=== PATIENT | female | born 1960 | race Caucasian/White ===

== ENCOUNTER → 2016-11-23 | Outpatient (CLI) | payer MEDICARE ==
[~2016-11-23] MED LIST: ABILIFY PO; ACHD5005 PO; ALBUTEROL SULFATE IH; ALPR1T PO; ARIP2TAB10 PO; CHOL200018 PO; DRISDOL PO; DULO60CA6 PO; ESTR1TAB24 PO; ESTROGEN CREAM VG; LEVO175T6 PO; LISI1TAB78 PO; LSNP20T PO; MELO-195 PO; MELO7.5T PO; METH5TAB4 PO; NF-ESOM40C PO; NITR-65 PO; OMEG-12 PO; ONDAN4ODT PO; PNT40TEC PO; POTA10CA43 PO; PRAV80TA2 PO; QUET100T PO; SULF-222 PO; SULF1TAB38 PO; TRAM50TA2 PO; TRAZ150T42 PO; VENL150C PO; VENL75CA PO
--- NOTE | 2016-11-26 20:02 | Diagnostic Imaging Report ---
Bilateral screening mammogram. The current study was also evaluated with a Computer Aided Detection (CAD) system. INDICATION: Screening. No current complaints stated on the questionnaire. COMPARISON: 11/15/15. FINDINGS: The breasts are composed of scattered fibroglandular densities. Occasional benign-appearing calcifications are seen. Allowing for technique and positional differences, no suspicious change is seen. IMPRESSION: No significant change. ACR BI-RADS Category 2: Benign findings. Result letter will be mailed to the patient. Note: At least 10% of breast cancer is not imaged by mammography. Dictated by: Dictated on workstation # [id number]
== END ==
LOC: RAD 10:58
PROVIDERS: ATTEND Nurse Practitioner Community Health
DX: Z12.31 Encounter for screening mammogram for malignant neoplasm of breast (principal)
CPT/HCPCS: 77067

== ENCOUNTER → 2017-05-17 | Outpatient (CLI) | payer MEDICARE, MEDICAID ==
--- NOTE | 2017-05-17 13:17 | Diagnostic Imaging Report ---
PROCEDURE: CT head without contrast. TECHNIQUE: Multiple contiguous axial images were obtained through the brain without the use of intravenous contrast. INDICATION: Fell backwards in bathtub last Saturday. Dizzy. FINDINGS: Ventricles and cortical gyral pattern appear normal. There is no intracranial hemorrhage. There is no mass effect. No extra-axial fluid collections. Bone windows show no calvarial fractures. Mastoid air cells and paranasal sinuses are clear. IMPRESSION: Negative CT head without contrast. Dictated by: Dictated on workstation # [id number]
--- NOTE | 2017-05-20 09:49 | Diagnostic Imaging Report ---
PROCEDURE: US Carotid Duplex Bilateral. TECHNIQUE: Multiple Real-time grayscale images were obtained over the carotid arteries in various projections bilaterally. Additional duplex Doppler and color Doppler images were also obtained. INDICATION: Vertigo. Weakness. FINDINGS: Grayscale images demonstrate focal atherosclerotic plaque along the proximal internal carotid artery on the left side and no significant plaque on the right side. Color Doppler demonstrates patency of the common carotid, internal carotid, and external carotid arteries. Antegrade flow in the vertebral arteries is seen. The peak systolic velocities in the right ICA are 62, 52, and 33 cm/s and, on the left, are 70, 56, and 72 cm/s. The ICA/CCA ratios are up to 0.9 on the right side and up to 1.1 on the left. IMPRESSION: The estimated underlying stenosis is in the range of 0-40% bilaterally. Dictated by: Dictated on workstation # [id number]
== END ==
LOC: RAD 12:34
PROVIDERS: ATTEND Nurse Practitioner Community Health
DX: I65.23 Occlusion and stenosis of bilateral carotid arteries (principal); R42 Dizziness and giddiness; R41.0 Disorientation, unspecified; R53.1 Weakness
CPT/HCPCS: 70450; 93880

== ENCOUNTER 2017-09-27 11:51 | Emergency (ER) | payer MEDICAID, MEDICARE ==
[~2017-09-27] VITALS: Ht 162.6 cm; Wt 90.7 kg
[2017-09-27] MEDS ORDERED: NS IV 1000 ML 1,000 ML IV ONE ×2 (12:26→14:55)
--- NOTE | 2017-09-27 12:55 | ED Head Injury ---
General Chief Complaint: Trauma-Non Activation Stated Complaint: HIGH BP Nursing Triage Note: PT AMBULATES TO ROOM 10 PT STATES B/P ELEVATED, HAS HAD 2 FALLS IN PAST 24HOURS. PT STATES FEELS WEAK AND LETHARGIC. PT DENIES LOC W FALLS, PT HIT FOREHEAD ON COFFEE TABLE. SMALL ABRASION NOTED ON FOREHEAD Source: patient, other (friend) Exam Limitations: no limitations History of Present Illness Date Seen by Provider: Sep 27, 2017 Time Seen by Provider: 12:03 Initial Comments 57-year-old female patient presents to the emergency Department with reports of an elevated blood pressure of 180/90 at home earlier today. Patient has had 2 falls in the last 24 hours. Patient reports rolling over in bed and falling out. Reports hitting her head on the side table/coffee table. The last 4 days has noticed feeling progressively more weak and lethargic with rt arm weakness. Denies numbness, tingling, fever, chest pain, shortness of air. Denies right lower extremity weakness. Friend reports she was across the [place] from the patient. Reports patient has had multiple falls in the last several months. Location Injury Occurred: Home Occurred: other (Four-day onset.) Location: frontal Method of Injury: fell (Fell 2 in the last 24 hours.) Pain/Injuries: Forehead and right eye Loss of Consciousness: no loss of consciousness Allergies and Home Medications Allergies Uncoded Allergies: DYE (Allergy, Unknown, 10/26/14) Home Medications Alprazolam 1 Mg Tablet, 1 PO PRN, (Reported) Aripiprazole 2 Mg Tablet, 2 MG PO DAILY, (Reported) Cholecalciferol (Vitamin D3) 2,000 Unit Capsule, 2,000 UNIT PO DAILY, (Reported) Levothyroxine Sodium 175 Mcg Tablet, 100 MCG PO DAILY, (Reported) Lisinopril/Hydrochlorothiazide 1 Tab Tablet, 1 TAB PO DAILY, (Reported) Meloxicam 7.5 Mg Tablet, 15 MG PO DAILY, (Reported) Methylphenidate Hcl 5 Mg Tablet, 5 MG PO BID, (Reported) [place]-3/Dha/Epa/Fish Oil 1 Each Capsule.dr, 1 EACH PO TID, (Reported) Pantoprazole Sod 40 Mg Tab, 40 MG PO DAILY, (Reported) Potassium Chloride 10 Meq Capsule.sa, 10 MEQ PO DAILY, (Reported) Pravastatin Sodium 80 Mg Tablet, 40 MG PO DAILY, (Reported) Quetiapine Fumarate 100 Mg Tablet, 100 MG PO HS, (Reported) Trazodone Hcl 150 Mg Tablet, 150 MG PO DAILY, (Reported) Trimethoprim/Sulfamethoxazole 1 Ea Tablet, 1 EA PO BID, #14 Prescribed by: MALIA PIÑA on 01/08/151920 Venlafaxine HCl 75 Mg Cap.er.24h, 75 MG PO DAILY, (Reported) Venlafaxine Hcl 150 Mg Cap.sr.24h, 1 EACH PO DAILY, (Reported) [Abilify] , 5 MG PO DAILY, (Reported) [Albuterol Sulfate ] , 90 MCG IH Q6H, (Reported) [Estrogen Cream] , 0.625 MG VG DAILY, (Reported) Constitutional: No chills, No diaphoresis, No dizziness, No fever, malaise, other (fatigue) Eyes: See HPI, Denies Blindness, Denies Blurred Vision, Denies Drainage, Denies Decreased Acuity, Denies Foreign Body Sensation, Denies Inflammation, Pain (inferior to the rt eye.), Denies Photophobia, Denies Vision Changes, Glasses Ears, Nose, Mouth, Throat: denies ear pain, denies ear discharge, denies nose pain, denies mouth pain, denies loose teeth, denies throat pain Respiratory: No cough, No dyspnea on exertion, No hemoptysis, No orthopnea, No phlegm, No short of breath Cardiovascular: No chest pain, No edema, No palpitations, No syncope Gastrointestinal: No abdominal pain, No constipation, No diarrhea, No melena, No nausea, No vomiting Genitourinary: No decreased output, No dysuria, No frequency, No hematuria, No pain Musculoskeletal: No back pain, No joint pain, No neck pain, other (generalized muscle aching) Skin: No change in color, dryness, other (abrasion to the forehead and rt infraorbital ridge.) Psychiatric/Neurological: Cognitive Dysfunction (patient reports feeling "foggy " the last 4 days, but worse today.), Headache, Denies Numbness, Denies [place] Seizures, Denies Tingling, Denies Tonic Clonic Seizures, Denies Unable to Move Lower Ext, Denies Unable to Move Upper Ext, Weakness (weakness of the RUE.) Other (+) dry mouth. All Other Systems Reviewed Negative Unless Noted: Yes (Negative excepted noted.) Past Emxuajt-Erzjks-Yshclv Hx Patient Social History Alcohol Use: Denies Use Recreational Drug Use: No Smoking Status: Former Smoker Recent Foreign Travel: No Contact w/Someone Who Travel: No Recent Infectious Disease Expo: No Recent Hopitalizations: No Physical Abuse: No Sexual Abuse: No Immunizations Up To Date Date of Influenza Vaccine: Jul 26, 2014 Surgeries History of Surgeries: Yes (LT ELBOW REPAIR) Respiratory History of Respiratory Disorde: Yes (HX OF BRONCHITIS) Cardiovascular History of Cardiac Disorders: No Neurological History of Neurological Disord: No 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 Gastrointestinal History of Gastrointestinal Di: No Musculoskeletal History of Musculoskeletal Dis: No Endocrine History of Endocrine Disorders: Yes (PARTIAL THYROID) Psychosocial Suicide Risk Score: 0 Physical Exam Vital Signs Vital Sign - Last 12Hours 09/27/17 12:00 Temp 96.4 Pulse 51 Resp 22 B/P (MAP) 147/90 (109) Pulse Ox 99 Capillary Refill : Less Than 3 Seconds Progress/Results/Core Measures Results/Orders Lab Results Laboratory Tests Test 09/27/17 12:38 09/27/17 13:21 09/27/17 14:08 Range/Units Glucometer 176 H 70-110 MG/DL White Blood Count 11.5 H 4.3-11.0 10^3/uL Red Blood Count 4.45 4.35-5.85 10^6/uL Hemoglobin 14.1 11.5-16.0 G/DL Hematocrit 42 35-52 % Mean Corpuscular Volume 94 80-99 FL Mean Corpuscular Hemoglobin 32 25-34 PG Mean Corpuscular Hemoglobin Concent 34 32-36 G/DL Red Cell Distribution Width 15.1 H 10.0-14.5 % Platelet Count 194 130-400 10^3/uL Mean Platelet Volume 11.1 H 7.4-10.4 FL Neutrophils (%) (Auto) 59 42-75 % Lymphocytes (%) (Auto) 27 12-44 % Monocytes (%) (Auto) 12 0-12 % Eosinophils (%) (Auto) 2 0-10 % Basophils (%) (Auto) 1 0-10 % Neutrophils # (Auto) 6.7 1.8-7.8 X 10^3 Lymphocytes # (Auto) 3.1 1.0-4.0 X 10^3 Monocytes # (Auto) 1.4 H 0.0-1.0 X 10^3 Eosinophils # (Auto) 0.2 0.0-0.3 10^3/uL Basophils # (Auto) 0.1 0.0-0.1 10^3/uL Prothrombin Time 14.2 12.2-14.7 SEC INR Comment 1.1 0.8-1.4 Activated Partial Thromboplast Time 32 24-35 SEC Sodium Level 142 135-145 MMOL/L Potassium Level 3.2 L 3.6-5.0 MMOL/L Chloride Level 110 H 98-107 MMOL/L Carbon Dioxide Level 23 21-32 MMOL/L Anion Gap 9 5-14 MMOL/L Blood Urea Nitrogen 11 7-18 MG/DL Creatinine 1.13 0.60-1.30 MG/DL Estimat Glomerular Filtration Rate 49 BUN/Creatinine Ratio 10 Glucose Level 115 H 70-105 MG/DL Calcium Level 9.0 8.5-10.1 MG/DL Magnesium Level 2.2 1.8-2.4 MG/DL Total Bilirubin 0.4 0.1-1.0 MG/DL Aspartate Amino Transf (AST/SGOT) 11 5-34 U/L Alanine Aminotransferase (ALT/SGPT) < 6 0-55 U/L Alkaline Phosphatase 106 40-136 U/L Total Creatine Kinase 72 29-168 U/L Creatine Kinase MB 1.6 <6.6 NG/ML Myoglobin 70.7 10.0-92.0 NG/ML Troponin I < 0.30 <0.30 NG/ML B-Type Natriuretic Peptide 99.7 <100.0 PG/ML Total Protein 6.8 6.4-8.2 GM/DL Albumin 3.4 3.2-4.5 GM/DL TSH Harris Testing 0.87 0.35-4.94 UIU/ML Acetaminophen Level < 10 L 10-30 UG/ML Serum Alcohol < 10 <10 MG/DL Urine Color YELLOW Urine Clarity CLEAR Urine pH 6.5 5-9 Urine Specific [place] 1.010 L 1.016-1.022 Urine Protein NEGATIVE NEGATIVE Urine Glucose (UA) NEGATIVE NEGATIVE Urine Ketones NEGATIVE NEGATIVE Urine Nitrite NEGATIVE NEGATIVE Urine Bilirubin NEGATIVE NEGATIVE Urine Urobilinogen NORMAL NORMAL MG/DL Urine Leukocyte Esterase NEGATIVE NEGATIVE Urine RBC (Auto) 1+ H NEGATIVE Urine RBC NONE /HPF Urine WBC NONE /HPF Urine Squamous Epithelial Cells 5-10 /HPF Urine Crystals NONE /LPF Urine Bacteria NEGATIVE /HPF Urine Casts NONE /LPF Urine Mucus NEGATIVE /LPF Urine Culture Indicated NO Urine Opiates Screen NEGATIVE NEGATIVE Urine Oxycodone Screen NEGATIVE NEGATIVE Urine Methadone Screen NEGATIVE NEGATIVE Urine Propoxyphene Screen NEGATIVE NEGATIVE Urine Barbiturates Screen NEGATIVE NEGATIVE Ur Tricyclic Antidepressants Screen NEGATIVE NEGATIVE Urine Phencyclidine Screen NEGATIVE NEGATIVE Urine Amphetamines Screen NEGATIVE NEGATIVE Urine Methamphetamines Screen NEGATIVE NEGATIVE Urine Benzodiazepines Screen NEGATIVE NEGATIVE Urine Cocaine Screen NEGATIVE NEGATIVE Urine Cannabinoids Screen POSITIVE H NEGATIVE My Orders Orders - JIMBO TEJEDA PA Ct Head/Face/Cervical Wo (09/27/17 12:26) Accucheck Stat ONCE (09/27/17 12:26) Saline Lock/Iv-Start (09/27/17 12:26) Ekg Tracing (09/27/17 12:26) Monitor-Rhythm Ecg Trace Only (09/27/17 12:26) Chest 1 View, Ap/Pa Only (09/27/17 12:26) Ns Iv 1000 Ml (Sodium Chloride 0.9%) (09/27/17 12:26) Acetaminophen (09/27/17 12:26) Alcohol (09/27/17 12:26) BNP (09/27/17 12:26) Cbc With Automated Diff (09/27/17 12:26) Comprehensive Metabolic Panel (09/27/17 12:26) Creatine Kinase (09/27/17 12:26) Creatine Kinase Mb (09/27/17 12:26) Drug Screen Stat (Urine) (09/27/17 12:26) Magnesium (09/27/17 12:26) Protime With Inr (09/27/17 12:26) Partial Thromboplastin Time (09/27/17 12:26) Thyroid Analyzer (09/27/17 12:26) Troponin I (09/27/17 12:26) Ua Culture If Indicated (09/27/17 12:26) Myoglobin Serum (09/27/17 12:26) Ns Iv 1000 Ml (Sodium Chloride 0.9%) (09/27/17 14:55) Ns W/Kcl 20 Meq/L (Ns Iv W/Kcl 20 Meq/L) (09/27/17 15:14) Medications Given in ED Current Medications Medications Dose Ordered Sig/Dino Route Start Time Stop Time Status Last Admin Dose Admin Potassium Chloride/Sodium Chloride 1,000 ml @ ud STK-MED ONCE IV 09/27/17 15:14 09/27/17 15:16 DC 09/27/17 15:17 1,000 MLS/HR Sodium Chloride 1,000 ml @ 0 mls/hr Q0M ONCE IV 09/27/17 12:26 09/27/17 12:29 DC 09/27/17 12:44 1,000 MLS/HR Vital Signs/I&O Vital Sign - Last 12Hours 09/27/17 12:00 Temp 96.4 Pulse 51 Resp 22 B/P (MAP) 147/90 (109) Pulse Ox 99 Blood Pressure Mean: 109 Point of Care Testing Finger Stick Blood Glucose: 176 Departure Communication (Admissions) Progress Notes patient case discussed with Dr. Taylor. Impression Impression: Primary Impression: Minor head injury without loss of consciousness Additional Impressions: Multiple falls Volume depletion Marijuana use Essential hypertension History of difficulty sleeping Disposition: HOME, SELF-CARE Condition: Improved Departure-Patient Inst. Decision time for Depature: 18:07 Referrals: TONE IGNACIO DO (PCP) Primary Care Physician 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 (Family) Primary Care Physician Patient Instructions: Dehydration, Adult (DC), Minor Head Injury (DC), Preventing Falls, Preventing Falls in the Older Adult Add. Discharge Instructions: All discharge instructions reviewed with patient and/or family. Voiced understanding. Tylenol over the counter as directed for pain. Continue usual home medications. Avoid standing or walking quickly. Drink plenty of fluids. [facility] tomorrow or Saturday for recheck. Your doctors may want to decrease the amount of sedating mediations that you take to decrease your risk of falling. Ice packs as needed for pain for 2-3 days. then use a heating pad or pack as needed. Return to the emergency department for worsened pain, headache, dizziness, fever, vomiting, changes in behavior, slurred speech, numbness, weakness, neck pain, back pain, seizure, or any other concerns. JIMBO TEJEDA Sep 27, 2017 12:55
--- NOTE | 2017-09-27 13:17 | Diagnostic Imaging Report ---
PROCEDURE: CT head, face, and cervical spine without contrast. TECHNIQUE: Multiple contiguous axial images were obtained through the head, neck, and facial bones without the use of intravenous contrast. Sagittal and coronal reformations through the cervical spine and facial bones were also performed. INDICATION: Fall with head, face and neck injury. CT BRAIN: The ventricles and sulci are within normal limits. No sulcal effacement, midline shift or hemorrhage is detected. Cisterns are patent. IMPRESSION: No acute intracranial process is detected. CT MAXILLOFACIAL: The mandible is intact. Zygomatic arches are intact. The maxillary sinus gore are intact. No nasal bone fracture is detected. The orbital gore are unremarkable. Both globes are unremarkable. IMPRESSION: No evidence of facial bone fracture. CT CERVICAL SPINE: There is some straightening of the normal cervical lordotic curvature. There is multilevel degenerative disc disease, greatest C5-6 and C6-7 levels, with disc space narrowing and marginal spurring. No fractures are identified. The odontoid is intact. Prevertebral tissues are normal. IMPRESSION: Cervical spondylosis. No acute bony abnormality is detected. Dictated by: Dictated on workstation # [id number]
--- NOTE | 2017-09-27 13:27 | Diagnostic Imaging Report ---
INDICATION: Fall. TIME OF EXAM: 1:03 p.m. COMPARISON: Comparison is made with prior study from 09/11/2010. FINDINGS: Heart size is stable. Calcified lymph nodes in the claire are noted consistent with prior granulomatous exposure. No infiltrates are seen. No effusion or pneumothorax is identified. IMPRESSION: No acute cardiopulmonary process is detected. Dictated by: Dictated on workstation # [id number]
[2017-09-27 13:33] LABS: BASOPHILS # (AUTO) 0.1 10^3/uL (0.0-0.1); BASOPHILS % (AUTO) 1 % (0-10); EOSINOPHILS # (AUTO) 0.2 10^3/uL (0.0-0.3); EOSINOPHILS % (AUTO) 2 % (0-10); HEMATOCRIT 42 % (35-52); HEMOGLOBIN 14.1 G/DL (11.5-16.0); LYMPHOCYTES # (AUTO) 3.1 X 10^3 (1.0-4.0); LYMPHOCYTES % (AUTO) 27 % (12-44); MEAN CORPUSCULAR HEMOGLOBIN 32 PG (25-34); MEAN CORPUSCULAR HGB CONC 34 G/DL (32-36); MEAN CORPUSCULAR VOLUME 94 FL (80-99); MEAN PLATELET VOLUME 11.1 FL (7.4-10.4); MONOCYTES # (AUTO) 1.4 X 10^3 (0.0-1.0); MONOCYTES % (AUTO) 12 % (0-12); NEUTROPHILS # (AUTO) 6.7 X 10^3 (1.8-7.8); NEUTROPHILS % (AUTO) 59 % (42-75); PLATELET COUNT 194 10^3/uL (130-400); RED BLOOD COUNT 4.45 10^6/uL (4.35-5.85); RED CELL DISTRIBUTION WIDTH 15.1 % (10.0-14.5); WHITE BLOOD COUNT 11.5 10^3/uL (4.3-11.0)
[2017-09-27 13:44] LABS: INR 1.1 (0.8-1.4); PROTHROMBIN TIME PATIENT 14.2 SEC (12.2-14.7)
[2017-09-27 13:52] LABS: ALANINE AMINOTRANSFERASE < 6 U/L (0-55); ALBUMIN 3.4 GM/DL (3.2-4.5); ALKALINE PHOSPHATASE 106 U/L (40-136); BILIRUBIN,TOTAL 0.4 MG/DL (0.1-1.0); BUN/CREATININE RATIO 10; CARBON DIOXIDE 23 MMOL/L (21-32); CHLORIDE 110 MMOL/L (98-107); CREATINE KINASE 72 U/L (29-168); CREATININE SERUM 1.13 MG/DL (0.60-1.30); GFR ESTIMATED 49; GLUCOSE 115 MG/DL (70-105); MAGNESIUM 2.2 MG/DL (1.8-2.4); POTASSIUM 3.2 MMOL/L (3.6-5.0); SODIUM 142 MMOL/L (135-145); TOTAL PROTEIN 6.8 GM/DL (6.4-8.2)
[2017-09-27 14:07] LABS: ACETAMINOPHEN < 10 UG/ML (10-30)
[2017-09-27 14:12] LABS: CREATINE KINASE MB 1.6 NG/ML (<6.6); MYOGLOBIN SERUM 70.7 NG/ML (10.0-92.0); TSH (THYROID ANALYZER) 0.87 UIU/ML (0.35-4.94)
[2017-09-27 14:18] LABS: BILIRUBIN,URINE NEGATIVE (NEGATIVE); CLARITY,URINE CLEAR; COLOR,URINE YELLOW; GLUCOSE, URINE (UA) NEGATIVE (NEGATIVE); KETONES,URINE NEGATIVE (NEGATIVE); LEUKOCYTE ESTERASE ,URINE NEGATIVE (NEGATIVE); NITRITE,URINE NEGATIVE (NEGATIVE); PH,URINE 6.5 (5-9); PROTEIN,URINE NEGATIVE (NEGATIVE); UROBILINOGEN,URINE NORMAL (NORMAL)
[2017-09-27 14:34] LABS: AMPHETAMINE SCREEN, URINE NEGATIVE (NEGATIVE); BARBITURATE SCREEN URINE NEGATIVE (NEGATIVE); BENZODIAZEPINES SCREEN URINE NEGATIVE (NEGATIVE); CANNABINOID SCREEN, URINE POSITIVE (NEGATIVE); COCAINE SCREEN URINE NEGATIVE (NEGATIVE); METHAMPHETAMINE SCREEN URINE S NEGATIVE (NEGATIVE); OPIATE SCREEN URINE NEGATIVE (NEGATIVE); TRICYCLIC ANTIDEPRESSANTS SCRE NEGATIVE (NEGATIVE)
[2017-09-27 14:35] LABS: METHADONE STAT NEGATIVE (NEGATIVE); OXYCODONE STAT NEGATIVE (NEGATIVE); PROPOXYPHENE STAT NEGATIVE (NEGATIVE)
[2017-09-27 14:52] LABS: BACTERIA,URINE NEGATIVE /HPF
[2017-09-27] MEDS ORDERED: NS W/KCL 20 MEQ/L 1,000 ML IV ONE (15:14)
[2017-09-27 18:27] VITALS: BP 147/90
--- OUTSIDE RECORDS SUMMARY | 2017-09-29 06:23 | XMS REPORT ---
Author Author BILLY LAWRENCE Organization [employer] Address Unknown Phone Unavailable Care Team Providers Care Account Development Specialist Name Role Phone BILLY LAWRENCE Unavailable Allergies No Known Allergies Problems Problem Type Condition ICD-9 Code Onset Dates Condition Status Problem Chronic hepatitis C without mention of hepatic coma 070.54 Active Problem Major depressive disorder, recurrent episode, mild 296.31 Active Problem 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, chronic, without mention of hepatitis delta 070.32 Active Problem Attention deficit disorder of childhood without mention of hyperactivity 314.00 Active Problem Hypertension 401.9 Active Problem Lumbago 724.2 Active Problem Unspecified vitamin D deficiency 268.9 Active Problem Unspecified sleep apnea 780.57 Active Problem Major depressive disorder, recurrent episode, moderate 296.32 Active Medications Medication Code System Code Instructions Start Date End Date Status Dosage Ritalin [facility] [address]-97 20 MG Orally Twice a day November 17, 2014 1 tablet Results No Known Results Summary Purpose [employer] Submission
--- OUTSIDE RECORDS SUMMARY | 2017-09-29 06:23 | XMS REPORT ---
Author Author BILLY LAWRENCE Organization [employer] Address Unknown Phone Unavailable Care Team Providers Care Motor Coach Operator Name Role Phone BILLY LAWRENCE Unavailable Allergies No Known Allergies Problems Problem Type Condition Code Onset Dates Condition Status Problem Chronic [...] Start Date End Date Status Dosage Ritalin [facility] [address]-43 20 MG Orally Twice a day Purvi to sign for Osmar November 17, 2014 1 tablet Results No Known Results Summary Purpose [employer] Submission
--- OUTSIDE RECORDS SUMMARY | 2017-09-29 06:23 | XMS REPORT ---
Author Author 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 [facility] [employer] Address Unknown Phone Unavailable Care Team Providers Care Mine Development Engineer Name Role Phone 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 CP Unavailable Allergies No Known Allergies Problems Problem Type Condition Code Onset Dates Condition Status Problem Neuralgia M79.2 Active Problem Chronic hepatitis K73.9 Active Problem Primary osteoarthritis of both knees M17.0 Active Problem Depression, major, recurrent, mild F33.0 Active Problem Insomnia G47.00 Active Problem Low back pain M54.5 Active Problem Hyperlipidemia E78.5 Active Problem Hypertension I10 Active Problem Hypothyroidism, unspecified type E03.9 Active Problem ADD (attention deficit disorder) F90.0 Active Assessment Hypothyroid E03.9 Active Assessment Chronic hepatitis K73.9 Active Problem Lumbago 724.2 Active Problem Unspecified sleep apnea 780.57 Active Problem Chronic hepatitis C without mention of hepatic coma 070.54 Active Problem 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, chronic, without mention of hepatitis delta 070.32 Active Problem Unspecified vitamin D deficiency 268.9 Active Problem Hypertension 401.9 Active Medications No Known Medications Procedures Procedure Coding System Code Date LAB NOT BILLED BY [facility] CPT-4 NOBLL Jul 17, 2016 VENIPUNCT, ROUTINE* CPT-4 11406 Jul 17, 2016 HEPATITIS B, DNA, QUANT CPT-4 26590 Jul 17, 2016 Results Name Result Date Reference Range Unit Abnormality Flag HEP B DNA QUANT ----HBV IU/mL HBV DNA not detected [id number] IU/mL ----log10 HBV IU/mL TNP [id number]/mL ROUTINE VENIPUNCTURE TSH ----TSH 0.122 [id number] 0.450-4.500 uIU/mL L Summary Purpose [employer] Submission
--- OUTSIDE RECORDS SUMMARY | 2017-09-29 06:23 | XMS REPORT ---
Author Author NORMAN CARDOSO Organization [employer] Address Unknown Phone Unavailable Care Team Providers Care Electric Range Preparer Name Role Phone NORMAN CARDOSO CP Unavailable Allergies No Known Allergies Problems Problem Type Condition Code Onset Dates Condition Status Problem Unspecified vitamin D deficiency 268.9 Active Problem Major depressive disorder, recurrent episode, moderate 296.32 Active Problem Lumbago 724.2 Active Problem Major depressive disorder, recurrent episode, mild 296.31 Active Problem Chronic hepatitis C without mention of hepatic coma 070.54 Active Problem Primary osteoarthritis of both knees M17.0 Active Problem Neuralgia M79.2 Active Problem Chronic hepatitis K73.9 Active Problem Attention deficit disorder of childhood without mention of hyperactivity 314.00 Active Problem Unspecified sleep apnea 780.57 Active Problem Hypertension 401.9 Active Problem 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, chronic, without mention of hepatitis delta 070.32 Active Medications Medication Code System Code Instructions Start Date End Date Status Dosage Alprazolam [facility] [address]-25 0.5 MG Orally Three times a day prn ANXIETY must last 30 days NO EARLY REFILL TAKE ONE TABLET Results No Known Results Summary Purpose [employer] Submission
--- OUTSIDE RECORDS SUMMARY | 2017-09-29 06:23 | XMS REPORT ---
Author Author 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 Organization [facility] Address [address] [place] [address] Care Team Providers Care Electrical Design Technologist Name Role Phone 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 Unavailable PROBLEMS Type Condition ICD9-CM Code [id number] Code Onset Dates Condition Status SNOMED Code Problem Hypothyroid E03.9 Active 98191809 Problem 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 Active 73042848 Problem Obesity due to excess calories, unspecified obesity severity E66.09 Active 274993746 Problem Generalized anxiety disorder F41.1 Active 65162595 Problem Major depressive disorder, recurrent episode, moderate F33.1 Active 998455078 Problem Major depressive disorder, recurrent, mild F33.0 Active 34063494 Problem Obstructive sleep apnea G47.33 Active 94364021 Problem Restless legs G25.81 Active 44608124 Problem Attention-deficit hyperactivity disorder, predominantly inattentive type F90.0 Active 09454307 Problem Chronic hepatitis K73.9 Active 48638949 Problem Neuralgia M79.2 Active 27831018 Problem Folic acid deficiency E53.8 Active 424069428 Problem Primary osteoarthritis of both knees M17.0 Active 618517390 Problem Insomnia G47.00 Active 957350095 Problem Depression, major, recurrent, mild F33.0 Active 939400873 Problem Hypertension I10 Active 22219900 Problem Low back pain M54.5 Active 243257125 Problem Hyperlipidemia E78.5 Active 15441809 Problem Chronic viral hepatitis B without delta-agent B18.1 Active 955982061 ALLERGIES No Information SOCIAL HISTORY Never Assessed PLAN OF CARE VITAL SIGNS MEDICATIONS Unknown Medications RESULTS Name Result Date Reference Range TSH 2016-11-23 TSH 3.820 0.450-4.500 PROCEDURES Procedure Date Ordered Result Body Site LAB NOT BILLED BY [facility] November 23, 2016 VENIPUNCT, ROUTINE* November 23, 2016 IMMUNIZATIONS No Known Immunizations MEDICAL (GENERAL) HISTORY Type Description Date Medical History hypertension Medical History hyperlipidemia Medical History Hypothyroidism Medical History Arthritis Medical History chronic pain-OA left knee, lower back pain Medical History anxiety Medical History hepatitis B-dx 08/2014 Medical History asymptomatic postmenopausal status Medical History Eye exam 05/2015 sarah cataracts Surgical History orthopedic surgery-pin placed in right great toe Surgical History hysterectomy-[facility]/BSO for endometriosis Surgical History thyroid surgery-tumor removed (benign) Surgical History b/l knee scope Surgical History 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
--- OUTSIDE RECORDS SUMMARY | 2017-09-29 06:23 | XMS REPORT ---
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, chronic, without mention of hepatitis delta 070.32 Active Problem Neuralgia M79.2 Active Problem Hypertension 401.9 Active Problem Hypothyroidism, unspecified type E03.9 Active Problem ADD (attention deficit disorder) F90.0 Active Problem Insomnia G47.00 Active Problem Chronic hepatitis K73.9 Active Problem Primary osteoarthritis of both knees M17.0 Active Problem Hyperlipidemia E78.5 Active Problem Hypertension I10 Active Assessment Low back pain M54.5 Active Problem Major depressive disorder, recurrent episode, mild 296.31 Active Problem Lumbago 724.2 Active Problem Major depressive disorder, recurrent episode, moderate 296.32 Active Problem Chronic hepatitis C without mention of hepatic coma 070.54 Active Problem Unspecified sleep apnea 780.57 Active Problem Unspecified vitamin D deficiency 268.9 Active Problem Attention deficit disorder of childhood without mention of hyperactivity 314.00 Active Medications No Known Medications Procedures Procedure Coding System Code Date THERAPEUTIC EXERCISES CPT-4 71770 March 27, 2016 PT EVALUATION CPT-4 92668 March 27, 2016 Results No Known Results Summary Purpose eClinicalWorks Submission
--- OUTSIDE RECORDS SUMMARY | 2017-09-29 06:23 | XMS REPORT ---
Author THEODORA García Organization [employer] Address Unknown Phone Unavailable Care Team Providers Care Director Of Property Management Name Role Phone THEODORA SHINE CP Unavailable Allergies No Known Allergies Problems [...] E78.5 Active Problem Hypertension I10 Active Problem Chronic hepatitis C without mention of hepatic coma 070.54 Active Problem Unspecified vitamin D deficiency 268.9 Active Problem Lumbago 724.2 Active Problem Unspecified sleep apnea 780.57 Active Medications Medication Code System Code Instructions Start Date End Date Status Dosage Hydrocodone-Acetaminophen [facility] [address]-16 10-325 MG Orally 2 times a day March 15, 2016 1 tablet Results No Known Results Summary Purpose eClinicalWorks Submission
--- OUTSIDE RECORDS SUMMARY | 2017-09-29 06:23 | XMS REPORT ---
Author Author GUSTAVO COLEMAN Organization [facility] Address [address] [place] [address] Care Team Providers Care Attendance Secretary Name Role Phone GUSTAVO COLEMAN Unavailable PROBLEMS Type Condition ICD9-CM Code [id number] Code Onset Dates Condition Status SNOMED Code Problem Hypertension 401.9 Active 56573567 Problem Primary osteoarthritis of both knees M17.0 Active 548894240 Problem Neuralgia M79.2 Active 47711946 Problem Insomnia G47.00 Active 197321999 Problem Hypothyroidism, unspecified type E03.9 Active 24030678 Problem Hypertension I10 Active 01504278 Problem Chronic hepatitis K73.9 Active 12389862 Problem ADD (attention deficit disorder) F90.0 Active 251367564 Problem Hyperlipidemia E78.5 Active 16889061 Assessment Generalized anxiety disorder F41.1 May, Active 24825269 Problem Unspecified vitamin D deficiency 268.9 Active 59955640 Problem Lumbago 724.2 Active 053922976 Assessment Major depressive disorder, recurrent, moderate F33.1 May, Active 56125197 Problem Unspecified sleep apnea 780.57 Active 58519790 Problem Chronic hepatitis C without mention of hepatic coma 070.54 Active 559590280 Problem 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, chronic, without mention of hepatitis delta 070.32 Active 783559013 ALLERGIES Substance Reaction Event Type Date Status Trazodone HCl "weird dreams" Drug Allergy May, Active SOCIAL HISTORY No smoking Hx information available PLAN OF CARE VITAL SIGNS Height 64 in 2016-05-03 Weight 202.0 lbs 2016-05-03 Heart Rate 64 bpm 2016-05-03 Respiratory Rate 18 2016-05-03 BMI 34.67 kg/m2 2016-05-03 Blood pressure systolic 108 mmHg 2016-05-03 Blood pressure diastolic 72 mmHg 2016-05-03 MEDICATIONS Medication Instructions Dosage Frequency Start Date End Date Duration Status Fish Oil 1000 MG Orally 3 times a day 1 capsule 8h Active Requip 1 MG Orally Once a day 1 tablet 1 to 3 hours before bedtime 24h 90 Active Toprol XL 100 MG Orally Once a day 1 tablet at bedtime 24h 23 Jan, 2016 90 day(s) Active Albuterol Sulfate 90 mcg/actuation 2 puffs by Inhalation route every 4-6 hours as needed PRN cough or wheezing Aug, Active Effexor XR 150 MG Orally Once a day 2 capsule with food 24h Active Truvada 200-300 MG TAKE ONE TABLET BY MOUTH DAILY 90 Active Loratadine 10 mg Orally Once a day as needed for allergies 1 tablet Apr, Active Ritalin 10 mg Orally daily 1 tablet in am and 1 tab before 3pm 24h 18 Oct, 2014 Active Levothyroxine Sodium 125 MCG Orally Once a day 1 tablet 24h 30 days Active Pravastatin Sodium 80 MG TAKE ONE TABLET BY MOUTH AT BEDTIME (AVOID GRAPEFRUIT JUICE AND PRODUCTS WITH GRAPEFRUIT) 90 Active Hydrocodone-Acetaminophen 10-325 MG Orally 2 times a day 1 tablet 12h 14 Mar, 2016 Active Alprazolam 0.5 MG Orally Three times a day prn ANXIETY TAKE ONE TABLET Active Lisinopril 20 MG Orally Once a day 1 tablet 24h 30 Active Pantoprazole Sodium 40 MG Orally Once a day 1 tablet 24h 90 Active RESULTS No Results PROCEDURES Procedure Date Ordered Related Diagnosis Body Site [facility] VISIT ESTABLISHED PATIENT May 03, 2016 Office Visit, Justyna Pt., Level 3 May 03, 2016 IMMUNIZATIONS No Known Immunizations
--- OUTSIDE RECORDS SUMMARY | 2017-09-29 06:24 | XMS REPORT ---
Author Author 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 Organization [employer] Address Unknown Phone Unavailable Care Team Providers Care Filling Layer Up Name Role Phone 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 CP Unavailable [...] Instructions Start Date End Date Status Dosage Pantoprazole Sodium [facility] [address]-41 40 MG Orally Once a day 1 tablet Results No Known Results Summary Purpose eClinicalWorks Submission
--- OUTSIDE RECORDS SUMMARY | 2017-09-29 06:24 | XMS REPORT ---
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
--- OUTSIDE RECORDS SUMMARY | 2017-09-29 06:24 | XMS REPORT ---
Author Author TAYOLR CARVAJAL Organization [employer] Address Unknown Phone Unavailable Care Team Providers Care Retail Management Trainee Name Role Phone TAYLOR CARVAJAL CP Unavailable Allergies No Known Allergies Problems [...] Start Date End Date Status Dosage Alprazolam [facility] [address]-58 0.5 MG Orally Three times a day prn ANXIETY must last 30 days NO EARLY REFILL TAKE ONE TABLET Ambien CR [facility] [address]-36 12.5 MG Orally Once a day Aug 16, 2015 1 tablet at bedtime as needed Venlafaxine HCl ER [facility] [address]-84 150 MG TAKE ONE CAPSULE BY MOUTH ONCE DAILY WITH FOOD Results No Known Results Summary Purpose eClinicalWorks Submission
--- OUTSIDE RECORDS SUMMARY | 2017-09-29 06:24 | XMS REPORT ---
Author Author 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 [facility] Address [address] [place] [address] Care Team Providers Care Electoral Officer Name Role Phone 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 Unavailable PROBLEMS Type Condition ICD9-CM Code [id number] Code Onset Dates Condition Status SNOMED Code Problem Hypothyroid E03.9 Active 06683390 Problem 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 Active 63029850 Problem Obesity due to excess calories, unspecified obesity severity E66.09 Active 828656376 Problem Generalized anxiety disorder F41.1 Active 62152853 Problem Major depressive disorder, recurrent episode, moderate F33.1 Active 855419403 Problem Major depressive disorder, recurrent, mild F33.0 Active 36393368 Problem Obstructive sleep apnea G47.33 Active 48456897 Problem Restless legs G25.81 Active 19794803 Problem Attention-deficit hyperactivity disorder, predominantly inattentive type F90.0 Active 47948546 Problem Chronic hepatitis K73.9 Active 79454328 Problem Neuralgia M79.2 Active 04150656 Problem Folic acid deficiency E53.8 Active 001012495 Problem Primary osteoarthritis of both knees M17.0 Active 307546847 Problem Insomnia G47.00 Active 910828889 Problem Depression, major, recurrent, mild F33.0 Active 370995174 Problem Hypertension I10 Active 95238068 Problem Low back pain M54.5 Active 156623461 Problem Hyperlipidemia E78.5 Active 15796882 Problem Chronic viral hepatitis B without delta-agent B18.1 Active 930029703 ALLERGIES No Information SOCIAL HISTORY Never Assessed PLAN OF CARE VITAL SIGNS MEDICATIONS Medication Instructions Dosage Frequency Start Date End Date Duration Status Folic Acid 1 MG Orally Once a day 1 tablet 24h December, December, 90 days Active RESULTS No Results PROCEDURES No Known procedures IMMUNIZATIONS No Known Immunizations MEDICAL (GENERAL) HISTORY [...]
--- OUTSIDE RECORDS SUMMARY | 2017-09-29 06:24 | XMS REPORT ---
Author Author GUSTAVO COLEMAN Organization [employer] Address Unknown Phone Unavailable Care Team Providers Care Enterprise Applications Manager Name Role Phone GUSTAVO COLEMAN CP Unavailable Allergies No Known Allergies Problems [...] E78.5 Active Problem Hypertension I10 Active Problem Major depressive disorder, recurrent episode, mild 296.31 Active Problem Lumbago 724.2 Active Problem Major depressive disorder, recurrent episode, moderate 296.32 Active Problem Chronic hepatitis C without mention of hepatic coma 070.54 Active Problem Unspecified sleep apnea 780.57 Active Problem Unspecified vitamin D deficiency 268.9 Active Problem Attention deficit disorder of childhood without mention of hyperactivity 314.00 Active Medications Medication Code System Code Instructions Start Date End Date Status Dosage Ritalin [facility] [address]-64 10 mg Orally daily November 17, 2014 1 tablet in am and 1 tab before 3pm Results No Known Results Summary Purpose eClinicalWorks Submission
--- OUTSIDE RECORDS SUMMARY | 2017-09-29 06:24 | XMS REPORT ---
Author Author 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 Organization [facility] Address [address] [place] [address] Care Team Providers Care Storage Battery Inspector Name Role Phone 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 Unavailable PROBLEMS Type Condition ICD9-CM Code [id number] Code Onset Dates Condition Status SNOMED Code Problem Hypothyroid E03.9 Active 40469822 Problem 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 Active 09035552 Problem Obesity due to excess calories, unspecified obesity severity E66.09 Active 411498663 Problem Generalized anxiety disorder F41.1 Active 75106091 Problem Major depressive disorder, recurrent episode, moderate F33.1 Active 032037344 Problem Major depressive disorder, recurrent, mild F33.0 Active 24842900 Problem Obstructive sleep apnea G47.33 Active 15323605 Problem Restless legs G25.81 Active 97603266 Problem Attention-deficit hyperactivity disorder, predominantly inattentive type F90.0 Active 48008476 Problem Chronic hepatitis K73.9 Active 70575847 Problem Neuralgia M79.2 Active 08708747 Problem Folic acid deficiency E53.8 Active 571889461 Problem Primary osteoarthritis of both knees M17.0 Active 782265905 Problem Insomnia G47.00 Active 479678160 Problem Depression, major, recurrent, mild F33.0 Active 013341821 Problem Hypertension I10 Active 47580220 Problem Low back pain M54.5 Active 888099386 Problem Hyperlipidemia E78.5 Active 69758899 Problem Chronic viral hepatitis B without delta-agent B18.1 Active 469162649 ALLERGIES No Information SOCIAL HISTORY Never Assessed PLAN OF CARE VITAL SIGNS MEDICATIONS Unknown Medications RESULTS No Results PROCEDURES No Known procedures [...]
--- OUTSIDE RECORDS SUMMARY | 2017-09-29 06:24 | XMS REPORT ---
Author Author GUSTAVO COLEMAN Organization [employer] Address Unknown Phone Unavailable Care Team Providers Care Food Preservation Scientist Name Role Phone GUSTAVO COLEMAN CP Unavailable [...] Instructions Start Date End Date Status Dosage Methylphenidate HCl [facility] [address]-48 10 mg Orally Twice a day 1 tablet Results No Known Results Summary Purpose eClinicalWorks Submission
--- OUTSIDE RECORDS SUMMARY | 2017-09-29 06:24 | XMS REPORT ---
Author CHAPITO Melo Organization [employer] Address Unknown Phone Unavailable Care Team Providers Care Pewter Finisher Name Role Phone CHAPITO VINSON CP Unavailable [...] Coding System Code Date THERAPEUTIC EXERCISES CPT-4 43121 Jun 19, 2016 Results No Known Results Summary Purpose eClinicalWorks Submission
--- OUTSIDE RECORDS SUMMARY | 2017-09-29 06:24 | XMS REPORT ---
Author TAYLOR Hurd [facility] [employer]ClinicalWorks Address Unknown Phone Unavailable Care Team Providers Care Letterer Name Role Phone TAYLOR CARVAJAL CP Unavailable Allergies, Adverse Reactions, Alerts Substance Reaction Event Type N.K.D.A. Info Not Available Non Drug Allergy Problems Problem Type Condition Code Onset Dates [...] E78.5 Active Problem Hypertension I10 Active Assessment Major depressive disorder, recurrent episode, mild 296.31 Active Problem Major depressive disorder, recurrent episode, mild 296.31 Active Assessment Hyperlipidemia E78.5 Active Assessment ADD (attention deficit disorder) F90.0 Active Problem Lumbago 724.2 Active Problem Major depressive disorder, recurrent episode, moderate 296.32 Active Problem Chronic hepatitis C without mention of hepatic coma 070.54 Active Problem Unspecified sleep apnea 780.57 Active Problem Unspecified vitamin D deficiency 268.9 Active Problem Attention deficit disorder of childhood without mention of hyperactivity 314.00 Active Medications Medication Code System Code Instructions Start Date End Date Status Dosage Truvada [facility] [id number] 200-300 MG TAKE ONE TABLET BY MOUTH DAILY Venlafaxine HCl ER [facility] [address]-93 150 MG TAKE ONE CAPSULE BY MOUTH ONCE DAILY WITH FOOD Rexulti [facility] [address]-57 0.5 MG Orally Once a day Sep 16, 2015 1 tablet Alprazolam [facility] [address]-11 0.5 MG Orally Three times a day prn ANXIETY TAKE ONE TABLET Fish Oil [facility] [address]-20 1000 MG Orally 3 times a day 1 capsule Ritalin [facility] [address]-08 20 mg Orally Twice a day November 17, 2014 1 tablet Pravastatin Sodium [facility] [address]-34 80 MG Orally Once a day TAKE ONE TABLET BY MOUTH DAILY AT BEDTIME (AVOID GRAPEFRUIT JUICE AND PRODUCTS WITH GRAPEFRUIT) Zaleplon [facility] [address]-32 5 MG Orally Once a day December 07, 2015 1 capsule at bedtime as needed Lisinopril [facility] 66295089712 20 MG Orally Once a day 1 tablet Cholecalciferol [facility] [address]-45 2000 UNIT Orally Once a day 1 capsule Albuterol Sulfate [facility] [address]-42 90 mcg/actuation Aug 24, 2014 2 puffs by Inhalation route every 4-6 hours as needed PRN cough or wheezing Levothyroxine Sodium [facility] [address]-07 100 MCG Orally Once a day 1 tablet Requip [facility] [address]-37 1 MG Orally Once a day November 08, 2015 1 tablet 1 to 3 hours before bedtime Xyzal [facility] [address]-44 5 mg November 09, 2014 1 tablet by Oral route 1 time per day PRN prn cough Effexor XR [facility] [address]-40 75 MG TAKE ONE CAPSULE BY MOUTH ONCE DAILY WITH FOOD Toprol XL [facility] [address]-32 100 MG Orally Once a day at hs LAST REFILL PT MUST HAVE AN APPT November 17, 2014 take 1 tablet by Oral route 2 times a day Pantoprazole Sodium [facility] [address]-86 40 MG Orally Once a day 1 tablet Procedures Procedure Coding System Code Date Office Visit, Est Pt., Level 2 CPT-4 35021 December 16, 2015 [facility] VISIT ESTABLISHED PATIENT CPT-4 G0467 December 16, 2015 Vital Signs Date/Time: December 16, 2015 Temperature 98.0 F Weight 197 lbs Height 64 in BMI 33.81 Index Blood Pressure Diastolic 72 mmHg Blood Pressure Systolic 120 mmHg Cardiac Monitoring Heart Rate 70 bpm Results No Known Results Summary Purpose eClinicalWorks Submission
--- OUTSIDE RECORDS SUMMARY | 2017-09-29 06:24 | XMS REPORT ---
Author Author NORMAN CARDOSO Organization [employer]Works Address Unknown Phone Unavailable Care Team Providers Care College Archivist Name Role Phone NORMAN CARDOSO CP Unavailable [...] Start Date End Date Status Dosage Ritalin [facility] [address]-36 20 MG Orally Twice a day November 17, 2014 1 tablet Results No Known Results Summary Purpose eClinicalWorks Submission
--- OUTSIDE RECORDS SUMMARY | 2017-09-29 06:24 | XMS REPORT ---
Author Author NORMAN CARDOSO Organization [employer] Address Unknown Phone Unavailable Care Team Providers Care Internet Project Manager Name Role Phone NORMAN CARDOSO CP Unavailable [...] Start Date End Date Status Dosage Ritalin [facility] [address]-08 20 MG Orally Twice a day November 17, 2014 1 tablet Results No Known Results Summary Purpose eClinicalWorks Submission
--- OUTSIDE RECORDS SUMMARY | 2017-09-29 06:24 | XMS REPORT ---
Author Author 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 Organization [facility] Address [address] [place] [address] Care Team Providers Care Front Desk Assistant Name Role Phone 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 Unavailable PROBLEMS Type Condition ICD9-CM Code [id number] Code Onset Dates Condition Status SNOMED Code Problem Hypothyroid E03.9 Active 53332803 Problem 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 Active 95718503 Problem Obesity due to excess calories, unspecified obesity severity E66.09 Active 889419230 Problem Generalized anxiety disorder F41.1 Active 39671926 Problem Major depressive disorder, recurrent episode, moderate F33.1 Active 716219530 Problem Major depressive disorder, recurrent, mild F33.0 Active 98160607 Problem Obstructive sleep apnea G47.33 Active 22464558 Problem Restless legs G25.81 Active 98420288 Problem Attention-deficit hyperactivity disorder, predominantly inattentive type F90.0 Active 71092469 Problem Chronic hepatitis K73.9 Active 89191362 Problem Neuralgia M79.2 Active 86681746 Problem Folic acid deficiency E53.8 Active 982244021 Problem Primary osteoarthritis of both knees M17.0 Active 692254843 Problem Insomnia G47.00 Active 222282201 Problem Depression, major, recurrent, mild F33.0 Active 346621091 Problem Hypertension I10 Active 44752396 Problem Low back pain M54.5 Active 804039380 Problem Hyperlipidemia E78.5 Active 14266156 Problem Chronic viral hepatitis B without delta-agent B18.1 Active 504980945 ALLERGIES No Information SOCIAL HISTORY Never Assessed [...]
--- OUTSIDE RECORDS SUMMARY | 2017-09-29 06:24 | XMS REPORT ---
Author Author Shayan GUSTAVO Organization [facility] Address [address] [place] [address] Care Team Providers Care Station Tender Name Role Phone lucinaNOLA MohanY Unavailable PROBLEMS Type Condition ICD9-CM Code [id number] Code Onset Dates Condition Status SNOMED Code Problem Hypothyroid E03.9 Active 23824241 Problem 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 Active 90496137 Problem Obesity due to excess calories, unspecified obesity severity E66.09 Active 210135822 Problem Generalized anxiety disorder F41.1 Active 20260695 Problem Major depressive disorder, recurrent episode, moderate F33.1 Active 695549909 Problem Major depressive disorder, recurrent, mild F33.0 Active 30516104 Problem Obstructive sleep apnea G47.33 Active 21762274 Problem Restless legs G25.81 Active 09051157 Problem Attention-deficit hyperactivity disorder, predominantly inattentive type F90.0 Active 11599028 Problem Chronic hepatitis K73.9 Active 48406287 Problem Neuralgia M79.2 Active 78136368 Problem Folic acid deficiency E53.8 Active 510808067 Problem Primary osteoarthritis of both knees M17.0 Active 451096046 Problem Insomnia G47.00 Active 812765623 Problem Depression, major, recurrent, mild F33.0 Active 780558810 Problem Hypertension I10 Active 22813042 Problem Low back pain M54.5 Active 248942540 Problem Hyperlipidemia E78.5 Active 07755826 Problem Chronic viral hepatitis B without delta-agent B18.1 Active 729047943 ALLERGIES Unknown Allergies SOCIAL HISTORY No smoking Hx information available PLAN OF CARE VITAL SIGNS MEDICATIONS Medication Instructions Dosage Frequency Start Date End Date Duration Status Doxepin HCl 25 MG Orally Once a day 1-2 capsules at bedtime 24h 30 Active RESULTS No Results PROCEDURES No Known procedures IMMUNIZATIONS No Known Immunizations
--- OUTSIDE RECORDS SUMMARY | 2017-09-29 06:24 | XMS REPORT ---
Author Author JARED GUSTAVO Organization [facility] Address [address] [place] [address] Care Team Providers Care Bar Catcher Name Role Phone GUSTAVO COLEMAN Unavailable PROBLEMS Type Condition ICD9-CM Code [id number] Code Onset Dates Condition Status SNOMED Code Problem Hypertension 401.9 Active 16292828 Problem Primary osteoarthritis of both knees M17.0 Active 593744008 Problem Neuralgia M79.2 Active 73825785 Problem Insomnia G47.00 Active 102852793 Problem Hypothyroidism, unspecified type E03.9 Active 04510124 Problem Hypertension I10 Active 14888845 Problem Chronic hepatitis K73.9 Active 40291606 Problem ADD (attention deficit disorder) F90.0 Active 423682575 Problem Hyperlipidemia E78.5 Active 43473957 Problem Unspecified vitamin D deficiency 268.9 Active 60342020 Problem Lumbago 724.2 Active 559346969 Problem Unspecified sleep apnea 780.57 Active 90432095 Problem Chronic hepatitis C without mention of hepatic coma 070.54 Active 339974942 Problem 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, chronic, without mention of hepatitis delta 070.32 Active 195053877 ALLERGIES Unknown Allergies SOCIAL HISTORY No smoking Hx information available PLAN OF CARE VITAL SIGNS MEDICATIONS Medication Instructions Dosage Frequency Start Date End Date Duration Status Alprazolam 0.5 MG Orally Three times a day prn ANXIETY TAKE ONE TABLET Active RESULTS No Results PROCEDURES No Known procedures IMMUNIZATIONS No Known Immunizations
--- OUTSIDE RECORDS SUMMARY | 2017-09-29 06:24 | XMS REPORT ---
Author Author 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 [facility] eClinicalWorks Address Unknown Phone Unavailable Care Team Providers Care Plumber Name Role Phone 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 CP Unavailable [...] Date End Date Status Dosage Pantoprazole Sodium [facility] [address]-07 40 MG Orally Once a day 1 tablet Results No Known Results Summary Purpose eClinicalWorks Submission
--- OUTSIDE RECORDS SUMMARY | 2017-09-29 06:25 | XMS REPORT ---
Author Author Shayan GUSTAVO Organization [facility] Address [address] [place] [address] Care Team Providers Care Chancery Clerk Name Role Phone lucinaNOLA MohanY Unavailable PROBLEMS Type Condition ICD9-CM Code ACN18-DB Code Onset Dates Condition Status SNOMED Code Problem Hypothyroid E03.9 Active 49448032 Problem 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 Active 27110632 Problem Obesity due to excess calories, unspecified obesity severity E66.09 Active 725053824 Problem Generalized anxiety disorder F41.1 Active 13529650 Problem Major depressive disorder, recurrent episode, moderate F33.1 Active 138828613 Problem Major depressive disorder, recurrent, mild F33.0 Active 71966229 Problem Obstructive sleep apnea G47.33 Active 55665052 Problem Restless legs G25.81 Active 30658847 Problem Attention-deficit hyperactivity disorder, predominantly inattentive type F90.0 Active 89475929 Problem Chronic hepatitis K73.9 Active 84145952 Problem Neuralgia M79.2 Active 88924320 Problem Folic acid deficiency E53.8 Active 549496812 Problem Primary osteoarthritis of both knees M17.0 Active 973395805 Problem Insomnia G47.00 Active 115459050 Problem Depression, major, recurrent, mild F33.0 Active 186974160 Problem Hypertension I10 Active 78284474 Problem Low back pain M54.5 Active 614319896 Problem Hyperlipidemia E78.5 Active 69216058 Problem Chronic viral hepatitis B without delta-agent B18.1 Active 814836473 ALLERGIES Substance Reaction Event Type Date Status Trazodone HCl "weird dreams" Drug Allergy December, Active SOCIAL HISTORY Never Assessed PLAN OF CARE Activity Details Follow Up 3 Months with new provider Reason: VITAL SIGNS Height 64 in 2017-01-29 Weight 226.9 lbs 2017-01-29 Heart Rate 88 bpm 2017-01-29 Respiratory Rate 18 2017-01-29 BMI 38.94 kg/m2 2017-01-29 Blood pressure systolic 120 mmHg 2017-01-29 Blood pressure diastolic 82 mmHg 2017-01-29 MEDICATIONS Medication Instructions Dosage Frequency Start Date End Date Duration Status Pravastatin Sodium 80 MG TAKE ONE TABLET BY MOUTH AT BEDTIME (AVOID GRAPEFRUIT JUICE AND PRODUCTS WITH GRAPEFRUIT) 90 Active Lisinopril 20 MG Orally Once a day 1 tablet 24h 30 Active Truvada 200-300 mg Orally Once a day 1 tablet 24h 30 Active Doxepin HCl 25 MG Orally Once a day 1-2 capsules at bedtime 24h Active Albuterol Sulfate 90 mcg/actuation 2 puffs by Inhalation route every 4-6 hours as needed PRN cough or wheezing Aug, Active Toprol XL 100 MG Orally Once a day 1 tablet at bedtime 24h 90 Active Effexor XR 150 MG Orally Once a day 2 capsule with food 24h Active HydrOXYzine HCl 10 MG Orally daily 1 tablet BID as needed for anxiety 24h Oct, Active Fish Oil 1000 MG Orally 3 times a day 1 capsule 8h Active Loratadine 10 mg Orally Once a day as needed for allergies 1 tablet Apr, Active Pantoprazole Sodium 40 MG Orally Once a day 1 tablet 24h 90 Active Folic Acid 1 MG Orally Once a day 1 tablet 24h December, December, 90 days Active Requip 1 MG Orally twice a day 1 tablet 12h 90 days Active Neurontin 300 MG Orally 2 times a day 1 capsule 12h Aug, 30 days Active Cyclobenzaprine HCl 10 mg Orally 2 times a day prn back pain 1 tablet as needed Oct, Active Levothyroxine Sodium 100 MCG Orally Once a day 1 tablet 24h 30 Active RESULTS No Results PROCEDURES Procedure Date Ordered Result Body Site [facility] VISIT ESTABLISHED PATIENT January 29, 2017 IMMUNIZATIONS No Known Immunizations MEDICAL (GENERAL) HISTORY [...]
--- OUTSIDE RECORDS SUMMARY | 2017-09-29 06:25 | XMS REPORT ---
Author Author 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 Organization [facility] Address [address] [place] [address] Care Team Providers Care Cooker Casing Name Role Phone 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 Unavailable PROBLEMS Type Condition ICD9-CM Code BTR96-GG Code Onset Dates Condition Status SNOMED Code Problem Hypothyroid E03.9 Active 49980147 Problem 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 Active 36234345 Problem Obesity due to excess calories, unspecified obesity severity E66.09 Active 672505271 Problem Generalized anxiety disorder F41.1 Active 82598647 Problem Major depressive disorder, recurrent episode, moderate F33.1 Active 363969824 Problem Major depressive disorder, recurrent, mild F33.0 Active 29414988 Problem Obstructive sleep apnea G47.33 Active 80255005 Problem Restless legs G25.81 Active 75427230 Problem Attention-deficit hyperactivity disorder, predominantly inattentive type F90.0 Active 21378877 Problem Chronic hepatitis K73.9 Active 82087211 Problem Neuralgia M79.2 Active 24183048 Problem Folic acid deficiency E53.8 Active 883581632 Problem Primary osteoarthritis of both knees M17.0 Active 414207536 Problem Insomnia G47.00 Active 562703637 Problem Depression, major, recurrent, mild F33.0 Active 517990715 Problem Hypertension I10 Active 89100717 Problem Low back pain M54.5 Active 950408854 Problem Hyperlipidemia E78.5 Active 14514378 Problem Chronic viral hepatitis B without delta-agent B18.1 Active 917361787 ALLERGIES Unknown Allergies SOCIAL HISTORY No smoking Hx information available PLAN OF CARE VITAL SIGNS MEDICATIONS Medication Instructions Dosage Frequency Start Date End Date Duration Status Levothyroxine Sodium 100 MCG Orally Once a day 1 tablet 24h Active Truvada 200-300 mg Orally Once a day 1 tablet 24h Oct, Active RESULTS No Results PROCEDURES No Known procedures IMMUNIZATIONS No Known Immunizations
--- OUTSIDE RECORDS SUMMARY | 2017-09-29 06:25 | XMS REPORT ---
Author Author 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 [facility] eClinicalWorks Address Unknown Phone Unavailable Care Team Providers Care Global Implementation Manager Name Role Phone 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 CP Unavailable Allergies, Adverse Reactions, Alerts Substance Reaction Event Type N.K.D.A. Info Not Available Non Drug Allergy Problems Problem Type Condition ICD-9 Code Onset Dates Condition Status Assessment Hypertension 401.9 Active Problem Chronic hepatitis C without mention of hepatic coma 070.54 Active Problem Major depressive disorder, recurrent episode, mild 296.31 Active Assessment Hypokalemia 276.8 Active Problem Viral hepatitis B without mention [...] Instructions Start Date End Date Status Dosage Effexor XR [facility] [address]-51 75 MG Orally Once a day 1 capsule with food Pantoprazole Sodium [facility] [address]-01 40 MG Orally Once a day 1 tablet Xyzal [facility] [address]-65 5 mg November 09, 2014 1 tablet by Oral route 1 time per day PRN prn cough Alprazolam [facility] [address]-92 0.5 MG Orally Three times a day prn ANXIETY must last 30 days NO EARLY REFILL TAKE ONE TABLET Diclofenac Sodium [facility] [address]-71 75 MG Orally 3 times a day March 09, 2015 May 08, 2015 1 tablet Levothyroxine Sodium [facility] 23866913430 75 MCG TAKE ONE TABLET BY MOUTH ONCE DAILY (REPEAT LAB IN LATE MARCH 2015) Potassium Chloride Mandy ER [facility] [address]-97 10 MEQ Orally Once a day 1 tablet Toprol XL [facility] [address]-32 100 MG Orally Once a day at hs November 17, 2014 take 1 tablet by Oral route 2 times a day Albuterol Sulfate [facility] [address]-76 90 mcg/actuation Aug 24, 2014 2 puffs by Inhalation route every 4-6 hours as needed PRN cough or wheezing Ambien [facility] [address]-42 5 MG Orally Once a day January 11, 2015 1 tablet at bedtime as needed Abilify [facility] [address]-53 10 MG Orally Once a day November 12, 2014 1 tablet Pravastatin Sodium [facility] 68586533954 80 MG TAKE ONE TABLET BY MOUTH DAILY AT BEDTIME (AVOID GRAPEFRUIT JUICE AND PRODUCTS WITH GRAPEFRUIT) Truvada [facility] 77532109310 200-300 MG TAKE ONE TABLET BY MOUTH DAILY Cholecalciferol [facility] [address]-46 2000 UNIT Orally Once a day 1 capsule Fish Oil [facility] [address]-76 1000 MG Orally 3 times a day 1 capsule Ritalin [facility] [address]-85 20 MG Orally Twice a day November 17, 2014 1 tablet Effexor XR [facility] [address]-07 150 MG Orally Once a day November 12, 2014 1 capsule with food Neurontin [facility] [address]-18 100 mg Sep 27, 2014 1 capsule by Oral route 3 times per day PRN for pain Lisinopril [facility] 57469116345 20 MG Orally Once a day 1 tablet Procedures Procedure Coding System Code Date [facility] ESTABLISHED PATIENT CPT-4 G0467 May 05, 2015 Office Visit, Est Pt., Level 3 CPT-4 33464 May 05, 2015 [facility] NO[facility] May 05, 2015 VENIPUNCT, ROUTINE* CPT-4 14228 May 05, 2015 Vital Signs Date/Time: May 05, 2015 Temperature 97.9 F Weight 187.3 lbs Height 64 in BMI 32.15 Index Blood Pressure Diastolic 96 mmHg Blood Pressure Systolic 150 mmHg Cardiac Monitoring Heart Rate 68 bpm Results Name Result Date Reference Range Unit Abnormality Flag ROUTINE VENIPUNCTURE POTASSIUM Summary Purpose eClinicalWorks Submission
--- OUTSIDE RECORDS SUMMARY | 2017-09-29 06:25 | XMS REPORT ---
Author CHAPITO Melo Organization eClinicalWorks Address Unknown Phone Unavailable Care Team Providers Care Music Ministries Director Name Role Phone CHAPITO VINSON CP Unavailable [...] Coding System Code Date THERAPEUTIC EXERCISES CPT-4 72337 Apr 30, 2016 Results No Known Results Summary Purpose eClinicalWorks Submission
--- OUTSIDE RECORDS SUMMARY | 2017-09-29 06:25 | XMS REPORT ---
Author Author BILLY LAWRENCE [facility] eClinicalWorks Address Unknown Phone Unavailable Care Team Providers Care Manufacturing Engineer Supervisor Name Role Phone BILLY LAWRENCE Unavailable Allergies, Adverse Reactions, Alerts Substance Reaction Event Type N.K.D.A. Info Not Available Non Drug Allergy Problems Problem Type Condition ICD-9 Code Onset Dates Condition Status Assessment Major depressive disorder, recurrent episode, mild 296.31 Active Problem Chronic hepatitis C without mention of hepatic coma 070.54 Active Problem Major depressive disorder, recurrent episode, mild 296.31 Active Assessment Generalized anxiety disorder 300.02 Active Assessment Attention deficit disorder of childhood without mention of hyperactivity 314.00 Active Problem Viral hepatitis B without mention [...] Start Date End Date Status Dosage Alprazolam [facility] [address]-73 0.5 MG Orally Three times a day prn ANXIETY must last 30 days NO EARLY REFILL TAKE ONE TABLET Ritalin [facility] [address]-98 20 MG Orally Twice a day November 17, 2014 1 tablet Truvada [facility] 91517540309 200-300 MG TAKE ONE TABLET BY MOUTH DAILY Ambien [facility] [address]-73 5 MG Orally Once a day January 11, 2015 1 tablet at bedtime as needed Albuterol Sulfate [facility] [address]-84 90 mcg/actuation Aug 24, 2014 2 puffs by Inhalation route every 4-6 hours as needed PRN cough or wheezing Toprol XL [facility] [address]-01 100 MG Orally Once a day at hs November 17, 2014 take 1 tablet by Oral route 2 times a day Abilify [facility] [address]-48 10 MG Orally Once a day November 12, 2014 1 tablet Pravastatin Sodium [facility] 32252410796 80 MG TAKE ONE TABLET BY MOUTH DAILY AT BEDTIME (AVOID GRAPEFRUIT JUICE AND PRODUCTS WITH GRAPEFRUIT) Effexor XR [facility] [address]-19 75 MG Orally Once a day 1 capsule with food Effexor XR [facility] [address]-45 150 MG Orally Once a day November 12, 2014 1 capsule with food Fish Oil [facility] [address]-17 1000 MG Orally 3 times a day 1 capsule Cholecalciferol [facility] [address]-16 2000 UNIT Orally Once a day 1 capsule Levothyroxine Sodium [facility] 21850653511 75 MCG TAKE ONE TABLET BY MOUTH ONCE DAILY (REPEAT LAB IN LATE MARCH 2015) Lisinopril [facility] 15074265169 20 MG Orally Once a day 1 tablet Pantoprazole Sodium [facility] [address]-71 40 MG Orally Once a day 1 tablet Potassium Chloride Mandy ER [facility] [address]-34 10 MEQ Orally Once a day 1 tablet Xyzal [facility] [address]-33 5 mg November 09, 2014 1 tablet by Oral route 1 time per day PRN prn cough Procedures Procedure Coding System Code Date Office Visit, Est Pt., Level 3 CPT-4 27304 May 10, 2015 [facility] VISIT ESTABLISHED PATIENT CPT-4 G0467 May 10, 2015 Vital Signs Date/Time: May 10, 2015 Temperature 98.0 F Weight 186.7 lbs Height 64 in BMI 32.04 Index Blood Pressure Diastolic 90 mmHg Blood Pressure Systolic 140 mmHg Cardiac Monitoring Heart Rate 68 bpm Results No Known Results Summary Purpose eClinicalWorks Submission
--- OUTSIDE RECORDS SUMMARY | 2017-09-29 06:25 | XMS REPORT ---
Author THEODORA García [facility] eClinicalWorks Address Unknown Phone Unavailable Care Team Providers Care Screening Unit Registered Nurse Name Role Phone THEODORA SHINE CP Unavailable Allergies, Adverse Reactions, Alerts Substance Reaction Event Type N.K.D.A. Info Not Available Non Drug Allergy Problems Problem Type Condition Code Onset Dates Condition Status Assessment Bronchitis J40 Active Problem Chronic hepatitis C without mention of hepatic coma 070.54 Active Problem Major depressive disorder, recurrent episode, mild 296.31 Active Assessment Encounter for immunization Z23 Active Problem Viral hepatitis B without mention [...] Instructions Start Date End Date Status Dosage Lisinopril [facility] 41819353088 20 MG Orally Once a day 1 tablet Alprazolam [facility] [address]-02 0.5 MG Orally Three times a day prn ANXIETY must last 30 days NO EARLY REFILL TAKE ONE TABLET Doxycycline Hyclate [facility] [address]-86 100 MG Orally every 12 hrs Jun 27, 2015 Jul 07, 2015 1 capsule Cholecalciferol [facility] [address]-03 2000 UNIT Orally Once a day 1 capsule Ambien [facility] [address]-53 5 MG Orally Once a day January 11, 2015 1 tablet at bedtime as needed Guaifenesin [facility] [address]-70 400 MG Orally 2 times a day Jun 27, 2015 Jul 07, 2015 1 tablet as needed Pantoprazole Sodium [facility] [address]-50 40 MG Orally Once a day 1 tablet Fish Oil [facility] [address]-47 1000 MG Orally 3 times a day 1 capsule Xyzal [facility] [address]-93 5 mg November 09, 2014 1 tablet by Oral route 1 time per day PRN prn cough Pravastatin Sodium [facility] 92096329258 80 MG TAKE ONE TABLET BY MOUTH DAILY AT BEDTIME (AVOID GRAPEFRUIT JUICE AND PRODUCTS WITH GRAPEFRUIT) Nichole [facility] 46369394718 200-300 MG TAKE ONE TABLET BY MOUTH DAILY Effexor XR [facility] [address]-02 75 MG Orally Once a day 1 capsule with food Effexor XR [facility] [address]-34 150 MG Orally Once a day November 12, 2014 1 capsule with food Toprol XL [facility] [address]-68 100 MG Orally Once a day at hs November 17, 2014 take 1 tablet by Oral route 2 times a day Albuterol Sulfate [facility] [address]-65 90 mcg/actuation Aug 24, 2014 2 puffs by Inhalation route every 4-6 hours as needed PRN cough or wheezing Ritalin [facility] [address]-88 20 MG Orally Twice a day Purvi to sign for Osmar November 17, 2014 1 tablet Abilify [facility] [address]-34 10 MG Orally Once a day November 12, 2014 1 tablet Levothyroxine Sodium [facility] 25164545845 75 MCG TAKE ONE TABLET BY MOUTH ONCE DAILY (REPEAT LAB IN LATE MARCH 2015) Procedures Procedure Coding System Code Date Office Visit, Est Pt., Level 3 CPT-4 84558 Jun 27, 2015 FLUARIX QUAD (3 & UP)-GSK-2014 CPT-4 52540 Jun 27, 2015 [facility] VISIT ESTABLISHED PATIENT CPT-4 G0467 Jun 27, 2015 SINGLE IMMUNIZATION ADMIN CPT-4 62825 Jun 27, 2015 Vital Signs Date/Time: Jun 27, 2015 Temperature 98.1 F Weight 188.5 lbs Height 64 in BMI 32.35 Index Blood Pressure Diastolic 80 mmHg Blood Pressure Systolic 108 mmHg Cardiac Monitoring Heart Rate 68 bpm Results No Known Results Immunizations Vaccine Administration Date FLUARIX QUAD (3 & UP)-GSK-2014Jun 27, 2015 Summary Purpose eClinicalWorks Submission
--- OUTSIDE RECORDS SUMMARY | 2017-09-29 06:25 | XMS REPORT ---
Author Author 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 Organization eClinicalWorks Address Unknown Phone Unavailable Care Team Providers Care Regional Account Director Name Role Phone 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 CP Unavailable [...] deficiency 268.9 Active Problem Lumbago 724.2 Active Assessment Low back pain M54.5 Active Problem Unspecified sleep apnea 780.57 Active Medications Medication Code System Code Instructions Start Date End Date Status Dosage Hydrocodone-Acetaminophen [facility] [address]-72 10-325 MG Orally 2 times a day March 15, 2016 1 tablet Results No Known Results Summary Purpose eClinicalWorks Submission
--- OUTSIDE RECORDS SUMMARY | 2017-09-29 06:25 | XMS REPORT ---
Author Author 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 Organization eClinicalWorks Address Unknown Phone Unavailable Care Team Providers Care Sinter Machine Operator Name Role Phone 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 CP Unavailable [...] Instructions Start Date End Date Status Dosage Potassium Chloride [facility] [address]-54 10 MEQ Orally 2 times a day Jun 11, 2015 1 tablet Results No Known Results Summary Purpose eClinicalWorks Submission
--- OUTSIDE RECORDS SUMMARY | 2017-09-29 06:25 | XMS REPORT ---
Author Author 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 [facility] Address [address] [place] [address] Care Team Providers Care Band Instrument Repairer Name Role Phone 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 Unavailable PROBLEMS Type Condition ICD9-CM Code DTT21-GA Code Onset Dates Condition Status SNOMED Code Problem Hypothyroid E03.9 Active 68500563 Problem 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 Active 35285510 Problem Obesity due to excess calories, unspecified obesity severity E66.09 Active 891664859 Problem Major depressive disorder, recurrent episode, moderate F33.1 Active 349851540 Problem Generalized anxiety disorder F41.1 Active 08374507 Problem Attention-deficit hyperactivity disorder, predominantly inattentive type F90.0 Active 77039184 Problem Obstructive sleep apnea G47.33 Active 51164597 Problem Restless legs G25.81 Active 99218119 Problem Major depressive disorder, recurrent, mild F33.0 Active 49187946 Problem Primary osteoarthritis of both knees M17.0 Active 364260238 Problem Chronic hepatitis K73.9 Active 82670205 Problem Folic acid deficiency E53.8 Active 677290656 Problem Neuralgia M79.2 Active 67918066 Problem Insomnia G47.00 Active 907964941 Problem Depression, major, recurrent, mild F33.0 Active 554284422 Problem Hypertension I10 Active 12118403 Problem Low back pain M54.5 Active 841765657 Problem Hyperlipidemia E78.5 Active 35585801 Problem Chronic viral hepatitis B without delta-agent B18.1 Active 547073223 ALLERGIES Substance Reaction Event Type Date Status Trazodone HCl "weird dreams" Drug Allergy Aug, Active SOCIAL HISTORY No smoking Hx information available PLAN OF CARE Activity Details Follow Up 6 Months Reason:htn VITAL SIGNS Height 64 in 2016-08-16 Weight 212.6 lbs 2016-08-16 Temperature 99.0 degrees Fahrenheit 2016-08-16 Heart Rate 72 bpm 2016-08-16 Respiratory Rate 18 2016-08-16 BMI 36.49 kg/m2 2016-08-16 Blood pressure systolic 132 mmHg 2016-08-16 Blood pressure diastolic 80 mmHg 2016-08-16 MEDICATIONS Medication Instructions Dosage Frequency Start Date End Date Duration Status Albuterol Sulfate 90 mcg/actuation 2 puffs by Inhalation route every 4-6 hours as needed PRN cough or wheezing Aug, Active Effexor XR 150 MG Orally Once a day 2 capsule with food 24h Active Doxepin HCl 25 MG Orally Once a day 1-2 capsules at bedtime 24h Jun, 30 day(s) Active Toprol XL 100 MG Orally Once a day 1 tablet at bedtime 24h 90 Active Lisinopril 20 MG Orally Once a day 1 tablet 24h 30 Active Pantoprazole Sodium 40 MG Orally Once a day 1 tablet 24h 90 Active Potassium Chloride Mandy ER 10 MEQ Orally Twice a day 1 tablet with food 12h 90 Active Pravastatin Sodium 80 MG TAKE ONE TABLET BY MOUTH AT BEDTIME (AVOID GRAPEFRUIT JUICE AND PRODUCTS WITH GRAPEFRUIT) 90 Active Fish Oil 1000 MG Orally 3 times a day 1 capsule 8h Active Neurontin 300 MG Orally 2 times a day Start with one at bedtime and then in a week use 1 twice a day 1 capsule Aug, Active Levothyroxine Sodium 75 MCG Orally Once a day 1 tablet 24h 60 days Active RESULTS Name Result Date Reference Range ESR/SED RATE (IN HOUSE) 2016-08-16 SED/ESR RATE 34 mm/hr Lot # [id number] Exp Date 30 Oct 2016 0 - 30 mm PTH (INTACT) 2016-08-16 PTH, Intact 79 15-65 CBC 2016-08-16 WBC 10.1 3.4-10.8 RBC 4.55 3.77-5.28 Hemoglobin 15.7 11.1-15.9 Hematocrit 45.3 34.0-46.6 MCV 100 79-97 MCH 34.5 26.6-33.0 MCHC 34.7 31.5-35.7 RDW 14.9 12.3-15.4 Platelets 252 150-379 Neutrophils 58 Lymphs 31 Monocytes 8 Eos 3 Basos 0 Neutrophils (Absolute) 5.8 1.4-7.0 Lymphs (Absolute) 3.1 0.7-3.1 Monocytes(Absolute) 0.8 0.1-0.9 Eos (Absolute) 0.3 0.0-0.4 Baso (Absolute) 0.0 0.0-0.2 Immature Granulocytes 0 Immature Grans (Abs) 0.0 0.0-0.1 LIVER PANEL (LFT) 2016-08-16 Protein, Total, Serum 7.6 6.0-8.5 Bilirubin, Total 0.3 0.0-1.2 Bilirubin, Direct 0.12 0.00-0.40 Alkaline Phosphatase, S 177 39-117 AST (SGOT) 21 0-40 ALT (SGPT) 7 0-32 RENAL PROFILE 2016-08-16 Glucose, Serum 97 65-99 BUN 14 6-24 Creatinine, Serum 1.28 0.57-1.00 eGFR If NonAfricn Am 47 >59 eGFR If Africn Am 54 >59 BUN/Creatinine Ratio 11 9-23 Sodium, Serum 141 134-144 Potassium, Serum 4.0 3.5-5.2 Chloride, Serum 100 96-106 Carbon Dioxide, Total 23 18-29 Calcium, Serum 9.1 8.7-10.2 Phosphorus, Serum 2.7 2.5-4.5 Albumin, Serum 4.3 3.5-5.5 PROCEDURES Procedure Date Ordered Related Diagnosis Body Site RBC SED RATE, NONAUTOMATED Aug 16, 2016 LAB NOT BILLED BY [facility] Aug 16, 2016 [facility] VISIT ESTABLISHED PATIENT Aug 16, 2016 VENIPUNCT, ROUTINE* Aug 16, 2016 Office Visit, Est Pt., Level 3 Aug 16, 2016 IMMUNIZATIONS No Known Immunizations
--- OUTSIDE RECORDS SUMMARY | 2017-09-29 06:25 | XMS REPORT ---
Author Author 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 Organization [facility] Address [address] [place] [address] Care Team Providers Care Choreography Director Name Role Phone 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 Unavailable PROBLEMS Type Condition ICD9-CM Code [id number] Code Onset Dates Condition Status SNOMED Code Problem Hypothyroid E03.9 Active 23304321 Problem 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 Active 37455131 Problem Obesity due to excess calories, unspecified obesity severity E66.09 Active 668435517 Problem Generalized anxiety disorder F41.1 Active 60549836 Problem Major depressive disorder, recurrent episode, moderate F33.1 Active 870907159 Problem Major depressive disorder, recurrent, mild F33.0 Active 88763441 Problem Obstructive sleep apnea G47.33 Active 56803876 Problem Restless legs G25.81 Active 82659367 Problem Attention-deficit hyperactivity disorder, predominantly inattentive type F90.0 Active 41628912 Problem Chronic hepatitis K73.9 Active 60304094 Problem Neuralgia M79.2 Active 63234104 Problem Folic acid deficiency E53.8 Active 092360018 Problem Primary osteoarthritis of both knees M17.0 Active 650591510 Problem Insomnia G47.00 Active 073435466 Problem Depression, major, recurrent, mild F33.0 Active 067564885 Problem Hypertension I10 Active 99323725 Problem Low back pain M54.5 Active 718532197 Problem Hyperlipidemia E78.5 Active 58724327 Problem Chronic viral hepatitis B without delta-agent B18.1 Active 366944838 ALLERGIES Unknown Allergies SOCIAL HISTORY No smoking Hx information available PLAN OF CARE VITAL SIGNS MEDICATIONS Unknown Medications RESULTS No Results PROCEDURES No Known procedures IMMUNIZATIONS No Known Immunizations
--- OUTSIDE RECORDS SUMMARY | 2017-09-29 06:25 | XMS REPORT ---
Author Author 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 [facility] eClinicalWorks Address Unknown Phone Unavailable Care Team Providers Care Conservation Of Resources Commissioner Name Role Phone 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 CP Unavailable Allergies No Known Allergies Problems Problem Type Condition Code Onset Dates Condition Status Problem Primary osteoarthritis of both knees M17.0 Active Problem Hypertension I10 Active Problem Chronic hepatitis K73.9 Active Problem Low back pain M54.5 Active Problem Depression, major, recurrent, mild F33.0 Active Problem Chronic viral hepatitis B without delta-agent B18.1 Active Problem ADD (attention deficit disorder) F90.0 Active Problem Hyperlipidemia E78.5 Active Problem Insomnia G47.00 Active Problem Hypothyroidism, unspecified type E03.9 Active Assessment Chronic viral hepatitis B without delta-agent B18.1 Active Problem Chronic hepatitis C without mention of hepatic coma 070.54 Active Problem Unspecified sleep apnea 780.57 Active Problem 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, chronic, without mention of hepatitis delta 070.32 Active Problem Unspecified vitamin D deficiency 268.9 Active Problem Hypertension 401.9 Active Problem Lumbago 724.2 Active Problem Neuralgia M79.2 Active Medications No Known Medications Results No Known Results Summary Purpose eClinicalWorks Submission
--- OUTSIDE RECORDS SUMMARY | 2017-09-29 06:26 | XMS REPORT ---
Author Author FREDDY LAZARO [facility] eClinicalWorks Address Unknown Phone Unavailable Care Team Providers Care Photocopying Equipment Mechanic Name Role Phone FREDDY LAZARO CP Unavailable Allergies No Known Allergies Problems [...] Active Assessment Major depressive disorder, recurrent episode, moderate 296.32 Active Problem Major depressive disorder, recurrent episode, mild 296.31 Active Assessment Attention deficit disorder of childhood without mention of hyperactivity 314.00 Active Problem Lumbago 724.2 Active Problem Major depressive disorder, recurrent episode, moderate 296.32 Active Problem Chronic hepatitis C without mention of hepatic coma 070.54 Active Problem Unspecified sleep apnea 780.57 Active Problem Unspecified vitamin D deficiency 268.9 Active Problem Attention deficit disorder of childhood without mention of hyperactivity 314.00 Active Medications No Known Medications Procedures Procedure Coding System Code Date Psych diagnostic evaluation, new patient CPT-4 39334 December 16, 2015 [facility] VISIT MENTAL HEALTH NEW PT CPT-4 G0469 December 16, 2015 Results No Known Results Summary Purpose eClinicalWorks Submission
--- OUTSIDE RECORDS SUMMARY | 2017-09-29 06:26 | XMS REPORT ---
Author GUSTAVO Brown Organization [employer] Address Unknown Phone Unavailable Care Team Providers Care Long Term Care Phlebotomist Name Role Phone GUSTAVO COLEMAN CP Unavailable Allergies, Adverse Reactions, Alerts Substance Reaction Event Type Trazodone HCl "weird dreams" Drug Allergy Problems Problem Type Condition Code [...] Hypertension I10 Active Assessment Major depressive disorder, recurrent, moderate F33.1 Active Problem Major depressive disorder, recurrent episode, mild 296.31 Active Assessment Attention-deficit hyperactivity disorder, predominantly inattentive type F90.0 Active Problem Lumbago 724.2 Active Problem Major depressive disorder, recurrent episode, moderate 296.32 Active Problem Chronic hepatitis C without mention of hepatic coma 070.54 Active Problem Unspecified sleep apnea 780.57 Active Problem Unspecified vitamin D deficiency 268.9 Active Problem Attention deficit disorder of childhood without mention of hyperactivity 314.00 Active Medications Medication Code System Code Instructions Start Date End Date Status Dosage Levothyroxine Sodium [facility] 24351854563 100 MCG Orally Once a day 1 tablet Toprol XL [facility] [address]-58 100 MG Orally Once a day January 23, 2016 1 tablet at bedtime Lisinopril [facility] 91953923885 20 MG Orally Once a day 1 tablet Pantoprazole Sodium [facility] [address]-04 40 MG Orally Once a day 1 tablet Effexor XR [facility] [address]-31 150 MG Orally Once a day 2 capsule with food Fish Oil [facility] [address]-61 1000 MG Orally 3 times a day 1 capsule Doxepin HCl [facility] [address]-27 10 MG Orally Once a day March 13, 2016 1 capsule at bedtime as needed for sleep Truvada [facility] 83424015578 200-300 MG TAKE ONE TABLET BY MOUTH DAILY Pravastatin Sodium [facility] [address]-30 80 MG Orally Once a day TAKE ONE TABLET BY MOUTH DAILY AT BEDTIME (AVOID GRAPEFRUIT JUICE AND PRODUCTS WITH GRAPEFRUIT) Cholecalciferol [facility] [address]-43 2000 UNIT Orally Once a day 1 capsule Ritalin [facility] [address]-53 10 MG Orally daily November 17, 2014 Apr 10, 2016 1 tablet in am and 1 tab before 3pm Albuterol Sulfate [facility] [address]-94 90 mcg/actuation Aug 24, 2014 2 puffs by Inhalation route every 4-6 hours as needed PRN cough or wheezing Requip [facility] [address]-07 1 MG Orally Once a day November 08, 2015 1 tablet 1 to 3 hours before bedtime Potassium Chloride Mandy ER [facility] 91628409459 10 MEQ Orally 2 times a day 1 tablet Doxycycline Hyclate [facility] [address]-27 100 MG Orally every 12 hrs March 07, 2016 March 17, 2016 1 capsule Alprazolam [facility] [address]-21 0.5 MG Orally Three times a day prn ANXIETY TAKE ONE TABLET Procedures Procedure Coding System Code Date Office Visit, Justyna Pt., Level 3 CPT-4 12270 March 13, 2016 [facility] EST[facility] PAT[facility] CPT-4 G0467 March 13, 2016 Vital Signs Date/Time: March 13, 2016 Cardiac Monitoring Heart Rate 60 bpm Weight 203.5 lbs Height 64 in Blood Pressure Diastolic 92 mmHg Blood Pressure Systolic 135 mmHg Results No Known Results Summary Purpose eClinicalWorks Submission
--- OUTSIDE RECORDS SUMMARY | 2017-09-29 06:26 | XMS REPORT ---
Author Author 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 Organization [facility] Address [address] [place] [address] Care Team Providers Care Web Production Manager Name Role Phone 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 Unavailable PROBLEMS Type Condition ICD9-CM Code [id number] Code Onset Dates Condition Status SNOMED Code Problem Hypothyroid E03.9 Active 32747618 Problem 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 Active 56238121 Problem Obesity due to excess calories, unspecified obesity severity E66.09 Active 825754651 Problem Generalized anxiety disorder F41.1 Active 12455585 Problem Major depressive disorder, recurrent episode, moderate F33.1 Active 374019731 Problem Major depressive disorder, recurrent, mild F33.0 Active 99507766 Problem Obstructive sleep apnea G47.33 Active 57558138 Problem Restless legs G25.81 Active 53095228 Problem Attention-deficit hyperactivity disorder, predominantly inattentive type F90.0 Active 43102506 Problem Chronic hepatitis K73.9 Active 20249215 Problem Neuralgia M79.2 Active 63887598 Problem Folic acid deficiency E53.8 Active 094512027 Problem Primary osteoarthritis of both knees M17.0 Active 706976437 Problem Insomnia G47.00 Active 019842257 Problem Depression, major, recurrent, mild F33.0 Active 852127785 Problem Hypertension I10 Active 06539427 Problem Low back pain M54.5 Active 155223787 Problem Hyperlipidemia E78.5 Active 34729431 Problem Chronic viral hepatitis B without delta-agent B18.1 Active 002410312 ALLERGIES No Information SOCIAL HISTORY Never Assessed [...]
--- OUTSIDE RECORDS SUMMARY | 2017-09-29 06:26 | XMS REPORT ---
Author Author 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 Organization [employer] Address Unknown Phone Unavailable Care Team Providers Care Wrapper Sorter Name Role Phone 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 CP Unavailable [...] Instructions Start Date End Date Status Dosage Diclofenac Sodium [facility] [address]-21 50 MG Orally (note change in dose) 3 times a day 1 tablet Results No Known Results Summary Purpose eClinicalWorks Submission
--- OUTSIDE RECORDS SUMMARY | 2017-09-29 06:26 | XMS REPORT ---
Author Author 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 [facility] eClinicalWorks Address Unknown Phone Unavailable Care Team Providers Care Journeyman Welder Name Role Phone 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 CP Unavailable [...] 268.9 Active Problem Lumbago 724.2 Active Assessment Essential (primary) hypertension I10 Active Problem Unspecified sleep apnea 780.57 Active Medications Medication Code System Code Instructions Start Date End Date Status Dosage Alprazolam [facility] [address]-10 0.5 MG Orally Three times a day prn ANXIETY TAKE ONE TABLET Effexor XR [facility] [address]-42 150 MG Orally Once a day 2 capsule with food Albuterol Sulfate [facility] [address]-67 90 mcg/actuation Aug 24, 2014 2 puffs by Inhalation route every 4-6 hours as needed PRN cough or wheezing Potassium Chloride Mandy ER [facility] [address]-89 10 MEQ Orally Twice a day 1 tablet with food Fish Oil [facility] [address]-98 1000 MG Orally 3 times a day 1 capsule Ritalin [facility] [address]-76 10 mg Orally daily November 17, 2014 1 tablet in am and 1 tab before 3pm Truvada [facility] 89505585732 200-300 MG TAKE ONE TABLET BY MOUTH DAILY Pantoprazole Sodium [facility] [address]-53 40 MG Orally Once a day 1 tablet Levothyroxine Sodium [facility] [address]-36 100 MCG Orally Once a day 1 tablet Hydrocodone-Acetaminophen [facility] [address]-55 10-325 MG Orally 2 times a day March 15, 2016 1 tablet Toprol XL [facility] [address]-01 100 MG Orally Once a day January 23, 2016 1 tablet at bedtime Pravastatin Sodium [facility] [address]-20 80 MG TAKE ONE TABLET BY MOUTH AT BEDTIME (AVOID GRAPEFRUIT JUICE AND PRODUCTS WITH GRAPEFRUIT) Methylphenidate HCl [facility] [address]-50 10 MG Orally Twice a day 1 tablet Lisinopril [facility] 63054083216 20 MG Orally Once a day 1 tablet Requip [facility] 24110746793 1 MG Orally Once a day 1 tablet 1 to 3 hours before bedtime Procedures Procedure Coding System Code Date [facility] VISIT ESTABLISHED PATIENT CPT-4 G0467 May 31, 2016 Office Visit, Est Pt., Level 3 CPT-4 65458 May 31, 2016 No Charge CPT-4 96773 May 31, 2016 Vital Signs Date/Time: May 31, 2016 Cardiac Monitoring Heart Rate 64 bpm Weight 195.6 lbs Height 64 in BMI 33.57 Index Blood Pressure Diastolic 80 mmHg Blood Pressure Systolic 124 mmHg Results No Known Results Summary Purpose eClinicalWorks Submission
--- OUTSIDE RECORDS SUMMARY | 2017-09-29 06:26 | XMS REPORT ---
Author Author JAREDGUSTAVO Organization [facility] Address [address] [place] [address] Care Team Providers Care Life Sciences Teacher Name Role Phone GUSTAVO COLEMAN Unavailable PROBLEMS Type Condition ICD9-CM Code [id number] Code Onset Dates Condition Status SNOMED Code Problem Hypertension 401.9 Active 45512961 Problem Primary osteoarthritis of both knees M17.0 Active 552021911 Problem Neuralgia M79.2 Active 46857604 Problem Insomnia G47.00 Active 890416550 Problem Hypothyroidism, unspecified type E03.9 Active 38040528 Problem Hypertension I10 Active 10504513 Problem Chronic hepatitis K73.9 Active 80504512 Problem ADD (attention deficit disorder) F90.0 Active 248654791 Problem Hyperlipidemia E78.5 Active 38738829 Problem Unspecified vitamin D deficiency 268.9 Active 36933628 Problem Lumbago 724.2 Active 012401823 Problem Unspecified sleep apnea 780.57 Active 80916520 Problem Chronic hepatitis C without mention of hepatic coma 070.54 Active 015531898 Problem 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, chronic, without mention of hepatitis delta 070.32 Active 700720228 ALLERGIES Unknown Allergies SOCIAL HISTORY No smoking Hx information available PLAN OF CARE VITAL SIGNS MEDICATIONS Medication Instructions Dosage Frequency Start Date End Date Duration Status Ritalin 10 mg Orally daily 1 tablet in am and 1 tab before 3pm 24h Oct, Active RESULTS No Results PROCEDURES No Known procedures IMMUNIZATIONS No Known Immunizations
--- OUTSIDE RECORDS SUMMARY | 2017-09-29 06:26 | XMS REPORT ---
Author OLI Esteban Organization [employer] Address Unknown Phone Unavailable Care Team Providers Care Contact Representative Name Role Phone OLI BAKER CP Unavailable Allergies, Adverse Reactions, Alerts Substance [...] E78.5 Active Problem Hypertension I10 Active Assessment Encounter for Papanicolaou smear for cervical cancer screening Z12.4 Active Problem Major depressive disorder, recurrent episode, mild 296.31 Active Assessment Breast cancer screening Z12.39 Active Assessment Encounter for routine gynecological examination Z01.419 Active Problem Lumbago 724.2 Active Problem Major depressive disorder, recurrent episode, moderate 296.32 Active Problem Chronic hepatitis C without mention of hepatic coma 070.54 Active Problem Unspecified sleep apnea 780.57 Active Problem Unspecified vitamin D deficiency 268.9 Active Problem Attention deficit disorder of childhood without mention of hyperactivity 314.00 Active Medications Medication Code System Code Instructions Start Date End Date Status Dosage Requip [facility] [address]-37 1 MG Orally Once a day November 08, 2015 1 tablet 1 to 3 hours before bedtime Albuterol Sulfate [facility] [address]-11 90 mcg/actuation Aug 24, 2014 2 puffs by Inhalation route every 4-6 hours as needed PRN cough or wheezing Ritalin [facility] [address]-36 10 MG Orally daily November 17, 2014 Apr 10, 2016 1 tablet in am and 1 tab before 3pm Potassium Chloride Mandy ER [facility] 83738212822 10 MEQ Orally 2 times a day 1 tablet Fish Oil [facility] [address]-92 1000 MG Orally 3 times a day 1 capsule Hydrocodone-Acetaminophen [facility] [address]-24 10-325 MG Orally 2 times a day March 15, 2016 1 tablet Doxepin HCl [facility] [address]-29 10 MG Orally Once a day March 13, 2016 1 capsule at bedtime as needed for sleep Effexor XR [facility] [address]-36 150 MG Orally Once a day 2 capsule with food Alprazolam [facility] [address]-20 0.5 MG Orally Three times a day prn ANXIETY TAKE ONE TABLET Truvada [facility] 66771835300 200-300 MG TAKE ONE TABLET BY MOUTH DAILY Pantoprazole Sodium [facility] [address]-25 40 MG Orally Once a day 1 tablet Cholecalciferol [facility] [address]-08 2000 UNIT Orally Once a day 1 capsule Levothyroxine Sodium [facility] [address]-58 125 MCG Orally Once a day 1 tablet Pravastatin Sodium [facility] [address]-37 80 MG Orally Once a day TAKE ONE TABLET BY MOUTH DAILY AT BEDTIME (AVOID GRAPEFRUIT JUICE AND PRODUCTS WITH GRAPEFRUIT) Toprol XL [facility] [address]-06 100 MG Orally Once a day January 23, 2016 1 tablet at bedtime Lisinopril [facility] 82671048543 20 MG Orally Once a day 1 tablet Procedures Procedure Coding System Code Date Preventive Care Est Pt. Age 40-64 CPT-4 80132 March 21, 2016 SPECIMEN HANDLING CPT-4 61011 March 21, 2016 Vital Signs Date/Time: March 21, 2016 Cardiac Monitoring Heart Rate 77 bpm Weight 204.0 lbs Height 64 in Blood Pressure Diastolic 72 mmHg Blood Pressure Systolic 128 mmHg Results No Known Results Summary Purpose eClinicalWorks Submission
--- OUTSIDE RECORDS SUMMARY | 2017-09-29 06:26 | XMS REPORT ---
Author Author 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 [facility] Address [address] [place] [address] Care Team Providers Care Remote Sensing Research Scientist Name Role Phone 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 Unavailable PROBLEMS Type Condition ICD9-CM Code [id number] Code Onset Dates Condition Status SNOMED Code Problem Hypothyroid E03.9 Active 07729894 Problem 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 Active 38355124 Problem Obesity due to excess calories, unspecified obesity severity E66.09 Active 834907150 Problem Generalized anxiety disorder F41.1 Active 50360645 Problem Major depressive disorder, recurrent episode, moderate F33.1 Active 468656677 Problem Major depressive disorder, recurrent, mild F33.0 Active 79969907 Problem Obstructive sleep apnea G47.33 Active 63338383 Problem Restless legs G25.81 Active 95419400 Problem Attention-deficit hyperactivity disorder, predominantly inattentive type F90.0 Active 65996759 Problem Chronic hepatitis K73.9 Active 64020145 Problem Neuralgia M79.2 Active 44484570 Problem Folic acid deficiency E53.8 Active 421213287 Problem Primary osteoarthritis of both knees M17.0 Active 673293697 Problem Insomnia G47.00 Active 447864103 Problem Depression, major, recurrent, mild F33.0 Active 397628234 Problem Hypertension I10 Active 77085971 Problem Low back pain M54.5 Active 527302659 Problem Hyperlipidemia E78.5 Active 76147878 Problem Chronic viral hepatitis B without delta-agent B18.1 Active 913843606 ALLERGIES Substance Reaction Event Type Date Status Trazodone HCl "weird dreams" Drug Allergy December, Active SOCIAL HISTORY Never Assessed PLAN OF CARE Activity Details Follow Up 4 Weeks Reason:wt mgmt VITAL SIGNS Height 64 in 2017-01-09 Weight 229 lbs 2017-01-09 Temperature 97.4 degrees Fahrenheit 2017-01-09 Heart Rate 60 bpm 2017-01-09 Respiratory Rate 18 2017-01-09 BMI 39.30 kg/m2 2017-01-09 Blood pressure systolic 140 mmHg 2017-01-09 Blood pressure diastolic 90 mmHg 2017-01-09 MEDICATIONS Medication Instructions Dosage Frequency Start Date End Date Duration Status HydrOXYzine HCl 10 MG Orally daily 1 tablet BID as needed for anxiety 24h 28 Oct, 2016 30 days Active Truvada 200-300 mg Orally Once a day 1 tablet 24h 30 Active Neurontin 300 MG Orally 2 times a day 1 capsule 12h 15 Aug, 2016 30 days Active Effexor XR 150 MG Orally Once a day 2 capsule with food 24h 30 Active Levothyroxine Sodium 100 MCG Orally Once a day 1 tablet 24h 30 Active Fish Oil 1000 MG Orally 3 times a day 1 capsule 8h Active Pantoprazole Sodium 40 MG Orally Once a day 1 tablet 24h 90 Active Toprol XL 100 MG Orally Once a day 1 tablet at bedtime 24h 90 Active Loratadine 10 mg Orally Once a day as needed for allergies 1 tablet Apr, Active Requip 1 MG Orally twice a day 1 tablet 12h 90 days Active Doxepin HCl 25 MG Orally Once a day 1-2 capsules at bedtime 24h Active Cyclobenzaprine HCl 10 mg Orally 2 times a day prn back pain 1 tablet as needed Oct, Active Lisinopril 20 MG Orally Once a day 1 tablet 24h 30 Active Albuterol Sulfate 90 mcg/actuation 2 puffs by Inhalation route every 4-6 hours as needed PRN cough or wheezing Aug, Active RESULTS No Results PROCEDURES Procedure Date Ordered Result Body Site [facility] VISIT ESTABLISHED PATIENT January 09, 2017 IMMUNIZATIONS No Known Immunizations MEDICAL (GENERAL) [...]
--- OUTSIDE RECORDS SUMMARY | 2017-09-29 06:26 | XMS REPORT ---
Author Author Shayan GUSTAVO Organization [facility] Address [address] [place] [address] Care Team Providers Care Engineer Remote Control Diesel Name Role Phone lucinaGUSTAVO Mohan Unavailable PROBLEMS Type Condition ICD9-CM Code [id number] Code Onset Dates Condition Status SNOMED Code Problem Hypothyroid E03.9 Active 63272225 Problem 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 Active 13065021 Problem Obesity due to excess calories, unspecified obesity severity E66.09 Active 161497462 Problem Generalized anxiety disorder F41.1 Active 79357920 Problem Major depressive disorder, recurrent episode, moderate F33.1 Active 665420368 Problem Major depressive disorder, recurrent, mild F33.0 Active 32906370 Problem Obstructive sleep apnea G47.33 Active 09303777 Problem Restless legs G25.81 Active 39058172 Problem Attention-deficit hyperactivity disorder, predominantly inattentive type F90.0 Active 23313602 Problem Chronic hepatitis K73.9 Active 25365647 Problem Neuralgia M79.2 Active 40742666 Problem Folic acid deficiency E53.8 Active 981647808 Problem Primary osteoarthritis of both knees M17.0 Active 404565966 Problem Insomnia G47.00 Active 690065558 Problem Depression, major, recurrent, mild F33.0 Active 517898774 Problem Hypertension I10 Active 66292000 Problem Low back pain M54.5 Active 084423740 Problem Hyperlipidemia E78.5 Active 69327703 Problem Chronic viral hepatitis B without delta-agent B18.1 Active 115460689 ALLERGIES Substance Reaction Event Type Date Status Trazodone HCl "weird dreams" Drug Allergy Oct, Active SOCIAL HISTORY Never Assessed PLAN OF CARE Activity Details Follow Up 3 Months Reason: VITAL SIGNS Height 64 in 2016-10-30 Weight 220.0 lbs 2016-10-30 Heart Rate 64 bpm 2016-10-30 Respiratory Rate 22 2016-10-30 BMI 37.76 kg/m2 2016-10-30 Blood pressure systolic 155 mmHg 2016-10-30 Blood pressure diastolic 110 mmHg 2016-10-30 MEDICATIONS Medication Instructions Dosage Frequency Start Date End Date Duration Status Toprol XL 100 MG Orally Once a day 1 tablet at bedtime 24h 90 Active Lisinopril 20 MG Orally Once a day 1 tablet 24h 30 Active Pravastatin Sodium 80 MG TAKE ONE TABLET BY MOUTH AT BEDTIME (AVOID GRAPEFRUIT JUICE AND PRODUCTS WITH GRAPEFRUIT) 90 Active Levothyroxine Sodium 100 MCG Orally Once a day 1 tablet 24h Active Albuterol Sulfate 90 mcg/actuation 2 puffs by Inhalation route every 4-6 hours as needed PRN cough or wheezing Aug, Active Loratadine 10 mg Orally Once a day as needed for allergies 1 tablet Apr, Active Requip 1 MG Orally Once a day 1 tablet 1 to 3 hours before bedtime 24h 90 Active HydrOXYzine HCl 10 MG Orally daily 1 tablet BID as needed for anxiety 24h Oct, 30 days Active Doxepin HCl 25 MG Orally Once a day 1-2 capsules at bedtime 24h Active Truvada 200-300 mg Orally Once a day 1 tablet 24h Oct, Active Cyclobenzaprine HCl 10 mg Orally 2 times a day prn back pain 1 tablet as needed Oct, Active Neurontin 300 MG Orally 2 times a day Start with one at bedtime and then in a week use 1 twice a day 1 capsule Aug, Active Fish Oil 1000 MG Orally 3 times a day 1 capsule 8h Active Effexor XR 150 MG Orally Once a day 2 capsule with food 24h Active Pantoprazole Sodium 40 MG Orally Once a day 1 tablet 24h 90 Active RESULTS No Results PROCEDURES Procedure Date Ordered Result Body Site [facility] VISIT ESTABLISHED PATIENT Oct 30, 2016 IMMUNIZATIONS No Known Immunizations MEDICAL (GENERAL) [...]
--- OUTSIDE RECORDS SUMMARY | 2017-09-29 06:26 | XMS REPORT ---
Author CHAPITO Melo [facility] [employer] Address Unknown Phone Unavailable Care Team Providers Care Telephone Surveyor Name Role Phone CHAPITO VINSON CP Unavailable [...] Coding System Code Date THERAPEUTIC EXERCISES CPT-4 03644 Apr 03, 2016 Results No Known Results Summary Purpose eClinicalWorks Submission
--- OUTSIDE RECORDS SUMMARY | 2017-09-29 06:26 | XMS REPORT ---
Author Author JARED GUSTAVO Organization [facility] Address [address] [place] [address] Care Team Providers Care Repairer Veneer Sheet Name Role Phone GUSTAVO COLEMAN Unavailable PROBLEMS Type Condition ICD9-CM Code [id number] Code Onset Dates Condition Status SNOMED Code Problem Hypertension 401.9 Active 97402265 Problem Primary osteoarthritis of both knees M17.0 Active 126169212 Problem Neuralgia M79.2 Active 59698499 Problem Insomnia G47.00 Active 294195881 Problem Hypothyroidism, unspecified type E03.9 Active 45159325 Problem Hypertension I10 Active 52689552 Problem Chronic hepatitis K73.9 Active 90021968 Problem ADD (attention deficit disorder) F90.0 Active 846795583 Problem Hyperlipidemia E78.5 Active 72016541 Problem Unspecified vitamin D deficiency 268.9 Active 64214122 Problem Lumbago 724.2 Active 225336945 Problem Unspecified sleep apnea 780.57 Active 20958006 Problem Chronic hepatitis C without mention of hepatic coma 070.54 Active 508001868 Problem 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, chronic, without mention of hepatitis delta 070.32 Active 983132576 ALLERGIES Unknown Allergies SOCIAL HISTORY No smoking Hx information available PLAN OF CARE VITAL SIGNS MEDICATIONS Medication Instructions Dosage Frequency Start Date End Date Duration Status Effexor XR 150 MG Orally Once a day 2 capsule with food 24h Active RESULTS No Results PROCEDURES No Known procedures IMMUNIZATIONS No Known Immunizations
--- OUTSIDE RECORDS SUMMARY | 2017-09-29 06:26 | XMS REPORT ---
Author Author 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 Organization [employer] Address Unknown Phone Unavailable Care Team Providers Care Rabbit Fancier Name Role Phone 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 CP Unavailable [...] Start Date End Date Status Dosage Hydrocodone-Acetaminophen [facility] [address]-39 10-325 MG Orally 2 times a day March 15, 2016 1 tablet Results No Known Results Summary Purpose eClinicalWorks Submission
--- OUTSIDE RECORDS SUMMARY | 2017-09-29 06:27 | XMS REPORT ---
Author Author 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 Organization [employer] Address Unknown Phone Unavailable Care Team Providers Care Alternative Financing Specialist Name Role Phone 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 CP Unavailable [...] ADD (attention deficit disorder) F90.0 Active Assessment Low back pain M54.5 Active Problem Lumbago 724.2 Active Problem Unspecified sleep apnea 780.57 Active Problem Chronic hepatitis C without mention of hepatic coma 070.54 Active Problem 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, chronic, without mention of hepatitis delta 070.32 Active Problem Unspecified vitamin D deficiency 268.9 Active Problem Hypertension 401.9 Active Medications Medication Code System Code Instructions Start Date End Date Status Dosage Hydrocodone-Acetaminophen [facility] [address]-16 10-325 MG Orally 2 times a day March 15, 2016 1 tablet Results No Known Results Summary Purpose eClinicalWorks Submission
--- OUTSIDE RECORDS SUMMARY | 2017-09-29 06:27 | XMS REPORT ---
Author Author 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 [facility] eClinicalWorks Address Unknown Phone Unavailable Care Team Providers Care Kelp Or Seagrass Gatherer Name Role Phone 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 CP Unavailable [...] disorder, recurrent episode, mild 296.31 Active Assessment Hypothyroid E03.9 Active Assessment Chronic hepatitis K73.9 Active Problem Lumbago 724.2 Active Problem Major depressive disorder, recurrent episode, moderate 296.32 Active Problem Chronic hepatitis C without mention of hepatic coma 070.54 Active Problem Unspecified sleep apnea 780.57 Active Problem Unspecified vitamin D deficiency 268.9 Active Problem Attention deficit disorder of childhood without mention of hyperactivity 314.00 Active Medications Medication Code System Code Instructions Start Date End Date Status Dosage Loratadine [facility] [address]-77 10 mg Orally Once a day as needed for allergies Apr 12, 2016 1 tablet Requip [facility] 36891490400 1 MG Orally Once a day 1 tablet 1 to 3 hours before bedtime Toprol XL [facility] [address]-39 100 MG Orally Once a day January 23, 2016 1 tablet at bedtime Hydrocodone-Acetaminophen [facility] [address]-20 10-325 MG Orally 2 times a day March 15, 2016 1 tablet Albuterol Sulfate [facility] [address]-32 90 mcg/actuation Aug 24, 2014 2 puffs by Inhalation route every 4-6 hours as needed PRN cough or wheezing Effexor XR [facility] [address]-92 150 MG Orally Once a day 2 capsule with food Truvada [facility] 82520750578 200-300 MG TAKE ONE TABLET BY MOUTH DAILY Pantoprazole Sodium [facility] [address]-29 40 MG Orally Once a day 1 tablet Levothyroxine Sodium [facility] [address]-25 100 MCG Orally Once a day 1 tablet Alprazolam [facility] [address]-62 0.5 MG Orally Three times a day prn ANXIETY TAKE ONE TABLET Fish Oil [facility] [address]-55 1000 MG Orally 3 times a day 1 capsule Lisinopril [facility] 00931975746 20 MG Orally Once a day 1 tablet Pravastatin Sodium [facility] [address]-70 80 MG TAKE ONE TABLET BY MOUTH AT BEDTIME (AVOID GRAPEFRUIT JUICE AND PRODUCTS WITH GRAPEFRUIT) Ritalin [facility] [address]-32 10 mg Orally daily November 17, 2014 1 tablet in am and 1 tab before 3pm Procedures Procedure Coding System Code Date Office Visit, Est Pt., Level 3 CPT-4 17837 May 14, 2016 [facility] VISIT ESTABLISHED PATIENT CPT-4 G0467 May 14, 2016 Vital Signs Date/Time: May 14, 2016 Cardiac Monitoring Heart Rate 56 bpm Weight 203.8 lbs Height 64 in BMI 34.98 Index Blood Pressure Diastolic 90 mmHg Blood Pressure Systolic 113 mmHg Results No Known Results Summary Purpose eClinicalWorks Submission
--- OUTSIDE RECORDS SUMMARY | 2017-09-29 06:27 | XMS REPORT ---
Author Author 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 Organization [facility] Address [address] [place] [address] Care Team Providers Care Airport Driver Name Role Phone 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 Unavailable PROBLEMS Type Condition ICD9-CM Code [id number] Code Onset Dates Condition Status SNOMED Code Problem Hypertension 401.9 Active 15008366 Problem Primary osteoarthritis of both knees M17.0 Active 673452961 Problem Neuralgia M79.2 Active 81402604 Problem Insomnia G47.00 Active 116105599 Problem Hypothyroidism, unspecified type E03.9 Active 87688762 Problem Hypertension I10 Active 69175443 Problem Chronic hepatitis K73.9 Active 74959680 Problem ADD (attention deficit disorder) F90.0 Active 024912397 Problem Hyperlipidemia E78.5 Active 01522733 Problem Unspecified vitamin D deficiency 268.9 Active 18052666 Problem Lumbago 724.2 Active 421156221 Assessment Low back pain M54.5 08 May, 2016 Active 603459672 Problem Unspecified sleep apnea 780.57 Active 64330116 Problem Chronic hepatitis C without mention of hepatic coma 070.54 Active 727030928 Problem 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, chronic, without mention of hepatitis delta 070.32 Active 121562472 ALLERGIES Unknown Allergies SOCIAL HISTORY No smoking Hx information available PLAN OF CARE VITAL SIGNS MEDICATIONS Medication Instructions Dosage Frequency Start Date End Date Duration Status Hydrocodone-Acetaminophen 10-325 MG Orally 2 times a day 1 tablet 12h 14 Mar, 2016 Active RESULTS No Results PROCEDURES No Known procedures IMMUNIZATIONS No Known Immunizations
--- OUTSIDE RECORDS SUMMARY | 2017-09-29 06:27 | XMS REPORT ---
Author Author 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 Organization [employer] Address Unknown Phone Unavailable Care Team Providers Care Truck Leasing Manager Name Role Phone 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 CP [...] F90.0 Active Problem Lumbago 724.2 Active Problem Unspecified sleep apnea 780.57 Active Problem Chronic hepatitis C without mention of hepatic coma 070.54 Active Problem 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, chronic, without mention of hepatitis delta 070.32 Active Problem Unspecified vitamin D deficiency 268.9 Active Problem Hypertension 401.9 Active Medications No Known Medications Results No Known Results Summary Purpose eClinicalWorks Submission
--- OUTSIDE RECORDS SUMMARY | 2017-09-29 06:27 | XMS REPORT ---
Author Author TAYLOR CARVAJAL [facility] [employer] Address Unknown Phone Unavailable Care Team Providers Care Telephone Services Sales Representative Name Role Phone TAYLOR CARVAJAL CP Unavailable [...] Date End Date Status Dosage Alprazolam [facility] [address]-36 0.5 MG Orally Three times a day prn ANXIETY TAKE ONE TABLET Results No Known Results Summary Purpose eClinicalWorks Submission
--- OUTSIDE RECORDS SUMMARY | 2017-09-29 06:27 | XMS REPORT ---
Author GUSTAVO Brown [employer] Address Unknown Phone Unavailable Care Team Providers Care Microfilm Technician Name Role Phone GUSTAVO COLEMAN CP Unavailable [...] Problem Hypertension I10 Active Assessment Encounter for immunization Z23 Active Problem Major depressive disorder, recurrent episode, mild 296.31 Active Assessment Attention-deficit hyperactivity disorder, predominantly inattentive type F90.0 Active Assessment Major depressive disorder, recurrent, mild F33.0 Active Problem Lumbago 724.2 Active Problem Major [...] Date End Date Status Dosage Methylphenidate HCl [facility] [address]-62 10 MG Orally Twice a day 1 tablet Pravastatin Sodium [facility] [address]-73 80 MG TAKE ONE TABLET BY MOUTH AT BEDTIME (AVOID GRAPEFRUIT JUICE AND PRODUCTS WITH GRAPEFRUIT) Pantoprazole Sodium [facility] [address]-17 40 MG Orally Once a day 1 tablet Alprazolam [facility] [address]-07 0.5 MG Orally Three times a day prn ANXIETY TAKE ONE TABLET Toprol XL [facility] [address]-48 100 MG Orally Once a day January 23, 2016 1 tablet at bedtime Truvada [facility] 03853533687 200-300 MG TAKE ONE TABLET BY MOUTH DAILY Potassium Chloride Mandy ER [facility] [address]-17 10 MEQ Orally Twice a day 1 tablet with food Requip [facility] 28866893577 1 MG Orally Once a day 1 tablet 1 to 3 hours before bedtime Effexor XR [facility] 32253035985 150 MG Orally Once a day 2 capsule with food Albuterol Sulfate [facility] [address]-63 90 mcg/actuation Aug 24, 2014 2 puffs by Inhalation route every 4-6 hours as needed PRN cough or wheezing Doxepin HCl [facility] [address]-81 25 MG Orally Once a day Jun 12, 2016 1 -2 capsules at bedtime Fish Oil [facility] [address]-94 1000 MG Orally 3 times a day 1 capsule Levothyroxine Sodium [facility] [address]-14 100 MCG Orally Once a day 1 tablet Lisinopril [facility] 54887986443 20 MG Orally Once a day 1 tablet Hydrocodone-Acetaminophen [facility] [address]-20 10-325 MG Orally 2 times a day March 15, 2016 1 tablet Procedures Procedure Coding System Code Date Office Visit, Est Pt., Level 3 CPT-4 80767 Jun 12, 2016 FLUARIX QUAD P-FREE 3 AND UP .50 2015 CPT-4 52935 Jun 12, 2016 [facility] VISIT ESTABLISHED PATIENT CPT-4 G0467 Jun 12, 2016 SINGLE IMMUNIZATION ADMIN CPT-4 36720 Jun 12, 2016 Vital Signs Date/Time: Jun 12, 2016 Cardiac Monitoring Heart Rate 52 bpm Weight 198.9 lbs Height 64 in BMI 34.14 Index Blood Pressure Diastolic 84 mmHg Blood Pressure Systolic 118 mmHg Results No Known Results Immunizations Vaccine Administration Date FLUARIX QUAD P-FREE 3 AND UP .50 2015Jun 12, 2016 Summary Purpose eClinicalWorks Submission
--- OUTSIDE RECORDS SUMMARY | 2017-09-29 06:27 | XMS REPORT ---
Author CHAPITO Melo Organization [employer] Address Unknown Phone Unavailable Care Team Providers Care Gunnery/Ordnance Officer Name Role Phone CHAPITO VINSON CP Unavailable [...] Coding System Code Date THERAPEUTIC EXERCISES CPT-4 22506 Apr 16, 2016 Results No Known Results Summary Purpose eClinicalWorks Submission
--- OUTSIDE RECORDS SUMMARY | 2017-09-29 06:27 | XMS REPORT ---
Author Author 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 [facility] Address [address] [place] [address] Care Team Providers Care Home Care Associate Name Role Phone 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 Unavailable PROBLEMS Type Condition ICD9-CM Code [id number] Code Onset Dates Condition Status SNOMED Code Problem Hypothyroid E03.9 Active 93856422 Problem 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 Active 66098912 Problem Obesity due to excess calories, unspecified obesity severity E66.09 Active 055438555 Problem Generalized anxiety disorder F41.1 Active 61124076 Problem Major depressive disorder, recurrent episode, moderate F33.1 Active 214655131 Problem Major depressive disorder, recurrent, mild F33.0 Active 38110523 Problem Obstructive sleep apnea G47.33 Active 91812257 Problem Restless legs G25.81 Active 79677248 Problem Attention-deficit hyperactivity disorder, predominantly inattentive type F90.0 Active 49726795 Problem Chronic hepatitis K73.9 Active 38668444 Problem Neuralgia M79.2 Active 21300506 Problem Folic acid deficiency E53.8 Active 760851483 Problem Primary osteoarthritis of both knees M17.0 Active 383140543 Problem Insomnia G47.00 Active 603172613 Problem Depression, major, recurrent, mild F33.0 Active 630027814 Problem Hypertension I10 Active 99637655 Problem Low back pain M54.5 Active 912733205 Problem Hyperlipidemia E78.5 Active 23108137 Problem Chronic viral hepatitis B without delta-agent B18.1 Active 120936775 ALLERGIES Substance Reaction Event Type Date Status Trazodone HCl "weird dreams" Drug Allergy Sep, Active SOCIAL HISTORY No smoking Hx information available PLAN OF CARE Activity Details Follow Up prn Reason: VITAL SIGNS Height 64 in 2016-09-17 Weight 224.3 lbs 2016-09-17 Temperature 98.3 degrees Fahrenheit 2016-09-17 Heart Rate 84 bpm 2016-09-17 Respiratory Rate 24 2016-09-17 Oximetry on room air:98 % 2016-09-17 BMI 38.50 kg/m2 2016-09-17 Blood pressure systolic 150 mmHg 2016-09-17 Blood pressure diastolic 98 mmHg 2016-09-17 MEDICATIONS Medication Instructions Dosage Frequency Start Date End Date Duration Status Fish Oil 1000 MG Orally 3 times a day 1 capsule 8h Active Loratadine 10 mg Orally Once a day as needed for allergies 1 tablet Apr, Active Levothyroxine Sodium 75 MCG Orally Once a day 1 tablet 24h 60 days Active Doxepin HCl 25 MG Orally Once a day 1-2 capsules at bedtime 24h Jun, Active Toprol XL 100 MG Orally Once a day 1 tablet at bedtime 24h 90 Active Albuterol Sulfate 90 mcg/actuation 2 puffs by Inhalation route every 4-6 hours as needed PRN cough or wheezing Aug, Active Pravastatin Sodium 80 MG TAKE ONE TABLET BY MOUTH AT BEDTIME (AVOID GRAPEFRUIT JUICE AND PRODUCTS WITH GRAPEFRUIT) 90 Active Lisinopril 20 MG Orally Once a day 1 tablet 24h 30 Active Neurontin 300 MG Orally 2 times a day Start with one at bedtime and then in a week use 1 twice a day 1 capsule Aug, Active Effexor XR 150 MG Orally Once a day 2 capsule with food 24h Active RESULTS Name Result Date Reference Range PTH (INTACT) 2016-09-17 PTH, Intact 87 15-65 HEP B DNA QUANT 2016-09-17 HBV IU/mL 10 log10 HBV IU/mL 1.000 Test Information: VITAMIN B12 2016-09-17 Vitamin B12 285 211-946 FOLATE (FOLIC ACID) 2016-09-17 Folate (Folic Acid), Serum 2.1 >3.0 PROCEDURES Procedure Date Ordered Related Diagnosis Body Site MEASURE BLOOD OXYGEN LEVEL Sep 17, 2016 HEPATITIS B, DNA, QUANT Sep 17, 2016 VENIPUNCT, ROUTINE* Sep 17, 2016 [facility] Sep 17, 2016 Office Visit, Est Pt., Level 3 Sep 17, 2016 [facility] VISIT ESTABLISHED PATIENT Sep 17, 2016 IMMUNIZATIONS No Known Immunizations
--- OUTSIDE RECORDS SUMMARY | 2017-09-29 06:27 | XMS REPORT ---
Author Author 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 [facility] Address [address] [place] [address] Care Team Providers Care Patient'S Librarian Name Role Phone 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 Unavailable PROBLEMS Type Condition ICD9-CM Code [id number] Code Onset Dates Condition Status SNOMED Code Problem Hypothyroid E03.9 Active 79438719 Problem 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 Active 35404939 Problem Obesity due to excess calories, unspecified obesity severity E66.09 Active 077983893 Problem Generalized anxiety disorder F41.1 Active 53992954 Problem Major depressive disorder, recurrent episode, moderate F33.1 Active 349976708 Problem Major depressive disorder, recurrent, mild F33.0 Active 15489266 Problem Obstructive sleep apnea G47.33 Active 19653926 Problem Restless legs G25.81 Active 50035784 Problem Attention-deficit hyperactivity disorder, predominantly inattentive type F90.0 Active 70308133 Problem Chronic hepatitis K73.9 Active 07062385 Problem Neuralgia M79.2 Active 90641277 Problem Folic acid deficiency E53.8 Active 286572493 Problem Primary osteoarthritis of both knees M17.0 Active 498298195 Problem Insomnia G47.00 Active 428540902 Problem Depression, major, recurrent, mild F33.0 Active 411912143 Problem Hypertension I10 Active 10955379 Problem Low back pain M54.5 Active 494364680 Problem Hyperlipidemia E78.5 Active 38506672 Problem Chronic viral hepatitis B without delta-agent B18.1 Active 558709409 ALLERGIES Substance Reaction Event Type Date Status Trazodone HCl "weird dreams" Drug Allergy Oct, Active SOCIAL HISTORY Never Assessed PLAN OF CARE Activity Details Follow Up prn Reason: VITAL SIGNS Height 64 in 2016-10-04 Weight 220 lbs 2016-10-04 Temperature 98.3 degrees Fahrenheit 2016-10-04 Heart Rate 58 bpm 2016-10-04 Respiratory Rate 22 2016-10-04 Oximetry 98 % 2016-10-04 BMI 37.76 kg/m2 2016-10-04 Blood pressure systolic 160 mmHg 2016-10-04 Blood pressure diastolic 98 mmHg 2016-10-04 MEDICATIONS Medication Instructions Dosage Frequency Start Date End Date Duration Status Doxepin HCl 25 MG Orally Once a day 1-2 capsules at bedtime 24h 30 Active Albuterol Sulfate 90 mcg/actuation 2 puffs by Inhalation route every 4-6 hours as needed PRN cough or wheezing Aug, Active Neurontin 300 MG Orally 2 times a day Start with one at bedtime and then in a week use 1 twice a day 1 capsule Aug, Active Levothyroxine Sodium 100 MCG Orally Once a day 1 tablet 24h Active Loratadine 10 mg Orally Once a day as needed for allergies 1 tablet Apr, Active Toprol XL 100 MG Orally Once a day 1 tablet at bedtime 24h 90 Active Lisinopril 20 MG Orally Once a day 1 tablet 24h 30 Active Effexor XR 150 MG Orally Once a day 2 capsule with food 24h 30 Active Fish Oil 1000 MG Orally 3 times a day 1 capsule 8h Active Pravastatin Sodium 80 MG TAKE ONE TABLET BY MOUTH AT BEDTIME (AVOID GRAPEFRUIT JUICE AND PRODUCTS WITH GRAPEFRUIT) 90 Active Truvada 200-300 mg Orally Once a day 1 tablet 24h Oct, Active RESULTS No Results PROCEDURES Procedure Date Ordered Result Body Site MEASURE BLOOD OXYGEN LEVEL Oct 04, 2016 [facility] VISIT ESTABLISHED PATIENT Oct 04, 2016 IMMUNIZATIONS No Known Immunizations MEDICAL (GENERAL) [...]
--- OUTSIDE RECORDS SUMMARY | 2017-09-29 06:27 | XMS REPORT ---
Author Author 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 [facility] eClinicalWorks Address Unknown Phone Unavailable Care Team Providers Care Residential Sales Executive Name Role Phone 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 CP Unavailable Allergies, Adverse Reactions, Alerts Substance Reaction Event Type N.K.D.A. Info Not Available Non Drug Allergy Problems Problem Type Condition Code Onset Dates Condition Status Problem Unspecified vitamin D deficiency 268.9 Active Problem Major depressive disorder, recurrent episode, moderate 296.32 Active Problem Lumbago 724.2 Active Problem Primary osteoarthritis of both knees M17.0 Active Problem Neuralgia M79.2 Active Problem Chronic hepatitis K73.9 Active Problem Attention deficit disorder of childhood without mention of hyperactivity 314.00 Active Problem Unspecified sleep apnea 780.57 Active Problem Hypertension 401.9 Active Problem 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, chronic, without mention of hepatitis delta 070.32 Active Assessment Primary osteoarthritis of both knees M17.0 Active Assessment Chronic hepatitis K73.9 Active Problem Major depressive disorder, recurrent episode, mild 296.31 Active Assessment Neuralgia M79.2 Active Problem Chronic hepatitis C without mention of hepatic coma 070.54 Active Medications Medication Code System Code Instructions Start Date End Date Status Dosage Toprol XL [facility] [address]-73 100 MG Orally Once a day at hs November 17, 2014 take 1 tablet by Oral route 2 times a day Albuterol Sulfate [facility] [address]-21 90 mcg/actuation Aug 24, 2014 2 puffs by Inhalation route every 4-6 hours as needed [place] [address]-04 20 MG Orally Twice a day Dr [place] to sign for Osmar November 17, 2014 1 tablet Xyzal [facility] [address]-54 5 mg November 09, 2014 1 tablet by Oral route 1 time per day PRN prn cough Lisinopril [facility] 48979024148 20 MG Orally Once a day 1 tablet Levothyroxine Sodium [facility] 96916616656 75 MCG TAKE ONE TABLET BY MOUTH ONCE DAILY (REPEAT LAB IN LATE MARCH 2015) Fish Oil [facility] [address]-83 1000 MG Orally 3 times a day 1 capsule Abilify [facility] [address]-88 10 MG Orally Once a day November 12, 2014 1 tablet Potassium Chloride Mandy ER [facility] 39664838893 10 MEQ Orally 2 times a day 1 tablet Effexor XR [facility] [address]-38 75 MG TAKE ONE CAPSULE BY MOUTH ONCE DAILY WITH FOOD Voltaren-XR [facility] [address]-76 100 MG Orally 2 times a day Aug 09, 2015 1 tablet Truvada [facility] 37528169031 200-300 MG TAKE ONE TABLET BY MOUTH DAILY Alprazolam [facility] [address]-84 0.5 MG Orally Three times a day prn ANXIETY must last 30 days NO EARLY REFILL TAKE ONE TABLET Ambien [facility] [address]-69 5 MG Orally Once a day January 11, 2015 1 tablet at bedtime as needed Cholecalciferol [facility] [address]-86 2000 UNIT Orally Once a day 1 capsule Pravastatin Sodium [facility] 82298756828 80 MG TAKE ONE TABLET BY MOUTH DAILY AT BEDTIME (AVOID GRAPEFRUIT JUICE AND PRODUCTS WITH GRAPEFRUIT) Pantoprazole Sodium [facility] [address]-64 40 MG Orally Once a day 1 tablet Procedures Procedure Coding System Code Date LAB NOT BILLED BY [facility] CPT-4 NOBLL Aug 09, 2015 VENIPUNCT, ROUTINE* CPT-4 63814 Aug 09, 2015 HEPATITIS B, DNA, QUANT CPT-4 03928 Aug 09, 2015 Office Visit, Est Pt., Level 3 CPT-4 24467 Aug 09, 2015 [facility] VISIT ESTABLISHED PATIENT CPT-4 G0467 Aug 09, 2015 Vital Signs Date/Time: Aug 09, 2015 Temperature 97.2 F Weight 194.2 lbs Height 64 in BMI 33.33 Index Blood Pressure Diastolic 60 mmHg Blood Pressure Systolic 118 mmHg Cardiac Monitoring Heart Rate 60 bpm Results Name Result Date Reference Range Unit Abnormality Flag CMP ----Calcium, Serum 8.8 20150809 8.7-10.2 mg/dL ----Carbon Dioxide, Total 25 20150809 18-29 mmol/L ----ALT (SGPT) 18 20150809 0-32 IU/L ----Creatinine, Serum 1.31 74807140 0.57-1.00 mg/dL H ----AST (SGOT) 41 11677762 0-40 IU/L H ----eGFR If NonAfricn Am 46 26860354 >59 mL/min/1.73 L ----Alkaline Phosphatase, S 177 74549619 39-117 IU/L H ----eGFR If Africn Am 53 [id number] >59 mL/min/1.73 L ----Bilirubin, Total 0.3 84079343 0.0-1.2 mg/dL ----BUN/Creatinine Ratio 8 63075167 9-23 L ----A/G Ratio 1.2 90992371 1.1-2.5 ----Sodium, Serum 140 59979895 134-144 mmol/L ----Globulin, Total 3.2 82212705 1.5-4.5 g/dL ----Potassium, Serum 4.0 67102458 3.5-5.2 mmol/L ----Glucose, Serum 85 35046146 65-99 mg/dL ----Chloride, Serum 101 58278819 97-108 mmol/L ----Albumin, Serum 3.7 22208548 3.5-5.5 g/dL ----BUN 11 03697303 6-24 mg/dL ----Protein, Total, Serum 6.9 99366909 6.0-8.5 g/dL ROUTINE VENIPUNCTURE HEP B DNA QUANT ----log10 HBV IU/mL TNP 75106511 evo48YN/mL Summary Purpose eClinicalWorks Submission
--- OUTSIDE RECORDS SUMMARY | 2017-09-29 06:28 | XMS REPORT ---
Author Author 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 Organization [facility] Address [address] [place] [address] Care Team Providers Care Paperhanger Contractor Name Role Phone 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 Unavailable PROBLEMS Type Condition ICD9-CM Code XNN17-HB Code Onset Dates Condition Status SNOMED Code Problem Chronic hepatitis K73.9 Active 45336930 Problem Hyperlipidemia E78.5 Active 45654241 Problem Hypertension I10 Active 59750992 Problem Chronic viral hepatitis B without delta-agent B18.1 Active 448855986 Problem Low back pain M54.5 Active 640057566 Problem Hypothyroidism, unspecified type E03.9 Active 95492232 Problem ADD (attention deficit disorder) F90.0 Active 375450497 Problem Depression, major, recurrent, mild F33.0 Active 486563299 Problem Insomnia G47.00 Active 869977083 Problem Chronic hepatitis C without mention of hepatic coma 070.54 Active 515091440 Problem Unspecified vitamin D deficiency 268.9 Active 78754215 Problem 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, chronic, without mention of hepatitis delta 070.32 Active 941268543 Problem Hypertension 401.9 Active 15792240 Problem Lumbago 724.2 Active 554419227 Problem Neuralgia M79.2 Active 54003559 Problem Unspecified sleep apnea 780.57 Active 73697474 Problem Primary osteoarthritis of both knees M17.0 Active 510464301 ALLERGIES Unknown Allergies SOCIAL HISTORY No smoking Hx information available PLAN OF CARE VITAL SIGNS MEDICATIONS Medication Instructions Dosage Frequency Start Date End Date Duration Status Requip 1 MG Orally Once a day 1 tablet 1 to 3 hours before bedtime 24h 90 Active RESULTS No Results PROCEDURES No Known procedures IMMUNIZATIONS No Known Immunizations
--- OUTSIDE RECORDS SUMMARY | 2017-09-29 06:28 | XMS REPORT ---
Author Author 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 [facility] Address [address] [place] [address] Care Team Providers Care Dampener Name Role Phone 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 Unavailable PROBLEMS Type Condition ICD9-CM Code DTA18-MJ Code Onset Dates Condition Status SNOMED Code Problem Hypothyroid E03.9 Active 68887837 Problem 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 Active 08016450 Problem Obesity due to excess calories, unspecified obesity severity E66.09 Active 654583213 Problem Generalized anxiety disorder F41.1 Active 54491451 Problem Major depressive disorder, recurrent episode, moderate F33.1 Active 206513174 Problem Major depressive disorder, recurrent, mild F33.0 Active 10369626 Problem Obstructive sleep apnea G47.33 Active 21823502 Problem Restless legs G25.81 Active 69916631 Problem Attention-deficit hyperactivity disorder, predominantly inattentive type F90.0 Active 32409842 Problem Chronic hepatitis K73.9 Active 97952614 Problem Neuralgia M79.2 Active 72161791 Problem Folic acid deficiency E53.8 Active 239204605 Problem Primary osteoarthritis of both knees M17.0 Active 198239242 Problem Insomnia G47.00 Active 090017881 Problem Depression, major, recurrent, mild F33.0 Active 872880742 Problem Hypertension I10 Active 00355278 Problem Low back pain M54.5 Active 111979687 Problem Hyperlipidemia E78.5 Active 55752517 Problem Chronic viral hepatitis B without delta-agent B18.1 Active 926289511 ALLERGIES Unknown Allergies SOCIAL HISTORY No smoking Hx information available PLAN OF CARE VITAL SIGNS MEDICATIONS Unknown Medications RESULTS Name Result Date Reference Range PTH (INTACT) 2016-09-28 PTH, Intact 24 15-65 TSH 2016-09-28 TSH 46.670 0.450-4.500 CMP 2016-09-28 ALT (SGPT) <5 0-32 PTH (INTACT) 2016-09-28 PTH, Intact 24 15-65 Request Problem TNP TSH 2016-09-28 TSH 46.670 0.450-4.500 CMP 2016-09-28 Glucose, Serum 110 65-99 BUN 14 6-24 Creatinine, Serum 1.34 0.57-1.00 eGFR If NonAfricn Am 44 >59 eGFR If Africn Am 51 >59 BUN/Creatinine Ratio 10 9-23 Sodium, Serum 140 134-144 Potassium, Serum 3.8 3.5-5.2 Chloride, Serum 100 96-106 Carbon Dioxide, Total 22 18-29 Calcium, Serum 9.6 8.7-10.2 Protein, Total, Serum 6.9 6.0-8.5 Albumin, Serum 3.9 3.5-5.5 Globulin, Total 3.0 1.5-4.5 A/G Ratio 1.3 1.1-2.5 Bilirubin, Total 0.2 0.0-1.2 Alkaline Phosphatase, S 141 39-117 AST (SGOT) 9 0-40 ALT (SGPT) <5 0-32 PROCEDURES Procedure Date Ordered Related Diagnosis Body Site HEPATITIS B, DNA, QUANT Sep 28, 2016 VENIPUNCT, ROUTINE* Sep 28, 2016 IMMUNIZATIONS No Known Immunizations
--- OUTSIDE RECORDS SUMMARY | 2017-09-29 06:28 | XMS REPORT ---
Author Author 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 [facility] Address [address] [place] [address] Care Team Providers Care Oil Burner Mechanic Name Role Phone 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 Unavailable PROBLEMS Type Condition ICD9-CM Code WKJ16-CM Code Onset Dates Condition Status SNOMED Code Problem Hypothyroid E03.9 Active 27698988 Problem 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 Active 82848509 Problem Obesity due to excess calories, unspecified obesity severity E66.09 Active 052068260 Problem Generalized anxiety disorder F41.1 Active 47802661 Problem Major depressive disorder, recurrent episode, moderate F33.1 Active 579203817 Problem Major depressive disorder, recurrent, mild F33.0 Active 69857889 Problem Obstructive sleep apnea G47.33 Active 29422522 Problem Restless legs G25.81 Active 99216048 Problem Attention-deficit hyperactivity disorder, predominantly inattentive type F90.0 Active 02613786 Problem Chronic hepatitis K73.9 Active 53396944 Problem Neuralgia M79.2 Active 18904878 Problem Folic acid deficiency E53.8 Active 790434965 Problem Primary osteoarthritis of both knees M17.0 Active 462618831 Problem Insomnia G47.00 Active 209912240 Problem Depression, major, recurrent, mild F33.0 Active 753158169 Problem Hypertension I10 Active 59710525 Problem Low back pain M54.5 Active 288574869 Problem Hyperlipidemia E78.5 Active 18879127 Problem Chronic viral hepatitis B without delta-agent B18.1 Active 067436319 ALLERGIES No Information SOCIAL HISTORY Never Assessed PLAN OF CARE VITAL SIGNS MEDICATIONS Medication Instructions Dosage Frequency Start Date End Date Duration Status Cyclobenzaprine HCl 10 mg Orally 2 times a day prn back pain 1 tablet as needed Oct, Active RESULTS No Results PROCEDURES No [...]
--- OUTSIDE RECORDS SUMMARY | 2017-09-29 06:28 | XMS REPORT ---
Author Author 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 [facility] eClinicalWorks Address Unknown Phone Unavailable Care Team Providers Care Generalist Name Role Phone 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 CP Unavailable [...] E78.5 Active Problem Hypertension I10 Active Assessment Hypothyroidism, unspecified type E03.9 Active Problem Major depressive disorder, recurrent episode, [...] Start Date End Date Status Dosage Requip [facility] [address]-97 1 MG Orally Once a day November 08, 2015 1 tablet 1 to 3 hours before bedtime Potassium Chloride Mandy ER [facility] 70015274795 10 MEQ Orally 2 times a day 1 tablet Hydrocodone-Acetaminophen [facility] [address]-29 10-325 MG Orally 2 times a day March 15, 2016 1 tablet Lisinopril [facility] 46975716927 20 MG Orally Once a day 1 tablet Levothyroxine Sodium [facility] [address]-27 125 MCG Orally Once a day 1 tablet Pravastatin Sodium [facility] [address]-67 80 MG Orally Once a day TAKE ONE TABLET BY MOUTH DAILY AT BEDTIME (AVOID GRAPEFRUIT JUICE AND PRODUCTS WITH GRAPEFRUIT) Alprazolam [facility] [address]-46 0.5 MG Orally Three times a day prn ANXIETY TAKE ONE TABLET Effexor XR [facility] [address]-10 150 MG Orally Once a day 2 capsule with food Ritalin [facility] [address]-39 10 MG Orally daily November 17, 2014 Apr 10, 2016 1 tablet in am and 1 tab before 3pm Pantoprazole Sodium [facility] [address]-53 40 MG Orally Once a day 1 tablet Truvada [facility] 27459437951 200-300 MG TAKE ONE TABLET BY MOUTH DAILY Cholecalciferol [facility] [address]-45 2000 UNIT Orally Once a day 1 capsule Doxepin HCl [facility] [address]-73 10 MG Orally Once a day March 13, 2016 1 capsule at bedtime as needed for sleep Fish Oil [facility] [address]-28 1000 MG Orally 3 times a day 1 capsule Albuterol Sulfate [facility] [address]-05 90 mcg/actuation Aug 24, 2014 2 puffs by Inhalation route every 4-6 hours as needed PRN cough or wheezing Toprol XL [facility] [address]-28 100 MG Orally Once a day January 23, 2016 1 tablet at bedtime Results No Known Results Summary Purpose eClinicalWorks Submission
--- OUTSIDE RECORDS SUMMARY | 2017-09-29 06:28 | XMS REPORT ---
Author SRINI Brown eClinicalWorks Address Unknown Phone Unavailable Care Team Providers Care Medical Administrative Specialist Name Role Phone SRINI COLEMAN Unavailable Allergies No Known Allergies Problems Problem Type Condition Code Onset Dates Condition Status Problem Hypertension 401.9 Active Problem Primary osteoarthritis of both knees M17.0 Active Problem Neuralgia M79.2 Active Problem Insomnia G47.00 Active Problem Hypothyroidism, unspecified type E03.9 Active Problem Depression, major, recurrent, mild F33.0 Active Problem Hypertension I10 Active Problem Chronic hepatitis K73.9 Active Problem ADD (attention deficit disorder) F90.0 Active Problem Hyperlipidemia E78.5 Active Assessment ADD (attention deficit disorder) F90.0 Active Problem Unspecified vitamin D deficiency 268.9 Active Problem Lumbago 724.2 Active Assessment Depression, major, recurrent, mild F33.0 Active Problem Unspecified sleep apnea 780.57 Active Problem Chronic hepatitis C without mention of hepatic coma 070.54 Active Problem 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, chronic, without mention of hepatitis delta 070.32 Active Medications No Known Medications Procedures Procedure Coding System Code Date Psychotherapy, patient &/family, 30 minutes, established patient CPT-4 00695 Jul 02, 2016 [facility] VISIT MENTAL HEALTH ESTAB PT CPT-4 G0470 Jul 02, 2016 Results No Known Results Summary Purpose eClinicalWorks Submission
--- OUTSIDE RECORDS SUMMARY | 2017-09-29 06:28 | XMS REPORT ---
Author Author 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 Organization [facility] Address [address] [place] [address] Care Team Providers Care Ship Carpenter Name Role Phone 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 Unavailable PROBLEMS Type Condition ICD9-CM Code GCC06-CX Code Onset Dates Condition Status SNOMED Code Problem Hypothyroid E03.9 Active 86886485 Problem 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 Active 25912955 Problem Obesity due to excess calories, unspecified obesity severity E66.09 Active 519354280 Problem Generalized anxiety disorder F41.1 Active 35587944 Problem Major depressive disorder, recurrent episode, moderate F33.1 Active 256909326 Problem Major depressive disorder, recurrent, mild F33.0 Active 92624538 Problem Obstructive sleep apnea G47.33 Active 75211588 Problem Restless legs G25.81 Active 40284298 Problem Attention-deficit hyperactivity disorder, predominantly inattentive type F90.0 Active 89117746 Problem Chronic hepatitis K73.9 Active 62888582 Problem Neuralgia M79.2 Active 19783101 Problem Folic acid deficiency E53.8 Active 459666024 Problem Primary osteoarthritis of both knees M17.0 Active 897753679 Problem Insomnia G47.00 Active 370238526 Problem Depression, major, recurrent, mild F33.0 Active 142352412 Problem Hypertension I10 Active 73152173 Problem Low back pain M54.5 Active 125585437 Problem Hyperlipidemia E78.5 Active 46095719 Problem Chronic viral hepatitis B without delta-agent B18.1 Active 870534744 ALLERGIES Unknown Allergies SOCIAL HISTORY No smoking Hx information available PLAN OF CARE VITAL SIGNS MEDICATIONS Unknown Medications RESULTS No Results PROCEDURES No Known procedures IMMUNIZATIONS No Known Immunizations
--- OUTSIDE RECORDS SUMMARY | 2017-09-29 06:28 | XMS REPORT ---
Author Author 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 [facility] eClinicalWorks Address Unknown Phone Unavailable Care Team Providers Care Authorization Nurse Name Role Phone 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 CP Unavailable Allergies, Adverse Reactions, Alerts Substance Reaction Event Type Trazodone HCl "weird dreams" Drug Allergy Problems Problem Type Condition Code Onset Dates Condition Status Problem 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, chronic, without mention of hepatitis delta 070.32 Active Problem Neuralgia M79.2 Active Problem Hypertension 401.9 Active Problem Hypothyroidism, unspecified type E03.9 Active Assessment Hypothyroidism, unspecified type E03.9 Active Problem ADD (attention deficit disorder) F90.0 Active Problem Insomnia G47.00 Active Problem Chronic hepatitis K73.9 Active Problem Primary osteoarthritis of both knees M17.0 Active Problem Hyperlipidemia E78.5 Active Problem Hypertension I10 Active Assessment Low back pain M54.5 Active Problem Major depressive disorder, recurrent episode, mild 296.31 Active Assessment Hypothyroid E03.9 Active Assessment Other chronic pain G89.29 Active Problem Lumbago 724.2 Active Problem Major depressive disorder, recurrent episode, moderate 296.32 Active Problem Chronic hepatitis C without mention of hepatic coma 070.54 Active Problem Unspecified sleep apnea 780.57 Active Problem Unspecified vitamin D deficiency 268.9 Active Problem Attention deficit disorder of childhood without mention of hyperactivity 314.00 Active Medications Medication Code System Code Instructions Start Date End Date Status Dosage Pravastatin Sodium [facility] [address]-27 80 MG Orally Once a day TAKE ONE TABLET BY MOUTH DAILY AT BEDTIME (AVOID GRAPEFRUIT JUICE AND PRODUCTS WITH GRAPEFRUIT) Fish Oil [facility] [address]-43 1000 MG Orally 3 times a day 1 capsule Levothyroxine Sodium [facility] 45849023809 100 MCG Orally Once a day 1 tablet Doxepin HCl [facility] [address]-10 10 MG Orally Once a day March 13, 2016 1 capsule at bedtime as needed for sleep Ritalin [facility] [address]-21 10 MG Orally daily November 17, 2014 Apr 10, 2016 1 tablet in am and 1 tab before 3pm Potassium Chloride Mandy ER [facility] 53575315841 10 MEQ Orally 2 times a day 1 tablet Requip [facility] [address]-91 1 MG Orally Once a day November 08, 2015 1 tablet 1 to 3 hours before bedtime Hydrocodone-Acetaminophen [facility] [address]-55 10-325 MG Orally 2 times a day March 15, 2016 1 tablet Doxycycline Hyclate [facility] [address]-17 100 MG Orally every 12 hrs March 07, 2016 March 17, 2016 1 capsule Lisinopril [facility] 84504169130 20 MG Orally Once a day 1 tablet Truvada [facility] 33050279837 200-300 MG TAKE ONE TABLET BY MOUTH DAILY Pantoprazole Sodium [facility] [address]-95 40 MG Orally Once a day 1 tablet Cholecalciferol [facility] [address]-26 2000 UNIT Orally Once a day 1 capsule Alprazolam [facility] [address]-88 0.5 MG Orally Three times a day prn ANXIETY TAKE ONE TABLET Albuterol Sulfate [facility] [address]-29 90 mcg/actuation Aug 24, 2014 2 puffs by Inhalation route every 4-6 hours as needed PRN cough or wheezing Toprol XL [facility] [address]-05 100 MG Orally Once a day January 23, 2016 1 tablet at bedtime Effexor XR [facility] [address]-95 150 MG Orally Once a day 2 capsule with food Procedures Procedure Coding System Code Date X-RAY EXAM OF LOWER SPINE CPT-4 69574 March 15, 2016 [facility] VISIT ESTABLISHED PATIENT CPT-4 G0467 March 15, 2016 X-RAY EXAM OF THORACIC SPINE CPT-4 49468 March 15, 2016 LAB NOT BILLED BY [facility] CPT-4 NOBLL March 15, 2016 Office Visit, Est Pt., Level 3 CPT-4 31495 March 15, 2016 VENFERNY, ROUTINE* CPT-4 43567 March 15, 2016 Vital Signs Date/Time: March 15, 2016 Cardiac Monitoring Heart Rate 68 bpm Weight 199.4 lbs Height 64 in BMI 34.22 Index Blood Pressure Diastolic 92 mmHg Blood Pressure Systolic 130 mmHg Results No Known Results Summary Purpose eClinicalWorks Submission
--- OUTSIDE RECORDS SUMMARY | 2017-09-29 06:28 | XMS REPORT ---
Author Author NORMAN CARDOSO [facility] eClinicalWorks Address Unknown Phone Unavailable Care Team Providers Care Assistant Finance Manager Name Role Phone NORMAN CARDOSO CP Unavailable Allergies, Adverse Reactions, Alerts Substance [...] mention of hepatitis delta 070.32 Active Assessment Major depressive disorder in partial remission F32.4 Active Assessment Attention-deficit hyperactivity disorder, predominantly inattentive type F90.0 Active Problem Major depressive disorder, recurrent episode, mild 296.31 Active Problem Chronic hepatitis C without mention of hepatic coma 070.54 Active Medications Medication Code System Code Instructions Start Date End Date Status Dosage Ambien CR [facility] [address]-71 12.5 MG Orally Once a day Aug 16, 2015 1 tablet at bedtime as needed Abilify [facility] [address]-07 10 MG Orally Once a day November 12, 2014 1 tablet Albuterol Sulfate [facility] [address]-36 90 mcg/actuation Aug 24, 2014 2 puffs by Inhalation route every 4-6 hours as needed PRN cough or wheezing Levothyroxine Sodium [facility] 72556163543 75 MCG TAKE ONE TABLET BY MOUTH ONCE DAILY (REPEAT LAB IN LATE MARCH 2015) Rexulti [facility] [address]-27 0.5 MG Orally Once a day Sep 16, 2015 1 tablet Xyzal [facility] [address]-55 5 mg November 09, 2014 1 tablet by Oral route 1 time per day PRN prn cough Ritalin [facility] [address]-75 20 MG Orally Twice a day November 17, 2014 1 tablet Cholecalciferol [facility] [address]-10 2000 UNIT Orally Once a day 1 capsule Fish Oil [facility] [address]-21 1000 MG Orally 3 times a day 1 capsule Pantoprazole Sodium [facility] [address]-63 40 MG Orally Once a day 1 tablet Voltaren-XR [facility] [address]-17 100 MG Orally 2 times a day Aug 09, 2015 1 tablet Pravastatin Sodium [facility] 33999242268 80 MG TAKE ONE TABLET BY MOUTH DAILY AT BEDTIME (AVOID GRAPEFRUIT JUICE AND PRODUCTS WITH GRAPEFRUIT) Potassium Chloride Mandy ER [facility] 48064520186 10 MEQ Orally 2 times a day 1 tablet Lisinopril [facility] 68601709590 20 MG Orally Once a day 1 tablet Toprol XL [facility] [address]-77 100 MG Orally Once a day at hs November 17, 2014 take 1 tablet by Oral route 2 times a day Alprazolam [facility] [address]-54 0.5 MG Orally Three times a day prn ANXIETY must last 30 days NO EARLY REFILL TAKE ONE TABLET Effexor XR [facility] [address]-82 75 MG TAKE ONE CAPSULE BY MOUTH ONCE DAILY WITH FOOD Truvada [facility] 07799525380 200-300 MG TAKE ONE TABLET BY MOUTH DAILY Procedures Procedure Coding System Code Date Office Visit, Justyna Pt., Level 4 CPT-4 29425 Sep 16, 2015 [facility] VISIT ESTABLISHED PATIENT CPT-4 G0467 Sep 16, 2015 Vital Signs Date/Time: Sep 16, 2015 Blood Pressure Systolic 140 mmHg Weight 189 lbs Height 64 in BMI 32.44 Index Blood Pressure Diastolic 98 mmHg Results No Known Results Summary Purpose eClinicalWorks Submission
--- OUTSIDE RECORDS SUMMARY | 2017-09-29 06:28 | XMS REPORT ---
Author Author TAYLOR CARVAJAL [facility] eClinicalWorks Address Unknown Phone Unavailable Care Team Providers Care Commercial Lawn Specialist Name Role Phone TAYLOR CARVAJAL CP Unavailable [...] Start Date End Date Status Dosage Ritalin [facility] [address]-04 20 MG Orally Twice a day November 17, 2014 1 tablet Results No Known Results Summary Purpose eClinicalWorks Submission
--- OUTSIDE RECORDS SUMMARY | 2017-09-29 06:28 | XMS REPORT ---
Author TONE Fontenot eClinicalWorks Address Unknown Phone Unavailable Care Team Providers Care Warehouse Trainer Name Role Phone TONE IGNACIO CP Unavailable Allergies, Adverse Reactions, Alerts Substance [...] E78.5 Active Problem Hypertension I10 Active Assessment LGSIL Pap smear of vagina R87.622 Active Problem Major depressive disorder, recurrent episode, [...] Instructions Start Date End Date Status Dosage Cholecalciferol [facility] [address]-14 2000 UNIT Orally Once a day 1 capsule Albuterol Sulfate [facility] [address]-38 90 mcg/actuation Aug 24, 2014 2 puffs by Inhalation route every 4-6 hours as needed PRN cough or wheezing Ritalin [facility] [address]-00 10 mg Orally daily November 17, 2014 1 tablet in am and 1 tab before 3pm Alprazolam [facility] [address]-35 0.5 MG Orally Three times a day prn ANXIETY TAKE ONE TABLET Truvada [facility] 29504618219 200-300 MG TAKE ONE TABLET BY MOUTH DAILY Requip [facility] 93344231298 1 MG Orally Once a day 1 tablet 1 to 3 hours before bedtime Fish Oil [facility] [address]-12 1000 MG Orally 3 times a day 1 capsule Doxepin HCl [facility] [address]-47 10 MG Orally Once a day March 13, 2016 1 capsule at bedtime as needed for sleep Hydrocodone-Acetaminophen [facility] [address]-29 10-325 MG Orally 2 times a day March 15, 2016 1 tablet Pantoprazole Sodium [facility] [address]-85 40 MG Orally Once a day 1 tablet Potassium Chloride Mandy ER [facility] 09935283725 10 MEQ Orally 2 times a day 1 tablet Pravastatin Sodium [facility] [address]-13 80 MG TAKE ONE TABLET BY MOUTH AT BEDTIME (AVOID GRAPEFRUIT JUICE AND PRODUCTS WITH GRAPEFRUIT) Effexor XR [facility] [address]-95 150 MG Orally Once a day 2 capsule with food Lisinopril [facility] 33865274238 20 MG Orally Once a day 1 tablet Toprol XL [facility] [address]-60 100 MG Orally Once a day January 23, 2016 1 tablet at bedtime Levothyroxine Sodium [facility] [address]-24 125 MCG Orally Once a day 1 tablet Procedures Procedure Coding System Code Date Office Visit, Est Pt., Level 3 CPT-4 05441 Apr 11, 2016 [facility] VISIT ESTABLISHED PATIENT CPT-4 G0467 Apr 11, 2016 Vital Signs Date/Time: Apr 11, 2016 Cardiac Monitoring Heart Rate 77 bpm Weight 202.3 lbs Height 64 in BMI 34.72 Index Blood Pressure Diastolic 84 mmHg Blood Pressure Systolic 144 mmHg Results No Known Results Summary Purpose eClinicalWorks Submission
--- OUTSIDE RECORDS SUMMARY | 2017-09-29 06:29 | XMS REPORT ---
Author Author BILLY LAWRENCE Organization eClinicalWorks Address Unknown Phone Unavailable Care Team Providers Care Boiler Out Name Role Phone BILLY LAWRENCE Unavailable Allergies [...] Start Date End Date Status Dosage Ritalin [facility] [address]-22 20 MG Orally Twice a day Dr [place] to sign for Osmar November 17, 2014 1 tablet Results No Known Results Summary Purpose eClinicalWorks Submission
--- OUTSIDE RECORDS SUMMARY | 2017-09-29 06:29 | XMS REPORT ---
Author CHAPITO Melo Organization eClinicalWorks Address Unknown Phone Unavailable Care Team Providers Care Regional Engineer Name Role Phone CHAPITO VINSON CP Unavailable [...] Coding System Code Date THERAPEUTIC EXERCISES CPT-4 60448 May 21, 2016 Results No Known Results Summary Purpose eClinicalWorks Submission
--- OUTSIDE RECORDS SUMMARY | 2017-09-29 06:29 | XMS REPORT ---
Author Author Shayan GUSTAVO Organization [facility] Address [address] [place] [address] Care Team Providers Care Spool Maker Name Role Phone lucinaNOLA MohanY Unavailable PROBLEMS Type Condition ICD9-CM Code [id number] Code Onset Dates Condition Status SNOMED Code Problem Hypothyroid E03.9 Active 92103073 Problem 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 Active 20824185 Problem Obesity due to excess calories, unspecified obesity severity E66.09 Active 179752107 Problem Major depressive disorder, recurrent episode, moderate F33.1 Active 525009605 Problem Generalized anxiety disorder F41.1 Active 19712097 Problem Attention-deficit hyperactivity disorder, predominantly inattentive type F90.0 Active 51093414 Problem Obstructive sleep apnea G47.33 Active 93881769 Problem Restless legs G25.81 Active 39854959 Problem Major depressive disorder, recurrent, mild F33.0 Active 77342498 Problem Primary osteoarthritis of both knees M17.0 Active 915407299 Problem Chronic hepatitis K73.9 Active 30922192 Problem Folic acid deficiency E53.8 Active 694896383 Problem Neuralgia M79.2 Active 92795030 Problem Insomnia G47.00 Active 848879518 Problem Depression, major, recurrent, mild F33.0 Active 131001766 Problem Hypertension I10 Active 53938456 Problem Low back pain M54.5 Active 051968085 Problem Hyperlipidemia E78.5 Active 96412365 Problem Chronic viral hepatitis B without delta-agent B18.1 Active 820581772 ALLERGIES Unknown Allergies SOCIAL HISTORY No smoking Hx information available PLAN OF CARE Activity Details Follow Up 2 Months Reason: VITAL SIGNS Height 64 in 2016-08-28 Weight 217.0 lbs 2016-08-28 Heart Rate 58 bpm 2016-08-28 Respiratory Rate 20 2016-08-28 BMI 37.24 kg/m2 2016-08-28 Blood pressure systolic 124 mmHg 2016-08-28 Blood pressure diastolic 80 mmHg 2016-08-28 MEDICATIONS Medication Instructions Dosage Frequency Start Date End Date Duration Status Lisinopril 20 MG Orally Once a day 1 tablet 24h 30 Active Pantoprazole Sodium 40 MG Orally Once a day 1 tablet 24h 90 Active Albuterol Sulfate 90 mcg/actuation 2 puffs by Inhalation route every 4-6 hours as needed PRN cough or wheezing Aug, Active Potassium Chloride Mandy ER 10 MEQ Orally Twice a day 1 tablet with food 12h 90 Active Effexor XR 150 MG Orally Once a day 2 capsule with food 24h Active Levothyroxine Sodium 75 MCG Orally Once a day 1 tablet 24h 60 days Active Fish Oil 1000 MG Orally 3 times a day 1 capsule 8h Active Toprol XL 100 MG Orally Once a day 1 tablet at bedtime 24h 90 Active Doxepin HCl 25 MG Orally Once a day 1-2 capsules at bedtime 24h Jun, Active Neurontin 300 MG Orally 2 times a day Start with one at bedtime and then in a week use 1 twice a day 1 capsule Aug, Active Pravastatin Sodium 80 MG TAKE ONE TABLET BY MOUTH AT BEDTIME (AVOID GRAPEFRUIT JUICE AND PRODUCTS WITH GRAPEFRUIT) 90 Active RESULTS No Results PROCEDURES Procedure Date Ordered Related Diagnosis Body Site [facility] VISIT ESTABLISHED PATIENT Aug 28, 2016 Office Visit, Est Pt., Level 3 Aug 28, 2016 IMMUNIZATIONS No Known Immunizations
--- OUTSIDE RECORDS SUMMARY | 2017-09-29 06:29 | XMS REPORT ---
Author Author 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 Organization eClinicalWorks Address Unknown Phone Unavailable Care Team Providers Care Cruller Maker Machine Name Role Phone 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 CP Unavailable [...] Date End Date Status Dosage Diclofenac Sodium [facility] [address]-90 50 MG Orally (note change in dose) 3 times a day 1 tablet Results No Known Results Summary Purpose eClinicalWorks Submission
--- OUTSIDE RECORDS SUMMARY | 2017-09-29 06:29 | XMS REPORT ---
Author Author NORMAN CARDOSO [facility] eClinicalWorks Address Unknown Phone Unavailable Care Team Providers Care Waiver Analyst Name Role Phone NORMAN CARDOSO CP Unavailable [...] mention of hepatitis delta 070.32 Active Assessment Attention-deficit hyperactivity disorder, unspecified type F90.9 Active Assessment Major depressive disorder, recurrent, mild F33.0 Active Problem Major depressive disorder, recurrent episode, mild 296.31 Active Assessment Generalized anxiety disorder F41.1 Active Problem Chronic hepatitis C without mention of hepatic coma 070.54 Active Medications Medication Code System Code Instructions Start Date End Date Status Dosage Truvada [facility] 09479190645 200-300 MG TAKE ONE TABLET BY MOUTH DAILY Potassium Chloride Mandy ER [facility] 96353646300 10 MEQ Orally 2 times a day 1 tablet Ritalin [facility] [address]-96 20 MG Orally Twice a day Dr [place] to sign for Osmar November 17, 2014 1 tablet Albuterol Sulfate [facility] [address]-00 90 mcg/actuation Aug 24, 2014 2 puffs by Inhalation route every 4-6 hours as needed PRN cough or wheezing Voltaren-XR [facility] [address]-30 100 MG Orally 2 times a day Aug 09, 2015 1 tablet Xyzal [facility] [address]-16 5 mg November 09, 2014 1 tablet by Oral route 1 time per day PRN prn cough Pantoprazole Sodium [facility] [address]-16 40 MG Orally Once a day 1 tablet Effexor XR [facility] [address]-35 75 MG TAKE ONE CAPSULE BY MOUTH ONCE DAILY WITH FOOD Abilify [facility] [address]-87 10 MG Orally Once a day November 12, 2014 1 tablet Cholecalciferol [facility] [address]-45 2000 UNIT Orally Once a day 1 capsule Fish Oil [facility] [address]-80 1000 MG Orally 3 times a day 1 capsule Alprazolam [facility] [address]-24 0.5 MG Orally Three times a day prn ANXIETY must last 30 days NO EARLY REFILL TAKE ONE TABLET Ambien CR [facility] [address]-55 12.5 MG Orally Once a day Aug 16, 2015 1 tablet at bedtime as needed Pravastatin Sodium [facility] 74044375345 80 MG TAKE ONE TABLET BY MOUTH DAILY AT BEDTIME (AVOID GRAPEFRUIT JUICE AND PRODUCTS WITH GRAPEFRUIT) Lisinopril [facility] 16229886356 20 MG Orally Once a day 1 tablet Levothyroxine Sodium [facility] 00683633544 75 MCG TAKE ONE TABLET BY MOUTH ONCE DAILY (REPEAT LAB IN LATE MARCH 2015) Toprol XL [facility] [address]-11 100 MG Orally Once a day at hs November 17, 2014 take 1 tablet by Oral route 2 times a day Procedures Procedure Coding System Code Date Office Visit, Justyna Pt., Level 3 CPT-4 46890 Aug 16, 2015 [facility] VISIT ESTABLISHED PATIENT CPT-4 G0467 Aug 16, 2015 Vital Signs Date/Time: Aug 16, 2015 Cardiac Monitoring Heart Rate 96 bpm Weight 192.4 lbs Height 64 in BMI 33.02 Index Blood Pressure Diastolic 112 mmHg Blood Pressure Systolic 150 mmHg Results No Known Results Summary Purpose eClinicalWorks Submission
--- OUTSIDE RECORDS SUMMARY | 2017-09-29 06:29 | XMS REPORT ---
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 [address]-47 1000 MG Orally 3 times a day 1 capsule Potassium Chloride Mandy ER [facility] 01703035676 10 MEQ Orally 2 times a day 1 tablet Albuterol Sulfate [facility] [address]-40 90 mcg/actuation Aug 24, 2014 2 puffs by Inhalation route every 4-6 hours as needed PRN cough or wheezing Toprol XL [facility] [address]-15 100 MG Orally Once a day January 23, 2016 1 tablet at bedtime PredniSONE [facility] [address]-00 20 mg Orally Once a day March 07, 2016March 2 tablets Ritalin [facility] [address]-57 20 mg Orally daily November 17, 2014 1 tablet in am and 1/2 tab before 3pm Effexor XR [facility] [address]-16 150 MG Orally Once a day 2 capsule with food Pravastatin Sodium [facility] [address]-41 80 MG Orally Once a day TAKE ONE TABLET BY MOUTH DAILY AT BEDTIME (AVOID GRAPEFRUIT JUICE AND PRODUCTS WITH GRAPEFRUIT) Pantoprazole Sodium [facility] [address]-22 40 MG Orally Once a day 1 tablet Doxycycline Hyclate [facility] [address]-23 100 MG Orally every 12 hrs March 07, 2016 March 17, 2016 1 capsule Levothyroxine Sodium [facility] 75105511579 100 MCG Orally Once a day 1 tablet Lisinopril [facility] 62982750759 20 MG Orally Once a day 1 tablet Requip [facility] [address]-43 1 MG Orally Once a day November 08, 2015 1 tablet 1 to 3 hours before bedtime Truvada [facility] 73217913375 200-300 MG TAKE ONE TABLET BY MOUTH DAILY Alprazolam [facility] [address]-97 0.5 MG Orally Three times a day prn ANXIETY TAKE ONE TABLET Procedures Procedure Coding System Code Date [facility] VISIT ESTABLISHED PATIENT CPT-4 G0467 March 07, 2016 Office Visit, Est Pt., Level 3 CPT-4 08222 March 07, 2016 MEASURE BLOOD OXYGEN LEVEL CPT-4 48356 March 07, 2016 Vital Signs Date/Time: March 07, 2016 Cardiac Monitoring Heart Rate 62 bpm Weight 202.4 lbs Height 64 in Blood Pressure Diastolic 100 mmHg Blood Pressure Systolic 142 mmHg Results No Known Results Summary Purpose eClinicalWorks Submission
--- OUTSIDE RECORDS SUMMARY | 2017-09-29 06:29 | XMS REPORT ---
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 Active 57613505 Problem Obesity due to excess calories, unspecified obesity severity E66.09 Active 485967276 Problem Generalized anxiety disorder F41.1 Active 49190968 Problem Major depressive disorder, recurrent episode, moderate F33.1 Active 571217665 Problem Major depressive disorder, recurrent, mild F33.0 Active 33439408 Problem Obstructive sleep apnea G47.33 Active 93851663 Problem Restless legs G25.81 Active 08788769 Problem Attention-deficit hyperactivity disorder, predominantly inattentive type F90.0 Active 18866610 Problem Chronic hepatitis K73.9 Active 61916685 Problem Neuralgia M79.2 Active 01690177 Problem Folic acid deficiency E53.8 Active 420877876 Problem Primary osteoarthritis of both knees M17.0 Active 728482625 Problem Insomnia G47.00 Active 098674696 Problem Depression, major, recurrent, mild F33.0 Active 995554279 Problem Hypertension I10 Active 08921470 Problem Low back pain M54.5 Active 660712598 Problem Hyperlipidemia E78.5 Active 49550254 Problem Chronic viral hepatitis B without delta-agent B18.1 Active 130881524 ALLERGIES Substance Reaction Event Type Date Status Trazodone HCl "weird dreams" Drug Allergy Oct, Active SOCIAL HISTORY Never Assessed PLAN OF CARE Activity Details Follow Up prn Reason: VITAL SIGNS Height 64 in 2016-11-12 Weight 218.2 lbs 2016-11-12 Temperature 98.4 degrees Fahrenheit 2016-11-12 Heart Rate 72 bpm 2016-11-12 Respiratory Rate 20 2016-11-12 BMI 37.45 kg/m2 2016-11-12 Blood pressure systolic 140 mmHg 2016-11-12 Blood pressure diastolic 98 mmHg 2016-11-12 MEDICATIONS Medication Instructions Dosage Frequency Start Date End Date Duration Status Truvada 200-300 mg Orally Once a day 1 tablet 24h Oct, Active Lisinopril 20 MG Orally Once a day 1 tablet 24h 30 Active Albuterol Sulfate 90 mcg/actuation 2 puffs by Inhalation route every 4-6 hours as needed PRN cough or wheezing Aug, Active Levothyroxine Sodium 100 MCG Orally Once a day 1 tablet 24h Active Pantoprazole Sodium 40 MG Orally Once a day 1 tablet 24h 90 Active Neurontin 300 MG Orally 2 times a day Start with one at bedtime and then in a week use 1 twice a day 1 capsule Aug, Active Toprol XL 100 MG Orally Once a day 1 tablet at bedtime 24h 90 Active Loratadine 10 mg Orally Once a day as needed for allergies 1 tablet Apr, Active Requip 1 MG Orally Once a day 1 tablet 1 to 3 hours before bedtime 24h 90 Active Cyclobenzaprine HCl 10 mg Orally 2 times a day prn back pain 1 tablet as needed Oct, Active HydrOXYzine HCl 10 MG Orally daily 1 tablet BID as needed for anxiety 24h Oct, 30 days Active Fish Oil 1000 MG Orally 3 times a day 1 capsule 8h Active Doxepin HCl 25 MG Orally Once a day 1-2 capsules at bedtime 24h Active Effexor XR 150 MG Orally Once a day 2 capsule with food 24h 30 Active RESULTS Name Result Date Reference Range Mammogram, Bilateral Screening 2016-11-23 PROCEDURES Procedure Date Ordered Result Body Site [facility] VISIT ESTABLISHED PATIENT November 12, 2016 IMMUNIZATIONS No Known Immunizations MEDICAL (GENERAL) [...]
--- OUTSIDE RECORDS SUMMARY | 2017-09-29 06:29 | XMS REPORT ---
Author Author 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 Organization eClinicalWorks Address Unknown Phone Unavailable Care Team Providers Care Car Top Bolter Name Role Phone 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 CP Unavailable Allergies No Known Allergies Problems Problem Type Condition ICD-9 Code Onset Dates Condition Status Assessment Hypokalemia 276.8 Active Problem Chronic hepatitis C without mention [...] disorder, recurrent episode, moderate 296.32 Active Medications No Known Medications Results No Known Results Summary Purpose eClinicalWorks Submission
--- OUTSIDE RECORDS SUMMARY | 2017-09-29 06:29 | XMS REPORT ---
Author Author BILLY LAWRENCE Organization eClinicalWorks Address Unknown Phone Unavailable Care Team Providers Care Sharepoint Application Developer Name Role Phone BILLY LAWRENCE Unavailable Allergies [...] Start Date End Date Status Dosage Ritalin [facility] [address]-23 20 MG Orally Twice a day Jin to sign for Osmar November 17, 2014 1 tablet Results No Known Results Summary Purpose eClinicalWorks Submission
--- OUTSIDE RECORDS SUMMARY | 2017-09-29 06:32 | XMS REPORT | Continuity of Care Document ---
Author Author [facility] Address Unknown Phone Unavailable Allergies Active Description Code Type Severity Reaction Onset Reported/Identified Relationship to Patient Clinical Status Yes DYE DYE Unknown N/ A 10/26/2014 Medications There is no data. Problems Date Dx Coded Attending Type Code Diagnosis Diagnosed By 03/24/2008 TONE IGNACIO DO 244.9 HYPOTHYROIDISM 03/24/2008 TONE IGNACIO DO 338.4 PAIN CHRONIC SYNDROME 03/24/2008 TONE IGNACIO DO V58.69 taking high-risk medication 03/24/2008 TONE IGNACIO DO 244.9 HYPOTHYROIDISM 03/24/2008 TONE IGNACIO DO 338.4 PAIN CHRONIC SYNDROME 03/24/2008 TONE IGNACIO DO V58.69 taking high-risk medication 03/24/2008 KARMEN ESPINOSA APRN 244.9 HYPOTHYROIDISM 03/24/2008 KARMEN ESPINOSA APRN 338.4 PAIN CHRONIC SYNDROME 03/24/2008 KARMEN ESPINOSA APRN V58.69 taking high-risk medication 03/24/2008 TONE IGNACIO DO 244.9 HYPOTHYROIDISM 03/24/2008 TONE IGNACIO DO 338.4 PAIN CHRONIC SYNDROME 03/24/2008 TONE IGNACIO DO V58.69 taking high-risk medication 03/24/2008 KARMEN ESPINOSA APRN 244.9 HYPOTHYROIDISM 03/24/2008 KARMEN ESPINOSA APRN 338.4 PAIN CHRONIC SYNDROME 03/24/2008 KARMEN ESPINOSA APRN V58.69 taking high-risk medication 03/24/2008 244.9 HYPOTHYROIDISM 03/24/2008 338.4 PAIN CHRONIC SYNDROME 03/24/2008 V58.69 taking high- risk medication 03/24/2008 244.9 HYPOTHYROIDISM 03/24/2008 338.4 PAIN CHRONIC SYNDROME 03/24/2008 V58.69 taking high- risk medication 03/24/2008 244.9 HYPOTHYROIDISM 03/24/2008 338.4 PAIN CHRONIC SYNDROME 03/24/2008 V58.69 taking high- risk medication 03/24/2008 244.9 HYPOTHYROIDISM 03/24/2008 338.4 PAIN CHRONIC SYNDROME 03/24/2008 V58.69 taking high- risk medication 03/24/2008 244.9 HYPOTHYROIDISM 03/24/2008 338.4 PAIN CHRONIC SYNDROME 03/24/2008 V58.69 taking high- risk medication 03/24/2008 244.9 HYPOTHYROIDISM 03/24/2008 338.4 PAIN CHRONIC SYNDROME 03/24/2008 V58.69 taking high- risk medication 03/24/2008 244.9 HYPOTHYROIDISM 03/24/2008 338.4 PAIN CHRONIC SYNDROME 03/24/2008 V58.69 taking high- risk medication 03/24/2008 KARMEN ESPINOSA APRN 244.9 HYPOTHYROIDISM 03/24/2008 KARMEN ESPINOSA APRN 338.4 PAIN CHRONIC SYNDROME 03/24/2008 KARMEN ESPINOSA APRN V58.69 taking high-risk medication 03/24/2008 KARMEN ESPINOSA APRN 244.9 HYPOTHYROIDISM 03/24/2008 KARMEN ESPINOSA APRN 338.4 PAIN CHRONIC SYNDROME 03/24/2008 KARMEN ESPINOSA APRN V58.69 taking high-risk medication 03/24/2008 IGNACIO ANUEL POZOA K 244.9 HYPOTHYROIDISM 03/24/2008 IGNACIO DO TONE K 338.4 PAIN CHRONIC SYNDROME 03/24/2008 IGNACIO DO TONE K V58.69 taking high-risk medication 03/24/2008 IGNACIO ANUEL POZOA K 244.9 HYPOTHYROIDISM 03/24/2008 IGNACIO DO TONE K 338.4 PAIN CHRONIC SYNDROME 03/24/2008 IGNACIO DO TONE K V58.69 taking high-risk medication 03/24/2008 KARMEN ESPINOSA APRN 244.9 HYPOTHYROIDISM 03/24/2008 KARMEN ESPINOSA APRN 338.4 PAIN CHRONIC SYNDROME 03/24/2008 KARMEN ESPINOSA APRN V58.69 taking high-risk medication 03/24/2008 KARMEN ESPINOSA APRN 244.9 HYPOTHYROIDISM 03/24/2008 KARMEN ESPINOSA APRN 338.4 PAIN CHRONIC SYNDROME 03/24/2008 KARMEN ESPINOSA APRN V58.69 taking high-risk medication 03/24/2008 IGNACIO ANUEL POZOA K 244.9 HYPOTHYROIDISM 03/24/2008 IGNACIO DOANUELA K 338.4 PAIN CHRONIC SYNDROME 03/24/2008 TONE IGNACIO DO K V58.69 taking high-risk medication 03/24/2008 TAYLOR CARVAJAL MD 244.9 HYPOTHYROIDISM 03/24/2008 TAYLOR CARVAJAL MD 338.4 PAIN CHRONIC SYNDROME 03/24/2008 TAYLOR CARVAJAL MD V58.69 taking high-risk medication 03/24/2008 TAYLOR CARVAJAL MD 244.9 HYPOTHYROIDISM 03/24/2008 TAYLOR CARVAJAL MD 338.4 PAIN CHRONIC SYNDROME 03/24/2008 TAYLOR CARVAJAL MD V58.69 taking high-risk medication 03/24/2008 KARMEN ESPINOSA APRN 244.9 HYPOTHYROIDISM 03/24/2008 KARMEN ESPINOSA APRN 338.4 PAIN CHRONIC SYNDROME 03/24/2008 KARMEN ESPINOSA APRN V58.69 taking high-risk medication 03/24/2008 KARMEN ESPINOSA APRN 244.9 HYPOTHYROIDISM 03/24/2008 KARMEN ESPINOSA APRN 338.4 PAIN CHRONIC SYNDROME 03/24/2008 KARMEN ESPINOSA APRN V58.69 taking high-risk medication 03/24/2008 TAYLOR CARVAJAL MD 244.9 HYPOTHYROIDISM 03/24/2008 TAYLOR CARVAJAL MD 338.4 PAIN CHRONIC SYNDROME 03/24/2008 TAYLOR CARVAJAL MD V58.69 taking high-risk medication 03/24/2008 BILLY LAWRENCE APRN 244.9 HYPOTHYROIDISM 03/24/2008 BILLY LAWRENCE APRN 338.4 PAIN CHRONIC SYNDROME 03/24/2008 BILLY LAWRENCE APRN V58.69 taking high-risk medication 03/24/2008 BILLY LAWRENCE APRN 244.9 HYPOTHYROIDISM 03/24/2008 BILLY LAWRENCE APRN 338.4 PAIN CHRONIC SYNDROME 03/24/2008 BILLY LAWRENCE APRN V58.69 taking high-risk medication 03/24/2008 TAYLOR CARVAJAL MD 244.9 HYPOTHYROIDISM 03/24/2008 TAYLOR CARVAJAL MD 338.4 PAIN CHRONIC SYNDROME 03/24/2008 TAYLOR CARVAJAL MD V58.69 TAKING HIGH-RISK MEDICATION 03/24/2008 HOWARD CHICKEN DRESSER, BILLY 244.9 HYPOTHYROIDISM 03/24/2008 HOWARD CHICKEN DRESSER, BILLY 338.4 PAIN CHRONIC SYNDROME 03/24/2008 HOWARD CHICKEN DRESSER, BILLY V58.69 TAKING HIGH-RISK MEDICATION 03/24/2008 HOWARD CHICKEN DRESSER, BILLY 244.9 HYPOTHYROIDISM 03/24/2008 HOWARD CHICKEN DRESSER, BILLY 338.4 PAIN CHRONIC SYNDROME 03/24/2008 HOWARD CUNNINGHAM BILLY V58.69 TAKING HIGH-RISK MEDICATION 03/24/2008 TAYLOR CARVAJAL MD 244.9 HYPOTHYROIDISM 03/24/2008 TAYLOR CARVAJAL MD 338.4 PAIN CHRONIC SYNDROME 03/24/2008 TAYLOR CARVAJAL MD V58.69 TAKING HIGH-RISK MEDICATION 03/24/2008 JEMMA CUNNINGHAM, CRISTIANE A 244.9 HYPOTHYROIDISM 03/24/2008 JEMMA CUNNINGHAM CRISTIANE A 338.4 PAIN CHRONIC SYNDROME 03/24/2008 JEMMA CUNNINGHAM CRISTIANE A V58.69 TAKING HIGH-RISK MEDICATION 03/24/2008 JEMMA APRN, CRISTIANE A 244.9 HYPOTHYROIDISM 03/24/2008 JEMMA APRN, CRISTIANE A 338.4 PAIN CHRONIC SYNDROME 03/24/2008 JEMMA CUNNINGHAM CRISTIANE A V58.69 TAKING HIGH-RISK MEDICATION 03/24/2008 HOWARD CHICKEN DRESSER, BILLY 244.9 HYPOTHYROIDISM 03/24/2008 HOWARD CHICKEN DRESSER, BILLY 338.4 PAIN CHRONIC SYNDROME 03/24/2008 SLIME LAWRENCE APRNETTE V58.69 TAKING HIGH-RISK MEDICATION 03/24/2008 FABY CUNNINGHAM SERAFIN S 244.9 HYPOTHYROIDISM 03/24/2008 FABY CUNNINGHAM SERAFIN S 338.4 PAIN CHRONIC SYNDROME 03/24/2008 RADHA HOBBS APRNNDA S V58.69 TAKING HIGH-RISK MEDICATION 03/24/2008 HOWARD CHICKEN DRESSER, BILLY 244.9 HYPOTHYROIDISM 03/24/2008 HOWARD CHICKEN DRESSER, BILLY 338.4 PAIN CHRONIC SYNDROME 03/24/2008 HOWARD CHICKEN DRESSER, BILLY V58.69 TAKING HIGH-RISK MEDICATION 03/24/2008 FABY CUNNINGHAM SERAFIN S 244.9 HYPOTHYROIDISM 03/24/2008 GELY HOBBS APRNA S 338.4 PAIN CHRONIC SYNDROME 03/24/2008 RADHA HOBBS APRNNDA S V58.69 TAKING HIGH-RISK MEDICATION 03/24/2008 SACHA PITT APRN 244.9 HYPOTHYROIDISM 03/24/2008 SACHA PITT APRN D 338.4 PAIN CHRONIC SYNDROME 03/24/2008 SACHA PITT APRN V58.69 TAKING HIGH-RISK MEDICATION 03/24/2008 GELY HOBBS APRNA S 244.9 HYPOTHYROIDISM 03/24/2008 GELY HOBBS APRNA S 338.4 PAIN CHRONIC SYNDROME 03/24/2008 RADHA HOBBS APRNNDA S V58.69 TAKING HIGH-RISK MEDICATION 03/24/2008 BILLY LAWRENCE APRN 244.9 HYPOTHYROIDISM 03/24/2008 BILLY LAWRENCE APRN 338.4 PAIN CHRONIC SYNDROME 03/24/2008 BILLY LAWRENCE APRN V58.69 TAKING HIGH-RISK MEDICATION 03/24/2008 GELY HOBBS APRNA S 244.9 HYPOTHYROIDISM 03/24/2008 GELY HOBBS APRNA S 338.4 PAIN CHRONIC SYNDROME 03/24/2008 RADHA HOBBS APRNNDA S V58.69 TAKING HIGH-RISK MEDICATION 06/04/2008 TONE IGNACIO DO 729.5 PAIN IN LIMB 06/04/2008 TONE IGNACIO DO 729.5 PAIN IN LIMB 06/04/2008 KARMEN ESPINOSA APRN 729.5 PAIN IN LIMB 06/04/2008 TONE IGNACIO DO 729.5 PAIN IN LIMB 06/04/2008 KARMEN ESPINOSA APRN 729.5 PAIN IN LIMB 06/04/2008 729.5 PAIN IN LIMB 06/04/2008 729.5 PAIN IN LIMB 06/04/2008 729.5 PAIN IN LIMB 06/04/2008 729.5 PAIN IN LIMB 06/04/2008 729.5 PAIN IN LIMB 06/04/2008 729.5 PAIN IN LIMB 06/04/2008 729.5 PAIN IN LIMB 06/04/2008 KARMEN ESPINOSA APRN 729.5 PAIN IN LIMB 06/04/2008 KARMEN ESPINOSA APRN 729.5 PAIN IN LIMB 06/04/2008 IGNACIO DOTONE K 729.5 PAIN IN LIMB 06/04/2008 IGNACIO DOTONE K 729.5 PAIN IN LIMB 06/04/2008 KARMEN ESPINOSA APRN 729.5 PAIN IN LIMB 06/04/2008 KARMEN ESPINOSA APRN 729.5 PAIN IN LIMB 06/04/2008 TONE IGNACIO DO 729.5 PAIN IN LIMB 06/04/2008 TAYLOR CARVAJAL MD 729.5 PAIN IN LIMB 06/04/2008 TAYLOR CARVAJAL MD 729.5 PAIN IN LIMB 06/04/2008 KARMEN ESPINOSA APRN 729.5 PAIN IN LIMB 06/04/2008 KARMEN ESPINOSA APRN 729.5 PAIN IN LIMB 06/04/2008 TAYLOR CARVAJAL MD 729.5 PAIN IN LIMB 06/04/2008 HOWARD CUNNINGHAM BILLY 729.5 PAIN IN LIMB 06/04/2008 HOWARD CUNNINGHAM BILLY 729.5 PAIN IN LIMB 06/04/2008 TAYLOR CARVAJAL MD 729.5 PAIN IN LIMB 06/04/2008 HOWARD CUNNINGHAM BILLY 729.5 PAIN IN LIMB 06/04/2008 HOWARD CUNNINGHAM BILLY 729.5 PAIN IN LIMB 06/04/2008 TAYLOR CARVAJAL MD 729.5 PAIN IN LIMB 06/04/2008 JEMMA CUNNINGHAM, CRISTIANE A 729.5 PAIN IN LIMB 06/04/2008 JEMMA CUNNINGHAM, CRISTIANE A 729.5 PAIN IN LIMB 06/04/2008 HOWARD OCTAVIO BILLY 729.5 PAIN IN LIMB 06/04/2008 GELY HOBBS APRNA S 729.5 PAIN IN LIMB 06/04/2008 HOWARD CHICKEN DRESSER BILLY 729.5 PAIN IN LIMB 06/04/2008 GELY HOBBS APRNA S 729.5 PAIN IN LIMB 06/04/2008 SACHA PITT APRN 729.5 PAIN IN LIMB 06/04/2008 RADHA HOBBS APRNNDA S 729.5 PAIN IN LIMB 06/04/2008 HOWARD CUNNINGHAM BILLY 729.5 PAIN IN LIMB 06/04/2008 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 APRN 729.5 PAIN IN LIMB 10/07/2008 IGNACIO DO, TONE K 401.1 ESSENTIAL HYPERTENSION BENIGN 10/07/2008 IGNACIO DO, TONE K 719.40 joint pain, localized 10/07/2008 IGNACIO DO, TONE K 401.1 ESSENTIAL HYPERTENSION BENIGN 10/07/2008 IGNACIO DO, TONE K 719.40 joint pain, localized 10/07/2008 KARMEN ESPINOSA APRN 401.1 ESSENTIAL HYPERTENSION BENIGN 10/07/2008 KARMEN ESPINOSA APRN 719.40 joint pain, localized 10/07/2008 IGNACIO DOANUELA K 401.1 ESSENTIAL HYPERTENSION BENIGN 10/07/2008 IGNACIO DO TONE K 719.40 joint pain, localized 10/07/2008 KARMEN ESPINOSA APRN 401.1 ESSENTIAL HYPERTENSION BENIGN 10/07/2008 KARMEN ESPINOSA APRN 719.40 joint pain, localized 10/07/2008 401.1 ESSENTIAL HYPERTENSION BENIGN 10/07/2008 719.40 joint pain, localized 10/07/2008 401.1 ESSENTIAL HYPERTENSION BENIGN 10/07/2008 719.40 joint pain, localized 10/07/2008 401.1 ESSENTIAL HYPERTENSION BENIGN 10/07/2008 719.40 joint pain, localized 10/07/2008 401.1 ESSENTIAL HYPERTENSION BENIGN 10/07/2008 719.40 joint pain, localized 10/07/2008 401.1 ESSENTIAL HYPERTENSION BENIGN 10/07/2008 719.40 joint pain, localized 10/07/2008 401.1 ESSENTIAL HYPERTENSION BENIGN 10/07/2008 719.40 joint pain, localized 10/07/2008 401.1 ESSENTIAL HYPERTENSION BENIGN 10/07/2008 719.40 joint pain, localized 10/07/2008 KARMEN ESPINOSA APRN 401.1 ESSENTIAL HYPERTENSION BENIGN 10/07/2008 KARMEN ESPINOSA APRN 719.40 joint pain, localized 10/07/2008 KARMEN ESPINOSA APRN 401.1 ESSENTIAL HYPERTENSION BENIGN 10/07/2008 KARMEN ESPINOSA APRN 719.40 joint pain, localized 10/07/2008 IGNACIO DOANUELA K 401.1 ESSENTIAL HYPERTENSION BENIGN 10/07/2008 IGNACIO DOANUELA K 719.40 joint pain, localized 10/07/2008 IGNACIO DO, TONE K 401.1 ESSENTIAL HYPERTENSION BENIGN 10/07/2008 IGNACIO DO, TONE K 719.40 joint pain, localized 10/07/2008 KARMEN ESPINOSA APRN 401.1 ESSENTIAL HYPERTENSION BENIGN 10/07/2008 KARMEN ESPINOSA APRN 719.40 joint pain, localized 10/07/2008 KARMEN ESPINOSA APRN 401.1 ESSENTIAL HYPERTENSION BENIGN 10/07/2008 KARMEN ESPINOSA APRN 719.40 joint pain, localized 10/07/2008 IGNACIO DO, TONE K 401.1 ESSENTIAL HYPERTENSION BENIGN 10/07/2008 IGNACIO DO, TONE K 719.40 joint pain, localized 10/07/2008 TAYLOR CARVAJAL MD 401.1 ESSENTIAL HYPERTENSION BENIGN 10/07/2008 TAYLOR CARVAJAL MD 719.40 joint pain, localized 10/07/2008 TAYLOR CARVAJAL MD 401.1 ESSENTIAL HYPERTENSION BENIGN 10/07/2008 TAYLOR CARVAJAL MD.40 joint pain, localized 10/07/2008 KARMEN ESPINOSA APRN 401.1 ESSENTIAL HYPERTENSION BENIGN 10/07/2008 KARMEN ESPINOSA APRN 719.40 joint pain, localized 10/07/2008 KARMEN ESPINOSA APRN 401.1 ESSENTIAL HYPERTENSION BENIGN 10/07/2008 KARMEN ESPINOSA APRN 719.40 joint pain, localized 10/07/2008 TAYLOR CARVAJAL MD 401.1 ESSENTIAL HYPERTENSION BENIGN 10/07/2008 TAYLOR CARVAJAL MD.40 joint pain, localized 10/07/2008 HOWARD CUNNINGHAM BILLY 401.1 ESSENTIAL HYPERTENSION BENIGN 10/07/2008 HOWARD CHICKEN DRESSER, BILLY 719.40 joint pain, localized 10/07/2008 HOWARD CHICKEN DRESSER, BILLY 401.1 ESSENTIAL HYPERTENSION BENIGN 10/07/2008 HOWRAD CUNNINGHAM, BILLY 719.40 joint pain, localized 10/07/2008 TAYLOR CARVAJAL MD 401.1 ESSENTIAL HYPERTENSION BENIGN 10/07/2008 TAYLOR CARVAJAL MD9.40 JOINT PAIN, LOCALIZED 10/07/2008 HOWARD CUNNINGHAM BILLY 401.1 ESSENTIAL HYPERTENSION BENIGN 10/07/2008 HOWARD CHICKEN DRESSER, BILLY 719.40 JOINT PAIN, LOCALIZED 10/07/2008 HOWARD CHICKEN DRESSER, BILLY 401.1 ESSENTIAL HYPERTENSION BENIGN 10/07/2008 HOWARD CHICKEN DRESSER, BILLY 719.40 JOINT PAIN, LOCALIZED 10/07/2008 TAYLOR CARVAJAL MD 401.1 ESSENTIAL HYPERTENSION BENIGN 10/07/2008 TAYLOR CARVAJAL MD 719.40 JOINT PAIN, LOCALIZED 10/07/2008 JEMMA CHICKEN DRESSER, CRISTIANE A 401.1 ESSENTIAL HYPERTENSION BENIGN 10/07/2008 JEMMA CHICKEN DRESSER, CRISTIANE A 719.40 JOINT PAIN, LOCALIZED 10/07/2008 JEMMA CHICKEN DRESSER, CRISTIANE A 401.1 ESSENTIAL HYPERTENSION BENIGN 10/07/2008 JEMMA CHICKEN DRESSER, CRISTIANE A 719.40 JOINT PAIN, LOCALIZED 10/07/2008 HOWARD CHICKEN DRESSER, BILLY 401.1 ESSENTIAL HYPERTENSION BENIGN 10/07/2008 HOWARD CHICKEN DRESSER, BILLY 719.40 JOINT PAIN, LOCALIZED 10/07/2008 FABY CHICKEN DRESSER, SERAFIN S 401.1 ESSENTIAL HYPERTENSION BENIGN 10/07/2008 FABY CHICKEN DRESSER, SERAFIN S 719.40 JOINT PAIN, LOCALIZED 10/07/2008 HOWARD CHICKEN DRESSER, BILLY 401.1 ESSENTIAL HYPERTENSION BENIGN 10/07/2008 HOWARD CHICKEN DRESSER, BILLY 719.40 JOINT PAIN, LOCALIZED 10/07/2008 FABY CHICKEN DRESSER, SERAFIN S 401.1 ESSENTIAL HYPERTENSION BENIGN 10/07/2008 FABY CHICKEN DRESSER, SERAFIN S 719.40 JOINT PAIN, LOCALIZED 10/07/2008 SACHA PITT APRN D 401.1 ESSENTIAL HYPERTENSION BENIGN 10/07/2008 SACHA PITT APRN D 719.40 JOINT PAIN, LOCALIZED 10/07/2008 FABY CHICKEN DRESSER, SERAFIN S 401.1 ESSENTIAL HYPERTENSION BENIGN 10/07/2008 FABY CHICKEN DRESSER, SERAFIN S 719.40 JOINT PAIN, LOCALIZED 10/07/2008 HOWARD CHICKEN DRESSER, BILLY 401.1 ESSENTIAL HYPERTENSION BENIGN 10/07/2008 HOWARD CHICKEN DRESSER, BILLY 719.40 JOINT PAIN, LOCALIZED 10/07/2008 FABY CHICKEN DRESSER, SERAFIN S 401.1 ESSENTIAL HYPERTENSION BENIGN 10/07/2008 FABY CHICKEN DRESSER, SERAFIN S 719.40 JOINT PAIN, LOCALIZED 11/04/2008 IGNACIO DO, TONE K 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 11/04/2008 IGNACIO DO, TONE K 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 11/04/2008 GARKARMEN MUÑOZ APRN 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 11/04/2008 IGNACIO DO, TONE K 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 11/04/2008 GARTON KARMEN CUNNINGHAM 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 11/04/2008 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 11/04/2008 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 11/04/2008 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 11/04/2008 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 11/04/2008 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 11/04/2008 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 11/04/2008 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 11/04/2008 KARMEN ESPINOSA APRN 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 11/04/2008 KARMEN ESPINOSA APRN 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 11/04/2008 IGNACIO DO, TONE K 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 11/04/2008 IGNACIO DO, TONE K 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 11/04/2008 KARMEN ESPINOSA APRN 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 11/04/2008 KARMEN ESPINOSA APRN 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 11/04/2008 IGNACIO DO, TONE K 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 11/04/2008 TAYLOR CARVAJAL MD 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 11/04/2008 TAYLOR CARVAJAL MD 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 11/04/2008 KARMEN ESPINOSA APRN 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 11/04/2008 KARMEN ESPINOSA APRN 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 11/04/2008 TAYLOR CARVAJAL MD 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 11/04/2008 BILLY LAWRENCE APRN 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 11/04/2008 BILLY LAWRENCE APRN 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 11/04/2008 TAYLOR CARVAJAL MD 401.9 COMBINED SYSTOLIC AND DIASTOLIC ELEVATION 11/04/2008 HOWARD CHICKEN DRESSER, BILLY 401.9 COMBINED SYSTOLIC AND DIASTOLIC ELEVATION 11/04/2008 HOWARD CHICKEN DRESSER, BILLY 401.9 COMBINED SYSTOLIC AND DIASTOLIC ELEVATION 11/04/2008 WEI LINDO, TAYLOR 401.9 COMBINED SYSTOLIC AND DIASTOLIC ELEVATION 11/04/2008 JEMMA CHICKEN DRESSER, CRISTIANE A 401.9 COMBINED SYSTOLIC AND DIASTOLIC ELEVATION 11/04/2008 JEMMA CHICKEN DRESSER, CRISTIANE A 401.9 COMBINED SYSTOLIC AND DIASTOLIC ELEVATION 11/04/2008 HOWARD CHICKEN DRESSER, BILLY 401.9 COMBINED SYSTOLIC AND DIASTOLIC ELEVATION 11/04/2008 FABY CHICKEN DRESSER, SERAFIN S 401.9 COMBINED SYSTOLIC AND DIASTOLIC ELEVATION 11/04/2008 HOWARD CHICKEN DRESSER, BILLY 401.9 COMBINED SYSTOLIC AND DIASTOLIC ELEVATION 11/04/2008 FABY CHICKEN DRESSER, SERAFIN S 401.9 COMBINED SYSTOLIC AND DIASTOLIC ELEVATION 11/04/2008 SACHA PITT APRN 401.9 COMBINED SYSTOLIC AND DIASTOLIC ELEVATION 11/04/2008 FABY CHICKEN DRESSER, SERAFIN S 401.9 COMBINED SYSTOLIC AND DIASTOLIC ELEVATION 11/04/2008 HOWARD CHICKEN DRESSER, BILLY 401.9 COMBINED SYSTOLIC AND DIASTOLIC ELEVATION 11/04/2008 FABY CHICKEN DRESSER, SERAFIN S 401.9 COMBINED SYSTOLIC AND DIASTOLIC ELEVATION 02/07/2009 TONE IGNACIO DO 842.10 SPRAIN/STRAIN HAND 02/07/2009 TONE IGNACIO DO 842.10 SPRAIN/STRAIN HAND 02/07/2009 KARMEN ESPINOSA APRN 842.10 SPRAIN/STRAIN HAND 02/07/2009 TONE IGNACIO DO 842.10 SPRAIN/STRAIN HAND 02/07/2009 KARMEN ESPINOSA APRN 842.10 SPRAIN/STRAIN HAND 02/07/2009 842.10 SPRAIN/ STRAIN HAND 02/07/2009 842.10 SPRAIN/ STRAIN HAND 02/07/2009 842.10 SPRAIN/ STRAIN HAND 02/07/2009 842.10 SPRAIN/ STRAIN HAND 02/07/2009 842.10 SPRAIN/ STRAIN HAND 02/07/2009 842.10 SPRAIN/ STRAIN HAND 02/07/2009 842.10 SPRAIN/ STRAIN HAND 02/07/2009 KARMEN ESPINOSA APRN 842.10 SPRAIN/STRAIN HAND 02/07/2009 GARTON CHICKEN DRESSER, KARMEN Spann 842.10 SPRAIN/STRAIN HAND 02/07/2009 IGNACIO DO, TONE K 842.10 SPRAIN/STRAIN HAND 02/07/2009 IGNACIO DO, TONE K 842.10 SPRAIN/STRAIN HAND 02/07/2009 GARTON CHICKEN DRESSER, KARMEN Spann 842.10 SPRAIN/STRAIN HAND 02/07/2009 GARTON CHICKEN DRESSER, KARMEN Spann 842.10 SPRAIN/STRAIN HAND 02/07/2009 IGNACIO DO, TONE K 842.10 SPRAIN/STRAIN HAND 02/07/2009 WEI LINDO, TAYLOR 842.10 SPRAIN/STRAIN HAND 02/07/2009 WEI LINDO, TAYLOR 842.10 SPRAIN/STRAIN HAND 02/07/2009 GLENNTON CHICKEN DRESSER, KARMEN Spann 842.10 SPRAIN/STRAIN HAND 02/07/2009 FRANCISCA CUNNINGHAM, KARMEN Spann 842.10 SPRAIN/STRAIN HAND 02/07/2009 WEI LINDO, TAYLOR 842.10 SPRAIN/STRAIN HAND 02/07/2009 HOWARD CHICKEN DRESSER, BILLY 842.10 SPRAIN/STRAIN HAND 02/07/2009 HOWARD OCTAVIO, BILLY 842.10 SPRAIN/STRAIN HAND 02/07/2009 TAYLOR CARVAJAL MD 842.10 SPRAIN/STRAIN HAND 02/07/2009 HOWARD CHICKEN DRESSER, BILLY 842.10 SPRAIN/STRAIN HAND 02/07/2009 HOWARD CHICKEN DRESSER, BILLY 842.10 SPRAIN/STRAIN HAND 02/07/2009 TAYLOR CARVAJAL MD 842.10 SPRAIN/STRAIN HAND 02/07/2009 JEMMA APRN, CRISTIANE A 842.10 SPRAIN/STRAIN HAND 02/07/2009 JEMMA OCTAVOI, CRISTIANE A 842.10 SPRAIN/STRAIN HAND 02/07/2009 HOWARD CHICKEN DRESSER, BILLY 842.10 SPRAIN/STRAIN HAND 02/07/2009 FABY CUNNINGHAM SERAFIN S 842.10 SPRAIN/STRAIN HAND 02/07/2009 HOWARD CHICKEN DRESSER, BILLY 842.10 SPRAIN/STRAIN HAND 02/07/2009 FABYSERAFIN MADDOX APRN S 842.10 SPRAIN/STRAIN HAND 02/07/2009 SACHA PITT APRN 842.10 SPRAIN/STRAIN HAND 02/07/2009 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 APRN S 842.10 SPRAIN/STRAIN HAND 02/07/2009 BILLY LAWRENCE APRN 842.10 SPRAIN/STRAIN HAND 02/07/2009 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 APRN S 842.10 SPRAIN/STRAIN HAND 02/21/2009 TONE IGNACIO DO 716.90 ARTHRITIS 02/21/2009 TONE IGNACIO DO 716.90 ARTHRITIS 02/21/2009 KARMEN ESPINOSA APRN 716.90 ARTHRITIS 02/21/2009 TONE IGNACIO DO 716.90 ARTHRITIS 02/21/2009 KARMEN ESPINOSA APRN 716.90 ARTHRITIS 02/21/2009 716.90 ARTHRITIS 02/21/2009 716.90 ARTHRITIS 02/21/2009 716.90 ARTHRITIS 02/21/2009 716.90 ARTHRITIS 02/21/2009 716.90 ARTHRITIS 02/21/2009 716.90 ARTHRITIS 02/21/2009 716.90 ARTHRITIS 02/21/2009 KARMEN ESPINOSA APRN 716.90 ARTHRITIS 02/21/2009 KARMEN ESPINOSA APRN 716.90 ARTHRITIS 02/21/2009 TONE IGNACIO DO 716.90 ARTHRITIS 02/21/2009 TONE IGNACIO DO 716.90 ARTHRITIS 02/21/2009 KARMEN ESPINOSA APRN 716.90 ARTHRITIS 02/21/2009 KARMEN ESPINOSA APRN 716.90 ARTHRITIS 02/21/2009 TONE IGNACIO DO 716.90 ARTHRITIS 02/21/2009 TAYLOR CARVAJAL MD 716.90 ARTHRITIS 02/21/2009 TAYLOR CARVAJAL MD 716.90 ARTHRITIS 02/21/2009 KARMEN ESPINOSA APRN 716.90 ARTHRITIS 02/21/2009 KARMEN ESPINOSA APRN 716.90 ARTHRITIS 02/21/2009 TAYLOR CARVAJAL MD 716.90 ARTHRITIS 02/21/2009 BILLY LAWRENCE APRN 716.90 ARTHRITIS 02/21/2009 HOWARD CHICKEN DRESSER, BILLY 716.90 ARTHRITIS 02/21/2009 TAYLOR CARVAJAL MD 716.90 ARTHRITIS 02/21/2009 HOWARD CHICKEN DRESSER, BILLY 716.90 ARTHRITIS 02/21/2009 HOWARD CHICKEN DRESSER, BILLY 716.90 ARTHRITIS 02/21/2009 TAYLOR CARVAJAL MD 716.90 ARTHRITIS 02/21/2009 JEMMA CHICKEN DRESSER, CRISTIANE A 716.90 ARTHRITIS 02/21/2009 JEMMA CHICKEN DRESSER, CRISTIANE A 716.90 ARTHRITIS 02/21/2009 HOWARD CHICKEN DRESSER, BILLY 716.90 ARTHRITIS 02/21/2009 FABY CHICKEN DRESSER, SERAFIN S 716.90 ARTHRITIS 02/21/2009 HOWARD CHICKEN DRESSER, BILLY 716.90 ARTHRITIS 02/21/2009 FABY CHICKEN DRESSER, SERAFIN S 716.90 ARTHRITIS 02/21/2009 ANDREA PITT APRNON D 716.90 ARTHRITIS 02/21/2009 FABY CHICKEN DRESSER, SERAFIN S 716.90 ARTHRITIS 02/21/2009 HOWARD CHICKEN DRESSER, BILLY 716.90 ARTHRITIS 02/21/2009 FABY CHICKEN DRESSER, SERAFIN S 716.90 ARTHRITIS 07/12/2009 MATEUS POZO TONE K 530.81 ESOPHAGEAL REFLUX 07/12/2009 MATEUS POZO TONE K 530.81 ESOPHAGEAL REFLUX 07/12/2009 KARMEN ESPINOSA APRN 530.81 ESOPHAGEAL REFLUX 07/12/2009 MATEUS POZO TONE K 530.81 ESOPHAGEAL REFLUX 07/12/2009 KARMEN ESPINOSA APRN 530.81 ESOPHAGEAL REFLUX 07/12/2009 530.81 ESOPHAGEAL REFLUX 07/12/2009 530.81 ESOPHAGEAL REFLUX 07/12/2009 530.81 ESOPHAGEAL REFLUX 07/12/2009 530.81 ESOPHAGEAL REFLUX 07/12/2009 530.81 ESOPHAGEAL REFLUX 07/12/2009 530.81 ESOPHAGEAL REFLUX 07/12/2009 530.81 ESOPHAGEAL REFLUX 07/12/2009 KARMEN ESPINOSA APRN 530.81 ESOPHAGEAL REFLUX 07/12/2009 KARMEN ESPINOSA APRN 530.81 ESOPHAGEAL REFLUX 07/12/2009 MATEUS POZO TONE K 530.81 ESOPHAGEAL REFLUX 07/12/2009 MATEUS POZO TONE K 530.81 ESOPHAGEAL REFLUX 07/12/2009 KARMEN ESPINOSA APRN 530.81 ESOPHAGEAL REFLUX 07/12/2009 KARMEN ESPINOSA APRN 530.81 ESOPHAGEAL REFLUX 07/12/2009 IGNACIO DO, TONE K 530.81 ESOPHAGEAL REFLUX 07/12/2009 TAYLOR CARVAJAL MD 530.81 ESOPHAGEAL REFLUX 07/12/2009 TAYLOR CARVAJAL MD 530.81 ESOPHAGEAL REFLUX 07/12/2009 KARMEN ESPINOSA APRN 530.81 ESOPHAGEAL REFLUX 07/12/2009 KARMEN ESPINOSA APRN 530.81 ESOPHAGEAL REFLUX 07/12/2009 TAYLOR CARVAJAL MD 530.81 ESOPHAGEAL REFLUX 07/12/2009 HOWARD CHICKEN DRESSER, BILLY 530.81 ESOPHAGEAL REFLUX 07/12/2009 HOWARD OCTAVIO, BILLY 530.81 ESOPHAGEAL REFLUX 07/12/2009 TAYLOR CARVAJAL MD 530.81 ESOPHAGEAL REFLUX 07/12/2009 HOWARD CHICKEN DRESSER, BILLY 530.81 ESOPHAGEAL REFLUX 07/12/2009 HOWARDBISI [place], BILLY 530.81 ESOPHAGEAL REFLUX 07/12/2009 TAYLOR CARVAJAL MD 530.81 ESOPHAGEAL REFLUX 07/12/2009 JEMMA CHICKEN DRESSER, CRISTIANE A 530.81 ESOPHAGEAL REFLUX 07/12/2009 JEMMA OCTAVIO, CRISTIANE A 530.81 ESOPHAGEAL REFLUX 07/12/2009 HOWARD CHICKEN DRESSER, BILLY 530.81 ESOPHAGEAL REFLUX 07/12/2009 FABY APRN, SERAFIN S 530.81 ESOPHAGEAL REFLUX 07/12/2009 HOWARD CHICKEN DRESSER, BILLY 530.81 ESOPHAGEAL REFLUX 07/12/2009 FABY [place], SERAFIN S 530.81 ESOPHAGEAL REFLUX 07/12/2009 SACHA PITT APRN 530.81 ESOPHAGEAL REFLUX 07/12/2009 FABY [place], SERAFIN S 530.81 ESOPHAGEAL REFLUX 07/12/2009 HOWARD CHICKEN DRESSER, BILLY 530.81 ESOPHAGEAL REFLUX 07/12/2009 FABY [place], SERAFIN S 530.81 ESOPHAGEAL REFLUX 04/03/2010 IGNACIO DO, TONE K 272.4 DYSLIPIDEMIA 04/03/2010 IGNACIO DO, TONE K 272.4 DYSLIPIDEMIA 04/03/2010 KARMEN ESPINOSA APRN 272.4 DYSLIPIDEMIA 04/03/2010 IGNACIO DO, TONE K 272.4 DYSLIPIDEMIA 04/03/2010 KARMEN ESPINOSA APRN 272.4 DYSLIPIDEMIA 04/03/2010 272.4 DYSLIPIDEMIA 04/03/2010 272.4 DYSLIPIDEMIA 04/03/2010 272.4 DYSLIPIDEMIA 04/03/2010 272.4 DYSLIPIDEMIA 04/03/2010 272.4 DYSLIPIDEMIA 04/03/2010 272.4 DYSLIPIDEMIA 04/03/2010 272.4 DYSLIPIDEMIA 04/03/2010 KARMEN ESPINOSA APRN D 272.4 DYSLIPIDEMIA 04/03/2010 KARMEN ESPINOSA APRN 272.4 DYSLIPIDEMIA 04/03/2010 IGNACIO DO, TONE K 272.4 DYSLIPIDEMIA 04/03/2010 IGNACIO DO, TONE K 272.4 DYSLIPIDEMIA 04/03/2010 KARMEN ESPINOSA APRN 272.4 DYSLIPIDEMIA 04/03/2010 KARMEN ESPINOSA APRN 272.4 DYSLIPIDEMIA 04/03/2010 IGNACIO DO, TONE K 272.4 DYSLIPIDEMIA 04/03/2010 TAYLOR CARVAJAL MD 272.4 DYSLIPIDEMIA 04/03/2010 TAYOLR CARVAJAL MD 272.4 DYSLIPIDEMIA 04/03/2010 KARMEN ESPINOSA APRN 272.4 DYSLIPIDEMIA 04/03/2010 KARMEN ESPINOSA APRN 272.4 DYSLIPIDEMIA 04/03/2010 TAYLOR CARVAJAL MD 272.4 DYSLIPIDEMIA 04/03/2010 HOWARD CHICKEN DRESSER, BILLY 272.4 DYSLIPIDEMIA 04/03/2010 HOWARD CHICKEN DRESSER, BILLY 272.4 DYSLIPIDEMIA 04/03/2010 TAYLOR CARVAJAL MD 272.4 DYSLIPIDEMIA 04/03/2010 HOWARD CHICKEN DRESSER, BILLY 272.4 DYSLIPIDEMIA 04/03/2010 HOWARD CHICKEN DRESSER, BILLY 272.4 DYSLIPIDEMIA 04/03/2010 TAYLOR CARVAJAL MD 272.4 DYSLIPIDEMIA 04/03/2010 JEMMA CHICKEN DRESSER, CRISTIANE A 272.4 DYSLIPIDEMIA 04/03/2010 JEMMA CHICKEN DRESSER, CRISTIANE A 272.4 DYSLIPIDEMIA 04/03/2010 HOWARD CHICKEN DRESSER, BILLY 272.4 DYSLIPIDEMIA 04/03/2010 FABY CUNNINGHAM, SERAFIN S 272.4 DYSLIPIDEMIA 04/03/2010 HOWARD CHICKEN DRESSER, BILLY 272.4 DYSLIPIDEMIA 04/03/2010 FABY CUNNINGHAM, SERAFIN S 272.4 DYSLIPIDEMIA 04/03/2010 SACHA PITT APRN 272.4 DYSLIPIDEMIA 04/03/2010 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 APRN S 272.4 DYSLIPIDEMIA 04/03/2010 HOWARD CHICKEN DRESSER, BILLY 272.4 DYSLIPIDEMIA 04/03/2010 GELY HOBBS APRNA S 272.4 DYSLIPIDEMIA 08/07/2010 IGNACIO DOANUELA K 278.00 OBESITY UNSPECIFIED 08/07/2010 IGNACIO DO TONE K 278.00 OBESITY UNSPECIFIED 08/07/2010 KARMEN ESPINOSA APRN 278.00 OBESITY UNSPECIFIED 08/07/2010 IGNACIO DOANUELA K 278.00 OBESITY UNSPECIFIED 08/07/2010 KARMEN ESPINOSA APRN 278.00 OBESITY UNSPECIFIED 08/07/2010 278.00 OBESITY UNSPECIFIED 08/07/2010 278.00 OBESITY UNSPECIFIED 08/07/2010 278.00 OBESITY UNSPECIFIED 08/07/2010 278.00 OBESITY UNSPECIFIED 08/07/2010 278.00 OBESITY UNSPECIFIED 08/07/2010 278.00 OBESITY UNSPECIFIED 08/07/2010 278.00 OBESITY UNSPECIFIED 08/07/2010 KARMEN ESPINOSA APRN 278.00 OBESITY UNSPECIFIED 08/07/2010 KARMEN ESPINOSA APRN 278.00 OBESITY UNSPECIFIED 08/07/2010 IGNACIO DOANUELA K 278.00 OBESITY UNSPECIFIED 08/07/2010 TONE IGNACIO DO K 278.00 OBESITY UNSPECIFIED 08/07/2010 KARMEN ESPINOSA APRN 278.00 OBESITY UNSPECIFIED 08/07/2010 KARMEN ESPINOSA APRN 278.00 OBESITY UNSPECIFIED 08/07/2010 TONE IGNACIO DO K 278.00 OBESITY UNSPECIFIED 08/07/2010 TAYLOR CARVAJAL MD 278.00 OBESITY UNSPECIFIED 08/07/2010 TAYLOR CARVAJAL MD 278.00 OBESITY UNSPECIFIED 08/07/2010 KARMEN ESPINOSA APRN 278.00 OBESITY UNSPECIFIED 08/07/2010 KARMEN ESPINOSA APRN 278.00 OBESITY UNSPECIFIED 08/07/2010 TAYLOR CARVAJAL MD 278.00 OBESITY UNSPECIFIED 08/07/2010 BILLY LAWRENCE APRN 278.00 OBESITY UNSPECIFIED 08/07/2010 BILLY LAWRENCE APRN 278.00 OBESITY UNSPECIFIED 08/07/2010 TAYLOR CARVAJAL MD 278.00 OBESITY UNSPECIFIED 08/07/2010 OHWARD CHICKEN DRESSER, BILLY 278.00 OBESITY UNSPECIFIED 08/07/2010 HOWARD CHICKEN DRESSER, BILLY 278.00 OBESITY UNSPECIFIED 08/07/2010 WEI LINDO, TAYLOR 278.00 OBESITY UNSPECIFIED 08/07/2010 JEMMA CHICKEN DRESSER, CRISTIANE A 278.00 OBESITY UNSPECIFIED 08/07/2010 JEMMA CHICKEN DRESSER, CRISTIANE A 278.00 OBESITY UNSPECIFIED 08/07/2010 HOWARD CHICKEN DRESSER, BILLY 278.00 OBESITY UNSPECIFIED 08/07/2010 FABY CHICKEN DRESSER, SERAFIN S 278.00 OBESITY UNSPECIFIED 08/07/2010 HOWARD CHICKEN DRESSER, BILLY 278.00 OBESITY UNSPECIFIED 08/07/2010 FABY CHICKEN DRESSER, SERAFIN S 278.00 OBESITY UNSPECIFIED 08/07/2010 SWEETIE CHICKEN DRESSER, SACHA Spann 278.00 OBESITY UNSPECIFIED 08/07/2010 FABY CHICKEN DRESSER, SERAFIN S 278.00 OBESITY UNSPECIFIED 08/07/2010 HOWARD CHICKEN DRESSER, BILLY 278.00 OBESITY UNSPECIFIED 08/07/2010 FABY CHICKEN DRESSER, SERAFIN S 278.00 OBESITY UNSPECIFIED 09/11/2010 Ot 246.9 09/11/2010 Ot 276.9 09/11/2010 Ot 599.0 09/11/2010 Ot 789.09 09/11/2010 Ot V58.69 01/11/2011 TONE IGNACIO DO 836.0 TEAR OF MEDIAL CARTILAGE OR MENISCUS OF KNEE CURRENT 01/11/2011 TONE IGNACIO DO 836.0 TEAR OF MEDIAL CARTILAGE OR MENISCUS OF KNEE CURRENT 01/11/2011 KARMEN ESPINOSA APRN 836.0 TEAR OF MEDIAL CARTILAGE OR MENISCUS OF KNEE CURRENT 01/11/2011 TONE IGNACIO DO K 836.0 TEAR OF MEDIAL CARTILAGE OR MENISCUS OF KNEE CURRENT 01/11/2011 KARMEN ESPINOSA APRN 836.0 TEAR OF MEDIAL CARTILAGE OR MENISCUS OF KNEE CURRENT 01/11/2011 836.0 TEAR OF MEDIAL CARTILAGE OR MENISCUS OF KNEE CURRENT 01/11/2011 836.0 TEAR OF MEDIAL CARTILAGE OR MENISCUS OF KNEE CURRENT 01/11/2011 836.0 TEAR OF MEDIAL CARTILAGE OR MENISCUS OF KNEE CURRENT 01/11/2011 836.0 TEAR OF MEDIAL CARTILAGE OR MENISCUS OF KNEE CURRENT 01/11/2011 836.0 TEAR OF MEDIAL CARTILAGE OR MENISCUS OF KNEE CURRENT 01/11/2011 836.0 TEAR OF MEDIAL CARTILAGE OR MENISCUS OF KNEE CURRENT 01/11/2011 836.0 TEAR OF MEDIAL CARTILAGE OR MENISCUS OF KNEE CURRENT 01/11/2011 KARMEN ESPINOSA APRN D 836.0 TEAR OF MEDIAL CARTILAGE OR MENISCUS OF KNEE CURRENT 01/11/2011 KARMEN ESPINOSA APRN D 836.0 TEAR OF MEDIAL CARTILAGE OR MENISCUS OF KNEE CURRENT 01/11/2011 IGNACIO DO, TONE K 836.0 TEAR OF MEDIAL CARTILAGE OR MENISCUS OF KNEE CURRENT 01/11/2011 IGNACIO DO, TONE K 836.0 TEAR OF MEDIAL CARTILAGE OR MENISCUS OF KNEE CURRENT 01/11/2011 KARMEN ESPINOSA APRN D 836.0 TEAR OF MEDIAL CARTILAGE OR MENISCUS OF KNEE CURRENT 01/11/2011 KARMEN ESPINOSA APRN D 836.0 TEAR OF MEDIAL CARTILAGE OR MENISCUS OF KNEE CURRENT 01/11/2011 IGNACIO DO, TONE K 836.0 TEAR OF MEDIAL CARTILAGE OR MENISCUS OF KNEE CURRENT 01/11/2011 TAYLOR CARVAJAL MD 836.0 TEAR OF MEDIAL CARTILAGE OR MENISCUS OF KNEE CURRENT 01/11/2011 TAYLOR CARVAJAL MD 836.0 TEAR OF MEDIAL CARTILAGE OR MENISCUS OF KNEE CURRENT 01/11/2011 KARMEN ESPINOSA APRN D 836.0 TEAR OF MEDIAL CARTILAGE OR MENISCUS OF KNEE CURRENT 01/11/2011 KARMEN ESPINOSA APRN D 836.0 TEAR OF MEDIAL CARTILAGE OR MENISCUS OF KNEE CURRENT 01/11/2011 TAYLOR CARVAJAL MD 836.0 TEAR OF MEDIAL CARTILAGE OR MENISCUS OF KNEE CURRENT 01/11/2011 HOWARD CHICKEN DRESSER, BILLY 836.0 TEAR OF MEDIAL CARTILAGE OR MENISCUS OF KNEE CURRENT 01/11/2011 HOWARD CHICKEN DRESSER, BILLY 836.0 TEAR OF MEDIAL CARTILAGE OR MENISCUS OF KNEE CURRENT 01/11/2011 TAYLOR CARVAJAL MD 836.0 TEAR OF MEDIAL CARTILAGE OR MENISCUS OF KNEE CURRENT 01/11/2011 HOWARD CHICKEN DRESSER, BILLY 836.0 TEAR OF MEDIAL CARTILAGE OR MENISCUS OF KNEE CURRENT 01/11/2011 HOWARD CHICKEN DRESSER, BILLY 836.0 TEAR OF MEDIAL CARTILAGE OR MENISCUS OF KNEE CURRENT 01/11/2011 TAYLOR CARVAJAL MD 836.0 TEAR OF MEDIAL CARTILAGE OR MENISCUS OF KNEE CURRENT 01/11/2011 JEMMA CHICKEN DRESSER, CRISTIANE A 836.0 TEAR OF MEDIAL CARTILAGE OR MENISCUS OF KNEE CURRENT 01/11/2011 JEMMA CHICKEN DRESSER, CRISTIANE A 836.0 TEAR OF MEDIAL CARTILAGE OR MENISCUS OF KNEE CURRENT 01/11/2011 HOWARD CHICKEN DRESSER, BILLY 836.0 TEAR OF MEDIAL CARTILAGE OR MENISCUS OF KNEE CURRENT 01/11/2011 FABY CHICKEN DRESSER, SERAFIN S 836.0 TEAR OF MEDIAL CARTILAGE OR MENISCUS OF KNEE CURRENT 01/11/2011 HOWARD CHICKEN DRESSER, BILLY 836.0 TEAR OF MEDIAL CARTILAGE OR MENISCUS OF KNEE CURRENT 01/11/2011 GELY HOBBS APRNA S 836.0 TEAR OF MEDIAL CARTILAGE OR MENISCUS OF KNEE CURRENT 01/11/2011 SACHA PITT APRN 836.0 TEAR OF MEDIAL CARTILAGE OR MENISCUS OF KNEE CURRENT 01/11/2011 FABY CHICKEN DRESSER, SERAFIN S 836.0 TEAR OF MEDIAL CARTILAGE OR MENISCUS OF KNEE CURRENT 01/11/2011 HOWARD CHICKEN DRESSER, BILLY 836.0 TEAR OF MEDIAL CARTILAGE OR MENISCUS OF KNEE CURRENT 01/11/2011 FABY CHICKEN DRESSER, SERAFIN S 836.0 TEAR OF MEDIAL CARTILAGE OR MENISCUS OF KNEE CURRENT 03/21/2011 TONE IGNACIO DO 296.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 SEVERE W/O PSYCHOTIC BEHAVIOR 03/21/2011 TONE IGNACIO DO 300.02 AN GEN ANXIETY 03/21/2011 TONE IGNACIO DO 296.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 SEVERE W/O PSYCHOTIC BEHAVIOR 03/21/2011 TONE IGNACIO DO 300.02 AN GEN ANXIETY 03/21/2011 KARMEN ESPINOSA APRN 296.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 SEVERE W/O PSYCHOTIC BEHAVIOR 03/21/2011 KARMEN ESPINOSA APRN 300.02 AN GEN ANXIETY 03/21/2011 TONE IGNACIO DO 296.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 SEVERE W/O PSYCHOTIC BEHAVIOR 03/21/2011 TONE IGNACIO DO 300.02 AN GEN ANXIETY 03/21/2011 KARMEN ESPINOSA APRN 296.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 SEVERE W/O PSYCHOTIC BEHAVIOR 03/21/2011 KARMEN ESPINOSA APRN 300.02 AN GEN ANXIETY 03/21/2011 296.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 SEVERE W/O PSYCHOTIC BEHAVIOR 03/21/2011 300.02 AN GEN ANXIETY 03/21/2011 296.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 SEVERE W/O PSYCHOTIC BEHAVIOR 03/21/2011 300.02 AN GEN ANXIETY 03/21/2011 296.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 SEVERE W/O PSYCHOTIC BEHAVIOR 03/21/2011 300.02 AN GEN ANXIETY 03/21/2011 296.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 SEVERE W/O PSYCHOTIC BEHAVIOR 03/21/2011 300.02 AN GEN ANXIETY 03/21/2011 296.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 SEVERE W/O PSYCHOTIC BEHAVIOR 03/21/2011 300.02 AN GEN ANXIETY 03/21/2011 296.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 SEVERE W/O PSYCHOTIC BEHAVIOR 03/21/2011 300.02 AN GEN ANXIETY 03/21/2011 296.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 SEVERE W/O PSYCHOTIC BEHAVIOR 03/21/2011 300.02 AN GEN ANXIETY 03/21/2011 KARMEN ESPINOSA APRN 296.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 SEVERE W/O PSYCHOTIC BEHAVIOR 03/21/2011 KARMEN ESPINOSA APRN 300.02 AN GEN ANXIETY 03/21/2011 KARMEN ESPINOSA APRN 296.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 SEVERE W/O PSYCHOTIC BEHAVIOR 03/21/2011 KARMEN ESPINOSA APRN 300.02 AN GEN ANXIETY 03/21/2011 TONE IGNACIO DO 296.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 SEVERE W/O PSYCHOTIC BEHAVIOR 03/21/2011 TONE IGNACIO DO 300.02 AN GEN ANXIETY 03/21/2011 TONE IGNACIO DO 296.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 SEVERE W/O PSYCHOTIC BEHAVIOR 03/21/2011 TONE IGNACIO DO 300.02 AN GEN ANXIETY 03/21/2011 KARMEN ESPINOSA APRN 296.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 SEVERE W/O PSYCHOTIC BEHAVIOR 03/21/2011 KARMEN ESPINOSA APRN 300.02 AN GEN ANXIETY 03/21/2011 KARMEN ESPINOSA APRN 296.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 SEVERE W/O PSYCHOTIC BEHAVIOR 03/21/2011 KARMEN ESPINOSA APRN 300.02 AN GEN ANXIETY 03/21/2011 TONE IGNACIO DO 296.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 SEVERE W/O PSYCHOTIC BEHAVIOR 03/21/2011 TONE IGNACIO DO 300.02 AN GEN ANXIETY 03/21/2011 TAYLOR CARVAJAL MD 296.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 SEVERE W/O PSYCHOTIC BEHAVIOR 03/21/2011 TAYLOR CARVAJAL MD 300.02 AN GEN ANXIETY 03/21/2011 TAYLOR CARVAJAL MD 296.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 SEVERE W/O PSYCHOTIC BEHAVIOR 03/21/2011 TAYLOR CARVAJAL MD 300.02 AN GEN ANXIETY 03/21/2011 KARMEN ESPINOSA APRN 296.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 SEVERE W/O PSYCHOTIC BEHAVIOR 03/21/2011 KARMEN ESPINOSA APRN 300.02 AN GEN ANXIETY 03/21/2011 KARMEN ESPINOSA APRN 296.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 SEVERE W/O PSYCHOTIC BEHAVIOR 03/21/2011 KARMEN ESPINOSA APRN 300.02 AN GEN ANXIETY 03/21/2011 TAYLOR CARVAJAL MD 296.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 SEVERE W/O PSYCHOTIC BEHAVIOR 03/21/2011 TAYLOR CARVAJAL MD 300.02 AN GEN ANXIETY 03/21/2011 BILLY LAWRENCE APRN 296.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 SEVERE W/O PSYCHOTIC BEHAVIOR 03/21/2011 SLIME LAWRENCE APRNETTE 300.02 AN GEN ANXIETY 03/21/2011 SLIME LAWRENCE APRNETTE 296.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 SEVERE W/O PSYCHOTIC BEHAVIOR 03/21/2011 SLIME LAWRENCE APRNETTE 300.02 AN GEN ANXIETY 03/21/2011 TAYLOR CARVAJAL MD 296.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 SEVERE W/O PSYCHOTIC BEHAVIOR 03/21/2011 TAYLOR CARVAJAL MD 300.02 AN GEN ANXIETY 03/21/2011 HOWARD CUNNINGHAM BILLY 296.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 SEVERE W/O PSYCHOTIC BEHAVIOR 03/21/2011 HOWARD CUNNINGHAM BILLY 300.02 AN GEN ANXIETY 03/21/2011 HOWARD CUNNINGHAM BILLY 296.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 SEVERE W/O PSYCHOTIC BEHAVIOR 03/21/2011 HOWARD CUNNINGHAM BILLY 300.02 AN GEN ANXIETY 03/21/2011 TAYLOR CARVAJAL MD 296.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 SEVERE W/O PSYCHOTIC BEHAVIOR 03/21/2011 TAYLOR CARVAJAL MD 300.02 AN GEN ANXIETY 03/21/2011 CRISTIANE EASTON APRN 296.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 SEVERE W/O PSYCHOTIC BEHAVIOR 03/21/2011 JEMMA CHICKEN DRESSER, CRISTIANE A 300.02 AN GEN ANXIETY 03/21/2011 JEMMA CHICKEN DRESSER, CRISTIANE A 296.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 SEVERE W/O PSYCHOTIC BEHAVIOR 03/21/2011 JEMMA CHICKEN DRESSER, CRISTIANE A 300.02 AN GEN ANXIETY 03/21/2011 HOWARDBISI CUNNINGHAM BILLY 296.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 SEVERE W/O PSYCHOTIC BEHAVIOR 03/21/2011 HOWARD CUNNINGHAM BILLY 300.02 AN GEN ANXIETY 03/21/2011 GELY HOBBS APRNA S 296.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 SEVERE W/O PSYCHOTIC BEHAVIOR 03/21/2011 GELY HOBBS APRNA S 300.02 AN GEN ANXIETY 03/21/2011 SLIME LAWRENCE APRNETTE 296.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 SEVERE W/O PSYCHOTIC BEHAVIOR 03/21/2011 SLIME LAWRENCE APRNETTE 300.02 AN GEN ANXIETY 03/21/2011 GELY HOBBS APRNA S 296.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 SEVERE W/O PSYCHOTIC BEHAVIOR 03/21/2011 GELY HOBBS APRNA S 300.02 AN GEN ANXIETY 03/21/2011 SACHA PITT APRN 296.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 SEVERE W/O PSYCHOTIC BEHAVIOR 03/21/2011 SACHA PITT APRN 300.02 AN GEN ANXIETY 03/21/2011 GELY HOBBS APRNA S 296.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 SEVERE W/O PSYCHOTIC BEHAVIOR 03/21/2011 GELY HOBBS APRNA S 300.02 AN GEN ANXIETY 03/21/2011 BILLY LAWRENCE APRN 296.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 SEVERE W/O PSYCHOTIC BEHAVIOR 03/21/2011 SLIME LAWRENCE APRNETTE 300.02 AN GEN ANXIETY 03/21/2011 GELY HOBBS APRNA S 296.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 SEVERE W/O PSYCHOTIC BEHAVIOR 03/21/2011 GELY HOBBS APRNA S 300.02 AN GEN ANXIETY 05/31/2011 TONE IGNACIO DO 461.9 Sinusitis Acute 05/31/2011 TONE IGNACIO DO 786.07 Wheezing 05/31/2011 TONE IGNACIO DO 786.2 Cough 05/31/2011 TONE IGNACIO DO V04.81 Flu Dx (3 Yrs And Above, Im) 05/31/2011 IGNACIO DO, TONE K 461.9 Sinusitis Acute 05/31/2011 IGNACIO DO TONE K 786.07 Wheezing 05/31/2011 IGNACIO DO TONE K 786.2 Cough 05/31/2011 IGNACIO DO TONE K V04.81 Flu Dx (3 Yrs And Above, Im) 05/31/2011 KARMEN ESPINOSA APRN 461.9 Sinusitis Acute 05/31/2011 KARMEN ESPINOSA APRN 786.07 Wheezing 05/31/2011 KARMEN ESPINOSA APRN 786.2 Cough 05/31/2011 KARMEN ESPINOSA APRN V04.81 Flu Dx (3 Yrs And Above, Im) 05/31/2011 TONE IGNACIO DO K 461.9 Sinusitis Acute 05/31/2011 ANUEL IGNACIO DOA K 786.07 Wheezing 05/31/2011 ANUEL IGNACIO DOA K 786.2 Cough 05/31/2011 ANUEL IGNACIO DOA K V04.81 Flu Dx (3 Yrs And Above, Im) 05/31/2011 KARMEN ESPINOSA APRN 461.9 Sinusitis Acute 05/31/2011 KARMEN ESPINOSA APRN 786.07 Wheezing 05/31/2011 KARMEN ESPINOSA APRN 786.2 Cough 05/31/2011 KARMEN ESPINOSA APRN V04.81 Flu Dx (3 Yrs And Above, Im) 05/31/2011 461.9 Sinusitis Acute 05/31/2011 786.07 Wheezing 05/31/2011 786.2 Cough 05/31/2011 V04.81 Flu Dx (3 Yrs And Above, Im) 05/31/2011 461.9 Sinusitis Acute 05/31/2011 786.07 Wheezing 05/31/2011 786.2 Cough 05/31/2011 V04.81 Flu Dx (3 Yrs And Above, Im) 05/31/2011 461.9 Sinusitis Acute 05/31/2011 786.07 Wheezing 05/31/2011 786.2 Cough 05/31/2011 V04.81 Flu Dx (3 Yrs And Above, Im) 05/31/2011 461.9 Sinusitis Acute 05/31/2011 786.07 Wheezing 05/31/2011 786.2 Cough 05/31/2011 V04.81 Flu Dx (3 Yrs And Above, Im) 05/31/2011 461.9 Sinusitis Acute 05/31/2011 786.07 Wheezing 05/31/2011 786.2 Cough 05/31/2011 V04.81 Flu Dx (3 Yrs And Above, Im) 05/31/2011 461.9 Sinusitis Acute 05/31/2011 786.07 Wheezing 05/31/2011 786.2 Cough 05/31/2011 V04.81 Flu Dx (3 Yrs And Above, Im) 05/31/2011 461.9 Sinusitis Acute 05/31/2011 786.07 Wheezing 05/31/2011 786.2 Cough 05/31/2011 V04.81 Flu Dx (3 Yrs And Above, Im) 05/31/2011 KARMEN ESPINOSA APRN D 461.9 Sinusitis Acute 05/31/2011 KARMEN ESPINOSA APRN D 786.07 Wheezing 05/31/2011 KARMEN ESPINOSA APRN D 786.2 Cough 05/31/2011 KARMEN ESPINOSA APRN D V04.81 Flu Dx (3 Yrs And Above, Im) 05/31/2011 KARMEN ESPINOSA APRN D 461.9 Sinusitis Acute 05/31/2011 KARMEN ESPINOSA APRN D 786.07 Wheezing 05/31/2011 KARMEN ESPINOSA APRN D 786.2 Cough 05/31/2011 KIRA ESPINOSA APRNBETH D V04.81 Flu Dx (3 Yrs And Above, Im) 05/31/2011 IGNACIO DO TONE K 461.9 Sinusitis Acute 05/31/2011 IGNACIO DO, TONE K 786.07 Wheezing 05/31/2011 IGNACIO DO, TONE K 786.2 Cough 05/31/2011 IGNACIO DO, TONE K V04.81 Flu Dx (3 Yrs And Above, Im) 05/31/2011 IGNACIO DO, TONE K 461.9 Sinusitis Acute 05/31/2011 IGNACIO DO, TONE K 786.07 Wheezing 05/31/2011 IGNACIO DO, TONE K 786.2 Cough 05/31/2011 IGNACIO DO, TONE K V04.81 Flu Dx (3 Yrs And Above, Im) 05/31/2011 GARTON CHICKEN DRESSER, KARMEN D 461.9 Sinusitis Acute 05/31/2011 KIRA ESPINOSA APRNBETH D 786.07 Wheezing 05/31/2011 LOY ESPINOSA APRNTH D 786.2 Cough 05/31/2011 KIRA ESPINOSA APRNBETH D V04.81 Flu Dx (3 Yrs And Above, Im) 05/31/2011 LOY ESPINOSA APRNTH D 461.9 Sinusitis Acute 05/31/2011 KIRA ESPINOSA APRNBETH D 786.07 Wheezing 05/31/2011 KIRA EPSINOSA APRNBETH D 786.2 Cough 05/31/2011 KIRA ESPINOSA APRNBETH D V04.81 Flu Dx (3 Yrs And Above, Im) 05/31/2011 IGNACIO DO, TONE K 461.9 Sinusitis Acute 05/31/2011 IGNACIO DO, TONE K 786.07 Wheezing 05/31/2011 IGNACIO DO, TONE K 786.2 Cough 05/31/2011 IGNACIO DO, TONE K V04.81 Flu Dx (3 Yrs And Above, Im) 05/31/2011 TAYLOR CARVAJAL MD 461.9 Sinusitis Acute 05/31/2011 WEI LINDO, TAYLOR 786.07 Wheezing 05/31/2011 WEI LINDO, TAYLOR 786.2 Cough 05/31/2011 TAYLOR CARVAJAL MD V04.81 Flu Dx (3 Yrs And Above, Im) 05/31/2011 TAYLOR CARVAJAL MD 461.9 Sinusitis Acute 05/31/2011 TAYLOR CARVAJAL MD 786.07 Wheezing 05/31/2011 WEI LINDO, TAYLOR 786.2 Cough 05/31/2011 TAYLOR CARVAJAL MD V04.81 Flu Dx (3 Yrs And Above, Im) 05/31/2011 KARMEN ESPINOSA APRN D 461.9 Sinusitis Acute 05/31/2011 KARMEN ESPINOSA APRN D 786.07 Wheezing 05/31/2011 KIRA ESPINOSA APRNBETH D 786.2 Cough 05/31/2011 KIRA ESPINOSA APRNBETH D V04.81 Flu Dx (3 Yrs And Above, Im) 05/31/2011 KARMEN ESPINOSA APRN D 461.9 Sinusitis Acute 05/31/2011 KARMEN ESPINOSA APRN 786.07 Wheezing 05/31/2011 KARMEN ESPINOSA APRN 786.2 Cough 05/31/2011 KARMEN ESPINOSA APRN V04.81 Flu Dx (3 Yrs And Above, Im) 05/31/2011 TAYLOR CARVAJAL MD 461.9 Sinusitis Acute 05/31/2011 TAYLOR CARVAJAL MD 786.07 Wheezing 05/31/2011 TAYLOR CARVAJAL MD 786.2 Cough 05/31/2011 TAYLOR CARVAJAL MD V04.81 Flu Dx (3 Yrs And Above, Im) 05/31/2011 HOWARD CHICKEN DRESSER, BILLY 461.9 Sinusitis Acute 05/31/2011 HOWARD CHICKEN DRESSER, BILLY 786.07 Wheezing 05/31/2011 HOWARD CHICKEN DRESSER, BILLY 786.2 Cough 05/31/2011 HOWARD CHICKEN DRESSER, BILLY V04.81 Flu Dx (3 Yrs And Above, Im) 05/31/2011 HOWARD CHICKEN DRESSER, BILLY 461.9 Sinusitis Acute 05/31/2011 HOWARD CHICKEN DRESSER, BILLY 786.07 Wheezing 05/31/2011 HOWARD CHICKEN DRESSER, BILLY 786.2 Cough 05/31/2011 HOWARD CHICKEN DRESSER, BILLY V04.81 Flu Dx (3 Yrs And Above, Im) 05/31/2011 TAYLOR CARVAJAL MD 461.9 Sinusitis Acute 05/31/2011 TAYLOR CARVAJAL MD 786.07 Wheezing 05/31/2011 TAYLOR CARVAJAL MD 786.2 Cough 05/31/2011 TAYLOR CARVAJAL MD V04.81 Flu Dx (3 Yrs And Above, Im) 05/31/2011 HOWARD CHICKEN DRESSER, BILLY 461.9 Sinusitis Acute 05/31/2011 HOWARD CHICKEN DRESSER, BILLY 786.07 Wheezing 05/31/2011 HOWARD CHICKEN DRESSER, BILLY 786.2 Cough 05/31/2011 HOWARD CHICKEN DRESSER, BILLY V04.81 Flu Dx (3 Yrs And Above, Im) 05/31/2011 HOWARD CHICKEN DRESSER, BILLY 461.9 Sinusitis Acute 05/31/2011 HOWARD CHICKEN DRESSER, BILLY 786.07 Wheezing 05/31/2011 HOAWRD CHICKEN DRESSER, BILLY 786.2 Cough 05/31/2011 HOWARD CHICKEN DRESSER, BILLY V04.81 Flu Dx (3 Yrs And Above, Im) 05/31/2011 WEI LINDO, TAYLOR 461.9 Sinusitis Acute 05/31/2011 WEI LINDO, TAYLOR 786.07 Wheezing 05/31/2011 WEI LINDO, TAYLOR 786.2 Cough 05/31/2011 WEI LINDO, TAYLOR V04.81 Flu Dx (3 Yrs And Above, Im) 05/31/2011 JEMMA CHICKEN DRESSER, CRISTIANE A 461.9 Sinusitis Acute 05/31/2011 JEMMA CHICKEN DRESSER, CRISTIANE A 786.07 Wheezing 05/31/2011 JEMMA CHICKEN DRESSER, CRISTIANE A 786.2 Cough 05/31/2011 JEMMA CHICKEN DRESSER, CRISTIANE A V04.81 Flu Dx (3 Yrs And Above, Im) 05/31/2011 JEMMA CHICKEN DRESSER, CRISTIANE A 461.9 Sinusitis Acute 05/31/2011 JEMMA CHICKEN DRESSER, CRISTIANE A 786.07 Wheezing 05/31/2011 JEMMA CHICKEN DRESSER, CRISTIANE A 786.2 Cough 05/31/2011 JEMMA CHICKEN DRESSER, CRISTIANE A V04.81 Flu Dx (3 Yrs And Above, Im) 05/31/2011 HOWARD CHICKEN DRESSER, BILLY 461.9 Sinusitis Acute 05/31/2011 HOWARD CHICKEN DRESSER, BILLY 786.07 Wheezing 05/31/2011 HOWARD CHICKEN DRESSER, BILLY 786.2 Cough 05/31/2011 HOWARD CHICKEN DRESSER, BILLY V04.81 Flu Dx (3 Yrs And Above, Im) 05/31/2011 FABY CHICKEN DRESSER, SERAFIN S 461.9 Sinusitis Acute 05/31/2011 FABY CHICKEN DRESSER, SERAFIN S 786.07 Wheezing 05/31/2011 FABY CHICKEN DRESSER, SERAFIN S 786.2 Cough 05/31/2011 FABY CHICKEN DRESSER, SERAFIN S V04.81 Flu Dx (3 Yrs And Above, Im) 05/31/2011 HOWARD CHICKEN DRESSER, BILLY 461.9 Sinusitis Acute 05/31/2011 HOWARD CHICKEN DRESSER, BILLY 786.07 Wheezing 05/31/2011 HOWARD CHICKEN DRESSER, BILLY 786.2 Cough 05/31/2011 HOWARD CHICKEN DRESSER, BILLY V04.81 Flu Dx (3 Yrs And Above, Im) 05/31/2011 FABY CHICKEN DRESSER, SERAFIN S 461.9 Sinusitis Acute 05/31/2011 FABY CHICKEN DRESSER, SERAFIN S 786.07 Wheezing 05/31/2011 FABY CHICKEN DRESSER, SERAFIN S 786.2 Cough 05/31/2011 FABY CHICKEN DRESSER, SERAFIN S V04.81 Flu Dx (3 Yrs And Above, Im) 05/31/2011 PITT CHICKEN DRESSER, SACHA D 461.9 Sinusitis Acute 05/31/2011 PITT CHICKEN DRESSER, SACHA D 786.07 Wheezing 05/31/2011 PITT CHICKEN DRESSER, SACHA D 786.2 Cough 05/31/2011 PITT CHICKEN DRESSER, SACHA D V04.81 Flu Dx (3 Yrs And Above, Im) 05/31/2011 FABY CHICKEN DRESSER, SERAFIN S 461.9 Sinusitis Acute 05/31/2011 FABY CHICKEN DRESSER, SERAFIN S 786.07 Wheezing 05/31/2011 FABY CHICKEN DRESSER, SERAFIN S 786.2 Cough 05/31/2011 FABY CHICKEN DRESSER, SERAFIN S V04.81 Flu Dx (3 Yrs And Above, Im) 05/31/2011 HOWARD CHICKEN DRESSER, BILLY 461.9 Sinusitis Acute 05/31/2011 HOWARD CHICKEN DRESSER, BILLY 786.07 Wheezing 05/31/2011 HOWARD CHICKEN DRESSER, BILLY 786.2 Cough 05/31/2011 HOWARD CHICKEN DRESSER, BILLY V04.81 Flu Dx (3 Yrs And Above, Im) 05/31/2011 FABY CHICKEN DRESSER, SERAFIN S 461.9 Sinusitis Acute 05/31/2011 FABY CHICKEN DRESSER, SERAFIN S 786.07 Wheezing 05/31/2011 FABY CHICKEN DRESSER, SERAFIN S 786.2 Cough 05/31/2011 FABY CHICKEN DRESSER, SERAFIN S V04.81 Flu Dx (3 Yrs And Above, Im) 10/22/2011 TONE IGNACIO DO K 268.9 VITAMIN D DEFICIENCY 10/22/2011 TONE IGNACIO DO K 268.9 VITAMIN D DEFICIENCY 10/22/2011 KARMEN ESPINOSA APRN 268.9 VITAMIN D DEFICIENCY 10/22/2011 TONE IGNACIO DO 268.9 VITAMIN D DEFICIENCY 10/22/2011 KARMEN ESPINOSA APRN 268.9 VITAMIN D DEFICIENCY 10/22/2011 268.9 VITAMIN D DEFICIENCY 10/22/2011 268.9 VITAMIN D DEFICIENCY 10/22/2011 268.9 VITAMIN D DEFICIENCY 10/22/2011 268.9 VITAMIN D DEFICIENCY 10/22/2011 268.9 VITAMIN D DEFICIENCY 10/22/2011 268.9 VITAMIN D DEFICIENCY 10/22/2011 268.9 VITAMIN D DEFICIENCY 10/22/2011 KARMEN ESPINOSA APRN 268.9 VITAMIN D DEFICIENCY 10/22/2011 KARMEN ESPINOSA APRN 268.9 VITAMIN D DEFICIENCY 10/22/2011 IGNACIO DO, TONE K 268.9 VITAMIN D DEFICIENCY 10/22/2011 IGNACIO DO, TONE K 268.9 VITAMIN D DEFICIENCY 10/22/2011 KARMEN ESPINOSA APRN 268.9 VITAMIN D DEFICIENCY 10/22/2011 KARMEN ESPINOSA APRN 268.9 VITAMIN D DEFICIENCY 10/22/2011 IGNACIO DO, TONE K 268.9 VITAMIN D DEFICIENCY 10/22/2011 TAYLOR CARVAJAL MD 268.9 VITAMIN D DEFICIENCY 10/22/2011 TAYLOR CARVAJAL MD 268.9 VITAMIN D DEFICIENCY 10/22/2011 KARMEN ESPINOSA APRN 268.9 VITAMIN D DEFICIENCY 10/22/2011 KARMEN ESPINOSA APRN 268.9 VITAMIN D DEFICIENCY 10/22/2011 TAYLOR CARVAJAL MD 268.9 VITAMIN D DEFICIENCY 10/22/2011 BILLY LAWRENCE APRN 268.9 VITAMIN D DEFICIENCY 10/22/2011 BILLY LAWRENCE APRN 268.9 VITAMIN D DEFICIENCY 10/22/2011 TAYLOR CARVAJAL MD 268.9 VITAMIN D DEFICIENCY 10/22/2011 BILLY LAWRENCE APRN 268.9 VITAMIN D DEFICIENCY 10/22/2011 BILLY LAWRENCE APRN 268.9 VITAMIN D DEFICIENCY 10/22/2011 TAYLOR CARVAJAL MD 268.9 VITAMIN D DEFICIENCY 10/22/2011 CRISTIANE EASTON APRN 268.9 VITAMIN D DEFICIENCY 10/22/2011 CRISTIANE EASTON APRN 268.9 VITAMIN D DEFICIENCY 10/22/2011 BILLY LAWRENCE APRN 268.9 VITAMIN D DEFICIENCY 10/22/2011 FABY CHICKEN DRESSER, SERAFNI S 268.9 VITAMIN D DEFICIENCY 10/22/2011 BILLY LAWRENCE APRN 268.9 VITAMIN D DEFICIENCY 10/22/2011 GELY HOBBS APRNA S 268.9 VITAMIN D DEFICIENCY 10/22/2011 SACHA PITT APRN 268.9 VITAMIN D DEFICIENCY 10/22/2011 GELY HOBBS APRNA S 268.9 VITAMIN D DEFICIENCY 10/22/2011 BILLY LAWRENCE APRN 268.9 VITAMIN D DEFICIENCY 10/22/2011 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 APRN S 268.9 VITAMIN D DEFICIENCY 11/16/2011 TONE IGNACIO DO 780.57 SLEEP APNEA 11/16/2011 TONE IGNACIO DO K 780.57 SLEEP APNEA 11/16/2011 KARMEN ESPINOSA APRN 780.57 SLEEP APNEA 11/16/2011 TONE IGNACIO DO 780.57 SLEEP APNEA 11/16/2011 KARMEN ESPINOSA APRN 780.57 SLEEP APNEA 11/16/2011 780.57 SLEEP APNEA 11/16/2011 780.57 SLEEP APNEA 11/16/2011 780.57 SLEEP APNEA 11/16/2011 780.57 SLEEP APNEA 11/16/2011 780.57 SLEEP APNEA 11/16/2011 780.57 SLEEP APNEA 11/16/2011 780.57 SLEEP APNEA 11/16/2011 KARMEN ESPINOSA APRN 780.57 SLEEP APNEA 11/16/2011 KARMEN ESPINOSA APRN 780.57 SLEEP APNEA 11/16/2011 TONE IGNACIO DO 780.57 SLEEP APNEA 11/16/2011 TONE IGNACIO DO 780.57 SLEEP APNEA 11/16/2011 KARMEN ESPINOSA APRN 780.57 SLEEP APNEA 11/16/2011 KARMEN ESPINOSA APRN 780.57 SLEEP APNEA 11/16/2011 TONE IGNACIO DO 780.57 SLEEP APNEA 11/16/2011 TAYLOR CARVAJAL MD 780.57 SLEEP APNEA 11/16/2011 TAYLOR CARVAJAL MD 780.57 SLEEP APNEA 11/16/2011 KARMEN ESPINOSA APRN 780.57 SLEEP APNEA 11/16/2011 KARMEN ESPINOSA APRN 780.57 SLEEP APNEA 11/16/2011 TAYLOR CARVAJAL MD 780.57 SLEEP APNEA 11/16/2011 HOWARD CHICKEN DRESSER, BILLY 780.57 SLEEP APNEA 11/16/2011 HOWARD CHICKEN DRESSER, BILLY 780.57 SLEEP APNEA 11/16/2011 TAYLOR CARVAJAL MD 780.57 SLEEP APNEA 11/16/2011 HOWARD CHICKEN DRESSER, BILLY 780.57 SLEEP APNEA 11/16/2011 HOWARD CHICKEN DRESSER, BILLY 780.57 SLEEP APNEA 11/16/2011 TAYLOR CARVAJAL MD 780.57 SLEEP APNEA 11/16/2011 JEMAM CHICKEN DRESSER, CRISTIANE A 780.57 SLEEP APNEA 11/16/2011 JEMMA CHICKEN DRESSER, CRISTIANE A 780.57 SLEEP APNEA 11/16/2011 HOWARD CHICKEN DRESSER, BILLY 780.57 SLEEP APNEA 11/16/2011 FABY CHICKEN DRESSER, SERAFIN S 780.57 SLEEP APNEA 11/16/2011 HOWARD CHICKEN DRESSER, BILLY 780.57 SLEEP APNEA 11/16/2011 FABY CHICKEN DRESSER, SERAFIN S 780.57 SLEEP APNEA 11/16/2011 ANDREA PITT APRNON Zana 780.57 SLEEP APNEA 11/16/2011 FABY CHICKEN DRESSER, SERAFIN S 780.57 SLEEP APNEA 11/16/2011 HOWARD CHICKEN DRESSER, BILLY 780.57 SLEEP APNEA 11/16/2011 FABY CHICKEN DRESSER, SERAFIN S 780.57 SLEEP APNEA 02/20/2012 TONE IGNACIO DO 627.9 MENOPAUSAL AND POSTMENOPAUSAL DISORDER UNSPECIFIED 02/20/2012 TONE IGNACIO DO V76.10 Breast Cancer Screening 02/20/2012 TONE IGNACIO DO V76.47 Vaginal Pap Smear Screening 02/20/2012 TONE IGNACIO DO 627.9 MENOPAUSAL AND POSTMENOPAUSAL DISORDER UNSPECIFIED 02/20/2012 TONE IGNACIO DO K V76.10 Breast Cancer Screening 02/20/2012 TONE IGNACIO DO V76.47 Vaginal Pap Smear Screening 02/20/2012 KARMEN ESPINOSA APRN 627.9 MENOPAUSAL AND POSTMENOPAUSAL DISORDER UNSPECIFIED 02/20/2012 KARMEN ESPINOSA APRN V76.10 Breast Cancer Screening 02/20/2012 KARMEN ESPINOSA APRN V76.47 Vaginal Pap Smear Screening 02/20/2012 TONE IGNACIO DO 627.9 MENOPAUSAL AND POSTMENOPAUSAL DISORDER UNSPECIFIED 02/20/2012 TONE IGNACIO DO V76.10 Breast Cancer Screening 02/20/2012 TONE IGNACIO DO V76.47 Vaginal Pap Smear Screening 02/20/2012 KARMEN ESPINOSA APRN 627.9 MENOPAUSAL AND POSTMENOPAUSAL DISORDER UNSPECIFIED 02/20/2012 KARMEN ESPINOSA APRN V76.10 Breast Cancer Screening 02/20/2012 KARMEN ESPINOSA APRN V76.47 Vaginal Pap Smear Screening 02/20/2012 627.9 MENOPAUSAL AND POSTMENOPAUSAL DISORDER UNSPECIFIED 02/20/2012 V76.10 Breast Cancer Screening 02/20/2012 V76.47 Vaginal Pap Smear Screening 02/20/2012 627.9 MENOPAUSAL AND POSTMENOPAUSAL DISORDER UNSPECIFIED 02/20/2012 V76.10 Breast Cancer Screening 02/20/2012 V76.47 Vaginal Pap Smear Screening 02/20/2012 627.9 MENOPAUSAL AND POSTMENOPAUSAL DISORDER UNSPECIFIED 02/20/2012 V76.10 Breast Cancer Screening 02/20/2012 V76.47 Vaginal Pap Smear Screening 02/20/2012 627.9 MENOPAUSAL AND POSTMENOPAUSAL DISORDER UNSPECIFIED 02/20/2012 V76.10 Breast Cancer Screening 02/20/2012 V76.47 Vaginal Pap Smear Screening 02/20/2012 627.9 MENOPAUSAL AND POSTMENOPAUSAL DISORDER UNSPECIFIED 02/20/2012 V76.10 Breast Cancer Screening 02/20/2012 V76.47 Vaginal Pap Smear Screening 02/20/2012 627.9 MENOPAUSAL AND POSTMENOPAUSAL DISORDER UNSPECIFIED 02/20/2012 V76.10 Breast Cancer Screening 02/20/2012 V76.47 Vaginal Pap Smear Screening 02/20/2012 627.9 MENOPAUSAL AND POSTMENOPAUSAL DISORDER UNSPECIFIED 02/20/2012 V76.10 Breast Cancer Screening 02/20/2012 V76.47 Vaginal Pap Smear Screening 02/20/2012 KARMEN ESPINOSA APRN 627.9 MENOPAUSAL AND POSTMENOPAUSAL DISORDER UNSPECIFIED 02/20/2012 KARMEN ESPINOSA APRN V76.10 Breast Cancer Screening 02/20/2012 KARMEN ESPINOSA APRN V76.47 Vaginal Pap Smear Screening 02/20/2012 KARMEN ESPINOSA APRN 627.9 MENOPAUSAL AND POSTMENOPAUSAL DISORDER UNSPECIFIED 02/20/2012 KARMEN ESPINOSA APRN V76.10 Breast Cancer Screening 02/20/2012 KARMEN ESPINOSA APRN V76.47 Vaginal Pap Smear Screening 02/20/2012 MATEUS TONE POZO K 627.9 MENOPAUSAL AND POSTMENOPAUSAL DISORDER UNSPECIFIED 02/20/2012 MATEUS POZOANUELA K V76.10 Breast Cancer Screening 02/20/2012 MATEUS POZOTONE K V76.47 Vaginal Pap Smear Screening 02/20/2012 MATEUS POZOANUELA K 627.9 MENOPAUSAL AND POSTMENOPAUSAL DISORDER UNSPECIFIED 02/20/2012 IGNACIO TONE POZO K V76.10 Breast Cancer Screening 02/20/2012 MATEUS TONE POZO K V76.47 Vaginal Pap Smear Screening 02/20/2012 KARMEN ESPINOSA APRN 627.9 MENOPAUSAL AND POSTMENOPAUSAL DISORDER UNSPECIFIED 02/20/2012 KARMEN ESPINOSA APRN V76.10 Breast Cancer Screening 02/20/2012 KARMEN ESPINOSA APRN V76.47 Vaginal Pap Smear Screening 02/20/2012 KARMEN ESPINOSA APRN 627.9 MENOPAUSAL AND POSTMENOPAUSAL DISORDER UNSPECIFIED 02/20/2012 KARMEN ESPINOSA APRN V76.10 Breast Cancer Screening 02/20/2012 KARMEN ESPINOSA APRN V76.47 Vaginal Pap Smear Screening 02/20/2012 IGNACIO TONE POZO 627.9 MENOPAUSAL AND POSTMENOPAUSAL DISORDER UNSPECIFIED 02/20/2012 IGNACIO TONE POZO V76.10 Breast Cancer Screening 02/20/2012 IGNACIO TONE POZO V76.47 Vaginal Pap Smear Screening 02/20/2012 TAYLOR CARVAJAL MD 627.9 MENOPAUSAL AND POSTMENOPAUSAL DISORDER UNSPECIFIED 02/20/2012 TAYLOR CARVAJAL MD V76.10 Breast Cancer Screening 02/20/2012 TAYLOR CARVAJAL MD V76.47 Vaginal Pap Smear Screening 02/20/2012 TAYLOR CARVAJAL MD 627.9 MENOPAUSAL AND POSTMENOPAUSAL DISORDER UNSPECIFIED 02/20/2012 TAYLOR CARVAJAL MD V76.10 Breast Cancer Screening 02/20/2012 TAYLOR CARVAJAL MD V76.47 Vaginal Pap Smear Screening 02/20/2012 KARMEN ESPINOSA APRN 627.9 MENOPAUSAL AND POSTMENOPAUSAL DISORDER UNSPECIFIED 02/20/2012 KARMEN ESPINOSA APRN V76.10 Breast Cancer Screening 02/20/2012 KARMEN ESPINOSA APRN V76.47 Vaginal Pap Smear Screening 02/20/2012 KARMEN ESPINOSA APRN 627.9 MENOPAUSAL AND POSTMENOPAUSAL DISORDER UNSPECIFIED 02/20/2012 KARMEN ESPINOSA APRN V76.10 Breast Cancer Screening 02/20/2012 KARMEN ESPINOSA APRN V76.47 Vaginal Pap Smear Screening 02/20/2012 TAYLOR CARVAJAL MD 627.9 MENOPAUSAL AND POSTMENOPAUSAL DISORDER UNSPECIFIED 02/20/2012 TAYLOR CARVAJAL MD V76.10 Breast Cancer Screening 02/20/2012 TAYLOR CARVAJAL MD V76.47 Vaginal Pap Smear Screening 02/20/2012 HOWARD CHICKEN DRESSER, BILLY 627.9 MENOPAUSAL AND POSTMENOPAUSAL DISORDER UNSPECIFIED 02/20/2012 HOWARD CHICKEN DRESSER, BILLY V76.10 Breast Cancer Screening 02/20/2012 HOWARD CHICKEN DRESSER, BILLY V76.47 Vaginal Pap Smear Screening 02/20/2012 HOWARD CHICKEN DRESSER, BILLY 627.9 MENOPAUSAL AND POSTMENOPAUSAL DISORDER UNSPECIFIED 02/20/2012 HOWARD CHICKEN DRESSER, BILLY V76.10 Breast Cancer Screening 02/20/2012 HOWARD CHICKEN DRESSER, BILLY V76.47 Vaginal Pap Smear Screening 02/20/2012 TAYLOR CARVAJAL MD 62Ting.9 MENOPAUSAL AND POSTMENOPAUSAL DISORDER UNSPECIFIED 02/20/2012 TAYLOR CARVAJAL MD V76.10 Breast Cancer Screening 02/20/2012 TAYLOR CARVAJAL MD V76.47 Vaginal Pap Smear Screening 02/20/2012 HOWARD CHICKEN DRESSER, BILLY 627.9 MENOPAUSAL AND POSTMENOPAUSAL DISORDER UNSPECIFIED 02/20/2012 HOWARD CHICKEN DRESSER, BILLY V76.10 Breast Cancer Screening 02/20/2012 HOWARD CHICKEN DRESSER, BILLY V76.47 Vaginal Pap Smear Screening 02/20/2012 HOWARD CHICKEN DRESSER, BILLY 627.9 MENOPAUSAL AND POSTMENOPAUSAL DISORDER UNSPECIFIED 02/20/2012 HOWARD CHICKEN DRESSER, BILLY V76.10 Breast Cancer Screening 02/20/2012 HOWARD CHICKEN DRESSER, BILLY V76.47 Vaginal Pap Smear Screening 02/20/2012 TAYLOR CARVAJAL MD 627.9 MENOPAUSAL AND POSTMENOPAUSAL DISORDER UNSPECIFIED 02/20/2012 TAYLOR CRAVAJAL MD V76.10 Breast Cancer Screening 02/20/2012 TAYLOR CARVAJAL MD V76.47 Vaginal Pap Smear Screening 02/20/2012 JEMMA CHICKEN DRESSER, CRISTIANE A 627.9 MENOPAUSAL AND POSTMENOPAUSAL DISORDER UNSPECIFIED 02/20/2012 JEMMA CHICKEN DRESSER, CRISTIANE A V76.10 Breast Cancer Screening 02/20/2012 JEMMA CHICKEN DRESSER, CRISTIANE A V76.47 Vaginal Pap Smear Screening 02/20/2012 JEMMA RAMOSN, CRISTIANE A 627.9 MENOPAUSAL AND POSTMENOPAUSAL DISORDER UNSPECIFIED 02/20/2012 JEMMA CHICKEN DRESSER, CRISTIANE A V76.10 Breast Cancer Screening 02/20/2012 JEMMA CHICKEN DRESSER, CRISTIANE A V76.47 Vaginal Pap Smear Screening 02/20/2012 HOWARD CHICKEN DRESSER, BILLY 627.9 MENOPAUSAL AND POSTMENOPAUSAL DISORDER UNSPECIFIED 02/20/2012 HOWARD CHICKEN DRESSER, BILLY V76.10 Breast Cancer Screening 02/20/2012 HOWARD CHICKEN DRESSER, BILLY V76.47 Vaginal Pap Smear Screening 02/20/2012 GELY HOBBS APRNA S 627.9 MENOPAUSAL AND POSTMENOPAUSAL DISORDER UNSPECIFIED 02/20/2012 FABY CUNNINGHAM SERAFIN S V76.10 Breast Cancer Screening 02/20/2012 FABY CUNNINGHAM SERAFIN S V76.47 Vaginal Pap Smear Screening 02/20/2012 HOWARD CUNNINGHAM BILLY 627.9 MENOPAUSAL AND POSTMENOPAUSAL DISORDER UNSPECIFIED 02/20/2012 HOWARD CHICKEN DRESSER, BILLY V76.10 Breast Cancer Screening 02/20/2012 HOWARD CHICKEN DRESSER, BILLY V76.47 Vaginal Pap Smear Screening 02/20/2012 RADHA HOBBS APRNNDA S 627.9 MENOPAUSAL AND POSTMENOPAUSAL DISORDER UNSPECIFIED 02/20/2012 FABY CUNNINGHAM SERAFIN S V76.10 Breast Cancer Screening 02/20/2012 FABY CUNNINGHAM SERAFIN S V76.47 Vaginal Pap Smear Screening 02/20/2012 SACHA PITT APRN 627.9 MENOPAUSAL AND POSTMENOPAUSAL DISORDER UNSPECIFIED 02/20/2012 SACHA PITT APRN V76.10 Breast Cancer Screening 02/20/2012 SACHA PITT APRN V76.47 Vaginal Pap Smear Screening 02/20/2012 GELY HOBBS APRNA S 627.9 MENOPAUSAL AND POSTMENOPAUSAL DISORDER UNSPECIFIED 02/20/2012 GELY HOBBS APRNA S V76.10 Breast Cancer Screening 02/20/2012 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 APRN S V76.47 Vaginal Pap Smear Screening 02/20/2012 BILLY LAWRENCE APRN 627.9 MENOPAUSAL AND POSTMENOPAUSAL DISORDER UNSPECIFIED 02/20/2012 SLIME LAWRENCE APRNETTE V76.10 Breast Cancer Screening 02/20/2012 BILLY LAWRENCE APRN V76.47 Vaginal Pap Smear Screening 02/20/2012 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 APRN S 627.9 MENOPAUSAL AND POSTMENOPAUSAL DISORDER UNSPECIFIED 02/20/2012 GELY HOBBS APRNA S V76.10 Breast Cancer Screening 02/20/2012 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 APRN S V76.47 Vaginal Pap Smear Screening 03/11/2012 TONE IGNACIO DO 079.4 HPV 03/11/2012 TONE IGNACIO DO 795.01 ABNORMAL PAP - ASCUS 03/11/2012 TONE IGNACIO DO 079.4 HPV 03/11/2012 TONE IGNACIO DO 795.01 ABNORMAL PAP - ASCUS 03/11/2012 KARMEN ESPINOSA APRN 079.4 HPV 03/11/2012 KARMEN ESPINOSA APRN 795.01 ABNORMAL PAP - ASCUS 03/11/2012 TONE IGNACIO DO 079.4 HPV 03/11/2012 TONE IGNACIO DO 795.01 ABNORMAL PAP - ASCUS 03/11/2012 KARMEN ESPINOSA APRN 079.4 HPV 03/11/2012 KARMEN ESPINOSA APRN 795.01 ABNORMAL PAP - ASCUS 03/11/2012 079.4 HPV 03/11/2012 795.01 ABNORMAL PAP - ASCUS 03/11/2012 079.4 HPV 03/11/2012 795.01 ABNORMAL PAP - ASCUS 03/11/2012 079.4 HPV 03/11/2012 795.01 ABNORMAL PAP - ASCUS 03/11/2012 079.4 HPV 03/11/2012 795.01 ABNORMAL PAP - ASCUS 03/11/2012 079.4 HPV 03/11/2012 795.01 ABNORMAL PAP - ASCUS 03/11/2012 079.4 HPV 03/11/2012 795.01 ABNORMAL PAP - ASCUS 03/11/2012 079.4 HPV 03/11/2012 795.01 ABNORMAL PAP - ASCUS 03/11/2012 KARMEN ESPINOSA APRN 079.4 HPV 03/11/2012 KARMEN ESPINOSA APRN 795.01 ABNORMAL PAP - ASCUS 03/11/2012 KARMEN ESPINOSA APRN 079.4 HPV 03/11/2012 KARMEN ESPINOSA APRN 795.01 ABNORMAL PAP - ASCUS 03/11/2012 IGNACIO DO, TONE K 079.4 HPV 03/11/2012 IGNACIO DO, TONE K 795.01 ABNORMAL PAP - ASCUS 03/11/2012 IGNACIO DOANUELA K 079.4 HPV 03/11/2012 IGNACIO DO, TONE K 795.01 ABNORMAL PAP - ASCUS 03/11/2012 KARMEN ESPINOSA APRN 079.4 HPV 03/11/2012 KARMEN ESPINOSA APRN 795.01 ABNORMAL PAP - ASCUS 03/11/2012 KARMEN ESPINOSA APRN 079.4 HPV 03/11/2012 KARMEN ESPINOSA APRN 795.01 ABNORMAL PAP - ASCUS 03/11/2012 IGNACIO DO, TONE K 079.4 HPV 03/11/2012 IGNACIO DO, TONE K 795.01 ABNORMAL PAP - ASCUS 03/11/2012 TAYLOR CARVAJAL MD 079.4 HPV 03/11/2012 TAYLOR CARVAJAL MD 795.01 ABNORMAL PAP - ASCUS 03/11/2012 TAYLOR CARVAJAL MD 079.4 HPV 03/11/2012 TAYLOR CARVAJAL MD 795.01 ABNORMAL PAP - ASCUS 03/11/2012 KARMEN ESPINOSA APRN 079.4 HPV 03/11/2012 KARMEN ESPINOSA APRN 795.01 ABNORMAL PAP - ASCUS 03/11/2012 KARMEN ESPINOSA APRN 079.4 HPV 03/11/2012 KARMEN ESPINOSA APRN 795.01 ABNORMAL PAP - ASCUS 03/11/2012 TAYLOR CARVAJAL MD 079.4 HPV 03/11/2012 HUERTER MD, TAYLOR 795.01 ABNORMAL PAP - ASCUS 03/11/2012 HOWARD CHICKEN DRESSER, BILLY 079.4 HPV 03/11/2012 HOWARD CHICKEN DRESSER, BILLY 795.01 ABNORMAL PAP - ASCUS 03/11/2012 HOWARD CHICKEN DRESSER, BILLY 079.4 HPV 03/11/2012 HOWARD CHICKEN DRESSER, BILLY 795.01 ABNORMAL PAP - ASCUS 03/11/2012 TAYLOR CARVAJAL MD 079.4 HPV 03/11/2012 TAYLOR CARVAJAL MD 795.01 ABNORMAL PAP - ASCUS 03/11/2012 HOWARD CHICKEN DRESSER, BILLY 079.4 HPV 03/11/2012 HOWARD CHICKEN DRESSER, BILLY 795.01 ABNORMAL PAP - ASCUS 03/11/2012 HOWARD CHICKEN DRESSER, BILLY 079.4 HPV 03/11/2012 HOWARD CHICKEN DRESSER, BILLY 795.01 ABNORMAL PAP - ASCUS 03/11/2012 TAYLOR CARVAJAL MD 079.4 HPV 03/11/2012 TAYLOR CARVAJAL MD 795.01 ABNORMAL PAP - ASCUS 03/11/2012 JEMMA CHICKEN DRESSER, CRISTIANE A 079.4 HPV 03/11/2012 JEMMA CHICKEN DRESSER, CRISTIANE A 795.01 ABNORMAL PAP - ASCUS 03/11/2012 JEMMA CHICKEN DRESSER, CRISTIANE A 079.4 HPV 03/11/2012 JEMMA CHICKEN DRESSER, CRISTIANE A 795.01 ABNORMAL PAP - ASCUS 03/11/2012 HOWARD CHICKEN DRESSER, BILLY 079.4 HPV 03/11/2012 HOWARD CHICKEN DRESSER, BILLY 795.01 ABNORMAL PAP - ASCUS 03/11/2012 FABY CHICKEN DRESSER, SERAFIN S 079.4 HPV 03/11/2012 FABY CHICKEN DRESSER, SERAFIN S 795.01 ABNORMAL PAP - ASCUS 03/11/2012 HOWARD CHICKEN DRESSER, BILLY 079.4 HPV 03/11/2012 HOWARD CHICKEN DRESSER, BILLY 795.01 ABNORMAL PAP - ASCUS 03/11/2012 FABY CHICKEN DRESSER, SERAFIN S 079.4 HPV 03/11/2012 FABY CHICKEN DRESSER, SERAFIN S 795.01 ABNORMAL PAP - ASCUS 03/11/2012 SACHA PITT APRN 079.4 HPV 03/11/2012 SACHA PITT APRN D 795.01 ABNORMAL PAP - ASCUS 03/11/2012 GELY HOBBS APRNA S 079.4 HPV 03/11/2012 FABY CUNNINGHAM, SERAFIN S 795.01 ABNORMAL PAP - ASCUS 03/11/2012 HOWARD CUNNINGHAM BILLY 079.4 HPV 03/11/2012 HOWARD CUNNINGHAM, BILLY 795.01 ABNORMAL PAP - ASCUS 03/11/2012 FABY CUNNINGHAM SERAFIN S 079.4 HPV 03/11/2012 FABY CUNNINGHAM, SERAFIN S 795.01 ABNORMAL PAP - ASCUS 04/13/2012 Ot 682.1 CELLULITIS OF NECK 01/15/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/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/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/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/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/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/2013 KARMEN ESPINOSA APRN 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/2013 KARMEN ESPINOSA APRN 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/2013 TONE IGNACIO DO 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/2013 TONE IGNACIO DO 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/2013 KARMEN ESPINOSA APRN 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/2013 KARMEN ESPINOSA APRN 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/2013 TONE IGNACIO DO 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/2013 TAYLOR CARVAJAL MD 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/2013 TAYLOR CARVAJAL MD 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/2013 KARMEN ESPINOSA APRN 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/2013 KARMEN ESPINOSA APRN 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/2013 TAYLOR CARVAJAL MD 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/2013 BILLY LAWRENCE APRN 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/2013 HOWARD CUNNINGHAM BILLY 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/2013 TAYLOR CARVAJAL MD 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/2013 HOWARD CUNNINGHAM, BILLY 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/2013 HOWARD CUNNINGHAM BILLY 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/2013 TAYLOR CARVAJAL MD 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/2013 JEMMA CUNNINGHAM, CRISTIANE A 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/2013 JEMMA CUNNINGHAM, CRISTIANE A 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/2013 BILLY LAWRENCE APRN 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/2013 FABY CUNNINGHAM SERAFIN S 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/2013 HOWARD CUNNINGHAM BILLY 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/2013 FABY CUNNING[place]AM SERAFIN S 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/2013 SACHA PITT APRN 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/2013 FABY CUNNING[place]AM SERAFIN S 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/2013 BILLY LAWRENCE APRN 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/2013 FABY CUNNINGHAM SERAFIN S V62.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 02/19/2013 491.21 BRONCHITIS AECB 02/19/2013 491.21 BRONCHITIS AECB 02/19/2013 491.21 BRONCHITIS AECB 02/19/2013 KARMNE ESPINOSA APRN 491.21 BRONCHITIS AECB 02/19/2013 KARMEN ESPINOSA APRN 491.21 BRONCHITIS AECB 02/19/2013 TONE IGNACIO DO 491.21 BRONCHITIS AECB 02/19/2013 TONE IGNACIO DO 491.21 BRONCHITIS AECB 02/19/2013 KARMEN ESPINOSA APRN 491.21 BRONCHITIS AECB 02/19/2013 KARMEN ESPINOSA APRN 491.21 BRONCHITIS AECB 02/19/2013 TONE IGNACIO DO 491.21 BRONCHITIS AECB 02/19/2013 WEI LINDO, TAYLOR 491.21 BRONCHITIS AECB 02/19/2013 TAYLOR CARVAJAL MD 491.21 BRONCHITIS AECB 02/19/2013 KARMEN ESPINOSA APRN 491.21 BRONCHITIS AECB 02/19/2013 KARMEN ESPINOSA APRN 491.21 BRONCHITIS AECB 02/19/2013 TAYLOR CARVAJAL MD 491.21 BRONCHITIS AECB 02/19/2013 HOWARD CHICKEN DRESSER, BILLY 491.21 BRONCHITIS AECB 02/19/2013 HOWARD CHICKEN DRESSER, BILLY 491.21 BRONCHITIS AECB 02/19/2013 TAYLOR CARVAJAL MD 491.21 BRONCHITIS AECB 02/19/2013 HOWARD CHICKEN DRESSER, BILLY 491.21 BRONCHITIS AECB 02/19/2013 HOWARD CHICKEN DRESSER, BILLY 491.21 BRONCHITIS AECB 02/19/2013 TAYLOR CARVAJAL MD 491.21 BRONCHITIS AECB 02/19/2013 JEMMA APRN, CRISTIANE A 491.21 BRONCHITIS AECB 02/19/2013 JEMMATao CUNNINGHAM CRISTIANE A 491.21 BRONCHITIS AECB 02/19/2013 HOWARD CHICKEN DRESSER, BILLY 491.21 BRONCHITIS AECB 02/19/2013 GELY HOBBS APRNA S 491.21 BRONCHITIS AECB 02/19/2013 HOWARD CHICKEN DRESSER, BILLY 491.21 BRONCHITIS AECB 02/19/2013 FABY CUNNINGHAM SERAFIN S 491.21 BRONCHITIS AECB 02/19/2013 SACHA PITT APRN 491.21 BRONCHITIS AECB 02/19/2013 FABY CUNNINGHAM SERAFIN S 491.21 BRONCHITIS AECB 02/19/2013 HOWARD CHICKEN DRESSER, BILLY 491.21 BRONCHITIS AECB 02/19/2013 RADHA HOBBS APRNNDA S 491.21 BRONCHITIS AECB 03/24/2013 V65.49 OTHER SPECIFIED COUNSELING 03/24/2013 V73.81 HPV SCREENING 03/24/2013 V76.51 COLON CANCER SCREENING 03/24/2013 KARMEN ESPINOSA APRN V65.49 OTHER SPECIFIED COUNSELING 03/24/2013 KARMEN ESPINOSA APRN V73.81 HPV SCREENING 03/24/2013 KARMEN ESPINOSA APRN V76.51 COLON CANCER SCREENING 03/24/2013 KARMEN ESPINOSA APRN V65.49 OTHER SPECIFIED COUNSELING 03/24/2013 KARMEN ESPINOSA APRN V73.81 HPV SCREENING 03/24/2013 KARMEN ESPINOSA APRN V76.51 COLON CANCER SCREENING 03/24/2013 IGNACIO DO TONE K V65.49 OTHER SPECIFIED COUNSELING 03/24/2013 IGNACIO DO, TONE K V73.81 HPV SCREENING 03/24/2013 IGNACIO DO, TONE K V76.51 COLON CANCER SCREENING 03/24/2013 IGNACIO DO, TONE K V65.49 OTHER SPECIFIED COUNSELING 03/24/2013 IGNACIO DO, TONE K V73.81 HPV SCREENING 03/24/2013 IGNACIO DO, TONE K V76.51 COLON CANCER SCREENING 03/24/2013 KARMEN ESPINOSA APRN V65.49 OTHER SPECIFIED COUNSELING 03/24/2013 KARMEN ESPINOSA APRN V73.81 HPV SCREENING 03/24/2013 KARMEN ESPINOSA APRN V76.51 COLON CANCER SCREENING 03/24/2013 KARMEN ESPINOSA APRN V65.49 OTHER SPECIFIED COUNSELING 03/24/2013 KARMEN ESPINOSA APRN V73.81 HPV SCREENING 03/24/2013 KARMEN ESPINOSA APRN V76.51 COLON CANCER SCREENING 03/24/2013 IGNACIO DO, TONE K V65.49 OTHER SPECIFIED COUNSELING 03/24/2013 IGNACIO DOANUELA K V73.81 HPV SCREENING 03/24/2013 IGNACIO DO, TONE K V76.51 COLON CANCER SCREENING 03/24/2013 TAYLOR CARVAJAL MD V65.49 OTHER SPECIFIED COUNSELING 03/24/2013 TAYLOR CARVAJAL MD V73.81 HPV SCREENING 03/24/2013 TAYLOR CARVAJAL MD V76.51 COLON CANCER SCREENING 03/24/2013 TAYLOR CARVAJAL MD V65.49 OTHER SPECIFIED COUNSELING 03/24/2013 TAYLOR CARVAJAL MD V73.81 HPV SCREENING 03/24/2013 TAYLOR CARVAJAL MD V76.51 COLON CANCER SCREENING 03/24/2013 KARMEN ESPINOSA APRN V65.49 OTHER SPECIFIED COUNSELING 03/24/2013 KARMEN ESPINOSA APRN V73.81 HPV SCREENING 03/24/2013 GLENNKARMEN MUÑOZ APRN V76.51 COLON CANCER SCREENING 03/24/2013 GLENNKARMEN MUÑOZ APRN V65.49 OTHER SPECIFIED COUNSELING 03/24/2013 GLENNKARMEN MUÑOZ APRN V73.81 HPV SCREENING 03/24/2013 GLENNKARMEN MUÑOZ APRN V76.51 COLON CANCER SCREENING 03/24/2013 TAYLOR CARVAJAL MD V65.49 OTHER SPECIFIED COUNSELING 03/24/2013 TAYLOR CARVAJAL MD V73.81 HPV SCREENING 03/24/2013 TAYLOR CARVAJAL MD V76.51 COLON CANCER SCREENING 03/24/2013 HOWARD CHICKEN DRESSER, BILLY V65.49 OTHER SPECIFIED COUNSELING 03/24/2013 HOWARD CHICKEN DRESSER, BILLY V73.81 HPV SCREENING 03/24/2013 HOWARD CHICKEN DRESSER, BILLY V76.51 COLON CANCER SCREENING 03/24/2013 HOWARD CHICKEN DRESSER, BILLY V65.49 OTHER SPECIFIED COUNSELING 03/24/2013 HOWARD CHICKEN DRESSER, BILLY V73.81 HPV SCREENING 03/24/2013 HOWARD CHICKEN DRESSER, BILLY V76.51 COLON CANCER SCREENING 03/24/2013 TAYLOR CARVAJAL MD V65.49 OTHER SPECIFIED COUNSELING 03/24/2013 TAYLOR CARVAJAL MD V73.81 HPV SCREENING 03/24/2013 TAYLOR CARVAJAL MD V76.51 COLON CANCER SCREENING 03/24/2013 HOWARD CHICKEN DRESSER, BILLY V65.49 OTHER SPECIFIED COUNSELING 03/24/2013 HOWARD CHICKEN DRESSER, BILLY V73.81 HPV SCREENING 03/24/2013 HOWARD CHICKEN DRESSER, BILLY V76.51 COLON CANCER SCREENING 03/24/2013 HOWARD CHICKEN DRESSER, BILLY V65.49 OTHER SPECIFIED COUNSELING 03/24/2013 HOWARD CHICKEN DRESSER, BILLY V73.81 HPV SCREENING 03/24/2013 HOWARD CHICKEN DRESSER, BILLY V76.51 COLON CANCER SCREENING 03/24/2013 TAYLOR CARVAJAL MD V65.49 OTHER SPECIFIED COUNSELING 03/24/2013 TAYLOR CARVAJAL MD V73.81 HPV SCREENING 03/24/2013 TAYLOR CARVAJAL MD V76.51 COLON CANCER SCREENING 03/24/2013 JEMMA RAMOSN, CRISTIANE A V65.49 OTHER SPECIFIED COUNSELING 03/24/2013 JEMMA CHICKEN DRESSER, CRISTIANE A V73.81 HPV SCREENING 03/24/2013 JEMMA RAMOSN, CRISTIAEN A V76.51 COLON CANCER SCREENING 03/24/2013 JEMMA RAMOSN, CRISTIANE A V65.49 OTHER SPECIFIED COUNSELING 03/24/2013 JEMMA CHICKEN DRESSER, CRISTIANE A V73.81 HPV SCREENING 03/24/2013 JEMMA RAMOSN, CRISTIANE A V76.51 COLON CANCER SCREENING 03/24/2013 HOWARD CHICKEN DRESSER, BILLY V65.49 OTHER SPECIFIED COUNSELING 03/24/2013 HOWARD CHICKEN DRESSER, BILLY V73.81 HPV SCREENING 03/24/2013 HOWARD CHICKEN DRESSER, BILLY V76.51 COLON CANCER SCREENING 03/24/2013 FABY CUNNINGHAM SERAFIN S V65.49 OTHER SPECIFIED COUNSELING 03/24/2013 FABY C[place] SERAFIN S V73.81 HPV SCREENING 03/24/2013 FABY [place] SERAFIN S V76.51 COLON CANCER SCREENING 03/24/2013 HOWARD CHICKEN DRESSER, BILLY V65.49 OTHER SPECIFIED COUNSELING 03/24/2013 HOWARD CHICKEN DRESSER, BILLY V73.81 HPV SCREENING 03/24/2013 HOWARD CHICKEN DRESSER, BILLY V76.51 COLON CANCER SCREENING 03/24/2013 FABY [place] SERAFIN S V65.49 OTHER SPECIFIED COUNSELING 03/24/2013 FABY [place] SERAFIN S V73.81 HPV SCREENING 03/24/2013 FABY [place] SERAFIN S V76.51 COLON CANCER SCREENING 03/24/2013 SACHA PITT APRN V65.49 OTHER SPECIFIED COUNSELING 03/24/2013 SACHA PITT APRN V73.81 HPV SCREENING 03/24/2013 SACHA PITT APRN V76.51 COLON CANCER SCREENING 03/24/2013 FABY [place] SERAFIN S V65.49 OTHER SPECIFIED COUNSELING 03/24/2013 FABY [place], SERAFIN S V73.81 HPV SCREENING 03/24/2013 FABY [place] SERAFIN S V76.51 COLON CANCER SCREENING 03/24/2013 HOWARD CHICKEN DRESSER, BILLY V65.49 OTHER SPECIFIED COUNSELING 03/24/2013 HOWARD OCTAVIO BILLY V73.81 HPV SCREENING 03/24/2013 HOWARD BILLY [place] V76.51 COLON CANCER SCREENING 03/24/2013 RADHA HOBBS APRNNDA S V65.49 OTHER SPECIFIED COUNSELING 03/24/2013 FABY RAMOSNRADHASERAFIN S V73.81 HPV SCREENING 03/24/2013 FABY RAMOSNRADHASERAFIN S V76.51 COLON CANCER SCREENING 04/08/2013 719.43 PAIN IN JOINT INVOLVING FOREARM 04/08/2013 782.0 DISTURBANCE OF SKIN SENSATION 04/08/2013 KARMEN ESPINOSA APRN 719.43 PAIN IN JOINT INVOLVING FOREARM 04/08/2013 KARMEN ESPINOSA APRN 782.0 DISTURBANCE OF SKIN SENSATION 04/08/2013 KARMEN ESPINOSA APRN 719.43 PAIN IN JOINT INVOLVING FOREARM 04/08/2013 KARMEN ESPINOSA APRN 782.0 DISTURBANCE OF SKIN SENSATION 04/08/2013 TONE IGNACIO DO 719.43 PAIN IN JOINT INVOLVING FOREARM 04/08/2013 ANUEL IGNACIO DOA David 782.0 DISTURBANCE OF SKIN SENSATION 04/08/2013 TONE IGNACIO DO 719.43 PAIN IN JOINT INVOLVING FOREARM 04/08/2013 TONE IGNACIO DO K 782.0 DISTURBANCE OF SKIN SENSATION 04/08/2013 KARMEN ESPINOSA APRN 719.43 PAIN IN JOINT INVOLVING FOREARM 04/08/2013 KARMEN ESPINOSA APRN 782.0 DISTURBANCE OF SKIN SENSATION 04/08/2013 KARMEN ESPINOSA APRN 719.43 PAIN IN JOINT INVOLVING FOREARM 04/08/2013 KARMEN ESPINOSA APRN 782.0 DISTURBANCE OF SKIN SENSATION 04/08/2013 TONE IGNACIO DO 719.43 PAIN IN JOINT INVOLVING FOREARM 04/08/2013 TONE IGNCAIO DO K 782.0 DISTURBANCE OF SKIN SENSATION 04/08/2013 TAYLOR CARVAJAL MD 719.43 PAIN IN JOINT INVOLVING FOREARM 04/08/2013 TAYLOR CARVAJAL MD 782.0 DISTURBANCE OF SKIN SENSATION 04/08/2013 TAYLOR CARVAJAL MD 719.43 PAIN IN JOINT INVOLVING FOREARM 04/08/2013 TAYLOR CARVAJAL MD 782.0 DISTURBANCE OF SKIN SENSATION 04/08/2013 KARMEN ESPINOSA APRN 719.43 PAIN IN JOINT INVOLVING FOREARM 04/08/2013 KARMEN ESPINOSA APRN 782.0 DISTURBANCE OF SKIN SENSATION 04/08/2013 KARMEN ESPINOSA APRN 719.43 PAIN IN JOINT INVOLVING FOREARM 04/08/2013 KARMEN ESPINOSA APRN 782.0 DISTURBANCE OF SKIN SENSATION 04/08/2013 TAYLOR CARVAJAL MD 719.43 PAIN IN JOINT INVOLVING FOREARM 04/08/2013 TAYLOR CARVAJAL MD 782.0 DISTURBANCE OF SKIN SENSATION 04/08/2013 HOWARD CHICKEN DRESSER, BILLY 719.43 PAIN IN JOINT INVOLVING FOREARM 04/08/2013 HOWARD CHICKEN DRESSER, BILLY 782.0 DISTURBANCE OF SKIN SENSATION 04/08/2013 HOWARD CHICKEN DRESSER, BILLY 719.43 PAIN IN JOINT INVOLVING FOREARM 04/08/2013 HOWARD CHICKEN DRESSER, BILLY 782.0 DISTURBANCE OF SKIN SENSATION 04/08/2013 TAYLOR CARVAJAL MD 719.43 PAIN IN JOINT INVOLVING FOREARM 04/08/2013 TAYLOR CARVAJAL MD 782.0 DISTURBANCE OF SKIN SENSATION 04/08/2013 HOWARD CHICKEN DRESSER, BILLY 719.43 PAIN IN JOINT INVOLVING FOREARM 04/08/2013 HOWARD CHICKEN DRESSER, BILLY 782.0 DISTURBANCE OF SKIN SENSATION 04/08/2013 HOWARD CHICKEN DRESSER, BILLY 719.43 PAIN IN JOINT INVOLVING FOREARM 04/08/2013 HOWARD CHICKEN DRESSER, BILLY 782.0 DISTURBANCE OF SKIN SENSATION 04/08/2013 TAYLOR CARVAJAL MD 719.43 PAIN IN JOINT INVOLVING FOREARM 04/08/2013 TAYLOR CARVAJAL MD 782.0 DISTURBANCE OF SKIN SENSATION 04/08/2013 JEMMA CRISTIANE CUNNINGHAM A 719.43 PAIN IN JOINT INVOLVING FOREARM 04/08/2013 JEMMA CRISTIANE CUNNING[place]AM A 782.0 DISTURBANCE OF SKIN SENSATION 04/08/2013 JEMMA OCTAVIO CRISTIANE A 719.43 PAIN IN JOINT INVOLVING FOREARM 04/08/2013 JEMMA OCTAVIO CRISTIANE A 782.0 DISTURBANCE OF SKIN SENSATION 04/08/2013 HOWARD CHICKEN DRESSER, BILLY 719.43 PAIN IN JOINT INVOLVING FOREARM 04/08/2013 HOWARD CHICKEN DRESSER, BILLY 782.0 DISTURBANCE OF SKIN SENSATION 04/08/2013 FABY CHICKEN DRESSER, SERAFIN S 719.43 PAIN IN JOINT INVOLVING FOREARM 04/08/2013 FABY CHICKEN DRESSER, SERAFIN S 782.0 DISTURBANCE OF SKIN SENSATION 04/08/2013 HOWARD CHICKEN DRESSER, BILLY 719.43 PAIN IN JOINT INVOLVING FOREARM 04/08/2013 HOWARD CHICKEN DRESSER, BILLY 782.0 DISTURBANCE OF SKIN SENSATION 04/08/2013 FABY CHICKEN DRESSER, SERAFIN S 719.43 PAIN IN JOINT INVOLVING FOREARM 04/08/2013 FABY CHICKEN DRESSER, SERAFIN S 782.0 DISTURBANCE OF SKIN SENSATION 04/08/2013 SACHA PITT APRN 719.43 PAIN IN JOINT INVOLVING FOREARM 04/08/2013 SACHA PITT APRN 782.0 DISTURBANCE OF SKIN SENSATION 04/08/2013 FABY CHICKEN DRESSER, SERAFIN S 719.43 PAIN IN JOINT INVOLVING FOREARM 04/08/2013 FABY CHICKEN DRESSER, SERAFIN S 782.0 DISTURBANCE OF SKIN SENSATION 04/08/2013 HOWARD CHICKEN DRESSER, BILLY 719.43 PAIN IN JOINT INVOLVING FOREARM 04/08/2013 HOWARD CHICKEN DRESSER, IBLLY 782.0 DISTURBANCE OF SKIN SENSATION 04/08/2013 FABY CHICKEN DRESSER, SERAFIN S 719.43 PAIN IN JOINT INVOLVING FOREARM 04/08/2013 FABY CHICKEN DRESSER, SERAFIN S 782.0 DISTURBANCE OF SKIN SENSATION 06/22/2013 TONE IGNACIO DO 920 CONTUSION OF FACE SCALP AND NECK EXCEPT EYE(S) 06/22/2013 KARMEN ESPINOSA APRN 920 CONTUSION OF FACE SCALP AND NECK EXCEPT EYE(S) 06/22/2013 KARMEN ESPINOSA APRN 920 CONTUSION OF FACE SCALP AND NECK EXCEPT EYE(S) 06/22/2013 TONE IGNACIO DO 920 CONTUSION OF FACE SCALP AND NECK EXCEPT EYE(S) 06/22/2013 TAYLOR CARVAJAL MD 920 CONTUSION OF FACE SCALP AND NECK EXCEPT EYE(S) 06/22/2013 TAYLOR CARVAJAL MD 920 CONTUSION OF FACE SCALP AND NECK EXCEPT EYE(S) 06/22/2013 KARMEN ESPINOSA APRN 920 CONTUSION OF FACE SCALP AND NECK EXCEPT EYE(S) 06/22/2013 KARMEN ESPINOSA APRN 920 CONTUSION OF FACE SCALP AND NECK EXCEPT EYE(S) 06/22/2013 TAYLOR CARVAJAL MD 920 CONTUSION OF FACE SCALP AND NECK EXCEPT EYE(S) 06/22/2013 HOWARD CHICKEN DRESSER, BILLY 920 CONTUSION OF FACE SCALP AND NECK EXCEPT EYE(S) 06/22/2013 HOWARD CHICKEN DRESSER, BILLY 920 CONTUSION OF FACE SCALP AND NECK EXCEPT EYE(S) 06/22/2013 TAYLOR CARVAJLA MD 920 CONTUSION OF FACE SCALP AND NECK EXCEPT EYE(S) 06/22/2013 HOWARD CHICKEN DRESSER, BILLY 920 CONTUSION OF FACE SCALP AND NECK EXCEPT EYE(S) 06/22/2013 HOWARD CHICKEN DRESSER, BILLY 920 CONTUSION OF FACE SCALP AND NECK EXCEPT EYE(S) 06/22/2013 TAYLOR CARVAJAL MD 920 CONTUSION OF FACE SCALP AND NECK EXCEPT EYE(S) 06/22/2013 JEMMA OCTAVIO, CRISTIANE A 920 CONTUSION OF FACE SCALP AND NECK EXCEPT EYE(S) 06/22/2013 JEMMA CHICKEN DRESSER, CRISTIANE A 920 CONTUSION OF FACE SCALP AND NECK EXCEPT EYE(S) 06/22/2013 HOWARD CHICKEN DRESSER, BILLY 920 CONTUSION OF FACE SCALP AND NECK EXCEPT EYE(S) 06/22/2013 RADHA HOBBS APRNNDA S 920 CONTUSION OF FACE SCALP AND NECK EXCEPT EYE(S) 06/22/2013 HOWARD CUNNINGHAM BILLY 920 CONTUSION OF FACE SCALP AND NECK EXCEPT EYE(S) 06/22/2013 RADHA HOBBS APRNNDA S 920 CONTUSION OF FACE SCALP AND NECK EXCEPT EYE(S) 06/22/2013 SACHA PITT APRN 920 CONTUSION OF FACE SCALP AND NECK EXCEPT EYE(S) 06/22/2013 RADHA HOBBS APRNNDA S 920 CONTUSION OF FACE SCALP AND NECK EXCEPT EYE(S) 06/22/2013 HOWARDBISI CUNNINGHAM, BILLY 920 CONTUSION OF FACE SCALP AND NECK EXCEPT EYE(S) 06/22/2013 RADHA HOBBS APRNNDA S 920 CONTUSION OF FACE SCALP AND NECK EXCEPT EYE(S) 10/09/2013 TAYLOR CARVAJAL MD 790.6 OTHER ABNORMAL BLOOD CHEMISTRY 10/09/2013 TAYLOR CARVAJAL MD 790.6 OTHER ABNORMAL BLOOD CHEMISTRY 10/09/2013 KARMEN ESPINOSA APRN 790.6 OTHER ABNORMAL BLOOD CHEMISTRY 10/09/2013 KARMEN ESPINOSA APRN 790.6 OTHER ABNORMAL BLOOD CHEMISTRY 10/09/2013 TAYLOR CARVAJAL MD 790.6 OTHER ABNORMAL BLOOD CHEMISTRY 10/09/2013 HOWARD CHICKEN DRESSER, BILLY 790.6 OTHER ABNORMAL BLOOD CHEMISTRY 10/09/2013 HOWARD CUNNINGHAM BILLY 790.6 OTHER ABNORMAL BLOOD CHEMISTRY 10/09/2013 TAYLOR CARVAJAL MD 790.6 OTHER ABNORMAL BLOOD CHEMISTRY 10/09/2013 HOWARD CHICKEN DRESSER, BILLY 790.6 OTHER ABNORMAL BLOOD CHEMISTRY 10/09/2013 HOWARD CHICKEN DRESSER, BILLY 790.6 OTHER ABNORMAL BLOOD CHEMISTRY 10/09/2013 TAYLOR CARVAJAL MD 790.6 OTHER ABNORMAL BLOOD CHEMISTRY 10/09/2013 JEMMA CHICKEN DRESSER, CRISTIANE A 790.6 OTHER ABNORMAL BLOOD CHEMISTRY 10/09/2013 JEMMA CHICKEN DRESSER, CRISTIANE A 790.6 OTHER ABNORMAL BLOOD CHEMISTRY 10/09/2013 HOWARD CUNNINGHAM BILLY 790.6 OTHER ABNORMAL BLOOD CHEMISTRY 10/09/2013 FABY CUNNINGHAM, SERAFIN S 790.6 OTHER ABNORMAL BLOOD CHEMISTRY 10/09/2013 HOWARD CHICKEN DRESSER, BILLY 790.6 OTHER ABNORMAL BLOOD CHEMISTRY 10/09/2013 FABY CUNNINGHAM SERAFIN S 790.6 OTHER ABNORMAL BLOOD CHEMISTRY 10/09/2013 SACHA PITT APRN 790.6 OTHER ABNORMAL BLOOD CHEMISTRY 10/09/2013 FABY CUNNINGHAM, SERAFIN S 790.6 OTHER ABNORMAL BLOOD CHEMISTRY 10/09/2013 HOWARD CHICKEN DRESSER, BILLY 790.6 OTHER ABNORMAL BLOOD CHEMISTRY 10/09/2013 FABY CUNNINGHAM SERAFIN S 790.6 OTHER ABNORMAL BLOOD CHEMISTRY 02/16/2014 HOWARD CUNNINGHAM BILLY 296.32 MO DEPRESSIVE RECURRENT MODERATE 02/16/2014 HOWARD CUNNING[place]AM BILLY 296.32 MO DEPRESSIVE RECURRENT MODERATE 02/16/2014 TAYLOR CARVAJAL MD 296.32 MO DEPRESSIVE RECURRENT MODERATE 02/16/2014 HOWARD CHICKEN DRESSER, BILLY 296.32 MO DEPRESSIVE RECURRENT MODERATE 02/16/2014 HOWARD CHICKEN DRESSER, BILLY 296.32 MO DEPRESSIVE RECURRENT MODERATE 02/16/2014 TAYLOR CARVAJAL MD 296.32 MO DEPRESSIVE RECURRENT MODERATE 02/16/2014 JEMMA CHICKEN DRESSER, CRISTIANE A 296.32 MO DEPRESSIVE RECURRENT MODERATE 02/16/2014 JEMMA CHICKEN DRESSER, CRISTIANE A 296.32 MO DEPRESSIVE RECURRENT MODERATE 02/16/2014 HOWARD CHICKEN DRESSER, BILLY 296.32 MO DEPRESSIVE RECURRENT MODERATE 02/16/2014 FABY CHICKEN DRESSER, SERAFIN S 296.32 MO DEPRESSIVE RECURRENT MODERATE 02/16/2014 HOWARD CHICKEN DRESSER, BILLY 296.32 MO DEPRESSIVE RECURRENT MODERATE 02/16/2014 FABY CHICKEN DRESSER SERAFIN S 296.32 MO DEPRESSIVE RECURRENT MODERATE 02/16/2014 SACHA PITT APRN 296.32 MO DEPRESSIVE RECURRENT MODERATE 02/16/2014 FABY CHICKEN DRESSER SERAFIN S 296.32 MO DEPRESSIVE RECURRENT MODERATE 02/16/2014 HOWARD CHICKEN DRESSER, BILLY 296.32 MO DEPRESSIVE RECURRENT MODERATE 02/16/2014 FABY CHICKEN DRESSER, SERAFIN S 296.32 MO DEPRESSIVE RECURRENT MODERATE 06/21/2014 TAYLOR CARVAJAL MD 477.9 ALLERGIC RHINITIS CAUSE UNSPECIFIED 06/21/2014 TAYLOR CARVAJAL MD V04.81 FLU SHOT 06/21/2014 JEMMA CHICKEN DRESSER, CRISTIANE A 477.9 ALLERGIC RHINITIS CAUSE UNSPECIFIED 06/21/2014 JEMMA CHICKEN DRESSER, CRISTIANE A V04.81 FLU SHOT 06/21/2014 JEMMA CHICKEN DRESSER, CRISTIANE A 477.9 ALLERGIC RHINITIS CAUSE UNSPECIFIED 06/21/2014 JEMMA CHICKEN DRESSER, CRISTIANE A V04.81 FLU SHOT 06/21/2014 HOWARD CHICKEN DRESSER, BILLY 477.9 ALLERGIC RHINITIS CAUSE UNSPECIFIED 06/21/2014 HOWARD CHICKEN DRESSER, BILLY V04.81 FLU SHOT 06/21/2014 FABY CHICKEN DRESSER, SERAFIN S 477.9 ALLERGIC RHINITIS CAUSE UNSPECIFIED 06/21/2014 FABY CHICKEN DRESSER, SERAFIN S V04.81 FLU SHOT 06/21/2014 HOWARD CHICKEN DRESSER, BILLY 477.9 ALLERGIC RHINITIS CAUSE UNSPECIFIED 06/21/2014 HOWARD CHICKEN DRESSER, BILLY V04.81 FLU SHOT 06/21/2014 FABY CHICKEN DRESSER, SERAFIN S 477.9 ALLERGIC RHINITIS CAUSE UNSPECIFIED 06/21/2014 FABY CHICKEN DRESSER, SERAFIN S V04.81 FLU SHOT 06/21/2014 PITT CHICKEN DRESSERSACHA D 477.9 ALLERGIC RHINITIS CAUSE UNSPECIFIED 06/21/2014 PITT CHICKEN DRESSERSACHA D V04.81 FLU SHOT 06/21/2014 FABY CHICKEN DRESSER, SERAFIN S 477.9 ALLERGIC RHINITIS CAUSE UNSPECIFIED 06/21/2014 FABY CHICKEN DRESSER, SERAFIN S V04.81 FLU SHOT 06/21/2014 HOWARD CHICKEN DRESSER, BILLY 477.9 ALLERGIC RHINITIS CAUSE UNSPECIFIED 06/21/2014 HOWARD CHICKEN DRESSER, BILLY V04.81 FLU SHOT 06/21/2014 FABY CHICKEN DRESSER, SERAFIN S 477.9 ALLERGIC RHINITIS CAUSE UNSPECIFIED 06/21/2014 FABY CHICKEN DRESSER, SERAFIN S V04.81 FLU SHOT 08/05/2014 JEMMA CHICKEN DRESSER, CRISTIANE A V65.42 COUNSELING - SMOKING CESSATION 08/05/2014 JEMMA CHICKEN DRESSER, CRISTIANE A V72.31 CONVERTIBLE TOP INSTALLER EXAM, ROUTINE 08/05/2014 JEMMA CHICKEN DRESSER, CRISTIANE A V76.10 BREAST CANCER SCREENING 08/05/2014 JEMMA CHICKEN DRESSER, CRISTIANE A V76.51 COLON CANCER SCREENING 08/05/2014 JEMMA CHICKEN DRESSER, CRISTIANE A V65.42 COUNSELING - SMOKING CESSATION 08/05/2014 JEMMA CHICKEN DRESSER, CRISTIANE A V72.31 CONVERTIBLE TOP INSTALLER EXAM, ROUTINE 08/05/2014 JEMMA CHICKEN DRESSER, CRISTIANE A V76.10 BREAST CANCER SCREENING 08/05/2014 JEMMA CHICKEN DRESSER, CRISTIANE A V76.51 COLON CANCER SCREENING 08/05/2014 HOWARD CHICKEN DRESSER, BILLY V65.42 COUNSELING - SMOKING CESSATION 08/05/2014 HOWARD CHICKEN DRESSER, BILLY V72.31 CONVERTIBLE TOP INSTALLER EXAM, ROUTINE 08/05/2014 HOWARD CHICKEN DRESSER, BILLY V76.10 BREAST CANCER SCREENING 08/05/2014 HOWARD CHICKEN DRESSER, BILLY V76.51 COLON CANCER SCREENING 08/05/2014 FABY CHICKEN DRESSER SERAFIN S V65.42 COUNSELING - SMOKING CESSATION 08/05/2014 FABY CUNNINGHAM, SERAFIN S V72.31 CONVERTIBLE TOP INSTALLER EXAM, ROUTINE 08/05/2014 FABY CUNNING[place]AM, SERAFIN S V76.10 BREAST CANCER SCREENING 08/05/2014 FABY CHICKEN DRESSER, SERAFIN S V76.51 COLON CANCER SCREENING 08/05/2014 HOWARD CHICKEN DRESSER, BILLY V65.42 COUNSELING - SMOKING CESSATION 08/05/2014 HOWARD CHICKEN DRESSER, BILLY V72.31 CONVERTIBLE TOP INSTALLER EXAM, ROUTINE 08/05/2014 HOWARD CHICKEN DRESSER, BILLY V76.10 BREAST CANCER SCREENING 08/05/2014 HOWARD CHICKEN DRESSER, BILLY V76.51 COLON CANCER SCREENING 08/05/2014 FBAY CUNNINGHAM SERAFIN S V65.42 COUNSELING - SMOKING CESSATION 08/05/2014 FABY CHICKEN DRESSER, SERAFIN S V72.31 CONVERTIBLE TOP INSTALLER EXAM, ROUTINE 08/05/2014 FABY CHICKEN DRESSER, SERAFNI S V76.10 BREAST CANCER SCREENING 08/05/2014 FABY CUNNINGHAM, SERAFIN S V76.51 COLON CANCER SCREENING 08/05/2014 SACHA PITT APRN V65.42 COUNSELING - SMOKING CESSATION 08/05/2014 SACHA PITT APRN V72.31 CONVERTIBLE TOP INSTALLER EXAM, ROUTINE 08/05/2014 SACHA PITT APRN V76.10 BREAST CANCER SCREENING 08/05/2014 SACHA PITT APRN V76.51 COLON CANCER SCREENING 08/05/2014 FABY CUNNINGHAM, SERAFIN S V65.42 COUNSELING - SMOKING CESSATION 08/05/2014 FABY CUNNINGHAM SERAFIN S V72.31 CONVERTIBLE TOP INSTALLER EXAM, ROUTINE 08/05/2014 FABY CHICKEN DRESSER, SERAFIN S V76.10 BREAST CANCER SCREENING 08/05/2014 FABY CHICKEN DRESSER, SERAFIN S V76.51 COLON CANCER SCREENING 08/05/2014 HOWARD CHICKEN DRESSER, BILLY V65.42 COUNSELING - SMOKING CESSATION 08/05/2014 HOWARD CHICKEN DRESSER, BILLY V72.31 CONVERTIBLE TOP INSTALLER EXAM, ROUTINE 08/05/2014 HOWARD CHICKEN DRESSER, BILLY V76.10 BREAST CANCER SCREENING 08/05/2014 HOWARD CHICKEN DRESSER, BILLY V76.51 COLON CANCER SCREENING 08/05/2014 FABY CUNNING[place]AM SERAFIN S V65.42 COUNSELING - SMOKING CESSATION 08/05/2014 RADHA HOBBS APRNNDA S V72.31 CONVERTIBLE TOP INSTALLER EXAM, ROUTINE 08/05/2014 RADHA HOBBS APRNNDA S V76.10 BREAST CANCER SCREENING 08/05/2014 RADHA HOBBS APRNNDA S V76.51 COLON CANCER SCREENING 08/11/2014 JEMMA CUNNINGHAM, CRISTIANE A 792.1 HEMOCCULT POSITIVE STOOL 08/11/2014 HOWARD CHICKEN DRESSER, BILLY 792.1 HEMOCCULT POSITIVE STOOL 08/11/2014 RADHA HOBBS APRNNDA S 792.1 HEMOCCULT POSITIVE STOOL 08/11/2014 HOWARD CHICKEN DRESSER, BILLY 792.1 HEMOCCULT POSITIVE STOOL 08/11/2014 RADHA HOBBS APRNNDA S 792.1 HEMOCCULT POSITIVE STOOL 08/11/2014 SACHA PITT APRN 792.1 HEMOCCULT POSITIVE STOOL 08/11/2014 RADHA HOBBS APRNNDA S 792.1 HEMOCCULT POSITIVE STOOL 08/11/2014 HOWARD CHICKEN DRESSER, BILLY 792.1 HEMOCCULT POSITIVE STOOL 08/11/2014 RADHA HOBBS APRNNDA S 792.1 HEMOCCULT POSITIVE STOOL 08/16/2014 CRISTIANE EASTON A CHICKEN DRESSER Ot V76.12 08/17/2014 HOWARD CHICKEN DRESSER, BILLY 314.00 ADHD INATTENTIVE 08/17/2014 RADHA HOBBS APRNNDA S 314.00 ADHD INATTENTIVE 08/17/2014 HOWARD CHICKEN DRESSER, BILLY 314.00 ADHD INATTENTIVE 08/17/2014 RADHA HOBBS APRNNDA S 314.00 ADHD INATTENTIVE 08/17/2014 SACHA PITT APRN 314.00 ADHD INATTENTIVE 08/17/2014 RADHA HOBBS APRNNDA S 314.00 ADHD INATTENTIVE 08/17/2014 HOWARD CHICKEN DRESSER, BILLY 314.00 ADHD INATTENTIVE 08/17/2014 FABY CUNNINGHAM SERAFIN S 314.00 ADHD INATTENTIVE 08/19/2014 RADHA HOBBS APRNNDA S 681.02 ONYCHIA AND PARONYCHIA OF FINGER 08/19/2014 FABY CHICKEN DRESSER, SERAFIN S 719.47 PAIN- ANKLE 08/19/2014 FABY CUNNINGHAM, SERAFIN S 724.2 LUMBAGO/ LOW BACK PAIN 08/19/2014 RADHA HOBBS APRNNDA S 729.5 PAIN- FINGERS 08/19/2014 FABY CUNNINGHAM, SERAFIN S 790.6 ABNORMAL LFT (LIVER FUNCTION TEST) 08/19/2014 HOWARD CHICKEN DRESSER, BILLY 681.02 ONYCHIA AND PARONYCHIA OF FINGER 08/19/2014 HOWARD CHICKEN DRESSER, BILLY 719.47 PAIN- ANKLE 08/19/2014 HOWARD CHICKEN DRESSER, BILLY 724.2 LUMBAGO/ LOW BACK PAIN 08/19/2014 HOWARD CHICKEN DRESSER, BILLY 729.5 PAIN- FINGERS 08/19/2014 HOWARD CHICKEN DRESSER, BILLY 790.6 ABNORMAL LFT (LIVER FUNCTION TEST) 08/19/2014 GELY HOBBS APRNA S 681.02 ONYCHIA AND PARONYCHIA OF FINGER 08/19/2014 GELY HOBBS APRNA S 719.47 PAIN- ANKLE 08/19/2014 GELY HOBBS APRNA S 724.2 LUMBAGO/ LOW BACK PAIN 08/19/2014 GELY HOBBS APRNA S 729.5 PAIN- FINGERS 08/19/2014 GELY HOBBS APRNA S 790.6 ABNORMAL LFT (LIVER FUNCTION TEST) 08/19/2014 SACHA PITT APRN 681.02 ONYCHIA AND PARONYCHIA OF FINGER 08/19/2014 SACHA PITT APRN 719.47 PAIN- ANKLE 08/19/2014 SACHA PITT APRN 724.2 LUMBAGO/ LOW BACK PAIN 08/19/2014 SACHA PITT APRN 729.5 PAIN- FINGERS 08/19/2014 SACHA PITT APRN 790.6 ABNORMAL LFT (LIVER FUNCTION TEST) 08/19/2014 FABY CUNNINGHAM SERAFIN S 681.02 ONYCHIA AND PARONYCHIA OF FINGER 08/19/2014 GELY HOBBS APRNA S 719.47 PAIN- ANKLE 08/19/2014 FABY CHICKEN DRESSER, SERAFIN S 724.2 LUMBAGO/ LOW BACK PAIN 08/19/2014 FABY CHICKEN DRESSER, SERAFIN S 729.5 PAIN- FINGERS 08/19/2014 FABY CHICKEN DRESSER, SERAFIN S 790.6 ABNORMAL LFT (LIVER FUNCTION TEST) 08/19/2014 HOWARD CHICKEN DRESSER, BILLY 681.02 ONYCHIA AND PARONYCHIA OF FINGER 08/19/2014 HOWARD CHICKEN DRESSER, BILLY 719.47 PAIN- ANKLE 08/19/2014 HOWARD CHICKEN DRESSER, BILLY 724.2 LUMBAGO/ LOW BACK PAIN 08/19/2014 HOWARD CHICKEN DRESSER, BILLY 729.5 PAIN- FINGERS 08/19/2014 HOWARD CHICKEN DRESSER, BILLY 790.6 ABNORMAL LFT (LIVER FUNCTION TEST) 08/19/2014 FABY CHICKEN DRESSER, SERAFIN S 681.02 ONYCHIA AND PARONYCHIA OF FINGER 08/19/2014 FABY CHICKEN DRESSER, SERAFIN S 719.47 PAIN- ANKLE 08/19/2014 FABY CHICKEN DRESSER, SERAFIN S 724.2 LUMBAGO/ LOW BACK PAIN 08/19/2014 FABY CHICKEN DRESSER, SERAFIN S 729.5 PAIN- FINGERS 08/19/2014 FABY CHICKEN DRESSER, SERAFIN S 790.6 ABNORMAL LFT (LIVER FUNCTION TEST) 09/01/2014 CRISTIANE EASTON CHICKEN DRESSER Ot V76.12 09/09/2014 FABY CHICKEN DRESSER, SERAFIN S 486 PNEUMONIA UNSPECIFIED 09/09/2014 SACHA PITT APRN 486 PNEUMONIA UNSPECIFIED 09/09/2014 FABY CUNNINGHAM, SERAFIN S 486 PNEUMONIA UNSPECIFIED 09/09/2014 HOWARD CHICKEN DRESSER, BILLY 486 PNEUMONIA UNSPECIFIED 09/09/2014 FABY RAMOSN, SERAFIN S 486 PNEUMONIA UNSPECIFIED 09/23/2014 SACHA PITT APRN 070.54 HEPATITIS C CHRONIC 09/23/2014 FBAY CUNNINGHAM SERAFIN S 070.54 HEPATITIS C CHRONIC 09/23/2014 HOWARD CHICKEN DRESSER BILLY 070.54 HEPATITIS C CHRONIC 09/23/2014 RADHA HOBBS APRNNDA S 070.54 HEPATITIS C CHRONIC 09/28/2014 SACHA PITT APRN 296.31 MO DEPRESSIVE RECURRENT MILD 09/28/2014 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 APRN S 296.31 MO DEPRESSIVE RECURRENT MILD 09/28/2014 BILLY LAWRENCE APRN 296.31 MO DEPRESSIVE RECURRENT MILD 09/28/2014 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 APRN S 296.31 MO DEPRESSIVE RECURRENT MILD 09/30/2014 SACHA PITT APRN 726.19 OTHER SPECIFIED DISORDERS OF BURSAE AND TENDONS IN SHOULDER REGION 09/30/2014 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 APRN S 726.19 OTHER SPECIFIED DISORDERS OF BURSAE AND TENDONS IN SHOULDER REGION 09/30/2014 BILLY LAWRENCE APRN 726.19 OTHER SPECIFIED DISORDERS OF BURSAE AND TENDONS IN SHOULDER REGION 09/30/2014 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 APRN S 726.19 OTHER SPECIFIED DISORDERS OF BURSAE AND TENDONS IN SHOULDER REGION 09/30/2014 CRISTIANE EASTON APRN Ot V76.12 10/13/2014 SACHA PITT APRN 070.32 CHRONIC VIRAL HEPATITIS B WITHOUT HEPATIC COMA WITHOUT HEPATITIS DELTA 10/13/2014 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 APRN S 070.32 CHRONIC VIRAL HEPATITIS B WITHOUT HEPATIC COMA WITHOUT HEPATITIS DELTA 10/13/2014 BILLY LAWRENCE APRN 070.32 CHRONIC VIRAL HEPATITIS B WITHOUT HEPATIC COMA WITHOUT HEPATITIS DELTA 10/13/2014 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 APRN S 070.32 CHRONIC VIRAL HEPATITIS B WITHOUT HEPATIC COMA WITHOUT HEPATITIS DELTA 10/25/2014 Ot V72.84 10/26/2014 Ot 211.3 BENIGN NEOPLASM LG BOWEL 10/26/2014 Ot 792.1 ABN FIND- STOOL CONTENTS 10/26/2014 Ot V16.0 FAMILY HX-GI MALIGNANCY 11/11/2014 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 APRN S 354.2 LESION OF ULNAR NERVE 11/11/2014 BILLY LAWRENCE APRN 354.2 LESION OF ULNAR NERVE 11/11/2014 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 APRN S 354.2 LESION OF ULNAR NERVE 11/17/2014 GELY HOBBS APRNA S 070.20 VIRAL HEPATITIS B WITH HEPATIC COMA ACUTE OR UNSPECIFIED WITHOUT HEPATITIS DELTA 11/17/2014 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 APRN S 786.2 COUGH 11/17/2014 HOWARD CHICKEN DRESSER, BILLY 070.20 VIRAL HEPATITIS B WITH HEPATIC COMA ACUTE OR UNSPECIFIED WITHOUT HEPATITIS DELTA 11/17/2014 BILLY LAWRENCE APRN 786.2 COUGH 11/17/2014 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 APRN 070.20 VIRAL HEPATITIS B WITH HEPATIC COMA ACUTE OR UNSPECIFIED WITHOUT HEPATITIS DELTA 11/17/2014 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 APRN 786.2 COUGH 12/21/2014 Ot V72.84 12/22/2014 Ot V72.84 01/08/2015 AYANA LINDO, MALIA Spann Ot 998.32 DISRUPTION OF EXTERNAL OPERATION (SURGIC 11/15/2015 Ot 717.2 11/15/2015 Ot V76.12 11/15/2015 CRISTIANE EASTON CHICKEN DRESSER Ot V76.12 11/15/2015 Ot V72.84 11/15/2015 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 TASSEL MAKING MACHINE OPERATOR Ot Z12.31 12/06/2015 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P Ot Z12.31 12/16/2015 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 TASSEL MAKING MACHINE OPERATOR Ot Z12.31 ENCNTR SCREEN MAMMOGRAM FOR MALIGNANT NE 12/16/2015 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 TASSEL MAKING MACHINE OPERATOR Ot Z12.31 ENCNTR SCREEN MAMMOGRAM FOR MALIGNANT NE 11/23/2016 Ot V76.12 OTH SCREEN MAMMO-MALIGN NEOPLASM OF MJ 11/23/2016 CRISTIANE EASTON CHICKEN DRESSER Ot V76.12 OTH SCREEN MAMMO-MALIGN NEOPLASM OF MJ 11/23/2016 Ot V72.84 EXAM PRE- OPERATIVE NOS 11/23/2016 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 TASSEL MAKING MACHINE OPERATOR Ot Z12.31 ENCNTR SCREEN MAMMOGRAM FOR MALIGNANT NE 11/23/2016 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 TASSEL MAKING MACHINE OPERATOR Ot Z12.31 ENCNTR SCREEN MAMMOGRAM FOR MALIGNANT NE 11/23/2016 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 TASSEL MAKING MACHINE OPERATOR Ot Z12.31 ENCNTR SCREEN MAMMOGRAM FOR MALIGNANT NE 12/14/2016 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P Ot Z12.31 ENCNTR SCREEN MAMMOGRAM FOR MALIGNANT NE 01/23/2017 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P Ot Z12.31 ENCNTR SCREEN MAMMOGRAM FOR MALIGNANT NE 05/21/2017 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P Ot I65.23 OCCLUSION AND STENOSIS OF BILATERAL [place] 05/21/2017 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 TASSEL MAKING MACHINE OPERATOR Ot R41.0 DISORIENTATION, UNSPECIFIED 05/21/2017 FABYRADHA MADDOXNDA TASSEL MAKING MACHINE OPERATOR Ot R42 DIZZINESS AND GIDDINESS 05/21/2017 FABYSERAFIN MADDOX TASSEL MAKING MACHINE OPERATOR Ot R53.1 WEAKNESS 06/07/2017 FABYSERAFIN MADDOX TASSEL MAKING MACHINE OPERATOR Ot I65.23 OCCLUSION AND STENOSIS OF BILATERAL [place] 06/07/2017 FABYSERAFIN MADDOX TASSEL MAKING MACHINE OPERATOR Ot R41.0 DISORIENTATION, UNSPECIFIED 06/07/2017 FABY, SERAFIN TASSEL MAKING MACHINE OPERATOR Ot R42 DIZZINESS AND GIDDINESS 06/07/2017 FABYRADHASERAFIN TASSEL MAKING MACHINE OPERATOR Ot R53.1 WEAKNESS 06/17/2017 FABYRADHA MADDOXNDA TASSEL MAKING MACHINE OPERATOR Ot I65.23 OCCLUSION AND STENOSIS OF BILATERAL [place] 06/17/2017 FABYGELY MADDOXA TASSEL MAKING MACHINE OPERATOR Ot R41.0 DISORIENTATION, UNSPECIFIED 06/17/2017 FABYRADHASERAFIN TASSEL MAKING MACHINE OPERATOR Ot R42 DIZZINESS AND GIDDINESS 06/17/2017 FABYSERAFIN TASSEL MAKING MACHINE OPERATOR Ot R53.1 WEAKNESS Procedures Code [place] [address] PSYCH PHARM MGMT 07/04/2012 17205 ROUTINE VENIPUNCTURE 11/24/2012 80507 CBC 11/24/2012 79069 CMP 11/24/2012 92285 LIPID PANEL 11/24/2012 [id number] GFR CALC (RESULT ONLY) 11/24/2012 45461 TSH 11/24/2012 28813 VITAMIN D 25-HYDROXY (D2,D3 , TOTAL) 11/24/2012 85338 URINE DRUG SCREEN (IN-HOUSE ) 01/12/2013 90538 ROUTINE VENIPUNCTURE 02/10/2013 02786 CMP 02/10/2013 57148 LIPID PANEL 02/10/2013 [id number] GFR CALC (RESULT ONLY) 02/10/2013 96159 VITAMIN D 25-HYDROXY (D2,D3 , TOTAL) 02/10/2013 78128 OXIMETRY 02/19/2013 28466 ROUTINE VENIPUNCTURE 05/28/2013 31307 LIVER PANEL (LFT) 05/28/2013 45603 LIPID PANEL 05/28/2013 G0008 FLU ADMINISTRATION ( MEDICARE ONLY) 06/22/2013 28751 ROUTINE VENIPUNCTURE 09/10/2013 [id number] GFR CALC (RESULT ONLY) 09/10/2013 92312 CMP 09/10/2013 44387 LIPID PANEL 09/10/2013 22266 ROUTINE VENIPUNCTURE 10/09/2013 21560 LIVER PANEL (LFT) 10/09/2013 39375 ROUTINE VENIPUNCTURE 11/30/2013 12577 A1C (IN-HOUSE) 11/30/2013 75830 URINE DRUG SCREEN (IN-HOUSE ) 11/30/2013 12274 CMP 12/08/2013 63926 LIPID PANEL 12/08/2013 45459 TSH 12/08/2013 42512 CBC 12/08/2013 34293 URINE DRUG SCREEN (IN-HOUSE ) 02/16/2014 73263 URINE DRUG SCREEN (IN-HOUSE ) 06/10/2014 76866 MAMMOGRAM, SCREENING 08/05/2014 72921 HEMOCCULT 08/11/2014 81775 HEMOCCULT 08/11/2014 General S Angel Bell 08/17/2014 41406 ROUTINE VENIPUNCTURE 08/19/2014 63457 XRAY LUMBAR SPINE 2 OR 3 VIEWS 08/19/2014 91155 XRAY KNEE RIGHT 1 OR 2 VIEWS 08/19/2014 29010 HEPATITIS PROFILE 08/19/2014 [id number] GFR CALC (RESULT ONLY) 08/19/2014 13995 CMP 08/19/2014 83950 LIPID PANEL 08/19/2014 32622 CBC 08/19/2014 22289 TSH 08/19/2014 6953323 HCV INDEX (RESULT ONLY) 08/20/2014 70035 ROUTINE VENIPUNCTURE 10/19/2014 66986 HIV ANTIBODIES (RML) 10/20/2014 53552 PT/INR 10/20/2014 77385 HEP C PCR QUANT W/[place] 10/21/2014 53493 HEP B DNA (QUANT) 10/27/2014 76131 ROUTINE VENIPUNCTURE 12/16/2014 31539 HEP B DNA (QUANT) 12/16/2014 29794 CMP 12/16/2014 3198080 GFR CALC (RESULT ONLY) 12/16/2014 75529 TSH 12/16/2014 Results Test Result Range Capillary blood glucose measurement by glucometer (mass/volume) - 09/27/17 12: 38 Capillary blood glucose measurement by glucometer (mass/volume) 176 mg/dL 70-110 Complete blood count (CBC) with automated white blood cell (WBC) differential - 09/27/17 13:21 Blood leukocytes automated count (number/volume) 11.5 10*3/uL 4.3-11.0 Blood erythrocytes automated count (number/volume) 4.45 10*6/uL 4.35-5.85 Venous blood hemoglobin measurement (mass/volume) 14.1 g/dL 11.5-16.0 Blood hematocrit (volume fraction) 42 % 35-52 Automated erythrocyte mean corpuscular volume 94 [foz_us] 80-99 Automated erythrocyte mean corpuscular hemoglobin (mass per erythrocyte) 32 pg 25-34 Automated erythrocyte mean corpuscular hemoglobin concentration measurement ( mass/volume) 34 g/dL 32-36 Automated erythrocyte distribution width ratio 15.1 % 10.0-14.5 Automated blood platelet count (count/volume) 194 10*3/uL 130-400 Automated blood platelet mean volume measurement 11.1 [foz_us] 7.4-10.4 Automated blood neutrophils/100 leukocytes 59 % 42-75 Automated blood lymphocytes/100 leukocytes 27 % 12-44 Blood monocytes/100 leukocytes 12 % 0-12 Automated blood eosinophils/100 leukocytes 2 % 0-10 Automated blood basophils/100 leukocytes 1 % 0-10 Blood neutrophils automated count (number/volume) 6.7 10*3 1.8-7.8 Blood lymphocytes automated count (number/volume) 3.1 10*3 1.0-4.0 Blood monocytes automated count (number/volume) 1.4 10*3 0.0-1.0 Automated eosinophil count 0.2 10*3/uL 0.0-0.3 Automated blood basophil count (count/volume) 0.1 10*3/uL 0.0-0.1 PT panel in platelet poor plasma by coagulation assay - 09/27/17 13:21 Prothrombin time (PT) in platelet poor plasma by coagulation assay 14.2 s 12.2-14.7 INR in platelet poor plasma or blood by coagulation assay 1.1 0.8-1.4 Activated partial thromboplastin time (aPTT) in platelet poor plasma bycoagulation assay - 09/27/17 13:21 Activated partial thromboplastin time (aPTT) in platelet poor plasma bycoagulation assay 32 s 24-35 Comprehensive metabolic panel - 09/27/17 13:21 Serum or plasma sodium measurement (moles/volume) 142 mmol/L 135-145 Serum or plasma potassium measurement (moles/volume) 3.2 mmol/L 3.6-5.0 Serum or plasma chloride measurement (moles/volume) 110 mmol/L 98-107 Carbon dioxide 23 mmol/L 21-32 Serum or plasma anion gap determination (moles/volume) 9 mmol/L 5-14 Serum or plasma urea nitrogen measurement (mass/volume) 11 mg/dL 7-18 Serum or plasma creatinine measurement (mass/volume) 1.13 mg/dL 0.60-1.30 Serum or plasma urea nitrogen/creatinine mass ratio 10 NRG Serum or plasma creatinine measurement with calculation of estimated glomerular filtration rate 49 NRG Serum or plasma glucose measurement (mass/volume) 115 mg/dL 70-105 Serum or plasma calcium measurement (mass/volume) 9.0 mg/dL 8.5-10.1 Serum or plasma total bilirubin measurement (mass/volume) 0.4 mg/dL 0.1-1.0 Serum or plasma alkaline phosphatase measurement (enzymatic activity/volume) 106 U/L 40-136 Serum or plasma aspartate aminotransferase measurement (enzymatic activity/ volume) 11 U/L 5-34 Serum or plasma alanine aminotransferase measurement (enzymatic activity/volume ) < U/L 0-55 Serum or plasma protein measurement (mass/volume) 6.8 g/dL 6.4-8.2 Serum or plasma albumin measurement (mass/volume) 3.4 g/dL 3.2-4.5 Magnesium - 09/27/17 13:21 Magnesium 2.2 mg/dL 1.8-2.4 Serum or plasma creatine kinase measurement (enzymatic activity/volume) - 09/27 13:21 Serum or plasma creatine kinase measurement (enzymatic activity/volume) 72 U/L 29-168 Serum or plasma lithium measurement (moles/volume) - 09/27/17 13:21 BNP level 99.7 pg/mL <100.0 Serum or plasma creatine kinase MB measurement (enzymatic activity/volume) - 13:21 Serum or plasma creatine kinase MB measurement (enzymatic activity/volume) 1.6 ng/mL <6.6 Serum or plasma troponin i.cardiac measurement (mass/volume) - 09/27/17 13:21 Serum or plasma troponin i.cardiac measurement (mass/volume) < ng/ mL <0.30 Myoglobin, serum - 09/27/17 13:21 Myoglobin, serum 70.7 ng/mL 10.0-92.0 Serum or plasma thyrotropin measurement by detection limit <=0.05 miu/l (units/ volume) - 09/27/17 13:21 Serum or plasma thyrotropin measurement by detection limit <=0.05 miu/l (units/ volume) 0.87 u[iU]/mL 0.35-4.94 Serum or plasma acetaminophen measurement (mass/volume) - 09/27/17 13:21 Serum or plasma acetaminophen measurement (mass/volume) < ug/mL 10-30 Serum or plasma ethanol measurement (mass/volume) - 09/27/17 13:21 Serum or plasma ethanol measurement (mass/volume) < mg/dL <10 Urine drug screening test - 09/27/17 14:08 Urine phencyclidine detection by screening method NEGATIVE NEGATIVE Urine benzodiazepines detection by screening method NEGATIVE NEGATIVE Urine cocaine detection NEGATIVE NEGATIVE Urine amphetamines detection by screening method NEGATIVE NEGATIVE Urine methamphetamine detection by screening method NEGATIVE NEGATIVE Urine cannabinoids detection by screening method POSITIVE NEGATIVE Urine opiates detection by screening method NEGATIVE NEGATIVE Urine barbiturates detection NEGATIVE NEGATIVE Screening urine tricyclic antidepressants detection NEGATIVE NEGATIVE Urine methadone detection by screening method NEGATIVE NEGATIVE Urine oxycodone detection NEGATIVE NEGATIVE Urine propoxyphene detection NEGATIVE NEGATIVE Complete urinalysis with reflex to culture - 09/27/17 14:08 Urine color determination YELLOW NRG Urine clarity determination CLEAR NRG Urine pH measurement by test strip 6.5 5-9 Specific gravity of urine by test strip 1.010 1.016- 1.022 Urine protein assay by test strip, semi-quantitative NEGATIVE NEGATIVE Urine glucose detection by automated test strip NEGATIVE NEGATIVE Erythrocytes detection in urine sediment by light microscopy 1+ NEGATIVE Urine ketones detection by automated test strip NEGATIVE NEGATIVE Urine nitrite detection by test strip NEGATIVE NEGATIVE Urine total bilirubin detection by test strip NEGATIVE NEGATIVE Urine urobilinogen measurement by automated test strip (mass/volume) NORMAL NORMAL Urine leukocyte esterase detection by dipstick NEGATIVE NEGATIVE Automated urine sediment erythrocyte count by microscopy (number/high power field) NONE NRG Automated urine sediment leukocyte count by microscopy (number/high power field ) NONE NRG Bacteria detection in urine sediment by light microscopy NEGATIVE NRG Squamous epithelial cells detection in urine sediment by light microscopy 5-10 NRG Crystals detection in urine sediment by light microscopy NONE NRG Casts detection in urine sediment by light microscopy NONE NRG Mucus detection in urine sediment by light microscopy NEGATIVE NRG Complete urinalysis with reflex to culture NO NRG Encounters ACCT No. Visit Date/Time Discharge Status Pt. Type Provider Facility Loc./Unit Complaint [id number] 12/16/2014 09:10:00 12/16/2014 23:59:59 CLS Outpatient 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 APRN [id number] 11/17/2014 15:34:00 11/17/2014 23:59:59 CLS Outpatient 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 APRN [id number] 11/12/2014 09:35:00 11/12/2014 23:59:59 CLS Outpatient BILLY LAWRENCE APRN [id number] 09/30/2014 14:17:00 09/30/2014 23:59:59 CLS Outpatient SACHA PITT APRN Zana [id number] 09/09/2014 10:51:00 09/09/2014 23:59:59 CLS Outpatient 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 APRN [id number] 08/19/2014 10:49:00 08/19/2014 23:59:59 CLS Outpatient 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 APRN [id number] 08/17/2014 09:34:00 08/17/2014 23:59:59 CLS Outpatient BILLY LAWRENCE APRN [id number] 08/17/2014 09:34:00 08/17/2014 23:59:59 CLS Outpatient HOWARD CHICKEN DRESSERBILLY Burger [id number] 08/11/2014 10:47:00 08/11/2014 23:59:59 CLS Outpatient CRISTIANE EASTON APRN [id number] 08/05/2014 13:01:00 08/05/2014 23:59:59 CLS Outpatient CRISTIANE EASTON APRN [id number] 06/21/2014 09:59:00 06/21/2014 23:59:59 CLS Outpatient TAYLOR CARVAJAL MD [id number] 06/10/2014 10:03:00 06/10/2014 23:59:59 CLS Outpatient BILLY LAWRENCE APRN [id number] 05/18/2014 09:35:00 05/18/2014 23:59:59 CLS Outpatient BILLY LAWRENCE APRN [id number] 04/12/2014 10:40:00 04/12/2014 23:59:59 CLS Outpatient TAYLOR CARVAJAL MD [id number] 02/16/2014 10:27:00 02/16/2014 23:59:59 CLS Outpatient BILLY LAWRENCE APRN [id number] 02/16/2014 10:27:00 02/16/2014 23:59:59 CLS Outpatient BILLY LAWRENCE APRN [id number] 01/29/2014 14:00:00 01/29/2014 23:59:59 CLS Outpatient TAYLOR CARVAJAL MD [id number] 11/17/2013 10:05:00 11/17/2013 23:59:59 CLS Outpatient KARMEN ESPINOSA APRN [id number] 11/17/2013 10:05:00 11/17/2013 23:59:59 CLS Outpatient KARMEN ESPINOSA APRN [id number] 10/09/2013 14:51:00 10/09/2013 23:59:59 CLS Outpatient TAYLOR CARVAJAL MD [id number] 10/09/2013 14:51:00 10/09/2013 23:59:59 CLS Outpatient TAYLOR CARVAJAL MD [id number] 09/10/2013 14:33:00 09/10/2013 23:59:59 CLS Outpatient TONE IGNACIO DO [id number] 07/07/2013 14:17:00 07/07/2013 23:59:59 CLS Outpatient KARMEN ESPINOSA APRN [id number] 06/22/2013 09:21:00 06/22/2013 23:59:59 CLS Outpatient TONE IGNACIO DO [id number] 05/28/2013 11:49:00 05/28/2013 23:59:59 CLS Outpatient TONE IGNACIO DO [id number] 04/14/2013 08:54:00 04/14/2013 23:59:59 CLS Outpatient KARMEN ESPINOSA APRN [id number] 04/14/2013 08:54:00 04/14/2013 23:59:59 CLS Outpatient KARMEN ESPINOSA APRN [id number] 11/28/2012 10:48:00 11/28/2012 23:59:59 CLS Outpatient KARMEN ESPINOSA APRN [id number] 11/24/2012 09:54:00 11/24/2012 23:59:59 CLS Outpatient TONE IGNACIO DO [id number] 08/04/2012 09:54:00 08/04/2012 23:59:59 CLS Outpatient TONE IGNACIO DO [id number] 07/04/2012 00:00:00 07/04/2012 23:59:59 CLS Outpatient KARMEN ESPINOSA APRN Zana [id number] 06/06/2012 12:52:00 06/06/2012 23:59:59 CLS Outpatient KARMEN ESPINOSA APRN Zana [id number] 09/20/2011 08:50:00 09/20/2011 23:59:59 CLS Outpatient TONE IGNACIO DO [id number] 04/08/2013 11:04:00 Document Registration [id number] 02/19/2013 14:04:00 Document Registration [id number] 02/19/2013 14:04:00 Document Registration [id number] 02/10/2013 10:27:00 Document Registration [id number] 01/15/2013 14:36:00 Document Registration [id number] 01/15/2013 14:36:00 Document Registration [id number] 01/12/2013 10:30:00 Document Registration [id number] 09/27/2017 11:52:00 09/27/2017 18:27:00 DIS Emergency JIMBO RODRIGUEZ [facility] ER HIGH BP [id number] 05/17/2017 12:34:00 05/17/2017 23:59:59 CLS Outpatient 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P [facility] RAD R42 [id number] 03/28/2017 10:08:00 03/28/2017 23:59:59 CLS Preadmit GEOVANNI WOLFE MD [facility] RAD REFLUX [id number] 11/23/2016 10:58:00 11/23/2016 23:59:59 CLS Outpatient 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 [id number] 11/15/2015 09:36:00 11/15/2015 23:59:59 CLS Outpatient 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 [id number] 01/08/2015 19:01:00 01/08/2015 19:24:00 DIS Emergency MALIA PIÑA MD [facility] ER STITCHES CAME OUT L ARM [id number] 08/11/2014 09:53:00 08/11/2014 23:59:59 CLS Outpatient CRISTIANE EASTON APRN [facility] RAD ROUTINE [id number] 10/26/2014 12:15:00 Document Registration [id number] 10/26/2014 11:40:00 Document Registration [id number] 10/21/2014 06:14:00 Document Registration [id number] 04/13/2012 08:32:00 Document Registration [id number] 03/13/2012 10:22:00 Document Registration [id number] 01/17/2011 07:34:00 Document Registration [id number] 09/11/2010 14:52:00 Document Registration
== END 2017-09-27 18:27 | disposition home or self-care (01) ==
LOC: EDUNIT# 11:51 → ER 11:52
DX: S09.90XA Unspecified injury of head, initial encounter (principal); E86.9 Volume depletion, unspecified; G47.9 Sleep disorder, unspecified; I10 Essential (primary) hypertension; F12.90 Cannabis use, unspecified, uncomplicated; Z91.81 History of falling; Z87.891 Personal history of nicotine dependence; Z90.710 Acquired absence of both cervix and uterus; Z87.09 Personal history of other diseases of the respiratory system; W06.XXXA Fall from bed, initial encounter
CPT/HCPCS: 36415; 70450; 70486; 71045; 72125; 80053; 80306; 80320; 80329; 81000; 82550; 82553; 82962; 83735; 83874; 83880; 84443; 84484; 85025; 85610; 85730; 93041

== ENCOUNTER 2018-03-16 11:40 | Emergency (ER) | payer MEDICARE ==
[~2018-03-16] VITALS: Ht 162.6 cm; Wt 90.7 kg
[2018-03-16] MEDS ORDERED: RT-ALBUTEROL/IPRATROPIUM 3 ML (DUONEB) VIAL INH ONE ×2 (12:45→13:30)
[2018-03-16 12:47] LABS: BASOPHILS % (AUTO) 0 % (0-10); EOSINOPHILS # (AUTO) 0.2 10^3/uL (0.0-0.3); EOSINOPHILS % (AUTO) 1 % (0-10); HEMATOCRIT 44 % (35-52); HEMOGLOBIN 14.6 G/DL (11.5-16.0); LYMPHOCYTES # (AUTO) 2.5 X 10^3 (1.0-4.0); LYMPHOCYTES % (AUTO) 20 % (12-44); MEAN CORPUSCULAR HEMOGLOBIN 31 PG (25-34); MEAN CORPUSCULAR HGB CONC 34 G/DL (32-36); MEAN CORPUSCULAR VOLUME 92 FL (80-99); MEAN PLATELET VOLUME 10.5 FL (7.4-10.4); MONOCYTES # (AUTO) 1.3 X 10^3 (0.0-1.0); MONOCYTES % (AUTO) 10 % (0-12); NEUTROPHILS # (AUTO) 8.6 X 10^3 (1.8-7.8); NEUTROPHILS % (AUTO) 68 % (42-75); PLATELET COUNT 236 10^3/uL (130-400); RED BLOOD COUNT 4.75 10^6/uL (4.35-5.85); RED CELL DISTRIBUTION WIDTH 15.2 % (10.0-14.5); WHITE BLOOD COUNT 12.6 10^3/uL (4.3-11.0)
--- NOTE | 2018-03-16 13:20 | ED Cough/URI ---
General Chief Complaint: Cough/Cold/Flu Symptoms Stated Complaint: COLD LIKE SYMPTOMS Nursing Triage Note: C/O productive cough and hoarse voice since 03/09. Has seen pcp and was told it was allergy. Denies fever Source: patient Exam Limitations: no limitations History of Present Illness Date Seen by Provider: Mar 16, 2018 Time Seen by Provider: 13:15 Initial Comments This 58-year-old white female presents with productive cough and laryngitis for the last week. Patient's symptoms are becoming worse. Patient has had similar episode several years ago requiring them antibiotics and steroids. Patient denies associated headache or stiff neck. She's had no associated photophobia. She denies nausea vomiting or diarrhea. Patient has been taking no medications to this point. Patient is having moderate wheezing with her cough. Allergies and Home Medications Allergies Uncoded Allergies: DYE (Allergy, Unknown, 10/26/14) Home Medications Alprazolam 1 Mg Tablet, 1 PO PRN, (Reported) Aripiprazole 2 Mg Tablet, 2 MG PO DAILY, (Reported) Cholecalciferol (Vitamin D3) 2,000 Unit Capsule, 2,000 UNIT PO DAILY, (Reported) Levothyroxine Sodium 175 Mcg Tablet, 100 MCG PO DAILY, (Reported) Lisinopril/Hydrochlorothiazide 1 Tab Tablet, 1 TAB PO DAILY, (Reported) Meloxicam 7.5 Mg Tablet, 15 MG PO DAILY, (Reported) Methylphenidate Hcl 5 Mg Tablet, 5 MG PO BID, (Reported) Aurora-3/Dha/Epa/Fish Oil 1 Each Capsule.dr, 1 EACH PO TID, (Reported) Pantoprazole Sod 40 Mg Tab, 40 MG PO DAILY, (Reported) Potassium Chloride 10 Meq Capsule.sa, 10 MEQ PO DAILY, (Reported) Pravastatin Sodium 80 Mg Tablet, 40 MG PO DAILY, (Reported) Quetiapine Fumarate 100 Mg Tablet, 100 MG PO HS, (Reported) Trazodone Hcl 150 Mg Tablet, 150 MG PO DAILY, (Reported) Trimethoprim/Sulfamethoxazole 1 Ea Tablet, 1 EA PO BID Prescribed by: MALIA PIÑA on 01/08/151920 Venlafaxine HCl 75 Mg Cap.er.24h, 75 MG PO DAILY, (Reported) Venlafaxine Hcl 150 Mg Cap.sr.24h, 1 EACH PO DAILY, (Reported) [Abilify] , 5 MG PO DAILY, (Reported) [Albuterol Sulfate ] , 90 MCG IH Q6H, (Reported) [Estrogen Cream] , 0.625 MG VG DAILY, (Reported) Patient Home Medication List Home Medication List Reviewed: Yes Review of Systems Constitutional: No chills, No fever EENTM: No blurred vision Respiratory: see HPI, cough Gastrointestinal: No abdominal pain, No nausea, No vomiting Genitourinary: no symptoms reported Musculoskeletal: No back pain Skin: No rash Psychiatric/Neurological: No Symptoms Reported Hematologic/Lymphatic: No Symptoms Reported Immunological/Allergic: no symptoms reported Past Azhyrrk-Dtjfzv-Axvdrt Hx Past Med/Social Hx: Reviewed Nursing Past Med/Soc Hx Patient Social History Alcohol Use: Denies Use Recreational Drug Use: No Smoking Status: Current Everyday Smoker 2nd Hand Smoke Exposure: No Recent Foreign Travel: No Contact w/Someone Who Travel: No Recent Infectious Disease Expo: No Recent Hopitalizations: No Physical Abuse: No Sexual Abuse: No Mistreated: No Fear: No Immunizations Up To Date Date of Influenza Vaccine: Jul 26, 2014 Past Medical History Surgeries: Yes (LT ELBOW REPAIR) Hysterectomy Respiratory: Yes (HX OF BRONCHITIS) Cardiac: Yes High Cholesterol, Hypertension 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 oz. 90.379353xh; 30.89 BMI Method:Stated General Appearance: WD/WN Eyes: Bilateral Eye Normal Inspection HEENT: normal ENT inspection Neck: normal inspection Respiratory: decreased breath sounds, wheezing Cardiovascular: regular rate, rhythm Gastrointestinal: normal bowel sounds Extremities: normal range of motion, non-tender, normal inspection Neurologic/Psychiatric: no motor/sensory deficits, alert, normal mood/affect, oriented x 3 Skin: normal color, warm/dry Progress/Results/Core Measures Suspected Sepsis Recent Fever Within 48 Hours: No Infection Criteria Present: None New/Unexplained Altered Menta: No Sepsis Screen: No Definite Risk SIRS Temperature:97.1 Pulse: 74 Respiratory Rate: 18 Laboratory Tests 03/16/18 12:42: White Blood Count 12.6H Blood Pressure 131 /80 Mean: 97 Laboratory Tests 03/16/18 12:42: Platelet Count 236 Results/Orders Lab Results Laboratory Tests Test 03/16/18 12:42 Range/Units White Blood Count 12.6 H 4.3-11.0 10^3/uL Red Blood Count 4.75 4.35-5.85 10^6/uL Hemoglobin 14.6 11.5-16.0 G/DL Hematocrit 44 35-52 % Mean Corpuscular Volume 92 80-99 FL Mean Corpuscular Hemoglobin 31 25-34 PG Mean Corpuscular Hemoglobin Concent 34 32-36 G/DL Red Cell Distribution Width 15.2 H 10.0-14.5 % Platelet Count 236 130-400 10^3/uL Mean Platelet Volume 10.5 H 7.4-10.4 FL Neutrophils (%) (Auto) 68 42-75 % Lymphocytes (%) (Auto) 20 12-44 % Monocytes (%) (Auto) 10 0-12 % Eosinophils (%) (Auto) 1 0-10 % Basophils (%) (Auto) 0 0-10 % Neutrophils # (Auto) 8.6 H 1.8-7.8 X 10^3 Lymphocytes # (Auto) 2.5 1.0-4.0 X 10^3 Monocytes # (Auto) 1.3 H 0.0-1.0 X 10^3 Eosinophils # (Auto) 0.2 0.0-0.3 10^3/uL Basophils # (Auto) 0.0 0.0-0.1 10^3/uL My Orders Orders - POLLY GOMEZ MD Chest 1 View, Ap/Pa Only (03/16/18 12:35) Cbc With Automated Diff (03/16/18 12:35) Albuterol/Ipra Inhalation Soln (Duoneb I (03/16/18 12:45) Svn Small Volume Nebulizer (03/16/18 12:42) Vital Signs/I&O 03/16/18 12:11 Temp 97.1 Pulse 74 Resp 18 B/P (MAP) 131/80 (97) Pulse Ox 94 Capillary Refill : Less Than 3 Seconds Blood Pressure Mean: 97 Progress Note : Time: 13:24 Progress Note The patient's chest x-ray felt showed evidence of an infiltrate. Patient instructed a moderate leukocytosis of 12,500. I discussed findings with patient. He requests that we treat her with steroids and antibiotics which had been used successfully several years ago for similar presentation. Departure Impression Primary Impression: Upper respiratory infection Qualified Codes: J06.9 - Acute upper respiratory infection, unspecified Disposition: HOME, SELF-CARE Condition: Unchanged Departure-Patient Inst. Decision time for Depature: 13:27 Referrals: TONE IGNACIO DO (PCP) Primary Care Physician 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 (Family) Primary Care Physician Patient Instructions: Acute Bronchitis, Adult (DC), Cough, Adult (DC) POLLY GOMEZ MD Mar 16, 2018 13:20
--- NOTE | 2018-03-16 13:22 | Diagnostic Imaging Report ---
INDICATION: Productive cough. TIME OF EXAM: 12:50 PM Correlation is made to prior study 09/27/2017. FINDINGS: The heart size is normal. The pulmonary vascularity is unremarkable. The lungs are clear. No infiltrate, effusion or pneumothorax is detected. IMPRESSION: No acute cardiopulmonary process is detected. Dictated by: Dictated on workstation # [id number]
[2018-03-16 13:55] VITALS: BP 124/86
--- OUTSIDE RECORDS SUMMARY | 2018-03-17 10:59 | XMS REPORT ---
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 Active 65328152 Problem Attention-deficit hyperactivity disorder, predominantly inattentive type F90.0 Active 66719643 Problem Obstructive sleep apnea G47.33 Active 80265068 Problem Primary insomnia F51.01 Active 3558070 Problem Neuralgia M79.2 Active 95024327 Problem Cannabis use disorder, mild, abuse F12.10 Active 54677929 Problem Folic acid deficiency E53.8 Active 438517834 Problem Restless legs G25.81 Active 03651793 Problem Major depressive disorder, recurrent, mild F33.0 Active 43856047 Problem Generalized anxiety disorder F41.1 Active 36811873 Problem Major depressive disorder, recurrent episode, moderate F33.1 Active 842201963 Problem Hypertension I10 Active 92831371 Problem Hyperlipidemia E78.5 Active 13037659 Problem Primary osteoarthritis of both knees M17.0 Active 152123427 Problem Chronic hepatitis K73.9 Active 23337414 Problem Low back pain M54.5 Active 561178951 Problem Chronic viral hepatitis B without delta-agent B18.1 Active 906262982 Problem Insomnia G47.00 Active 589103692 Problem Hypothyroid E03.9 Active 77436549 Problem Depression, major, recurrent, mild F33.0 Active 424285046 Problem Obesity due to excess calories, unspecified obesity severity E66.09 Active 457501677 ALLERGIES Substance Reaction Event Type Date Status Trazodone HCl "weird dreams" Drug Allergy Sep, Active ENCOUNTERS Encounter Location Date Diagnosis [facility] [id number] [address] Mar, [facility] [id number] [place] [address] 96610- 2059 Jan, [facility] [address] 0[address]66- 2167 December, [facility] [id number] [place] [address] 41599- 0467 December, [facility] [address] 66617- 3770 Dec, Bone pain M89.8X9 [facility] [address] 55981- 2204 Dec, [facility] [address] 47585- 1726 Oct, [facility] [address] 96847- 2450 Oct, Syncope, unspecified syncope type R55 ; Primary insomnia F51.01 ; Dry mouth R68.2 and Cannabis use disorder, mild, abuse F12.10 [facility] [id number] [place] [address] 41321- 8073 Oct, [facility] [id number] [place] [address] 13258- 4185 Sep, [facility] [id number] [place] [address] 66093- 0418 Sep, [facility] [id number] [place] [address] 90844- 0776 Sep, [facility] [id number] [place] [address] [id number] Sep, Dental examination Z01.20 [facility] [address] 10484- 9967 Sep, Dental examination Z01.20 [facility] [id number] [place] [address] 53399- 6493 Sep, Sinus congestion R09.81 ; Mouth sores K13.79 ; Low back pain M54.5 and Mouth swelling R22.0 [facility] [id number] [place] [address] 58537- 0081 Aug, Low back pain M54.5 [facility] [id number] [place] [address] 89800- 2987 Aug, Low back pain M54.5 [facility] [address] 04963- 3763 Jul, [facility] [address] 51699- 4407 Jul, 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 ; Encounter for immunization Z23 ; Hypothyroid E03.9 ; Decreased renal function N28.9 and Muscle cramps R25.2 [place] [address] 37821- 3129 Jul, [place] [address] 98134- 8511 Jul, [facility] [address] 55976- 0958 Jul, [place] [address] 91163- 1051 Jul, Major depressive disorder, recurrent, mild F33.0 [facility] [id number] [place] [address] 65561- 3474 Jul, Acquired cyst of kidney N28.1 ; Acidosis E87.2 and Hyperkalemia E87.5 [facility] [id number] [place] [address] 92664- 7743 Jul, Major depressive disorder, recurrent, mild F33.0 ; Attention -deficit hyperactivity disorder, predominantly inattentive type F90.0 and Generalized anxiety disorder F41.1 [facility] [id number] [place] [address] 81516- 6264 Jul, Low back pain M54.5 [place] [address], [place] [address] 2[address] 12 Jun, 2017 Cough R05 ; Low back pain M54.5 and Pre-syncope R55 [facility] [id number] [place] [address] 97764- 9109 Jun, Low back pain M54.5 [facility] [id number] [place] [address] [id number] Jun, Dental caries K02.9 [facility] [id number] [place] [address] 28117- 5459 Jun, [facility] [id number] [place] [address] 02214- 3641 Jun, Major depressive disorder, recurrent, mild F33.0 ; Attention -deficit hyperactivity disorder, predominantly inattentive type F90.0 and Generalized anxiety disorder F41.1 [facility] [id number] [place] [address] 79383- 8700 May, Vertigo R42 ; Confusion R41.0 ; Weakness R53.1 and Vision changes H53.9 [facility] [id number] [place] [address] 04147- 4639 May, [facility] [id number] [place] [address] 46048- 2652 May, [facility] [id number] [place] [address] 68241- 2465 May, Low back pain M54.5 [facility] [id number] [place] [address] 59764- 7023 05 May, 2017 Major depressive disorder, recurrent, mild F33.0 ; Attention -deficit hyperactivity disorder, predominantly inattentive type F90.0 and Generalized anxiety disorder F41.1 [facility] [address] [place] [address] 03039- 9725 May, [facility] [id number] [place] [address] 02068- 3289 May, Acute worsening of stage 3 chronic kidney disease N18.3 [facility] [id number] [place] [address] 37670- 2517 Apr, [facility] [address] 60142- 5493 Apr, Acute allergic rhinitis due to pollen, unspecified seasonality J30.1 ; Restless legs G25.81 and Low back pain M54.5 [facility] [id number] [place] [address] 48645- 9550 Apr, Primary osteoarthritis of both knees M17.0 [place] [address] 01975- 6303 Apr, Generalized anxiety disorder F41.1 [place] [address] 33681- 2436 Apr, Major depressive disorder, recurrent, mild F33.0 ; Attention -deficit hyperactivity disorder, predominantly inattentive type F90.0 and Generalized anxiety disorder F41.1 [facility] [id number] [place] [address] 86742- 6721 Apr, [facility] [id number] [place] [address] 62442- 3792 Mar, Major depressive disorder, recurrent episode, moderate F33.1 ; Generalized anxiety disorder F41.1 and ADHD, predominantly inattentive type F90.0 [facility] [id number] [place] [address] 17801 -0876 Mar, Abscess L02.91 [facility] [id number] [place] [address] 16223- 9280 Mar, 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 [facility] [id number] [place] [address] 45924- 3946 Mar, Decreased renal function N28.9 [facility] [address] [place] [address] [id number] Mar, Dental examination Z01.20 [facility] [address], [place] [address]- 3067 17 Mar, 2017 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 [facility] [id number] [place] [address] 53125- 1226 14 Mar, 2017 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 [facility] [id number] [place] [address] [id number] 14 Mar, 2017 Dental examination Z01.20 and Dental caries K02.9 [facility] [id number] [place] [address] 39243- 4332 12 Mar, 2017 Chronic viral hepatitis B without delta-agent B18.1 ; Folic acid deficiency E53.8 ; 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 and Decreased renal function N28.9 [facility] [id number] [place] [address] 37297- 3392 Mar, Major depressive disorder, recurrent, mild F33.0 [facility] [id number] [place] [address] 03781- 0864 05 Mar, 2017 [place] [place] [id number] [place] [address] 77427- 1401 Mar, Chronic hepatitis K73.9 ; 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 ; Localized edema R60.0 ; Illicit drug use F19.90 ; Vision changes H53.9 and Obesity due to excess calories, unspecified obesity severity E66.09 [facility] [place] [id number] [place] [address] 99053- 1998 13 Jan, 2017 Major depressive disorder, recurrent, mild F33.0 [facility] [id number] [place] [address] 20592- 4687 Jan, Chronic viral hepatitis B without delta-agent B18.1 [facility] [id number] [place] [address] 67848- 1766 Jan, [facility] [id number] [place] [address] 31459- 6692 Jan, Weight gain R63.5 ; Hypothyroid E03.9 ; 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 ; Decreased renal function N28.9 and Chronic viral hepatitis B without delta-agent B18.1 [place] [address] 83659- 6120 December, Major depressive disorder, recurrent, mild F33.0 and Generalized anxiety disorder F41.1 [place] [address] 50126- 3353 December, Obesity due to excess calories, unspecified obesity severity E66.09 and Folic acid deficiency E53.8 [place] [address] 03746- 0036 December, Folic acid deficiency E53.8 [place] [address] 10715- 7479 December, Folic acid deficiency E53.8 [place] [address] 27283- 8315 December, Obesity due to excess calories, unspecified obesity severity E66.09 [facility] [id number] [place] [address] 57555- 7882 December, [place] [address] 35986- 7909 December, Folic acid deficiency E53.8 [facility] [address] [id number] December, Encounter for other administrative examinations Z02.89 [place] [id number] [place] [address] 62363- 0208 Dec, [facility] [address] [id number] Dec, Dental caries K02.9 [facility] [id number] [place] [address] 97851- 2859 Oct, Bone pain M89.8X9 [place] [address] 25898- 9892 Oct, Hypothyroid E03.9 [facility] [address], [place] [address]- 8498 Oct, Hypothyroid E03.9 [facility] [id number] [place] [address] 66163- 5663 Oct, Breast cancer screening Z12.39 [facility] [address] [place] [address] [id number] 08 Oct, 2016 Dental examination Z01.20 [facility] [id number] [place] [address] 66079- 4701 Oct, [place] [id number] [place] [address] 87338- 2815 Oct, Major depressive disorder, recurrent, mild F33.0 and Generalized anxiety disorder F41.1 [facility] [place] [id number] [place] [address] 19224- 7453 Oct, [facility] [id number] [place] [address] 76468- 9405 Oct, Hypothyroid E03.9 [place] [id number] [place] [address] 53725- 4329 Sep, Hypothyroid E03.9 ; Chronic viral hepatitis B without delta- agent B18.1 and Folic acid deficiency E53.8 [place] [address] [place] [address] 44886- 3483 Sep, Hypothyroidism, unspecified type E03.9 ; Elevated parathyroid hormone E34.9 and Chronic viral hepatitis B without delta-agent B18.1 [place] [address] [place] [address] 34645- 8681 Sep, [facility] [id number] [place] [address] 30782- 5949 Sep, Elevated parathyroid hormone E34.9 [facility] [place] [id number] [place] [address] 84189- 8387 Sep, [facility] [id number] [place] [address] 87656- 6116 Sep, Chronic hepatitis K73.9 ; Bone pain M89.8X9 and Abnormal complete blood count R79.89 [facility] [id number] [place] [address] 86413- 6611 27 Aug, 2016 Major depressive disorder, recurrent, mild F33.0 [facility] [address] 49121- 4014 Aug, Bone pain M89.8X9 [facility] [address] 97489- 7784 Aug, [facility] [id number] [place] [address] 74483- 0808 Jul, Chronic viral hepatitis B without delta-agent B18.1 [place] [address] 32995- 7968 Jul, Hypothyroidism, unspecified type E03.9 [facility] [id number] [place] [address] 65862- 6755 Jul, [facility] [id number] [place] [address] 93857- 4915 Jul, Chronic hepatitis K73.9 and Hypothyroid E03.9 [facility] [id number] [place] [address] 69842- 3866 Jul, Low back pain M54.5 [facility] [id number] [place] [address] 95953- 1220 31 Jun, 2016 Depression, major, recurrent, mild F33.0 and ADD (attention deficit disorder) F90.0 [facility] [id number] [place] [address] 58553- 4070 Jun, [facility] [id number] [place] [address] 01060- 9722 Jun, Low back pain M54.5 [facility] [id number] [place] [address] 89550- 1838 Jun, Encounter for immunization Z23 ; Major depressive disorder, recurrent, mild F33.0 and Attention-deficit hyperactivity disorder, predominantly inattentive type F90.0 [facility] [id number] [place] [address] 47478- 6197 Jun, [facility] [address] 00200- 0702 Jun, Low back pain M54.5 [facility] [id number] [place] [address] 89034- 6663 May, [facility] [id number] [place] [address] 91710- 1438 May, [facility] [id number] [place] [address] 48516- 2042 May, Essential (primary) hypertension I10 [facility] [id number] [place] [address] 62873- 3560 19 May, 2016 Low back pain M54.5 [facility] [address] 83862- 4831 12 May, 2016 Low back pain M54.5 ; Chronic hepatitis K73.9 and Hypothyroid E03.9 [facility] [id number] [place] [address] 50157- 8121 09 May, 2016 Hypothyroidism, unspecified type E03.9 [facility] [id number] [place] [address] 62213- 5445 08 May, 2016 Low back pain M54.5 [facility] [id number] [place] [address] 50894- 8487 07 May, 2016 [facility] [id number] [place] [address] 31724- 5519 May, [facility] [address] 08945- 1023 May, Major depressive disorder, recurrent, moderate F33.1 ; Generalized anxiety disorder F41.1 ; Insomnia G47.00 and ADD (attention deficit disorder) F90.0 [place] [id number] [place] [address] 39070- 9951 Apr, Low back pain M54.5 [facility] [id number] [place] [address] 99759- 9364 Apr, [place] [address] 86393- 8276 Apr, Low back pain M54.5 [place] [address] 45072- 7068 Apr, Low back pain M54.5 ; Tooth pain K08.8 and Seasonal allergic rhinitis due to pollen J30.1 [place] [address] 70654- 3656 Apr, Low back pain M54.5 [place] [address] 07535- 7887 Apr, LGS[facility] Pap smear of vagina R87.622 [place] [address] 16330- 9111 Apr, Low back pain M54.5 [facility] [place] [id number] [place] [address] 04251- 5775 Mar, [place] [address] 88195- 4453 Mar, Low back pain M54.5 [place] [address] 68407- 6812 Mar, Encounter for Papanicolaou smear for cervical cancer screening Z12.4 ; Encounter for routine gynecological examination Z01.419 and Breast cancer screening Z12.39 [place] [address] 66630- 9485 Mar, Hypothyroidism, unspecified type E03.9 [facility] [address], [place] [address]- 8786 Mar, Low back pain M54.5 ; Other chronic pain G89.29 ; Hypothyroid E03.9 and Hypothyroidism, unspecified type E03.9 [facility] [address], [place] [address]- 9862 Mar, Major depressive disorder, recurrent, moderate F33.1 and Attention-deficit hyperactivity disorder, predominantly inattentive type F90.0 [facility] [address], [place] [address] -8482 Mar, Bronchitis J40 [facility] [id number] [place] [address] 36285- 1173 Jan, [facility] [id number] [place] [address] 51894- 0198 Jan, [facility] [id number] [place] [address] 75730- 1532 Jan, Insomnia G47.00 [facility] [id number] [place] [address] 65556- 5284 December, [facility] [id number] [place] [address] 60645- 6664 December, Major depressive disorder in partial remission F32.4 and Attention-deficit hyperactivity disorder, unspecified type F90.9 [facility] [address], [place] [address]- 4485 December, [facility] [address], [place] [address]- 6841 December, [facility] [address] [place] [address] 61266- 5040 Dec, [facility] [address], [place] [address]- 9495 Dec, Major depressive disorder, recurrent episode, moderate 296.32 and Attention deficit disorder of childhood without mention of hyperactivity 314.00 [facility] [address] [place] [address] 03607- 9114 15 Dec, 2015 Major depressive disorder, recurrent episode, mild 296.31 ; ADD (attention deficit disorder) F90.0 and Hyperlipidemia E78.5 [facility] [id number] [place] [address] 43702- 4614 Dec, Insomnia G47.00 [facility] [id number] [place] [address] 47688- 6462 Dec, Attention-deficit hyperactivity disorder, predominantly inattentive type F90.0 [facility] [id number] [place] [address] 40534- 6474 Oct, Restless legs syndrome G25.81 [facility] [id number] [place] [address] 01306- 8632 Oct, Hypothyroidism, unspecified type E03.9 [facility] [place] [id number] [place] [address] 77077- 1155 Oct, [facility] [id number] [place] [address] 86754- 6877 Oct, [facility] [id number] [place] [address] 54422- 4705 Oct, Hypothyroid E03.9 and Chronic hepatitis K73.9 [facility] [id number] [place] [address] 68042- 9243 Oct, [facility] [id number] [place] [address] 23178- 9424 08 Nov, 2015 Restless legs syndrome G25.81 ; Chronic hepatitis K73.9 ; Hypertension I10 ; Hypothyroid E03.9 and Breast cancer screening Z12.39 [facility] [address] [place] [address] 05325- 7496 Oct, [facility] [id number] [place] [address] 17041- 6765 Oct, [facility] [address], [place] [address]- 4077 Oct, [facility] [address], [place] [address]- 6488 Oct, [facility] [address], [place] [address]- 6996 Oct, [facility] [id number] [place] [address] 13033- 0318 Oct, [facility] [address], [place] [address]- 7983 Oct, [facility] [id number] [place] [address] 37794- 9191 Sep, [facility] [address], [place] [address]- 4652 Sep, Attention-deficit hyperactivity disorder, predominantly inattentive type F90.0 and Major depressive disorder in partial remission F32.4 [facility] [address], [place] [address]- 8199 Sep, [facility] [address], [place] [address]- 4918 Aug, [facility] [address], [place] [address]- 8540 Aug, [facility] [address], [place] [address]- 0916 Aug, Major depressive disorder, recurrent, mild F33.0 ; Attention -deficit hyperactivity disorder, unspecified type F90.9 and Generalized anxiety disorder F41.1 [facility] [address], [place] [address]- 1943 Aug, Chronic hepatitis K73.9 ; Primary osteoarthritis of both knees M17.0 and Neuralgia M79.2 [facility] [address], [place] [address]- 6392 Jul, [facility] [id number] [place] [address] 25100- 0531 Jul, [facility] [id number] [place] [address] 13944- 7636 Jul, [facility] [address] 78022- 3073 Jul, [facility] [address] 77850- 6217 Jun, [facility] [address] 18404- 0902 Jun, Bronchitis J40 and Encounter for immunization Z23 [facility] [address] [address]- [address] 30 May, 2015 [facility] [address] [address]- [address] 12 May, 2015 [facility] [id number] [place] [id number]- [address] May, [facility] [address] [address]- [address] 10 May, 2015 Hypokalemia 276.8 [facility] [id number] [place] [id number]- [address] 08 May, 2015 Major depressive disorder, recurrent episode, mild 296.31 ; Attention deficit disorder of childhood without mention of hyperactivity 314.00 and Generalized anxiety disorder 300.02 [facility] [id number] [place] [address]24[address]- 4600 03 May, 2015 Hypertension 401.9 and Hypokalemia 276.8 [facility] [id number] [place] [address]65- 9147 May, [facility] [id number] [place] [address] 98706- 9795 Apr, [facility] [id number] [place] [address] 37764- 2555 Apr, [facility] [id number], [place] [address] 9802 Apr, [facility] [id number] [place] [address] 350652- 5382 Apr, [facility] [id number] [place] [address] 21842- 0525 Mar, [facility] [id number] [place] [address] 75972- 9282 Mar, [facility] [id number] [place] [address] 61473- 2677 Mar, [facility] [id number] [place] [address] 81786- 8310 Mar, [facility] [id number] [place] [address] 19535- 3588 Mar, Arthritis of both knees 716.96 ; Hepatitis B 070.30 ; Hypertension 401.9 ; Carpal tunnel syndrome 354.0 and Cubital tunnel syndrome 354.2 [facility] [address], [place] [address] 2994 Mar, [facility] [address], [place] [address] 5893 Mar, [facility] [address], [place] [address] 7738 Mar, 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, chronic, without mention of hepatitis delta 070.32 ; Chronic hepatitis C without mention of hepatic coma 070.54 and Major depressive disorder, recurrent episode, moderate 296.32 [facility] [address], [place] [address] 18[address] Jan, [facility] [address], [place] [address] 9286 Jan, Major depressive disorder, recurrent episode, mild 296.31 and Attention deficit disorder of childhood without mention of hyperactivity 314.00 [facility] [address] [facility] [id number], [place] [address] 2111 11 Jan, 2015 [facility] [address] [facility] [id number] 2744 Jan, [facility] [address] [facility] [id number], [place] [address] 2456 December, Attention deficit disorder of childhood without mention of hyperactivity 314.00 ; Major depressive disorder, recurrent episode, mild 296.31 and Generalized anxiety disorder 300.02 [facility] [address] [facility] [id number], [place] [address]- 5005 December, [facility] [address] [facility] [id number], [place] [address]- 1377 14 Dec, 2014 [facility] [address], [place] [address]- 8390 Dec, [facility] [id number], [place] [address]- 4827 19 Oct, 2014 [facility] [address], [place] [address]- 0913 19 Oct, 2014 [facility] [address] [id number], [place] [address]- 3792 18 Oct, 2014 [facility] [address], [place] [address]- 4274 18 Oct, 2014 [facility] [id number], [place] [address]- 9362 18 Oct, 2014 [facility] [address] [id number], [place] [address]- 4575 18 Oct, 2014 [facility] [address] [id number] 1671 16 Oct, 2014 [facility] [id number] 0667 13 Oct, 2014 [facility] [address], [place] [address]- 9453 13 Oct, 2014 [facility] [place] [facility] [address] [id number] [place] [address]- 9364 12 Oct, 2014 [facility] [place] [facility] [address] [facility] [id number] [place] 5108 12 Oct, 2014 [facility] [place] [facility] [address] [facility] [id number] [place] [address]- 2416 10 Oct, 2014 [facility] [place] [facility] [address] [facility] [id number] [place] [address]- 8291 10 Oct, 2014 [facility] [place] [facility] [address] [facility] [id number] [place] [address]- 1614 Oct, [facility] [place] [facility] [address] [facility] [id number] [place] [address]- 1018 05 Oct, 2014 [facility] [place] [facility] [address] [id number] [address]- 8457 Oct, 2014 [facility] [place] [facility] [address] [facility] [id number] [place] [address]- 8320 Oct, 2014 [facility] [place] [facility] [address] [id number] [address]- 3313 25 Oct, 2014 [facility] [place] [facility] [address] [facility] [id number] [place] [address]- 1802 Oct, 2014 [facility] [place] [facility] [address] [id number] [address]- 9033 18 Oct, 2014 [facility] [place] [facility] [address] [facility] [id number], [place] [address]- 9495 17 Oct, 2014 [facility] [place] [facility] [address] [facility] [id number] [place] [address]- 6770 Oct, 2014 [facility] [place] [facility] [address] [facility] [id number], [place] [address]- 9502 Oct, 2014 [facility] [place] [facility] [address] [facility] [id number], [place] [address]- 3196 11 Oct, 2014 [facility] [place] [facility] [address] [id number] [place] [address]- 9885 Oct, [facility] [place] [facility] [address] [id number] [place] [address]- 5168 Oct, [facility] [place] [facility] [address] [id number] [place] [address]- 4793 Oct, [facility] [place] [facility] [address] [id number] [place] [address]- 0883 Oct, [facility] [place] [facility] [address] [id number] [place] [address]- 2387 Sep, [facility] [place] [facility] [address] [id number] [place] [address]- 5776 Sep, [facility] [place] [facility] [address] [id number] [place] [address]- 5592 Sep, [facility] [place] [facility] [address] [id number] [place] [address]- 7637 Sep, [facility] [place] [facility] [address] [id number] [place] [address]- 0339 Sep, [facility] [place] [facility] [address] [id number] [place] [address]- 0172 Sep, [facility] [place] [facility] [address] [id number], [place] [address]- 8332 Sep, [facility] [place] [facility] [address] [id number], [place] [address]- 6437 Sep, [facility] [place] [facility] [address] [id number] [place] [address]- 4689 Sep, [facility] [place] [facility] [address] [id number] [place] [address]- 7364 Sep, [facility] [place] [facility] [address] [id number] [place] [address]- 1332 Sep, [facility] [place] [facility] [address] [id number] [place] [address]- 5432 Sep, [facility] [address] [id number] [place] [address]- 5810 Sep, [facility] [place] [facility] [address] [id number] [place] [address]- 9823 Sep, [facility] [address] [id number] [place] [address]- 6312 Sep, [facility] [place] [facility] [address] [id number] [place] [address]- 9456 Sep, [facility] [address] [id number] [place] [address]- 3863 Aug, [facility] [place] [facility] [address] [id number] [place] [address]- 1451 Aug, [facility] [address] [id number] [place] [address]- 7415 Aug, [facility] [place] [facility] [address] [id number] [place] [address]- 3037 Aug, [facility] [place] [facility] [address] [id number] [place] [address]- 8878 Aug, [facility] [place] [facility] [address] [id number] [place] [address]- 0417 Aug, [facility] [place] [facility] [address] [id number] [place] [address]- 6704 Aug, [facility] [place] [facility] [address] [id number] [place] [address]- 1666 Aug, [facility] [place] [facility] [address] [id number] [place] [address]- 4417 Aug, [facility] [place] [facility] [address] [id number] [place] [address]- 4206 Aug, [facility] [place] [facility] [address] [id number] [place] 5009 Aug, [facility] [place] [facility] [address] [id number] [place] [address]- 6883 16 Aug, 2014 [facility] [place] [facility] [address] [id number] [place] [address]- 8661 16 Aug, 2014 [facility] [place] [facility] [address] [id number] [place] [address]- 7120 15 Aug, 2014 [facility] [place] [facility] [address] [id number] [place] [address]- 4377 15 Aug, 2014 [facility] [place] [facility] [address] [id number] [place] [address]- 9981 10 Aug, 2014 [facility] [place] [facility] [address] [id number] [place] [address]- 1635 Aug, [facility] [place] [facility] [address] [id number] [place] [address]- 1207 Aug, [facility] [place] [facility] [address] [id number] [place] [address]- 0487 Aug, [facility] [place] [facility] [address] [id number] [place] [address]- 7468 Aug, [facility] [place] [facility] [address] [id number] [place] [address]- 0439 04 Aug, 2014 [facility] [place] [facility] [address] [id number] [place] [address]- 6716 04 Aug, 2014 [facility] [place] [facility] [address] [id number] [place] [address]- 5271 Aug, [facility] [place] [facility] [address] [id number] [place] [address]- 9739 Aug, [facility] [place] [facility] [address] [id number] [place] [address]- 0764 Aug, [facility] [place] [facility] [address] [id number] [place] [address]- 3027 Jul, [facility] [place] [facility] [address] [id number], [place] [address]- 1101 Jul, [facility] [place] [facility] [address] [id number] [place] [address]- 5416 Jul, [facility] [place] [facility] [address] [id number] [place] [address]- 7260 Jul, [facility] [place] [facility] [address] [id number] [place] [address]- 0091 Jul, [facility] [place] [facility] [address] [id number] [place] [address]- 8075 Jul, [facility] [place] [facility] [address] [id number] [place] [address]- 8659 Jun, [facility] [place] [facility] [address] [id number] [place] [address]- 4908 Jun, [facility] [place] [facility] [address] [id number] [place] [address]- 5375 Jun, [facility] [place] [facility] [address] [id number] [place] [address]- 9069 Jun, [facility] [place] [facility] [address] [id number] [place] [address]- 8963 Jun, [facility] [place] [facility] [address] [id number] [place] [address]- 7002 Jun, [facility] [place] [facility] [address] [id number], [place] [address]- 7626 Jun, [facility] [place] [facility] [address] [id number], [place] [address]- 7527 Jun, [facility] [place] [facility] [address] [id number] [place] [address]- 5406 16 May, 2014 [facility] [place] [facility] [address] [id number] [place] [address]- 8913 16 May, 2014 [facility] [place] [facility] [address] [id number] [place] [address]- 0675 15 May, 2014 [facility] [place] [facility] [address] [id number] [place] [address]- 1546 15 May, 2013 [facility] [place] [facility] [address] [id number] [place] [address]- 0333 08 May, 2014 [facility] [place] [facility] [address] [id number] [place] [address]- 2750 May, [facility] [place] [facility] [address] [id number] [place] [address]- 4195 May, [facility] [place] [facility] [address] [id number] [place] [address]- 3148 May, [facility] [place] [facility] [address] [id number] [place] [address]- 6457 Apr, [facility] [place] [facility] [address] [id number] [place] [address]- 8891 Apr, [facility] [place] [facility] [address] [id number] [place] [address]- 9333 Apr, [facility] [place] [facility] [address] [id number] [place] [address]- 6838 Apr, [facility] [place] [facility] [address] [id number] [place] [address]- 5624 Apr, [facility] [place] [facility] [address] [id number] [place] [address]- 1334 Apr, [facility] [place] [facility] [address] [id number] [place] [address]- 2544 Apr, [facility] [place] [facility] [address] [id number] [place] [address]- 2542 Apr, [facility] [place] [facility] [address] [id number] [place] [address]- 6769 Apr, [facility] [place] [facility] [address] [id number] [place] [address]- 2545 Apr, [facility] [place] [facility] [address] [id number] [place] [address]- 1202 Apr, [facility] [place] [facility] [address] [id number] [place] [address]- 6409 Apr, [facility] [place] [facility] [address] [id number] [place] [address]- 5693 Apr, [facility] [place] [facility] [address] [id number] [place] [address]- 1528 Mar, [facility] [place] [facility] [address] [id number] [place] [address]- 8677 Mar, [facility] [place] [facility] [address] [id number] [place] [address]- 2484 Mar, [facility] [place] [facility] [address] [id number] [place] [address]- 9526 Mar, [facility] [place] [facility] [address] [id number] [place] [address]- 8370 Jan, [facility] [place] [facility] [address] [id number] [place] [address]- 9141 Jan, [facility] [place] [facility] [address] [id number] [place] [address]- 3861 December, [facility] [place] [facility] [address] [id number] [place] [address]- 0291 December, [facility] [place] [facility] [address] [id number] [place] [address]- 0938 December, [facility] [place] [facility] [address] [id number] [place] [address]- 2600 December, [facility] [place] [facility] [address] [id number] [place] [address]- 2836 December, [facility] [place] [facility] [address] [id number] [place] [address]- 7339 December, [facility] [place] [facility] [address] [id number] [place] [address]- 9759 December, [facility] [place] [facility] [address] [id number], [place] [address]- 6293 December, [facility] [place] [facility] [address] [id number] [place] [address]- 3217 Dec, [facility] [place] [facility] [address] [id number] [place] [address]- 2866 Dec, [facility] [place] [facility] [address] [facility] [id number] [place] [address]- 8307 Dec, [facility] [place] [facility] [address] [id number] [place] [address]- 9447 Dec, [facility] [place] [facility] [address] [id number] [place] [address]- 6903 Oct, [facility] [place] [facility] [address] [id number] [place] [address]- 2925 Oct, [facility] [place] [facility] [address] [facility] [id number] [place] [address]- 6353 Oct, [facility] [place] [facility] [address] [facility] [id number] [place] [address]- 3069 Oct, [facility] [place] [facility] [address] [facility] [id number] [place] [address]- 6467 Oct, [facility] [place] [facility] [address] [facility] [id number] [place] [address]- 2781 Oct, [facility] [place] [facility] [address] [id number] [place] [address]- 6128 Oct, [facility] [place] [facility] [address] [facility] [id number] [place] [address]- 5351 Oct, [facility] [place] [facility] [address] [id number] [place] [address]- 0394 Oct, [facility] [place] [facility] [address] [id number] [place] [address]- 9018 Oct, [facility] [place] [facility] [address] [facility] [id number] [place] [address]- 8140 Oct, [facility] [place] [facility] [address] [id number] [place] [address]- 4415 Oct, [facility] [place] [facility] [address] [id number] [place] [address]- 7909 Oct, 2013 [facility] [place] [facility] [address] [id number] [place] [address]- 7156 Oct, 2013 [facility] [place] [facility] [address] [id number] [place] [address]- 8576 Oct, [facility] [place] [facility] [address] [id number] [place] [address]- 4313 Oct, [facility] [place] [facility] [address] [id number] [place] [address]- 2369 Oct, [facility] [place] [facility] [address] [id number] [place] [address]- 4703 Oct, [facility] [place] [facility] [address] [id number] [place] [address]- 5317 Oct, [facility] [place] [facility] [address] [id number] [place] [address]- 5278 Oct, [facility] [place] [facility] [address] [id number] [place] [address]- 4486 Oct, [facility] [place] [facility] [address] [id number] [place] [address]- 8177 Oct, [facility] [place] [facility] [address] [id number] [place] [address]- 5743 Sep, [facility] [place] [facility] [address] [id number] [place] [address]- 4898 Sep, [facility] [place] [facility] [address] [id number] [place] [address]- 9320 Sep, [facility] [place] [facility] [address] [id number] [place] [address]- 8625 Sep, [facility] [place] [facility] [address] [id number] [place] [address]- 3220 Aug, [facility] [address] [id number] [place] [address]- 7835 Aug, [facility] [place] [facility] [address] [id number] [place] [address]- 2816 Aug, [facility] [address] [id number] [place] [address]- 9180 Aug, [facility] [place] [facility] [address] [id number] [place] [address]- 0148 Aug, [facility] [address] [id number] [place] [address]- 4510 Aug, [facility] [address] [id number] [place] [address]- 6255 Aug, [facility] [address] [id number] [place] [address]- 4242 Aug, [facility] [address] [id number] [place] [address]- 1131 Aug, [facility] [place] [facility] [address] [id number] [place] [address]- 8495 Jul, [facility] [address] [id number] [place] [address]- 8001 Jul, [facility] [place] [facility] [address] [id number] [place] [address] Jul, [facility] [place] [facility] [address] [id number] [place] [address] Jul, [facility] [place] [facility] [address] [id number] [place] [address] Jul, [facility] [place] [facility] [address] [id number] [place] [address] Jul, [facility] [place] [facility] [address] [id number] [place] [address] Jul, [facility] [place] [facility] [address] [id number] [place] [address] Jul, [facility] [place] [facility] [address] [id number] [place] [address] Jun, [facility] [place] [facility] [address] [id number] [place] [address] Jun, [facility] [place] [facility] [address] [id number] [place] [address] Jun, [facility] [place] [facility] [address] [id number] [place] [address] Jun, [facility] [place] [facility] [address] [id number] [place] [address] Jun, [facility] [place] [facility] [address] [id number] [place] [address] Jun, [facility] [place] [facility] [address] [id number] [place] [address] Jun, [facility] [place] [facility] [address] [id number] [place] [address] Jun, [facility] [place] [facility] [address] [id number] [place] [address] 30 May, 2013 [facility] [place] [facility] [address] [id number] [place] [address] 26 May, 2013 [facility] [place] [facility] [address] [id number], [place] [address] 23 Sep, 2012 [facility] [place] [facility] [address] [id number] [place] [address] 19 May, 2013 [facility] [place] [facility] [address] [id number] [place] [address] 12 May, 2013 [facility] [place] [facility] [address] [id number] [place] [address] 11 May, 2013 [facility] [place] [facility] [address] [id number] [place] [address] Apr, [facility] [place] [facility] [address] [id number] [place] [address] Apr, [facility] [place] [facility] [address] [id number] [place] [address] Apr, [facility] [place] [facility] [address] [id number] [place] [address] Apr, [facility] [place] [facility] [address] [id number] [place] [address] Apr, [facility] [place] [facility] [address] [id number] [place] [address] Apr, [facility] [place] [facility] [address] [id number] [place] [address] Apr, [facility] [place] [facility] [address] [id number] [place] [address] Mar, [facility] [place] [facility] [address] [id number] [place] [address] Mar, [facility] [place] [facility] [address] [id number] [place] [address] Mar, [facility] [place] [facility] [address] [id number] [place] [address] Mar, [facility] [place] [facility] [address] [id number] [place] [address] Mar, [facility] [place] [facility] [address] [id number] [place] [address] Mar, [facility] [place] [facility] [address] [id number] [place] [address] 98[address] Mar, [facility] [place] [facility] [address] [id number] [place] [address] Jan, [facility] [place] [facility] [address] [id number] [place] [address] Jan, [facility] [place] [facility] [address] [id number] [place] [address] 14 Jan, 2013 [facility] [address] [id number] [place] [address] 12 Jan, 2013 [facility] [address] [id number] [place] [address] 12 Jan, 2013 [facility] [address] [id number] [place] [address] Jan, [facility] [address] [id number] [place] [address] 03 Jan, 2013 [facility] [address] [id number] [place] [address] December, [facility] [address] [id number] [place] [address] December, [facility] [address] [id number] [place] [address] December, [facility] [address] [id number] [place] [address] December, [facility] [address] [id number] [place] [address] 30 Dec, 2012 [facility] [address] [id number] [place] [address] Dec, [facility] [address] [id number] [place] [address] Dec, [facility] [address] [id number] [place] [address] 29 Oct, 2012 [facility] [place] [facility] [address] [id number] [place] [address] Oct, [facility] [address] [id number] [place] [address]- 132[address] Oct, [facility] [address] [id number] [place] [address] Oct, [facility] [address] [id number] [place] [address] Oct, [facility] [place] [facility] [address] [id number] [place] [address] Oct, [facility] [place] [facility] [address] [id number] [place] [address] Oct, [facility] [place] [facility] [address] [id number] [place] [address] Oct, [facility] [place] [facility] [address] [id number] [place] [address] Oct, [facility] [place] [facility] [address] [id number] [place] [address]- [address] Oct, [facility] [place] [facility] [address] [id number] [place] [address] Oct, [facility] [place] [facility] [address] [id number] [place] [address]- [address] Sep, [facility] [place] [facility] [address] [id number] [place] [address]- [address] Sep, [facility] [place] [facility] [address] [id number] [place] [address]- [address] Sep, [facility] [place] [facility] [address] [id number] [place] [address]- [address] Aug, [facility] [place] [facility] [address] [id number] [place] [address]- 17[address] Aug, [facility] [place] [facility] [address] [id number] [place] [place] [address] Aug, [facility] [place] [facility] [address] [id number] [place] [address] Aug, [facility] [place] [facility] [address] [id number] [place] [address] Jul, [facility] [place] [facility] [address] [id number] [place] [address] 07 Jul, 2012 [facility] [place] [facility] [address] [id number] [place] [address] Jul, [facility] [place] [facility] [address] [id number] [place] [address] Jul, [facility] [place] [facility] [address] [id number] [place] [address] Jul, [facility] [place] [facility] [address] [id number] [place] [address] 130[address] Jul, [facility] [place] [facility] [address] [id number] [place] [address] Jul, [facility] [place] [facility] [address] [id number] [place] [address] 117[address] Jul, [facility] [place] [facility] [address] [facility] [id number] [place] [address] Jun, [facility] [place] [facility] [address] [id number] [place] [address] Jun, [facility] [place] [facility] [address] [id number] [place] [address] Jun, [facility] [place] [facility] [address] [facility] [id number] [place] [address] 3465 Jun, [facility] [place] [facility] [address] [id number] [place] [address] 85[address] Jun, [facility] [place] [facility] [address] [id number] [place] [address] 26 May, 2012 [facility] [place] [facility] [address] [id number] [place] [address]27 20 Sep2011 [facility] [place] [facility] [address] [facility] [id number] [place] [address] 18 Sep2011 [facility] [place] [facility] [address] [id number] [place] [address] May, [facility] [place] [facility] [address] [id number] [place] [address] May, [facility] [place] [facility] [address] [id number] [place] [address] Apr, [facility] [place] [facility] [address] [id number] [place] [address] Apr, [facility] [place] [facility] [address] [id number] [place] [address] 8810 Apr, [facility] [place] [facility] [address] [id number] [place] [address] Apr, [facility] [place] [facility] [address] [id number] [place] [address] Apr, [facility] [place] [facility] [address] [id number] [place] [address] 3499 Apr, [facility] [place] [facility] [address] [id number] [place] [address] Apr, [facility] [place] [facility] [address] [id number] [place] [address] Mar, [facility] [place] [facility] [address] [id number] [place] [address] Mar, [facility] [place] [facility] [address] [id number] [place] [address] Mar, [facility] [place] [facility] [address] [id number] [place] [address] 7[address] Mar, [facility] [place] [facility] [address] [id number] [place] [address] Jan, [facility] [place] [facility] [address] [id number] [place] [address] Jan, [facility] [place] [facility] [address] [id number] [place] [address] Jan, [facility] [place] [facility] [address] [id number] [place] [address] 25[address] Jan, [facility] [place] [facility] [address] [id number] [place] [address] Jan, [facility] [place] [facility] [address] [id number] [place] [address] Jan, [facility] [place] [facility] [address] [id number] [place] [address]186 December, [facility] [place] [facility] [address] [id number] [place] [address] 8085 December, [facility] [place] [facility] [address] [id number] [place] [address] December, [facility] [place] [facility] [address] [id number] [place] [address] December, [facility] [place] [facility] [address] [id number] [place] [address] Dec, [facility] [place] [facility] [address] [id number] [place] [address] 6173 Dec, [facility] [place] [facility] [address] [id number] [place] [address] 4943 Oct, [facility] [place] [facility] [address] [id number] [place] [address]279 Oct, [facility] [place] [facility] [address] [id number] [place] [address] 7574 Oct, [facility] [place] [facility] [address] [id number] [place] [address]187 16 Nov, 2011 [facility] [place] [facility] [address] [id number] [place] [address] 07 Nov, 2011 [facility] [place] [facility] [address] [id number] [place] [address] 1484 06 Nov, 2011 [facility] [place] [facility] [address] [id number] [place] [address] 3217 05 Nov, 2011 [facility] [place] [facility] [address] [id number] [place] [address] 2546 Oct, [facility] [address] [id number] [place] [address] 2666 Oct, [facility] [place] [facility] [address] [id number] [place] [address] 7206 Oct, [facility] [address] [id number] [place] [address]- 8596 Oct, [facility] [address] [id number] [place] [address] 8013 Sep, [facility] [address] [id number] [place] [address] 4[address] Sep, [facility] [address] [id number] [place] [address] 1414 Sep, [facility] [address] [id number] [place] [address]- 9287 Sep, [facility] [address] [id number] [place] [address]- 3163 Sep, [facility] [address] [id number] [place] [address]- 5057 Sep, [facility] [address] [id number] [place] [address]- 9893 Sep, [facility] [address] [id number] [place] [address]- 5476 Sep, [facility] [address] [id number] [place] [address]- 6537 Aug, [facility] [place] [facility] [address] [id number] [place] [address]- 6566 Aug, [facility] [place] [facility] [address] [id number] [place] [address]- 2546 Aug, [facility] [place] [facility] [address] [id number] [place] [address] 29 Jul, 2011 [facility] [place] [facility] [address] [id number] [place] [address]- 9946 28 Jul, 2011 [facility] [place] [facility] [address] [id number] [place] [address]- 4978 18 Jul, 2011 [facility] [place] [facility] [address] [id number] [place] [address]- 2813 17 Jul, 2011 [facility] [place] [facility] [address] [id number] [place] [address]- 5748 08 Jul, 2011 [facility] [place] [facility] [address] [id number] [place] [address]- 8902 Jul, [facility] [place] [facility] [address] [id number] [place] [address]- 0229 31 Jun, 2011 [facility] [place] [facility] [address] [id number] [place] [address]- 7308 Jun, [facility] [place] [facility] [address] [id number] [place] [address]- 4567 Mar, [facility] [place] [facility] [address] [id number] [place] [address]- 2213 14 Dec, 2010 [facility] [place] [facility] [address] [id number] [place] [address]- 1566 14 Oct, 2010 [facility] [place] [facility] [address] [id number], [place] [address]28 06 Aug, 2010 [facility] [place] [facility] [address] [id number], [place] [address] 2506 30 Jul, 2010 [facility] [place] [facility] [address] [id number] [place] [address]- 2388 Jul, [facility] [place] [facility] [address] [id number] [place] [address]- 1999 Jul, [facility] [place] [facility] [address] [id number] [place] [address]- 9560 Jul, [facility] [place] [facility] [id number] [place] [address] 08 Jul, 2010 [facility] [id number] [place] [address] 4731 22 Aug, 2009 [facility] [id number] [place] [address] 8318 15 Aug, 2009 [facility] [id number] [address] 4[address] 14 Aug, 2009 [facility] [id number] [place] [address] 67[address] Aug, [facility] [id number] [place] [address]- 2332 17 Jul, 2009 [facility] [id number] [place] [address]- 1486 Jul, [facility] [id number] [place] [address]- 2338 Jul, [facility] [id number], [place] [address] 5178 Jul, [facility] [id number] [place] [address]61 Jun, [facility] [id number], [place] [address] 9900 Jun, IMMUNIZATIONS No Known Immunizations SOCIAL HISTORY Never Assessed REASON FOR VISIT Pain management (chronic), sores in mouth, Needs Ameritox, pt states she is unable to void, has not been taking hydrocodone, states is does not work and does not wish to continue--DBennettRTao PLAN OF CARE Activity Details Follow Up 6 Months Reason:back pain VITAL SIGNS Height 64 in 2017-09-04 Weight 210 lbs 2017-09-04 Temperature 98.3 degrees Fahrenheit 2017-09-04 Heart Rate 70 bpm 2017-09-04 Respiratory Rate 20 2017-09-04 BMI 36.04 kg/m2 2017-09-04 Blood pressure systolic 144 mmHg 2017-09-04 Blood pressure diastolic 90 mmHg 2017-09-04 MEDICATIONS Medication Instructions Dosage Frequency Start Date End Date Duration Status Loratadine 10 mg Orally Once a day as needed for allergies 1 tablet Apr, Active Fish Oil 1000 MG Orally 3 times a day 1 capsule 8h Active Folic Acid 1 MG Orally Once a day 1 tablet 24h December, December, 90 days Active Toprol XL 100 MG Orally Once a day 1 tablet at bedtime 24h 90 Active Pantoprazole Sodium 40 MG Orally Once a day 1 tablet 24h 90 Active Doxepin HCl 25 MG Orally Once a day 1-2 capsules at bedtime 24h 30 days Active Lidocaine 5 % Externally 4 times a day Apply 2 grams to affected area as needed 6h Apr, 90 days Active Requip 1 MG Orally 3 times a day 1 tablet 8h 90 days Active Pravastatin Sodium 80 MG TAKE ONE TABLET BY MOUTH AT BEDTIME (AVOID GRAPEFRUIT JUICE AND PRODUCTS WITH GRAPEFRUIT) 90 Active Magic Mouthwash 5ml 4 times a day Swish and spit qid 6h Sep, Sep, 14 days Active Effexor XR 150 MG Orally Once a day 2 capsule with food 24h Active Levothyroxine Sodium 100 MCG Orally Once a day 1 tablet 24h 30 Active Baclofen 20 mg Orally 2 times a day 1 tablet with food or milk 12h Jul, Sep, 30 day(s) Active RESULTS No Results PROCEDURES Procedure Date Ordered Result Body Site [facility] VISIT ESTABLISHED PATIENT Sep 04, 2017 INSTRUCTIONS MEDICATIONS ADMINISTERED No Known Medications MEDICAL (GENERAL) HISTORY Type Description Date Medical [...] Hospitalization History Denies any past psychiatric hospitalization. Hospitalization History [facility]- High BP 09/27/2017
--- OUTSIDE RECORDS SUMMARY | 2018-03-17 11:00 | XMS REPORT ---
Author Author 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 [facility] Address [address] [place] [address] Care Team Providers Care Manager Wind Name Role Phone 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 Unavailable PROBLEMS Type Condition ICD9-CM Code [id number] Code Onset Dates Condition Status SNOMED Code Problem 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 Active 41845235 Problem Attention-deficit hyperactivity disorder, predominantly inattentive type F90.0 Active 38198241 Problem Obstructive sleep apnea G47.33 Active 63868712 Problem Primary insomnia F51.01 Active 5768315 Problem Neuralgia M79.2 Active 99413287 Problem Cannabis use disorder, mild, abuse F12.10 Active 86572882 Problem Folic acid deficiency E53.8 Active 949621965 Problem Restless legs G25.81 Active 29638586 Problem Major depressive disorder, recurrent, mild F33.0 Active 41231385 Problem Generalized anxiety disorder F41.1 Active 54611183 Problem Major depressive disorder, recurrent episode, moderate F33.1 Active 810645192 Problem Hypertension I10 Active 86184534 Problem Hyperlipidemia E78.5 Active 70794235 Problem Primary osteoarthritis of both knees M17.0 Active 731354920 Problem Chronic hepatitis K73.9 Active 40314237 Problem Low back pain M54.5 Active 076455914 Problem Chronic viral hepatitis B without delta-agent B18.1 Active 789005817 Problem Insomnia G47.00 Active 110178011 Problem Hypothyroid E03.9 Active 12063052 Problem Depression, major, recurrent, mild F33.0 Active 144985438 Problem Obesity due to excess calories, unspecified obesity severity E66.09 Active 725209124 ALLERGIES No Information ENCOUNTERS Encounter Location Date Diagnosis [facility] [address] [facility] [id number] [address] December, [facility] [address] [facility] [id number] [address] Dec, [facility] [id number] [place] [address] 24930- 9580 Oct, [facility] [address] [address]- [address] Oct, Syncope, unspecified syncope type R55 ; Primary insomnia F51.01 ; Dry mouth R68.2 and Cannabis use disorder, mild, abuse F12.10 [facility] [address] [address]- [address]95 Oct, [facility] [id number] [place] [address] 27388- 6153 Sep, [facility] [address] 46420- 4562 Sep, [facility] [address] 39145- 4908 Sep, [facility] [address] [id number] Sep, Dental examination Z01.20 [facility] [id number] [place] [address] 38565- 6664 Sep, Dental examination Z01.20 [facility] [id number] [place] [address] 34369- 1992 Sep, Sinus congestion R09.81 ; Mouth sores K13.79 ; Low back pain M54.5 and Mouth swelling R22.0 [facility] [id number] [place] [address] 24711- 9870 Aug, Low back pain M54.5 [facility] [id number] [place] [address] 77081- 1457 Aug, Low back pain M54.5 [facility] [id number] [place] [address] 59793- 3650 Jul, [facility] [id number] [place] [address] 34011- 6577 Jul, Encounter for immunization Z23 ; 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 ; Hypothyroid E03.9 ; Decreased renal function N28.9 and Muscle cramps R25.2 [facility] [address] 19615- 5369 Jul, [facility] [address] 86280- 3944 Jul, [facility] [address] 10371- 0194 Jul, [facility] [address] 02615- 9712 Jul, Major depressive disorder, recurrent, mild F33.0 [facility] [address] 81576- 2442 Jul, Acquired cyst of kidney N28.1 ; Acidosis E87.2 and Hyperkalemia E87.5 [facility] [address] 92681- 2787 Jul, Major depressive disorder, recurrent, mild F33.0 ; Attention -deficit hyperactivity disorder, predominantly inattentive type F90.0 and Generalized anxiety disorder F41.1 [facility] [address] 53627- 6165 Jul, Low back pain M54.5 [facility] [address] [place] [address] 41365- 5287 Jun, Cough R05 ; Low back pain M54.5 and Pre-syncope R55 [facility] [address] 52495- 8745 Jun, Low back pain M54.5 [facility] [address] [id number] Jun, Dental caries K02.9 [facility] [address] [place] [address] 46441- 7234 Jun, [facility] [id number] [place] [address] 14031- 6140 Jun, Major depressive disorder, recurrent, mild F33.0 ; Attention -deficit hyperactivity disorder, predominantly inattentive type F90.0 and Generalized anxiety disorder F41.1 [facility] [id number] [place] [address] 93133- 1962 May, Vertigo R42 ; Confusion R41.0 ; Weakness R53.1 and Vision changes H53.9 [facility] [id number] [place] [address] 65025- 2949 May, [facility] [address] 53786- 8178 May, [facility] [id number] [place] [address] 58194- 8781 May, Low back pain M54.5 [facility] [address] 66112- 6645 05 May, 2017 Major depressive disorder, recurrent, mild F33.0 ; Attention -deficit hyperactivity disorder, predominantly inattentive type F90.0 and Generalized anxiety disorder F41.1 [facility] [id number] [place] [address] 86826- 9859 May, [facility] [id number] [place] [address] 68214- 3536 May, Acute worsening of stage 3 chronic kidney disease N18.3 [facility] [id number] [place] [address] 62240- 9862 Apr, [facility] [id number] [place] [address] 42593- 3534 Apr, Acute allergic rhinitis due to pollen, unspecified seasonality J30.1 ; Restless legs G25.81 and Low back pain M54.5 [facility] [id number] [place] [address] 10651- 6501 Apr, Primary osteoarthritis of both knees M17.0 [facility] [id number] [place] [address] 86529- 5739 Apr, Generalized anxiety disorder F41.1 [facility] [id number] [place] [address] Apr, Major depressive disorder, recurrent, mild F33.0 ; Attention -deficit hyperactivity disorder, predominantly inattentive type F90.0 and Generalized anxiety disorder F41.1 [facility] [id number] [place] [address] 60224- 8227 Apr, [facility] [id number] [place] [address] 46362- 0853 Mar, Major depressive disorder, recurrent episode, moderate F33.1 ; Generalized anxiety disorder F41.1 and ADHD, predominantly inattentive type F90.0 [facility] [id number] [place] [address] 98963 -3939 Mar, Abscess L02.91 [facility] [id number] [place] [address] 61543- 3579 Mar, 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 [facility] [address] 17661- 4320 Mar, Decreased renal function N28.9 [facility] [id number] [place] [address] [id number] Mar, Dental examination Z01.20 [facility] [id number] [place] [address] 89794- 7988 Mar, 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 [facility] [id number] [place] [address] 89640- 1999 Mar, 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 [facility] [address] [id number] Mar, Dental examination Z01.20 and Dental caries K02.9 [facility] [id number] [place] [address] 06895- 6045 Mar, Chronic viral hepatitis B without delta-agent B18.1 ; Folic acid deficiency E53.8 ; 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 and Decreased renal function N28.9 [facility] [id number] [place] [address] 92164- 0941 Mar, Major depressive disorder, recurrent, mild F33.0 [facility] [id number] [place] [address] 13902- 6890 Mar, [facility] [id number] [place] [address] 55727- 3617 Mar, Chronic hepatitis K73.9 ; 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 ; Localized edema R60.0 ; Illicit drug use F19.90 ; Vision changes H53.9 and Obesity due to excess calories, unspecified obesity severity E66.09 [facility] [id number] [place] [address] 93913- 0635 13 Jan, 2017 Major depressive disorder, recurrent, mild F33.0 [facility] [id number] [place] [address] 36405- 0406 Jan, Chronic viral hepatitis B without delta-agent B18.1 [facility] [id number] [place] [address] 70305- 8152 Jan, [facility] [id number] [place] [address] 66708- 3481 Jan, Weight gain R63.5 ; Hypothyroid E03.9 ; 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 ; Decreased renal function N28.9 and Chronic viral hepatitis B without delta-agent B18.1 [facility] [id number] [place] [address] 94646- 9093 December, Major depressive disorder, recurrent, mild F33.0 and Generalized anxiety disorder F41.1 [facility] [id number] [place] [address] 09105- 0745 December, Obesity due to excess calories, unspecified obesity severity E66.09 and Folic acid deficiency E53.8 [facility] [id number] [place] [address] 57213- 9390 December, Folic acid deficiency E53.8 [facility] [address] [address]- 6226 December, Folic acid deficiency E53.8 [facility] [id number] [place] [address] 67056- 2467 December, Obesity due to excess calories, unspecified obesity severity E66.09 [facility] [id number] [place] [address] 15374- 7830 December, [facility] [id number] [place] [address] 17065- 1833 December, Folic acid deficiency E53.8 [facility] [id number] [place] [address] [id number] December, Encounter for other administrative examinations Z02.89 [facility] [id number] [place] [address] 11127- 0771 Dec, [facility] [id number] [place] [address] [id number] Dec, Dental caries K02.9 [facility] [id number] [place] [address] 09477- 0097 Oct, Bone pain M89.8X9 [facility] [id number] [place] [address] 02531- 7255 Oct, Hypothyroid E03.9 [facility] [id number] [place] [address] 37365- 2997 24 Oct, 2016 Hypothyroid E03.9 [facility] [id number] [place] [address] 10178- 3830 13 Oct, 2016 Breast cancer screening Z12.39 [facility] [id number] [place] [address] [id number] Oct, 2016 Dental examination Z01.20 [facility] [id number] [place] [address] 11804- 9442 Oct, [facility] [id number] [place] [address] 46380- 8606 Oct, Major depressive disorder, recurrent, mild F33.0 and Generalized anxiety disorder F41.1 [facility] [address] [place] [address] 09692- 2334 Oct, [facility] [id number] [place] [address] 42841- 1126 Oct, Hypothyroid E03.9 [facility] [id number] [place] [address] 29423- 1879 Sep, Hypothyroid E03.9 ; Chronic viral hepatitis B without delta- agent B18.1 and Folic acid deficiency E53.8 [facility] [id number] [place] [address] 70587- 7430 Sep, Hypothyroidism, unspecified type E03.9 ; Elevated parathyroid hormone E34.9 and Chronic viral hepatitis B without delta-agent B18.1 [facility] [id number] [place] [address] 06180- 6195 Sep, [facility] [id number] [place] [address] 62325- 5888 Sep, Elevated parathyroid hormone E34.9 [facility] [id number] [place] [address] 66067- 7787 Sep, [facility] [id number] [place] [address] 18756- 6750 Sep, Chronic hepatitis K73.9 ; Bone pain M89.8X9 and Abnormal complete blood count R79.89 [facility] [id number] [place] [address] 43062- 8477 Aug, Major depressive disorder, recurrent, mild F33.0 [facility] [address] [place] [address] 67094- 3759 15 Aug, 2016 Bone pain M89.8X9 [facility] [id number] [place] [address] 79651- 0098 Aug, [facility] [address] 11511- 4007 Jul, Chronic viral hepatitis B without delta-agent B18.1 [facility] [address] 55562- 3792 Jul, Hypothyroidism, unspecified type E03.9 [facility] [address] 41657- 3114 Jul, [facility] [facility] [address] 68870- 7658 Jul, Chronic hepatitis K73.9 and Hypothyroid E03.9 [facility] [address] 46236- 1924 Jul, Low back pain M54.5 [facility] [address] 59253- 1113 Jun, Depression, major, recurrent, mild F33.0 and ADD (attention deficit disorder) F90.0 [facility] [address] 81232- 4734 Jun, [facility] [address] 28488- 5418 Jun, Low back pain M54.5 [facility] [address] 14834- 3887 Jun, Encounter for immunization Z23 ; Major depressive disorder, recurrent, mild F33.0 and Attention-deficit hyperactivity disorder, predominantly inattentive type F90.0 [facility] [facility] [address] 32419- 6985 Jun, [facility] [facility] [address] 40525- 3756 Jun, Low back pain M54.5 [facility] [address] 15610- 9581 May, 2015 [facility] [id number] [place] [address] 46261- 2758 29 May, 2015 [facility] [id number] [place] [address] 48860- 2096 29 May, 2015 Essential (primary) hypertension I10 [facility] [id number] [place] [address] 96019- 7330 19 May, 2015 Low back pain M54.5 [facility] [id number] [place] [address] 52954- 1166 12 May, 2016 Low back pain M54.5 ; Chronic hepatitis K73.9 and Hypothyroid E03.9 [facility] [id number] [place] [address] 58558- 5429 09 May, 2016 Hypothyroidism, unspecified type E03.9 [facility] [id number] [place] [address] 16624- 1392 08 May, 2015 Low back pain M54.5 [facility] [id number] [place] [address] 23676- 3327 07 May, 2016 [facility] [id number] [place] [address] 13987- 4333 06 May, 2015 [facility] [id number] [place] [address] 86112- 8298 May, Major depressive disorder, recurrent, moderate F33.1 ; Generalized anxiety disorder F41.1 ; Insomnia G47.00 and ADD (attention deficit disorder) F90.0 [facility] [id number] [place] [address] 43161- 7989 Apr, Low back pain M54.5 [facility] [id number] [place] [address] 24792- 7710 Apr, [facility] [id number] [place] [address] 24633- 1395 Apr, Low back pain M54.5 [facility] [id number] [place] [address] 63351- 7009 Apr, Low back pain M54.5 ; Tooth pain K08.8 and Seasonal allergic rhinitis due to pollen J30.1 [facility] [id number] [place] [address] 94922- 3110 Apr, Low back pain M54.5 [facility] [address] 94769- 5864 Apr, [facility] Pap smear of vagina R87.622 [place] [address] 29910- 1680 Apr, Low back pain M54.5 [facility] [address] 71929- 6909 Mar, [facility] [address] 37736- 5434 Mar, Low back pain M54.5 [facility] [id number] [place] [address] 68007- 2646 Mar, Encounter for Papanicolaou smear for cervical cancer screening Z12.4 ; Encounter for routine gynecological examination Z01.419 and Breast cancer screening Z12.39 [facility] [id number] [place] [address] 81571- 0582 18 Mar, 2016 Hypothyroidism, unspecified type E03.9 [facility] [id number] [place] [address] 01334- 0337 14 Mar, 2016 Low back pain M54.5 ; Other chronic pain G89.29 ; Hypothyroid E03.9 and Hypothyroidism, unspecified type E03.9 [facility] [facility] [address] 82187- 1169 Mar, Major depressive disorder, recurrent, moderate F33.1 and Attention-deficit hyperactivity disorder, predominantly inattentive type F90.0 [facility] [id number] [place] [address] 16688 -2069 Mar, Bronchitis J40 [facility] [id number] [place] [address] 84505- 2898 Jan, [facility] [id number] [place] [address] 44787- 2245 Jan, [facility] [id number] [place] [address] 27693- 9033 Jan, Insomnia G47.00 [facility] [id number] [place] [address] 73574- 8173 December, [facility] [id number] [place] [address] 82463- 8302 December, Major depressive disorder in partial remission F32.4 and Attention-deficit hyperactivity disorder, unspecified type F90.9 [facility] [id number] [place] [address] 22272- 0910 December, [facility] [id number] [place] [address] 90262- 0305 December, [facility] [id number] [place] [address] 00156- 4696 Dec, [facility] [id number] [place] [address] 58033- 7533 Dec, Major depressive disorder, recurrent episode, moderate 296.32 and Attention deficit disorder of childhood without mention of hyperactivity 314.00 [facility] [id number] [place] [address] 29668- 3585 Dec, Major depressive disorder, recurrent episode, mild 296.31 ; ADD (attention deficit disorder) F90.0 and Hyperlipidemia E78.5 [facility] [id number] [place] [address] 29659- 7441 Dec, Insomnia G47.00 [facility] [id number] [place] [address] 88298- 2154 Dec, Attention-deficit hyperactivity disorder, predominantly inattentive type F90.0 [facility] [address] [address]- 2494 Oct, Restless legs syndrome G25.81 [facility] [id number] [place] [address] 19160- 5274 Oct, Hypothyroidism, unspecified type E03.9 [facility] [address] [address]- 3137 Oct, [facility] [id number] [place] [address] 13403- 6911 Oct, [facility] [id number] [place] [address] 31591- 6180 15 Nov, 2015 Hypothyroid E03.9 and Chronic hepatitis K73.9 [facility] [id number] [place] [address] 14513- 8396 14 Nov, 2015 [facility] [id number] [place] [address] [id number]- [phone] Oct, Restless legs syndrome G25.81 ; Chronic hepatitis K73.9 ; Hypertension I10 ; Hypothyroid E03.9 and Breast cancer screening Z12.39 [facility] [id number] [address] Oct, [facility] [id number] [place] [address] Oct, [facility] [id number] [address] Oct, [facility] [id number], [place] [address] Oct, [facility] [id number] [place] [address] 48160- 3438 Oct, [facility] [id number] [address] Oct, [facility] [id number] [place] [address] [id number]- [phone] Oct, [facility] [id number] [place] [address] [phone]- 7886 Sep, [facility] [id number] [place] [address] [id number]- [phone] Sep, Attention-deficit hyperactivity disorder, predominantly inattentive type F90.0 and Major depressive disorder in partial remission F32.4 [facility] [id number] [place] [address] [id number]- 0641 Sep, [facility] [id number] [place] [address] 89770- 4904 Aug, [facility] [id number] [place] [address] [id number]- 5424 Aug, [facility] [id number] [place] [address] 90836- 3819 Aug, Major depressive disorder, recurrent, mild F33.0 ; Attention -deficit hyperactivity disorder, unspecified type F90.9 and Generalized anxiety disorder F41.1 [facility] [id number] [place] [address] 76898- 6227 Aug, Chronic hepatitis K73.9 ; Primary osteoarthritis of both knees M17.0 and Neuralgia M79.2 [facility] [id number], [place] [address] 6346 Jul, [facility] [id number] [place] [address] 84066- 2485 Jul, [facility] [id number] [place] [address] 89862- 3044 Jul, [facility] [id number] [place] [address] 88722- 2353 Jul, [facility] [id number] [place] [address] 82863- 8964 Jun, [facility] [id number] [place] [address] 23644- 6167 Jun, Encounter for immunization Z23 and Bronchitis J40 [facility] [id number] [place] [address] 00554- 9870 30 May, 2015 [facility] [address] 47465- 1082 May, [facility] [id number] [place] [address] 16960- 1859 May, [facility] [address] 24215- 2740 May, Hypokalemia 276.8 [facility] [address] 08463- 4014 08 May, 2015 Major depressive disorder, recurrent episode, mild 296.31 ; Attention deficit disorder of childhood without mention of hyperactivity 314.00 and Generalized anxiety disorder 300.02 [facility] [address] 86754- 6137 May, Hypertension 401.9 and Hypokalemia 276.8 [facility] [id number] [place] [address] 73736- 0994 May, [facility] [id number] [place] [address] 17491- 4759 Apr, [facility] [id number] [place] [address] 16187- 0133 Apr, [facility] [id number] [place] [address] 66624- 1634 Apr, [facility] [id number] [place] [address] 49065- 4208 Apr, [facility] [id number] [place] [address] 05862- 6914 Mar, [facility] [id number] [place] [address] 11226- 3973 Mar, [facility] [id number] [place] [address] 27858- 5627 Mar, [facility] [id number] [place] [address] 97338- 4482 Mar, [facility] [id number] [place] [address] [id number] 2219 Mar, Arthritis of both knees 716.96 ; Hepatitis B 070.30 ; Hypertension 401.9 ; Carpal tunnel syndrome 354.0 and Cubital tunnel syndrome 354.2 [facility] [id number] [place] [address] 86610- 4529 Mar, [facility] [id number] [place] [address] 07936- 9297 Mar, [facility] [id number] [place] [address] 46900- 8676 Mar, 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, chronic, without mention of hepatitis delta 070.32 ; Chronic hepatitis C without mention of hepatic coma 070.54 and Major depressive disorder, recurrent episode, moderate 296.32 [facility] [id number] [place] [address] 47140- 9041 Jan, [facility] [id number] [place] [address] 14319- 0547 Jan, Major depressive disorder, recurrent episode, mild 296.31 and Attention deficit disorder of childhood without mention of hyperactivity 314.00 [facility] [address] [address]- 5430 Jan, [facility] [id number] [place] [address] 63622- 8020 Jan, [facility] [id number] [place] [address] 35261- 3512 December, Attention deficit disorder of childhood without mention of hyperactivity 314.00 ; Major depressive disorder, recurrent episode, mild 296.31 and Generalized anxiety disorder 300.02 [facility] [id number] [place] [address] 76875- 3077 December, [facility] [place] [facility] [address] [id number] [place] [address]- 7186 14 Dec, 2014 [facility] [place] [facility] [address] [id number] [place] [address]- 2727 13 Dec, 2014 [facility] [place] [facility] [address] [id number] [place] [address]- 0790 19 Oct, 2014 [facility] [place] [facility] [address] [id number] [place] [address]- 9024 19 Oct, 2014 [facility] [place] [facility] [address] [id number] [place] [address]- 0186 18 Oct, 2014 [facility] [place] [facility] [address] [id number] [place] [address]- 9093 18 Oct, 2014 [facility] [place] [facility] [address] [id number] [place] [address]- 3706 18 Oct, 2014 [facility] [place] [facility] [address] [id number] [place] [address]- 5377 18 Oct, 2014 [facility] [place] [facility] [address] [id number] [place] [address]- 5812 16 Oct, 2014 [facility] [place] [facility] [address] [id number] [place] [address]- 2320 13 Oct, 2014 [facility] [place] [facility] [address] [id number] [place] [address]- 2978 13 Oct, 2014 [facility] [place] [facility] [address] [id number], [place] [address]- 0942 12 Oct, 2014 [facility] [place] [facility] [address] [id number] [place] [address]- 6667 12 Oct, 2014 [facility] [place] [facility] [address] [id number] [place] [address]- 5735 10 Oct, 2014 [facility] [place] [facility] [address] [id number], [place] [address]- 4979 10 Oct, 2014 [facility] [place] [facility] [address] [id number], [place] [address]- 7251 Oct, 2014 [facility] [place] [facility] [address] [id number] [place] [address]- 5722 Oct, 2014 [facility] [place] [facility] [address] [facility] [id number] [place] [address]- 7316 Oct, 2014 [facility] [place] [facility] [address] [facility] [id number] [place] [address]- 5416 Oct, 2014 [facility] [place] [facility] [address] [facility] [id number] [place] [address]- 5627 25 Oct, 2014 [facility] [place] [facility] [address] [facility] [id number] [place] [address]- 0141 Oct, 2014 [facility] [place] [facility] [address] [id number] [place] [address]- 1149 18 Oct, 2014 [facility] [place] [facility] [address] [id number] [place] [address]- 0562 17 Oct, 2014 [facility] [place] [facility] [address] [facility] [id number] [place] [address]- 6976 17 Oct, 2014 [facility] [place] [facility] [address] [id number] [place] [address]- 1688 11 Oct, 2014 [facility] [place] [facility] [address] [id number] [place] [address]- 7077 11 Oct, 2014 [facility] [place] [facility] [address] [facility] [id number] [place] [address]- 2543 11 Oct, 2014 [facility] [place] [facility] [address] [facility] [id number] [place] [address]- 2544 11 Oct, 2014 [facility] [place] [facility] [address] [facility] [id number] [place] [address]- 7326 10 Oct, 2014 [facility] [place] [facility] [address] [facility] [id number], [place] [address]- 2546 10 Oct, 2014 [facility] [place] [facility] [address] [facility] [id number], [place] [address]- 3954 Sep, [facility] [place] [facility] [address] [id number] [place] [address]- 1562 Sep, [facility] [place] [facility] [address] [id number] [place] [address]- 8038 Sep, [facility] [place] [facility] [address] [id number] [place] [address]- 5279 Sep, [facility] [place] [facility] [address] [id number] [place] [address]- 8613 Sep, [facility] [place] [facility] [address] [id number] [place] [address]- 1968 Sep, [facility] [place] [facility] [address] [id number] [place] [address]- 1112 Sep, [facility] [place] [facility] [address] [id number] [place] [address]- 1646 Sep, [facility] [place] [facility] [address] [id number], [place] [address]- 6491 Sep, [facility] [place] [facility] [address] [id number] [place] [address]- 9711 Sep, [facility] [place] [facility] [address] [id number] [place] [address]- 5820 Sep, [facility] [place] [facility] [address] [id number], [place] [address]- 5267 Sep, [facility] [place] [facility] [address] [id number], [place] [address]- 0528 Sep, [facility] [place] [facility] [address] [id number], [place] [address]- 9226 Sep, [facility] [place] [facility] [address] [id number], [place] [address]- 0952 Sep, [facility] [place] [facility] [address] [id number], [place] [address]- 5522 Sep, [facility] [place] [facility] [address] [id number] [place] [address]- 2357 Aug, [facility] [place] [facility] [address] [id number] [place] [address]- 8166 Aug, [facility] [place] [facility] [address] [id number] [place] [address]- 2306 Aug, [facility] [place] [facility] [address] [id number] [place] [address]- 7866 Aug, [facility] [place] [facility] [address] [id number] [place] [address]- 4017 Aug, [facility] [place] [facility] [address] [id number] [place] [address]- 9051 Aug, [facility] [place] [facility] [address] [id number] [place] [address]- 1584 Aug, [facility] [place] [facility] [address] [id number] [place] [address]- 7034 Aug, [facility] [place] [facility] [address] [id number] [place] [address]- 6397 19 Aug, 2014 [facility] [place] [facility] [address] [id number] [place] [address]- 9609 18 Aug, 2014 [facility] [place] [facility] [address] [id number] [place] [address]- 9132 18 Aug, 2014 [facility] [place] [facility] [address] [id number] [place] [address]- 2766 16 Aug, 2014 [facility] [place] [facility] [address] [id number] [place] [address]- 4373 16 Aug, 2014 [facility] [place] [facility] [address] [id number] [place] [address]- 0474 15 Aug, 2014 [facility] [place] [facility] [address] [id number] [place] [address]- 0826 15 Aug, 2014 [facility] [place] [facility] [address] [id number] [place] [address]- 1855 Aug, [facility] [place] [facility] [address] [id number] [place] [address]- 4161 Aug, [facility] [place] [facility] [address] [id number] [place] [address]- 0657 Aug, [facility] [place] [facility] [address] [id number] [place] [address]- 8134 Aug, [facility] [place] [facility] [address] [id number] [place] [address]- 3424 Aug, [facility] [place] [facility] [address] [id number] [place] [address]- 9654 Aug, [facility] [place] [facility] [address] [id number] [place] [address]- 1562 Aug, [facility] [place] [facility] [address] [id number] [place] [address]- 3586 Aug, [facility] [place] [facility] [address] [id number] [place] [address]- 6185 Aug, [facility] [place] [facility] [address] [id number] [place] [address]- 1842 Aug, [facility] [place] [facility] [address] [id number] [place] [address]- 7887 Jul, [facility] [place] [facility] [address] [id number] [place] [address]- 4474 Jul, [facility] [place] [facility] [address] [id number] [place] [address]- 6556 Jul, [facility] [place] [facility] [address] [id number] [place] [address]- 5802 Jul, [facility] [place] [facility] [address] [id number] [place] [address]- 6885 Jul, [facility] [place] [facility] [address] [id number] [place] [address]- 9160 Jul, [facility] [place] [facility] [address] [id number], [place] [address]- 4433 Jun, [facility] [place] [facility] [address] [id number] [place] [address]- 9281 Jun, [facility] [place] [facility] [address] [id number] [place] [address]- 1107 Jun, [facility] [place] [facility] [address] [id number] [place] [address]- 2208 Jun, [facility] [place] [facility] [address] [id number] [place] [address]- 5671 Jun, [facility] [place] [facility] [address] [id number] [place] [address]- 5760 Jun, [facility] [place] [facility] [address] [id number] [place] [address]- 2445 Jun, [facility] [place] [facility] [address] [id number] [place] [address]- 8117 Jun, [facility] [place] [facility] [address] [id number] [place] [address]- 4546 16 May, 2013 [facility] [place] [facility] [address] [id number] [place] [address]- 3744 16 Sep, 2013 [facility] [place] [facility] [address] [id number] [place] [address]- 6230 15 May, 2013 [facility] [place] [facility] [address] [id number], [place] [address]- 1633 15 Sep, 2013 [facility] [place] [facility] [address] [id number], [place] [address]- 9156 08 Sep, 2013 [facility] [place] [facility] [address] [id number] [place] [address]- 3428 08 Sep, 2013 [facility] [place] [facility] [address] [id number] [place] [address]- 7684 08 Sep, 2013 [facility] [place] [facility] [address] [id number] [place] [address]- 5692 08 Sep, 2013 [facility] [place] [facility] [address] [id number] [place] [address]- 4083 Apr, [facility] [place] [facility] [address] [id number] [place] [address]- 5442 Apr, [facility] [place] [facility] [address] [id number] [place] [address]- 4125 Apr, [facility] [place] [facility] [address] [id number] [place] [address]- 3867 Apr, [facility] [place] [facility] [address] [id number] [place] [address]- 0502 Apr, [facility] [place] [facility] [address] [id number] [place] [address]- 1325 Apr, [facility] [place] [facility] [address] [id number] [place] [address]- 2312 Apr, [facility] [place] [facility] [address] [id number] [place] [address]- 3586 Apr, [facility] [place] [facility] [address] [id number] [place] [address]- 3636 Apr, [facility] [place] [facility] [address] [id number] [place] [address]- 8523 Apr, [facility] [place] [facility] [address] [id number] [place] [address]- 4990 Apr, [facility] [place] [facility] [address] [id number] [place] [address]- 3024 Apr, [facility] [place] [facility] [address] [id number] [place] [address]- 1365 Apr, [facility] [place] [facility] [address] [id number] [place] [address]- 2244 Mar, [facility] [place] [facility] [address] [id number] [place] [address]- 1352 Mar, [facility] [place] [facility] [address] [id number] [place] [address]- 8895 Mar, [facility] [place] [facility] [address] [id number] [place] [address]- 3228 Mar, [facility] [place] [facility] [address] [id number] [place] [address]- 7786 Jan, [facility] [place] [facility] [address] [id number] [place] [address]- 9723 Jan, [facility] [place] [facility] [address] [id number] [place] [address]- 9364 December, [facility] [place] [facility] [address] [id number] [place] [address]- 7822 December, [facility] [place] [facility] [address] [id number] [place] [address]- 1933 December, [facility] [place] [facility] [address] [id number] [place] [address]- 3540 December, [facility] [place] [facility] [address] [id number] [place] [address]- 6367 December, [facility] [place] [facility] [address] [id number] [place] [address]- 3679 December, [facility] [place] [facility] [address] [id number] [place] [address]- 1379 December, [facility] [place] [facility] [address] [id number] [place] [address]- 0400 December, [facility] [place] [facility] [address] [id number] [place] [address]- 4076 Dec, [facility] [place] [facility] [address] [id number] [place] [address]- 6036 Dec, [facility] [place] [facility] [address] [id number] [place] [address]- 2683 Dec, [facility] [place] [facility] [address] [id number] [place] [address]- 3137 Dec, [facility] [place] [facility] [address] [id number] [place] [address]- 9582 Oct, [facility] [place] [facility] [address] [id number] [place] [address]- 2468 Oct, [facility] [place] [facility] [address] [id number] [place] 3622 Oct, [facility] [place] [facility] [address] [id number] [place] [address]- 2204 Oct, [facility] [place] [facility] [address] [id number] [place] [address]- 2500 Oct, [facility] [place] [facility] [address] [id number] [place] [address]- 9824 Oct, [facility] [place] [facility] [address] [id number] [place] [address]- 9288 Oct, [facility] [place] [facility] [address] [facility] [id number] [place] [address]- 1517 Oct, [facility] [place] [facility] [address] [id number] [place] [address]- 1586 Oct, [facility] [place] [facility] [address] [id number] [place] [address]- 8443 Oct, [facility] [place] [facility] [address] [facility] [id number] [place] [address]- 5743 Oct, [facility] [place] [facility] [address] [facility] [id number] [place] [address]- 3876 Oct, [facility] [place] [facility] [address] [facility] [id number] [place] [address]- 0474 Oct, [facility] [place] [facility] [address] [id number] [place] [address]- 1545 Oct, [facility] [place] [facility] [address] [facility] [id number] [place] [address]- 1001 Oct, [facility] [place] [facility] [address] [facility] [id number] [place] [address]- 8564 Oct, [facility] [place] [facility] [address] [id number] [place] [address]- 0744 Oct, [facility] [place] [facility] [address] [id number] [place] [address]- 2871 Oct, [facility] [place] [facility] [address] [id number] [place] [address] Oct, [facility] [place] [facility] [address] [id number] [place] [address] Oct, [facility] [place] [facility] [address] [id number] [place] [address] Oct, [facility] [place] [facility] [address] [id number] [place] [address] Oct, [facility] [place] [facility] [address] [id number] [place] [address] Sep, [facility] [place] [facility] [address] [id number] [place] [address] Sep, [facility] [place] [facility] [address] [id number] [place] [address] Sep, [facility] [place] [facility] [address] [facility] [id number] [place] [address] Sep, [facility] [place] [facility] [address] [facility] [id number] [place] [address] Aug, [facility] [place] [facility] [address] [id number] [place] [address] Aug, [facility] [place] [facility] [address] [id number] [place] [address] Aug, [facility] [place] [facility] [address] [facility] [id number] [place] [address] Aug, [facility] [place] [facility] [address] [facility] [id number] [place] [address] Aug, [facility] [place] [facility] [address] [id number] [place] [address] Aug, [facility] [address] [id number] [place] [address] Aug, [facility] [address] [id number] [place] [address] Aug, [facility] [address] [id number] [place] [address] Aug, [facility] [address] [id number] [place] [address] Jul, [facility] [address] [id number] [place] [address] Jul, [facility] [address] [id number] [place] [address] Jul, [facility] [address] [id number] [place] [address]- [address] Jul, [facility] [address] [id number] [place] [address] Jul, [facility] [address] [facility] [id number] [place] [address] Jul, [facility] [address] [facility] [id number] [place] [address] Jul, [facility] [place] [facility] [address] [id number] [place] [address] Jul, [facility] [address] [id number] [place] [address] Jun, [facility] [place] [facility] [address] [id number] [place] [address] Jun, [facility] [place] [facility] [address] [facility] [id number] [place] [address]- [address] Jun, [facility] [place] [facility] [address] [id number] [place] [address] Jun, [facility] [place] [facility] [address] [id number] [place] [address]- [address] Jun, [facility] [place] [facility] [address] [id number] [place] [address]- [address] Jun, [facility] [place] [facility] [address] [id number] [place] [address]- 67[address] Jun, [facility] [place] [facility] [address] [id number] [place] [address] Jun, [facility] [place] [facility] [address] [id number] [place] [address]- [address] 30 May, 2013 [facility] [place] [facility] [address] [id number] [place] [address]- [address] 26 May, 2013 [facility] [place] [facility] [address] [id number] [place] [address]- [address] 23 May, 2013 [facility] [place] [facility] [address] [id number] [place] [address] 19 May, 2013 [facility] [place] [facility] [address] [id number] [place] [address] May, [facility] [place] [facility] [address] [id number], [place] [address] May, [facility] [place] [facility] [address] [id number], [place] [address] Apr, [facility] [place] [facility] [address] [id number], [place] [address] Apr, [facility] [place] [facility] [address] [id number] [place] [address]- [address] Apr, [facility] [place] [facility] [address] [id number], [place] [address] Apr, [facility] [place] [facility] [address] [id number], [place] [address]- [address] Apr, [facility] [place] [facility] [address] [id number], [place] [address] Apr, [facility] [place] [facility] [address] [id number] [place] [address]- [address] Apr, [facility] [place] [facility] [address] [id number] [place] [address] Mar, [facility] [place] [facility] [address] [id number] [place] [address]- [address] Mar, [facility] [place] [facility] [address] [id number] [place] [address]- [address]284 Mar, [facility] [place] [facility] [address] [id number] [place] [address]- [address] Mar, [facility] [place] [facility] [address] [id number] [place] [address]- [address] Mar, [facility] [place] [facility] [address] [id number] [place] [address]- 409[address] Mar, [facility] [place] [facility] [address] [id number] [place] [address]- [address] Mar, [facility] [place] [facility] [address] [id number] [place] [address]- [address] Jan, [facility] [place] [facility] [address] [id number] [place] [address] Jan, [facility] [place] [facility] [address] [id number] [place] [address]- [address] Jan, [facility] [place] [facility] [address] [id number] [place] [address]- [address] Jan, [facility] [place] [facility] [address] [id number] [place] [address]- [address] Jan, [facility] [place] [facility] [address] [id number] [place] [address]- 9658 Jan, [facility] [place] [facility] [address] [id number] [place] [address] Jan, [facility] [place] [facility] [address] [id number] [place] [address] 79[address] December, [facility] [address] [id number] [place] [address] December, [facility] [address] [id number] [place] [address] December, [facility] [address] [id number] [place] [address] December, [facility] [address] [id number] [place] [address] 30 Dec, 2012 [facility] [address] [id number] [place] [address] Dec, [facility] [address] [id number] [place] [address] Dec, [facility] [address] [id number] [place] [address] 0[address] Oct, [facility] [address] [id number] [place] [address]137 Oct, [facility] [address] [id number] [place] [address] Oct, [facility] [address] [id number] [place] [address] 7851 Oct, [facility] [address] [id number] [place] [address]378 Oct, [facility] [address] [id number] [place] [address] 2329 Oct, [facility] [place] [facility] [address] [id number] [place] [address] Oct, [facility] [place] [facility] [address] [id number] [place] [address]43 Oct, [facility] [place] [facility] [address] [id number] [place] [address] Oct, [facility] [place] [facility] [address] [id number] [place] [address] 378[address] Oct, [facility] [place] [facility] [address] [id number] [place] [address]- 4665 Oct, [facility] [place] [facility] [address] [facility] [id number] [place] [address] 90[address] Sep, [facility] [place] [facility] [address] [id number] [place] [address]- 5773 Sep, [facility] [place] [facility] [address] [id number] [place] [address] 1749 Sep, [facility] [place] [facility] [address] [facility] [id number] [place] [address] 6103 Aug, [facility] [place] [facility] [address] [facility] [id number] [place] [address] 99[address] Aug, [facility] [place] [facility] [address] [id number] [place] [address]143 Aug, [facility] [place] [facility] [address] [id number] [place] [address] 4148 Aug, [facility] [place] [facility] [address] [facility] [id number] [place] [address] 4[address] Jul, [facility] [place] [facility] [address] [facility] [id number], [place] [address] Jul, [facility] [place] [facility] [address] [id number], [place] [address] Jul, [facility] [place] [facility] [address] [id number] [place] [address] 8400 Jul, [facility] [place] [facility] [address] [facility] [id number] [place] [address] 9393 Jul, [facility] [place] [facility] [address] [facility] [id number] [place] [address] 0[address] Jul, [facility] [place] [facility] [address] [id number] [place] [address] 0413 Jul, [facility] [place] [facility] [address] [id number] [place] [address] 5964 Jul, [facility] [place] [facility] [address] [id number] [place] [address] 7162 Jun, [facility] [place] [facility] [address] [id number] [place] [address]- 1780 Jun, [facility] [place] [facility] [address] [id number] [place] [address] 9889 Jun, [facility] [place] [facility] [address] [id number] [place] [address]- 1007 Jun, [facility] [place] [facility] [address] [id number] [place] [address]- 8593 Jun, [facility] [place] [facility] [address] [id number] [place] [address]- 9831 26 May, 2012 [facility] [place] [facility] [address] [id number] [place] [address]109 20 May, 2012 [facility] [place] [facility] [address] [id number] [place] [address]- 4356 18 May, 2012 [facility] [place] [facility] [address] [facility] [id number] [place] [address]- 4739 09 May, 2012 [facility] [place] [facility] [address] [id number] [place] [address]- 2545 04 May, 2012 [facility] [place] [facility] [address] [id number] [place] [address]- 3362 30 Apr, 2012 [facility] [place] [facility] [address] [id number] [place] [address]- 9588 29 Apr, 2012 [facility] [place] [facility] [address] [facility] [id number] [place] [address]- 3073 16 Apr, 2012 [facility] [place] [facility] [address] [facility] [id number] [place] [address]- 9616 Apr, [facility] [place] [facility] [address] [id number] [place] [address]- 7636 Apr, [facility] [place] [facility] [address] [id number] [place] [address]- 0587 Apr, [facility] [place] [facility] [address] [id number] [place] [address]- 7704 Apr, [facility] [place] [facility] [address] [id number] [place] [address] 5338 Mar, [facility] [place] [facility] [address] [id number] [place] [address]- 2790 Mar, [facility] [place] [facility] [address] [id number] [place] [address] 8828 Mar, [facility] [place] [facility] [address] [id number] [place] [address]- 6676 Mar, [facility] [place] [facility] [address] [id number] [place] [address]- 9774 Jan, [facility] [place] [facility] [address] [id number] [place] [address]- 9463 Jan, [facility] [place] [facility] [address] [id number] [place] [address]- 9378 Jan, [facility] [place] [facility] [address] [id number] [place] [address]- 5583 Jan, [facility] [place] [facility] [address] [id number] [place] [address]- 6550 Jan, [facility] [place] [facility] [address] [id number] [place] [address]- 3300 Jan, [facility] [place] [facility] [address] [id number] [place] [address]- 6346 December, [facility] [place] [facility] [address] [id number] [place] [address]- 2817 December, [facility] [place] [facility] [address] [id number] [place] [address]- 9811 December, [facility] [address] [id number] [place] [address]- 0112 December, [facility] [place] [facility] [address] [id number] [place] [address]- 4506 Dec, [facility] [place] [facility] [address] [id number] [place] [address]- 4936 Dec, [facility] [place] [facility] [address] [id number] [place] [address]- 3997 30 Nov, 2011 [facility] [place] [facility] [address] [id number] [place] [address]- 3408 Oct, [facility] [place] [facility] [address] [id number] [place] [address]- 8673 Oct, [facility] [address] [id number] [place] [address]- 9768 Oct, [facility] [place] [facility] [address] [facility] [id number] [place] [address]- 7586 Oct, [facility] [address] [facility] [id number] [place] [address]- 2392 Oct, [facility] [place] [facility] [address] [facility] [id number] [place] [address]- 5603 Oct, [facility] [place] [facility] [address] [id number] [place] [address]- 4733 Oct, [facility] [place] [facility] [address] [id number] [place] [address]- 3743 Oct, [facility] [place] [facility] [address] [id number] [place] [address]- 1866 Oct, [facility] [place] [facility] [address] [id number] [place] [address]- 2176 Oct, [facility] [place] [facility] [address] [facility] [id number] [place] [address]- 2634 Sep, [facility] [place] [facility] [address] [id number] [place] [address]- 1825 Sep, [facility] [place] [facility] [address] [id number] [place] [address]- 4050 Sep, [facility] [place] [facility] [address] [id number] [place] [address]- 1789 Sep, [facility] [place] [facility] [address] [id number] [place] [address]- 4896 Sep, [facility] [place] [facility] [address] [id number] [place] [address]- 5542 Sep, [facility] [place] [facility] [address] [id number] [place] [address]- 7756 Sep, [facility] [place] [facility] [address] [id number] [place] [address]- 4051 Sep, [facility] [address] [id number] [place] [address]- 6232 Aug, [facility] [place] [facility] [address] [id number] [place] [address]- 4228 Aug, [facility] [place] [facility] [address] [id number] [place] [address]- 3312 Aug, [facility] [place] [facility] [address] [id number] [place] [address]- 6840 Jul, [facility] [place] [facility] [address] [id number] [place] [address]- 9355 Jul, [facility] [place] [facility] [address] [id number] [place] [address]- 4297 18 Jul, 2011 [facility] [place] [facility] [address] [id number] [place] [address]- 7589 17 Jul, 2011 [facility] [place] [facility] [address] [id number] [place] [address]- 6777 08 Jul, 2011 [facility] [place] [facility] [address] [id number] [place] [address]- 7085 Jul, [facility] [place] [facility] [address] [id number] [place] [address]- 7121 31 Jun, 2011 [facility] [place] [facility] [address] [id number] [place] [address]- 7340 20 Jun, 2011 [facility] [place] [facility] [address] [id number] [place] [address]- 8835 Mar, [facility] [place] [facility] [address] [id number] [place] [address]- 6057 14 Dec, 2010 [facility] [place] [facility] [address] [id number] [place] [address]- 7570 14 Oct, 2010 [facility] [place] [facility] [address] [id number] [place] [address]- 5640 06 Aug, 2010 [facility] [place] [facility] [address] [id number] [place] [address]- 5584 30 Jul, 2010 [facility] [place] [facility] [address] [id number] [place] [address]- 8242 Jul, [facility] [place] [facility] [address] [id number] [place] [address]- 5344 Jul, [facility] [place] [facility] [address] [id number] [place] [address]- 7375 Jul, [facility] [place] [facility] [address] [id number], [place] [address]- 7235 Jul, [facility] [place] [facility] [address] [id number], [place] [address]- 3069 22 Aug, 2009 [facility] [place] [facility] [address] [id number] [place] [address]- 6573 15 Aug, 2009 [facility] [place] [facility] [address] [id number] [place] [address]- 3543 14 Aug, 2009 [facility] [place] [facility] [address] [id number] [place] [address]- 3997 07 Aug, 2009 [facility] [place] [facility] [address] [facility] [id number] [place] [address]43 Jul, [facility] [address] [facility] [id number], [place] [address]- 9933 Jul, [facility] [address] [id number], [place] [address]- 4855 Jul, [facility] [address] [facility] [id number][place] 44[address] Jul, [facility] [address] [facility] [id number], [place] [address]- 3195 Jun, [facility] [address] [facility] [id number], [place] [address]- 3904 Jun, IMMUNIZATIONS No Known Immunizations SOCIAL HISTORY Never Assessed REASON FOR VISIT refer to Nephrology PLAN OF CARE VITAL SIGNS MEDICATIONS Unknown Medications RESULTS No Results PROCEDURES No Known procedures INSTRUCTIONS MEDICATIONS ADMINISTERED No Known Medications MEDICAL [...] Denies any past psychiatric hospitalization. Hospitalization History [facility] High BP 09/27/2017
--- OUTSIDE RECORDS SUMMARY | 2018-03-17 11:01 | XMS REPORT ---
Author Author ADRIANA VARSHA [facility] Address [address] [place] [address] Care Team Providers Care Sat Instructor Name Role Phone ADRIANAVARSHA Unavailable PROBLEMS Type Condition ICD9-CM Code UEX07-CQ Code Onset Dates Condition Status SNOMED Code Problem 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 Active 96765126 Problem Attention-deficit hyperactivity disorder, predominantly inattentive type F90.0 Active 43851778 Problem Obstructive sleep apnea G47.33 Active 09757228 Problem Primary insomnia F51.01 Active 9001322 Problem Neuralgia M79.2 Active 77915368 Problem Cannabis use disorder, mild, abuse F12.10 Active 41016242 Problem Folic acid deficiency E53.8 Active 908505004 Problem Restless legs G25.81 Active 80742528 Problem Major depressive disorder, recurrent, mild F33.0 Active 83448975 Problem Generalized anxiety disorder F41.1 Active 19503181 Problem Major depressive disorder, recurrent episode, moderate F33.1 Active 413786002 Problem Hypertension I10 Active 80093803 Problem Hyperlipidemia E78.5 Active 15961894 Problem Primary osteoarthritis of both knees M17.0 Active 802764730 Problem Chronic hepatitis K73.9 Active 96449377 Problem Low back pain M54.5 Active 448665570 Problem Chronic viral hepatitis B without delta-agent B18.1 Active 124815791 Problem Insomnia G47.00 Active 234248267 Problem Hypothyroid E03.9 Active 54619870 Problem Depression, major, recurrent, mild F33.0 Active 053753361 Problem Obesity due to excess calories, unspecified obesity severity E66.09 Active 883390126 ALLERGIES No Information ENCOUNTERS Encounter Location Date Diagnosis [facility] [address] [facility] [id number] [address] December, [facility] [address] [facility] [id number], [place] [address] December, [facility] [id number] [place] [address] 21277- 9600 Dec, Bone pain M89.8X9 [facility] [address] [address]- [address]69 Dec, [facility] [address] 86416- 4805 Oct, [facility] [address] 6[address]- 5197 Oct, Syncope, unspecified syncope type R55 ; Primary insomnia F51.01 ; Dry mouth R68.2 and Cannabis use disorder, mild, abuse F12.10 [facility] [address] 48954- 2859 Oct, [facility] [address] 19395- 9916 Sep, [facility] [address] 47633- 8397 Sep, [facility] [address] 34224- 8540 Sep, [facility] [address] [id number] Sep, Dental examination Z01.20 [facility] [address] 06282- 2179 Sep, Dental examination Z01.20 [facility] [address] 95364- 1118 Sep, Sinus congestion R09.81 ; Mouth sores K13.79 ; Low back pain M54.5 and Mouth swelling R22.0 [facility] [id number] [place] [address] 37207- 1934 Aug, Low back pain M54.5 [facility] [address] 66811- 9721 Aug, Low back pain M54.5 [facility] [address] 60186- 2429 Jul, [place] [address] [place] [id number]- [address] Jul, 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 ; Encounter for immunization Z23 ; Hypothyroid E03.9 ; Decreased renal function N28.9 and Muscle cramps R25.2 [place] [address] 45298- 8357 Jul, [place] [address] 31436- 6983 Jul, [place] [address] 86086- 6808 Jul, [place] [address] 80735- 0619 Jul, Major depressive disorder, recurrent, mild F33.0 [place] [address] 90158- 1115 Jul, Acquired cyst of kidney N28.1 ; Acidosis E87.2 and Hyperkalemia E87.5 [place] [address] 82470- 1727 Jul, Major depressive disorder, recurrent, mild F33.0 ; Attention -deficit hyperactivity disorder, predominantly inattentive type F90.0 and Generalized anxiety disorder F41.1 [place] [id number] [place] [address] 49470- 8370 Jul, Low back pain M54.[address] 20236- 3969 Jun, Cough R05 ; Low back pain M54.5 and Pre-syncope R55 [address] 29774- 1879 Jun, Low back pain M54.5 [facility] [address] [id number] 04 Jun, 2017 Dental caries K02.9 [facility] [id number] [place] [address] 61424- 3185 04 Jun, 2017 [facility] [id number] [place] [address] 64006- 6421 Jun, Major depressive disorder, recurrent, mild F33.0 ; Attention -deficit hyperactivity disorder, predominantly inattentive type F90.0 and Generalized anxiety disorder F41.1 [facility] [id number] [place] [address] 56840- 3665 13 May, 2017 Vertigo R42 ; Confusion R41.0 ; Weakness R53.1 and Vision changes H53.9 [facility] [id number] [place] [address] 15041- 5605 May, [facility] [id number] [place] [address] 75273- 1341 May, [facility] [id number] [place] [address] 30404- 4104 08 May, 2017 Low back pain M54.5 [facility] [id number] [place] [address] 88317- 7044 05 May, 2017 Major depressive disorder, recurrent, mild F33.0 ; Attention -deficit hyperactivity disorder, predominantly inattentive type F90.0 and Generalized anxiety disorder F41.1 [facility] [address] [place] [address] 69529- 1190 May, [facility] [id number] [place] [address] 56999- 6157 May, Acute worsening of stage 3 chronic kidney disease N18.3 [facility] [address] [place] [address] 50520- 7008 Apr, [facility] [id number] [place] [address] 69068- 4537 Apr, Acute allergic rhinitis due to pollen, unspecified seasonality J30.1 ; Restless legs G25.81 and Low back pain M54.5 [facility] [address] 11781- 5552 10 Apr, 2017 Primary osteoarthritis of both knees M17.0 [facility] [address] 03883- 0416 08 Apr, 2017 Generalized anxiety disorder F41.1 [facility] [address] 88323- 1162 Apr, Major depressive disorder, recurrent, mild F33.0 ; Attention -deficit hyperactivity disorder, predominantly inattentive type F90.0 and Generalized anxiety disorder F41.1 [facility] [address] 35086- 1804 Apr, [facility] [address] 70507- 3329 Mar, Major depressive disorder, recurrent episode, moderate F33.1 ; Generalized anxiety disorder F41.1 and ADHD, predominantly inattentive type F90.0 [facility] [address] [address] -5672 Mar, Abscess L02.91 [facility] [address] 48085- 8526 Mar, 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 [facility] [address] 53991- 2205 Mar, Decreased renal function N28.9 [facility] [address] [id number] Mar, Dental examination Z01.20 [facility] [address] 79179- 8536 17 Mar, 2017 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 [facility] [address] 84984- 7153 Mar, 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 [facility] [address] [place] [id number] 14 Mar, 2017 Dental examination Z01.20 and Dental caries K02.9 [place] [id number] [place] [address] 69033- 5838 12 Mar, 2017 Chronic viral hepatitis B without delta-agent B18.1 ; Folic acid deficiency E53.8 ; 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 and Decreased renal function N28.9 [place] [id number] [place] [address] 68053- 2631 11 Mar, 2017 Major depressive disorder, recurrent, mild F33.0 [place] [id number] [place] [address] 98482- 1780 Mar, [place] [id number] [place] [address] 23208- 4192 Mar, Chronic hepatitis K73.9 ; 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 ; Localized edema R60.0 ; Illicit drug use F19.90 ; Vision changes H53.9 and Obesity due to excess calories, unspecified obesity severity E66.09 [place] [id number] [place] [address] 54932- 4353 Jan, Major depressive disorder, recurrent, mild F33.0 [address] [place] [address] 26909- 0413 Jan, Chronic viral hepatitis B without delta-agent B18.1 [place] [id number] [place] [address] 11625- 3884 Jan, [place] [id number] [place] [address] 81237- 2768 Jan, Weight gain R63.5 ; Hypothyroid E03.9 ; 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 ; Decreased renal function N28.9 and Chronic viral hepatitis B without delta-agent B18.1 [place] [id number] [place] [address] 82919- 5413 December, Major depressive disorder, recurrent, mild F33.0 and Generalized anxiety disorder F41.1 [address] [address] December, Obesity due to excess calories, unspecified obesity severity E66.09 and Folic acid deficiency E53.8 [facility] [address] [place] [address] 13769- 6779 December, Folic acid deficiency E53.8 [facility] [address] [place] [address] 05021- 5412 December, Folic acid deficiency E53.8 [facility] [id number] [place] [address] 10273- 5983 December, Obesity due to excess calories, unspecified obesity severity E66.09 [place] [id number] [place] [address] 65880- 0946 December, [place] [id number] [place] [address] 27532- 8585 December, Folic acid deficiency E53.8 [facility] [id number] [place] [address] [id number] December, Encounter for other administrative examinations Z02.89 [place] [id number] [place] [address] 04217- 2887 Dec, [facility] [id number] [place] [address] [id number] Dec, Dental caries K02.9 [place] [id number] [place] [address] 09388- 8640 Oct, Bone pain M89.8X9 [place] [address] [place] [address] 55581- 1956 Oct, Hypothyroid E03.9 [place] [address] [place] [address] 22730- 5938 24 Oct, 2016 Hypothyroid E03.9 [place] [address] [place] [address] 30087- 1018 13 Oct, 2016 Breast cancer screening Z12.39 [facility] [id number] [id number] 08 Oct, 2016 Dental examination Z01.20 [place] [id number] [place] [address] 23905- 0774 02 Oct, 2016 [place] [address] [place] [address] 24792- 6523 Oct, Major depressive disorder, recurrent, mild F33.0 and Generalized anxiety disorder F41.1 [place] [address] [place] [address] 71203- 0575 Oct, [place] [address] [id number] [place] [address] 24162- 2382 Oct, Hypothyroid E03.9 [place] [address] [id number] [place] [address] 31391- 9096 Sep, Hypothyroid E03.9 ; Chronic viral hepatitis B without delta- agent B18.1 and Folic acid deficiency E53.8 [place] [address] [place] [address] 52288- 5058 Sep, Hypothyroidism, unspecified type E03.9 ; Elevated parathyroid hormone E34.9 and Chronic viral hepatitis B without delta-agent B18.1 [place] [address] [place] [address] 24133- 0388 Sep, [place] [address] [place] [id number] [place] [address] 52120- 1365 Sep, Elevated parathyroid hormone E34.9 [place] [address] [place] [address] 30872- 8840 Sep, [place] [address] [place] [address] [id number] [place] [address] 89882- 0350 Sep, Chronic hepatitis K73.9 ; Bone pain M89.8X9 and Abnormal complete blood count R79.89 [place] [address] [place] [address] [id number] [place] [address] 96743- 0855 Aug, Major depressive disorder, recurrent, mild F33.0 [facility] [id number] [place] [address] 14166- 5307 Aug, Bone pain M89.8X9 [facility] [id number] [place] [address] 38836- 8499 Aug, [facility] [address] 18797- 0762 Jul, Chronic viral hepatitis B without delta-agent B18.1 [place] [address] 82050- 6704 Jul, Hypothyroidism, unspecified type E03.9 [facility] [address] 39358- 2370 Jul, [place] [address] 82347- 3386 Jul, Chronic hepatitis K73.9 and Hypothyroid E03.9 [place] [address] 15353- 0531 Jul, Low back pain M54.5 [place] [address] 39326- 9068 Jun, Depression, major, recurrent, mild F33.0 and ADD (attention deficit disorder) F90.0 [facility] [id number] [place] [address] 84178- 4540 Jun, [facility] [id number] [place] [address] 49873- 8295 Jun, Low back pain M54.5 [facility] [address] 79029- 7554 Jun, Encounter for immunization Z23 ; Major depressive disorder, recurrent, mild F33.0 and Attention-deficit hyperactivity disorder, predominantly inattentive type F90.0 [facility] [address] 06975- 0864 Jun, [facility] [id number] [place] [address] 15376- 7477 Jun, Low back pain M54.5 [facility] [id number] [place] [address] 10705- 2205 May, [facility] [id number] [place] [address] 47434- 1410 May, [facility] [id number] [place] [address] 55000- 6234 May, Essential (primary) hypertension I10 [facility] [address] 75905- 7442 May, Low back pain M54.5 [facility] [id number] [place] [address] 93189- 6392 May, Low back pain M54.5 ; Chronic hepatitis K73.9 and Hypothyroid E03.9 [facility] [id number] [place] [address] 83825- 0499 09 May, 2016 Hypothyroidism, unspecified type E03.9 [facility] [id number] [place] [address] 62088- 8988 08 May, 2016 Low back pain M54.5 [facility] [id number] [place] [address] 07392- 4892 May, [facility] [id number] [place] [address] 39273- 3167 May, [facility] [id number] [place] [address] 46091- 5631 May, Major depressive disorder, recurrent, moderate F33.1 ; Generalized anxiety disorder F41.1 ; Insomnia G47.00 and ADD (attention deficit disorder) F90.0 [facility] [id number] [place] [address] 68442- 7143 Apr, Low back pain M54.5 [facility] [address], [place] [address]- 9739 Apr, [facility] [id number] [place] [address] 52523- 7916 Apr, Low back pain M54.5 [facility] [id number] [place] [address] 48564- 2364 Apr, Low back pain M54.5 ; Tooth pain K08.8 and Seasonal allergic rhinitis due to pollen J30.1 [facility] [id number] [place] [address] 39117- 0592 Apr, Low back pain M54.5 [place] [id number] [place] [address] 46736- 9037 Apr, [facility] Pap smear of vagina R87.622 [place] [id number] [place] [address] 72677- 2253 Apr, Low back pain M54.5 [place] [address] [place] [id number] [place] [address] 82394- 2109 Mar, [place] [id number] [place] [address] 18630- 5953 Mar, Low back pain M54.5 [place] [address] [id number] [place] [address] 39187- 2850 Mar, Encounter for Papanicolaou smear for cervical cancer screening Z12.4 ; Encounter for routine gynecological examination Z01.419 and Breast cancer screening Z12.39 [place] [address] [place] [address] 58113- 7522 18 Mar, 2016 Hypothyroidism, unspecified type E03.9 [place] [address] [id number] [place] [address] 57209- 6325 14 Mar, 2016 Low back pain M54.5 ; Other chronic pain G89.29 ; Hypothyroid E03.9 and Hypothyroidism, unspecified type E03.9 [place] [address] [place] [id number] [place] [address] 08078- 8680 Mar, Major depressive disorder, recurrent, moderate F33.1 and Attention-deficit hyperactivity disorder, predominantly inattentive type F90.0 [facility] [id number] [place] [address] 94191 -8264 Mar, Bronchitis J40 [facility] [id number] [place] [address] 00096- 6528 Jan, [facility] [id number] [place] [address] 01921- 3628 Jan, [place] [address] [place] [id number] [place] [address] 28075- 2336 Jan, Insomnia G47.00 [facility] [id number] [place] [address] 02141- 5112 December, [facility] [id number] [place] [address] 85458- 0563 December, Major depressive disorder in partial remission F32.4 and Attention-deficit hyperactivity disorder, unspecified type F90.9 [facility] [id number] [place] [address] 57921- 9717 December, [facility] [id number] [place] [address] 92842- 9937 December, [facility] [address] [place] [address] 95651- 5016 Dec, [facility] [id number] [place] [address] 72767- 3960 Dec, Major depressive disorder, recurrent episode, moderate 296.32 and Attention deficit disorder of childhood without mention of hyperactivity 314.00 [place] [id number] [place] [address] 11316- 1655 Dec, Major depressive disorder, recurrent episode, mild 296.31 ; ADD (attention deficit disorder) F90.0 and Hyperlipidemia E78.5 [facility] [id number] [place] [address] 40843- 3367 Dec, Insomnia G47.00 [facility] [address] [place] [address] 93998- 9894 Dec, Attention-deficit hyperactivity disorder, predominantly inattentive type F90.0 [facility] [address], [place] [address]- 1138 Oct, Restless legs syndrome G25.81 [facility] [id number] [place] [address] 56691- 0570 Oct, Hypothyroidism, unspecified type E03.9 [facility] [id number] [place] [address] 75161- 2032 Oct, [facility] [id number] [place] [address] 71240- 1990 Oct, [facility] [id number] [place] [address] 26733- 3630 Oct, Hypothyroid E03.9 and Chronic hepatitis K73.9 [facility] [id number] [place] [address] 13698- 6471 Oct, [facility] [id number] [place] [address] 10530- 1158 08 Nov, 2015 Restless legs syndrome G25.81 ; Chronic hepatitis K73.9 ; Hypertension I10 ; Hypothyroid E03.9 and Breast cancer screening Z12.39 [facility] [address] [place] [address] 87724- 2899 Oct, [facility] [address], [place] [address]- 4303 Oct, [facility] [id number] [place] [address] 39919- 6315 Oct, [facility] [address], [place] [address]- 1322 Oct, [facility] [id number] [place] [address] 12356- 0159 Oct, [facility] [address], [place] [address]- 3811 Oct, [facility] [id number] [place] [address] 84596- 2241 Oct, [facility] [id number] [place] [address] 07285- 1920 Sep, [facility] [id number] [place] [address] 56434- 6592 Sep, Attention-deficit hyperactivity disorder, predominantly inattentive type F90.0 and Major depressive disorder in partial remission F32.4 [facility] [id number] [place] [address] 66646- 6513 Sep, [facility] [id number] [place] [address] 67752- 6638 Aug, [facility] [id number] [place] [address] 94688- 4571 Aug, [facility] [address] [place] [address] 24857- 7232 Aug, Major depressive disorder, recurrent, mild F33.0 ; Attention -deficit hyperactivity disorder, unspecified type F90.9 and Generalized anxiety disorder F41.1 [facility] [address] [address]- 1180 08 Aug, 2015 Chronic hepatitis K73.9 ; Primary osteoarthritis of both knees M17.0 and Neuralgia M79.2 [facility] [address] [address]- 5292 Jul, [facility] [id number] [place] [address] 98409- 4033 Jul, [facility] [address] [address]- 6030 Jul, [facility] [id number] [place] [address] 69836- 6067 Jul, [facility] [id number] [place] [address] [phone] Jun, [facility] [id number] [place] [address] [phone] Jun, Bronchitis J40 and Encounter for immunization Z23 [facility] [id number] [place] [address] [phone] 30 May, 2015 [facility] [id number] [place] [address] [phone] 12 May, 2015 [facility] [id number] [place] [address] [id number] [phone] May, [facility] [id number] [place] [address]10- 7419 May, Hypokalemia 276.8 [facility] [id number] [place] [address] 52417- 8761 08 May, 2015 Major depressive disorder, recurrent episode, mild 296.31 ; Attention deficit disorder of childhood without mention of hyperactivity 314.00 and Generalized anxiety disorder 300.02 [facility] [id number] [place] [address] 98250- 5990 May, Hypertension 401.9 and Hypokalemia 276.8 [facility] [id number] [place] [address] 05147- 9895 May, [facility] [id number] [place] [address] 86295- 3495 Apr, [facility] [id number] [place] [address] 61082- 2064 Apr, [facility] [id number] [place] [address] 50228- 2685 Apr, [facility] [id number] [place] [address] 64523- 7584 Apr, [facility] [id number] [address] 5055 Mar, [facility] [id number] [place] [address] 19541- 8770 Mar, [facility] [id number] [address] 6603 Mar, [facility] [id number] [place] [address] 16270- 3532 Mar, [facility] [id number] [place] [address] 13897- 5593 Mar, Arthritis of both knees 716.96 ; Hepatitis B 070.30 ; Hypertension 401.9 ; Carpal tunnel syndrome 354.0 and Cubital tunnel syndrome 354.2 [facility] [id number] [place] [address] 69601- 0442 Mar, [facility] [id number] [place] [address] 47159- 3706 Mar, [facility] [id number] [place] [address] 07561- 2803 Mar, 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, chronic, without mention of hepatitis delta 070.32 ; Chronic hepatitis C without mention of hepatic coma 070.54 and Major depressive disorder, recurrent episode, moderate 296.32 [facility] [id number] [address] 8590 Jan, [facility] [id number] [place] [address] 20763- 0582 Jan, Major depressive disorder, recurrent episode, mild 296.31 and Attention deficit disorder of childhood without mention of hyperactivity 314.00 [facility] [id number] [place] [address] 94507- 3444 Jan, [facility] [id number] [address]- 0646 Jan, [facility] [id number] [place] [address] 47778- 9904 December, Attention deficit disorder of childhood without mention of hyperactivity 314.00 ; Major depressive disorder, recurrent episode, mild 296.31 and Generalized anxiety disorder 300.02 [facility] [address] [facility] [id number] 2561 08 Dec, 2014 [facility] [address] [id number] [address]- 2694 14 Dec, 2014 [facility] [address] [facility] [id number], [place] [address]- 2271 Dec, [facility] [address] [id number] [address]- 0170 19 Oct, 2014 [facility] [address] [id number] [address]- 7893 19 Oct, 2014 [facility] [address] [id number] [address]- 6453 18 Oct, 2014 [facility] [address] [id number] [address]- 8914 18 Oct, 2014 [facility] [address] [id number] [address]- 0722 18 Oct, 2014 [facility] [address] [id number] [address]- 4190 18 Oct, 2014 [facility] [address] [id number] [address]- 9577 16 Oct, 2014 [facility] [address] [id number], [place] [address]- 0814 13 Oct, 2014 [facility] [address] [id number] [address]- 1232 13 Oct, 2014 [facility] [address] [id number] 7378 Oct, [facility] [address] [id number], [place] [address]- 0046 Oct, [facility] [id number] [place] [place] [address]- 7258 10 Oct, 2014 [facility] [place] [facility] [address] [id number] [place] [address]- 8265 10 Oct, 2014 [facility] [place] [facility] [address] [id number] [place] [address]- 0946 05 Oct, 2014 [facility] [place] [facility] [address] [facility] [id number] [place] [address]- 5173 05 Oct, 2014 [facility] [place] [facility] [address] [id number] [place] [address]- 8041 Oct, 2014 [facility] [place] [facility] [address] [facility] [id number] [place] [address]- 7636 Oct, 2014 [facility] [place] [facility] [address] [facility] [id number] [place] [address]- 4045 25 Oct, 2014 [facility] [place] [facility] [address] [facility] [id number] [place] [address]- 9190 19 Oct, 2014 [facility] [place] [facility] [address] [facility] [id number] [place] [address]- 9865 18 Oct, 2014 [facility] [place] [facility] [address] [facility] [id number] [place] [address]- 1866 17 Oct, 2014 [facility] [place] [facility] [address] [facility] [id number] [place] [address]- 3957 17 Oct, 2014 [facility] [place] [facility] [address] [facility] [id number], [place] [address]- 2777 11 Oct, 2014 [facility] [place] [facility] [address] [facility] [id number] [place] [address]- 6810 11 Oct, 2014 [facility] [place] [facility] [address] [facility] [id number] [place] [address]- 2099 11 Oct, 2014 [facility] [place] [facility] [address] [facility] [id number] [place] [address]- 6642 11 Oct, 2014 [facility] [place] [facility] [address] [facility] [id number], [place] [address]- 0940 Oct, [facility] [place] [facility] [address] [id number] [place] [address]- 1024 Oct, [facility] [place] [facility] [address] [id number] [place] [address]- 6175 Sep, [facility] [place] [facility] [address] [id number] [place] [address]- 6640 Sep, [facility] [place] [facility] [address] [id number] [place] [address]- 9790 Sep, [facility] [place] [facility] [address] [id number] [place] [address]- 3878 Sep, [facility] [place] [facility] [address] [id number] [place] [address]- 0227 Sep, [facility] [place] [facility] [address] [id number] [place] [address]- 1833 Sep, [facility] [place] [facility] [address] [id number] [place] [address]- 5659 Sep, [facility] [place] [facility] [address] [id number] [place] [address]- 5439 Sep, [facility] [place] [facility] [address] [id number] [place] [address]- 6833 Sep, [facility] [place] [facility] [address] [id number], [place] [address]- 5793 Sep, [facility] [place] [facility] [address] [id number], [place] [address]- 3363 Sep, [facility] [place] [facility] [address] [id number], [place] [address]- 2268 Sep, [facility] [place] [facility] [address] [id number], [place] [address]- 7797 Sep, [facility] [place] [facility] [address] [id number], [place] [address]- 2701 Sep, [facility] [place] [facility] [address] [id number] [place] [address]- 7722 Sep, [facility] [place] [facility] [address] [id number] [place] [address]- 5039 Sep, [facility] [place] [facility] [address] [id number] [place] 7236 Aug, [facility] [place] [facility] [address] [id number] [place] [address]- 0056 Aug, [facility] [place] [facility] [address] [id number] [place] 4695 Aug, [facility] [place] [facility] [address] [id number] [place] [address]- 8548 Aug, [facility] [place] [facility] [address] [id number] [place] [address]- 2052 Aug, [facility] [place] [facility] [address] [id number] [place] [address]- 5682 Aug, [facility] [place] [facility] [address] [id number] [place] [address]- 6417 Aug, [facility] [place] [facility] [address] [id number] [place] [address]- 1449 Aug, [facility] [place] [facility] [address] [id number] [place] [address]- 0486 19 Aug, 2014 [facility] [place] [facility] [address] [id number] [place] [address]- 9722 18 Aug, 2014 [facility] [place] [facility] [address] [id number] [place] 8038 18 Aug, 2014 [facility] [place] [facility] [address] [id number] [place] [address]- 2876 16 Aug, 2014 [facility] [place] [facility] [address] [id number] [place] [address]- 7236 16 Aug, 2014 [facility] [place] [facility] [address] [id number] [place] [address]- 4618 Aug, [facility] [place] [facility] [address] [id number] [place] [address]- 3277 15 Aug, 2014 [facility] [place] [facility] [address] [id number] [place] [address]- 8962 Aug, [facility] [place] [facility] [address] [id number] [place] [address]- 1329 Aug, [facility] [place] [facility] [address] [id number] [place] [address]- 8960 Aug, [facility] [place] [facility] [address] [id number] [place] [address]- 3781 Aug, [facility] [place] [facility] [address] [id number] [place] [address]- 3335 Aug, [facility] [place] [facility] [address] [id number] [place] [address]- 7106 Aug, [facility] [place] [facility] [address] [id number] [place] [address]- 8252 Aug, [facility] [place] [facility] [address] [id number] [place] [address]- 6546 Aug, [facility] [place] [facility] [address] [id number] [place] [address]- 4499 Aug, [facility] [place] [facility] [address] [id number] [place] [address]- 2706 Aug, [facility] [place] [facility] [address] [id number], [place] [address]- 4838 Jul, [facility] [place] [facility] [address] [id number] [place] [address]- 0661 Jul, [facility] [place] [facility] [address] [id number] [place] [address]- 1451 Jul, [facility] [place] [facility] [address] [id number] [place] [address]- 0494 Jul, [facility] [place] [facility] [address] [id number] [place] [address]- 8783 Jul, [facility] [place] [facility] [address] [id number] [place] [address]- 1761 Jul, [facility] [place] [facility] [address] [id number] [place] [address]- 0014 Jun, [facility] [place] [facility] [address] [id number] [place] [address]- 7858 Jun, [facility] [place] [facility] [address] [id number] [place] [address]- 9271 Jun, [facility] [place] [facility] [address] [id number] [place] [address]- 2596 Jun, [facility] [place] [facility] [address] [id number] [place] [address]- 9197 Jun, [facility] [place] [facility] [address] [id number] [place] [address]- 9344 Jun, [facility] [place] [facility] [address] [id number] [place] [address]- 2661 Jun, [facility] [place] [facility] [address] [id number] [place] [address]- 6042 Jun, [facility] [place] [facility] [address] [facility] [id number] [place] [address]- 1687 16 May, 2013 [facility] [place] [facility] [address] [id number] [place] [address]- 1416 16 May, 2013 [facility] [place] [facility] [address] [id number] [place] [address]- 5220 15 May, 2013 [facility] [place] [facility] [address] [id number] [place] [address]- 0024 15 May, 2013 [facility] [place] [facility] [address] [id number] [place] [address]- 9140 08 Sep, 2013 [facility] [place] [facility] [address] [id number] [place] [address]- 4576 May, [facility] [place] [facility] [address] [id number] [place] [address]- 3661 May, [facility] [place] [facility] [address] [id number] [place] [address]- 7288 May, [facility] [place] [facility] [address] [id number] [place] [address]- 3881 Apr, [facility] [place] [facility] [address] [id number] [place] [address]- 2973 Apr, [facility] [place] [facility] [address] [id number] [place] [address]- 6786 Apr, [facility] [place] [facility] [address] [id number] [place] [address]- 6237 Apr, [facility] [place] [facility] [address] [id number] [place] [address]- 8603 Apr, [facility] [place] [facility] [address] [id number] [place] [address]- 5995 Apr, [facility] [place] [facility] [address] [id number] [place] [address]- 7399 Apr, [facility] [place] [facility] [address] [id number] [place] [address]- 9881 Apr, [facility] [place] [facility] [address] [id number] [place] [address]- 3081 Apr, [facility] [place] [facility] [address] [id number] [place] [address]- 2640 Apr, [facility] [place] [facility] [address] [id number] [place] [address]- 8335 Apr, [facility] [place] [facility] [address] [id number] [place] [address]- 8741 Apr, [facility] [place] [facility] [address] [id number] [place] [address]- 5003 Apr, [facility] [place] [facility] [address] [id number] [place] [address]- 2546 Mar, [facility] [place] [facility] [address] [id number] [place] 1369 Mar, [facility] [place] [facility] [address] [id number] [place] [address]- 2982 Mar, [facility] [place] [facility] [address] [id number] [place] [address]- 4828 Mar, [facility] [place] [facility] [address] [id number] [place] [address]- 6934 Jan, [facility] [place] [facility] [address] [id number] [place] [address]- 8301 Jan, [facility] [place] [facility] [address] [id number] [place] [address]- 1305 December, [facility] [place] [facility] [address] [id number] [place] [address]- 4629 December, [facility] [place] [facility] [address] [id number] [place] [address]- 1108 December, [facility] [place] [facility] [address] [id number] [place] [address]- 6027 December, [facility] [place] [facility] [address] [id number] [place] [address]- 2174 December, [facility] [place] [facility] [address] [id number] [place] [address]- 3159 December, [facility] [place] [facility] [address] [id number] [place] [address]- 2863 December, [facility] [place] [facility] [address] [id number] [place] 5374 December, [facility] [place] [facility] [address] [id number] [place] [address]- 5058 Dec, [facility] [place] [facility] [address] [id number] [place] [address]- 7797 Dec, [facility] [place] [facility] [address] [id number] [place] [address]- 4820 Dec, [facility] [place] [facility] [address] [id number] [place] [address]- 7631 Dec, [facility] [place] [facility] [address] [id number] [place] [address]- 4944 Oct, [facility] [place] [facility] [address] [id number] [place] [address]- 1246 Oct, [facility] [place] [facility] [address] [id number] [place] [address]- 5508 Oct, [facility] [place] [facility] [address] [id number] [place] [address]- 5153 Oct, [facility] [place] [facility] [address] [id number] [place] [address]- 9984 Oct, [facility] [place] [facility] [address] [id number] [place] [address]- 3872 Oct, [facility] [place] [facility] [address] [id number] [place] [address]- 9007 Oct, [facility] [place] [facility] [address] [id number] [place] [address]- 3236 Oct, [facility] [place] [facility] [address] [id number] [place] [address]- 6685 Oct, [facility] [place] [facility] [address] [id number] [place] [address]- 4561 Oct, [facility] [place] [facility] [address] [id number] [place] [address]- 4135 Oct, [facility] [place] [facility] [address] [id number] [place] [address]- 7933 Oct, [facility] [place] [facility] [address] [id number] [place] [address]- 5936 Oct, [facility] [place] [facility] [address] [id number] [place] [address]- 7070 Oct, [facility] [place] [facility] [address] [id number] [place] [address]- 8745 Oct, [facility] [place] [facility] [address] [id number] [place] [address]- 2036 Oct, [facility] [place] [facility] [address] [facility] [id number] [place] [address]- 8986 Oct, [facility] [place] [facility] [address] [id number] [place] [address]- 9126 Oct, 2013 [facility] [place] [facility] [address] [id number] [place] [address]- 7618 Oct, [facility] [place] [facility] [address] [facility] [id number] [place] [address]- 6575 Oct, [facility] [place] [facility] [address] [facility] [id number] [place] [address]- 0823 Oct, [facility] [place] [facility] [address] [facility] [id number] [place] [address]- 9554 Oct, [facility] [place] [facility] [address] [facility] [id number] [place] [address]- 6823 Sep, [facility] [place] [facility] [address] [facility] [id number] [place] [address]- 6681 Sep, [facility] [place] [facility] [address] [facility] [id number] [place] [address]- 3683 Sep, [facility] [place] [facility] [address] [facility] [id number] [place] [address]- 7123 Sep, [facility] [place] [facility] [address] [id number] [place] [address]- 9130 Aug, [facility] [place] [facility] [address] [facility] [id number] [place] [address]- 9077 Aug, [facility] [place] [facility] [address] [facility] [id number] [place] [address]- 7699 Aug, [facility] [place] [facility] [address] [id number] [place] [address]- 0194 Aug, [facility] [place] [facility] [address] [id number] [place] [address]- 3890 Aug, [facility] [place] [facility] [address] [id number] [place] [address]- 6965 Aug, [facility] [place] [facility] [address] [id number] [place] [address]- 1420 Aug, [facility] [place] [facility] [address] [id number] [place] [address]- 4498 Aug, [facility] [place] [facility] [address] [id number] [place] [address]- 1061 Aug, [facility] [place] [facility] [address] [id number] [place] [address]- 6840 Jul, [facility] [place] [facility] [address] [id number] [place] [address]- 8622 Jul, [facility] [place] [facility] [address] [id number] [place] [address]- 8071 Jul, [facility] [place] [facility] [address] [id number] [place] [address]- 9270 Jul, [facility] [place] [facility] [address] [id number] [place] [address]- 8730 Jul, [facility] [place] [facility] [address] [id number] [place] [address]- 7974 Jul, [facility] [place] [facility] [address] [id number] [place] [address]- 1305 Jul, [facility] [place] [facility] [address] [id number] [place] [address] Jul, [facility] [place] [facility] [address] [id number] [place] [address] Jun, [facility] [place] [facility] [address] [id number] [place] [address] Jun, [facility] [place] [facility] [address] [id number] [place] [address] Jun, [facility] [place] [facility] [address] [id number] [place] [address] Jun, [facility] [place] [facility] [address] [id number] [place] [address] Jun, [facility] [place] [facility] [address] [id number] [place] [address] Jun, [facility] [place] [facility] [address] [id number] [place] [address] Jun, [facility] [place] [facility] [address] [id number] [place] [address] Jun, [facility] [place] [facility] [address] [id number] [place] [address] 30 May, 2013 [facility] [place] [facility] [address] [id number] [place] [address] 26 May, 2013 [facility] [place] [facility] [address] [id number] [place] [address] 23 May, 2013 [facility] [place] [facility] [address] [id number] [place] [address] 19 May, 2013 [facility] [place] [facility] [address] [id number], [place] [address] 12 May, 2013 [facility] [place] [facility] [address] [id number], [place] [address] May, [facility] [place] [facility] [address] [id number] [place] [address] Apr, [facility] [place] [facility] [address] [id number] [place] [address] Apr, [facility] [place] [facility] [address] [id number] [place] [address] Apr, [facility] [place] [facility] [address] [id number] [place] [address] Apr, [facility] [address] [id number] [place] [address] Apr, [facility] [place] [facility] [address] [id number] [place] [address] Apr, [facility] [address] [id number] [place] [address] Apr, [facility] [place] [facility] [address] [id number] [place] [address] Mar, [facility] [place] [facility] [address] [id number] [place] [address] Mar, [facility] [address] [id number] [place] [address] Mar[facility] [address] [id number] [place] [address] Mar, [facility] [address] [id number] [place] [address] Mar, [facility] [place] [facility] [address] [id number] [place] [address] Mar, [facility] [address] [id number] [place] [address] Mar, [facility] [place] [facility] [address] [id number] [place] [address] Jan, [facility] [place] [facility] [address] [id number] [place] [address] Jan, [facility] [place] [facility] [address] [id number] [place] [address] Jan, [facility] [place] [facility] [address] [id number] [place] [address] Jan, [facility] [place] [facility] [address] [id number] [place] [address] Jan, [facility] [place] [facility] [address] [id number] [place] [address] Jan, [facility] [address] [id number] [place] [address] Jan, [facility] [address] [id number] [place] [address] December, [facility] [address] [id number] [place] [address] December, [facility] [address] [id number] [place] [address] December, [facility] [address] [id number] [place] [address] December, [facility] [address] [id number] [place] [address] Dec, [facility] [address] [id number] [place] [address] Dec, [facility] [address] [id number] [place] [address] Dec, [facility] [address] [id number] [place] [address] Oct, [facility] [address] [id number] [place] [address] Oct, [facility] [place] [facility] [address] [id number] [place] [address] Oct, [facility] [place] [facility] [address] [id number] [place] [address] Oct, [facility] [place] [facility] [address] [id number] [place] [address] Oct, [facility] [place] [facility] [address] [id number] [place] [address] Oct, [facility] [place] [facility] [address] [id number], [place] [address] Oct, [facility] [address] [id number] [place] [address] Oct, [facility] [place] [facility] [address] [id number] [place] [address]- [address] Oct, [facility] [address] [id number] [place] [address] 08 Oct, 2012 [facility] [place] [facility] [address] [id number] [place] [address] Oct, [facility] [address] [id number] [place] [address] Sep, [facility] [address] [id number] [place] [address] Sep, [facility] [address] [facility] [id number] [place] [address] Sep, [facility] [address] [id number] [place] [address] Aug, [facility] [address] [id number] [place] [place] [address] Aug, [facility] [address] [facility] [id number] [place] [address] Aug, [facility] [address] [facility] [id number] [place] [address] Aug, [facility] [place] [facility] [address] [id number], [place] [address] Jul, [facility] [place] [facility] [address] [id number] [place] [address] Jul, [facility] [place] [facility] [address] [facility] [id number] [place] [address] Jul, [facility] [address] [facility] [id number], [place] [address] Jul, [facility] [place] [facility] [address] [id number] [place] [address] Jul, [facility] [place] [facility] [address] [id number] [place] [address] Jul, [facility] [place] [facility] [address] [id number] [place] [address] Jul, [facility] [place] [facility] [address] [id number] [place] [address] Jul, [facility] [place] [facility] [address] [id number] [place] [address] Jun, [facility] [place] [facility] [address] [id number] [place] [address] Jun, [facility] [place] [facility] [address] [id number] [place] [address] Jun, [facility] [place] [facility] [address] [id number] [place] [address] 94[address] Jun, [facility] [place] [facility] [address] [id number] [place] [address] Jun, [facility] [place] [facility] [address] [id number] [place] [address] May, [facility] [place] [facility] [address] [id number] [place] [address] 24[address] May, [facility] [place] [facility] [address] [id number] [place] [address] 18 May, 2012 [facility] [place] [facility] [address] [id number] [place] [address] 09 May, 2012 [facility] [place] [facility] [address] [id number] [place] [address]- [address] 04 May, 2012 [facility] [place] [facility] [address] [id number] [place] [address]- [address] Apr, [facility] [place] [facility] [address] [id number] [place] [address]- [address] Apr, [facility] [place] [facility] [address] [id number] [place] [address]- 395[address] Apr, [facility] [place] [facility] [address] [id number] [place] [address]- 7[address] Apr, [facility] [place] [facility] [address] [id number] [place] [address] 1768 Apr, [facility] [place] [facility] [address] [id number] [place] [address]- [address] Apr, [facility] [place] [facility] [address] [id number] [place] [address]- 230[address] Apr, [facility] [place] [facility] [address] [id number] [place] [address] 2787 Mar, [facility] [place] [facility] [address] [id number] [place] [address] 39[address] Mar, [facility] [place] [facility] [address] [id number] [place] [address] 96[address] Mar, [facility] [place] [facility] [address] [id number] [place] [address]- 4[address] Mar, [facility] [place] [facility] [address] [id number] [place] [address] Jan, [facility] [place] [facility] [address] [id number] [place] [address] 4[address] Jan, [facility] [place] [facility] [address] [id number] [place] [address] 39[address] Jan, [facility] [place] [facility] [address] [id number] [place] [address]- 67[address] Jan, [facility] [place] [facility] [address] [id number] [place] [address]- 3[address] Jan, [facility] [place] [facility] [address] [id number] [place] [address] Jan, [facility] [place] [facility] [address] [id number] [place] [address] December, [facility] [address] [id number] [place] [address] December, [facility] [address] [id number] [place] [address] December, [facility] [address] [id number] [place] [address] December, [facility] [address] [id number] [place] [address] 8584 Dec, [facility] [address] [id number] [place] [address] Dec, [facility] [address] [id number] [place] [address] Oct, [facility] [address] [id number] [place] [address]- [address]26 Oct, [facility] [address] [id number] [place] [address] 8470 Oct, [facility] [address] [id number] [place] [address]- 4620 16 Nov, 2011 [facility] [address] [facility] [id number] [place] [address] 1475 Oct, [facility] [place] [facility] [address] [id number] [place] [address] 4546 Oct, [facility] [address] [id number] [place] [address]- [address] 05 Nov, 2011 [facility] [place] [facility] [address] [id number] [place] [address]- 1086 Oct, [facility] [place] [facility] [address] [id number] [place] [address]- 0256 Oct, [facility] [address] [id number] [place] [address] 1800 Oct, [facility] [address] [id number] [place] [address]- 4388 Oct, [facility] [place] [facility] [address] [id number] [place] [address]- 0296 Sep, [facility] [place] [facility] [address] [id number] [place] [address]- 3716 Sep, [facility] [place] [facility] [address] [id number] [place] [address]- 9326 Sep, [facility] [place] [facility] [address] [id number] [place] [address]- 9730 Sep, [facility] [place] [facility] [address] [id number] [place] [address]- 5286 Sep, [facility] [place] [facility] [address] [id number] [place] [address]- 1506 Sep, [facility] [place] [facility] [address] [id number] [place] [address]- 0074 Sep, [facility] [place] [facility] [address] [id number] [place] [address]- 2613 Sep, [facility] [place] [facility] [address] [id number] [place] [address]- 7911 Aug, [facility] [place] [facility] [address] [id number] [place] [address]- 4966 Aug, [facility] [place] [facility] [address] [id number] [place] [address]- 3556 Aug, [facility] [place] [facility] [address] [id number] [place] [address]- 9831 Jul, [facility] [place] [facility] [address] [id number] [place] [address]- 4[address] Jul, [facility] [place] [facility] [address] [id number] [place] [address]- 6966 Jul, [facility] [place] [facility] [address] [id number] [place] [address]- 3893 17 Jul, 2011 [facility] [address] [id number] [place] [address]- 1578 08 Jul, 2011 [facility] [place] [facility] [address] [id number] [place] [address]- 9506 02 Jul, 2011 [facility] [place] [facility] [address] [id number] [place] [address]- 1195 31 Jun, 2011 [facility] [place] [facility] [address] [id number] [place] [address]- 6965 Jun, [facility] [place] [facility] [id number] [place] [address], [place] [address]- 2297 Mar, [facility] [place] [facility] [address] [id number] [place] [address]- 6836 14 Dec, 2010 [facility] [address] [id number] [place] [address]- 8549 Oct, [facility] [place] [facility] [address] [id number] [place] [address]- 5886 06 Aug, 2010 [facility] [place] [facility] [address] [id number] [place] [address]- 5827 30 Jul, 2010 [facility] [place] [facility] [address] [facility] [id number] [place] [address]- 1471 11 Jul, 2010 [facility] [place] [facility] [address] [id number] [place] [address]- 0978 10 Jul, 2010 [facility] [place] [facility] [address] [id number] [place] [address]- 6151 09 Jul, 2010 [facility] [place] [facility] [address] [id number] [place] [address]- 0140 08 Jul, 2010 [facility] [place] [facility] [address] [id number] [place] [address]- 7391 22 Aug, 2009 [facility] [place] [facility] [address] [id number] [place] [address]- 3477 15 Aug, 2009 [facility] [place] [facility] [id number] [address] Aug, [facility] [id number] [address] Aug, [facility] [id number], [place] [address] Jul, [facility] [id number], [place] [address]- [address] Jul, [facility] [id number], [place] [address]- [address] Jul, [facility] [id number], [place] [address] Jul, [facility] [id number], [place] [address]- [address] Jun, [facility] [id number], [place] [address] Jun, IMMUNIZATIONS No Known Immunizations SOCIAL HISTORY Never Assessed REASON FOR VISIT med refill PLAN OF CARE VITAL SIGNS MEDICATIONS Medication Instructions Dosage Frequency Start Date End Date Duration Status Doxepin HCl 25 MG Orally Once a day 1-2 capsules at bedtime 24h 30 days Active RESULTS No Results PROCEDURES No [...]
--- OUTSIDE RECORDS SUMMARY | 2018-03-17 11:03 | XMS REPORT ---
Author Author 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 Organization [facility] Address [address] [place] [address] Care Team Providers Care Group Managing Director Name Role Phone 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 Unavailable PROBLEMS Type Condition ICD9-CM Code PGO74-HU Code Onset Dates Condition Status SNOMED Code Problem 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 Active 40139401 Problem Attention-deficit hyperactivity disorder, predominantly inattentive type F90.0 Active 67745214 Problem Obstructive sleep apnea G47.33 Active 40325968 Problem Primary insomnia F51.01 Active 2266751 Problem Neuralgia M79.2 Active 03359382 Problem Cannabis use disorder, mild, abuse F12.10 Active 36899040 Problem Folic acid deficiency E53.8 Active 326425710 Problem Restless legs G25.81 Active 88297162 Problem Major depressive disorder, recurrent, mild F33.0 Active 76375030 Problem Generalized anxiety disorder F41.1 Active 71051663 Problem Major depressive disorder, recurrent episode, moderate F33.1 Active 198731597 Problem Hypertension I10 Active 71936766 Problem Hyperlipidemia E78.5 Active 61220807 Problem Primary osteoarthritis of both knees M17.0 Active 895155045 Problem Chronic hepatitis K73.9 Active 95609306 Problem Low back pain M54.5 Active 307249940 Problem Chronic viral hepatitis B without delta-agent B18.1 Active 714933675 Problem Insomnia G47.00 Active 775443701 Problem Hypothyroid E03.9 Active 80802001 Problem Depression, major, recurrent, mild F33.0 Active 078764412 Problem Obesity due to excess calories, unspecified obesity severity E66.09 Active 243242033 ALLERGIES No Information ENCOUNTERS Encounter Location Date Diagnosis [facility] [address] [facility] [id number] [address] December, [facility] [address] [facility] [id number], [place] [address] December, [facility] [id number] [place] [address] 24064- 5837 Dec, Bone pain M89.8X9 [facility] [id number] [place] [address] 22692- 3037 Dec, [facility] [address] 216[address]- 0043 Oct, [facility] [address] [address]- [address] Oct, Syncope, unspecified syncope type R55 ; Primary insomnia F51.01 ; Dry mouth R68.2 and Cannabis use disorder, mild, abuse F12.10 [facility] [id number] [place] [address] 69122- 8568 Oct, [facility] [address] [address]- 3599 Sep, [facility] [address] 07386- 1539 Sep, [facility] [address] 32169- 1695 Sep, [facility] [id number] [place] [id number] Sep, Dental examination Z01.20 [facility] [address] 41784- 6823 Sep, Dental examination Z01.20 [facility] [id number] [place] [address] 17932- 7144 Sep, Sinus congestion R09.81 ; Mouth sores K13.79 ; Low back pain M54.5 and Mouth swelling R22.0 [facility] [id number] [place] [address] 72468- 9905 Aug, Low back pain M54.5 [facility] [address] 96117- 6418 Aug, Low back pain M54.5 [place] [address] 8[address]- 8738 Jul, [place] [address] [place] 537150- 1758 Jul, 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 ; Encounter for immunization Z23 ; Hypothyroid E03.9 ; Decreased renal function N28.9 and Muscle cramps R25.2 [place] [address] 9[address]84- 9197 Jul, [place] [address] 75663- 4489 Jul, [place] [address] 48321- 5447 Jul, [address] [address]- 0445 Jul, Major depressive disorder, recurrent, mild F33.0 [place] [address] 75246- 7893 Jul, Acquired cyst of kidney N28.1 ; Acidosis E87.2 and Hyperkalemia E87.[address] 34294- 8083 Jul, Major depressive disorder, recurrent, mild F33.0 ; Attention -deficit hyperactivity disorder, predominantly inattentive type F90.0 and Generalized anxiety disorder F41.1 [place] [id number] [place] [address] 72718- 5330 Jul, Low back pain M54.[address] 19232- 5119 Jun, Cough R05 ; Low back pain M54.5 and Pre-syncope R55 [address] 27792- 0346 Jun, Low back pain M54.5 [facility] [address] [id number] 04 Jun, 2017 Dental caries K02.9 [facility] [id number] [place] [address] 39239- 9738 Jun, [facility] [id number] [place] [address] 30733- 9928 Jun, Major depressive disorder, recurrent, mild F33.0 ; Attention -deficit hyperactivity disorder, predominantly inattentive type F90.0 and Generalized anxiety disorder F41.1 [facility] [id number] [place] [address] 86201- 7850 13 May, 2017 Vertigo R42 ; Confusion R41.0 ; Weakness R53.1 and Vision changes H53.9 [facility] [id number] [place] [address] 48934- 0096 May, [facility] [id number] [place] [address] 72747- 9275 May, [facility] [id number] [place] [address] 86090- 9553 08 May, 2017 Low back pain M54.5 [facility] [id number] [place] [address] 56611- 1359 05 May, 2017 Major depressive disorder, recurrent, mild F33.0 ; Attention -deficit hyperactivity disorder, predominantly inattentive type F90.0 and Generalized anxiety disorder F41.1 [facility] [address] [place] [address] 03081- 8378 May, [facility] [id number] [place] [address] 33662- 0879 May, Acute worsening of stage 3 chronic kidney disease N18.3 [facility] [address] [place] [address] 40943- 1114 Apr, [facility] [id number] [place] [address] 09356- 6446 14 Aug, 2017 Acute allergic rhinitis due to pollen, unspecified seasonality J30.1 ; Restless legs G25.81 and Low back pain M54.5 [facility] [address] 38361- 2690 10 Apr, 2017 Primary osteoarthritis of both knees M17.0 [facility] [address] 09133- 4174 Apr, Generalized anxiety disorder F41.1 [facility] [address] 99214- 7768 Apr, Major depressive disorder, recurrent, mild F33.0 ; Attention -deficit hyperactivity disorder, predominantly inattentive type F90.0 and Generalized anxiety disorder F41.1 [facility] [address] 20532- 5133 Apr, [facility] [address] 82708- 8559 Mar, Major depressive disorder, recurrent episode, moderate F33.1 ; Generalized anxiety disorder F41.1 and ADHD, predominantly inattentive type F90.0 [facility] [address] 05250 -9752 Mar, Abscess L02.91 [facility] [address] 34451- 8808 Mar, 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 [facility] [address] 59309- 4017 Mar, Decreased renal function N28.9 [facility] [address] [id number] Mar, Dental examination Z01.20 [facility] [address] 05618- 7736 17 Mar, 2017 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 [facility] [address] 53521- 0131 Mar, 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 [facility] [address] [place] [id number] 14 Mar, 2017 Dental examination Z01.20 and Dental caries K02.9 [place] [id number] [place] [address] 97255- 6912 Mar, Chronic viral hepatitis B without delta-agent B18.1 ; Folic acid deficiency E53.8 ; 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 and Decreased renal function N28.9 [place] [id number] [place] [address] 31885- 0942 Mar, Major depressive disorder, recurrent, mild F33.0 [place] [id number] [place] [address] 49028- 3799 Mar, [place] [id number] [place] [address] 53461- 5529 Mar, Chronic hepatitis K73.9 ; 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 ; Localized edema R60.0 ; Illicit drug use F19.90 ; Vision changes H53.9 and Obesity due to excess calories, unspecified obesity severity E66.09 [place] [id number] [place] [address] 76684- 1999 Jan, Major depressive disorder, recurrent, mild F33.0 [place] [id number] [place] [address] 52543- 0978 Jan, Chronic viral hepatitis B without delta-agent B18.1 [place] [id number] [place] [address] 29196- 0504 Jan, [place] [id number] [place] [address] 51780- 6031 Jan, Weight gain R63.5 ; Hypothyroid E03.9 ; 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 ; Decreased renal function N28.9 and Chronic viral hepatitis B without delta-agent B18.1 [place] [id number] [place] [address] 68065- 3320 December, Major depressive disorder, recurrent, mild F33.0 and Generalized anxiety disorder F41.1 [place] [id number] [address]- 7692 December, Obesity due to excess calories, unspecified obesity severity E66.09 and Folic acid deficiency E53.8 [facility] [address] [place] [address] 51625- 5472 December, Folic acid deficiency E53.8 [facility] [id number] [place] [address] 94215- 6056 December, Folic acid deficiency E53.8 [facility] [address] [place] [address] 78427- 0735 December, Obesity due to excess calories, unspecified obesity severity E66.09 [place] [id number] [place] [address] 85851- 3203 December, [place] [id number] [place] [address] 72146- 9709 December, Folic acid deficiency E53.8 [facility] [id number] [place] [address] [id number] December, Encounter for other administrative examinations Z02.89 [place] [id number] [place] [address] 94429- 4864 Dec, [facility] [id number] [place] [address] [id number] Dec, Dental caries K02.9 [place] [address] [place] [address] 74384- 9139 Oct, Bone pain M89.8X9 [place] [id number] [place] [address] 56747- 9910 Oct, Hypothyroid E03.9 [place] [address] [place] [address] 70085- 2950 24 Oct, 2016 Hypothyroid E03.9 [place] [address] [place] [address] 77585- 4909 13 Mar, 2017 Breast cancer screening Z12.39 [facility] [id number] [id number] 08 Oct, 2016 Dental examination Z01.20 [place] [id number] [place] [address] 08562- 5441 Oct, [place] [id number] [place] [address] 55603- 0098 Oct, Major depressive disorder, recurrent, mild F33.0 and Generalized anxiety disorder F41.1 [place] [address] [place] [address] 99323- 8756 Oct, [place] [id number] [place] [address] 26203- 9272 Oct, Hypothyroid E03.9 [place] [id number] [place] [address] 62034- 4522 Sep, Hypothyroid E03.9 ; Chronic viral hepatitis B without delta- agent B18.1 and Folic acid deficiency E53.8 [place] [address] [place] [address] 40923- 2774 Sep, Hypothyroidism, unspecified type E03.9 ; Elevated parathyroid hormone E34.9 and Chronic viral hepatitis B without delta-agent B18.1 [place] [address] [place] [address] 84901- 0423 Sep, [place] [address] [place] [address] 05867- 0119 Sep, Elevated parathyroid hormone E34.9 [place] [address] [place] [address] 67461- 2780 Sep, [place] [id number] [place] [address] 39981- 8526 Sep, Chronic hepatitis K73.9 ; Bone pain M89.8X9 and Abnormal complete blood count R79.89 [place] [id number] [place] [address] 91541- 0129 Aug, Major depressive disorder, recurrent, mild F33.0 [facility] [id number] [place] [address] 77270- 2337 Aug, Bone pain M89.8X9 [facility] [id number] [place] [address] 84526- 7801 Aug, [facility] [address] 26841- 8775 Jul, Chronic viral hepatitis B without delta-agent B18.1 [place] [address] 04750- 8799 Jul, Hypothyroidism, unspecified type E03.9 [facility] [id number] [place] [address] 36691- 8039 Jul, [place] [address] 30426- 1338 Jul, Chronic hepatitis K73.9 and Hypothyroid E03.9 [facility] [id number] [place] [address] 96106- 3219 Jul, Low back pain M54.5 [place] [id number] [place] [address] 84659- 4129 Jun, Depression, major, recurrent, mild F33.0 and ADD (attention deficit disorder) F90.0 [facility] [id number] [place] [address] 23746- 6170 Jun, [facility] [id number] [place] [address] 56783- 2049 Jun, Low back pain M54.5 [facility] [address] 84796- 4633 Jun, Encounter for immunization Z23 ; Major depressive disorder, recurrent, mild F33.0 and Attention-deficit hyperactivity disorder, predominantly inattentive type F90.0 [facility] [id number] [place] [address] 40676- 3786 Jun, [facility] [address] [place] [address] 24262- 9857 Jun, Low back pain M54.5 [facility] [id number] [place] [address] 72721- 1781 May, [facility] [id number] [place] [address] 33173- 9808 May, [facility] [id number] [place] [address] 50494- 3412 May, Essential (primary) hypertension I10 [facility] [id number] [place] [address] 15726- 0766 May, Low back pain M54.5 [facility] [id number] [place] [address] 89101- 7550 May, Low back pain M54.5 ; Chronic hepatitis K73.9 and Hypothyroid E03.9 [facility] [id number] [place] [address] 45732- 0742 09 May, 2016 Hypothyroidism, unspecified type E03.9 [facility] [id number] [place] [address] 80760- 7231 08 May, 2016 Low back pain M54.5 [facility] [id number] [place] [address] 23213- 2689 May, [facility] [id number] [place] [address] 63458- 7726 May, [facility] [id number] [place] [address] 06784- 6629 May, Major depressive disorder, recurrent, moderate F33.1 ; Generalized anxiety disorder F41.1 ; Insomnia G47.00 and ADD (attention deficit disorder) F90.0 [facility] [address] [place] [address] 38990- 6918 Apr, Low back pain M54.5 [place] [address], [place] [address]- 9126 Apr, [place] [id number] [place] [address] 11757- 6075 Apr, Low back pain M54.5 [place] [id number] [place] [address] 18662- 8166 Apr, Low back pain M54.5 ; Tooth pain K08.8 and Seasonal allergic rhinitis due to pollen J30.1 [place] [id number] [place] [address] 36806- 5976 Apr, Low back pain M54.5 [place] [id number] [place] [address] 11817- 4653 Apr, LGS[facility] Pap smear of vagina R87.622 [place] [id number] [place] [address] 65045- 2366 Apr, Low back pain M54.5 [place] [id number] [place] [address] 58310- 7881 Mar, [place] [id number] [place] [address] 58076- 8434 Mar, Low back pain M54.5 [place] [id number] [place] [address] 27557- 2357 Mar, Encounter for Papanicolaou smear for cervical cancer screening Z12.4 ; Encounter for routine gynecological examination Z01.419 and Breast cancer screening Z12.39 [place] [address] [place] [address] 11599- 5336 18 Mar, 2016 Hypothyroidism, unspecified type E03.9 [place] [id number] [place] [address] 22454- 7892 14 Mar, 2016 Low back pain M54.5 ; Other chronic pain G89.29 ; Hypothyroid E03.9 and Hypothyroidism, unspecified type E03.9 [place] [id number] [place] [address] 62335- 8786 Mar, Major depressive disorder, recurrent, moderate F33.1 and Attention-deficit hyperactivity disorder, predominantly inattentive type F90.0 [facility] [id number] [place] [address] 59882 -5262 Mar, Bronchitis J40 [facility] [id number] [place] [address] 16050- 0704 Jan, [facility] [id number] [place] [address] 47183- 6201 Jan, [facility] [id number] [place] [address] 98647- 3039 Jan, Insomnia G47.00 [facility] [id number] [place] [address] 54631- 7138 December, [facility] [id number] [place] [address] 98818- 4902 December, Major depressive disorder in partial remission F32.4 and Attention-deficit hyperactivity disorder, unspecified type F90.9 [facility] [id number] [place] [address] 28350- 0222 December, [facility] [id number] [place] [address] 68021- 4634 December, [facility] [address] [place] [address] 01654- 3106 Dec, [facility] [id number] [place] [address] 71967- 1133 Dec, Major depressive disorder, recurrent episode, moderate 296.32 and Attention deficit disorder of childhood without mention of hyperactivity 314.00 [place] [id number] [place] [address] 64437- 9844 Dec, Major depressive disorder, recurrent episode, mild 296.31 ; ADD (attention deficit disorder) F90.0 and Hyperlipidemia E78.5 [facility] [id number] [place] [address] 29797- 2547 Dec, Insomnia G47.00 [facility] [address], [place] [address]- 6546 Dec, Attention-deficit hyperactivity disorder, predominantly inattentive type F90.0 [facility] [address], [place] [address]- 8698 Oct, Restless legs syndrome G25.81 [facility] [id number] [place] [address] 34611- 7603 Oct, Hypothyroidism, unspecified type E03.9 [facility] [address] [place] [address] 57637- 9878 Oct, [facility] [id number] [place] [address] 59803- 5288 Oct, [facility] [id number] [place] [address] 51307- 2710 15 Nov, 2015 Hypothyroid E03.9 and Chronic hepatitis K73.9 [facility] [address] [address]- 2388 Oct, [facility] [id number] [place] [address] 33215- 1588 08 Nov, 2015 Restless legs syndrome G25.81 ; Chronic hepatitis K73.9 ; Hypertension I10 ; Hypothyroid E03.9 and Breast cancer screening Z12.39 [facility] [address], [place] [address]- 2152 Oct, [facility] [address], [place] [address]- 7675 Oct, [facility] [address], [place] [address]- 4341 Oct, [facility] [address], [place] [address]- 9157 Oct, [facility] [id number] [address]- 4340 Oct, [facility] [address], [place] [address]- 7345 Oct, [facility] [id number] [place] [address] 44938- 7613 Oct, [facility] [id number] [place] [address] 18050- 7267 Sep, [facility] [id number] [place] [address] 86777- 5174 Sep, Attention-deficit hyperactivity disorder, predominantly inattentive type F90.0 and Major depressive disorder in partial remission F32.4 [facility] [id number] [place] [address] 57425- 9180 Sep, [facility] [id number] [place] [address] 08439- 0637 Aug, [facility] [id number] [place] [address] 66857- 8123 Aug, [facility] [id number] [place] [address] 07096- 6804 Aug, Major depressive disorder, recurrent, mild F33.0 ; Attention -deficit hyperactivity disorder, unspecified type F90.9 and Generalized anxiety disorder F41.1 [facility] [address], [place] [address]- 7716 Aug, Chronic hepatitis K73.9 ; Primary osteoarthritis of both knees M17.0 and Neuralgia M79.2 [facility] [address] [address]- 4618 Jul, [facility] [id number] [place] [address] 36836- 5189 Jul, [facility] [id number], [place] [address] Jul, [facility] [id number] [place] [id number] Jul, [facility] [id number] [place] [id number] Jun, [facility] [id number] [place] [id number] Jun, Bronchitis J40 and Encounter for immunization Z23 [facility] [address] [id number] May, 2015 [facility] [id number] [place] [address] 59899- 2293 12 May, 2015 [facility] [address] [address]- 3280 May, [facility] [id number] [place] [address] 39547- 5866 May, Hypokalemia 276.8 [facility] [id number] [place] [address] 17591- 1197 08 May, 2015 Major depressive disorder, recurrent episode, mild 296.31 ; Attention deficit disorder of childhood without mention of hyperactivity 314.00 and Generalized anxiety disorder 300.02 [facility] [id number] [place] [address] 72980- 3968 May, Hypertension 401.9 and Hypokalemia 276.8 [facility] [id number] [place] [address] 55198- 3003 May, [facility] [id number] [place] [address] 21151- 9814 Apr, [facility] [id number] [place] [address] 44074- 3963 Apr, [facility] [id number] [place] [address] 13547- 6164 Apr, [facility] [id number] [place] [address] 64181- 5299 Apr, [facility] [id number], [place] [address] 9663 Mar, [facility] [id number] [place] [address] 78754- 0926 Mar, [facility] [id number] [place] [address] 65655- 0418 Mar, [facility] [id number] [place] [address] 23841- 0260 Mar, [facility] [id number] [place] [address] 02255- 6896 Mar, Arthritis of both knees 716.96 ; Hepatitis B 070.30 ; Hypertension 401.9 ; Carpal tunnel syndrome 354.0 and Cubital tunnel syndrome 354.2 [facility] [id number] [place] [address] 16773- 8046 Mar, [facility] [id number] [place] [address] 00350- 6257 Mar, [facility] [id number] [place] [address] 65161- 2427 Mar, 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, chronic, without mention of hepatitis delta 070.32 ; Chronic hepatitis C without mention of hepatic coma 070.54 and Major depressive disorder, recurrent episode, moderate 296.32 [facility] [id number], [place] [address] 7715 Jan, [facility] [id number] [place] [address] 15023- 7215 Jan, Major depressive disorder, recurrent episode, mild 296.31 and Attention deficit disorder of childhood without mention of hyperactivity 314.00 [facility] [id number] [place] [address] 87895- 4011 Jan, [facility] [id number] [place] [address] 48021- 2009 Jan, [facility] [id number] [place] [address] 56309- 3328 December, Attention deficit disorder of childhood without mention of hyperactivity 314.00 ; Major depressive disorder, recurrent episode, mild 296.31 and Generalized anxiety disorder 300.02 [facility] [address] [facility] [id number] [address] 0570 08 Dec, 2014 [facility] [address] [id number] [address] 6120 14 Dec, 2014 [facility] [address] [facility] [id number], [place] [address]- 5117 Dec, [facility] [address] [id number] [address]- 4990 19 Oct, 2014 [facility] [address] [id number] [address]- 0753 19 Oct, 2014 [facility] [address] [id number] [address]- 8532 18 Oct, 2014 [facility] [address] [id number], [place] [address]- 4378 18 Oct, 2014 [facility] [address] [id number], [place] [address]- 0716 18 Oct, 2014 [facility] [address] [id number], [place] [address]- 9104 18 Oct, 2014 [facility] [address] [id number], [place] [address]- 2162 16 Oct, 2014 [facility] [address] [id number], [place] [address]- 6079 13 Oct, 2014 [facility] [address] [id number], [place] [address]- 9285 13 Oct, 2014 [facility] [address] [id number], [place] [address]- 4819 Oct, [facility] [address] [id number] [id number] 0065 Oct, [facility] [id number] [place] [address]- 8091 10 Oct, 2014 [facility] [place] [facility] [address] [id number] [place] [address]- 0586 10 Oct, 2014 [facility] [place] [facility] [address] [id number] [place] [address]- 2962 05 Oct, 2014 [facility] [place] [facility] [address] [facility] [id number] [place] [address]- 2950 05 Oct, 2014 [facility] [place] [facility] [address] [id number] [place] [address]- 2651 Oct, 2014 [facility] [place] [facility] [address] [id number] [place] [address]- 3971 Oct, 2014 [facility] [place] [facility] [address] [facility] [id number] [place] [address]- 6653 25 Oct, 2014 [facility] [place] [facility] [address] [facility] [id number] [place] [address]- 1951 19 Oct, 2014 [facility] [place] [facility] [address] [facility] [id number] [place] [address]- 0322 18 Oct, 2014 [facility] [place] [facility] [address] [facility] [id number] [place] [address]- 6736 17 Oct, 2014 [facility] [place] [facility] [address] [facility] [id number] [place] [address]- 3866 17 Oct, 2014 [facility] [place] [facility] [address] [facility] [id number], [place] [address]- 1743 Oct, 2014 [facility] [place] [facility] [address] [facility] [id number] [place] [address]- 5105 11 Oct, 2014 [facility] [place] [facility] [address] [facility] [id number] [place] [address]- 0107 Oct, 2014 [facility] [place] [facility] [address] [facility] [id number] [place] [address]- 1105 11 Oct, 2014 [facility] [place] [facility] [address] [facility] [id number], [place] [address]- 5324 Oct, [facility] [address] [id number] [place] [address]- 9107 Oct, [facility] [place] [facility] [address] [id number] [place] [address]- 8505 Sep, [facility] [place] [facility] [address] [id number] [place] [address]- 6908 Sep, [facility] [place] [facility] [address] [id number] [place] [address]- 9669 Sep, [facility] [place] [facility] [address] [id number] [place] [address]- 3812 Sep, [facility] [place] [facility] [address] [id number] [place] [address]- 9738 Sep, [facility] [address] [id number] [place] [address]- 3868 Sep, [facility] [place] [facility] [address] [id number] [place] [address]- 6412 Sep, [facility] [place] [facility] [address] [id number] [place] [address]- 1635 Sep, [facility] [place] [facility] [address] [id number] [place] [address]- 6485 Sep, [facility] [place] [facility] [address] [id number] [place] [address]- 3188 Sep, [facility] [place] [facility] [address] [id number], [place] [address]- 3153 Sep, [facility] [place] [facility] [address] [id number] [place] [address]- 0786 Sep, [facility] [place] [facility] [address] [id number] [place] [address]- 3588 Sep, [facility] [place] [facility] [address] [id number], [place] [address]- 4220 Sep, [facility] [place] [facility] [address] [id number] [place] [address]- 8616 Sep, [facility] [place] [facility] [address] [id number] [place] 4677 Sep, [facility] [place] [facility] [address] [id number] [place] 8367 Aug, [facility] [place] [facility] [address] [id number] [place] [address]- 2236 Aug, [facility] [place] [facility] [address] [id number] [place] [address]- 6700 Aug, [facility] [place] [facility] [address] [id number] [place] [address]- 0790 Aug, [facility] [place] [facility] [address] [id number] [place] [address]- 6950 Aug, [facility] [place] [facility] [address] [id number] [place] [address]- 3169 Aug, [facility] [place] [facility] [address] [id number] [place] [address]- 3564 Aug, [facility] [place] [facility] [address] [id number] [place] [address]- 0431 Aug, [facility] [place] [facility] [address] [id number] [place] [address]- 5535 19 Aug, 2014 [facility] [place] [facility] [address] [id number] [place] [address]- 4853 18 Aug, 2014 [facility] [place] [facility] [address] [id number] [place] [address]- 9936 18 Aug, 2014 [facility] [place] [facility] [address] [id number] [place] 6356 16 Aug, 2014 [facility] [place] [facility] [address] [id number] [place] [address]- 9686 16 Aug, 2014 [facility] [place] [facility] [address] [id number] [place] [address]- 6450 15 Aug, 2014 [facility] [place] [facility] [address] [id number] [place] [address]- 0308 15 Aug, 2014 [facility] [place] [facility] [address] [id number] [place] [address]- 8522 Aug, [facility] [place] [facility] [address] [id number] [place] [address]- 6862 Aug, [facility] [place] [facility] [address] [id number] [place] [address]- 2898 Aug, [facility] [place] [facility] [address] [id number] [place] [address]- 7346 Aug, [facility] [place] [facility] [address] [id number] [place] [address]- 4274 Aug, [facility] [place] [facility] [address] [id number] [place] [address]- 1223 Aug, [facility] [place] [facility] [address] [id number] [place] [address]- 4969 Aug, [facility] [place] [facility] [address] [id number] [place] [address]- 1813 Aug, [facility] [place] [facility] [address] [id number] [place] [address]- 8361 Aug, [facility] [place] [facility] [address] [id number] [place] [address]- 2998 Aug, [facility] [place] [facility] [address] [id number], [place] [address]- 9882 Jul, [facility] [place] [facility] [address] [id number] [place] [address]- 4201 Jul, [facility] [place] [facility] [address] [id number] [place] [address]- 0553 Jul, [facility] [place] [facility] [address] [id number] [place] [address]- 7162 Jul, [facility] [place] [facility] [address] [id number] [place] [address]- 2134 Jul, [facility] [place] [facility] [address] [id number] [place] [address]- 5755 Jul, [facility] [place] [facility] [address] [id number] [place] [address]- 6034 Jun, [facility] [place] [facility] [address] [id number] [place] [address]- 2580 Jun, [facility] [place] [facility] [address] [id number] [place] [address]- 7415 Jun, [facility] [place] [facility] [address] [id number] [place] [address]- 7199 Jun, [facility] [place] [facility] [address] [id number] [place] [address]- 9715 Jun, [facility] [place] [facility] [address] [id number] [place] [address]- 4663 Jun, [facility] [place] [facility] [address] [id number] [place] [address]- 3284 Jun, [facility] [place] [facility] [address] [id number] [place] [address]- 2610 Jun, [facility] [place] [facility] [address] [id number] [place] [address]- 0716 16 May, 2013 [facility] [place] [facility] [address] [id number] [place] [address]- 5641 16 May, 2013 [facility] [place] [facility] [address] [id number] [place] [address]- 9799 15 May, 2013 [facility] [place] [facility] [address] [id number] [place] [address]- 1128 15 May, 2013 [facility] [place] [facility] [address] [id number] [place] [address]- 1393 08 May, 2013 [facility] [place] [facility] [address] [id number] [place] [address]- 2932 May, [facility] [place] [facility] [address] [id number] [place] [address]- 7883 May, [facility] [place] [facility] [address] [id number] [place] [address]- 1391 May, [facility] [place] [facility] [address] [id number] [place] [address]- 9608 Apr, [facility] [place] [facility] [address] [id number] [place] [address]- 0771 Apr, [facility] [place] [facility] [address] [id number] [place] [address]- 9879 Apr, [facility] [place] [facility] [address] [id number] [place] [address]- 1665 Apr, [facility] [place] [facility] [address] [id number] [place] [address]- 8258 Apr, [facility] [place] [facility] [address] [id number] [place] [address]- 9799 Apr, [facility] [place] [facility] [address] [id number] [place] [address]- 7267 Apr, [facility] [place] [facility] [address] [id number] [place] [address]- 2155 Apr, [facility] [place] [facility] [address] [id number] [place] [address]- 2580 Apr, [facility] [place] [facility] [address] [id number] [place] [address]- 6273 Apr, [facility] [place] [facility] [address] [id number] [place] [address]- 6072 Apr, [facility] [place] [facility] [address] [id number] [place] [address]- 9255 Apr, [facility] [place] [facility] [address] [id number] [place] [address]- 4202 Apr, [facility] [place] [facility] [address] [id number] [place] [address]- 2040 Mar, [facility] [place] [facility] [address] [id number] [place] [address]- 0130 Mar, [facility] [place] [facility] [address] [id number] [place] [address]- 5751 Mar, [facility] [place] [facility] [address] [id number] [place] [address]- 3626 Mar, [facility] [place] [facility] [address] [id number] [place] [address]- 2670 Jan, [facility] [place] [facility] [address] [id number] [place] [address]- 7294 Jan, [facility] [place] [facility] [address] [id number] [place] [address]- 7813 December, [facility] [place] [facility] [address] [id number] [place] [address]- 8361 December, [facility] [place] [facility] [address] [id number] [place] [address]- 1761 December, [facility] [place] [facility] [address] [id number] [place] [address]- 7623 December, [facility] [place] [facility] [address] [id number] [place] [address]- 8982 December, [facility] [place] [facility] [address] [id number] [place] [address]- 6580 December, [facility] [place] [facility] [address] [id number] [place] [address]- 5543 December, [facility] [place] [facility] [address] [id number] [place] [address]- 2001 December, [facility] [place] [facility] [address] [id number] [place] [address]- 1195 Dec, [facility] [place] [facility] [address] [id number] [place] [address]- 9272 Dec, [facility] [place] [facility] [address] [id number] [place] [address]- 4203 Dec, [facility] [place] [facility] [address] [id number] [place] [address]- 0146 Dec, [facility] [place] [facility] [address] [id number] [place] [address]- 0820 Oct, [facility] [place] [facility] [address] [id number] [place] [address]- 8851 Oct, [facility] [place] [facility] [address] [id number] [place] [address]- 0888 Oct, [facility] [place] [facility] [address] [id number] [place] [address]- 9119 Oct, [facility] [place] [facility] [address] [id number] [place] [address]- 4388 Oct, [facility] [place] [facility] [address] [id number] [place] [address]- 7084 Oct, [facility] [place] [facility] [address] [id number] [place] [address]- 5932 Oct, [facility] [place] [facility] [address] [id number] [place] [address]- 0107 Oct, [facility] [place] [facility] [address] [id number] [place] [address]- 5381 Oct, [facility] [place] [facility] [address] [id number] [place] [address]- 6137 Oct, [facility] [place] [facility] [address] [id number] [place] [address]- 0570 Oct, [facility] [place] [facility] [address] [id number] [place] [address]- 2074 Oct, [facility] [place] [facility] [address] [id number] [place] [address]- 2876 Oct, [facility] [place] [facility] [address] [id number] [place] [address]- 5006 10 Oct, 2013 [facility] [place] [facility] [address] [id number] [place] [address]- 7608 Oct, [facility] [place] [facility] [address] [id number] [place] [address]- 0226 Oct, 2013 [facility] [place] [facility] [address] [id number] [place] [address]- 8506 Oct, 2013 [facility] [place] [facility] [address] [id number] [place] [address]- 2232 Oct, 2013 [facility] [place] [facility] [address] [id number] [place] [address]- 4148 Oct, [facility] [place] [facility] [address] [id number] [place] [address]- 7391 Oct, [facility] [place] [facility] [address] [facility] [id number] [place] [address]- 2554 Oct, [facility] [place] [facility] [address] [id number] [place] [address]- 8238 Oct, [facility] [place] [facility] [address] [facility] [id number] [place] [address]- 3639 Sep, [facility] [place] [facility] [address] [facility] [id number] [place] [address]- 5205 Sep, [facility] [place] [facility] [address] [facility] [id number] [place] [address]- 0697 Sep, [facility] [place] [facility] [address] [id number] [place] [address]- 1722 Sep, [facility] [place] [facility] [address] [id number] [place] [address]- 2478 Aug, [facility] [place] [facility] [address] [id number] [place] [address]- 2981 Aug, [facility] [place] [facility] [address] [facility] [id number] [place] [address]- 1177 Aug, [facility] [place] [facility] [address] [id number] [place] [address]- 7406 Aug, [facility] [place] [facility] [address] [id number] [place] [address]- 6007 Aug, [facility] [place] [facility] [address] [id number] [place] [address]- 1134 Aug, [facility] [place] [facility] [address] [id number] [place] [address]- 2085 Aug, [facility] [place] [facility] [address] [id number] [place] [address]- 9848 Aug, [facility] [place] [facility] [address] [id number] [place] [address]- 3040 Aug, [facility] [place] [facility] [address] [id number] [place] [address]- 4121 Jul, [facility] [place] [facility] [address] [id number] [place] [address]- 0593 Jul, [facility] [place] [facility] [address] [id number] [place] [address]- 6988 Jul, [facility] [place] [facility] [address] [id number] [place] [address]- 0716 Jul, [facility] [place] [facility] [address] [id number] [place] [address]- 5555 Jul, [facility] [place] [facility] [address] [id number] [place] [address]- 3731 Jul, [facility] [place] [facility] [address] [id number] [place] [address]- 6054 Jul, [facility] [place] [facility] [address] [id number] [place] [address]- 4052 Jul, [facility] [place] [facility] [address] [id number] [place] [address]- 5994 Jun, [facility] [place] [facility] [address] [id number] [place] [address] Jun, [facility] [place] [facility] [address] [id number] [place] [address] Jun, [facility] [place] [facility] [address] [id number] [place] [address] Jun, [facility] [place] [facility] [address] [id number] [place] [address] Jun, [facility] [place] [facility] [address] [id number] [place] [address] Jun, [facility] [place] [facility] [address] [id number] [place] [address] Jun, [facility] [place] [facility] [address] [id number] [place] [address] Jun, [facility] [place] [facility] [address] [id number] [place] [address] 30 May, 2013 [facility] [place] [facility] [address] [id number] [place] [address] 26 May, 2013 [facility] [place] [facility] [address] [id number] [place] [address] 23 May, 2013 [facility] [place] [facility] [address] [id number] [place] [address] 19 May, 2013 [facility] [place] [facility] [address] [id number], [place] [address] 12 May, 2013 [facility] [place] [facility] [address] [id number], [place] [address] May, [facility] [place] [facility] [address] [id number] [place] [address] Apr, [facility] [place] [facility] [address] [id number] [place] [address] Apr, [facility] [place] [facility] [address] [id number] [place] [address] Apr, [facility] [place] [facility] [address] [id number] [place] [address] Apr, [facility] [address] [id number] [place] [address] Apr, [facility] [place] [facility] [address] [id number] [place] [address] Apr, [facility] [address] [id number] [place] [address] Apr, [facility] [place] [facility] [address] [id number] [place] [address] Mar, [facility] [address] [id number] [place] [address] Mar, [facility] [address] [id number] [place] [address] Mar, [facility] [place] [facility] [address] [id number] [place] [address] Mar, [facility] [address] [id number] [place] [address] Mar, [facility] [place] [facility] [address] [id number] [place] [address] Mar, [facility] [address] [id number] [place] [address] Mar, [facility] [place] [facility] [address] [id number] [place] [address] Jan, [facility] [place] [facility] [address] [id number] [place] [address] Jan, [facility] [place] [facility] [address] [id number] [place] [address] Jan, [facility] [place] [facility] [address] [id number] [place] [address] Jan, [facility] [place] [facility] [address] [id number] [place] [address]- [address] Jan, [facility] [address] [id number] [place] [address] Jan, [facility] [address] [id number] [place] [address] Jan, [facility] [address] [id number] [place] [address] 39[address] December, [facility] [place] [facility] [address] [id number] [place] [address] December, [facility] [address] [id number] [place] [address] December, [facility] [address] [id number] [place] [address] December, [facility] [address] [id number] [place] [address] Dec, [facility] [address] [id number] [place] [address] Dec, [facility] [address] [id number] [place] [address] Dec, [facility] [address] [id number] [place] [address] Oct, [facility] [place] [facility] [address] [id number] [place] [address] Oct, [facility] [place] [facility] [address] [id number], [place] [address] Oct, [facility] [place] [facility] [address] [id number] [place] [address] Oct, [facility] [place] [facility] [address] [id number] [place] [address] Oct, [facility] [place] [facility] [address] [id number] [address] Oct, [facility] [place] [facility] [address] [id number], [place] [address] Oct, [facility] [address] [id number] [place] [address] Oct, [facility] [address] [id number] [place] [address] 280[address] Oct, [facility] [address] [id number] [place] [address] 08 Oct, 2012 [facility] [place] [facility] [address] [id number] [place] [address] Oct, [facility] [address] [id number] [place] [address] Sep, [facility] [address] [id number] [place] [address] Sep, [facility] [address] [id number] [place] [address] 269[address] Sep, [facility] [address] [id number] [place] [address] Aug, [facility] [address] [id number] [place] [address] Aug, [facility] [address] [facility] [id number] [place] [address] Aug, [facility] [facility] [address] [id number] [place] [address] Aug, [facility] [place] [facility] [address] [id number] [place] [address] Jul, [facility] [place] [facility] [address] [id number] [place] [address] Jul, [facility] [place] [facility] [address] [id number] [place] [address] Jul, [facility] [address] [id number], [place] [address] Jul, [facility] [place] [facility] [address] [id number] [place] [address] Jul, [facility] [place] [facility] [address] [id number] [place] [address] 2007 Jul, [facility] [place] [facility] [address] [id number] [place] [address] Jul, [facility] [place] [facility] [address] [id number] [place] [address] Jul, [facility] [place] [facility] [address] [id number] [place] [address] Jun, [facility] [place] [facility] [address] [id number] [place] [address] Jun, [facility] [place] [facility] [address] [id number] [place] [address] Jun, [facility] [place] [facility] [address] [id number] [place] [address] Jun, [facility] [place] [facility] [address] [id number] [place] [address] Jun, [facility] [place] [facility] [address] [id number] [place] [address] May, [facility] [place] [facility] [address] [id number] [place] [address] May, [facility] [place] [facility] [address] [id number] [place] [address] 18 May, 2012 [facility] [place] [facility] [address] [id number] [place] [address] 09 May, 2012 [facility] [place] [facility] [address] [id number] [place] [address] 04 May, 2012 [facility] [place] [facility] [address] [id number] [place] [address] Apr, [facility] [place] [facility] [address] [id number] [place] [address] Apr, [facility] [place] [facility] [address] [id number] [place] [address] Apr, [facility] [place] [facility] [address] [id number] [place] [address] Apr, [facility] [place] [facility] [address] [id number] [place] [address] Apr, [facility] [place] [facility] [address] [id number] [place] [address] Apr, [facility] [place] [facility] [address] [id number] [place] [address] Apr, [facility] [place] [facility] [address] [id number] [place] [address] Mar, [facility] [place] [facility] [address] [id number] [place] [address] Mar, [facility] [place] [facility] [address] [id number] [place] [address] 87[address] Mar, [facility] [place] [facility] [address] [id number] [place] [address] Mar, [facility] [place] [facility] [address] [id number] [place] [address] Jan, [facility] [place] [facility] [address] [id number] [place] [address] 138[address] Jan, [facility] [place] [facility] [address] [id number] [place] [address] Jan, [facility] [place] [facility] [address] [id number] [place] [address] Jan, [facility] [place] [facility] [address] [id number] [place] [address] 74[address] Jan, [facility] [place] [facility] [address] [id number] [place] [address] Jan, [facility] [place] [facility] [address] [id number] [place] [address] December, [facility] [address] [id number] [place] [address] December, [facility] [address] [id number] [place] [address] 65[address] December, [facility] [address] [id number] [place] [address] 98[address] December, [facility] [address] [id number] [place] [address] Dec, [facility] [address] [id number] [place] [address] 8585 Dec, [facility] [address] [id number] [place] [address] Oct, [facility] [address] [id number] [place] [address] 8180 Oct, [facility] [address] [id number] [place] [address] 1560 Oct, [facility] [address] [id number] [place] [address] 39[address] Oct, [facility] [address] [facility] [id number] [place] [address] Oct, [facility] [address] [id number] [place] [address] Oct, [facility] [address] [id number] [place] [address] 05 Nov, 2011 [facility] [place] [facility] [address] [id number] [place] [address] 95[address] Oct, [facility] [address] [id number] [place] [address] 3316 Oct, [facility] [address] [id number] [place] [address] Oct, [facility] [address] [id number] [place] [address]- 6885 Oct, [facility] [address] [id number] [place] [address] 77[address] Sep, [facility] [address] [id number] [place] [address] 57[address] Sep, [facility] [place] [facility] [address] [id number] [place] [address] Sep, [facility] [address] [id number] [place] [address] 1377 Sep, [facility] [address] [id number] [place] [address] 8239 Sep, [facility] [address] [id number] [place] [address]- 8822 Sep, [facility] [address] [id number] [place] [address]- 4869 Sep, [facility] [address] [id number] [place] [address] 2023 Sep, [facility] [address] [id number] [place] [address] Aug, [facility] [place] [facility] [address] [id number] [place] [address] Aug, [facility] [place] [facility] [address] [id number], [place] [address] Aug, [facility] [place] [facility] [address] [id number] [place] [address] 2259 Jul, [facility] [place] [facility] [address] [id number] [place] [address] 6916 Jul, [facility] [place] [facility] [address] [id number] [place] [address]- 2316 Jul, [facility] [place] [facility] [address] [id number] [place] [address]- 8195 17 Jul, 2011 [facility] [place] [facility] [address] [id number] [place] [address]- 5743 08 Jul, 2011 [facility] [place] [facility] [address] [id number] [place] [address]- 8535 02 Jul, 2011 [facility] [place] [facility] [address] [id number] [place] [address]- 1559 31 Jun, 2011 [facility] [place] [facility] [address] [id number] [place] [address]- 4768 20 Jun, 2011 [facility] [place] [facility] [address] [id number] [place] [address]- 1276 20 Mar, 2011 [facility] [place] [facility] [address] [id number] [place] [address]- 4467 14 Dec, 2010 [facility] [place] [facility] [address] [id number] [place] [address]- 8038 14 Oct, 2010 [facility] [place] [facility] [address] [id number] [place] [address]- 6498 06 Aug, 2010 [facility] [place] [facility] [address] [id number] [place] [address]- 3469 30 Jul, 2010 [facility] [place] [facility] [address] [facility] [id number] [place] [address]- 3753 11 Jul, 2010 [facility] [place] [facility] [address] [id number] [place] [address]- 1356 10 Jul, 2010 [facility] [place] [facility] [address] [id number] [place] [address]- 5204 09 Jul, 2010 [facility] [place] [facility] [address] [id number] [place] [address]- 2439 08 Jul, 2010 [facility] [place] [facility] [address] [id number] [place] [address]- 9139 22 Aug, 2009 [facility] [place] [facility] [address] [facility] [id number] [place] [address]- 2893 15 Aug, 2009 [facility] [place] [facility] [id number], [place] [address] Aug, [facility] [id number], [place] [address] Aug, [facility] [id number], [place] [address] 35[address] Jul, [facility] [id number], [place] [address] Jul, [facility] [id number], [place] [address]- [address] Jul, [facility] [id number] [place] [address] Jul, [facility] [id number], [place] [address] 1585 Jun, [facility] [id number], [place] [address] 2699 Jun, IMMUNIZATIONS No Known Immunizations SOCIAL HISTORY Never Assessed REASON FOR VISIT Controlled Med Refill 07/08/2017 PLAN OF CARE VITAL SIGNS MEDICATIONS Medication Instructions Dosage Frequency Start Date End Date Duration Status Hydrocodone-Acetaminophen 7.5-325 MG Orally 2 times a day 1 tablet as needed 12h Jul, 28 days Active RESULTS No Results PROCEDURES No [...]
--- OUTSIDE RECORDS SUMMARY | 2018-03-17 11:04 | XMS REPORT ---
Author Author ADRIANA VARSHA [facility] Address [address] [place] [address] Care Team Providers [employer] Worker Name Role Phone ADRIANA, VARSHA Unavailable PROBLEMS Type Condition ICD9-CM Code UES66-ES Code Onset Dates Condition Status SNOMED Code Problem 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 Active 90194589 Problem Attention-deficit hyperactivity disorder, predominantly inattentive type F90.0 Active 10653828 Problem Obstructive sleep apnea G47.33 Active 21155733 Problem Primary insomnia F51.01 Active 7768089 Problem Neuralgia M79.2 Active 02195438 Problem Cannabis use disorder, mild, abuse F12.10 Active 06833617 Problem Folic acid deficiency E53.8 Active 819139406 Problem Restless legs G25.81 Active 64869461 Problem Major depressive disorder, recurrent, mild F33.0 Active 07865599 Problem Generalized anxiety disorder F41.1 Active 12941022 Problem Major depressive disorder, recurrent episode, moderate F33.1 Active 598519596 Problem Hypertension I10 Active 74487440 Problem Hyperlipidemia E78.5 Active 95749439 Problem Primary osteoarthritis of both knees M17.0 Active 637044564 Problem Chronic hepatitis K73.9 Active 10768509 Problem Low back pain M54.5 Active 967338101 Problem Chronic viral hepatitis B without delta-agent B18.1 Active 637358914 Problem Insomnia G47.00 Active 481259753 Problem Hypothyroid E03.9 Active 00294086 Problem Depression, major, recurrent, mild F33.0 Active 067067166 Problem Obesity due to excess calories, unspecified obesity severity E66.09 Active 146790639 ALLERGIES Substance Reaction Event Type Date Status Trazodone HCl "weird dreams" Drug Allergy Jul, Active ENCOUNTERS Encounter Location Date Diagnosis [facility] [address] [facility] [id number] [address] December, [facility] [id number] [place] [address] 39416- 9977 December, [facility] [id number] [place] [address] 07460- 3173 Dec, Bone pain M89.8X9 [facility] [id number] [place] [address] 03953- 3207 Dec, [facility] [address] 23816- 3526 Oct, [facility] [id number] [place] [address] 74348- 8592 Oct, Syncope, unspecified syncope type R55 ; Primary insomnia F51.01 ; Dry mouth R68.2 and Cannabis use disorder, mild, abuse F12.10 [facility] [id number] [place] [address] 91294- 9934 Oct, [facility] [address] 31554- 2789 Sep, [facility] [id number] [place] [address] 54158- 6232 Sep, [facility] [id number] [place] [address] 96243- 2636 Sep, [facility] [id number] [place] [address] [phone] Sep, Dental examination Z01.20 [facility] [id number] [place] [address] 02541- 7766 Sep, Dental examination Z01.20 [facility] [id number] [place] [address] 05353- 7926 Sep, Sinus congestion R09.81 ; Mouth sores K13.79 ; Low back pain M54.5 and Mouth swelling R22.0 [facility] [id number] [place] [address] 36784- 2221 Aug, Low back pain M54.5 [facility] [id number] [place] [address] 68331- 7714 Aug, Low back pain M54.5 [place] [address] 18723- 7215 Jul, [place] [address] 73404- 0703 Jul, 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 ; Encounter for immunization Z23 ; Hypothyroid E03.9 ; Decreased renal function N28.9 and Muscle cramps R25.2 [place] [address] 91627- 5446 Jul, [place] [address] 21776- 0706 15 Jul, 2017 [place] [address] 89369- 7122 Jul, [place] [address] 48235- 1083 Jul, Major depressive disorder, recurrent, mild F33.0 [place] [address] 63264- 2886 Jul, Acquired cyst of kidney N28.1 ; Acidosis E87.2 and Hyperkalemia E87.5 [facility] [address] 67005- 5272 Jul, Major depressive disorder, recurrent, mild F33.0 ; Attention -deficit hyperactivity disorder, predominantly inattentive type F90.0 and Generalized anxiety disorder F41.1 [facility] [id number] [place] [address] 12035- 6019 Jul, Low back pain M54.5 [place] [address] 01497- 6296 Jun, Cough R05 ; Low back pain M54.5 and Pre-syncope R55 [place] [address] 30097- 6455 Jun, Low back pain M54.5 [facility] [address] [id number] [place] [address] [phone] Jun, Dental caries K02.9 [facility] [id number] [place] [address] 04725- 8977 Jun, [facility] [id number] [place] [address] 60530- 1256 Jun, Major depressive disorder, recurrent, mild F33.0 ; Attention -deficit hyperactivity disorder, predominantly inattentive type F90.0 and Generalized anxiety disorder F41.1 [facility] [id number] [place] [address] 01720- 4177 May, Vertigo R42 ; Confusion R41.0 ; Weakness R53.1 and Vision changes H53.9 [facility] [id number] [place] [address] 03144- 3034 May, [facility] [id number] [place] [address] 27420- 8603 May, [facility] [id number] [place] [address] 27368- 6158 May, Low back pain M54.5 [facility] [id number] [place] [address] 30555- 4815 05 May, 2017 Major depressive disorder, recurrent, mild F33.0 ; Attention -deficit hyperactivity disorder, predominantly inattentive type F90.0 and Generalized anxiety disorder F41.1 [facility] [address] [place] [address] 52895- 1730 May, [facility] [id number] [place] [address] 75373- 5506 May, Acute worsening of stage 3 chronic kidney disease N18.3 [facility] [address] [place] [address] 56593- 7436 Apr, [facility] [address] 77654- 0328 Apr, Acute allergic rhinitis due to pollen, unspecified seasonality J30.1 ; Restless legs G25.81 and Low back pain M54.5 [place] [address] 51067- 2045 10 Apr, 2017 Primary osteoarthritis of both knees M17.0 [place] [address] 73144- 0684 08 Apr, 2017 Generalized anxiety disorder F41.1 [place] [address] 82453- 0563 Apr, Major depressive disorder, recurrent, mild F33.0 ; Attention -deficit hyperactivity disorder, predominantly inattentive type F90.0 and Generalized anxiety disorder F41.1 [place] [address] 32641- 2983 Apr, [place] [address] 88517- 9904 Mar, Major depressive disorder, recurrent episode, moderate F33.1 ; Generalized anxiety disorder F41.1 and ADHD, predominantly inattentive type F90.0 [facility] [address] 06994 -0335 Mar, Abscess L02.91 [facility] [address] 94792- 4077 Mar, 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 [facility] [address] 35308- 8593 Mar, Decreased renal function N28.9 [facility] [address] [id number] Mar, Dental examination Z01.20 [facility] [address] 67829- 7703 Mar, 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 [facility] [address] 18607- 3774 Mar, 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 [facility] [id number] [id number] 14 Mar, 2017 Dental examination Z01.20 and Dental caries K02.9 [facility] [address] [place] [address] 83391- 2430 Mar, Chronic viral hepatitis B without delta-agent B18.1 ; Folic acid deficiency E53.8 ; 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 and Decreased renal function N28.9 [facility] [id number] [place] [address] 98111- 7349 Mar, Major depressive disorder, recurrent, mild F33.0 [place] [id number] [place] [address] 16516- 8424 Mar, [place] [id number] [place] [address] 72303- 0056 Mar, Chronic hepatitis K73.9 ; 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 ; Localized edema R60.0 ; Illicit drug use F19.90 ; Vision changes H53.9 and Obesity due to excess calories, unspecified obesity severity E66.09 [facility] [facility] [id number] [place] [address] 94256- 0571 Jan, Major depressive disorder, recurrent, mild F33.0 [place] [facility] [id number] [place] [address] 94138- 5095 Jan, Chronic viral hepatitis B without delta-agent B18.1 [place] [address] [place] [address] 19328- 8846 Jan, [place] [id number] [place] [address] 88472- 7515 Jan, Weight gain R63.5 ; Hypothyroid E03.9 ; 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 ; Decreased renal function N28.9 and Chronic viral hepatitis B without delta-agent B18.1 [place] [id number] [place] [address] 36466- 9261 December, Major depressive disorder, recurrent, mild F33.0 and Generalized anxiety disorder F41.1 [facility] [id number] [place] [address] 37120- 2058 December, Obesity due to excess calories, unspecified obesity severity E66.09 and Folic acid deficiency E53.8 [facility] [id number] [place] [address] 39547- 0705 December, Folic acid deficiency E53.8 [place] [facility] [id number] [place] [address] 00056- 2336 December, Folic acid deficiency E53.8 [facility] [facility] [id number] [place] [address] 06259- 9488 December, Obesity due to excess calories, unspecified obesity severity E66.09 [facility] [facility] [id number] [place] [address] 66416- 0087 December, [facility] [facility] [id number] [place] [address] 90502- 9121 December, Folic acid deficiency E53.8 [facility] [id number] [place] [address] [phone] December, Encounter for other administrative examinations Z02.89 [place] [facility] [id number] [place] [address] 69195- 3973 Dec, [facility] [id number] [place] [address] [phone] Dec, Dental caries K02.9 [place] [id number] [place] [address] 65399- 7305 Oct, Bone pain M89.8X9 [place] [address] 64037- 0650 Oct, Hypothyroid E03.9 [place] [id number] [place] [address] 30531- 6398 Oct, Hypothyroid E03.9 [place] [address] [place] [address]- 4017 13 Oct, 2016 Breast cancer screening Z12.39 [facility] [id number] [place] [address] [phone] 08 Oct, 2016 Dental examination Z01.20 [facility] [id number] [place] [address] 33617- 0855 02 Oct, 2016 [place] [address] 43617- 7584 28 Oct, 2016 Major depressive disorder, recurrent, mild F33.0 and Generalized anxiety disorder F41.1 [place] [address] 97063- 9359 Oct, [place] [id number] [place] [address] 30704- 0168 Oct, Hypothyroid E03.9 [place] [id number] [place] [address] 01365- 0548 Sep, Hypothyroid E03.9 ; Chronic viral hepatitis B without delta- agent B18.1 and Folic acid deficiency E53.8 [place] [id number] [place] [address] 18387- 8298 Sep, Hypothyroidism, unspecified type E03.9 ; Elevated parathyroid hormone E34.9 and Chronic viral hepatitis B without delta-agent B18.1 [place] [id number] [place] [address] 12928- 6092 Sep, [place] [id number] [place] [address] 72869- 4030 Sep, Elevated parathyroid hormone E34.9 [place] [id number] [place] [address] 24051- 8863 Sep, [place] [id number] [place] [address] 07716- 2739 Sep, Chronic hepatitis K73.9 ; Bone pain M89.8X9 and Abnormal complete blood count R79.89 [place] [id number] [place] [address] 41057- 2862 Aug, Major depressive disorder, recurrent, mild F33.0 [facility] [id number] [place] [address] 16419- 8044 Aug, Bone pain M89.8X9 [facility] [address] 78664- 5349 Aug, [facility] [address] 28273- 5041 Jul, Chronic viral hepatitis B without delta-agent B18.1 [place] [address] 41891- 0474 Jul, Hypothyroidism, unspecified type E03.9 [place] [address] 92692- 9376 Jul, [facility] [address] 97002- 8284 Jul, Chronic hepatitis K73.9 and Hypothyroid E03.9 [facility] [address] 91957- 5092 Jul, Low back pain M54.5 [facility] [id number] [place] [address] 39987- 5477 31 Jun, 2016 Depression, major, recurrent, mild F33.0 and ADD (attention deficit disorder) F90.0 [facility] [id number] [place] [address] 55060- 1591 Jun, [facility] [id number] [place] [address] 77471- 0540 Jun, Low back pain M54.5 [facility] [id number] [place] [address] 80852- 2686 Jun, Encounter for immunization Z23 ; Major depressive disorder, recurrent, mild F33.0 and Attention-deficit hyperactivity disorder, predominantly inattentive type F90.0 [facility] [id number] [place] [address] 07546- 3941 Jun, [facility] [address] 88586- 4933 Jun, Low back pain M54.5 [facility] [address] 30514- 9526 May, [facility] [address] 04302- 0332 May, [facility] [address] 38746- 0828 May, Essential (primary) hypertension I10 [facility] [address] 82171- 5062 May, Low back pain M54.5 [facility] [address] 89999- 7011 May, Low back pain M54.5 ; Chronic hepatitis K73.9 and Hypothyroid E03.9 [facility] [address] 08255- 5585 09 May, 2016 Hypothyroidism, unspecified type E03.9 [facility] [id number] [place] [address] 96181- 8863 08 May, 2016 Low back pain M54.5 [facility] [id number] [place] [address] 99984- 2133 07 May, 2016 [facility] [address] 56834- 8665 May, [facility] [address] 17837- 2041 May, Major depressive disorder, recurrent, moderate F33.1 ; Generalized anxiety disorder F41.1 ; Insomnia G47.00 and ADD (attention deficit disorder) F90.0 [facility] [address] 09213- 1715 Apr, Low back pain M54.5 [facility] [id number] [place] [address] 12555- 0242 Apr, [facility] [id number] [place] [address] 94369- 8031 Apr, Low back pain M54.5 [facility] [id number] [place] [address] 39722- 9576 Apr, Low back pain M54.5 ; Tooth pain K08.8 and Seasonal allergic rhinitis due to pollen J30.1 [facility] [id number] [place] [address] 91400- 2763 Apr, Low back pain M54.5 [place] [address] [place] [address] 36797- 5294 Apr, [facility] Pap smear of vagina R87.622 [place] [address] [place] [address] 10299- 7336 Apr, Low back pain M54.5 [facility] [id number] [place] [address] 97048- 4096 Mar, [facility] [id number] [place] [address] 24526- 9673 Mar, Low back pain M54.5 [facility] [id number] [place] [address] 25290- 7596 Mar, Encounter for Papanicolaou smear for cervical cancer screening Z12.4 ; Encounter for routine gynecological examination Z01.419 and Breast cancer screening Z12.39 [facility] [id number] [place] [address] 18790- 6292 Mar, Hypothyroidism, unspecified type E03.9 [facility] [id number] [place] [address] 42885- 0905 14 Mar, 2016 Low back pain M54.5 ; Other chronic pain G89.29 ; Hypothyroid E03.9 and Hypothyroidism, unspecified type E03.9 [facility] [address] [place] [address] 09154- 7788 Mar, Major depressive disorder, recurrent, moderate F33.1 and Attention-deficit hyperactivity disorder, predominantly inattentive type F90.0 [facility] [address] [place] [address] 02946 -4932 Mar, Bronchitis J40 [facility] [id number] [place] [address] 89220- 5579 Jan, [facility] [id number] [place] [address] 93343- 4764 Jan, [facility] [address] [place] [address] 74057- 8886 Jan, Insomnia G47.00 [facility] [id number] [place] [address] 13775- 9968 December, [facility] [id number] [place] [address] 27299- 4342 December, Major depressive disorder in partial remission F32.4 and Attention-deficit hyperactivity disorder, unspecified type F90.9 [facility] [id number] [place] [address] 05878- 1408 December, [facility] [id number] [place] [address] 33857- 7565 December, [facility] [id number] [place] [address] 41977- 0790 Dec, [facility] [id number] [place] [address] 47769- 8970 Dec, Major depressive disorder, recurrent episode, moderate 296.32 and Attention deficit disorder of childhood without mention of hyperactivity 314.00 [facility] [address] [place] [address] 06851- 0781 Dec, Major depressive disorder, recurrent episode, mild 296.31 ; ADD (attention deficit disorder) F90.0 and Hyperlipidemia E78.5 [facility] [id number] [place] [address] 88194- 7666 Dec, Insomnia G47.00 [facility] [id number] [place] [address] 47379- 5747 Dec, Attention-deficit hyperactivity disorder, predominantly inattentive type F90.0 [facility] [id number] [place] [address] 49016- 2707 Oct, Restless legs syndrome G25.81 [facility] [id number] [place] [address] 27036- 5295 Oct, Hypothyroidism, unspecified type E03.9 [facility] [id number] [place] [address] 02668- 4555 Oct, [facility] [id number] [place] [address] 06952- 9048 16 Nov, 2015 [facility] [id number] [place] [address] 96351- 4169 15 Nov, 2015 Hypothyroid E03.9 and Chronic hepatitis K73.9 [facility] [id number] [place] [address] 41614- 1355 Oct, [facility] [address] [place] [address] 69796- 2449 08 Nov, 2015 Restless legs syndrome G25.81 ; Chronic hepatitis K73.9 ; Hypertension I10 ; Hypothyroid E03.9 and Breast cancer screening Z12.39 [facility] [address] [place] [address] 49992- 5631 Oct, [facility] [id number] [place] [address] 47185- 8080 Oct, [facility] [id number] [place] [address] 18206- 3784 Oct, [facility] [id number] [place] [address] 59703- 6298 Oct, [facility] [address] [address]- 2669 Oct, [facility] [address] [address]- 7652 Oct, [facility] [address] [address]- 4919 Oct, [facility] [id number] [place] [address] 49973- 1092 Sep, [facility] [address] [place] [address] 40001- 9586 Sep, Attention-deficit hyperactivity disorder, predominantly inattentive type F90.0 and Major depressive disorder in partial remission F32.4 [facility] [id number] [place] [address] 02272- 8664 Sep, [facility] [id number] [place] [address] 73077- 0659 Aug, [facility] [address] [address]- 0241 Aug, [facility] [address] [place] [address] 43836- 7095 Aug, Major depressive disorder, recurrent, mild F33.0 ; Attention -deficit hyperactivity disorder, unspecified type F90.9 and Generalized anxiety disorder F41.1 [facility] [address] [address]- 6448 08 Aug, 2015 Chronic hepatitis K73.9 ; Primary osteoarthritis of both knees M17.0 and Neuralgia M79.2 [facility] [address] [address]- 2025 Jul, [facility] [address] [address]- 7289 Jul, [facility] [address] [address]- 8360 Jul, [facility] [id number] [place] [address] 21683- 5536 Jul, [facility] [id number] [place] [address] 27822- 7452 Jun, [facility] [id number] [place] [address] 04522- 6626 Jun, Bronchitis J40 and Encounter for immunization Z23 [facility] [address] 32320- 9719 30 May, 2015 [facility] [address] 37932- 2533 12 May, 2015 [facility] [id number] [place] [address] 52036- 3008 10 May, 2015 [facility] [address] 85380- 9890 10 May, 2015 Hypokalemia 276.8 [facility] [id number] [place] [address] 58188- 5600 08 May, 2015 Major depressive disorder, recurrent episode, mild 296.31 ; Attention deficit disorder of childhood without mention of hyperactivity 314.00 and Generalized anxiety disorder 300.02 [facility] [id number] [place] [address] 10819- 5336 03 May, 2015 Hypertension 401.9 and Hypokalemia 276.8 [facility] [id number] [place] [address] [phone] May, [facility] [id number] [place] [address] [phone] Apr, [facility] [address] [phone] Apr, [facility] [id number] [place] [address] [id number] Apr, [facility] [address] [phone]- [phone] Apr, [facility] [address] [address] Mar, [facility] [id number] [id number] Mar, [facility] [id number] [address]- 0377 Mar, [facility] [id number] [place] [address]259- 5398 Mar, [facility] [id number] [place] [address] 75990- 2427 Mar, Arthritis of both knees 716.96 ; Hepatitis B 070.30 ; Hypertension 401.9 ; Carpal tunnel syndrome 354.0 and Cubital tunnel syndrome 354.2 [facility] [id number] [place] [address] 88019- 1808 Mar, [facility] [address] [address] 00[address] Mar, [facility] [id number] [place] [address] 70972- 2514 Mar, 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, chronic, without mention of hepatitis delta 070.32 ; Chronic hepatitis C without mention of hepatic coma 070.54 and Major depressive disorder, recurrent episode, moderate 296.32 [facility] [address] [address] Jan, [facility] [id number] [address] 7[address] Jan, Major depressive disorder, recurrent episode, mild 296.31 and Attention deficit disorder of childhood without mention of hyperactivity 314.00 [facility] [address] [address] 0048 Jan, [facility] [address] [address] 9790 Jan, [facility] [address] [address] [address] December, Attention deficit disorder of childhood without mention of hyperactivity 314.00 ; Major depressive disorder, recurrent episode, mild 296.31 and Generalized anxiety disorder 300.02 [facility] [address] [address] 7924 December, [facility] [id number] [place] [address] 39391- 8210 14 Dec, 2014 [facility] [address] [id number] [address] 6031 Dec, [facility] [id number] [place] [address] 91969- 0902 19 Oct, 2014 [facility] [address] [address] [address]109 19 Oct, 2014 [facility] [address] [address]- 8134 18 Oct, 2014 [facility] [address] [address]- 6451 18 Oct, 2014 [facility] [address] [address]- 7632 18 Oct, 2014 [facility] [address] [address]- 4772 18 Oct, 2014 [facility] [address] [address]- 7560 16 Oct, 2014 [facility] [address] 5899 13 Oct, 2014 [facility] [id number] 8503 13 Oct, 2014 [facility] [address] [id number] [address]- 0021 12 Oct, 2014 [facility] [address] [address]- 2562 Oct, [facility] [place] [facility] [address] [id number] [place] [address]- 0737 Oct, [facility] [place] [facility] [address] [id number] [place] [address]- 4135 Oct, [facility] [place] [facility] [address] [facility] [id number] [place] [address]- 2095 Oct, [facility] [place] [facility] [address] [id number] [place] [address]- 6167 05 Oct, 2014 [facility] [place] [facility] [address] [id number] [place] [address]- 7338 Oct, 2014 [facility] [place] [facility] [address] [facility] [id number] [place] [address]- 4516 Oct, 2014 [facility] [place] [facility] [address] [facility] [id number] [place] [address]- 3878 25 Oct, 2014 [facility] [place] [facility] [address] [facility] [id number] [place] [address]- 7892 Oct, 2014 [facility] [place] [facility] [address] [facility] [id number] [place] [address]- 3421 18 Oct, 2014 [facility] [place] [facility] [address] [facility] [id number] [place] [address]- 4864 Oct, 2014 [facility] [place] [facility] [address] [facility] [id number] [place] [address]- 6502 17 Oct, 2014 [facility] [place] [facility] [address] [facility] [id number] [place] [address]- 5469 Oct, 2014 [facility] [place] [facility] [address] [facility] [id number] [place] [address]- 1588 Oct, 2014 [facility] [place] [facility] [address] [facility] [id number] [place] [address]- 7029 Oct, 2014 [facility] [place] [facility] [address] [facility] [id number] [place] [address]- 7289 Oct, [facility] [place] [facility] [address] [id number] [place] [address]- 2594 Oct, [facility] [place] [facility] [address] [id number] [place] [address]- 0952 Oct, [facility] [place] [facility] [address] [id number] [place] [address]- 7408 Sep, [facility] [place] [facility] [address] [id number] [place] [address]- 9204 Sep, [facility] [place] [facility] [address] [id number] [place] [address]- 9398 Sep, [facility] [place] [facility] [address] [id number] [place] [address]- 6797 Sep, [facility] [place] [facility] [address] [id number] [place] [address]- 2699 Sep, [facility] [place] [facility] [address] [id number] [place] [address]- 4390 Sep, [facility] [place] [facility] [address] [id number] [place] [address]- 5614 Sep, [facility] [place] [facility] [address] [id number] [place] [address]- 3730 Sep, [facility] [place] [facility] [address] [id number] [place] [address]- 2653 Sep, [facility] [place] [facility] [address] [id number] [address]- 3022 Sep, [facility] [place] [facility] [address] [id number] [place] [address]- 5336 Sep, [facility] [place] [facility] [address] [id number] [place] [address]- 4636 Sep, [facility] [place] [facility] [address] [id number] [place] [address]- 8856 Sep, [facility] [place] [facility] [address] [id number] [place] [address]- 6141 Sep, [facility] [address] [id number] [place] [address]- 8043 Sep, [facility] [place] [facility] [address] [id number] [place] [address]- 1950 Sep, [facility] [place] [facility] [address] [id number] [place] [address]- 0472 Aug, [facility] [place] [facility] [address] [id number] [place] [address]- 8183 Aug, [facility] [place] [facility] [address] [id number] [place] [address]- 7601 Aug, [facility] [place] [facility] [address] [id number] [place] [address]- 0411 Aug, [facility] [place] [facility] [address] [id number] [place] [address]- 6628 Aug, [facility] [place] [facility] [address] [id number] [place] [address]- 5022 Aug, [facility] [place] [facility] [address] [id number] [place] [address]- 0130 Aug, [facility] [place] [facility] [address] [id number] [place] [address]- 3012 Aug, [facility] [place] [facility] [address] [id number] [place] [address]- 3657 19 Aug, 2014 [facility] [place] [facility] [address] [id number] [place] [address]- 8280 18 Aug, 2014 [facility] [place] [facility] [address] [id number] [place] [address]- 4615 18 Aug, 2014 [facility] [place] [facility] [address] [id number] [place] [address]- 2936 16 Aug, 2014 [facility] [place] [facility] [address] [id number] [place] 9114 16 Aug, 2014 [facility] [place] [facility] [address] [id number] [place] [address]- 9722 Aug, [facility] [place] [facility] [address] [id number] [place] [address]- 7054 Aug, [facility] [place] [facility] [address] [id number] [place] [address]- 8521 Aug, [facility] [place] [facility] [address] [id number] [place] [address]- 5528 Aug, [facility] [place] [facility] [address] [id number] [place] [address]- 7883 Aug, [facility] [place] [facility] [address] [id number] [place] [address]- 3044 Aug, [facility] [place] [facility] [address] [id number] [place] [address]- 7868 Aug, [facility] [place] [facility] [address] [id number] [place] [address]- 4001 Aug, [facility] [place] [facility] [address] [id number] [place] [address]- 3950 Aug, [facility] [place] [facility] [address] [id number] [place] [address]- 6840 Aug, [facility] [place] [facility] [address] [id number] [place] [address]- 2432 Aug, [facility] [place] [facility] [address] [id number] [place] [address]- 3337 Aug, [facility] [place] [facility] [address] [id number] [place] [address]- 5914 Jul, [facility] [place] [facility] [address] [id number] [place] [address]- 7191 Jul, [facility] [place] [facility] [address] [id number] [place] [address]- 0036 Jul, [facility] [place] [facility] [address] [id number] [place] [address]- 1207 Jul, [facility] [place] [facility] [address] [id number] [place] [address]- 1316 Jul, [facility] [place] [facility] [address] [id number] [place] [address]- 0713 Jul, [facility] [place] [facility] [address] [id number] [place] [address]- 8343 Jun, [facility] [place] [facility] [address] [id number] [place] [address]- 3470 Jun, [facility] [place] [facility] [address] [id number] [place] [address]- 3404 Jun, [facility] [place] [facility] [address] [id number] [place] [address]- 6688 Jun, [facility] [place] [facility] [address] [id number] [place] [address]- 6245 Jun, [facility] [place] [facility] [address] [id number] [place] [address]- 4268 Jun, [facility] [place] [facility] [address] [id number] [place] [address]- 0074 Jun, [facility] [place] [facility] [address] [id number] [place] [address]- 1391 Jun, [facility] [place] [facility] [address] [id number] [address]- 9069 16 May, 2014 [facility] [place] [facility] [address] [id number] [address]- 5263 16 May, 2014 [facility] [place] [facility] [address] [id number] [place] [address]- 9425 15 May, 2014 [facility] [place] [facility] [address] [id number] [place] [address]- 6754 15 May, 2014 [facility] [place] [facility] [address] [id number] [place] [address]- 7896 08 May, 2014 [facility] [place] [facility] [address] [id number] [place] [address]- 2099 08 May, 2014 [facility] [place] [facility] [address] [id number] [place] [address]- 7459 May, [facility] [place] [facility] [address] [id number] [place] [address]- 2701 May, [facility] [place] [facility] [address] [id number] [place] [address]- 7984 Apr, [facility] [place] [facility] [address] [id number] [place] [address]- 4983 Apr, [facility] [place] [facility] [address] [id number] [place] [address]- 9025 Apr, [facility] [place] [facility] [address] [id number] [place] [address]- 8519 Apr, [facility] [place] [facility] [address] [id number] [place] [address]- 1424 Apr, [facility] [place] [facility] [address] [id number] [place] [address]- 7344 Apr, [facility] [place] [facility] [address] [id number] [place] [address]- 0719 Apr, [facility] [place] [facility] [address] [id number] [place] [address]- 1942 Apr, [facility] [place] [facility] [address] [id number] [place] [address]- 2541 Apr, [facility] [place] [facility] [address] [id number] [place] [address]- 1672 Apr, [facility] [place] [facility] [address] [id number] [place] [address]- 9926 Apr, [facility] [place] [facility] [address] [id number] [place] [address]- 6780 Apr, [facility] [place] [facility] [address] [id number] [place] [address]- 4435 Apr, [facility] [place] [facility] [address] [id number] [place] [address]- 5173 Mar, [facility] [place] [facility] [address] [id number] [place] [address]- 0310 Mar, [facility] [place] [facility] [address] [id number] [place] [address]- 2528 Mar, [facility] [place] [facility] [address] [id number] [place] [address]- 8598 Mar, [facility] [place] [facility] [address] [id number] [place] [address]- 2158 Jan, [facility] [place] [facility] [address] [id number] [place] [address]- 7767 Jan, [facility] [place] [facility] [address] [id number] [place] [address]- 4273 December, [facility] [place] [facility] [address] [id number] [place] [address]- 4469 December, [facility] [place] [facility] [address] [id number] [place] [address]- 5086 December, [facility] [place] [facility] [address] [id number] [place] [address]- 3177 December, [facility] [place] [facility] [address] [id number] [place] [address]- 3657 December, [facility] [place] [facility] [address] [id number] [place] [address]- 1591 December, [facility] [place] [facility] [address] [id number] [place] [address]- 4750 December, [facility] [place] [facility] [address] [id number] [place] [address]- 7298 December, [facility] [place] [facility] [address] [id number] [place] [address]- 2419 Dec, [facility] [place] [facility] [address] [id number] [place] [address]- 2117 Dec, [facility] [place] [facility] [address] [id number] [place] [address]- 9700 Dec, [facility] [place] [facility] [address] [id number] [place] 2300 Dec, [facility] [place] [facility] [address] [facility] [id number] [place] [address]- 9033 Oct, [facility] [place] [facility] [address] [id number] [place] [address]- 2975 Oct, [facility] [place] [facility] [address] [id number] [place] [address]- 5907 Oct, [facility] [place] [facility] [address] [id number] [place] [address]- 6518 Oct, [facility] [place] [facility] [address] [facility] [id number] [place] [address]- 6515 Oct, [facility] [place] [facility] [address] [facility] [id number] [place] [address]- 9424 Oct, [facility] [place] [facility] [address] [id number] [place] [address]- 4405 Oct, [facility] [place] [facility] [address] [facility] [id number] [place] [address]- 6697 Oct, [facility] [place] [facility] [address] [id number] [place] [address]- 7637 Oct, [facility] [place] [facility] [address] [id number] [place] [address]- 6691 Oct, [facility] [place] [facility] [address] [id number] [place] [address]- 1407 Oct, [facility] [place] [facility] [address] [id number] [place] [address]- 5743 Oct, [facility] [place] [facility] [address] [facility] [id number] [place] [address]- 7804 Oct, [facility] [place] [facility] [address] [id number] [place] [address]- 4639 Oct, 2013 [facility] [place] [facility] [address] [id number] [place] [address]- 3786 Oct, 2013 [facility] [place] [facility] [address] [id number] [place] [address]- 9596 Oct, 2013 [facility] [place] [facility] [address] [id number] [place] [address]- 4936 Oct, 2013 [facility] [place] [facility] [address] [id number] [place] [address]- 2211 Oct, [facility] [place] [facility] [address] [id number] [place] [address]- 8701 Oct, [facility] [place] [facility] [address] [id number] [place] [address]- 6214 Oct, [facility] [place] [facility] [address] [id number] [place] [address]- 8139 Oct, [facility] [place] [facility] [address] [id number] [place] [address]- 7853 Oct, [facility] [place] [facility] [address] [id number] [place] [address]- 1559 Sep, [facility] [place] [facility] [address] [id number] [place] [address]- 9032 Sep, [facility] [place] [facility] [address] [id number] [place] [address]- 9655 Sep, [facility] [place] [facility] [address] [id number] [place] [address]- 6603 Sep, [facility] [place] [facility] [address] [id number] [place] [address]- 3326 Aug, [facility] [place] [facility] [address] [id number] [place] [address]- 9319 Aug, [facility] [place] [facility] [address] [id number] [place] [address]- 6726 Aug, [facility] [address] [id number] [place] [address]- 6666 Aug, [facility] [place] [facility] [address] [id number] [place] [address]- 5176 Aug, [facility] [address] [id number] [place] [address]- 9606 Aug, [facility] [place] [facility] [address] [id number] [place] [address]- 9787 Aug, [facility] [address] [id number] [place] [address]- 2827 Aug, [facility] [place] [facility] [address] [id number] [place] 6225 Aug, [facility] [address] [id number] [place] [address]- 8902 Jul, [facility] [place] [facility] [address] [id number] [place] [address]- 9949 Jul, [facility] [place] [facility] [address] [id number] [place] [address]- 1675 Jul, [facility] [place] [facility] [address] [facility] [id number] [place] [address]- 7907 Jul, [facility] [place] [facility] [address] [id number] [place] [address]- 1840 Jul, [facility] [place] [facility] [address] [id number] [address]- 3118 Jul, [facility] [place] [facility] [address] [id number] [place] [address]- 9968 Jul, [facility] [place] [facility] [address] [facility] [id number] [place] [address]- 0728 Jul, [facility] [place] [facility] [address] [id number] [place] [address]- 7201 Jun, [facility] [place] [facility] [address] [id number] [place] [address]- 7610 Jun, [facility] [place] [facility] [address] [id number] [place] [address]- 8741 Jun, [facility] [place] [facility] [address] [id number] [place] [address]- 4692 Jun, [facility] [place] [facility] [address] [id number] [place] [address]- 5253 Jun, [facility] [place] [facility] [address] [id number] [place] [address]- 7610 Jun, [facility] [place] [facility] [address] [id number] [place] [address]- 1389 Jun, [facility] [place] [facility] [address] [id number] [place] [address]- 6514 Jun, [facility] [place] [facility] [address] [id number] [place] [address]- 8727 30 May, 2013 [facility] [place] [facility] [address] [id number] [place] [address]- 3250 26 May, 2013 [facility] [place] [facility] [address] [id number] [place] [address]- 6175 23 May, 2013 [facility] [place] [facility] [address] [id number] [place] [address]- 8356 19 May, 2013 [facility] [place] [facility] [address] [id number] [place] [address]- 4573 12 May, 2013 [facility] [place] [facility] [address] [id number] [place] [address]- 2207 11 May, 2013 [facility] [place] [facility] [address] [id number] [place] [address] Apr, [facility] [place] [facility] [address] [id number] [place] [address] Apr, [facility] [place] [facility] [address] [id number] [place] [address] Apr, [facility] [place] [facility] [address] [id number] [place] [address] Apr, [facility] [place] [facility] [address] [id number] [place] [address] Apr, [facility] [place] [facility] [address] [id number] [place] [address] Apr, [facility] [place] [facility] [address] [id number] [place] [address] Apr, [facility] [place] [facility] [address] [id number] [place] [address] Mar, [facility] [place] [facility] [address] [id number] [place] [address] Mar, [facility] [place] [facility] [address] [id number] [place] [address]- [address] Mar, [facility] [place] [facility] [address] [id number] [place] [address] Mar, [facility] [place] [facility] [address] [id number] [place] [address] Mar, [facility] [place] [facility] [address] [id number] [place] [address] Mar, [facility] [place] [facility] [address] [id number] [place] [address] Mar, [facility] [place] [facility] [address] [id number] [place] [address] Jan, [facility] [place] [facility] [address] [id number] [place] [address] Jan, [facility] [place] [facility] [address] [id number] [place] [address] Jan, [facility] [place] [facility] [address] [id number] [place] [address] Jan, [facility] [place] [facility] [address] [id number] [place] [address] 12 Jan, 2013 [facility] [address] [id number] [place] [address] Jan, [facility] [address] [id number] [place] [address] 9686 Jan, [facility] [address] [id number] [place] [address] December, [facility] [address] [id number] [place] [address] December, [facility] [address] [id number] [place] [address] December, [facility] [address] [id number] [place] [address] December, [facility] [address] [id number] [place] [address]85 30 Dec, 2012 [facility] [address] [id number] [place] [address]6 Dec, [facility] [address] [id number] [place] [address] 69[address] Dec, [facility] [address] [id number] [place] [address] 29 Oct, 2012 [facility] [address] [id number] [place] [address]83 Oct, [facility] [address] [id number] [place] [address] Oct, [facility] [address] [id number] [place] [address] 92[address] Oct, [facility] [address] [id number] [place] [address] Oct, [facility] [address] [id number] [place] [address] Oct, [facility] [address] [id number] [place] [address] Oct, [facility] [place] [facility] [address] [id number] [place] [address] Oct, [facility] [address] [id number] [place] [address] Oct, [facility] [address] [id number] [place] [address] 08 Oct, 2012 [facility] [address] [id number] [place] [address] Oct, [facility] [address] [id number] [place] [address] Sep, [facility] [address] [id number] [place] [address]398 Sep, [facility] [address] [id number] [place] [address] Sep, [facility] [address] [id number] [place] [address] Aug, [facility] [address] [id number] [place] [address]- 67[address] Aug, [facility] [address] [id number] [address] Aug, [facility] [place] [facility] [address] [id number] [address] Aug, [facility] [place] [facility] [address] [id number] [place] [address]- 39[address] Jul, [facility] [place] [facility] [address] [id number] [place] [address] 4079 Jul, [facility] [place] [facility] [address] [facility] [id number] [place] [address] Jul, [facility] [place] [facility] [address] [id number] [place] [address]- 5510 Jul, [facility] [place] [facility] [address] [id number] [place] [address]- 25[address] Jul, [facility] [place] [facility] [address] [id number] [place] [address] Jul, [facility] [place] [facility] [address] [id number] [place] [address]- 0495 Jul, [facility] [place] [facility] [address] [id number] [place] [address]- 224[address] Jul, [facility] [place] [facility] [address] [id number] [place] [address]- 78[address] Jun, [facility] [place] [facility] [address] [id number] [place] [address]- 48[address] Jun, [facility] [place] [facility] [address] [facility] [id number] [place] [address]- 0185 Jun, [facility] [place] [facility] [address] [id number] [place] [address] 280[address] Jun, [facility] [place] [facility] [address] [facility] [id number] [place] [address]- [address]678 Jun, [facility] [place] [facility] [address] [facility] [id number] [place] [address]- [address] 26 May, 2012 [facility] [place] [facility] [address] [id number] [place] [address] 20 May, 2012 [facility] [place] [facility] [address] [id number] [place] [address] 18 Sep2011 [facility] [place] [facility] [address] [id number] [place] [address] 09 May, 2012 [facility] [place] [facility] [address] [facility] [id number] [place] [address] 04 May, 2012 [facility] [place] [facility] [address] [facility] [id number] [place] [address] Apr, [facility] [place] [facility] [address] [id number] [place] [address] Apr, [facility] [place] [facility] [address] [id number] [place] [address] Apr, [facility] [place] [facility] [address] [id number] [place] [address] Apr, [facility] [place] [facility] [address] [id number] [place] [address] Apr, [facility] [place] [facility] [address] [id number] [place] [address] Apr, [facility] [place] [facility] [address] [id number] [place] [address] Apr, [facility] [place] [facility] [address] [id number] [place] [address] Mar, [facility] [place] [facility] [address] [id number] [place] [address] Mar, [facility] [place] [facility] [address] [id number] [place] [address] Mar, [facility] [place] [facility] [address] [id number] [place] [address] Mar, [facility] [place] [facility] [address] [id number] [place] [address] Jan, [facility] [place] [facility] [address] [id number] [place] [address] Jan, [facility] [place] [facility] [address] [id number] [place] [address] Jan, [facility] [place] [facility] [address] [id number] [place] [address] Jan, [facility] [place] [facility] [address] [id number] [place] [address] Jan, [facility] [place] [facility] [address] [id number] [place] [address] Jan, [facility] [place] [facility] [address] [id number] [place] [address] December, [facility] [place] [facility] [address] [id number] [place] [address] December, [facility] [place] [facility] [address] [id number] [place] [address] December, [facility] [place] [facility] [address] [id number] [place] [address] December, [facility] [place] [facility] [address] [id number] [place] [address] Dec, [facility] [place] [facility] [address] [id number] [place] [address] Dec, [facility] [place] [facility] [address] [id number] [place] [address] Oct, [facility] [place] [facility] [address] [id number] [place] [address] Oct, [facility] [place] [facility] [address] [id number] [place] [address] Oct, [facility] [place] [facility] [address] [id number] [place] [address] Oct, [facility] [place] [facility] [address] [id number] [place] [address] Oct, [facility] [place] [facility] [address] [id number] [place] [address] Oct, [facility] [place] [facility] [address] [id number] [place] [address] 1390 Oct, [facility] [place] [facility] [address] [id number] [place] [address] Oct, [facility] [place] [facility] [address] [id number] [place] [address] Oct, [facility] [place] [facility] [address] [id number] [place] [address] Oct, [facility] [address] [id number] [place] [address] Oct, [facility] [place] [facility] [address] [id number] [place] [address] Sep, [facility] [address] [id number] [place] [address] 44[address] Sep, [facility] [address] [id number] [place] [address] Sep, [facility] [address] [id number] [place] [address] Sep, [facility] [address] [id number] [place] [address] Sep, [facility] [address] [id number] [place] [address] Sep, [facility] [address] [id number] [place] [address] 1404 Sep, [facility] [address] [id number] [place] [address] 6[address] Sep, [facility] [address] [id number] [place] [address] Aug, [facility] [address] [id number] [place] [address] 0067 Aug, [facility] [address] [id number] [place] [address] Aug, [facility] [place] [facility] [address] [id number] [place] [address] Jul, [facility] [place] [facility] [address] [id number] [place] [address] Jul, [facility] [place] [facility] [address] [id number] [place] [address] 37[address] 18 Jul, 2011 [facility] [place] [facility] [address] [id number] [place] [address] 17 Jul, 2011 [facility] [place] [facility] [address] [id number] [place] [address]14 08 Jul, 2011 [facility] [place] [facility] [address] [id number] [place] [address]- 1338 Jul, [facility] [place] [facility] [address] [id number] [place] [address] 31 Jun, 2011 [facility] [place] [facility] [address] [id number] [place] [address] Jun, [facility] [place] [facility] [address] [id number] [place] [address] 285[address] Mar, [facility] [place] [facility] [address] [id number] [place] [address]25 14 Dec, 2010 [facility] [place] [facility] [address] [id number] [place] [address]- 7910 14 Oct, 2010 [facility] [place] [facility] [address] [id number] [place] [address] 9935 Aug, [facility] [place] [facility] [address] [id number] [place] [address]- 0609 30 Jul, 2010 [facility] [place] [facility] [address] [id number] [address] Jul, [facility] [place] [facility] [address] [id number] [address] Jul, [facility] [place] [facility] [address] [id number] [place] [address]- 5570 Jul, [facility] [place] [facility] [address] [id number] [place] [address]- 9284 08 Jul, 2010 [facility] [place] [facility] [address] [id number] [place] [address]- [address]40 22 Aug, 2009 [facility] [place] [facility] [address] [id number] [address] 15 Aug, 2009 [facility] [id number] [address] 14 Aug, 2009 [facility] [id number] [address] Aug, [facility] [id number] [address] Jul, [facility] [id number] [address] 16[address] Jul, [facility] [id number] [place] [address] Jul, [facility] [id number] [address] Jul, [facility] [id number] [address] Jun, [facility] [address] [id number] [address] Jun, IMMUNIZATIONS No Known Immunizations SOCIAL HISTORY Never Assessed REASON FOR VISIT amalia kat/darlyn--Abdullahi RAUSCH PLAN OF CARE Activity Details Follow Up 3 Months Reason:AMALIA f/darlyn VITAL SIGNS Height 64 in 2017-07-05 Weight 215.1 lbs 2017-07-05 Heart Rate 68 bpm 2017-07-05 Respiratory Rate 22 2017-07-05 BMI 36.92 kg/m2 2017-07-05 Blood pressure systolic 142 mmHg 2017-07-05 Blood pressure diastolic 98 mmHg 2017-07-05 MEDICATIONS Medication Instructions Dosage Frequency Start Date End Date Duration Status Lidocaine 5 % Externally 4 times a day Apply 2 grams to affected area as needed 6h Apr, 90 days Active Fish Oil 1000 MG Orally 3 times a day 1 capsule 8h Active Folic Acid 1 MG Orally Once a day 1 tablet 24h December, December, 90 days Active Pantoprazole Sodium 40 MG Orally Once a day 1 tablet 24h 90 Active Requip 1 MG Orally 3 times a day 1 tablet 8h 90 days Active Ventolin HFA 108 (90 Base) MCG/ACT Inhalation every 6 hrs 2 puffs as needed 6h Jun, Active Doxepin HCl 25 MG Orally Once a day 1-2 capsules at bedtime 24h Active Toprol XL 100 MG Orally Once a day 1 tablet at bedtime 24h 90 Active Loratadine 10 mg Orally Once a day as needed for allergies 1 tablet Apr, Active Cyclobenzaprine HCl 10 mg Orally 2 times a day prn back pain 1 tablet as needed Oct, 10 Active Effexor XR 150 MG Orally Once a day 2 capsule with food 24h Active Levothyroxine Sodium 100 MCG Orally Once a day 1 tablet 24h 30 Active Pravastatin Sodium 80 MG TAKE ONE TABLET BY MOUTH AT BEDTIME (AVOID GRAPEFRUIT JUICE AND PRODUCTS WITH GRAPEFRUIT) 90 Active RESULTS No Results PROCEDURES Procedure Date Ordered Result Body Site [facility] VISIT ESTABLISHED PATIENT Jul 05, 2017 INSTRUCTIONS MEDICATIONS ADMINISTERED No Known Medications [...]
--- OUTSIDE RECORDS SUMMARY | 2018-03-17 11:05 | XMS REPORT ---
Author Author 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 Organization [facility] Address [address] [place] [address] Care Team Providers Care Paper Machine Supervisor Name Role Phone 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 Unavailable PROBLEMS Type Condition ICD9-CM Code OVX59-EI Code Onset Dates Condition Status SNOMED Code Problem 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 Active 23902361 Problem Attention-deficit hyperactivity disorder, predominantly inattentive type F90.0 Active 95264930 Problem Obstructive sleep apnea G47.33 Active 14225121 Problem Primary insomnia F51.01 Active 2034645 Problem Neuralgia M79.2 Active 94593962 Problem Cannabis use disorder, mild, abuse F12.10 Active 75767895 Problem Folic acid deficiency E53.8 Active 326601649 Problem Restless legs G25.81 Active 57984896 Problem Major depressive disorder, recurrent, mild F33.0 Active 43338021 Problem Generalized anxiety disorder F41.1 Active 03641123 Problem Major depressive disorder, recurrent episode, moderate F33.1 Active 892675084 Problem Hypertension I10 Active 98898649 Problem Hyperlipidemia E78.5 Active 80193328 Problem Primary osteoarthritis of both knees M17.0 Active 409779950 Problem Chronic hepatitis K73.9 Active 72541926 Problem Low back pain M54.5 Active 674189110 Problem Chronic viral hepatitis B without delta-agent B18.1 Active 531756135 Problem Insomnia G47.00 Active 073326817 Problem Hypothyroid E03.9 Active 71425179 Problem Depression, major, recurrent, mild F33.0 Active 718905950 Problem Obesity due to excess calories, unspecified obesity severity E66.09 Active 888890259 ALLERGIES No Information ENCOUNTERS Encounter Location Date Diagnosis [facility] [address] [facility] [id number] [address] December, [facility] [address] [facility] [id number], [place] [address] December, [facility] [id number] [place] [address] 24763- 1667 Dec, Bone pain M89.8X9 [facility] [id number] [place] [address] 02107- 1191 Dec, [facility] [address] [address]- [address] Oct, [facility] [address] 96994- 7514 Oct, Syncope, unspecified syncope type R55 ; Primary insomnia F51.01 ; Dry mouth R68.2 and Cannabis use disorder, mild, abuse F12.10 [facility] [id number] [place] [address] 55310- 4837 Oct, [facility] [address] 06233- 6761 Sep, [facility] [address] 89388- 2037 Sep, [facility] [address] 12833- 2279 Sep, [facility] [id number] [place] [address] [id number] Sep, Dental examination Z01.20 [facility] [address] 84006- 6399 Sep, Dental examination Z01.20 [facility] [id number] [place] [address] 24422- 4250 Sep, Sinus congestion R09.81 ; Mouth sores K13.79 ; Low back pain M54.5 and Mouth swelling R22.0 [facility] [id number] [place] [address] 44507- 4876 Aug, Low back pain M54.5 [facility] [address] 28597- 0282 Aug, Low back pain M54.5 [place] [address] 7[address]88- 0800 Jul, [place] [address] [address]- [address] Jul, 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 ; Encounter for immunization Z23 ; Hypothyroid E03.9 ; Decreased renal function N28.9 and Muscle cramps R25.2 [place] [address] 66411- 5876 Jul, [place] [address] 49529- 9653 Jul, [place] [address] 81595- 6629 Jul, [address] 6[address]12- 8525 Jul, Major depressive disorder, recurrent, mild F33.0 [place] [address] 35637- 3226 Jul, Acquired cyst of kidney N28.1 ; Acidosis E87.2 and Hyperkalemia E87.[address] [address]14- 2019 Jul, Major depressive disorder, recurrent, mild F33.0 ; Attention -deficit hyperactivity disorder, predominantly inattentive type F90.0 and Generalized anxiety disorder F41.1 [place] [id number] [place] [address] 11134- 9841 Jul, Low back pain M54.[address] 64656- 0264 Jun, Cough R05 ; Low back pain M54.5 and Pre-syncope R55 [address] 71429- 7882 Jun, Low back pain M54.5 [facility] [address] [id number] 04 Jun, 2017 Dental caries K02.9 [facility] [id number] [place] [address] 32038- 0558 Jun, [facility] [id number] [place] [address] 36133- 2945 Jun, Major depressive disorder, recurrent, mild F33.0 ; Attention -deficit hyperactivity disorder, predominantly inattentive type F90.0 and Generalized anxiety disorder F41.1 [facility] [id number] [place] [address] 75210- 0098 13 May, 2017 Vertigo R42 ; Confusion R41.0 ; Weakness R53.1 and Vision changes H53.9 [facility] [id number] [place] [address] 90252- 2396 May, [facility] [id number] [place] [address] 21159- 6816 May, [facility] [id number] [place] [address] 31554- 2719 08 May, 2017 Low back pain M54.5 [facility] [id number] [place] [address] 49985- 4536 05 May, 2017 Major depressive disorder, recurrent, mild F33.0 ; Attention -deficit hyperactivity disorder, predominantly inattentive type F90.0 and Generalized anxiety disorder F41.1 [facility] [address] [place] [address] 33221- 5015 May, [facility] [id number] [place] [address] 69252- 6835 May, Acute worsening of stage 3 chronic kidney disease N18.3 [facility] [id number] [place] [address] 40196- 1315 Apr, [facility] [id number] [place] [address] 85967- 4961 14 Aug, 2017 Acute allergic rhinitis due to pollen, unspecified seasonality J30.1 ; Restless legs G25.81 and Low back pain M54.5 [facility] [address] 07940- 8673 10 Apr, 2017 Primary osteoarthritis of both knees M17.0 [facility] [address] 55496- 6219 Apr, Generalized anxiety disorder F41.1 [facility] [address] 53679- 2400 Apr, Major depressive disorder, recurrent, mild F33.0 ; Attention -deficit hyperactivity disorder, predominantly inattentive type F90.0 and Generalized anxiety disorder F41.1 [facility] [address] 70254- 3179 Apr, [facility] [address] 18049- 7888 Mar, Major depressive disorder, recurrent episode, moderate F33.1 ; Generalized anxiety disorder F41.1 and ADHD, predominantly inattentive type F90.0 [facility] [address] [address]96 -4112 Mar, Abscess L02.91 [facility] [address] 80367- 8459 Mar, 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 [facility] [address] 10118- 8021 Mar, Decreased renal function N28.9 [facility] [address] [id number] Mar, Dental examination Z01.20 [facility] [address] 23842- 1132 17 Mar, 2017 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 [facility] [address] 80423- 9396 Mar, 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 [facility] [address] [place] [id number] 14 Mar, 2017 Dental examination Z01.20 and Dental caries K02.9 [place] [id number] [place] [address] 43420- 9594 Mar, Chronic viral hepatitis B without delta-agent B18.1 ; Folic acid deficiency E53.8 ; 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 and Decreased renal function N28.9 [place] [id number] [place] [address] 50434- 6793 Mar, Major depressive disorder, recurrent, mild F33.0 [place] [id number] [place] [address] 05118- 1969 Mar, [place] [id number] [place] [address] 50387- 8508 Mar, Chronic hepatitis K73.9 ; 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 ; Localized edema R60.0 ; Illicit drug use F19.90 ; Vision changes H53.9 and Obesity due to excess calories, unspecified obesity severity E66.09 [place] [id number] [place] [address] 86472- 0013 Jan, Major depressive disorder, recurrent, mild F33.0 [place] [id number] [place] [address] 53422- 7054 Jan, Chronic viral hepatitis B without delta-agent B18.1 [place] [id number] [place] [address] 64479- 5871 Jan, [place] [id number] [place] [address] 29339- 7670 Jan, Weight gain R63.5 ; Hypothyroid E03.9 ; 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 ; Decreased renal function N28.9 and Chronic viral hepatitis B without delta-agent B18.1 [place] [id number] [place] [address] 00357- 7398 December, Major depressive disorder, recurrent, mild F33.0 and Generalized anxiety disorder F41.1 [place] [id number] [address] December, Obesity due to excess calories, unspecified obesity severity E66.09 and Folic acid deficiency E53.8 [facility] [address] [place] [address] 96894- 4575 December, Folic acid deficiency E53.8 [facility] [id number] [place] [address] 09951- 3363 December, Folic acid deficiency E53.8 [facility] [address] [place] [address] 93412- 4608 December, Obesity due to excess calories, unspecified obesity severity E66.09 [place] [id number] [place] [address] 57111- 1884 December, [place] [id number] [place] [address] 34329- 2515 December, Folic acid deficiency E53.8 [facility] [id number] [place] [address] [id number] December, Encounter for other administrative examinations Z02.89 [place] [id number] [place] [address] 26131- 2083 Dec, [facility] [id number] [place] [address] [id number] Dec, Dental caries K02.9 [place] [address] [place] [address] 46827- 4518 Oct, Bone pain M89.8X9 [place] [id number] [place] [address] 13103- 1264 Oct, Hypothyroid E03.9 [place] [id number] [place] [address] 46194- 1971 24 Oct, 2016 Hypothyroid E03.9 [place] [address] [place] [address] 47636- 7641 13 Mar, 2017 Breast cancer screening Z12.39 [facility] [id number] [id number] 08 Oct, 2016 Dental examination Z01.20 [place] [id number] [place] [address] 84645- 6258 Oct, [place] [id number] [place] [address] 05218- 1243 Oct, Major depressive disorder, recurrent, mild F33.0 and Generalized anxiety disorder F41.1 [place] [id number] [place] [address] 16637- 0152 Oct, [place] [id number] [place] [address] 31495- 5910 Oct, Hypothyroid E03.9 [place] [id number] [place] [address] 47944- 2654 Sep, Hypothyroid E03.9 ; Chronic viral hepatitis B without delta- agent B18.1 and Folic acid deficiency E53.8 [place] [id number] [place] [address] 46937- 0261 Sep, Hypothyroidism, unspecified type E03.9 ; Elevated parathyroid hormone E34.9 and Chronic viral hepatitis B without delta-agent B18.1 [place] [address] [place] [address] 49327- 4577 Sep, [place] [address] [place] [address] 22457- 9807 Sep, Elevated parathyroid hormone E34.9 [place] [id number] [place] [address] 55670- 8748 Sep, [place] [id number] [place] [address] 86050- 5479 Sep, Chronic hepatitis K73.9 ; Bone pain M89.8X9 and Abnormal complete blood count R79.89 [place] [id number] [place] [address] 46889- 0077 Aug, Major depressive disorder, recurrent, mild F33.0 [facility] [id number] [place] [address] 36469- 0470 Aug, Bone pain M89.8X9 [facility] [id number] [place] [address] 37783- 4431 Aug, [facility] [address] 52945- 1133 Jul, Chronic viral hepatitis B without delta-agent B18.1 [place] [address] 78789- 7485 Jul, Hypothyroidism, unspecified type E03.9 [facility] [id number] [place] [address] 95095- 1534 Jul, [place] [address] 66055- 2459 Jul, Chronic hepatitis K73.9 and Hypothyroid E03.9 [facility] [id number] [place] [address] 99967- 8356 Jul, Low back pain M54.5 [place] [id number] [place] [address] 93369- 6536 Jun, Depression, major, recurrent, mild F33.0 and ADD (attention deficit disorder) F90.0 [facility] [id number] [place] [address] 07173- 5526 Jun, [facility] [id number] [place] [address] 18536- 2445 Jun, Low back pain M54.5 [facility] [address] 84612- 2380 Jun, Encounter for immunization Z23 ; Major depressive disorder, recurrent, mild F33.0 and Attention-deficit hyperactivity disorder, predominantly inattentive type F90.0 [facility] [id number] [place] [address] 27977- 7382 Jun, [facility] [address] [place] [address] 49303- 3660 Jun, Low back pain M54.5 [facility] [id number] [place] [address] 62224- 0550 May, [facility] [id number] [place] [address] 97260- 4530 May, [facility] [id number] [place] [address] 20911- 3815 May, Essential (primary) hypertension I10 [facility] [id number] [place] [address] 27864- 6806 May, Low back pain M54.5 [facility] [id number] [place] [address] 64296- 0066 May, Low back pain M54.5 ; Chronic hepatitis K73.9 and Hypothyroid E03.9 [facility] [id number] [place] [address] 58706- 3576 09 May, 2016 Hypothyroidism, unspecified type E03.9 [facility] [id number] [place] [address] 84842- 8884 08 May, 2016 Low back pain M54.5 [facility] [id number] [place] [address] 46241- 8933 May, [facility] [id number] [place] [address] 62600- 2215 May, [facility] [id number] [place] [address] 72066- 4078 May, Major depressive disorder, recurrent, moderate F33.1 ; Generalized anxiety disorder F41.1 ; Insomnia G47.00 and ADD (attention deficit disorder) F90.0 [facility] [address] [place] [address] 32574- 6123 Apr, Low back pain M54.5 [place] [address], [place] [address]- 8001 Apr, [place] [id number] [place] [address] 76686- 5762 Apr, Low back pain M54.5 [place] [id number] [place] [address] 26389- 1737 Apr, Low back pain M54.5 ; Tooth pain K08.8 and Seasonal allergic rhinitis due to pollen J30.1 [place] [id number] [place] [address] 76692- 4730 Apr, Low back pain M54.5 [place] [id number] [place] [address] 97776- 6791 Apr, [facility] Pap smear of vagina R87.622 [place] [id number] [place] [address] 80414- 9017 Apr, Low back pain M54.5 [place] [id number] [place] [address] 32558- 4245 Mar, [place] [id number] [place] [address] 53900- 9024 Mar, Low back pain M54.5 [place] [id number] [place] [address] 58427- 9731 Mar, Encounter for Papanicolaou smear for cervical cancer screening Z12.4 ; Encounter for routine gynecological examination Z01.419 and Breast cancer screening Z12.39 [place] [address] [place] [address] 55909- 4788 18 Mar, 2016 Hypothyroidism, unspecified type E03.9 [place] [id number] [place] [address] 81215- 8143 14 Mar, 2016 Low back pain M54.5 ; Other chronic pain G89.29 ; Hypothyroid E03.9 and Hypothyroidism, unspecified type E03.9 [place] [id number] [place] [address] 29071- 6490 Mar, Major depressive disorder, recurrent, moderate F33.1 and Attention-deficit hyperactivity disorder, predominantly inattentive type F90.0 [facility] [id number] [place] [address] 01023 -9941 Mar, Bronchitis J40 [facility] [id number] [place] [address] 39081- 5959 Jan, [facility] [id number] [place] [address] 77148- 5825 Jan, [facility] [id number] [place] [address] 89736- 8377 Jan, Insomnia G47.00 [facility] [id number] [place] [address] 52491- 0556 December, [facility] [id number] [place] [address] 87973- 9045 December, Major depressive disorder in partial remission F32.4 and Attention-deficit hyperactivity disorder, unspecified type F90.9 [facility] [id number] [place] [address] 81581- 2346 December, [facility] [id number] [place] [address] 13403- 5591 December, [facility] [address] [place] [address] 21965- 3939 Dec, [facility] [id number] [place] [address] 74972- 0815 Dec, Major depressive disorder, recurrent episode, moderate 296.32 and Attention deficit disorder of childhood without mention of hyperactivity 314.00 [place] [id number] [place] [address] 23970- 1444 Dec, Major depressive disorder, recurrent episode, mild 296.31 ; ADD (attention deficit disorder) F90.0 and Hyperlipidemia E78.5 [facility] [id number] [place] [address] 94639- 7268 Dec, Insomnia G47.00 [facility] [address], [place] [address]- 6995 Dec, Attention-deficit hyperactivity disorder, predominantly inattentive type F90.0 [facility] [address], [place] [address]- 2783 Oct, Restless legs syndrome G25.81 [facility] [id number] [place] [address] 59222- 8487 Oct, Hypothyroidism, unspecified type E03.9 [facility] [address] [place] [address] 80437- 4324 Oct, [facility] [id number] [place] [address] 89542- 8204 Oct, [facility] [id number] [place] [address] 34643- 1394 15 Nov, 2015 Hypothyroid E03.9 and Chronic hepatitis K73.9 [facility] [address], [place] [address]- 6111 Oct, [facility] [id number] [place] [address] 93463- 1450 08 Nov, 2015 Restless legs syndrome G25.81 ; Chronic hepatitis K73.9 ; Hypertension I10 ; Hypothyroid E03.9 and Breast cancer screening Z12.39 [facility] [address], [place] [address]- 2898 Oct, [facility] [address] [address]- 0973 Oct, [facility] [address], [place] [address]- 9495 Oct, [facility] [address], [place] [address]- 9132 Oct, [facility] [id number] [address]- 1731 Oct, [facility] [address], [place] [address]- 4526 Oct, [facility] [id number] [place] [address] 58549- 9859 Oct, [facility] [address] [place] [address] 49563- 2322 Sep, [facility] [id number] [place] [address] 72676- 8268 Sep, Attention-deficit hyperactivity disorder, predominantly inattentive type F90.0 and Major depressive disorder in partial remission F32.4 [facility] [id number] [place] [address] 84706- 4071 Sep, [facility] [id number] [place] [address] 24762- 1040 Aug, [facility] [id number] [place] [address] 29796- 6918 Aug, [facility] [id number] [place] [address] 46430- 3612 Aug, Major depressive disorder, recurrent, mild F33.0 ; Attention -deficit hyperactivity disorder, unspecified type F90.9 and Generalized anxiety disorder F41.1 [facility] [address], [place] [address]- 2295 Aug, Chronic hepatitis K73.9 ; Primary osteoarthritis of both knees M17.0 and Neuralgia M79.2 [facility] [address], [place] [address]- 7130 Jul, [facility] [id number] [place] [address] 33660- 5079 Jul, [facility] [address], [place] [address]- 7902 Jul, [facility] [id number] [place] [address] 38235- 6563 Jul, [facility] [id number] [place] [address] 28563- 8379 Jun, [facility] [id number] [place] [address] 20244- 0377 Jun, Bronchitis J40 and Encounter for immunization Z23 [facility] [address] 86456- 2717 30 May, 2015 [facility] [id number] [place] [address] 15780- 2307 12 May, 2015 [facility] [address] 13002- 8423 May, [facility] [id number] [place] [address] 73489- 1163 May, Hypokalemia 276.8 [facility] [id number] [place] [address] 26148- 9576 08 May, 2015 Major depressive disorder, recurrent episode, mild 296.31 ; Attention deficit disorder of childhood without mention of hyperactivity 314.00 and Generalized anxiety disorder 300.02 [facility] [id number] [place] [address] 51494- 0908 May, Hypertension 401.9 and Hypokalemia 276.8 [facility] [id number] [place] [address] 49355- 8446 May, [facility] [id number] [place] [address] 37434- 4800 Apr, [facility] [id number] [place] [address] 38494- 8344 Apr, [facility] [id number] [place] [address] 84867- 1789 Apr, [facility] [id number] [place] [address] 27042- 4539 Apr, [facility] [address], [place] [address]- 5054 Mar, [facility] [id number] [place] [address] [phone] Mar, [facility] [id number] [place] [address] [phone] Mar, [facility] [id number] [place] [address] [phone] Mar, [facility] [address] [id number] [place] [address] 08476- 5978 Mar, Arthritis of both knees 716.96 ; Hepatitis B 070.30 ; Hypertension 401.9 ; Carpal tunnel syndrome 354.0 and Cubital tunnel syndrome 354.2 [facility] [id number] [place] [address] 08878- 2381 Mar, [facility] [id number] [place] [address] 94487- 7689 Mar, [facility] [id number] [place] [address] 76019- 4168 Mar, 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, chronic, without mention of hepatitis delta 070.32 ; Chronic hepatitis C without mention of hepatic coma 070.54 and Major depressive disorder, recurrent episode, moderate 296.32 [facility] [id number], [place] [address] Jan, [facility] [id number] [place] [address] 49423- 2414 Jan, Major depressive disorder, recurrent episode, mild 296.31 and Attention deficit disorder of childhood without mention of hyperactivity 314.00 [facility] [id number] [place] [address] 87840- 3896 Jan, [facility] [id number] [place] [address] 67550- 8703 Jan, [facility] [id number] [place] [address] 58828- 5054 December, Attention deficit disorder of childhood without mention of hyperactivity 314.00 ; Major depressive disorder, recurrent episode, mild 296.31 and Generalized anxiety disorder 300.02 [facility] [address] [facility] [id number] [address] 6[address] 08 Dec, 2014 [facility] [address] [id number] [address] 3[address] 14 Dec, 2014 [facility] [address] [facility] [id number], [place] [address]- 7485 Dec, [facility] [address] [id number], [place] [address] 4742 19 Oct, 2014 [facility] [address] [id number], [place] [address]- 8711 19 Oct, 2014 [facility] [address] [id number], [place] [address]- 0089 18 Oct, 2014 [facility] [address] [id number] [address] 3384 18 Oct, 2014 [facility] [address] [id number] [address]- 0018 18 Oct, 2014 [facility] [address] [id number], [place] [address]- 3062 18 Oct, 2014 [facility] [address] [id number], [place] [address]- 4300 16 Oct, 2014 [facility] [address] [id number], [place] [address]- 0271 13 Oct, 2014 [facility] [address] [id number], [place] [address]- 0882 13 Oct, 2014 [facility] [address] [id number], [place] [address]- 5470 Oct, [facility] [address] [id number] 4622 Oct, [facility] [id number] [place] [address]- 0080 10 Oct, 2014 [facility] [place] [facility] [address] [id number] [place] [address]- 4834 10 Oct, 2014 [facility] [place] [facility] [address] [id number] [place] [address]- 3955 05 Oct, 2014 [facility] [place] [facility] [address] [facility] [id number] [place] [address]- 1766 05 Oct, 2014 [facility] [place] [facility] [address] [id number] [place] [address]- 7736 Oct, 2014 [facility] [place] [facility] [address] [id number] [place] [address]- 0361 Oct, 2014 [facility] [place] [facility] [address] [facility] [id number] [place] [address]- 2795 25 Oct, 2014 [facility] [place] [facility] [address] [facility] [id number] [place] [address]- 1232 19 Oct, 2014 [facility] [place] [facility] [address] [facility] [id number] [place] [address]- 4991 18 Oct, 2014 [facility] [place] [facility] [address] [facility] [id number] [place] [address]- 3907 17 Oct, 2014 [facility] [place] [facility] [address] [facility] [id number] [place] [address]- 9198 17 Oct, 2014 [facility] [place] [facility] [address] [facility] [id number], [place] [address]- 8745 Oct, 2014 [facility] [place] [facility] [address] [facility] [id number] [place] [address]- 2095 11 Oct, 2014 [facility] [place] [facility] [address] [facility] [id number] [place] [address]- 2097 Oct, 2014 [facility] [place] [facility] [address] [facility] [id number] [place] [address]- 4935 11 Oct, 2014 [facility] [place] [facility] [address] [facility] [id number], [place] [address]- 2060 Oct, [facility] [address] [id number] [place] [address]- 0639 Oct, [facility] [place] [facility] [address] [id number] [place] [address]- 9004 Sep, [facility] [place] [facility] [address] [id number] [place] [address]- 8135 Sep, [facility] [place] [facility] [address] [id number] [place] [address]- 7402 Sep, [facility] [place] [facility] [address] [id number] [place] [address]- 5293 Sep, [facility] [place] [facility] [address] [id number] [place] [address]- 3250 Sep, [facility] [address] [id number] [place] [address]- 7749 Sep, [facility] [place] [facility] [address] [id number] [place] [address]- 5518 Sep, [facility] [place] [facility] [address] [id number] [place] [address]- 1189 Sep, [facility] [place] [facility] [address] [id number] [place] [address]- 0436 Sep, [facility] [place] [facility] [address] [id number] [place] [address]- 0903 Sep, [facility] [place] [facility] [address] [id number], [place] [address]- 6911 Sep, [facility] [place] [facility] [address] [id number] [place] [address]- 9528 Sep, [facility] [place] [facility] [address] [id number] [place] [address]- 7426 Sep, [facility] [place] [facility] [address] [id number], [place] [address]- 6327 Sep, [facility] [place] [facility] [address] [id number] [place] [address]- 3724 Sep, [facility] [place] [facility] [address] [id number] [place] 4118 Sep, [facility] [place] [facility] [address] [id number] [place] 7805 Aug, [facility] [place] [facility] [address] [id number] [place] [address]- 3056 Aug, [facility] [place] [facility] [address] [id number] [place] [address]- 6674 Aug, [facility] [place] [facility] [address] [id number] [place] [address]- 5465 Aug, [facility] [place] [facility] [address] [id number] [place] [address]- 9462 Aug, [facility] [place] [facility] [address] [id number] [place] [address]- 3483 Aug, [facility] [place] [facility] [address] [id number] [place] [address]- 8064 Aug, [facility] [place] [facility] [address] [id number] [place] [address]- 4734 Aug, [facility] [place] [facility] [address] [id number] [place] [address]- 2608 19 Aug, 2014 [facility] [place] [facility] [address] [id number] [place] [address]- 4879 18 Aug, 2014 [facility] [place] [facility] [address] [id number] [place] [address]- 3771 18 Aug, 2014 [facility] [place] [facility] [address] [id number] [place] 7526 16 Aug, 2014 [facility] [place] [facility] [address] [id number] [place] [address]- 6906 16 Aug, 2014 [facility] [place] [facility] [address] [id number] [place] [address]- 9636 15 Aug, 2014 [facility] [place] [facility] [address] [id number] [place] [address]- 7318 15 Aug, 2014 [facility] [place] [facility] [address] [id number] [place] [address]- 3685 Aug, [facility] [place] [facility] [address] [id number] [place] [address]- 9181 Aug, [facility] [place] [facility] [address] [id number] [place] [address]- 5384 Aug, [facility] [place] [facility] [address] [id number] [place] [address]- 4567 Aug, [facility] [place] [facility] [address] [id number] [place] [address]- 9899 Aug, [facility] [place] [facility] [address] [id number] [place] [address]- 8477 Aug, [facility] [place] [facility] [address] [id number] [place] [address]- 7861 Aug, [facility] [place] [facility] [address] [id number] [place] [address]- 8155 Aug, [facility] [place] [facility] [address] [id number] [place] [address]- 2587 Aug, [facility] [place] [facility] [address] [id number] [place] [address]- 3544 Aug, [facility] [place] [facility] [address] [id number], [place] [address]- 3622 Jul, [facility] [place] [facility] [address] [id number] [place] [address]- 7657 Jul, [facility] [place] [facility] [address] [id number] [place] [address]- 6324 Jul, [facility] [place] [facility] [address] [id number] [place] [address]- 7858 Jul, [facility] [place] [facility] [address] [id number] [place] [address]- 6768 Jul, [facility] [place] [facility] [address] [id number] [place] [address]- 1105 Jul, [facility] [place] [facility] [address] [id number] [place] [address]- 1662 Jun, [facility] [place] [facility] [address] [id number] [place] [address]- 0553 Jun, [facility] [place] [facility] [address] [id number] [place] [address]- 6630 Jun, [facility] [place] [facility] [address] [id number] [place] [address]- 5095 Jun, [facility] [place] [facility] [address] [id number] [place] [address]- 4207 Jun, [facility] [place] [facility] [address] [id number] [place] [address]- 9815 Jun, [facility] [place] [facility] [address] [id number] [place] [address]- 4739 Jun, [facility] [place] [facility] [address] [id number] [place] [address]- 6754 Jun, [facility] [place] [facility] [address] [id number] [place] [address]- 6392 16 May, 2013 [facility] [place] [facility] [address] [id number] [place] [address]- 7053 16 May, 2013 [facility] [place] [facility] [address] [id number] [place] [address]- 9805 15 May, 2013 [facility] [place] [facility] [address] [id number] [place] [address]- 0082 15 May, 2013 [facility] [place] [facility] [address] [id number] [place] [address]- 1739 08 May, 2013 [facility] [place] [facility] [address] [id number] [place] [address]- 1183 May, [facility] [place] [facility] [address] [id number] [place] [address]- 4130 May, [facility] [place] [facility] [address] [id number] [place] [address]- 2445 May, [facility] [place] [facility] [address] [id number] [place] [address]- 9010 Apr, [facility] [place] [facility] [address] [id number] [place] [address]- 3285 Apr, [facility] [place] [facility] [address] [id number] [place] [address]- 5223 Apr, [facility] [place] [facility] [address] [id number] [place] [address]- 9266 Apr, [facility] [place] [facility] [address] [id number] [place] [address]- 0355 Apr, [facility] [place] [facility] [address] [id number] [place] [address]- 1348 Apr, [facility] [place] [facility] [address] [id number] [place] [address]- 0078 Apr, [facility] [place] [facility] [address] [id number] [place] [address]- 1925 Apr, [facility] [place] [facility] [address] [id number] [place] [address]- 6077 Apr, [facility] [place] [facility] [address] [id number] [place] [address]- 5395 Apr, [facility] [place] [facility] [address] [id number] [place] [address]- 7389 Apr, [facility] [place] [facility] [address] [id number] [place] [address]- 5834 Apr, [facility] [place] [facility] [address] [id number] [place] [address]- 2061 Apr, [facility] [place] [facility] [address] [id number] [place] [address]- 1307 Mar, [facility] [place] [facility] [address] [id number] [place] [address]- 5672 Mar, [facility] [place] [facility] [address] [id number] [place] [address]- 2769 Mar, [facility] [place] [facility] [address] [id number] [place] [address]- 4099 Mar, [facility] [place] [facility] [address] [id number] [place] [address]- 6466 Jan, [facility] [place] [facility] [address] [id number] [place] [address]- 8841 Jan, [facility] [place] [facility] [address] [id number] [place] [address]- 8990 December, [facility] [place] [facility] [address] [id number] [place] [address]- 0900 December, [facility] [place] [facility] [address] [id number] [place] [address]- 0135 December, [facility] [place] [facility] [address] [id number] [place] [address]- 0103 December, [facility] [place] [facility] [address] [id number] [place] [address]- 3459 December, [facility] [place] [facility] [address] [id number] [place] [address]- 8935 December, [facility] [place] [facility] [address] [id number] [place] [address]- 8871 December, [facility] [place] [facility] [address] [id number] [place] [address]- 4915 December, [facility] [place] [facility] [address] [id number] [place] [address]- 6365 Dec, [facility] [place] [facility] [address] [id number] [place] [address]- 1173 Dec, [facility] [place] [facility] [address] [id number] [place] [address]- 2250 Dec, [facility] [place] [facility] [address] [id number] [place] [address]- 4431 Dec, [facility] [place] [facility] [address] [id number] [place] [address]- 0870 Oct, [facility] [place] [facility] [address] [id number] [place] [address]- 4696 Oct, [facility] [place] [facility] [address] [id number] [place] [address]- 7426 Oct, [facility] [place] [facility] [address] [id number] [place] [address]- 7848 Oct, [facility] [place] [facility] [address] [id number] [place] [address]- 0372 Oct, [facility] [place] [facility] [address] [id number] [place] [address]- 0904 Oct, [facility] [place] [facility] [address] [id number] [place] [address]- 0679 Oct, [facility] [place] [facility] [address] [id number] [place] [address]- 5787 Oct, [facility] [place] [facility] [address] [id number] [place] [address]- 0816 Oct, [facility] [place] [facility] [address] [id number] [place] [address]- 7403 Oct, [facility] [place] [facility] [address] [id number] [place] [address]- 0657 Oct, [facility] [place] [facility] [address] [id number] [place] [address]- 1837 Oct, [facility] [place] [facility] [address] [id number] [place] [address]- 1177 Oct, [facility] [place] [facility] [address] [id number] [place] [address]- 6276 10 Oct, 2013 [facility] [place] [facility] [address] [id number] [place] [address]- 0521 Oct, [facility] [place] [facility] [address] [id number] [place] [address]- 5536 Oct, 2013 [facility] [place] [facility] [address] [id number] [place] [address]- 8074 Oct, 2013 [facility] [place] [facility] [address] [id number] [place] [address]- 2420 Oct, 2013 [facility] [place] [facility] [address] [id number] [place] [address]- 9018 Oct, [facility] [place] [facility] [address] [id number] [place] [address]- 2259 Oct, [facility] [place] [facility] [address] [facility] [id number] [place] [address]- 5137 Oct, [facility] [place] [facility] [address] [id number] [place] [address]- 9826 Oct, [facility] [place] [facility] [address] [facility] [id number] [place] [address]- 8973 Sep, [facility] [place] [facility] [address] [facility] [id number] [place] [address]- 4966 Sep, [facility] [place] [facility] [address] [facility] [id number] [place] [address]- 5326 Sep, [facility] [place] [facility] [address] [id number] [place] [address]- 2350 Sep, [facility] [place] [facility] [address] [id number] [place] [address]- 5326 Aug, [facility] [place] [facility] [address] [id number] [place] [address]- 9642 Aug, [facility] [place] [facility] [address] [facility] [id number] [place] [address]- 8964 Aug, [facility] [place] [facility] [address] [id number] [place] [address]- 2459 Aug, [facility] [place] [facility] [address] [id number] [place] [address]- 6785 Aug, [facility] [place] [facility] [address] [id number] [place] [address]- 9427 Aug, [facility] [place] [facility] [address] [id number] [place] [address]- 5055 Aug, [facility] [place] [facility] [address] [id number] [place] [address]- 0517 Aug, [facility] [place] [facility] [address] [id number] [place] [address]- 3343 Aug, [facility] [place] [facility] [address] [id number] [place] [address]- 7507 Jul, [facility] [place] [facility] [address] [id number] [place] [address]- 0239 Jul, [facility] [place] [facility] [address] [id number] [place] [address]- 4064 Jul, [facility] [place] [facility] [address] [id number] [place] [address]- 2384 Jul, [facility] [place] [facility] [address] [id number] [place] [address]- 3587 Jul, [facility] [place] [facility] [address] [id number] [place] [address]- 8239 Jul, [facility] [place] [facility] [address] [id number] [place] [address]- 2883 Jul, [facility] [place] [facility] [address] [id number] [place] [address]- 1314 Jul, [facility] [place] [facility] [address] [id number] [place] [address]- 3297 Jun, [facility] [place] [facility] [address] [id number] [place] [address]- 6986 Jun, [facility] [place] [facility] [address] [id number] [place] [address]- 6544 Jun, [facility] [place] [facility] [address] [id number] [place] [address]- 9729 Jun, [facility] [place] [facility] [address] [id number] [place] [address]- 8491 Jun, [facility] [place] [facility] [address] [id number] [place] [address] Jun, [facility] [place] [facility] [address] [id number] [place] [address] Jun, [facility] [place] [facility] [address] [id number] [place] [address] Jun, [facility] [place] [facility] [address] [id number] [place] [address] 30 May, 2013 [facility] [place] [facility] [address] [id number] [place] [address] 26 May, 2013 [facility] [place] [facility] [address] [id number] [place] [address]- [address] 23 May, 2013 [facility] [place] [facility] [address] [id number] [place] [address] 19 May, 2013 [facility] [place] [facility] [address] [id number], [place] [address] 12 May, 2013 [facility] [place] [facility] [address] [id number], [place] [address] May, [facility] [place] [facility] [address] [id number] [place] [address]- [address] Apr, [facility] [place] [facility] [address] [id number] [place] [address] Apr, [facility] [place] [facility] [address] [id number] [place] [address]- [address] Apr, [facility] [place] [facility] [address] [id number] [place] [address] Apr, [facility] [address] [id number] [place] [address]26 Apr, [facility] [place] [facility] [address] [id number] [place] [address]- 45[address] Apr, [facility] [address] [id number] [place] [address] Apr, [facility] [place] [facility] [address] [id number] [place] [address]103 Mar, [facility] [address] [id number] [place] [address]271 Mar, [facility] [address] [id number] [place] [address] Mar, [facility] [place] [facility] [address] [id number] [place] [address] 28[address] Mar, [facility] [address] [id number] [place] [address] 39[address] Mar, [facility] [place] [facility] [address] [id number] [place] [address]- [address] Mar, [facility] [address] [id number] [place] [address] Mar, [facility] [place] [facility] [address] [id number] [place] [address] 7469 Jan, [facility] [place] [facility] [address] [id number] [place] [address] 1334 Jan, [facility] [place] [facility] [address] [id number] [place] [address] Jan, [facility] [place] [facility] [address] [id number] [place] [address]- [address] Jan, [facility] [place] [facility] [address] [id number] [place] [address] Jan, [facility] [address] [id number] [place] [address] Jan, [facility] [address] [id number] [place] [address]- [address] Jan, [facility] [address] [id number] [place] [address] December, [facility] [place] [facility] [address] [id number] [place] [address]236 December, [facility] [address] [id number] [place] [address]- [address]171 December, [facility] [address] [id number] [place] [address]- [address]406 December, [facility] [address] [id number] [place] [address]- [address]357 Dec, [facility] [address] [id number] [place] [address]653 Dec, [facility] [address] [id number] [place] [address]- [address] Dec, [facility] [address] [id number] [place] [address]- [address] Oct, [facility] [place] [facility] [address] [id number] [place] [address]- 3901 Oct, [facility] [place] [facility] [address] [id number], [place] [address]- [address] Oct, [facility] [place] [facility] [address] [id number] [place] [address]- [address]120 Oct, [facility] [place] [facility] [address] [id number] [place] [address]- [address]858 Oct, [facility] [place] [facility] [address] [id number] [address] Oct, [facility] [place] [facility] [address] [id number], [place] [address] Oct, [facility] [address] [id number] [place] [address]- 6536 Oct, [facility] [address] [id number] [place] [address]- 4066 Oct, [facility] [address] [id number] [place] [address] 2546 08 Oct, 2012 [facility] [place] [facility] [address] [id number] [place] [address]- [address]136 Oct, [facility] [address] [id number] [place] [address] Sep, [facility] [address] [id number] [place] [address]- [address] Sep, [facility] [address] [id number] [place] [address]- 8651 Sep, [facility] [address] [id number] [place] [address]- [address]262 Aug, [facility] [address] [id number] [place] [address] 42[address] Aug, [facility] [address] [facility] [id number] [place] [address]- [address] Aug, [facility] [address] [id number] [place] [address]- [address] Aug, [facility] [place] [facility] [address] [id number] [place] [address]- [address] Jul, [facility] [place] [facility] [address] [id number] [place] [address]- 8449 Jul, [facility] [place] [facility] [address] [id number] [place] [address]- 3486 Jul, [facility] [address] [id number], [place] [address] 1580 Jul, [facility] [place] [facility] [address] [id number] [place] [address]- 3794 Jul, [facility] [place] [facility] [address] [id number] [place] [address]- 3526 Jul, [facility] [place] [facility] [address] [id number] [place] [address]- 7846 Jul, [facility] [place] [facility] [address] [id number] [place] [address]- 9008 Jul, [facility] [place] [facility] [address] [id number] [place] [address]- 46[address] Jun, [facility] [place] [facility] [address] [id number] [place] [address]- 4982 Jun, [facility] [place] [facility] [address] [id number] [place] [address]- 7288 Jun, [facility] [place] [facility] [address] [id number] [place] [address]- 3241 Jun, [facility] [place] [facility] [address] [id number] [place] [address] Jun, [facility] [place] [facility] [address] [id number] [place] [address] May, [facility] [place] [facility] [address] [id number] [place] [address] May, [facility] [place] [facility] [address] [id number] [place] [address] 18 May, 2012 [facility] [place] [facility] [address] [id number] [place] [address] 09 May, 2012 [facility] [place] [facility] [address] [id number] [place] [address] 04 May, 2012 [facility] [place] [facility] [address] [id number] [place] [address] Apr, [facility] [place] [facility] [address] [id number] [place] [address] Apr, [facility] [place] [facility] [address] [id number] [place] [address] Apr, [facility] [place] [facility] [address] [id number] [place] [address] Apr, [facility] [place] [facility] [address] [id number] [place] [address] Apr, [facility] [place] [facility] [address] [id number] [place] [address] Apr, [facility] [place] [facility] [address] [id number] [place] [address] Apr, [facility] [place] [facility] [address] [id number] [place] [address] Mar, [facility] [place] [facility] [address] [id number] [place] [address] Mar, [facility] [place] [facility] [address] [id number] [place] [address] Mar, [facility] [place] [facility] [address] [id number] [place] [address] Mar, [facility] [place] [facility] [address] [id number] [place] [address] Jan, [facility] [place] [facility] [address] [id number] [place] [address] Jan, [facility] [place] [facility] [address] [id number] [place] [address] Jan, [facility] [place] [facility] [address] [id number] [place] [address] Jan, [facility] [place] [facility] [address] [id number] [place] [address] Jan, [facility] [place] [facility] [address] [id number] [place] [address] Jan, [facility] [place] [facility] [address] [id number] [place] [address] December, [facility] [address] [id number] [place] [address] December, [facility] [address] [id number] [place] [address] December, [facility] [address] [id number] [place] [address] 47[address] December, [facility] [address] [id number] [place] [address] Dec, [facility] [address] [id number] [place] [address]65 Dec, [facility] [address] [id number] [place] [address] Oct, [facility] [address] [id number] [place] [address] 2018 Oct, [facility] [address] [id number] [place] [address] Oct, [facility] [address] [id number] [place] [address] Oct, [facility] [address] [facility] [id number] [place] [address] Oct, [facility] [address] [id number] [place] [address] Oct, [facility] [address] [id number] [place] [address] 05 Nov, 2011 [facility] [place] [facility] [address] [id number] [place] [address] Oct, [facility] [address] [id number] [place] [address] Oct, [facility] [address] [id number] [place] [address] Oct, [facility] [address] [id number] [place] [address] 133[address] Oct, [facility] [address] [id number] [place] [address] Sep, [facility] [address] [id number] [place] [address] 267[address] Sep, [facility] [place] [facility] [address] [id number] [place] [address] Sep, [facility] [address] [id number] [place] [address] 1665 Sep, [facility] [address] [id number] [place] [address]- [address]162 Sep, [facility] [address] [id number] [place] [address] 135[address] Sep, [facility] [address] [id number] [place] [address] 8981 Sep, [facility] [address] [id number] [place] [address] Sep, [facility] [address] [id number] [place] [address]658 Aug, [facility] [place] [facility] [address] [id number] [place] [address] Aug, [facility] [place] [facility] [address] [id number], [place] [address] Aug, [facility] [place] [facility] [address] [id number] [place] [address] Jul, [facility] [place] [facility] [address] [id number] [place] [address] 289[address] Jul, [facility] [place] [facility] [address] [id number] [place] [address] 48[address] Jul, [facility] [place] [facility] [address] [id number] [place] [address] 17 Jul, 2011 [facility] [place] [facility] [address] [id number] [place] [address]- [address]240 08 Jul, 2011 [facility] [place] [facility] [address] [id number] [place] [address]- 2028 02 Jul, 2011 [facility] [place] [facility] [address] [id number] [place] [address] 31 Jun, 2011 [facility] [place] [facility] [address] [id number] [place] [address]207 20 Jun, 2011 [facility] [place] [facility] [address] [id number] [place] [address] 20 Mar, 2011 [facility] [place] [facility] [address] [id number] [place] [address] 4337 14 Dec, 2010 [facility] [place] [facility] [address] [id number] [place] [address]- 1779 14 Oct, 2010 [facility] [place] [facility] [address] [id number] [place] [address]- 8048 06 Aug, 2010 [facility] [place] [facility] [address] [id number] [place] [address]- 1618 30 Jul, 2010 [facility] [place] [facility] [address] [facility] [id number] [place] [address]- 9427 11 Jul, 2010 [facility] [place] [facility] [address] [id number] [place] [address]- 1842 10 Jul, 2010 [facility] [place] [facility] [address] [id number] [place] [address]- 3662 09 Jul, 2010 [facility] [place] [facility] [address] [id number] [place] [address]- 4557 08 Jul, 2010 [facility] [place] [facility] [address] [id number] [place] [address]- 2390 22 Aug, 2009 [facility] [place] [facility] [address] [facility] [id number] [place] [address]- 5123 15 Aug, 2009 [facility] [place] [facility] [address] [place] [address] Aug, [facility] [address] [place] [address] Aug, [facility] [address] [place] [address] Jul, [facility] [address] [place] [address]201 Jul, [facility] [address] [place] [address] Jul, [facility] [address] [place] [address] 117[address] Jul, [facility] [address] [place] [address] Jun, [facility] [address], [place] [address] Jun, IMMUNIZATIONS No Known Immunizations SOCIAL HISTORY Never Assessed REASON FOR VISIT Lab PLAN OF CARE VITAL SIGNS MEDICATIONS Unknown Medications RESULTS No Results PROCEDURES Procedure Date Ordered Result Body Site LAB NOT BILLED BY [facility] Jul 10, 2017 MONICA, ROUTINE* Jul 10, 2017 INSTRUCTIONS MEDICATIONS ADMINISTERED No Known Medications [...]
--- OUTSIDE RECORDS SUMMARY | 2018-03-17 11:07 | XMS REPORT ---
Author Author 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 Organization [facility] Address [address] [place] [address] Care Team Providers Care Illuminator Name Role Phone 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 Unavailable PROBLEMS Type Condition ICD9-CM Code TOI04-IP Code Onset Dates Condition Status SNOMED Code Problem 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 Active 76305056 Problem Attention-deficit hyperactivity disorder, predominantly inattentive type F90.0 Active 74554910 Problem Obstructive sleep apnea G47.33 Active 67775812 Problem Primary insomnia F51.01 Active 3590424 Problem Neuralgia M79.2 Active 12567811 Problem Cannabis use disorder, mild, abuse F12.10 Active 81923587 Problem Folic acid deficiency E53.8 Active 126564906 Problem Restless legs G25.81 Active 52195638 Problem Major depressive disorder, recurrent, mild F33.0 Active 47672011 Problem Generalized anxiety disorder F41.1 Active 62976840 Problem Major depressive disorder, recurrent episode, moderate F33.1 Active 798414798 Problem Hypertension I10 Active 70332538 Problem Hyperlipidemia E78.5 Active 07675830 Problem Primary osteoarthritis of both knees M17.0 Active 311665855 Problem Chronic hepatitis K73.9 Active 09568824 Problem Low back pain M54.5 Active 289360030 Problem Chronic viral hepatitis B without delta-agent B18.1 Active 768050978 Problem Insomnia G47.00 Active 993544894 Problem Hypothyroid E03.9 Active 36122644 Problem Depression, major, recurrent, mild F33.0 Active 189067935 Problem Obesity due to excess calories, unspecified obesity severity E66.09 Active 885355492 ALLERGIES No Information ENCOUNTERS Encounter Location Date Diagnosis [facility] [address] [facility] [id number] [address] December, [facility] [address] [facility] [id number], [place] [address] Dec, Bone pain M89.8X9 [facility] [id number] [place] [address] 70723- 2307 Dec, [facility] [id number] [place] [address] 55523- 7721 Oct, [facility] [id number] [place] [address] 62483- 3679 Oct, Syncope, unspecified syncope type R55 ; Primary insomnia F51.01 ; Dry mouth R68.2 and Cannabis use disorder, mild, abuse F12.10 [facility] [id number] [place] [address] 41934- 3394 Oct, [facility] [id number] [place] [address] 25078- 6888 Sep, [facility] [id number] [place] [address] 51937- 4154 Sep, [facility] [id number] [place] [address] 61768- 0422 Sep, [facility] [address] [id number] Sep, Dental examination Z01.20 [facility] [id number] [place] [address] 71481- 2576 Sep, Dental examination Z01.20 [facility] [id number] [place] [address] 40670- 5249 Sep, Sinus congestion R09.81 ; Mouth sores K13.79 ; Low back pain M54.5 and Mouth swelling R22.0 [facility] [id number] [place] [address] 27407- 1485 Aug, Low back pain M54.5 [facility] [id number] [place] [address] 91936- 0363 Aug, Low back pain M54.5 [facility] [id number] [place] [address] 73388- 2224 Jul, [facility] [address] 10406- 2520 Jul, Encounter for immunization Z23 ; 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 ; Hypothyroid E03.9 ; Decreased renal function N28.9 and Muscle cramps R25.2 [facility] [address] 37589- 5546 Jul, [facility] [address] 71730- 3067 Jul, [place] [address] 53715- 7503 Jul, [place] [address] 05661- 5702 Jul, Major depressive disorder, recurrent, mild F33.0 [place] [address] 48692- 6334 Jul, Acquired cyst of kidney N28.1 ; Acidosis E87.2 and Hyperkalemia E87.5 [place] [address] 01901- 7967 Jul, Major depressive disorder, recurrent, mild F33.0 ; Attention -deficit hyperactivity disorder, predominantly inattentive type F90.0 and Generalized anxiety disorder F41.1 [place] [address] 19871- 6024 Jul, Low back pain M54.5 [facility] [address] 48692- 6330 Jun, Cough R05 ; Low back pain M54.5 and Pre-syncope R55 [facility] [address] 01173- 4296 Jun, Low back pain M54.5 [facility] [id number] [place] [address] [id number] Jun, Dental caries K02.9 [place] [address] 86762- 3367 Jun, [place] [address] [place] 027840- 6816 Jun, Major depressive disorder, recurrent, mild F33.0 ; Attention -deficit hyperactivity disorder, predominantly inattentive type F90.0 and Generalized anxiety disorder F41.1 [place] [address] 61259- 4845 May, Vertigo R42 ; Confusion R41.0 ; Weakness R53.1 and Vision changes H53.9 [place] [address] 85878- 0939 May, [place] [address] 21827- 1710 May, [place] [address] 23689- 9342 May, Low back pain M54.5 [place] [id number] [place] [address] 52112- 7962 May, Major depressive disorder, recurrent, mild F33.0 ; Attention -deficit hyperactivity disorder, predominantly inattentive type F90.0 and Generalized anxiety disorder F41.1 [place] [id number] [place] [address] 25881- 2918 May, [place] [address] 91055- 9057 May, Acute worsening of stage 3 chronic kidney disease N18.3 [place] [address] 19134- 3483 Apr, [place] [address] 80208- 1061 Apr, Acute allergic rhinitis due to pollen, unspecified seasonality J30.1 ; Restless legs G25.81 and Low back pain M54.5 [place] [address], [place] [address] 2547 10 Apr, 2017 Primary osteoarthritis of both knees M17.0 [facility] [id number] [place] [address] 57472- 5905 08 Apr, 2017 Generalized anxiety disorder F41.1 [facility] [id number] [place] [address] 72736- 7136 07 Apr, 2017 Major depressive disorder, recurrent, mild F33.0 ; Attention -deficit hyperactivity disorder, predominantly inattentive type F90.0 and Generalized anxiety disorder F41.1 [facility] [id number] [place] [address] 51694- 8803 Apr, [facility] [id number] [place] [address] 55618- 3480 Mar, Major depressive disorder, recurrent episode, moderate F33.1 ; Generalized anxiety disorder F41.1 and ADHD, predominantly inattentive type F90.0 [facility] [id number] [place] [address] 68159 -4275 Mar, Abscess L02.91 [facility] [id number] [place] [address] 85084- 7840 Mar, 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 [facility] [id number] [place] [address] 38827- 5134 Mar, Decreased renal function N28.9 [facility] [id number] [place] [address] [id number] Mar, Dental examination Z01.20 [facility] [address] [place] [address] 88571- 3407 17 Mar, 2017 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 [facility] [id number] [place] [address] 42808- 7472 Mar, 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 [facility] [id number] [place] [address] [id number] Mar, Dental examination Z01.20 and Dental caries K02.9 [place] [address], [place] [address]- 7458 12 Mar, 2017 Chronic viral hepatitis B without delta-agent B18.1 ; Folic acid deficiency E53.8 ; 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 and Decreased renal function N28.9 [place] [address], [place] [address]- 8744 Mar, Major depressive disorder, recurrent, mild F33.0 [place] [id number] [place] [address] 43813- 9148 Mar, [place] [id number] [place] [address] 86458- 7054 Mar, Chronic hepatitis K73.9 ; 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 ; Localized edema R60.0 ; Illicit drug use F19.90 ; Vision changes H53.9 and Obesity due to excess calories, unspecified obesity severity E66.09 [place] [id number] [place] [address] 64668- 5894 Jan, Major depressive disorder, recurrent, mild F33.0 [place] [id number] [place] [address] 33316- 0084 Jan, Chronic viral hepatitis B without delta-agent B18.1 [place] [address] [place] [address] 89288- 1610 Jan, [place] [id number] [place] [address] 73288- 0295 Jan, Weight gain R63.5 ; Hypothyroid E03.9 ; 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 ; Decreased renal function N28.9 and Chronic viral hepatitis B without delta-agent B18.1 [place] [id number] [place] [address] 65964- 5893 December, Major depressive disorder, recurrent, mild F33.0 and Generalized anxiety disorder F41.1 [place] [address] [place] [address] 10583- 4391 December, Obesity due to excess calories, unspecified obesity severity E66.09 and Folic acid deficiency E53.8 [facility] [address], [place] [address]- 9494 December, Folic acid deficiency E53.8 [facility] [address] [place] [address] 50814- 3004 December, Folic acid deficiency E53.8 [facility] [id number] [place] [address] 85772- 1464 December, Obesity due to excess calories, unspecified obesity severity E66.09 [facility] [address] [place] [address] 24366- 1406 December, [facility] [id number] [place] [address] 97001- 1811 December, Folic acid deficiency E53.8 [facility] [id number] [place] [address] [id number] December, Encounter for other administrative examinations Z02.89 [facility] [id number] [place] [address] 93934- 6920 Dec, [facility] [id number] [place] [address] [id number] Dec, Dental caries K02.9 [facility] [address] [place] [address] 35957- 0069 Oct, Bone pain M89.8X9 [facility] [id number] [place] [address] 09298- 8153 Oct, Hypothyroid E03.9 [facility] [address] [place] [address] 86999- 6308 24 Oct, 2016 Hypothyroid E03.9 [facility] [id number] [place] [address] 32103- 8110 13 Oct, 2016 Breast cancer screening Z12.39 [facility] [id number] [place] [address] [id number] Oct, Dental examination Z01.20 [place] [id number] [place] [address] 18253- 8435 Oct, [place] [id number] [place] [address] 21012- 3905 Oct, Major depressive disorder, recurrent, mild F33.0 and Generalized anxiety disorder F41.1 [place] [id number] [place] [address] 84243- 1814 Oct, [place] [id number] [place] [address] 91062- 5173 Oct, Hypothyroid E03.9 [place] [address] 43101- 4633 Sep, Hypothyroid E03.9 ; Chronic viral hepatitis B without delta- agent B18.1 and Folic acid deficiency E53.8 [place] [id number] [place] [address] 67083- 7782 Sep, Hypothyroidism, unspecified type E03.9 ; Elevated parathyroid hormone E34.9 and Chronic viral hepatitis B without delta-agent B18.1 [place] [id number] [place] [address] 83394- 4274 Sep, [place] [id number] [place] [address] 73177- 7215 Sep, Elevated parathyroid hormone E34.9 [place] [id number] [place] [address] 32959- 3640 Sep, [place] [id number] [place] [address] 21633- 9775 Sep, Chronic hepatitis K73.9 ; Bone pain M89.8X9 and Abnormal complete blood count R79.89 [place] [id number] [place] [address] 32449- 0535 Aug, Major depressive disorder, recurrent, mild F33.0 [place] [address] [place] [address]- 7723 Aug, Bone pain M89.8X9 [facility] [address] 68000- 6314 Aug, [facility] [id number] [place] [address] 70751- 7921 Jul, Chronic viral hepatitis B without delta-agent B18.1 [facility] [address] 17933- 2986 Jul, Hypothyroidism, unspecified type E03.9 [facility] [address] 51972- 2320 Jul, [facility] [address] 57936- 4970 Jul, Chronic hepatitis K73.9 and Hypothyroid E03.9 [place] [address] 62388- 0843 Jul, Low back pain M54.5 [facility] [address] 84411- 0157 Jun, Depression, major, recurrent, mild F33.0 and ADD (attention deficit disorder) F90.0 [place] [id number] [place] [address] 86143- 1376 Jun, [facility] [address] 85067- 9501 Jun, Low back pain M54.5 [facility] [id number] [place] [address] 77894- 8494 Jun, Encounter for immunization Z23 ; Major depressive disorder, recurrent, mild F33.0 and Attention-deficit hyperactivity disorder, predominantly inattentive type F90.0 [facility] [id number] [place] [address] 68042- 4767 Jun, [facility] [address] 08587- 1652 Jun, Low back pain M54.5 [facility] [id number] [place] [address] 34393- 1687 May, [facility] [id number] [place] [address] 57227- 5198 May, [facility] [id number] [place] [address] 76072- 2149 May, Essential (primary) hypertension I10 [facility] [id number] [place] [address] 20228- 8381 May, Low back pain M54.5 [facility] [id number] [place] [address] 99560- 0495 May, Low back pain M54.5 ; Chronic hepatitis K73.9 and Hypothyroid E03.9 [facility] [id number] [place] [address] 48158- 4816 May, Hypothyroidism, unspecified type E03.9 [facility] [id number] [place] [address] 22158- 3244 08 May, 2016 Low back pain M54.5 [facility] [id number] [place] [address] 14824- 1293 May, [facility] [id number] [place] [address] 10493- 8584 May, [facility] [id number] [place] [address] 68181- 5006 May, Major depressive disorder, recurrent, moderate F33.1 ; Generalized anxiety disorder F41.1 ; Insomnia G47.00 and ADD (attention deficit disorder) F90.0 [facility] [id number] [place] [address] 30792- 2110 Apr, Low back pain M54.5 [facility] [id number] [place] [address] 08342- 3249 Apr, [place] [address] [place] [address] 94389- 8158 Apr, Low back pain M54.5 [place] [id number] [place] [address] 64576- 4543 Apr, Low back pain M54.5 ; Tooth pain K08.8 and Seasonal allergic rhinitis due to pollen J30.1 [place] [id number] [place] [address] 81275- 8662 Apr, Low back pain M54.5 [place] [id number] [place] [address] 84481- 7200 Apr, [facility] Pap smear of vagina R87.622 [place] [id number] [place] [address] 50873- 4397 Apr, Low back pain M54.5 [place] [id number] [place] [address] 58534- 5815 Mar, [place] [id number] [place] [address] 84875- 8779 Mar, Low back pain M54.5 [place] [id number] [place] [address] 91826- 3005 Mar, Encounter for Papanicolaou smear for cervical cancer screening Z12.4 ; Encounter for routine gynecological examination Z01.419 and Breast cancer screening Z12.39 [place] [address] [place] [address] 78900- 4203 18 Mar, 2016 Hypothyroidism, unspecified type E03.9 [place] [id number] [place] [address] 53679- 8219 14 Mar, 2016 Low back pain M54.5 ; Other chronic pain G89.29 ; Hypothyroid E03.9 and Hypothyroidism, unspecified type E03.9 [place] [address] [place] [address] 27623- 4961 Mar, Major depressive disorder, recurrent, moderate F33.1 and Attention-deficit hyperactivity disorder, predominantly inattentive type F90.0 [facility] [address], [place] [address] -3589 Mar, Bronchitis J40 [facility] [id number] [place] [address] 87892- 5343 Jan, [facility] [id number] [place] [address] 74791- 2973 Jan, [facility] [id number] [place] [address] 52286- 2125 Jan, Insomnia G47.00 [facility] [id number] [place] [address] 81690- 1763 December, [facility] [id number] [place] [address] 48472- 8415 December, Major depressive disorder in partial remission F32.4 and Attention-deficit hyperactivity disorder, unspecified type F90.9 [facility] [id number] [place] [address] 38726- 8244 December, [facility] [id number] [place] [address] 24698- 9267 December, [facility] [id number] [place] [address] 33018- 7882 Dec, [facility] [address] [place] [address] 83531- 6472 Dec, Major depressive disorder, recurrent episode, moderate 296.32 and Attention deficit disorder of childhood without mention of hyperactivity 314.00 [facility] [address] [place] [address] 28767- 2904 Dec, Major depressive disorder, recurrent episode, mild 296.31 ; ADD (attention deficit disorder) F90.0 and Hyperlipidemia E78.5 [facility] [address], [place] [address]- 3111 Dec, Insomnia G47.00 [facility] [address] [place] [address]- 7178 Dec, Attention-deficit hyperactivity disorder, predominantly inattentive type F90.0 [facility] [id number] [place] [address] 54432- 8102 Oct, Restless legs syndrome G25.81 [facility] [address], [place] [address]- 7786 Oct, Hypothyroidism, unspecified type E03.9 [facility] [id number] [address]- 2108 Oct, [facility] [id number] [place] [address] 47831- 6961 Oct, [facility] [id number] [place] [address] 31955- 5162 15 Nov, 2015 Hypothyroid E03.9 and Chronic hepatitis K73.9 [facility] [id number] [place] [address] 61658- 4543 Oct, [facility] [address] [place] [address] 91545- 9012 Oct, Restless legs syndrome G25.81 ; Chronic hepatitis K73.9 ; Hypertension I10 ; Hypothyroid E03.9 and Breast cancer screening Z12.39 [facility] [address], [place] [address]- 6994 Oct, [facility] [address], [place] [address]- 9013 Oct, [facility] [address], [place] [address]- 9405 Oct, [facility] [address], [place] [address]- 0765 Oct, [facility] [address], [place] [address]- 2787 Oct, [facility] [id number] [address]- 6938 10 Oct, 2015 [facility] [address], [place] [address]- 6976 05 Oct, 2015 [facility] [id number] [place] [address] 01805- 8474 Sep, [facility] [address] [place] [address] 78918- 5837 Sep, Attention-deficit hyperactivity disorder, predominantly inattentive type F90.0 and Major depressive disorder in partial remission F32.4 [facility] [address] [place] [address] 56654- 5353 Sep, [facility] [id number] [place] [address] 16244- 7338 Aug, [facility] [id number] [place] [address] 82549- 2860 Aug, [facility] [id number] [place] [address] 68446- 0632 Aug, Major depressive disorder, recurrent, mild F33.0 ; Attention -deficit hyperactivity disorder, unspecified type F90.9 and Generalized anxiety disorder F41.1 [facility] [address], [place] [address]- 7097 08 Aug, 2015 Chronic hepatitis K73.9 ; Primary osteoarthritis of both knees M17.0 and Neuralgia M79.2 [facility] [id number], [place] [address] Jul, [facility] [id number] [address] Jul, [facility] [id number] [place] [address] 49577- 1152 Jul, [facility] [id number] [place] [address] 89176- 2783 Jul, [facility] [id number] [place] [address] 92179- 8513 Jun, [facility] [id number] [place] [address] 09393- 5901 Jun, Encounter for immunization Z23 and Bronchitis J40 [facility] [id number] [place] [address] 47784- 0213 30 May, 2015 [facility] [id number] [place] [address] 53510- 2498 May, [facility] [id number] [place] [address] 55864- 2015 May, [facility] [id number] [place] [address] 86868- 9667 May, Hypokalemia 276.8 [facility] [id number] [place] [address] 02740- 5572 08 May, 2015 Major depressive disorder, recurrent episode, mild 296.31 ; Attention deficit disorder of childhood without mention of hyperactivity 314.00 and Generalized anxiety disorder 300.02 [facility] [id number] [place] [address] 68004- 3802 May, Hypertension 401.9 and Hypokalemia 276.8 [facility] [id number] [place] [address] 80518- 7135 May, [facility] [id number] [place] [address] 59602- 5478 Apr, [facility] [id number] [place] [address] 98508- 9353 Apr, [facility] [id number] [place] [address] 43562- 0129 Apr, [facility] [id number] [place] [address] 75378- 2465 Apr, [facility] [address] [place] [address] Mar, [facility] [address] [place] [address] 94[address] Mar, [facility] [id number] [place] [address] 34150- 9719 Mar, [facility] [id number] [place] [address]68- 9191 Mar, [facility] [id number] [place] [address] 21036- 6942 Mar, Arthritis of both knees 716.96 ; Hepatitis B 070.30 ; Hypertension 401.9 ; Carpal tunnel syndrome 354.0 and Cubital tunnel syndrome 354.2 [facility] [id number] [place] [address] 48888- 6065 Mar, [facility] [id number] [place] [address] 95410- 9669 Mar, [facility] [id number] [place] [address] 90102- 3284 Mar, 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, chronic, without mention of hepatitis delta 070.32 ; Chronic hepatitis C without mention of hepatic coma 070.54 and Major depressive disorder, recurrent episode, moderate 296.32 [facility] [id number] [address] 94[address] Jan, [facility] [id number] [place] [address] 76864- 6129 Jan, Major depressive disorder, recurrent episode, mild 296.31 and Attention deficit disorder of childhood without mention of hyperactivity 314.00 [facility] [id number] [address] 4[address] Jan, [facility] [id number] [place] [address] 34744- 6963 Jan, [facility] [id number], [place] [address] 4338 December, Attention deficit disorder of childhood without mention of hyperactivity 314.00 ; Major depressive disorder, recurrent episode, mild 296.31 and Generalized anxiety disorder 300.02 [facility] [address] [id number] [place] [address] 9304 08 Dec, 2014 [facility] [address] [facility] [id number] [place] [address]- 0711 14 Dec, 2014 [facility] [address] [facility] [id number] [place] [address]- 3017 13 Dec, 2014 [facility] [address] [id number], [place] [address] 3375 19 Oct, 2014 [facility] [address] [facility] [id number] [place] [address]- 3811 19 Oct, 2014 [facility] [address] [facility] [id number] [place] [address]- 8697 18 Oct, 2014 [facility] [id number] [place] [address]- 8582 18 Oct, 2014 [facility] [address] [facility] [id number] [place] [address]- 7856 18 Oct, 2014 [facility] [address] [facility] [id number] [place] [address]- 4335 18 Oct, 2014 [facility] [address] [facility] [id number] [place] [address]- 8616 16 Oct, 2014 [facility] [address] [facility] [id number], [place] [address]- 8330 13 Oct, 2014 [facility] [place] [facility] [address] [facility] [id number], [place] [address]- 7404 13 Oct, 2014 [facility] [place] [facility] [address] [facility] [id number], [place] [address]- 5356 12 Oct, 2014 [facility] [place] [facility] [address] [facility] [id number], [place] [address]- 6281 12 Oct, 2014 [facility] [place] [facility] [address] [facility] [id number], [place] [address]- 9141 10 Oct, 2014 [facility] [address] [facility] [id number] [place] [address]- 8629 10 Oct, 2014 [facility] [place] [facility] [address] [id number] [place] [address]- 7114 Oct, 2014 [facility] [place] [facility] [address] [id number] [place] [address]- 8656 Oct, 2014 [facility] [place] [facility] [address] [id number] [place] [address]- 9292 Oct, 2014 [facility] [place] [facility] [address] [id number] [place] [address]- 4881 Oct, 2014 [facility] [place] [facility] [address] [id number] [place] [address]- 9542 25 Oct, 2014 [facility] [place] [facility] [address] [facility] [id number] [place] [address]- 0732 19 Oct, 2014 [facility] [place] [facility] [address] [facility] [id number] [place] [address]- 5588 18 Oct, 2014 [facility] [place] [facility] [address] [facility] [id number] [place] [address]- 2799 17 Oct, 2014 [facility] [place] [facility] [address] [facility] [id number] [place] [address]- 9339 17 Oct, 2014 [facility] [place] [facility] [address] [facility] [id number] [place] [address]- 5962 11 Oct, 2014 [facility] [place] [facility] [address] [facility] [id number], [place] [address]- 0992 Oct, 2014 [facility] [place] [facility] [address] [facility] [id number] [place] [address]- 5858 Oct, 2014 [facility] [place] [facility] [address] [facility] [id number] [place] [address]- 9387 11 Oct, 2014 [facility] [place] [facility] [address] [facility] [id number], [place] [address]- 9552 10 Oct, 2014 [facility] [place] [facility] [address] [facility] [id number], [place] [address]- 2473 Oct, [facility] [address] [id number] [place] [address]- 5473 Sep, [facility] [place] [facility] [address] [id number] [place] [address]- 9558 Sep, [facility] [place] [facility] [address] [id number] [place] [address]- 2673 Sep, [facility] [place] [facility] [address] [id number] [place] [address]- 0502 Sep, [facility] [place] [facility] [address] [id number] [place] [address]- 3277 Sep, [facility] [place] [facility] [address] [id number] [place] [address]- 7032 Sep, [facility] [place] [facility] [address] [id number] [place] [address]- 8597 Sep, [facility] [place] [facility] [address] [id number] [place] [address]- 6464 Sep, [facility] [place] [facility] [address] [id number] [place] [address]- 8803 Sep, [facility] [place] [facility] [address] [id number] [place] [address]- 0919 Sep, [facility] [place] [facility] [address] [id number] [place] [address]- 3699 Sep, [facility] [place] [facility] [address] [id number], [place] [address]- 6738 Sep, [facility] [place] [facility] [address] [id number], [place] [address]- 4664 Sep, [facility] [place] [facility] [address] [id number] [place] [address]- 2569 Sep, [facility] [place] [facility] [address] [id number], [place] [address]- 8521 Sep, [facility] [place] [facility] [address] [id number] [place] [address]- 9344 Sep, [facility] [place] [facility] [address] [id number] [place] [address]- 4586 Aug, [facility] [place] [facility] [address] [id number] [place] 8456 Aug, [facility] [place] [facility] [address] [id number] [place] [address]- 9126 Aug, [facility] [place] [facility] [address] [id number] [place] [address]- 9503 Aug, [facility] [place] [facility] [address] [id number] [place] [address]- 6092 Aug, [facility] [place] [facility] [address] [id number] [place] [address]- 5549 Aug, [facility] [place] [facility] [address] [id number] [place] [address]- 9514 Aug, [facility] [place] [facility] [address] [id number] [place] [address]- 7866 20 Aug, 2014 [facility] [place] [facility] [address] [id number] [place] [address]- 8911 19 Aug, 2014 [facility] [place] [facility] [address] [id number] [place] [address]- 9310 18 Aug, 2014 [facility] [place] [facility] [address] [id number] [place] [address]- 9741 18 Aug, 2014 [facility] [place] [facility] [address] [id number] [place] [address]- 1786 16 Aug, 2014 [facility] [place] [facility] [address] [id number] [place] 7046 16 Aug, 2014 [facility] [place] [facility] [address] [id number] [place] [address]- 6876 15 Aug, 2014 [facility] [place] [facility] [address] [id number] [place] [address]- 2999 15 Aug, 2014 [facility] [place] [facility] [address] [id number] [place] [address]- 5608 Aug, [facility] [place] [facility] [address] [id number] [place] [address]- 5027 Aug, [facility] [place] [facility] [address] [id number] [place] [address]- 6868 Aug, [facility] [place] [facility] [address] [id number] [place] [address]- 4057 Aug, [facility] [place] [facility] [address] [id number] [place] [address]- 5515 Aug, [facility] [place] [facility] [address] [id number] [place] [address]- 2111 Aug, [facility] [place] [facility] [address] [id number] [place] [address]- 3759 Aug, [facility] [place] [facility] [address] [id number] [place] [address]- 3588 Aug, [facility] [place] [facility] [address] [id number] [place] [address]- 1743 Aug, [facility] [place] [facility] [address] [id number] [place] [address]- 0318 Aug, [facility] [place] [facility] [address] [id number], [place] [address]- 0840 Jul, [facility] [place] [facility] [address] [id number], [place] [address]- 2351 Jul, [facility] [place] [facility] [address] [id number] [place] [address]- 9649 Jul, [facility] [place] [facility] [address] [id number] [place] [address]- 2935 Jul, [facility] [place] [facility] [address] [id number] [place] [address]- 2294 Jul, [facility] [place] [facility] [address] [id number] [place] [address]- 1437 Jul, [facility] [place] [facility] [address] [id number] [place] [address]- 3726 Jun, [facility] [place] [facility] [address] [id number] [place] [address]- 9719 Jun, [facility] [place] [facility] [address] [id number] [place] [address]- 0931 Jun, [facility] [place] [facility] [address] [id number] [place] [address]- 3154 Jun, [facility] [place] [facility] [address] [id number] [place] [address]- 5539 Jun, [facility] [place] [facility] [address] [id number] [place] [address]- 1803 Jun, [facility] [place] [facility] [address] [id number] [place] [address]- 1579 Jun, [facility] [place] [facility] [address] [id number] [place] [address]- 8017 Jun, [facility] [place] [facility] [address] [id number] [place] [address]- 7866 16 May, 2013 [facility] [place] [facility] [address] [id number] [place] [address]- 7174 16 Sep, 2013 [facility] [place] [facility] [address] [id number] [place] [address]- 2543 15 May, 2013 [facility] [place] [facility] [address] [id number] [place] [address]- 1271 15 Sep, 2013 [facility] [place] [facility] [address] [id number] [place] [address]- 2517 08 Sep, 2013 [facility] [place] [facility] [address] [id number] [place] [address]- 7884 08 Sep, 2013 [facility] [place] [facility] [address] [id number] [place] [address]- 4079 May, [facility] [place] [facility] [address] [id number] [place] [address]- 6681 May, [facility] [place] [facility] [address] [id number] [place] [address]- 2627 Apr, [facility] [place] [facility] [address] [id number] [place] [address]- 8793 Apr, [facility] [place] [facility] [address] [id number] [place] [address]- 1629 Apr, [facility] [place] [facility] [address] [id number] [place] [address]- 7575 Apr, [facility] [place] [facility] [address] [id number] [place] [address]- 3469 Apr, [facility] [place] [facility] [address] [id number] [place] [address]- 8826 Apr, [facility] [place] [facility] [address] [id number] [place] [address]- 5057 Apr, [facility] [place] [facility] [address] [id number] [place] [address]- 3151 Apr, [facility] [place] [facility] [address] [id number] [place] [address]- 7882 Apr, [facility] [place] [facility] [address] [id number] [place] [address]- 8976 Apr, [facility] [place] [facility] [address] [id number] [place] [address]- 8306 Apr, [facility] [place] [facility] [address] [id number] [place] [address]- 9089 Apr, [facility] [place] [facility] [address] [id number] [place] [address]- 0055 Apr, [facility] [place] [facility] [address] [id number] [place] [address]- 4682 Mar, [facility] [place] [facility] [address] [id number] [place] [address]- 3322 Mar, [facility] [place] [facility] [address] [id number] [place] [address]- 3992 Mar, [facility] [place] [facility] [address] [id number] [place] [address]- 2750 Mar, [facility] [place] [facility] [address] [id number] [place] [address]- 8825 Jan, [facility] [place] [facility] [address] [id number] [place] [address]- 2169 Jan, [facility] [place] [facility] [address] [id number] [place] [address]- 6921 December, [facility] [place] [facility] [address] [id number] [place] [address]- 0650 December, [facility] [place] [facility] [address] [id number] [place] [address]- 6431 December, [facility] [place] [facility] [address] [id number] [place] [address]- 3292 December, [facility] [place] [facility] [address] [id number] [place] [address]- 6766 December, [facility] [place] [facility] [address] [id number] [place] [address]- 5173 December, [facility] [place] [facility] [address] [id number] [place] [address]- 0564 December, [facility] [place] [facility] [address] [id number] [place] [address]- 6620 December, [facility] [place] [facility] [address] [id number] [place] [address]- 5655 Dec, [facility] [place] [facility] [address] [id number] [place] [address]- 5563 Dec, [facility] [place] [facility] [address] [id number] [place] [address]- 2063 Dec, [facility] [place] [facility] [address] [id number] [place] [address]- 3436 24 Dec, 2013 [facility] [place] [facility] [address] [id number] [place] [address]- 2932 Oct, [facility] [place] [facility] [address] [id number] [place] [address]- 3752 Oct, [facility] [place] [facility] [address] [id number] [place] [address]- 1358 Oct, [facility] [place] [facility] [address] [id number] [place] [address]- 2169 Oct, [facility] [place] [facility] [address] [id number] [place] [address]- 3793 Oct, [facility] [place] [facility] [address] [facility] [id number] [place] [address]- 5151 Oct, [facility] [place] [facility] [address] [id number] [place] [address]- 6935 Oct, [facility] [place] [facility] [address] [id number] [place] [address]- 4488 Oct, [facility] [place] [facility] [address] [id number] [place] [address]- 0332 Oct, [facility] [place] [facility] [address] [facility] [id number] [place] [address]- 5134 Oct, [facility] [place] [facility] [address] [id number] [place] [address]- 6611 Oct, [facility] [place] [facility] [address] [id number] [place] [address]- 4843 Oct, [facility] [place] [facility] [address] [id number] [place] [address]- 4702 Oct, [facility] [place] [facility] [address] [id number] [place] [address]- 3168 Oct, [facility] [place] [facility] [address] [id number] [place] [address]- 1869 Oct, 2013 [facility] [place] [facility] [address] [id number] [place] [address]- 5393 Oct, [facility] [place] [facility] [address] [id number] [place] [address]- 9597 Oct, 2013 [facility] [place] [facility] [address] [id number] [place] [address]- 5335 Oct, 2013 [facility] [place] [facility] [address] [id number] [place] [address]- 3698 Oct, [facility] [place] [facility] [address] [id number] [place] [address]- 6860 Oct, [facility] [place] [facility] [address] [id number] [place] [address]- 8712 Oct, [facility] [place] [facility] [address] [id number] [place] [address]- 2801 Oct, [facility] [place] [facility] [address] [id number] [place] [address]- 6181 Sep, [facility] [place] [facility] [address] [id number] [place] [address]- 5189 Sep, [facility] [place] [facility] [address] [facility] [id number] [place] [address]- 6626 Sep, [facility] [place] [facility] [address] [id number] [place] [address]- 7961 Sep, [facility] [place] [facility] [address] [id number], [place] [address]- 2238 Aug, [facility] [place] [facility] [address] [id number] [place] [address]- 4151 Aug, [facility] [place] [facility] [address] [facility] [id number] [place] [address]- 5469 Aug, [facility] [place] [facility] [address] [id number], [place] [address]- 6207 Aug, [facility] [place] [facility] [address] [id number] [place] [address]- 4535 Aug, [facility] [place] [facility] [address] [id number] [place] [address]- 3254 Aug, [facility] [place] [facility] [address] [id number] [place] [address]- 9346 Aug, [facility] [place] [facility] [address] [id number] [place] 1005 Aug, [facility] [place] [facility] [address] [id number] [place] [address]- 1985 Aug, [facility] [place] [facility] [address] [id number] [place] [address]- 2443 Jul, [facility] [place] [facility] [address] [id number] [place] [address]- 7842 Jul, [facility] [place] [facility] [address] [id number] [place] [address]- 9968 Jul, [facility] [place] [facility] [address] [id number] [place] [address]- 5770 Jul, [facility] [place] [facility] [address] [id number] [place] [address]- 1787 Jul, [facility] [place] [facility] [address] [id number] [place] [address]- 5058 Jul, [facility] [place] [facility] [address] [id number] [place] [address]- 5463 Jul, [facility] [place] [facility] [address] [id number] [place] [address]- 1919 Jul, [facility] [place] [facility] [address] [id number] [place] [address] Jun, [facility] [place] [facility] [address] [id number] [place] [address] Jun, [facility] [place] [facility] [address] [id number] [place] [address] Jun, [facility] [place] [facility] [address] [id number] [place] [address] Jun, [facility] [place] [facility] [address] [id number] [place] [address] Jun, [facility] [place] [facility] [address] [id number] [place] [address] Jun, [facility] [place] [facility] [address] [id number] [place] [address] Jun, [facility] [place] [facility] [address] [id number] [place] [address] Jun, [facility] [place] [facility] [address] [id number] [place] [address] 30 May, 2013 [facility] [place] [facility] [address] [id number] [place] [address] 26 May, 2013 [facility] [place] [facility] [address] [id number] [place] [address] 23 May, 2013 [facility] [place] [facility] [address] [id number] [place] [address] 19 May, 2013 [facility] [place] [facility] [address] [id number] [place] [address] 12 May, 2013 [facility] [place] [facility] [address] [id number], [place] [address] May, [facility] [place] [facility] [address] [id number], [place] [address] Apr, [facility] [place] [facility] [address] [id number] [place] [address] Apr, [facility] [place] [facility] [address] [id number] [place] [address]99 Apr, [facility] [place] [facility] [address] [id number] [place] [address]- [address] Apr, [facility] [place] [facility] [address] [id number] [place] [address] Apr, [facility] [address] [id number] [place] [address] Apr, [facility] [place] [facility] [address] [id number] [place] [address] Apr, [facility] [address] [id number] [place] [address] Mar, [facility] [place] [facility] [address] [id number] [place] [address] Mar, [facility] [place] [facility] [address] [id number] [place] [address] Mar, [facility] [place] [facility] [address] [id number] [place] [address] Mar, [facility] [place] [facility] [address] [id number] [place] [address] Mar, [facility] [address] [id number] [place] [address] Mar, [facility] [place] [facility] [address] [id number] [place] [address] Mar, [facility] [address] [id number] [place] [address] Jan, [facility] [place] [facility] [address] [id number] [place] [address]- [address] Jan, [facility] [place] [facility] [address] [id number] [place] [address] Jan, [facility] [place] [facility] [address] [id number] [place] [address] 18[address] Jan, [facility] [place] [facility] [address] [id number] [place] [address] Jan, [facility] [place] [facility] [address] [id number] [place] [address] Jan, [facility] [address] [id number] [place] [address] Jan, [facility] [address] [id number] [place] [address] December, [facility] [address] [id number] [place] [address] December, [facility] [address] [id number] [place] [address] December, [facility] [address] [id number] [place] [address] December, [facility] [address] [id number] [place] [address] 30 Dec, 2012 [facility] [address] [id number] [place] [address] Dec, [facility] [address] [id number] [place] [address] Dec, [facility] [address] [id number] [place] [address]- [address] 29 Oct, 2012 [facility] [address] [id number] [place] [address] Oct, [facility] [place] [facility] [address] [id number] [place] [address] Oct, [facility] [place] [facility] [address] [id number], [place] [address] Oct, [facility] [place] [facility] [address] [id number] [place] [address] 40[address] Oct, [facility] [place] [facility] [address] [id number] [place] [address] Oct, [facility] [place] [facility] [address] [id number], [place] [address] 18 Oct, 2012 [facility] [place] [facility] [address] [id number], [place] [address] Oct, [facility] [address] [id number] [place] [address] Oct, [facility] [address] [id number] [place] [address]- [address] 08 Oct, 2012 [facility] [address] [id number] [place] [address] Oct, [facility] [address] [id number] [place] [address] Sep, [facility] [address] [id number] [place] [address] Sep, [facility] [address] [id number] [place] [address] Sep, [facility] [address] [id number] [place] [address] 07 Aug, 2012 [facility] [address] [id number] [place] [address] Aug, [facility] [address] [id number] [place] [address] Aug, [facility] [address] [facility] [id number] [place] [address]- [address] Aug, [facility] [address] [id number] [place] [address]- 69[address] Jul, [facility] [address] [id number] [place] [address]- [address] Jul, [facility] [place] [facility] [address] [id number] [place] [address]- 285[address] Jul, [facility] [place] [facility] [address] [id number] [place] [address]- 9266 Jul, [facility] [address] [id number], [place] [address] Jul, [facility] [place] [facility] [address] [id number] [place] [address]- [address] Jul, [facility] [place] [facility] [address] [id number] [place] [address]- 45[address] Jul, [facility] [place] [facility] [address] [id number] [place] [address] Jul, [facility] [place] [facility] [address] [id number] [place] [address] Jun, [facility] [place] [facility] [address] [id number] [place] [address] Jun, [facility] [place] [facility] [address] [id number] [place] [address] Jun, [facility] [place] [facility] [address] [id number] [place] [address] Jun, [facility] [place] [facility] [address] [id number] [place] [address] Jun, [facility] [place] [facility] [address] [id number] [place] [address] May, [facility] [place] [facility] [address] [id number] [place] [address] May, [facility] [place] [facility] [address] [id number] [place] [address] 18 May, 2012 [facility] [place] [facility] [address] [id number] [place] [address] May, [facility] [place] [facility] [address] [id number] [place] [address] May, [facility] [place] [facility] [address] [id number] [place] [address] Apr, [facility] [place] [facility] [address] [id number] [place] [address] Apr, [facility] [place] [facility] [address] [id number] [place] [address] Apr, [facility] [place] [facility] [address] [id number] [place] [address] Apr, [facility] [place] [facility] [address] [id number] [place] [address] Apr, [facility] [place] [facility] [address] [id number] [place] [address] Apr, [facility] [place] [facility] [address] [id number] [place] [address] Apr, [facility] [place] [facility] [address] [id number] [place] [address] Mar, [facility] [place] [facility] [address] [id number] [place] [address] Mar, [facility] [place] [facility] [address] [id number] [place] [address] Mar, [facility] [place] [facility] [address] [id number] [place] [address] Mar, [facility] [place] [facility] [address] [id number] [place] [address] Jan, [facility] [place] [facility] [address] [id number] [place] [address] Jan, [facility] [place] [facility] [address] [id number] [place] [address] Jan, [facility] [place] [facility] [address] [id number] [place] [address] Jan, [facility] [place] [facility] [address] [id number] [place] [address] Jan, [facility] [place] [facility] [address] [id number] [place] [address] Jan, [facility] [place] [facility] [address] [id number] [place] [address] December, [facility] [place] [facility] [address] [id number] [place] [address] December, [facility] [address] [id number] [place] [address] December, [facility] [address] [id number] [place] [address] December, [facility] [address] [id number] [place] [address] Dec, [facility] [address] [id number] [place] [address] Dec, [facility] [address] [id number] [place] [address] Oct, [facility] [address] [id number] [place] [address] Oct, [facility] [address] [id number] [place] [address] Oct, [facility] [address] [id number] [place] [address]20 16 Nov, 2011 [facility] [address] [id number] [place] [address] Oct, [facility] [address] [facility] [id number] [place] [address] Oct, [facility] [address] [id number] [place] [address] Oct, [facility] [address] [id number] [place] [address]- [address] Oct, [facility] [place] [facility] [address] [id number] [place] [address] Oct, [facility] [address] [id number] [place] [address] Oct, [facility] [address] [id number] [place] [address] Oct, [facility] [address] [id number] [place] [address] 8088 Sep, [facility] [place] [facility] [address] [id number] [place] [address] Sep, [facility] [place] [facility] [address] [id number] [place] [address] 277[address] Sep, [facility] [place] [facility] [address] [id number] [place] [address] 27[address] Sep, [facility] [place] [facility] [address] [id number] [place] [address] Sep, [facility] [place] [facility] [address] [id number] [place] [address] 7970 Sep, [facility] [place] [facility] [address] [id number] [place] [address]- 44[address] Sep, [facility] [place] [facility] [address] [id number] [place] [address]- 2847 Sep, [facility] [place] [facility] [address] [id number] [place] [address] Aug, [facility] [place] [facility] [address] [id number] [place] [address] Aug, [facility] [place] [facility] [address] [id number] [place] [address] Aug, [facility] [place] [facility] [address] [id number] [address] Jul, [facility] [place] [facility] [address] [id number] [place] [address] Jul, [facility] [place] [facility] [address] [id number] [place] [address] 18 Jul, 2011 [facility] [place] [facility] [address] [id number] [place] [address] 17 Jul, 2011 [facility] [place] [facility] [address] [id number] [place] [address]- 98[address] 08 Jul, 2011 [facility] [address] [id number] [place] [address]- [address] 02 Jul, 2011 [facility] [place] [facility] [address] [id number] [place] [address]- 8[address] 31 Jun, 2011 [facility] [place] [facility] [address] [id number] [place] [address]- [address]207 20 Jun, 2011 [facility] [place] [facility] [address] [id number] [place] [address]- 2220 20 Mar, 2011 [facility] [place] [facility] [address] [id number] [place] [address]- [address]990 14 Dec, 2010 [facility] [place] [facility] [address] [id number] [place] [address]- 94[address] 14 Oct, 2010 [facility] [place] [facility] [address] [id number] [place] [address]- [address] 06 Aug, 2010 [facility] [place] [facility] [address] [id number] [place] [address]- [address] 30 Jul, 2010 [facility] [place] [facility] [address] [id number] [place] [address]- [address] 11 Jul, 2010 [facility] [place] [facility] [address] [facility] [id number] [place] [address]- [address] 10 Jul, 2010 [facility] [place] [facility] [address] [id number] [place] [address]- [address] 09 Jul, 2010 [facility] [place] [facility] [address] [id number] [place] [address]- 1056 08 Jul, 2010 [facility] [place] [facility] [address] [id number] [place] [address]- 9435 22 Aug, 2009 [facility] [place] [facility] [address] [id number] [place] [address]- 1053 15 Aug, 2009 [facility] [place] [facility] [address] [id number] [place] [address]- [address] 14 Aug, 2009 [facility] [place] [facility] [address] [id number] [address] Aug, [facility] [id number] [address] Jul, [facility] [id number], [place] [address] Jul, [facility] [id number] [place] [address] Jul, [facility] [id number], [place] [address] Jul, [facility] [id number] [place] [address] Jun, [facility] [id number], [place] [address] Jun, IMMUNIZATIONS No Known Immunizations SOCIAL HISTORY Never Assessed REASON FOR VISIT Lab (walk-in) PLAN OF CARE VITAL SIGNS MEDICATIONS Unknown Medications RESULTS Name Result Date Reference Range URINE PROTEIN TO CREATININE RATIO 2017-05-03 Creatinine, Urine 123.5 Not Estab. Protein,Total,Urine 48.6 Not Estab. Protein/Creat Ratio 394 0-200 UA W/ MICROSCOPY 2017-05-03 Specific [place] 1.016 1.005-1.030 pH 6.0 5.0-7.5 Urine-Color Yellow Yellow Appearance Clear Clear WBC Esterase Negative Negative Protein Trace Negative/Trace Glucose Negative Negative Ketones Negative Negative Occult Blood Negative Negative Bilirubin Negative Negative Urobilinogen,Semi-Qn 1.0 0.2-1.0 Nitrite, Urine Negative Negative Microscopic Examination Microscopic Examination See below: WBC 0-5 0 - 5 RBC 0-2 0 - 2 Epithelial Cells (non renal) >10 0 - 10 Mucus Threads Present Not Estab. Bacteria Moderate None seen/Few CMP 2017-05-03 Glucose, Serum 104 65-99 BUN 10 6-24 Creatinine, Serum 1.30 0.57-1.00 eGFR If NonAfricn Am 45 >59 eGFR If Africn Am 52 >59 BUN/Creatinine Ratio 8 9-23 Sodium, Serum 138 134-144 Potassium, Serum 4.1 3.5-5.2 Chloride, Serum 98 96-106 Carbon Dioxide, Total 23 18-29 Calcium, Serum 9.1 8.7-10.2 Protein, Total, Serum 7.3 6.0-8.5 Albumin, Serum 3.8 3.5-5.5 Globulin, Total 3.5 1.5-4.5 A/G Ratio 1.1 1.2-2.2 Bilirubin, Total 0.2 0.0-1.2 Alkaline Phosphatase, S 139 39-117 AST (SGOT) 14 0-40 ALT (SGPT) 5 0-32 CBC w/ MANUAL DIFF 2017-05-03 WBC 6.6 3.4-10.8 RBC 4.65 3.77-5.28 Hemoglobin 15.2 11.1-15.9 Hematocrit 45.4 34.0-46.6 MCV 98 79-97 MCH 32.7 26.6-33.0 MCHC 33.5 31.5-35.7 RDW 13.9 12.3-15.4 Platelets 240 150-379 Neutrophils 68 Lymphs 25 Monocytes 6 Eos 1 Basos 0 Neutrophils Absolute 4.5 1.4-7.0 Lymphs (Absolute) 1.6 0.7-3.1 Monocytes(Absolute) 0.4 0.1-0.9 Eos (Absolute Value) 0.1 0.0-0.4 Baso(Absolute) 0.0 0.0-0.2 Differential Comment Note: RBC Comment Note: Normal Platelet Comment Note: Adequate PROCEDURES Procedure Date Ordered Result Body Site [facility] May 03, 2017 VENIPUNCT, ROUTINE* May 03, 2017 INSTRUCTIONS MEDICATIONS ADMINISTERED No Known Medications [...]
--- OUTSIDE RECORDS SUMMARY | 2018-03-17 11:08 | XMS REPORT ---
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 Active 26595721 Problem Attention-deficit hyperactivity disorder, predominantly inattentive type F90.0 Active 80003114 Problem Obstructive sleep apnea G47.33 Active 75268369 Problem Primary insomnia F51.01 Active 7142729 Problem Neuralgia M79.2 Active 99366015 Problem Cannabis use disorder, mild, abuse F12.10 Active 53596652 Problem Folic acid deficiency E53.8 Active 506606101 Problem Restless legs G25.81 Active 51235273 Problem Major depressive disorder, recurrent, mild F33.0 Active 28118019 Problem Generalized anxiety disorder F41.1 Active 22792757 Problem Major depressive disorder, recurrent episode, moderate F33.1 Active 577679109 Problem Hypertension I10 Active 16561138 Problem Hyperlipidemia E78.5 Active 96695807 Problem Primary osteoarthritis of both knees M17.0 Active 534653233 Problem Chronic hepatitis K73.9 Active 36478724 Problem Low back pain M54.5 Active 549344677 Problem Chronic viral hepatitis B without delta-agent B18.1 Active 891438983 Problem Insomnia G47.00 Active 693654083 Problem Hypothyroid E03.9 Active 27814844 Problem Depression, major, recurrent, mild F33.0 Active 869659630 Problem Obesity due to excess calories, unspecified obesity severity E66.09 Active 447937448 ALLERGIES Substance Reaction Event Type Date Status Trazodone HCl "weird dreams" Drug Allergy Sep, Active ENCOUNTERS Encounter Location Date Diagnosis [facility] [address] [facility] [id number] [address] Mar, [facility] [address] [facility] [id number] [address] Jan, [facility] [id number] [place] [address] 05602- 0807 December, [facility] [address] 8[address]- 5689 December, [facility] [id number] [place] [address] 37374- 0284 Dec, Bone pain M89.8X9 [facility] [address] 6[address]- 6348 Dec, [facility] [address] 59820- 2829 Oct, [facility] [id number] [place] [address] 12202- 3470 05 Oct, 2017 Syncope, unspecified syncope type R55 ; Primary insomnia F51.01 ; Dry mouth R68.2 and Cannabis use disorder, mild, abuse F12.10 [facility] [id number] [place] [address] 71495- 2282 Oct, [facility] [id number] [place] [address] 16870- 4209 Sep, [facility] [id number] [place] [address] 24230- 8461 Sep, [facility] [id number] [place] [address] 05388- 5638 Sep, [facility] [id number] [place] [address] [id number] Sep, Dental examination Z01.20 [facility] [address] 01664- 5444 Sep, Dental examination Z01.20 [facility] [id number] [place] [address] 35025- 6666 Sep, Sinus congestion R09.81 ; Mouth sores K13.79 ; Low back pain M54.5 and Mouth swelling R22.0 [facility] [id number] [place] [address] 92114- 3203 Aug, Low back pain M54.5 [facility] [id number] [place] [address] 05246- 2426 Aug, Low back pain M54.5 [facility] [address] 07321- 9719 Jul, [place] [address] 47768- 2141 Jul, 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 ; Encounter for immunization Z23 ; Hypothyroid E03.9 ; Decreased renal function N28.9 and Muscle cramps R25.2 [place] [address] 24175- 1623 Jul, [place] [address] 66919- 7479 Jul, [place] [address] 40948- 5857 Jul, [place] [address] 09908- 5913 Jul, Major depressive disorder, recurrent, mild F33.0 [place] [place] [id number] [place] [address] 26591- 1652 Jul, Acquired cyst of kidney N28.1 ; Acidosis E87.2 and Hyperkalemia E87.5 [place] [id number] [place] [address] 94825- 6153 Jul, Major depressive disorder, recurrent, mild F33.0 ; Attention -deficit hyperactivity disorder, predominantly inattentive type F90.0 and Generalized anxiety disorder F41.1 [facility] [id number] [place] [address] 32785- 0862 Jul, Low back pain M54.5 [facility] [address] 35498- 2322 Jun, Cough R05 ; Low back pain M54.5 and Pre-syncope R55 [facility] [id number] [place] [address] 64620- 2442 Jun, Low back pain M54.5 [facility] [id number] [place] [address] [id number] Jun, Dental caries K02.9 [facility] [id number] [place] [address] 59390- 4832 Jun, [facility] [id number] [place] [address] 27791- 1966 Jun, Major depressive disorder, recurrent, mild F33.0 ; Attention -deficit hyperactivity disorder, predominantly inattentive type F90.0 and Generalized anxiety disorder F41.1 [facility] [id number] [place] [address] 13850- 0603 May, Vertigo R42 ; Confusion R41.0 ; Weakness R53.1 and Vision changes H53.9 [facility] [id number] [place] [address] 78172- 3731 May, [facility] [id number] [place] [address] 79800- 4019 May, [facility] [id number] [place] [address] 58963- 6706 May, Low back pain M54.5 [facility] [id number] [place] [address] 65774- 8146 05 May, 2017 Major depressive disorder, recurrent, mild F33.0 ; Attention -deficit hyperactivity disorder, predominantly inattentive type F90.0 and Generalized anxiety disorder F41.1 [facility] [id number] [place] [address] 49514- 1699 May, [facility] [id number] [place] [address] 81897- 2305 May, Acute worsening of stage 3 chronic kidney disease N18.3 [facility] [id number] [place] [address] 48681- 1134 Apr, [facility] [address] 39396- 5701 Apr, Acute allergic rhinitis due to pollen, unspecified seasonality J30.1 ; Restless legs G25.81 and Low back pain M54.5 [place] [address] 08699- 6636 10 Apr, 2017 Primary osteoarthritis of both knees M17.0 [facility] [id number] [place] [address] 55061- 5941 Apr, Generalized anxiety disorder F41.1 [place] [id number] [place] [address] 08295- 4871 Apr, Major depressive disorder, recurrent, mild F33.0 ; Attention -deficit hyperactivity disorder, predominantly inattentive type F90.0 and Generalized anxiety disorder F41.1 [facility] [id number] [place] [address] 51064- 3222 Apr, [facility] [id number] [place] [address] 39292- 5966 Mar, Major depressive disorder, recurrent episode, moderate F33.1 ; Generalized anxiety disorder F41.1 and ADHD, predominantly inattentive type F90.0 [facility] [id number] [place] [address] 45080 -6959 Mar, Abscess L02.91 [facility] [id number] [place] [address] 86383- 0616 Mar, 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 [facility] [id number] [place] [address] 24485- 8720 Mar, Decreased renal function N28.9 [facility] [id number] [place] [address] [id number] Mar, Dental examination Z01.20 [facility] [address] [place] [address]- 0414 17 Mar, 2017 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 [facility] [id number] [place] [address] 43754- 1397 Mar, 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 [facility] [id number] [place] [address] [id number] 14 Mar, 2017 Dental examination Z01.20 and Dental caries K02.9 [place] [address] 11805- 4201 Mar, Chronic viral hepatitis B without delta-agent B18.1 ; Folic acid deficiency E53.8 ; 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 and Decreased renal function N28.9 [place] [id number] [place] [address] 07022- 0721 Mar, Major depressive disorder, recurrent, mild F33.0 [place] [id number] [place] [address] 48324- 6302 Mar, [facility] [id number] [place] [address] 67035- 7722 Mar, Chronic hepatitis K73.9 ; 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 ; Localized edema R60.0 ; Illicit drug use F19.90 ; Vision changes H53.9 and Obesity due to excess calories, unspecified obesity severity E66.09 [place] [id number] [place] [address] 23075- 5502 Jan, Major depressive disorder, recurrent, mild F33.0 [facility] [id number] [place] [address] 24429- 7921 Jan, Chronic viral hepatitis B without delta-agent B18.1 [facility] [id number] [place] [address] 06131- 4140 Jan, [place] [id number] [place] [address] 93832- 7328 Jan, Weight gain R63.5 ; Hypothyroid E03.9 ; 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 ; Decreased renal function N28.9 and Chronic viral hepatitis B without delta-agent B18.1 [place] [id number] [place] [address] 84239- 8982 December, Major depressive disorder, recurrent, mild F33.0 and Generalized anxiety disorder F41.1 [place] [place] [id number] [place] [address] 91132- 6169 December, Obesity due to excess calories, unspecified obesity severity E66.09 and Folic acid deficiency E53.8 [facility] [id number] [place] [address] 24435- 9388 December, Folic acid deficiency E53.8 [place] [id number] [place] [address] 74046- 3350 December, Folic acid deficiency E53.8 [place] [id number] [place] [address] 64352- 9302 December, Obesity due to excess calories, unspecified obesity severity E66.09 [place] [id number] [place] [address] 77431- 1483 December, [place] [address] 47844- 6998 December, Folic acid deficiency E53.8 [facility] [id number] [place] [address] [id number] December, Encounter for other administrative examinations Z02.89 [place] [id number] [place] [address] 56853- 4499 Dec, [facility] [id number] [place] [address] [id number] Dec, Dental caries K02.9 [place] [id number] [place] [address] 09504- 3442 Oct, Bone pain M89.8X9 [place] [id number] [place] [address] 40200- 7848 Oct, Hypothyroid E03.9 [place] [address] [address]- 9745 Oct, Hypothyroid E03.9 [facility] [id number] [place] [address] 75135- 4416 Oct, Breast cancer screening Z12.39 [facility] [address] [id number] 08 Oct, 2016 Dental examination Z01.20 [facility] [id number] [place] [address] 78152- 8061 Oct, [facility] [id number] [place] [address] 43913- 8841 Oct, Major depressive disorder, recurrent, mild F33.0 and Generalized anxiety disorder F41.1 [place] [address] [address]- 9492 Oct, [facility] [id number] [place] [address] 52901- 7235 Oct, Hypothyroid E03.9 [facility] [id number] [place] [address] 32139- 0579 Sep, Hypothyroid E03.9 ; Chronic viral hepatitis B without delta- agent B18.1 and Folic acid deficiency E53.8 [facility] [address] [address]- 9705 Sep, Hypothyroidism, unspecified type E03.9 ; Elevated parathyroid hormone E34.9 and Chronic viral hepatitis B without delta-agent B18.1 [facility] [address] [address]- 3553 Sep, [facility] [address] [address]- 9145 Sep, Elevated parathyroid hormone E34.9 [facility] [address] [address]- 0092 Sep, [facility] [id number] [place] [address] 04905- 4308 Sep, Chronic hepatitis K73.9 ; Bone pain M89.8X9 and Abnormal complete blood count R79.89 [facility] [address] 64068- 2559 27 Aug, 2016 Major depressive disorder, recurrent, mild F33.0 [place] [address] 29416- 5687 Aug, Bone pain M89.8X9 [place] [address] 17877- 8261 Aug, [place] [address] 54017- 8949 Jul, Chronic viral hepatitis B without delta-agent B18.1 [place] [address] 99533- 2265 Jul, Hypothyroidism, unspecified type E03.9 [place] [address] 67179- 2715 Jul, [place] [address] 06805- 2051 Jul, Chronic hepatitis K73.9 and Hypothyroid E03.9 [place] [address] 46379- 8153 Jul, Low back pain M54.5 [place] [address] 73815- 2151 31 Jun, 2016 Depression, major, recurrent, mild F33.0 and ADD (attention deficit disorder) F90.0 [place] [address] 74790- 3311 Jun, [place] [address] 21655- 4673 Jun, Low back pain M54.5 [place] [address] [place] [address]- 6118 Jun, Encounter for immunization Z23 ; Major depressive disorder, recurrent, mild F33.0 and Attention-deficit hyperactivity disorder, predominantly inattentive type F90.0 [facility] [id number] [place] [address] 78537- 7177 Jun, [facility] [id number] [place] [address] 67552- 9425 Jun, Low back pain M54.5 [facility] [id number] [place] [address] 13086- 6349 May, [facility] [address] 89000- 4717 May, [facility] [id number] [place] [address] 95549- 0906 May, Essential (primary) hypertension I10 [facility] [id number] [place] [address] 21363- 2887 May, Low back pain M54.5 [facility] [id number] [place] [address] 07602- 6478 12 May, 2016 Low back pain M54.5 ; Chronic hepatitis K73.9 and Hypothyroid E03.9 [facility] [id number] [place] [address] 34503- 9637 May, Hypothyroidism, unspecified type E03.9 [facility] [id number] [place] [address] 77814- 1988 08 May, 2016 Low back pain M54.5 [facility] [id number] [place] [address] 27681- 9298 07 May, 2016 [facility] [id number] [place] [address] 69902- 2146 May, [facility] [id number] [place] [address] 37803- 5141 May, Major depressive disorder, recurrent, moderate F33.1 ; Generalized anxiety disorder F41.1 ; Insomnia G47.00 and ADD (attention deficit disorder) F90.0 [place] [address] 30550- 3684 Apr, Low back pain M54.5 [place] [id number] [place] [address] 42454- 7774 Apr, [place] [address] 74377- 0606 Apr, Low back pain M54.5 [place] [address] 64448- 2111 Apr, Low back pain M54.5 ; Tooth pain K08.8 and Seasonal allergic rhinitis due to pollen J30.1 [place] [address] 48415- 0625 Apr, Low back pain M54.5 [place] [address] 27080- 6899 Apr, [facility] Pap smear of vagina R87.622 [place] [address] 79442- 4349 Apr, Low back pain M54.5 [place] [id number] [place] [address] 49960- 5004 Mar, [place] [id number] [place] [address] 36967- 1242 Mar, Low back pain M54.5 [facility] [place] [id number] [place] [address] 47423- 9899 Mar, Encounter for Papanicolaou smear for cervical cancer screening Z12.4 ; Encounter for routine gynecological examination Z01.419 and Breast cancer screening Z12.39 [facility] [place] [id number] [place] [address] 43222- 5417 Mar, Hypothyroidism, unspecified type E03.9 [place] [address] [address]- 7983 Mar, Low back pain M54.5 ; Other chronic pain G89.29 ; Hypothyroid E03.9 and Hypothyroidism, unspecified type E03.9 [facility] [address] [address]- 6696 Mar, Major depressive disorder, recurrent, moderate F33.1 and Attention-deficit hyperactivity disorder, predominantly inattentive type F90.0 [facility] [address] [address] -0357 Mar, Bronchitis J40 [facility] [id number] [place] [address] 87342- 6227 Jan, [facility] [id number] [place] [address] 05121- 2251 Jan, [facility] [id number] [place] [address] 53086- 4466 Jan, Insomnia G47.00 [facility] [id number] [place] [address] 41048- 9674 December, [facility] [id number] [place] [address] 00756- 1073 December, Major depressive disorder in partial remission F32.4 and Attention-deficit hyperactivity disorder, unspecified type F90.9 [facility] [id number] [place] [address] 02353- 7882 December, [facility] [address] [address]- 6681 December, [facility] [id number] [place] [address] 93699- 6690 Dec, [facility] [id number] [place] [address] 58180- 2469 Dec, Major depressive disorder, recurrent episode, moderate 296.32 and Attention deficit disorder of childhood without mention of hyperactivity 314.00 [facility] [id number] [place] [address] 23517- 5458 Dec, Major depressive disorder, recurrent episode, mild 296.31 ; ADD (attention deficit disorder) F90.0 and Hyperlipidemia E78.5 [facility] [id number] [place] [address] 86331- 9666 Dec, Insomnia G47.00 [facility] [place] [id number] [place] [address] 59799- 6246 Dec, Attention-deficit hyperactivity disorder, predominantly inattentive type F90.0 [facility] [id number] [place] [address] 44678- 4102 Oct, Restless legs syndrome G25.81 [facility] [id number] [place] [address] 16170- 7915 Oct, Hypothyroidism, unspecified type E03.9 [facility] [id number] [place] [address] 87752- 6469 Oct, [facility] [id number] [place] [address] 90858- 1701 Oct, [facility] [id number] [place] [address] 31266- 7513 Oct, Hypothyroid E03.9 and Chronic hepatitis K73.9 [facility] [place] [id number] [place] [address] 61149- 9085 Oct, [facility] [id number] [place] [address] 93253- 4965 Oct, Restless legs syndrome G25.81 ; Chronic hepatitis K73.9 ; Hypertension I10 ; Hypothyroid E03.9 and Breast cancer screening Z12.39 [facility] [place] [id number] [place] [address] 55569- 2367 Oct, [place] [id number] [place] [address] 61310- 6608 Oct, [place] [address] [place] [address]- 7388 Oct, [facility] [address] [address]- 3495 Oct, [facility] [address] [address]- 5369 Oct, [facility] [address] [address]- 0191 Oct, [facility] [address] [address]- 4148 Oct, [facility] [id number] [place] [address] 73345- 7850 Sep, [facility] [address] [address]- 3473 Sep, Attention-deficit hyperactivity disorder, predominantly inattentive type F90.0 and Major depressive disorder in partial remission F32.4 [facility] [address] [address]- 4944 Sep, [facility] [id number] [place] [address] 15425- 7884 Aug, [facility] [address] [address]- 8668 Aug, [facility] [address] [address]- 9406 Aug, Major depressive disorder, recurrent, mild F33.0 ; Attention -deficit hyperactivity disorder, unspecified type F90.9 and Generalized anxiety disorder F41.1 [facility] [id number] [address] 08 Aug, 2015 Chronic hepatitis K73.9 ; Primary osteoarthritis of both knees M17.0 and Neuralgia M79.2 [facility] [id number] [address] Jul, [facility] [id number] [place] [address] Jul, [facility] [id number] [place] [address]- [address] Jul, [facility] [id number] [place] [address]- [address] Jul, [facility] [address] [address] Jun, [facility] [address] [address] Jun, Bronchitis J40 and Encounter for immunization Z23 [facility] [address] [address] 30 May, 2015 [facility] [address] [address] May, [facility] [id number] [place] [address] May, [facility] [id number] [place] [address]- [address] May, Hypokalemia 276.8 [facility] [id number] [place] [address]- [address] 08 May, 2015 Major depressive disorder, recurrent episode, mild 296.31 ; Attention deficit disorder of childhood without mention of hyperactivity 314.00 and Generalized anxiety disorder 300.02 [facility] [id number] [place] [address]- [address] May, Hypertension 401.9 and Hypokalemia 276.8 [facility] [id number] [place] [address]- [address] May, [facility] [id number] [place] [address]- 3154 Apr, [facility] [id number] [place] [address]28- 6585 Apr, [facility] [address] [address] 7181 Apr, [facility] [address] [address] 4645 Apr, [facility] [address] [address] 3448 Mar, [facility] [id number] [place] [address] 43856- 7990 Mar, [facility] [address] [address] 3445 Mar, [facility] [id number] [place] [address] 99646- 7944 Mar, [facility] [id number] [place] [address] 15329- 6804 Mar, Arthritis of both knees 716.96 ; Hepatitis B 070.30 ; Hypertension 401.9 ; Carpal tunnel syndrome 354.0 and Cubital tunnel syndrome 354.2 [facility] [address] [address] 9778 Mar, [facility] [address] [address] 1283 Mar, [facility] [address] [address] 6106 Mar, 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, chronic, without mention of hepatitis delta 070.32 ; Chronic hepatitis C without mention of hepatic coma 070.54 and Major depressive disorder, recurrent episode, moderate 296.32 [facility] [address] [address] 7962 Jan, [facility] [id number] [place] [address] 11662- 2767 Jan, Major depressive disorder, recurrent episode, mild 296.31 and Attention deficit disorder of childhood without mention of hyperactivity 314.00 [facility] [id number] [address] 7042 Jan, [facility] [address] [address]- 5903 Jan, [facility] [address] [address]- 1068 December, Attention deficit disorder of childhood without mention of hyperactivity 314.00 ; Major depressive disorder, recurrent episode, mild 296.31 and Generalized anxiety disorder 300.02 [facility] [address] [address]- 7074 December, [facility] [id number] [place] [address] 41048- 4436 Dec, [facility] [address] [address]- 0252 Dec, [facility] [address] [address]- 4089 19 Oct, 2014 [facility] [address] [address]- 5539 19 Oct, 2014 [facility] [address] [address]- 1589 18 Oct, 2014 [facility] [address] [address]- 6963 18 Oct, 2014 [facility] [id number] [address]- 9037 18 Oct, 2014 [facility] [address] [address]- 6685 18 Oct, 2014 [facility] [address] [address]- 9800 16 Oct, 2014 [facility] [address] [address]- 5507 13 Oct, 2014 [facility] [address] [id number] [address]- 4504 13 Oct, 2014 [facility] [place] [facility] [address] [id number] [place] [address]- 4373 Oct, [facility] [place] [facility] [address] [id number] [place] [address]- 2143 Oct, [facility] [place] [facility] [address] [id number] [place] [address]- 4505 Oct, [facility] [place] [facility] [address] [id number] [place] [address]- 1642 Oct, [facility] [place] [facility] [address] [id number] [place] [address]- 7850 Oct, [facility] [place] [facility] [address] [id number] [place] [address]- 9301 Oct, [facility] [place] [facility] [address] [facility] [id number] [place] [address]- 4275 Oct, [facility] [place] [facility] [address] [facility] [id number] [place] [address]- 4916 Oct, 2014 [facility] [place] [facility] [address] [facility] [id number] [place] [address]- 1801 Oct, [facility] [place] [facility] [address] [facility] [id number] [place] [address]- 9396 Oct, 2014 [facility] [place] [facility] [address] [facility] [id number] [place] [address]- 1970 18 Oct, 2014 [facility] [place] [facility] [address] [facility] [id number] [place] [address]- 0077 Oct, 2014 [facility] [place] [facility] [address] [id number] [place] [address]- 8838 Oct, 2014 [facility] [place] [facility] [address] [id number] [place] [address]- 3252 Oct, 2014 [facility] [place] [facility] [address] [facility] [id number] [place] [address]- 5274 Oct, 2014 [facility] [place] [facility] [address] [facility] [id number] [place] [address]- 9162 11 Oct, 2014 [facility] [address] [id number] [place] [address]- 6296 Oct, [facility] [place] [facility] [address] [id number] [place] [address]- 2396 Oct, [facility] [place] [facility] [address] [id number] [place] [address]- 8956 Oct, [facility] [place] [facility] [address] [id number] [place] [address]- 7655 Sep, [facility] [place] [facility] [address] [id number] [place] [address]- 6372 Sep, [facility] [place] [facility] [address] [id number] [place] [address]- 1409 Sep, [facility] [place] [facility] [address] [id number] [place] [address]- 6575 Sep, [facility] [place] [facility] [address] [id number] [place] [address]- 6170 Sep, [facility] [place] [facility] [address] [id number] [place] [address]- 4170 Sep, [facility] [place] [facility] [address] [id number] [place] [address]- 3477 Sep, [facility] [place] [facility] [address] [id number] [place] [address]- 8169 Sep, [facility] [place] [facility] [address] [id number] [place] [address]- 2688 Sep, [facility] [place] [facility] [address] [id number] [place] [address]- 9601 Sep, [facility] [place] [facility] [address] [id number] [place] [address]- 2888 Sep, [facility] [place] [facility] [address] [id number] [place] [address]- 1006 Sep, [facility] [address] [id number] [place] [address]- 1359 Sep, [facility] [place] [facility] [address] [id number] [place] [address]- 1675 Sep, [facility] [place] [facility] [address] [id number] [place] [address]- 7633 Sep, [facility] [place] [facility] [address] [id number] [place] [address]- 1833 Sep, [facility] [place] [facility] [address] [id number] [place] [address]- 0398 Aug, [facility] [place] [facility] [address] [id number] [place] [address]- 8021 Aug, [facility] [place] [facility] [address] [id number] [place] [address]- 5491 Aug, [facility] [place] [facility] [address] [id number] [place] [address]- 8432 Aug, [facility] [place] [facility] [address] [id number] [place] [address]- 8371 Aug, [facility] [place] [facility] [address] [id number] [place] [address]- 6092 Aug, [facility] [place] [facility] [address] [id number] [place] [address]- 9434 Aug, [facility] [place] [facility] [address] [id number] [place] [address]- 4016 Aug, [facility] [place] [facility] [address] [id number] [place] [address]- 4358 Aug, [facility] [place] [facility] [address] [id number] [place] [address]- 0495 Aug, [facility] [place] [facility] [address] [id number] [place] 9181 Aug, [facility] [place] [facility] [address] [id number] [place] [address]- 4792 16 Aug, 2014 [facility] [place] [facility] [address] [id number] [place] [address]- 4652 16 Aug, 2014 [facility] [place] [facility] [address] [id number] [place] [address]- 8776 15 Aug, 2014 [facility] [place] [facility] [address] [id number] [place] [address]- 7646 15 Aug, 2014 [facility] [place] [facility] [address] [id number] [place] [address]- 3507 10 Aug, 2014 [facility] [place] [facility] [address] [id number] [place] [address]- 5627 10 Aug, 2014 [facility] [place] [facility] [address] [id number] [place] [address]- 6464 Aug, [facility] [place] [facility] [address] [id number] [place] [address]- 6182 Aug, [facility] [place] [facility] [address] [id number] [place] [address]- 7677 04 Aug, 2014 [facility] [place] [facility] [address] [id number] [place] [address]- 9561 04 Aug, 2014 [facility] [place] [facility] [address] [id number] [place] [address]- 2575 04 Aug, 2014 [facility] [place] [facility] [address] [id number] [place] [address]- 2722 Aug, [facility] [place] [facility] [address] [id number] [place] [address]- 6845 Aug, [facility] [place] [facility] [address] [id number] [place] [address]- 3569 Aug, [facility] [place] [facility] [address] [id number] [place] [address]- 1324 Jul, [facility] [place] [facility] [address] [id number] [place] [address]- 9612 Jul, [facility] [place] [facility] [address] [id number] [place] [address]- 8209 10 Jul, 2014 [facility] [place] [facility] [address] [id number] [place] [address]- 0701 10 Jul, 2014 [facility] [place] [facility] [address] [id number] [place]16 Jul, [facility] [place] [facility] [address] [id number] [place] [address]- 9102 Jul, [facility] [place] [facility] [address] [id number] [place] [address]- 8923 Jun, [facility] [place] [facility] [address] [id number] [place] [address]- 9550 Jun, [facility] [place] [facility] [address] [id number] [place] [address]- 8966 Jun, [facility] [place] [facility] [address] [id number] [place] [address]- 4678 Jun, [facility] [place] [facility] [address] [id number] [place] [address]- 7322 Jun, [facility] [place] [facility] [address] [id number] [place] [address]- 3213 Jun, [facility] [place] [facility] [address] [id number] [place] [address]- 4189 Jun, [facility] [place] [facility] [address] [id number] [place] [address]- 5568 Jun, [facility] [place] [facility] [address] [id number] [place] [address]- 2142 16 May, 2014 [facility] [place] [facility] [address] [id number] [place] [address]- 8575 16 May, 2014 [facility] [place] [facility] [address] [id number] [place] 8085 15 May, 2014 [facility] [place] [facility] [address] [id number] [place] [address]- 3076 15 May, 2014 [facility] [place] [facility] [address] [id number] [place] [address]- 4743 08 May, 2014 [facility] [place] [facility] [address] [id number] [place] [address]- 5886 May, [facility] [place] [facility] [address] [id number] [place] [address]- 5280 May, [facility] [place] [facility] [address] [id number] [place] [address]- 6013 May, [facility] [place] [facility] [address] [id number] [place] [address]- 9799 Apr, [facility] [place] [facility] [address] [id number] [place] [address]- 7589 Apr, [facility] [place] [facility] [address] [id number] [place] [address]- 0928 Apr, [facility] [place] [facility] [address] [id number] [place] [address]- 6509 Apr, [facility] [place] [facility] [address] [id number] [place] [address]- 7759 Apr, [facility] [place] [facility] [address] [id number] [place] [address]- 6817 Apr, [facility] [place] [facility] [address] [id number] [place] [address]- 6602 Apr, [facility] [place] [facility] [address] [id number] [place] [address]- 5375 Apr, [facility] [place] [facility] [address] [id number] [place] [address]- 1174 Apr, [facility] [place] [facility] [address] [id number] [place] [address]- 5692 Apr, [facility] [place] [facility] [address] [id number] [place] [address]- 6273 Apr, [facility] [place] [facility] [address] [id number] [place] [address]- 6203 Apr, [facility] [place] [facility] [address] [id number] [place] [address]- 0832 Apr, [facility] [place] [facility] [address] [id number] [place] [address]- 0922 Mar, [facility] [place] [facility] [address] [id number] [place] [address]- 4964 Mar, [facility] [place] [facility] [address] [id number] [place] [address]- 1568 Mar, [facility] [place] [facility] [address] [id number] [place] [address]- 0549 Mar, [facility] [place] [facility] [address] [id number] [place] [address]- 7209 Jan, [facility] [place] [facility] [address] [id number] [place] [address]- 7598 Jan, [facility] [place] [facility] [address] [id number] [place] [address]- 2542 December, [facility] [place] [facility] [address] [id number] [place] [address]- 9055 December, [facility] [place] [facility] [address] [id number] [place] [address]- 7467 December, [facility] [place] [facility] [address] [id number] [place] [address]- 7985 December, [facility] [place] [facility] [address] [id number] [place] [address]- 2219 December, [facility] [place] [facility] [address] [id number] [place] [address]- 9798 December, [facility] [place] [facility] [address] [id number] [place] [address]- 5321 December, [facility] [place] [facility] [address] [id number] [place] [address]- 4060 December, [facility] [place] [facility] [address] [id number] [place] [address]- 0793 Dec, [facility] [place] [facility] [address] [id number] [place] [address]- 0253 Dec, [facility] [place] [facility] [address] [id number] [place] [address]- 0748 Dec, [facility] [place] [facility] [address] [id number] [place] [address]- 4832 Dec, [facility] [place] [facility] [address] [id number] [place] [address]- 6250 Oct, [facility] [place] [facility] [address] [id number] [place] [address]- 8611 Oct, [facility] [place] [facility] [address] [id number] [place] [address]- 7959 Oct, [facility] [place] [facility] [address] [id number] [place] [address]- 9818 Oct, [facility] [place] [facility] [address] [id number] [place] [address]- 5044 Oct, [facility] [place] [facility] [address] [id number] [place] [address]- 3180 Oct, [facility] [place] [facility] [address] [id number] [place] [address]- 0931 Oct, [facility] [place] [facility] [address] [id number] [place] [address]- 9733 Oct, [facility] [place] [facility] [address] [id number] [place] [address]- 0668 Oct, [facility] [place] [facility] [address] [id number] [place] [address]- 9350 Oct, [facility] [place] [facility] [address] [id number] [place] [address]- 3897 Oct, [facility] [place] [facility] [address] [id number] [place] [address]- 0669 12 Oct, 2013 [facility] [place] [facility] [address] [id number] [place] [address]- 3466 Oct, 2013 [facility] [place] [facility] [address] [id number] [place] [address]- 9146 10 Oct, 2013 [facility] [place] [facility] [address] [id number] [place] [address]- 8846 Oct, 2013 [facility] [place] [facility] [address] [id number] [place] [address]- 8343 Oct, 2013 [facility] [place] [facility] [address] [id number] [place] [address]- 4889 Oct, 2013 [facility] [place] [facility] [address] [id number] [place] [address]- 8195 Oct, [facility] [place] [facility] [address] [facility] [id number] [place] [address]- 3338 Oct, [facility] [place] [facility] [address] [id number] [place] [address]- 6247 07 Oct, 2013 [facility] [place] [facility] [address] [id number] [place] [address]- 5588 Oct, [facility] [place] [facility] [address] [facility] [id number] [place] [address]- 2491 Oct, [facility] [place] [facility] [address] [facility] [id number] [place] [address]- 2922 Sep, [facility] [place] [facility] [address] [id number] [place] [address]- 4653 Sep, [facility] [place] [facility] [address] [id number] [place] [address]- 9758 Sep, [facility] [place] [facility] [address] [id number] [place] [address]- 4586 Sep, [facility] [place] [facility] [address] [id number] [place] [address]- 4619 Aug, [facility] [address] [id number] [place] [address]- 9747 Aug, [facility] [place] [facility] [address] [id number] [place] [address]- 5946 Aug, [facility] [place] [facility] [address] [id number] [place] [address]- 8681 Aug, [facility] [place] [facility] [address] [id number] [place] [address]- 2838 Aug, [facility] [place] [facility] [address] [id number] [place] [address]- 3758 Aug, [facility] [place] [facility] [address] [id number] [place] [address]- 6986 Aug, [facility] [place] [facility] [address] [id number] [place] [address]- 0874 Aug, [facility] [place] [facility] [address] [id number] [place] [address]- 2294 Aug, [facility] [place] [facility] [address] [id number] [place] [address]- 4381 Jul, [facility] [place] [facility] [address] [id number] [place] [address] Jul, [facility] [place] [facility] [address] [id number] [place] [address] Jul, [facility] [place] [facility] [address] [id number] [address] Jul, [facility] [place] [facility] [address] [id number] [place] [address] Jul, [facility] [place] [facility] [address] [id number] [place] [address] Jul, [facility] [place] [facility] [address] [id number] [place] [address] Jul, [facility] [place] [facility] [address] [id number] [place] [address] Jul, [facility] [place] [facility] [address] [id number] [place] [address] Jun, [facility] [place] [facility] [address] [id number] [place] [address] Jun, [facility] [place] [facility] [address] [id number] [place] [address] Jun, [facility] [place] [facility] [address] [id number] [place] [address] Jun, [facility] [place] [facility] [address] [id number] [place] [address] Jun, [facility] [place] [facility] [address] [id number] [place] [address] Jun, [facility] [place] [facility] [address] [id number] [place] [address] Jun, [facility] [place] [facility] [address] [id number] [place] [address] Jun, [facility] [place] [facility] [address] [id number] [place] [address] 30 May, 2013 [facility] [place] [facility] [address] [id number] [place] [address]66 26 May, 2013 [facility] [place] [facility] [address] [id number] [place] [address] 23 May, 2012 [facility] [place] [facility] [address] [id number] [address] 19 May, 2012 [facility] [place] [facility] [address] [id number] [place] [address] 6690 12 May, 2013 [facility] [place] [facility] [address] [id number] [place] [address] 11 May, 2013 [facility] [place] [facility] [address] [id number] [place] [address] 13 Apr, 2013 [facility] [place] [facility] [address] [id number] [place] [address] Apr, [facility] [place] [facility] [address] [id number] [place] [address] Apr, [facility] [place] [facility] [address] [id number] [place] [address]32 Apr, [facility] [place] [facility] [address] [id number] [place] [address] Apr, [facility] [place] [facility] [address] [id number] [place] [address]- [address]267 Apr, [facility] [place] [facility] [address] [id number] [place] [address]- 8825 Apr, [facility] [place] [facility] [address] [id number] [place] [address] Mar, [facility] [place] [facility] [address] [id number] [place] [address] Mar, [facility] [place] [facility] [address] [id number] [place] [address] 1646 Mar, [facility] [place] [facility] [address] [id number] [place] [address] 8973 Mar, [facility] [place] [facility] [address] [id number] [place] [address]36 Mar, [facility] [place] [facility] [address] [id number] [place] [address] Mar, [facility] [place] [facility] [address] [id number] [place] [address] Mar, [facility] [place] [facility] [address] [id number] [place] [address] Jan, [facility] [place] [facility] [address] [id number] [place] [address] Jan, [facility] [place] [facility] [address] [id number] [place] [address] 14 Jan, 2013 [facility] [address] [id number] [place] [address]- [address] Jan, [facility] [place] [facility] [address] [id number] [place] [address]- 2010 Jan, [facility] [address] [id number] [place] [address]- [address]40 Jan, [facility] [place] [facility] [address] [id number] [place] [address] Jan, [facility] [address] [id number] [place] [address] 38[address] December, [facility] [address] [id number] [place] [address]- [address] December, [facility] [address] [id number] [place] [address]- 134[address] December, [facility] [place] [facility] [address] [id number] [place] [address]- 5736 December, [facility] [address] [id number] [place] [address]- 3599 30 Dec, 2012 [facility] [place] [facility] [address] [id number] [place] [address]57 Dec, [facility] [place] [facility] [address] [id number] [address] Dec, [facility] [place] [facility] [address] [id number] [place] [address] 29 Oct, 2012 [facility] [place] [facility] [address] [id number] [place] [address]- [address]28 Oct, [facility] [place] [facility] [address] [id number] [place] [address]- 3975 Oct, [facility] [place] [facility] [address] [id number] [place] [address]- 3949 Oct, [facility] [place] [facility] [address] [id number] [place] [address]- [address]39 20 Oct, 2012 [facility] [address] [id number] [place] [address]- 2416 20 Oct, 2012 [facility] [place] [facility] [address] [id number] [place] [address] 2546 18 Oct, 2012 [facility] [address] [id number] [place] [address]- 9716 Oct, [facility] [address] [id number] [place] [address] 2546 Oct, [facility] [address] [id number] [place] [address] 08 Oct, 2012 [facility] [address] [id number] [place] [address]- 5566 05 Oct, 2012 [facility] [address] [id number] [place] [address]- [address]255 Sep, [facility] [address] [id number] [place] [address]- 9283 Sep, [facility] [address] [id number] [place] [address]- [address]13 Sep, [facility] [address] [facility] [id number] [place] [address]- 96[address] Aug, [facility] [address] [id number] [place] [address]- 8306 Aug, [facility] [address] [id number] [place] [address]- 2546 Aug, [facility] [place] [facility] [address] [id number] [place] [address] Aug, [facility] [place] [facility] [address] [id number] [place] [address] Jul, [facility] [address] [id number] [place] [address] Jul, [facility] [place] [facility] [address] [id number] [place] [address] Jul, [facility] [place] [facility] [address] [id number] [place] [address] Jul, [facility] [place] [facility] [address] [id number] [place] [address] Jul, [facility] [place] [facility] [address] [id number] [place] [address] Jul, [facility] [place] [facility] [address] [id number] [place] [address] Jul, [facility] [place] [facility] [address] [id number] [place] [address] Jul, [facility] [place] [facility] [address] [id number] [place] [address] Jun, [facility] [place] [facility] [address] [id number] [place] [address] Jun, [facility] [place] [facility] [address] [id number] [place] [address] Jun, [facility] [place] [facility] [address] [facility] [id number] [place] [address] Jun, [facility] [place] [facility] [address] [id number] [place] [address] 79[address] Jun, [facility] [place] [facility] [address] [id number] [address] 26 May, 2012 [facility] [place] [facility] [address] [id number] [place] [address] 20 Sep2011 [facility] [place] [facility] [address] [id number] [place] [address]- [address]23 18 Sep2011 [facility] [place] [facility] [address] [id number] [place] [address]34 09 May, 2012 [facility] [place] [facility] [address] [id number] [place] [address] 8766 May, [facility] [place] [facility] [address] [id number] [place] [address] 9679 Apr, [facility] [place] [facility] [address] [id number] [place] [address] 9868 Apr, [facility] [place] [facility] [address] [id number] [place] [address] 67[address] Apr, [facility] [place] [facility] [address] [id number] [place] [address] Apr, [facility] [place] [facility] [address] [id number] [place] [address] 3435 Apr, [facility] [place] [facility] [address] [id number] [place] [address]704 Apr, [facility] [place] [facility] [address] [id number] [place] [address] 4[address] Apr, [facility] [place] [facility] [address] [id number] [place] [address] Mar, [facility] [place] [facility] [address] [id number] [place] [address] Mar, [facility] [place] [facility] [address] [id number] [place] [address] Mar, [facility] [place] [facility] [address] [id number] [place] [address] 1367 Mar, [facility] [place] [facility] [address] [id number] [place] [address] 49[address] Jan, [facility] [place] [facility] [address] [id number] [place] [address] 74[address] Jan, [facility] [place] [facility] [address] [id number] [place] [address] Jan, [facility] [place] [facility] [address] [id number] [place] [address] 2440 Jan, [facility] [place] [facility] [address] [id number] [place] [address] 7079 Jan, [facility] [place] [facility] [address] [id number] [place] [address]143 Jan, [facility] [place] [facility] [address] [id number] [place] [address] December, [facility] [place] [facility] [address] [id number] [place] [address] December, [facility] [place] [facility] [address] [id number] [place] [address] December, [facility] [place] [facility] [address] [id number] [place] [address]99 December, [facility] [place] [facility] [address] [id number] [place] [address]- [address] Dec, [facility] [place] [facility] [address] [id number] [place] [address]- [address]67 Dec, [facility] [place] [facility] [address] [id number] [place] [address]857 Oct, [facility] [place] [facility] [address] [id number] [place] [address] 6701 Oct, [facility] [place] [facility] [address] [id number] [place] [address] Oct, [facility] [place] [facility] [address] [id number] [place] [address]245 16 Nov, 2011 [facility] [place] [facility] [address] [id number] [place] [address] 3070 Oct, [facility] [place] [facility] [address] [id number] [place] [address]- 7926 06 Nov, 2011 [facility] [place] [facility] [address] [id number] [place] [address] 05 Nov, 2011 [facility] [place] [facility] [address] [id number] [place] [address]- 1283 Oct, [facility] [address] [id number] [place] [address] 9059 Oct, [facility] [place] [facility] [address] [id number] [place] [address]- 0186 Oct, [facility] [place] [facility] [address] [id number] [place] [address]- 4056 Oct, [facility] [place] [facility] [address] [id number] [place] [address] 3248 Sep, [facility] [place] [facility] [address] [id number] [place] [address] 4103 Sep, [facility] [place] [facility] [address] [id number] [place] [address]- 4526 Sep, [facility] [place] [facility] [address] [id number] [place] [address]- 8747 Sep, [facility] [place] [facility] [address] [id number] [place] [address]- 3255 Sep, [facility] [place] [facility] [address] [id number] [place] [address] 1969 Sep, [facility] [place] [facility] [address] [id number] [place] [address]- 2326 Sep, [facility] [place] [facility] [address] [id number] [address] 46[address] Sep, [facility] [place] [facility] [address] [id number] [place] [address]- 3961 Aug, [facility] [place] [facility] [address] [id number] [place] [address]- 3167 Aug, [facility] [place] [facility] [address] [id number] [place] [address]- [address] Aug, [facility] [place] [facility] [address] [id number] [place] [address]- 9315 Jul, [facility] [place] [facility] [address] [id number] [place] [address]- 5494 28 Jul, 2011 [facility] [address] [id number] [place] [address]- 6831 18 Jul, 2011 [facility] [place] [facility] [address] [id number] [place] [address]- 1488 17 Jul, 2011 [facility] [address] [id number] [place] [address]- 0020 08 Jul, 2011 [facility] [place] [facility] [address] [id number] [place] [address]- 0500 02 Jul, 2011 [facility] [place] [facility] [address] [id number] [place] [address], [place] [address]- 4767 31 Jun, 2011 [facility] [place] [facility] [address] [id number] [place] [address]- 9878 Jun, [facility] [place] [facility] [address] [id number] [place] [address]- 6389 Mar, [facility] [address] [id number] [place] [address]- 9248 14 Dec, 2010 [facility] [place] [facility] [address] [id number] [place] [address]- 8326 14 Oct, 2010 [facility] [address] [id number] [place] [address]- 7[address] 06 Aug, 2010 [facility] [place] [facility] [address] [id number] [place] [address]- 1307 30 Jul, 2010 [facility] [place] [facility] [address] [id number] [place] [address]- 7908 Jul, [facility] [place] [facility] [address] [id number] [place] [address]- 0989 10 Jul, 2010 [facility] [place] [facility] [address] [id number] [place] [address]- 9416 Jul, [facility] [place] [facility] [address] [id number] [place] [address]- 8117 08 Jul, 2010 [facility] [address] [id number] [address] Aug, [facility] [address] [facility] [id number] [place] [address] Aug, [facility] [address] [facility] [id number] [place] [address]90 14 Aug, 2009 [facility] [address] [facility] [id number] [place] [address]- 3024 Aug, [facility] [address] [facility] [id number] [place] [address] Jul, [facility] [address] [facility] [id number] [place] [address]44 Jul, [facility] [id number] [address] Jul, [facility] [id number] [address]- 59[address] Jul, [facility] [id number] [address] 29[address] Jun, [facility] [address] [id number] [address] Jun, IMMUNIZATIONS No Known Immunizations SOCIAL HISTORY Never Assessed REASON FOR VISIT Dental Assessment PLAN OF CARE Activity Details Follow Up 2 Weeks Reason:re-evaluate VITAL SIGNS Blood pressure systolic 141 mmHg 2017-09-04 Blood pressure diastolic 82 mmHg 2017-09-04 MEDICATIONS Medication Instructions Dosage Frequency Start Date End Date Duration Status Loratadine 10 mg Orally Once a day as needed for allergies 1 tablet Apr, Active Folic Acid 1 MG Orally Once a day 1 tablet 24h December, December, 90 days Active Fish Oil 1000 MG Orally 3 times a day 1 capsule 8h Active Lidocaine 5 % Externally 4 times a day Apply 2 grams to affected area as needed 6h Apr, 90 days Active Pantoprazole Sodium 40 MG Orally Once a day 1 tablet 24h 90 Active Baclofen 20 mg Orally 2 times a day 1 tablet with food or milk 12h Jul, Sep, 30 day(s) Active Pravastatin Sodium 80 MG TAKE ONE TABLET BY MOUTH AT BEDTIME (AVOID GRAPEFRUIT JUICE AND PRODUCTS WITH GRAPEFRUIT) 90 Active Requip 1 MG Orally 3 times a day 1 tablet 8h 90 days Active Toprol XL 100 MG Orally Once a day 1 tablet at bedtime 24h 90 Active Levothyroxine Sodium 100 MCG Orally Once a day 1 tablet 24h 30 Active Effexor XR 150 MG Orally Once a day 2 capsule with food 24h Active Doxepin HCl 25 MG Orally Once a day 1-2 capsules at bedtime 24h 30 days Active Magic Mouthwash 5ml 4 times a day Swish and spit qid 6h Sep, Sep, 14 days Active RESULTS No Results PROCEDURES Procedure Date Ordered Result Body Site LTD ORAL EVALUATION - PROBLEM FOCUS Sep 04, 2017 INSTRUCTIONS MEDICATIONS ADMINISTERED No [...]
--- OUTSIDE RECORDS SUMMARY | 2018-03-17 11:09 | XMS REPORT ---
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 Active 42769839 Problem Attention-deficit hyperactivity disorder, predominantly inattentive type F90.0 Active 23037691 Problem Obstructive sleep apnea G47.33 Active 23395266 Problem Primary insomnia F51.01 Active 1240226 Problem Neuralgia M79.2 Active 69931387 Problem Cannabis use disorder, mild, abuse F12.10 Active 77994334 Problem Folic acid deficiency E53.8 Active 294462143 Problem Restless legs G25.81 Active 99790579 Problem Major depressive disorder, recurrent, mild F33.0 Active 17830191 Problem Generalized anxiety disorder F41.1 Active 97821416 Problem Major depressive disorder, recurrent episode, moderate F33.1 Active 828176253 Problem Hypertension I10 Active 45704482 Problem Hyperlipidemia E78.5 Active 68166361 Problem Primary osteoarthritis of both knees M17.0 Active 180342596 Problem Chronic hepatitis K73.9 Active 03513687 Problem Low back pain M54.5 Active 473162362 Problem Chronic viral hepatitis B without delta-agent B18.1 Active 561265233 Problem Insomnia G47.00 Active 316996423 Problem Hypothyroid E03.9 Active 68792057 Problem Depression, major, recurrent, mild F33.0 Active 138721191 Problem Obesity due to excess calories, unspecified obesity severity E66.09 Active 289440216 ALLERGIES No Information ENCOUNTERS Encounter Location Date Diagnosis [facility] [id number] [address] Dec, Bone pain M89.8X9 [facility] [id number], [place] [address] Dec, [facility] [address] [address] Oct, [facility] [address] [address] Oct, Syncope, unspecified syncope type R55 ; Primary insomnia F51.01 ; Dry mouth R68.2 and Cannabis use disorder, mild, abuse F12.10 [facility] [address] [address] Oct, [facility] [address] [address]- [address] Sep, [facility] [address] [address]- [address] Sep, [facility] [address] [address]- [address]88 Sep, [facility] [address] [id number] Sep, Dental examination Z01.20 [facility] [address] [address]- [address] Sep, Dental examination Z01.20 [facility] [address] [address]- 36[address] Sep, Sinus congestion R09.81 ; Mouth sores K13.79 ; Low back pain M54.5 and Mouth swelling R22.0 [facility] [id number] [place] [address] 05802- 0221 Aug, Low back pain M54.5 [facility] [address] [address] Aug, Low back pain M54.5 [facility] [address] [address]- 4031 Jul, [facility] [address] [address]- 2752 Jul, 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 ; Encounter for immunization Z23 ; Hypothyroid E03.9 ; Decreased renal function N28.9 and Muscle cramps R25.2 [facility] [address] [address]- 5[address] Jul, [facility] [address] [address]- 1552 Jul, [facility] [address] [address]- 3[address] Jul, [place] [address] [address]- 48[address] Jul, Major depressive disorder, recurrent, mild F33.0 [place] [address] [address]- 7[address] 08 Jul, 2017 Acquired cyst of kidney N28.1 ; Acidosis E87.2 and Hyperkalemia E87.5 [place] [address] [address]- 2409 Jul, Major depressive disorder, recurrent, mild F33.0 ; Attention -deficit hyperactivity disorder, predominantly inattentive type F90.0 and Generalized anxiety disorder F41.1 [place] [address] [address]- 2590 Jul, Low back pain M54.5 [facility] [address] [address]- [address] Jun, Cough R05 ; Low back pain M54.5 and Pre-syncope R55 [facility] [address] [address]- 6[address] Jun, Low back pain M54.5 [facility] [address] [id number] Jun, Dental caries K02.9 [facility] [address] [address]- [address] Jun, [place] [id number] [place] [address] 01854- 8321 Jun, Major depressive disorder, recurrent, mild F33.0 ; Attention -deficit hyperactivity disorder, predominantly inattentive type F90.0 and Generalized anxiety disorder F41.1 [place] [id number] [place] [address] 29161- 6400 May, Vertigo R42 ; Confusion R41.0 ; Weakness R53.1 and Vision changes H53.9 [place] [id number] [place] [address] 53355- 4657 May, [place] [address] 9[address]- 7739 May, [place] [id number] [place] [address] 18114- 6109 May, Low back pain M54.5 [place] [address] 7[address]95- 5611 05 May, 2017 Major depressive disorder, recurrent, mild F33.0 ; Attention -deficit hyperactivity disorder, predominantly inattentive type F90.0 and Generalized anxiety disorder F41.1 [place] [id number] [place] [address] 34289- 8098 May, [place] [id number] [place] [address] 61692- 8844 May, Acute worsening of stage 3 chronic kidney disease N18.3 [place] [id number] [place] [address] 90738- 4854 Apr, [place] [id number] [place] [address] 88992- 7511 Apr, Acute allergic rhinitis due to pollen, unspecified seasonality J30.1 ; Restless legs G25.81 and Low back pain M54.5 [place] [id number] [place] [address] 16022- 5455 Apr, Primary osteoarthritis of both knees M17.0 [facility] [address] [place] [address] 74356- 8549 Apr, Generalized anxiety disorder F41.1 [facility] [id number] [place], [place] [address] Apr, Major depressive disorder, recurrent, mild F33.0 ; Attention -deficit hyperactivity disorder, predominantly inattentive type F90.0 and Generalized anxiety disorder F41.1 [facility] [id number] [place] [address] 85693- 3153 Apr, [facility] [id number] [place] [address] 51354- 6585 Mar, Major depressive disorder, recurrent episode, moderate F33.1 ; Generalized anxiety disorder F41.1 and ADHD, predominantly inattentive type F90.0 [facility] [id number] [place] [address] 31209 -8554 Mar, Abscess L02.91 [facility] [id number] [place] [address] 66283- 1528 Mar, 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 [facility] [id number] [place] [address] 08128- 3219 Mar, Decreased renal function N28.9 [facility] [id number] [place] [address] [id number] Mar, Dental examination Z01.20 [facility] [id number] [place] [address] 57415- 3200 Mar, 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 [facility] [id number] [place] [address] 98953- 9495 Mar, 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 [facility] [id number] [place] [address] [id number] Mar, Dental examination Z01.20 and Dental caries K02.9 [facility] [id number] [place] [address] 97892- 2241 Mar, Chronic viral hepatitis B without delta-agent B18.1 ; Folic acid deficiency E53.8 ; 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 and Decreased renal function N28.9 [place] [id number] [place] [address] 55619- 1900 Mar, Major depressive disorder, recurrent, mild F33.0 [place] [id number] [place] [address] 86395- 8060 Mar, [place] [id number] [place] [address] 67899- 2365 Mar, Chronic hepatitis K73.9 ; 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 ; Localized edema R60.0 ; Illicit drug use F19.90 ; Vision changes H53.9 and Obesity due to excess calories, unspecified obesity severity E66.09 [place] [id number] [place] [address] 40368- 8988 Jan, Major depressive disorder, recurrent, mild F33.0 [place] [id number] [place] [address] 15947- 8951 Jan, Chronic viral hepatitis B without delta-agent B18.1 [place] [id number] [place] [address] 12403- 6643 Jan, [place] [id number] [place] [address] 05662- 3737 Jan, Weight gain R63.5 ; Hypothyroid E03.9 ; 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 ; Decreased renal function N28.9 and Chronic viral hepatitis B without delta-agent B18.1 [place] [address] [place] [address] 19820- 4045 December, Major depressive disorder, recurrent, mild F33.0 and Generalized anxiety disorder F41.1 [place] [address] [place] [address] 64500- 5455 December, Obesity due to excess calories, unspecified obesity severity E66.09 and Folic acid deficiency E53.8 [place] [id number] [place] [address] 12425- 5188 December, Folic acid deficiency E53.8 [facility] [address], [place] [address]- 6662 December, Folic acid deficiency E53.8 [facility] [address], [place] [address]- 6287 December, Obesity due to excess calories, unspecified obesity severity E66.09 [facility] [address] [place] [address] 84690- 8987 December, [facility] [id number] [place] [address] 91500- 0984 December, Folic acid deficiency E53.8 [facility] [id number] [place] [address] [id number] December, Encounter for other administrative examinations Z02.89 [facility] [id number] [place] [address] 95549- 8463 Dec, [facility] [id number] [place] [address] [id number] Dec, Dental caries K02.9 [place] [id number] [place] [address] 75146- 8506 Oct, Bone pain M89.8X9 [place] [id number] [place] [address] 19716- 0462 Oct, Hypothyroid E03.9 [facility] [id number] [place] [address] 38629- 1858 24 Oct, 2016 Hypothyroid E03.9 [facility] [id number] [place] [address] 51542- 9894 13 Oct, 2016 Breast cancer screening Z12.39 [facility] [address] [place] [address] [id number] 08 Oct, 2016 Dental examination Z01.20 [facility] [id number] [place] [address] 99571- 3832 Oct, [address] [place] [address] 02294- 0925 Oct, Major depressive disorder, recurrent, mild F33.0 and Generalized anxiety disorder F41.1 [place] [place] [address] [place] [address] 28008- 3659 Oct, [place] [id number] [place] [address] 29143- 3660 Oct, Hypothyroid E03.9 [place] [id number] [place] [address] 73251- 1826 Sep, Hypothyroid E03.9 ; Chronic viral hepatitis B without delta- agent B18.1 and Folic acid deficiency E53.8 [place] [id number] [place] [address] 45390- 8481 Sep, Hypothyroidism, unspecified type E03.9 ; Elevated parathyroid hormone E34.9 and Chronic viral hepatitis B without delta-agent B18.1 [place] [id number] [place] [address] 08668- 1627 Sep, [place] [id number] [place] [address] 37903- 6579 Sep, Elevated parathyroid hormone E34.9 [place] [id number] [place] [address] 21353- 3148 Sep, [place] [id number] [place] [address] 33047- 3084 Sep, Chronic hepatitis K73.9 ; Bone pain M89.8X9 and Abnormal complete blood count R79.89 [place] [id number] [place] [address] 45916- 9092 Aug, Major depressive disorder, recurrent, mild F33.0 [address] [place] [address] [place] [address] 46041- 4154 Aug, Bone pain M89.8X9 [place] [id number] [place] [address] 43934- 5077 Aug, [facility] [address] 77021- 8936 Jul, Chronic viral hepatitis B without delta-agent B18.1 [facility] [address] 90504- 0301 Jul, Hypothyroidism, unspecified type E03.9 [facility] [address] 27292- 9212 Jul, [facility] [address] 92347- 7858 Jul, Chronic hepatitis K73.9 and Hypothyroid E03.9 [place] [address] 85139- 7064 Jul, Low back pain M54.5 [place] [address] 87825- 6640 Jun, Depression, major, recurrent, mild F33.0 and ADD (attention deficit disorder) F90.0 [place] [address] 96574- 4406 Jun, [facility] [address] 09127- 0271 Jun, Low back pain M54.5 [place] [address] 51582- 4446 Jun, Encounter for immunization Z23 ; Major depressive disorder, recurrent, mild F33.0 and Attention-deficit hyperactivity disorder, predominantly inattentive type F90.0 [place] [address] 37677- 8669 Jun, [facility] [address] 30567- 9358 Jun, Low back pain M54.5 [facility] [address] [place] [address]- 7549 29 May, 2015 [facility] [id number] [place] [address] 67319- 8700 29 May, 2015 [facility] [id number] [place] [address] 99875- 9740 29 May, 2015 Essential (primary) hypertension I10 [facility] [address] 98913- 8011 19 May, 2015 Low back pain M54.5 [facility] [id number] [place] [address] 31824- 6480 12 May, 2015 Low back pain M54.5 ; Chronic hepatitis K73.9 and Hypothyroid E03.9 [facility] [id number] [place] [address] 51310- 6038 09 May, 2016 Hypothyroidism, unspecified type E03.9 [facility] [id number] [place] [address] 36996- 7802 08 May, 2015 Low back pain M54.5 [facility] [id number] [place] [address] 91879- 6351 07 May, 2015 [facility] [id number] [place] [address] 62224- 6904 06 May, 2015 [facility] [id number] [place] [address] 31123- 4288 May, 2016 Major depressive disorder, recurrent, moderate F33.1 ; Generalized anxiety disorder F41.1 ; Insomnia G47.00 and ADD (attention deficit disorder) F90.0 [facility] [id number] [place] [address] 91007- 5338 Apr, Low back pain M54.5 [facility] [id number] [place] [address] 31672- 8626 Apr, [facility] [id number] [place] [address] 20401- 4511 Apr, Low back pain M54.5 [facility] [id number] [place] [address] 47457- 1232 Apr, Low back pain M54.5 ; Tooth pain K08.8 and Seasonal allergic rhinitis due to pollen J30.1 [facility] [id number] [place] [address] 40940- 4679 Apr, Low back pain M54.5 [place] [address] 34070- 9703 Apr, [facility] Pap smear of vagina R87.622 [place] [address] 65843- 0765 Apr, Low back pain M54.5 [place] [id number] [place] [address] 22597- 3310 Mar, [place] [address] 56817- 8915 Mar, Low back pain M54.5 [place] [address] 45771- 4752 Mar, Encounter for Papanicolaou smear for cervical cancer screening Z12.4 ; Encounter for routine gynecological examination Z01.419 and Breast cancer screening Z12.39 [place] [id number] [place] [address] 09348- 9696 18 Mar, 2016 Hypothyroidism, unspecified type E03.9 [place] [id number] [place] [address] 64699- 1647 14 Mar, 2016 Low back pain M54.5 ; Other chronic pain G89.29 ; Hypothyroid E03.9 and Hypothyroidism, unspecified type E03.9 [place] [address] 55384- 7040 12 Mar, 2016 Major depressive disorder, recurrent, moderate F33.1 and Attention-deficit hyperactivity disorder, predominantly inattentive type F90.0 [facility] [id number] [place] [address] 50268 -6945 Mar, Bronchitis J40 [facility] [address] [place] [address] 03613- 9368 Jan, [facility] [id number] [place] [address] 15768- 6200 Jan, [facility] [id number] [place] [address] 90946- 1969 Jan, Insomnia G47.00 [facility] [id number] [place] [address] 73638- 3907 December, [facility] [id number] [place] [address] 14596- 3109 December, Major depressive disorder in partial remission F32.4 and Attention-deficit hyperactivity disorder, unspecified type F90.9 [place] [id number] [place] [address] 75953- 9988 December, [facility] [id number] [place] [address] 23652- 7094 December, [facility] [id number] [place] [address] 66499- 0540 Dec, [facility] [id number] [place] [address] 62697- 0602 Dec, Major depressive disorder, recurrent episode, moderate 296.32 and Attention deficit disorder of childhood without mention of hyperactivity 314.00 [facility] [address] [place] [address] 74487- 2867 Dec, Major depressive disorder, recurrent episode, mild 296.31 ; ADD (attention deficit disorder) F90.0 and Hyperlipidemia E78.5 [facility] [address] [place] [address] 17345- 8342 Dec, Insomnia G47.00 [facility] [address] [place] [address] 32292- 6207 Dec, Attention-deficit hyperactivity disorder, predominantly inattentive type F90.0 [facility] [address], [place] [address]- 4674 Oct, Restless legs syndrome G25.81 [facility] [id number] [place] [address] 44109- 8195 Oct, Hypothyroidism, unspecified type E03.9 [facility] [id number] [place] [address] 14773- 2692 Oct, [facility] [id number] [place] [address] 49795- 2174 Oct, [facility] [id number] [place] [address] 29230- 5412 15 Nov, 2015 Hypothyroid E03.9 and Chronic hepatitis K73.9 [facility] [id number] [place] [address] 24302- 4472 Oct, [facility] [id number] [place] [address] 99101- 2886 08 Nov, 2015 Restless legs syndrome G25.81 ; Chronic hepatitis K73.9 ; Hypertension I10 ; Hypothyroid E03.9 and Breast cancer screening Z12.39 [facility] [id number] [place] [address] 66279- 7980 Oct, [facility] [id number] [place] [address] 72089- 4586 Oct, [facility] [id number] [place] [address] 01559- 3246 Oct, [facility] [address] [place] [address] 66873- 7814 Oct, [facility] [id number] [place] [address] 99133- 2806 Oct, [facility] [address] [place] [address] 79063- 7605 Oct, [facility] [id number] [address]- 0064 05 Oct, 2015 [facility] [id number] [place] [address] 38540- 8303 Sep, [facility] [id number] [place] [address] 64390- 5096 Sep, Attention-deficit hyperactivity disorder, predominantly inattentive type F90.0 and Major depressive disorder in partial remission F32.4 [facility] [id number] [place] [address] 20301- 7587 Sep, [facility] [id number] [place] [address] 65262- 9283 Aug, [facility] [id number] [place] [address] 92635- 6391 Aug, [facility] [id number] [place] [address] 03861- 9594 Aug, Major depressive disorder, recurrent, mild F33.0 ; Attention -deficit hyperactivity disorder, unspecified type F90.9 and Generalized anxiety disorder F41.1 [facility] [id number] [place] [address] 02436- 3789 08 Aug, 2015 Chronic hepatitis K73.9 ; Primary osteoarthritis of both knees M17.0 and Neuralgia M79.2 [facility] [address] [address]- 5706 Jul, [facility] [id number] [place] [phone]- [phone] Jul, [facility] [id number] [address] Jul, [facility] [id number] [place] [phone] Jul, [facility] [id number] [place] [address] [phone] Jun, [facility] [id number] [place] [address] [phone] Jun, Bronchitis J40 and Encounter for immunization Z23 [facility] [id number] [place] [address] [phone] 30 May, 2015 [facility] [id number] [place] [address] [phone] May, [facility] [id number] [place] [address] [phone]- [phone] May, [facility] [id number] [place], [place] [address] 68157- 7329 May, Hypokalemia 276.8 [facility] [id number] [place] [address] 46669- 0085 08 May, 2015 Major depressive disorder, recurrent episode, mild 296.31 ; Attention deficit disorder of childhood without mention of hyperactivity 314.00 and Generalized anxiety disorder 300.02 [facility] [id number] [place] [address] 92163- 3956 May, Hypertension 401.9 and Hypokalemia 276.8 [facility] [id number] [place] [address] 62627- 0822 May, [facility] [id number] [place] [address] 75572- 4100 Apr, [facility] [id number] [place] [address] 76719- 1142 Apr, [facility] [id number] [place] [address] 60528- 8200 Apr, [facility] [id number] [place] [address] 29771- 8991 Apr, [facility] [id number] [place] [address] 47133- 2772 Mar, [facility] [id number] [place] [address] 15174- 1236 Mar, [facility] [id number] [address] 2612 Mar, [facility] [id number] [place] [address] 39792- 7279 Mar, [facility] [id number] [place] [address] [id number]- 7250 Mar, Arthritis of both knees 716.96 ; Hepatitis B 070.30 ; Hypertension 401.9 ; Carpal tunnel syndrome 354.0 and Cubital tunnel syndrome 354.2 [facility] [id number] [place] [address] 45903- 0009 Mar, [facility] [id number] [place] [address] 35601- 6377 Mar, [facility] [id number] [place] [address] 91322- 7343 Mar, 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, chronic, without mention of hepatitis delta 070.32 ; Chronic hepatitis C without mention of hepatic coma 070.54 and Major depressive disorder, recurrent episode, moderate 296.32 [id number] [place] [address] 49701- 9214 Jan, [facility] [id number] [place] [address] 71889- 9372 Jan, Major depressive disorder, recurrent episode, mild 296.31 and Attention deficit disorder of childhood without mention of hyperactivity 314.00 [facility] [id number] [address]- 3306 Jan, [facility] [id number] [address]- 7967 Jan, [facility] [id number] [place] [address] 09761- 6582 December, Attention deficit disorder of childhood without mention of hyperactivity 314.00 ; Major depressive disorder, recurrent episode, mild 296.31 and Generalized anxiety disorder 300.02 [facility] [id number] [place] [address] 91816- 2546 08 Dec, 2014 [facility] [place] [facility] [address] [id number] [place] [address]- 8406 14 Dec, 2014 [facility] [place] [facility] [address] [id number] [place] [address]- 5628 13 Dec, 2014 [facility] [place] [facility] [address] [id number] [place] [address]- 2731 19 Oct, 2014 [facility] [place] [facility] [address] [id number] [place] [address]- 4197 19 Oct, 2014 [facility] [place] [facility] [address] [id number] [place] [address]- 9554 18 Oct, 2014 [facility] [place] [facility] [address] [id number] [place] [address]- 0062 18 Oct, 2014 [facility] [place] [facility] [address] [id number] [place] [address]- 5019 18 Oct, 2014 [facility] [place] [facility] [address] [id number] [place] [address]- 9092 18 Oct, 2014 [facility] [place] [facility] [address] [id number] [place] [address]- 4087 16 Oct, 2014 [facility] [place] [facility] [address] [id number] [place] [address]- 9851 13 Oct, 2014 [facility] [place] [facility] [address] [id number] [place] [address]- 0766 13 Oct, 2014 [facility] [place] [facility] [address] [id number] [place] [address]- 3264 12 Oct, 2014 [facility] [place] [facility] [address] [id number] [place] [address]- 4605 12 Oct, 2014 [facility] [place] [facility] [address] [id number] [place] [address]- 2844 10 Oct, 2014 [facility] [place] [facility] [address] [id number] [place] [address]- 5199 10 Oct, 2014 [facility] [place] [facility] [address] [id number] [place] [address]- 8915 Oct, 2014 [facility] [place] [facility] [address] [id number] [place] [address]- 1583 Oct, 2014 [facility] [place] [facility] [address] [id number] [place] [address]- 4386 Oct, 2014 [facility] [place] [facility] [address] [id number] [place] [address]- 5792 Oct, 2014 [facility] [place] [facility] [address] [id number] [place] [address]- 1720 25 Oct, 2014 [facility] [place] [facility] [address] [id number] [place] [address]- 1352 Oct, 2014 [facility] [place] [facility] [address] [facility] [facility] [id number] [place] [address]- 5252 18 Oct, 2014 [facility] [place] [facility] [address] [facility] [address] [facility] [id number] [place] [address]- 8155 17 Oct, 2014 [facility] [place] [facility] [address] [address] [facility] [id number] [place] [address]- 0075 17 Oct, 2014 [facility] [place] [facility] [address] [facility] [id number] [place] [address]- 7997 Oct, 2014 [facility] [place] [facility] [address] [facility] [id number] [place] [address]- 6341 11 Oct, 2014 [facility] [place] [facility] [address] [facility] [id number] [place] [address]- 2540 Oct, 2014 [facility] [place] [facility] [address] [address] [facility] [id number] [place] [address]- 2540 Oct, 2014 [facility] [place] [facility] [address] [id number] [place] [address]- 1802 10 Oct, 2014 [facility] [place] [facility] [address] [facility] [id number] [place] [address]- 1583 10 Oct, 2014 [facility] [place] [facility] [address] [address] [facility] [id number] [place] [address]- 5187 Sep, [facility] [place] [facility] [address] [id number] [place] [address]- 2405 Sep, [facility] [place] [facility] [address] [id number] [place] [address]- 6017 Sep, [facility] [place] [facility] [address] [id number] [place] [address]- 5932 Sep, [facility] [place] [facility] [address] [id number] [place] [address]- 8942 Sep, [facility] [place] [facility] [address] [id number] [place] [address]- 1227 Sep, [facility] [place] [facility] [address] [id number] [place] [address]- 8350 Sep, [facility] [place] [facility] [address] [id number] [place] [address]- 4578 Sep, [facility] [place] [facility] [address] [id number] [place] [address]- 1919 Sep, [facility] [place] [facility] [address] [id number] [place] [address]- 6700 Sep, [facility] [place] [facility] [address] [id number] [place] [address]- 2695 Sep, [facility] [place] [facility] [address] [id number] [place] [address]- 9800 Sep, [facility] [place] [facility] [address] [id number] [address]- 7918 Sep, [facility] [place] [facility] [address] [id number] [place] [address]- 9932 Sep, [facility] [place] [facility] [address] [id number] [place] [address]- 9950 Sep, [facility] [place] [facility] [address] [id number], [place] [address]- 9682 Sep, [facility] [place] [facility] [address] [id number] [place] [address]- 7414 Aug, [facility] [place] [facility] [address] [id number] [place] [address]- 2586 Aug, [facility] [place] [facility] [address] [id number] [place] [address]- 1506 Aug, [facility] [place] [facility] [address] [id number] [place] [address]- 0766 Aug, [facility] [place] [facility] [address] [id number] [place] [address]- 6628 Aug, [facility] [place] [facility] [address] [id number] [place] [address]- 2476 Aug, [facility] [place] [facility] [address] [id number] [place] [address]- 4477 Aug, [facility] [place] [facility] [address] [id number] [place] [address]- 6012 Aug, [facility] [place] [facility] [address] [id number] [place] [address]- 2405 19 Aug, 2014 [facility] [place] [facility] [address] [id number] [place] [address]- 9604 18 Aug, 2014 [facility] [place] [facility] [address] [id number] [place] [address]- 4024 18 Aug, 2014 [facility] [place] [facility] [address] [id number] [place] [address]- 2419 16 Aug, 2014 [facility] [place] [facility] [address] [id number] [place] [address]- 7306 16 Aug, 2014 [facility] [place] [facility] [address] [id number] [place] [address]- 4306 15 Aug, 2014 [facility] [place] [facility] [address] [id number] [place]16 15 Aug, 2014 [facility] [place] [facility] [address] [id number] [place] [address]- 2987 Aug, [facility] [place] [facility] [address] [id number] [place] [address]- 9086 Aug, [facility] [place] [facility] [address] [id number] [place] [address]- 9227 Aug, [facility] [place] [facility] [address] [id number] [place] [address]- 2174 Aug, [facility] [place] [facility] [address] [id number] [place] [address]- 9912 Aug, [facility] [place] [facility] [address] [id number] [place] [address]- 5981 Aug, [facility] [place] [facility] [address] [id number] [place] [address]- 2481 Aug, [facility] [place] [facility] [address] [id number] [place] [address]- 8508 Aug, [facility] [place] [facility] [address] [id number] [place] [address]- 4318 Aug, [facility] [place] [facility] [address] [id number] [place] [address]- 3130 Aug, [facility] [place] [facility] [address] [id number] [place] [address]- 5444 Jul, [facility] [place] [facility] [address] [id number], [place] [address]- 8002 Jul, [facility] [place] [facility] [address] [id number], [place] [address]- 2725 Jul, [facility] [place] [facility] [address] [id number] [place] [address]- 6749 Jul, [facility] [place] [facility] [address] [id number], [place] [address]- 9959 Jul, [facility] [place] [facility] [address] [id number], [place] [address]- 4476 Jul, [facility] [place] [facility] [address] [id number] [place] [address]- 1845 Jun, [facility] [place] [facility] [address] [id number] [place] [address]- 3785 Jun, [facility] [place] [facility] [address] [id number] [place] [address]- 0846 Jun, [facility] [place] [facility] [address] [id number] [place] [address]- 9704 Jun, [facility] [place] [facility] [address] [id number] [place] [address]- 4435 Jun, [facility] [place] [facility] [address] [id number] [place] [address]- 5669 Jun, [facility] [place] [facility] [address] [id number] [place] [address]- 1188 Jun, [facility] [place] [facility] [address] [id number] [place] [address]- 7178 Jun, [facility] [place] [facility] [address] [id number] [place] [address]- 9242 16 Sep, 2013 [facility] [place] [facility] [address] [id number] [place] [address]- 2542 16 Sep, 2013 [facility] [place] [facility] [address] [address] [facility] [id number] [place] [address]- 3964 15 Sep, 2013 [facility] [place] [facility] [address] [id number] [place] [address]- 2544 15 Sep, 2013 [facility] [place] [facility] [address] [id number] [place] [address]- 2543 08 Sep, 2013 [facility] [place] [facility] [address] [id number] [place] [address]- 254 08 Sep, 2013 [facility] [place] [facility] [address] [id number] [place] [address]- 2545 08 Sep, 2013 [facility] [place] [facility] [address] [id number] [place] [address]- 2540 May, [facility] [place] [facility] [address] [id number] [place] [address]- 8489 Apr, [facility] [place] [facility] [address] [id number] [place] [address]- 9987 Apr, [facility] [place] [facility] [address] [id number] [place] [address]- 5623 Apr, [facility] [place] [facility] [address] [id number] [place] [address]- 1738 Apr, [facility] [place] [facility] [address] [id number] [place] [address]- 4047 Apr, [facility] [place] [facility] [address] [id number] [place] [address]- 5860 Apr, [facility] [place] [facility] [address] [id number] [place] [address]- 9416 Apr, [facility] [place] [facility] [address] [id number] [place] [address]- 5018 Apr, [facility] [place] [facility] [address] [id number] [place] [address]- 5630 Apr, [facility] [place] [facility] [address] [id number] [place] [address]- 5802 Apr, [facility] [place] [facility] [address] [id number] [place] [address]- 3440 Apr, [facility] [place] [facility] [address] [id number] [place] [address]- 1882 Apr, [facility] [place] [facility] [address] [id number] [place] [address]- 2074 Apr, [facility] [place] [facility] [address] [id number] [place] [address]- 6486 Mar, [facility] [place] [facility] [address] [id number] [place] [address]- 9227 Mar, [facility] [place] [facility] [address] [id number] [place] [address]- 6038 Mar, [facility] [place] [facility] [address] [id number] [place] [address]- 3500 Mar, [facility] [place] [facility] [address] [id number] [place] [address]- 2333 Jan, [facility] [place] [facility] [address] [id number] [place] [address]- 5098 Jan, [facility] [place] [facility] [address] [id number] [place] [address]- 4727 December, [facility] [place] [facility] [address] [id number] [place] [address]- 3905 December, [facility] [place] [facility] [address] [id number] [place] [address]- 9718 December, [facility] [place] [facility] [address] [id number] [place] [address]- 8348 December, [facility] [place] [facility] [address] [id number] [place] [address]- 0869 December, [facility] [place] [facility] [address] [id number] [place] [address]- 6656 December, [facility] [place] [facility] [address] [id number] [place] [address]- 1802 December, [facility] [place] [facility] [address] [id number] [place] [address]- 4967 December, [facility] [place] [facility] [address] [id number] [place] [address]- 5237 Dec, [facility] [place] [facility] [address] [id number] [place] [address]- 7357 Dec, [facility] [place] [facility] [address] [id number] [place] [address]- 2023 Dec, [facility] [place] [facility] [address] [id number] [place] [address]- 5615 Dec, [facility] [place] [facility] [address] [id number] [place] [address]- 3271 Oct, [facility] [place] [facility] [address] [id number] [place] [address]- 3784 Oct, [facility] [place] [facility] [address] [id number] [place] [address]- 1064 Oct, [facility] [place] [facility] [address] [id number] [place] [address]- 9285 Oct, [facility] [place] [facility] [address] [id number] [place] [address]- 8154 Oct, [facility] [place] [facility] [address] [id number] [place] [address]- 1365 Oct, [facility] [place] [facility] [address] [facility] [address] [facility] [id number] [place] [address]- 0147 Oct, [facility] [place] [facility] [address] [id number] [place] [address]- 7577 Oct, [facility] [place] [facility] [address] [id number] [place] [address]- 1500 Oct, [facility] [place] [facility] [address] [address] [facility] [id number] [place] [address]- 9610 Oct, [facility] [place] [facility] [address] [address] [facility] [id number] [place] [address]- 8034 Oct, [facility] [place] [facility] [address] [id number] [place] [address]- 8290 Oct, [facility] [place] [facility] [address] [id number] [place] [address]- 0986 Oct, [facility] [place] [facility] [address] [id number] [place] [address]- 8187 Oct, [facility] [place] [facility] [address] [address] [facility] [id number] [place] [address]- 9759 Oct, [facility] [place] [facility] [address] [address] [facility] [id number] [place] [address]- 5670 Oct, 2013 [facility] [place] [facility] [address] [id number] [place] [address]- 0506 Oct, [facility] [place] [facility] [address] [id number] [place] [address]- 1946 Oct, 2013 [facility] [place] [facility] [address] [id number] [place] [address]- 7856 Oct, [facility] [place] [facility] [address] [id number] [place] [address]- 1764 Oct, [facility] [place] [facility] [address] [id number] [place] [address]- 3165 Oct, [facility] [place] [facility] [address] [id number] [place] [address]- 7686 Oct, [facility] [place] [facility] [address] [id number] [place] [address]- 0653 Sep, [facility] [place] [facility] [address] [id number] [place] [address]- 1313 Sep, [facility] [place] [facility] [address] [id number] [place] [address]- 3360 Sep, [facility] [place] [facility] [address] [address] [facility] [id number] [place] [address]- 8593 Sep, [facility] [place] [facility] [address] [id number] [place] [address]- 8149 Aug, [facility] [place] [facility] [address] [id number] [place] [address]- 0121 Aug, [facility] [place] [facility] [address] [id number] [place] [address]- 0045 Aug, [facility] [place] [facility] [address] [id number] [place] [address]- 3449 Aug, [facility] [place] [facility] [address] [id number] [place] [address]- 7304 Aug, [facility] [place] [facility] [address] [id number] [place] [address]- 9186 Aug, [facility] [place] [facility] [address] [id number] [place] [address]- 1061 Aug, [facility] [place] [facility] [address] [id number] [place] [address]- 3105 Aug, [facility] [place] [facility] [address] [id number] [place] [address]- 9727 Aug, [facility] [place] [facility] [address] [id number] [place] [address] Jul, [facility] [place] [facility] [address] [id number] [place] [address] Jul, [facility] [place] [facility] [address] [id number] [place] [address] Jul, [facility] [place] [facility] [address] [id number] [place] [address] Jul, [facility] [place] [facility] [address] [id number] [place] [address] Jul, [facility] [place] [facility] [address] [id number] [place] [address] Jul, [facility] [place] [facility] [address] [id number] [place] [address] Jul, [facility] [place] [facility] [address] [id number] [place] [address] Jul, [facility] [place] [facility] [address] [id number] [place] [address] Jun, [facility] [place] [facility] [address] [id number] [place] [address] Jun, [facility] [place] [facility] [address] [id number] [place] [address] Jun, [facility] [place] [facility] [address] [id number] [place] [address] Jun, [facility] [place] [facility] [address] [id number] [place] [address] Jun, [facility] [place] [facility] [address] [id number] [place] [address] Jun, [facility] [place] [facility] [address] [id number] [place] [address]80 Jun, [facility] [place] [facility] [address] [id number] [place] [address] Jun, [facility] [place] [facility] [address] [id number] [place] [address] 30 May, 2013 [facility] [place] [facility] [address] [id number] [place] [address] 26 May, 2013 [facility] [place] [facility] [address] [id number] [place] [address] 23 May, 2013 [facility] [place] [facility] [address] [id number] [place] [address] 19 May, 2013 [facility] [place] [facility] [address] [id number] [place] [address] 12 May, 2013 [facility] [place] [facility] [address] [id number] [place] [address] May, [facility] [place] [facility] [address] [id number], [place] [address] Apr, [facility] [place] [facility] [address] [id number], [place] [address] Apr, [facility] [place] [facility] [address] [id number] [place] [address] Apr, [facility] [place] [facility] [address] [id number] [place] [address] Apr, [facility] [place] [facility] [address] [id number] [place] [address] Apr, [facility] [place] [facility] [address] [id number] [place] [address] Apr, [facility] [address] [id number] [place] [address]287 Apr, [facility] [place] [facility] [address] [id number] [place] [address] Mar, [facility] [address] [id number] [place] [address] Mar, [facility] [place] [facility] [address] [id number] [place] [address] Mar, [facility] [address] [id number] [place] [address] Mar, [facility] [place] [facility] [address] [id number] [place] [address] Mar, [facility] [place] [facility] [address] [id number] [place] [address] Mar, [facility] [address] [id number] [place] [address] Mar, [facility] [place] [facility] [address] [id number] [place] [address] Jan, [facility] [address] [id number] [place] [address] Jan, [facility] [place] [facility] [address] [id number] [place] [address] Jan, [facility] [place] [facility] [address] [id number] [place] [address] Jan, [facility] [place] [facility] [address] [id number] [place] [address] Jan, [facility] [place] [facility] [address] [id number] [place] [address] Jan, [facility] [place] [facility] [address] [id number] [place] [address]- 1566 Jan, [facility] [address] [id number] [place] [address] December, [facility] [address] [id number] [place] [address] December, [facility] [address] [id number] [place] [address]- 90[address] December, [facility] [address] [id number] [place] [address]- [address] December, [facility] [address] [id number] [place] [address] Dec, [facility] [address] [id number] [place] [address]- [address] Dec, [facility] [address] [id number] [place] [address]- [address]4 Dec, [facility] [address] [id number] [place] [address] Oct, [facility] [address] [id number] [place] [address] Oct, [facility] [address] [id number] [place] [address] Oct, [facility] [place] [facility] [address] [id number] [place] [address]- [address] Oct, [facility] [place] [facility] [address] [id number], [place] [address] Oct, [facility] [place] [facility] [address] [id number] [place] [address] 24[address] Oct, [facility] [place] [facility] [address] [id number] [place] [address]- 66[address] Oct, [facility] [place] [facility] [address] [id number], [place] [address] Oct, [facility] [place] [facility] [address] [id number], [place] [address] Oct, [facility] [address] [id number] [place] [address]80 08 Oct, 2012 [facility] [place] [facility] [address] [id number] [place] [address]- [address] Oct, [facility] [address] [id number] [place] [address]- [address]758 Sep, [facility] [place] [facility] [address] [id number] [place] [address] Sep, [facility] [address] [id number] [place] [address]- [address] Sep, [facility] [address] [id number] [place] [address] Aug, [facility] [address] [id number] [place] [address] Aug, [facility] [address] [id number] [place] [address] Aug, [facility] [address] [id number] [place] [address] Aug, [facility] [address] [address] [facility] [id number] [place] [address] Jul, [facility] [address] [id number] [place] [address] Jul, [facility] [place] [facility] [address] [id number] [place] [address] 39[address] Jul, [facility] [place] [facility] [address] [id number] [place] [address] Jul, [facility] [place] [facility] [address] [id number] [place] [address] Jul, [facility] [place] [facility] [address] [id number], [place] [address] Jul, [facility] [place] [facility] [address] [id number] [place] [address] Jul, [facility] [place] [facility] [address] [id number] [place] [address] Jul, [facility] [place] [facility] [address] [id number] [place] [address] Jun, [facility] [place] [facility] [address] [id number] [place] [address] 88[address] Jun, [facility] [place] [facility] [address] [id number] [place] [address] 84[address] Jun, [facility] [place] [facility] [address] [id number] [place] [address] Jun, [facility] [place] [facility] [address] [id number] [place] [address] Jun, [facility] [place] [facility] [address] [id number] [place] [address] 4[address] May, [facility] [place] [facility] [address] [id number] [place] [address]60 20 May, 2012 [facility] [place] [facility] [address] [id number] [place] [address] 18 May, 2012 [facility] [place] [facility] [address] [id number] [place] [address] May, [facility] [place] [facility] [address] [id number] [place] [address] 6863 May, [facility] [place] [facility] [address] [id number] [place] [address] 9209 Apr, [facility] [place] [facility] [address] [id number] [place] [address] 6870 Apr, [facility] [place] [facility] [address] [id number] [place] [address] 16 Apr, 2012 [facility] [place] [facility] [address] [id number] [place] [address] Apr, [facility] [place] [facility] [address] [id number] [place] [address]573 Apr, [facility] [place] [facility] [address] [id number] [place] [address] 5[address] Apr, [facility] [place] [facility] [address] [id number] [place] [address] 1987 Apr, [facility] [place] [facility] [address] [id number] [place] [address] Mar, [facility] [place] [facility] [address] [id number] [place] [address]166 Mar, [facility] [place] [facility] [address] [id number] [place] [address] 2676 Mar, [facility] [place] [facility] [address] [id number] [place] [address] 2144 Mar, [facility] [place] [facility] [address] [id number] [place] [address] 4[address] Jan, [facility] [place] [facility] [address] [id number] [place] [address] 8298 Jan, [facility] [place] [facility] [address] [id number] [place] [address] 29[address] Jan, [facility] [place] [facility] [address] [id number] [place] [address] Jan, [facility] [place] [facility] [address] [id number] [place] [address] Jan, [facility] [place] [facility] [address] [id number] [place] [address] 3311 Jan, [facility] [place] [facility] [address] [id number] [place] [address] 88[address] December, [facility] [place] [facility] [address] [id number] [place] [address] December, [facility] [place] [facility] [address] [id number] [place] [address] 47[address] December, [facility] [address] [id number] [place] [address] 8820 December, [facility] [address] [id number] [place] [address] 4186 Dec, [facility] [address] [id number] [place] [address] 3426 Dec, [facility] [address] [id number] [place] [address]46 30 Nov, 2011 [facility] [address] [id number] [place] [address] 4669 29 Nov, 2011 [facility] [address] [id number] [place] [address] 6967 Oct, [facility] [address] [id number] [place] [address] 16 Nov, 2011 [facility] [address] [id number] [place] [address] 1301 Oct, [facility] [address] [id number] [place] [address] 6853 Oct, [facility] [address] [id number] [place] [address] 0356 Oct, [facility] [address] [id number] [place] [address] 6846 Oct, [facility] [address] [id number] [place] [address] 4896 Oct, [facility] [address] [id number] [place] [address]- 7836 Oct, [facility] [address] [id number] [place] [address]- 2546 Oct, [facility] [address] [id number] [place] [address] 9898 Sep, [facility] [address] [id number] [place] [address] 2886 Sep, [facility] [place] [facility] [address] [id number] [place] [address] Sep, [facility] [place] [facility] [address] [id number] [place] [address]- 0190 Sep, [facility] [place] [facility] [address] [id number] [place] [address]- 4436 Sep, [facility] [place] [facility] [address] [id number] [place] [address]- 8390 Sep, [facility] [place] [facility] [address] [id number] [place] [address]- 9285 Sep, [facility] [place] [facility] [address] [id number] [place] [address] 2144 Sep, [facility] [place] [facility] [address] [id number] [place] [address] 0940 Aug, [facility] [place] [facility] [address] [id number] [place] [address]- 4368 Aug, [facility] [place] [facility] [address] [id number] [place] [address]- 1732 Aug, [facility] [place] [facility] [address] [id number] [place] [address]- 6826 Jul, [facility] [place] [facility] [address] [id number], [place] [address]- 8536 Jul, [facility] [place] [facility] [address] [id number] [place] [address]- 7439 18 Jul, 2011 [facility] [place] [facility] [address] [id number] [place] [address]- 8280 17 Jul, 2011 [facility] [place] [facility] [address] [id number] [place] [address]- 3583 08 Jul, 2011 [facility] [place] [facility] [address] [id number] [place] [address]- 6267 02 Jul, 2011 [facility] [address] [id number] [place] [address]- 1022 31 Jun, 2011 [facility] [place] [facility] [address] [id number] [place] [address]- 1990 20 Jun, 2011 [facility] [place] [facility] [address] [id number] [place] [address]- 7998 20 Mar, 2011 [facility] [place] [facility] [address] [id number] [place] [address]- 8956 14 Dec, 2010 [facility] [place] [facility] [address] [id number] [place] [address]- 7896 14 Oct, 2010 [facility] [place] [facility] [address] [id number] [place] [address]- 0316 06 Aug, 2010 [facility] [place] [facility] [address] [id number] [place] [address]- 3499 30 Jul, 2010 [facility] [place] [facility] [address] [id number] [place] [address]- 5687 Jul, [facility] [place] [facility] [address] [id number] [place] [address]- 5126 Jul, [facility] [place] [facility] [address] [facility] [id number] [place] [address]- 6684 Jul, [facility] [place] [facility] [address] [id number] [place] [address]- 5586 08 Jul, 2010 [facility] [place] [facility] [address] [id number] [place] [address]- 4555 22 Aug, 2009 [facility] [place] [facility] [address] [id number] [place] [address]- 2076 15 Aug, 2009 [facility] [place] [facility] [address] [id number] [place] [address]- 0816 14 Aug, 2009 [facility] [place] [facility] [address] [facility] [id number] [place] [address]- 9757 07 Aug, 2009 [facility] [place] [facility] [address] [facility] [id number] [address] Jul, [facility] [address] [id number], [place] [address] Jul, [facility] [address] [id number] [address] Jul, [facility] [address] [facility] [id number][place] [address] Jul, [facility] [address] [facility] [id number], [place] [address]- 1236 Jun, [facility] [address] [id number], [place] [address] Jun, IMMUNIZATIONS No Known Immunizations SOCIAL HISTORY Never Assessed REASON FOR VISIT Controlled Med Refill 06/10/2017 PLAN OF CARE VITAL SIGNS MEDICATIONS Medication Instructions Dosage Frequency Start Date End Date Duration Status Hydrocodone-Acetaminophen 7.5-325 MG Orally 2 times a day 1 tablet as needed 12h Jun, 28 days Active RESULTS No Results PROCEDURES [...]
--- OUTSIDE RECORDS SUMMARY | 2018-03-17 11:10 | XMS REPORT ---
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 Name Role Phone WALTER MARTINEZ Unavailable PROBLEMS Type Condition ICD9-CM Code GLO94-HA Code Onset Dates Condition Status SNOMED Code Problem 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 Active 23411545 Problem Attention-deficit hyperactivity disorder, predominantly inattentive type F90.0 Active 48784362 Problem Obstructive sleep apnea G47.33 Active 14981240 Problem Primary insomnia F51.01 Active 3737452 Problem Neuralgia M79.2 Active 47036930 Problem Cannabis use disorder, mild, abuse F12.10 Active 25996602 Problem Folic acid deficiency E53.8 Active 242973080 Problem Restless legs G25.81 Active 35929904 Problem Major depressive disorder, recurrent, mild F33.0 Active 59631660 Problem Generalized anxiety disorder F41.1 Active 65468648 Problem Major depressive disorder, recurrent episode, moderate F33.1 Active 234968125 Problem Hypertension I10 Active 32145091 Problem Hyperlipidemia E78.5 Active 46412878 Problem Primary osteoarthritis of both knees M17.0 Active 475642341 Problem Chronic hepatitis K73.9 Active 59089007 Problem Low back pain M54.5 Active 827918836 Problem Chronic viral hepatitis B without delta-agent B18.1 Active 113685556 Problem Insomnia G47.00 Active 300124745 Problem Hypothyroid E03.9 Active 67357266 Problem Depression, major, recurrent, mild F33.0 Active 076459743 Problem Obesity due to excess calories, unspecified obesity severity E66.09 Active 334602168 ALLERGIES No Information ENCOUNTERS Encounter Location Date Diagnosis [facility] [address] [facility] [id number] [address] Mar, [facility] [address] [id number] [address] Jan, [facility] [id number] [place] [address] 50392- 9651 December, [facility] [address] 25731- 0664 December, [facility] [id number] [place] [address] 29642- 1805 Dec, Bone pain M89.8X9 [facility] [address] 92864- 2524 Dec, [facility] [id number] [place] [address] 27859- 3293 Oct, [facility] [address] 14434- 9187 Oct, Syncope, unspecified syncope type R55 ; Primary insomnia F51.01 ; Dry mouth R68.2 and Cannabis use disorder, mild, abuse F12.10 [facility] [id number] [place] [address] 67874- 8760 Oct, [facility] [id number] [place] [address] 70181- 5472 Sep, [facility] [id number] [place] [address] 96176- 7642 Sep, [facility] [id number] [place] [address] 80008- 7999 Sep, [facility] [id number] [place] [address] [id number] Sep, Dental examination Z01.20 [facility] [id number] [place] [address] 82784- 2521 Sep, Dental examination Z01.20 [facility] [id number] [place] [address] 25084- 7241 Sep, Sinus congestion R09.81 ; Mouth sores K13.79 ; Low back pain M54.5 and Mouth swelling R22.0 [facility] [address] 78899- 1254 Aug, Low back pain M54.5 [place] [address] 42829- 6126 Aug, Low back pain M54.5 [place] [address] 19346- 3646 Jul, [place] [address] 08966- 6042 Jul, 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 ; Encounter for immunization Z23 ; Hypothyroid E03.9 ; Decreased renal function N28.9 and Muscle cramps R25.2 [place] [address] 15068- 0704 Jul, [place] [address] 56371- 7655 Jul, [place] [address] 86400- 3158 Jul, [place] [address] 85347- 1812 Jul, Major depressive disorder, recurrent, mild F33.0 [place] [address] 41238- 6640 Jul, Acquired cyst of kidney N28.1 ; Acidosis E87.2 and Hyperkalemia E87.5 [place] [address] 85953- 3622 Jul, Major depressive disorder, recurrent, mild F33.0 ; Attention -deficit hyperactivity disorder, predominantly inattentive type F90.0 and Generalized anxiety disorder F41.1 [place] [address] 55743- 0668 02 Jul, 2017 Low back pain M54.5 [place] [address] 05706- 8975 Jun, Cough R05 ; Low back pain M54.5 and Pre-syncope R55 [facility] [id number] [place] [address] 45856- 8699 Jun, Low back pain M54.5 [facility] [address] [facility] [id number] [place] [address] [id number] Jun, Dental caries K02.9 [facility] [address] 97407- 9628 Jun, [facility] [id number] [place] [address] 96761- 5734 Jun, Major depressive disorder, recurrent, mild F33.0 ; Attention -deficit hyperactivity disorder, predominantly inattentive type F90.0 and Generalized anxiety disorder F41.1 [facility] [id number] [place] [address] 78779- 9760 May, Vertigo R42 ; Confusion R41.0 ; Weakness R53.1 and Vision changes H53.9 [facility] [id number] [place] [address] 20128- 1949 May, [facility] [id number] [place] [address] 53817- 3474 May, [facility] [id number] [place] [address] 92671- 6718 May, Low back pain M54.5 [facility] [id number] [place] [address] 90964- 1185 May, Major depressive disorder, recurrent, mild F33.0 ; Attention -deficit hyperactivity disorder, predominantly inattentive type F90.0 and Generalized anxiety disorder F41.1 [facility] [id number] [place] [address] 94133- 9478 May, [facility] [address] [place] [address] 18037- 3132 May, Acute worsening of stage 3 chronic kidney disease N18.3 [facility] [id number] [place] [address] 33813- 5566 Apr, [facility] [address] 31686- 6998 Apr, Acute allergic rhinitis due to pollen, unspecified seasonality J30.1 ; Restless legs G25.81 and Low back pain M54.5 [place] [address] 51560- 8805 Apr, Primary osteoarthritis of both knees M17.0 [place] [address] 65215- 8093 Apr, Generalized anxiety disorder F41.1 [place] [address] 55450- 3121 Apr, Major depressive disorder, recurrent, mild F33.0 ; Attention -deficit hyperactivity disorder, predominantly inattentive type F90.0 and Generalized anxiety disorder F41.1 [place] [id number] [place] [address] 04664- 1517 Apr, [place] [id number] [place] [address] 45402- 2256 Mar, Major depressive disorder, recurrent episode, moderate F33.1 ; Generalized anxiety disorder F41.1 and ADHD, predominantly inattentive type F90.0 [facility] [id number] [place] [address] 25968 -9387 Mar, Abscess L02.91 [facility] [id number] [place] [address] 65536- 4984 Mar, 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 [facility] [address] 45535- 9656 Mar, Decreased renal function N28.9 [facility] [id number] [place] [address] [id number] Mar, Dental examination Z01.20 [facility] [address] 66880- 9702 Mar, 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 [facility] [address] [address]- 6892 Mar, 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 [facility] [id number] [place] [address] [id number] Mar, Dental examination Z01.20 and Dental caries K02.9 [place] [id number] [place] [address] 53447- 3337 Mar, Chronic viral hepatitis B without delta-agent B18.1 ; Folic acid deficiency E53.8 ; 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 and Decreased renal function N28.9 [place] [id number] [place] [address] 69291- 0672 Mar, Major depressive disorder, recurrent, mild F33.0 [place] [id number] [place] [address] 27870- 3994 Mar, [place] [id number] [place] [address] 94293- 7689 Mar, Chronic hepatitis K73.9 ; 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 ; Localized edema R60.0 ; Illicit drug use F19.90 ; Vision changes H53.9 and Obesity due to excess calories, unspecified obesity severity E66.[address] [place] [address] 53407- 9736 Jan, Major depressive disorder, recurrent, mild F33.0 [facility] [id number] [place] [address] 06320- 6592 Jan, Chronic viral hepatitis B without delta-agent B18.1 [facility] [id number] [place] [address] 02168- 9550 Jan, [place] [id number] [place] [address] 78259- 6643 Jan, Weight gain R63.5 ; Hypothyroid E03.9 ; 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 ; Decreased renal function N28.9 and Chronic viral hepatitis B without delta-agent B18.1 [facility] [id number] [place] [address] 51777- 8443 December, Major depressive disorder, recurrent, mild F33.0 and Generalized anxiety disorder F41.1 [facility] [id number] [place] [address] 21093- 9841 December, Obesity due to excess calories, unspecified obesity severity E66.09 and Folic acid deficiency E53.8 [facility] [id number] [place] [address] 76181- 7555 December, Folic acid deficiency E53.8 [place] [address] 53236- 7132 December, Folic acid deficiency E53.8 [place] [id number] [place] [address] 72814- 3950 December, Obesity due to excess calories, unspecified obesity severity E66.09 [facility] [address] 56820- 4980 December, [facility] [address] 15831- 4838 December, Folic acid deficiency E53.8 [facility] [address] [id number] December, Encounter for other administrative examinations Z02.89 [place] [id number] [place] [address] 21822- 9072 Dec, [facility] [address] [id number] Dec, Dental caries K02.9 [place] [address] 86852- 2134 Oct, Bone pain M89.8X9 [place] [address] 48318- 2552 Oct, Hypothyroid E03.9 [facility] [address] [place] [address]- 3867 24 Oct, 2016 Hypothyroid E03.9 [facility] [address] [place] [address] 37576- 5031 13 Oct, 2016 Breast cancer screening Z12.39 [facility] [address] [address] 08 Oct, 2016 Dental examination Z01.20 [facility] [id number] [place] [address] 81857- 8545 02 Oct, 2016 [facility] [id number] [place] [address] 71996- 4629 Oct, Major depressive disorder, recurrent, mild F33.0 and Generalized anxiety disorder F41.1 [place] [id number] [place] [address] 49784- 7338 Oct, [facility] [id number] [place] [address] 68852- 2675 Oct, Hypothyroid E03.9 [facility] [id number] [place] [address] 12991- 4321 Sep, Hypothyroid E03.9 ; Chronic viral hepatitis B without delta- agent B18.1 and Folic acid deficiency E53.8 [place] [address] [place] [address] 91990- 0387 Sep, Hypothyroidism, unspecified type E03.9 ; Elevated parathyroid hormone E34.9 and Chronic viral hepatitis B without delta-agent B18.1 [facility] [address] [place] [address] 65784- 0651 Sep, [facility] [id number] [place] [address] 87869- 3365 Sep, Elevated parathyroid hormone E34.9 [facility] [address] [place] [address] 40986- 9759 Sep, [facility] [id number] [place] [address] 73882- 4517 Sep, Chronic hepatitis K73.9 ; Bone pain M89.8X9 and Abnormal complete blood count R79.89 [facility] [address] 01786- 5275 Aug, Major depressive disorder, recurrent, mild F33.0 [facility] [id number] [place] [address] 60319- 7304 Aug, Bone pain M89.8X9 [facility] [id number] [place] [address] 32803- 3042 Aug, [place] [address] 30430- 3937 Jul, Chronic viral hepatitis B without delta-agent B18.1 [place] [address] 07904- 7182 Jul, Hypothyroidism, unspecified type E03.9 [facility] [id number] [place] [address] 49612- 7454 Jul, [facility] [id number] [place] [address] 51824- 8167 Jul, Chronic hepatitis K73.9 and Hypothyroid E03.9 [place] [id number] [place] [address] 44985- 2230 Jul, Low back pain M54.5 [place] [id number] [place] [address] 06732- 4636 Jun, Depression, major, recurrent, mild F33.0 and ADD (attention deficit disorder) F90.0 [place] [id number] [place] [address] 94605- 7286 Jun, [facility] [id number] [place] [address] 78338- 4432 Jun, Low back pain M54.5 [place] [id number] [place] [address] 10229- 0110 Jun, Encounter for immunization Z23 ; Major depressive disorder, recurrent, mild F33.0 and Attention-deficit hyperactivity disorder, predominantly inattentive type F90.0 [facility] [address] 31365- 3542 Jun, [facility] [address] 46516- 2149 Jun, Low back pain M54.5 [facility] [address] 25839- 8933 May, [facility] [address] 34077- 6909 May, [facility] [address] 29293- 2005 May, Essential (primary) hypertension I10 [facility] [address] 11626- 9228 May, Low back pain M54.5 [facility] [address] 55453- 1455 May, Low back pain M54.5 ; Chronic hepatitis K73.9 and Hypothyroid E03.9 [facility] [address] 86574- 3964 May, Hypothyroidism, unspecified type E03.9 [facility] [address] 80892- 3890 May, Low back pain M54.5 [facility] [id number] [place] [address] 47036- 1361 May, [facility] [address] 62158- 7646 May, [facility] [address] 46592- 0331 May, Major depressive disorder, recurrent, moderate F33.1 ; Generalized anxiety disorder F41.1 ; Insomnia G47.00 and ADD (attention deficit disorder) F90.0 [facility] [id number] [place] [address] 80571- 2934 Apr, Low back pain M54.5 [facility] [id number] [place] [address] 89868- 4956 Apr, [facility] [address] 25737- 4947 Apr, Low back pain M54.5 [place] [address] 71169- 1292 Apr, Low back pain M54.5 ; Tooth pain K08.8 and Seasonal allergic rhinitis due to pollen J30.1 [place] [id number] [place] [address] 99356- 1963 Apr, Low back pain M54.5 [place] [address] 42763- 3263 Apr, LGSIL Pap smear of vagina R87.622 [place] [address] 47016- 0907 Apr, Low back pain M54.5 [place] [id number] [place] [address] 26229- 1750 Mar, [place] [id number] [place] [address] 93468- 1817 Mar, Low back pain M54.5 [place] [id number] [place] [address] 50889- 5571 Mar, Encounter for Papanicolaou smear for cervical cancer screening Z12.4 ; Encounter for routine gynecological examination Z01.419 and Breast cancer screening Z12.39 [place] [id number] [place] [address] 04729- 1281 18 Mar, 2016 Hypothyroidism, unspecified type E03.9 [place] [address] 97980- 2084 Mar, Low back pain M54.5 ; Other chronic pain G89.29 ; Hypothyroid E03.9 and Hypothyroidism, unspecified type E03.9 [facility] [address] [place] [address] 56192- 8514 Mar, Major depressive disorder, recurrent, moderate F33.1 and Attention-deficit hyperactivity disorder, predominantly inattentive type F90.0 [facility] [id number] [place] [address] 80024 -5723 Mar, Bronchitis J40 [facility] [id number] [place] [address] 10763- 3563 Jan, [facility] [id number] [place] [address] 40768- 0178 Jan, [place] [id number] [place] [address] 24026- 1557 Jan, Insomnia G47.00 [facility] [id number] [place] [address] 18171- 1141 December, [facility] [id number] [place] [address] 95209- 7318 December, Major depressive disorder in partial remission F32.4 and Attention-deficit hyperactivity disorder, unspecified type F90.9 [facility] [id number] [place] [address] 65541- 3831 December, [facility] [id number] [place] [address] 10221- 0500 December, [facility] [id number] [place] [address] 62122- 4657 Dec, [place] [id number] [place] [address] 89067- 8050 Dec, Major depressive disorder, recurrent episode, moderate 296.32 and Attention deficit disorder of childhood without mention of hyperactivity 314.00 [facility] [id number] [place] [address] 11725- 6352 Dec, Major depressive disorder, recurrent episode, mild 296.31 ; ADD (attention deficit disorder) F90.0 and Hyperlipidemia E78.5 [facility] [id number] [place] [address] 33839- 3574 Dec, Insomnia G47.00 [facility] [id number] [place] [address] 20849- 7784 Dec, Attention-deficit hyperactivity disorder, predominantly inattentive type F90.0 [facility] [id number] [place] [address] 21140- 2644 Oct, Restless legs syndrome G25.81 [facility] [id number] [place] [address] 72449- 9367 Oct, Hypothyroidism, unspecified type E03.9 [place] [id number] [place] [address] 65619- 3020 Oct, [facility] [id number] [place] [address] 38533- 9799 Oct, [facility] [id number] [place] [address] 21534- 6090 Oct, Hypothyroid E03.9 and Chronic hepatitis K73.9 [facility] [id number] [place] [address] 60554- 3888 Oct, [facility] [id number] [place] [address] 45383- 1376 Oct, Restless legs syndrome G25.81 ; Chronic hepatitis K73.9 ; Hypertension I10 ; Hypothyroid E03.9 and Breast cancer screening Z12.39 [facility] [id number] [place] [address] 41414- 8419 Oct, [facility] [id number] [place] [address] 34657- 7599 Oct, [facility] [id number] [place] [address] 73884- 8438 Oct, [facility] [address] [address]- 9673 Oct, [facility] [id number] [place] [address] 17228- 3426 Oct, [facility] [address] [place] [address] 27904- 4825 Oct, [facility] [id number] [place] [address] 70538- 1374 Oct, [facility] [address] [place] [address] 57256- 8970 Sep, [facility] [id number] [place] [address] 98154- 1110 Sep, Attention-deficit hyperactivity disorder, predominantly inattentive type F90.0 and Major depressive disorder in partial remission F32.4 [facility] [id number] [place] [address] 30475- 5610 Sep, [facility] [id number] [place] [address] 56556- 1070 Aug, [facility] [id number] [place] [address] 58977- 9076 Aug, [facility] [id number] [place] [address] 01629- 8344 Aug, Major depressive disorder, recurrent, mild F33.0 ; Attention -deficit hyperactivity disorder, unspecified type F90.9 and Generalized anxiety disorder F41.1 [facility] [id number] [address] 08 Aug, 2015 Chronic hepatitis K73.9 ; Primary osteoarthritis of both knees M17.0 and Neuralgia M79.2 [facility] [id number] [address] 24 Jul, 2015 [facility] [id number] [place] [address]- 4933 Jul, [facility] [id number] [place] [phone]- 9566 Jul, [facility] [address] [address] Jul, [facility] [id number] [place] [phone]- [address]168 Jun, [facility] [address] [address] Jun, Bronchitis J40 and Encounter for immunization Z23 [facility] [address] [address] 30 May, 2015 [facility] [address] [address] May, [facility] [address] [address]- [address] May, [facility] [id number] [place] [address]- [address] May, Hypokalemia 276.8 [facility] [id number] [place] [id number]- [address] 08 May, 2015 Major depressive disorder, recurrent episode, mild 296.31 ; Attention deficit disorder of childhood without mention of hyperactivity 314.00 and Generalized anxiety disorder 300.02 [facility] [id number] [place] [address] 45830- 7724 May, Hypertension 401.9 and Hypokalemia 276.8 [facility] [id number] [place] [address] 64609- 2176 May, [facility] [id number] [place] [address] 35570- 6616 Apr, [facility] [id number] [place] [address] 33653- 1137 Apr, [facility] [address] [address] Apr, [facility] [address] [address] 4899 Apr, [facility] [id number] [address] 0726 Mar, [facility] [id number] [place] [address] 77117- 3209 Mar, [facility] [id number] [place] [address] 37899- 2988 Mar, [facility] [id number] [place] [address] 69370- 6402 Mar, [facility] [id number] [place] [address] 05893- 4329 Mar, Arthritis of both knees 716.96 ; Hepatitis B 070.30 ; Hypertension 401.9 ; Carpal tunnel syndrome 354.0 and Cubital tunnel syndrome 354.2 [facility] [address] [address] 1250 Mar, [facility] [id number] [place] [address] 13663- 6203 Mar, [facility] [id number] [place] [address] 70876- 0103 Mar, 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, chronic, without mention of hepatitis delta 070.32 ; Chronic hepatitis C without mention of hepatic coma 070.54 and Major depressive disorder, recurrent episode, moderate 296.32 [facility] [address] [address]- 7275 Jan, [facility] [id number] [place] [address] 95875- 8158 Jan, Major depressive disorder, recurrent episode, mild 296.31 and Attention deficit disorder of childhood without mention of hyperactivity 314.00 [facility] [id number] [place] [address] 83453- 9529 Jan, [facility] [address] [facility] [id number] [address]- 0565 Jan, [facility] [id number] [address] 4296 December, Attention deficit disorder of childhood without mention of hyperactivity 314.00 ; Major depressive disorder, recurrent episode, mild 296.31 and Generalized anxiety disorder 300.02 [facility] [address] [facility] [id number] [address] 6891 December, [facility] [address] [facility] [id number] [address]- 1532 Dec, [facility] [id number] [place] [address] 15259- 7728 Dec, [facility] [id number] [address] 3246 19 Oct, 2014 [facility] [address] [address]- 9185 19 Oct, 2014 [facility] [id number] [address] 4898 18 Oct, 2014 [facility] [address] [address]- 9866 18 Oct, 2014 [facility] [address] [address]- 6204 18 Oct, 2014 [facility] [id number] [address] 5597 18 Oct, 2014 [facility] [id number] [address]- 8594 16 Oct, 2014 [facility] [address] [address]- 4543 13 Oct, 2014 [facility] [id number] [address]- 4745 13 Oct, 2014 [facility] [id number] [place] [address], [place] [address]- 1548 12 Oct, 2014 [facility] [place] [facility] [address] [id number] [place] [address]- 4702 12 Oct, 2014 [facility] [place] [facility] [address] [id number] [place] [address]- 0284 10 Oct, 2014 [facility] [place] [facility] [address] [facility] [id number] [place] [address]- 6139 10 Oct, 2014 [facility] [place] [facility] [address] [id number] [place] [address]- 7091 05 Oct, 2014 [facility] [place] [facility] [address] [id number] [place] [address]- 3387 05 Oct, 2014 [facility] [place] [facility] [address] [facility] [id number] [place] [address]- 2196 26 Oct, 2014 [facility] [place] [facility] [address] [facility] [id number] [place] [address]- 0679 26 Oct, 2014 [facility] [place] [facility] [address] [facility] [id number] [place] [address]- 8697 25 Oct, 2014 [facility] [place] [facility] [address] [facility] [id number] [place] [address]- 8940 19 Oct, 2014 [facility] [place] [facility] [address] [facility] [id number] [place] [address]- 4576 18 Oct, 2014 [facility] [place] [facility] [address] [facility] [id number] [place] [address]- 9305 17 Oct, 2014 [facility] [place] [facility] [address] [facility] [id number] [place] [address]- 7374 17 Oct, 2014 [facility] [place] [facility] [address] [facility] [id number] [place] [address]- 7678 11 Oct, 2014 [facility] [place] [facility] [address] [facility] [id number] [place] [address]- 4881 11 Oct, 2014 [facility] [place] [facility] [address] [facility] [id number] [place] [address]- 4550 Oct, [facility] [place] [facility] [address] [id number] [place] [address]- 8956 Oct, [facility] [place] [facility] [address] [id number] [place] [address]- 4929 Oct, [facility] [place] [facility] [address] [id number] [place] [address]- 7424 Oct, [facility] [place] [facility] [address] [id number] [place] [address]- 0898 Sep, [facility] [place] [facility] [address] [id number] [place] [address]- 3713 Sep, [facility] [place] [facility] [address] [id number] [place] [address]- 7739 Sep, [facility] [place] [facility] [address] [id number] [place] [address]- 2415 Sep, [facility] [place] [facility] [address] [id number] [place] [address]- 3916 Sep, [facility] [place] [facility] [address] [id number] [place] [address]- 3543 Sep, [facility] [place] [facility] [address] [id number] [place] [address]- 0035 Sep, [facility] [place] [facility] [address] [id number] [place] [address]- 6315 Sep, [facility] [place] [facility] [address] [id number] [place] [address]- 0275 Sep, [facility] [place] [facility] [address] [id number] [place] [address]- 5758 Sep, [facility] [place] [facility] [address] [id number] [place] [address]- 0484 Sep, [facility] [place] [facility] [address] [id number] [place] [address]- 3472 Sep, [facility] [place] [facility] [address] [id number] [place] [address]- 3009 Sep, [facility] [address] [id number] [place] [address]- 0780 Sep, [facility] [address] [id number] [place] [address]- 0024 Sep, [facility] [address] [id number] [place] [address]- 9961 Sep, [facility] [address] [id number] [place] [address]- 9093 Aug, [facility] [address] [id number] [place] [address]- 7228 Aug, [facility] [address] [id number] [place] [address]- 8700 Aug, [facility] [address] [id number] [place] [address]- 4298 Aug, [facility] [address] [id number] [place] [address]- 0201 Aug, [facility] [address] [id number] [place] [address]- 9911 Aug, [facility] [address] [id number] [place] [address]- 0259 Aug, [facility] [address] [id number] [place] [address]- 8814 20 Aug, 2014 [facility] [address] [id number] [place] [address]- 4457 19 Aug, 2014 [facility] [place] [facility] [address] [id number] [place] [address]- 9266 18 Aug, 2014 [facility] [place] [facility] [address] [id number] [place] [address]- 9087 18 Aug, 2014 [facility] [address] [id number] [place] [address]- 5358 16 Aug, 2014 [facility] [place] [facility] [address] [id number] [place] [address]- 8145 16 Aug, 2014 [facility] [place] [facility] [address] [id number] [place] [address]- 3725 15 Aug, 2014 [facility] [place] [facility] [address] [id number] [place] [address]- 0632 15 Aug, 2014 [facility] [place] [facility] [address] [id number] [place] [address]- 8921 Aug, [facility] [place] [facility] [address] [id number] [place] [address]- 7413 Aug, [facility] [place] [facility] [address] [id number] [place] [address]- 2558 Aug, [facility] [place] [facility] [address] [id number] [place] [address]- 0222 Aug, [facility] [place] [facility] [address] [id number] [place] [address]- 9427 04 Aug, 2014 [facility] [place] [facility] [address] [id number] [place] [address]- 0580 Aug, [facility] [place] [facility] [address] [id number] [place] [address]- 0867 Aug, [facility] [place] [facility] [address] [id number] [place] [address]- 8727 Aug, [facility] [place] [facility] [address] [id number] [place] [address]- 0766 Aug, [facility] [place] [facility] [address] [id number] [place] [address]- 3240 Aug, [facility] [place] [facility] [address] [id number] [place] [address]- 2786 Jul, [facility] [place] [facility] [address] [id number] [place] [address]- 1053 Jul, [facility] [place] [facility] [address] [id number], [place] [address]- 3616 Jul, [facility] [place] [facility] [address] [id number] [place] [address]- 6012 Jul, [facility] [place] [facility] [address] [id number] [place] [address]- 2726 Jul, [facility] [place] [facility] [address] [id number] [place] [address]- 5636 Jul, [facility] [place] [facility] [address] [id number] [place] [address]- 1276 Jun, [facility] [place] [facility] [address] [id number] [place] [address]- 6812 Jun, [facility] [place] [facility] [address] [id number] [place] [address]- 3687 Jun, [facility] [place] [facility] [address] [facility] [id number] [place] [address]- 5827 Jun, [facility] [place] [facility] [address] [id number] [place] [address]- 3225 Jun, [facility] [place] [facility] [address] [facility] [id number] [place] [address]- 8552 Jun, [facility] [place] [facility] [address] [facility] [id number] [place] [address]- 3060 Jun, [facility] [place] [facility] [address] [id number], [place] [address]- 9739 Jun, [facility] [place] [facility] [address] [id number], [place] [address]- 2820 16 May, 2014 [facility] [place] [facility] [address] [id number] [place] [address]- 5732 16 May, 2014 [facility] [place] [facility] [address] [facility] [id number] [place] [address]- 2657 15 May, 2014 [facility] [place] [facility] [address] [facility] [id number] [place] [address]- 6612 15 May, 2014 [facility] [place] [facility] [address] [id number] [place] [address]- 1685 08 May, 2013 [facility] [place] [facility] [address] [id number] [place] [address]- 6105 May, [facility] [place] [facility] [address] [id number] [place] [address]- 4576 May, 2013 [facility] [place] [facility] [address] [id number] [place] [address]- 8620 May, [facility] [place] [facility] [address] [id number] [place] [address]- 0304 Apr, [facility] [place] [facility] [address] [id number] [place] [address]- 1031 Apr, [facility] [place] [facility] [address] [id number] [place] [address]- 7132 Apr, [facility] [place] [facility] [address] [id number] [place] [address]- 1589 Apr, [facility] [place] [facility] [address] [id number] [place] [address]- 3482 Apr, [facility] [place] [facility] [address] [id number] [place] [address]- 1342 Apr, [facility] [place] [facility] [address] [id number] [place] [address]- 7758 Apr, [facility] [place] [facility] [address] [id number] [place] [address]- 7199 Apr, [facility] [place] [facility] [address] [id number] [place] [address]- 8563 Apr, [facility] [place] [facility] [address] [id number] [place] [address]- 3759 Apr, [facility] [place] [facility] [address] [id number] [place] [address]- 9351 Apr, [facility] [place] [facility] [address] [id number] [place] [address]- 2519 Apr, [facility] [place] [facility] [address] [id number] [place] [address]- 9828 Apr, [facility] [place] [facility] [address] [id number] [place] [address]- 3878 Mar, [facility] [place] [facility] [address] [id number] [place] [address]- 5020 Mar, [facility] [place] [facility] [address] [id number] [place] [address]- 7263 Mar, [facility] [place] [facility] [address] [id number] [place] [address]- 4205 Mar, [facility] [place] [facility] [address] [id number] [place] [address]- 7691 Jan, [facility] [place] [facility] [address] [id number] [place] [address]- 1845 Jan, [facility] [place] [facility] [address] [id number] [place] [address]- 1058 December, [facility] [place] [facility] [address] [id number] [place] [address]- 2957 December, [facility] [place] [facility] [address] [id number] [place] [address]- 9735 December, [facility] [place] [facility] [address] [id number] [place] [address]- 5795 December, [facility] [place] [facility] [address] [id number] [place] [address]- 4937 December, [facility] [place] [facility] [address] [id number] [place] [address]- 8746 December, [facility] [place] [facility] [address] [id number] [place] [address]- 0495 December, [facility] [place] [facility] [address] [id number] [place] [address]- 7640 December, [facility] [place] [facility] [address] [id number] [place] [address]- 3537 Dec, [facility] [place] [facility] [address] [id number] [place] [address]- 6312 Dec, [facility] [place] [facility] [address] [id number] [place] [address]- 7096 Dec, [facility] [place] [facility] [address] [id number] [place] [address]- 9174 Dec, [facility] [place] [facility] [address] [id number] [place] [address]- 9497 Oct, [facility] [place] [facility] [address] [id number] [place] [address]- 6432 Oct, [facility] [place] [facility] [address] [id number] [place] [address]- 4149 Oct, [facility] [place] [facility] [address] [id number] [place] [address]- 6156 Oct, [facility] [place] [facility] [address] [id number] [place] [address]- 9407 Oct, [facility] [place] [facility] [address] [id number] [place] [address]- 5321 Oct, [facility] [place] [facility] [address] [facility] [id number] [place] [address]- 1228 Oct, [facility] [place] [facility] [address] [id number] [place] [address]- 3012 Oct, [facility] [place] [facility] [address] [id number] [place] [address]- 4848 Oct, [facility] [place] [facility] [address] [id number] [place] [address]- 1230 Oct, [facility] [place] [facility] [address] [id number] [place] [address]- 9299 Oct, [facility] [place] [facility] [address] [id number] [place] [address]- 1079 Oct, [facility] [place] [facility] [address] [id number] [place] [address]- 4625 Oct, [facility] [place] [facility] [address] [id number] [place] [address]- 5436 Oct, [facility] [place] [facility] [address] [id number] [place] [address]- 5554 Oct, [facility] [place] [facility] [address] [id number] [place] [address]- 3559 Oct, [facility] [place] [facility] [address] [id number] [place] [address]- 2770 Oct, [facility] [place] [facility] [address] [id number] [place] [address]- 7063 Oct, [facility] [place] [facility] [address] [id number] [place] [address]- 9602 Oct, [facility] [place] [facility] [address] [id number] [place] [address]- 9661 Oct, [facility] [place] [facility] [address] [id number] [place] [address]- 0757 Oct, [facility] [place] [facility] [address] [id number] [place] [address]- 8557 Oct, [facility] [place] [facility] [address] [id number] [place] [address]- 6846 Sep, [facility] [place] [facility] [address] [id number] [place] [address]- 7637 Sep, [facility] [place] [facility] [address] [id number] [place] [address]- 0997 Sep, [facility] [place] [facility] [address] [id number] [place] [address]- 3254 Sep, [facility] [place] [facility] [address] [id number] [place] [address]- 1221 Aug, [facility] [place] [facility] [address] [id number] [place] [address]- 4345 Aug, [facility] [address] [id number] [place] [address]- 7336 Aug, [facility] [address] [id number] [place] [address]- 5356 Aug, [facility] [address] [id number] [place] [address]- 3946 Aug, [facility] [address] [id number] [place] [address]- 9977 Aug, [facility] [address] [id number] [place] [address]- 2006 Aug, [facility] [address] [id number] [place] [address]- 4364 Aug, [facility] [address] [id number] [place] [address]- 7136 Aug, [facility] [address] [id number] [place] [address]- 1335 Jul, [facility] [address] [id number] [place] [address]- 6433 Jul, [facility] [address] [id number] [place] [address]- 0609 Jul, [facility] [address] [id number] [place] [address]- 6414 Jul, [facility] [address] [id number] [place] [address]- 3830 Jul, [facility] [place] [facility] [address] [id number] [place] [address]- 6468 Jul, [facility] [address] [id number] [place] [address]- 9766 Jul, [facility] [address] [id number] [place] [address]- 2056 Jul, [facility] [place] [facility] [address] [id number] [place] [address]- 5959 Jun, [facility] [place] [facility] [address] [id number] [place] [address] Jun, [facility] [place] [facility] [address] [id number] [place] [address] Jun, [facility] [place] [facility] [address] [id number] [place] [address] Jun, [facility] [place] [facility] [address] [id number] [place] [address] Jun, [facility] [place] [facility] [address] [id number] [place] [address] Jun, [facility] [place] [facility] [address] [id number] [place] [address] Jun, [facility] [place] [facility] [address] [id number] [place] [address] Jun, [facility] [place] [facility] [address] [id number] [place] [address] 30 May, 2013 [facility] [place] [facility] [address] [id number] [place] [address] 26 May, 2013 [facility] [place] [facility] [address] [id number] [place] [address] 23 May, 2013 [facility] [place] [facility] [address] [id number] [address] 19 May, 2013 [facility] [place] [facility] [address] [id number] [place] [address] 12 May, 2013 [facility] [place] [facility] [address] [id number] [place] [address] 11 May, 2013 [facility] [place] [facility] [address] [id number] [place] [address] 13 Apr, 2013 [facility] [place] [facility] [address] [id number] [place] [address] Apr, [facility] [place] [facility] [address] [id number] [place] [address] Apr, [facility] [place] [facility] [address] [id number] [place] [address] Apr, [facility] [place] [facility] [address] [id number] [place] [address] Apr, [facility] [place] [facility] [address] [id number] [place] [address] Apr, [facility] [place] [facility] [address] [id number] [place] [address] Apr, [facility] [place] [facility] [address] [id number] [place] [address] Mar, [facility] [place] [facility] [address] [id number] [place] [address] Mar, [facility] [place] [facility] [address] [id number] [place] [address] Mar, [facility] [place] [facility] [address] [id number] [place] [address] Mar, [facility] [place] [facility] [address] [id number] [place] [address] Mar, [facility] [place] [facility] [address] [id number] [place] [address] Mar, [facility] [place] [facility] [address] [id number] [place] [address] Mar, [facility] [place] [facility] [address] [id number] [place] [address] Jan, [facility] [place] [facility] [address] [id number] [place] [address] Jan, [facility] [place] [facility] [address] [id number] [place] [address] Jan, [facility] [place] [facility] [address] [id number] [place] [address] Jan, [facility] [address] [id number] [place] [address] Jan, [facility] [place] [facility] [address] [id number] [place] [address] Jan, [facility] [place] [facility] [address] [id number] [place] [address] Jan, [facility] [place] [facility] [address] [id number] [place] [address] December, [facility] [place] [facility] [address] [id number] [place] [address] December, [facility] [address] [id number] [place] [address] December, [facility] [address] [id number] [place] [address] December, [facility] [address] [id number] [place] [address] Dec, [facility] [place] [facility] [address] [id number] [place] [address] Dec, [facility] [place] [facility] [address] [id number] [place] [address] Dec, [facility] [place] [facility] [address] [id number] [place] [address] Oct, [facility] [place] [facility] [address] [id number] [place] [address] Oct, [facility] [place] [facility] [address] [id number] [place] [address] Oct, [facility] [place] [facility] [address] [id number] [place] [address] Oct, [facility] [place] [facility] [address] [id number] [place] [address] Oct, [facility] [address] [id number] [place] [address] Oct, [facility] [place] [facility] [address] [id number] [place] [address] Oct, [facility] [address] [id number] [place] [address]- [address] Oct, [facility] [place] [facility] [address] [id number] [place] [address] Oct, [facility] [address] [id number] [place] [address]- [address] Oct, [facility] [place] [facility] [address] [id number] [place] [address]- [address] Oct, [facility] [address] [id number] [place] [address]- [address] Sep, [facility] [place] [facility] [address] [id number] [place] [address] Sep, [facility] [address] [id number] [place] [address] Sep, [facility] [address] [id number] [place] [address]- [address] Aug, [facility] [address] [id number] [address] Aug, [facility] [place] [facility] [address] [id number], [place] [address] Aug, [facility] [place] [facility] [address] [id number] [place] [address] Aug, [facility] [place] [facility] [address] [id number] [place] [address] Jul, [facility] [place] [facility] [address] [id number] [place] [address] Jul, [facility] [place] [facility] [address] [id number] [place] [address] 07 Jul, 2012 [facility] [place] [facility] [address] [id number] [place] [address] Jul, [facility] [place] [facility] [address] [id number] [place] [address] Jul, [facility] [place] [facility] [address] [id number] [place] [address] Jul, [facility] [place] [facility] [address] [id number] [place] [address] Jul, [facility] [place] [facility] [address] [id number] [place] [address] Jul, [facility] [place] [facility] [address] [id number] [place] [address]678 Jun, [facility] [place] [facility] [address] [id number] [place] [address] 1466 Jun, [facility] [place] [facility] [address] [id number] [place] [address] 36[address] Jun, [facility] [place] [facility] [address] [id number] [place] [address] 1334 Jun, [facility] [place] [facility] [address] [facility] [id number] [place] [address] Jun, [facility] [place] [facility] [address] [id number] [place] [address] 26 May, 2011 [facility] [place] [facility] [address] [id number] [place] [address]- [address]190 20 Sep, 2011 [facility] [place] [facility] [address] [id number] [place] [address]- 8[address] 18 Sep, 2011 [facility] [place] [facility] [address] [id number] [place] [address]- 27[address] 09 Sep, 2011 [facility] [place] [facility] [address] [id number] [place] [address] May, [facility] [place] [facility] [address] [id number] [place] [address] 4516 Apr, [facility] [place] [facility] [address] [id number] [place] [address] Apr, [facility] [place] [facility] [address] [id number] [place] [address]156 Apr, [facility] [place] [facility] [address] [id number] [place] [address] 8879 Apr, [facility] [place] [facility] [address] [id number] [place] [address]- 4746 Apr, [facility] [place] [facility] [address] [id number] [place] [address]- 4733 Apr, [facility] [place] [facility] [address] [id number] [place] [address]- [address]751 Apr, [facility] [place] [facility] [address] [id number] [place] [address] Mar, [facility] [place] [facility] [address] [id number] [place] [address]646 Mar, [facility] [place] [facility] [address] [id number] [place] [address]- 7728 Mar, [facility] [place] [facility] [address] [id number] [place] [address] 4964 Mar, [facility] [place] [facility] [address] [id number] [place] [address]- 5[address] Jan, [facility] [place] [facility] [address] [id number] [place] [address] Jan, [facility] [place] [facility] [address] [id number] [place] [address]- 4096 Jan, [facility] [place] [facility] [address] [id number] [place] [address]- 3036 Jan, [facility] [place] [facility] [address] [id number] [place] [address] 4528 Jan, [facility] [address] [id number] [place] [address] 6162 Jan, [facility] [place] [facility] [address] [id number] [place] [address]398 December, [facility] [place] [facility] [address] [id number] [place] [address] 2806 December, [facility] [place] [facility] [address] [id number] [place] [address]- 5827 December, [facility] [address] [id number] [place] [address] 3901 December, [facility] [place] [facility] [address] [id number] [place] [address] 7985 Dec, [facility] [address] [id number] [place] [address]- 1477 Dec, [facility] [place] [facility] [address] [id number] [place] [address]127 Oct, [facility] [place] [facility] [address] [id number] [place] [address] 6354 Oct, [facility] [place] [facility] [address] [id number] [place] [address]- 6983 Oct, [facility] [place] [facility] [address] [id number] [place] [address]- 0971 16 Nov, 2011 [facility] [place] [facility] [address] [id number] [place] [address]- [address]22 Oct, [facility] [place] [facility] [address] [id number] [place] [address]001 Oct, [facility] [place] [facility] [address] [id number] [place] [address]- [address]336 05 Nov, 2011 [facility] [place] [facility] [address] [id number] [place] [address]- [address]47 Oct, [facility] [place] [facility] [address] [id number] [place] [address] 9834 Oct, [facility] [address] [id number] [place] [address]- 5892 Oct, [facility] [place] [facility] [address] [id number] [place] [address]- 6896 Oct, [facility] [address] [id number] [place] [address]- 5020 Sep, [facility] [address] [id number] [place] [address]- 0236 Sep, [facility] [address] [id number] [place] [address] 9641 Sep, [facility] [address] [id number] [place] [address]- 9591 Sep, [facility] [address] [id number] [place] [address]- 3619 Sep, [facility] [address] [id number] [place] [address] 4145 Sep, [facility] [address] [id number] [place] [address] 3300 Sep, [facility] [address] [id number] [place] [address]- 0978 Sep, [facility] [address] [id number] [place] [address] 1519 Aug, [facility] [place] [facility] [address] [id number] [place] [address]- 9678 Aug, [facility] [place] [facility] [address] [id number] [place] [address]- [address]236 Aug, [facility] [place] [facility] [address] [id number] [place] [address]- 1566 Jul, [facility] [address] [id number] [place] [address]- 4595 Jul, [facility] [place] [facility] [address] [id number] [place] [address]- 1473 18 Jul, 2011 [facility] [place] [facility] [address] [id number] [place] [address]- 2165 17 Jul, 2011 [facility] [place] [facility] [address] [id number] [place] [address]- 2725 08 Jul, 2011 [facility] [place] [facility] [address] [id number] [place] [address]- 3142 Jul, [facility] [place] [facility] [address] [id number] [place] [address]- 3289 Jun, [facility] [place] [facility] [address] [id number] [place] [address]- 6750 Jun, [facility] [place] [facility] [address] [id number] [place] [address]- 4357 Mar, [facility] [place] [facility] [address] [id number] [place] [address]- 6636 14 Dec, 2010 [facility] [place] [facility] [address] [id number] [place] [address]- 8425 Oct, [facility] [place] [facility] [address] [id number] [place] [address]- 8335 Aug, [facility] [place] [facility] [address] [id number] [place] [address]- 4531 30 Jul, 2010 [facility] [place] [facility] [address] [id number] [place] [address]- 5082 Jul, [facility] [place] [facility] [address] [id number] [place] [address]- 4707 Jul, [facility] [place] [facility] [address] [id number] [place] [address]- 3149 Jul, [facility] [place] [facility] [address] [id number] [place] [address]- 0011 Jul, [facility] [place] [facility] [id number] [address] Aug, [facility] [id number] [address] 15 Aug, 2009 [facility] [id number] [address]226 14 Aug, 2009 [facility] [id number], [place] [address]- 8461 Aug, [facility] [id number], [place] [address]- 3298 17 Jul, 2009 [facility] [address] [id number] [place] [address]- 9073 Jul, [facility] [id number], [place] [address] 0791 Jul, [facility] [id number], [place] [address]- 0128 Jul, [facility] [id number], [place] [address]- 6[address] Jun, [facility] [id number], [place] [address] 9121 Jun, IMMUNIZATIONS No Known Immunizations SOCIAL HISTORY Never Assessed REASON FOR VISIT Dental Screening PLAN OF CARE Activity Details Follow Up prn Reason:dental examination VITAL SIGNS MEDICATIONS Unknown Medications RESULTS No Results PROCEDURES Procedure Date Ordered Result Body Site SCREENING OF A PATIENT Sep 04, 2017 Billing Notes on claim Sep 04, 2017 INSTRUCTIONS MEDICATIONS ADMINISTERED No [...]
--- OUTSIDE RECORDS SUMMARY | 2018-03-17 11:12 | XMS REPORT ---
Author Author 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 Organization [facility] Address [address] [place] [address] Care Team Providers Care Interactive Media Specialist Name Role Phone 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 Unavailable PROBLEMS Type Condition ICD9-CM Code [id number] Code Onset Dates Condition Status SNOMED Code Problem 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 Active 84956337 Problem Attention-deficit hyperactivity disorder, predominantly inattentive type F90.0 Active 61156913 Problem Obstructive sleep apnea G47.33 Active 80937723 Problem Primary insomnia F51.01 Active 9356494 Problem Neuralgia M79.2 Active 11579946 Problem Cannabis use disorder, mild, abuse F12.10 Active 52043085 Problem Folic acid deficiency E53.8 Active 659211038 Problem Restless legs G25.81 Active 64087761 Problem Major depressive disorder, recurrent, mild F33.0 Active 09432348 Problem Generalized anxiety disorder F41.1 Active 66903616 Problem Major depressive disorder, recurrent episode, moderate F33.1 Active 306175671 Problem Hypertension I10 Active 53138846 Problem Hyperlipidemia E78.5 Active 88220059 Problem Primary osteoarthritis of both knees M17.0 Active 502002401 Problem Chronic hepatitis K73.9 Active 52976211 Problem Low back pain M54.5 Active 335304462 Problem Chronic viral hepatitis B without delta-agent B18.1 Active 508353506 Problem Insomnia G47.00 Active 407662063 Problem Hypothyroid E03.9 Active 89720944 Problem Depression, major, recurrent, mild F33.0 Active 805127992 Problem Obesity due to excess calories, unspecified obesity severity E66.09 Active 192937169 ALLERGIES No Information ENCOUNTERS Encounter Location Date Diagnosis [facility] [address] [facility] [id number] [address] December, [facility] [address] [facility] [id number] [place] [address] December, [facility] [id number] [place] [address] 94241- 0262 Dec, Bone pain M89.8X9 [facility] [id number] [place] [address] 65520- 2464 Dec, [facility] [address] 46828- 4518 Oct, [facility] [address] 49711- 7338 Oct, Syncope, unspecified syncope type R55 ; Primary insomnia F51.01 ; Dry mouth R68.2 and Cannabis use disorder, mild, abuse F12.10 [facility] [id number] [place] [address] 52657- 1317 Oct, [facility] [address] 88580- 6421 Sep, [facility] [address] 52274- 7798 Sep, [facility] [address] 50767- 0389 Sep, [facility] [id number] [place] [address] [id number] Sep, Dental examination Z01.20 [facility] [address] 70986- 2344 Sep, Dental examination Z01.20 [facility] [id number] [place] [address] 26997- 9491 Sep, Sinus congestion R09.81 ; Mouth sores K13.79 ; Low back pain M54.5 and Mouth swelling R22.0 [facility] [id number] [place] [address] 32184- 8367 Aug, Low back pain M54.5 [facility] [address] 59313- 8454 Aug, Low back pain M54.5 [place] [id number] [address]14- 0479 Jul, [place] [address] [place] 959398- 0449 Jul, 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 ; Encounter for immunization Z23 ; Hypothyroid E03.9 ; Decreased renal function N28.9 and Muscle cramps R25.2 [place] [address] 32698- 7511 Jul, [place] [address] 46342- 2669 Jul, [place] [address] 59076- 0764 Jul, [address] 28842- 0136 Jul, Major depressive disorder, recurrent, mild F33.0 [place] [address] 85687- 4009 Jul, Acquired cyst of kidney N28.1 ; Acidosis E87.2 and Hyperkalemia E87.[address] 25110- 7786 Jul, Major depressive disorder, recurrent, mild F33.0 ; Attention -deficit hyperactivity disorder, predominantly inattentive type F90.0 and Generalized anxiety disorder F41.1 [place] [id number] [place] [address] 23405- 0220 Jul, Low back pain M54.[address] 89070- 3685 Jun, Cough R05 ; Low back pain M54.5 and Pre-syncope R55 [address] 96969- 9820 Jun, Low back pain M54.[address] [facility] [address] [place] [id number] 04 Jun, 2017 Dental caries K02.9 [facility] [id number] [place] [address] 78200- 0140 Jun, [facility] [id number] [place] [address] 32988- 1972 Jun, Major depressive disorder, recurrent, mild F33.0 ; Attention -deficit hyperactivity disorder, predominantly inattentive type F90.0 and Generalized anxiety disorder F41.1 [facility] [id number] [place] [address] 73262- 6572 13 May, 2017 Vertigo R42 ; Confusion R41.0 ; Weakness R53.1 and Vision changes H53.9 [facility] [id number] [place] [address] 65829- 5532 May, [facility] [id number] [place] [address] 52008- 3001 May, [facility] [id number] [place] [address] 18139- 3725 08 May, 2017 Low back pain M54.5 [facility] [id number] [place] [address] 26561- 9357 05 May, 2017 Major depressive disorder, recurrent, mild F33.0 ; Attention -deficit hyperactivity disorder, predominantly inattentive type F90.0 and Generalized anxiety disorder F41.1 [facility] [address] [place] [address] 25656- 9924 May, [facility] [id number] [place] [address] 77047- 6449 May, Acute worsening of stage 3 chronic kidney disease N18.3 [facility] [id number] [place] [address] 15516- 3748 Apr, [facility] [id number] [place] [address] 34941- 3387 14 Aug, 2017 Acute allergic rhinitis due to pollen, unspecified seasonality J30.1 ; Restless legs G25.81 and Low back pain M54.5 [facility] [address] 92568- 1935 10 Apr, 2017 Primary osteoarthritis of both knees M17.0 [facility] [address] 20757- 4045 Apr, Generalized anxiety disorder F41.1 [facility] [address] 77566- 8611 Apr, Major depressive disorder, recurrent, mild F33.0 ; Attention -deficit hyperactivity disorder, predominantly inattentive type F90.0 and Generalized anxiety disorder F41.1 [facility] [address] 58700- 4995 Apr, [facility] [address] 05447- 9312 Mar, Major depressive disorder, recurrent episode, moderate F33.1 ; Generalized anxiety disorder F41.1 and ADHD, predominantly inattentive type F90.0 [facility] [address] 532[address] -[address]386 Mar, Abscess L02.91 [facility] [address] 19048- 4661 Mar, 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 [facility] [address] 85276- 4047 Mar, Decreased renal function N28.[address] [facility] [address] [id number] Mar, Dental examination Z01.20 [facility] [address] 66456- 6599 17 Mar, 2017 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 [facility] [address] 45050- 7793 Mar, 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 [facility] [address] [id number] 14 Mar, 2017 Dental examination Z01.20 and Dental caries K02.9 [place] [id number] [place] [address] 26778- 9826 Mar, Chronic viral hepatitis B without delta-agent B18.1 ; Folic acid deficiency E53.8 ; 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 and Decreased renal function N28.9 [place] [id number] [place] [address] 30844- 2879 Mar, Major depressive disorder, recurrent, mild F33.0 [place] [id number] [place] [address] 98435- 0823 Mar, [place] [id number] [place] [address] 46257- 2168 Mar, Chronic hepatitis K73.9 ; 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 ; Localized edema R60.0 ; Illicit drug use F19.90 ; Vision changes H53.9 and Obesity due to excess calories, unspecified obesity severity E66.09 [place] [id number] [place] [address] 46641- 7683 Jan, Major depressive disorder, recurrent, mild F33.0 [place] [id number] [place] [address] 54888- 0407 Jan, Chronic viral hepatitis B without delta-agent B18.1 [place] [id number] [place] [address] 21686- 5069 Jan, [place] [id number] [place] [address] 66032- 8730 Jan, Weight gain R63.5 ; Hypothyroid E03.9 ; 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 ; Decreased renal function N28.9 and Chronic viral hepatitis B without delta-agent B18.1 [place] [id number] [place] [address] 34993- 0217 December, Major depressive disorder, recurrent, mild F33.0 and Generalized anxiety disorder F41.1 [place] [id number] [address]- 0185 December, Obesity due to excess calories, unspecified obesity severity E66.09 and Folic acid deficiency E53.8 [facility] [address] [place] [address] 72223- 0237 December, Folic acid deficiency E53.8 [facility] [id number] [place] [address] 99866- 4850 December, Folic acid deficiency E53.8 [facility] [address] [place] [address] 07429- 9404 December, Obesity due to excess calories, unspecified obesity severity E66.09 [place] [id number] [place] [address] 75221- 5663 December, [place] [id number] [place] [address] 56843- 7549 December, Folic acid deficiency E53.[address] [facility] [id number] [place] [address] [id number] December, Encounter for other administrative examinations Z02.89 [place] [id number] [place] [address] 62612- 5695 Dec, [facility] [id number] [place] [address] [id number] Dec, Dental caries K02.9 [place] [address] [place] [address] 58193- 0178 Oct, Bone pain M89.8X9 [place] [id number] [place] [address] 05117- 1802 Oct, Hypothyroid E03.9 [place] [address] [place] [address] 36590- 0726 24 Oct, 2016 Hypothyroid E03.9 [place] [id number] [place] [address] 02074- 6469 13 Mar, 2017 Breast cancer screening Z12.[address] [facility] [id number] [id number] 08 Oct, 2016 Dental examination Z01.20 [place] [id number] [place] [address] 86497- 2345 Oct, [place] [id number] [place] [address] 45142- 8881 Oct, Major depressive disorder, recurrent, mild F33.0 and Generalized anxiety disorder F41.1 [place] [address] [place] [address] 48975- 6986 Oct, [place] [id number] [place] [address] 87962- 6208 Oct, Hypothyroid E03.9 [place] [id number] [place] [address] 43806- 7754 Sep, Hypothyroid E03.9 ; Chronic viral hepatitis B without delta- agent B18.1 and Folic acid deficiency E53.8 [place] [address] [place] [address] 26099- 6593 Sep, Hypothyroidism, unspecified type E03.9 ; Elevated parathyroid hormone E34.9 and Chronic viral hepatitis B without delta-agent B18.1 [place] [id number] [place] [address] 56562- 9825 Sep, [place] [id number] [place] [address] 00760- 4259 Sep, Elevated parathyroid hormone E34.9 [place] [address] [place] [address] 83091- 1496 Sep, [place] [id number] [place] [address] 43928- 5190 Sep, Chronic hepatitis K73.9 ; Bone pain M89.8X9 and Abnormal complete blood count R79.89 [place] [id number] [place] [address] 56835- 2793 Aug, Major depressive disorder, recurrent, mild F33.0 [facility] [id number] [place] [address] 57214- 1534 Aug, Bone pain M89.8X9 [facility] [id number] [place] [address] 58411- 5526 Aug, [facility] [address] 71085- 2892 Jul, Chronic viral hepatitis B without delta-agent B18.1 [place] [address] 39921- 6643 Jul, Hypothyroidism, unspecified type E03.9 [facility] [id number] [place] [address] 42254- 6457 Jul, [place] [address] 17543- 6056 Jul, Chronic hepatitis K73.9 and Hypothyroid E03.9 [facility] [id number] [place] [address] 33057- 7939 Jul, Low back pain M54.5 [place] [id number] [place] [address] 22379- 5248 Jun, Depression, major, recurrent, mild F33.0 and ADD (attention deficit disorder) F90.0 [facility] [id number] [place] [address] 88209- 6286 Jun, [facility] [id number] [place] [address] 12094- 8868 Jun, Low back pain M54.5 [facility] [address] 28901- 7985 Jun, Encounter for immunization Z23 ; Major depressive disorder, recurrent, mild F33.0 and Attention-deficit hyperactivity disorder, predominantly inattentive type F90.0 [facility] [id number] [place] [address] 55454- 0860 Jun, [facility] [id number] [place] [address] 25132- 4539 Jun, Low back pain M54.5 [facility] [id number] [place] [address] 44851- 8361 May, [facility] [id number] [place] [address] 82710- 5902 May, [facility] [id number] [place] [address] 48235- 2191 May, Essential (primary) hypertension I10 [facility] [id number] [place] [address] 78760- 1890 May, Low back pain M54.5 [facility] [id number] [place] [address] 98936- 1664 May, Low back pain M54.5 ; Chronic hepatitis K73.9 and Hypothyroid E03.9 [facility] [id number] [place] [address] 09930- 4960 09 May, 2016 Hypothyroidism, unspecified type E03.9 [facility] [id number] [place] [address] 24183- 1632 08 May, 2016 Low back pain M54.5 [facility] [id number] [place] [address] 88699- 4074 May, [facility] [id number] [place] [address] 34053- 1711 May, [facility] [id number] [place] [address] 36355- 7704 May, Major depressive disorder, recurrent, moderate F33.1 ; Generalized anxiety disorder F41.1 ; Insomnia G47.00 and ADD (attention deficit disorder) F90.0 [facility] [id number] [place] [address] 06485- 1785 Apr, Low back pain M54.5 [place] [id number] [address]- 7963 Apr, [place] [id number] [place] [address] 13354- 2994 Apr, Low back pain M54.5 [place] [id number] [place] [address] 60865- 7291 Apr, Low back pain M54.5 ; Tooth pain K08.8 and Seasonal allergic rhinitis due to pollen J30.1 [place] [id number] [place] [address] 81930- 1389 Apr, Low back pain M54.5 [place] [id number] [place] [address] 13491- 3788 Apr, [facility] Pap smear of vagina R87.622 [place] [id number] [place] [address] 23684- 3619 Apr, Low back pain M54.5 [place] [id number] [place] [address] 60064- 2069 Mar, [place] [id number] [place] [address] 71593- 3801 Mar, Low back pain M54.5 [place] [id number] [place] [address] 92383- 6143 Mar, Encounter for Papanicolaou smear for cervical cancer screening Z12.4 ; Encounter for routine gynecological examination Z01.419 and Breast cancer screening Z12.39 [place] [id number] [place] [address] 23992- 2981 18 Mar, 2016 Hypothyroidism, unspecified type E03.9 [place] [id number] [place] [address] 06253- 7444 14 Mar, 2016 Low back pain M54.5 ; Other chronic pain G89.29 ; Hypothyroid E03.9 and Hypothyroidism, unspecified type E03.9 [place] [id number] [place] [address] 40819- 6259 Mar, Major depressive disorder, recurrent, moderate F33.1 and Attention-deficit hyperactivity disorder, predominantly inattentive type F90.0 [facility] [id number] [place] [address] 33577 -3044 Mar, Bronchitis J40 [facility] [id number] [place] [address] 22815- 0915 Jan, [facility] [id number] [place] [address] 20057- 0015 Jan, [facility] [id number] [place] [address] 25698- 6976 Jan, Insomnia G47.00 [facility] [id number] [place] [address] 84063- 8228 December, [facility] [id number] [place] [address] 99143- 5732 December, Major depressive disorder in partial remission F32.4 and Attention-deficit hyperactivity disorder, unspecified type F90.9 [facility] [id number] [place] [address] 75026- 7072 December, [facility] [id number] [place] [address] 87155- 8670 December, [facility] [id number] [place] [address] 79227- 3579 Dec, [facility] [id number] [place] [address] 43203- 0556 Dec, Major depressive disorder, recurrent episode, moderate 296.32 and Attention deficit disorder of childhood without mention of hyperactivity 314.00 [place] [id number] [place] [address] 80685- 2303 Dec, Major depressive disorder, recurrent episode, mild 296.31 ; ADD (attention deficit disorder) F90.0 and Hyperlipidemia E78.5 [facility] [id number] [place] [address] 79215- 2631 Dec, Insomnia G47.00 [facility] [address] [address]- 9448 Dec, Attention-deficit hyperactivity disorder, predominantly inattentive type F90.0 [facility] [address] [address]- 4661 Oct, Restless legs syndrome G25.81 [facility] [id number] [place] [phone] Oct, Hypothyroidism, unspecified type E03.9 [facility] [id number] [place] [phone] Oct, [facility] [id number] [place] [phone] Oct, [facility] [id number] [place] [phone] 15 Nov, 2015 Hypothyroid E03.9 and Chronic hepatitis K73.9 [facility] [id number] [address] Oct, [facility] [id number] [place] [phone] 08 Nov, 2015 Restless legs syndrome G25.81 ; Chronic hepatitis K73.9 ; Hypertension I10 ; Hypothyroid E03.9 and Breast cancer screening Z12.39 [facility] [id number] [address] Oct, [facility] [id number] [address] Oct, [facility] [id number] [address] Oct, [facility] [id number] [address] Oct, [facility] [id number] [address] Oct, [facility] [id number] [address] Oct, [facility] [id number] [place] [phone] Oct, [facility] [id number] [place] [phone]- [phone] Sep, [facility] [id number] [place] [address] 78150- 4625 Sep, Attention-deficit hyperactivity disorder, predominantly inattentive type F90.0 and Major depressive disorder in partial remission F32.4 [facility] [id number] [place] [address] 42633- 7255 Sep, [facility] [id number] [place] [address] 69077- 7358 Aug, [facility] [id number] [place] [address] 40700- 2993 Aug, [facility] [id number] [place] [address] 10194- 3332 Aug, Major depressive disorder, recurrent, mild F33.0 ; Attention -deficit hyperactivity disorder, unspecified type F90.9 and Generalized anxiety disorder F41.1 [facility] [id number] [address] 0705 Aug, Chronic hepatitis K73.9 ; Primary osteoarthritis of both knees M17.0 and Neuralgia M79.2 [facility] [address] [address] 9306 Jul, [facility] [id number] [place] [address] 61246- 1058 Jul, [facility] [address] [address] 1331 Jul, [facility] [id number] [place] [address] 26507- 4170 Jul, [facility] [id number] [place] [address] 68870- 4984 Jun, [facility] [id number] [place] [address] 23318- 8528 Jun, Bronchitis J40 and Encounter for immunization Z23 [facility] [address] [address]- 3989 30 May, 2015 [facility] [id number] [place] [address] 93797- 4963 12 May, 2015 [facility] [address] 43841- 9964 May, [facility] [id number] [place] [address] 70009- 3079 May, Hypokalemia 276.8 [facility] [id number] [place] [address] 28162- 4261 08 May, 2015 Major depressive disorder, recurrent episode, mild 296.31 ; Attention deficit disorder of childhood without mention of hyperactivity 314.00 and Generalized anxiety disorder 300.02 [facility] [id number] [place] [address] 48691- 2979 May, Hypertension 401.9 and Hypokalemia 276.8 [facility] [id number] [place] [address] 36498- 4253 May, [facility] [id number] [place] [address] 21108- 9484 Apr, [facility] [id number] [place] [address] 22252- 6819 Apr, [facility] [id number] [place] [address] 97325- 0085 Apr, [facility] [id number] [place] [address] 75676- 1156 Apr, [facility] [address] [address]- 1042 Mar, [facility] [id number] [place] [address] 74652- 1037 Mar, [facility] [id number] [place] [address] 83191- 6617 Mar, [facility] [id number] [place] [address] 33564- 0819 Mar, [facility] [id number] [place] [address] 63395- 3439 Mar, Arthritis of both knees 716.96 ; Hepatitis B 070.30 ; Hypertension 401.9 ; Carpal tunnel syndrome 354.0 and Cubital tunnel syndrome 354.2 [facility] [id number] [place] [address] 87093- 1400 Mar, [facility] [id number] [place] [address] 89560- 0939 Mar, [facility] [id number] [place] [address] 20245- 4561 Mar, 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, chronic, without mention of hepatitis delta 070.32 ; Chronic hepatitis C without mention of hepatic coma 070.54 and Major depressive disorder, recurrent episode, moderate 296.32 [facility] [address] [address]- 8373 Jan, [facility] [id number] [place] [address] 35305- 2140 Jan, Major depressive disorder, recurrent episode, mild 296.31 and Attention deficit disorder of childhood without mention of hyperactivity 314.00 [facility] [id number] [place] [address] 23216- 5092 Jan, [facility] [id number] [place] [address] 80714- 9995 Jan, [facility] [id number] [place] [address] 64424- 0060 December, Attention deficit disorder of childhood without mention of hyperactivity 314.00 ; Major depressive disorder, recurrent episode, mild 296.31 and Generalized anxiety disorder 300.02 [facility] [address] [facility] [id number] [address]- 2469 08 Dec, 2014 [facility] [address] [id number] [address]- 1990 14 Dec, 2014 [facility] [address] [facility] [id number] [address]- 0678 Dec, [facility] [id number] [address]- 4674 19 Oct, 2014 [facility] [address] [id number] [address]- 5945 19 Oct, 2014 [facility] [id number] [address]- 7236 18 Oct, 2014 [facility] [address] [id number] [address]- 2830 18 Oct, 2014 [facility] [address] [id number] [address]- 8037 18 Oct, 2014 [facility] [id number] [address]- 1296 18 Oct, 2014 [facility] [address] [id number] [address]- 0820 16 Oct, 2014 [facility] [address] [id number] [address]- 3195 13 Oct, 2014 [facility] [address] [id number] [address]- 0395 13 Oct, 2014 [facility] [address] [id number] [address]- 4264 Oct, [facility] [address] [id number] [address] 8374 Oct, [facility] [address] [id number] [place] [address]- 3237 10 Oct, 2014 [facility] [place] [facility] [address] [id number] [place] [address]- 7506 10 Oct, 2014 [facility] [place] [facility] [address] [id number] [place] [address]- 8181 05 Oct, 2014 [facility] [place] [facility] [address] [facility] [id number] [place] [address]- 9965 05 Oct, 2014 [facility] [place] [facility] [address] [id number] [place] [address]- 8608 Oct, 2014 [facility] [place] [facility] [address] [id number] [place] [address]- 7682 Oct, 2014 [facility] [place] [facility] [address] [facility] [id number] [place] [address]- 9515 25 Oct, 2014 [facility] [place] [facility] [address] [facility] [id number] [place] [address]- 5679 19 Oct, 2014 [facility] [place] [facility] [address] [facility] [id number] [place] [address]- 0048 18 Oct, 2014 [facility] [place] [facility] [address] [facility] [id number] [place] [address]- 8838 17 Oct, 2014 [facility] [place] [facility] [address] [facility] [id number] [place] [address]- 7473 17 Oct, 2014 [facility] [place] [facility] [address] [facility] [id number] [place] [address]- 2177 Oct, 2014 [facility] [place] [facility] [address] [facility] [id number] [place] [address]- 0611 11 Oct, 2014 [facility] [place] [facility] [address] [facility] [id number] [place] [address]- 6225 Oct, 2014 [facility] [place] [facility] [address] [facility] [id number] [place] [address]- 0487 11 Oct, 2014 [facility] [place] [facility] [address] [facility] [id number] [place] [address]- 8023 Oct, [facility] [address] [id number] [place] [address]- 1499 Oct, [facility] [place] [facility] [address] [id number] [place] [address]- 0051 Sep, [facility] [place] [facility] [address] [id number] [place] [address]- 0248 Sep, [facility] [place] [facility] [address] [id number] [place] [address]- 5610 Sep, [facility] [place] [facility] [address] [id number] [place] [address]- 7382 Sep, [facility] [place] [facility] [address] [id number] [place] [address]- 0256 Sep, [facility] [address] [id number] [place] [address]- 5759 Sep, [facility] [place] [facility] [address] [id number] [place] [address]- 1259 Sep, [facility] [place] [facility] [address] [id number] [place] [address]- 0157 Sep, [facility] [place] [facility] [address] [id number] [place] [address]- 8212 Sep, [facility] [place] [facility] [address] [id number] [place] [address]- 2806 Sep, [facility] [place] [facility] [address] [id number] [place] [address]- 4674 Sep, [facility] [place] [facility] [address] [id number] [place] [address]- 6365 Sep, [facility] [place] [facility] [address] [id number] [place] [address]- 7583 Sep, [facility] [place] [facility] [address] [id number] [place] [address]- 5441 Sep, [facility] [place] [facility] [address] [id number] [place] [address]- 8241 Sep, [facility] [place] [facility] [address] [id number] [place] 2961 Sep, [facility] [place] [facility] [address] [id number] [place] 5174 Aug, [facility] [place] [facility] [address] [id number] [place] [address]- 6766 Aug, [facility] [place] [facility] [address] [id number] [place] [address]- 8788 Aug, [facility] [place] [facility] [address] [id number] [place] [address]- 8533 Aug, [facility] [place] [facility] [address] [id number] [place] [address]- 0391 Aug, [facility] [place] [facility] [address] [id number] [place] [address]- 3551 Aug, [facility] [place] [facility] [address] [id number] [place] [address]- 7929 Aug, [facility] [place] [facility] [address] [id number] [place] [address]- 5134 Aug, [facility] [place] [facility] [address] [id number] [place] [address]- 0993 19 Aug, 2014 [facility] [place] [facility] [address] [id number] [place] [address]- 3699 18 Aug, 2014 [facility] [place] [facility] [address] [id number] [place] [address]- 3721 18 Aug, 2014 [facility] [place] [facility] [address] [id number] [place] 8106 16 Aug, 2014 [facility] [place] [facility] [address] [id number] [place] [address]- 9976 16 Aug, 2014 [facility] [place] [facility] [address] [id number] [place] [address]- 0811 15 Aug, 2014 [facility] [place] [facility] [address] [id number] [place] [address]- 9821 15 Aug, 2014 [facility] [place] [facility] [address] [id number] [place] [address]- 6502 Aug, [facility] [place] [facility] [address] [id number] [place] [address]- 5315 Aug, [facility] [place] [facility] [address] [id number] [place] [address]- 7451 Aug, [facility] [place] [facility] [address] [id number] [place] [address]- 3375 Aug, [facility] [place] [facility] [address] [id number] [place] [address]- 1205 Aug, [facility] [place] [facility] [address] [id number] [place] [address]- 8675 Aug, [facility] [place] [facility] [address] [id number] [place] [address]- 2219 Aug, [facility] [place] [facility] [address] [id number] [place] [address]- 3492 Aug, [facility] [place] [facility] [address] [id number] [place] [address]- 9871 Aug, [facility] [place] [facility] [address] [id number] [place] [address]- 9040 Aug, [facility] [place] [facility] [address] [id number] [place] [address]- 0039 Jul, [facility] [place] [facility] [address] [id number] [place] [address]- 7902 Jul, [facility] [place] [facility] [address] [id number] [place] [address]- 3515 Jul, [facility] [place] [facility] [address] [id number] [place] [address]- 6854 Jul, [facility] [place] [facility] [address] [id number] [place] [address]- 9608 Jul, [facility] [place] [facility] [address] [id number] [place] [address]- 2856 Jul, [facility] [place] [facility] [address] [id number] [place] [address]- 4502 Jun, [facility] [place] [facility] [address] [id number] [place] [address]- 5309 Jun, [facility] [place] [facility] [address] [id number] [place] [address]- 9630 Jun, [facility] [place] [facility] [address] [id number] [place] [address]- 7349 Jun, [facility] [place] [facility] [address] [id number] [place] [address]- 6571 Jun, [facility] [place] [facility] [address] [id number] [place] [address]- 1814 Jun, [facility] [place] [facility] [address] [id number] [place] [address]- 2853 Jun, [facility] [place] [facility] [address] [id number] [place] [address]- 5870 Jun, [facility] [place] [facility] [address] [id number] [place] [address]- 7004 16 May, 2013 [facility] [place] [facility] [address] [id number] [place] [address]- 4998 16 May, 2013 [facility] [place] [facility] [address] [id number] [place] [address]- 5377 15 May, 2013 [facility] [place] [facility] [address] [id number] [place] [address]- 9545 15 May, 2013 [facility] [place] [facility] [address] [id number] [place] [address]- 6313 08 May, 2013 [facility] [place] [facility] [address] [id number] [place] [address]- 0009 May, [facility] [place] [facility] [address] [id number] [place] [address]- 0652 May, [facility] [place] [facility] [address] [id number] [place] [address]- 8207 May, [facility] [place] [facility] [address] [id number] [place] [address]- 7478 Apr, [facility] [place] [facility] [address] [id number] [place] [address]- 5351 Apr, [facility] [place] [facility] [address] [id number] [place] [address]- 8039 Apr, [facility] [place] [facility] [address] [id number] [place] [address]- 6870 Apr, [facility] [place] [facility] [address] [id number] [place] [address]- 2665 Apr, [facility] [place] [facility] [address] [id number] [place] [address]- 2382 Apr, [facility] [place] [facility] [address] [id number] [place] [address]- 1605 Apr, [facility] [place] [facility] [address] [id number] [place] [address]- 3883 Apr, [facility] [place] [facility] [address] [id number] [place] [address]- 7150 Apr, [facility] [place] [facility] [address] [id number] [place] [address]- 0987 Apr, [facility] [place] [facility] [address] [id number] [place] [address]- 7932 Apr, [facility] [place] [facility] [address] [id number] [place] [address]- 2458 Apr, [facility] [place] [facility] [address] [id number] [place] [address]- 8241 Apr, [facility] [place] [facility] [address] [id number] [place] [address]- 6349 Mar, [facility] [place] [facility] [address] [id number] [place] [address]- 3171 Mar, [facility] [place] [facility] [address] [id number] [place] [address]- 5689 Mar, [facility] [place] [facility] [address] [id number] [place] [address]- 6754 Mar, [facility] [place] [facility] [address] [id number] [place] [address]- 2881 Jan, [facility] [place] [facility] [address] [id number] [place] [address]- 1194 Jan, [facility] [place] [facility] [address] [id number] [place] [address]- 7819 December, [facility] [place] [facility] [address] [id number] [place] [address]- 8020 December, [facility] [place] [facility] [address] [id number] [place] [address]- 0320 December, [facility] [place] [facility] [address] [id number] [place] [address]- 0240 December, [facility] [place] [facility] [address] [id number] [place] [address]- 5039 December, [facility] [place] [facility] [address] [id number] [place] [address]- 6769 December, [facility] [place] [facility] [address] [id number] [place] [address]- 2183 December, [facility] [place] [facility] [address] [id number] [place] [address]- 5929 December, [facility] [place] [facility] [address] [id number] [place] [address]- 7131 Dec, [facility] [place] [facility] [address] [id number] [place] [address]- 3680 Dec, [facility] [place] [facility] [address] [id number] [place] [address]- 3370 Dec, [facility] [place] [facility] [address] [id number] [place] [address]- 0776 Dec, [facility] [place] [facility] [address] [id number] [place] [address]- 4296 Oct, [facility] [place] [facility] [address] [id number] [place] [address]- 3750 Oct, [facility] [place] [facility] [address] [id number] [place] [address]- 1278 Oct, [facility] [place] [facility] [address] [id number] [place] [address]- 7893 Oct, [facility] [place] [facility] [address] [id number] [place] [address]- 5686 Oct, [facility] [place] [facility] [address] [id number] [place] [address]- 8529 Oct, [facility] [place] [facility] [address] [id number] [place] [address]- 1249 Oct, [facility] [place] [facility] [address] [id number] [place] [address]- 1137 Oct, [facility] [place] [facility] [address] [id number] [place] [address]- 9773 Oct, [facility] [place] [facility] [address] [id number] [place] [address]- 5104 Oct, [facility] [place] [facility] [address] [id number] [place] [address]- 9002 Oct, [facility] [place] [facility] [address] [id number] [place] [address] Oct, [facility] [place] [facility] [address] [id number] [place] [address] Oct, [facility] [place] [facility] [address] [id number] [place] [address] 10 Oct, 2013 [facility] [place] [facility] [address] [id number] [place] [address] Oct, [facility] [place] [facility] [address] [id number] [place] [address] Oct, 2013 [facility] [place] [facility] [address] [id number] [place] [address] Oct, 2013 [facility] [place] [facility] [address] [id number] [place] [address] Oct, 2013 [facility] [place] [facility] [address] [id number] [place] [address] Oct, [facility] [place] [facility] [address] [id number] [place] [address] Oct, [facility] [place] [facility] [address] [facility] [id number] [place] [address] Oct, [facility] [place] [facility] [address] [id number] [place] [address] Oct, [facility] [place] [facility] [address] [facility] [id number] [place] [address] Sep, [facility] [place] [facility] [address] [facility] [id number] [place] [address]- [address] Sep, [facility] [place] [facility] [address] [facility] [id number] [place] [address] Sep, [facility] [place] [facility] [address] [id number] [place] [address] Sep, [facility] [place] [facility] [address] [id number] [place] [address] Aug, [facility] [place] [facility] [address] [id number] [place] [address] Aug, [facility] [place] [facility] [address] [facility] [id number] [place] [address]- [address] Aug, [facility] [place] [facility] [address] [id number] [place] [address] Aug, [facility] [place] [facility] [address] [id number] [place] [address] Aug, [facility] [place] [facility] [address] [id number] [place] [address] Aug, [facility] [place] [facility] [address] [id number] [place] [address] Aug, [facility] [place] [facility] [address] [id number] [place] [address] Aug, [facility] [place] [facility] [address] [id number] [place] [address] Aug, [facility] [place] [facility] [address] [id number] [place] [address] Jul, [facility] [place] [facility] [address] [id number] [place] [address] Jul, [facility] [place] [facility] [address] [id number] [place] [address] Jul, [facility] [place] [facility] [address] [id number] [place] [address] Jul, [facility] [place] [facility] [address] [id number] [place] [address] Jul, [facility] [place] [facility] [address] [id number] [place] [address] Jul, [facility] [place] [facility] [address] [id number] [place] [address] Jul, [facility] [place] [facility] [address] [id number] [place] [address] Jul, [facility] [place] [facility] [address] [id number] [place] [address] Jun, [facility] [place] [facility] [address] [id number] [place] [address] Jun, [facility] [place] [facility] [address] [id number] [place] [address] Jun, [facility] [place] [facility] [address] [id number] [place] [address]- [address] Jun, [facility] [place] [facility] [address] [id number] [place] [address]- [address] Jun, [facility] [place] [facility] [address] [id number] [place] [address] Jun, [facility] [place] [facility] [address] [id number] [place] [address] Jun, [facility] [place] [facility] [address] [id number] [place] [address]- [address] Jun, [facility] [place] [facility] [address] [id number] [place] [address] 30 May, 2013 [facility] [place] [facility] [address] [id number] [place] [address]- [address] 26 May, 2013 [facility] [place] [facility] [address] [id number] [place] [address]- [address] 23 May, 2013 [facility] [place] [facility] [address] [id number] [place] [address]- [address] 19 May, 2013 [facility] [place] [facility] [address] [id number] [place] [address] 12 May, 2013 [facility] [place] [facility] [address] [id number] [place] [address] May, [facility] [place] [facility] [address] [id number] [place] [address] Apr, [facility] [place] [facility] [address] [id number] [place] [address] Apr, [facility] [place] [facility] [address] [id number] [place] [address]- [address] Apr, [facility] [place] [facility] [address] [id number] [place] [address] Apr, [facility] [address] [id number] [place] [address]- [address] Apr, [facility] [place] [facility] [address] [id number] [place] [address]- [address] Apr, [facility] [address] [id number] [place] [address] Apr, [facility] [place] [facility] [address] [id number] [place] [address] Mar, [facility] [address] [id number] [place] [address]- [address] Mar, [facility] [address] [address] [id number] [place] [address] Mar, [facility] [place] [facility] [address] [id number] [place] [address] Mar, [facility] [address] [id number] [place] [address] Mar, [facility] [place] [facility] [address] [id number] [place] [address] Mar, [facility] [address] [id number] [place] [address] Mar, [facility] [place] [facility] [address] [id number] [place] [address] Jan, [facility] [place] [facility] [address] [id number] [place] [address] Jan, [facility] [place] [facility] [address] [id number] [place] [address] 1995 Jan, [facility] [place] [facility] [address] [id number] [place] [address] Jan, [facility] [place] [facility] [address] [id number] [place] [address] Jan, [facility] [address] [id number] [place] [address] 3[address] Jan, [facility] [address] [id number] [place] [address] 1096 Jan, [facility] [address] [id number] [place] [address]239 December, [facility] [place] [facility] [address] [id number] [place] [address] 2016 December, [facility] [address] [id number] [place] [address] 134[address] December, [facility] [address] [id number] [place] [address] 4066 December, [facility] [address] [id number] [place] [address]- 0927 Dec, [facility] [address] [id number] [place] [address] 8142 Dec, [facility] [address] [id number] [place] [address] 9983 Dec, [facility] [address] [id number] [place] [address]- 0167 Oct, [facility] [place] [facility] [address] [id number] [place] [address] 9147 Oct, [facility] [place] [facility] [address] [id number] [place] [address] Oct, [facility] [place] [facility] [address] [id number] [place] [address]- 7374 Oct, [facility] [place] [facility] [address] [id number] [place] [address]- 4240 Oct, [facility] [place] [facility] [address] [id number] [place] [address] Oct, [facility] [place] [facility] [address] [id number] [place] [address] Oct, [facility] [address] [id number] [place] [address]- [address]576 Oct, [facility] [address] [id number] [place] [address]- 1456 Oct, [facility] [address] [id number] [place] [address] 2546 08 Oct, 2012 [facility] [place] [facility] [address] [id number] [place] [address]- [address]386 Oct, [facility] [address] [id number] [place] [address]- 59[address] Sep, [facility] [address] [id number] [place] [address] 5228 Sep, [facility] [address] [id number] [place] [address] 4326 Sep, [facility] [address] [id number] [place] [address]- 9481 Aug, [facility] [address] [id number] [place] [address]107 Aug, [facility] [address] [facility] [id number] [place] [address]- [address] Aug, [facility] [address] [id number] [place] [address]- [address] Aug, [facility] [place] [facility] [address] [id number] [place] [address] Jul, [facility] [place] [facility] [address] [id number] [place] [address] 6857 Jul, [facility] [place] [facility] [address] [id number] [place] [address] 4516 Jul, [facility] [address] [id number] [place] [address] 74[address] Jul, [facility] [place] [facility] [address] [id number] [place] [address]- 2702 Jul, [facility] [place] [facility] [address] [id number] [place] [address]- 5632 Jul, [facility] [place] [facility] [address] [id number] [place] [address]- 6286 Jul, [facility] [place] [facility] [address] [id number] [place] [address]- 30[address] Jul, [facility] [place] [facility] [address] [id number] [place] [address]- 3658 Jun, [facility] [place] [facility] [address] [id number] [place] [address]- 5943 Jun, [facility] [place] [facility] [address] [id number] [place] [address]- 0515 Jun, [facility] [place] [facility] [address] [id number] [place] [address]- 1719 Jun, [facility] [place] [facility] [address] [id number] [place] [address]- 9648 Jun, [facility] [place] [facility] [address] [id number] [place] [address]- 9477 May, [facility] [place] [facility] [address] [id number] [place] [address]- 5862 May, [facility] [place] [facility] [address] [id number] [place] [address]- 4[address] 18 May, 2012 [facility] [place] [facility] [address] [id number] [place] [address]- 7277 09 May, 2012 [facility] [place] [facility] [address] [id number] [place] [address]- 7519 04 May, 2012 [facility] [place] [facility] [address] [id number] [place] [address]- 6515 Apr, [facility] [place] [facility] [address] [id number] [place] [address]- 9478 Apr, [facility] [place] [facility] [address] [id number] [place] [address]- 2963 Apr, [facility] [place] [facility] [address] [id number] [place] [address]- 8037 Apr, [facility] [place] [facility] [address] [id number] [place] [address]- 5734 Apr, [facility] [place] [facility] [address] [id number] [place] [address]- 8660 Apr, [facility] [place] [facility] [address] [id number] [place] [address]- 6801 Apr, [facility] [place] [facility] [address] [id number] [place] [address]- 1523 Mar, [facility] [place] [facility] [address] [id number] [place] [address]- 7990 Mar, [facility] [place] [facility] [address] [id number] [place] [address] 8000 Mar, [facility] [place] [facility] [address] [id number] [place] [address]- 7449 Mar, [facility] [place] [facility] [address] [id number] [place] [address]- 4365 Jan, [facility] [place] [facility] [address] [id number] [place] [address]- 8114 Jan, [facility] [place] [facility] [address] [id number] [place] [address]- 9664 Jan, [facility] [place] [facility] [address] [id number] [place] [address]- 3853 Jan, [facility] [place] [facility] [address] [id number] [place] [address]- 1024 Jan, [facility] [place] [facility] [address] [id number] [place] [address]- 6587 Jan, [facility] [place] [facility] [address] [id number] [place] [address]- 2462 December, [facility] [address] [id number] [place] [address]- 4976 December, [facility] [address] [id number] [place] [address]- 3346 December, [facility] [address] [id number] [place] [address]- 2816 December, [facility] [address] [id number] [place] [address]- 2506 Dec, [facility] [address] [id number] [place] [address]- 9351 Dec, [facility] [address] [id number] [place] [address]- 6887 Oct, [facility] [address] [id number] [place] [address]- 4758 Oct, [facility] [address] [id number] [place] [address]- 2996 Oct, [facility] [address] [id number] [place] [address]- 6373 Oct, [facility] [address] [facility] [id number] [place] [address]- 7642 Oct, [facility] [address] [id number] [place] [address]- 9066 Oct, [facility] [address] [id number] [place] [address]- 4576 05 Nov, 2011 [facility] [place] [facility] [address] [id number] [place] [address]- 0996 Oct, [facility] [address] [id number] [place] [address]- 2386 Oct, [facility] [address] [id number] [place] [address]- 2214 Oct, [facility] [address] [id number] [place] [address]- 4104 Oct, [facility] [address] [id number] [place] [address]- 8719 Sep, [facility] [address] [id number] [place] [address]- 3412 Sep, [facility] [place] [facility] [address] [id number] [place] [address]- 0224 Sep, [facility] [address] [id number] [place] [address]- 3876 Sep, [facility] [address] [id number] [place] [address]- 7317 Sep, [facility] [address] [id number] [place] [address]- 2189 Sep, [facility] [address] [id number] [place] [address]- 8793 Sep, [facility] [address] [id number] [place] [address]- 6980 Sep, [facility] [address] [id number] [place] [address]- 6783 Aug, [facility] [place] [facility] [address] [id number] [place] [address]- 1305 Aug, [facility] [place] [facility] [address] [id number] [place] [address]- 3386 Aug, [facility] [place] [facility] [address] [id number] [place] [address]- 8733 Jul, [facility] [place] [facility] [address] [id number] [place] [address]- 6094 Jul, [facility] [place] [facility] [address] [id number] [place] [address]- 1821 Jul, [facility] [place] [facility] [address] [id number] [place] [address]- 0007 17 Jul, 2011 [facility] [place] [facility] [address] [id number] [place] [address]- 1781 08 Jul, 2011 [facility] [place] [facility] [address] [id number] [place] [address]- 8325 02 Jul, 2011 [facility] [place] [facility] [address] [id number] [place] [address]- 5289 31 Jun, 2011 [facility] [place] [facility] [address] [id number] [place] [address]- 1488 20 Jun, 2011 [facility] [place] [facility] [address] [id number] [place] [address]- 0973 20 Mar, 2011 [facility] [place] [facility] [address] [id number] [place] [address]- 7666 14 Dec, 2010 [facility] [place] [facility] [address] [id number] [place] [address]- 7523 14 Oct, 2010 [facility] [place] [facility] [address] [id number] [place] [address]- 1667 06 Aug, 2010 [facility] [place] [facility] [address] [id number] [place] [address]- 3492 30 Jul, 2010 [facility] [place] [facility] [address] [facility] [id number] [place] [address]- 5319 11 Jul, 2010 [facility] [place] [facility] [address] [id number] [place] [address]- 7965 10 Jul, 2010 [facility] [place] [facility] [address] [id number] [place] [address]- 9980 09 Jul, 2010 [facility] [place] [facility] [address] [id number] [place] [address]- 8000 08 Jul, 2010 [facility] [place] [facility] [address] [id number] [place] [address]- 2177 22 Aug, 2009 [facility] [place] [facility] [address] [facility] [id number] [place] [address]- 1345 15 Aug, 2009 [facility] [place] [facility] [id number] [place] [address] Aug, [facility] [id number] [place] [address]- 7986 Aug, [facility] [id number] [place] [address]- 2546 Jul, [facility] [id number] [place] [address]- 6857 Jul, [facility] [id number] [place] [address]- 9219 Jul, [facility] [id number] [place] [address]- 2546 Jul, [facility] [id number] [place] [address]- 3381 Jun, [facility] [id number] [place] [address]- 2546 Jun, IMMUNIZATIONS No Known Immunizations SOCIAL HISTORY Never Assessed REASON FOR VISIT Medication refill request PLAN OF CARE VITAL SIGNS MEDICATIONS Medication Instructions Dosage Frequency Start Date End Date Duration Status Neurontin 100 mg Orally Three times a day 1 capsule 8h Jul, 14 days Active RESULTS No Results PROCEDURES No [...]
--- OUTSIDE RECORDS SUMMARY | 2018-03-17 11:13 | XMS REPORT ---
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 Active 24076007 Problem Attention-deficit hyperactivity disorder, predominantly inattentive type F90.0 Active 59621593 Problem Obstructive sleep apnea G47.33 Active 22578925 Problem Primary insomnia F51.01 Active 8178283 Problem Neuralgia M79.2 Active 14575382 Problem Cannabis use disorder, mild, abuse F12.10 Active 79023975 Problem Folic acid deficiency E53.8 Active 835296554 Problem Restless legs G25.81 Active 04843493 Problem Major depressive disorder, recurrent, mild F33.0 Active 17634382 Problem Generalized anxiety disorder F41.1 Active 52562663 Problem Major depressive disorder, recurrent episode, moderate F33.1 Active 996154866 Problem Hypertension I10 Active 73707136 Problem Hyperlipidemia E78.5 Active 80404797 Problem Primary osteoarthritis of both knees M17.0 Active 599419190 Problem Chronic hepatitis K73.9 Active 99558987 Problem Low back pain M54.5 Active 804007035 Problem Chronic viral hepatitis B without delta-agent B18.1 Active 635270318 Problem Insomnia G47.00 Active 810161200 Problem Hypothyroid E03.9 Active 16918092 Problem Depression, major, recurrent, mild F33.0 Active 317009221 Problem Obesity due to excess calories, unspecified obesity severity E66.09 Active 365350039 ALLERGIES Substance Reaction Event Type Date Status Trazodone HCl "weird dreams" Drug Allergy Apr, Active ENCOUNTERS Encounter Location Date Diagnosis [facility] [address] [facility] [id number] [address] December, [facility] [address] [place] [id number] [place] [address] 02564- 8898 Dec, [facility] [id number] [place] [address] 34545- 3965 Dec, [facility] [id number] [place] [address] 72991- 4302 Oct, [facility] [address] 80108- 0345 Oct, Syncope, unspecified syncope type R55 ; Primary insomnia F51.01 ; Dry mouth R68.2 and Cannabis use disorder, mild, abuse F12.10 [facility] [address] 37582- 7893 Oct, [facility] [id number] [place] [address] 93700- 1911 Sep, [facility] [address] 23628- 9809 Sep, [facility] [id number] [place] [address] 73787- 0297 Sep, [facility] [address] [id number] Sep, Dental examination Z01.20 [facility] [id number] [place] [address] 71734- 6402 Sep, Dental examination Z01.20 [facility] [id number] [place] [address] 16589- 3541 Sep, Sinus congestion R09.81 ; Mouth sores K13.79 ; Low back pain M54.5 and Mouth swelling R22.0 [facility] [id number] [place] [address] 93272- 3787 Aug, Low back pain M54.5 [facility] [id number] [place] [address] 58297- 4237 Aug, Low back pain M54.5 [facility] [address] 21987- 6798 Jul, [place] [address] 00666- 5952 Jul, 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 ; Encounter for immunization Z23 ; Hypothyroid E03.9 ; Decreased renal function N28.9 and Muscle cramps R25.2 [place] [address] 81343- 9504 Jul, [place] [address] 19786- 5550 Jul, [place] [address] 81609- 6011 Jul, [place] [address] 09939- 8871 Jul, Major depressive disorder, recurrent, mild F33.0 [place] [address] 27938- 2437 Jul, Acquired cyst of kidney N28.1 ; Acidosis E87.2 and Hyperkalemia E87.[address] 8[address]45- 3600 Jul, Major depressive disorder, recurrent, mild F33.0 ; Attention -deficit hyperactivity disorder, predominantly inattentive type F90.0 and Generalized anxiety disorder F41.1 [place] [address] 06198- 0571 Jul, Low back pain M54.5 [place] [address] 86505- 1489 Jun, Cough R05 ; Low back pain M54.5 and Pre-syncope R55 [facility] [address] 69108- 7370 Jun, Low back pain M54.5 [facility] [address] [id number] Jun, Dental caries K02.9 [place] [id number] [place] [address] 93455- 8626 Jun, [place] [address] [place] 335882- 0061 Jun, Major depressive disorder, recurrent, mild F33.0 ; Attention -deficit hyperactivity disorder, predominantly inattentive type F90.0 and Generalized anxiety disorder F41.1 [place] [address] 03370- 8400 13 May, 2017 Vertigo R42 ; Confusion R41.0 ; Weakness R53.1 and Vision changes H53.9 [place] [id number] [place] [address] 94780- 1921 May, [place] [id number] [place] [address] 22685- 8545 May, [place] [id number] [place] [address] 08354- 2319 May, Low back pain M54.5 [place] [id number] [place] [address] 06498- 1507 05 May, 2017 Major depressive disorder, recurrent, mild F33.0 ; Attention -deficit hyperactivity disorder, predominantly inattentive type F90.0 and Generalized anxiety disorder F41.1 [place] [id number] [place] [address] 16189- 3916 May, [place] [id number] [place] [address] 26026- 8488 May, Acute worsening of stage 3 chronic kidney disease N18.3 [place] [address] 91860- 4310 Apr, [place] [address] 16942- 1467 Apr, Acute allergic rhinitis due to pollen, unspecified seasonality J30.1 ; Restless legs G25.81 and Low back pain M54.5 [facility] [id number] [place] [address] 97901- 8260 10 Apr, 2017 Primary osteoarthritis of both knees M17.0 [facility] [id number] [place] [address] 28732- 2303 08 Apr, 2017 Generalized anxiety disorder F41.1 [facility] [address] 34641- 7724 07 Apr, 2017 Major depressive disorder, recurrent, mild F33.0 ; Attention -deficit hyperactivity disorder, predominantly inattentive type F90.0 and Generalized anxiety disorder F41.1 [facility] [address] 30943- 1932 Apr, [facility] [id number] [place] [address] 65904- 0162 Mar, Major depressive disorder, recurrent episode, moderate F33.1 ; Generalized anxiety disorder F41.1 and ADHD, predominantly inattentive type F90.0 [facility] [id number] [place] [address] 79616 -6962 Mar, Abscess L02.91 [facility] [address] 19936- 2303 Mar, 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 [facility] [id number] [place] [address] 48106- 3323 Mar, Decreased renal function N28.9 [facility] [address] [id number] Mar, Dental examination Z01.20 [facility] [address] 44195- 7965 Mar, 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 [facility] [id number] [place] [address] 04785- 5633 Mar, 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 [facility] [address] [id number] Mar, Dental examination Z01.20 and Dental caries K02.9 [place] [id number] [place] [address] 91475- 0213 Mar, Chronic viral hepatitis B without delta-agent B18.1 ; Folic acid deficiency E53.8 ; 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 and Decreased renal function N28.9 [place] [id number] [place] [address] 06703- 0680 Mar, Major depressive disorder, recurrent, mild F33.0 [place] [address] 00281- 9534 Mar, [address] 66477- 1062 Mar, Chronic hepatitis K73.9 ; 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 ; Localized edema R60.0 ; Illicit drug use F19.90 ; Vision changes H53.9 and Obesity due to excess calories, unspecified obesity severity E66.09 [place] [id number] [place] [address] 63810- 8622 Jan, Major depressive disorder, recurrent, mild F33.0 [place] [id number] [place] [address] 09436- 7086 Jan, Chronic viral hepatitis B without delta-agent B18.1 [place] [id number] [place] [address] 64540- 5102 Jan, [place] [id number] [place] [address] 13869- 3008 Jan, Weight gain R63.5 ; Hypothyroid E03.9 ; 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 ; Decreased renal function N28.9 and Chronic viral hepatitis B without delta-agent B18.[address] 20151- 9175 December, Major depressive disorder, recurrent, mild F33.0 and Generalized anxiety disorder F41.1 [place] [id number] [place] [address] 86875- 1425 December, Obesity due to excess calories, unspecified obesity severity E66.09 and Folic acid deficiency E53.8 [facility] [id number] [place] [address] 14294- 4489 December, Folic acid deficiency E53.8 [facility] [id number] [place] [address] 38375- 1777 December, Folic acid deficiency E53.8 [facility] [id number] [place] [address] 62936- 3616 December, Obesity due to excess calories, unspecified obesity severity E66.09 [facility] [id number] [place] [address] 78932- 0896 December, [facility] [id number] [place] [address] 95739- 3585 December, Folic acid deficiency E53.8 [facility] [id number] [place] [address] [id number] December, Encounter for other administrative examinations Z02.89 [facility] [id number] [place] [address] 81961- 3433 Dec, [facility] [address] [id number] Dec, Dental caries K02.9 [facility] [id number] [place] [address] 89387- 3845 Oct, Bone pain M89.8X9 [facility] [id number] [place] [address] 51032- 9531 Oct, Hypothyroid E03.9 [facility] [address] 70619- 4269 24 Oct, 2016 Hypothyroid E03.9 [facility] [id number] [place] [address] 26391- 4836 13 Oct, 2016 Breast cancer screening Z12.39 [facility] [address] [place] [id number] 08 Oct, 2016 Dental examination Z01.20 [place] [id number] [place] [address] 74539- 7475 Oct, [place] [id number] [place] [address] 07278- 8472 Oct, Major depressive disorder, recurrent, mild F33.0 and Generalized anxiety disorder F41.1 [place] [id number] [place] [address] 28880- 4800 Oct, [place] [id number] [place] [address] 93272- 7065 Oct, Hypothyroid E03.9 [place] [id number] [place] [address] 75393- 0698 Sep, Hypothyroid E03.9 ; Chronic viral hepatitis B without delta- agent B18.1 and Folic acid deficiency E53.8 [place] [id number] [place] [address] 76197- 1357 Sep, Hypothyroidism, unspecified type E03.9 ; Elevated parathyroid hormone E34.9 and Chronic viral hepatitis B without delta-agent B18.1 [place] [id number] [place] [address] 59151- 2746 Sep, [place] [id number] [place] [address] 36089- 4118 Sep, Elevated parathyroid hormone E34.9 [place] [id number] [place] [address] 24486- 4209 Sep, [place] [id number] [place] [address] 13840- 9143 Sep, Chronic hepatitis K73.9 ; Bone pain M89.8X9 and Abnormal complete blood count R79.89 [place] [id number] [place] [address] 41500- 4861 Aug, Major depressive disorder, recurrent, mild F33.0 [facility] [id number] [place] [address] 71925- 5721 Aug, Bone pain M89.8X9 [facility] [address] 89270- 9332 Aug, [facility] [address] 92188- 3147 Jul, Chronic viral hepatitis B without delta-agent B18.1 [facility] [address] 46556- 4030 Jul, Hypothyroidism, unspecified type E03.9 [facility] [address] 23075- 7874 Jul, [place] [address] 52792- 1148 Jul, Chronic hepatitis K73.9 and Hypothyroid E03.9 [facility] [address] 15828- 1708 Jul, Low back pain M54.5 [facility] [address] 13195- 5136 Jun, Depression, major, recurrent, mild F33.0 and ADD (attention deficit disorder) F90.0 [place] [id number] [place] [address] 77101- 5789 Jun, [facility] [id number] [place] [address] 20121- 8623 Jun, Low back pain M54.5 [facility] [address] 37237- 2781 Jun, Encounter for immunization Z23 ; Major depressive disorder, recurrent, mild F33.0 and Attention-deficit hyperactivity disorder, predominantly inattentive type F90.0 [facility] [id number] [place] [address] 10285- 2061 Jun, [facility] [id number] [place] [address] 15251- 9376 Jun, Low back pain M54.5 [facility] [address] 34708- 7042 May, [facility] [address] 53717- 4364 May, [facility] [address] 05191- 4729 May, Essential (primary) hypertension I10 [facility] [address] 82716- 3754 May, Low back pain M54.5 [facility] [address] 02666- 0680 May, Low back pain M54.5 ; Chronic hepatitis K73.9 and Hypothyroid E03.9 [facility] [address] 53649- 5503 May, Hypothyroidism, unspecified type E03.9 [facility] [address] 66986- 5238 08 May, 2016 Low back pain M54.5 [facility] [id number] [place] [address] 74207- 1535 May, [facility] [address] 50613- 1119 May, [facility] [id number] [place] [address] 45573- 5294 May, Major depressive disorder, recurrent, moderate F33.1 ; Generalized anxiety disorder F41.1 ; Insomnia G47.00 and ADD (attention deficit disorder) F90.0 [facility] [id number] [place] [address] 49519- 4929 Apr, Low back pain M54.5 [facility] [address] 69468- 1390 Apr, [place] [address] [place] [id number] [place] [address] 87986- 8246 Apr, Low back pain M54.5 [place] [id number] [place] [address] 38153- 8726 Apr, Low back pain M54.5 ; Tooth pain K08.8 and Seasonal allergic rhinitis due to pollen J30.1 [place] [id number] [place] [address] 57972- 0010 Apr, Low back pain M54.5 [place] [id number] [place] [address] 20665- 7615 Apr, LGS[facility] Pap smear of vagina R87.622 [place] [id number] [place] [address] 78171- 8349 Apr, Low back pain M54.5 [place] [address] [place] [id number] [place] [address] 38024- 1155 Mar, [place] [id number] [place] [address] 41930- 1049 Mar, Low back pain M54.5 [place] [address] [address] [id number] [place] [address] 60240- 2940 Mar, Encounter for Papanicolaou smear for cervical cancer screening Z12.4 ; Encounter for routine gynecological examination Z01.419 and Breast cancer screening Z12.39 [place] [id number] [place] [address] 02195- 5559 18 Mar, 2016 Hypothyroidism, unspecified type E03.9 [place] [id number] [place] [address] 94541- 3996 14 Mar, 2016 Low back pain M54.5 ; Other chronic pain G89.29 ; Hypothyroid E03.9 and Hypothyroidism, unspecified type E03.9 [place] [id number] [place] [address] 90671- 0370 Mar, Major depressive disorder, recurrent, moderate F33.1 and Attention-deficit hyperactivity disorder, predominantly inattentive type F90.0 [facility] [id number] [place] [address] 87680 -2016 Mar, Bronchitis J40 [facility] [id number] [place] [address] 00545- 3090 Jan, [facility] [address] 32802- 0476 Jan, [facility] [id number] [place] [address] 29225- 0122 Jan, Insomnia G47.00 [facility] [id number] [place] [address] 76575- 4453 December, [facility] [id number] [place] [address] 74360- 1755 December, Major depressive disorder in partial remission F32.4 and Attention-deficit hyperactivity disorder, unspecified type F90.9 [facility] [id number] [place] [address] 71691- 3020 December, [facility] [id number] [place] [address] 40621- 0057 December, [facility] [id number] [place] [address] 09525- 4521 Dec, [facility] [id number] [place] [address] 33838- 4600 Dec, Major depressive disorder, recurrent episode, moderate 296.32 and Attention deficit disorder of childhood without mention of hyperactivity 314.00 [facility] [id number] [place] [address] 42837- 2419 Dec, Major depressive disorder, recurrent episode, mild 296.31 ; ADD (attention deficit disorder) F90.0 and Hyperlipidemia E78.5 [facility] [id number] [place] [address] 45008- 1023 Dec, Insomnia G47.00 [facility] [address] [address]- 8958 05 Dec, 2015 Attention-deficit hyperactivity disorder, predominantly inattentive type F90.0 [facility] [id number] [place] [address] 63279- 0327 Oct, Restless legs syndrome G25.81 [facility] [id number] [place] [address] 22737- 6208 Oct, Hypothyroidism, unspecified type E03.9 [facility] [id number] [place] [address] 89051- 0054 Oct, [facility] [id number] [place] [address] 67572- 8369 Oct, [facility] [id number] [place] [address] 44051- 8892 Oct, Hypothyroid E03.9 and Chronic hepatitis K73.9 [facility] [id number] [place] [address] 87311- 2417 Oct, [facility] [id number] [place] [address] 17629- 0357 08 Nov, 2015 Restless legs syndrome G25.81 ; Chronic hepatitis K73.9 ; Hypertension I10 ; Hypothyroid E03.9 and Breast cancer screening Z12.39 [facility] [id number] [address]- 8197 Oct, [facility] [id number] [address]- 0451 Oct, [facility] [id number] [place] [address] 04500- 8461 Oct, [facility] [id number] [place] [address] 02550- 6375 Oct, [facility] [id number] [place] [address] 97711- 8365 Oct, [facility] [address], [place] [address]- 8460 Oct, [facility] [id number] [place] [address] 91821- 8477 Oct, [facility] [address], [place] [address]- 4237 Sep, [facility] [id number] [place] [address] 08917- 7301 Sep, Attention-deficit hyperactivity disorder, predominantly inattentive type F90.0 and Major depressive disorder in partial remission F32.4 [facility] [id number] [place] [address] 90215- 1449 Sep, [facility] [id number] [place] [address] 27015- 1996 Aug, [facility] [id number] [place] [address] 50289- 5536 Aug, [facility] [address], [place] [address]- 7124 Aug, Major depressive disorder, recurrent, mild F33.0 ; Attention -deficit hyperactivity disorder, unspecified type F90.9 and Generalized anxiety disorder F41.1 [facility] [id number], [place] [address] 08 Aug, 2015 Chronic hepatitis K73.9 ; Primary osteoarthritis of both knees M17.0 and Neuralgia M79.2 [facility] [id number], [place] [address] Jul, [facility] [id number] [address] Jul, [facility] [id number], [place] [address] Jul, [facility] [id number] [address] Jul, [facility] [id number] [place] [address]- [address] Jun, [facility] [address] [address] Jun, Bronchitis J40 and Encounter for immunization Z23 [facility] [address] [address] 30 May, 2015 [facility] [address] [address] May, [facility] [address] [address]- [address] May, [facility] [address] [address] May, Hypokalemia 276.8 [facility] [address] [address] 08 May, 2015 Major depressive disorder, recurrent episode, mild 296.31 ; Attention deficit disorder of childhood without mention of hyperactivity 314.00 and Generalized anxiety disorder 300.02 [facility] [id number] [place] [address]- [address] May, Hypertension 401.9 and Hypokalemia 276.8 [facility] [id number] [place] [address]- [address]27 May, [facility] [id number] [place] [address]- [address] Apr, [facility] [id number] [place] [address]- [address] Apr, [facility] [address] [address] 1988 Apr, [facility] [id number] [place] [address]- [address] Apr, [facility] [id number] [place] [address]- [address] Mar, [facility] [id number], [place] [address] Mar, [facility] [id number] [place] [address]- 6031 Mar, [facility] [id number], [place] [address] Mar, [facility] [id number] [place] [address]- [address] Mar, Arthritis of both knees 716.96 ; Hepatitis B 070.30 ; Hypertension 401.9 ; Carpal tunnel syndrome 354.0 and Cubital tunnel syndrome 354.2 [facility] [place] [facility] [id number] [place] [address] 97[address]- 7418 Mar, [facility] [place] [facility] [id number] [place] [address] 57410- 7008 Mar, [facility] [place] [facility] [id number] [place] [address] 60538- 7276 Mar, 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, chronic, without mention of hepatitis delta 070.32 ; Chronic hepatitis C without mention of hepatic coma 070.54 and Major depressive disorder, recurrent episode, moderate 296.32 [facility] [place] [facility] [id number], [place] [address] 98[address] Jan, [facility] [place] [facility] [id number] [place] [address]- 8442 Jan, Major depressive disorder, recurrent episode, mild 296.31 and Attention deficit disorder of childhood without mention of hyperactivity 314.00 [facility] [place] [facility] [id number] [address] 78[address] Jan, [facility] [place] [facility] [id number] [place] [address] 8[address]- 5720 Jan, [facility] [place] [facility] [id number], [place] [address]- 5[address] December, Attention deficit disorder of childhood without mention of hyperactivity 314.00 ; Major depressive disorder, recurrent episode, mild 296.31 and Generalized anxiety disorder 300.02 [facility] [place] [facility] [id number] [address] 9987 08 Dec, 2014 [facility] [place] [facility] [id number] [place] [address]- 7187 14 Dec, 2014 [facility] [place] [facility] [id number], [place] [address]- 9228 13 Dec, 2014 [facility] [place] [facility] [address] [facility] [id number] [place] [address]- 4503 19 Oct, 2014 [facility] [place] [facility] [id number] [place] [address], [place] [address]- 8581 19 Oct, 2014 [facility] [place] [facility] [id number] [address] 2597 18 Oct, 2014 [facility] [place] [facility] [address], [place] [address]- 6666 18 Oct, 2014 [facility] [place] [facility] [address] [id number] [address]- 7286 18 Oct, 2014 [facility] [place] [facility] [id number], [place] [address]- 4160 18 Oct, 2014 [facility] [place] [facility] [address] [id number], [place] [address]- 4210 16 Oct, 2014 [facility] [place] [facility] [address], [place] [address]- 1256 13 Oct, 2014 [facility] [place] [facility] [address] [id number] [address]- 5445 13 Oct, 2014 [facility] [place] [facility] [id number] 2730 12 Oct, 2014 [facility] [place] [facility] [address] [id number] [address]- 2644 12 Oct, 2014 [facility] [place] [facility] [address] 1094 Oct, [facility] [place] [facility] [address] [id number] [place] [address]- 0341 Oct, [facility] [place] [facility] [address] [id number] [place] [address]- 8602 Oct, [facility] [place] [facility] [address] [facility] [id number] [place] [address]- 1216 05 Oct, 2014 [facility] [place] [facility] [address] [id number] [place] [address]- 6843 Oct, 2014 [facility] [place] [facility] [address] [id number] [place] [address]- 0204 Oct, 2014 [facility] [place] [facility] [address] [id number] [place] [address]- 8760 25 Oct, 2014 [facility] [place] [facility] [address] [facility] [id number] [place] [address]- 6195 19 Oct, 2014 [facility] [place] [facility] [address] [facility] [id number] [place] [address]- 5393 18 Oct, 2014 [facility] [place] [facility] [address] [facility] [id number] [place] [address]- 0989 17 Oct, 2014 [facility] [place] [facility] [address] [facility] [id number] [place] [address]- 3842 17 Oct, 2014 [facility] [place] [facility] [address] [facility] [id number] [place] [address]- 3252 Oct, 2014 [facility] [place] [facility] [address] [facility] [id number] [place] [address]- 4587 11 Oct, 2014 [facility] [place] [facility] [address] [facility] [id number] [place] [address]- 3223 11 Oct, 2014 [facility] [place] [facility] [address] [facility] [id number] [place] [address]- 8259 11 Oct, 2014 [facility] [place] [facility] [address] [facility] [id number] [place] [address]- 3904 10 Oct, 2014 [facility] [place] [facility] [address] [id number] [place] [address]- 7248 Oct, [facility] [place] [facility] [address] [id number] [place] [address]- 8035 Sep, [facility] [place] [facility] [address] [id number] [place] [address]- 1138 Sep, [facility] [place] [facility] [address] [id number] [place] [address]- 3972 Sep, [facility] [place] [facility] [address] [id number] [place] [address]- 3223 Sep, [facility] [place] [facility] [address] [id number] [place] [address]- 3620 Sep, [facility] [place] [facility] [address] [id number] [place] [address]- 6205 Sep, [facility] [place] [facility] [address] [id number] [place] [address]- 8607 Sep, [facility] [place] [facility] [address] [id number] [place] [address]- 3079 Sep, [facility] [place] [facility] [address] [id number] [place] [address]- 5762 Sep, [facility] [place] [facility] [address] [id number] [place] [address]- 1118 Sep, [facility] [place] [facility] [address] [id number] [place] [address]- 6867 Sep, [facility] [place] [facility] [address] [id number] [place] [address]- 8637 Sep, [facility] [place] [facility] [address] [id number] [place] [address]- 3304 Sep, [facility] [place] [facility] [address] [id number] [place] [address]- 7491 Sep, [facility] [place] [facility] [address] [id number] [place] [address]- 7788 Sep, [facility] [place] [facility] [address] [id number] [place] 4167 Sep, [facility] [place] [facility] [address] [id number] [place] [address]- 2696 Aug, [facility] [place] [facility] [address] [id number] [place] 3456 Aug, [facility] [place] [facility] [address] [id number] [place] 7198 Aug, [facility] [place] [facility] [address] [id number] [place] [address]- 5664 Aug, [facility] [place] [facility] [address] [id number] [place] [address]- 1478 Aug, [facility] [place] [facility] [address] [id number] [place] [address]- 1388 Aug, [facility] [place] [facility] [address] [id number] [place] [address]- 8965 Aug, [facility] [place] [facility] [address] [id number] [place] [address]- 5442 Aug, [facility] [place] [facility] [address] [id number] [place] [address]- 9611 Aug, [facility] [place] [facility] [address] [id number] [place] [address]- 2138 18 Aug, 2014 [facility] [place] [facility] [address] [id number] [place] [address]- 1343 18 Aug, 2014 [facility] [place] [facility] [address] [id number] [place] [address]- 4165 16 Aug, 2014 [facility] [place] [facility] [address] [id number] [place] 1840 16 Aug, 2014 [facility] [place] [facility] [address] [id number] [place] 8459 15 Aug, 2014 [facility] [place] [facility] [address] [id number] [place] [address]- 4398 15 Aug, 2014 [facility] [address] [id number] [place] [address]- 2179 Aug, [facility] [place] [facility] [address] [id number] [place] [address]- 3493 Aug, [facility] [place] [facility] [address] [id number] [place] [address]- 4709 Aug, [facility] [place] [facility] [address] [id number] [place] [address]- 0443 Aug, [facility] [place] [facility] [address] [id number] [place] [address]- 1338 Aug, [facility] [place] [facility] [address] [id number] [place] [address]- 6612 Aug, [facility] [place] [facility] [address] [id number] [place] [address]- 8647 Aug, [facility] [place] [facility] [address] [id number] [place] [address]- 5670 Aug, [facility] [place] [facility] [address] [id number] [place] [address]- 2740 Aug, [facility] [place] [facility] [address] [id number] [place] [address]- 2732 Aug, [facility] [place] [facility] [address] [id number] [place] [address]- 1288 Jul, [facility] [place] [facility] [address] [id number] [place] [address]- 3557 Jul, [facility] [place] [facility] [address] [id number] [place] [address]- 6781 Jul, [facility] [place] [facility] [address] [id number] [place] [address]- 9964 Jul, [facility] [place] [facility] [address] [id number] [place] [address]- 1526 Jul, [facility] [place] [facility] [address] [id number] [place] [address]- 1307 Jul, [facility] [place] [facility] [address] [id number] [place] [address]- 6755 Jun, [facility] [place] [facility] [address] [id number] [place] [address]- 4281 Jun, [facility] [place] [facility] [address] [id number] [place] [address]- 4323 Jun, [facility] [place] [facility] [address] [id number] [place] [address]- 6602 Jun, [facility] [place] [facility] [address] [id number] [place] [address]- 2519 Jun, [facility] [place] [facility] [address] [id number] [place] [address]- 0499 Jun, [facility] [place] [facility] [address] [id number] [place] [address]- 0318 Jun, [facility] [place] [facility] [address] [id number] [place] [address]- 4359 Jun, [facility] [place] [facility] [address] [id number] [place] [address]- 5244 16 May, 2014 [facility] [place] [facility] [address] [id number] [place] [address]- 1569 16 May, 2014 [facility] [place] [facility] [address] [id number], [place] [address]- 7102 15 May, 2013 [facility] [place] [facility] [address] [id number] [place] [address]- 3834 15 May, 2014 [facility] [place] [facility] [address] [id number] [place] [address]- 4464 08 May, 2014 [facility] [place] [facility] [address] [id number] 9452 08 May, 2013 [facility] [place] [facility] [address] [id number], [place] [address]- 7764 May, [facility] [place] [facility] [address] [id number] [place] [address]- 2035 May, [facility] [place] [facility] [address] [id number] [place] [address]- 5771 Apr, [facility] [place] [facility] [address] [id number] [place] [address]- 7237 Apr, [facility] [place] [facility] [address] [id number] [place] [address]- 2053 Apr, [facility] [place] [facility] [address] [id number] [place] [address]- 3514 Apr, [facility] [place] [facility] [address] [id number] [place] [address]- 8678 Apr, [facility] [place] [facility] [address] [id number] [place] [address]- 7921 Apr, [facility] [place] [facility] [address] [id number] [place] [address]- 8326 Apr, [facility] [place] [facility] [address] [id number] [place] [address]- 2014 Apr, [facility] [place] [facility] [address] [id number] [place] [address]- 0599 Apr, [facility] [place] [facility] [address] [id number] [place] [address]- 7643 Apr, [facility] [place] [facility] [address] [id number] [place] [address]- 1958 Apr, [facility] [place] [facility] [address] [id number] [place] [address]- 0520 Apr, [facility] [place] [facility] [address] [id number] [place] [address]- 8791 Apr, [facility] [place] [facility] [address] [id number] [place] [address]- 8642 Mar, [facility] [place] [facility] [address] [id number] [place] [address]- 8140 Mar, [facility] [place] [facility] [address] [id number] [place] [address]- 1050 Mar, [facility] [place] [facility] [address] [id number] [place] [address]- 7776 Mar, [facility] [place] [facility] [address] [id number] [place] [address]- 7778 Jan, [facility] [place] [facility] [address] [id number] [place] [address]- 2788 Jan, [facility] [place] [facility] [address] [id number] [place] [address]- 8243 December, [facility] [place] [facility] [address] [id number] [place] [address]- 1052 December, [facility] [place] [facility] [address] [id number] [place] [address]- 1891 December, [facility] [place] [facility] [address] [id number] [place] [address]- 8000 December, [facility] [place] [facility] [address] [id number] [place] [address]- 1113 December, [facility] [place] [facility] [address] [id number] [place] [address]- 1374 December, [facility] [place] [facility] [address] [id number] [place] [address]- 4826 December, [facility] [place] [facility] [address] [id number] [place] [address]- 4931 December, [facility] [place] [facility] [address] [id number] [place] [address]- 3790 Dec, [facility] [place] [facility] [address] [id number] [place] [address]- 7246 Dec, [facility] [place] [facility] [address] [id number] [place] [address]- 8363 Dec, [facility] [place] [facility] [address] [id number] [place] [address]- 5326 Dec, [facility] [place] [facility] [address] [id number] [place] [address]- 5481 Oct, [facility] [place] [facility] [address] [id number] [place] [address]- 9760 Oct, [facility] [place] [facility] [address] [id number] [place] [address]- 5849 Oct, [facility] [place] [facility] [address] [id number] [place] [address]- 8699 Oct, [facility] [place] [facility] [address] [id number] [place] [address]- 9815 Oct, [facility] [place] [facility] [address] [id number] [place] [address]- 5286 Oct, [facility] [place] [facility] [address] [id number] [place] [address]- 5582 Oct, [facility] [place] [facility] [address] [id number] [place] [address]- 2756 Oct, [facility] [place] [facility] [address] [id number] [place] [address]- 6973 Oct, [facility] [place] [facility] [address] [id number] [place] [address]- 8844 Oct, [facility] [place] [facility] [address] [id number] [place] [address]- 0437 Oct, [facility] [place] [facility] [address] [id number] [place] [address]- 3228 Oct, [facility] [place] [facility] [address] [id number] [place] [address]- 1693 Oct, [facility] [place] [facility] [address] [id number] [place] [address]- 6663 Oct, [facility] [place] [facility] [address] [id number] [place] [address]- 6627 10 Oct, 2013 [facility] [place] [facility] [address] [id number] [place] [address]- 5143 Oct, 2013 [facility] [place] [facility] [address] [id number] [place] [address]- 2966 Oct, 2013 [facility] [place] [facility] [address] [id number] [place] [address]- 0596 Oct, 2013 [facility] [place] [facility] [address] [id number] [place] [address]- 0719 Oct, [facility] [place] [facility] [address] [id number] [place] [address]- 0763 Oct, [facility] [place] [facility] [address] [facility] [id number] [place] [address]- 6752 Oct, [facility] [place] [facility] [address] [facility] [id number] [place] [address]- 8193 Oct, [facility] [place] [facility] [address] [facility] [id number] [place] [address]- 4895 Sep, [facility] [place] [facility] [address] [facility] [id number] [place] [address]- 9342 Sep, [facility] [place] [facility] [address] [facility] [id number] [place] [address]- 7656 Sep, [facility] [place] [facility] [address] [id number] [place] [address]- 4992 Sep, [facility] [place] [facility] [address] [id number] [place] [address]- 2566 Aug, [facility] [place] [facility] [address] [id number] [place] [address]- 2234 Aug, [facility] [place] [facility] [address] [id number] [place] [address]- 4604 Aug, [facility] [place] [facility] [address] [id number] [place] [address]- 2546 Aug, [facility] [place] [facility] [address] [id number] [place] [address]- 0703 Aug, [facility] [place] [facility] [address] [id number] [place] [address]- 0207 Aug, [facility] [place] [facility] [address] [id number] [place] [address]- 8300 Aug, [facility] [place] [facility] [address] [id number] [place] [address]- 0774 Aug, [facility] [place] [facility] [address] [id number] [place] 3130 Aug, [facility] [place] [facility] [address] [id number] [place] [address]- 3869 Jul, [facility] [place] [facility] [address] [id number] [place] 3880 Jul, [facility] [place] [facility] [address] [id number], [place] [address]- 8976 Jul, [facility] [place] [facility] [address] [id number] [place] [address]- 5646 Jul, [facility] [place] [facility] [address] [id number] [place] [address]- 2740 Jul, [facility] [place] [facility] [address] [id number], [place] [address]- 1495 Jul, [facility] [place] [facility] [address] [id number], [place] [address]- 6215 Jul, [facility] [place] [facility] [address] [id number] [place] 0325 Jul, [facility] [place] [facility] [address] [id number], [place] [address]- 1014 Jun, [facility] [place] [facility] [address] [id number] [place] [address]- 8399 Jun, [facility] [place] [facility] [address] [id number] [place] [address]- 4954 Jun, [facility] [address] [id number] [place] [address]- 1308 Jun, [facility] [place] [facility] [address] [id number] [place] [address]- 6600 Jun, [facility] [address] [id number] [place] [address]- 0621 Jun, [facility] [place] [facility] [address] [id number] [place] [address]- 5736 Jun, [facility] [address] [id number] [place] [address]- 3605 Jun, [facility] [place] [facility] [address] [id number] [place] [address]- 2588 30 May, 2013 [facility] [place] [facility] [address] [id number] [place] [address]- 2301 26 May, 2013 [facility] [address] [id number] [place] [address]- 8841 23 May, 2013 [facility] [place] [facility] [address] [id number] [place] [address]- 0345 19 May, 2013 [facility] [address] [id number] [place] [address]- 8564 12 May, 2013 [facility] [place] [facility] [address] [id number] [place] [address]- 1090 11 May, 2013 [facility] [place] [facility] [address] [id number] [place] [address]- 6312 Apr, [facility] [place] [facility] [address] [id number] [place] [address] Apr, [facility] [place] [facility] [address] [id number] [place] [address] Apr, [facility] [place] [facility] [address] [id number] [place] [address] Apr, [facility] [place] [facility] [address] [id number] [place] [address] Apr, [facility] [place] [facility] [address] [id number] [place] [address] Apr, [facility] [place] [facility] [address] [id number] [place] [address] Apr, [facility] [place] [facility] [address] [id number] [place] [address] Mar, [facility] [place] [facility] [address] [id number] [place] [address] Mar, [facility] [place] [facility] [address] [id number] [place] [address] Mar, [facility] [place] [facility] [address] [id number] [place] [address] Mar, [facility] [place] [facility] [address] [id number] [place] [address] Mar, [facility] [place] [facility] [address] [id number] [place] [address] 80[address] Mar, [facility] [place] [facility] [address] [id number] [place] [address] Mar, [facility] [place] [facility] [address] [id number] [place] [address] Jan, [facility] [place] [facility] [address] [id number] [place] [address] Jan, [facility] [place] [facility] [address] [id number] [place] [address] Jan, [facility] [place] [facility] [address] [id number] [place] [address] Jan, [facility] [place] [facility] [address] [id number] [place] [address] Jan, [facility] [place] [facility] [address] [id number], [place] [address] Jan, [facility] [address] [id number] [place] [address] Jan, [facility] [address] [id number] [place] [address] December, [facility] [address] [id number] [place] [address]- [address] December, [facility] [address] [id number] [place] [address]- [address] December, [facility] [address] [id number] [place] [address] December, [facility] [address] [id number] [place] [address] Dec, [facility] [address] [id number] [place] [address] Dec, [facility] [address] [id number] [place] [address] Dec, [facility] [address] [id number] [place] [address] 29 Oct, 2012 [facility] [address] [facility] [id number] [place] [address] Oct, [facility] [address] [id number] [place] [address] Oct, [facility] [address] [id number] [place] [address] Oct, [facility] [address] [id number] [place] [address] Oct, [facility] [address] [facility] [id number] [place] [address] Oct, [facility] [address] [facility] [id number] [place] [address] 18 Oct, 2012 [facility] [address] [id number] [place] [address] Oct, [facility] [place] [facility] [address] [id number] [place] [address] Oct, [facility] [place] [facility] [address] [id number] [place] [address] 08 Oct, 2012 [facility] [place] [facility] [address] [id number] [place] [address] Oct, [facility] [place] [facility] [address] [id number] [place] [address] Sep, [facility] [place] [facility] [address] [id number] [place] [address] Sep, [facility] [address] [id number] [place] [address] Sep, [facility] [address] [id number] [place] [address]- [address] Aug, [facility] [place] [facility] [address] [id number] [place] [address]- [address]65 Aug, [facility] [place] [facility] [address] [id number] [place] [address] Aug, [facility] [place] [facility] [address] [id number] [place] [address] Aug, [facility] [place] [facility] [address] [id number] [place] [address] Jul, [facility] [place] [facility] [address] [id number] [place] [address] 69[address] Jul, [facility] [place] [facility] [address] [id number] [place] [address] Jul, [facility] [place] [facility] [address] [id number] [place] [address] 39[address] Jul, [facility] [place] [facility] [address] [id number] [place] [address] Jul, [facility] [place] [facility] [address] [id number] [place] [address]- 9310 Jul, [facility] [place] [facility] [address] [id number] [place] [address] 26[address] Jul, [facility] [place] [facility] [address] [id number] [place] [address]- 2436 Jul, [facility] [place] [facility] [address] [id number] [place] [address] 1527 Jun, [facility] [place] [facility] [address] [id number] [place] [address] Jun, [facility] [place] [facility] [address] [id number] [place] [address] Jun, [facility] [place] [facility] [address] [id number] [place] [address]- 4466 Jun, [facility] [place] [facility] [address] [id number] [place] [address]- [address] Jun, [facility] [place] [facility] [address] [id number] [place] [address]- 9529 May, [facility] [place] [facility] [address] [id number] [place] [address] 1436 May, [facility] [place] [facility] [address] [id number] [place] [address]- [address]446 18 May, 2012 [facility] [place] [facility] [address] [id number] [place] [address]- 6[address] May, [facility] [place] [facility] [address] [id number] [place] [address]- [address] May, [facility] [place] [facility] [address] [id number] [place] [address] Apr, [facility] [place] [facility] [address] [id number] [place] [address]- 77[address] Apr, [facility] [place] [facility] [address] [id number] [place] [address] Apr, [facility] [place] [facility] [address] [id number] [place] [address] Apr, [facility] [place] [facility] [address] [id number] [place] [address] Apr, [facility] [place] [facility] [address] [id number] [place] [address] Apr, [facility] [place] [facility] [address] [id number] [place] [address] Apr, [facility] [place] [facility] [address] [id number] [place] [address] Mar, [facility] [place] [facility] [address] [id number] [place] [address] Mar, [facility] [place] [facility] [address] [id number] [place] [address] Mar, [facility] [place] [facility] [address] [id number] [place] [address] Mar, [facility] [place] [facility] [address] [id number] [place] [address] Jan, [facility] [place] [facility] [address] [id number] [place] [address] Jan, [facility] [place] [facility] [address] [id number] [place] [address] Jan, [facility] [place] [facility] [address] [id number] [place] [address] Jan, [facility] [place] [facility] [address] [id number] [place] [address] Jan, [facility] [place] [facility] [address] [id number] [place] [address] Jan, [facility] [place] [facility] [address] [id number] [place] [address] December, [facility] [address] [id number] [place] [address] December, [facility] [place] [facility] [address] [id number] [place] [address] December, [facility] [place] [facility] [address] [id number] [place] [address] December, [facility] [place] [facility] [address] [id number] [place] [address]78 Dec, [facility] [place] [facility] [address] [id number] [place] [address] Dec, [facility] [place] [facility] [address] [id number] [place] [address] Oct, [facility] [place] [facility] [address] [id number] [place] [address] Oct, [facility] [place] [facility] [address] [id number] [place] [address] Oct, [facility] [place] [facility] [address] [id number] [place] [address] Oct, [facility] [place] [facility] [address] [id number] [place] [address] Oct, [facility] [place] [facility] [address] [id number] [place] [address]773 Oct, [facility] [place] [facility] [address] [id number] [place] [address] 7084 Oct, [facility] [place] [facility] [address] [id number] [place] [address]774 Oct, [facility] [place] [facility] [address] [id number] [place] [address] Oct, [facility] [place] [facility] [address] [id number] [place] [address] Oct, [facility] [place] [facility] [address] [id number] [place] [address]80 Oct, [facility] [address] [id number] [place] [address] Sep, [facility] [place] [facility] [address] [id number] [place] [address]- 2017 Sep, [facility] [address] [id number] [place] [address] Sep, [facility] [place] [facility] [address] [id number] [place] [address] Sep, [facility] [address] [id number] [place] [address] Sep, [facility] [place] [facility] [address] [id number] [place] [address] Sep, [facility] [address] [id number] [place] [address]678 Sep, [facility] [place] [facility] [address] [id number] [place] [address]47 Sep, [facility] [address] [id number] [place] [address] Aug, [facility] [place] [facility] [address] [id number] [place] [address] Aug, [facility] [place] [facility] [address] [id number] [place] [address] Aug, [facility] [place] [facility] [address] [id number] [place] [address] 39[address] Jul, [facility] [place] [facility] [address] [id number] [place] [address] Jul, [facility] [place] [facility] [address] [id number] [place] [address]- [address] 18 Jul, 2011 [facility] [place] [facility] [address] [id number] [place] [address] 17 Jul, 2011 [facility] [place] [facility] [address] [id number] [place] [address]- [address] 08 Jul, 2011 [facility] [place] [facility] [address] [id number] [place] [address]- 7837 02 Jul, 2011 [facility] [place] [facility] [address] [id number] [place] [address]- 7810 31 Jun, 2011 [facility] [place] [facility] [address] [id number] [place] [address]- [address] 20 Jun, 2011 [facility] [place] [facility] [address] [id number] [place] [address]- [address] 20 Mar, 2011 [facility] [place] [facility] [address] [id number] [place] [address]- [address] 14 Dec, 2010 [facility] [place] [facility] [address] [id number] [place] [address] 7932 Oct, [facility] [place] [facility] [address] [id number] [place] [address]87 Aug, [facility] [place] [facility] [address] [id number] [place] [address]- [address] 30 Jul, 2010 [facility] [place] [facility] [address] [id number] [place] [address] Jul, [facility] [place] [facility] [address] [id number] [place] [address] Jul, [facility] [place] [facility] [address] [id number] [place] [address]- 2085 Jul, [facility] [place] [facility] [address] [id number] [place] [address] 3119 Jul, [facility] [place] [facility] [address] [id number] [place] [address]- 3220 22 Aug, 2009 [facility] [place] [facility] [address] [id number] [place] [address]- [address]101 15 Aug, 2009 [facility] [place] [facility] [address] [id number], [place] [address] 14 Aug, 2009 [facility] [place] [facility] [address] [facility] [id number], [place] [address] Aug, [facility] [place] [facility] [address] [facility] [id number], [place] [address] Jul, [facility] [place] [facility] [id number] [address] Jul, [facility] [place] [facility] [id number] [address] Jul, [facility] [place] [facility] [address] [facility] [id number], [place] [address] Jul, [facility] [place] [facility] [id number] [address] Jun, [facility] [place] [facility] [address] [id number] [address] Jun, IMMUNIZATIONS No Known Immunizations SOCIAL HISTORY Never Assessed REASON FOR VISIT intake - Richard RAUSCH PLAN OF CARE Activity Details Follow Up 4 Weeks Reason: f/u VITAL SIGNS Height 64 in 2017-04-08 Weight 219.0 lbs 2017-04-08 Heart Rate 72 bpm 2017-04-08 Respiratory Rate 20 2017-04-08 BMI 37.59 kg/m2 2017-04-08 Blood pressure systolic 132 mmHg 2017-04-08 Blood pressure diastolic 86 mmHg 2017-04-08 MEDICATIONS Medication Instructions Dosage Frequency Start Date End Date Duration Status Effexor XR 150 MG Orally Once a day 2 capsule with food 24h Active Levothyroxine Sodium 100 MCG Orally Once a day 1 tablet 24h 30 Active Cyclobenzaprine HCl 10 mg Orally 2 times a day prn back pain 1 tablet as needed Oct, 10 Active HydrOXYzine HCl 25 MG Orally every 8 hrs 1 tablet as needed 8h 13 Jan, 2017 Active Folic Acid 1 MG Orally Once a day 1 tablet 24h December, December, 90 days Active Toprol XL 100 MG Orally Once a day 1 tablet at bedtime 24h 90 Active Requip 1 MG Orally twice a day 1 tablet 12h 90 days Active Doxepin HCl 25 MG Orally Once a day 1-2 capsules at bedtime 24h Active Fish Oil 1000 MG Orally 3 times a day 1 capsule 8h Active Albuterol Sulfate 90 mcg/actuation 2 puffs by Inhalation route every 4-6 hours as needed PRN cough or wheezing Aug, Active Ritalin 5 mg Orally Twice a day 1 tablet 12h 07 Apr, 2017 May, 28 days Active Pravastatin Sodium 80 MG TAKE ONE TABLET BY MOUTH AT BEDTIME (AVOID GRAPEFRUIT JUICE AND PRODUCTS WITH GRAPEFRUIT) 90 Active Pantoprazole Sodium 40 MG Orally Once a day 1 tablet 24h 90 Active RESULTS No Results PROCEDURES Procedure Date Ordered Result Body Site LAB NOT BILLED BY [facility] Apr 08, 2017 [facility] VISIT ESTABLISHED PATIENT Apr 08, 2017 INSTRUCTIONS MEDICATIONS ADMINISTERED No Known Medications [...]
--- OUTSIDE RECORDS SUMMARY | 2018-03-17 11:14 | XMS REPORT ---
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 Name Role Phone 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 Unavailable PROBLEMS Type Condition ICD9-CM Code [id number] Code Onset Dates Condition Status SNOMED Code Problem 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 Active 94242786 Problem Attention-deficit hyperactivity disorder, predominantly inattentive type F90.0 Active 98796654 Problem Obstructive sleep apnea G47.33 Active 82754986 Problem Primary insomnia F51.01 Active 8104203 Problem Neuralgia M79.2 Active 49975871 Problem Cannabis use disorder, mild, abuse F12.10 Active 50084981 Problem Folic acid deficiency E53.8 Active 300691017 Problem Restless legs G25.81 Active 38572595 Problem Major depressive disorder, recurrent, mild F33.0 Active 57165362 Problem Generalized anxiety disorder F41.1 Active 74880441 Problem Major depressive disorder, recurrent episode, moderate F33.1 Active 246662587 Problem Hypertension I10 Active 39823893 Problem Hyperlipidemia E78.5 Active 80031718 Problem Primary osteoarthritis of both knees M17.0 Active 997597330 Problem Chronic hepatitis K73.9 Active 78381783 Problem Low back pain M54.5 Active 052280221 Problem Chronic viral hepatitis B without delta-agent B18.1 Active 178948320 Problem Insomnia G47.00 Active 792212574 Problem Hypothyroid E03.9 Active 75675566 Problem Depression, major, recurrent, mild F33.0 Active 970445077 Problem Obesity due to excess calories, unspecified obesity severity E66.09 Active 687716771 ALLERGIES Substance Reaction Event Type Date Status Trazodone HCl "weird dreams" Drug Allergy Jan, Active ENCOUNTERS Encounter Location Date Diagnosis [facility] [id number], [place] [address] December, [facility] [id number] [place] [address] 14304- 5987 Dec, [facility] [id number] [place] [address] 57951- 4339 Oct, [facility] [id number] [place] [address] 47805- 2654 Oct, Syncope, unspecified syncope type R55 ; Primary insomnia F51.01 ; Dry mouth R68.2 and Cannabis use disorder, mild, abuse F12.10 [facility] [id number] [place] [address] 53637- 8949 Oct, [facility] [address] 32935- 9061 Sep, [facility] [id number] [place] [address] 48188- 2808 Sep, [facility] [address] 19296- 8645 Sep, [facility] [id number] [place] [address] [id number] Sep, Dental examination Z01.20 [facility] [id number] [place] [address] 29797- 2602 Sep, Dental examination Z01.20 [facility] [id number] [place] [address] 64750- 7348 Sep, Sinus congestion R09.81 ; Mouth sores K13.79 ; Low back pain M54.5 and Mouth swelling R22.0 [facility] [id number] [place] [address] 11320- 2678 Aug, Low back pain M54.5 [facility] [id number] [place] [address] 43673- 7441 Aug, Low back pain M54.5 [facility] [id number] [place] [address] 43726- 3247 Jul, [facility] [address] 19751- 5094 Jul, 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 ; Encounter for immunization Z23 ; Hypothyroid E03.9 ; Decreased renal function N28.9 and Muscle cramps R25.2 [facility] [address] 88505- 7034 Jul, [facility] [address] 57699- 1099 Jul, [place] [address] 93732- 2338 Jul, [place] [address] 09139- 7520 Jul, Major depressive disorder, recurrent, mild F33.0 [place] [address] 18418- 5270 Jul, Acquired cyst of kidney N28.1 ; Acidosis E87.2 and Hyperkalemia E87.5 [place] [address] 22284- 0106 Jul, Major depressive disorder, recurrent, mild F33.0 ; Attention -deficit hyperactivity disorder, predominantly inattentive type F90.0 and Generalized anxiety disorder F41.1 [place] [address] 12470- 6122 Jul, Low back pain M54.5 [facility] [address] 28844- 5925 Jun, Cough R05 ; Low back pain M54.5 and Pre-syncope R55 [place] [address] 47864- 4897 Jun, Low back pain M54.5 [facility] [address] [id number] 04 Jun, 2017 Dental caries K02.9 [place] [address] [place] [address]- 0018 Jun, [facility] [address] 30281- 4785 Jun, Major depressive disorder, recurrent, mild F33.0 ; Attention -deficit hyperactivity disorder, predominantly inattentive type F90.0 and Generalized anxiety disorder F41.1 [place] [id number] [place] [address] 57003- 3028 May, Vertigo R42 ; Confusion R41.0 ; Weakness R53.1 and Vision changes H53.9 [place] [address] 55936- 5348 May, [place] [id number] [place] [address] 69801- 7726 May, [place] [id number] [place] [address] 48089- 3223 May, Low back pain M54.5 [facility] [id number] [place] [address] 69138- 7607 05 May, 2017 Major depressive disorder, recurrent, mild F33.0 ; Attention -deficit hyperactivity disorder, predominantly inattentive type F90.0 and Generalized anxiety disorder F41.1 [place] [id number] [place] [address] 90377- 1167 May, [place] [id number] [place] [address] 91211- 7573 May, Acute worsening of stage 3 chronic kidney disease N18.3 [place] [id number] [place] [address] 99334- 8096 Apr, [place] [address] 78118- 5873 14 Apr, 2017 Acute allergic rhinitis due to pollen, unspecified seasonality J30.1 ; Restless legs G25.81 and Low back pain M54.5 [facility] [id number] [place] [address] 30374- 9663 Apr, Primary osteoarthritis of both knees M17.0 [facility] [id number] [place] [address] 57355- 3681 Apr, Generalized anxiety disorder F41.1 [facility] [id number] [place] [address] 27893- 2706 Apr, Major depressive disorder, recurrent, mild F33.0 ; Attention -deficit hyperactivity disorder, predominantly inattentive type F90.0 and Generalized anxiety disorder F41.1 [facility] [id number] [place] [address] 13358- 5240 Apr, [facility] [address] 76451- 9739 Mar, Major depressive disorder, recurrent episode, moderate F33.1 ; Generalized anxiety disorder F41.1 and ADHD, predominantly inattentive type F90.0 [facility] [id number] [place] [address] 56191 -1710 Mar, Abscess L02.91 [facility] [id number] [place] [address] 48004- 3878 Mar, 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 [facility] [id number] [place] [address] 23730- 9167 Mar, Decreased renal function N28.9 [facility] [id number] [place] [address] [id number] Mar, Dental examination Z01.20 [facility] [id number] [place] [address] 52039- 0811 Mar, 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 [facility] [id number] [place] [address] 15448- 7250 Mar, 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 [facility] [address] [id number] Mar, Dental examination Z01.20 and Dental caries K02.9 [facility] [id number] [place] [address] 45391- 0102 Mar, Chronic viral hepatitis B without delta-agent B18.1 ; Folic acid deficiency E53.8 ; 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 and Decreased renal function N28.9 [place] [id number] [place] [address] 89732- 6702 Mar, Major depressive disorder, recurrent, mild F33.0 [place] [id number] [place] [address] 48657- 0184 Mar, [place] [id number] [place] [address] 05434- 4107 Mar, Chronic hepatitis K73.9 ; 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 ; Localized edema R60.0 ; Illicit drug use F19.90 ; Vision changes H53.9 and Obesity due to excess calories, unspecified obesity severity E66.09 [place] [id number] [place] [address] 62641- 5433 Jan, Major depressive disorder, recurrent, mild F33.0 [place] [id number] [place] [address] 92032- 3313 Jan, Chronic viral hepatitis B without delta-agent B18.1 [place] [id number] [place] [address] 42239- 3694 Jan, [place] [id number] [place] [address] 66825- 9186 Jan, Weight gain R63.5 ; Hypothyroid E03.9 ; 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 ; Decreased renal function N28.9 and Chronic viral hepatitis B without delta-agent B18.1 [place] [id number] [place] [address] 32280- 7800 December, Major depressive disorder, recurrent, mild F33.0 and Generalized anxiety disorder F41.1 [place] [id number] [place] [address] 85556- 8981 December, Obesity due to excess calories, unspecified obesity severity E66.09 and Folic acid deficiency E53.8 [place] [address], [place] [address]- 2316 December, Folic acid deficiency E53.8 [facility] [id number] [place] [address] 13489- 3653 December, Folic acid deficiency E53.8 [facility] [id number] [place] [address] 58001- 4904 December, Obesity due to excess calories, unspecified obesity severity E66.09 [facility] [id number] [place] [address] 57892- 9216 December, [facility] [id number] [place] [address] 58092- 7319 December, Folic acid deficiency E53.8 [facility] [id number] [place] [address] [id number] December, Encounter for other administrative examinations Z02.89 [facility] [id number] [place] [address] 36304- 0100 Dec, [facility] [id number] [place] [address] [id number] Dec, Dental caries K02.9 [place] [id number] [place] [address] 15049- 8694 Oct, Bone pain M89.8X9 [place] [id number] [place] [address] 47574- 7183 Oct, Hypothyroid E03.9 [facility] [id number] [place] [address] 77989- 6965 24 Oct, 2016 Hypothyroid E03.9 [facility] [id number] [place] [address] 77198- 0661 13 Oct, 2016 Breast cancer screening Z12.39 [facility] [id number] [place] [address] [id number] 08 Oct, 2016 Dental examination Z01.20 [facility] [id number] [place] [address] 09820- 7008 Oct, [place] [id number] [place] [address] 49260- 9296 Oct, Major depressive disorder, recurrent, mild F33.0 and Generalized anxiety disorder F41.1 [place] [id number] [place] [address] 68748- 5377 Oct, [place] [id number] [place] [address] 48561- 3520 Oct, Hypothyroid E03.9 [place] [id number] [place] [address] 96275- 1222 Sep, Hypothyroid E03.9 ; Chronic viral hepatitis B without delta- agent B18.1 and Folic acid deficiency E53.8 [place] [id number] [place] [address] 59620- 2654 Sep, Hypothyroidism, unspecified type E03.9 ; Elevated parathyroid hormone E34.9 and Chronic viral hepatitis B without delta-agent B18.1 [place] [id number] [place] [address] 56424- 4390 Sep, [place] [id number] [place] [address] 61206- 6371 Sep, Elevated parathyroid hormone E34.9 [place] [id number] [place] [address] 30136- 0104 Sep, [place] [id number] [place] [address] 46881- 5312 Sep, Chronic hepatitis K73.9 ; Bone pain M89.8X9 and Abnormal complete blood count R79.89 [place] [id number] [place] [address] 90147- 0035 Aug, Major depressive disorder, recurrent, mild F33.0 [place] [id number] [place] [address] 26811- 2082 Aug, Bone pain M89.8X9 [facility] [id number] [place] [address] 19611- 1839 Aug, [facility] [id number] [place] [address] 22277- 6290 Jul, Chronic viral hepatitis B without delta-agent B18.1 [place] [address] 75387- 4105 Jul, Hypothyroidism, unspecified type E03.9 [place] [address] 02563- 0890 Jul, [place] [address] 97110- 8724 Jul, Chronic hepatitis K73.9 and Hypothyroid E03.9 [place] [address] 38936- 2570 Jul, Low back pain M54.5 [facility] [id number] [place] [address] 35831- 6454 Jun, Depression, major, recurrent, mild F33.0 and ADD (attention deficit disorder) F90.0 [place] [id number] [place] [address] 12850- 0523 Jun, [place] [id number] [place] [address] 86065- 4158 Jun, Low back pain M54.5 [facility] [id number] [place] [address] 57781- 3802 Jun, Encounter for immunization Z23 ; Major depressive disorder, recurrent, mild F33.0 and Attention-deficit hyperactivity disorder, predominantly inattentive type F90.0 [place] [id number] [place] [address] 41512- 0178 Jun, [place] [id number] [place] [address] 20447- 6631 Jun, Low back pain M54.5 [facility] [id number] [place] [address] 40198- 0585 29 May, 2015 [facility] [address] 92634- 0724 May, [facility] [id number] [place] [address] 70099- 7565 May, Essential (primary) hypertension I10 [facility] [address] 83205- 8036 May, Low back pain M54.5 [facility] [id number] [place] [address] 57419- 6861 12 May, 2016 Low back pain M54.5 ; Chronic hepatitis K73.9 and Hypothyroid E03.9 [facility] [address] 77510- 2648 May, Hypothyroidism, unspecified type E03.9 [facility] [id number] [place] [address] 18188- 2232 08 May, 2016 Low back pain M54.5 [facility] [address] 63580- 6901 May, [facility] [id number] [place] [address] 88107- 3384 May, [facility] [id number] [place] [address] 78221- 5965 May, Major depressive disorder, recurrent, moderate F33.1 ; Generalized anxiety disorder F41.1 ; Insomnia G47.00 and ADD (attention deficit disorder) F90.0 [facility] [id number] [place] [address] 35319- 6816 Apr, Low back pain M54.5 [facility] [id number] [place] [address] 66956- 1435 Apr, [facility] [address] 69291- 7181 Apr, Low back pain M54.5 [place] [id number] [place] [address] 72828- 7233 Apr, Low back pain M54.5 ; Tooth pain K08.8 and Seasonal allergic rhinitis due to pollen J30.1 [facility] [id number] [place] [address] 81737- 1272 Apr, Low back pain M54.5 [facility] [id number] [place] [address] 65042- 4525 Apr, [facility] Pap smear of vagina R87.622 [place] [address] 45912- 8822 Apr, Low back pain M54.5 [place] [id number] [place] [address] 49597- 8768 Mar, [place] [address] 58281- 2781 Mar, Low back pain M54.5 [facility] [id number] [place] [address] 91557- 5731 Mar, Encounter for Papanicolaou smear for cervical cancer screening Z12.4 ; Encounter for routine gynecological examination Z01.419 and Breast cancer screening Z12.39 [place] [id number] [place] [address] 88671- 4124 18 Mar, 2016 Hypothyroidism, unspecified type E03.9 [place] [id number] [place] [address] 83681- 0281 14 Mar, 2016 Low back pain M54.5 ; Other chronic pain G89.29 ; Hypothyroid E03.9 and Hypothyroidism, unspecified type E03.9 [place] [id number] [place] [address] 17868- 7550 12 Mar, 2016 Major depressive disorder, recurrent, moderate F33.1 and Attention-deficit hyperactivity disorder, predominantly inattentive type F90.0 [facility] [address], [place] [address] -6966 Mar, Bronchitis J40 [facility] [id number] [place] [address] 87714- 1616 Jan, [facility] [id number] [place] [address] 36616- 4458 Jan, [facility] [id number] [place] [address] 56505- 7520 Jan, Insomnia G47.00 [facility] [id number] [place] [address] 14441- 7806 December, [facility] [id number] [place] [address] 48779- 5227 December, Major depressive disorder in partial remission F32.4 and Attention-deficit hyperactivity disorder, unspecified type F90.9 [facility] [id number] [place] [address] 00672- 1809 December, [facility] [id number] [place] [address] 75012- 7512 December, [facility] [id number] [place] [address] 58800- 2185 Dec, [facility] [id number] [place] [address] 92522- 9374 Dec, Major depressive disorder, recurrent episode, moderate 296.32 and Attention deficit disorder of childhood without mention of hyperactivity 314.00 [facility] [address] [address]- 3120 Dec, Major depressive disorder, recurrent episode, mild 296.31 ; ADD (attention deficit disorder) F90.0 and Hyperlipidemia E78.5 [facility] [address], [place] [address]- 0550 Dec, Insomnia G47.00 [facility] [id number] [place] [address] 32326- 1004 Dec, Attention-deficit hyperactivity disorder, predominantly inattentive type F90.0 [facility] [address], [place] [address]- 2688 Oct, Restless legs syndrome G25.81 [facility] [id number] [address]- 8555 Oct, Hypothyroidism, unspecified type E03.9 [facility] [id number] [place] [address] 04673- 2650 Oct, [facility] [id number] [place] [address] 80682- 2609 Oct, [facility] [id number] [place] [address] 66229- 6554 15 Nov, 2015 Hypothyroid E03.9 and Chronic hepatitis K73.9 [facility] [id number] [place] [address] 40092- 8964 Oct, [facility] [id number] [place] [address] 16611- 4667 Oct, Restless legs syndrome G25.81 ; Chronic hepatitis K73.9 ; Hypertension I10 ; Hypothyroid E03.9 and Breast cancer screening Z12.39 [facility] [address] [address]- 1390 Oct, [facility] [address], [place] [address]- 3477 Oct, [facility] [address], [place] [address]- 7891 Oct, [facility] [address] [address]- 2883 Oct, [facility] [address] [place] [address]- 8425 Oct, [facility] [address], [place] [address] Oct, [facility] [address], [place] [address] 05 Oct, 2015 [facility] [id number] [place] [address] Sep, [facility] [address], [place] [address] Sep, Attention-deficit hyperactivity disorder, predominantly inattentive type F90.0 and Major depressive disorder in partial remission F32.4 [facility] [id number] [place] [address] Sep, [facility] [id number] [place] [address]- [address] Aug, [facility] [id number] [place] [address]- [address] Aug, [facility] [id number] [place] [address]- [address] Aug, Major depressive disorder, recurrent, mild F33.0 ; Attention -deficit hyperactivity disorder, unspecified type F90.9 and Generalized anxiety disorder F41.1 [facility] [id number] [place] [address]- [address] 08 Aug, 2015 Chronic hepatitis K73.9 ; Primary osteoarthritis of both knees M17.0 and Neuralgia M79.2 [facility] [address], [place] [address] Jul, [facility] [id number], [place] [address] Jul, [facility] [id number] [place] [address]- [address] Jul, [facility] [address], [place] [address] Jul, [facility] [address], [place] [address] Jun, [facility] [id number] [place] [address]- [address] Jun, Bronchitis J40 and Encounter for immunization Z23 [facility] [id number] [place] [address]- [address] 30 May, 2015 [facility] [address] [address] May, [facility] [address] [address]- [address] May, [facility] [id number] [place] [address] 22208- 8518 May, Hypokalemia 276.8 [facility] [id number] [place] [address] 91273- 9798 08 May, 2015 Major depressive disorder, recurrent episode, mild 296.31 ; Attention deficit disorder of childhood without mention of hyperactivity 314.00 and Generalized anxiety disorder 300.02 [facility] [id number] [place] [address] 16375- 9680 May, Hypertension 401.9 and Hypokalemia 276.8 [facility] [id number] [place] [address] 62598- 2752 May, [facility] [id number] [place] [address] 71480- 4166 Apr, [facility] [id number] [place] [address] 36921- 6636 Apr, [facility] [id number] [place] [address] 00892- 5884 Apr, [facility] [id number] [place] [address] 65825- 4419 Apr, [facility] [id number] [place] [address] 14105- 9816 Mar, [facility] [id number] [place] [address] 61785- 7655 Mar, [facility] [address], [place] [address] 5353 Mar, [facility] [id number] [place] [address] 63437- 9483 Mar, [facility] [id number] [place] [address] 21756- 7041 Mar, Arthritis of both knees 716.96 ; Hepatitis B 070.30 ; Hypertension 401.9 ; Carpal tunnel syndrome 354.0 and Cubital tunnel syndrome 354.2 [facility] [address], [place] [address] 4554 Mar, [facility] [id number] [place] [address] 59032- 3020 Mar, [facility] [id number] [place] [address] 35587- 5880 Mar, 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, chronic, without mention of hepatitis delta 070.32 ; Chronic hepatitis C without mention of hepatic coma 070.54 and Major depressive disorder, recurrent episode, moderate 296.32 [facility] [address], [place] [address] 1050 Jan, [facility] [address], [place] [address] 1124 Jan, Major depressive disorder, recurrent episode, mild 296.31 and Attention deficit disorder of childhood without mention of hyperactivity 314.00 [facility] [address], [place] [address]- 9297 Jan, [facility] [id number] [place] [address] 44901- 9733 Jan, [facility] [id number] [place] [address] 25206- 7366 December, Attention deficit disorder of childhood without mention of hyperactivity 314.00 ; Major depressive disorder, recurrent episode, mild 296.31 and Generalized anxiety disorder 300.02 [facility] [address] [facility] [id number] [place] [address]- 0097 08 Dec, 2014 [facility] [place] [facility] [address] [id number] [place] [address]- 8619 14 Dec, 2014 [facility] [place] [facility] [address] [id number] [place] [address]- 1586 13 Dec, 2014 [facility] [place] [facility] [address] [id number] [place] [address]- 1440 19 Oct, 2014 [facility] [place] [facility] [address] [id number] [place] [address]- 4043 19 Oct, 2014 [facility] [place] [facility] [address] [id number] [place] [address]- 4539 18 Oct, 2014 [facility] [place] [facility] [address] [id number] [place] [address]- 4122 18 Oct, 2014 [facility] [place] [facility] [address] [id number] [place] [address]- 4583 18 Oct, 2014 [facility] [place] [facility] [address] [id number] [place] [address]- 2865 18 Oct, 2014 [facility] [place] [facility] [address] [id number] [place] [address]- 5749 16 Oct, 2014 [facility] [place] [facility] [address] [id number] [place] [address]- 4457 13 Oct, 2014 [facility] [place] [facility] [address] [id number] [place] [address]- 6617 13 Oct, 2014 [facility] [place] [facility] [address] [id number] [place] [address]- 1837 12 Oct, 2014 [facility] [place] [facility] [address] [id number] [place] [address]- 4862 12 Oct, 2014 [facility] [place] [facility] [address] [id number] [place] [address]- 1206 10 Oct, 2014 [facility] [place] [facility] [address] [id number] [place] [address]- 9387 Oct, [facility] [place] [facility] [address] [id number] [place] [address]- 2569 Oct, [facility] [place] [facility] [address] [id number] [place] [address]- 8596 Oct, [facility] [place] [facility] [address] [id number] [place] [address]- 3649 Oct, 2014 [facility] [place] [facility] [address] [id number] [place] [address]- 4168 Oct, 2014 [facility] [place] [facility] [address] [id number] [place] [address]- 0794 Oct, 2014 [facility] [place] [facility] [address] [facility] [id number] [place] [address]- 6223 Oct, 2014 [facility] [place] [facility] [address] [facility] [id number] [place] [address]- 0627 18 Oct, 2014 [facility] [place] [facility] [address] [facility] [id number] [place] [address]- 0931 Oct, 2014 [facility] [place] [facility] [address] [facility] [id number] [place] [address]- 9579 Oct, 2014 [facility] [place] [facility] [address] [facility] [id number] [place] [address]- 5540 Oct, 2014 [facility] [place] [facility] [address] [facility] [id number] [place] [address]- 4308 Oct, 2014 [facility] [place] [facility] [address] [facility] [id number] [place] [address]- 7435 Oct, 2014 [facility] [place] [facility] [address] [id number] [place] [address]- 8098 Oct, 2014 [facility] [place] [facility] [address] [facility] [id number] [place] [address]- 8771 10 Oct, 2014 [facility] [place] [facility] [address] [facility] [id number] [place] [address]- 2010 10 Fe2014 [facility] [place] [facility] [address] [id number] [place] [address]- 9270 Sep, [facility] [place] [facility] [address] [id number] [place] [address]- 8743 Sep, [facility] [place] [facility] [address] [id number] [place] [address]- 0772 Sep, [facility] [place] [facility] [address] [id number] [place] [address]- 2358 Sep, [facility] [place] [facility] [address] [id number] [place] [address]- 0965 Sep, [facility] [place] [facility] [address] [id number] [place] [address]- 9961 Sep, [facility] [place] [facility] [address] [id number] [place] [address]- 9222 Sep, [facility] [place] [facility] [address] [id number] [place] [address]- 3933 Sep, [facility] [place] [facility] [address] [id number] [place] [address]- 3881 Sep, [facility] [place] [facility] [address] [id number] [place] [address]- 7796 Sep, [facility] [place] [facility] [address] [id number] [place] [address]- 7948 Sep, [facility] [place] [facility] [address] [id number] [place] [address]- 8262 Sep, [facility] [place] [facility] [address] [id number] [place] [address]- 4553 Sep, [facility] [place] [facility] [address] [id number] [place] [address]- 7960 Sep, [facility] [place] [facility] [address] [id number] [place] [address]- 8601 Sep, [facility] [place] [facility] [address] [id number] [place] [address]- 3086 Sep, [facility] [place] [facility] [address] [id number] [place] [address]- 2840 Aug, [facility] [place] [facility] [address] [id number] [place] 3576 Aug, [facility] [place] [facility] [address] [id number] [place] [address]- 0976 Aug, [facility] [place] [facility] [address] [id number] [place] 2979 Aug, [facility] [place] [facility] [address] [id number] [place] [address]- 1105 Aug, [facility] [place] [facility] [address] [id number] [place] [address]- 7251 Aug, [facility] [place] [facility] [address] [id number] [place] [address]- 3711 Aug, [facility] [place] [facility] [address] [id number] [place] [address]- 8414 Aug, [facility] [place] [facility] [address] [id number] [place] [address]- 4866 19 Aug, 2014 [facility] [place] [facility] [address] [id number] [place] [address]- 2836 18 Aug, 2014 [facility] [place] [facility] [address] [id number] [place] [address]- 5249 18 Aug, 2014 [facility] [place] [facility] [address] [id number] [place] [address]- 2623 16 Aug, 2014 [facility] [place] [facility] [address] [id number] [place] [address]- 5776 16 Aug, 2014 [facility] [place] [facility] [address] [id number] [place] [address]- 3923 15 Aug, 2014 [facility] [place] [facility] [address] [id number] [place] [address]- 6495 15 Aug, 2014 [facility] [place] [facility] [address] [id number] [place] [address]- 4901 Aug, [facility] [address] [id number] [place] [address]- 4903 Aug, [facility] [place] [facility] [address] [id number] [place] [address]- 7928 Aug, [facility] [place] [facility] [address] [id number] [place] [address]- 1183 Aug, [facility] [place] [facility] [address] [id number] [place] [address]- 6379 Aug, [facility] [place] [facility] [address] [id number] [place] [address]- 3986 Aug, [facility] [place] [facility] [address] [id number] [place] [address]- 9084 Aug, [facility] [place] [facility] [address] [id number] [place] [address]- 9415 Aug, [facility] [place] [facility] [address] [id number] [place] [address]- 1117 Aug, [facility] [place] [facility] [address] [id number] [place] [address]- 5082 Aug, [facility] [place] [facility] [address] [id number] [place] [address]- 1229 Jul, [facility] [place] [facility] [address] [id number] [place] [address]- 5529 Jul, [facility] [place] [facility] [address] [id number] [place] [address]- 0357 Jul, [facility] [place] [facility] [address] [id number] [place] [address]- 3281 Jul, [facility] [place] [facility] [address] [id number] [place] [address]- 8472 Jul, [facility] [place] [facility] [address] [id number] [place] [address]- 8623 Jul, [facility] [place] [facility] [address] [id number] [place] [address]- 2579 Jun, [facility] [place] [facility] [address] [id number] [place] [address]- 5436 Jun, [facility] [place] [facility] [address] [id number] [place] [address]- 3540 Jun, [facility] [place] [facility] [address] [id number] [place] [address]- 0573 Jun, [facility] [place] [facility] [address] [id number] [place] [address]- 0214 Jun, [facility] [place] [facility] [address] [id number] [place] [address]- 0416 Jun, [facility] [place] [facility] [address] [id number] [place] [address]- 3420 Jun, [facility] [place] [facility] [address] [id number] [place] [address]- 5331 Jun, [facility] [place] [facility] [address] [id number] [place] [address]- 0305 16 May, 2014 [facility] [place] [facility] [address] [id number] [place] [address]- 7635 16 May, 2014 [facility] [place] [facility] [address] [id number], [place] [address]- 6570 15 May, 2014 [facility] [place] [facility] [address] [id number], [place] [address]- 1530 15 May, 2013 [facility] [place] [facility] [address] [id number] [place] [address]- 3475 08 May, 2014 [facility] [place] [facility] [address] [id number] [place] [address]- 4502 08 May, 2013 [facility] [place] [facility] [address] [id number], [place] [address]- 6205 08 May, 2013 [facility] [place] [facility] [address] [id number], [place] [address]- 8532 May, [facility] [place] [facility] [address] [id number] [place] [address]- 2328 Apr, [facility] [place] [facility] [address] [id number] [place] [address]- 1615 Apr, [facility] [place] [facility] [address] [id number] [place] [address]- 7067 Apr, [facility] [place] [facility] [address] [id number] [place] [address]- 0181 Apr, [facility] [place] [facility] [address] [id number] [place] [address]- 5473 Apr, [facility] [place] [facility] [address] [id number] [place] [address]- 1910 Apr, [facility] [place] [facility] [address] [id number] [place] [address]- 5735 Apr, [facility] [place] [facility] [address] [id number] [place] [address]- 5702 Apr, [facility] [place] [facility] [address] [id number] [place] [address]- 1299 Apr, [facility] [place] [facility] [address] [id number] [place] [address]- 9605 Apr, [facility] [place] [facility] [address] [id number] [place] [address]- 4706 Apr, [facility] [place] [facility] [address] [id number] [place] [address]- 2667 Apr, [facility] [place] [facility] [address] [id number] [place] [address]- 5327 Apr, [facility] [place] [facility] [address] [id number] [place] [address]- 3581 Mar, [facility] [place] [facility] [address] [id number] [place] [address]- 4355 Mar, [facility] [place] [facility] [address] [id number] [place] [address]- 8872 Mar, [facility] [place] [facility] [address] [id number] [place] [address]- 9150 Mar, [facility] [place] [facility] [address] [id number] [place] [address]- 1174 Jan, [facility] [place] [facility] [address] [id number] [place] [address]- 3754 Jan, [facility] [place] [facility] [address] [id number] [place] [address]- 5903 December, [facility] [place] [facility] [address] [id number] [place] [address]- 2019 December, [facility] [place] [facility] [address] [id number] [place] [address]- 0815 December, [facility] [place] [facility] [address] [id number] [place] [address]- 8889 December, [facility] [place] [facility] [address] [id number] [place] [address]- 4331 December, [facility] [place] [facility] [address] [id number] [place] [address]- 6191 December, [facility] [place] [facility] [address] [id number] [place] [address]- 5473 December, [facility] [place] [facility] [address] [id number] [place] [address]- 2382 December, [facility] [place] [facility] [address] [id number] [place] [address]- 3404 Dec, [facility] [place] [facility] [address] [id number] [place] [address]- 8980 Dec, [facility] [place] [facility] [address] [id number] [place] [address]- 2167 Dec, [facility] [place] [facility] [address] [id number] [place] [address]- 1224 Dec, [facility] [place] [facility] [address] [id number] [place] [address]- 3878 Oct, [facility] [place] [facility] [address] [id number] [place] [address]- 0056 Oct, [facility] [place] [facility] [address] [id number] [place] [address]- 1213 Oct, [facility] [place] [facility] [address] [id number] [place] [address]- 6464 Oct, [facility] [place] [facility] [address] [id number] [place] [address]- 6421 Oct, [facility] [place] [facility] [address] [id number] [place] [address]- 4158 Oct, [facility] [place] [facility] [address] [id number] [place] [address]- 6465 Oct, [facility] [place] [facility] [address] [id number] [place] [address]- 0616 Oct, [facility] [place] [facility] [address] [id number] [place] [address]- 7238 Oct, [facility] [place] [facility] [address] [id number] [place] [address]- 5090 Oct, [facility] [place] [facility] [address] [id number] [place] [address]- 6315 Oct, [facility] [place] [facility] [address] [id number] [place] [address]- 4829 Oct, [facility] [place] [facility] [address] [id number] [place] [address]- 6517 Oct, [facility] [place] [facility] [address] [id number] [place] [address]- 1028 Oct, [facility] [place] [facility] [address] [id number] [place] [address]- 3167 Oct, [facility] [place] [facility] [address] [id number] [place] [address]- 7950 10 Oct, 2013 [facility] [place] [facility] [address] [id number] [place] [address]- 7045 Oct, 2013 [facility] [place] [facility] [address] [id number] [place] [address]- 9756 Oct, 2013 [facility] [place] [facility] [address] [id number] [place] [address]- 2543 Oct, 2013 [facility] [place] [facility] [address] [id number] [place] [address]- 3425 Oct, 2013 [facility] [place] [facility] [address] [id number] [place] [address]- 4907 Oct, [facility] [place] [facility] [address] [id number] [place] [address]- 0543 Oct, [facility] [place] [facility] [address] [id number] [place] [address]- 8013 Sep, [facility] [place] [facility] [address] [id number] [place] [address]- 5440 Sep, [facility] [place] [facility] [address] [id number] [place] [address]- 0050 Sep, [facility] [place] [facility] [address] [id number] [place] [address]- 7802 Sep, [facility] [place] [facility] [address] [id number] [place] [address]- 5653 Aug, [facility] [place] [facility] [address] [id number] [place] [address]- 7829 Aug, [facility] [place] [facility] [address] [id number] [place] [address]- 5464 Aug, [facility] [place] [facility] [address] [id number] [place] [address]- 8630 Aug, [facility] [place] [facility] [address] [id number], [place] [address] Aug, [facility] [place] [facility] [address] [id number] [place] [address] Aug, [facility] [place] [facility] [address] [id number] [place] [address] Aug, [facility] [place] [facility] [address] [id number] [place] [address] Aug, [facility] [place] [facility] [address] [id number] [place] [address] Aug, [facility] [place] [facility] [address] [id number] [place] [address] Jul, [facility] [place] [facility] [address] [id number] [place] [address] Jul, [facility] [place] [facility] [address] [id number], [place] [address] Jul, [facility] [place] [facility] [address] [id number], [place] [address] Jul, [facility] [place] [facility] [address] [id number], [place] [address] Jul, [facility] [place] [facility] [address] [id number], [place] [address] Jul, [facility] [place] [facility] [address] [id number], [place] [address] Jul, [facility] [place] [facility] [address] [id number], [place] [address] Jul, [facility] [place] [facility] [address] [id number], [place] [address] Jun, [facility] [place] [facility] [address] [id number], [place] [address] Jun, [facility] [place] [facility] [address] [id number], [place] [address] Jun, [facility] [place] [facility] [address] [id number] [place] [address] Jun, [facility] [address] [id number] [place] [address] Jun, [facility] [place] [facility] [address] [id number] [place] [address] Jun, [facility] [place] [facility] [address] [id number] [place] [address] Jun, [facility] [place] [facility] [address] [id number] [place] [address] Jun, [facility] [place] [facility] [address] [id number] [place] [address] 30 May, 2013 [facility] [place] [facility] [address] [id number] [place] [address] 26 May, 2013 [facility] [place] [facility] [address] [id number] [place] [address]- [address] 23 May, 2013 [facility] [address] [id number] [place] [address] 19 May, 2013 [facility] [place] [facility] [address] [id number] [place] [address] 12 May, 2013 [facility] [place] [facility] [address] [id number] [place] [address] 11 May, 2013 [facility] [place] [facility] [address] [id number] [place] [address] Apr, [facility] [place] [facility] [address] [id number] [place] [address] Apr, [facility] [place] [facility] [address] [id number] [place] [address] 08 Apr, 2013 [facility] [place] [facility] [address] [id number] [place] [address] Apr, [facility] [place] [facility] [address] [id number] [place] [address] Apr, [facility] [place] [facility] [address] [id number] [place] [address] Apr, [facility] [place] [facility] [address] [id number] [place] [address] Apr, [facility] [place] [facility] [address] [id number] [place] [address] Mar, [facility] [place] [facility] [address] [id number] [place] [address] Mar, [facility] [place] [facility] [address] [id number] [place] [address] Mar, [facility] [place] [facility] [address] [id number] [place] [address] Mar, [facility] [place] [facility] [address] [id number] [place] [address] Mar, [facility] [place] [facility] [address] [id number] [place] [address] Mar, [facility] [place] [facility] [address] [id number] [place] [address] Mar, [facility] [place] [facility] [address] [id number] [place] [address] Jan, [facility] [place] [facility] [address] [id number] [place] [address] Jan, [facility] [place] [facility] [address] [id number] [place] [address] Jan, [facility] [place] [facility] [address] [id number] [place] [address]- [address] Jan, [facility] [place] [facility] [address] [id number] [place] [address]- [address] Jan, [facility] [place] [facility] [address] [id number] [place] [address]- [address] Jan, [facility] [place] [facility] [address] [id number] [place] [address] Jan, [facility] [address] [id number] [place] [address] December, [facility] [address] [id number] [place] [address] December, [facility] [address] [id number] [place] [address] December, [facility] [address] [id number] [place] [address] December, [facility] [address] [id number] [place] [address]- [address] 30 Dec, 2012 [facility] [address] [id number] [place] [address] Dec, [facility] [address] [id number] [place] [address] Dec, [facility] [address] [id number] [place] [address] Oct, [facility] [address] [id number] [place] [address] Oct, [facility] [address] [id number] [place] [address] Oct, [facility] [address] [id number] [place] [address]- [address] Oct, [facility] [address] [id number] [place] [address]- [address] Oct, [facility] [address] [id number] [place] [address]- 8710 Oct, [facility] [address] [id number] [place] [address]- [address] Oct, [facility] [address] [id number] [place] [address]- [address]265 Oct, [facility] [address] [id number] [place] [place] [address] Oct, [facility] [address] [id number] [place] [address] Oct, [facility] [place] [facility] [address] [id number] [place] [address] Oct, [facility] [address] [id number] [place] [address] Sep, [facility] [address] [id number] [place] [address] Sep, [facility] [address] [id number] [place] [address] Sep, [facility] [address] [id number] [place] [address] Aug, [facility] [address] [id number] [place] [address] Aug, [facility] [address] [id number] [place] [address] Aug, [facility] [address] [id number] [place] [address] Aug, [facility] [address] [facility] [id number] [place] [address] Jul, [facility] [place] [facility] [address] [id number] [place] [address] Jul, [facility] [place] [facility] [address] [id number] [place] [address] Jul, [facility] [place] [facility] [address] [id number] [place] [address] Jul, [facility] [place] [facility] [address] [id number] [place] [address] Jul, [facility] [place] [facility] [address] [id number] [place] [address] Jul, [facility] [place] [facility] [address] [id number] [place] [address] Jul, [facility] [place] [facility] [address] [id number] [place] [address] Jul, [facility] [place] [facility] [address] [id number] [place] [address] Jun, [facility] [place] [facility] [address] [id number] [place] [address] Jun, [facility] [place] [facility] [address] [id number] [place] [address] Jun, [facility] [place] [facility] [address] [id number] [place] [address] Jun, [facility] [place] [facility] [address] [id number] [place] [address] 1481 Jun, [facility] [place] [facility] [address] [id number] [place] [address]- [address] May, [facility] [place] [facility] [address] [id number] [place] [address] 20 May, 2012 [facility] [place] [facility] [address] [id number] [place] [address] 18 May, 2012 [facility] [place] [facility] [address] [id number] [place] [address]26 May, [facility] [place] [facility] [address] [id number] [place] [address] May, [facility] [place] [facility] [address] [id number] [place] [address] Apr, [facility] [place] [facility] [address] [id number] [place] [address] Apr, [facility] [place] [facility] [address] [id number] [place] [address] Apr, [facility] [place] [facility] [address] [id number] [place] [address]36 Apr, [facility] [place] [facility] [address] [id number] [place] [address]28 Apr, [facility] [place] [facility] [address] [id number] [place] [address] 65[address] Apr, [facility] [place] [facility] [address] [id number] [place] [address] Apr, [facility] [place] [facility] [address] [id number] [place] [address] Mar, [facility] [place] [facility] [address] [id number] [place] [address] Mar, [facility] [place] [facility] [address] [id number] [place] [address] Mar, [facility] [place] [facility] [address] [id number] [place] [address] Mar, [facility] [place] [facility] [address] [id number] [place] [address] Jan, [facility] [place] [facility] [address] [id number] [place] [address] Jan, [facility] [place] [facility] [address] [id number] [place] [address]- 9[address] Jan, [facility] [place] [facility] [address] [id number] [place] [address] 3214 Jan, [facility] [place] [facility] [address] [id number] [place] [address]- [address] Jan, [facility] [place] [facility] [address] [id number] [place] [address]- [address] Jan, [facility] [place] [facility] [address] [id number] [place] [address]- 1267 December, [facility] [place] [facility] [address] [id number] [place] [address]26 December, [facility] [place] [facility] [address] [id number] [place] [address]- [address] December, [facility] [place] [facility] [address] [id number] [place] [address]- 4886 December, [facility] [place] [facility] [address] [id number] [place] [address]- 6414 Dec, [facility] [place] [facility] [address] [id number] [place] [address]- 9387 Dec, [facility] [place] [facility] [address] [id number] [place] [address] 9099 Oct, [facility] [place] [facility] [address] [id number] [place] [address]- 0892 Oct, [facility] [place] [facility] [address] [id number] [place] [address] 9[address] Oct, [facility] [place] [facility] [address] [id number] [place] [address] 5874 Oct, [facility] [place] [facility] [address] [id number] [place] [address]105 Oct, [facility] [place] [facility] [address] [id number] [place] [address]- 75[address] Oct, [facility] [place] [facility] [address] [id number] [place] [address]- 8154 Oct, [facility] [place] [facility] [address] [id number] [place] [address]- 1232 Oct, [facility] [place] [facility] [address] [id number] [place] [address]- 6117 Oct, [facility] [place] [facility] [address] [id number] [place] [address]- 8306 Oct, [facility] [place] [facility] [address] [id number] [place] [address]- 7366 Oct, [facility] [place] [facility] [address] [id number] [place] [address]- 59[address] Sep, [facility] [address] [id number] [place] [address]- 9733 Sep, [facility] [place] [facility] [address] [id number] [place] [address]- 5593 Sep, [facility] [address] [id number] [place] [address]- 8160 Sep, [facility] [place] [facility] [address] [id number] [place] [address]- 8668 Sep, [facility] [place] [facility] [address] [id number] [place] [address]- 8394 Sep, [facility] [place] [facility] [address] [id number] [place] [address]- 8502 Sep, [facility] [address] [id number] [place] [address]- 6277 Sep, [facility] [place] [facility] [address] [id number] [place] [address]- 1998 Aug, [facility] [place] [facility] [address] [id number] [place] [address]- 7505 Aug, [facility] [place] [facility] [address] [id number] [place] [address]- 6249 Aug, [facility] [place] [facility] [address] [id number] [place] [address]- 0458 29 Jul, 2011 [facility] [place] [facility] [address] [id number] [place] [address]- 1840 28 Jul, 2011 [facility] [place] [facility] [address] [id number] [place] [address]- 5[address] 18 Jul, 2011 [facility] [place] [facility] [address] [id number] [place] [address]- 5900 17 Jul, 2011 [facility] [place] [facility] [address] [id number] [place] [address]- 9953 08 Jul, 2011 [facility] [place] [facility] [address] [id number] [place] [address]- 2716 Jul, [facility] [address] [id number] [place] [address]- 4782 Jun, [facility] [place] [facility] [address] [id number] [place] [address]- 4112 Jun, [facility] [place] [facility] [address] [id number] [place] [address]- 9085 Mar, [facility] [address] [id number] [place] [address]- 5500 Dec, [facility] [place] [facility] [address] [id number] [place] [address]- 1882 Oct, [facility] [address] [id number] [place] [address]- 6739 Aug, [facility] [address] [id number] [place] [address]- 1294 30 Jul, 2010 [facility] [address] [id number] [place] [address]- 1197 Jul, [facility] [address] [id number] [place] [address]- 9441 Jul, [facility] [place] [facility] [address] [id number] [place] [address]- 7295 Jul, [facility] [place] [facility] [address] [id number] [place] [address]- 1170 Jul, [facility] [place] [facility] [address] [id number] [place] [address]- 7572 22 Aug, 2009 [facility] [place] [facility] [address] [id number] [place] [address]- 8177 15 Aug, 2009 [facility] [place] [facility] [address] [id number] [place] [address]- 6025 14 Aug, 2009 [facility] [place] [facility] [address] [id number], [place] [address] Aug, [facility] [address] [facility] [id number], [place] [address] Jul, [facility] [address] [facility] [id number], [place] [address]70 Jul, [facility] [address] [facility] [id number], [place] [address] Jul, [facility] [address] [facility] [id number], [place] [address]- [address] Jul, [facility] [address] [facility] [id number], [place] [address]- [address] Jun, [facility] [address] [facility] [id number], [place] [address]- [address] Jun, IMMUNIZATIONS No Known Immunizations SOCIAL HISTORY Never Assessed REASON FOR VISIT Weight management, follow up on blood work CBrumback RN PLAN OF CARE Activity Details Follow Up 3 Months Reason:decreased kidney function VITAL SIGNS Height 64 in 2017-02-06 Weight 225.8 lbs 2017-02-06 Temperature 98.1 degrees Fahrenheit 2017-02-06 Heart Rate 80 bpm 2017-02-06 Respiratory Rate 18 2017-02-06 BMI 38.75 kg/m2 2017-02-06 Blood pressure systolic 148 mmHg 2017-02-06 Blood pressure diastolic 100 mmHg 2017-02-06 MEDICATIONS Medication Instructions Dosage Frequency Start Date End Date Duration Status Lisinopril 20 MG Orally Once a day 1 tablet 24h 30 Active Pravastatin Sodium 80 MG TAKE ONE TABLET BY MOUTH AT BEDTIME (AVOID GRAPEFRUIT JUICE AND PRODUCTS WITH GRAPEFRUIT) 90 Active Toprol XL 100 MG Orally Once a day 1 tablet at bedtime 24h 90 Active Pantoprazole Sodium 40 MG Orally Once a day 1 tablet 24h 90 Active Folic Acid 1 MG Orally Once a day 1 tablet 24h December, December, 90 days Active Effexor XR 150 MG Orally Once a day 2 capsule with food 24h 30 Active Doxepin HCl 25 MG Orally Once a day 1-2 capsules at bedtime 24h Active Neurontin 300 MG Orally 2 times a day 1 capsule 12h 15 Aug, 2016 30 days Active Truvada 200-300 mg Orally Once a day 1 tablet 24h 30 Active Requip 1 MG Orally twice a day 1 tablet 12h 90 days Active Albuterol Sulfate 90 mcg/actuation 2 puffs by Inhalation route every 4-6 hours as needed PRN cough or wheezing Aug, Active MetFORMIN HCl ER 500 mg Orally twice a day 1 tablet with evening meal 12h Jan, 30 day(s) Active Levothyroxine Sodium 100 MCG Orally Once a day 1 tablet 24h 30 Active Fish Oil 1000 MG Orally 3 times a day 1 capsule 8h Active Cyclobenzaprine HCl 10 mg Orally 2 times a day prn back pain 1 tablet as needed Oct, Active Loratadine 10 mg Orally Once a day as needed for allergies 1 tablet Apr, Active HydrOXYzine HCl 10 MG Orally daily 1 tablet BID as needed for anxiety 24h Oct, Active RESULTS Name Result Date Reference Range HEP B SURFACE ANTIBODY 2017-02-06 Hep B Surface Ab, Qual Non Reactive TSH 2017-02-06 TSH 1.610 0.450-4.500 PROCEDURES Procedure Date Ordered Result Body [facility] February 06, 2017 [facility] VISIT ESTABLISHED PATIENT February 06, 2017 MONICA, ROUTINE* February 06, 2017 INSTRUCTIONS MEDICATIONS ADMINISTERED No Known Medications [...]
--- OUTSIDE RECORDS SUMMARY | 2018-03-17 11:16 | XMS REPORT ---
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 Active 16585584 Problem Attention-deficit hyperactivity disorder, predominantly inattentive type F90.0 Active 46172737 Problem Obstructive sleep apnea G47.33 Active 05164960 Problem Primary insomnia F51.01 Active 7802194 Problem Neuralgia M79.2 Active 54564551 Problem Cannabis use disorder, mild, abuse F12.10 Active 64336222 Problem Folic acid deficiency E53.8 Active 868184101 Problem Restless legs G25.81 Active 33512906 Problem Major depressive disorder, recurrent, mild F33.0 Active 63726936 Problem Generalized anxiety disorder F41.1 Active 89637376 Problem Major depressive disorder, recurrent episode, moderate F33.1 Active 585019291 Problem Hypertension I10 Active 84712257 Problem Hyperlipidemia E78.5 Active 92577108 Problem Primary osteoarthritis of both knees M17.0 Active 651247327 Problem Chronic hepatitis K73.9 Active 42244749 Problem Low back pain M54.5 Active 772390149 Problem Chronic viral hepatitis B without delta-agent B18.1 Active 514919648 Problem Insomnia G47.00 Active 844553037 Problem Hypothyroid E03.9 Active 10956032 Problem Depression, major, recurrent, mild F33.0 Active 937953650 Problem Obesity due to excess calories, unspecified obesity severity E66.09 Active 266112889 ALLERGIES No Information ENCOUNTERS Encounter Location Date Diagnosis [facility] [id number] [address] Dec, Bone pain M89.8X9 [facility] [id number] [address] Dec, [facility] [address] [address] Oct, [facility] [address] [address]- [address] Oct, Syncope, unspecified syncope type R55 ; Primary insomnia F51.01 ; Dry mouth R68.2 and Cannabis use disorder, mild, abuse F12.10 [facility] [address] [address]- 8963 Oct, [facility] [address] [address]- 4916 Sep, [facility] [address] 8[address]- 1834 Sep, [facility] [address] [address]- [address]64 Sep, [facility] [address] [id number] Sep, Dental examination Z01.20 [facility] [address] 127[address]- 0926 Sep, Dental examination Z01.20 [facility] [address] 14263- 1751 Sep, Sinus congestion R09.81 ; Mouth sores K13.79 ; Low back pain M54.5 and Mouth swelling R22.0 [facility] [id number] [place] [address] 97504- 1438 Aug, Low back pain M54.5 [facility] [address] [address]- 5715 Aug, Low back pain M54.5 [facility] [address] 08370- 9742 Jul, [facility] [address] 63960- 0888 Jul, Encounter for immunization Z23 ; 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 ; Hypothyroid E03.9 ; Decreased renal function N28.9 and Muscle cramps R25.2 [facility] [address] [address]- 3099 Jul, [facility] [address] 28670- 1570 Jul, [facility] [address] [address]- 8218 Jul, [place] [address] [address]- 7919 Jul, Major depressive disorder, recurrent, mild F33.0 [place] [address] 34[address]- 2116 08 Jul, 2017 Acquired cyst of kidney N28.1 ; Acidosis E87.2 and Hyperkalemia E87.5 [place] [address] 1947[address]- 2007 Jul, Major depressive disorder, recurrent, mild F33.0 ; Attention -deficit hyperactivity disorder, predominantly inattentive type F90.0 and Generalized anxiety disorder F41.1 [place] [address] 00[address]- 8559 Jul, Low back pain M54.5 [facility] [address] 28[address]- 0637 Jun, Cough R05 ; Low back pain M54.5 and Pre-syncope R55 [facility] [address] 49[address]- 5230 Jun, Low back pain M54.5 [facility] [address] [id number] Jun, Dental caries K02.9 [facility] [address] 25[address]- 4446 Jun, [place] [id number] [place] [address] 68956- 3173 Jun, Major depressive disorder, recurrent, mild F33.0 ; Attention -deficit hyperactivity disorder, predominantly inattentive type F90.0 and Generalized anxiety disorder F41.1 [place] [id number] [place] [address] 40967- 6777 May, Vertigo R42 ; Confusion R41.0 ; Weakness R53.1 and Vision changes H53.9 [place] [id number] [place] [address] 88780- 6382 May, [place] [address] 81606- 2031 May, [place] [id number] [place] [address] 53528- 8396 May, Low back pain M54.5 [place] [address] 92035- 3526 05 May, 2017 Major depressive disorder, recurrent, mild F33.0 ; Attention -deficit hyperactivity disorder, predominantly inattentive type F90.0 and Generalized anxiety disorder F41.1 [place] [id number] [place] [address] 20399- 8318 May, [place] [id number] [place] [address] 98566- 8828 May, Acute worsening of stage 3 chronic kidney disease N18.3 [place] [id number] [place] [address] 64334- 1306 Apr, [place] [id number] [place] [address] 02569- 6027 Apr, Acute allergic rhinitis due to pollen, unspecified seasonality J30.1 ; Restless legs G25.81 and Low back pain M54.5 [place] [id number] [place] [address] 84478- 7228 Apr, Primary osteoarthritis of both knees M17.0 [facility] [address] [place] [address] 73126- 6246 Apr, Generalized anxiety disorder F41.1 [facility] [id number] [place] [address] Apr, Major depressive disorder, recurrent, mild F33.0 ; Attention -deficit hyperactivity disorder, predominantly inattentive type F90.0 and Generalized anxiety disorder F41.1 [facility] [id number] [place] [address] 82681- 9491 Apr, [facility] [id number] [place] [address] 43251- 4480 Mar, Major depressive disorder, recurrent episode, moderate F33.1 ; Generalized anxiety disorder F41.1 and ADHD, predominantly inattentive type F90.0 [facility] [id number] [place] [address] 48456 -2094 Mar, Abscess L02.91 [facility] [id number] [place] [address] 78812- 3011 Mar, 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 [facility] [id number] [place] [address] 61884- 2002 Mar, Decreased renal function N28.9 [facility] [id number] [place] [address] [id number] Mar, Dental examination Z01.20 [facility] [id number] [place] [address] 32329- 8668 Mar, 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 [facility] [id number] [place] [address] 02462- 9305 Mar, 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 [facility] [id number] [place] [address] [id number] Mar, Dental examination Z01.20 and Dental caries K02.9 [facility] [id number] [place] [address] 31003- 1250 Mar, Chronic viral hepatitis B without delta-agent B18.1 ; Folic acid deficiency E53.8 ; 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 and Decreased renal function N28.9 [place] [id number] [place] [address] 14249- 3925 Mar, Major depressive disorder, recurrent, mild F33.0 [place] [id number] [place] [address] 98065- 4550 Mar, [place] [id number] [place] [address] 54497- 9417 Mar, Chronic hepatitis K73.9 ; 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 ; Localized edema R60.0 ; Illicit drug use F19.90 ; Vision changes H53.9 and Obesity due to excess calories, unspecified obesity severity E66.09 [place] [id number] [place] [address] 02264- 5813 Jan, Major depressive disorder, recurrent, mild F33.0 [place] [id number] [place] [address] 95303- 3667 Jan, Chronic viral hepatitis B without delta-agent B18.1 [place] [id number] [place] [address] 23361- 0328 Jan, [place] [id number] [place] [address] 06175- 2985 Jan, Weight gain R63.5 ; Hypothyroid E03.9 ; 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 ; Decreased renal function N28.9 and Chronic viral hepatitis B without delta-agent B18.1 [place] [address] [place] [address] 20302- 7146 December, Major depressive disorder, recurrent, mild F33.0 and Generalized anxiety disorder F41.1 [place] [address] [place] [address] 75449- 9657 December, Obesity due to excess calories, unspecified obesity severity E66.09 and Folic acid deficiency E53.8 [place] [id number] [place] [address] 18694- 9576 December, Folic acid deficiency E53.8 [facility] [address] [address]- 0375 December, Folic acid deficiency E53.8 [facility] [address] [address]- 2261 December, Obesity due to excess calories, unspecified obesity severity E66.09 [facility] [address] [place] [address] 65516- 3854 December, [facility] [id number] [place] [address] 97341- 5000 December, Folic acid deficiency E53.8 [facility] [id number] [place] [address] [id number] December, Encounter for other administrative examinations Z02.89 [facility] [id number] [place] [address] 43590- 4644 Dec, [facility] [id number] [place] [address] [id number] Dec, Dental caries K02.9 [place] [id number] [place] [address] 13638- 1697 Oct, Bone pain M89.8X9 [place] [id number] [place] [address] 59044- 6376 Oct, Hypothyroid E03.9 [facility] [id number] [place] [address] 14137- 7064 24 Oct, 2016 Hypothyroid E03.9 [facility] [id number] [place] [address] 36498- 6850 13 Oct, 2016 Breast cancer screening Z12.39 [facility] [address] [place] [address] [id number] 08 Oct, 2016 Dental examination Z01.20 [facility] [id number] [place] [address] 34770- 4993 Oct, [place] [address] [place] [address] 51347- 8313 Oct, Major depressive disorder, recurrent, mild F33.0 and Generalized anxiety disorder F41.1 [place] [address] [place] [address] 94226- 7757 Oct, [place] [id number] [place] [address] 51729- 7622 Oct, Hypothyroid E03.9 [place] [id number] [place] [address] 44013- 3291 Sep, Hypothyroid E03.9 ; Chronic viral hepatitis B without delta- agent B18.1 and Folic acid deficiency E53.8 [place] [id number] [place] [address] 52440- 0842 Sep, Hypothyroidism, unspecified type E03.9 ; Elevated parathyroid hormone E34.9 and Chronic viral hepatitis B without delta-agent B18.1 [place] [id number] [place] [address] 90482- 9260 Sep, [place] [id number] [place] [address] 65830- 3129 Sep, Elevated parathyroid hormone E34.9 [place] [id number] [place] [address] 28402- 4756 Sep, [place] [id number] [place] [address] 89474- 6730 Sep, Chronic hepatitis K73.9 ; Bone pain M89.8X9 and Abnormal complete blood count R79.89 [place] [id number] [place] [address] 40173- 3380 Aug, Major depressive disorder, recurrent, mild F33.0 [place] [address] [place] [address] 79666- 1677 Aug, Bone pain M89.8X9 [place] [id number] [place] [address] 40635- 0740 Aug, [facility] [address] 82136- 9369 Jul, Chronic viral hepatitis B without delta-agent B18.1 [facility] [address] 39527- 5515 Jul, Hypothyroidism, unspecified type E03.9 [facility] [address] 94491- 2992 Jul, [facility] [address] 84273- 5302 Jul, Chronic hepatitis K73.9 and Hypothyroid E03.9 [place] [address] 12045- 9389 Jul, Low back pain M54.5 [place] [address] 10850- 4606 Jun, Depression, major, recurrent, mild F33.0 and ADD (attention deficit disorder) F90.0 [place] [address] 49069- 0729 Jun, [facility] [address] 74126- 8755 Jun, Low back pain M54.5 [place] [address] 21938- 1213 Jun, Encounter for immunization Z23 ; Major depressive disorder, recurrent, mild F33.0 and Attention-deficit hyperactivity disorder, predominantly inattentive type F90.0 [place] [address] 49130- 2142 Jun, [facility] [address] 64536- 1362 Jun, Low back pain M54.5 [facility] [address] [place] [address]- 6588 29 May, 2015 [facility] [id number] [place] [address] 57161- 9628 29 May, 2015 [facility] [id number] [place] [address] 63575- 3112 29 May, 2015 Essential (primary) hypertension I10 [facility] [address] 48607- 1771 19 May, 2015 Low back pain M54.5 [facility] [id number] [place] [address] 72944- 1176 12 May, 2015 Low back pain M54.5 ; Chronic hepatitis K73.9 and Hypothyroid E03.9 [facility] [id number] [place] [address] 74956- 4716 09 May, 2016 Hypothyroidism, unspecified type E03.9 [facility] [id number] [place] [address] 16160- 2102 08 May, 2015 Low back pain M54.5 [facility] [id number] [place] [address] 73710- 8971 07 May, 2015 [facility] [id number] [place] [address] 43434- 7876 06 May, 2015 [facility] [id number] [place] [address] 90146- 9608 May, 2016 Major depressive disorder, recurrent, moderate F33.1 ; Generalized anxiety disorder F41.1 ; Insomnia G47.00 and ADD (attention deficit disorder) F90.0 [facility] [id number] [place] [address] 73832- 0664 Apr, Low back pain M54.5 [facility] [id number] [place] [address] 53771- 1529 Apr, [facility] [id number] [place] [address] 62117- 3976 Apr, Low back pain M54.5 [facility] [id number] [place] [address] 76866- 2656 Apr, Low back pain M54.5 ; Tooth pain K08.8 and Seasonal allergic rhinitis due to pollen J30.1 [facility] [id number] [place] [address] 58305- 6298 Apr, Low back pain M54.5 [place] [address] 40431- 8105 Apr, [facility] Pap smear of vagina R87.622 [place] [address] 18253- 9739 Apr, Low back pain M54.5 [place] [id number] [place] [address] 87050- 9921 Mar, [place] [address] 37632- 2933 Mar, Low back pain M54.5 [place] [address] 54252- 5110 Mar, Encounter for Papanicolaou smear for cervical cancer screening Z12.4 ; Encounter for routine gynecological examination Z01.419 and Breast cancer screening Z12.39 [place] [id number] [place] [address] 59173- 0684 18 Mar, 2016 Hypothyroidism, unspecified type E03.9 [place] [id number] [place] [address] 24106- 6264 14 Mar, 2016 Low back pain M54.5 ; Other chronic pain G89.29 ; Hypothyroid E03.9 and Hypothyroidism, unspecified type E03.9 [place] [address] 97264- 6806 12 Mar, 2016 Major depressive disorder, recurrent, moderate F33.1 and Attention-deficit hyperactivity disorder, predominantly inattentive type F90.0 [facility] [id number] [place] [address] 00473 -3047 Mar, Bronchitis J40 [facility] [address] [place] [address] 91787- 0781 Jan, [facility] [id number] [place] [address] 51083- 3288 Jan, [facility] [id number] [place] [address] 70112- 2373 Jan, Insomnia G47.00 [facility] [id number] [place] [address] 55376- 2858 December, [facility] [id number] [place] [address] 74988- 2341 December, Major depressive disorder in partial remission F32.4 and Attention-deficit hyperactivity disorder, unspecified type F90.9 [place] [id number] [place] [address] 52334- 7849 December, [facility] [id number] [place] [address] 16141- 7558 December, [facility] [id number] [place] [address] 66509- 7044 Dec, [facility] [id number] [place] [address] 99418- 9962 Dec, Major depressive disorder, recurrent episode, moderate 296.32 and Attention deficit disorder of childhood without mention of hyperactivity 314.00 [facility] [address] [place] [address] 40180- 8370 Dec, Major depressive disorder, recurrent episode, mild 296.31 ; ADD (attention deficit disorder) F90.0 and Hyperlipidemia E78.5 [facility] [address] [place] [address] 96164- 8106 Dec, Insomnia G47.00 [facility] [address] [place] [address] 91036- 3707 Dec, Attention-deficit hyperactivity disorder, predominantly inattentive type F90.0 [facility] [address] [address]- 5204 Oct, Restless legs syndrome G25.81 [facility] [id number] [place] [address] 18650- 4975 Oct, Hypothyroidism, unspecified type E03.9 [facility] [id number] [place] [address] 59788- 2582 Oct, [facility] [id number] [place] [address] 16948- 5730 Oct, [facility] [id number] [place] [address] 04193- 2497 15 Nov, 2015 Hypothyroid E03.9 and Chronic hepatitis K73.9 [facility] [id number] [place] [address] 40347- 8116 Oct, [facility] [id number] [place] [address] 67525- 8135 08 Nov, 2015 Restless legs syndrome G25.81 ; Chronic hepatitis K73.9 ; Hypertension I10 ; Hypothyroid E03.9 and Breast cancer screening Z12.39 [facility] [id number] [place] [address] 75522- 6921 Oct, [facility] [id number] [place] [address] 88652- 6361 Oct, [facility] [id number] [place] [address] 24118- 9442 Oct, [facility] [id number] [place] [address] 40557- 4444 Oct, [facility] [id number] [place] [address] 57198- 8430 Oct, [facility] [address] [place] [address] 36336- 9611 Oct, [facility] [id number] [address]- 2100 05 Oct, 2015 [facility] [id number] [place] [address] 96481- 5412 Sep, [facility] [id number] [place] [address] 35341- 9922 Sep, Attention-deficit hyperactivity disorder, predominantly inattentive type F90.0 and Major depressive disorder in partial remission F32.4 [facility] [id number] [place] [address] 86690- 6090 Sep, [facility] [id number] [place] [address] 27738- 3363 Aug, [facility] [id number] [place] [address] 03241- 0131 Aug, [facility] [id number] [place] [address] 94892- 5022 Aug, Major depressive disorder, recurrent, mild F33.0 ; Attention -deficit hyperactivity disorder, unspecified type F90.9 and Generalized anxiety disorder F41.1 [facility] [id number] [place] [address] 76846- 7503 08 Aug, 2015 Chronic hepatitis K73.9 ; Primary osteoarthritis of both knees M17.0 and Neuralgia M79.2 [facility] [address] [address]- 4765 Jul, [facility] [id number] [place] [address] [phone]- 8837 Jul, [facility] [id number] [address] Jul, [facility] [id number] [place] [address] 30935- 0342 Jul, [facility] [id number] [place] [address] 84007- 7868 Jun, [facility] [id number] [place] [address] 73246- 0853 Jun, Encounter for immunization Z23 and Bronchitis J40 [facility] [id number] [place] [address] [id number]- 4130 30 May, 2015 [facility] [id number] [place] [address] 60001- 6317 May, [facility] [id number] [place] [address] 96522- 6310 May, [facility] [id number] [place] [address] 96558- [phone] May, Hypokalemia 276.8 [facility] [id number] [place] [address] 86908- 1346 08 May, 2015 Major depressive disorder, recurrent episode, mild 296.31 ; Attention deficit disorder of childhood without mention of hyperactivity 314.00 and Generalized anxiety disorder 300.02 [facility] [id number] [place] [address] 35589- 6066 May, Hypertension 401.9 and Hypokalemia 276.8 [facility] [id number] [place] [address] 30439- 8618 May, [facility] [id number] [place] [address] 61672- 8266 Apr, [facility] [id number] [place] [address] 38431- 8180 Apr, [facility] [id number] [place] [address] 52815- 5809 Apr, [facility] [id number] [place] [address] [id number]- 0902 Apr, [facility] [id number] [place] [address] 63557- 2988 Mar, [facility] [id number] [place] [address] 92861- 4640 Mar, [facility] [id number] [address] Mar, [facility] [id number] [place] [address] 17999- 0993 Mar, [facility] [address] [id number] [place] [address] [id number] 2481 Mar, Arthritis of both knees 716.96 ; Hepatitis B 070.30 ; Hypertension 401.9 ; Carpal tunnel syndrome 354.0 and Cubital tunnel syndrome 354.2 [facility] [id number] [place] [address] 02155- 8913 Mar, [facility] [id number] [place] [address] 44919- 4092 Mar, [facility] [id number] [place] [address] 24899- 1736 Mar, 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, chronic, without mention of hepatitis delta 070.32 ; Chronic hepatitis C without mention of hepatic coma 070.54 and Major depressive disorder, recurrent episode, moderate 296.32 [place] [id number] [place] [address] 61569- 4985 Jan, [facility] [id number] [place] [address] 25296- 9079 Jan, Major depressive disorder, recurrent episode, mild 296.31 and Attention deficit disorder of childhood without mention of hyperactivity 314.00 [facility] [id number] [address] Jan, [facility] [id number] [address] 9241 Jan, [facility] [id number] [place] [address] 98660- 6708 December, Attention deficit disorder of childhood without mention of hyperactivity 314.00 ; Major depressive disorder, recurrent episode, mild 296.31 and Generalized anxiety disorder 300.02 [facility] [id number] [place] [address] 56399- 2546 08 Dec, 2014 [facility] [place] [facility] [address] [id number] [place] [address]- 6751 14 Dec, 2014 [facility] [place] [facility] [address] [id number] [place] [address]- 5032 13 Dec, 2014 [facility] [place] [facility] [address] [id number] [place] [address]- 6763 19 Oct, 2014 [facility] [place] [facility] [address] [id number] [place] [address]- 2426 19 Oct, 2014 [facility] [place] [facility] [address] [id number] [place] [address]- 2719 18 Oct, 2014 [facility] [place] [facility] [address] [id number] [place] [address]- 1604 18 Oct, 2014 [facility] [place] [facility] [address] [id number] [place] [address]- 4395 18 Oct, 2014 [facility] [place] [facility] [address] [id number] [place] [address]- 7278 18 Oct, 2014 [facility] [place] [facility] [address] [id number] [place] [address]- 2150 16 Oct, 2014 [facility] [place] [facility] [address] [id number] [place] [address]- 6256 13 Oct, 2014 [facility] [place] [facility] [address] [id number] [place] [address]- 9000 13 Oct, 2014 [facility] [place] [facility] [address] [id number] [place] [address]- 4989 12 Oct, 2014 [facility] [place] [facility] [address] [id number] [place] [address]- 4275 12 Oct, 2014 [facility] [place] [facility] [address] [id number] [place] [address]- 0286 10 Oct, 2014 [facility] [place] [facility] [address] [id number] [place] [address]- 4821 10 Oct, 2014 [facility] [place] [facility] [address] [id number] [place] [address]- 9648 Oct, 2014 [facility] [place] [facility] [address] [id number] [place] [address]- 8270 Oct, 2014 [facility] [place] [facility] [address] [id number] [place] [address]- 3526 Oct, 2014 [facility] [place] [facility] [address] [id number] [place] [address]- 7649 Oct, 2014 [facility] [place] [facility] [address] [id number] [place] [address]- 7425 25 Oct, 2014 [facility] [place] [facility] [address] [id number] [place] [address]- 4008 Oct, 2014 [facility] [place] [facility] [address] [facility] [place] [facility] [id number] [place] [address]- 4096 18 Oct, 2014 [facility] [place] [facility] [address] [facility] [place] [id number] [place] [address]- 8389 17 Oct, 2014 [facility] [place] [facility] [address] [facility] [place] [id number] [place] [address]- 7930 17 Oct, 2014 [facility] [place] [facility] [address] [facility] [place] [id number] [place] [address]- 1303 Oct, 2014 [facility] [place] [facility] [address] [facility] [place] [id number] [place] [address]- 4367 11 Oct, 2014 [facility] [place] [facility] [address] [facility] [place] [id number] [place] [address]- 2544 Oct, 2014 [facility] [place] [facility] [address] [facility] [place] [id number] [place] [address]- 2545 Oct, 2014 [facility] [place] [facility] [address] [id number] [place] [address]- 8497 10 Oct, 2014 [facility] [place] [facility] [address] [facility] [place] [id number] [place] [address]- 3841 10 Oct, 2014 [facility] [place] [facility] [address] [facility] [place] [id number] [place] [address]- 1563 Sep, [facility] [place] [facility] [address] [id number] [place] [address]- 4802 Sep, [facility] [place] [facility] [address] [id number] [place] [address]- 8391 Sep, [facility] [place] [facility] [address] [id number] [place] [address]- 8989 Sep, [facility] [place] [facility] [address] [id number] [place] [address]- 9343 Sep, [facility] [place] [facility] [address] [id number] [place] [address]- 6337 Sep, [facility] [place] [facility] [address] [id number] [place] [address]- 0386 Sep, [facility] [place] [facility] [address] [id number] [place] [address]- 5403 Sep, [facility] [place] [facility] [address] [id number] [place] [address]- 0842 Sep, [facility] [place] [facility] [address] [id number] [place] [address]- 4791 Sep, [facility] [place] [facility] [address] [id number] [place] [address]- 4269 Sep, [facility] [place] [facility] [address] [id number] [place] [address]- 7263 Sep, [facility] [place] [facility] [address] [id number] [address]- 4315 Sep, [facility] [place] [facility] [address] [id number] [place] [address]- 0709 Sep, [facility] [place] [facility] [address] [id number] [place] [address]- 3993 Sep, [facility] [place] [facility] [address] [id number], [place] [address]- 4264 Sep, [facility] [place] [facility] [address] [id number] [place] [address]- 7076 Aug, [facility] [place] [facility] [address] [id number] [place] [address]- 3596 Aug, [facility] [place] [facility] [address] [id number] [place] [address]- 3476 Aug, [facility] [place] [facility] [address] [id number] [place] [address]- 4376 Aug, [facility] [place] [facility] [address] [id number] [place] [address]- 8146 Aug, [facility] [place] [facility] [address] [id number] [place] [address]- 2496 Aug, [facility] [place] [facility] [address] [id number] [place] [address]- 5610 Aug, [facility] [place] [facility] [address] [id number] [place] [address]- 3502 Aug, [facility] [place] [facility] [address] [id number] [place] [address]- 9718 19 Aug, 2014 [facility] [place] [facility] [address] [id number] [place] [address]- 1052 18 Aug, 2014 [facility] [place] [facility] [address] [id number] [place] [address]- 8564 18 Aug, 2014 [facility] [place] [facility] [address] [id number] [place] [address]- 0406 16 Aug, 2014 [facility] [place] [facility] [address] [id number] [place] [address]- 9266 16 Aug, 2014 [facility] [place] [facility] [address] [id number] [place] [address]- 4756 15 Aug, 2014 [facility] [place] [facility] [address] [id number] [place]666 15 Aug, 2014 [facility] [place] [facility] [address] [id number] [place] [address]- 6959 Aug, [facility] [place] [facility] [address] [id number] [place] [address]- 9286 Aug, [facility] [place] [facility] [address] [id number] [place] [address]- 9145 Aug, [facility] [place] [facility] [address] [id number] [place] [address]- 2611 Aug, [facility] [place] [facility] [address] [id number] [place] [address]- 0825 Aug, [facility] [place] [facility] [address] [id number] [place] [address]- 1345 Aug, [facility] [place] [facility] [address] [id number] [place] [address]- 2234 Aug, [facility] [place] [facility] [address] [id number] [place] [address]- 1849 Aug, [facility] [place] [facility] [address] [id number] [place] [address]- 4019 Aug, [facility] [place] [facility] [address] [id number] [place] [address]- 3463 Aug, [facility] [place] [facility] [address] [id number] [place] [address]- 9461 Jul, [facility] [place] [facility] [address] [id number], [place] [address]- 2852 Jul, [facility] [place] [facility] [address] [id number], [place] [address]- 3419 Jul, [facility] [place] [facility] [address] [id number] [place] [address]- 5988 Jul, [facility] [place] [facility] [address] [id number], [place] [address]- 6520 Jul, [facility] [place] [facility] [address] [id number], [place] [address]- 8818 Jul, [facility] [place] [facility] [address] [id number] [place] [address]- 2271 Jun, [facility] [place] [facility] [address] [id number] [place] [address]- 0889 Jun, [facility] [place] [facility] [address] [id number] [place] [address]- 8805 Jun, [facility] [place] [facility] [address] [id number] [place] [address]- 9259 Jun, [facility] [place] [facility] [address] [id number] [place] [address]- 8188 Jun, [facility] [place] [facility] [address] [id number] [place] [address]- 0903 Jun, [facility] [place] [facility] [address] [id number] [place] [address]- 9801 Jun, [facility] [place] [facility] [address] [id number] [place] [address]- 1813 Jun, [facility] [place] [facility] [address] [id number] [place] [address]- 7051 16 Sep, 2013 [facility] [place] [facility] [address] [id number] [place] [address]- 2548 16 Sep, 2013 [facility] [place] [facility] [address] [facility] [place] [id number] [place] [address]- 8862 15 Sep, 2013 [facility] [place] [facility] [address] [id number] [place] [address]- 2541 15 Sep, 2013 [facility] [place] [facility] [address] [id number] [place] [address]- 2545 08 Sep, 2013 [facility] [place] [facility] [address] [id number] [place] [address]- 2548 08 Sep, 2013 [facility] [place] [facility] [address] [id number] [place] [address]- 2540 08 Sep, 2013 [facility] [place] [facility] [address] [id number] [place] [address]- 2547 May, [facility] [place] [facility] [address] [id number] [place] [address]- 3909 Apr, [facility] [place] [facility] [address] [id number] [place] [address]- 3490 Apr, [facility] [place] [facility] [address] [id number] [place] [address]- 2372 Apr, [facility] [place] [facility] [address] [id number] [place] [address]- 9203 Apr, [facility] [place] [facility] [address] [id number] [place] [address]- 6391 Apr, [facility] [place] [facility] [address] [id number] [place] [address]- 4495 Apr, [facility] [place] [facility] [address] [id number] [place] [address]- 1782 Apr, [facility] [place] [facility] [address] [id number] [place] [address]- 4005 Apr, [facility] [place] [facility] [address] [id number] [place] [address]- 2526 Apr, [facility] [place] [facility] [address] [id number] [place] [address]- 7522 Apr, [facility] [place] [facility] [address] [id number] [place] [address]- 1771 Apr, [facility] [place] [facility] [address] [id number] [place] [address]- 5311 Apr, [facility] [place] [facility] [address] [id number] [place] [address]- 0531 Apr, [facility] [place] [facility] [address] [id number] [place] [address]- 7965 Mar, [facility] [place] [facility] [address] [id number] [place] [address]- 5256 Mar, [facility] [place] [facility] [address] [id number] [place] [address]- 1095 Mar, [facility] [place] [facility] [address] [id number] [place] [address]- 2949 Mar, [facility] [place] [facility] [address] [id number] [place] [address]- 9044 Jan, [facility] [place] [facility] [address] [id number] [place] [address]- 9932 Jan, [facility] [place] [facility] [address] [id number] [place] [address]- 8358 December, [facility] [place] [facility] [address] [id number] [place] [address]- 5174 December, [facility] [place] [facility] [address] [id number] [place] [address]- 0666 December, [facility] [place] [facility] [address] [id number] [place] [address]- 0241 December, [facility] [place] [facility] [address] [id number] [place] [address]- 0117 December, [facility] [place] [facility] [address] [id number] [place] [address]- 2492 December, [facility] [place] [facility] [address] [id number] [place] [address]- 6674 December, [facility] [place] [facility] [address] [id number] [place] [address]- 5325 December, [facility] [place] [facility] [address] [id number] [place] [address]- 1623 Dec, [facility] [place] [facility] [address] [id number] [place] [address]- 1061 Dec, [facility] [place] [facility] [address] [id number] [place] [address]- 0106 Dec, [facility] [place] [facility] [address] [id number] [place] [address]- 9187 Dec, [facility] [place] [facility] [address] [id number] [place] [address]- 6521 Oct, [facility] [place] [facility] [address] [id number] [place] [address]- 3591 Oct, [facility] [place] [facility] [address] [id number] [place] [address]- 6748 Oct, [facility] [place] [facility] [address] [id number] [place] [address]- 1078 Oct, [facility] [place] [facility] [address] [id number] [place] [address]- 9743 Oct, [facility] [place] [facility] [address] [id number] [place] [address]- 3685 Oct, [facility] [place] [facility] [address] [facility] [place] [id number] [place] [address]- 7021 Oct, [facility] [place] [facility] [address] [id number] [place] [address]- 5955 Oct, [facility] [place] [facility] [address] [id number] [place] [address]- 8355 Oct, [facility] [place] [facility] [address] [facility] [place] [id number] [place] [address]- 3884 Oct, [facility] [place] [facility] [address] [facility] [place] [id number] [place] [address]- 5050 Oct, [facility] [place] [facility] [address] [id number] [place] [address]- 3860 Oct, [facility] [place] [facility] [address] [id number] [place] [address]- 2811 Oct, [facility] [place] [facility] [address] [id number] [place] [address]- 7987 Oct, [facility] [place] [facility] [address] [facility] [place] [id number] [place] [address]- 7776 Oct, [facility] [place] [facility] [address] [facility] [id number] [place] [address]- 7161 Oct, 2013 [facility] [place] [facility] [address] [id number] [place] [address]- 4996 Oct, [facility] [place] [facility] [address] [id number] [place] [address]- 9116 Oct, 2013 [facility] [place] [facility] [address] [id number] [place] [address]- 5096 Oct, [facility] [place] [facility] [address] [id number] [place] [address]- 5860 Oct, [facility] [place] [facility] [address] [id number] [place] [address]- 9604 Oct, [facility] [place] [facility] [address] [id number] [place] [address]- 9505 Oct, [facility] [place] [facility] [address] [id number] [place] [address]- 1752 Sep, [facility] [place] [facility] [address] [id number] [place] [address]- 5168 Sep, [facility] [place] [facility] [address] [id number] [place] [address]- 6086 Sep, [facility] [place] [facility] [address] [facility] [id number] [place] [address]- 6880 Sep, [facility] [place] [facility] [address] [id number] [place] [address]- 1159 Aug, [facility] [place] [facility] [address] [id number] [place] [address]- 8453 Aug, [facility] [place] [facility] [address] [id number] [place] [address]- 5181 Aug, [facility] [place] [facility] [address] [id number] [place] [address]- 1850 Aug, [facility] [place] [facility] [address] [id number] [place] [address]- 0608 Aug, [facility] [place] [facility] [address] [id number] [place] [address]- 0176 Aug, [facility] [place] [facility] [address] [id number] [place] [address]- 9063 Aug, [facility] [place] [facility] [address] [id number] [place] [address]- 7843 Aug, [facility] [place] [facility] [address] [id number] [place] [address]- 8462 Aug, [facility] [place] [facility] [address] [id number] [place] [address]- 9033 Jul, [facility] [place] [facility] [address] [id number] [place] [address]- 9384 Jul, [facility] [place] [facility] [address] [id number] [place] [address]- 3625 Jul, [facility] [place] [facility] [address] [id number] [place] [address]- 0359 Jul, [facility] [place] [facility] [address] [id number] [place] [address]- 5033 Jul, [facility] [place] [facility] [address] [id number] [place] [address]- 3653 Jul, [facility] [place] [facility] [address] [id number] [place] [address]- 4881 Jul, [facility] [place] [facility] [address] [id number] [place] [address]- 6257 Jul, [facility] [place] [facility] [address] [id number] [place] [address]- 7503 Jun, [facility] [place] [facility] [address] [id number] [place] [address]- 5051 Jun, [facility] [place] [facility] [address] [id number] [place] [address]- 1558 Jun, [facility] [place] [facility] [address] [id number] [place] [address]- 6430 Jun, [facility] [place] [facility] [address] [id number] [place] [address]- 4330 Jun, [facility] [place] [facility] [address] [id number] [place] [address]- 7152 Jun, [facility] [place] [facility] [address] [id number] [place] [address]- 7776 Jun, [facility] [place] [facility] [address] [id number] [place] [address]- 2301 Jun, [facility] [place] [facility] [address] [id number] [place] [address]- 9730 30 May, 2013 [facility] [place] [facility] [address] [id number] [place] [address] 26 May, 2013 [facility] [place] [facility] [address] [id number] [place] [address] 23 May, 2013 [facility] [place] [facility] [address] [id number] [place] [address] 19 May, 2013 [facility] [place] [facility] [address] [id number] [place] [address] 12 May, 2013 [facility] [place] [facility] [address] [id number] [place] [address] May, [facility] [place] [facility] [address] [id number], [place] [address] Apr, [facility] [place] [facility] [address] [id number], [place] [address] Apr, [facility] [place] [facility] [address] [id number] [place] [address] Apr, [facility] [place] [facility] [address] [id number] [place] [address] Apr, [facility] [place] [facility] [address] [id number] [place] [address] Apr, [facility] [place] [facility] [address] [id number] [place] [address] Apr, [facility] [address] [id number] [place] [address] Apr, [facility] [place] [facility] [address] [id number] [place] [address] Mar, [facility] [address] [id number] [place] [address] Mar, [facility] [place] [facility] [address] [id number] [place] [address] Mar, [facility] [address] [id number] [place] [address] Mar, [facility] [place] [facility] [address] [id number] [place] [address] Mar, [facility] [place] [facility] [address] [id number] [place] [address] Mar, [facility] [address] [id number] [place] [address] Mar, [facility] [place] [facility] [address] [id number] [place] [address] Jan, [facility] [address] [id number] [place] [address] Jan, [facility] [place] [facility] [address] [id number] [place] [address] Jan, [facility] [place] [facility] [address] [id number] [place] [address] Jan, [facility] [place] [facility] [address] [id number] [place] [address] Jan, [facility] [place] [facility] [address] [id number] [place] [address] 7964 Jan, [facility] [place] [facility] [address] [id number] [place] [address] Jan, [facility] [address] [id number] [place] [address] December, [facility] [address] [id number] [place] [address] December, [facility] [address] [id number] [place] [address] December, [facility] [address] [id number] [place] [address] December, [facility] [address] [id number] [place] [address] Dec, [facility] [address] [id number] [place] [address] Dec, [facility] [address] [id number] [place] [address] 7[address] Dec, [facility] [address] [id number] [place] [address] Oct, [facility] [address] [id number] [place] [address] Oct, [facility] [address] [id number] [place] [address] Oct, [facility] [place] [facility] [address] [id number] [place] [address] 28[address] Oct, [facility] [place] [facility] [address] [id number], [place] [address] Oct, [facility] [place] [facility] [address] [id number] [place] [address] Oct, [facility] [place] [facility] [address] [id number] [place] [address] Oct, [facility] [place] [facility] [address] [id number], [place] [address] Oct, [facility] [place] [facility] [address] [id number], [place] [address] Oct, [facility] [address] [id number] [place] [address]- [address] 08 Oct, 2012 [facility] [place] [facility] [address] [id number] [place] [address] Oct, [facility] [address] [id number] [place] [address]- [address] Sep, [facility] [place] [facility] [address] [id number] [place] [address] Sep, [facility] [address] [id number] [place] [address] Sep, [facility] [address] [id number] [place] [address] Aug, [facility] [address] [id number] [place] [address]- [address] Aug, [facility] [address] [id number] [place] [address]- [address] Aug, [facility] [address] [id number] [place] [address] Aug, [facility] [address] [facility] [place] [facility] [id number] [place] [address] Jul, [facility] [address] [id number] [place] [address]- [address]104 Jul, [facility] [place] [facility] [address] [id number] [place] [address]- 4099 Jul, [facility] [place] [facility] [address] [id number] [place] [address] 77[address] Jul, [facility] [place] [facility] [address] [id number] [place] [address] Jul, [facility] [place] [facility] [address] [id number], [place] [address] Jul, [facility] [place] [facility] [address] [id number] [place] [address]- [address] Jul, [facility] [place] [facility] [address] [id number] [place] [address]- [address] Jul, [facility] [place] [facility] [address] [id number] [place] [address]- [address] Jun, [facility] [place] [facility] [address] [id number] [place] [address] 8315 Jun, [facility] [place] [facility] [address] [id number] [place] [address]- 1581 Jun, [facility] [place] [facility] [address] [id number] [place] [address]- 9234 Jun, [facility] [place] [facility] [address] [id number] [place] [address]703 Jun, [facility] [place] [facility] [address] [id number] [place] [address]- [address] May, [facility] [place] [facility] [address] [id number] [place] [address]- [address]842 20 May, 2012 [facility] [place] [facility] [address] [id number] [place] [address]- [address] 18 May, 2012 [facility] [place] [facility] [address] [id number] [place] [address]- [address] May, [facility] [place] [facility] [address] [id number] [place] [address] May, [facility] [place] [facility] [address] [id number] [place] [address] Apr, [facility] [place] [facility] [address] [id number] [place] [address] Apr, [facility] [place] [facility] [address] [id number] [place] [address] 16 Apr, 2012 [facility] [place] [facility] [address] [id number] [place] [address] Apr, [facility] [place] [facility] [address] [id number] [place] [address] Apr, [facility] [place] [facility] [address] [id number] [place] [address] Apr, [facility] [place] [facility] [address] [id number] [place] [address] Apr, [facility] [place] [facility] [address] [id number] [place] [address] Mar, [facility] [place] [facility] [address] [id number] [place] [address] Mar, [facility] [place] [facility] [address] [id number] [place] [address] Mar, [facility] [place] [facility] [address] [id number] [place] [address] Mar, [facility] [place] [facility] [address] [id number] [place] [address] Jan, [facility] [place] [facility] [address] [id number] [place] [address] Jan, [facility] [place] [facility] [address] [id number] [place] [address] Jan, [facility] [place] [facility] [address] [id number] [place] [address] Jan, [facility] [place] [facility] [address] [id number] [place] [address] Jan, [facility] [place] [facility] [address] [id number] [place] [address] Jan, [facility] [place] [facility] [address] [id number] [place] [address] December, [facility] [place] [facility] [address] [id number] [place] [address] December, [facility] [place] [facility] [address] [id number] [place] [address] December, [facility] [address] [id number] [place] [address] December, [facility] [address] [id number] [place] [address] Dec, [facility] [address] [id number] [place] [address] Dec, [facility] [address] [id number] [place] [address] 30 Nov, 2011 [facility] [address] [id number] [place] [address] 29 Nov, 2011 [facility] [address] [id number] [place] [address] Oct, [facility] [address] [id number] [place] [address] 16 Nov, 2011 [facility] [address] [id number] [place] [address] Oct, [facility] [address] [id number] [place] [address] Oct, [facility] [address] [id number] [place] [address] Oct, [facility] [address] [id number] [place] [address] Oct, [facility] [address] [id number] [place] [address] Oct, [facility] [address] [id number] [place] [address] Oct, [facility] [address] [id number] [place] [address] Oct, [facility] [address] [id number] [place] [address] Sep, [facility] [address] [id number] [place] [address] Sep, [facility] [place] [facility] [address] [id number] [place] [address] Sep, [facility] [place] [facility] [address] [id number] [place] [address] Sep, [facility] [place] [facility] [address] [id number] [place] [address] Sep, [facility] [place] [facility] [address] [id number] [place] [address] 2018 Sep, [facility] [place] [facility] [address] [id number] [place] [address] Sep, [facility] [place] [facility] [address] [id number] [place] [address] Sep, [facility] [place] [facility] [address] [id number] [place] [address] Aug, [facility] [place] [facility] [address] [id number] [place] [address] 78[address] Aug, [facility] [place] [facility] [address] [id number] [place] [address] Aug, [facility] [place] [facility] [address] [id number] [place] [address] Jul, [facility] [place] [facility] [address] [id number] [address] Jul, [facility] [place] [facility] [address] [id number] [place] [address] 18 Jul, 2011 [facility] [place] [facility] [address] [id number] [place] [address]32 17 Jul, 2011 [facility] [place] [facility] [address] [id number] [place] [address] 08 Jul, 2011 [facility] [place] [facility] [address] [id number] [place] [address]- [address]261 02 Jul, 2011 [facility] [address] [id number] [place] [address] 31 Jun, 2011 [facility] [place] [facility] [address] [id number] [place] [address]474 20 Jun, 2011 [facility] [place] [facility] [address] [id number] [place] [address] 20 Mar, 2011 [facility] [place] [facility] [address] [id number] [place] [address]9 14 Dec, 2010 [facility] [place] [facility] [address] [id number] [place] [address] 14 Oct, 2010 [facility] [place] [facility] [address] [id number] [place] [address]27 06 Aug, 2010 [facility] [place] [facility] [address] [id number] [place] [address] 30 Jul, 2010 [facility] [place] [facility] [address] [id number] [place] [address] Jul, [facility] [place] [facility] [address] [id number] [place] [address] Jul, [facility] [place] [facility] [address] [facility] [place] [id number] [place] [address] Jul, [facility] [place] [facility] [address] [id number] [place] [address] 08 Jul, 2010 [facility] [place] [facility] [address] [id number] [place] [address]- [address]876 22 Aug, 2009 [facility] [place] [facility] [address] [id number] [place] [address]- 120[address] 15 Aug, 2009 [facility] [place] [facility] [address] [id number] [place] [address]- 0295 14 Aug, 2009 [facility] [place] [facility] [address] [facility] [place] [facility] [id number] [place] [address]20 07 Aug, 2009 [facility] [place] [facility] [address] [facility] [id number] [address] Jul, [facility] [address] [id number] [address] Jul, [facility] [address] [id number] [address] Jul, [facility] [address] [facility] [id number] [address] Jul, [facility] [address] [facility] [place] [id number], [place] [address] Jun, [facility] [address] [id number] [address] Jun, IMMUNIZATIONS No Known Immunizations SOCIAL HISTORY Never Assessed REASON FOR VISIT Nephrology-Dr. Degroot PLAN OF CARE VITAL SIGNS MEDICATIONS Unknown [...]
--- OUTSIDE RECORDS SUMMARY | 2018-03-17 11:18 | XMS REPORT ---
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 Active 96998945 Problem Attention-deficit hyperactivity disorder, predominantly inattentive type F90.0 Active 00041259 Problem Obstructive sleep apnea G47.33 Active 99611881 Problem Primary insomnia F51.01 Active 9443845 Problem Neuralgia M79.2 Active 05295550 Problem Cannabis use disorder, mild, abuse F12.10 Active 09805547 Problem Folic acid deficiency E53.8 Active 331864352 Problem Restless legs G25.81 Active 95579276 Problem Major depressive disorder, recurrent, mild F33.0 Active 39501687 Problem Generalized anxiety disorder F41.1 Active 31632073 Problem Major depressive disorder, recurrent episode, moderate F33.1 Active 095184088 Problem Hypertension I10 Active 09457615 Problem Hyperlipidemia E78.5 Active 58780679 Problem Primary osteoarthritis of both knees M17.0 Active 588977092 Problem Chronic hepatitis K73.9 Active 01359122 Problem Low back pain M54.5 Active 796724937 Problem Chronic viral hepatitis B without delta-agent B18.1 Active 549996776 Problem Insomnia G47.00 Active 444303479 Problem Hypothyroid E03.9 Active 87615895 Problem Depression, major, recurrent, mild F33.0 Active 839467772 Problem Obesity due to excess calories, unspecified obesity severity E66.09 Active 893846037 ALLERGIES Substance Reaction Event Type Date Status Trazodone HCl "weird dreams" Drug Allergy Jun, Active ENCOUNTERS Encounter Location Date Diagnosis [facility] [id number] [place] [address] Dec, Bone pain M89.8X9 [facility] [id number] [place] [address] 35231- 5741 Dec, [facility] [id number] [place] [address] 57214- 3651 Oct, [facility] [id number] [place] [address] 33161- 2626 Oct, Syncope, unspecified syncope type R55 ; Primary insomnia F51.01 ; Dry mouth R68.2 and Cannabis use disorder, mild, abuse F12.10 [facility] [address] [address]- [address] Oct, [facility] [address] 31366- 3358 Sep, [facility] [id number] [place] [address] 86102- 6664 Sep, [facility] [address] 0[address]40- 4610 Sep, [facility] [id number] [place] [address] [id number] Sep, Dental examination Z01.20 [facility] [address] 12626- 9823 Sep, Dental examination Z01.20 [facility] [id number] [place] [address] 77995- 0859 Sep, Sinus congestion R09.81 ; Mouth sores K13.79 ; Low back pain M54.5 and Mouth swelling R22.0 [facility] [id number] [place] [address] 18661- 6612 Aug, Low back pain M54.5 [facility] [address] 87034- 1191 Aug, Low back pain M54.5 [facility] [id number] [place] [address] 93141- 8810 Jul, [facility] [address] 66191- 2543 Jul, 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 ; Encounter for immunization Z23 ; Hypothyroid E03.9 ; Decreased renal function N28.9 and Muscle cramps R25.2 [facility] [address] 44176- 7443 Jul, [facility] [address] 61976- 4155 Jul, [facility] [address] 65766- 5923 Jul, [place] [address] 00978- 3771 Jul, Major depressive disorder, recurrent, mild F33.0 [place] [address] 73622- 5626 Jul, Acquired cyst of kidney N28.1 ; Acidosis E87.2 and Hyperkalemia E87.5 [address] [address] 79201- 5295 Jul, Major depressive disorder, recurrent, mild F33.0 ; Attention -deficit hyperactivity disorder, predominantly inattentive type F90.0 and Generalized anxiety disorder F41.1 [place] [address] 72407- 4664 Jul, Low back pain M54.5 [facility] [address] 41101- 7969 Jun, Cough R05 ; Low back pain M54.5 and Pre-syncope R55 [facility] [address] 40304- 8232 Jun, Low back pain M54.5 [facility] [address] [id number] Jun, Dental caries K02.9 [facility] [address] 67336- 5485 Jun, [facility] [id number] [place] [address] 68656- 5510 Jun, Major depressive disorder, recurrent, mild F33.0 ; Attention -deficit hyperactivity disorder, predominantly inattentive type F90.0 and Generalized anxiety disorder F41.1 [facility] [id number] [place] [address] 68615- 1820 May, Vertigo R42 ; Confusion R41.0 ; Weakness R53.1 and Vision changes H53.9 [facility] [id number] [place] [address] 59933- 4970 May, [place] [id number] [place] [address] 23485- 4046 May, [facility] [id number] [place] [address] 80607- 9419 May, Low back pain M54.5 [place] [id number] [place] [address] 03926- 6963 05 May, 2017 Major depressive disorder, recurrent, mild F33.0 ; Attention -deficit hyperactivity disorder, predominantly inattentive type F90.0 and Generalized anxiety disorder F41.1 [place] [id number] [place] [address] 28485- 1655 May, [facility] [id number] [place] [address] 08589- 6323 May, Acute worsening of stage 3 chronic kidney disease N18.3 [facility] [id number] [place] [address] 75922- 0586 Apr, [place] [address] 07820- 8635 Apr, Acute allergic rhinitis due to pollen, unspecified seasonality J30.1 ; Restless legs G25.81 and Low back pain M54.5 [facility] [id number] [place] [address] 30007- 9174 Apr, Primary osteoarthritis of both knees M17.0 [facility] [id number] [place] [address] 64978- 6854 Apr, Generalized anxiety disorder F41.1 [facility] [id number] [place] [address] 09086- 3783 Apr, Major depressive disorder, recurrent, mild F33.0 ; Attention -deficit hyperactivity disorder, predominantly inattentive type F90.0 and Generalized anxiety disorder F41.1 [facility] [id number] [place] [address] 12578- 3445 Apr, [facility] [id number] [place] [address] 93382- 2670 Mar, Major depressive disorder, recurrent episode, moderate F33.1 ; Generalized anxiety disorder F41.1 and ADHD, predominantly inattentive type F90.0 [facility] [id number] [place] [address] 56800 -3486 Mar, Abscess L02.91 [facility] [id number] [place] [address] 40642- 0512 Mar, 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 [facility] [id number] [place] [address] 40315- 2990 Mar, Decreased renal function N28.9 [facility] [id number] [place] [address] [id number] Mar, Dental examination Z01.20 [facility] [id number] [place] [address] 49461- 7914 Mar, 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 [facility] [id number] [place] [address] 06504- 5700 Mar, 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 [facility] [address] [id number] Mar, Dental examination Z01.20 and Dental caries K02.9 [facility] [id number] [place] [address] 92973- 7528 Mar, Chronic viral hepatitis B without delta-agent B18.1 ; Folic acid deficiency E53.8 ; 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 and Decreased renal function N28.9 [place] [id number] [place] [address] 79480- 7473 Mar, Major depressive disorder, recurrent, mild F33.0 [place] [id number] [place] [address] 78233- 4531 Mar, [place] [address] 62912- 9968 Mar, Chronic hepatitis K73.9 ; 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 ; Localized edema R60.0 ; Illicit drug use F19.90 ; Vision changes H53.9 and Obesity due to excess calories, unspecified obesity severity E66.09 [place] [id number] [place] [address] 99921- 5478 Jan, Major depressive disorder, recurrent, mild F33.0 [place] [id number] [place] [address] 07233- 6580 Jan, Chronic viral hepatitis B without delta-agent B18.1 [place] [id number] [place] [address] 31130- 9806 Jan, [place] [id number] [place] [address] 18553- 7667 Jan, Weight gain R63.5 ; Hypothyroid E03.9 ; 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 ; Decreased renal function N28.9 and Chronic viral hepatitis B without delta-agent B18.1 [place] [id number] [place] [address] 96136- 5355 December, Major depressive disorder, recurrent, mild F33.0 and Generalized anxiety disorder F41.1 [place] [id number] [place] [address] 48703- 6765 December, Obesity due to excess calories, unspecified obesity severity E66.09 and Folic acid deficiency E53.8 [address] [address] [place] [address]- 8868 December, Folic acid deficiency E53.8 [facility] [id number] [place] [address] 20833- 0737 December, Folic acid deficiency E53.8 [facility] [id number] [place] [address] 55463- 2854 December, Obesity due to excess calories, unspecified obesity severity E66.09 [facility] [id number] [place] [address] 69200- 9510 December, [facility] [id number] [place] [address] 94138- 5941 December, Folic acid deficiency E53.8 [facility] [id number] [place] [address] [id number] December, Encounter for other administrative examinations Z02.89 [facility] [id number] [place] [address] 96060- 7073 Dec, [facility] [address] [id number] Dec, Dental caries K02.9 [place] [id number] [place] [address] 88059- 3034 Oct, Bone pain M89.8X9 [place] [id number] [place] [address] 07199- 7885 Oct, Hypothyroid E03.9 [facility] [id number] [place] [address] 04887- 6081 24 Oct, 2016 Hypothyroid E03.9 [facility] [address] 25418- 1000 13 Oct, 2016 Breast cancer screening Z12.39 [facility] [id number] [place] [address] [id number] 08 Oct, 2016 Dental examination Z01.20 [facility] [id number] [place] [address] 49829- 8378 Oct, [place] [id number] [place] [address] 82568- 8765 Oct, Major depressive disorder, recurrent, mild F33.0 and Generalized anxiety disorder F41.1 [place] [id number] [place] [address] 21226- 5214 Oct, [place] [id number] [place] [address] 78662- 8478 Oct, Hypothyroid E03.9 [place] [id number] [place] [address] 57011- 4185 Sep, Hypothyroid E03.9 ; Chronic viral hepatitis B without delta- agent B18.1 and Folic acid deficiency E53.8 [place] [id number] [place] [address] 63968- 8374 Sep, Hypothyroidism, unspecified type E03.9 ; Elevated parathyroid hormone E34.9 and Chronic viral hepatitis B without delta-agent B18.1 [place] [id number] [place] [address] 07337- 3443 Sep, [place] [id number] [place] [address] 53929- 0878 Sep, Elevated parathyroid hormone E34.9 [place] [id number] [place] [address] 78956- 2997 Sep, [place] [id number] [place] [address] 45827- 7128 Sep, Chronic hepatitis K73.9 ; Bone pain M89.8X9 and Abnormal complete blood count R79.89 [place] [id number] [place] [address] 16403- 8520 Aug, Major depressive disorder, recurrent, mild F33.0 [place] [address], [place] [address]- 9553 Aug, Bone pain M89.8X9 [facility] [id number] [place] [address] 44563- 5733 Aug, [place] [address] 76865- 8381 Jul, Chronic viral hepatitis B without delta-agent B18.1 [place] [id number] [place] [address] 22607- 3354 Jul, Hypothyroidism, unspecified type E03.9 [facility] [id number] [place] [address] 08979- 6100 Jul, [place] [address] 29376- 5222 Jul, Chronic hepatitis K73.9 and Hypothyroid E03.9 [place] [id number] [place] [address] 21353- 6972 Jul, Low back pain M54.5 [place] [address] 92438- 2061 Jun, Depression, major, recurrent, mild F33.0 and ADD (attention deficit disorder) F90.0 [place] [id number] [place] [address] 54099- 5052 Jun, [place] [id number] [place] [address] 09556- 9402 Jun, Low back pain M54.5 [place] [id number] [place] [address] 91978- 7395 Jun, Encounter for immunization Z23 ; Major depressive disorder, recurrent, mild F33.0 and Attention-deficit hyperactivity disorder, predominantly inattentive type F90.0 [place] [id number] [place] [address] 03093- 0321 Jun, [place] [id number] [place] [address] 40920- 4964 Jun, Low back pain M54.5 [place] [id number] [place] [address] 76764- 2161 29 May, 2015 [facility] [address] 86294- 0849 May, 2015 [facility] [id number] [place] [address] 49719- 7791 29 May, 2015 Essential (primary) hypertension I10 [facility] [address] 66588- 6562 19 May, 2016 Low back pain M54.5 [facility] [address] 26398- 9084 12 May, 2016 Low back pain M54.5 ; Chronic hepatitis K73.9 and Hypothyroid E03.9 [facility] [address] 92652- 3232 09 May, 2016 Hypothyroidism, unspecified type E03.9 [facility] [address] 34867- 1205 08 May, 2016 Low back pain M54.5 [facility] [id number] [place] [address] 85392- 0903 07 May, 2016 [facility] [id number] [place] [address] 43353- 1026 06 May, 2016 [facility] [id number] [place] [address] 65403- 6001 May, 2016 Major depressive disorder, recurrent, moderate F33.1 ; Generalized anxiety disorder F41.1 ; Insomnia G47.00 and ADD (attention deficit disorder) F90.0 [facility] [id number] [place] [address] 97716- 1233 Apr, Low back pain M54.5 [facility] [id number] [place] [address] 88635- 9788 Apr, [facility] [address] 59351- 9882 Apr, Low back pain M54.5 [facility] [id number] [place] [address] 03470- 2653 Apr, Low back pain M54.5 ; Tooth pain K08.8 and Seasonal allergic rhinitis due to pollen J30.1 [place] [id number] [place] [address] 13203- 4509 Apr, Low back pain M54.5 [place] [id number] [place] [address] 12530- 8093 Apr, [facility] Pap smear of vagina R87.622 [place] [address] 41480- 6425 Apr, Low back pain M54.5 [place] [id number] [place] [address] 52773- 5074 Mar, [place] [address] 75297- 4819 Mar, Low back pain M54.5 [place] [id number] [place] [address] 76129- 3481 Mar, Encounter for Papanicolaou smear for cervical cancer screening Z12.4 ; Encounter for routine gynecological examination Z01.419 and Breast cancer screening Z12.39 [place] [id number] [place] [address] 88383- 5795 Mar, Hypothyroidism, unspecified type E03.9 [place] [id number] [place] [address] 46072- 7593 14 Mar, 2016 Low back pain M54.5 ; Other chronic pain G89.29 ; Hypothyroid E03.9 and Hypothyroidism, unspecified type E03.9 [place] [id number] [place] [address] 21241- 4073 Mar, Major depressive disorder, recurrent, moderate F33.1 and Attention-deficit hyperactivity disorder, predominantly inattentive type F90.0 [facility] [id number] [address] -8814 Mar, Bronchitis J40 [facility] [id number] [place] [address] 27182- 4470 Jan, [facility] [id number] [place] [address] 88346- 7345 Jan, [facility] [id number] [place] [address] 30735- 8381 Jan, Insomnia G47.00 [facility] [id number] [place] [address] 98472- 8567 December, [facility] [id number] [place] [address] 77956- 2648 December, Major depressive disorder in partial remission F32.4 and Attention-deficit hyperactivity disorder, unspecified type F90.9 [place] [id number] [place] [address] 26842- 1653 December, [facility] [id number] [place] [address] 57492- 0915 December, [facility] [id number] [place] [address] 18410- 3235 Dec, [facility] [address] [place] [address] 26163- 0969 Dec, Major depressive disorder, recurrent episode, moderate 296.32 and Attention deficit disorder of childhood without mention of hyperactivity 314.00 [facility] [address] [place] [address] 45868- 5229 Dec, Major depressive disorder, recurrent episode, mild 296.31 ; ADD (attention deficit disorder) F90.0 and Hyperlipidemia E78.5 [facility] [address] [place] [address] 39602- 0395 Dec, Insomnia G47.00 [facility] [address] [place] [address] 89801- 5106 Dec, Attention-deficit hyperactivity disorder, predominantly inattentive type F90.0 [facility] [address] [address]- 9158 Oct, Restless legs syndrome G25.81 [facility] [id number] [place] [address] 91492- 4095 Oct, Hypothyroidism, unspecified type E03.9 [facility] [id number] [place] [address] 92171- 5094 Oct, [facility] [id number] [place] [address] 59547- 8836 16 Nov, 2015 [facility] [id number] [place] [address] 32919- 2241 15 Nov, 2015 Hypothyroid E03.9 and Chronic hepatitis K73.9 [facility] [id number] [place] [address] 77841- 5035 Oct, [facility] [id number] [place] [address] 44412- 0669 08 Nov, 2015 Restless legs syndrome G25.81 ; Chronic hepatitis K73.9 ; Hypertension I10 ; Hypothyroid E03.9 and Breast cancer screening Z12.39 [facility] [id number] [place] [address] 07119- 6040 Oct, [facility] [id number] [place] [address] 21381- 2631 Oct, [facility] [id number] [place] [address] 96661- 5856 Oct, [facility] [id number] [address]- 7263 Oct, [facility] [id number] [place] [address] 53207- 9312 Oct, [facility] [address], [place] [address]- 9417 Oct, [facility] [address] [place] [address]- 5461 Oct, [facility] [id number] [place] [address] 76521- 3384 Sep, [facility] [id number] [place] [address] 30496- 0288 Sep, Attention-deficit hyperactivity disorder, predominantly inattentive type F90.0 and Major depressive disorder in partial remission F32.4 [facility] [id number] [place] [address] 99683- 3756 Sep, [facility] [id number] [place] [address] [phone] Aug, [facility] [id number] [place] [address] [id number]- [phone] Aug, [facility] [id number] [place] [address] [id number] [phone] Aug, Major depressive disorder, recurrent, mild F33.0 ; Attention -deficit hyperactivity disorder, unspecified type F90.9 and Generalized anxiety disorder F41.1 [facility] [id number] [place] [address] [id number] 08 Aug, 2015 Chronic hepatitis K73.9 ; Primary osteoarthritis of both knees M17.0 and Neuralgia M79.2 [facility] [id number] [address] Jul, [facility] [id number] [place] [address] [phone]- [phone] Jul, [facility] [id number] [address] Jul, [facility] [address] [id number] [address] Jul, [facility] [address], [place] [address] Jun, [facility] [id number] [place] [address]- 5020 Jun, Bronchitis J40 and Encounter for immunization Z23 [facility] [address] [address]- [address] 30 May, 2015 [facility] [address] [address]- [address] May, [facility] [address] [address]- [address] May, [facility] [address] [address]- 9637 May, Hypokalemia 276.8 [facility] [address] [address]- 8414 08 May, 2015 Major depressive disorder, recurrent episode, mild 296.31 ; Attention deficit disorder of childhood without mention of hyperactivity 314.00 and Generalized anxiety disorder 300.02 [facility] [address] [address]- [address] May, Hypertension 401.9 and Hypokalemia 276.8 [facility] [address] [address]- 9780 May, [facility] [id number] [place] [address]- 5021 Apr, [facility] [id number] [place] [address] 31248- 9257 Apr, [facility] [id number] [place] [address] 59905- 0137 Apr, [facility] [id number] [place] [address] 12114- 0015 Apr, [facility] [id number] [place] [address] 853[address]- 5696 Mar, [facility] [id number] [place] [address] 9[address]- 1974 Mar, [facility] [address], [place] [address] Mar, [facility] [address], [place] [address] Mar, [facility] [address], [place] [address] 10[address] Mar, Arthritis of both knees 716.96 ; Hepatitis B 070.30 ; Hypertension 401.9 ; Carpal tunnel syndrome 354.0 and Cubital tunnel syndrome 354.2 [facility] [address], [place] [address] 79[address] Mar, [facility] [id number] [place] [address] 52760- 6287 Mar, [facility] [id number] [place] [address] 55398- 0448 Mar, 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, chronic, without mention of hepatitis delta 070.32 ; Chronic hepatitis C without mention of hepatic coma 070.54 and Major depressive disorder, recurrent episode, moderate 296.32 [facility] [address], [place] [address] 7[address] Jan, [facility] [id number] [place] [address]44- 2268 Jan, Major depressive disorder, recurrent episode, mild 296.31 and Attention deficit disorder of childhood without mention of hyperactivity 314.00 [facility] [address], [place] [address]- 9136 Jan, [facility] [address], [place] [address]- 4448 Jan, [facility] [id number] [place] [address] 27025- 8745 December, Attention deficit disorder of childhood without mention of hyperactivity 314.00 ; Major depressive disorder, recurrent episode, mild 296.31 and Generalized anxiety disorder 300.02 [facility] [id number] [place] [address] [place] [address]- [address] 08 Dec, 2014 [facility] [place] [facility] [address] [id number] [place] [address]- 2332 14 Dec, 2014 [facility] [place] [facility] [address] [id number] [place] [address]- 9503 13 Dec, 2014 [facility] [place] [facility] [address] [id number] [place] [address]- 3956 19 Oct, 2014 [facility] [place] [facility] [address] [id number] [place] [address]- 7942 19 Oct, 2014 [facility] [place] [facility] [address] [id number] [place] [address]- 9991 18 Oct, 2014 [facility] [place] [facility] [address] [id number] [place] [address]- 4051 18 Oct, 2014 [facility] [place] [facility] [address] [id number] [place] [address]- 7234 18 Oct, 2014 [facility] [place] [facility] [address] [id number] [place] [address]- 9431 18 Oct, 2014 [facility] [place] [facility] [address] [id number] [place] [address]- 9311 16 Oct, 2014 [facility] [place] [facility] [address] [id number] [place] [address]- 2612 13 Oct, 2014 [facility] [place] [facility] [address] [id number] [place] [address]- 5300 13 Oct, 2014 [facility] [place] [facility] [address] [id number] [place] [address]- 6837 12 Oct, 2014 [facility] [place] [facility] [address] [id number] [place] [address]- 0542 12 Oct, 2014 [facility] [place] [facility] [address] [id number] [place] [address]- 8844 10 Oct, 2014 [facility] [place] [facility] [address] [id number] [place] [address]- 1121 10 Oct, 2014 [facility] [place] [facility] [address] [id number] [place] [address]- 5320 05 Oct, 2014 [facility] [place] [facility] [address] [id number] [place] [address]- 4789 Oct, 2014 [facility] [place] [facility] [address] [id number] [place] [address] 2544 Oct, 2014 [facility] [place] [facility] [address] [id number] [place] [address]- 3252 Oct, 2014 [facility] [place] [facility] [address] [id number] [place] [address]- 6444 25 Oct, 2014 [facility] [place] [facility] [address] [id number] [place] [address]- 2577 Oct, 2014 [facility] [place] [facility] [address] [id number] [place] [address]- 7331 18 Oct, 2014 [facility] [place] [facility] [address] [id number] [place] [address]- 9594 17 Oct, 2014 [facility] [place] [facility] [address] [id number] [place] [address]- 1077 17 Oct, 2014 [facility] [place] [facility] [address] [id number] [place] [address]- 3559 Oct, 2014 [facility] [place] [facility] [address] [id number] [place] [address]- 7357 Oct, 2014 [facility] [place] [facility] [address] [id number] [place] [address]- 2545 Oct, 2014 [facility] [place] [facility] [address] [id number] [place] [address]- 1545 11 Oct, 2014 [facility] [place] [facility] [address] [id number] [place] [address]- 5705 10 Oct, 2014 [facility] [place] [facility] [address] [id number] [place] [address]- 3553 10 Oct, 2014 [facility] [place] [facility] [address] [id number] [place] [address]- 0567 Sep, [facility] [address] [id number] [place] [address]- 7221 Sep, [facility] [address] [id number] [place] [address]- 0083 Sep, [facility] [address] [id number] [place] [address]- 7053 Sep, [facility] [address] [id number] [place] [address]- 0450 Sep, [facility] [address] [id number] [place] [address]- 0963 Sep, [facility] [address] [id number] [place] [address]- 1194 Sep, [facility] [address] [id number] [place] [address]- 5449 Sep, [facility] [address] [id number] [place] [address]- 1695 Sep, [facility] [address] [id number] [place] [address]- 8912 Sep, [facility] [address] [id number] [place] [address]- 9232 Sep, [facility] [address] [id number] [place] [address]- 1582 Sep, [facility] [place] [facility] [address] [id number] [place] [address]- 8640 Sep, [facility] [place] [facility] [address] [id number] [place] [address]- 2226 Sep, [facility] [place] [facility] [address] [id number] [place] [address]- 0709 Sep, [facility] [place] [facility] [address] [id number] [place] [address]- 4170 Sep, [facility] [place] [facility] [address] [id number] [place] 0710 Aug, [facility] [place] [facility] [address] [id number] [place] [address]- 3936 Aug, [facility] [place] [facility] [address] [id number] [place] 4757 Aug, [facility] [place] [facility] [address] [id number] [place] [address]- 0666 Aug, [facility] [place] [facility] [address] [id number] [place] 3107 Aug, [facility] [place] [facility] [address] [id number] [place] [address]- 2501 Aug, [facility] [place] [facility] [address] [id number] [place] [address]- 3616 Aug, [facility] [place] [facility] [address] [id number] [place] [address]- 8640 Aug, [facility] [place] [facility] [address] [id number] [place] [address]- 4834 19 Aug, 2014 [facility] [place] [facility] [address] [id number] [place] [address]- 8094 18 Aug, 2014 [facility] [place] [facility] [address] [id number] [place] [address]- 3479 18 Aug, 2014 [facility] [place] [facility] [address] [id number] [place] [address]- 5030 16 Aug, 2014 [facility] [place] [facility] [address] [id number] [place] [address]- 2996 16 Aug, 2014 [facility] [place] [facility] [address] [id number] [place]752 15 Aug, 2014 [facility] [place] [facility] [address] [id number] [place] 2418 15 Aug, 2014 [facility] [place] [facility] [address] [id number] [place] [address]- 8103 Aug, [facility] [place] [facility] [address] [id number] [place] [address]- 2631 Aug, [facility] [place] [facility] [address] [id number] [place] [address]- 4344 Aug, [facility] [place] [facility] [address] [id number] [place] [address]- 3828 Aug, [facility] [place] [facility] [address] [id number] [place] [address]- 0739 Aug, [facility] [place] [facility] [address] [id number] [place] [address]- 8224 Aug, [facility] [place] [facility] [address] [id number] [place] [address]- 6334 Aug, [facility] [place] [facility] [address] [id number] [place] [address]- 9540 Aug, [facility] [place] [facility] [address] [id number] [place] [address]- 3200 Aug, [facility] [place] [facility] [address] [id number] [place] [address]- 5387 Aug, [facility] [place] [facility] [address] [id number] [place] [address]- 7966 Jul, [facility] [place] [facility] [address] [id number] [place] [address]- 0357 Jul, [facility] [place] [facility] [address] [id number] [place] [address]- 4840 Jul, [facility] [place] [facility] [address] [id number] [place] [address]- 6266 Jul, [facility] [place] [facility] [address] [id number] [place] [address]- 8569 Jul, [facility] [place] [facility] [address] [id number] [place] [address]- 9489 Jul, [facility] [place] [facility] [address] [id number] [place] [address]- 3800 Jun, 2013 [facility] [place] [facility] [address] [id number] [place] [address]- 9248 Jun, [facility] [place] [facility] [address] [id number] [place] [address]- 8479 Jun, [facility] [place] [facility] [address] [id number] [place] [address]- 0235 Jun, 2013 [facility] [place] [facility] [address] [id number] [place] [address]- 8751 Jun, [facility] [place] [facility] [address] [id number] [place] [address]- 8555 Jun, [facility] [place] [facility] [address] [id number] [place] [address]- 6425 Jun, [facility] [place] [facility] [address] [id number] [place] [address]- 6297 Jun, [facility] [place] [facility] [address] [id number] [place] [address]- 7541 16 Sep, 2013 [facility] [place] [facility] [address] [id number] [place] [address]- 1792 16 May, 2013 [facility] [place] [facility] [address] [id number] [place] [address]- 6658 15 Sep, 2013 [facility] [place] [facility] [address] [id number] [place] [address]- 8852 15 May, 2013 [facility] [place] [facility] [address] [id number] [place] [address]- 9388 08 Sep, 2013 [facility] [place] [facility] [address] [id number] [place] [address]- 2385 08 Sep, 2013 [facility] [place] [facility] [address] [id number] [place] [address]- 3421 08 Sep, 2013 [facility] [place] [facility] [address] [id number] [place] [address]- 6884 May, [facility] [place] [facility] [address] [id number] [place] [address]- 1669 Apr, [facility] [place] [facility] [address] [id number] [place] [address]- 6309 Apr, [facility] [place] [facility] [address] [id number] [place] [address]- 8243 Apr, [facility] [place] [facility] [address] [id number] [place] [address]- 8658 Apr, [facility] [place] [facility] [address] [id number] [place] [address]- 5112 Apr, [facility] [place] [facility] [address] [id number] [place] [address]- 6266 Apr, [facility] [place] [facility] [address] [id number] [place] [address]- 9458 Apr, [facility] [place] [facility] [address] [id number] [place] [address]- 7164 Apr, [facility] [place] [facility] [address] [id number] [place] [address]- 5692 Apr, [facility] [place] [facility] [address] [id number] [place] [address]- 9581 Apr, [facility] [place] [facility] [address] [id number] [place] [address]- 6875 Apr, [facility] [place] [facility] [address] [id number] [place] [address]- 6166 Apr, [facility] [place] [facility] [address] [id number] [place] [address]- 2542 Apr, [facility] [place] [facility] [address] [id number] [place] [address]- 5843 Mar, [facility] [place] [facility] [address] [id number] [place] [address]- 2703 Mar, [facility] [place] [facility] [address] [id number] [place] [address]- 3457 Mar, [facility] [place] [facility] [address] [id number] [place] [address]- 5312 Mar, [facility] [place] [facility] [address] [id number] [place] [address]- 4301 Jan, [facility] [place] [facility] [address] [id number] [place] [address]- 5302 Jan, [facility] [place] [facility] [address] [id number] [place] [address]- 1054 December, [facility] [place] [facility] [address] [id number] [place] [address]- 2872 December, [facility] [place] [facility] [address] [id number] [place] [address]- 4378 December, [facility] [place] [facility] [address] [id number] [place] [address]- 5312 December, [facility] [place] [facility] [address] [id number] [place] [address]- 2115 December, [facility] [place] [facility] [address] [id number] [place] [address]- 3650 December, [facility] [place] [facility] [address] [id number] [place] [address]- 1097 December, [facility] [place] [facility] [address] [id number] [place] [address]- 2543 December, [facility] [place] [facility] [address] [id number] [place] [address]- 8406 Dec, [facility] [place] [facility] [address] [id number] [place] [address]- 6427 Dec, [facility] [place] [facility] [address] [id number] [place] [address]- 1764 Dec, [facility] [place] [facility] [address] [id number] [place] [address]- 6836 Dec, [facility] [place] [facility] [address] [id number] [place] [address]- 4690 Oct, [facility] [place] [facility] [address] [id number] [place] [address]- 4967 Oct, [facility] [place] [facility] [address] [id number] [place] [address]- 9814 Oct, [facility] [place] [facility] [address] [id number] [place] [address]- 1025 Oct, [facility] [place] [facility] [address] [id number] [place] [address]- 2311 Oct, [facility] [place] [facility] [address] [id number] [place] [address]- 4055 Oct, [facility] [place] [facility] [address] [id number] [place] [address]- 9733 Oct, [facility] [place] [facility] [address] [id number] [place] [address]- 4512 Oct, [facility] [place] [facility] [address] [id number] [place] [address]- 0218 Oct, [facility] [place] [facility] [address] [id number] [place] [address]- 9336 Oct, [facility] [place] [facility] [address] [id number] [place] [address]- 6025 Oct, [facility] [place] [facility] [address] [id number] [place] [address]- 3991 Oct, [facility] [place] [facility] [address] [id number] [place] [address]- 6253 Oct, [facility] [place] [facility] [address] [id number] [place] [address]- 9181 Oct, [facility] [place] [facility] [address] [id number] [place] [address]- 4535 Oct, [facility] [place] [facility] [address] [id number] [place] [address]- 4487 10 Oct, 2013 [facility] [place] [facility] [address] [id number] [place] [address]- 7476 10 Oct, 2013 [facility] [place] [facility] [address] [id number] [place] 6356 Oct, 2013 [facility] [place] [facility] [address] [id number] [place] [address]- 3946 07 Oct, 2013 [facility] [place] [facility] [address] [id number] [place] [address]- 5682 Oct, [facility] [place] [facility] [address] [id number] [place] [address]- 4366 Oct, [facility] [place] [facility] [address] [id number] [place] [address]- 7207 Oct, [facility] [place] [facility] [address] [id number] [place] [address]- 2949 Sep, [facility] [place] [facility] [address] [id number] [place] [address]- 4223 Sep, [facility] [place] [facility] [address] [id number] [place] [address]- 5873 Sep, [facility] [place] [facility] [address] [id number] [place] [address]- 4451 Sep, [facility] [place] [facility] [address] [id number] [place] [address]- 7575 Aug, [facility] [place] [facility] [address] [id number] [place] [address]- 3111 Aug, [facility] [place] [facility] [address] [id number] [place] [address]- 8153 Aug, [facility] [place] [facility] [address] [id number] [place] [address]- 0068 Aug, [facility] [place] [facility] [address] [id number] [place] [address]- 3509 Aug, [facility] [place] [facility] [address] [id number] [place] [address] Aug, [facility] [place] [facility] [address] [id number] [place] [address] Aug, [facility] [place] [facility] [address] [id number] [place] [address] Aug, [facility] [place] [facility] [address] [id number] [place] [address] Aug, [facility] [place] [facility] [address] [id number] [place] [address] Jul, [facility] [place] [facility] [address] [id number] [place] [address] Jul, [facility] [place] [facility] [address] [id number] [place] [address] Jul, [facility] [place] [facility] [address] [id number], [place] [address] Jul, [facility] [place] [facility] [address] [id number], [place] [address] Jul, [facility] [place] [facility] [address] [id number], [place] [address] Jul, [facility] [place] [facility] [address] [id number], [place] [address] Jul, [facility] [place] [facility] [address] [id number], [place] [address] Jul, [facility] [place] [facility] [address] [id number], [place] [address] Jun, [facility] [place] [facility] [address] [id number], [place] [address] Jun, [facility] [place] [facility] [address] [id number] [address] Jun, [facility] [place] [facility] [address] [id number], [place] [address] Jun, [facility] [place] [facility] [address] [id number] [place] [address] Jun, [facility] [place] [facility] [address] [id number] [place] [address] Jun, [facility] [place] [facility] [address] [id number] [place] [address] Jun, [facility] [place] [facility] [address] [id number] [place] [address]- [address] 11 Jun, 2013 [facility] [place] [facility] [address] [id number] [place] [address] 30 May, 2013 [facility] [place] [facility] [address] [id number] [place] [address] 26 May, 2013 [facility] [place] [facility] [address] [id number] [place] [address]- [address] 23 May, 2013 [facility] [place] [facility] [address] [id number] [place] [address] 19 May, 2013 [facility] [place] [facility] [address] [id number] [place] [address]- [address] 12 May, 2013 [facility] [place] [facility] [address] [id number] [place] [address] 11 May, 2013 [facility] [place] [facility] [address] [id number] [place] [address] Apr, [facility] [place] [facility] [address] [id number], [place] [address] Apr, [facility] [place] [facility] [address] [id number] [place] [address] Apr, [facility] [place] [facility] [address] [id number] [place] [address] Apr, [facility] [place] [facility] [address] [id number] [place] [address]- [address] Apr, [facility] [place] [facility] [address] [id number] [place] [address]- 31[address] Apr, [facility] [place] [facility] [address] [id number] [place] [address] Apr, [facility] [place] [facility] [address] [id number] [place] [address] Mar, [facility] [place] [facility] [address] [id number] [place] [address] Mar, [facility] [place] [facility] [address] [id number] [place] [address] Mar, [facility] [place] [facility] [address] [id number] [place] [address] Mar, [facility] [place] [facility] [address] [id number] [place] [address] Mar, [facility] [place] [facility] [address] [id number] [place] [address] Mar, [facility] [place] [facility] [address] [id number] [place] [address] Mar, [facility] [place] [facility] [address] [id number] [place] [address] Jan, [facility] [place] [facility] [address] [id number] [place] [address] Jan, [facility] [place] [facility] [address] [id number] [place] [address] Jan, [facility] [place] [facility] [address] [id number] [place] [address] Jan, [facility] [place] [facility] [address] [id number] [place] [address] Jan, [facility] [place] [facility] [address] [id number] [place] [address]- [address] Jan, [facility] [place] [facility] [address] [id number] [place] [address] Jan, [facility] [address] [id number] [place] [address] December, [facility] [address] [id number] [place] [address] December, [facility] [address] [id number] [place] [address] December, [facility] [address] [id number] [place] [address] December, [facility] [address] [id number] [place] [address]- [address]41 Dec, [facility] [address] [id number] [place] [address] Dec, [facility] [address] [id number] [place] [address] 9477 Dec, [facility] [address] [id number] [place] [address]- [address] Oct, [facility] [address] [id number] [place] [address]- [address] Oct, [facility] [address] [id number] [place] [address]- [address]268 Oct, [facility] [address] [id number], [place] [address] Oct, [facility] [place] [facility] [address] [id number], [place] [address] Oct, [facility] [place] [facility] [address] [id number] [place] [address]- [address]14 Oct, [facility] [place] [facility] [address] [id number] [place] [address]- [address]855 Oct, [facility] [place] [facility] [address] [id number] [place] [address]- [address] Oct, [facility] [place] [facility] [address] [id number] [place] [address]- [address] Oct, [facility] [address] [id number] [place] [address]- [address]186 Oct, [facility] [address] [id number] [place] [address]- [address] Oct, [facility] [address] [id number] [place] [address] Sep, [facility] [address] [id number] [place] [address] Sep, [facility] [address] [id number] [place] [address] Sep, [facility] [address] [id number] [place] [address] Aug, [facility] [address] [id number] [place] [address] Aug, [facility] [address] [id number] [place] [address] Aug, [facility] [address] [id number] [place] [address] Aug, [facility] [address] [id number] [place] [address] Jul, [facility] [address] [id number] [place] [address] Jul, [facility] [address] [id number] [place] [address] Jul, [facility] [place] [facility] [address] [id number] [place] [address] Jul, [facility] [address] [id number] [place] [address]76 Jul, [facility] [address] [id number] [place] [address] Jul, [facility] [place] [facility] [address] [id number] [place] [address]679 Jul, [facility] [place] [facility] [address] [id number] [place] [address] 8796 Jul, [facility] [place] [facility] [address] [id number] [place] [address] Jun, [facility] [place] [facility] [address] [id number] [place] [address] Jun, [facility] [place] [facility] [address] [id number] [place] [address] Jun, [facility] [place] [facility] [address] [id number] [place] [address] Jun, [facility] [place] [facility] [address] [id number] [place] [address] 44[address] Jun, [facility] [place] [facility] [address] [id number] [place] [address]- 45[address] May, [facility] [place] [facility] [address] [id number] [place] [address] May, [facility] [place] [facility] [address] [id number], [place] [address] 18 May, 2012 [facility] [place] [facility] [address] [id number], [place] [address] May, [facility] [place] [facility] [address] [id number], [place] [address] May, [facility] [place] [facility] [address] [id number] [place] [address]88 Apr, [facility] [place] [facility] [address] [id number] [place] [address] 1016 Apr, [facility] [place] [facility] [address] [id number], [place] [address] Apr, [facility] [place] [facility] [address] [id number], [place] [address] Apr, [facility] [place] [facility] [address] [id number] [place] [address]- [address] Apr, [facility] [place] [facility] [address] [id number] [place] [address] 9713 Apr, [facility] [place] [facility] [address] [id number] [place] [address]1 Apr, [facility] [place] [facility] [address] [id number] [place] [address] 67[address] Mar, [facility] [place] [facility] [address] [id number] [place] [address] 8875 Mar, [facility] [place] [facility] [address] [id number] [place] [address] Mar, [facility] [place] [facility] [address] [id number] [place] [address]278 Mar, [facility] [place] [facility] [address] [id number] [place] [address]83 Jan, [facility] [place] [facility] [address] [id number] [place] [address] 8542 Jan, [facility] [place] [facility] [address] [id number] [place] [address]20 Jan, [facility] [place] [facility] [address] [id number] [place] [address] 4931 Jan, [facility] [place] [facility] [address] [id number] [place] [address]- 3120 Jan, [facility] [place] [facility] [address] [id number] [place] [address] 1992 Jan, [facility] [place] [facility] [address] [id number] [place] [address]- 8948 December, [facility] [place] [facility] [address] [id number] [place] [address]- 37[address] December, [facility] [place] [facility] [address] [id number] [place] [address]- 0814 December, [facility] [place] [facility] [address] [id number] [place] [address]- [address] December, [facility] [place] [facility] [address] [id number] [place] [address]- 1276 Dec, [facility] [place] [facility] [address] [id number] [place] [address]- 7053 Dec, [facility] [place] [facility] [address] [id number] [place] [address]- 1642 30 Nov, 2011 [facility] [place] [facility] [address] [id number] [place] [address]- [address]187 29 Nov, 2011 [facility] [place] [facility] [address] [id number] [place] [address] 9959 Oct, [facility] [place] [facility] [address] [id number] [place] [address]- [address]23 16 Nov, 2011 [facility] [place] [facility] [address] [id number] [place] [address] 6329 Oct, [facility] [place] [facility] [address] [id number] [place] [address]- [address]23 Oct, [facility] [place] [facility] [address] [id number] [place] [address]- 2421 Oct, [facility] [place] [facility] [address] [id number] [place] [address]- 2354 Oct, [facility] [place] [facility] [address] [id number] [place] [address]- 7385 Oct, [facility] [place] [facility] [address] [id number] [place] [address]- 0151 Oct, [facility] [place] [facility] [address] [id number] [place] [address]- 0306 Oct, [facility] [place] [facility] [address] [id number] [place] [address]- 4196 Sep, [facility] [place] [facility] [address] [id number] [place] [address]- 5406 Sep, [facility] [place] [facility] [address] [id number] [place] [address]- 4809 Sep, [facility] [place] [facility] [address] [id number] [place] [address]- 2553 Sep, [facility] [place] [facility] [address] [id number] [place] [address]- 3594 Sep, [facility] [place] [facility] [address] [id number] [place] [address]- 0816 Sep, [facility] [place] [facility] [address] [id number] [place] [address]- 5674 Sep, [facility] [place] [facility] [address] [id number] [place] [address]- 9455 Sep, [facility] [place] [facility] [address] [id number] [place] [address]- 3967 Aug, [facility] [place] [facility] [address] [id number] [place] [address]- 5222 Aug, [facility] [place] [facility] [address] [id number] [place] [address]- 9750 Aug, [facility] [place] [facility] [address] [id number] [place] [address]- 2831 Jul, [facility] [place] [facility] [address] [id number] [place] [address]- 5542 Jul, [facility] [place] [facility] [address] [id number] [place] [address]- 8316 18 Jul, 2011 [facility] [place] [facility] [address] [id number] [place] [address]- 1229 17 Jul, 2011 [facility] [place] [facility] [address] [id number] [place] [address]- 0306 08 Jul, 2011 [facility] [place] [facility] [address] [id number] [place] [address]- 9548 02 Jul, 2011 [facility] [address] [id number] [place] [address]- 6415 31 Jun, 2011 [facility] [address] [id number] [place] [address]- 4778 20 Jun, 2011 [facility] [address] [id number] [place] [address]- 1175 20 Mar, 2011 [facility] [address] [id number] [place] [address]- 6530 14 Dec, 2010 [facility] [address] [id number] [place] [address]- 4559 14 Oct, 2010 [facility] [address] [id number] [place] [address]- 9731 06 Aug, 2010 [facility] [address] [id number] [place] [address]- 2747 30 Jul, 2010 [facility] [address] [id number] [place] [address]- 4059 Jul, [facility] [address] [id number] [place] [address]- 2054 Jul, [facility] [address] [id number] [place] [address]- 1544 Jul, [facility] [address] [id number] [place] [address]- 254 08 Jul, 2010 [facility] [address] [id number] [place] [address]- 1306 22 Aug, 2009 [facility] [place] [facility] [address] [id number] [place] [address]- 3035 15 Aug, 2009 [facility] [place] [facility] [address] [id number] [place] [address]- 7539 14 Aug, 2009 [facility] [address] [id number] [place] [address]- 1634 Aug, [facility] [address] [id number], [place] [address] Jul, [facility] [address] [id number], [place] [address]- 9285 Jul, [facility] [address] [id number], [place] [address]- 9679 Jul, [facility] [address] [id number], [place] [address]- 6026 Jul, [facility] [address] [id number], [place] [address]- 5145 Jun, [facility] [address] [id number][place] [address] Jun, IMMUNIZATIONS No Known Immunizations SOCIAL HISTORY Never Assessed REASON FOR VISIT TE PLAN OF CARE Activity Details Follow Up prn Reason:as needed VITAL SIGNS Height 64 in 2017-06-05 Blood pressure systolic 164 mmHg 2017-06-05 Blood pressure diastolic 95 mmHg 2017-06-05 MEDICATIONS Medication Instructions Dosage Frequency Start Date End Date Duration Status Requip 1 MG Orally 3 times a day 1 tablet 8h 90 days Active Pravastatin Sodium 80 MG TAKE ONE TABLET BY MOUTH AT BEDTIME (AVOID GRAPEFRUIT JUICE AND PRODUCTS WITH GRAPEFRUIT) 90 Active Effexor XR 150 MG Orally Once a day 2 capsule with food 24h 30 days Active Hydrocodone-Acetaminophen 7.5-325 MG Orally 2 times a day 1 tablet as needed 12h May, 28 days Active Folic Acid 1 MG Orally Once a day 1 tablet 24h December, December, 90 days Active Singulair 10 mg Orally Once a day 1 tablet in the evening 24h Apr, 30 day(s) Active Toprol XL 100 MG Orally Once a day 1 tablet at bedtime 24h 90 Active Fish Oil 1000 MG Orally 3 times a day 1 capsule 8h Active Doxepin HCl 25 MG Orally Once a day 1-2 capsules at bedtime 24h Active Levothyroxine Sodium 100 MCG Orally Once a day 1 tablet 24h 30 Active Lidocaine 5 % Externally 4 times a day Apply 2 grams to affected area as needed 6h Apr, 90 days Active Cyclobenzaprine HCl 10 mg Orally 2 times a day prn back pain 1 tablet as needed Oct, 10 Active Ritalin 10 mg Orally Twice a day 1.5 tablets 12h Jun, Jun, 28 days Active Loratadine 10 mg Orally Once a day as needed for allergies 1 tablet Apr, Active Pantoprazole Sodium 40 MG Orally Once a day 1 tablet 24h 90 Active RESULTS No Results PROCEDURES Procedure Date Ordered Result Body Site EXTRAC ERUPTED TOOTH/EXPOSED ROOT Jun 05, 2017 EXTRAC ERUPTED TOOTH/EXPOSED ROOT Jun 05, 2017 INSTRUCTIONS MEDICATIONS ADMINISTERED No Known [...]
--- OUTSIDE RECORDS SUMMARY | 2018-03-17 11:19 | XMS REPORT ---
Author Author BINH BETTENCOURT [facility] Address Unknown Care Team Providers Care Inside Sales Account Manager Name Role Phone BINH BETTENCOURT Unavailable PROBLEMS Type Condition ICD9-CM Code RUZ88-OT Code Onset Dates Condition Status SNOMED Code Problem 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 Active 12053875 Problem Attention-deficit hyperactivity disorder, predominantly inattentive type F90.0 Active 33295898 Problem Obstructive sleep apnea G47.33 Active 72438906 Problem Primary insomnia F51.01 Active 5746609 Problem Neuralgia M79.2 Active 82280218 Problem Cannabis use disorder, mild, abuse F12.10 Active 37060199 Problem Folic acid deficiency E53.8 Active 954293023 Problem Restless legs G25.81 Active 58438341 Problem Major depressive disorder, recurrent, mild F33.0 Active 51532880 Problem Generalized anxiety disorder F41.1 Active 74416311 Problem Major depressive disorder, recurrent episode, moderate F33.1 Active 155043259 Problem Hypertension I10 Active 55179298 Problem Hyperlipidemia E78.5 Active 54138893 Problem Primary osteoarthritis of both knees M17.0 Active 450536811 Problem Chronic hepatitis K73.9 Active 29593777 Problem Low back pain M54.5 Active 261292560 Problem Chronic viral hepatitis B without delta-agent B18.1 Active 104896389 Problem Insomnia G47.00 Active 788741449 Problem Hypothyroid E03.9 Active 18611091 Problem Depression, major, recurrent, mild F33.0 Active 926275225 Problem Obesity due to excess calories, unspecified obesity severity E66.09 Active 781493766 ALLERGIES Substance Reaction Event Type Date Status Trazodone HCl "weird dreams" Drug Allergy Mar, Active ENCOUNTERS Encounter Location Date Diagnosis [facility] [address] [facility] [id number] [address] December, [facility] [address] [facility] [id number] [address] Dec, [facility] [id number] [place] [address] 15650- 6428 Dec, [facility] [id number] [place] [address] 53155- 7822 Oct, [facility] [id number] [place] [address] 14622- 6214 Oct, Syncope, unspecified syncope type R55 ; Primary insomnia F51.01 ; Dry mouth R68.2 and Cannabis use disorder, mild, abuse F12.10 [facility] [id number] [place] [address] 89245- 9158 Oct, [facility] [id number] [place] [address] 69499- 7149 Sep, [facility] [id number] [place] [address] 33494- 1320 Sep, [facility] [id number] [place] [address] 64247- 8523 Sep, [facility] [id number] [place] [address] [id number] Sep, Dental examination Z01.20 [facility] [id number] [place] [address] 83812- 3150 Sep, Dental examination Z01.20 [facility] [id number] [place] [address] 87717- 5453 Sep, Sinus congestion R09.81 ; Mouth sores K13.79 ; Low back pain M54.5 and Mouth swelling R22.0 [facility] [id number] [place] [address] 15434- 9800 Aug, Low back pain M54.5 [facility] [id number] [place] [address] 27323- 9018 Aug, Low back pain M54.5 [facility] [id number] [place] [address] 21291- 7151 Jul, [facility] [address] 21845- 1381 Jul, 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 ; Encounter for immunization Z23 ; Hypothyroid E03.9 ; Decreased renal function N28.9 and Muscle cramps R25.2 [facility] [address] 09639- 8984 Jul, [facility] [address] 26832- 8183 Jul, [facility] [address] 95144- 0304 Jul, [facility] [address] 74471- 6223 Jul, Major depressive disorder, recurrent, mild F33.0 [facility] [address] 31323- 4783 Jul, Acquired cyst of kidney N28.1 ; Acidosis E87.2 and Hyperkalemia E87.5 [facility] [address] 71991- 3342 Jul, Major depressive disorder, recurrent, mild F33.0 ; Attention -deficit hyperactivity disorder, predominantly inattentive type F90.0 and Generalized anxiety disorder F41.1 [facility] [address] 26599- 2439 Jul, Low back pain M54.5 [facility] [address] 26261- 5067 Jun, Cough R05 ; Low back pain M54.5 and Pre-syncope R55 [facility] [address] 92226- 1856 Jun, Low back pain M54.5 [facility] [address] [id number] Jun, Dental caries K02.9 [facility] [id number] [place] [address] 99667- 6764 Jun, [facility] [address] 301320- 8839 Jun, Major depressive disorder, recurrent, mild F33.0 ; Attention -deficit hyperactivity disorder, predominantly inattentive type F90.0 and Generalized anxiety disorder F41.1 [facility] [address] 26369- 9886 May, Vertigo R42 ; Confusion R41.0 ; Weakness R53.1 and Vision changes H53.9 [facility] [address] 31900- 3983 May, [facility] [id number] [place] [address] 84272- 2358 May, [facility] [address] 12075- 3817 May, Low back pain M54.5 [facility] [id number] [place] [address] 58469- 0714 05 May, 2017 Major depressive disorder, recurrent, mild F33.0 ; Attention -deficit hyperactivity disorder, predominantly inattentive type F90.0 and Generalized anxiety disorder F41.1 [facility] [id number] [place] [address] 49750- 6147 May, [facility] [id number] [place] [address] 09499- 0148 May, Acute worsening of stage 3 chronic kidney disease N18.3 [facility] [id number] [place] [address] 96302- 2138 Apr, [facility] [address] 21397- 8446 Apr, Acute allergic rhinitis due to pollen, unspecified seasonality J30.1 ; Restless legs G25.81 and Low back pain M54.5 [facility] [id number] [place] [address] 12558- 2961 10 Apr, 2017 Primary osteoarthritis of both knees M17.0 [facility] [address] 90295- 2255 08 Apr, 2017 Generalized anxiety disorder F41.1 [facility] [address] 46735- 9162 07 Apr, 2017 Major depressive disorder, recurrent, mild F33.0 ; Attention -deficit hyperactivity disorder, predominantly inattentive type F90.0 and Generalized anxiety disorder F41.1 [facility] [id number] [place] [address] 49123- 3456 Apr, [facility] [id number] [place] [address] 45119- 0292 Mar, Major depressive disorder, recurrent episode, moderate F33.1 ; Generalized anxiety disorder F41.1 and ADHD, predominantly inattentive type F90.0 [facility] [id number] [place] [address] 36536 -6632 Mar, Abscess L02.91 [facility] [address] 99500- 7378 Mar, 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 [facility] [id number] [place] [address] 11288- 0306 Mar, Decreased renal function N28.9 [facility] [address] [id number] Mar, Dental examination Z01.20 [facility] [id number] [place] [address] 28768- 4541 17 Mar, 2017 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 [facility] [id number] [place] [address] 75349- 0336 Mar, 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 [facility] [id number] [place] [address] [id number] Mar, Dental examination Z01.20 and Dental caries K02.9 [facility] [address] [address] 8962 Mar, Chronic viral hepatitis B without delta-agent B18.1 ; Folic acid deficiency E53.8 ; 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 and Decreased renal function N28.9 [facility] [id number] [place] [address] 53006- 6092 Mar, Major depressive disorder, recurrent, mild F33.0 [facility] [id number] [place] [address] 68694- 0418 Mar, [facility] [id number] [place] [address] 82793- 9880 Mar, Chronic hepatitis K73.9 ; 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 ; Localized edema R60.0 ; Illicit drug use F19.90 ; Vision changes H53.9 and Obesity due to excess calories, unspecified obesity severity E66.09 [place] [id number] [place] [address] 33320- 6800 Jan, Major depressive disorder, recurrent, mild F33.0 [facility] [id number] [place] [address] 07479- 6461 Jan, Chronic viral hepatitis B without delta-agent B18.1 [facility] [id number] [place] [address] 68131- 4716 Jan, [facility] [id number] [place] [address] 53779- 9591 Jan, Weight gain R63.5 ; Hypothyroid E03.9 ; 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 ; Decreased renal function N28.9 and Chronic viral hepatitis B without delta-agent B18.1 [facility] [id number] [place] [address] 27542- 5526 December, Major depressive disorder, recurrent, mild F33.0 and Generalized anxiety disorder F41.1 [facility] [id number] [place] [address] 59191- 1184 December, Obesity due to excess calories, unspecified obesity severity E66.09 and Folic acid deficiency E53.8 [facility] [address] [address]- 7548 December, Folic acid deficiency E53.8 [facility] [id number] [place] [address] 83966- 6504 December, Folic acid deficiency E53.8 [facility] [id number] [place] [address] 69583- 2021 December, Obesity due to excess calories, unspecified obesity severity E66.09 [facility] [id number] [place] [address] 62352- 4900 December, [facility] [id number] [place] [address] 89122- 7784 December, Folic acid deficiency E53.8 [facility] [id number] [place] [address] [id number] December, Encounter for other administrative examinations Z02.89 [facility] [id number] [place] [address] 48130- 3019 Dec, [facility] [address] [id number] Dec, Dental caries K02.9 [facility] [id number] [place] [address] 20791- 6102 Oct, Bone pain M89.8X9 [facility] [id number] [place] [address] 13529- 9462 Oct, Hypothyroid E03.9 [facility] [id number] [place] [address] 35347- 8091 24 Oct, 2016 Hypothyroid E03.9 [facility] [id number] [place] [address] 11774- 4190 13 Oct, 2016 Breast cancer screening Z12.39 [facility] [id number] [place] [address] [id number] 08 Oct, 2016 Dental examination Z01.20 [facility] [id number] [place] [address] 72245- 5360 Oct, [facility] [id number] [place] [address] 36679- 6302 Oct, Major depressive disorder, recurrent, mild F33.0 and Generalized anxiety disorder F41.1 [facility] [id number] [place] [address] 34469- 2548 Oct, [facility] [id number] [place] [address] 80769- 5409 Oct, Hypothyroid E03.9 [place] [facility] [address] 26991- 4878 Sep, Hypothyroid E03.9 ; Chronic viral hepatitis B without delta- agent B18.1 and Folic acid deficiency E53.8 [facility] [id number] [place] [address] 17544- 3459 Sep, Hypothyroidism, unspecified type E03.9 ; Elevated parathyroid hormone E34.9 and Chronic viral hepatitis B without delta-agent B18.1 [facility] [id number] [place] [address] 93947- 5890 Sep, [facility] [id number] [place] [address] 91250- 9192 Sep, Elevated parathyroid hormone E34.9 [facility] [id number] [place] [address] 42931- 0368 Sep, [facility] [id number] [place] [address] 46438- 2843 Sep, Chronic hepatitis K73.9 ; Bone pain M89.8X9 and Abnormal complete blood count R79.89 [facility] [id number] [place] [address] 57574- 2837 Aug, Major depressive disorder, recurrent, mild F33.0 [facility] [id number] [place] [address] 16644- 8974 Aug, Bone pain M89.8X9 [facility] [id number] [place] [address] 99878- 8046 Aug, [facility] [id number] [place] [address] 48057- 6609 Jul, Chronic viral hepatitis B without delta-agent B18.1 [facility] [id number] [place] [address] 01042- 1297 Jul, Hypothyroidism, unspecified type E03.9 [facility] [id number] [place] [address] 55646- 8302 Jul, [facility] [address] 29502- 4737 Jul, Chronic hepatitis K73.9 and Hypothyroid E03.9 [facility] [address] 51614- 7800 Jul, Low back pain M54.5 [facility] [id number] [place] [address] 32165- 3347 Jun, Depression, major, recurrent, mild F33.0 and ADD (attention deficit disorder) F90.0 [facility] [id number] [place] [address] 87915- 9080 Jun, [facility] [id number] [place] [address] 10890- 9204 Jun, Low back pain M54.5 [facility] [id number] [place] [address] 19011- 2541 Jun, Encounter for immunization Z23 ; Major depressive disorder, recurrent, mild F33.0 and Attention-deficit hyperactivity disorder, predominantly inattentive type F90.0 [facility] [id number] [place] [address] 63628- 0665 06 Jun, 2016 [facility] [address] 98578- 3030 Jun, Low back pain M54.5 [facility] [id number] [place] [address] 56260- 0426 May, [facility] [address] 97573- 7164 May, [facility] [address] 58718- 0141 May, Essential (primary) hypertension I10 [facility] [address] 47389- 5103 May, Low back pain M54.5 [facility] [address] 11023- 6907 May, Low back pain M54.5 ; Chronic hepatitis K73.9 and Hypothyroid E03.9 [facility] [address] 90971- 6074 May, Hypothyroidism, unspecified type E03.9 [facility] [address] 75351- 3938 May, Low back pain M54.5 [facility] [address] 34168- 5075 May, [facility] [address] 03242- 7059 May, [facility] [address] 56219- 2692 May, Major depressive disorder, recurrent, moderate F33.1 ; Generalized anxiety disorder F41.1 ; Insomnia G47.00 and ADD (attention deficit disorder) F90.0 [facility] [address] 93168- 8582 Apr, Low back pain M54.5 [facility] [id number] [place] [address] 76327- 8421 Apr, [facility] [id number] [place] [address] 16710- 6114 15 Apr, 2016 Low back pain M54.5 [facility] [id number] [place] [address] 51976- 7673 Apr, Low back pain M54.5 ; Tooth pain K08.8 and Seasonal allergic rhinitis due to pollen J30.1 [facility] [id number] [place] [address] 68827- 7251 Apr, Low back pain M54.5 [facility] [id number] [place] [address] 61408- 5335 Apr, [facility] Pap smear of vagina R87.622 [facility] [id number] [place] [address] 01233- 0064 Apr, Low back pain M54.5 [facility] [id number] [place] [address] 15428- 3936 Mar, [facility] [id number] [place] [address] 74754- 9806 Mar, Low back pain M54.5 [facility] [id number] [place] [address] 52439- 6711 Mar, Encounter for Papanicolaou smear for cervical cancer screening Z12.4 ; Encounter for routine gynecological examination Z01.419 and Breast cancer screening Z12.39 [facility] [id number] [place] [address] 10746- 3313 18 Mar, 2016 Hypothyroidism, unspecified type E03.9 [facility] [id number] [place] [address] 80828- 3217 14 Mar, 2016 Low back pain M54.5 ; Other chronic pain G89.29 ; Hypothyroid E03.9 and Hypothyroidism, unspecified type E03.9 [facility] [address] [place] [address] 37684- 1632 Mar, Major depressive disorder, recurrent, moderate F33.1 and Attention-deficit hyperactivity disorder, predominantly inattentive type F90.0 [facility] [address] [address] -3110 Mar, Bronchitis J40 [facility] [id number] [place] [address] 99705- 1434 Jan, [facility] [id number] [place] [address] 87388- 8488 Jan, [facility] [id number] [place] [address] 84656- 9381 Jan, Insomnia G47.00 [facility] [id number] [place] [address] 29724- 9445 December, [facility] [id number] [place] [address] 32124- 1467 December, Major depressive disorder in partial remission F32.4 and Attention-deficit hyperactivity disorder, unspecified type F90.9 [facility] [id number] [place] [address] 75941- 2227 December, [facility] [id number] [place] [address] 08259- 3110 December, [facility] [id number] [place] [address] 20087- 5468 Dec, [facility] [id number] [place] [address] 61426- 1260 Dec, Major depressive disorder, recurrent episode, moderate 296.32 and Attention deficit disorder of childhood without mention of hyperactivity 314.00 [facility] [id number] [place] [address] 72442- 8854 Dec, Major depressive disorder, recurrent episode, mild 296.31 ; ADD (attention deficit disorder) F90.0 and Hyperlipidemia E78.5 [facility] [id number] [place] [address] 21132- 4643 Dec, Insomnia G47.00 [facility] [id number] [place] [address] 62846- 1730 Dec, Attention-deficit hyperactivity disorder, predominantly inattentive type F90.0 [facility] [id number] [place] [address] 64825- 6447 Oct, Restless legs syndrome G25.81 [facility] [id number] [place] [address] 75676- 0734 Oct, Hypothyroidism, unspecified type E03.9 [facility] [id number] [place] [address] 95271- 6449 Oct, [facility] [id number] [place] [address] 55933- 9685 Oct, [facility] [id number] [place] [address] 39834- 6208 Oct, Hypothyroid E03.9 and Chronic hepatitis K73.9 [facility] [id number] [place] [address] 34338- 0780 Oct, [facility] [id number] [place] [address] 52018- 8656 Oct, Restless legs syndrome G25.81 ; Chronic hepatitis K73.9 ; Hypertension I10 ; Hypothyroid E03.9 and Breast cancer screening Z12.39 [facility] [address] [place] [address] 55693- 4720 Oct, [facility] [id number] [place] [address] 16636- 8968 Oct, [facility] [id number] [place] [address] 16000- 1293 Oct, [facility] [id number] [place] [address] 09769- 0282 Oct, [facility] [id number] [place] [address] 14817- 8296 Oct, [facility] [id number] [place] [address] 25652- 1641 10 Oct, 2015 [facility] [address] [address]- 2549 05 Oct, 2015 [facility] [id number] [place] [address] 63838- 6607 Sep, [facility] [id number] [place] [address] 63900- 0451 Sep, Attention-deficit hyperactivity disorder, predominantly inattentive type F90.0 and Major depressive disorder in partial remission F32.4 [facility] [id number] [place] [address] 15373- 2415 Sep, [facility] [id number] [place] [address] 93302- 7702 Aug, [facility] [id number] [place] [address] 15754- 2551 Aug, [facility] [id number] [place] [address] 77437- 8643 Aug, Major depressive disorder, recurrent, mild F33.0 ; Attention -deficit hyperactivity disorder, unspecified type F90.9 and Generalized anxiety disorder F41.1 [facility] [address] [address]- 6644 08 Aug, 2015 Chronic hepatitis K73.9 ; Primary osteoarthritis of both knees M17.0 and Neuralgia M79.2 [facility] [address] [address]- 5776 Jul, [facility] [address] [address]- 3724 Jul, [facility] [id number] [place] [address] 45199- 9001 Jul, [facility] [address] [address]- 2753 Jul, [facility] [id number] [place] [address] 52064- 3530 Jun, [facility] [id number] [place] [address] [phone]- [address]885 Jun, Bronchitis J40 and Encounter for immunization Z23 [facility] [id number] [place] [address]- 1207 30 May, 2015 [facility] [address] [address] May, [facility] [address] [address] May, [facility] [address] [address] May, Hypokalemia 276.8 [facility] [id number] [place] [address] 12540- 7200 08 May, 2015 Major depressive disorder, recurrent episode, mild 296.31 ; Attention deficit disorder of childhood without mention of hyperactivity 314.00 and Generalized anxiety disorder 300.02 [facility] [id number] [place] [address] 43760- 3947 May, Hypertension 401.9 and Hypokalemia 276.8 [facility] [id number] [place] [address] 46255- 4089 May, [facility] [id number] [place] [address] 20136- 0186 Apr, [facility] [id number] [place] [address] 93389- 3905 Apr, [facility] [id number] [place] [address] 56625- 2081 Apr, [facility] [id number] [place] [address] [id number]- 5110 Apr, [facility] [id number] [place] [address] 71501- 6695 Mar, [facility] [address] [address] [address] 1027 Mar, [facility] [id number] [address] 9[address] Mar, [facility] [id number], [place] [address] 6326 Mar, [facility] [id number] [place] [address]- 8548 Mar, Arthritis of both knees 716.96 ; Hepatitis B 070.30 ; Hypertension 401.9 ; Carpal tunnel syndrome 354.0 and Cubital tunnel syndrome 354.2 [facility] [id number] [place] [address] 47[address]- 5641 Mar, [facility] [id number] [place] [address] 82367- 6956 Mar, [facility] [id number] [place] [address] 14870- 9948 Mar, 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, chronic, without mention of hepatitis delta 070.32 ; Chronic hepatitis C without mention of hepatic coma 070.54 and Major depressive disorder, recurrent episode, moderate 296.32 [facility] [id number] [address] Jan, [facility] [id number], [place] [address] 9400 Jan, Major depressive disorder, recurrent episode, mild 296.31 and Attention deficit disorder of childhood without mention of hyperactivity 314.00 [facility] [id number] [address] 4589 Jan, [facility] [id number] [place] [address] 8[address]58- 7459 Jan, [facility] [id number] [address] 1682 December, Attention deficit disorder of childhood without mention of hyperactivity 314.00 ; Major depressive disorder, recurrent episode, mild 296.31 and Generalized anxiety disorder 300.02 [facility] [address] [facility] [id number] [place] [address]- 6655 08 Dec, 2014 [facility] [address] [facility] [id number] [place] [address]- 6395 14 Dec, 2014 [facility] [address] [id number] [address] 6523 13 Dec, 2014 [facility] [address] [facility] [id number] [address]- 2586 19 Oct, 2014 [facility] [address] [facility] [id number] [place] [address]- 1728 19 Oct, 2014 [facility] [address] [facility] [id number], [place] [address]- 1152 18 Oct, 2014 [facility] [address] [id number] [place] [address]- 0831 18 Oct, 2014 [facility] [address] [facility] [id number], [place] [address]- 0878 18 Oct, 2014 [facility] [address] [id number] [address]- 4497 18 Oct, 2014 [facility] [address] [id number] [address] 1921 16 Oct, 2014 [facility] [address] [id number] [address]- 8179 13 Oct, 2014 [facility] [place] [facility] [address] [facility] [id number], [place] [address]- 5465 13 Oct, 2014 [facility] [place] [facility] [address] [facility] [id number], [place] [address]- 2807 12 Oct, 2014 [facility] [place] [facility] [address] [facility] [id number], [place] [address]- 2152 12 Oct, 2014 [facility] [place] [facility] [address] [id number] [address]- 1767 10 Oct, 2014 [facility] [address] [facility] [id number] [place] [address]- 7266 10 Oct, 2014 [facility] [place] [facility] [address] [id number] [place] [address]- 3851 05 Oct, 2014 [facility] [place] [facility] [address] [facility] [id number] [place] [address]- 5964 05 Oct, 2014 [facility] [place] [facility] [address] [facility] [id number] [place] [address]- 2419 26 Oct, 2014 [facility] [place] [facility] [address] [facility] [id number] [place] [address]- 0255 Oct, 2014 [facility] [place] [facility] [address] [facility] [id number] [place] [address]- 7029 25 Oct, 2014 [facility] [place] [facility] [address] [facility] [id number] [place] [address]- 4166 19 Oct, 2014 [facility] [place] [facility] [address] [facility] [id number] [place] [address]- 9303 18 Oct, 2014 [facility] [place] [facility] [address] [facility] [id number] [place] [address]- 2502 17 Oct, 2014 [facility] [place] [facility] [address] [facility] [id number] [place] [address]- 9494 17 Oct, 2014 [facility] [place] [facility] [address] [facility] [id number] [place] [address]- 9253 11 Oct, 2014 [facility] [place] [facility] [address] [facility] [id number] [address]- 9316 11 Oct, 2014 [facility] [place] [facility] [address] [facility] [id number] [place] [address]- 1159 11 Oct, 2014 [facility] [place] [facility] [address] [facility] [id number] [place] [address]- 0174 11 Oct, 2014 [facility] [place] [facility] [address] [facility] [id number] [place] [address]- 4057 10 Oct, 2014 [facility] [place] [facility] [address] [facility] [id number], [place] [address]- 3010 Oct, [facility] [place] [facility] [address] [id number] [place] [address]- 8700 Sep, [facility] [place] [facility] [address] [id number] [place] [address]- 5926 Sep, [facility] [place] [facility] [address] [id number] [place] [address]- 9710 Sep, [facility] [place] [facility] [address] [id number] [place] [address]- 8644 Sep, [facility] [place] [facility] [address] [id number] [place] [address]- 6797 Sep, [facility] [place] [facility] [address] [id number] [place] [address]- 8510 Sep, [facility] [place] [facility] [address] [id number] [place] [address]- 3412 Sep, [facility] [place] [facility] [address] [id number] [place] [address]- 2274 Sep, [facility] [place] [facility] [address] [id number] [place] [address]- 5588 Sep, [facility] [place] [facility] [address] [id number] [place] [address]- 2917 Sep, [facility] [place] [facility] [address] [id number], [place] [address]- 9884 Sep, [facility] [place] [facility] [address] [id number] [place] [address]- 5933 Sep, [facility] [place] [facility] [address] [id number] [place] [address]- 5048 Sep, [facility] [place] [facility] [address] [id number] [place] [address]- 5760 Sep, [facility] [place] [facility] [address] [id number] [place] [address]- 8900 Sep, [facility] [place] [facility] [address] [id number] [place] [address]- 3732 Sep, [facility] [address] [id number] [place] 4776 Aug, [facility] [place] [facility] [address] [id number] [place] 2886 Aug, [facility] [place] [facility] [address] [id number] [place] 0926 Aug, [facility] [place] [facility] [address] [id number] [place] [address]- 4153 Aug, [facility] [place] [facility] [address] [id number] [place] [address]- 4471 Aug, [facility] [place] [facility] [address] [id number] [place] [address]- 9466 Aug, [facility] [place] [facility] [address] [id number] [place] [address]- 7652 Aug, [facility] [place] [facility] [address] [id number] [place] [address]- 9444 Aug, [facility] [place] [facility] [address] [id number] [place] [address]- 0503 19 Aug, 2014 [facility] [place] [facility] [address] [id number] [place] [address]- 1779 18 Aug, 2014 [facility] [place] [facility] [address] [id number] [place] [address]- 8613 18 Aug, 2014 [facility] [place] [facility] [address] [id number] [place] [address]- 1635 16 Aug, 2014 [facility] [place] [facility] [address] [id number] [place] [address]- 8746 16 Aug, 2014 [facility] [place] [facility] [address] [id number] [place] [address]- 3286 15 Aug, 2014 [facility] [place] [facility] [address] [id number] [place] [address]- 2290 Aug, [facility] [place] [facility] [address] [id number] [place] [address]- 1169 Aug, [facility] [place] [facility] [address] [id number] [place] [address]- 9019 Aug, [facility] [place] [facility] [address] [id number] [place] [address]- 4785 Aug, [facility] [place] [facility] [address] [id number] [place] [address]- 0683 Aug, [facility] [place] [facility] [address] [id number] [place] [address]- 9367 Aug, [facility] [place] [facility] [address] [id number] [place] [address]- 4260 Aug, [facility] [place] [facility] [address] [id number] [place] [address]- 3032 Aug, [facility] [place] [facility] [address] [id number] [place] [address]- 2467 Aug, [facility] [place] [facility] [address] [id number] [place] [address]- 6529 Aug, [facility] [place] [facility] [address] [id number] [place] [address]- 2707 Aug, [facility] [place] [facility] [address] [id number] [place] [address]- 1439 Jul, [facility] [place] [facility] [address] [id number], [place] [address]- 2599 Jul, [facility] [place] [facility] [address] [id number] [place] [address]- 6643 Jul, [facility] [place] [facility] [address] [id number] [place] [address]- 3757 Jul, [facility] [place] [facility] [address] [id number] [place] [address]- 9479 Jul, [facility] [place] [facility] [address] [id number] [place] [address]- 5488 Jul, [facility] [place] [facility] [address] [id number] [place] [address]- 4788 Jun, [facility] [place] [facility] [address] [id number] [place] [address]- 6444 Jun, [facility] [place] [facility] [address] [id number] [place] [address]- 5600 Jun, [facility] [place] [facility] [address] [id number] [place] [address]- 9640 14 Jun, 2014 [facility] [place] [facility] [address] [id number] [place] [address]- 9932 Jun, [facility] [place] [facility] [address] [id number] [place] [address]- 1303 Jun, [facility] [place] [facility] [address] [id number] [place] [address]- 4686 Jun, [facility] [place] [facility] [address] [id number] [place] [address]- 3684 Jun, [facility] [place] [facility] [address] [id number] [place] [address]- 5574 16 May, 2013 [facility] [place] [facility] [address] [id number] [place] [address]- 9522 16 May, 2013 [facility] [place] [facility] [address] [id number] [place] [address]- 9469 15 May, 2013 [facility] [place] [facility] [address] [id number] [place] [address]- 7228 15 Sep, 2013 [facility] [place] [facility] [address] [id number] [place] [address]- 0054 08 Sep, 2013 [facility] [place] [facility] [address] [id number] [place] [address]- 5639 08 Sep, 2013 [facility] [place] [facility] [address] [facility] [id number] [place] [address]- 8672 08 Sep, 2013 [facility] [place] [facility] [address] [id number] [place] [address]- 1879 May, [facility] [place] [facility] [address] [id number] [place] [address]- 9277 Apr, [facility] [place] [facility] [address] [id number] [place] [address]- 7726 Apr, [facility] [place] [facility] [address] [id number] [place] [address]- 1563 Apr, [facility] [place] [facility] [address] [id number] [place] [address]- 6000 Apr, [facility] [place] [facility] [address] [id number] [place] [address]- 4809 Apr, [facility] [place] [facility] [address] [id number] [place] [address]- 2163 Apr, [facility] [place] [facility] [address] [id number] [place] [address]- 0652 Apr, [facility] [place] [facility] [address] [id number] [place] [address]- 9091 Apr, [facility] [place] [facility] [address] [id number] [place] [address]- 6827 Apr, [facility] [place] [facility] [address] [id number] [place] [address]- 3635 Apr, [facility] [place] [facility] [address] [id number] [place] [address]- 7843 Apr, [facility] [place] [facility] [address] [id number] [place] [address]- 8921 Apr, [facility] [place] [facility] [address] [id number] [place] [address]- 0479 Apr, [facility] [place] [facility] [address] [id number] [place] [address]- 7801 Mar, [facility] [place] [facility] [address] [id number] [place] [address]- 6968 Mar, [facility] [place] [facility] [address] [id number] [place] [address]- 5671 Mar, [facility] [place] [facility] [address] [id number] [place] [address]- 3275 Mar, [facility] [place] [facility] [address] [id number] [place] [address]- 5431 Jan, [facility] [place] [facility] [address] [id number] [place] [address]- 7247 Jan, [facility] [place] [facility] [address] [id number] [place] 6081 December, [facility] [place] [facility] [address] [id number] [place] [address]- 5309 December, [facility] [place] [facility] [address] [id number] [place] [address]- 3701 December, [facility] [place] [facility] [address] [id number] [place] [address]- 6694 December, [facility] [place] [facility] [address] [id number] [place] [address]- 6334 December, [facility] [place] [facility] [address] [id number] [place] [address]- 0947 December, [facility] [place] [facility] [address] [id number] [place] [address]- 3236 December, [facility] [place] [facility] [address] [id number] [place] [address]- 0600 December, [facility] [place] [facility] [address] [id number] [place] [address]- 3369 Dec, [facility] [place] [facility] [address] [id number] [place] [address]- 0133 Dec, [facility] [place] [facility] [address] [id number] [place] [address]- 2378 Dec, [facility] [place] [facility] [address] [id number] [place] [address]- 2596 24 Dec, 2013 [facility] [place] [facility] [address] [id number] [place] [address]- 3677 Oct, [facility] [place] [facility] [address] [id number] [place] 5556 Oct, [facility] [place] [facility] [address] [id number] [place] [address]- 6419 Oct, [facility] [place] [facility] [address] [id number] [place] [address]- 0415 Oct, [facility] [place] [facility] [address] [id number] [place] [address]- 7692 Oct, [facility] [place] [facility] [address] [facility] [id number] [place] [address]- 0776 Oct, [facility] [place] [facility] [address] [id number] [place] [address]- 8417 Oct, [facility] [place] [facility] [address] [id number] [place] [address]- 1622 Oct, [facility] [place] [facility] [address] [id number] [place] [address]- 3908 Oct, [facility] [place] [facility] [address] [facility] [id number] [place] [address]- 3786 Oct, [facility] [place] [facility] [address] [id number] [place] [address]- 8802 Oct, [facility] [place] [facility] [address] [id number] [place] 6069 Oct, [facility] [place] [facility] [address] [id number] [place] 3916 Oct, [facility] [place] [facility] [address] [id number] [place] 3196 Oct, [facility] [place] [facility] [address] [id number] [place] [address]- 6534 Oct, [facility] [place] [facility] [address] [id number] [place] [address]- 7213 Oct, [facility] [place] [facility] [address] [id number] [place] [address]- 0354 Oct, [facility] [place] [facility] [address] [facility] [id number] [place] [address]- 5855 Oct, [facility] [place] [facility] [address] [id number] [place] [address]- 5102 Oct, [facility] [place] [facility] [address] [id number] [place] [address]- 2749 Oct, [facility] [place] [facility] [address] [facility] [id number] [place] [address]- 0094 Oct, [facility] [place] [facility] [address] [facility] [id number] [place] [address]- 2068 Oct, [facility] [place] [facility] [address] [facility] [id number] [place] [address]- 4791 Sep, [facility] [place] [facility] [address] [facility] [id number] [place] [address]- 3238 Sep, [facility] [place] [facility] [address] [facility] [id number] [place] [address]- 7900 Sep, [facility] [place] [facility] [address] [facility] [id number] [place] [address]- 5635 Sep, [facility] [place] [facility] [address] [facility] [id number] [address]- 2896 Aug, [facility] [place] [facility] [address] [facility] [id number] [place] [address]- 4690 Aug, [facility] [place] [facility] [address] [facility] [id number] [place] [address]- 3131 Aug, [facility] [place] [facility] [address] [facility] [id number] [place] [address]- 1180 Aug, [facility] [place] [facility] [address] [id number] [place] [address]- 7627 Aug, [facility] [place] [facility] [address] [id number] [place] [address]- 9311 Aug, [facility] [place] [facility] [address] [id number] [place] [address]- 9312 Aug, [facility] [place] [facility] [address] [id number] [place] [address]- 9703 Aug, [facility] [place] [facility] [address] [id number] [place] [address]- 2137 Aug, [facility] [place] [facility] [address] [id number] [place] 4850 Jul, [facility] [place] [facility] [address] [id number] [place] [address]- 6388 Jul, [facility] [place] [facility] [address] [id number] [place] [address]- 2203 Jul, [facility] [place] [facility] [address] [id number] [place] [address]- 2004 Jul, [facility] [place] [facility] [address] [id number] [place] [address]- 3929 Jul, [facility] [place] [facility] [address] [id number] [place] [address]- 4889 Jul, [facility] [place] [facility] [address] [id number] [place] [address]- 3146 Jul, [facility] [place] [facility] [address] [id number] [place] [address]- 7839 Jul, [facility] [place] [facility] [address] [id number] [place] [address]- 9277 Jun, [facility] [place] [facility] [address] [id number] [place] [address]- 4313 Jun, [facility] [place] [facility] [address] [id number] [place] [address]- 7931 Jun, [facility] [place] [facility] [address] [id number] [place] [address]- 4102 Jun, [facility] [place] [facility] [address] [id number] [place] [address] Jun, [facility] [place] [facility] [address] [id number] [place] [address] Jun, [facility] [place] [facility] [address] [id number] [place] [address] Jun, [facility] [place] [facility] [address] [id number] [place] [address] Jun, [facility] [place] [facility] [address] [id number] [place] [address] 30 May, 2013 [facility] [place] [facility] [address] [id number] [place] [address] 26 May, 2013 [facility] [place] [facility] [address] [id number] [place] [address] 23 May, 2013 [facility] [place] [facility] [address] [id number] [place] [address] 19 May, 2013 [facility] [place] [facility] [address] [id number] [place] [address] 12 May, 2013 [facility] [place] [facility] [address] [id number], [place] [address] May, [facility] [place] [facility] [address] [id number], [place] [address] Apr, [facility] [place] [facility] [address] [id number] [place] [address] Apr, [facility] [place] [facility] [address] [id number], [place] [address] Apr, [facility] [place] [facility] [address] [id number] [place] [address] Apr, [facility] [place] [facility] [address] [id number] [place] [address] Apr, [facility] [place] [facility] [address] [id number] [place] [address]- [address] Apr, [facility] [place] [facility] [address] [id number] [place] [address] Apr, [facility] [place] [facility] [address] [id number] [place] [address] Mar, [facility] [place] [facility] [address] [id number] [place] [address] Mar, [facility] [place] [facility] [address] [id number] [place] [address] Mar, [facility] [place] [facility] [address] [id number] [place] [address]- [address] Mar, [facility] [place] [facility] [address] [id number] [place] [address] Mar, [facility] [place] [facility] [address] [id number] [place] [address] Mar, [facility] [place] [facility] [address] [id number] [place] [address] Mar, [facility] [place] [facility] [address] [id number] [place] [address] Jan, [facility] [place] [facility] [address] [id number] [place] [address] Jan, [facility] [place] [facility] [address] [id number] [place] [address] 69[address] Jan, [facility] [place] [facility] [address] [id number] [place] [address] Jan, [facility] [place] [facility] [address] [id number] [place] [address] Jan, [facility] [place] [facility] [address] [id number] [place] [address]- [address] Jan, [facility] [place] [facility] [address] [id number] [place] [address] Jan, [facility] [address] [id number] [place] [address] December, [facility] [address] [id number] [place] [address] December, [facility] [address] [id number] [place] [address] December, [facility] [address] [id number] [place] [address] December, [facility] [address] [id number] [place] [address] Dec, [facility] [address] [id number] [place] [address] Dec, [facility] [address] [id number] [place] [address] Dec, [facility] [address] [id number] [place] [address] 29 Oct, 2012 [facility] [address] [id number] [place] [address]- [address] Oct, [facility] [address] [id number] [place] [address] Oct, [facility] [address] [id number] [place] [address] Oct, [facility] [address] [id number] [place] [address] Oct, [facility] [address] [id number] [place] [address]- 7910 Oct, [facility] [address] [id number] [place] [address]- [address] 18 Oct, 2012 [facility] [address] [id number] [place] [address]- [address] Oct, [facility] [address] [id number] [place] [address]- [address] Oct, [facility] [address] [id number] [place] [address] Oct, [facility] [address] [facility] [id number] [place] [address]- [address]196 Oct, [facility] [address] [id number] [place] [address] Sep, [facility] [address] [id number] [place] [address]- [address] Sep, [facility] [address] [id number] [place] [address] Sep, [facility] [address] [facility] [id number] [place] [address] Aug, [facility] [address] [id number] [place] [address] Aug, [facility] [address] [facility] [id number] [place] [address] Aug, [facility] [address] [facility] [id number] [place] [address] Aug, [facility] [address] [facility] [id number], [place] [address] Jul, [facility] [address] [id number], [place] [address] Jul, [facility] [place] [address] [id number] [place] [address]- 3026 Jul, [facility] [place] [facility] [address] [facility] [id number] [place] [address]- 97[address] Jul, [facility] [place] [facility] [address] [facility] [id number] [place] [address] Jul, [facility] [place] [facility] [address] [id number] [place] [address] 254 Jul, [facility] [place] [facility] [address] [id number] [place] [address] Jul, [facility] [place] [facility] [address] [id number] [place] [address] Jul, [facility] [place] [facility] [address] [id number] [place] [address] Jun, [facility] [place] [facility] [address] [id number] [place] [address] Jun, [facility] [place] [facility] [address] [id number] [place] [address] Jun, [facility] [place] [facility] [address] [id number] [place] [address] Jun, [facility] [place] [facility] [address] [id number] [place] [address] Jun, [facility] [place] [facility] [address] [id number] [place] [address]60 26 May, 2012 [facility] [place] [facility] [address] [id number] [place] [address] 20 May, 2012 [facility] [place] [facility] [address] [id number] [place] [address] 18 May, 2012 [facility] [place] [facility] [address] [id number] [place] [address]38 09 May, 2012 [facility] [place] [facility] [address] [id number] [place] [address] 04 May, 2012 [facility] [place] [facility] [address] [id number] [place] [address]53 30 Apr, 2012 [facility] [place] [facility] [address] [id number] [place] [address] 29 Apr, 2012 [facility] [place] [facility] [address] [id number] [place] [address] Apr, [facility] [place] [facility] [address] [id number] [place] [address] Apr, [facility] [place] [facility] [address] [id number] [place] [address] 0873 Apr, [facility] [place] [facility] [address] [id number] [place] [address] Apr, [facility] [place] [facility] [address] [id number] [place] [address]- 0692 Apr, [facility] [place] [facility] [address] [id number] [place] [address] Mar, [facility] [place] [facility] [address] [id number] [place] [address] 135[address] Mar, [facility] [place] [facility] [address] [id number] [place] [address] 33[address] Mar, [facility] [place] [facility] [address] [id number] [place] [address] 9853 Mar, [facility] [place] [facility] [address] [id number] [place] [address] Jan, [facility] [place] [facility] [address] [id number] [place] [address]161 Jan, [facility] [place] [facility] [address] [id number] [place] [address] 8255 Jan, [facility] [place] [facility] [address] [id number] [place] [address] 2198 Jan, [facility] [place] [facility] [address] [id number] [place] [address] 86[address] Jan, [facility] [place] [facility] [address] [id number] [place] [address]- 8024 Jan, [facility] [place] [facility] [address] [id number] [place] [address] December, [facility] [place] [facility] [address] [id number] [place] [address]- [address] December, [facility] [address] [id number] [place] [address]236 December, [facility] [place] [facility] [address] [id number] [place] [address]226 December, [facility] [place] [facility] [address] [id number] [place] [address]46 Dec, [facility] [place] [facility] [address] [id number] [place] [address] 2696 Dec, [facility] [place] [facility] [address] [id number] [place] [address] Oct, [facility] [place] [facility] [address] [id number] [place] [address] 48[address] Oct, [facility] [place] [facility] [address] [id number] [place] [address] 9777 Oct, [facility] [place] [facility] [address] [id number] [place] [address]- 8263 Oct, [facility] [place] [facility] [address] [id number] [place] [address] 1417 Oct, [facility] [place] [facility] [address] [facility] [id number] [place] [address] 4515 Oct, [facility] [place] [facility] [address] [id number] [place] [address] 9516 Oct, [facility] [place] [facility] [address] [id number] [place] [address]- 2546 Oct, [facility] [place] [facility] [address] [id number] [place] [address] 3856 Oct, [facility] [place] [facility] [address] [id number] [place] [address]- 4736 Oct, [facility] [place] [facility] [address] [id number] [place] [address] 8316 Oct, [facility] [address] [id number] [place] [address]- 8038 Sep, [facility] [place] [facility] [address] [id number] [place] [address]- 2145 Sep, [facility] [place] [facility] [address] [id number] [place] [address]- 1173 Sep, [facility] [place] [facility] [address] [id number] [place] [address]- 0756 Sep, [facility] [place] [facility] [address] [id number] [place] [address]- 0068 Sep, [facility] [place] [facility] [address] [id number] [place] [address]- 8976 Sep, [facility] [place] [facility] [address] [id number] [place] [address]- 9908 Sep, [facility] [place] [facility] [address] [id number] [place] [address]- 3468 Sep, [facility] [place] [facility] [address] [id number] [place] [address]- 5694 Aug, [facility] [place] [facility] [address] [id number] [place] [address] 3510 Aug, [facility] [place] [facility] [address] [id number] [place] [address]- 9318 Aug, [facility] [place] [facility] [address] [id number] [address] Jul, [facility] [place] [facility] [address] [id number] [place] [address] 3688 Jul, [facility] [place] [facility] [address] [id number] [place] [address]- 5682 Jul, [facility] [place] [facility] [address] [id number][place] [address] 17 Jul, 2011 [facility] [place] [facility] [address] [id number], [place] [address] 08 Jul, 2011 [facility] [address] [id number] [place] [address]- 1664 02 Jul, 2011 [facility] [place] [facility] [address] [id number] [place] [address]- 8648 31 Jun, 2011 [facility] [place] [facility] [address] [id number] [place] [address]- 1246 20 Jun, 2011 [facility] [place] [facility] [address] [id number] [place] [address]- 5833 20 Mar, 2011 [facility] [place] [facility] [address] [id number] [place] [address]- 2091 14 Dec, 2010 [facility] [place] [facility] [address] [id number] [place] [address]- 0810 14 Oct, 2010 [facility] [place] [facility] [address] [facility] [id number] [place] [address]- 9747 06 Aug, 2010 [facility] [place] [facility] [address] [id number] [place] [address]- 4317 30 Jul, 2010 [facility] [place] [facility] [address] [facility] [id number] [place] [address]- 2975 11 Jul, 2010 [facility] [place] [facility] [address] [facility] [id number] [place] [address]- 1064 10 Jul, 2010 [facility] [place] [facility] [address] [facility] [id number] [place] [address]- 9100 09 Jul, 2010 [facility] [place] [facility] [address] [id number] [place] [address]- 5655 08 Jul, 2010 [facility] [place] [facility] [address] [id number] [place] [address]- 6214 22 Aug, 2009 [facility] [place] [facility] [address] [id number] [place] [address]- 9497 15 Aug, 2009 [facility] [place] [facility] [address] [facility] [id number] [place] [address]- 2146 14 Aug, 2009 [facility] [place] [facility] [address] [facility] [id number] [address] Aug, [facility] [address] [id number] [address] Jul, [facility] [id number], [place] [address]88 Jul, [facility] [id number], [place] [address] 37[address] Jul, [facility] [id number], [place] [address]- 2625 Jul, [facility] [id number], [place] [address]67 Jun, [facility] [id number], [place] [address]- [address] Jun, IMMUNIZATIONS No Known Immunizations SOCIAL HISTORY Never Assessed REASON FOR VISIT luis alberto PLAN OF CARE Activity Details Follow Up prn Reason:Ext LR VITAL SIGNS Height 64 in 2017-03-15 Blood pressure systolic 110 mmHg 2017-03-15 Blood pressure diastolic 63 mmHg 2017-03-15 MEDICATIONS Medication Instructions Dosage Frequency Start Date End Date Duration Status Lisinopril 20 MG Orally Once a day 1 tablet 24h 30 Active MetFORMIN HCl ER 500 mg Orally twice a day 1 tablet with evening meal 12h 07 Jan, 2017 30 day(s) Active Neurontin 300 MG Orally 2 times a day 1 capsule 12h Aug, 30 days Active Toprol XL 100 MG Orally Once a day 1 tablet at bedtime 24h 90 Active Pantoprazole Sodium 40 MG Orally Once a day 1 tablet 24h 90 Active HydrOXYzine HCl 25 MG Orally every 8 hrs 1 tablet as needed 8h 13 Jan, 2017 30 day(s) Active Doxepin HCl 25 MG Orally Once a day 1-2 capsules at bedtime 24h 30 days Active Folic Acid 1 MG Orally Once a day 1 tablet 24h December, December, 90 days Active Pravastatin Sodium 80 MG TAKE ONE TABLET BY MOUTH AT BEDTIME (AVOID GRAPEFRUIT JUICE AND PRODUCTS WITH GRAPEFRUIT) 90 Active Effexor XR 150 MG Orally Once a day 2 capsule with food 24h 30 Active Requip 1 MG Orally twice a day 1 tablet 12h 90 days Active Truvada 200-300 mg Orally Once a day 1 tablet 24h 30 Active Albuterol Sulfate 90 mcg/actuation 2 puffs by Inhalation route every 4-6 hours as needed PRN cough or wheezing Aug, Active Cyclobenzaprine HCl 10 mg Orally 2 times a day prn back pain 1 tablet as needed Oct, 10 Active Fish Oil 1000 MG Orally 3 times a day 1 capsule 8h Active Levothyroxine Sodium 100 MCG Orally Once a day 1 tablet 24h 30 Active RESULTS No Results PROCEDURES Procedure Date Ordered Result Body Site LTD ORAL EVALUATION - PROBLEM FOCUS March 15, 2017 INTRAORL-PERIAPICAL 1 FILM 15055 March 15, 2017 EXTRAC ERUPTED TOOTH/EXPOSED ROOT March 15, 2017 EXTRAC ERUPTED TOOTH/EXPOSED ROOT March 15, 2017 EXTRAC ERUPTED TOOTH/EXPOSED ROOT March 15, 2017 INSTRUCTIONS MEDICATIONS ADMINISTERED No Known Medications [...]
--- OUTSIDE RECORDS SUMMARY | 2018-03-17 11:20 | XMS REPORT ---
Author Author 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 [facility] Address [address] [place] [address] Care Team Providers Care Spike Maker Name Role Phone 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 Unavailable PROBLEMS Type Condition ICD9-CM Code XYP94-XL Code Onset Dates Condition Status SNOMED Code Problem 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 Active 58346434 Problem Attention-deficit hyperactivity disorder, predominantly inattentive type F90.0 Active 13425129 Problem Obstructive sleep apnea G47.33 Active 64250321 Problem Primary insomnia F51.01 Active 8288332 Problem Neuralgia M79.2 Active 23877020 Problem Cannabis use disorder, mild, abuse F12.10 Active 79835542 Problem Folic acid deficiency E53.8 Active 120520598 Problem Restless legs G25.81 Active 71344498 Problem Major depressive disorder, recurrent, mild F33.0 Active 04309846 Problem Generalized anxiety disorder F41.1 Active 26383756 Problem Major depressive disorder, recurrent episode, moderate F33.1 Active 713525248 Problem Hypertension I10 Active 82429080 Problem Hyperlipidemia E78.5 Active 26837539 Problem Primary osteoarthritis of both knees M17.0 Active 961083023 Problem Chronic hepatitis K73.9 Active 06554553 Problem Low back pain M54.5 Active 155108963 Problem Chronic viral hepatitis B without delta-agent B18.1 Active 728815329 Problem Insomnia G47.00 Active 542167621 Problem Hypothyroid E03.9 Active 11452993 Problem Depression, major, recurrent, mild F33.0 Active 555257447 Problem Obesity due to excess calories, unspecified obesity severity E66.09 Active 461819838 ALLERGIES Substance Reaction Event Type Date Status Trazodone HCl "weird dreams" Drug Allergy Jul, Active ENCOUNTERS Encounter Location Date Diagnosis [facility] [id number], [place] [address] December, [facility] [id number] [place] [address] 16129- 5161 December, [facility] [id number] [place] [address] 05316- 2253 Dec, Bone pain M89.8X9 [facility] [id number] [place] [address] 76086- 6216 Dec, [facility] [address] 32170- 0962 Oct, [facility] [id number] [place] [address] 84538- 8763 Oct, Syncope, unspecified syncope type R55 ; Primary insomnia F51.01 ; Dry mouth R68.2 and Cannabis use disorder, mild, abuse F12.10 [facility] [id number] [place] [address] 15670- 9346 Oct, [facility] [address] 33743- 8831 Sep, [facility] [id number] [place] [address] 08809- 5711 Sep, [facility] [id number] [place] [address] 20646- 6619 Sep, [facility] [id number] [place] [address] [id number] Sep, Dental examination Z01.20 [facility] [id number] [place] [address] 17349- 9406 Sep, Dental examination Z01.20 [facility] [id number] [place] [address] 32057- 1465 Sep, Sinus congestion R09.81 ; Mouth sores K13.79 ; Low back pain M54.5 and Mouth swelling R22.0 [facility] [id number] [place] [address] 21962- 1052 Aug, Low back pain M54.5 [facility] [id number] [place] [address] 65342- 2771 Aug, Low back pain M54.5 [facility] [address] 69792- 3057 Jul, [facility] [address] 30169- 0815 Jul, 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 ; Encounter for immunization Z23 ; Hypothyroid E03.9 ; Decreased renal function N28.9 and Muscle cramps R25.2 [facility] [address] 00080- 3238 Jul, [facility] [address] 31626- 4560 15 Jul, 2017 [place] [facility] [address] 19172- 9487 Jul, [facility] [address] 24750- 7214 Jul, Major depressive disorder, recurrent, mild F33.0 [facility] [address] 31391- 6006 Jul, Acquired cyst of kidney N28.1 ; Acidosis E87.2 and Hyperkalemia E87.5 [facility] [address] 86180- 4896 Jul, Major depressive disorder, recurrent, mild F33.0 ; Attention -deficit hyperactivity disorder, predominantly inattentive type F90.0 and Generalized anxiety disorder F41.1 [facility] [id number] [place] [address] 55206- 6278 Jul, Low back pain M54.5 [facility] [address] 37850- 5916 Jun, Cough R05 ; Low back pain M54.5 and Pre-syncope R55 [facility] [facility] [address] 68941- 7146 Jun, Low back pain M54.5 [facility] [id number] [place] [address] [id number] Jun, Dental caries K02.9 [facility] [id number] [place] [address] 42355- 6581 Jun, [facility] [id number] [place] [address] 94346- 1947 Jun, Major depressive disorder, recurrent, mild F33.0 ; Attention -deficit hyperactivity disorder, predominantly inattentive type F90.0 and Generalized anxiety disorder F41.1 [facility] [id number] [place] [address] 19867- 8520 May, Vertigo R42 ; Confusion R41.0 ; Weakness R53.1 and Vision changes H53.9 [facility] [id number] [place] [address] 92766- 1052 May, [facility] [id number] [place] [address] 00808- 6212 May, [facility] [id number] [place] [address] 18670- 8266 May, Low back pain M54.5 [facility] [id number] [place] [address] 55607- 4960 05 May, 2017 Major depressive disorder, recurrent, mild F33.0 ; Attention -deficit hyperactivity disorder, predominantly inattentive type F90.0 and Generalized anxiety disorder F41.1 [facility] [id number] [place] [address] 33178- 5635 May, [facility] [id number] [place] [address] 10715- 6335 May, Acute worsening of stage 3 chronic kidney disease N18.3 [facility] [id number] [place] [address] 17715- 1887 Apr, [facility] [address] 27793- 6502 14 Apr, 2017 Acute allergic rhinitis due to pollen, unspecified seasonality J30.1 ; Restless legs G25.81 and Low back pain M54.5 [facility] [address] 68534- 5720 10 Apr, 2017 Primary osteoarthritis of both knees M17.0 [facility] [address] 04716- 4734 08 Apr, 2017 Generalized anxiety disorder F41.1 [facility] [address] 88868- 7591 07 Apr, 2017 Major depressive disorder, recurrent, mild F33.0 ; Attention -deficit hyperactivity disorder, predominantly inattentive type F90.0 and Generalized anxiety disorder F41.1 [place] [address] 42222- 9792 Apr, [place] [address] 48442- 0986 Mar, Major depressive disorder, recurrent episode, moderate F33.1 ; Generalized anxiety disorder F41.1 and ADHD, predominantly inattentive type F90.0 [facility] [address] 04691 -3563 Mar, Abscess L02.91 [place] [address] 78382- 5025 Mar, 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 [facility] [facility] [address] 06775- 2986 Mar, Decreased renal function N28.9 [facility] [address] [id number] Mar, Dental examination Z01.20 [facility] [address] 65482- 0476 Mar, 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 [facility] [address] 41427- 0895 Mar, 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 [facility] [id number] [id number] 14 Mar, 2017 Dental examination Z01.20 and Dental caries K02.9 [facility] [id number] [place] [address] 05840- 9932 Mar, Chronic viral hepatitis B without delta-agent B18.1 ; Folic acid deficiency E53.8 ; 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 and Decreased renal function N28.9 [facility] [id number] [place] [address] 34863- 8153 Mar, Major depressive disorder, recurrent, mild F33.0 [facility] [id number] [place] [address] 21559- 3002 Mar, [facility] [id number] [place] [address] 58380- 1941 Mar, Chronic hepatitis K73.9 ; 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 ; Localized edema R60.0 ; Illicit drug use F19.90 ; Vision changes H53.9 and Obesity due to excess calories, unspecified obesity severity E66.09 [facility] [id number] [place] [address] 90516- 5032 Jan, Major depressive disorder, recurrent, mild F33.0 [facility] [id number] [place] [address] 79845- 3238 Jan, Chronic viral hepatitis B without delta-agent B18.1 [facility] [id number] [place] [address] 43600- 7477 Jan, [facility] [id number] [place] [address] 78457- 5064 Jan, Weight gain R63.5 ; Hypothyroid E03.9 ; 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 ; Decreased renal function N28.9 and Chronic viral hepatitis B without delta-agent B18.1 [place] [id number] [place] [address] 16035- 4858 December, Major depressive disorder, recurrent, mild F33.0 and Generalized anxiety disorder F41.1 [facility] [id number] [place] [address] 26813- 9433 December, Obesity due to excess calories, unspecified obesity severity E66.09 and Folic acid deficiency E53.8 [place] [id number] [place] [address] 36980- 2033 December, Folic acid deficiency E53.8 [facility] [id number] [place] [address] 94491- 0927 December, Folic acid deficiency E53.8 [facility] [id number] [place] [address] 62944- 2302 December, Obesity due to excess calories, unspecified obesity severity E66.09 [facility] [id number] [place] [address] 87968- 5569 December, [facility] [id number] [place] [address] 86515- 8355 December, Folic acid deficiency E53.8 [facility] [id number] [place] [address] [id number] December, Encounter for other administrative examinations Z02.89 [facility] [id number] [place] [address] 92560- 7929 Dec, [facility] [id number] [place] [address] [id number] Dec, Dental caries K02.9 [facility] [id number] [place] [address] 91417- 3193 Oct, Bone pain M89.8X9 [facility] [address] 85504- 9497 Oct, Hypothyroid E03.9 [facility] [id number] [place] [address] 18009- 0747 Oct, Hypothyroid E03.9 [facility] [address] [place] [address]- 2194 13 Oct, 2016 Breast cancer screening Z12.39 [facility] [id number] [place] [address] [id number] 08 Oct, 2016 Dental examination Z01.20 [facility] [id number] [place] [address] 59669- 5507 02 Oct, 2016 [place] [address] 78553- 8490 28 Oct, 2016 Major depressive disorder, recurrent, mild F33.0 and Generalized anxiety disorder F41.1 [place] [facility] [address] 25479- 8133 Oct, [facility] [id number] [place] [address] 42201- 8333 Oct, Hypothyroid E03.9 [facility] [id number] [place] [address] 38543- 0039 Sep, Hypothyroid E03.9 ; Chronic viral hepatitis B without delta- agent B18.1 and Folic acid deficiency E53.8 [facility] [id number] [place] [address] 86431- 2390 Sep, Hypothyroidism, unspecified type E03.9 ; Elevated parathyroid hormone E34.9 and Chronic viral hepatitis B without delta-agent B18.1 [facility] [id number] [place] [address] 72882- 0838 Sep, [facility] [id number] [place] [address] 42779- 6144 Sep, Elevated parathyroid hormone E34.9 [facility] [id number] [place] [address] 43962- 5025 Sep, [facility] [id number] [place] [address] 41367- 5647 Sep, Chronic hepatitis K73.9 ; Bone pain M89.8X9 and Abnormal complete blood count R79.89 [facility] [id number] [place] [address] 54791- 5032 Aug, Major depressive disorder, recurrent, mild F33.0 [facility] [id number] [place] [address] 11351- 6414 Aug, Bone pain M89.8X9 [facility] [address] 55218- 0561 Aug, [facility] [address] 57355- 2977 Jul, Chronic viral hepatitis B without delta-agent B18.1 [place] [address] 21300- 1353 Jul, Hypothyroidism, unspecified type E03.9 [facility] [facility] [address] 01617- 3140 Jul, [facility] [id number] [place] [address] 46369- 0351 Jul, Chronic hepatitis K73.9 and Hypothyroid E03.9 [facility] [id number] [place] [address] 82841- 7171 Jul, Low back pain M54.5 [facility] [id number] [place] [address] 37533- 4524 31 Jun, 2016 Depression, major, recurrent, mild F33.0 and ADD (attention deficit disorder) F90.0 [facility] [id number] [place] [address] 46214- 5591 Jun, [facility] [id number] [place] [address] 39540- 9450 Jun, Low back pain M54.5 [facility] [id number] [place] [address] 85966- 9148 Jun, Encounter for immunization Z23 ; Major depressive disorder, recurrent, mild F33.0 and Attention-deficit hyperactivity disorder, predominantly inattentive type F90.0 [facility] [id number] [place] [address] 85418- 0329 Jun, [facility] [address] 57413- 6756 Jun, Low back pain M54.5 [facility] [address] 76073- 0026 May, [facility] [address] 95922- 7829 May, [facility] [id number] [place] [address] 21950- 1868 May, Essential (primary) hypertension I10 [facility] [id number] [place] [address] 25762- 4080 May, Low back pain M54.5 [facility] [address] 49958- 6133 May, Low back pain M54.5 ; Chronic hepatitis K73.9 and Hypothyroid E03.9 [facility] [address] 05406- 8510 09 May, 2016 Hypothyroidism, unspecified type E03.9 [facility] [id number] [place] [address] 16695- 8239 08 May, 2016 Low back pain M54.5 [facility] [id number] [place] [address] 99224- 4052 07 May, 2016 [facility] [id number] [place] [address] 37520- 0490 May, [facility] [address] 60399- 9421 May, Major depressive disorder, recurrent, moderate F33.1 ; Generalized anxiety disorder F41.1 ; Insomnia G47.00 and ADD (attention deficit disorder) F90.0 [facility] [id number] [place] [address] 04836- 1830 Apr, Low back pain M54.5 [facility] [id number] [place] [address] 22928- 6361 Apr, [facility] [id number] [place] [address] 15467- 8720 Apr, Low back pain M54.5 [facility] [id number] [place] [address] 28997- 0111 Apr, Low back pain M54.5 ; Tooth pain K08.8 and Seasonal allergic rhinitis due to pollen J30.1 [facility] [id number] [place] [address] 19054- 4532 Apr, Low back pain M54.5 [facility] [id number] [place] [address] 04461- 4156 Apr, LGSIL Pap smear of vagina R87.622 [facility] [facility] [id number] [place] [address] 96845- 0224 Apr, Low back pain M54.5 [facility] [id number] [place] [address] 88190- 4307 Mar, [facility] [id number] [place] [address] 30208- 5812 Mar, Low back pain M54.5 [facility] [id number] [place] [address] 70025- 8477 Mar, Encounter for Papanicolaou smear for cervical cancer screening Z12.4 ; Encounter for routine gynecological examination Z01.419 and Breast cancer screening Z12.39 [facility] [id number] [place] [address] 85046- 4483 18 Mar, 2016 Hypothyroidism, unspecified type E03.9 [facility] [id number] [place] [address] 13611- 7711 14 Mar, 2016 Low back pain M54.5 ; Other chronic pain G89.29 ; Hypothyroid E03.9 and Hypothyroidism, unspecified type E03.9 [facility] [address], [place] [address]- 3368 Mar, Major depressive disorder, recurrent, moderate F33.1 and Attention-deficit hyperactivity disorder, predominantly inattentive type F90.0 [facility] [address], [place] [address]80 Mar, Bronchitis J40 [facility] [id number] [place] [address] 51824- 6771 Jan, [facility] [id number] [place] [address] 52025- 3818 Jan, [facility] [id number] [place] [address] 13731- 4741 Jan, Insomnia G47.00 [facility] [id number] [place] [address] 39405- 0267 December, [facility] [id number] [place] [address] 66174- 1218 December, Major depressive disorder in partial remission F32.4 and Attention-deficit hyperactivity disorder, unspecified type F90.9 [facility] [id number] [place] [address] 12733- 9059 December, [facility] [id number] [place] [address] 18353- 1377 December, [facility] [id number] [place] [address] 67577- 9763 Dec, [facility] [id number] [place] [address] 81931- 1211 Dec, Major depressive disorder, recurrent episode, moderate 296.32 and Attention deficit disorder of childhood without mention of hyperactivity 314.00 [facility] [address], [place] [address]- 2140 Dec, Major depressive disorder, recurrent episode, mild 296.31 ; ADD (attention deficit disorder) F90.0 and Hyperlipidemia E78.5 [facility] [id number] [place] [address] 49351- 9748 Dec, Insomnia G47.00 [facility] [id number] [place] [address] 94244- 1510 Dec, Attention-deficit hyperactivity disorder, predominantly inattentive type F90.0 [facility] [id number] [place] [address] 29474- 8612 Oct, Restless legs syndrome G25.81 [facility] [id number] [place] [address] 26165- 6466 Oct, Hypothyroidism, unspecified type E03.9 [facility] [id number] [place] [address] 66211- 9159 Oct, [facility] [id number] [place] [address] 77720- 0671 16 Nov, 2015 [facility] [id number] [place] [address] 35854- 7588 15 Nov, 2015 Hypothyroid E03.9 and Chronic hepatitis K73.9 [facility] [id number] [place] [address] 38611- 2201 Oct, [facility] [id number] [place] [address] 58774- 9557 08 Nov, 2015 Restless legs syndrome G25.81 ; Chronic hepatitis K73.9 ; Hypertension I10 ; Hypothyroid E03.9 and Breast cancer screening Z12.39 [facility] [id number] [place] [address] 40771- 8114 Oct, [facility] [id number] [place] [address] 43207- 9596 Oct, [facility] [id number] [place] [address] 25057- 4595 Oct, [facility] [id number] [place] [address] 24677- 5524 Oct, [facility] [address] [place] [address]- 3388 Oct, [facility] [address] [place] [address]- 7610 Oct, [facility] [address], [place] [address]- 3478 Oct, [facility] [id number] [place] [address] 82936- 6062 Sep, [facility] [address], [place] [address]- 9550 Sep, Attention-deficit hyperactivity disorder, predominantly inattentive type F90.0 and Major depressive disorder in partial remission F32.4 [facility] [id number] [place] [address] 43025- 4801 Sep, [facility] [id number] [place] [address] 56927- 6986 Aug, [facility] [address] [place] [address]- 3551 Aug, [facility] [id number] [place] [address] 20528- 6097 Aug, Major depressive disorder, recurrent, mild F33.0 ; Attention -deficit hyperactivity disorder, unspecified type F90.9 and Generalized anxiety disorder F41.1 [facility] [address], [place] [address]- 7634 08 Aug, 2015 Chronic hepatitis K73.9 ; Primary osteoarthritis of both knees M17.0 and Neuralgia M79.2 [facility] [address], [place] [address]- 8854 Jul, [facility] [address], [place] [address]- 6589 Jul, [facility] [address], [place] [address]- 6421 Jul, [facility] [id number] [place] [id number] Jul, [facility] [id number] [place] [id number]- [id number] Jun, [facility] [id number] [place] [id number]- [phone] Jun, Bronchitis J40 and Encounter for immunization Z23 [facility] [address] [address] 30 May, 2015 [facility] [address] [address] 12 May, 2015 [facility] [id number] [place] [id number]- [address] 10 May, 2015 [facility] [address] [address] 10 May, 2015 Hypokalemia 276.8 [facility] [id number] [place] [id number]- [id number] 08 May, 2015 Major depressive disorder, recurrent episode, mild 296.31 ; Attention deficit disorder of childhood without mention of hyperactivity 314.00 and Generalized anxiety disorder 300.02 [facility] [id number] [place] [address]- [address] 03 May, 2015 Hypertension 401.9 and Hypokalemia 276.8 [facility] [id number] [place] [address] [address] May, [facility] [id number] [place] [address] 29972- 4146 Apr, [facility] [id number] [place] [address] 93884- 5217 Apr, [facility] [id number] [place] [address] 21748- 7767 Apr, [facility] [id number] [place] [address] 40713- 5288 Apr, [facility] [address], [place] [address] 0362 Mar, [facility] [id number] [place] [address] [id number]- 2312 Mar, [facility] [id number] [place] [address] 18959- 3668 Mar, [facility] [id number] [place] [address] 29815- 9811 Mar, [facility] [id number] [place] [address] 57333- 3216 Mar, Arthritis of both knees 716.96 ; Hepatitis B 070.30 ; Hypertension 401.9 ; Carpal tunnel syndrome 354.0 and Cubital tunnel syndrome 354.2 [facility] [id number] [place] [address] 33319- 7853 Mar, [facility] [id number] [place] [address] 62326- 4214 Mar, [facility] [id number] [place] [address] 66589- 7676 Mar, 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, chronic, without mention of hepatitis delta 070.32 ; Chronic hepatitis C without mention of hepatic coma 070.54 and Major depressive disorder, recurrent episode, moderate 296.32 [facility] [id number] [place] [address] 44201- 6899 Jan, [facility] [id number] [address] 9005 Jan, Major depressive disorder, recurrent episode, mild 296.31 and Attention deficit disorder of childhood without mention of hyperactivity 314.00 [facility] [address], [place] [address] 1964 Jan, [facility] [id number] [place] [address] 61861- 8019 Jan, [facility] [id number] [address] 9236 December, Attention deficit disorder of childhood without mention of hyperactivity 314.00 ; Major depressive disorder, recurrent episode, mild 296.31 and Generalized anxiety disorder 300.02 [facility] [address], [place] [address]- 0486 December, [facility] [id number] [address] 1464 14 Dec, 2014 [facility] [id number] [address] 4760 Dec, [facility] [address], [place] [address]- 5294 19 Oct, 2014 [facility] [address] 0780 19 Oct, 2014 [facility] [address] [place] [address]- 3576 18 Oct, 2014 [facility] [address], [place] [address]- 2025 18 Oct, 2014 [facility] [address], [place] [address]- 6109 18 Oct, 2014 [facility] [address], [place] [address]- 1212 18 Oct, 2014 [facility] [address], [place] [address]- 5669 16 Oct, 2014 [facility] [address] 0628 13 Oct, 2014 [facility] [address], [place] [address]- 6332 13 Oct, 2014 [facility] [id number] [address]- 0512 12 Oct, 2014 [facility] [address], [place] [address]- 7139 Oct, [facility] [place] [facility] [address] [id number] [place] [address]- 9392 Oct, [facility] [place] [facility] [address] [facility] [id number] [place] [address]- 7476 Oct, 2014 [facility] [place] [facility] [address] [facility] [id number] [place] [address]- 0850 Oct, 2014 [facility] [place] [facility] [address] [facility] [id number] [place] [address]- 6640 05 Oct, 2014 [facility] [place] [facility] [address] [facility] [id number] [place] [address]- 1750 Oct, 2014 [facility] [place] [facility] [address] [facility] [id number] [place] [address]- 6072 Oct, 2014 [facility] [place] [facility] [address] [facility] [id number] [place] [address]- 6324 25 Oct, 2014 [facility] [place] [facility] [address] [facility] [id number] [place] [address]- 1278 19 Oct, 2014 [facility] [place] [facility] [address] [facility] [id number] [place] [address]- 5683 18 Oct, 2014 [facility] [place] [facility] [address] [facility] [id number] [place] [address]- 5664 17 Oct, 2014 [facility] [place] [facility] [address] [facility] [id number] [place] [address]- 0412 17 Oct, 2014 [facility] [place] [facility] [address] [facility] [id number] [place] [address]- 2709 11 Oct, 2014 [facility] [place] [facility] [address] [facility] [id number] [place] [address]- 2916 Oct, 2014 [facility] [place] [facility] [address] [facility] [id number] [place] [address]- 5299 Oct, 2014 [facility] [place] [facility] [address] [facility] [id number] [place] [address]- 8641 Oct, [facility] [place] [facility] [address] [id number] [place] [address]- 7693 Oct, [facility] [place] [facility] [address] [id number] [place] [address]- 6413 Oct, [facility] [place] [facility] [address] [id number] [place] [address]- 5539 Sep, [facility] [place] [facility] [address] [id number] [place] [address]- 5575 Sep, [facility] [place] [facility] [address] [id number] [place] [address]- 1553 Sep, [facility] [place] [facility] [address] [id number] [place] [address]- 1787 Sep, [facility] [place] [facility] [address] [id number] [place] [address]- 1442 Sep, [facility] [place] [facility] [address] [id number] [place] [address]- 4685 Sep, [facility] [place] [facility] [address] [id number] [place] [address]- 9282 Sep, [facility] [place] [facility] [address] [id number] [place] [address]- 6933 Sep, [facility] [place] [facility] [address] [id number], [place] [address]- 4107 Sep, [facility] [place] [facility] [address] [id number], [place] [address]- 9940 Sep, [facility] [place] [facility] [address] [id number] [place] [address]- 4171 Sep, [facility] [place] [facility] [address] [id number] [place] [address]- 8068 Sep, [facility] [place] [facility] [address] [id number] [place] [address]- 9715 Sep, [facility] [place] [facility] [address] [id number] [place] [address]- 5397 Sep, [facility] [address] [id number] [place] [address]- 6215 Sep, [facility] [place] [facility] [address] [id number] [place] 3776 Sep, [facility] [address] [id number] [place] [address]- 0574 Aug, [facility] [place] [facility] [address] [id number] [place] [address]- 7359 Aug, [facility] [place] [facility] [address] [id number] [place] [address]- 1564 Aug, [facility] [place] [facility] [address] [id number] [place] [address]- 0960 Aug, [facility] [address] [id number] [place] [address]- 4910 Aug, [facility] [place] [facility] [address] [id number] [place] [address]- 2784 Aug, [facility] [place] [facility] [address] [id number] [place] [address]- 8404 Aug, [facility] [place] [facility] [address] [id number] [place] [address]- 9708 Aug, [facility] [place] [facility] [address] [id number] [place] [address]- 6991 19 Aug, 2014 [facility] [place] [facility] [address] [id number] [place] [address]- 9176 18 Aug, 2014 [facility] [place] [facility] [address] [id number] [place] [address]- 9032 18 Aug, 2014 [facility] [place] [facility] [address] [id number] [place] [address]- 5651 16 Aug, 2014 [facility] [place] [facility] [address] [id number] [place] 4449 16 Aug, 2014 [facility] [place] [facility] [address] [id number] [place] [address]- 6826 15 Aug, 2014 [facility] [place] [facility] [address] [id number] [place] [address]- 6763 Aug, [facility] [place] [facility] [address] [id number] [place] [address]- 0744 Aug, [facility] [place] [facility] [address] [id number] [place] [address]- 8615 Aug, [facility] [place] [facility] [address] [id number] [place] [address]- 5490 Aug, [facility] [place] [facility] [address] [id number] [place] [address]- 9670 Aug, [facility] [place] [facility] [address] [id number] [place] [address]- 2646 Aug, [facility] [place] [facility] [address] [id number] [place] [address]- 2388 Aug, [facility] [place] [facility] [address] [id number] [place] [address]- 1977 Aug, [facility] [place] [facility] [address] [id number] [place] [address]- 6450 Aug, [facility] [place] [facility] [address] [id number] [place] [address]- 8597 Aug, [facility] [place] [facility] [address] [id number] [place] [address]- 1003 Aug, [facility] [place] [facility] [address] [id number] [place] [address]- 5619 Jul, [facility] [place] [facility] [address] [id number] [place] [address]- 7153 Jul, [facility] [place] [facility] [address] [id number] [place] [address]- 1684 Jul, [facility] [place] [facility] [address] [id number], [place] [address]- 8950 Jul, [facility] [place] [facility] [address] [id number] [place] [address]- 4517 Jul, [facility] [place] [facility] [address] [id number] [place] 4601 Jul, [facility] [place] [facility] [address] [id number] [place] [address]- 4738 Jun, [facility] [place] [facility] [address] [id number] [place] [address]- 2904 Jun, [facility] [place] [facility] [address] [id number] [place] [address]- 1221 Jun, [facility] [place] [facility] [address] [id number] [place] [address]- 7408 Jun, [facility] [place] [facility] [address] [id number] [place] [address]- 6203 Jun, [facility] [place] [facility] [address] [id number] [place] [address]- 0421 Jun, [facility] [place] [facility] [address] [id number] [place] [address]- 4407 Jun, [facility] [place] [facility] [address] [id number] [place] [address]- 0315 Jun, [facility] [place] [facility] [address] [id number], [place] [address]- 8509 16 May, 2014 [facility] [place] [facility] [address] [id number], [place] [address]- 7938 16 May, 2014 [facility] [place] [facility] [address] [id number] [place] [address]- 2706 15 May, 2014 [facility] [place] [facility] [address] [id number] [place] [address]- 9696 15 May, 2014 [facility] [place] [facility] [address] [id number] [place] [address]- 8348 08 May, 2014 [facility] [place] [facility] [address] [id number] [place] [address]- 6146 08 May, 2013 [facility] [place] [facility] [address] [id number] [place] [address]- 2024 May, [facility] [place] [facility] [address] [id number] [place] [address]- 2316 May, [facility] [place] [facility] [address] [id number] [place] [address]- 3006 Apr, [facility] [place] [facility] [address] [id number] [place] [address]- 1130 Apr, [facility] [place] [facility] [address] [id number] [place] [address]- 6222 Apr, [facility] [place] [facility] [address] [id number] [place] [address]- 9412 Apr, [facility] [place] [facility] [address] [id number] [place] [address]- 4449 Apr, [facility] [place] [facility] [address] [id number] [place] [address]- 6179 Apr, [facility] [place] [facility] [address] [id number] [place] [address]- 5829 Apr, [facility] [place] [facility] [address] [id number] [place] [address]- 5749 Apr, [facility] [place] [facility] [address] [id number] [place] [address]- 2548 Apr, [facility] [place] [facility] [address] [id number] [place] [address]- 2804 Apr, [facility] [place] [facility] [address] [id number] [place] [address]- 2161 Apr, [facility] [place] [facility] [address] [id number] [place] [address]- 4015 Apr, [facility] [place] [facility] [address] [id number] [place] [address]- 1095 Apr, [facility] [place] [facility] [address] [id number] [place] [address]- 3173 Mar, [facility] [place] [facility] [address] [id number] [place] [address]- 3231 Mar, [facility] [place] [facility] [address] [id number] [place] [address]- 7617 Mar, [facility] [place] [facility] [address] [id number] [place] [address]- 7090 Mar, [facility] [place] [facility] [address] [id number] [place] [address]- 1220 Jan, [facility] [place] [facility] [address] [id number] [place] [address]- 3156 Jan, [facility] [place] [facility] [address] [id number] [place] [address]- 4713 December, [facility] [place] [facility] [address] [id number] [place] [address]- 1139 December, [facility] [place] [facility] [address] [id number] [place] [address]- 2590 December, [facility] [place] [facility] [address] [id number] [place] [address]- 6503 December, [facility] [place] [facility] [address] [id number] [place] [address]- 2909 December, [facility] [place] [facility] [address] [id number] [place] [address]- 3706 December, [facility] [place] [facility] [address] [id number] [place] [address]- 7433 December, [facility] [place] [facility] [address] [id number] [place] [address]- 3326 December, [facility] [place] [facility] [address] [id number] [place] [address]- 7703 Dec, [facility] [place] [facility] [address] [id number] [place] [address]- 7497 Dec, [facility] [place] [facility] [address] [id number] [place] [address]- 4834 Dec, [facility] [place] [facility] [address] [id number] [place] [address]- 5268 Dec, [facility] [place] [facility] [address] [facility] [id number] [place] [address]- 1947 Oct, [facility] [place] [facility] [address] [id number] [place] [address]- 1897 Oct, [facility] [place] [facility] [address] [id number] [place] [address]- 5501 Oct, [facility] [place] [facility] [address] [facility] [id number] [place] [address]- 6200 Oct, [facility] [place] [facility] [address] [facility] [id number] [place] [address]- 9209 Oct, [facility] [place] [facility] [address] [facility] [id number] [place] [address]- 3354 Oct, [facility] [place] [facility] [address] [facility] [id number] [place] [address]- 2549 Oct, [facility] [place] [facility] [address] [facility] [id number] [place] [address]- 4207 Oct, [facility] [place] [facility] [address] [id number] [place] [address]- 1580 Oct, [facility] [place] [facility] [address] [id number] [place] [address]- 7446 Oct, [facility] [place] [facility] [address] [id number] [place] [address]- 7078 Oct, [facility] [place] [facility] [address] [id number] [place] [address]- 2263 Oct, [facility] [place] [facility] [address] [facility] [id number] [place] [address]- 9154 Oct, [facility] [place] [facility] [address] [id number] [place] [address]- 8743 Oct, 2013 [facility] [place] [facility] [address] [id number] [place] [address]- 8696 Oct, [facility] [place] [facility] [address] [id number] [place] [address]- 9686 Oct, [facility] [place] [facility] [address] [id number] [place] [address]- 3396 Oct, 2013 [facility] [place] [facility] [address] [id number] [place] [address]- 9682 Oct, [facility] [place] [facility] [address] [id number] [place] [address]- 4845 Oct, [facility] [place] [facility] [address] [id number] [place] [address]- 2184 Oct, [facility] [place] [facility] [address] [id number] [place] [address]- 8682 Oct, [facility] [place] [facility] [address] [id number] [place] [address]- 3341 Oct, [facility] [place] [facility] [address] [id number] [place] [address]- 2182 Sep, [facility] [place] [facility] [address] [id number] [place] [address]- 4286 Sep, [facility] [place] [facility] [address] [id number] [place] [address]- 9610 Sep, [facility] [place] [facility] [address] [id number] [place] [address]- 2660 Sep, [facility] [place] [facility] [address] [id number] [place] [address]- 2792 Aug, [facility] [place] [facility] [address] [id number] [place] [address]- 8346 Aug, [facility] [place] [facility] [address] [id number] [place] [address]- 0563 Aug, [facility] [address] [id number] [place] [address]- 9686 Aug, [facility] [place] [facility] [address] [id number] [place] [address]- 4346 Aug, [facility] [address] [id number] [place] [address]- 8921 Aug, [facility] [place] [facility] [address] [id number] [place] [address]- 5934 Aug, [facility] [address] [id number] [place] [address]- 0427 Aug, [facility] [place] [facility] [address] [id number] [place] [address]- 3106 Aug, [facility] [address] [id number] [place] [address]- 5008 Jul, [facility] [place] [facility] [address] [id number] [place] [address]- 8128 Jul, [facility] [place] [facility] [address] [id number] [place] [address]- 7656 Jul[facility] [place] [facility] [address] [facility] [id number] [place] [address]- 0769 Jul, [facility] [place] [facility] [address] [id number] [place] [address]- 4531 Jul, [facility] [place] [facility] [address] [id number] [place] [address]- 3885 Jul, [facility] [place] [facility] [address] [id number] [place] [address]- 1698 Jul, [facility] [place] [facility] [address] [id number] [place] [address]- 7573 Jul, [facility] [place] [facility] [address] [id number] [place] [address] Jun, [facility] [place] [facility] [address] [id number] [place] [address] Jun, [facility] [place] [facility] [address] [id number] [place] [address] Jun, [facility] [place] [facility] [address] [id number] [place] [address] Jun, [facility] [place] [facility] [address] [id number] [place] [address] Jun, [facility] [address] [id number] [place] [address] Jun, [facility] [place] [facility] [address] [id number] [place] [address] Jun, [facility] [place] [facility] [address] [id number] [place] [address] Jun, [facility] [place] [facility] [address] [id number] [place] [address] 30 May, 2013 [facility] [place] [facility] [address] [id number] [place] [address] 26 May, 2013 [facility] [place] [facility] [address] [id number] [place] [address] 23 May, 2013 [facility] [place] [facility] [address] [id number] [place] [address] 19 May, 2013 [facility] [place] [facility] [address] [id number], [place] [address] 12 May, 2013 [facility] [place] [facility] [address] [id number] [place] [address] 11 May, 2013 [facility] [place] [facility] [address] [id number] [place] [address]- [address] Apr, [facility] [place] [facility] [address] [id number] [place] [address] Apr, [facility] [place] [facility] [address] [id number] [place] [address] Apr, [facility] [place] [facility] [address] [id number] [place] [address] Apr, [facility] [place] [facility] [address] [id number] [place] [address] Apr, [facility] [place] [facility] [address] [id number] [place] [address] 3467 Apr, [facility] [place] [facility] [address] [id number] [place] [address] Apr, [facility] [place] [facility] [address] [id number] [place] [address] 2982 Mar, [facility] [place] [facility] [address] [id number] [place] [address] Mar, [facility] [place] [facility] [address] [id number] [place] [address]- 1446 Mar, [facility] [place] [facility] [address] [id number] [place] [address]136 Mar, [facility] [place] [facility] [address] [id number] [place] [address] 9[address] Mar, [facility] [place] [facility] [address] [id number] [place] [address] 45[address] Mar, [facility] [place] [facility] [address] [id number] [place] [address] 8067 Mar, [facility] [place] [facility] [address] [id number] [place] [address] Jan, [facility] [place] [facility] [address] [id number] [place] [address] 18[address] Jan, [facility] [place] [facility] [address] [id number] [place] [address] Jan, [facility] [place] [facility] [address] [id number] [place] [address] Jan, [facility] [place] [facility] [address] [id number] [place] [address] 12 Jan, 2013 [facility] [address] [id number] [place] [address] Jan, [facility] [address] [id number] [place] [address] Jan, [facility] [address] [id number] [place] [address] December, [facility] [address] [id number] [place] [address] 160[address] December, [facility] [address] [id number] [place] [address] December, [facility] [address] [id number] [place] [address] 1636 December, [facility] [address] [id number] [place] [address] 30 Dec, 2012 [facility] [address] [id number] [place] [address] 29 Dec, 2012 [facility] [address] [id number] [place] [address] 6460 Dec, [facility] [address] [id number] [place] [address] 29 Oct, 2012 [facility] [address] [id number] [place] [address]- 0857 Oct, [facility] [address] [id number] [place] [address] Oct, [facility] [address] [id number] [place] [address] 7580 Oct, [facility] [address] [id number] [place] [address] 6[address] Oct, [facility] [address] [id number] [place] [address] 8198 Oct, [facility] [address] [id number] [place] [address]- 0571 Oct, [facility] [place] [facility] [address] [id number] [place] [address]- 3434 Oct, [facility] [place] [facility] [address] [id number] [place] [address]- [address]396 Oct, [facility] [place] [facility] [address] [id number] [place] [address]- 0414 Oct, [facility] [place] [facility] [address] [id number] [place] [address]- 8517 Oct, [facility] [place] [facility] [address] [id number] [place] [address] 5716 Sep, [facility] [place] [facility] [address] [id number] [place] [address]- 8716 Sep, [facility] [place] [facility] [address] [id number] [place] [address]- 4078 Sep, [facility] [place] [facility] [address] [id number] [place] [address]- [address]55 Aug, [facility] [place] [facility] [address] [id number] [place] [address] Aug, [facility] [place] [facility] [address] [id number] [place] [address] Aug, [facility] [place] [facility] [address] [id number], [place] [address] Aug, [facility] [place] [facility] [address] [id number] [place] [address] Jul, [facility] [place] [facility] [address] [id number] [place] [address] Jul, [facility] [place] [facility] [address] [facility] [id number] [place] [address]756 Jul, [facility] [place] [facility] [address] [id number] [place] [address] Jul, [facility] [place] [facility] [address] [id number] [place] [address] Jul, [facility] [place] [facility] [address] [id number] [place] [address] Jul, [facility] [place] [facility] [address] [id number] [place] [address] 1152 Jul, [facility] [place] [facility] [address] [id number] [place] [address]70 Jul, [facility] [place] [facility] [address] [id number] [place] [address] Jun, [facility] [place] [facility] [address] [id number] [place] [address] Jun, [facility] [place] [facility] [address] [id number] [place] [address] Jun, [facility] [place] [facility] [address] [id number] [place] [address] 8224 Jun, [facility] [place] [facility] [address] [id number] [place] [address]883 Jun, [facility] [place] [facility] [address] [facility] [id number] [place] [address]25 26 May, 2012 [facility] [place] [facility] [address] [id number] [place] [address]46 20 May, 2012 [facility] [place] [facility] [address] [id number] [place] [address]- 6935 18 Sep2011 [facility] [place] [facility] [address] [id number] [place] [address] 09 May, 2012 [facility] [place] [facility] [address] [facility] [id number] [place] [address] 1406 04 May, 2012 [facility] [place] [facility] [address] [id number] [place] [address] Apr, [facility] [place] [facility] [address] [id number] [place] [address] 9434 Apr, [facility] [place] [facility] [address] [id number] [place] [address]- 9565 Apr, [facility] [place] [facility] [address] [id number] [place] [address] Apr, [facility] [place] [facility] [address] [id number] [place] [address]- [address]26 Apr, [facility] [place] [facility] [address] [id number] [place] [address] Apr, [facility] [place] [facility] [address] [id number] [place] [address] 6979 Apr, [facility] [place] [facility] [address] [id number] [place] [address] Mar, [facility] [place] [facility] [address] [id number] [place] [address] 1301 Mar, [facility] [place] [facility] [address] [id number] [place] [address] 26[address] Mar, [facility] [place] [facility] [address] [id number] [place] [address] 6179 Mar, [facility] [place] [facility] [address] [id number] [place] [address]- 0929 Jan, [facility] [place] [facility] [address] [id number] [place] [address] Jan, [facility] [place] [facility] [address] [id number] [place] [address]807 Jan, [facility] [place] [facility] [address] [id number] [place] [address] 97[address] Jan, [facility] [place] [facility] [address] [id number] [place] [address]137 Jan, [facility] [place] [facility] [address] [id number] [place] [address]- 3462 Jan, [facility] [place] [facility] [address] [id number] [place] [address] 3204 December, [facility] [place] [facility] [address] [id number] [place] [address] 3916 December, [facility] [place] [facility] [address] [id number] [place] [address]- 7756 December, [facility] [place] [facility] [address] [id number] [place] [address] 5261 December, [facility] [place] [facility] [address] [id number] [place] [address] Dec, [facility] [place] [facility] [address] [id number] [place] [address] Dec, [facility] [place] [facility] [address] [id number] [place] [address] 6844 Oct, [facility] [place] [facility] [address] [id number] [place] [address] 1252 Oct, [facility] [place] [facility] [address] [id number] [place] [address]- 9723 Oct, [facility] [place] [facility] [address] [id number] [place] [address]- 0787 Oct, [facility] [place] [facility] [address] [id number] [place] [address]- 0653 Oct, [facility] [place] [facility] [address] [id number] [place] [address]- 9736 Oct, [facility] [place] [facility] [address] [id number] [place] [address]- 7279 Oct, [facility] [place] [facility] [address] [id number] [place] [address]- 4604 Oct, [facility] [place] [facility] [address] [id number] [place] [address]- 9246 Oct, [facility] [place] [facility] [address] [id number] [place] [address]- 6563 Oct, [facility] [address] [id number] [place] [address] 7009 Oct, [facility] [place] [facility] [address] [id number] [place] [address]- 5126 Sep, [facility] [address] [id number] [place] [address]- 6333 Sep, [facility] [place] [facility] [address] [id number] [place] [address]- 7546 Sep, [facility] [place] [facility] [address] [id number] [place] [address] 3738 Sep, [facility] [address] [id number] [place] [address]- 4351 Sep, [facility] [address] [id number] [place] [address]- 6512 Sep, [facility] [address] [id number] [place] [address]- 8959 Sep, [facility] [address] [id number] [place] [address]- 5775 Sep, [facility] [address] [id number] [place] [address]- 1810 Aug, [facility] [place] [facility] [address] [id number] [place] [address]- 5702 Aug, [facility] [place] [facility] [address] [id number] [place] [address]- 7429 Aug, [facility] [place] [facility] [address] [id number] [place] [address]- 4399 Jul, [facility] [place] [facility] [address] [id number] [place] [address]- 7716 Jul, [facility] [place] [facility] [address] [id number] [place] [address]- 1140 Jul, [facility] [place] [facility] [address] [id number] [place] [address]- 1455 17 Jul, 2011 [facility] [place] [facility] [address] [id number] [place] [address]- 6984 08 Jul, 2011 [facility] [place] [facility] [address] [id number] [place] [address] Jul, [facility] [place] [facility] [address] [id number] [place] [address]- 9467 Jun, [facility] [place] [facility] [address] [id number] [place] [address]- 4490 Jun, [facility] [place] [facility] [address] [id number] [place] [address]- 0275 Mar, [facility] [place] [facility] [address] [id number] [place] [address]- 2569 14 Dec, 2010 [facility] [place] [facility] [address] [id number] [place] [address]- 3734 14 Oct, 2010 [facility] [place] [facility] [address] [id number] [place] [address]- 7367 Aug, [facility] [place] [facility] [address] [id number] [place] [address]- 4234 30 Jul, 2010 [facility] [place] [facility] [address] [id number], [place] [address]- 2468 Jul, [facility] [place] [facility] [address] [id number], [place] [address] 8[address] Jul, [facility] [place] [facility] [address] [id number] [place] [address]- 8001 Jul, [facility] [place] [facility] [address] [id number], [place] [address] 08 Jul, 2010 [facility] [place] [facility] [address] [id number] [place] [address]- 8408 Aug, [facility] [place] [facility] [id number], [place] [address] 15 Aug, 2009 [facility] [id number], [place] [address] 14 Aug, 2009 [facility] [id number], [place] [address] Aug, [facility] [id number], [place] [address]- 1352 Jul, [facility] [id number], [place] [address]- [address]700 Jul, [facility] [id number] [place] [address]100 Jul, [facility] [id number], [place] [address]- 4[address] Jul, [facility] [id number], [place] [address]- 3980 Jun, [facility] [address], [place] [address]- 7986 Jun, IMMUNIZATIONS Vaccine Route Administration Date Status FLUARIX QUAD (3 AND UP) 2017 IM Intramuscular Jul 24, 2017 Administered SOCIAL HISTORY Never Assessed REASON FOR VISIT hyperinsulin/pain management--Mando Fernando MA PLAN OF CARE Activity Details Follow Up 2 Months Reason:muscle cramps VITAL SIGNS Height 64 in 2017-07-24 Weight 211.4 lbs 2017-07-24 Temperature 98.5 degrees Fahrenheit 2017-07-24 Heart Rate 60 bpm 2017-07-24 Respiratory Rate 2017-07-24 BMI 36.28 kg/m2 2017-07-24 Blood pressure systolic 142 mmHg 2017-07-24 Blood pressure diastolic 98 mmHg 2017-07-24 MEDICATIONS Medication Instructions Dosage Frequency Start Date End Date Duration Status Levothyroxine Sodium 100 MCG Orally Once a day 1 tablet 24h 30 Active Toprol XL 100 MG Orally Once a day 1 tablet at bedtime 24h 90 Active Baclofen 20 mg Orally 2 times a day 1 tablet with food or milk 12h Jul, Sep, 30 day(s) Active Folic Acid 1 MG Orally Once a day 1 tablet 24h 10 Dec, 2016 5 May, 2018 90 days Active Requip 1 MG Orally 3 times a day 1 tablet 8h 90 days Active Pantoprazole Sodium 40 MG Orally Once a day 1 tablet 24h 90 Active Hydrocodone-Acetaminophen 7.5-325 MG Orally 2 times a day 1 tablet as needed 12h Jun, 28 days Not-Taking Pravastatin Sodium 80 MG TAKE ONE TABLET BY MOUTH AT BEDTIME (AVOID GRAPEFRUIT JUICE AND PRODUCTS WITH GRAPEFRUIT) 90 Active Doxepin HCl 25 MG Orally Once a day 1-2 capsules at bedtime 24h 30 days Active Loratadine 10 mg Orally Once a day as needed for allergies 1 tablet Apr, Active Cyclobenzaprine HCl 10 mg Orally 2 times a day prn back pain 1 tablet as needed Oct, 10 Not-Taking Fish Oil 1000 MG Orally 3 times a day 1 capsule 8h Active Lidocaine 5 % Externally 4 times a day Apply 2 grams to affected area as needed 6h Apr, 90 days Active Lisinopril 5 MG Orally Once a day 1 tablet 24h Active Effexor XR 150 MG Orally Once a day 2 capsule with food 24h Active Ventolin HFA 108 (90 Base) MCG/ACT Inhalation every 6 hrs 2 puffs as needed 6h Jun, Not-Taking RESULTS No Results PROCEDURES Procedure Date Ordered Result Body Site LAB NOT BILLED BY [facility] Jul 24, 2017 [facility] VISIT ESTABLISHED PATIENT Jul 24, 2017 FLUARIX QUAD (3 AND UP) 2017 Jul 24, 2017 VENIPUNCT, ROUTINE* Jul 24, 2017 SINGLE IMMUNIZATION ADMIN Jul 24, 2017 INSTRUCTIONS MEDICATIONS ADMINISTERED No Known Medications [...]
--- OUTSIDE RECORDS SUMMARY | 2018-03-17 11:21 | XMS REPORT ---
Author Author 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 [facility] Address [address] [place] [address] Care Team Providers Care Quality Cloth Tester Name Role Phone 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 Unavailable PROBLEMS Type Condition ICD9-CM Code [id number] Code Onset Dates Condition Status SNOMED Code Problem 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 Active 04249133 Problem Attention-deficit hyperactivity disorder, predominantly inattentive type F90.0 Active 87303942 Problem Obstructive sleep apnea G47.33 Active 70740927 Problem Primary insomnia F51.01 Active 1712942 Problem Neuralgia M79.2 Active 02313941 Problem Cannabis use disorder, mild, abuse F12.10 Active 37079378 Problem Folic acid deficiency E53.8 Active 056423265 Problem Restless legs G25.81 Active 18483388 Problem Major depressive disorder, recurrent, mild F33.0 Active 31006147 Problem Generalized anxiety disorder F41.1 Active 50154805 Problem Major depressive disorder, recurrent episode, moderate F33.1 Active 047579686 Problem Hypertension I10 Active 47645085 Problem Hyperlipidemia E78.5 Active 84387445 Problem Primary osteoarthritis of both knees M17.0 Active 469935383 Problem Chronic hepatitis K73.9 Active 43865826 Problem Low back pain M54.5 Active 997725758 Problem Chronic viral hepatitis B without delta-agent B18.1 Active 233809962 Problem Insomnia G47.00 Active 257964445 Problem Hypothyroid E03.9 Active 40297486 Problem Depression, major, recurrent, mild F33.0 Active 527502172 Problem Obesity due to excess calories, unspecified obesity severity E66.09 Active 472420511 ALLERGIES No Information ENCOUNTERS Encounter Location Date Diagnosis [facility] [address] [facility] [id number] [address] December, [facility] [address] [facility] [id number], [place] [address] Dec, [facility] [id number] [place] [address] 75570- 0515 Dec, [facility] [address] 96328- 3222 Oct, [facility] [id number] [place] [address] 60640- 3834 Oct, Syncope, unspecified syncope type R55 ; Primary insomnia F51.01 ; Dry mouth R68.2 and Cannabis use disorder, mild, abuse F12.10 [facility] [id number] [place] [address] 30391- 7080 Oct, [facility] [address] 37668- 7502 Sep, [facility] [id number] [place] [address] 06886- 3568 Sep, [facility] [id number] [place] [address] 24637- 4818 Sep, [facility] [id number] [place] [address] [id number] Sep, Dental examination Z01.20 [facility] [id number] [place] [address] 44188- 5921 Sep, Dental examination Z01.20 [facility] [id number] [place] [address] 61105- 6271 Sep, Sinus congestion R09.81 ; Mouth sores K13.79 ; Low back pain M54.5 and Mouth swelling R22.0 [facility] [id number] [place] [address] 10432- 2694 Aug, Low back pain M54.5 [facility] [id number] [place] [address] 94702- 6137 Aug, Low back pain M54.5 [facility] [id number] [place] [address] 73994- 1691 Jul, [facility] [address] 80271- 5666 Jul, 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 ; Encounter for immunization Z23 ; Hypothyroid E03.9 ; Decreased renal function N28.9 and Muscle cramps R25.2 [facility] [address] 30190- 4685 Jul, [facility] [address] 33749- 8556 Jul, [facility] [address] 62609- 9295 Jul, [facility] [address] 67220- 5613 Jul, Major depressive disorder, recurrent, mild F33.0 [facility] [address] 41397- 8220 Jul, Acquired cyst of kidney N28.1 ; Acidosis E87.2 and Hyperkalemia E87.5 [facility] [address] 46166- 0871 Jul, Major depressive disorder, recurrent, mild F33.0 ; Attention -deficit hyperactivity disorder, predominantly inattentive type F90.0 and Generalized anxiety disorder F41.1 [facility] [address] 69828- 3369 Jul, Low back pain M54.5 [facility] [address] 92113- 2433 Jun, Cough R05 ; Low back pain M54.5 and Pre-syncope R55 [facility] [address] 59923- 8213 Jun, Low back pain M54.5 [facility] [address] [id number] Jun, Dental caries K02.9 [facility] [id number] [place] [address] 31221- 4538 Jun, [facility] [address] 631798- 1468 Jun, Major depressive disorder, recurrent, mild F33.0 ; Attention -deficit hyperactivity disorder, predominantly inattentive type F90.0 and Generalized anxiety disorder F41.1 [facility] [address] 35826- 4474 May, Vertigo R42 ; Confusion R41.0 ; Weakness R53.1 and Vision changes H53.9 [facility] [address] 53397- 7076 May, [facility] [address] 38586- 1242 May, [facility] [address] 83435- 9085 May, Low back pain M54.5 [facility] [id number] [place] [address] 17304- 9999 05 May, 2017 Major depressive disorder, recurrent, mild F33.0 ; Attention -deficit hyperactivity disorder, predominantly inattentive type F90.0 and Generalized anxiety disorder F41.1 [facility] [id number] [place] [address] 48434- 1515 May, [facility] [id number] [place] [address] 07023- 6529 May, Acute worsening of stage 3 chronic kidney disease N18.3 [facility] [id number] [place] [address] 98788- 8198 Apr, [facility] [address] 01858- 2846 Apr, Acute allergic rhinitis due to pollen, unspecified seasonality J30.1 ; Restless legs G25.81 and Low back pain M54.5 [facility] [address] [place] [address]- 2565 10 Apr, 2017 Primary osteoarthritis of both knees M17.0 [facility] [id number] [place] [address] 37042- 5058 08 Apr, 2017 Generalized anxiety disorder F41.1 [facility] [id number] [place] [address] 07381- 3129 07 Apr, 2017 Major depressive disorder, recurrent, mild F33.0 ; Attention -deficit hyperactivity disorder, predominantly inattentive type F90.0 and Generalized anxiety disorder F41.1 [facility] [id number] [place] [address] 98947- 8027 Apr, [facility] [id number] [place] [address] 63498- 2282 Mar, Major depressive disorder, recurrent episode, moderate F33.1 ; Generalized anxiety disorder F41.1 and ADHD, predominantly inattentive type F90.0 [facility] [id number] [place] [address] 73617 -7611 Mar, Abscess L02.91 [facility] [id number] [place] [address] 10842- 3311 Mar, 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 [facility] [id number] [place] [address] 18467- 1790 Mar, Decreased renal function N28.9 [facility] [id number] [place] [address] [id number] Mar, Dental examination Z01.20 [facility] [id number] [place] [address] 29583- 9885 17 Mar, 2017 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 [facility] [id number] [place] [address] 08898- 4547 Mar, 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 [facility] [id number] [place] [address] [id number] Mar, Dental examination Z01.20 and Dental caries K02.9 [facility] [id number] [place] [address] 62805- 6664 Mar, Chronic viral hepatitis B without delta-agent B18.1 ; Folic acid deficiency E53.8 ; 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 and Decreased renal function N28.9 [facility] [id number] [place] [address] 92029- 7840 Mar, Major depressive disorder, recurrent, mild F33.0 [facility] [id number] [place] [address] 96901- 0857 Mar, [facility] [id number] [place] [address] 80394- 5305 Mar, Chronic hepatitis K73.9 ; 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 ; Localized edema R60.0 ; Illicit drug use F19.90 ; Vision changes H53.9 and Obesity due to excess calories, unspecified obesity severity E66.09 [place] [id number] [place] [address] 54599- 6323 Jan, Major depressive disorder, recurrent, mild F33.0 [facility] [id number] [place] [address] 67362- 2988 Jan, Chronic viral hepatitis B without delta-agent B18.1 [facility] [id number] [place] [address] 45866- 3454 Jan, [facility] [id number] [place] [address] 65153- 6465 Jan, Weight gain R63.5 ; Hypothyroid E03.9 ; 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 ; Decreased renal function N28.9 and Chronic viral hepatitis B without delta-agent B18.1 [facility] [id number] [place] [address] 63758- 5918 December, Major depressive disorder, recurrent, mild F33.0 and Generalized anxiety disorder F41.1 [facility] [id number] [place] [address] 94420- 3202 December, Obesity due to excess calories, unspecified obesity severity E66.09 and Folic acid deficiency E53.8 [facility] [address] [address]- 0101 December, Folic acid deficiency E53.8 [facility] [id number] [place] [address] 26139- 9828 December, Folic acid deficiency E53.8 [facility] [id number] [place] [address] 89523- 7798 December, Obesity due to excess calories, unspecified obesity severity E66.09 [facility] [id number] [place] [address] 21674- 7976 December, [facility] [id number] [place] [address] 25092- 7087 December, Folic acid deficiency E53.8 [facility] [id number] [place] [address] [id number] December, Encounter for other administrative examinations Z02.89 [facility] [id number] [place] [address] 69581- 3497 Dec, [facility] [id number] [place] [address] [id number] Dec, Dental caries K02.9 [facility] [id number] [place] [address] 99470- 8807 Oct, Bone pain M89.8X9 [facility] [id number] [place] [address] 94724- 5613 Oct, Hypothyroid E03.9 [facility] [id number] [place] [address] 13796- 7894 24 Oct, 2016 Hypothyroid E03.9 [facility] [id number] [place] [address] 79972- 5775 13 Oct, 2016 Breast cancer screening Z12.39 [facility] [id number] [place] [address] [id number] 08 Oct, 2016 Dental examination Z01.20 [facility] [id number] [place] [address] 97388- 6380 Oct, [facility] [facility] [address] 30479- 2737 Oct, Major depressive disorder, recurrent, mild F33.0 and Generalized anxiety disorder F41.1 [facility] [id number] [place] [address] 88227- 9505 Oct, [facility] [id number] [place] [address] 80514- 9672 Oct, Hypothyroid E03.9 [place] [address] 23709- 3802 Sep, Hypothyroid E03.9 ; Chronic viral hepatitis B without delta- agent B18.1 and Folic acid deficiency E53.8 [facility] [facility] [address] 77390- 8936 Sep, Hypothyroidism, unspecified type E03.9 ; Elevated parathyroid hormone E34.9 and Chronic viral hepatitis B without delta-agent B18.1 [facility] [address] 10193- 3986 Sep, [facility] [id number] [place] [address] 36038- 5917 Sep, Elevated parathyroid hormone E34.9 [facility] [id number] [place] [address] 56983- 0051 Sep, [facility] [id number] [place] [address] 48898- 7569 Sep, Chronic hepatitis K73.9 ; Bone pain M89.8X9 and Abnormal complete blood count R79.89 [facility] [id number] [place] [address] 71722- 4055 Aug, Major depressive disorder, recurrent, mild F33.0 [facility] [id number] [place] [address] 26251- 8413 Aug, Bone pain M89.8X9 [facility] [id number] [place] [address] 65443- 5427 Aug, [facility] [id number] [place] [address] 55808- 8418 Jul, Chronic viral hepatitis B without delta-agent B18.1 [facility] [address] 07942- 7807 Jul, Hypothyroidism, unspecified type E03.9 [facility] [address] 48962- 3966 Jul, [facility] [address] 45576- 8426 Jul, Chronic hepatitis K73.9 and Hypothyroid E03.9 [facility] [facility] [address] 10105- 3717 Jul, Low back pain M54.5 [facility] [address] 61848- 0207 Jun, Depression, major, recurrent, mild F33.0 and ADD (attention deficit disorder) F90.0 [facility] [id number] [place] [address] 06784- 3095 Jun, [facility] [id number] [place] [address] 45293- 3468 Jun, Low back pain M54.5 [facility] [id number] [place] [address] 10964- 6469 Jun, Encounter for immunization Z23 ; Major depressive disorder, recurrent, mild F33.0 and Attention-deficit hyperactivity disorder, predominantly inattentive type F90.0 [facility] [id number] [place] [address] 83282- 1301 Jun, [facility] [address] 35876- 2249 Jun, Low back pain M54.5 [facility] [id number] [place] [address] 30267- 2987 May, [facility] [id number] [place] [address] 13339- 6064 May, [facility] [id number] [place] [address] 18911- 8393 May, Essential (primary) hypertension I10 [facility] [id number] [place] [address] 92146- 2259 May, Low back pain M54.5 [facility] [id number] [place] [address] 36656- 7183 May, Low back pain M54.5 ; Chronic hepatitis K73.9 and Hypothyroid E03.9 [facility] [id number] [place] [address] 00460- 2864 May, Hypothyroidism, unspecified type E03.9 [facility] [id number] [place] [address] 90896- 6062 May, Low back pain M54.5 [facility] [id number] [place] [address] 94002- 2264 May, [facility] [id number] [place] [address] 25823- 8294 May, [facility] [id number] [place] [address] 08800- 3414 May, Major depressive disorder, recurrent, moderate F33.1 ; Generalized anxiety disorder F41.1 ; Insomnia G47.00 and ADD (attention deficit disorder) F90.0 [facility] [id number] [place] [address] 03589- 4489 Apr, Low back pain M54.5 [facility] [id number] [place] [address] 81991- 7438 Apr, [facility] [id number] [place] [address] 26819- 4264 15 Apr, 2016 Low back pain M54.5 [facility] [id number] [place] [address] 27878- 5851 Apr, Low back pain M54.5 ; Tooth pain K08.8 and Seasonal allergic rhinitis due to pollen J30.1 [facility] [address] 33567- 6980 Apr, Low back pain M54.5 [facility] [id number] [place] [address] 83543- 3857 Apr, [facility] Pap smear of vagina R87.622 [facility] [id number] [place] [address] 08401- 4867 Apr, Low back pain M54.5 [facility] [id number] [place] [address] 09170- 8107 Mar, [facility] [id number] [place] [address] 02866- 5261 Mar, Low back pain M54.5 [facility] [id number] [place] [address] 27004- 7548 Mar, Encounter for Papanicolaou smear for cervical cancer screening Z12.4 ; Encounter for routine gynecological examination Z01.419 and Breast cancer screening Z12.39 [facility] [id number] [place] [address] 79498- 4348 18 Mar, 2016 Hypothyroidism, unspecified type E03.9 [facility] [id number] [place] [address] 38982- 1083 14 Mar, 2016 Low back pain M54.5 ; Other chronic pain G89.29 ; Hypothyroid E03.9 and Hypothyroidism, unspecified type E03.9 [facility] [id number] [place] [address] 28300- 4797 12 Mar, 2016 Major depressive disorder, recurrent, moderate F33.1 and Attention-deficit hyperactivity disorder, predominantly inattentive type F90.0 [facility] [id number] [place] [address] 51909 -1294 Mar, Bronchitis J40 [facility] [id number] [place] [address] 32686- 9377 Jan, [facility] [id number] [place] [address] 19569- 5128 Jan, [facility] [id number] [place] [address] 68884- 4776 Jan, Insomnia G47.00 [facility] [id number] [place] [address] 58663- 4216 December, [facility] [id number] [place] [address] 25151- 4181 December, Major depressive disorder in partial remission F32.4 and Attention-deficit hyperactivity disorder, unspecified type F90.9 [facility] [id number] [place] [address] 73548- 2348 December, [facility] [id number] [place] [address] 36910- 0507 December, [facility] [id number] [place] [address] 00785- 0576 Dec, [facility] [id number] [place] [address] 42107- 9053 Dec, Major depressive disorder, recurrent episode, moderate 296.32 and Attention deficit disorder of childhood without mention of hyperactivity 314.00 [facility] [id number] [place] [address] 23956- 0885 Dec, Major depressive disorder, recurrent episode, mild 296.31 ; ADD (attention deficit disorder) F90.0 and Hyperlipidemia E78.5 [facility] [id number] [place] [address] 07789- 0415 Dec, Insomnia G47.00 [facility] [id number] [place] [address] 40875- 3977 Dec, Attention-deficit hyperactivity disorder, predominantly inattentive type F90.0 [facility] [id number] [place] [address] 06027- 5652 Oct, Restless legs syndrome G25.81 [facility] [id number] [place] [address] 81142- 6141 Oct, Hypothyroidism, unspecified type E03.9 [facility] [id number] [place] [address] 94956- 0336 Oct, [facility] [id number] [place] [address] 08631- 8607 Oct, [facility] [id number] [place] [address] 34327- 2847 15 Nov, 2015 Hypothyroid E03.9 and Chronic hepatitis K73.9 [facility] [id number] [place] [address] 13802- 3306 Oct, [facility] [id number] [place] [address] 65677- 6140 08 Nov, 2015 Restless legs syndrome G25.81 ; Chronic hepatitis K73.9 ; Hypertension I10 ; Hypothyroid E03.9 and Breast cancer screening Z12.39 [facility] [address] [address]- 9068 Oct, [facility] [id number] [place] [address] 42853- 7749 Oct, [facility] [id number] [place] [address] 45784- 3122 Oct, [facility] [id number] [place] [address] 32257- 2718 Oct, [facility] [id number] [place] [address] 87185- 4568 Oct, [facility] [id number] [place] [address] 17340- 4228 10 Oct, 2015 [facility] [address] [address]- 6230 Oct, [facility] [id number] [place] [address] 76599- 8073 Sep, [facility] [id number] [place] [address] 86934- 0172 Sep, Attention-deficit hyperactivity disorder, predominantly inattentive type F90.0 and Major depressive disorder in partial remission F32.4 [facility] [id number] [place] [address] 36218- 4800 Sep, [facility] [id number] [place] [address] 00079- 2127 Aug, [facility] [id number] [place] [address] 81399- 2142 Aug, [facility] [id number] [place] [address] 35652- 8304 15 Aug, 2015 Major depressive disorder, recurrent, mild F33.0 ; Attention -deficit hyperactivity disorder, unspecified type F90.9 and Generalized anxiety disorder F41.1 [facility] [id number] [place] [address] 68886- 8328 08 Aug, 2015 Chronic hepatitis K73.9 ; Primary osteoarthritis of both knees M17.0 and Neuralgia M79.2 [facility] [address] [address]- 3746 Jul, [facility] [address] [address]- 6802 Jul, [facility] [id number] [place] [address] 12499- 4185 Jul, [facility] [address] [address]- 3311 Jul, [facility] [id number] [place] [address] 73161- 0985 Jun, [facility] [id number] [place] [address] 79634- 3265 Jun, Bronchitis J40 and Encounter for immunization Z23 [facility] [id number] [place] [address] 04858- 1371 30 May, 2015 [facility] [id number] [place] [address] 81699- 4728 May, [facility] [id number] [place] [address] 42010- 7382 May, [facility] [address] [address]- [address] May, Hypokalemia 276.8 [facility] [id number] [place] [address] [id number]- [phone] 08 May, 2015 Major depressive disorder, recurrent episode, mild 296.31 ; Attention deficit disorder of childhood without mention of hyperactivity 314.00 and Generalized anxiety disorder 300.02 [facility] [id number] [place] [address] 19214- 3903 May, Hypertension 401.9 and Hypokalemia 276.8 [facility] [id number] [place] [address] [phone]- [phone] May, [facility] [id number] [place] [address] [phone]- [phone] Apr, [facility] [id number] [place] [address] [id number]- 6069 Apr, [facility] [id number] [place] [address] 28046- 8190 Apr, [facility] [id number] [place] [address] 62138- 4086 Apr, [facility] [id number] [place] [address] 46783- 4245 Mar, [facility] [address] 58758- 7088 Mar, [facility] [id number] [address] Mar, [facility] [id number] [place] [address] [id number]- 8760 Mar, [facility] [id number] [place] [address] 86918- 5204 Mar, Arthritis of both knees 716.96 ; Hepatitis B 070.30 ; Hypertension 401.9 ; Carpal tunnel syndrome 354.0 and Cubital tunnel syndrome 354.2 [facility] [id number] [place] [address] 65534- 8482 Mar, [facility] [id number] [place] [address] 73847- 7770 Mar, [facility] [id number] [place] [address] 69880- 7004 Mar, 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, chronic, without mention of hepatitis delta 070.32 ; Chronic hepatitis C without mention of hepatic coma 070.54 and Major depressive disorder, recurrent episode, moderate 296.32 [facility] [id number] [place] [address] 90930- 6850 Jan, [facility] [id number] [place] [address] 92078- 1091 Jan, Major depressive disorder, recurrent episode, mild 296.31 and Attention deficit disorder of childhood without mention of hyperactivity 314.00 [facility] [id number] [address] 07[address] Jan, [facility] [id number] [place] [address] 37097- 8968 Jan, [facility] [id number] [address] 9[address] December, Attention deficit disorder of childhood without mention of hyperactivity 314.00 ; Major depressive disorder, recurrent episode, mild 296.31 and Generalized anxiety disorder 300.02 [facility] [place] [facility] [address] [id number] [place] [address] 9619 08 Dec, 2014 [facility] [place] [facility] [address] [id number] [place] [address]- 0543 14 Dec, 2014 [facility] [place] [facility] [address] [facility] [id number] [place] [address]- 1044 13 Dec, 2014 [facility] [place] [facility] [address] [id number] [place] [address]- 7161 19 Oct, 2014 [facility] [place] [facility] [address] [id number] [place] [address]- 4404 19 Oct, 2014 [facility] [place] [facility] [address] [facility] [id number] [place] [address]- 1884 18 Oct, 2014 [facility] [place] [facility] [address] [facility] [id number] [place] [address]- 5889 18 Oct, 2014 [facility] [place] [facility] [address] [facility] [id number] [address]- 4357 18 Oct, 2014 [facility] [place] [facility] [address] [facility] [id number] [place] [address]- 0408 18 Oct, 2014 [facility] [place] [facility] [address] [facility] [id number], [place] [address]- 4776 16 Oct, 2014 [facility] [place] [facility] [address] [facility] [id number], [place] [address]- 4253 13 Oct, 2014 [facility] [place] [facility] [address] [facility] [id number], [place] [address]- 0434 13 Oct, 2014 [facility] [place] [facility] [address] [facility] [id number], [place] [address]- 1536 12 Oct, 2014 [facility] [place] [facility] [address] [facility] [id number], [place] [address]- 6356 12 Oct, 2014 [facility] [place] [facility] [address] [facility] [id number], [place] [address]- 7895 10 Oct, 2014 [facility] [place] [facility] [address] [facility] [id number], [place] [address]- 8639 Oct, [facility] [place] [facility] [address] [id number] [place] [address]- 6936 Oct, 2014 [facility] [place] [facility] [address] [id number] [place] [address]- 2078 Oct, 2014 [facility] [place] [facility] [address] [facility] [id number] [place] [address]- 4540 Oct, 2014 [facility] [place] [facility] [address] [facility] [id number] [place] [address]- 9829 Oct, 2014 [facility] [place] [facility] [address] [id number] [place] [address]- 2030 25 Oct, 2014 [facility] [place] [facility] [address] [facility] [id number] [place] [address]- 2917 19 Oct, 2014 [facility] [place] [facility] [address] [facility] [id number] [place] [address]- 0379 18 Oct, 2014 [facility] [place] [facility] [address] [facility] [id number] [place] [address]- 3421 17 Oct, 2014 [facility] [place] [facility] [address] [facility] [id number] [place] [address]- 5514 17 Oct, 2014 [facility] [place] [facility] [address] [facility] [id number] [place] [address]- 4077 11 Oct, 2014 [facility] [place] [facility] [address] [facility] [id number] [place] [address]- 2548 11 Oct, 2014 [facility] [place] [facility] [address] [facility] [id number] [place] [address]- 2541 11 Oct, 2014 [facility] [place] [facility] [address] [facility] [id number] [place] [address]- 2388 11 Oct, 2014 [facility] [place] [facility] [address] [facility] [id number] [place] [address]- 2546 10 Oct, 2014 [facility] [place] [facility] [address] [facility] [id number] [place] [address]- 2678 Oct, [facility] [place] [facility] [address] [id number] [place] [address]- 2120 Sep, [facility] [place] [facility] [address] [id number] [place] [address]- 7119 Sep, [facility] [place] [facility] [address] [id number] [place] [address]- 4084 Sep, [facility] [place] [facility] [address] [id number] [place] [address]- 0452 Sep, [facility] [place] [facility] [address] [id number] [place] [address]- 5183 Sep, [facility] [place] [facility] [address] [id number] [place] [address]- 8015 Sep, [facility] [place] [facility] [address] [id number] [place] [address]- 7816 Sep, [facility] [place] [facility] [address] [id number] [place] [address]- 4402 Sep, [facility] [place] [facility] [address] [id number] [place] [address]- 2251 Sep, [facility] [place] [facility] [address] [id number] [place] [address]- 3330 Sep, [facility] [place] [facility] [address] [id number], [place] [address]- 0458 Sep, [facility] [place] [facility] [address] [id number], [place] [address]- 4413 Sep, [facility] [place] [facility] [address] [id number], [place] [address]- 8393 Sep, [facility] [place] [facility] [address] [id number], [place] [address]- 9694 Sep, [facility] [place] [facility] [address] [id number], [place] [address]- 8909 Sep, [facility] [place] [facility] [address] [id number] [place] 5237 Sep, [facility] [address] [id number] [place] [address]- 7456 Aug, [facility] [place] [facility] [address] [id number] [place] [address]- 8146 Aug, [facility] [place] [facility] [address] [id number] [place] [address]- 7226 Aug, [facility] [place] [facility] [address] [id number] [place] [address]- 6694 Aug, [facility] [place] [facility] [address] [id number] [place] [address]- 2980 Aug, [facility] [place] [facility] [address] [id number] [place] [address]- 0239 Aug, [facility] [address] [id number] [place] [address]- 7057 Aug, [facility] [place] [facility] [address] [id number] [place] [address]- 5404 Aug, [facility] [place] [facility] [address] [id number] [place] [address]- 2510 19 Aug, 2014 [facility] [place] [facility] [address] [id number] [place] [address]- 2103 18 Aug, 2014 [facility] [place] [facility] [address] [id number] [place] [address]- 2357 18 Aug, 2014 [facility] [place] [facility] [address] [id number] [place] [address]- 2814 16 Aug, 2014 [facility] [place] [facility] [address] [id number] [place] 3026 16 Aug, 2014 [facility] [place] [facility] [address] [id number] [place] [address]- 5796 15 Aug, 2014 [facility] [place] [facility] [address] [id number] [place] [address]- 1005 15 Aug, 2014 [facility] [place] [facility] [address] [id number] [place] [address]- 6711 Aug, [facility] [place] [facility] [address] [id number] [place] [address]- 5670 Aug, [facility] [place] [facility] [address] [id number] [place] [address]- 8448 Aug, [facility] [place] [facility] [address] [id number] [place] [address]- 0892 Aug, [facility] [place] [facility] [address] [id number] [place] [address]- 0679 Aug, [facility] [place] [facility] [address] [id number] [place] [address]- 0102 Aug, [facility] [place] [facility] [address] [id number] [place] [address]- 3009 Aug, [facility] [place] [facility] [address] [id number] [place] [address]- 5362 Aug, [facility] [place] [facility] [address] [id number] [place] [address]- 1812 Aug, [facility] [place] [facility] [address] [id number] [place] [address]- 4917 Aug, [facility] [place] [facility] [address] [id number] [place] [address]- 7362 Jul, [facility] [place] [facility] [address] [id number] [place] [address]- 3153 Jul, [facility] [place] [facility] [address] [id number] [place] [address]- 9142 Jul, [facility] [place] [facility] [address] [id number] [place] [address]- 2158 Jul, [facility] [place] [facility] [address] [id number] [place] 0096 Jul, [facility] [place] [facility] [address] [id number], [place] [address]- 2458 Jul, [facility] [place] [facility] [address] [id number] [place] [address]- 2283 Jun, [facility] [place] [facility] [address] [id number] [place] [address]- 4444 Jun, [facility] [place] [facility] [address] [id number] [place] [address]- 3463 Jun, [facility] [place] [facility] [address] [id number] [place] [address]- 5549 Jun, [facility] [place] [facility] [address] [id number] [place] [address]- 0089 Jun, [facility] [place] [facility] [address] [id number] [place] [address]- 2842 Jun, [facility] [place] [facility] [address] [id number] [place] [address]- 5082 Jun, [facility] [place] [facility] [address] [id number] [place] [address]- 3121 Jun, [facility] [place] [facility] [address] [id number] [place] [address]- 8538 16 May, 2014 [facility] [place] [facility] [address] [id number] [place] [address]- 9285 16 May, 2013 [facility] [place] [facility] [address] [id number], [place] [address]- 8129 15 May, 2013 [facility] [place] [facility] [address] [id number], [place] [address]- 7561 15 May, 2013 [facility] [place] [facility] [address] [id number] [place] [address]- 6210 08 Sep, 2013 [facility] [place] [facility] [address] [id number] [place] [address]- 8981 08 Sep, 2013 [facility] [place] [facility] [address] [id number] [place] [address]- 7807 08 May, 2013 [facility] [place] [facility] [address] [id number] [place] [address]- 2286 May, [facility] [place] [facility] [address] [id number] [place] [address]- 7693 Apr, [facility] [place] [facility] [address] [id number] [place] [address]- 3250 Apr, [facility] [place] [facility] [address] [id number] [place] [address]- 1756 Apr, [facility] [place] [facility] [address] [id number] [place] [address]- 5284 Apr, [facility] [place] [facility] [address] [id number] [place] [address]- 5882 Apr, [facility] [place] [facility] [address] [id number] [place] [address]- 1341 Apr, [facility] [place] [facility] [address] [id number] [place] [address]- 6503 Apr, [facility] [place] [facility] [address] [id number] [place] [address]- 4874 Apr, [facility] [place] [facility] [address] [id number] [place] [address]- 6975 Apr, [facility] [place] [facility] [address] [id number] [place] [address]- 3042 Apr, [facility] [place] [facility] [address] [id number] [place] [address]- 2767 Apr, [facility] [place] [facility] [address] [id number] [place] [address]- 4579 Apr, [facility] [place] [facility] [address] [id number] [place] [address]- 5143 Apr, [facility] [place] [facility] [address] [id number] [place] [address]- 9304 Mar, [facility] [place] [facility] [address] [id number] [place] [address]- 4141 Mar, [facility] [place] [facility] [address] [id number] [place] [address]- 6155 Mar, [facility] [place] [facility] [address] [id number] [place] [address]- 7717 Mar, [facility] [place] [facility] [address] [id number] [place] [address]- 8951 Jan, [facility] [place] [facility] [address] [id number] [place] [address]- 8380 Jan, [facility] [place] [facility] [address] [id number] [place] [address]- 4754 December, [facility] [place] [facility] [address] [id number] [place] [address]- 4106 December, [facility] [place] [facility] [address] [id number] [place] [address]- 6404 December, [facility] [place] [facility] [address] [id number] [place] [address]- 4107 December, [facility] [place] [facility] [address] [id number] [place] [address]- 7290 December, [facility] [place] [facility] [address] [id number] [place] [address]- 0932 December, [facility] [place] [facility] [address] [id number] [place] [address]- 2805 December, [facility] [place] [facility] [address] [id number] [place] [address]- 9038 December, [facility] [place] [facility] [address] [id number] [place] [address]- 6397 Dec, [facility] [place] [facility] [address] [id number] [place] [address]- 6789 Dec, [facility] [place] [facility] [address] [id number] [place] 4289 Dec, [facility] [place] [facility] [address] [id number] [place] [address]- 7765 24 Dec, 2013 [facility] [place] [facility] [address] [id number] [place] [address]- 4854 Oct, [facility] [place] [facility] [address] [id number] [place] 3904 Oct, [facility] [place] [facility] [address] [id number] [place] [address]- 4804 Oct, [facility] [place] [facility] [address] [id number] [place] [address]- 2999 Oct, [facility] [place] [facility] [address] [id number] [place] [address]- 9305 Oct, [facility] [place] [facility] [address] [id number] [place] [address]- 6932 Oct, [facility] [place] [facility] [address] [id number] [place] [address]- 4808 Oct, [facility] [place] [facility] [address] [id number] [place] [address]- 7818 Oct, [facility] [place] [facility] [address] [id number] [place] [address]- 8150 Oct, [facility] [place] [facility] [address] [facility] [id number] [place] [address]- 6934 Oct, [facility] [place] [facility] [address] [id number] [place] [address]- 2649 Oct, [facility] [place] [facility] [address] [id number] [place] [address]- 0671 Oct, [facility] [place] [facility] [address] [id number] [place] [address]- 9530 Oct, [facility] [place] [facility] [address] [id number] [place] [address]- 4298 Oct, [facility] [place] [facility] [address] [id number] [place] [address]- 0773 Oct, [facility] [place] [facility] [address] [id number] [place] [address]- 2956 Oct, [facility] [place] [facility] [address] [id number] [place] [address]- 7586 Oct, [facility] [place] [facility] [address] [id number] [place] [address]- 5850 Oct, [facility] [place] [facility] [address] [id number] [place] [address]- 2112 Oct, [facility] [place] [facility] [address] [id number] [place] [address]- 2002 Oct, [facility] [place] [facility] [address] [id number] [place] [address]- 0012 Oct, [facility] [place] [facility] [address] [id number] [place] [address]- 3265 Oct, [facility] [place] [facility] [address] [id number] [place] [address]- 3208 Sep, [facility] [place] [facility] [address] [id number] [place] [address]- 7749 Sep, [facility] [place] [facility] [address] [facility] [id number] [place] [address]- 2056 Sep, [facility] [place] [facility] [address] [facility] [id number] [place] [address]- 0161 Sep, [facility] [place] [facility] [address] [id number] [place] [address]- 7111 Aug, [facility] [place] [facility] [address] [id number] [place] [address]- 6378 Aug, [facility] [place] [facility] [address] [facility] [id number] [place] [address]- 6136 Aug, [facility] [place] [facility] [address] [facility] [id number] [place] [address]- 9009 Aug, [facility] [place] [facility] [address] [id number] [place] [address]- 2721 Aug, [facility] [address] [id number] [place] 3749 Aug, [facility] [address] [id number] [place] 2070 Aug, [facility] [address] [id number] [place] [address]- 6031 Aug, [facility] [address] [id number] [place] [address]- 4068 Aug, [facility] [address] [id number] [place] 7993 Jul, [facility] [address] [id number] [place] [address]- 8510 Jul, [facility] [address] [id number] [place] [address]- 7425 Jul, [facility] [address] [id number] [place] [address]- 5319 Jul, [facility] [address] [facility] [id number] [place] [address]- 7104 Jul, [facility] [address] [facility] [id number] [place] [address]- 8746 Jul, [facility] [place] [facility] [address] [id number] [place] [address]- 3287 Jul, [facility] [address] [id number] [place] [address]- 5345 Jul, [facility] [place] [facility] [address] [id number] [place] [address]- 6044 Jun, [facility] [place] [facility] [address] [facility] [id number] [place] [address]- 9238 Jun, [facility] [place] [facility] [address] [facility] [id number] [place] [address]- 3121 Jun, [facility] [place] [facility] [address] [id number] [place] [address]- 9134 Jun, [facility] [place] [facility] [address] [id number] [place] [address]- 8519 Jun, [facility] [place] [facility] [address] [id number] [place] [address] Jun, [facility] [place] [facility] [address] [id number] [place] [address] Jun, [facility] [place] [facility] [address] [id number] [place] [address] Jun, [facility] [place] [facility] [address] [id number] [place] [address] 30 May, 2013 [facility] [place] [facility] [address] [id number] [place] [address] 26 May, 2013 [facility] [place] [facility] [address] [id number] [place] [address] 23 May, 2013 [facility] [place] [facility] [address] [id number] [place] [address] 19 May, 2013 [facility] [place] [facility] [address] [id number], [place] [address] 12 May, 2013 [facility] [place] [facility] [address] [id number], [place] [address] May, [facility] [place] [facility] [address] [id number], [place] [address] Apr, [facility] [place] [facility] [address] [id number] [place] [address] Apr, [facility] [place] [facility] [address] [id number], [place] [address] Apr, [facility] [place] [facility] [address] [id number], [place] [address] Apr, [facility] [place] [facility] [address] [id number], [place] [address] Apr, [facility] [place] [facility] [address] [id number] [place] [address] Apr, [facility] [place] [facility] [address] [id number] [place] [address] Apr, [facility] [place] [facility] [address] [id number] [place] [address] Mar, [facility] [place] [facility] [address] [id number] [place] [address] Mar, [facility] [place] [facility] [address] [id number] [place] [address] Mar, [facility] [place] [facility] [address] [id number] [place] [address] 135[address] Mar, [facility] [place] [facility] [address] [id number] [place] [address] Mar, [facility] [place] [facility] [address] [id number] [place] [address] 6[address] Mar, [facility] [place] [facility] [address] [id number] [place] [address]- 67[address] Mar, [facility] [place] [facility] [address] [id number] [place] [address] Jan, [facility] [place] [facility] [address] [id number] [place] [address] Jan, [facility] [place] [facility] [address] [id number] [place] [address] Jan, [facility] [place] [facility] [address] [id number] [place] [address]- 1144 Jan, [facility] [place] [facility] [address] [id number] [place] [address] 8296 Jan, [facility] [place] [facility] [address] [id number] [place] [address] 4[address] Jan, [facility] [place] [facility] [address] [id number] [place] [address] Jan, [facility] [address] [id number] [place] [address] December, [facility] [address] [id number] [place] [address] December, [facility] [address] [id number] [place] [address] 3528 December, [facility] [address] [id number] [place] [address] 20[address] December, [facility] [address] [id number] [place] [address] Dec, [facility] [address] [id number] [place] [address] Dec, [facility] [address] [id number] [place] [address] Dec, [facility] [address] [id number] [place] [address] 57[address] Oct, [facility] [address] [id number] [place] [address] 4230 Oct, [facility] [address] [id number] [place] [address]- [address]243 Oct, [facility] [address] [id number] [place] [address] 8656 Oct, [facility] [address] [id number] [place] [address] 9207 Oct, [facility] [place] [facility] [address] [id number] [place] [address] Oct, [facility] [place] [facility] [address] [id number] [place] [address]- [address] Oct, [facility] [place] [facility] [address] [id number] [place] [address] 0416 Oct, [facility] [place] [facility] [address] [id number] [place] [address]- 0363 Oct, [facility] [place] [facility] [address] [id number] [place] [address]- 4546 Oct, [facility] [place] [facility] [address] [facility] [id number] [place] [address]- [address]406 Oct, [facility] [place] [facility] [address] [id number] [place] [address]- 6537 Sep, [facility] [place] [facility] [address] [id number] [place] [address] 1648 Sep, [facility] [place] [facility] [address] [id number] [place] [address]- 0994 Sep, [facility] [place] [facility] [address] [id number] [place] [address] 7936 Aug, [facility] [place] [facility] [address] [id number] [place] [address]- 244[address] Aug, [facility] [place] [facility] [address] [id number] [place] [address]- 7155 Aug, [facility] [place] [facility] [address] [facility] [id number] [place] [address]- 6917 Aug, [facility] [place] [facility] [address] [facility] [id number], [place] [address] Jul, [facility] [place] [facility] [address] [id number], [place] [address] Jul, [facility] [place] [facility] [address] [id number] [place] [address]- 9456 Jul, [facility] [place] [facility] [address] [facility] [id number] [place] [address]- 7739 Jul, [facility] [place] [facility] [address] [facility] [id number] [place] [address] Jul, [facility] [place] [facility] [address] [id number] [place] [address]- 2105 Jul, [facility] [place] [facility] [address] [id number] [place] [address]- 0423 Jul, [facility] [place] [facility] [address] [id number] [place] [address]- 9846 Jul, [facility] [place] [facility] [address] [id number] [place] [address] Jun, [facility] [place] [facility] [address] [id number] [place] [address] Jun, [facility] [place] [facility] [address] [id number] [place] [address], [place] [address] Jun, [facility] [place] [facility] [address] [id number] [place] [address] Jun, [facility] [place] [facility] [address] [facility] [id number] [place] [address] Jun, [facility] [place] [facility] [address] [id number] [place] [address] 26 May, 2012 [facility] [place] [facility] [address] [id number] [place] [address] 20 May, 2012 [facility] [place] [facility] [address] [facility] [id number] [place] [address] 18 May, 2012 [facility] [place] [facility] [address] [id number] [place] [address] 2547 09 May, 2012 [facility] [place] [facility] [address] [id number] [place] [address] May, [facility] [place] [facility] [address] [id number] [place] [address] 3586 30 Apr, 2012 [facility] [place] [facility] [address] [facility] [id number] [place] [address]- 6[address] Apr, [facility] [place] [facility] [address] [facility] [id number] [place] [address] 6[address] Apr, [facility] [place] [facility] [address] [id number] [place] [address]- 3[address] Apr, [facility] [place] [facility] [address] [id number] [place] [address]- 7672 Apr, [facility] [place] [facility] [address] [id number] [place] [address] Apr, [facility] [place] [facility] [address] [id number] [place] [address]- 7633 Apr, [facility] [place] [facility] [address] [id number] [place] [address] 9317 Mar, [facility] [place] [facility] [address] [id number] [place] [address]- 1767 Mar, [facility] [place] [facility] [address] [id number] [place] [address]- 9286 Mar, [facility] [place] [facility] [address] [id number] [place] [address]- 74[address] Mar, [facility] [place] [facility] [address] [id number] [place] [address] 9[address] Jan, [facility] [place] [facility] [address] [id number] [place] [address]- [address]245 Jan, [facility] [place] [facility] [address] [id number] [place] [address]- 7689 Jan, [facility] [place] [facility] [address] [id number] [place] [address]- 1338 Jan, [facility] [place] [facility] [address] [id number] [place] [address]- 7743 Jan, [facility] [place] [facility] [address] [id number] [place] [address]- 8686 Jan, [facility] [place] [facility] [address] [id number] [place] [address]- 4190 December, [facility] [place] [facility] [address] [id number] [place] [address] 6[address] December, [facility] [address] [id number] [place] [address] 4[address] December, [facility] [place] [facility] [address] [id number] [place] [address]- 8206 December, [facility] [place] [facility] [address] [id number] [place] [address] 5726 Dec, [facility] [place] [facility] [address] [id number] [place] [address]- [address]347 Dec, [facility] [address] [id number] [place] [address]- 4[address] Oct, [facility] [place] [facility] [address] [id number] [place] [address] 8495 Oct, [facility] [id number] [place] [address] Oct, [facility] [place] [facility] [address] [facility] [id number] [place] [address]- 6482 Oct, [facility] [place] [facility] [address] [facility] [id number] [place] [address]- 0846 Oct, [facility] [place] [facility] [address] [facility] [id number] [place] [address]- 3727 Oct, [facility] [place] [facility] [address] [facility] [id number] [place] [address] 2043 Oct, [facility] [place] [facility] [address] [facility] [id number] [place] [address]- 8752 Oct, [facility] [place] [facility] [address] [id number] [place] [address]- 8312 Oct, [facility] [place] [facility] [address] [facility] [id number] [place] [address]- 5174 Oct, [facility] [place] [facility] [address] [id number] [place] [address] Oct, [facility] [place] [facility] [address] [id number] [place] [address]- 0843 Sep, [facility] [address] [id number] [place] [address]- 2387 Sep, [facility] [place] [facility] [address] [id number] [place] [address]- 3476 Sep, [facility] [place] [facility] [address] [id number] [place] [address]- 8902 Sep, [facility] [place] [facility] [address] [id number] [place] [address]- 5502 Sep, [facility] [place] [facility] [address] [id number] [place] [address]- 3918 Sep, [facility] [address] [id number] [place] [address]- 1668 Sep, [facility] [address] [id number] [place] [address]- 6821 Sep, [facility] [address] [id number] [place] [address]- 7984 Aug, [facility] [place] [facility] [address] [id number] [place] [address]- 6345 Aug, [facility] [place] [facility] [address] [id number] [place] [address]- 7052 Aug, [facility] [place] [facility] [address] [id number] [place] [address]- 7721 Jul, [facility] [place] [facility] [address] [id number] [place] [address]- 4380 Jul, [facility] [place] [facility] [address] [id number] [place] [address]- 1409 18 Jul, 2011 [facility] [place] [facility] [address] [id number] [place] [address]- 3435 17 Jul, 2011 [facility] [place] [facility] [address] [id number] [place] [address]- 9904 08 Jul, 2011 [facility] [place] [facility] [address] [id number] [place] [address]- 2957 02 Jul, 2011 [facility] [place] [facility] [address] [id number] [place] [address]- 4529 31 Jun, 2011 [facility] [place] [facility] [address] [id number] [place] [address]- 2610 20 Jun, 2011 [facility] [place] [facility] [address] [id number] [place] [address]- 2696 20 Mar, 2011 [facility] [place] [facility] [address] [id number] [place] [address] 14 Dec, 2010 [facility] [place] [facility] [address] [id number] [place] [address]- 9951 14 Oct, 2010 [facility] [place] [facility] [address] [id number] [place] [address]- 8357 06 Aug, 2010 [facility] [place] [facility] [address] [id number] [place] [address]- 4487 30 Jul, 2010 [facility] [place] [facility] [address] [id number] [place] [address]- 6288 11 Jul, 2010 [facility] [place] [facility] [address] [id number] [place] [address]- 5291 Jul, [facility] [place] [facility] [address] [id number] [address] 09 Jul, 2010 [facility] [place] [facility] [address] [id number], [place] [address]- 2671 08 Jul, 2010 [facility] [place] [facility] [address] [id number] [place] [address]- 7242 22 Aug, 2009 [facility] [place] [facility] [address] [id number] [place] [address]- 0235 15 Aug, 2009 [facility] [place] [facility] [address] [id number] [place] [address]- 8154 14 Aug, 2009 [facility] [place] [facility] [address] [facility] [id number] [address] Aug, [facility] [address] [id number] [address] Jul, [facility] [address] [id number] [address] Jul, [facility] [address] [id number] [address] Jul, [facility] [address] [id number] [address] 1260 Jul, [facility] [address] [id number] [address] Jun, [facility] [address] [id number] [address] Jun, IMMUNIZATIONS No Known Immunizations SOCIAL HISTORY Never Assessed REASON FOR VISIT Orders from Results PLAN OF CARE VITAL SIGNS MEDICATIONS Medication Instructions Dosage Frequency Start Date End Date Duration Status Truvada 200-300 MG Orally Once every other day 1 tablet Active RESULTS No Results PROCEDURES No Known [...]
--- OUTSIDE RECORDS SUMMARY | 2018-03-17 11:22 | XMS REPORT ---
Author Author ADRIANA VARSHA [facility] Address [address] [place] [address] Care Team Providers Care Cat Scan Technologist Name Role Phone ADRIANAVARSHA Unavailable PROBLEMS Type Condition ICD9-CM Code [id number] Code Onset Dates Condition Status SNOMED Code Problem 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 Active 64178715 Problem Attention-deficit hyperactivity disorder, predominantly inattentive type F90.0 Active 77150633 Problem Obstructive sleep apnea G47.33 Active 30120630 Problem Primary insomnia F51.01 Active 6330873 Problem Neuralgia M79.2 Active 52412236 Problem Cannabis use disorder, mild, abuse F12.10 Active 70171890 Problem Folic acid deficiency E53.8 Active 459826876 Problem Restless legs G25.81 Active 51079091 Problem Major depressive disorder, recurrent, mild F33.0 Active 78040495 Problem Generalized anxiety disorder F41.1 Active 54828518 Problem Major depressive disorder, recurrent episode, moderate F33.1 Active 341921230 Problem Hypertension I10 Active 74665945 Problem Hyperlipidemia E78.5 Active 15156565 Problem Primary osteoarthritis of both knees M17.0 Active 616313487 Problem Chronic hepatitis K73.9 Active 77639979 Problem Low back pain M54.5 Active 627982747 Problem Chronic viral hepatitis B without delta-agent B18.1 Active 261590466 Problem Insomnia G47.00 Active 072391260 Problem Hypothyroid E03.9 Active 47910309 Problem Depression, major, recurrent, mild F33.0 Active 685545278 Problem Obesity due to excess calories, unspecified obesity severity E66.09 Active 446665841 ALLERGIES No Information ENCOUNTERS Encounter Location Date Diagnosis [facility] [address] [facility] [id number] [address] December, [facility] [address] [facility] [id number], [place] [address] Dec, [facility] [id number] [place] [address] 02254- 3980 Dec, [facility] [address] [address]- [address]67 Oct, [facility] [id number] [place] [address] 47079- 3758 Oct, Syncope, unspecified syncope type R55 ; Primary insomnia F51.01 ; Dry mouth R68.2 and Cannabis use disorder, mild, abuse F12.10 [facility] [id number] [place] [address] 43582- 7816 Oct, [facility] [address] 64704- 6694 Sep, [facility] [address] 20621- 3075 Sep, [facility] [address] [address]267- [address] Sep, [facility] [address] [id number] Sep, Dental examination Z01.20 [facility] [id number] [place] [address] 38091- 9498 Sep, Dental examination Z01.20 [facility] [id number] [place] [address] 36118- 3420 Sep, Sinus congestion R09.81 ; Mouth sores K13.79 ; Low back pain M54.5 and Mouth swelling R22.0 [facility] [id number] [place] [address] 75321- 7540 Aug, Low back pain M54.5 [facility] [id number] [place] [address] 38427- 7237 Aug, Low back pain M54.5 [facility] [id number] [place] [address] 24904- 8930 Jul, [facility] [address] 15837- 0278 Jul, 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 ; Encounter for immunization Z23 ; Hypothyroid E03.9 ; Decreased renal function N28.9 and Muscle cramps R25.2 [facility] [address] 95206- 4725 Jul, [facility] [address] 73263- 9388 Jul, [facility] [address] 53215- 1928 Jul, [place] [address] 16609- 5626 Jul, Major depressive disorder, recurrent, mild F33.0 [place] [address] 80572- 0858 Jul, Acquired cyst of kidney N28.1 ; Acidosis E87.2 and Hyperkalemia E87.5 [place] [address] 80259- 1176 Jul, Major depressive disorder, recurrent, mild F33.0 ; Attention -deficit hyperactivity disorder, predominantly inattentive type F90.0 and Generalized anxiety disorder F41.1 [place] [address] 26573- 0075 Jul, Low back pain M54.5 [facility] [address] 02167- 8408 Jun, Cough R05 ; Low back pain M54.5 and Pre-syncope R55 [place] [address] 17665- 6697 Jun, Low back pain M54.5 [facility] [address] [id number] Jun, Dental caries K02.9 [facility] [id number] [place] [address] 11994- 0925 Jun, [place] [address] 46172- 6825 Jun, Major depressive disorder, recurrent, mild F33.0 ; Attention -deficit hyperactivity disorder, predominantly inattentive type F90.0 and Generalized anxiety disorder F41.1 [place] [address] 62823- 5657 May, Vertigo R42 ; Confusion R41.0 ; Weakness R53.1 and Vision changes H53.9 [place] [address] 04998- 6592 May, [place] [address] 68454- 7766 May, [place] [address] 19832- 2344 May, Low back pain M54.5 [place] [id number] [place] [address] 64970- 7338 05 May, 2017 Major depressive disorder, recurrent, mild F33.0 ; Attention -deficit hyperactivity disorder, predominantly inattentive type F90.0 and Generalized anxiety disorder F41.1 [place] [id number] [place] [address] 00598- 3891 May, [place] [id number] [place] [address] 16533- 7058 May, Acute worsening of stage 3 chronic kidney disease N18.3 [place] [id number] [place] [address] 37273- 1392 Apr, [place] [address] 89892- 8638 Apr, Acute allergic rhinitis due to pollen, unspecified seasonality J30.1 ; Restless legs G25.81 and Low back pain M54.5 [place] [address] [place] [address]- 9235 10 Apr, 2017 Primary osteoarthritis of both knees M17.0 [facility] [id number] [place] [address] 23971- 3118 08 Apr, 2017 Generalized anxiety disorder F41.1 [facility] [id number] [place] [address] 24822- 4431 07 Apr, 2017 Major depressive disorder, recurrent, mild F33.0 ; Attention -deficit hyperactivity disorder, predominantly inattentive type F90.0 and Generalized anxiety disorder F41.1 [facility] [id number] [place] [address] 07894- 5044 Apr, [facility] [id number] [place] [address] 86291- 3563 Mar, Major depressive disorder, recurrent episode, moderate F33.1 ; Generalized anxiety disorder F41.1 and ADHD, predominantly inattentive type F90.0 [facility] [id number] [place] [address] 51514 -3585 Mar, Abscess L02.91 [facility] [id number] [place] [address] 09175- 4662 Mar, 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 [facility] [id number] [place] [address] 33183- 4602 Mar, Decreased renal function N28.9 [facility] [address] [place] [address] [id number] Mar, Dental examination Z01.20 [facility] [address] [place] [address] 49339- 8160 17 Mar, 2017 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 [facility] [id number] [place] [address] 20689- 7030 Mar, 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 [facility] [address] [place] [address] [id number] Mar, Dental examination Z01.20 and Dental caries K02.9 [facility] [address] [id number] [address] Mar, Chronic viral hepatitis B without delta-agent B18.1 ; Folic acid deficiency E53.8 ; 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 and Decreased renal function N28.9 [place] [address] [place] [address] 62958- 0508 Mar, Major depressive disorder, recurrent, mild F33.0 [place] [id number] [place] [address] 35598- 2175 Mar, [place] [id number] [place] [address] 68623- 5288 Mar, Chronic hepatitis K73.9 ; 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 ; Localized edema R60.0 ; Illicit drug use F19.90 ; Vision changes H53.9 and Obesity due to excess calories, unspecified obesity severity E66.09 [place] [id number] [place] [address] 33821- 6005 Jan, Major depressive disorder, recurrent, mild F33.0 [place] [id number] [place] [address] 84700- 0470 Jan, Chronic viral hepatitis B without delta-agent B18.1 [place] [id number] [place] [address] 62928- 8769 Jan, [place] [id number] [place] [address] 31507- 4831 Jan, Weight gain R63.5 ; Hypothyroid E03.9 ; 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 ; Decreased renal function N28.9 and Chronic viral hepatitis B without delta-agent B18.1 [place] [id number] [place] [address] 03420- 9876 December, Major depressive disorder, recurrent, mild F33.0 and Generalized anxiety disorder F41.1 [place] [address] [place] [address] 21031- 0292 December, Obesity due to excess calories, unspecified obesity severity E66.09 and Folic acid deficiency E53.8 [facility] [address] [address]- 6770 December, Folic acid deficiency E53.8 [facility] [address] [place] [address] 77101- 0525 December, Folic acid deficiency E53.8 [facility] [address] [place] [address] 72777- 1633 December, Obesity due to excess calories, unspecified obesity severity E66.09 [facility] [id number] [place] [address] 02160- 4631 December, [facility] [id number] [place] [address] 65599- 2027 December, Folic acid deficiency E53.8 [facility] [id number] [place] [address] [id number] December, Encounter for other administrative examinations Z02.89 [facility] [id number] [place] [address] 13712- 1528 Dec, [facility] [id number] [place] [address] [id number] Dec, Dental caries K02.9 [facility] [address] [place] [address] 78759- 4341 Oct, Bone pain M89.8X9 [facility] [id number] [place] [address] 56402- 5759 Oct, Hypothyroid E03.9 [facility] [address] [place] [address] 90983- 5405 24 Oct, 2016 Hypothyroid E03.9 [facility] [id number] [place] [address] 04048- 3829 13 Oct, 2016 Breast cancer screening Z12.39 [facility] [id number] [place] [address] [id number] 08 Oct, 2016 Dental examination Z01.20 [place] [address] [place] [address] 34036- 1989 Oct, [place] [id number] [place] [address] 61685- 7568 Oct, Major depressive disorder, recurrent, mild F33.0 and Generalized anxiety disorder F41.1 [place] [id number] [place] [address] 56848- 9313 Oct, [place] [id number] [place] [address] 39991- 0445 Oct, Hypothyroid E03.9 [place] [address] 95851- 7995 Sep, Hypothyroid E03.9 ; Chronic viral hepatitis B without delta- agent B18.1 and Folic acid deficiency E53.8 [place] [address] 19308- 9830 Sep, Hypothyroidism, unspecified type E03.9 ; Elevated parathyroid hormone E34.9 and Chronic viral hepatitis B without delta-agent B18.1 [place] [id number] [place] [address] 63404- 1777 Sep, [place] [id number] [place] [address] 47451- 7945 Sep, Elevated parathyroid hormone E34.9 [place] [id number] [place] [address] 38786- 3045 Sep, [place] [id number] [place] [address] 27533- 0551 Sep, Chronic hepatitis K73.9 ; Bone pain M89.8X9 and Abnormal complete blood count R79.89 [place] [id number] [place] [address] 78296- 9419 Aug, Major depressive disorder, recurrent, mild F33.0 [place] [id number] [place] [address] 78540- 1940 Aug, Bone pain M89.8X9 [facility] [id number] [place] [address] 42176- 4478 Aug, [facility] [address] 38819- 1997 Jul, Chronic viral hepatitis B without delta-agent B18.1 [place] [address] 99938- 6713 Jul, Hypothyroidism, unspecified type E03.9 [facility] [address] 84313- 9816 Jul, [place] [address] 77521- 7012 Jul, Chronic hepatitis K73.9 and Hypothyroid E03.9 [place] [address] 43327- 8510 Jul, Low back pain M54.5 [place] [address] 22417- 4680 Jun, Depression, major, recurrent, mild F33.0 and ADD (attention deficit disorder) F90.0 [place] [id number] [place] [address] 14288- 2092 Jun, [place] [address] 07631- 7932 Jun, Low back pain M54.5 [place] [id number] [place] [address] 09076- 4494 Jun, Encounter for immunization Z23 ; Major depressive disorder, recurrent, mild F33.0 and Attention-deficit hyperactivity disorder, predominantly inattentive type F90.0 [facility] [id number] [place] [address] 15344- 3032 Jun, [facility] [address] 80239- 5606 Jun, Low back pain M54.5 [facility] [id number] [place] [address] 80699- 5155 May, [facility] [id number] [place] [address] 25380- 1035 May, [facility] [id number] [place] [address] 55134- 0663 May, Essential (primary) hypertension I10 [facility] [address] 61454- 8177 May, Low back pain M54.5 [facility] [address] 13620- 4496 May, Low back pain M54.5 ; Chronic hepatitis K73.9 and Hypothyroid E03.9 [facility] [address] 67216- 7942 May, Hypothyroidism, unspecified type E03.9 [facility] [id number] [place] [address] 41568- 5226 May, Low back pain M54.5 [facility] [id number] [place] [address] 02696- 0671 May, [facility] [id number] [place] [address] 74195- 8030 May, [facility] [id number] [place] [address] 64913- 0275 May, Major depressive disorder, recurrent, moderate F33.1 ; Generalized anxiety disorder F41.1 ; Insomnia G47.00 and ADD (attention deficit disorder) F90.0 [facility] [id number] [place] [address] 46583- 2430 Apr, Low back pain M54.5 [facility] [id number] [place] [address] 84114- 5156 Apr, [facility] [address] [place] [address] [address]- 6426 Apr, Low back pain M54.5 [place] [id number] [place] [address] 37472- 5711 Apr, Low back pain M54.5 ; Tooth pain K08.8 and Seasonal allergic rhinitis due to pollen J30.1 [place] [id number] [place] [address] 59367- 9659 Apr, Low back pain M54.5 [place] [id number] [place] [address] 61346- 0796 Apr, LGS[facility] Pap smear of vagina R87.622 [place] [address] 90507- 9843 Apr, Low back pain M54.5 [place] [id number] [place] [address] 08195- 3064 Mar, [place] [id number] [place] [address] 99705- 4258 Mar, Low back pain M54.5 [place] [id number] [place] [address] 48038- 5912 Mar, Encounter for Papanicolaou smear for cervical cancer screening Z12.4 ; Encounter for routine gynecological examination Z01.419 and Breast cancer screening Z12.39 [place] [id number] [place] [address] 70635- 9909 18 Mar, 2016 Hypothyroidism, unspecified type E03.9 [place] [id number] [place] [address] 27054- 0174 14 Mar, 2016 Low back pain M54.5 ; Other chronic pain G89.29 ; Hypothyroid E03.9 and Hypothyroidism, unspecified type E03.9 [place] [address] [place] [address] 39317- 3007 12 Mar, 2016 Major depressive disorder, recurrent, moderate F33.1 and Attention-deficit hyperactivity disorder, predominantly inattentive type F90.0 [facility] [address] [place] [address] 68170 -2188 Mar, Bronchitis J40 [facility] [id number] [place] [address] 56712- 6709 Jan, [facility] [id number] [place] [address] 10140- 6810 Jan, [facility] [id number] [place] [address] 07070- 8986 Jan, Insomnia G47.00 [facility] [id number] [place] [address] 37928- 3866 December, [facility] [id number] [place] [address] 41662- 1578 December, Major depressive disorder in partial remission F32.4 and Attention-deficit hyperactivity disorder, unspecified type F90.9 [facility] [id number] [place] [address] 22954- 0990 December, [facility] [id number] [place] [address] 57670- 3068 December, [facility] [id number] [place] [address] 19264- 8564 Dec, [facility] [id number] [place] [address] 48661- 7717 Dec, Major depressive disorder, recurrent episode, moderate 296.32 and Attention deficit disorder of childhood without mention of hyperactivity 314.00 [facility] [address] [place] [address] 58265- 6402 Dec, Major depressive disorder, recurrent episode, mild 296.31 ; ADD (attention deficit disorder) F90.0 and Hyperlipidemia E78.5 [facility] [address] [place] [address] 67102- 3612 Dec, Insomnia G47.00 [facility] [id number] [place] [address] 79273- 0604 Dec, Attention-deficit hyperactivity disorder, predominantly inattentive type F90.0 [facility] [id number] [place] [address] 04765- 3503 Oct, Restless legs syndrome G25.81 [facility] [id number] [place] [address] 68253- 7604 Oct, Hypothyroidism, unspecified type E03.9 [facility] [id number] [place] [address] 87494- 0969 Oct, [facility] [id number] [place] [address] 78617- 1885 16 Nov, 2015 [facility] [id number] [place] [address] 47926- 0608 15 Nov, 2015 Hypothyroid E03.9 and Chronic hepatitis K73.9 [facility] [id number] [place] [address] 76324- 4677 Oct, [facility] [id number] [place] [address] 33318- 2982 08 Nov, 2015 Restless legs syndrome G25.81 ; Chronic hepatitis K73.9 ; Hypertension I10 ; Hypothyroid E03.9 and Breast cancer screening Z12.39 [facility] [id number] [place] [address] 50261- 9756 Oct, [facility] [id number] [place] [address] 23112- 5117 Oct, [facility] [id number] [place] [address] 30739- 2119 Oct, [facility] [id number] [place] [address] 69362- 1479 Oct, [facility] [id number] [place] [address] 78077- 6806 Oct, [facility] [id number] [place] [address] 49399- 1414 10 Oct, 2015 [facility] [id number] [address] Oct, [facility] [id number] [place] [address] 62076- 7467 Sep, [facility] [id number] [place] [address] 88745- 4758 Sep, Attention-deficit hyperactivity disorder, predominantly inattentive type F90.0 and Major depressive disorder in partial remission F32.4 [facility] [id number] [place] [address] 39256- 1962 Sep, [facility] [id number] [place] [address] 74215- 2873 Aug, [facility] [id number] [place] [address] 69811- 7912 Aug, [facility] [id number] [place] [address] 99471- 1151 Aug, Major depressive disorder, recurrent, mild F33.0 ; Attention -deficit hyperactivity disorder, unspecified type F90.9 and Generalized anxiety disorder F41.1 [facility] [id number] [place] [address] 34266- 4631 08 Aug, 2015 Chronic hepatitis K73.9 ; Primary osteoarthritis of both knees M17.0 and Neuralgia M79.2 [facility] [id number] [address] Jul, [facility] [id number] [address]686 Jul, [facility] [id number] [place] [address] 37980- 3414 Jul, [facility] [id number] [address]296 Jul, [facility] [id number] [place] [address] 86608- 1584 Jun, [facility] [id number] [place] [address] 58340- 9066 Jun, Bronchitis J40 and Encounter for immunization Z23 [facility] [id number] [place] [address] 22685- 6400 30 May, 2015 [facility] [id number] [place] [address] 69894- 1362 May, [facility] [address] 02713- 0781 May, [facility] [address] [address]16- 4498 May, Hypokalemia 276.8 [facility] [id number] [place], [place] [address] 67072- 2057 08 May, 2015 Major depressive disorder, recurrent episode, mild 296.31 ; Attention deficit disorder of childhood without mention of hyperactivity 314.00 and Generalized anxiety disorder 300.02 [facility] [id number] [place] [address] 99434- 5448 May, Hypertension 401.9 and Hypokalemia 276.8 [facility] [id number] [place] [address] 21171- 7826 May, [facility] [id number] [place] [address] 38067- 2554 Apr, [facility] [id number] [place] [address] 18093- 8989 Apr, [facility] [id number] [place] [address] 77523- 4934 Apr, [facility] [id number] [place] [address] 99360- 0519 Apr, [facility] [id number] [place] [address] 72541- 3534 Mar, [facility] [address] [address]60- 3024 Mar, [facility] [id number] [address] 9554 Mar, [facility] [id number] [place] [address] [id number]- 4573 Mar, [facility] [id number] [place] [address] 54615- 6955 Mar, Arthritis of both knees 716.96 ; Hepatitis B 070.30 ; Hypertension 401.9 ; Carpal tunnel syndrome 354.0 and Cubital tunnel syndrome 354.2 [facility] [id number] [place] [address] 94788- 1464 Mar, [facility] [id number] [place] [address] 03930- 4266 Mar, [facility] [id number] [place] [address] 90052- 9252 Mar, 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, chronic, without mention of hepatitis delta 070.32 ; Chronic hepatitis C without mention of hepatic coma 070.54 and Major depressive disorder, recurrent episode, moderate 296.32 [facility] [id number] [place] [address] 61343- 6652 Jan, [facility] [id number] [address] 3934 Jan, Major depressive disorder, recurrent episode, mild 296.31 and Attention deficit disorder of childhood without mention of hyperactivity 314.00 [facility] [id number] [address] 2350 Jan, [facility] [id number] [place] [address] 07098- 3646 Jan, [facility] [id number] [address]- 0404 December, Attention deficit disorder of childhood without mention of hyperactivity 314.00 ; Major depressive disorder, recurrent episode, mild 296.31 and Generalized anxiety disorder 300.02 [facility] [place] [facility] [address] [id number] [place] [address]- 2810 08 Dec, 2014 [facility] [place] [facility] [address] [id number] [place] [address]- 2184 14 Dec, 2014 [facility] [place] [facility] [address] [facility] [id number] [place] [address]- 6612 13 Dec, 2014 [facility] [place] [facility] [address] [id number] [place] [address]- 4231 19 Oct, 2014 [facility] [place] [facility] [address] [id number] [place] [address]- 2303 19 Oct, 2014 [facility] [place] [facility] [address] [id number] [place] [address]- 0873 18 Oct, 2014 [facility] [place] [facility] [address] [facility] [id number] [place] [address]- 2949 18 Oct, 2014 [facility] [place] [facility] [address] [facility] [id number], [place] [address]- 0420 18 Oct, 2014 [facility] [place] [facility] [address] [facility] [id number] [place] [address]- 2507 18 Oct, 2014 [facility] [place] [facility] [address] [facility] [id number], [place] [address]- 7021 16 Oct, 2014 [facility] [place] [facility] [address] [facility] [id number], [place] [address]- 6123 13 Oct, 2014 [facility] [place] [facility] [address] [facility] [id number], [place] [address]- 9270 13 Oct, 2014 [facility] [place] [facility] [address] [facility] [id number], [place] [address]- 6072 12 Oct, 2014 [facility] [place] [facility] [address] [facility] [id number], [place] [address]- 4135 12 Oct, 2014 [facility] [place] [facility] [address] [facility] [id number], [place] [address]- 7800 10 Oct, 2014 [facility] [place] [facility] [address] [facility] [id number], [place] [address]- 9057 Oct, [facility] [place] [facility] [address] [id number] [place] [address]- 8723 Oct, 2014 [facility] [place] [facility] [address] [id number] [place] [address]- 0121 Oct, 2014 [facility] [place] [facility] [address] [facility] [id number] [place] [address]- 5396 Oct, 2014 [facility] [place] [facility] [address] [id number] [place] [address]- 7563 Oct, 2014 [facility] [place] [facility] [address] [id number] [place] [address]- 3168 25 Oct, 2014 [facility] [place] [facility] [address] [facility] [id number] [place] [address]- 1563 19 Oct, 2014 [facility] [place] [facility] [address] [facility] [id number] [place] [address]- 7404 18 Oct, 2014 [facility] [place] [facility] [address] [facility] [id number] [place] [address]- 5534 17 Oct, 2014 [facility] [place] [facility] [address] [facility] [id number] [place] [address]- 0985 17 Oct, 2014 [facility] [place] [facility] [address] [facility] [id number] [place] [address]- 1449 11 Oct, 2014 [facility] [place] [facility] [address] [facility] [id number] [place] [address] 2546 11 Oct, 2014 [facility] [place] [facility] [address] [facility] [id number] [place] [address]- 2541 11 Oct, 2014 [facility] [place] [facility] [address] [id number] [place] [address]- 2205 11 Oct, 2014 [facility] [place] [facility] [address] [facility] [id number] [place] [address]- 2546 10 Oct, 2014 [facility] [place] [facility] [address] [facility] [id number] [place] [address]- 5026 Oct, [facility] [place] [facility] [address] [id number] [place] [address]- 3879 Sep, [facility] [place] [facility] [address] [id number] [place] [address]- 1277 Sep, [facility] [place] [facility] [address] [id number] [place] [address]- 1432 Sep, [facility] [place] [facility] [address] [id number] [place] [address]- 8708 Sep, [facility] [place] [facility] [address] [id number] [place] [address]- 7467 Sep, [facility] [place] [facility] [address] [id number] [place] [address]- 8483 Sep, [facility] [place] [facility] [address] [id number] [place] [address]- 1042 Sep, [facility] [place] [facility] [address] [id number] [place] [address]- 3974 Sep, [facility] [place] [facility] [address] [id number] [place] [address]- 0967 Sep, [facility] [place] [facility] [address] [id number] [place] [address]- 9452 Sep, [facility] [place] [facility] [address] [id number], [place] [address]- 3886 Sep, [facility] [place] [facility] [address] [id number], [place] [address]- 1117 Sep, [facility] [place] [facility] [address] [id number] [place] [address]- 5750 Sep, [facility] [place] [facility] [address] [id number], [place] [address]- 7023 Sep, [facility] [place] [facility] [address] [id number] [place] [address]- 2477 Sep, [facility] [place] [facility] [address] [id number] [place] [address]- 8096 Sep, [facility] [place] [facility] [address] [id number] [place] 7716 Aug, [facility] [place] [facility] [address] [id number] [place] [address]- 9236 Aug, [facility] [place] [facility] [address] [id number] [place] [address]- 2046 Aug, [facility] [place] [facility] [address] [id number] [place] [address]- 1936 Aug, [facility] [place] [facility] [address] [id number] [place] [address]- 5023 Aug, [facility] [place] [facility] [address] [id number] [place] [address]- 6084 Aug, [facility] [place] [facility] [address] [id number] [place] [address]- 4939 Aug, [facility] [place] [facility] [address] [id number] [place] [address]- 6989 20 Aug, 2014 [facility] [place] [facility] [address] [id number] [place] [address]- 0126 19 Aug, 2014 [facility] [place] [facility] [address] [id number] [place] [address]- 6753 18 Aug, 2014 [facility] [place] [facility] [address] [id number] [place] [address]- 2580 18 Aug, 2014 [facility] [place] [facility] [address] [id number] [place] [address]- 2381 16 Aug, 2014 [facility] [place] [facility] [address] [id number] [place] 8606 16 Aug, 2014 [facility] [place] [facility] [address] [id number] [place] [address]- 5826 15 Aug, 2014 [facility] [place] [facility] [address] [id number] [place] 5029 15 Aug, 2014 [facility] [place] [facility] [address] [id number] [place] [address]- 8665 Aug, [facility] [place] [facility] [address] [id number] [place] [address]- 0486 Aug, [facility] [place] [facility] [address] [id number] [place] [address]- 1138 Aug, [facility] [place] [facility] [address] [id number] [place] [address]- 8570 Aug, [facility] [place] [facility] [address] [id number] [place] [address]- 7771 Aug, [facility] [place] [facility] [address] [id number] [place] [address]- 1973 Aug, [facility] [place] [facility] [address] [id number] [place] [address]- 6467 Aug, [facility] [place] [facility] [address] [id number] [place] [address]- 5168 Aug, [facility] [place] [facility] [address] [id number] [place] [address]- 3386 Aug, [facility] [place] [facility] [address] [id number] [place] [address]- 0603 Aug, [facility] [place] [facility] [address] [id number] [place] [address]- 3871 Jul, [facility] [place] [facility] [address] [id number] [place] [address]- 7567 Jul, [facility] [place] [facility] [address] [id number] [place] [address]- 0825 Jul, [facility] [place] [facility] [address] [id number] [place] [address]- 4540 Jul, [facility] [place] [facility] [address] [id number] [place] [address]- 3096 Jul, [facility] [place] [facility] [address] [id number] [place] [address]- 8183 Jul, [facility] [place] [facility] [address] [id number] [place] [address]- 2082 Jun, [facility] [place] [facility] [address] [id number] [place] 1200 Jun, [facility] [place] [facility] [address] [id number] [place] [address]- 2023 Jun, [facility] [place] [facility] [address] [id number] [place] [address]- 2647 Jun, [facility] [place] [facility] [address] [id number] [place] [address]- 8707 Jun, [facility] [place] [facility] [address] [id number] [place] [address]- 0746 Jun, [facility] [place] [facility] [address] [id number] [place] [address]- 9679 Jun, [facility] [place] [facility] [address] [id number] [place] [address]- 9024 Jun, [facility] [place] [facility] [address] [id number] [place] [address]- 9991 16 May, 2014 [facility] [place] [facility] [address] [id number] [place] [address]- 2590 16 May, 2013 [facility] [place] [facility] [address] [id number] [place] [address]- 1223 15 May, 2014 [facility] [place] [facility] [address] [id number] [place] [address]- 2463 15 May, 2013 [facility] [place] [facility] [address] [id number] [place] [address]- 0098 08 Sep, 2013 [facility] [place] [facility] [address] [id number] [place] [address]- 1367 08 May, 2013 [facility] [place] [facility] [address] [id number] [place] [address]- 9824 08 May, 2013 [facility] [place] [facility] [address] [id number] [place] [address]- 0603 May, [facility] [place] [facility] [address] [id number] [place] [address]- 8753 Apr, [facility] [place] [facility] [address] [id number] [place] [address]- 3117 Apr, [facility] [place] [facility] [address] [id number] [place] [address]- 1892 Apr, [facility] [place] [facility] [address] [id number] [place] [address]- 5358 Apr, [facility] [place] [facility] [address] [id number] [place] [address]- 2086 Apr, [facility] [place] [facility] [address] [id number] [place] [address]- 3508 Apr, [facility] [place] [facility] [address] [id number] [place] [address]- 4208 Apr, [facility] [place] [facility] [address] [id number] [place] [address]- 1693 Apr, [facility] [place] [facility] [address] [id number] [place] [address]- 2081 Apr, [facility] [place] [facility] [address] [id number] [place] [address]- 0199 Apr, [facility] [place] [facility] [address] [id number] [place] [address]- 5944 Apr, [facility] [place] [facility] [address] [id number] [place] [address]- 7680 Apr, [facility] [place] [facility] [address] [id number] [place] [address]- 1607 Apr, [facility] [place] [facility] [address] [id number] [place] [address]- 9537 Mar, [facility] [place] [facility] [address] [id number] [place] [address]- 9657 Mar, [facility] [place] [facility] [address] [id number] [place] [address]- 9282 Mar, [facility] [place] [facility] [address] [id number] [place] [address]- 6815 Mar, [facility] [place] [facility] [address] [id number] [place] [address]- 8944 Jan, [facility] [place] [facility] [address] [id number] [place] [address]- 0021 Jan, [facility] [place] [facility] [address] [id number] [place] [address]- 7525 December, [facility] [place] [facility] [address] [id number] [place] [address]- 1606 December, [facility] [place] [facility] [address] [id number] [place] [address]- 2265 December, [facility] [place] [facility] [address] [id number] [place] [address]- 7176 December, [facility] [place] [facility] [address] [id number] [place] [address]- 6584 December, [facility] [place] [facility] [address] [id number] [place] [address]- 1301 December, [facility] [place] [facility] [address] [id number] [place] [address]- 6262 December, [facility] [place] [facility] [address] [id number] [place] [address]- 3639 December, [facility] [place] [facility] [address] [id number] [place] [address]- 3970 Dec, [facility] [place] [facility] [address] [id number] [place] [address]- 6347 Dec, [facility] [place] [facility] [address] [id number] [place] [address]- 0555 Dec, [facility] [place] [facility] [address] [id number], [place] [address]- 2789 Dec, [facility] [place] [facility] [address] [id number] [place] [address]- 4668 Oct, [facility] [place] [facility] [address] [facility] [id number] [place] 2350 Oct, [facility] [place] [facility] [address] [facility] [id number] [place] [address]- 3397 Oct, [facility] [place] [facility] [address] [facility] [id number] [place] [address]- 6208 Oct, [facility] [place] [facility] [address] [facility] [id number] [place] [address]- 5411 Oct, [facility] [place] [facility] [address] [facility] [id number] [place] [address]- 9789 Oct, [facility] [place] [facility] [address] [facility] [id number] [place] [address]- 2845 Oct, [facility] [place] [facility] [address] [facility] [id number] [place] [address]- 0646 Oct, [facility] [place] [facility] [id number] [place] [address]- 5570 Oct, [facility] [place] [facility] [address] [facility] [id number] [place] [address]- 7456 Oct, [facility] [place] [facility] [address] [facility] [id number] [place] [address]- 9082 Oct, [facility] [place] [facility] [address] [facility] [id number] [place] [address]- 8760 Oct, [facility] [place] [facility] [address] [facility] [id number] [place] [address]- 9942 Oct, [facility] [place] [facility] [address] [facility] [id number] [place] [address]- 5762 Oct, [facility] [place] [facility] [address] [facility] [id number] [place] [address]- 1443 Oct, [facility] [place] [facility] [address] [id number] [place] [address]- 7878 Oct, [facility] [place] [facility] [address] [id number] [place] [address]- 8836 Oct, [facility] [place] [facility] [address] [id number] [place] [address]- 5929 Oct, [facility] [place] [facility] [address] [id number] [place] [address]- 0468 Oct, [facility] [place] [facility] [address] [id number] [place] [address]- 3082 Oct, [facility] [place] [facility] [address] [id number] [place] [address]- 0446 Oct, [facility] [place] [facility] [address] [id number] [place] [address]- 2588 Oct, [facility] [place] [facility] [address] [id number] [place] [address]- 4791 Sep, [facility] [place] [facility] [address] [id number] [place] [address]- 2711 Sep, [facility] [place] [facility] [address] [id number] [place] [address]- 0182 Sep, [facility] [place] [facility] [address] [id number] [place] [address]- 3746 Sep, [facility] [place] [facility] [address] [id number] [place] [address]- 6228 Aug, [facility] [place] [facility] [address] [id number] [place] [address]- 9793 Aug, [facility] [place] [facility] [address] [id number] [place] [address]- 0900 Aug, [facility] [place] [facility] [address] [id number] [place] [address]- 7968 Aug, [facility] [place] [facility] [address] [id number] [place] [address]- 8331 Aug, [facility] [address] [id number] [place] [address]- 4297 Aug, [facility] [address] [id number] [place] [address] Aug, [facility] [address] [id number] [place] [address] Aug, [facility] [address] [id number] [place] [address] Aug, [facility] [address] [id number] [place] [address] Jul, [facility] [address] [id number] [place] [address] Jul, [facility] [address] [id number] [place] [address] Jul, [facility] [address] [id number] [place] [address] Jul, [facility] [address] [id number] [place] [address] Jul, [facility] [address] [facility] [id number] [place] [address] Jul, [facility] [address] [id number] [place] [address] Jul, [facility] [place] [facility] [address] [id number] [place] [address] Jul, [facility] [place] [facility] [address] [id number] [place] [address] Jun, [facility] [place] [facility] [address] [id number] [place] [address] 7966 Jun, [facility] [place] [facility] [address] [id number] [place] [address] Jun, [facility] [place] [facility] [address] [id number] [place] [address] Jun, [facility] [place] [facility] [address] [id number] [place] [address] 11[address] Jun, [facility] [place] [facility] [address] [id number] [place] [address] Jun, [facility] [place] [facility] [address] [id number] [place] [address] 65[address] Jun, [facility] [place] [facility] [address] [id number] [place] [address] 7040 Jun, [facility] [place] [facility] [address] [id number] [place] [address] 30 May, 2013 [facility] [place] [facility] [address] [id number] [place] [address] 26 May, 2013 [facility] [place] [facility] [address] [id number] [place] [address]- 7866 23 May, 2013 [facility] [place] [facility] [address] [id number] [place] [address]24 19 May, 2013 [facility] [place] [facility] [address] [id number] [place] [address]45 12 May, 2013 [facility] [place] [facility] [address] [id number] [place] [address] May, [facility] [place] [facility] [address] [id number], [place] [address] Apr, [facility] [place] [facility] [address] [id number] [place] [address] 1664 Apr, [facility] [place] [facility] [address] [id number] [place] [address] 6260 Apr, [facility] [place] [facility] [address] [id number], [place] [address] Apr, [facility] [place] [facility] [address] [id number], [place] [address] 2012 Apr, [facility] [place] [facility] [address] [id number] [place] [address] 4027 Apr, [facility] [place] [facility] [address] [id number] [place] [address] Apr, [facility] [place] [facility] [address] [id number] [place] [address] Mar, [facility] [place] [facility] [address] [id number] [place] [address]285 Mar, [facility] [place] [facility] [address] [id number] [place] [address] 1544 Mar, [facility] [place] [facility] [address] [id number] [place] [address] 3088 Mar, [facility] [place] [facility] [address] [id number] [place] [address] 6967 Mar, [facility] [place] [facility] [address] [id number] [place] [address] Mar, [facility] [place] [facility] [address] [id number] [place] [address] 1442 Mar, [facility] [place] [facility] [address] [id number] [place] [address] Jan, [facility] [place] [facility] [address] [id number] [place] [address] Jan, [facility] [place] [facility] [address] [id number] [place] [address] 8745 Jan, [facility] [place] [facility] [address] [id number] [place] [address] Jan, [facility] [place] [facility] [address] [id number] [place] [address]- 75[address] Jan, [facility] [place] [facility] [address] [id number] [place] [address]- [address] Jan, [facility] [place] [facility] [address] [id number] [place] [address]- 2836 Jan, [facility] [address] [id number] [place] [address]- 12[address] December, [facility] [address] [id number] [place] [address]- [address] December, [facility] [address] [id number] [place] [address]- 35[address] December, [facility] [address] [id number] [place] [address]- [address] December, [facility] [address] [id number] [place] [address]- [address] Dec, [facility] [address] [id number] [place] [address]- 1718 Dec, [facility] [address] [id number] [place] [address]- 3570 Dec, [facility] [address] [id number] [place] [address]- 4096 Oct, [facility] [address] [id number] [place] [address] 1334 Oct, [facility] [address] [id number] [place] [address]- 466[address] Oct, [facility] [address] [id number] [place] [address] Oct, [facility] [address] [id number] [place] [address]- [address] Oct, [facility] [address] [id number] [place] [address]- [address]596 Oct, [facility] [address] [id number] [place] [address]- 2546 Oct, [facility] [address] [id number] [place] [address] Oct, [facility] [place] [facility] [address] [id number] [place] [address] Oct, [facility] [place] [facility] [address] [id number] [place] [address] Oct, [facility] [place] [facility] [address] [facility] [id number] [place] [address] Oct, [facility] [place] [facility] [address] [id number] [place] [address] Sep, [facility] [place] [facility] [address] [id number] [place] [address] Sep, [facility] [place] [facility] [address] [id number] [place] [address] Sep, [facility] [place] [facility] [address] [id number] [place] [address] Aug, [facility] [place] [facility] [address] [id number] [place] [address] 150[address] Aug, [facility] [place] [facility] [address] [id number] [place] [address]686 Aug, [facility] [place] [facility] [address] [facility] [id number] [place] [address] Aug, [facility] [place] [facility] [address] [id number], [place] [address] Jul, [facility] [place] [facility] [address] [id number], [place] [address] Jul, [facility] [place] [facility] [address] [id number] [place] [address] Jul, [facility] [place] [facility] [address] [facility] [id number] [place] [address] Jul, [facility] [place] [facility] [address] [facility] [id number] [place] [address] 47[address] Jul, [facility] [place] [facility] [address] [id number] [place] [address]598 Jul, [facility] [place] [facility] [address] [id number] [place] [address] Jul, [facility] [place] [facility] [address] [id number] [place] [address]37 Jul, [facility] [place] [facility] [address] [id number] [place] [address]294 Jun, [facility] [place] [facility] [address] [id number] [place] [address]121 Jun, [facility] [place] [facility] [address] [id number] [place] [address] Jun, [facility] [place] [facility] [address] [id number] [place] [address] Jun, [facility] [place] [facility] [address] [id number] [place] [address] 3[address] Jun, [facility] [place] [facility] [address] [id number] [place] [address]25 26 May, 2012 [facility] [place] [facility] [address] [id number] [place] [address] 4699 20 May, 2012 [facility] [place] [facility] [address] [id number] [place] [address]32 18 May, 2012 [facility] [place] [facility] [address] [id number] [place] [address] 09 May, 2012 [facility] [place] [facility] [address] [id number] [place] [address]- [address]296 04 May, 2012 [facility] [place] [facility] [address] [id number] [place] [address]- 6067 30 Apr, 2012 [facility] [place] [facility] [address] [id number] [place] [address] 1594 29 Apr, 2012 [facility] [place] [facility] [address] [id number] [place] [address]- 1471 16 Apr, 2012 [facility] [place] [facility] [address] [id number] [place] [address] 4[address] Apr, [facility] [place] [facility] [address] [id number] [place] [address] 8884 Apr, [facility] [place] [facility] [address] [id number] [place] [address]26 Apr, [facility] [place] [facility] [address] [id number] [place] [address] 4942 Apr, [facility] [place] [facility] [address] [id number] [place] [address] Mar, [facility] [place] [facility] [address] [id number] [place] [address] 7735 Mar, [facility] [place] [facility] [address] [id number] [place] [address] 99[address] Mar, [facility] [place] [facility] [address] [id number] [place] [address]255 Mar, [facility] [place] [facility] [address] [id number] [place] [address] Jan, [facility] [place] [facility] [address] [id number] [place] [address] 3360 Jan, [facility] [place] [facility] [address] [id number] [place] [address] 3[address] Jan, [facility] [place] [facility] [address] [id number] [place] [address]- 2529 Jan, [facility] [place] [facility] [address] [id number] [place] [address] 8459 Jan, [facility] [place] [facility] [address] [id number] [place] [address] 0982 Jan, [facility] [place] [facility] [address] [id number] [place] [address] December, [facility] [place] [facility] [address] [id number] [place] [address]226 December, [facility] [address] [id number] [place] [address]- 7286 December, [facility] [place] [facility] [address] [id number] [place] [address]- 1476 December, [facility] [address] [id number] [place] [address]- 5876 Dec, [facility] [place] [facility] [address] [id number] [place] [address]- 0106 Dec, [facility] [address] [id number] [place] [address] 9039 Oct, [facility] [place] [facility] [address] [id number] [place] [address]- 6764 Oct, [facility] [id number] [place] [address] Oct, [facility] [place] [facility] [address] [facility] [id number] [place] [address]- 4787 Oct, [facility] [address] [facility] [id number] [place] [address] 0601 Oct, [facility] [place] [facility] [address] [facility] [id number] [place] [address]- 4432 Oct, [facility] [place] [facility] [address] [id number] [place] [address]- 8151 Oct, [facility] [place] [facility] [address] [facility] [id number] [place] [address] 1993 Oct, [facility] [place] [facility] [address] [id number] [place] [address]- 1542 Oct, [facility] [place] [facility] [address] [id number] [place] [address]- 8385 Oct, [facility] [place] [facility] [address] [facility] [id number] [place] [address]- 7696 Oct, [facility] [place] [facility] [address] [id number] [place] [address]- 0143 Sep, [facility] [place] [facility] [address] [id number] [place] [address]- 7136 Sep, [facility] [place] [facility] [address] [id number] [place] [address]- 8796 Sep, [facility] [place] [facility] [address] [id number] [place] [address]- 3356 Sep, [facility] [place] [facility] [address] [id number] [place] [address]- 5934 Sep, [facility] [place] [facility] [address] [id number] [place] [address]- 8514 Sep, [facility] [place] [facility] [address] [id number] [place] [address]- 8457 Sep, [facility] [place] [facility] [address] [id number] [place] [address]- 6467 Sep, [facility] [place] [facility] [address] [id number] [place] [address]- 6853 Aug, [facility] [place] [facility] [address] [id number] [place] [address]- 2052 Aug, [facility] [place] [facility] [address] [id number] [place] [address]- 8676 Aug, [facility] [place] [facility] [address] [id number] [place] [address]- 2591 Jul, [facility] [place] [facility] [address] [id number] [place] [address]- 2121 Jul, [facility] [place] [facility] [address] [id number] [place] [address]- 2875 18 Jul, 2011 [facility] [place] [facility] [address] [id number] [place] [address]- 7426 17 Jul, 2011 [facility] [place] [facility] [address] [id number] [place] [address]- 3816 08 Jul, 2011 [facility] [place] [facility] [address] [id number] [place] [address]- 5095 02 Jul, 2011 [facility] [place] [facility] [address] [id number] [place] [address]- 4906 31 Jun, 2011 [facility] [place] [facility] [address] [id number] [place] [address]- 6936 20 Jun, 2011 [facility] [place] [facility] [address] [id number] [place] [address]- 6512 20 Mar, 2011 [facility] [place] [facility] [address] [id number] [place] [address]- 5528 14 Dec, 2010 [facility] [place] [facility] [address] [id number] [place] [address]- 9561 14 Oct, 2010 [facility] [place] [facility] [address] [id number] [place] [address]- 9851 06 Aug, 2010 [facility] [place] [facility] [address] [id number], [place] [address]- 2280 30 Jul, 2010 [facility] [place] [facility] [address] [id number] [place] [address]- 5853 11 Jul, 2010 [facility] [place] [facility] [address] [id number] [place] [address]- 3519 Jul, [facility] [place] [facility] [address] [id number], [place] [address]- 8732 09 Jul, 2010 [facility] [place] [facility] [address] [id number], [place] [address]- 2520 08 Jul, 2010 [facility] [place] [facility] [address] [id number] [place] [address]- 1280 22 Aug, 2009 [facility] [place] [facility] [address] [id number], [place] [address]- [address]79 15 Aug, 2009 [facility] [place] [facility] [address] [id number] [place] [address]- 7838 14 Aug, 2009 [facility] [place] [facility] [address] [facility] [id number], [place] [address]- [address] Aug, [facility] [address] [facility] [id number][place] [address] Jul, [facility] [address] [id number] [address] Jul, [facility] [address] [facility] [id number], [place] [address]- [address] Jul, [facility] [address] [id number], [place] [address]- 7616 Jul, [facility] [address] [id number] [address] Jun, [facility] [address] [id number] [address]- [address] Jun, IMMUNIZATIONS No Known Immunizations SOCIAL HISTORY [...]
--- OUTSIDE RECORDS SUMMARY | 2018-03-17 11:24 | XMS REPORT ---
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 Role Phone 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 Unavailable PROBLEMS Type Condition ICD9-CM Code QLU04-SR Code Onset Dates Condition Status SNOMED Code Problem 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 Active 64065848 Problem Attention-deficit hyperactivity disorder, predominantly inattentive type F90.0 Active 64821021 Problem Obstructive sleep apnea G47.33 Active 02432911 Problem Primary insomnia F51.01 Active 9207142 Problem Neuralgia M79.2 Active 89805494 Problem Cannabis use disorder, mild, abuse F12.10 Active 63616631 Problem Folic acid deficiency E53.8 Active 535585819 Problem Restless legs G25.81 Active 10808034 Problem Major depressive disorder, recurrent, mild F33.0 Active 93596935 Problem Generalized anxiety disorder F41.1 Active 54056099 Problem Major depressive disorder, recurrent episode, moderate F33.1 Active 403787110 Problem Hypertension I10 Active 74123868 Problem Hyperlipidemia E78.5 Active 48985008 Problem Primary osteoarthritis of both knees M17.0 Active 331060510 Problem Chronic hepatitis K73.9 Active 89785643 Problem Low back pain M54.5 Active 600671346 Problem Chronic viral hepatitis B without delta-agent B18.1 Active 603472997 Problem Insomnia G47.00 Active 609656521 Problem Hypothyroid E03.9 Active 87808118 Problem Depression, major, recurrent, mild F33.0 Active 049352220 Problem Obesity due to excess calories, unspecified obesity severity E66.09 Active 994284258 ALLERGIES No Information ENCOUNTERS Encounter Location Date Diagnosis [facility] [address] [facility] [id number] [address] December, [facility] [address] [facility] [id number] [address] December, [facility] [id number] [place] [address] 43899- 5240 Dec, Bone pain M89.8X9 [facility] [id number] [place] [address] 67850- 6287 Dec, [facility] [address] 89696- 3459 Oct, [facility] [address] [address]- 2735 Oct, Syncope, unspecified syncope type R55 ; Primary insomnia F51.01 ; Dry mouth R68.2 and Cannabis use disorder, mild, abuse F12.10 [facility] [id number] [place] [address] 91802- 4834 Oct, [facility] [address] 60959- 3282 Sep, [facility] [address] 36472- 6876 Sep, [facility] [address] 49393- 3647 Sep, [facility] [id number] [place] [address] [id number] Sep, Dental examination Z01.20 [facility] [address] 73739- 8892 Sep, Dental examination Z01.20 [facility] [id number] [place] [address] 43226- 6472 Sep, Sinus congestion R09.81 ; Mouth sores K13.79 ; Low back pain M54.5 and Mouth swelling R22.0 [facility] [id number] [place] [address] 38122- 1221 Aug, Low back pain M54.5 [facility] [address] 45292- 2679 Aug, Low back pain M54.5 [place] [address] [address]21- 5025 Jul, [place] [address] [place] [address]607- 9525 Jul, 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 ; Encounter for immunization Z23 ; Hypothyroid E03.9 ; Decreased renal function N28.9 and Muscle cramps R25.2 [place] [address] 50780- 8223 Jul, [place] [address] 23152- 1202 Jul, [place] [address] 84170- 5138 Jul, [address] [address]76- 3829 Jul, Major depressive disorder, recurrent, mild F33.0 [place] [address] 17374- 8568 Jul, Acquired cyst of kidney N28.1 ; Acidosis E87.2 and Hyperkalemia E87.[address] 09669- 5062 Jul, Major depressive disorder, recurrent, mild F33.0 ; Attention -deficit hyperactivity disorder, predominantly inattentive type F90.0 and Generalized anxiety disorder F41.1 [place] [id number] [place] [address] 62402- 9858 Jul, Low back pain M54.[address] 58504- 0259 Jun, Cough R05 ; Low back pain M54.5 and Pre-syncope R55 [address] 32517- 2854 Jun, Low back pain M54.5 [facility] [address] [id number] 04 Jun, 2017 Dental caries K02.9 [facility] [id number] [place] [address] 85959- 0368 Jun, [facility] [id number] [place] [address] 68560- 9475 Jun, Major depressive disorder, recurrent, mild F33.0 ; Attention -deficit hyperactivity disorder, predominantly inattentive type F90.0 and Generalized anxiety disorder F41.1 [facility] [id number] [place] [address] 90710- 4204 13 May, 2017 Vertigo R42 ; Confusion R41.0 ; Weakness R53.1 and Vision changes H53.9 [facility] [id number] [place] [address] 41241- 1872 May, [facility] [id number] [place] [address] 02668- 7609 May, [facility] [id number] [place] [address] 84888- 2899 08 May, 2017 Low back pain M54.5 [facility] [id number] [place] [address] 47819- 1309 05 May, 2017 Major depressive disorder, recurrent, mild F33.0 ; Attention -deficit hyperactivity disorder, predominantly inattentive type F90.0 and Generalized anxiety disorder F41.1 [facility] [address] [place] [address] 81565- 0532 May, [facility] [id number] [place] [address] 70225- 1487 May, Acute worsening of stage 3 chronic kidney disease N18.3 [facility] [address] [place] [address] 47387- 9416 Apr, [facility] [id number] [place] [address] 11814- 3567 14 Aug, 2017 Acute allergic rhinitis due to pollen, unspecified seasonality J30.1 ; Restless legs G25.81 and Low back pain M54.5 [facility] [address] 01113- 7490 10 Apr, 2017 Primary osteoarthritis of both knees M17.0 [facility] [address] 14673- 9839 Apr, Generalized anxiety disorder F41.1 [facility] [address] 56325- 6269 Apr, Major depressive disorder, recurrent, mild F33.0 ; Attention -deficit hyperactivity disorder, predominantly inattentive type F90.0 and Generalized anxiety disorder F41.1 [facility] [address] 48760- 7757 Apr, [facility] [address] 19990- 5444 Mar, Major depressive disorder, recurrent episode, moderate F33.1 ; Generalized anxiety disorder F41.1 and ADHD, predominantly inattentive type F90.0 [facility] [address] 9[address]25 -0137 Mar, Abscess L02.91 [facility] [address] 39445- 9290 Mar, 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 [facility] [address] 84359- 9188 Mar, Decreased renal function N28.9 [facility] [address] [id number] Mar, Dental examination Z01.20 [facility] [address] 53840- 7032 17 Mar, 2017 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 [facility] [address] 61143- 5278 Mar, 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 [facility] [address] [place] [id number] 14 Mar, 2017 Dental examination Z01.20 and Dental caries K02.9 [place] [id number] [place] [address] 64347- 8465 Mar, Chronic viral hepatitis B without delta-agent B18.1 ; Folic acid deficiency E53.8 ; 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 and Decreased renal function N28.9 [place] [id number] [place] [address] 65371- 0953 Mar, Major depressive disorder, recurrent, mild F33.0 [place] [id number] [place] [address] 53316- 2836 Mar, [place] [id number] [place] [address] 65005- 7557 Mar, Chronic hepatitis K73.9 ; 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 ; Localized edema R60.0 ; Illicit drug use F19.90 ; Vision changes H53.9 and Obesity due to excess calories, unspecified obesity severity E66.09 [place] [id number] [place] [address] 83541- 3796 Jan, Major depressive disorder, recurrent, mild F33.0 [place] [id number] [place] [address] 28781- 2078 Jan, Chronic viral hepatitis B without delta-agent B18.1 [place] [id number] [place] [address] 94690- 6848 Jan, [place] [id number] [place] [address] 76725- 6367 Jan, Weight gain R63.5 ; Hypothyroid E03.9 ; 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 ; Decreased renal function N28.9 and Chronic viral hepatitis B without delta-agent B18.1 [place] [id number] [place] [address] 76014- 6636 December, Major depressive disorder, recurrent, mild F33.0 and Generalized anxiety disorder F41.1 [place] [id number] [address]- 6495 December, Obesity due to excess calories, unspecified obesity severity E66.09 and Folic acid deficiency E53.8 [facility] [id number] [place] [address] 91755- 8934 December, Folic acid deficiency E53.8 [facility] [id number] [place] [address] 42188- 4166 December, Folic acid deficiency E53.8 [facility] [id number] [place] [address] 25328- 9127 December, Obesity due to excess calories, unspecified obesity severity E66.09 [place] [id number] [place] [address] 96351- 0714 December, [place] [id number] [place] [address] 68397- 8112 December, Folic acid deficiency E53.8 [facility] [id number] [place] [address] [id number] December, Encounter for other administrative examinations Z02.89 [place] [id number] [place] [address] 08014- 0201 Dec, [facility] [id number] [place] [address] [id number] Dec, Dental caries K02.9 [place] [address] [place] [address] 43668- 8524 Oct, Bone pain M89.8X9 [place] [id number] [place] [address] 22669- 4565 Oct, Hypothyroid E03.9 [place] [address] [place] [address] 80063- 5787 24 Oct, 2016 Hypothyroid E03.9 [place] [address] [place] [address] 21010- 8650 13 Mar, 2017 Breast cancer screening Z12.39 [facility] [id number] [id number] 08 Oct, 2016 Dental examination Z01.20 [place] [id number] [place] [address] 32614- 5299 Oct, [place] [id number] [place] [address] 52794- 3419 Oct, Major depressive disorder, recurrent, mild F33.0 and Generalized anxiety disorder F41.1 [place] [address] [place] [address] 47084- 4782 Oct, [place] [id number] [place] [address] 12894- 1041 Oct, Hypothyroid E03.9 [place] [id number] [place] [address] 98232- 0919 Sep, Hypothyroid E03.9 ; Chronic viral hepatitis B without delta- agent B18.1 and Folic acid deficiency E53.8 [place] [address] [place] [address] 93580- 0783 Sep, Hypothyroidism, unspecified type E03.9 ; Elevated parathyroid hormone E34.9 and Chronic viral hepatitis B without delta-agent B18.1 [place] [address] [place] [address] 46826- 3001 Sep, [place] [id number] [place] [address] 84860- 6366 Sep, Elevated parathyroid hormone E34.9 [place] [address] [place] [address] 12551- 8098 Sep, [place] [id number] [place] [address] 91218- 6445 Sep, Chronic hepatitis K73.9 ; Bone pain M89.8X9 and Abnormal complete blood count R79.89 [place] [id number] [place] [address] 66067- 0534 Aug, Major depressive disorder, recurrent, mild F33.0 [facility] [id number] [place] [address] 06462- 7332 Aug, Bone pain M89.8X9 [facility] [id number] [place] [address] 37540- 7262 Aug, [facility] [address] 19080- 9151 Jul, Chronic viral hepatitis B without delta-agent B18.1 [place] [address] 58049- 3011 Jul, Hypothyroidism, unspecified type E03.9 [facility] [id number] [place] [address] 37828- 8522 Jul, [place] [address] 74720- 7556 Jul, Chronic hepatitis K73.9 and Hypothyroid E03.9 [facility] [id number] [place] [address] 97543- 3096 Jul, Low back pain M54.5 [place] [id number] [place] [address] 17977- 3920 Jun, Depression, major, recurrent, mild F33.0 and ADD (attention deficit disorder) F90.0 [facility] [id number] [place] [address] 52257- 1098 Jun, [facility] [id number] [place] [address] 99086- 6426 Jun, Low back pain M54.5 [facility] [address] 37532- 6943 Jun, Encounter for immunization Z23 ; Major depressive disorder, recurrent, mild F33.0 and Attention-deficit hyperactivity disorder, predominantly inattentive type F90.0 [facility] [id number] [place] [address] 14986- 3341 Jun, [facility] [address] [place] [address] 78180- 1352 Jun, Low back pain M54.5 [facility] [id number] [place] [address] 20955- 5523 May, [facility] [id number] [place] [address] 34587- 1600 May, [facility] [id number] [place] [address] 85943- 8582 May, Essential (primary) hypertension I10 [facility] [id number] [place] [address] 09657- 8534 May, Low back pain M54.5 [facility] [id number] [place] [address] 73048- 6761 May, Low back pain M54.5 ; Chronic hepatitis K73.9 and Hypothyroid E03.9 [facility] [id number] [place] [address] 20013- 3752 09 May, 2016 Hypothyroidism, unspecified type E03.9 [facility] [id number] [place] [address] 93379- 3787 08 May, 2016 Low back pain M54.5 [facility] [id number] [place] [address] 96517- 2277 May, [facility] [id number] [place] [address] 98685- 2867 May, [facility] [id number] [place] [address] 02568- 9756 May, Major depressive disorder, recurrent, moderate F33.1 ; Generalized anxiety disorder F41.1 ; Insomnia G47.00 and ADD (attention deficit disorder) F90.0 [facility] [address] [place] [address] 74869- 7203 Apr, Low back pain M54.5 [place] [address] [address]- 9617 Apr, [place] [id number] [place] [address] 27232- 6295 Apr, Low back pain M54.5 [place] [id number] [place] [address] 78621- 6016 Apr, Low back pain M54.5 ; Tooth pain K08.8 and Seasonal allergic rhinitis due to pollen J30.1 [place] [id number] [place] [address] 89230- 8324 Apr, Low back pain M54.5 [place] [address] [id number] [place] [address] 97952- 5782 Apr, [facility] Pap smear of vagina R87.622 [place] [id number] [place] [address] 92546- 2787 Apr, Low back pain M54.5 [place] [id number] [place] [address] 17664- 7125 Mar, [place] [id number] [place] [address] 10992- 4087 Mar, Low back pain M54.5 [place] [id number] [place] [address] 92862- 3435 Mar, Encounter for Papanicolaou smear for cervical cancer screening Z12.4 ; Encounter for routine gynecological examination Z01.419 and Breast cancer screening Z12.39 [place] [address] [place] [address] 67621- 6058 18 Mar, 2016 Hypothyroidism, unspecified type E03.9 [place] [id number] [place] [address] 61198- 2054 14 Mar, 2016 Low back pain M54.5 ; Other chronic pain G89.29 ; Hypothyroid E03.9 and Hypothyroidism, unspecified type E03.9 [place] [address] [id number] [place] [address] 28990- 9716 Mar, Major depressive disorder, recurrent, moderate F33.1 and Attention-deficit hyperactivity disorder, predominantly inattentive type F90.0 [facility] [id number] [place] [address] 20302 -2917 Mar, Bronchitis J40 [facility] [id number] [place] [address] 91945- 8375 Jan, [facility] [id number] [place] [address] 72448- 1096 Jan, [facility] [id number] [place] [address] 73168- 6408 Jan, Insomnia G47.00 [facility] [id number] [place] [address] 58839- 2226 December, [facility] [id number] [place] [address] 91107- 4164 December, Major depressive disorder in partial remission F32.4 and Attention-deficit hyperactivity disorder, unspecified type F90.9 [facility] [id number] [place] [address] 61095- 3573 December, [facility] [id number] [place] [address] 75922- 4735 December, [facility] [address] [place] [address] 69166- 0422 Dec, [facility] [id number] [place] [address] 67738- 6617 Dec, Major depressive disorder, recurrent episode, moderate 296.32 and Attention deficit disorder of childhood without mention of hyperactivity 314.00 [place] [id number] [place] [address] 43099- 3593 Dec, Major depressive disorder, recurrent episode, mild 296.31 ; ADD (attention deficit disorder) F90.0 and Hyperlipidemia E78.5 [facility] [id number] [place] [address] 36381- 3646 Dec, Insomnia G47.00 [facility] [address] [address]- 2640 Dec, Attention-deficit hyperactivity disorder, predominantly inattentive type F90.0 [facility] [address] [address]- 2788 Oct, Restless legs syndrome G25.81 [facility] [id number] [place] [address] 03624- 2530 Oct, Hypothyroidism, unspecified type E03.9 [facility] [address] [place] [address] 96731- 0572 Oct, [facility] [id number] [place] [address] 78109- 9602 Oct, [facility] [id number] [place] [address] 74747- 6128 15 Nov, 2015 Hypothyroid E03.9 and Chronic hepatitis K73.9 [facility] [address] [address]- 4419 Oct, [facility] [id number] [place] [address] 35421- 1774 08 Nov, 2015 Restless legs syndrome G25.81 ; Chronic hepatitis K73.9 ; Hypertension I10 ; Hypothyroid E03.9 and Breast cancer screening Z12.39 [facility] [address], [place] [address]- 0221 Oct, [facility] [address] [address]- 0717 Oct, [facility] [address] [address]- 7358 Oct, [facility] [address] [address]- 9805 Oct, [facility] [id number] [address]- 1858 Oct, [facility] [address] [address]- 8184 Oct, [facility] [id number] [place] [address] 71827- 3271 Oct, [facility] [id number] [place] [address] 54270- 7830 Sep, [facility] [id number] [place] [address] 20110- 7916 Sep, Attention-deficit hyperactivity disorder, predominantly inattentive type F90.0 and Major depressive disorder in partial remission F32.4 [facility] [id number] [place] [address] 93319- 6956 Sep, [facility] [id number] [place] [address] 32079- 7303 Aug, [facility] [id number] [place] [address] 92201- 7724 Aug, [facility] [id number] [place] [address] 11873- 1171 Aug, Major depressive disorder, recurrent, mild F33.0 ; Attention -deficit hyperactivity disorder, unspecified type F90.9 and Generalized anxiety disorder F41.1 [facility] [id number] [address] Aug, Chronic hepatitis K73.9 ; Primary osteoarthritis of both knees M17.0 and Neuralgia M79.2 [facility] [id number] [address] Jul, [facility] [id number] [place] [id number]- [id number] Jul, [facility] [id number], [place] [address] Jul, [facility] [id number] [place] [id number]- [address] Jul, [facility] [id number] [place] [address] [id number]- [id number] Jun, [facility] [id number] [place] [address]- [address]305 Jun, Bronchitis J40 and Encounter for immunization Z23 [facility] [address] [id number] 30 May, 2015 [facility] [address] [id number] [place] [address] 75716- 8486 12 May, 2015 [facility] [address] 61541- 6602 May, [facility] [id number] [place] [address] 72619- 0536 May, Hypokalemia 276.8 [facility] [id number] [place] [address] 35950- 1039 08 May, 2015 Major depressive disorder, recurrent episode, mild 296.31 ; Attention deficit disorder of childhood without mention of hyperactivity 314.00 and Generalized anxiety disorder 300.02 [facility] [id number] [place] [address] 98110- 5652 May, Hypertension 401.9 and Hypokalemia 276.8 [facility] [id number] [place] [address] 46764- 3407 May, [facility] [id number] [place] [address] 95675- 4376 Apr, [facility] [id number] [place] [address] 18181- 3311 Apr, [facility] [id number] [place] [address] 86703- 3712 Apr, [facility] [id number] [place] [address] 40640- 9398 Apr, [facility] [id number] [address] 0112 Mar, [facility] [id number] [place] [address] 01737- 5004 Mar, [facility] [id number] [place] [address] 33391- 8390 Mar, [facility] [id number] [place] [address] 01499- 8038 Mar, [facility] [id number] [place] [address] 16494- 0718 Mar, Arthritis of both knees 716.96 ; Hepatitis B 070.30 ; Hypertension 401.9 ; Carpal tunnel syndrome 354.0 and Cubital tunnel syndrome 354.2 [facility] [id number] [place] [address] 77916- 0352 Mar, [facility] [id number] [place] [address] 58389- 2537 Mar, [facility] [id number] [place] [address] 17903- 7561 Mar, 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, chronic, without mention of hepatitis delta 070.32 ; Chronic hepatitis C without mention of hepatic coma 070.54 and Major depressive disorder, recurrent episode, moderate 296.32 [facility] [id number] [address]- 6085 Jan, [facility] [id number] [place] [address] 31667- 1973 Jan, Major depressive disorder, recurrent episode, mild 296.31 and Attention deficit disorder of childhood without mention of hyperactivity 314.00 [facility] [id number] [place] [address] 36486- 1272 Jan, [facility] [id number] [place] [address] 91239- 2983 Jan, [facility] [id number] [place] [address] 66359- 1353 December, Attention deficit disorder of childhood without mention of hyperactivity 314.00 ; Major depressive disorder, recurrent episode, mild 296.31 and Generalized anxiety disorder 300.02 [facility] [address] [facility] [id number], [place] [address]- 3287 08 Dec, 2014 [facility] [address] [id number] [address] 3444 14 Dec, 2014 [facility] [address] [facility] [id number], [place] [address]- 6595 Dec, [facility] [address] [id number] [address]- 3807 19 Oct, 2014 [facility] [address] [id number] [address]- 2477 19 Oct, 2014 [facility] [address] [id number] [address]- 1863 18 Oct, 2014 [facility] [address] [id number] [address]- 3286 18 Oct, 2014 [facility] [address] [id number] [address]- 0083 18 Oct, 2014 [facility] [address] [id number] [address]- 7887 18 Oct, 2014 [facility] [address] [id number] [address]- 0980 16 Oct, 2014 [facility] [address] [id number] [address]- 2818 13 Oct, 2014 [facility] [address] [id number], [place] [address]- 2319 13 Oct, 2014 [facility] [address] [id number] [address]- 7161 Oct, [facility] [address] [id number] 2962 Oct, [facility] [address] [id number] [place] [address]- 7787 10 Oct, 2014 [facility] [place] [facility] [address] [id number] [place] [address]- 1025 10 Oct, 2014 [facility] [place] [facility] [address] [id number] [place] [address]- 2635 05 Oct, 2014 [facility] [place] [facility] [address] [facility] [id number] [place] [address]- 3846 05 Oct, 2014 [facility] [place] [facility] [address] [id number] [place] [address]- 6001 Oct, 2014 [facility] [place] [facility] [address] [id number] [place] [address]- 5441 Oct, 2014 [facility] [place] [facility] [address] [facility] [id number] [place] [address]- 8005 25 Oct, 2014 [facility] [place] [facility] [address] [facility] [id number] [place] [address]- 6424 19 Oct, 2014 [facility] [place] [facility] [address] [facility] [id number] [place] [address]- 7919 18 Oct, 2014 [facility] [place] [facility] [address] [facility] [id number] [place] [address]- 5290 17 Oct, 2014 [facility] [place] [facility] [address] [facility] [id number] [place] [address]- 6456 17 Oct, 2014 [facility] [place] [facility] [address] [facility] [id number], [place] [address]- 6110 Oct, 2014 [facility] [place] [facility] [address] [facility] [id number] [place] [address]- 7463 11 Oct, 2014 [facility] [place] [facility] [address] [facility] [id number] [place] [address]- 4973 Oct, 2014 [facility] [place] [facility] [address] [facility] [id number] [place] [address]- 6526 11 Oct, 2014 [facility] [place] [facility] [address] [facility] [id number], [place] [address]- 7936 Oct, [facility] [address] [id number] [place] [address]- 6158 Oct, [facility] [place] [facility] [address] [id number] [place] [address]- 8641 Sep, [facility] [place] [facility] [address] [id number] [place] [address]- 0353 Sep, [facility] [place] [facility] [address] [id number] [place] [address]- 5966 Sep, [facility] [place] [facility] [address] [id number] [place] [address]- 7096 Sep, [facility] [place] [facility] [address] [id number] [place] [address]- 0155 Sep, [facility] [address] [id number] [place] [address]- 1305 Sep, [facility] [place] [facility] [address] [id number] [place] [address]- 7120 Sep, [facility] [place] [facility] [address] [id number] [place] [address]- 0941 Sep, [facility] [place] [facility] [address] [id number] [place] [address]- 1310 Sep, [facility] [place] [facility] [address] [id number] [place] [address]- 5711 Sep, [facility] [place] [facility] [address] [id number], [place] [address]- 6615 Sep, [facility] [place] [facility] [address] [id number] [place] [address]- 4517 Sep, [facility] [place] [facility] [address] [id number] [place] [address]- 5560 Sep, [facility] [place] [facility] [address] [id number], [place] [address]- 5538 Sep, [facility] [place] [facility] [address] [id number] [place] [address]- 3970 Sep, [facility] [place] [facility] [address] [id number] [place] 5891 Sep, [facility] [place] [facility] [address] [id number] [place] 7481 Aug, [facility] [place] [facility] [address] [id number] [place] [address]- 5516 Aug, [facility] [place] [facility] [address] [id number] [place] [address]- 4295 Aug, [facility] [place] [facility] [address] [id number] [place] [address]- 1012 Aug, [facility] [place] [facility] [address] [id number] [place] [address]- 5645 Aug, [facility] [place] [facility] [address] [id number] [place] [address]- 3140 Aug, [facility] [place] [facility] [address] [id number] [place] [address]- 3953 Aug, [facility] [place] [facility] [address] [id number] [place] [address]- 5032 Aug, [facility] [place] [facility] [address] [id number] [place] [address]- 6930 19 Aug, 2014 [facility] [place] [facility] [address] [id number] [place] [address]- 3836 18 Aug, 2014 [facility] [place] [facility] [address] [id number] [place] [address]- 7273 18 Aug, 2014 [facility] [place] [facility] [address] [id number] [place] 8526 16 Aug, 2014 [facility] [place] [facility] [address] [id number] [place] [address]- 2626 16 Aug, 2014 [facility] [place] [facility] [address] [id number] [place] [address]- 6913 15 Aug, 2014 [facility] [place] [facility] [address] [id number] [place] [address]- 0711 15 Aug, 2014 [facility] [place] [facility] [address] [id number] [place] [address]- 6716 Aug, [facility] [place] [facility] [address] [id number] [place] [address]- 5671 Aug, [facility] [place] [facility] [address] [id number] [place] [address]- 7008 Aug, [facility] [place] [facility] [address] [id number] [place] [address]- 4102 Aug, [facility] [place] [facility] [address] [id number] [place] [address]- 5839 Aug, [facility] [place] [facility] [address] [id number] [place] [address]- 6494 Aug, [facility] [place] [facility] [address] [id number] [place] [address]- 1155 Aug, [facility] [place] [facility] [address] [id number] [place] [address]- 4361 Aug, [facility] [place] [facility] [address] [id number] [place] [address]- 3789 Aug, [facility] [place] [facility] [address] [id number] [place] [address]- 3423 Aug, [facility] [place] [facility] [address] [id number], [place] [address]- 4974 Jul, [facility] [place] [facility] [address] [id number] [place] [address]- 0735 Jul, [facility] [place] [facility] [address] [id number] [place] [address]- 2278 Jul, [facility] [place] [facility] [address] [id number] [place] [address]- 9136 Jul, [facility] [place] [facility] [address] [id number] [place] [address]- 7382 Jul, [facility] [place] [facility] [address] [id number] [place] [address]- 8326 Jul, [facility] [place] [facility] [address] [id number] [place] [address]- 7947 Jun, [facility] [place] [facility] [address] [id number] [place] [address]- 8027 Jun, [facility] [place] [facility] [address] [id number] [place] [address]- 4389 Jun, [facility] [place] [facility] [address] [id number] [place] [address]- 2286 Jun, [facility] [place] [facility] [address] [id number] [place] [address]- 2831 Jun, [facility] [place] [facility] [address] [id number] [place] [address]- 2540 Jun, [facility] [place] [facility] [address] [id number] [place] [address]- 2799 Jun, [facility] [place] [facility] [address] [id number] [place] [address]- 3695 Jun, [facility] [place] [facility] [address] [id number] [place] [address]- 6322 16 May, 2013 [facility] [place] [facility] [address] [id number] [place] [address]- 0079 16 May, 2013 [facility] [place] [facility] [address] [id number] [place] [address]- 4578 15 May, 2013 [facility] [place] [facility] [address] [id number] [place] [address]- 0225 15 May, 2013 [facility] [place] [facility] [address] [id number] [place] [address]- 8665 08 May, 2013 [facility] [place] [facility] [address] [id number] [place] [address]- 4603 May, [facility] [place] [facility] [address] [id number] [place] [address]- 8918 May, [facility] [place] [facility] [address] [id number] [place] [address]- 9462 May, [facility] [place] [facility] [address] [id number] [place] [address]- 3221 Apr, [facility] [place] [facility] [address] [id number] [place] [address]- 7201 Apr, [facility] [place] [facility] [address] [id number] [place] [address]- 3257 Apr, [facility] [place] [facility] [address] [id number] [place] [address]- 1989 Apr, [facility] [place] [facility] [address] [id number] [place] [address]- 3073 Apr, [facility] [place] [facility] [address] [id number] [place] [address]- 0527 Apr, [facility] [place] [facility] [address] [id number] [place] [address]- 6410 Apr, [facility] [place] [facility] [address] [id number] [place] [address]- 1167 Apr, [facility] [place] [facility] [address] [id number] [place] [address]- 9688 Apr, [facility] [place] [facility] [address] [id number] [place] [address]- 0097 Apr, [facility] [place] [facility] [address] [id number] [place] [address]- 8796 Apr, [facility] [place] [facility] [address] [id number] [place] [address]- 9556 Apr, [facility] [place] [facility] [address] [id number] [place] [address]- 7702 Apr, [facility] [place] [facility] [address] [id number] [place] [address]- 1422 Mar, [facility] [place] [facility] [address] [id number] [place] [address]- 7586 Mar, [facility] [place] [facility] [address] [id number] [place] [address]- 7218 Mar, [facility] [place] [facility] [address] [id number] [place] [address]- 1577 Mar, [facility] [place] [facility] [address] [id number] [place] [address]- 6368 Jan, [facility] [place] [facility] [address] [id number] [place] [address]- 7667 Jan, [facility] [place] [facility] [address] [id number] [place] [address]- 6512 December, [facility] [place] [facility] [address] [id number] [place] [address]- 3194 December, [facility] [place] [facility] [address] [id number] [place] [address]- 6925 December, [facility] [place] [facility] [address] [id number] [place] [address]- 8141 December, [facility] [place] [facility] [address] [id number] [place] [address]- 7923 December, [facility] [place] [facility] [address] [id number] [place] [address]- 7016 December, [facility] [place] [facility] [address] [id number] [place] [address]- 2023 December, [facility] [place] [facility] [address] [id number] [place] [address]- 8318 December, [facility] [place] [facility] [address] [id number] [place] [address]- 7910 Dec, [facility] [place] [facility] [address] [id number] [place] [address]- 9494 Dec, [facility] [place] [facility] [address] [id number] [place] [address]- 9488 Dec, [facility] [place] [facility] [address] [id number] [place] [address]- 2622 Dec, [facility] [place] [facility] [address] [id number] [place] [address]- 0371 Oct, [facility] [place] [facility] [address] [id number] [place] [address]- 7575 Oct, [facility] [place] [facility] [address] [id number] [place] [address]- 3280 Oct, [facility] [place] [facility] [address] [id number] [place] [address]- 1962 Oct, [facility] [place] [facility] [address] [id number] [place] [address]- 9838 Oct, [facility] [place] [facility] [address] [id number] [place] [address]- 9590 Oct, [facility] [place] [facility] [address] [id number] [place] [address]- 8141 Oct, [facility] [place] [facility] [address] [id number] [place] [address]- 9858 Oct, [facility] [place] [facility] [address] [id number] [place] [address]- 7468 Oct, [facility] [place] [facility] [address] [id number] [place] [address]- 7850 Oct, [facility] [place] [facility] [address] [id number] [place] [address]- 3583 Oct, [facility] [place] [facility] [address] [id number] [place] [address]- 8500 Oct, [facility] [place] [facility] [address] [id number] [place] [address]- 4743 Oct, [facility] [place] [facility] [address] [id number] [place] [address]- 7722 10 Oct, 2013 [facility] [place] [facility] [address] [id number] [place] [address]- 1064 Oct, [facility] [place] [facility] [address] [id number] [place] [address]- 3946 Oct, 2013 [facility] [place] [facility] [address] [id number] [place] [address]- 2883 Oct, 2013 [facility] [place] [facility] [address] [id number] [place] [address]- 4930 Oct, 2013 [facility] [place] [facility] [address] [id number] [place] [address]- 0206 Oct, [facility] [place] [facility] [address] [id number] [place] [address]- 2332 Oct, [facility] [place] [facility] [address] [facility] [id number] [place] [address]- 3432 Oct, [facility] [place] [facility] [address] [id number] [place] [address]- 5289 Oct, [facility] [place] [facility] [address] [facility] [id number] [place] [address]- 5188 Sep, [facility] [place] [facility] [address] [facility] [id number] [place] [address]- 6071 Sep, [facility] [place] [facility] [address] [facility] [id number] [place] [address]- 4100 Sep, [facility] [place] [facility] [address] [id number] [place] [address]- 1092 Sep, [facility] [place] [facility] [address] [id number] [place] [address]- 7978 Aug, [facility] [place] [facility] [address] [id number] [place] [address]- 9466 Aug, [facility] [place] [facility] [address] [facility] [id number] [place] [address]- 3523 Aug, [facility] [place] [facility] [address] [id number] [place] [address]- 5664 Aug, [facility] [place] [facility] [address] [id number] [place] [address]- 6296 Aug, [facility] [place] [facility] [address] [id number] [place] [address]- 0108 Aug, [facility] [place] [facility] [address] [id number] [place] [address]- 6754 Aug, [facility] [place] [facility] [address] [id number] [place] [address]- 8989 Aug, [facility] [place] [facility] [address] [id number] [place] [address]- 0905 Aug, [facility] [place] [facility] [address] [id number] [place] [address]- [address] Jul, [facility] [place] [facility] [address] [id number] [place] [address] Jul, [facility] [place] [facility] [address] [id number] [place] [address] Jul, [facility] [place] [facility] [address] [id number] [place] [address] Jul, [facility] [place] [facility] [address] [id number] [place] [address] Jul, [facility] [place] [facility] [address] [id number] [place] [address] Jul, [facility] [place] [facility] [address] [id number] [place] [address] Jul, [facility] [place] [facility] [address] [id number] [place] [address] Jul, [facility] [place] [facility] [address] [id number] [place] [address] Jun, [facility] [place] [facility] [address] [id number] [place] [address] Jun, [facility] [place] [facility] [address] [id number] [place] [address] Jun, [facility] [place] [facility] [address] [id number] [place] [address]- [address] Jun, [facility] [place] [facility] [address] [id number] [place] [address] Jun, [facility] [place] [facility] [address] [id number] [place] [address]- [address] Jun, [facility] [place] [facility] [address] [id number] [place] [address]- [address] Jun, [facility] [place] [facility] [address] [id number] [place] [address] Jun, [facility] [place] [facility] [address] [id number] [place] [address]- [address] 30 May, 2013 [facility] [place] [facility] [address] [id number] [place] [address]- [address] 26 May, 2013 [facility] [place] [facility] [address] [id number] [place] [address]- 2014 23 May, 2013 [facility] [place] [facility] [address] [id number] [place] [address] 19 May, 2013 [facility] [place] [facility] [address] [id number], [place] [address] 12 May, 2013 [facility] [place] [facility] [address] [id number], [place] [address] May, [facility] [place] [facility] [address] [id number] [place] [address] Apr, [facility] [place] [facility] [address] [id number] [place] [address] 32[address] Apr, [facility] [place] [facility] [address] [id number] [place] [address]- [address] Apr, [facility] [place] [facility] [address] [id number] [place] [address]- 1414 Apr, [facility] [address] [id number] [place] [address] Apr, [facility] [place] [facility] [address] [id number] [place] [address] Apr, [facility] [address] [id number] [place] [address]- [address] Apr, [facility] [place] [facility] [address] [id number] [place] [address] Mar, [facility] [address] [id number] [place] [address]- [address] Mar, [facility] [address] [id number] [place] [address] Mar, [facility] [place] [facility] [address] [id number] [place] [address] Mar, [facility] [address] [id number] [place] [address] Mar, [facility] [place] [facility] [address] [id number] [place] [address] Mar, [facility] [address] [id number] [place] [address]- [address] Mar, [facility] [place] [facility] [address] [id number] [place] [address] Jan, [facility] [place] [facility] [address] [id number] [place] [address] Jan, [facility] [place] [facility] [address] [id number] [place] [address] Jan, [facility] [place] [facility] [address] [id number] [place] [address]- [address] Jan, [facility] [place] [facility] [address] [id number] [place] [address]- [address] Jan, [facility] [address] [id number] [place] [address]- [address] Jan, [facility] [address] [id number] [place] [address]- 38[address] Jan, [facility] [address] [id number] [place] [address]- [address] December, [facility] [place] [facility] [address] [id number] [place] [address]- [address] December, [facility] [address] [id number] [place] [address]- [address] December, [facility] [address] [id number] [place] [address]- [address] December, [facility] [address] [id number] [place] [address]- [address]287 Dec, [facility] [address] [id number] [place] [address]- [address] Dec, [facility] [address] [id number] [place] [address]- [address] Dec, [facility] [address] [id number] [place] [address]- [address] Oct, [facility] [place] [facility] [address] [id number] [place] [address]- 7966 Oct, [facility] [place] [facility] [address] [id number], [place] [address] Oct, [facility] [place] [facility] [address] [id number] [place] [address]- [address] Oct, [facility] [place] [facility] [address] [id number] [place] [address]- [address]40 Oct, [facility] [place] [facility] [address] [id number] [address] Oct, [facility] [place] [facility] [address] [id number], [place] [address] Oct, [facility] [address] [id number] [place] [address] Oct, [facility] [address] [id number] [place] [address]646 Oct, [facility] [address] [id number] [place] [address] 08 Oct, 2012 [facility] [place] [facility] [address] [id number] [place] [address]- 9416 Oct, [facility] [address] [id number] [place] [address]- [address] Sep, [facility] [address] [id number] [place] [address]- 8727 Sep, [facility] [address] [id number] [place] [address] 1999 Sep, [facility] [facility] [address] [id number] [place] [address] Aug, [facility] [address] [id number] [place] [address] Aug, [facility] [address] [facility] [id number] [place] [address] Aug, [facility] [address] [id number] [place] [address] Aug, [facility] [place] [facility] [address] [id number] [place] [address] Jul, [facility] [place] [facility] [address] [id number] [place] [address] Jul, [facility] [place] [facility] [address] [id number] [place] [address] Jul, [facility] [address] [id number] [address] Jul, [facility] [place] [facility] [address] [id number] [place] [address] Jul, [facility] [place] [facility] [address] [id number] [place] [address] Jul, [facility] [place] [facility] [address] [id number] [place] [address] Jul, [facility] [place] [facility] [address] [id number] [place] [address] Jul, [facility] [place] [facility] [address] [id number] [place] [address] Jun, [facility] [place] [facility] [address] [id number] [place] [address] Jun, [facility] [place] [facility] [address] [id number] [place] [address] Jun, [facility] [place] [facility] [address] [id number] [place] [address] 119[address] Jun, [facility] [place] [facility] [address] [id number] [place] [address] Jun, [facility] [place] [facility] [address] [id number] [place] [address] May, [facility] [place] [facility] [address] [id number] [place] [address] May, [facility] [place] [facility] [address] [id number] [place] [address] 18 May, 2012 [facility] [place] [facility] [address] [id number] [place] [address] 09 May, 2012 [facility] [place] [facility] [address] [id number] [place] [address] 69[address] 04 May, 2012 [facility] [place] [facility] [address] [id number] [place] [address]- [address] Apr, [facility] [place] [facility] [address] [id number] [place] [address]- 116[address] Apr, [facility] [place] [facility] [address] [id number] [place] [address] 8524 Apr, [facility] [place] [facility] [address] [id number] [place] [address] 8799 Apr, [facility] [place] [facility] [address] [id number] [place] [address] Apr, [facility] [place] [facility] [address] [id number] [place] [address] Apr, [facility] [place] [facility] [address] [id number] [place] [address] Apr, [facility] [place] [facility] [address] [id number] [place] [address] Mar, [facility] [place] [facility] [address] [id number] [place] [address] Mar, [facility] [place] [facility] [address] [id number] [place] [address] 0147 Mar, [facility] [place] [facility] [address] [id number] [place] [address] Mar, [facility] [place] [facility] [address] [id number] [place] [address] Jan, [facility] [place] [facility] [address] [id number] [place] [address] Jan, [facility] [place] [facility] [address] [id number] [place] [address] Jan, [facility] [place] [facility] [address] [id number] [place] [address] 94[address] Jan, [facility] [place] [facility] [address] [id number] [place] [address] Jan, [facility] [place] [facility] [address] [id number] [place] [address] Jan, [facility] [place] [facility] [address] [id number] [place] [address] December, [facility] [address] [id number] [place] [address] 24[address] December, [facility] [address] [id number] [place] [address] 1036 December, [facility] [address] [id number] [place] [address] 12[address] December, [facility] [address] [id number] [place] [address] 2510 Dec, [facility] [address] [id number] [place] [address] 7068 Dec, [facility] [address] [id number] [place] [address] 1700 Oct, [facility] [address] [id number] [place] [address]28 Oct, [facility] [address] [id number] [place] [address]- 9129 Oct, [facility] [address] [id number] [place] [address] 1984 Oct, [facility] [address] [facility] [id number] [place] [address] 9766 Oct, [facility] [address] [id number] [place] [address] 4296 Oct, [facility] [address] [id number] [place] [address]- [address]16 05 Nov, 2011 [facility] [place] [facility] [address] [id number] [place] [address] 7526 Oct, [facility] [address] [id number] [place] [address] 3956 Oct, [facility] [address] [id number] [place] [address]- 0311 Oct, [facility] [address] [id number] [place] [address] 8284 Oct, [facility] [address] [id number] [place] [address]- 4436 Sep, [facility] [address] [id number] [place] [address]- 1813 Sep, [facility] [place] [facility] [address] [id number] [place] [address]- 37[address] Sep, [facility] [address] [id number] [place] [address]- 1071 Sep, [facility] [address] [id number] [place] [address] 8644 Sep, [facility] [address] [id number] [place] [address]- 6115 Sep, [facility] [address] [id number] [place] [address]- 3125 Sep, [facility] [address] [id number] [place] [address] 3492 Sep, [facility] [address] [id number] [place] [address]- 9610 Aug, [facility] [place] [facility] [address] [id number] [place] [address]- 8881 Aug, [facility] [place] [facility] [address] [id number], [place] [address] Aug, [facility] [place] [facility] [address] [id number] [place] [address]- 7880 Jul, [facility] [place] [facility] [address] [id number] [place] [address]- 2987 Jul, [facility] [place] [facility] [address] [id number] [place] [address]- 3273 Jul, [facility] [place] [facility] [address] [id number] [place] [address]- 8349 17 Jul, 2011 [facility] [place] [facility] [address] [id number] [place] [address]- 2024 08 Jul, 2011 [facility] [place] [facility] [address] [id number] [place] [address]- 5214 02 Jul, 2011 [facility] [place] [facility] [address] [id number] [place] [address]- 2334 31 Jun, 2011 [facility] [place] [facility] [address] [id number] [place] [address]- 1690 20 Jun, 2011 [facility] [place] [facility] [address] [id number] [place] [address]- 2445 20 Mar, 2011 [facility] [place] [facility] [address] [id number] [place] [address]- 6764 14 Dec, 2010 [facility] [place] [facility] [address] [id number] [place] [address]- 3284 14 Oct, 2010 [facility] [place] [facility] [address] [id number] [place] [address]- 4956 06 Aug, 2010 [facility] [place] [facility] [address] [id number] [place] [address]- 7587 30 Jul, 2010 [facility] [place] [facility] [address] [facility] [id number] [place] [address]- 5351 11 Jul, 2010 [facility] [place] [facility] [address] [id number] [place] [address]- 6211 10 Jul, 2010 [facility] [place] [facility] [address] [id number] [place] [address]- 5415 09 Jul, 2010 [facility] [place] [facility] [address] [id number] [place] [address]- 6669 08 Jul, 2010 [facility] [place] [facility] [address] [id number] [place] [address]- 8910 22 Aug, 2009 [facility] [place] [facility] [address] [facility] [id number] [place] [address]- 1667 15 Aug, 2009 [facility] [place] [facility] [id number] [address]16 Aug, [facility] [id number], [place] [address] 4[address] Aug, [facility] [id number], [place] [address]- 2546 Jul, [facility] [id number], [place] [address]- 9255 Jul, [facility] [id number], [place] [address]- 9238 Jul, [facility] [id number] [place] [address] 2546 Jul, [facility] [id number], [place] [address]- 7530 Jun, [facility] [id number], [place] [address]- 3437 Jun, IMMUNIZATIONS No Known Immunizations SOCIAL HISTORY Never Assessed REASON FOR VISIT Controlled Med Vphsus-32-05-17 PLAN OF CARE VITAL SIGNS MEDICATIONS Medication Instructions Dosage Frequency Start Date End Date Duration Status Hydrocodone-Acetaminophen 7.5-325 MG Orally 2 times a day 1 tablet as needed 12h Aug, 28 days Active RESULTS No Results PROCEDURES [...]
--- OUTSIDE RECORDS SUMMARY | 2018-03-17 11:25 | XMS REPORT ---
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 Active 38973927 Problem Attention-deficit hyperactivity disorder, predominantly inattentive type F90.0 Active 29724333 Problem Obstructive sleep apnea G47.33 Active 55090398 Problem Primary insomnia F51.01 Active 6474463 Problem Neuralgia M79.2 Active 45815744 Problem Cannabis use disorder, mild, abuse F12.10 Active 96977788 Problem Folic acid deficiency E53.8 Active 154180345 Problem Restless legs G25.81 Active 57956645 Problem Major depressive disorder, recurrent, mild F33.0 Active 60450290 Problem Generalized anxiety disorder F41.1 Active 61784649 Problem Major depressive disorder, recurrent episode, moderate F33.1 Active 699324354 Problem Hypertension I10 Active 13176058 Problem Hyperlipidemia E78.5 Active 81025337 Problem Primary osteoarthritis of both knees M17.0 Active 732568999 Problem Chronic hepatitis K73.9 Active 80433450 Problem Low back pain M54.5 Active 492048986 Problem Chronic viral hepatitis B without delta-agent B18.1 Active 805166103 Problem Insomnia G47.00 Active 707236133 Problem Hypothyroid E03.9 Active 56826233 Problem Depression, major, recurrent, mild F33.0 Active 647740766 Problem Obesity due to excess calories, unspecified obesity severity E66.09 Active 053973834 ALLERGIES Substance Reaction Event Type Date Status Trazodone HCl "weird dreams" Drug Allergy Mar, Active ENCOUNTERS Encounter Location Date Diagnosis [facility] [id number] [address] December, [facility] [id number] [place] [address] 97711- 0274 Dec, [facility] [address] 27141- 4274 Dec, [facility] [address] 76799- 3215 Oct, [facility] [address] 72377- 8440 Oct, Syncope, unspecified syncope type R55 ; Primary insomnia F51.01 ; Dry mouth R68.2 and Cannabis use disorder, mild, abuse F12.10 [facility] [address] 70573- 6110 Oct, [facility] [id number] [place] [address] 13820- 2574 Sep, [facility] [address] 86685- 9668 Sep, [facility] [id number] [place] [address] 80258- 7713 Sep, [facility] [address] [id number] Sep, Dental examination Z01.20 [facility] [id number] [place] [address] 74942- 6931 Sep, Dental examination Z01.20 [facility] [id number] [place] [address] 49679- 9942 Sep, Sinus congestion R09.81 ; Mouth sores K13.79 ; Low back pain M54.5 and Mouth swelling R22.0 [facility] [id number] [place] [address] 41206- 6314 Aug, Low back pain M54.5 [facility] [id number] [place] [address] 01955- 1386 Aug, Low back pain M54.5 [facility] [address] 86214- 1154 Jul, [place] [address] 79471- 1266 Jul, 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 ; Encounter for immunization Z23 ; Hypothyroid E03.9 ; Decreased renal function N28.9 and Muscle cramps R25.2 [place] [address] 20255- 8032 Jul, [place] [address] 36358- 7065 Jul, [place] [address] 34025- 9665 Jul, [place] [address] 66331- 9639 Jul, Major depressive disorder, recurrent, mild F33.0 [place] [address] 86820- 4498 Jul, Acquired cyst of kidney N28.1 ; Acidosis E87.2 and Hyperkalemia E87.5 [place] [address] 11841- 5223 Jul, Major depressive disorder, recurrent, mild F33.0 ; Attention -deficit hyperactivity disorder, predominantly inattentive type F90.0 and Generalized anxiety disorder F41.1 [place] [address] 98034- 3787 Jul, Low back pain M54.5 [facility] [address] 87555- 2917 Jun, Cough R05 ; Low back pain M54.5 and Pre-syncope R55 [facility] [address] 06867- 1198 Jun, Low back pain M54.5 [facility] [address] [id number] Jun, Dental caries K02.9 [place] [id number] [place] [address] 44403- 4344 Jun, [place] [address] 710541- 2212 Jun, Major depressive disorder, recurrent, mild F33.0 ; Attention -deficit hyperactivity disorder, predominantly inattentive type F90.0 and Generalized anxiety disorder F41.1 [place] [id number] [place] [address] 21786- 6393 May, Vertigo R42 ; Confusion R41.0 ; Weakness R53.1 and Vision changes H53.9 [place] [id number] [place] [address] 68056- 2527 May, [place] [id number] [place] [address] 36524- 7950 May, [place] [id number] [place] [address] 31033- 2807 May, Low back pain M54.5 [place] [id number] [place] [address] 43296- 5820 05 May, 2017 Major depressive disorder, recurrent, mild F33.0 ; Attention -deficit hyperactivity disorder, predominantly inattentive type F90.0 and Generalized anxiety disorder F41.1 [place] [id number] [place] [address] 53093- 5073 May, [place] [id number] [place] [address] 21136- 3427 May, Acute worsening of stage 3 chronic kidney disease N18.3 [place] [address] 57993- 9102 Apr, [place] [address] 30855- 5243 Apr, Acute allergic rhinitis due to pollen, unspecified seasonality J30.1 ; Restless legs G25.81 and Low back pain M54.5 [facility] [id number] [place] [address] 31812- 3516 10 Apr, 2017 Primary osteoarthritis of both knees M17.0 [facility] [id number] [place] [address] 01306- 1678 08 Apr, 2017 Generalized anxiety disorder F41.1 [facility] [address] 02648- 6701 07 Apr, 2017 Major depressive disorder, recurrent, mild F33.0 ; Attention -deficit hyperactivity disorder, predominantly inattentive type F90.0 and Generalized anxiety disorder F41.1 [facility] [address] 53723- 4557 Apr, [facility] [address] 88096- 2865 Mar, Major depressive disorder, recurrent episode, moderate F33.1 ; Generalized anxiety disorder F41.1 and ADHD, predominantly inattentive type F90.0 [facility] [address] 91447 -0676 Mar, Abscess L02.91 [facility] [address] 47853- 3296 Mar, 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 [facility] [id number] [place] [address] 23421- 8199 Mar, Decreased renal function N28.9 [facility] [address] [id number] Mar, Dental examination Z01.20 [facility] [address] 24237- 5642 Mar, 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 [facility] [address] 78237- 6262 Mar, 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 [facility] [address] [id number] Mar, Dental examination Z01.20 and Dental caries K02.9 [address] [id number] [place] [address] 42019- 5572 Mar, Chronic viral hepatitis B without delta-agent B18.1 ; Folic acid deficiency E53.8 ; 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 and Decreased renal function N28.[address] 73036- 3411 11 Mar, 2017 Major depressive disorder, recurrent, mild F33.[address] 17244- 6027 Mar, [address] 29530- 5529 Mar, Chronic hepatitis K73.9 ; 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 ; Localized edema R60.0 ; Illicit drug use F19.90 ; Vision changes H53.9 and Obesity due to excess calories, unspecified obesity severity E66.[address] 68432- 1675 Jan, Major depressive disorder, recurrent, mild F33.[address] 31003- 5431 Jan, Chronic viral hepatitis B without delta-agent B18.[address] 77276- 2594 Jan, [address] 48121- 2343 Jan, Weight gain R63.5 ; Hypothyroid E03.9 ; 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 ; Decreased renal function N28.9 and Chronic viral hepatitis B without delta-agent B18.[address] 10662- 4018 December, Major depressive disorder, recurrent, mild F33.0 and Generalized anxiety disorder F41.[address] 30917- 5668 December, Obesity due to excess calories, unspecified obesity severity E66.09 and Folic acid deficiency E53.8 [facility] [id number] [place] [address] 75565- 6836 December, Folic acid deficiency E53.8 [facility] [id number] [place] [address] 57156- 6708 December, Folic acid deficiency E53.8 [facility] [id number] [place] [address] 36655- 0714 December, Obesity due to excess calories, unspecified obesity severity E66.09 [facility] [id number] [place] [address] 78660- 2101 December, [facility] [id number] [place] [address] 62213- 1414 December, Folic acid deficiency E53.8 [facility] [id number] [place] [address] [id number] December, Encounter for other administrative examinations Z02.89 [facility] [id number] [place] [address] 96429- 1250 Dec, [facility] [id number] [place] [address] [id number] Dec, Dental caries K02.9 [facility] [id number] [place] [address] 11534- 7655 Oct, Bone pain M89.8X9 [facility] [id number] [place] [address] 04587- 1852 Oct, Hypothyroid E03.9 [facility] [id number] [place] [address] 69515- 7496 24 Oct, 2016 Hypothyroid E03.9 [facility] [id number] [place] [address] 71949- 5391 13 Oct, 2016 Breast cancer screening Z12.39 [facility] [address] [id number] 08 Oct, 2016 Dental examination Z01.20 [place] [id number] [place] [address] 29010- 8024 Oct, [place] [id number] [place] [address] 22555- 4627 Oct, Major depressive disorder, recurrent, mild F33.0 and Generalized anxiety disorder F41.1 [place] [id number] [place] [address] 46551- 2068 Oct, [place] [id number] [place] [address] 01516- 7702 Oct, Hypothyroid E03.9 [place] [id number] [place] [address] 54658- 3413 Sep, Hypothyroid E03.9 ; Chronic viral hepatitis B without delta- agent B18.1 and Folic acid deficiency E53.8 [place] [id number] [place] [address] 89483- 3757 Sep, Hypothyroidism, unspecified type E03.9 ; Elevated parathyroid hormone E34.9 and Chronic viral hepatitis B without delta-agent B18.1 [place] [address] [place] [address] 58432- 5748 Sep, [place] [id number] [place] [address] 49370- 0502 Sep, Elevated parathyroid hormone E34.9 [place] [id number] [place] [address] 65960- 7581 Sep, [place] [id number] [place] [address] 51504- 5540 Sep, Chronic hepatitis K73.9 ; Bone pain M89.8X9 and Abnormal complete blood count R79.89 [place] [id number] [place] [address] 65294- 9643 Aug, Major depressive disorder, recurrent, mild F33.0 [facility] [id number] [place] [address] 76864- 5820 Aug, Bone pain M89.8X9 [facility] [address] 31838- 9207 Aug, [facility] [address] 05347- 5782 Jul, Chronic viral hepatitis B without delta-agent B18.1 [facility] [address] 68027- 7083 Jul, Hypothyroidism, unspecified type E03.9 [place] [address] 56604- 0360 Jul, [place] [address] 21655- 5470 Jul, Chronic hepatitis K73.9 and Hypothyroid E03.9 [place] [address] 49257- 1193 Jul, Low back pain M54.5 [place] [address] 57894- 8855 Jun, Depression, major, recurrent, mild F33.0 and ADD (attention deficit disorder) F90.0 [place] [address] 50364- 5080 Jun, [facility] [id number] [place] [address] 35637- 5941 Jun, Low back pain M54.5 [facility] [address] 96990- 1124 Jun, Encounter for immunization Z23 ; Major depressive disorder, recurrent, mild F33.0 and Attention-deficit hyperactivity disorder, predominantly inattentive type F90.0 [facility] [id number] [place] [address] 69676- 5995 Jun, [facility] [id number] [place] [address] 09893- 9230 06 Jun, 2016 Low back pain M54.5 [facility] [address] 77782- 2476 May, [facility] [id number] [place] [address] 14249- 5983 May, [facility] [address] 00840- 4546 May, Essential (primary) hypertension I10 [facility] [address] 72270- 6676 19 May, 2016 Low back pain M54.5 [facility] [id number] [place] [address] 98328- 0302 May, Low back pain M54.5 ; Chronic hepatitis K73.9 and Hypothyroid E03.9 [facility] [address] 62198- 0928 09 May, 2016 Hypothyroidism, unspecified type E03.9 [facility] [address] 44438- 7423 08 May, 2016 Low back pain M54.5 [facility] [id number] [place] [address] 08757- 9918 May, [facility] [address] 01408- 0872 May, [facility] [id number] [place] [address] 91638- 3304 May, Major depressive disorder, recurrent, moderate F33.1 ; Generalized anxiety disorder F41.1 ; Insomnia G47.00 and ADD (attention deficit disorder) F90.0 [facility] [id number] [place] [address] 35892- 9606 Apr, Low back pain M54.5 [facility] [address] 57668- 3641 Apr, [place] [id number] [place] [address] 58441- 2571 Apr, Low back pain M54.5 [place] [id number] [place] [address] 71867- 1000 Apr, Low back pain M54.5 ; Tooth pain K08.8 and Seasonal allergic rhinitis due to pollen J30.1 [place] [id number] [place] [address] 76538- 9568 Apr, Low back pain M54.5 [place] [id number] [place] [address] 55909- 3604 Apr, LGS[facility] Pap smear of vagina R87.622 [place] [id number] [place] [address] 10842- 1818 Apr, Low back pain M54.5 [place] [id number] [place] [address] 05395- 6978 Mar, [place] [id number] [place] [address] 71873- 4283 Mar, Low back pain M54.5 [place] [id number] [place] [address] 71568- 2662 Mar, Encounter for Papanicolaou smear for cervical cancer screening Z12.4 ; Encounter for routine gynecological examination Z01.419 and Breast cancer screening Z12.39 [place] [id number] [place] [address] 43042- 7102 18 Mar, 2016 Hypothyroidism, unspecified type E03.9 [place] [id number] [place] [address] 74623- 2548 14 Mar, 2016 Low back pain M54.5 ; Other chronic pain G89.29 ; Hypothyroid E03.9 and Hypothyroidism, unspecified type E03.9 [place] [id number] [place] [address] 86227- 3932 Mar, Major depressive disorder, recurrent, moderate F33.1 and Attention-deficit hyperactivity disorder, predominantly inattentive type F90.0 [facility] [id number] [place] [address] 63992 -7644 Mar, Bronchitis J40 [facility] [id number] [place] [address] 93044- 3211 Jan, [facility] [address] 39219- 6043 Jan, [facility] [id number] [place] [address] 54694- 0304 Jan, Insomnia G47.00 [facility] [address] 71112- 8968 December, [facility] [id number] [place] [address] 52378- 5848 December, Major depressive disorder in partial remission F32.4 and Attention-deficit hyperactivity disorder, unspecified type F90.9 [facility] [id number] [place] [address] 33802- 4760 December, [facility] [id number] [place] [address] 89055- 8222 December, [facility] [id number] [place] [address] 46941- 3941 Dec, [facility] [id number] [place] [address] 53195- 5237 Dec, Major depressive disorder, recurrent episode, moderate 296.32 and Attention deficit disorder of childhood without mention of hyperactivity 314.00 [facility] [id number] [place] [address] 07419- 6120 Dec, Major depressive disorder, recurrent episode, mild 296.31 ; ADD (attention deficit disorder) F90.0 and Hyperlipidemia E78.5 [facility] [id number] [place] [address] 55473- 8948 Dec, Insomnia G47.00 [facility] [address] [address]- 8583 05 Dec, 2015 Attention-deficit hyperactivity disorder, predominantly inattentive type F90.0 [facility] [address] [place] [address] 58399- 1821 Oct, Restless legs syndrome G25.81 [facility] [id number] [place] [address] 84760- 6196 Oct, Hypothyroidism, unspecified type E03.9 [facility] [id number] [place] [address] 47931- 0871 Oct, [facility] [id number] [place] [address] 94985- 3440 Oct, [facility] [id number] [place] [address] 44780- 8037 Oct, Hypothyroid E03.9 and Chronic hepatitis K73.9 [facility] [id number] [place] [address] 57792- 3916 Oct, [facility] [id number] [place] [address] 70366- 8979 08 Nov, 2015 Restless legs syndrome G25.81 ; Chronic hepatitis K73.9 ; Hypertension I10 ; Hypothyroid E03.9 and Breast cancer screening Z12.39 [facility] [address] [address]- 4644 Oct, [facility] [address] [address]- 8496 Oct, [facility] [id number] [place] [address] 29808- 8010 Oct, [facility] [address] [address]- 8442 Oct, [facility] [address] [place] [address] 64117- 8037 Oct, [facility] [address] [address]- 9733 Oct, [facility] [id number] [place] [address] 91730- 5139 Oct, [facility] [address] [address]- 1049 Sep, [facility] [id number] [place] [address] 49068- 7896 Sep, Attention-deficit hyperactivity disorder, predominantly inattentive type F90.0 and Major depressive disorder in partial remission F32.4 [facility] [id number] [place] [address] 81689- 9823 Sep, [facility] [address] [place] [address] 94671- 0940 Aug, [facility] [id number] [place] [address] 27177- 0618 Aug, [facility] [address] [address]- 5723 Aug, Major depressive disorder, recurrent, mild F33.0 ; Attention -deficit hyperactivity disorder, unspecified type F90.9 and Generalized anxiety disorder F41.1 [facility] [address] [address]- 1272 08 Aug, 2015 Chronic hepatitis K73.9 ; Primary osteoarthritis of both knees M17.0 and Neuralgia M79.2 [facility] [address] [address]- 0599 Jul, [facility] [address] [address]- 0701 Jul, [facility] [address] [address]- 0283 Jul, [facility] [address] [address]- 5705 Jul, [facility] [id number] [place] [address] 58746- 6413 Jun, [facility] [id number] [place] [address] 41388- 5525 Jun, Bronchitis J40 and Encounter for immunization Z23 [facility] [id number] [place] [address] 63520- 9811 30 May, 2015 [facility] [address] 74987- 2362 May, [facility] [id number] [place] [address] 52965- 5401 May, [facility] [id number] [place] [address] 50309- 6877 May, Hypokalemia 276.8 [facility] [id number] [place] [address] 48814- 4066 08 May, 2015 Major depressive disorder, recurrent episode, mild 296.31 ; Attention deficit disorder of childhood without mention of hyperactivity 314.00 and Generalized anxiety disorder 300.02 [facility] [id number] [place] [address] 17523- 2577 May, Hypertension 401.9 and Hypokalemia 276.8 [facility] [id number] [place] [address] 44653- 1104 May, [facility] [id number] [place] [address] 86831- 0155 Apr, [facility] [id number] [place] [address] 66614- 7570 Apr, [facility] [id number] [place] [address] 63033- 1939 Apr, [facility] [id number] [place] [address] 17801- 0182 Apr, [facility] [id number] [place] [address] 03475- 3133 Mar, [facility] [address] [address]- 4216 Mar, [facility] [id number] [place] [address] 73103- 3514 Mar, [facility] [id number] [place] [address] 35777- 6354 Mar, [facility] [id number] [place] [address] 48082- 7763 Mar, Arthritis of both knees 716.96 ; Hepatitis B 070.30 ; Hypertension 401.9 ; Carpal tunnel syndrome 354.0 and Cubital tunnel syndrome 354.2 [facility] [facility] [id number] [place] [address] 03954- 4435 Mar, [facility] [id number] [place] [address] 51301- 7418 Mar, [facility] [id number] [place] [address] 24678- 2330 Mar, 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, chronic, without mention of hepatitis delta 070.32 ; Chronic hepatitis C without mention of hepatic coma 070.54 and Major depressive disorder, recurrent episode, moderate 296.32 [facility] [id number] [address] Jan, [facility] [id number] [place] [address] 91450- 0860 Jan, Major depressive disorder, recurrent episode, mild 296.31 and Attention deficit disorder of childhood without mention of hyperactivity 314.00 [facility] [id number] [place] [address] 78680- 7229 Jan, [facility] [id number] [place] [address] 56256- 0868 Jan, [facility] [id number] [place] [address] 60327- 4803 December, Attention deficit disorder of childhood without mention of hyperactivity 314.00 ; Major depressive disorder, recurrent episode, mild 296.31 and Generalized anxiety disorder 300.02 [facility] [id number] [place] [address]- 3971 08 Dec, 2014 [facility] [address] [facility] [id number] [place] [address]- 4361 14 Dec, 2014 [facility] [id number] [place] [address]- 0447 Dec, [facility] [address] [facility] [id number] [place] [address]- 7032 19 Oct, 2014 [facility] [id number] [place] [address]- 9870 19 Oct, 2014 [facility] [id number] [place] [address]- 5760 18 Oct, 2014 [facility] [address] [place] [address]- 6771 18 Oct, 2014 [facility] [id number] [address] 9664 18 Oct, 2014 [facility] [address] [place] [address]- 2043 18 Oct, 2014 [facility] [id number] [address] 0243 16 Oct, 2014 [facility] [address] [address]- 9538 13 Oct, 2014 [facility] [id number] [address]- 1875 13 Oct, 2014 [facility] [address] 0436 12 Oct, 2014 [facility] [id number] 9355 12 Oct, 2014 [facility] [id number] [address]30 Oct, [facility] [place] [facility] [address] [id number] [place] [address]- 0236 Oct, [facility] [place] [facility] [address] [id number] [place] [address]- 4236 Oct, [facility] [place] [facility] [address] [facility] [id number] [place] [address]- 2331 05 Oct, 2014 [facility] [place] [facility] [address] [id number] [place] [address]- 5391 Oct, 2014 [facility] [place] [facility] [address] [id number] [place] [address]- 9491 Oct, 2014 [facility] [place] [facility] [address] [id number] [place] [address]- 9172 25 Oct, 2014 [facility] [place] [facility] [address] [facility] [id number] [place] [address]- 0553 Oct, 2014 [facility] [place] [facility] [address] [facility] [id number] [place] [address]- 9207 18 Oct, 2014 [facility] [place] [facility] [address] [facility] [id number] [place] [address]- 4971 17 Oct, 2014 [facility] [place] [facility] [address] [facility] [id number] [place] [address]- 1815 17 Oct, 2014 [facility] [place] [facility] [address] [facility] [id number] [place] [address]- 3845 Oct, 2014 [facility] [place] [facility] [address] [facility] [id number] [place] [address]- 1684 11 Oct, 2014 [facility] [place] [facility] [address] [facility] [id number] [place] [address]- 9119 11 Oct, 2014 [facility] [place] [facility] [address] [facility] [id number] [place] [address]- 5712 11 Oct, 2014 [facility] [place] [facility] [address] [facility] [id number] [place] [address]- 7283 10 Oct2014 [facility] [place] [facility] [address] [id number] [place] [address]- 7591 Oct, [facility] [place] [facility] [address] [id number] [place] [address]- 1207 Sep, [facility] [place] [facility] [address] [id number] [place] [address]- 3506 Sep, [facility] [place] [facility] [address] [id number] [place] [address]- 0967 Sep, [facility] [place] [facility] [address] [id number] [place] [address]- 4011 Sep, [facility] [place] [facility] [address] [id number] [place] [address]- 4808 Sep, [facility] [place] [facility] [address] [id number] [place] [address]- 6909 Sep, [facility] [place] [facility] [address] [id number] [place] [address]- 7733 Sep, [facility] [place] [facility] [address] [id number] [place] [address]- 0594 Sep, [facility] [place] [facility] [address] [id number] [place] [address]- 7524 Sep, [facility] [place] [facility] [address] [id number] [place] [address]- 7254 Sep, [facility] [place] [facility] [address] [id number] [place] [address]- 9239 Sep, [facility] [place] [facility] [address] [id number] [place] [address]- 6594 Sep, [facility] [place] [facility] [address] [id number] [place] [address]- 8806 Sep, [facility] [place] [facility] [address] [id number] [place] [address]- 6102 Sep, [facility] [place] [facility] [address] [id number] [place] [address]- 9686 Sep, [facility] [place] [facility] [address] [id number] [place] 0326 Sep, [facility] [place] [facility] [address] [id number] [place] [address]- 1126 Aug, [facility] [place] [facility] [address] [id number] [place] 8281 Aug, [facility] [place] [facility] [address] [id number] [place] [address]- 2485 Aug, [facility] [place] [facility] [address] [id number] [place] [address]- 3787 Aug, [facility] [place] [facility] [address] [id number] [place] [address]- 7549 Aug, [facility] [place] [facility] [address] [id number] [place] [address]- 4820 Aug, [facility] [place] [facility] [address] [id number] [place] [address]- 0563 Aug, [facility] [place] [facility] [address] [id number] [place] [address]- 4321 Aug, [facility] [place] [facility] [address] [id number] [place] [address]- 2240 Aug, [facility] [place] [facility] [address] [id number] [place] [address]- 1142 18 Aug, 2014 [facility] [place] [facility] [address] [id number] [place] [address]- 5844 18 Aug, 2014 [facility] [place] [facility] [address] [id number] [place] [address]- 1039 16 Aug, 2014 [facility] [place] [facility] [address] [id number] [place] [address]- 4849 16 Aug, 2014 [facility] [place] [facility] [address] [id number] [place] [address]- 9293 15 Aug, 2014 [facility] [place] [facility] [address] [id number] [place] [address]- 8405 15 Aug, 2014 [facility] [address] [id number] [place] [address]- 3754 Aug, [facility] [place] [facility] [address] [id number] [place] [address]- 0693 Aug, [facility] [place] [facility] [address] [id number] [place] [address]- 3962 Aug, [facility] [place] [facility] [address] [id number] [place] [address]- 4283 Aug, [facility] [place] [facility] [address] [id number] [place] [address]- 6749 Aug, [facility] [place] [facility] [address] [id number] [place] [address]- 5501 Aug, [facility] [place] [facility] [address] [id number] [place] [address]- 5415 Aug, [facility] [place] [facility] [address] [id number] [place] [address]- 5700 Aug, [facility] [place] [facility] [address] [id number] [place] [address]- 8279 Aug, [facility] [place] [facility] [address] [id number] [place] [address]- 7599 Aug, [facility] [place] [facility] [address] [id number] [place] [address]- 7478 Jul, [facility] [place] [facility] [address] [id number] [place] [address]- 9218 Jul, [facility] [place] [facility] [address] [id number] [place] [address]- 1828 Jul, [facility] [place] [facility] [address] [id number] [place] [address]- 7530 Jul, [facility] [place] [facility] [address] [id number] [place] [address]- 7287 Jul, [facility] [place] [facility] [address] [id number] [place] [address]- 6790 Jul, [facility] [place] [facility] [address] [id number] [place] [address]- 3670 Jun, [facility] [place] [facility] [address] [id number] [place] [address]- 8210 Jun, [facility] [place] [facility] [address] [id number] [place] [address]- 2579 Jun, [facility] [place] [facility] [address] [id number] [place] [address]- 3023 Jun, [facility] [place] [facility] [address] [id number] [place] [address]- 8910 Jun, [facility] [place] [facility] [address] [id number] [place] [address]- 1652 Jun, [facility] [place] [facility] [address] [id number] [place] [address]- 1077 Jun, [facility] [place] [facility] [address] [id number] [place] [address]- 4332 Jun, [facility] [place] [facility] [address] [id number] [address]- 9417 16 May, 2014 [facility] [place] [facility] [address] [id number] [place] [address]- 6481 16 May, 2014 [facility] [place] [facility] [address] [id number] [address]- 3176 15 May, 2014 [facility] [place] [facility] [address] [id number] [place] [address]- 2908 15 May, 2014 [facility] [place] [facility] [address] [id number] [place] [address]- 4044 08 May, 2014 [facility] [place] [facility] [address] [id number] [address]- 5938 08 May, 2014 [facility] [place] [facility] [address] [id number] [place] [address]- 1529 May, [facility] [place] [facility] [address] [id number] [place] [address]- 8285 May, [facility] [place] [facility] [address] [id number] [place] [address]- 4045 Apr, [facility] [place] [facility] [address] [id number] [place] [address]- 9748 Apr, [facility] [place] [facility] [address] [id number] [place] [address]- 7734 Apr, [facility] [place] [facility] [address] [id number] [place] [address]- 1459 Apr, [facility] [place] [facility] [address] [id number] [place] [address]- 8368 Apr, [facility] [place] [facility] [address] [id number] [place] [address]- 6648 Apr, [facility] [place] [facility] [address] [id number] [place] [address]- 2299 Apr, [facility] [place] [facility] [address] [id number] [place] [address]- 9303 Apr, [facility] [place] [facility] [address] [id number] [place] [address]- 8295 Apr, [facility] [place] [facility] [address] [id number] [place] [address]- 4840 Apr, [facility] [place] [facility] [address] [id number] [place] [address]- 2477 Apr, [facility] [place] [facility] [address] [id number] [place] [address]- 4934 Apr, [facility] [place] [facility] [address] [id number] [place] [address]- 7011 Apr, [facility] [place] [facility] [address] [id number] [place] [address]- 3341 Mar, [facility] [place] [facility] [address] [id number] [place] [address]- 8676 Mar, [facility] [place] [facility] [address] [id number] [place] [address]- 1296 Mar, [facility] [place] [facility] [address] [id number] [place] [address]- 1536 Mar, [facility] [place] [facility] [address] [id number] [place] [address]- 1985 Jan, [facility] [place] [facility] [address] [id number] [place] [address]- 5441 Jan, [facility] [place] [facility] [address] [id number] [place] [address]- 7465 December, [facility] [place] [facility] [address] [id number] [place] [address]- 0607 December, [facility] [place] [facility] [address] [id number] [place] [address]- 8283 December, [facility] [place] [facility] [address] [id number] [place] 5004 December, [facility] [place] [facility] [address] [id number] [place] [address]- 2504 December, [facility] [place] [facility] [address] [id number] [place] 2269 December, [facility] [place] [facility] [address] [id number] [place] [address]- 7703 December, [facility] [place] [facility] [address] [id number] [place] [address]- 4157 December, [facility] [place] [facility] [address] [id number] [place] [address]- 7824 Dec, [facility] [place] [facility] [address] [id number] [place] [address]- 0196 Dec, [facility] [place] [facility] [address] [id number] [place] [address]- 3380 Dec, [facility] [place] [facility] [address] [id number] [place] [address]- 0021 Dec, [facility] [place] [facility] [address] [id number] [place] [address]- 4942 Oct, [facility] [place] [facility] [address] [id number] [place] [address]- 4251 Oct, [facility] [place] [facility] [address] [id number] [place] [address]- 4357 Oct, [facility] [place] [facility] [address] [id number] [place] [address]- 2207 Oct, [facility] [place] [facility] [address] [id number] [place] [address]- 0192 Oct, [facility] [place] [facility] [address] [id number] [place] [address]- 3100 Oct, [facility] [place] [facility] [address] [id number] [place] [address]- 7176 Oct, [facility] [place] [facility] [address] [id number] [place] [address]- 4999 Oct, [facility] [place] [facility] [address] [id number] [place] [address]- 6469 Oct, [facility] [place] [facility] [address] [id number] [place] [address]- 1828 Oct, [facility] [place] [facility] [address] [id number] [place] [address]- 0967 Oct, [facility] [place] [facility] [address] [id number] [place] [address]- 0477 Oct, [facility] [place] [facility] [address] [id number] [place] [address]- 5295 Oct, [facility] [place] [facility] [address] [id number] [place] [address]- 2425 Oct, [facility] [place] [facility] [address] [id number] [place] [address]- 7963 10 Oct, 2013 [facility] [place] [facility] [address] [id number] [place] [address]- 3610 Oct, 2013 [facility] [place] [facility] [address] [id number] [place] [address]- 2916 Oct, 2013 [facility] [place] [facility] [address] [id number] [place] [address]- 1612 Oct, 2013 [facility] [place] [facility] [address] [id number] [place] [address]- 8631 Oct, [facility] [place] [facility] [address] [id number] [place] [address]- 5524 Oct, [facility] [place] [facility] [address] [facility] [id number] [place] [address]- 3809 Oct, [facility] [place] [facility] [address] [id number] [place] [address]- 2499 Oct, [facility] [place] [facility] [address] [id number] [place] [address]- 4368 Sep, [facility] [place] [facility] [address] [facility] [id number] [place] [address]- 5529 Sep, [facility] [place] [facility] [address] [facility] [id number] [place] [address]- 4530 Sep, [facility] [place] [facility] [address] [id number] [place] [address]- 0808 Sep, [facility] [place] [facility] [address] [id number] [place] [address]- 3630 Aug, [facility] [place] [facility] [address] [id number] [place] [address]- 4576 Aug, [facility] [place] [facility] [address] [id number] [place] [address]- 9227 Aug, [facility] [place] [facility] [address] [id number] [place] [address]- 5865 Aug, [facility] [place] [facility] [address] [id number] [place] [address]- 3643 Aug, [facility] [place] [facility] [address] [id number] [place] 0959 Aug, [facility] [place] [facility] [address] [id number] [place] [address]- 9320 Aug, [facility] [place] [facility] [address] [id number] [place] [address]- 9169 Aug, [facility] [place] [facility] [address] [id number] [place] 4881 Aug, [facility] [place] [facility] [address] [id number] [place] [address]- 1192 Jul, [facility] [place] [facility] [address] [id number] [place] [address]- 4143 Jul, [facility] [place] [facility] [address] [id number] [place] [address]- 4358 Jul, [facility] [place] [facility] [address] [id number] [place] [address]- 9442 Jul, [facility] [place] [facility] [address] [id number] [place] [address]- 7302 Jul, [facility] [place] [facility] [address] [id number] [place] [address]- 8725 Jul, [facility] [place] [facility] [address] [id number] [address]- 2562 Jul, [facility] [place] [facility] [address] [id number] 4527 Jul, [facility] [place] [facility] [address] [id number] [place] [address]- 6594 Jun, [facility] [place] [facility] [address] [id number] [place] [address]- 5365 Jun, [facility] [place] [facility] [address] [id number] [place] [address]- 1072 Jun, [facility] [address] [id number] [place] [address]- 2123 Jun, [facility] [place] [facility] [address] [id number] [place] [address]- 7182 Jun, [facility] [address] [id number] [place] [address]- 8928 Jun, [facility] [place] [facility] [address] [id number] [place] [address]- 2882 Jun, [facility] [address] [id number] [place] [address] Jun, [facility] [place] [facility] [address] [id number] [place] [address] 30 May, 2013 [facility] [place] [facility] [address] [id number] [place] [address] 26 May, 2013 [facility] [address] [id number] [place] [address] 23 May, 2013 [facility] [place] [facility] [address] [id number] [place] [address] 19 May, 2013 [facility] [place] [facility] [address] [id number] [place] [address] 12 May, 2013 [facility] [place] [facility] [address] [id number] [place] [address] 11 May, 2013 [facility] [place] [facility] [address] [id number] [place] [address] Apr, [facility] [place] [facility] [address] [id number] [place] [address] Apr, [facility] [place] [facility] [address] [id number] [place] [address] Apr, [facility] [place] [facility] [address] [id number] [place] [address] Apr, [facility] [place] [facility] [address] [id number] [place] [address] Apr, [facility] [place] [facility] [address] [id number] [place] [address] Apr, [facility] [place] [facility] [address] [id number] [place] [address] Apr, [facility] [place] [facility] [address] [id number] [place] [address] Mar, [facility] [place] [facility] [address] [id number] [place] [address] Mar, [facility] [place] [facility] [address] [id number] [place] [address] Mar, [facility] [place] [facility] [address] [id number] [place] [address] Mar, [facility] [place] [facility] [address] [id number] [place] [address] Mar, [facility] [place] [facility] [address] [id number] [place] [address] Mar, [facility] [place] [facility] [address] [id number] [place] [address] Mar, [facility] [place] [facility] [address] [id number] [place] [address] Jan, [facility] [place] [facility] [address] [id number] [place] [address] Jan, [facility] [place] [facility] [address] [id number] [place] [address] Jan, [facility] [place] [facility] [address] [id number] [place] [address] Jan, [facility] [place] [facility] [address] [id number] [place] [address] Jan, [facility] [place] [facility] [address] [id number] [place] [address] Jan, [facility] [address] [id number] [place] [address] Jan, [facility] [address] [id number] [place] [address] December, [facility] [address] [id number] [place] [address] December, [facility] [address] [id number] [place] [address] December, [facility] [address] [id number] [place] [address] December, [facility] [address] [id number] [place] [address] Dec, [facility] [address] [id number] [place] [address] Dec, [facility] [address] [id number] [place] [address] Dec, [facility] [address] [id number] [place] [address] 29 Oct, 2012 [facility] [address] [id number] [place] [address] Oct, [facility] [address] [id number] [place] [address] Oct, [facility] [address] [id number] [place] [address] Oct, [facility] [address] [id number] [place] [address] Oct, [facility] [address] [id number] [place] [address]265 Oct, [facility] [address] [id number] [place] [address] 18 Oct, 2012 [facility] [address] [id number] [place] [address]- [address] Oct, [facility] [place] [facility] [address] [id number] [place] [address] Oct, [facility] [place] [facility] [address] [id number] [place] [address] 08 Oct, 2012 [facility] [place] [facility] [address] [id number] [place] [address] Oct, [facility] [place] [facility] [address] [id number] [place] [address] Sep, [facility] [place] [facility] [address] [id number] [place] [address] Sep, [facility] [address] [id number] [place] [address] Sep, [facility] [address] [id number] [place] [address] Aug, [facility] [place] [facility] [address] [id number] [place] [address] Aug, [facility] [place] [facility] [address] [id number] [place] [address] Aug, [facility] [place] [facility] [address] [id number] [place] [address] Aug, [facility] [place] [facility] [address] [id number] [place] [address] Jul, [facility] [place] [facility] [address] [id number] [place] [address] Jul, [facility] [place] [facility] [address] [id number] [place] [address] Jul, [facility] [place] [facility] [address] [id number] [place] [address] Jul, [facility] [place] [facility] [address] [id number] [place] [address] Jul, [facility] [place] [facility] [address] [id number] [place] [address] Jul, [facility] [place] [facility] [address] [id number] [place] [address] Jul, [facility] [place] [facility] [address] [id number] [place] [address] Jul, [facility] [place] [facility] [address] [id number] [place] [address] Jun, [facility] [place] [facility] [address] [id number] [place] [address] Jun, [facility] [place] [facility] [address] [id number] [place] [address] Jun, [facility] [place] [facility] [address] [id number] [place] [address]70 Jun, [facility] [place] [facility] [address] [id number] [place] [address] Jun, [facility] [place] [facility] [address] [id number] [place] [address] 26 May, 2012 [facility] [place] [facility] [address] [id number] [place] [address] 20 May, 2012 [facility] [place] [facility] [address] [id number] [place] [address]70 18 May, 2012 [facility] [place] [facility] [address] [id number] [place] [address] May, [facility] [place] [facility] [address] [id number] [place] [address]107 May, [facility] [place] [facility] [address] [id number] [place] [address] Apr, [facility] [place] [facility] [address] [id number] [place] [address] 1106 Apr, [facility] [place] [facility] [address] [id number] [place] [address] 16 Apr, 2012 [facility] [place] [facility] [address] [id number] [place] [address] Apr, [facility] [place] [facility] [address] [id number] [place] [address] Apr, [facility] [place] [facility] [address] [id number] [place] [address]486 Apr, [facility] [place] [facility] [address] [id number] [place] [address] Apr, [facility] [place] [facility] [address] [id number] [place] [address] Mar, [facility] [place] [facility] [address] [id number] [place] [address] Mar, [facility] [place] [facility] [address] [id number] [place] [address] 8099 Mar, [facility] [place] [facility] [address] [id number] [place] [address]876 Mar, [facility] [place] [facility] [address] [id number] [place] [address] Jan, [facility] [place] [facility] [address] [id number] [place] [address] Jan, [facility] [place] [facility] [address] [id number] [place] [address] Jan, [facility] [place] [facility] [address] [id number] [place] [address] Jan, [facility] [place] [facility] [address] [id number] [place] [address] 7818 Jan, [facility] [place] [facility] [address] [id number] [place] [address] Jan, [facility] [place] [facility] [address] [id number] [place] [address] 59[address] December, [facility] [place] [facility] [address] [id number] [place] [address] 40[address] December, [facility] [place] [facility] [address] [id number] [place] [address]269 December, [facility] [place] [facility] [address] [id number] [place] [address] December, [facility] [place] [facility] [address] [id number] [place] [address]80 Dec, [facility] [place] [facility] [address] [id number] [place] [address] 28[address] Dec, [facility] [place] [facility] [address] [id number] [place] [address] 408[address] Oct, [facility] [place] [facility] [address] [id number] [place] [address] Oct, [facility] [place] [facility] [address] [id number] [place] [address] 1157 Oct, [facility] [place] [facility] [address] [id number] [place] [address] 0414 Oct, [facility] [place] [facility] [address] [id number] [place] [address]32 Oct, [facility] [place] [facility] [address] [id number] [place] [address] 1293 Oct, [facility] [place] [facility] [address] [id number] [place] [address] 4081 Oct, [facility] [place] [facility] [address] [id number] [place] [address] 6869 Oct, [facility] [place] [facility] [address] [id number] [place] [address] 4696 Oct, [facility] [place] [facility] [address] [id number] [place] [address] 3617 Oct, [facility] [place] [facility] [address] [id number] [place] [address]01 02 Oct, 2011 [facility] [address] [id number] [place] [address] 1213 Sep, [facility] [place] [facility] [address] [id number] [place] [address]- 7436 Sep, [facility] [address] [id number] [place] [address] 7760 Sep, [facility] [place] [facility] [address] [id number] [place] [address]- 2980 Sep, [facility] [address] [id number] [place] [address]- 6760 Sep, [facility] [place] [facility] [address] [id number] [place] [address] 8993 Sep, [facility] [address] [id number] [place] [address]- 2969 Sep, [facility] [place] [facility] [address] [id number] [place] [address] Sep, [facility] [place] [facility] [address] [id number] [place] [address] 9931 Aug, [facility] [place] [facility] [address] [id number] [place] [address] 6626 Aug, [facility] [place] [facility] [address] [id number] [place] [address]- 9469 Aug, [facility] [place] [facility] [address] [id number] [place] [address] 9156 Jul, [facility] [place] [facility] [address] [id number] [place] [address]- 1076 Jul, [facility] [place] [facility] [address] [id number] [place] [address] 3042 18 Jul, 2011 [facility] [place] [facility] [address] [id number] [place] [address]- 4179 17 Jul, 2011 [facility] [place] [facility] [address] [id number] [place] [address]- 6281 08 Jul, 2011 [facility] [place] [facility] [address] [id number] [place] [address]- 1657 02 Jul, 2011 [facility] [place] [facility] [address] [id number] [place] [address]- 6901 31 Jun, 2011 [facility] [place] [facility] [address] [id number] [place] [address], [place] [address]- [address]75 Jun, [facility] [place] [facility] [address] [id number] [place] [address]- 1580 Mar, [facility] [place] [facility] [address] [id number] [place] [address]- 6505 14 Dec, 2010 [facility] [address] [id number] [place] [address]- 2246 Oct, [facility] [address] [id number] [place] [address]- 0833 Aug, [facility] [place] [facility] [address] [id number] [place] [address]- 8890 30 Jul, 2010 [facility] [place] [facility] [address] [id number] [place] [address]- 0611 Jul, [facility] [place] [facility] [address] [id number] [place] [address]- 8171 Jul, [facility] [place] [facility] [address] [id number] [place] [address]- 4250 Jul, [facility] [place] [facility] [address] [id number] [place] [address]- 2058 Jul, [facility] [place] [facility] [address] [id number] [place] [address]- 3322 Aug, [facility] [place] [facility] [address] [id number] [place] [address]- 7702 15 Aug, 2009 [facility] [place] [facility] [address] [id number] [place] [address] Aug, [facility] [address] [facility] [id number] [place] [address] 2546 Aug, [facility] [address] [facility] [id number] [place] [address]46 Jul, [facility] [id number] [address] 25[address] Jul, [facility] [address] [id number] [address] Jul, [facility] [address] [id number] [address] Jul, [facility] [address] [id number] [address] 2546 Jun, [facility] [address] [id number] [address] 2546 Jun, IMMUNIZATIONS No Known Immunizations SOCIAL HISTORY Never Assessed REASON FOR VISIT Decrease kidney function, PT has been getting dizzy when standing and possible DM. PT has restless legg syndrom more than normal in her left knee and ankle swellin gin her right ankle. PT is also wanting back on pain medications- Yusuf RAUSCH PLAN OF CARE Activity Details Follow Up 3 Months Reason:hyperinsulin VITAL SIGNS Height 64 in 2017-03-04 Weight 225.6 lbs 2017-03-04 Temperature 98.2 degrees Fahrenheit 2017-03-04 Heart Rate 62 bpm 2017-03-04 Respiratory Rate 18 2017-03-04 BMI 38.72 kg/m2 2017-03-04 Blood pressure systolic 122 mmHg 2017-03-04 Blood pressure diastolic 76 mmHg 2017-03-04 MEDICATIONS Medication Instructions Dosage Frequency Start Date End Date Duration Status Fish Oil 1000 MG Orally 3 times a day 1 capsule 8h Active Cyclobenzaprine HCl 10 mg Orally 2 times a day prn back pain 1 tablet as needed Oct, 10 Active Folic Acid 1 MG Orally Once a day 1 tablet 24h December, December, 90 days Active Toprol XL 100 MG Orally Once a day 1 tablet at bedtime 24h 90 Active Neurontin 300 MG Orally 2 times a day 1 capsule 12h 15 Aug, 2016 30 days Active Doxepin HCl 25 MG Orally Once a day 1-2 capsules at bedtime 24h Active Levothyroxine Sodium 100 MCG Orally Once a day 1 tablet 24h 30 Active Requip 1 MG Orally twice a day 1 tablet 12h 90 days Active Pravastatin Sodium 80 MG TAKE ONE TABLET BY MOUTH AT BEDTIME (AVOID GRAPEFRUIT JUICE AND PRODUCTS WITH GRAPEFRUIT) 90 Active MetFORMIN HCl ER 500 mg Orally twice a day 1 tablet with evening meal 12h Jan, 30 day(s) Active Pantoprazole Sodium 40 MG Orally Once a day 1 tablet 24h 90 Active Spironolactone 25 MG Orally Twice a day 1 tablet 12h Mar, Mar, 07 days Active Truvada 200-300 mg Orally Once a day 1 tablet 24h 30 Active Albuterol Sulfate 90 mcg/actuation 2 puffs by Inhalation route every 4-6 hours as needed PRN cough or wheezing Aug, Active Effexor XR 150 MG Orally Once a day 2 capsule with food 24h 30 Active Lisinopril 20 MG Orally Once a day 1 tablet 24h 30 Active HydrOXYzine HCl 25 MG Orally every 8 hrs 1 tablet as needed 8h Jan, 30 day(s) Active RESULTS No Results PROCEDURES Procedure Date Ordered Result Body Site [facility] VISIT ESTABLISHED PATIENT March 04, 2017 INSTRUCTIONS MEDICATIONS ADMINISTERED No Known [...]
--- OUTSIDE RECORDS SUMMARY | 2018-03-17 11:26 | XMS REPORT ---
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 Active 79820358 Problem Attention-deficit hyperactivity disorder, predominantly inattentive type F90.0 Active 11856685 Problem Obstructive sleep apnea G47.33 Active 35267272 Problem Primary insomnia F51.01 Active 2264152 Problem Neuralgia M79.2 Active 37642289 Problem Cannabis use disorder, mild, abuse F12.10 Active 03967283 Problem Folic acid deficiency E53.8 Active 426777852 Problem Restless legs G25.81 Active 22851628 Problem Major depressive disorder, recurrent, mild F33.0 Active 64958409 Problem Generalized anxiety disorder F41.1 Active 59581280 Problem Major depressive disorder, recurrent episode, moderate F33.1 Active 618582655 Problem Hypertension I10 Active 06343193 Problem Hyperlipidemia E78.5 Active 22390215 Problem Primary osteoarthritis of both knees M17.0 Active 202259595 Problem Chronic hepatitis K73.9 Active 13180480 Problem Low back pain M54.5 Active 457844280 Problem Chronic viral hepatitis B without delta-agent B18.1 Active 802334241 Problem Insomnia G47.00 Active 989970069 Problem Hypothyroid E03.9 Active 52207022 Problem Depression, major, recurrent, mild F33.0 Active 594295304 Problem Obesity due to excess calories, unspecified obesity severity E66.09 Active 466795277 ALLERGIES No Information ENCOUNTERS Encounter Location Date Diagnosis [facility] [address] [facility] [id number] [address] December, [facility] [address] [facility] [id number], [place] [address] Dec, Bone pain M89.8X9 [facility] [id number] [place] [address] 34832- 3463 Dec, [facility] [id number] [place] [address] 67596- 3324 Oct, [facility] [id number] [place] [address] 86693- 0855 Oct, Syncope, unspecified syncope type R55 ; Primary insomnia F51.01 ; Dry mouth R68.2 and Cannabis use disorder, mild, abuse F12.10 [facility] [id number] [place] [address] 69316- 8632 Oct, [facility] [id number] [place] [address] 44116- 2674 Sep, [facility] [id number] [place] [address] 16664- 9865 Sep, [facility] [id number] [place] [address] 46019- 6142 Sep, [facility] [address] [id number] Sep, Dental examination Z01.20 [facility] [id number] [place] [address] 39971- 4022 Sep, Dental examination Z01.20 [facility] [id number] [place] [address] 48544- 1278 Sep, Sinus congestion R09.81 ; Mouth sores K13.79 ; Low back pain M54.5 and Mouth swelling R22.0 [facility] [id number] [place] [address] 73552- 2424 Aug, Low back pain M54.5 [facility] [id number] [place] [address] 91683- 6591 Aug, Low back pain M54.5 [facility] [id number] [place] [address] 52532- 9556 Jul, [facility] [address] 38090- 2622 Jul, Encounter for immunization Z23 ; 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 ; Hypothyroid E03.9 ; Decreased renal function N28.9 and Muscle cramps R25.2 [facility] [address] 98837- 3346 Jul, [facility] [address] 98662- 2721 Jul, [place] [address] 90635- 5132 Jul, [place] [address] 14807- 2849 Jul, Major depressive disorder, recurrent, mild F33.0 [place] [address] 31761- 2854 Jul, Acquired cyst of kidney N28.1 ; Acidosis E87.2 and Hyperkalemia E87.5 [place] [address] 99257- 1238 Jul, Major depressive disorder, recurrent, mild F33.0 ; Attention -deficit hyperactivity disorder, predominantly inattentive type F90.0 and Generalized anxiety disorder F41.1 [place] [address] 19342- 7425 Jul, Low back pain M54.5 [facility] [address] 12423- 6248 Jun, Cough R05 ; Low back pain M54.5 and Pre-syncope R55 [facility] [address] 77253- 4956 Jun, Low back pain M54.5 [facility] [id number] [place] [address] [id number] Jun, Dental caries K02.9 [place] [address] 73503- 2257 Jun, [place] [address] [place] 587035- 8720 Jun, Major depressive disorder, recurrent, mild F33.0 ; Attention -deficit hyperactivity disorder, predominantly inattentive type F90.0 and Generalized anxiety disorder F41.1 [place] [address] 24229- 7998 May, Vertigo R42 ; Confusion R41.0 ; Weakness R53.1 and Vision changes H53.9 [place] [address] 08071- 3271 May, [place] [address] 82738- 1177 May, [place] [address] 42430- 3051 May, Low back pain M54.5 [place] [id number] [place] [address] 15451- 5945 May, Major depressive disorder, recurrent, mild F33.0 ; Attention -deficit hyperactivity disorder, predominantly inattentive type F90.0 and Generalized anxiety disorder F41.1 [place] [id number] [place] [address] 86629- 6368 May, [place] [address] 58621- 5923 May, Acute worsening of stage 3 chronic kidney disease N18.3 [place] [address] 22293- 2452 Apr, [place] [address] 05487- 7610 Apr, Acute allergic rhinitis due to pollen, unspecified seasonality J30.1 ; Restless legs G25.81 and Low back pain M54.5 [place] [address] [address] 6[address] 10 Apr, 2017 Primary osteoarthritis of both knees M17.0 [facility] [id number] [place] [address] 58511- 5467 08 Apr, 2017 Generalized anxiety disorder F41.1 [facility] [id number] [place] [address] 89346- 6862 07 Apr, 2017 Major depressive disorder, recurrent, mild F33.0 ; Attention -deficit hyperactivity disorder, predominantly inattentive type F90.0 and Generalized anxiety disorder F41.1 [facility] [id number] [place] [address] 43164- 1432 Apr, [facility] [id number] [place] [address] 33054- 1096 Mar, Major depressive disorder, recurrent episode, moderate F33.1 ; Generalized anxiety disorder F41.1 and ADHD, predominantly inattentive type F90.0 [facility] [id number] [place] [address] 70604 -4132 Mar, Abscess L02.91 [facility] [id number] [place] [address] 32929- 5164 Mar, 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 [facility] [id number] [place] [address] 35469- 7177 Mar, Decreased renal function N28.9 [facility] [id number] [place] [address] [id number] Mar, Dental examination Z01.20 [facility] [id number] [place] [address] 94183- 3626 17 Mar, 2017 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 [facility] [id number] [place] [address] 12946- 1526 Mar, 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 [facility] [id number] [place] [address] [id number] Mar, Dental examination Z01.20 and Dental caries K02.9 [place] [address], [place] [address]- 0304 12 Mar, 2017 Chronic viral hepatitis B without delta-agent B18.1 ; Folic acid deficiency E53.8 ; 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 and Decreased renal function N28.9 [place] [address], [place] [address]- 8401 Mar, Major depressive disorder, recurrent, mild F33.0 [place] [id number] [place] [address] 82775- 9181 Mar, [place] [id number] [place] [address] 34424- 0182 Mar, Chronic hepatitis K73.9 ; 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 ; Localized edema R60.0 ; Illicit drug use F19.90 ; Vision changes H53.9 and Obesity due to excess calories, unspecified obesity severity E66.09 [place] [id number] [place] [address] 52339- 1576 Jan, Major depressive disorder, recurrent, mild F33.0 [place] [id number] [place] [address] 87085- 7436 Jan, Chronic viral hepatitis B without delta-agent B18.1 [place] [id number] [place] [address] 48666- 2002 Jan, [place] [id number] [place] [address] 35679- 5824 Jan, Weight gain R63.5 ; Hypothyroid E03.9 ; 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 ; Decreased renal function N28.9 and Chronic viral hepatitis B without delta-agent B18.1 [place] [id number] [place] [address] 91545- 2823 December, Major depressive disorder, recurrent, mild F33.0 and Generalized anxiety disorder F41.1 [place] [address] [place] [address] 20663- 8150 December, Obesity due to excess calories, unspecified obesity severity E66.09 and Folic acid deficiency E53.8 [facility] [address], [place] [address]- 9894 December, Folic acid deficiency E53.8 [facility] [id number] [place] [address] 85030- 0234 December, Folic acid deficiency E53.8 [facility] [id number] [place] [address] 76480- 1886 December, Obesity due to excess calories, unspecified obesity severity E66.09 [facility] [id number] [place] [address] 02282- 9590 December, [facility] [id number] [place] [address] 54966- 2977 December, Folic acid deficiency E53.8 [facility] [id number] [place] [address] [id number] December, Encounter for other administrative examinations Z02.89 [facility] [id number] [place] [address] 62537- 0472 Dec, [facility] [id number] [place] [address] [id number] Dec, Dental caries K02.9 [facility] [id number] [place] [address] 82846- 7135 Oct, Bone pain M89.8X9 [facility] [id number] [place] [address] 47488- 4575 Oct, Hypothyroid E03.9 [facility] [id number] [place] [address] 98916- 2863 24 Oct, 2016 Hypothyroid E03.9 [facility] [id number] [place] [address] 99930- 0023 13 Oct, 2016 Breast cancer screening Z12.39 [facility] [id number] [place] [address] [phone] Oct, Dental examination Z01.20 [place] [id number] [place] [address] 22359- 6779 Oct, [place] [id number] [place] [address] 27206- 5128 Oct, Major depressive disorder, recurrent, mild F33.0 and Generalized anxiety disorder F41.1 [place] [id number] [place] [address] 44707- 7379 Oct, [place] [id number] [place] [address] 63119- 5055 Oct, Hypothyroid E03.9 [place] [address] 54664- 2230 Sep, Hypothyroid E03.9 ; Chronic viral hepatitis B without delta- agent B18.1 and Folic acid deficiency E53.8 [place] [id number] [place] [address] 52441- 9230 Sep, Hypothyroidism, unspecified type E03.9 ; Elevated parathyroid hormone E34.9 and Chronic viral hepatitis B without delta-agent B18.1 [place] [id number] [place] [address] 98416- 5159 Sep, [place] [id number] [place] [address] 45421- 8541 Sep, Elevated parathyroid hormone E34.9 [place] [id number] [place] [address] 91680- 2654 Sep, [place] [id number] [place] [address] 92788- 0852 Sep, Chronic hepatitis K73.9 ; Bone pain M89.8X9 and Abnormal complete blood count R79.89 [place] [id number] [place] [address] 17577- 7888 Aug, Major depressive disorder, recurrent, mild F33.0 [place] [address] [place] [address]- 1392 Aug, Bone pain M89.8X9 [facility] [address] 39265- 9810 Aug, [facility] [id number] [place] [address] 98168- 0591 Jul, Chronic viral hepatitis B without delta-agent B18.1 [facility] [address] 30922- 2263 Jul, Hypothyroidism, unspecified type E03.9 [facility] [address] 45799- 5384 Jul, [facility] [address] 04000- 6430 Jul, Chronic hepatitis K73.9 and Hypothyroid E03.9 [place] [address] 21470- 2301 Jul, Low back pain M54.5 [facility] [address] 76983- 8696 Jun, Depression, major, recurrent, mild F33.0 and ADD (attention deficit disorder) F90.0 [place] [id number] [place] [address] 32013- 7437 Jun, [facility] [address] 70388- 6520 Jun, Low back pain M54.5 [facility] [id number] [place] [address] 83920- 4502 Jun, Encounter for immunization Z23 ; Major depressive disorder, recurrent, mild F33.0 and Attention-deficit hyperactivity disorder, predominantly inattentive type F90.0 [facility] [id number] [place] [address] 73182- 7055 Jun, [facility] [address] 74870- 1983 Jun, Low back pain M54.5 [facility] [id number] [place] [address] 38528- 2487 May, [facility] [id number] [place] [address] 61800- 4949 May, [facility] [id number] [place] [address] 31534- 5309 May, Essential (primary) hypertension I10 [facility] [id number] [place] [address] 57674- 7908 May, Low back pain M54.5 [facility] [id number] [place] [address] 18694- 9265 May, Low back pain M54.5 ; Chronic hepatitis K73.9 and Hypothyroid E03.9 [facility] [id number] [place] [address] 99301- 5052 May, Hypothyroidism, unspecified type E03.9 [facility] [id number] [place] [address] 58174- 5758 08 May, 2016 Low back pain M54.5 [facility] [id number] [place] [address] 25982- 4692 May, [facility] [id number] [place] [address] 33145- 3493 May, [facility] [id number] [place] [address] 70846- 5861 May, Major depressive disorder, recurrent, moderate F33.1 ; Generalized anxiety disorder F41.1 ; Insomnia G47.00 and ADD (attention deficit disorder) F90.0 [facility] [id number] [place] [address] 10658- 1887 Apr, Low back pain M54.5 [facility] [id number] [place] [address] 83640- 9998 Apr, [place] [address] [place] [address] 81803- 2282 Apr, Low back pain M54.5 [place] [id number] [place] [address] 98146- 8425 Apr, Low back pain M54.5 ; Tooth pain K08.8 and Seasonal allergic rhinitis due to pollen J30.1 [place] [id number] [place] [address] 31066- 0649 Apr, Low back pain M54.5 [place] [id number] [place] [address] 87209- 1060 Apr, LGS[facility] Pap smear of vagina R87.622 [place] [id number] [place] [address] 27933- 2117 Apr, Low back pain M54.5 [place] [id number] [place] [address] 66418- 4869 Mar, [place] [id number] [place] [address] 60382- 1959 Mar, Low back pain M54.5 [place] [id number] [place] [address] 58596- 5871 Mar, Encounter for Papanicolaou smear for cervical cancer screening Z12.4 ; Encounter for routine gynecological examination Z01.419 and Breast cancer screening Z12.39 [place] [address] [place] [address] 71213- 1284 18 Mar, 2016 Hypothyroidism, unspecified type E03.9 [place] [id number] [place] [address] 27239- 8870 14 Mar, 2016 Low back pain M54.5 ; Other chronic pain G89.29 ; Hypothyroid E03.9 and Hypothyroidism, unspecified type E03.9 [place] [address] [place] [address] 49109- 4595 Mar, Major depressive disorder, recurrent, moderate F33.1 and Attention-deficit hyperactivity disorder, predominantly inattentive type F90.0 [facility] [address], [place] [address] -1735 Mar, Bronchitis J40 [facility] [id number] [place] [address] 45637- 0485 Jan, [facility] [id number] [place] [address] 25728- 2626 Jan, [facility] [id number] [place] [address] 27747- 8982 Jan, Insomnia G47.00 [facility] [id number] [place] [address] 47788- 0263 December, [facility] [id number] [place] [address] 08877- 8029 December, Major depressive disorder in partial remission F32.4 and Attention-deficit hyperactivity disorder, unspecified type F90.9 [facility] [id number] [place] [address] 28899- 8813 December, [facility] [id number] [place] [address] 63389- 5652 December, [facility] [id number] [place] [address] 23170- 9042 Dec, [facility] [address] [place] [address] 82579- 0508 Dec, Major depressive disorder, recurrent episode, moderate 296.32 and Attention deficit disorder of childhood without mention of hyperactivity 314.00 [facility] [id number] [place] [address] 95369- 4481 Dec, Major depressive disorder, recurrent episode, mild 296.31 ; ADD (attention deficit disorder) F90.0 and Hyperlipidemia E78.5 [facility] [address], [place] [address]- 5408 Dec, Insomnia G47.00 [facility] [address] [place] [address]- 0440 Dec, Attention-deficit hyperactivity disorder, predominantly inattentive type F90.0 [facility] [id number] [place] [address] 76005- 7010 Oct, Restless legs syndrome G25.81 [facility] [address], [place] [address]- 1151 Oct, Hypothyroidism, unspecified type E03.9 [facility] [id number] [address]- 0114 Oct, [facility] [id number] [place] [address] 33940- 4915 Oct, [facility] [id number] [place] [address] 62906- 0849 15 Nov, 2015 Hypothyroid E03.9 and Chronic hepatitis K73.9 [facility] [id number] [place] [address] 55176- 6165 Oct, [facility] [address] [place] [address] 95992- 3637 Oct, Restless legs syndrome G25.81 ; Chronic hepatitis K73.9 ; Hypertension I10 ; Hypothyroid E03.9 and Breast cancer screening Z12.39 [facility] [address], [place] [address]- 1029 Oct, [facility] [address] [place] [address] Oct, [facility] [id number] [address] Oct, [facility] [id number] [place] [address] Oct, [facility] [id number] [place] [address] Oct, [facility] [id number] [address] 10 Oct, 2015 [facility] [id number] [place] [address] 05 Oct, 2015 [facility] [id number] [place] [id number]- [address] Sep, [facility] [id number] [place] [phone] Sep, Attention-deficit hyperactivity disorder, predominantly inattentive type F90.0 and Major depressive disorder in partial remission F32.4 [facility] [id number] [place] [address] Sep, [facility] [id number] [place] [address]- [address] Aug, [facility] [id number] [place] [id number]- [address] Aug, [facility] [id number] [place] [id number]- [address] Aug, Major depressive disorder, recurrent, mild F33.0 ; Attention -deficit hyperactivity disorder, unspecified type F90.9 and Generalized anxiety disorder F41.1 [facility] [id number] [place] [address] 08 Aug, 2015 Chronic hepatitis K73.9 ; Primary osteoarthritis of both knees M17.0 and Neuralgia M79.2 [facility] [address] [address] Jul, [facility] [address], [place] [address] 5056 Jul, [facility] [id number] [place] [address] 34044- 1486 Jul, [facility] [id number] [place] [address] 30452- 6429 Jul, [facility] [id number] [place] [address] 85348- 1182 Jun, [facility] [id number] [place] [address] 78319- 0284 Jun, Encounter for immunization Z23 and Bronchitis J40 [facility] [id number] [place] [address] 19714- 1743 30 May, 2015 [facility] [id number] [place] [address] 43359- 6016 May, [facility] [id number] [place] [address] 12186- 6966 May, [facility] [id number] [place] [address] 82306- 8052 May, Hypokalemia 276.8 [facility] [id number] [place] [address] 48694- 5404 08 May, 2015 Major depressive disorder, recurrent episode, mild 296.31 ; Attention deficit disorder of childhood without mention of hyperactivity 314.00 and Generalized anxiety disorder 300.02 [facility] [id number] [place] [address] 17947- 6740 May, Hypertension 401.9 and Hypokalemia 276.8 [facility] [id number] [place] [address] 62230- 2741 May, [facility] [id number] [place] [address] 53263- 3910 Apr, [facility] [id number] [place] [address] 31534- 9880 Apr, [facility] [id number] [place] [address] 19200- 2268 Apr, [facility] [id number] [place] [address] 62046- 4768 Apr, [facility] [address], [place] [address]- 6200 Mar, [facility] [address], [place] [address]- 5196 Mar, [facility] [id number] [place] [address] 82116- 5819 Mar, [facility] [id number] [place] [address] 07590- 8502 Mar, [facility] [id number] [place] [address] 44142- 5658 Mar, Arthritis of both knees 716.96 ; Hepatitis B 070.30 ; Hypertension 401.9 ; Carpal tunnel syndrome 354.0 and Cubital tunnel syndrome 354.2 [facility] [id number] [place] [address] 96353- 2052 Mar, [facility] [id number] [place] [address] 95864- 9620 Mar, [facility] [id number] [place] [address] 47690- 4801 Mar, 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, chronic, without mention of hepatitis delta 070.32 ; Chronic hepatitis C without mention of hepatic coma 070.54 and Major depressive disorder, recurrent episode, moderate 296.32 [facility] [address], [place] [address]- 8575 Jan, [facility] [id number] [place] [address] 27667- 4200 Jan, Major depressive disorder, recurrent episode, mild 296.31 and Attention deficit disorder of childhood without mention of hyperactivity 314.00 [facility] [address], [place] [address]- 1692 Jan, [facility] [id number] [place] [address] 50231- 5087 Jan, [facility] [address], [place] [address]- 5953 December, Attention deficit disorder of childhood without mention of hyperactivity 314.00 ; Major depressive disorder, recurrent episode, mild 296.31 and Generalized anxiety disorder 300.02 [facility] [address] [id number] [place] [address]- 9774 08 Dec, 2014 [facility] [address] [facility] [id number] [place] [address]- 0744 14 Dec, 2014 [facility] [address] [facility] [id number] [place] [address]- 3223 13 Dec, 2014 [facility] [address] [id number], [place] [address]- 3477 19 Oct, 2014 [facility] [address] [facility] [id number] [place] [address]- 6416 19 Oct, 2014 [facility] [address] [facility] [id number] [place] [address]- 5540 18 Oct, 2014 [facility] [id number] [address]- 9518 18 Oct, 2014 [facility] [address] [facility] [id number] [place] [address]- 4823 18 Oct, 2014 [facility] [address] [facility] [id number] [place] [address]- 2965 18 Oct, 2014 [facility] [address] [facility] [id number] [place] [address]- 7157 16 Oct, 2014 [facility] [address] [facility] [id number], [place] [address]- 6901 13 Oct, 2014 [facility] [place] [facility] [address] [facility] [id number], [place] [address]- 0252 13 Oct, 2014 [facility] [place] [facility] [address] [facility] [id number], [place] [address]- 6040 12 Oct, 2014 [facility] [place] [facility] [address] [facility] [id number], [place] [address]- 6749 12 Oct, 2014 [facility] [place] [facility] [address] [facility] [id number], [place] [address]- 1747 10 Oct, 2014 [facility] [address] [facility] [id number] [place] [address]- 3706 10 Oct, 2014 [facility] [place] [facility] [address] [id number] [place] [address]- 2587 Oct, 2014 [facility] [place] [facility] [address] [id number] [place] [address]- 1548 Oct, 2014 [facility] [place] [facility] [address] [id number] [place] [address]- 7758 Oct, 2014 [facility] [place] [facility] [address] [id number] [place] [address]- 6267 Oct, 2014 [facility] [place] [facility] [address] [id number] [place] [address]- 7331 25 Oct, 2014 [facility] [place] [facility] [address] [facility] [id number] [place] [address]- 6841 19 Oct, 2014 [facility] [place] [facility] [address] [facility] [id number] [place] [address]- 6926 18 Oct, 2014 [facility] [place] [facility] [address] [facility] [id number] [place] [address]- 2998 17 Oct, 2014 [facility] [place] [facility] [address] [facility] [id number] [place] [address]- 5420 17 Oct, 2014 [facility] [place] [facility] [address] [facility] [id number] [place] [address]- 1936 11 Oct, 2014 [facility] [place] [facility] [address] [facility] [id number], [place] [address]- 0020 Oct, 2014 [facility] [place] [facility] [address] [facility] [id number] [place] [address]- 2143 Oct, 2014 [facility] [place] [facility] [address] [facility] [id number] [place] [address]- 1564 11 Oct, 2014 [facility] [place] [facility] [address] [facility] [id number], [place] [address]- 3136 10 Oct, 2014 [facility] [place] [facility] [address] [facility] [id number], [place] [address]- 6773 Oct, [facility] [address] [id number] [place] [address]- 0896 Sep, [facility] [place] [facility] [address] [id number] [place] [address]- 4928 Sep, [facility] [place] [facility] [address] [id number] [place] [address]- 2457 Sep, [facility] [place] [facility] [address] [id number] [place] [address]- 7944 Sep, [facility] [place] [facility] [address] [id number] [place] [address]- 4392 Sep, [facility] [place] [facility] [address] [id number] [place] [address]- 2574 Sep, [facility] [place] [facility] [address] [id number] [place] [address]- 0278 Sep, [facility] [place] [facility] [address] [id number] [place] [address]- 6567 Sep, [facility] [place] [facility] [address] [id number] [place] [address]- 5195 Sep, [facility] [place] [facility] [address] [id number] [place] [address]- 8632 Sep, [facility] [place] [facility] [address] [id number] [place] [address]- 8685 Sep, [facility] [place] [facility] [address] [id number], [place] [address]- 6217 Sep, [facility] [place] [facility] [address] [id number], [place] [address]- 9673 Sep, [facility] [place] [facility] [address] [id number] [place] [address]- 0832 Sep, [facility] [place] [facility] [address] [id number], [place] [address]- 9465 Sep, [facility] [place] [facility] [address] [id number] [place] [address]- 3643 Sep, [facility] [place] [facility] [address] [id number] [place] [address]- 5216 Aug, [facility] [place] [facility] [address] [id number] [place] 6496 Aug, [facility] [place] [facility] [address] [id number] [place] [address]- 6286 Aug, [facility] [place] [facility] [address] [id number] [place] [address]- 1499 Aug, [facility] [place] [facility] [address] [id number] [place] [address]- 4496 Aug, [facility] [place] [facility] [address] [id number] [place] [address]- 2859 Aug, [facility] [place] [facility] [address] [id number] [place] [address]- 8760 Aug, [facility] [place] [facility] [address] [id number] [place] [address]- 6924 20 Aug, 2014 [facility] [place] [facility] [address] [id number] [place] [address]- 5663 19 Aug, 2014 [facility] [place] [facility] [address] [id number] [place] [address]- 4219 18 Aug, 2014 [facility] [place] [facility] [address] [id number] [place] [address]- 5456 18 Aug, 2014 [facility] [place] [facility] [address] [id number] [place] [address]- 7256 16 Aug, 2014 [facility] [place] [facility] [address] [id number] [place] 8796 16 Aug, 2014 [facility] [place] [facility] [address] [id number] [place] [address]- 6876 15 Aug, 2014 [facility] [place] [facility] [address] [id number] [place] [address]- 8471 15 Aug, 2014 [facility] [place] [facility] [address] [id number] [place] [address]- 0418 Aug, [facility] [place] [facility] [address] [id number] [place] [address]- 9087 Aug, [facility] [place] [facility] [address] [id number] [place] [address]- 0205 Aug, [facility] [place] [facility] [address] [id number] [place] [address]- 2827 Aug, [facility] [place] [facility] [address] [id number] [place] [address]- 6175 Aug, [facility] [place] [facility] [address] [id number] [place] [address]- 2277 Aug, [facility] [place] [facility] [address] [id number] [place] [address]- 6201 Aug, [facility] [place] [facility] [address] [id number] [place] [address]- 8356 Aug, [facility] [place] [facility] [address] [id number] [place] [address]- 6289 Aug, [facility] [place] [facility] [address] [id number] [place] [address]- 1557 Aug, [facility] [place] [facility] [address] [id number], [place] [address]- 9308 Jul, [facility] [place] [facility] [address] [id number], [place] [address]- 2296 Jul, [facility] [place] [facility] [address] [id number] [place] [address]- 7561 Jul, [facility] [place] [facility] [address] [id number] [place] [address]- 3743 Jul, [facility] [place] [facility] [address] [id number] [place] [address]- 8948 Jul, [facility] [place] [facility] [address] [id number] [place] [address]- 4064 Jul, [facility] [place] [facility] [address] [id number] [place] [address]- 7268 Jun, [facility] [place] [facility] [address] [id number] [place] [address]- 0978 Jun, [facility] [place] [facility] [address] [id number] [place] [address]- 1868 Jun, [facility] [place] [facility] [address] [id number] [place] [address]- 6371 Jun, [facility] [place] [facility] [address] [id number] [place] [address]- 6616 Jun, [facility] [place] [facility] [address] [id number] [place] [address]- 3449 Jun, [facility] [place] [facility] [address] [id number] [place] [address]- 8953 Jun, [facility] [place] [facility] [address] [id number] [place] [address]- 2326 Jun, [facility] [place] [facility] [address] [id number] [place] [address]- 0559 16 May, 2013 [facility] [place] [facility] [address] [id number] [place] [address]- 5045 16 Sep, 2013 [facility] [place] [facility] [address] [id number] [place] [address]- 2548 15 May, 2013 [facility] [place] [facility] [address] [id number] [place] [address]- 3809 15 Sep, 2013 [facility] [place] [facility] [address] [id number] [place] [address]- 6878 08 Sep, 2013 [facility] [place] [facility] [address] [id number] [place] [address]- 0435 08 Sep, 2013 [facility] [place] [facility] [address] [id number] [place] [address]- 8810 May, [facility] [place] [facility] [address] [id number] [place] [address]- 3495 May, [facility] [place] [facility] [address] [id number] [place] [address]- 4155 Apr, [facility] [place] [facility] [address] [id number] [place] [address]- 1666 Apr, [facility] [place] [facility] [address] [id number] [place] [address]- 1725 Apr, [facility] [place] [facility] [address] [id number] [place] [address]- 4373 Apr, [facility] [place] [facility] [address] [id number] [place] [address]- 2379 Apr, [facility] [place] [facility] [address] [id number] [place] [address]- 7270 Apr, [facility] [place] [facility] [address] [id number] [place] [address]- 5606 Apr, [facility] [place] [facility] [address] [id number] [place] [address]- 2721 Apr, [facility] [place] [facility] [address] [id number] [place] [address]- 8072 Apr, [facility] [place] [facility] [address] [id number] [place] [address]- 0539 Apr, [facility] [place] [facility] [address] [id number] [place] [address]- 5260 Apr, [facility] [place] [facility] [address] [id number] [place] [address]- 9350 Apr, [facility] [place] [facility] [address] [id number] [place] [address]- 8516 Apr, [facility] [place] [facility] [address] [id number] [place] [address]- 3604 Mar, [facility] [place] [facility] [address] [id number] [place] [address]- 5266 Mar, [facility] [place] [facility] [address] [id number] [place] [address]- 4211 Mar, [facility] [place] [facility] [address] [id number] [place] [address]- 9755 Mar, [facility] [place] [facility] [address] [id number] [place] [address]- 5504 Jan, [facility] [place] [facility] [address] [id number] [place] [address]- 4379 Jan, [facility] [place] [facility] [address] [id number] [place] [address]- 1774 December, [facility] [place] [facility] [address] [id number] [place] [address]- 3425 December, [facility] [place] [facility] [address] [id number] [place] [address]- 4530 December, [facility] [place] [facility] [address] [id number] [place] [address]- 6062 December, [facility] [place] [facility] [address] [id number] [place] [address]- 3276 December, [facility] [place] [facility] [address] [id number] [place] [address]- 7584 December, [facility] [place] [facility] [address] [id number] [place] [address]- 9421 December, [facility] [place] [facility] [address] [id number] [place] [address]- 5424 December, [facility] [place] [facility] [address] [id number] [place] [address]- 5275 Dec, [facility] [place] [facility] [address] [id number] [place] [address]- 9176 Dec, [facility] [place] [facility] [address] [id number] [place] [address]- 0310 Dec, [facility] [place] [facility] [address] [id number] [place] [address]- 5555 24 Dec, 2013 [facility] [place] [facility] [address] [id number] [place] [address]- 8543 Oct, [facility] [place] [facility] [address] [id number] [place] [address]- 9208 Oct, [facility] [place] [facility] [address] [id number] [place] [address]- 6717 Oct, [facility] [place] [facility] [address] [id number] [place] [address]- 7714 Oct, [facility] [place] [facility] [address] [id number] [place] [address]- 6899 Oct, [facility] [place] [facility] [address] [facility] [id number] [place] [address]- 5505 Oct, [facility] [place] [facility] [address] [id number] [place] [address]- 9199 Oct, [facility] [place] [facility] [address] [id number] [place] [address]- 6658 Oct, [facility] [place] [facility] [address] [id number] [place] [address]- 4977 Oct, [facility] [place] [facility] [address] [facility] [id number] [place] [address]- 2057 Oct, [facility] [place] [facility] [address] [id number] [place] [address]- 2292 Oct, [facility] [place] [facility] [address] [id number] [place] [address]- 7611 Oct, [facility] [place] [facility] [address] [id number] [place] [address]- 6710 Oct, [facility] [place] [facility] [address] [id number] [place] [address]- 0371 Oct, [facility] [place] [facility] [address] [id number] [place] [address]- 1118 Oct, 2013 [facility] [place] [facility] [address] [id number] [place] [address]- 3918 Oct, [facility] [place] [facility] [address] [id number] [place] [address]- 5810 Oct, 2013 [facility] [place] [facility] [address] [id number] [place] [address]- 5410 Oct, 2013 [facility] [place] [facility] [address] [id number] [place] [address] Oct, [facility] [place] [facility] [address] [id number] [place] [address] Oct, [facility] [place] [facility] [address] [id number] [place] [address] Oct, [facility] [place] [facility] [address] [id number] [place] [address] Oct, [facility] [place] [facility] [address] [id number] [place] [address] Sep, [facility] [place] [facility] [address] [id number] [place] [address] Sep, [facility] [place] [facility] [address] [facility] [id number] [place] [address] Sep, [facility] [place] [facility] [address] [id number] [place] [address] Sep, [facility] [place] [facility] [address] [id number], [place] [address] Aug, [facility] [place] [facility] [address] [id number] [place] [address] Aug, [facility] [place] [facility] [address] [facility] [id number] [place] [address] Aug, [facility] [place] [facility] [address] [id number], [place] [address] Aug, [facility] [place] [facility] [address] [id number] [place] [address] Aug, [facility] [place] [facility] [address] [id number] [place] [address] Aug, [facility] [place] [facility] [address] [id number] [place] [address] Aug, [facility] [place] [facility] [address] [id number] [place] [address] Aug, [facility] [place] [facility] [address] [id number] [place] [address] Aug, [facility] [place] [facility] [address] [id number] [place] [address] Jul, [facility] [place] [facility] [address] [id number] [place] [address] Jul, [facility] [place] [facility] [address] [id number] [place] [address] Jul, [facility] [place] [facility] [address] [id number] [place] [address] Jul, [facility] [place] [facility] [address] [id number] [place] [address] Jul, [facility] [place] [facility] [address] [id number] [place] [address] Jul, [facility] [place] [facility] [address] [id number] [place] [address] Jul, [facility] [place] [facility] [address] [id number] [place] [address] Jul, [facility] [place] [facility] [address] [id number] [place] [address] Jun, [facility] [place] [facility] [address] [id number] [place] [address] Jun, [facility] [place] [facility] [address] [id number] [place] [address]- [address] Jun, [facility] [place] [facility] [address] [id number] [place] [address] Jun, [facility] [place] [facility] [address] [id number] [place] [address] Jun, [facility] [place] [facility] [address] [id number] [place] [address] Jun, [facility] [place] [facility] [address] [id number] [place] [address] Jun, [facility] [place] [facility] [address] [id number] [place] [address] Jun, [facility] [place] [facility] [address] [id number] [place] [address] 30 May, 2013 [facility] [place] [facility] [address] [id number] [place] [address] 26 May, 2013 [facility] [place] [facility] [address] [id number] [place] [address]- [address] 23 May, 2013 [facility] [place] [facility] [address] [id number] [place] [address] 19 May, 2013 [facility] [place] [facility] [address] [id number] [place] [address] 12 May, 2013 [facility] [place] [facility] [address] [id number], [place] [address] May, [facility] [place] [facility] [address] [id number], [place] [address] Apr, [facility] [place] [facility] [address] [id number] [place] [address]- [address] Apr, [facility] [place] [facility] [address] [id number] [place] [address]- [address] Apr, [facility] [place] [facility] [address] [id number] [place] [address]- [address] Apr, [facility] [place] [facility] [address] [id number] [place] [address] Apr, [facility] [address] [id number] [place] [address] Apr, [facility] [place] [facility] [address] [id number] [place] [address] Apr, [facility] [address] [id number] [place] [address] Mar, [facility] [place] [facility] [address] [id number] [place] [address] Mar, [facility] [place] [facility] [address] [id number] [place] [address]- [address] Mar, [facility] [place] [facility] [address] [id number] [place] [address]- 15[address] Mar, [facility] [place] [facility] [address] [id number] [place] [address] Mar, [facility] [address] [id number] [place] [address]- [address] Mar, [facility] [place] [facility] [address] [id number] [place] [address]- [address] Mar, [facility] [address] [id number] [place] [address] Jan, [facility] [place] [facility] [address] [id number] [place] [address]- [address] Jan, [facility] [place] [facility] [address] [id number] [place] [address] Jan, [facility] [place] [facility] [address] [id number] [place] [address]- 277[address] Jan, [facility] [place] [facility] [address] [id number] [place] [address]- [address] Jan, [facility] [place] [facility] [address] [id number] [place] [address]- [address] Jan, [facility] [address] [id number] [place] [address] 39[address] Jan, [facility] [address] [address] [id number] [place] [address] December, [facility] [address] [id number] [place] [address] December, [facility] [address] [id number] [place] [address] December, [facility] [address] [id number] [place] [address] December, [facility] [address] [id number] [place] [address] 30 Dec, 2012 [facility] [address] [id number] [place] [address] Dec, [facility] [address] [id number] [place] [address] Dec, [facility] [address] [id number] [place] [address] 29 Oct, 2012 [facility] [address] [id number] [place] [address] Oct, [facility] [place] [facility] [address] [id number] [place] [address] 478[address] Oct, [facility] [place] [facility] [address] [id number], [place] [address] Oct, [facility] [place] [facility] [address] [id number] [place] [address] Oct, [facility] [place] [facility] [address] [id number] [place] [address] Oct, [facility] [place] [facility] [address] [id number], [place] [address] 18 Oct, 2012 [facility] [place] [facility] [address] [id number], [place] [address] Oct, [facility] [address] [id number] [place] [address] 1466 Oct, [facility] [address] [id number] [place] [address] 8676 08 Oct, 2012 [facility] [address] [id number] [place] [address] 4726 Oct, [facility] [address] [id number] [place] [address] 8[address] Sep, [facility] [address] [id number] [place] [address] Sep, [facility] [address] [id number] [place] [address]686 Sep, [facility] [address] [id number] [place] [address] 07 Aug, 2012 [facility] [address] [id number] [place] [address] Aug, [facility] [address] [id number] [place] [address] 2413 Aug, [facility] [address] [facility] [id number] [place] [address]666 Aug, [facility] [address] [id number] [place] [address] Jul, [facility] [place] [facility] [address] [id number] [place] [address] 6702 Jul, [facility] [place] [facility] [address] [id number] [place] [address] 37[address] Jul, [facility] [place] [facility] [address] [id number] [place] [address] 0436 Jul, [facility] [address] [id number], [place] [address] Jul, [facility] [place] [facility] [address] [id number] [place] [address] 5[address] Jul, [facility] [place] [facility] [address] [id number] [place] [address]- [address]237 Jul, [facility] [place] [facility] [address] [id number] [place] [address]- 9045 Jul, [facility] [place] [facility] [address] [id number] [place] [address] 6435 Jun, [facility] [place] [facility] [address] [id number] [place] [address] 1410 Jun, [facility] [place] [facility] [address] [id number] [place] [address] 1346 Jun, [facility] [place] [facility] [address] [id number] [place] [address]- 0687 Jun, [facility] [place] [facility] [address] [id number] [place] [address]- 6278 Jun, [facility] [place] [facility] [address] [id number] [place] [address] May, [facility] [place] [facility] [address] [id number] [place] [address]- [address] May, [facility] [place] [facility] [address] [id number] [place] [address]226 18 May, 2012 [facility] [place] [facility] [address] [id number] [place] [address] 2670 May, [facility] [place] [facility] [address] [id number] [place] [address]- 2311 May, [facility] [place] [facility] [address] [id number] [place] [address]- 2217 Apr, [facility] [place] [facility] [address] [id number] [place] [address]- 2094 Apr, [facility] [place] [facility] [address] [id number] [place] [address]- 7828 Apr, [facility] [place] [facility] [address] [id number] [place] [address]- 6422 Apr, [facility] [place] [facility] [address] [id number] [place] [address] Apr, [facility] [place] [facility] [address] [id number] [place] [address] 1865 Apr, [facility] [place] [facility] [address] [id number] [place] [address] 5220 Apr, [facility] [place] [facility] [address] [id number] [place] [address]- 9350 Mar, [facility] [place] [facility] [address] [id number] [place] [address]- 6090 Mar, [facility] [place] [facility] [address] [id number] [place] [address]- 3226 Mar, [facility] [place] [facility] [address] [id number] [place] [address]- 2184 Mar, [facility] [place] [facility] [address] [id number] [place] [address]- 2990 Jan, [facility] [place] [facility] [address] [id number] [place] [address] 7910 Jan, [facility] [place] [facility] [address] [id number] [place] [address]- 2398 Jan, [facility] [place] [facility] [address] [id number] [place] [address]- 6891 Jan, [facility] [place] [facility] [address] [id number] [place] [address]- 4087 Jan, [facility] [place] [facility] [address] [id number] [place] [address]- 2310 Jan, [facility] [place] [facility] [address] [id number] [place] [address]- 5386 December, [facility] [place] [facility] [address] [id number] [place] [address] 4176 December, [facility] [address] [id number] [place] [address]- 7460 December, [facility] [address] [id number] [place] [address]- 5716 December, [facility] [address] [id number] [place] [address]- 7706 Dec, [facility] [address] [id number] [place] [address]- 2646 Dec, [facility] [address] [id number] [place] [address]- 0633 Oct, [facility] [address] [id number] [place] [address]- 6501 Oct, [facility] [address] [id number] [place] [address]- 2647 Oct, [facility] [address] [id number] [place] [address]- 5791 16 Nov, 2011 [facility] [address] [id number] [place] [address]- 0816 Oct, [facility] [address] [facility] [id number] [place] [address]- 9824 Oct, [facility] [address] [id number] [place] [address]- 8166 Oct, [facility] [address] [id number] [place] [address]- 9586 Oct, [facility] [place] [facility] [address] [id number] [place] [address]- 6286 Oct, [facility] [address] [id number] [place] [address]- 2146 Oct, [facility] [address] [id number] [place] [address]- 8776 Oct, [facility] [address] [id number] [place] [address]- 4214 Sep, [facility] [place] [facility] [address] [id number] [place] [address]- 4943 Sep, [facility] [place] [facility] [address] [id number] [place] [address]- 1434 Sep, [facility] [place] [facility] [address] [id number] [place] [address]- 8703 Sep, [facility] [place] [facility] [address] [id number] [place] [address]- 3009 Sep, [facility] [place] [facility] [address] [id number] [place] [address]- 4718 Sep, [facility] [place] [facility] [address] [id number] [place] [address]- 5216 Sep, [facility] [place] [facility] [address] [id number] [place] [address]- 7554 Sep, [facility] [place] [facility] [address] [id number] [place] [address]- 0074 Aug, [facility] [place] [facility] [address] [id number] [place] [address]- 1598 Aug, [facility] [place] [facility] [address] [id number] [place] [address]- 9676 Aug, [facility] [place] [facility] [address] [id number], [place] [address]- 2486 Jul, [facility] [place] [facility] [address] [id number] [place] [address]- 3633 Jul, [facility] [place] [facility] [address] [id number] [place] [address]- 4205 18 Jul, 2011 [facility] [place] [facility] [address] [id number] [place] [address]- 8878 17 Jul, 2011 [facility] [place] [facility] [address] [id number] [place] [address]- 4376 08 Jul, 2011 [facility] [address] [id number] [place] [address]- 2726 02 Jul, 2011 [facility] [place] [facility] [address] [id number] [place] [address]- 7245 31 Jun, 2011 [facility] [place] [facility] [address] [id number] [place] [address]- 6813 20 Jun, 2011 [facility] [place] [facility] [address] [id number] [place] [address]- 6724 20 Mar, 2011 [facility] [place] [facility] [address] [id number] [place] [address]- 1181 14 Dec, 2010 [facility] [place] [facility] [address] [id number] [place] [address]- 6700 14 Oct, 2010 [facility] [place] [facility] [address] [id number] [place] [address]- 9860 06 Aug, 2010 [facility] [place] [facility] [address] [id number] [place] [address]- 1360 30 Jul, 2010 [facility] [place] [facility] [address] [id number] [place] [address]- 5101 11 Jul, 2010 [facility] [place] [facility] [address] [facility] [id number] [place] [address]- 8449 10 Jul, 2010 [facility] [place] [facility] [address] [id number] [place] [address]- 8198 09 Jul, 2010 [facility] [place] [facility] [address] [id number] [place] [address]- 1705 08 Jul, 2010 [facility] [place] [facility] [address] [id number] [place] [address]- 6553 22 Aug, 2009 [facility] [place] [facility] [address] [id number] [place] [address]- 6329 15 Aug, 2009 [facility] [place] [facility] [address] [id number] [place] [address]- 8097 14 Aug, 2009 [facility] [place] [facility] [address] [id number], [place] [address] Aug, [facility] [id number] [address] Jul, [facility] [id number] Jul, [facility] [id number], [place] [address]- 2783 Jul, [facility] [address] [id number], [place] [address]- [address]25 Jul, [facility] [id number] [address] Jun, [facility] [address] [id number], [place] [address]- 8865 Jun, IMMUNIZATIONS No Known Immunizations SOCIAL HISTORY Never Assessed REASON FOR VISIT Controlled Med Refill 05/13/2017 PLAN OF CARE VITAL SIGNS MEDICATIONS Medication Instructions Dosage Frequency Start Date End Date Duration Status Hydrocodone-Acetaminophen 7.5-325 MG Orally 2 times a day 1 tablet as needed 12h 10 May, 2017 28 days Active RESULTS No Results PROCEDURES [...]
--- OUTSIDE RECORDS SUMMARY | 2018-03-17 11:27 | XMS REPORT ---
Author Author 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 [facility] Address [address] [place] [address] Care Team Providers Care Manager Field Investigations Name Role Phone 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 Unavailable PROBLEMS Type Condition ICD9-CM Code HRY24-ZC Code Onset Dates Condition Status SNOMED Code Problem 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 Active 78970921 Problem Attention-deficit hyperactivity disorder, predominantly inattentive type F90.0 Active 95430599 Problem Obstructive sleep apnea G47.33 Active 77878245 Problem Primary insomnia F51.01 Active 5758869 Problem Neuralgia M79.2 Active 86756300 Problem Cannabis use disorder, mild, abuse F12.10 Active 31974013 Problem Folic acid deficiency E53.8 Active 838363049 Problem Restless legs G25.81 Active 00570384 Problem Major depressive disorder, recurrent, mild F33.0 Active 71555902 Problem Generalized anxiety disorder F41.1 Active 62264643 Problem Major depressive disorder, recurrent episode, moderate F33.1 Active 511207303 Problem Hypertension I10 Active 05963134 Problem Hyperlipidemia E78.5 Active 74935670 Problem Primary osteoarthritis of both knees M17.0 Active 969396207 Problem Chronic hepatitis K73.9 Active 58631721 Problem Low back pain M54.5 Active 116944464 Problem Chronic viral hepatitis B without delta-agent B18.1 Active 808066496 Problem Insomnia G47.00 Active 864864113 Problem Hypothyroid E03.9 Active 93560996 Problem Depression, major, recurrent, mild F33.0 Active 883393883 Problem Obesity due to excess calories, unspecified obesity severity E66.09 Active 451685920 ALLERGIES No Information ENCOUNTERS Encounter Location Date Diagnosis [facility] [address] [facility] [id number] [address] Mar, [facility] [address] [facility] [id number] [address] Jan, [facility] [id number] [place] [address] 10229- 1512 December, [facility] [address] 12501- 3870 December, [facility] [id number] [place] [address] 75361- 6021 Dec, Bone pain M89.8X9 [facility] [address] 6[address]69- 2654 Dec, [facility] [id number] [place] [address] 47445- 6105 Oct, [facility] [id number] [place] [address] 59955- 3779 05 Oct, 2017 Syncope, unspecified syncope type R55 ; Primary insomnia F51.01 ; Dry mouth R68.2 and Cannabis use disorder, mild, abuse F12.10 [facility] [id number] [place] [address] 01724- 6296 Oct, [facility] [id number] [place] [address] 37020- 8977 Sep, [facility] [id number] [place] [address] 85927- 2935 Sep, [facility] [id number] [place] [address] 93818- 5934 Sep, [facility] [id number] [place] [address] [phone] Sep, Dental examination Z01.20 [facility] [id number] [place] [address] 54022- 4368 Sep, Dental examination Z01.20 [facility] [id number] [place] [address] 19160- 1120 Sep, Sinus congestion R09.81 ; Mouth sores K13.79 ; Low back pain M54.5 and Mouth swelling R22.0 [facility] [id number] [place] [address] 33668- 2736 Aug, Low back pain M54.5 [facility] [address] 30516- 6774 Aug, Low back pain M54.5 [facility] [address] 85795- 3143 Jul, [place] [address] 63635- 4348 Jul, 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 ; Encounter for immunization Z23 ; Hypothyroid E03.9 ; Decreased renal function N28.9 and Muscle cramps R25.2 [place] [address] 78533- 2221 Jul, [place] [address] 88163- 2836 Jul, [place] [address] 80999- 1537 Jul, [place] [address] 94557- 7402 Jul, Major depressive disorder, recurrent, mild F33.0 [place] [id number] [place] [address] 58288- 2800 Jul, Acquired cyst of kidney N28.1 ; Acidosis E87.2 and Hyperkalemia E87.5 [place] [id number] [place] [address] 69867- 9954 Jul, Major depressive disorder, recurrent, mild F33.0 ; Attention -deficit hyperactivity disorder, predominantly inattentive type F90.0 and Generalized anxiety disorder F41.1 [facility] [id number] [place] [address] 27518- 0422 Jul, Low back pain M54.5 [facility] [address] 91472- 5397 Jun, Cough R05 ; Low back pain M54.5 and Pre-syncope R55 [facility] [address] [place] [address] 54442- 6537 Jun, Low back pain M54.5 [facility] [address] [facility] [id number] [place] [address] [phone] Jun, Dental caries K02.9 [facility] [address] 71478- 1121 Jun, [facility] [id number] [place] [address] 14383- 0522 Jun, Major depressive disorder, recurrent, mild F33.0 ; Attention -deficit hyperactivity disorder, predominantly inattentive type F90.0 and Generalized anxiety disorder F41.1 [facility] [id number] [place] [address] 87210- 6534 May, Vertigo R42 ; Confusion R41.0 ; Weakness R53.1 and Vision changes H53.9 [facility] [id number] [place] [address] 57020- 5657 May, [facility] [id number] [place] [address] 38320- 7378 May, [facility] [id number] [place] [address] 05501- 8395 May, Low back pain M54.5 [facility] [id number] [place] [address] 27215- 1983 May, Major depressive disorder, recurrent, mild F33.0 ; Attention -deficit hyperactivity disorder, predominantly inattentive type F90.0 and Generalized anxiety disorder F41.1 [facility] [address] [place] [address] 89546- 5820 May, [facility] [id number] [place] [address] 96611- 0268 May, Acute worsening of stage 3 chronic kidney disease N18.3 [place] [id number] [place] [address] 15901- 8007 Apr, [place] [address] 66392- 5131 Apr, Acute allergic rhinitis due to pollen, unspecified seasonality J30.1 ; Restless legs G25.81 and Low back pain M54.5 [place] [address] 70270- 5384 Apr, Primary osteoarthritis of both knees M17.0 [place] [address] 81379- 9418 Apr, Generalized anxiety disorder F41.1 [place] [address] 12963- 9450 Apr, Major depressive disorder, recurrent, mild F33.0 ; Attention -deficit hyperactivity disorder, predominantly inattentive type F90.0 and Generalized anxiety disorder F41.1 [place] [address] 57039- 2528 Apr, [place] [address] 62316- 5905 Mar, Major depressive disorder, recurrent episode, moderate F33.1 ; Generalized anxiety disorder F41.1 and ADHD, predominantly inattentive type F90.0 [facility] [id number] [place] [address] 19846 -0602 Mar, Abscess L02.91 [facility] [id number] [place] [address] 22668- 2082 Mar, 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 [facility] [address] 71516- 2433 Mar, Decreased renal function N28.9 [facility] [id number] [place] [address] [phone] Mar, Dental examination Z01.20 [facility] [address] 18131- 1105 Mar, 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 [facility] [address] [address] 9971 Mar, 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 [facility] [address] [id number] 14 Mar, 2017 Dental examination Z01.20 and Dental caries K02.9 [facility] [id number] [place] [address] 74739- 2721 Mar, Chronic viral hepatitis B without delta-agent B18.1 ; Folic acid deficiency E53.8 ; Hyperinsulinemia E16.1 and Decreased renal function N28.9 [facility] [id number] [place] [address] 49267- 5196 Mar, Major depressive disorder, recurrent, mild F33.0 [place] [id number] [place] [address] 59701- 5468 Mar, [facility] [id number] [place] [address] 10379- 7391 Mar, Chronic hepatitis K73.9 ; Hyperinsulinemia E16.1 ; Localized edema R60.0 ; Illicit drug use F19.90 ; Vision changes H53.9 and Obesity due to excess calories, unspecified obesity severity E66.09 [place] [id number] [place] [address] 50767- 7026 Jan, Major depressive disorder, recurrent, mild F33.0 [facility] [address] [place] [address] 38546- 1165 Jan, Chronic viral hepatitis B without delta-agent B18.1 [facility] [id number] [place] [address] 74078- 5520 Jan, [place] [id number] [place] [address] 84192- 2744 Jan, Weight gain R63.5 ; Hypothyroid E03.9 ; Hyperinsulinemia E16.1 ; Decreased renal function N28.9 and Chronic viral hepatitis B without delta-agent B18.1 [facility] [id number] [place] [address] 24126- 4504 December, Major depressive disorder, recurrent, mild F33.0 and Generalized anxiety disorder F41.1 [facility] [id number] [place] [address] 71475- 1922 December, Obesity due to excess calories, unspecified obesity severity E66.09 and Folic acid deficiency E53.8 [facility] [id number] [place] [address] 20544- 7112 December, Folic acid deficiency E53.8 [place] [address] 32242- 9557 December, Folic acid deficiency E53.8 [place] [id number] [place] [address] 09472- 8407 December, Obesity due to excess calories, unspecified obesity severity E66.09 [facility] [id number] [place] [address] 20422- 8492 December, [facility] [id number] [place] [address] 48101- 0865 December, Folic acid deficiency E53.8 [facility] [id number] [place] [address] [phone] December, Encounter for other administrative examinations Z02.89 [place] [id number] [place] [address] 90988- 9877 Dec, [facility] [id number] [place] [address] [phone] Dec, Dental caries K02.9 [place] [id number] [place] [address] 27283- 1555 Oct, Bone pain M89.8X9 [place] [id number] [place] [address] 23732- 7614 Oct, Hypothyroid E03.9 [facility] [id number] [address]- 4037 24 Oct, 2016 Hypothyroid E03.9 [facility] [address] [place] [address] 92318- 2007 Oct, Breast cancer screening Z12.39 [facility] [address] [phone] 08 Oct, 2016 Dental examination Z01.20 [facility] [id number] [place] [address] 74734- 0972 Oct, [facility] [id number] [place] [address] 00763- 0262 Oct, Major depressive disorder, recurrent, mild F33.0 and Generalized anxiety disorder F41.1 [place] [id number] [place] [address] 98476- 0552 Oct, [facility] [id number] [place] [address] 23060- 2059 Oct, Hypothyroid E03.9 [facility] [id number] [place] [address] 21364- 7413 Sep, Hypothyroid E03.9 ; Chronic viral hepatitis B without delta- agent B18.1 and Folic acid deficiency E53.8 [place] [address] [place] [address] 25954- 9122 Sep, Hypothyroidism, unspecified type E03.9 ; Elevated parathyroid hormone E34.9 and Chronic viral hepatitis B without delta-agent B18.1 [facility] [address] [place] [address] 38368- 1657 Sep, [facility] [id number] [place] [address] 74793- 0330 Sep, Elevated parathyroid hormone E34.9 [facility] [address] [place] [address] 62568- 5929 Sep, [facility] [id number] [place] [address] 12479- 9834 Sep, Chronic hepatitis K73.9 ; Bone pain M89.8X9 and Abnormal complete blood count R79.89 [facility] [id number] [place] [address] 12744- 4176 27 Aug, 2016 Major depressive disorder, recurrent, mild F33.0 [facility] [id number] [place] [address] 61722- 9778 Aug, Bone pain M89.8X9 [facility] [id number] [place] [address] 98433- 6423 Aug, [place] [address] 17699- 2870 Jul, Chronic viral hepatitis B without delta-agent B18.1 [place] [address] 40106- 5964 Jul, Hypothyroidism, unspecified type E03.9 [place] [id number] [place] [address] 18372- 8422 Jul, [place] [address] 45282- 7201 Jul, Chronic hepatitis K73.9 and Hypothyroid E03.9 [place] [id number] [place] [address] 11862- 3914 Jul, Low back pain M54.5 [place] [id number] [place] [address] 18504- 5104 Jun, Depression, major, recurrent, mild F33.0 and ADD (attention deficit disorder) F90.0 [facility] [id number] [place] [address] 78478- 1547 Jun, [facility] [id number] [place] [address] 08695- 6669 Jun, Low back pain M54.5 [facility] [address] 21998- 5051 Jun, Encounter for immunization Z23 ; Major depressive disorder, recurrent, mild F33.0 and Attention-deficit hyperactivity disorder, predominantly inattentive type F90.0 [facility] [id number] [place] [address] 37265- 4150 Jun, [facility] [id number] [place] [address] 24829- 7602 Jun, Low back pain M54.5 [facility] [id number] [place] [address] 08728- 9399 May, [facility] [address] 00752- 7152 May, [facility] [id number] [place] [address] 68253- 8605 May, Essential (primary) hypertension I10 [facility] [address] 21252- 0065 May, Low back pain M54.5 [facility] [id number] [place] [address] 19872- 3770 May, Low back pain M54.5 ; Chronic hepatitis K73.9 and Hypothyroid E03.9 [facility] [id number] [place] [address] 89696- 0018 May, Hypothyroidism, unspecified type E03.9 [facility] [id number] [place] [address] 97850- 1859 08 May, 2016 Low back pain M54.5 [facility] [id number] [place] [address] 61984- 4698 May, [facility] [id number] [place] [address] 88903- 7457 May, [facility] [id number] [place] [address] 94908- 9012 May, Major depressive disorder, recurrent, moderate F33.1 ; Generalized anxiety disorder F41.1 ; Insomnia G47.00 and ADD (attention deficit disorder) F90.0 [place] [id number] [place] [address] 01082- 9911 Apr, Low back pain M54.5 [facility] [id number] [place] [address] 30859- 8888 Apr, [facility] [address] 26705- 6537 Apr, Low back pain M54.5 [place] [address] 29872- 4185 Apr, Low back pain M54.5 ; Tooth pain K08.8 and Seasonal allergic rhinitis due to pollen J30.1 [place] [address] 53816- 4093 Apr, Low back pain M54.5 [place] [address] 04382- 7496 Apr, [facility] Pap smear of vagina R87.622 [place] [address] 04097- 4946 Apr, Low back pain M54.5 [place] [id number] [place] [address] 56942- 6233 Mar, [place] [address] 56691- 0622 Mar, Low back pain M54.5 [place] [id number] [place] [address] 99930- 5828 Mar, Encounter for Papanicolaou smear for cervical cancer screening Z12.4 ; Encounter for routine gynecological examination Z01.419 and Breast cancer screening Z12.39 [place] [id number] [place] [address] 38344- 4154 18 Mar, 2016 Hypothyroidism, unspecified type E03.9 [place] [address] [place] [address]- 2863 Mar, Low back pain M54.5 ; Other chronic pain G89.29 ; Hypothyroid E03.9 and Hypothyroidism, unspecified type E03.9 [facility] [id number] [place] [address] 89040- 3308 Mar, Major depressive disorder, recurrent, moderate F33.1 and Attention-deficit hyperactivity disorder, predominantly inattentive type F90.0 [facility] [id number] [place] [address] 60771 -9272 Mar, Bronchitis J40 [facility] [id number] [place] [address] 50843- 0609 Jan, [facility] [id number] [place] [address] 42332- 3452 Jan, [facility] [id number] [place] [address] 42700- 9265 Jan, Insomnia G47.00 [facility] [id number] [place] [address] 71039- 9953 December, [facility] [id number] [place] [address] 93736- 3310 December, Major depressive disorder in partial remission F32.4 and Attention-deficit hyperactivity disorder, unspecified type F90.9 [facility] [id number] [place] [address] 10820- 5673 December, [facility] [id number] [place] [address] 51685- 6485 December, [facility] [id number] [place] [address] 94032- 2236 Dec, [facility] [id number] [place] [address] 58724- 8461 Dec, Major depressive disorder, recurrent episode, moderate 296.32 and Attention deficit disorder of childhood without mention of hyperactivity 314.00 [facility] [id number] [place] [address] 61575- 3690 Dec, Major depressive disorder, recurrent episode, mild 296.31 ; ADD (attention deficit disorder) F90.0 and Hyperlipidemia E78.5 [facility] [id number] [place] [address] 93761- 2372 Dec, Insomnia G47.00 [facility] [id number] [place] [address] 09743- 1522 Dec, Attention-deficit hyperactivity disorder, predominantly inattentive type F90.0 [facility] [id number] [place] [address] 26229- 3448 Oct, Restless legs syndrome G25.81 [place] [id number] [place] [address] 85104- 7808 Oct, Hypothyroidism, unspecified type E03.9 [place] [id number] [place] [address] 45118- 6819 Oct, [facility] [id number] [place] [address] 89390- 3478 Oct, [facility] [id number] [place] [address] 78171- 3683 Oct, Hypothyroid E03.9 and Chronic hepatitis K73.9 [facility] [id number] [place] [address] 81425- 1166 Oct, [facility] [id number] [place] [address] 36647- 2016 Oct, Restless legs syndrome G25.81 ; Chronic hepatitis K73.9 ; Hypertension I10 ; Hypothyroid E03.9 and Breast cancer screening Z12.39 [facility] [id number] [place] [address] 11342- 9707 Oct, [facility] [id number] [place] [address] [id number] Oct, [facility] [id number] [place] [id number] Oct, [facility] [address] [address] Oct, [facility] [address] [address] Oct, [facility] [address] [address] Oct, [facility] [id number] [place] [id number]- [phone] Oct, [facility] [id number] [place] [address]24- [phone] Sep, [facility] [id number] [place] [address] [id number]- [phone] Sep, Attention-deficit hyperactivity disorder, predominantly inattentive type F90.0 and Major depressive disorder in partial remission F32.4 [facility] [address] [address] Sep, [facility] [id number] [place] [address] [id number]- [phone] Aug, [facility] [address] [address] Aug, [facility] [address] [address] Aug, Major depressive disorder, recurrent, mild F33.0 ; Attention -deficit hyperactivity disorder, unspecified type F90.9 and Generalized anxiety disorder F41.1 [facility] [address] [address] 08 Aug, 2015 Chronic hepatitis K73.9 ; Primary osteoarthritis of both knees M17.0 and Neuralgia M79.2 [facility] [address] [address] Jul, [facility] [id number] [place] [address] [id number]- [id number] Jul, [facility] [id number] [place] [address] [id number]- [id number] Jul, [facility] [id number] [place] [address] 96788- 4110 Jul, [facility] [id number] [place] [address] 18657- 8929 Jun, [facility] [address] [address]- [address] Jun, Bronchitis J40 and Encounter for immunization Z23 [facility] [address] [address]295- 9436 30 May, 2015 [facility] [id number] [place] [address] 32304- 8621 May, [facility] [address] 16337- 9239 May, [facility] [id number] [place] [address] 41952- 8622 May, Hypokalemia 276.8 [facility] [id number] [place] [address] 74211- 3939 08 May, 2015 Major depressive disorder, recurrent episode, mild 296.31 ; Attention deficit disorder of childhood without mention of hyperactivity 314.00 and Generalized anxiety disorder 300.02 [facility] [id number] [place] [address] 32890- 3754 May, Hypertension 401.9 and Hypokalemia 276.8 [facility] [id number] [place] [address] 98467- 0968 May, [facility] [id number] [place] [address] 47327- 9511 Apr, [facility] [id number] [place] [address] 07189- 2355 Apr, [facility] [address] [address] 5162 Apr, [facility] [address] [address]- 1183 Apr, [facility] [address] [address] [address]89 Mar, [facility] [id number] [place] [address] 74676- 7432 Mar, [facility] [id number] [place] [address] 38776- 6890 Mar, [facility] [id number] [place] [address] 41698- 0391 Mar, [facility] [id number] [place] [address] 83278- 8591 Mar, Arthritis of both knees 716.96 ; Hepatitis B 070.30 ; Hypertension 401.9 ; Carpal tunnel syndrome 354.0 and Cubital tunnel syndrome 354.2 [facility] [address] [address]- 6841 Mar, [facility] [id number] [place] [address] 76757- 7793 Mar, [facility] [address] [address]- 8546 Mar, 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, chronic, without mention of hepatitis delta 070.32 ; Chronic hepatitis C without mention of hepatic coma 070.54 and Major depressive disorder, recurrent episode, moderate 296.32 [facility] [address] [address]- 2565 Jan, [facility] [id number] [place] [address] 13601- 5078 Jan, Major depressive disorder, recurrent episode, mild 296.31 and Attention deficit disorder of childhood without mention of hyperactivity 314.00 [facility] [id number] [place] [address] 71067- 8653 Jan, [facility] [address] [facility] [id number] [address] 7239 Jan, [facility] [address] [address]- 6466 December, Attention deficit disorder of childhood without mention of hyperactivity 314.00 ; Major depressive disorder, recurrent episode, mild 296.31 and Generalized anxiety disorder 300.02 [facility] [address] [facility] [id number] [address]- 5647 December, [facility] [address] [facility] [id number] [address]- 9571 Dec, [facility] [address] [id number] [address]- 9499 Dec, [facility] [address] [address]- 2651 19 Oct, 2014 [facility] [address] [id number] [address]- 1908 19 Oct, 2014 [facility] [address] [id number] [address]- 4914 18 Oct, 2014 [facility] [address] [id number] [address]- 3019 18 Oct, 2014 [facility] [address] [id number] [address]- 3854 18 Oct, 2014 [facility] [address] [id number] [address]- 5027 18 Oct, 2014 [facility] [address] [facility] [id number] [place] 0162 16 Oct, 2014 [facility] [address] [facility] [id number] [place] 6023 13 Oct, 2014 [facility] [id number] 2181 13 Oct, 2014 [facility] [address] [id number] [place] [address]- 7850 12 Oct, 2014 [facility] [place] [facility] [address] [id number] [place] [address]- 0056 Oct, [facility] [place] [facility] [address] [id number] [place] [address]- 4182 Oct, [facility] [place] [facility] [address] [facility] [id number] [place] [address]- 1457 Oct, [facility] [place] [facility] [address] [facility] [id number] [place] [address]- 1330 Oct, [facility] [place] [facility] [address] [id number] [place] [address]- 3085 05 Oct, 2014 [facility] [place] [facility] [address] [facility] [id number] [place] [address]- 3648 Oct, [facility] [place] [facility] [address] [facility] [id number] [place] [address]- 5416 26 Oct, 2014 [facility] [place] [facility] [address] [facility] [id number] [place] [address]- 7168 25 Oct, 2014 [facility] [place] [facility] [address] [facility] [id number] [place] [address]- 8987 Oct, [facility] [place] [facility] [address] [facility] [id number] [place] [address]- 5370 18 Oct, 2014 [facility] [place] [facility] [address] [facility] [id number] [address]- 7846 Oct, 2014 [facility] [place] [facility] [address] [facility] [id number] [place] [address]- 6776 17 Oct, 2014 [facility] [place] [facility] [address] [facility] [id number] [place] [address]- 4062 Oct, [facility] [place] [facility] [address] [facility] [id number] [place] [address]- 0248 11 Oct, 2014 [facility] [place] [facility] [address] [facility] [id number] [address]- 9226 Oct, [facility] [place] [facility] [address] [id number] [place] [address]- 9193 Oct, [facility] [place] [facility] [address] [id number] [place] [address]- 6315 Oct, [facility] [place] [facility] [address] [id number] [place] [address]- 7440 Oct, [facility] [place] [facility] [address] [id number] [place] [address]- 8217 Sep, [facility] [place] [facility] [address] [id number] [place] [address]- 4405 Sep, [facility] [place] [facility] [address] [id number] [place] [address]- 7895 Sep, [facility] [place] [facility] [address] [id number] [place] [address]- 2128 Sep, [facility] [place] [facility] [address] [id number] [place] [address]- 0632 Sep, [facility] [place] [facility] [address] [id number] [place] [address]- 5084 Sep, [facility] [place] [facility] [address] [id number] [place] [address]- 7339 Sep, [facility] [place] [facility] [address] [id number] [place] [address]- 7144 Sep, [facility] [place] [facility] [address] [id number] [place] [address]- 1436 Sep, [facility] [place] [facility] [address] [id number] [place] [address]- 3816 Sep, [facility] [place] [facility] [address] [id number] [place] [address]- 3213 Sep, [facility] [place] [facility] [address] [id number] [address]- 6315 Sep, [facility] [place] [facility] [address] [id number] [place] [address]- 0550 Sep, [facility] [place] [facility] [address] [id number] [place] [address]- 7606 Sep, [facility] [place] [facility] [address] [id number] [place] [address]- 4816 Sep, [facility] [place] [facility] [address] [id number] [place] [address]- 2500 Sep, [facility] [place] [facility] [address] [id number] [place] [address]- 7136 Aug, [facility] [place] [facility] [address] [id number] [place] [address]- 8023 Aug, [facility] [place] [facility] [address] [id number] [place] [address]- 7998 Aug, [facility] [place] [facility] [address] [id number] [place] [address]- 4854 Aug, [facility] [place] [facility] [address] [id number] [place] [address]- 3708 Aug, [facility] [place] [facility] [address] [id number] [place] [address]- 3256 Aug, [facility] [place] [facility] [address] [id number] [place] [address]- 9154 Aug, [facility] [place] [facility] [address] [id number] [place] [address]- 7890 Aug, [facility] [place] [facility] [address] [id number] [place] [address]- 3219 Aug, [facility] [place] [facility] [address] [id number] [place] [address]- 0657 Aug, [facility] [place] [facility] [address] [id number] [place] [address]- 5339 18 Aug, 2014 [facility] [place] [facility] [address] [id number] [place] [address]- 2969 16 Aug, 2014 [facility] [place] [facility] [address] [id number] [place] [address]- 8755 16 Aug, 2014 [facility] [place] [facility] [address] [id number] [place] [address]- 5636 15 Aug, 2014 [facility] [place] [facility] [address] [id number] [place] 0930 15 Aug, 2014 [facility] [place] [facility] [address] [id number] [place] [address]- 4106 Aug, [facility] [place] [facility] [address] [id number] [place] [address]- 4497 Aug, [facility] [place] [facility] [address] [id number] [place] [address]- 7824 Aug, [facility] [place] [facility] [address] [id number] [place] [address]- 0237 Aug, [facility] [place] [facility] [address] [id number] [place] [address]- 9990 04 Aug, 2014 [facility] [place] [facility] [address] [id number] [place] [address]- 6953 Aug, [facility] [place] [facility] [address] [id number] [place] [address]- 8226 04 Aug, 2014 [facility] [place] [facility] [address] [id number] [place] [address]- 0548 Aug, [facility] [place] [facility] [address] [id number] [place] [address]- 2984 04 Aug, 2014 [facility] [place] [facility] [address] [id number] [place] [address]- 1413 Aug, [facility] [place] [facility] [address] [id number] [place] [address]- 6562 Jul, [facility] [place] [facility] [address] [id number] [place] [address]- 2118 Jul, [facility] [place] [facility] [address] [id number] [place] [address]- 5768 Jul, [facility] [place] [facility] [address] [id number] [place] [address]- 6142 Jul, [facility] [place] [facility] [address] [id number] [place] [address]- 3976 Jul, [facility] [place] [facility] [address] [id number] [place] [address]- 0374 Jul, [facility] [place] [facility] [address] [id number] [place] [address]- 4571 Jun, [facility] [place] [facility] [address] [id number] [place] [address]- 6476 Jun, [facility] [place] [facility] [address] [id number] [place] [address]- 3418 Jun, [facility] [place] [facility] [address] [id number] [place] [address]- 0714 Jun, [facility] [place] [facility] [address] [id number] [place] [address]- 4272 Jun, [facility] [place] [facility] [address] [id number] [place] [address]- 2356 Jun, [facility] [place] [facility] [address] [facility] [id number] [place] [address]- 3856 Jun, [facility] [place] [facility] [address] [id number] [place] [address]- 7052 Jun, [facility] [place] [facility] [address] [id number] [place] [address]- 6693 16 May, 2014 [facility] [place] [facility] [address] [id number] [place] [address]- 1099 16 May, 2014 [facility] [place] [facility] [address] [id number] [place] [address]- 2582 15 May, 2014 [facility] [place] [facility] [address] [id number] [place] [address]- 7152 May, [facility] [place] [facility] [address] [id number] [place] [address]- 2884 May, [facility] [place] [facility] [address] [id number] [place] [address]- 5941 May, [facility] [place] [facility] [address] [id number] [place] [address]- 9983 May, [facility] [place] [facility] [address] [id number] [place] [address]- 5306 May, [facility] [place] [facility] [address] [id number] [place] [address]- 9005 Apr, [facility] [place] [facility] [address] [id number] [place] [address]- 0845 Apr, [facility] [place] [facility] [address] [id number] [place] [address]- 8693 Apr, [facility] [place] [facility] [address] [id number] [place] [address]- 2839 Apr, [facility] [place] [facility] [address] [id number] [place] [address]- 6322 Apr, [facility] [place] [facility] [address] [id number] [place] [address]- 2342 Apr, [facility] [place] [facility] [address] [id number] [place] [address]- 0258 Apr, [facility] [place] [facility] [address] [id number] [place] [address]- 6283 Apr, [facility] [place] [facility] [address] [id number] [place] [address]- 7610 Apr, [facility] [place] [facility] [address] [id number] [place] [address]- 1703 Apr, [facility] [place] [facility] [address] [id number] [place] [address]- 7765 Apr, [facility] [place] [facility] [address] [id number] [place] [address]- 3901 Apr, [facility] [place] [facility] [address] [id number] [place] 8140 Apr, [facility] [place] [facility] [address] [id number] [place] [address]- 7745 Mar, [facility] [place] [facility] [address] [id number] [place] [address]- 4425 Mar, [facility] [place] [facility] [address] [id number] [place] [address]- 3398 Mar, [facility] [place] [facility] [address] [id number] [place] [address]- 2972 Mar, [facility] [place] [facility] [address] [id number] [place] [address]- 0132 Jan, [facility] [place] [facility] [address] [id number] [place] [address]- 3015 Jan, [facility] [place] [facility] [address] [id number] [place] [address]- 4969 December, [facility] [place] [facility] [address] [id number] [place] [address]- 0571 December, [facility] [place] [facility] [address] [id number] [place] [address]- 5834 December, [facility] [place] [facility] [address] [id number] [place] [address]- 2427 December, [facility] [place] [facility] [address] [id number] [place] [address]- 4382 December, [facility] [place] [facility] [address] [id number] [place] 1526 December, [facility] [place] [facility] [address] [id number] [place] 5897 December, [facility] [place] [facility] [address] [id number] [place] 7380 December, [facility] [place] [facility] [address] [id number] [place] [address]- 4254 Dec, [facility] [place] [facility] [address] [id number] [place] [address]- 6560 Dec, [facility] [place] [facility] [address] [id number] [place] [address]- 9943 Dec, [facility] [place] [facility] [address] [id number] [place] [address]- 6592 Dec, [facility] [place] [facility] [address] [id number] [place] [address]- 1039 Oct, [facility] [place] [facility] [address] [id number] [place] [address]- 5047 Oct, [facility] [place] [facility] [address] [id number] [place] [address]- 6220 Oct, [facility] [place] [facility] [address] [id number] [place] [address]- 4957 Oct, [facility] [place] [facility] [address] [id number] [place] [address]- 9775 Oct, [facility] [place] [facility] [address] [id number] [place] [address]- 2786 Oct, [facility] [place] [facility] [address] [id number] [place] [address]- 0011 Oct, [facility] [place] [facility] [address] [id number] [place] [address]- 7022 Oct, [facility] [place] [facility] [address] [id number] [place] [address]- 5378 Oct, [facility] [place] [facility] [address] [id number] [place] 7982 Oct, [facility] [place] [facility] [address] [id number] [place] 4057 Oct, [facility] [place] [facility] [address] [id number] [place] [address]- 0364 Oct, [facility] [place] [facility] [address] [id number] [place] [address]- 2323 Oct, [facility] [place] [facility] [address] [id number] [place] [address]- 0490 Oct, [facility] [place] [facility] [address] [facility] [id number] [place] [address]- 8876 Oct, 2013 [facility] [place] [facility] [address] [id number] [place] [address]- 0854 Oct, 2013 [facility] [place] [facility] [address] [id number] [place] [address]- 2563 Oct, [facility] [place] [facility] [address] [facility] [id number] [place] [address]- 0686 Oct, [facility] [place] [facility] [address] [facility] [id number] [place] [address]- 1013 Oct, [facility] [place] [facility] [address] [facility] [id number] [place] [address]- 0327 Oct, [facility] [place] [facility] [address] [facility] [id number] [place] [address]- 4713 Oct, [facility] [place] [facility] [address] [facility] [id number] [place] [address]- 2799 Oct, [facility] [place] [facility] [address] [facility] [id number] [place] [address]- 9980 Sep, [facility] [place] [facility] [address] [facility] [id number] [place] [address]- 5731 Sep, [facility] [place] [facility] [address] [facility] [id number] [place] [address] Sep, [facility] [place] [facility] [address] [facility] [id number] [place] [address] Sep, [facility] [place] [facility] [address] [facility] [id number] [place] [address] Aug, [facility] [place] [facility] [address] [id number] [place] [address] Aug, [facility] [address] [id number] [place] [address] Aug, [facility] [place] [facility] [address] [id number] [place] [address] Aug, [facility] [place] [facility] [address] [id number] [place] [address] Aug, [facility] [place] [facility] [address] [id number] [place] [address] Aug, [facility] [place] [facility] [address] [id number] [place] [address] Aug, [facility] [address] [id number] [place] [address] Aug, [facility] [place] [facility] [address] [id number] [place] [address] Aug, [facility] [place] [facility] [address] [id number] [place] [address] Jul, [facility] [place] [facility] [address] [id number] [place] [address] Jul, [facility] [place] [facility] [address] [id number] [place] [address] Jul, [facility] [place] [facility] [address] [id number] [place] [address] Jul, [facility] [place] [facility] [address] [id number] [place] [address] Jul, [facility] [place] [facility] [address] [id number] [place] [address] Jul, [facility] [place] [facility] [address] [id number] [place] [address] Jul, [facility] [place] [facility] [address] [id number] [place] [address] Jul, [facility] [place] [facility] [address] [id number] [place] [address] Jun, [facility] [place] [facility] [address] [id number] [place] [address] Jun, [facility] [place] [facility] [address] [id number] [place] [address] Jun, [facility] [place] [facility] [address] [id number] [place] [address]- [address] Jun, [facility] [place] [facility] [address] [id number] [place] [address]- [address] Jun, [facility] [place] [facility] [address] [id number] [place] [address] Jun, [facility] [place] [facility] [address] [id number] [place] [address]- [address] Jun, [facility] [place] [facility] [address] [id number] [place] [address] Jun, [facility] [place] [facility] [address] [id number] [place] [address] 30 May, 2013 [facility] [place] [facility] [address] [id number] [place] [address] 26 May, 2013 [facility] [place] [facility] [address] [id number] [place] [address] 23 May, 2013 [facility] [place] [facility] [address] [id number] [address] 19 May, 2013 [facility] [place] [facility] [address] [id number] [place] [address]- [address] 12 May, 2013 [facility] [place] [facility] [address] [id number] [place] [address] 11 May, 2013 [facility] [place] [facility] [address] [id number] [place] [address] Apr, [facility] [place] [facility] [address] [id number] [place] [address] Apr, [facility] [address] [id number] [place] [address] Apr, [facility] [place] [facility] [address] [id number] [place] [address] Apr, [facility] [address] [id number] [place] [address] Apr, [facility] [place] [facility] [address] [id number] [place] [address] Apr, [facility] [address] [id number] [place] [address] Apr, [facility] [address] [id number] [place] [address] Mar, [facility] [place] [facility] [address] [id number] [place] [address] Mar, [facility] [address] [id number] [place] [address] Mar, [facility] [place] [facility] [address] [id number] [place] [address]- [address] Mar, [facility] [address] [id number] [place] [address] Mar, [facility] [place] [facility] [address] [id number] [place] [address]- [address] Mar, [facility] [place] [facility] [address] [id number] [place] [address] Mar, [facility] [place] [facility] [address] [id number] [place] [address] Jan, [facility] [place] [facility] [address] [id number] [place] [address]- [address] Jan, [facility] [place] [facility] [address] [id number] [place] [address]- [address] Jan, [facility] [address] [id number] [place] [address] Jan, [facility] [place] [facility] [address] [id number] [place] [address]- 47[address] Jan, [facility] [place] [facility] [address] [id number] [place] [address]- [address] Jan, [facility] [place] [facility] [address] [id number] [place] [address]- [address] Jan, [facility] [address] [id number] [place] [address]- [address] December, [facility] [place] [facility] [address] [id number] [place] [address] December, [facility] [address] [id number] [place] [address]- [address] December, [facility] [facility] [address] [id number] [place] [address] December, [facility] [place] [facility] [address] [id number] [place] [address] Dec, [facility] [place] [facility] [address] [id number] [place] [address] Dec, [facility] [place] [facility] [address] [id number] [place] [address] Dec, [facility] [place] [facility] [address] [id number] [address] 29 Oct, 2012 [facility] [place] [facility] [address] [id number] [place] [address] Oct, [facility] [place] [facility] [address] [id number] [place] [address]284 Oct, [facility] [place] [facility] [address] [id number] [place] [address] Oct, [facility] [place] [facility] [address] [id number] [place] [address] Oct, [facility] [address] [id number] [place] [address] Oct, [facility] [address] [id number] [place] [address] Oct, [facility] [address] [id number] [place] [address] 58[address] Oct, [facility] [address] [id number] [place] [address]- [address] Oct, [facility] [address] [id number] [place] [address] 65[address] 08 Oct, 2012 [facility] [address] [id number] [place] [address] 1996 Oct, [facility] [address] [id number] [place] [address] 96[address] Sep, [facility] [address] [id number] [place] [address] 8360 Sep, [facility] [address] [id number] [place] [address]198 Sep, [facility] [address] [id number] [place] [address] Aug, [facility] [address] [id number] [place] [address] 4136 Aug, [facility] [address] [id number] [place] [address] Aug, [facility] [address] [id number] [place] [address]- 4[address] Aug, [facility] [place] [facility] [address] [id number] [place] [address] 1786 Jul, [facility] [address] [id number] [place] [address] Jul, [facility] [place] [facility] [address] [id number] [place] [address]- 4669 Jul, [facility] [place] [facility] [address] [id number] [place] [address] 1239 Jul, [facility] [place] [facility] [address] [id number] [place] [address]- 5690 Jul, [facility] [place] [facility] [address] [id number] [place] [address]- 4[address] Jul, [facility] [place] [facility] [address] [id number] [place] [address] 42[address] Jul, [facility] [place] [facility] [address] [id number] [place] [address]- 0826 Jul, [facility] [place] [facility] [address] [id number] [place] [address] 8335 Jun, [facility] [place] [facility] [address] [id number] [place] [address]- 1567 Jun, [facility] [place] [facility] [address] [id number] [place] [address]- 6457 Jun, [facility] [place] [facility] [address] [id number] [place] [address]- 6004 Jun, [facility] [place] [facility] [address] [facility] [id number] [place] [address]- 0014 Jun, [facility] [place] [facility] [address] [id number] [place] [address] 26 May, 2012 [facility] [place] [facility] [address] [id number] [place] [address]- 6527 20 Sep2011 [facility] [place] [facility] [address] [id number] [place] [address] 18 May, 2012 [facility] [place] [facility] [address] [id number] [place] [address]- 1363 09 May, 2012 [facility] [place] [facility] [address] [id number] [place] [address] 72[address] May, [facility] [place] [facility] [address] [id number] [place] [address] 6[address] Apr, [facility] [place] [facility] [address] [id number] [place] [address] 7787 Apr, [facility] [place] [facility] [address] [id number] [place] [address]- 2457 Apr, [facility] [place] [facility] [address] [id number] [place] [address]- 0204 Apr, [facility] [place] [facility] [address] [id number] [place] [address]- 7260 Apr, [facility] [place] [facility] [address] [id number] [place] [address]- 7773 Apr, [facility] [place] [facility] [address] [id number] [place] [address]- 9692 Apr, [facility] [place] [facility] [address] [id number] [place] [address]- 7204 Mar, [facility] [place] [facility] [address] [id number] [place] [address]- 2037 Mar, [facility] [place] [facility] [address] [id number] [place] [address]- 5861 Mar, [facility] [place] [facility] [address] [id number] [place] [address]- 0132 Mar, [facility] [place] [facility] [address] [id number] [place] [address]- 0921 Jan, [facility] [place] [facility] [address] [id number] [place] [address]- 2806 Jan, [facility] [place] [facility] [address] [id number] [place] [address]- 0351 Jan, [facility] [place] [facility] [address] [id number] [place] [address]- 3761 Jan, [facility] [place] [facility] [address] [id number] [place] [address]- 2256 Jan, [facility] [address] [id number] [place] [address]- 1690 Jan, [facility] [address] [id number] [place] [address] 5[address] December, [facility] [address] [id number] [place] [address]- 7066 December, [facility] [address] [id number] [place] [address]- 4644 December, [facility] [address] [id number] [place] [address]- 1192 December, [facility] [address] [id number] [place] [address]- 5578 Dec, [facility] [address] [id number] [place] [address]- 6979 Dec, [facility] [address] [id number] [place] [address]- 9731 Oct, [facility] [address] [id number] [place] [address]- 8147 Oct, [facility] [address] [id number] [place] [address]- 5210 Oct, [facility] [address] [id number] [place] [address]- 4276 16 Nov, 2011 [facility] [address] [id number] [place] [address]- 7472 Oct, [facility] [place] [facility] [address] [id number] [place] [address]- 6166 Oct, [facility] [address] [id number] [place] [address]- 2546 Oct, [facility] [address] [id number] [place] [address]- 3106 Oct, [facility] [address] [id number] [place] [address]- 5352 Oct, [facility] [place] [facility] [address] [id number] [place] [address]- 5756 Oct, [facility] [address] [id number] [place] [address]- 2966 Oct, [facility] [address] [id number] [place] [address]- 3056 Sep, [facility] [address] [id number] [place] [address]- 6322 Sep, [facility] [address] [id number] [place] [address]- 6896 Sep, [facility] [address] [id number] [place] [address]- 1666 Sep, [facility] [address] [id number] [place] [address]- 0377 Sep, [facility] [address] [id number] [place] [address]- 7402 Sep, [facility] [address] [id number] [place] [address]- 9231 Sep, [facility] [address] [id number] [place] [address]- 9716 Sep, [facility] [place] [facility] [address] [id number] [place] [address]- 4445 Aug, [facility] [place] [facility] [address] [id number] [place] [address]- 2886 Aug, [facility] [place] [facility] [address] [id number] [place] [address]- 8256 Aug, [facility] [place] [facility] [address] [id number] [place] [address]- 7086 Jul, [facility] [place] [facility] [address] [id number] [place] [address]- 8093 28 Jul, 2011 [facility] [place] [facility] [address] [id number] [place] [address]- 1425 18 Jul, 2011 [facility] [place] [facility] [address] [id number] [place] [address]- 2488 17 Jul, 2011 [facility] [place] [facility] [address] [id number] [place] [address]- 4065 08 Jul, 2011 [facility] [place] [facility] [address] [id number] [place] [address]- 2894 02 Jul, 2011 [facility] [place] [facility] [address] [id number] [place] [address]- 6732 31 Jun, 2011 [facility] [place] [facility] [address] [id number] [place] [address]- 4551 20 Jun, 2011 [facility] [place] [facility] [address] [id number] [place] [address]- 8268 Mar, [facility] [place] [facility] [address] [id number] [place] [address]- 7485 14 Dec, 2010 [facility] [place] [facility] [address] [id number] [place] [address]- 8062 14 Oct, 2010 [facility] [place] [facility] [address] [facility] [id number] [place] [address]- 0102 Aug, [facility] [place] [facility] [address] [id number] [place] [address]- 3510 30 Jul, 2010 [facility] [place] [facility] [address] [id number] [place] [address]- 1995 Jul, [facility] [place] [facility] [address] [id number] [place] [address]- 5420 10 Jul, 2010 [facility] [place] [facility] [address] [id number] [place] [address]- 9006 09 Jul, 2010 [facility] [place] [facility] [address] [facility] [facility] [id number] [place] [address]- 7284 08 Jul, 2010 [facility] [place] [facility] [id number] [address]- 8837 Aug, [facility] [id number] [address]- 2511 Aug, [facility] [id number] [address]- 4185 Aug, [facility] [id number] [address]- 4628 Aug, [facility] [id number] [address]- 7147 17 Jul, 2009 [facility] [id number] [place] [address]- [address] Jul, [facility] [id number] [address]- 1673 Jul, [facility] [address] [address]- 4723 Jul, [facility] [address] [address]- 6445 Jun, [facility] [address] [address]- 8468 Jun, IMMUNIZATIONS No Known Immunizations SOCIAL HISTORY Never Assessed REASON FOR VISIT hospital f/u PLAN OF CARE VITAL SIGNS MEDICATIONS Unknown [...]
--- OUTSIDE RECORDS SUMMARY | 2018-03-17 11:29 | XMS REPORT ---
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 Active 61524596 Problem Attention-deficit hyperactivity disorder, predominantly inattentive type F90.0 Active 42799311 Problem Obstructive sleep apnea G47.33 Active 00055328 Problem Primary insomnia F51.01 Active 0702658 Problem Neuralgia M79.2 Active 08455822 Problem Cannabis use disorder, mild, abuse F12.10 Active 95913215 Problem Folic acid deficiency E53.8 Active 857333919 Problem Restless legs G25.81 Active 26459035 Problem Major depressive disorder, recurrent, mild F33.0 Active 11219331 Problem Generalized anxiety disorder F41.1 Active 83659518 Problem Major depressive disorder, recurrent episode, moderate F33.1 Active 222769185 Problem Hypertension I10 Active 00600815 Problem Hyperlipidemia E78.5 Active 78902168 Problem Primary osteoarthritis of both knees M17.0 Active 074287398 Problem Chronic hepatitis K73.9 Active 88966476 Problem Low back pain M54.5 Active 816474032 Problem Chronic viral hepatitis B without delta-agent B18.1 Active 549911563 Problem Insomnia G47.00 Active 969821659 Problem Hypothyroid E03.9 Active 92766491 Problem Depression, major, recurrent, mild F33.0 Active 189721337 Problem Obesity due to excess calories, unspecified obesity severity E66.09 Active [id number] ALLERGIES No Information ENCOUNTERS Encounter Location Date Diagnosis [facility] [address] [id number] [address] Mar, [facility] [address] [id number], [place] [address] Jan, [facility] [id number] [place] [address] 61188- 9985 December, [facility] [address] 98896- 3343 December, [facility] [id number] [place] [address] 22800- 5473 Dec, Bone pain M89.8X9 [facility] [address] 15247- 7215 Dec, [facility] [id number] [place] [address] 23297- 5778 Oct, [facility] [id number] [place] [address] 73484- 4029 05 Oct, 2017 Syncope, unspecified syncope type R55 ; Primary insomnia F51.01 ; Dry mouth R68.2 and Cannabis use disorder, mild, abuse F12.10 [facility] [id number] [place] [address] 79073- 8412 Oct, [facility] [id number] [place] [address] 63442- 5132 Sep, [facility] [id number] [place] [address] 34881- 3221 Sep, [facility] [id number] [place] [address] 33951- 5633 Sep, [facility] [id number] [place] [address] [id number] Sep, Dental examination Z01.20 [facility] [id number] [place] [address] 01959- 7781 Sep, Dental examination Z01.20 [facility] [id number] [place] [address] 73302- 7123 Sep, Sinus congestion R09.81 ; Mouth sores K13.79 ; Low back pain M54.5 and Mouth swelling R22.0 [facility] [id number] [place] [address] 90120- 2441 Aug, Low back pain M54.5 [facility] [address] 97824- 6802 Aug, Low back pain M54.5 [facility] [address] 54773- 4509 Jul, [place] [address] 47478- 9876 Jul, Hyperinsulinemia E16.1 ; Encounter for immunization Z23 ; Hypothyroid E03.9 ; Decreased renal function N28.9 and Muscle cramps R25.2 [place] [address] 38320- 9081 Jul, [place] [address] 71694- 1635 Jul, [place] [address] 51772- 0815 Jul, [place] [address] 18919- 1663 Jul, Major depressive disorder, recurrent, mild F33.0 [place] [id number] [place] [address] 55452- 4156 Jul, Acquired cyst of kidney N28.1 ; Acidosis E87.2 and Hyperkalemia E87.5 [place] [id number] [place] [address] 55652- 3227 Jul, Major depressive disorder, recurrent, mild F33.0 ; Attention -deficit hyperactivity disorder, predominantly inattentive type F90.0 and Generalized anxiety disorder F41.1 [facility] [id number] [place] [address] 61195- 2061 Jul, Low back pain M54.5 [facility] [address] 32320- 4583 Jun, Cough R05 ; Low back pain M54.5 and Pre-syncope R55 [facility] [id number] [place] [address] 23966- 8160 Jun, Low back pain M54.5 [facility] [address] [facility] [id number] [place] [address] [id number] Jun, Dental caries K02.9 [facility] [address] 01218- 8156 Jun, [facility] [id number] [place] [address] 37992- 8295 Jun, Major depressive disorder, recurrent, mild F33.0 ; Attention -deficit hyperactivity disorder, predominantly inattentive type F90.0 and Generalized anxiety disorder F41.1 [facility] [id number] [place] [address] 77262- 2968 May, Vertigo R42 ; Confusion R41.0 ; Weakness R53.1 and Vision changes H53.9 [facility] [id number] [place] [address] 78712- 4078 May, [facility] [id number] [place] [address] 53765- 5731 May, [facility] [id number] [place] [address] 39681- 6130 May, Low back pain M54.5 [facility] [id number] [place] [address] 05926- 7045 May, Major depressive disorder, recurrent, mild F33.0 ; Attention -deficit hyperactivity disorder, predominantly inattentive type F90.0 and Generalized anxiety disorder F41.1 [facility] [id number] [place] [address] 56402- 8461 May, [facility] [id number] [place] [address] 24164- 3542 May, Acute worsening of stage 3 chronic kidney disease N18.3 [place] [id number] [place] [address] 20711- 2627 Apr, [place] [address] 43608- 7746 Apr, Acute allergic rhinitis due to pollen, unspecified seasonality J30.1 ; Restless legs G25.81 and Low back pain M54.5 [place] [address] 25572- 6352 Apr, Primary osteoarthritis of both knees M17.0 [place] [address] 47583- 2987 Apr, Generalized anxiety disorder F41.1 [place] [address] 24491- 1533 Apr, Major depressive disorder, recurrent, mild F33.0 ; Attention -deficit hyperactivity disorder, predominantly inattentive type F90.0 and Generalized anxiety disorder F41.1 [place] [address] 55860- 8835 Apr, [place] [address] 55800- 1045 Mar, Major depressive disorder, recurrent episode, moderate F33.1 ; Generalized anxiety disorder F41.1 and ADHD, predominantly inattentive type F90.0 [facility] [id number] [place] [address] 36773 -8409 Mar, Abscess L02.91 [facility] [id number] [place] [address] 95848- 7646 Mar, Hyperinsulinemia E16.1 [facility] [address] 25406- 9840 Mar, Decreased renal function N28.9 [facility] [id number] [place] [address] [id number] Mar, Dental examination Z01.20 [facility] [address] 61656- 7872 Mar, Hyperinsulinemia E16.1 [facility] [address] [address] 2675 Mar, Hyperinsulinemia E16.1 [facility] [address] [id number] 14 Mar, 2017 Dental examination Z01.20 and Dental caries K02.9 [facility] [id number] [place] [address] 64117- 6214 Mar, Chronic viral hepatitis B without delta-agent B18.1 ; Folic acid deficiency E53.8 ; Hyperinsulinemia E16.1 and Decreased renal function N28.9 [facility] [id number] [place] [address] 76599- 6539 Mar, Major depressive disorder, recurrent, mild F33.0 [place] [id number] [place] [address] 30390- 5212 Mar, [facility] [id number] [place] [address] 25619- 3493 Mar, Chronic hepatitis K73.9 ; Hyperinsulinemia E16.1 ; Localized edema R60.0 ; Illicit drug use F19.90 ; Vision changes H53.9 and Obesity due to excess calories, unspecified obesity severity E66.09 [place] [id number] [place] [address] 70174- 3066 Jan, Major depressive disorder, recurrent, mild F33.0 [facility] [id number] [place] [address] 69445- 8275 Jan, Chronic viral hepatitis B without delta-agent B18.1 [facility] [id number] [place] [address] 31878- 2316 Jan, [place] [id number] [place] [address] 66697- 5925 Jan, Weight gain R63.5 ; Hypothyroid E03.9 ; Hyperinsulinemia E16.1 ; Decreased renal function N28.9 and Chronic viral hepatitis B without delta-agent B18.1 [facility] [id number] [place] [address] 45618- 3323 December, Major depressive disorder, recurrent, mild F33.0 and Generalized anxiety disorder F41.1 [facility] [id number] [place] [address] 94761- 4505 December, Obesity due to excess calories, unspecified obesity severity E66.09 and Folic acid deficiency E53.8 [facility] [id number] [place] [address] 49290- 9708 December, Folic acid deficiency E53.8 [place] [address] 28980- 9075 December, Folic acid deficiency E53.8 [place] [id number] [place] [address] 92143- 3864 December, Obesity due to excess calories, unspecified obesity severity E66.09 [facility] [id number] [place] [address] 70200- 4814 December, [facility] [id number] [place] [address] 05711- 9837 December, Folic acid deficiency E53.8 [facility] [id number] [place] [address] [id number] December, Encounter for other administrative examinations Z02.89 [place] [id number] [place] [address] 43793- 8901 Dec, [facility] [id number] [place] [address] [id number] Dec, Dental caries K02.9 [place] [id number] [place] [address] 62998- 7146 Oct, Bone pain M89.8X9 [place] [id number] [place] [address] 58079- 6668 Oct, Hypothyroid E03.9 [facility] [id number] [address]- 2702 24 Oct, 2016 Hypothyroid E03.9 [facility] [id number] [place] [address] 09995- 6255 Oct, Breast cancer screening Z12.39 [facility] [id number] [id number] 08 Oct, 2016 Dental examination Z01.20 [facility] [id number] [place] [address] 87973- 6875 Oct, [facility] [id number] [place] [address] 85424- 6867 Oct, Major depressive disorder, recurrent, mild F33.0 and Generalized anxiety disorder F41.1 [place] [id number] [place] [address] 31072- 8465 Oct, [facility] [id number] [place] [address] 13467- 2640 Oct, Hypothyroid E03.9 [facility] [id number] [place] [address] 87968- 6569 Sep, Hypothyroid E03.9 ; Chronic viral hepatitis B without delta- agent B18.1 and Folic acid deficiency E53.8 [place] [id number] [place] [address] 55798- 5067 Sep, Hypothyroidism, unspecified type E03.9 ; Elevated parathyroid hormone E34.9 and Chronic viral hepatitis B without delta-agent B18.1 [facility] [id number] [place] [address] 57448- 1494 Sep, [facility] [id number] [place] [address] 44384- 0149 Sep, Elevated parathyroid hormone E34.9 [facility] [id number] [place] [address] 15494- 2700 Sep, [facility] [id number] [place] [address] 33570- 3762 Sep, Chronic hepatitis K73.9 ; Bone pain M89.8X9 and Abnormal complete blood count R79.89 [facility] [id number] [place] [address] 90742- 3475 27 Aug, 2016 Major depressive disorder, recurrent, mild F33.0 [facility] [id number] [place] [address] 83408- 1002 Aug, Bone pain M89.8X9 [facility] [id number] [place] [address] 98474- 4340 Aug, [place] [address] 05284- 2744 Jul, Chronic viral hepatitis B without delta-agent B18.1 [place] [address] 07120- 5033 Jul, Hypothyroidism, unspecified type E03.9 [place] [id number] [place] [address] 05524- 0228 Jul, [place] [address] 41025- 7011 Jul, Chronic hepatitis K73.9 and Hypothyroid E03.9 [place] [id number] [place] [address] 39951- 5499 Jul, Low back pain M54.5 [place] [id number] [place] [address] 11268- 9121 Jun, Depression, major, recurrent, mild F33.0 and ADD (attention deficit disorder) F90.0 [facility] [id number] [place] [address] 53768- 0661 Jun, [facility] [id number] [place] [address] 73979- 3510 Jun, Low back pain M54.5 [facility] [address] 78217- 6907 Jun, Encounter for immunization Z23 ; Major depressive disorder, recurrent, mild F33.0 and Attention-deficit hyperactivity disorder, predominantly inattentive type F90.0 [facility] [id number] [place] [address] 97008- 1555 Jun, [facility] [id number] [place] [address] 10344- 2550 Jun, Low back pain M54.5 [facility] [id number] [place] [address] 58320- 6974 May, [facility] [address] 70993- 6764 May, [facility] [id number] [place] [address] 90630- 2750 May, Essential (primary) hypertension I10 [facility] [address] 87023- 2657 May, Low back pain M54.5 [facility] [id number] [place] [address] 46627- 2345 May, Low back pain M54.5 ; Chronic hepatitis K73.9 and Hypothyroid E03.9 [facility] [id number] [place] [address] 24766- 0193 May, Hypothyroidism, unspecified type E03.9 [facility] [id number] [place] [address] 29247- 4978 08 May, 2016 Low back pain M54.5 [facility] [id number] [place] [address] 66185- 0719 May, [facility] [id number] [place] [address] 24308- 8008 May, [facility] [id number] [place] [address] 11070- 1298 May, Major depressive disorder, recurrent, moderate F33.1 ; Generalized anxiety disorder F41.1 ; Insomnia G47.00 and ADD (attention deficit disorder) F90.0 [place] [id number] [place] [address] 15826- 6266 Apr, Low back pain M54.5 [facility] [id number] [place] [address] 46791- 1279 Apr, [facility] [address] 09418- 0582 Apr, Low back pain M54.5 [place] [address] 47366- 3837 Apr, Low back pain M54.5 ; Tooth pain K08.8 and Seasonal allergic rhinitis due to pollen J30.1 [place] [address] 60777- 9603 Apr, Low back pain M54.5 [place] [address] 33904- 4807 Apr, LGSIL Pap smear of vagina R87.622 [place] [address] 01569- 1317 Apr, Low back pain M54.5 [place] [id number] [place] [address] 45630- 1720 Mar, [place] [address] 45357- 0148 Mar, Low back pain M54.5 [place] [id number] [place] [address] 05073- 1701 Mar, Encounter for Papanicolaou smear for cervical cancer screening Z12.4 ; Encounter for routine gynecological examination Z01.419 and Breast cancer screening Z12.39 [place] [id number] [place] [address] 28574- 1251 18 Mar, 2016 Hypothyroidism, unspecified type E03.9 [place] [address] [place] [address]- 2433 Mar, Low back pain M54.5 ; Other chronic pain G89.29 ; Hypothyroid E03.9 and Hypothyroidism, unspecified type E03.9 [facility] [id number] [place] [address] 71564- 5861 Mar, Major depressive disorder, recurrent, moderate F33.1 and Attention-deficit hyperactivity disorder, predominantly inattentive type F90.0 [facility] [id number] [place] [address] 01725 -1911 Mar, Bronchitis J40 [facility] [id number] [place] [address] 17106- 9458 Jan, [facility] [id number] [place] [address] 98856- 4872 Jan, [facility] [id number] [place] [address] 41577- 4629 Jan, Insomnia G47.00 [facility] [id number] [place] [address] 07460- 5272 December, [facility] [id number] [place] [address] 95349- 3919 December, Major depressive disorder in partial remission F32.4 and Attention-deficit hyperactivity disorder, unspecified type F90.9 [facility] [id number] [place] [address] 38668- 8534 December, [facility] [id number] [place] [address] 71888- 9041 December, [facility] [id number] [place] [address] 32315- 9744 Dec, [facility] [id number] [place] [address] 65949- 5945 Dec, Major depressive disorder, recurrent episode, moderate 296.32 and Attention deficit disorder of childhood without mention of hyperactivity 314.00 [facility] [id number] [place] [address] 32310- 3267 Dec, Major depressive disorder, recurrent episode, mild 296.31 ; ADD (attention deficit disorder) F90.0 and Hyperlipidemia E78.5 [facility] [id number] [place] [address] 92828- 3950 Dec, Insomnia G47.00 [facility] [id number] [place] [address] 12595- 0896 Dec, Attention-deficit hyperactivity disorder, predominantly inattentive type F90.0 [facility] [id number] [place] [address] 01175- 2984 Oct, Restless legs syndrome G25.81 [place] [id number] [place] [address] 60179- 3485 Oct, Hypothyroidism, unspecified type E03.9 [place] [id number] [place] [address] 79029- 9514 Oct, [facility] [id number] [place] [address] 96704- 2836 Oct, [facility] [id number] [place] [address] 04166- 6966 Oct, Hypothyroid E03.9 and Chronic hepatitis K73.9 [facility] [id number] [place] [address] [id number]- [phone] Oct, [facility] [id number] [place] [address] [id number]- [phone] Oct, Restless legs syndrome G25.81 ; Chronic hepatitis K73.9 ; Hypertension I10 ; Hypothyroid E03.9 and Breast cancer screening Z12.39 [facility] [id number] [place] [address] [id number] Oct, [facility] [id number] [place] [address] [phone]- [phone] Oct, [facility] [id number] [place] [phone] Oct, [facility] [id number] [address] Oct, [facility] [id number] [address] Oct, [facility] [id number] [address] Oct, [facility] [id number] [place] [address] [id number]- [phone] Oct, [facility] [id number] [place] [address] [phone] Sep, [facility] [id number] [place] [address] [id number]- [phone] Sep, Attention-deficit hyperactivity disorder, predominantly inattentive type F90.0 and Major depressive disorder in partial remission F32.4 [facility] [id number] [address] Sep, [facility] [id number] [place] [address] [phone]- [phone] Aug, [facility] [address] [address] Aug, [facility] [address], [place] [address] Aug, Major depressive disorder, recurrent, mild F33.0 ; Attention -deficit hyperactivity disorder, unspecified type F90.9 and Generalized anxiety disorder F41.1 [facility] [address], [place] [address] 08 Aug, 2015 Chronic hepatitis K73.9 ; Primary osteoarthritis of both knees M17.0 and Neuralgia M79.2 [facility] [address], [place] [address] Jul, [facility] [id number] [place] [address]- 6088 Jul, [facility] [id number] [place] [address] 07451- 5148 Jul, [facility] [id number] [place] [address]78- 9776 Jul, [facility] [id number] [place] [address] 64248- 4793 Jun, [facility] [address] [address] Jun, Bronchitis J40 and Encounter for immunization Z23 [facility] [address] [address]- [address] 30 May, 2015 [facility] [id number] [place] [address] 8[address]- 4049 May, [facility] [address] [address]- 7880 May, [facility] [id number] [place] [address]72- 6525 May, Hypokalemia 276.8 [facility] [id number] [place] [address] 98577- 8155 08 May, 2015 Major depressive disorder, recurrent episode, mild 296.31 ; Attention deficit disorder of childhood without mention of hyperactivity 314.00 and Generalized anxiety disorder 300.02 [facility] [id number] [place] [address] 28[address]- 3933 May, Hypertension 401.9 and Hypokalemia 276.8 [facility] [id number] [place] [address] 81042- 3104 May, [facility] [id number] [place] [address] 15835- 2040 Apr, [facility] [id number] [place] [address] 74377- 5163 Apr, [facility] [address] [address] Apr, [facility] [address] [address]- 6764 Apr, [facility] [address] [address] [address] Mar, [facility] [id number] [place] [address] 31776- 1516 Mar, [facility] [id number] [place] [address] 28113- 3587 Mar, [facility] [id number] [place] [address] 03395- 4397 Mar, [facility] [id number] [place] [address] 69503- 6613 Mar, Arthritis of both knees 716.96 ; Hepatitis B 070.30 ; Hypertension 401.9 ; Carpal tunnel syndrome 354.0 and Cubital tunnel syndrome 354.2 [facility] [address], [place] [address] 6957 Mar, [facility] [id number] [place] [address] 23278- 3095 Mar, [facility] [address], [place] [address]- 7658 Mar, 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, chronic, without mention of hepatitis delta 070.32 ; Chronic hepatitis C without mention of hepatic coma 070.54 and Major depressive disorder, recurrent episode, moderate 296.32 [facility] [address], [place] [address]- 1281 Jan, [facility] [id number] [place] [address] 96637- 8074 Jan, Major depressive disorder, recurrent episode, mild 296.31 and Attention deficit disorder of childhood without mention of hyperactivity 314.00 [facility] [id number] [place] [address] 78914- 9669 Jan, [facility] [address] [id number] [address] Jan, [facility] [address], [place] [address]- [address] December, Attention deficit disorder of childhood without mention of hyperactivity 314.00 ; Major depressive disorder, recurrent episode, mild 296.31 and Generalized anxiety disorder 300.02 [facility] [address] [id number] [address]- 5[address] December, [facility] [address] [id number] [address]- 9534 Dec, [facility] [id number] [address]- 1449 Dec, [facility] [address], [place] [address]- 8474 19 Oct, 2014 [facility] [id number], [place] [address]- 8157 19 Oct, 2014 [facility] [id number], [place] [address]- 6066 18 Oct, 2014 [facility] [id number], [place] [address]- 2218 18 Oct, 2014 [facility] [id number], [place] [address]- 5705 18 Oct, 2014 [facility] [id number], [place] [address]- 1607 18 Oct, 2014 [facility] [address] [id number]- 1169 16 Oct, 2014 [facility] [address] [id number] 9661 13 Oct, 2014 [facility] [id number] [address]48 13 Oct, 2014 [facility] [id number] [address]- 0262 12 Oct, 2014 [facility] [place] [facility] [address] [id number] [place] [address]- 6785 Oct, [facility] [place] [facility] [address] [id number] [place] [address]- 6256 Oct, [facility] [place] [facility] [address] [id number] [place] [address]- 9399 Oct, [facility] [place] [facility] [address] [id number] [place] [address]- 5211 Oct, [facility] [place] [facility] [address] [id number] [place] [address]- 9801 05 Oct, 2014 [facility] [place] [facility] [address] [id number] [place] [address]- 7065 Oct, [facility] [place] [facility] [address] [id number] [place] [address]- 3254 26 Oct, 2014 [facility] [place] [facility] [address] [id number] [place] [address]- 9690 25 Oct, 2014 [facility] [place] [facility] [address] [id number] [place] [address]- 7806 Oct, [facility] [place] [facility] [address] [id number] [place] [address]- 2593 18 Oct, 2014 [facility] [place] [facility] [address] [id number], [place] [address]- 4805 Oct, 2014 [facility] [place] [facility] [address] [id number] [place] [address]- 3600 17 Oct, 2014 [facility] [place] [facility] [address] [id number] [place] [address]- 5520 Oct, [facility] [place] [facility] [address] [id number] [place] [address]- 7657 11 Oct, 2014 [facility] [place] [facility] [address] [id number], [place] [address]- 0276 Oct, [facility] [place] [facility] [address] [id number] [place] [address]- 0300 Oct, [facility] [place] [facility] [address] [id number] [place] [address]- 5243 Oct, [facility] [place] [facility] [address] [id number] [place] [address]- 8134 Oct, [facility] [place] [facility] [address] [id number] [place] [address]- 3126 Sep, [facility] [place] [facility] [address] [id number] [place] [address]- 0836 Sep, [facility] [place] [facility] [address] [id number] [place] [address]- 0871 Sep, [facility] [place] [facility] [address] [id number] [place] [address]- 2816 Sep, [facility] [place] [facility] [address] [id number] [place] [address]- 5689 Sep, [facility] [place] [facility] [address] [id number] [place] [address]- 1225 Sep, [facility] [place] [facility] [address] [id number] [place] [address]- 6084 Sep, [facility] [place] [facility] [address] [id number] [place] [address]- 5440 Sep, [facility] [place] [facility] [address] [id number], [place] [address]- 4616 Sep, [facility] [place] [facility] [address] [id number] [place] [address]- 9744 Sep, [facility] [place] [facility] [address] [id number] [place] [address]- 0610 Sep, [facility] [place] [facility] [address] [id number], [place] [address]- 6264 Sep, [facility] [place] [facility] [address] [id number] [place] [address]- 0912 Sep, [facility] [place] [facility] [address] [id number] [place] [address]- 4680 Sep, [facility] [place] [facility] [address] [id number] [place] [address]- 9066 Sep, [facility] [place] [facility] [address] [id number] [place] [address]- 3389 Sep, [facility] [place] [facility] [address] [id number] [place] [address]- 3768 Aug, [facility] [place] [facility] [address] [id number] [place] [address]- 1726 Aug, [facility] [place] [facility] [address] [id number] [place] [address]- 9825 Aug, [facility] [place] [facility] [address] [id number] [place] [address]- 5873 Aug, [facility] [place] [facility] [address] [id number] [place] [address]- 9961 Aug, [facility] [place] [facility] [address] [id number] [place] [address]- 7161 Aug, [facility] [place] [facility] [address] [id number] [place] [address]- 5805 Aug, [facility] [place] [facility] [address] [id number] [place] [address]- 0713 Aug, [facility] [place] [facility] [address] [id number] [place] [address]- 3016 Aug, [facility] [place] [facility] [address] [id number] [place] [address]- 1332 Aug, [facility] [place] [facility] [address] [id number] [place] [address]- 6092 18 Aug, 2014 [facility] [place] [facility] [address] [id number] [place] [address]- 9822 16 Aug, 2014 [facility] [place] [facility] [address] [id number] [place] [address]- 6724 16 Aug, 2014 [facility] [place] [facility] [address] [id number] [place] [address]- 7076 15 Aug, 2014 [facility] [place] [facility] [address] [id number] [place] 5748 15 Aug, 2014 [facility] [place] [facility] [address] [id number] [place] [address]- 9290 Aug, [facility] [place] [facility] [address] [id number] [place] [address]- 1983 Aug, [facility] [place] [facility] [address] [id number] [place] [address]- 7638 Aug, [facility] [place] [facility] [address] [id number] [place] [address]- 8273 Aug, [facility] [place] [facility] [address] [id number] [place] [address]- 5713 04 Aug, 2014 [facility] [place] [facility] [address] [id number] [place] [address]- 0310 Aug, [facility] [place] [facility] [address] [id number] [place] [address]- 8937 04 Aug, 2014 [facility] [place] [facility] [address] [id number] [place] [address]- 8118 Aug, [facility] [place] [facility] [address] [id number], [place] [address]- 2852 04 Aug, 2014 [facility] [place] [facility] [address] [id number] [place] [address]- 2964 Aug, [facility] [place] [facility] [address] [id number] [place] [address]- 6386 Jul, [facility] [place] [facility] [address] [id number] [place] [address]- 4787 Jul, [facility] [place] [facility] [address] [id number] [place] [address]- 7233 Jul, [facility] [place] [facility] [address] [id number] [place] [address]- 8754 Jul, [facility] [place] [facility] [address] [id number] [place] [address]- 9515 Jul, [facility] [place] [facility] [address] [id number] [place] [address]- 2883 Jul, [facility] [place] [facility] [address] [id number] [place] [address]- 7400 Jun, [facility] [place] [facility] [address] [id number] [place] [address]- 1602 Jun, [facility] [place] [facility] [address] [id number] [place] [address]- 2305 Jun, [facility] [place] [facility] [address] [id number] [place] [address]- 7673 Jun, [facility] [place] [facility] [address] [id number] [place] [address]- 7125 Jun, [facility] [place] [facility] [address] [id number] [place] [address]- 2456 Jun, [facility] [place] [facility] [address] [id number] [place] [address]- 5171 Jun, [facility] [place] [facility] [address] [id number] [place] [address]- 9721 Jun, [facility] [place] [facility] [address] [id number] [place] [address]- 8707 16 May, 2014 [facility] [place] [facility] [address] [id number] [place] [address]- 0975 16 May, 2014 [facility] [place] [facility] [address] [id number] [place] [address]- 2690 15 May, 2014 [facility] [place] [facility] [address] [id number] [place] [address]- 3495 May, [facility] [place] [facility] [address] [id number] [place] [address]- 4981 May, [facility] [place] [facility] [address] [id number] [place] [address]- 7151 May, [facility] [place] [facility] [address] [id number] [place] [address]- 9285 May, [facility] [place] [facility] [address] [id number] [place] [address]- 9028 May, [facility] [place] [facility] [address] [id number] [place] [address]- 8924 Apr, [facility] [place] [facility] [address] [id number] [place] [address]- 7720 Apr, [facility] [place] [facility] [address] [id number] [place] [address]- 9036 Apr, [facility] [place] [facility] [address] [id number] [place] [address]- 1489 Apr, [facility] [place] [facility] [address] [id number] [place] [address]- 3122 Apr, [facility] [place] [facility] [address] [id number] [place] [address]- 6122 Apr, [facility] [place] [facility] [address] [id number] [place] [address]- 8260 Apr, [facility] [place] [facility] [address] [id number] [place] [address]- 5822 Apr, [facility] [place] [facility] [address] [id number] [place] [address]- 2205 Apr, [facility] [place] [facility] [address] [id number] [place] [address]- 8676 Apr, [facility] [place] [facility] [address] [id number] [place] [address]- 5602 Apr, [facility] [place] [facility] [address] [id number] [place] [address]- 1572 Apr, [facility] [place] [facility] [address] [id number] [place] 5194 Apr, [facility] [place] [facility] [address] [id number] [place] [address]- 2994 Mar, [facility] [place] [facility] [address] [id number] [place] [address]- 4614 Mar, [facility] [place] [facility] [address] [id number] [place] [address]- 1909 Mar, [facility] [place] [facility] [address] [id number] [place] [address]- 8932 Mar, [facility] [place] [facility] [address] [id number] [place] [address]- 8026 Jan, [facility] [place] [facility] [address] [id number] [place] [address]- 0888 Jan, [facility] [place] [facility] [address] [id number] [place] [address]- 9412 December, [facility] [place] [facility] [address] [id number] [place] [address]- 0779 December, [facility] [place] [facility] [address] [id number] [place] [address]- 5844 December, [facility] [place] [facility] [address] [id number] [place] [address]- 8121 December, [facility] [place] [facility] [address] [id number] [place] [address]- 8391 December, [facility] [place] [facility] [address] [id number] [place] 7509 December, [facility] [place] [facility] [address] [id number] [place] 8539 December, [facility] [place] [facility] [address] [id number] [place] 2868 December, [facility] [place] [facility] [address] [id number] [place] [address]- 0565 Dec, [facility] [place] [facility] [address] [id number] [place] [address]- 0036 Dec, [facility] [place] [facility] [address] [id number] [place] [address]- 1045 Dec, [facility] [place] [facility] [address] [id number] [place] [address]- 4315 Dec, [facility] [place] [facility] [address] [id number] [place] [address]- 6324 Oct, [facility] [place] [facility] [address] [id number] [place] [address]- 4247 Oct, [facility] [place] [facility] [address] [id number] [place] [address]- 7372 Oct, [facility] [place] [facility] [address] [id number] [place] [address]- 5021 Oct, [facility] [place] [facility] [address] [id number] [place] [address]- 7316 Oct, [facility] [place] [facility] [address] [id number] [place] [address]- 9880 Oct, [facility] [place] [facility] [address] [id number] [place] [address]- 7297 Oct, [facility] [place] [facility] [address] [id number] [place] [address]- 9431 Oct, [facility] [place] [facility] [address] [id number] [place] [address]- 5599 Oct, [facility] [place] [facility] [address] [id number] [place] [address]23 Oct, [facility] [place] [facility] [address] [id number] [place] 1528 Oct, [facility] [place] [facility] [address] [id number] [place] [address]- 5035 Oct, [facility] [place] [facility] [address] [id number] [place] [address]- 4462 Oct, [facility] [place] [facility] [address] [id number] [place] [address]- 0838 Oct, [facility] [place] [facility] [address] [id number] [place] [address]- 1355 Oct, 2013 [facility] [place] [facility] [address] [id number] [place] [address]- 1897 Oct, 2013 [facility] [place] [facility] [address] [id number] [place] [address]- 1648 Oct, [facility] [place] [facility] [address] [id number] [place] [address]- 4952 Oct, [facility] [place] [facility] [address] [id number] [place] [address]- 9733 Oct, [facility] [place] [facility] [address] [id number] [place] [address]- 7300 Oct, [facility] [place] [facility] [address] [id number] [place] [address]- 6713 Oct, [facility] [place] [facility] [address] [id number] [place] [address]- 5745 Oct, [facility] [place] [facility] [address] [id number] [place] [address] Sep, [facility] [place] [facility] [address] [id number] [place] [address] Sep, [facility] [place] [facility] [address] [id number] [place] [address] Sep, [facility] [place] [facility] [address] [id number] [place] [address] Sep, [facility] [place] [facility] [address] [id number] [place] [address] Aug, [facility] [place] [facility] [address] [id number] [place] [address] Aug, [facility] [address] [id number] [place] [address] Aug, [facility] [place] [facility] [address] [id number] [place] [address] Aug, [facility] [place] [facility] [address] [id number] [place] [address] Aug, [facility] [place] [facility] [address] [id number] [place] [address] Aug, [facility] [place] [facility] [address] [id number] [place] [address] Aug, [facility] [address] [id number] [place] [address] Aug, [facility] [place] [facility] [address] [id number] [place] [address] Aug, [facility] [place] [facility] [address] [id number] [place] [address] Jul, [facility] [place] [facility] [address] [id number] [place] [address] Jul, [facility] [place] [facility] [address] [id number] [place] [address] Jul, [facility] [place] [facility] [address] [id number] [place] [address] Jul, [facility] [place] [facility] [address] [id number] [place] [address] Jul, [facility] [place] [facility] [address] [id number] [place] [address] Jul, [facility] [place] [facility] [address] [id number] [place] [address] Jul, [facility] [place] [facility] [address] [id number], [place] [address] Jul, [facility] [place] [facility] [address] [id number] [place] [address] Jun, [facility] [place] [facility] [address] [id number] [place] [address] Jun, [facility] [place] [facility] [address] [id number] [place] [address] Jun, [facility] [place] [facility] [address] [id number] [place] [address] Jun, [facility] [place] [facility] [address] [id number] [place] [address] Jun, [facility] [place] [facility] [address] [id number] [place] [address] Jun, [facility] [place] [facility] [address] [id number] [place] [address] Jun, [facility] [place] [facility] [address] [id number], [place] [address] Jun, [facility] [place] [facility] [address] [id number], [place] [address] 30 May, 2013 [facility] [place] [facility] [address] [id number] [place] [address] 26 May, 2013 [facility] [place] [facility] [address] [id number], [place] [address] 23 May, 2013 [facility] [place] [facility] [address] [id number], [place] [address] 19 May, 2013 [facility] [place] [facility] [address] [id number] [place] [address] 12 May, 2013 [facility] [place] [facility] [address] [id number], [place] [address] 11 May, 2013 [facility] [place] [facility] [address] [id number], [place] [address] Apr, [facility] [place] [facility] [address] [id number] [place] [address] Apr, [facility] [address] [id number] [place] [address] Apr, [facility] [place] [facility] [address] [id number] [place] [address] Apr, [facility] [address] [id number] [place] [address] Apr, [facility] [place] [facility] [address] [id number] [place] [address] Apr, [facility] [address] [id number] [place] [address] Apr, [facility] [address] [id number] [place] [address] Mar, [facility] [place] [facility] [address] [id number] [place] [address] Mar, [facility] [address] [id number] [place] [address] Mar, [facility] [place] [facility] [address] [id number] [place] [address] 1471 Mar, [facility] [address] [id number] [place] [address] Mar, [facility] [place] [facility] [address] [id number] [place] [address] Mar, [facility] [place] [facility] [address] [id number] [place] [address] Mar, [facility] [place] [facility] [address] [id number] [place] [address] Jan, [facility] [place] [facility] [address] [id number] [place] [address] 1461 Jan, [facility] [place] [facility] [address] [id number] [place] [address]- 2012 Jan, [facility] [address] [id number] [place] [address] Jan, [facility] [place] [facility] [address] [id number] [place] [address] Jan, [facility] [place] [facility] [address] [id number] [place] [address] Jan, [facility] [place] [facility] [address] [id number] [place] [address] 31[address] Jan, [facility] [address] [id number] [place] [address]- [address] December, [facility] [place] [facility] [address] [id number] [place] [address]- [address] December, [facility] [address] [id number] [place] [address] December, [facility] [address] [address] [id number] [place] [address] December, [facility] [place] [facility] [address] [id number] [place] [address] Dec, [facility] [place] [facility] [address] [id number] [place] [address] Dec, [facility] [place] [facility] [address] [id number] [place] [address] Dec, [facility] [place] [facility] [address] [id number], [place] [address] 29 Oct, 2012 [facility] [place] [facility] [address] [id number] [place] [address] Oct, [facility] [place] [facility] [address] [id number] [place] [address] Oct, [facility] [place] [facility] [address] [id number], [place] [address] Oct, [facility] [place] [facility] [address] [id number], [place] [address] Oct, [facility] [address] [id number] [place] [address] Oct, [facility] [address] [id number] [place] [address] Oct, [facility] [address] [id number] [place] [address]06 Oct, [facility] [address] [id number] [place] [address]31 Oct, [facility] [address] [id number] [place] [address] 08 Oct, 2012 [facility] [address] [id number] [place] [address] 1616 Oct, [facility] [address] [id number] [place] [address] 1151 Sep, [facility] [address] [id number] [place] [address] Sep, [facility] [address] [id number] [place] [address] Sep, [facility] [address] [id number] [place] [address] Aug, [facility] [address] [id number] [place] [address] Aug, [facility] [address] [id number] [place] [address] Aug, [facility] [address] [id number] [place] [address] Aug, [facility] [place] [facility] [address] [id number] [place] [address]666 Jul, [facility] [address] [id number], [place] [address] Jul, [facility] [place] [facility] [address] [id number] [place] [address]28 Jul, [facility] [place] [facility] [address] [id number] [place] [address]246 Jul, [facility] [place] [facility] [address] [id number] [place] [address] 43[address] Jul, [facility] [place] [facility] [address] [id number] [place] [address] 2411 Jul, [facility] [place] [facility] [address] [id number] [place] [address] 4[address] Jul, [facility] [place] [facility] [address] [id number] [place] [address] 7[address] Jul, [facility] [place] [facility] [address] [id number] [place] [address] 6910 Jun, [facility] [place] [facility] [address] [id number] [place] [address] 2041 Jun, [facility] [place] [facility] [address] [id number] [place] [address] Jun, [facility] [place] [facility] [address] [id number] [place] [address] Jun, [facility] [place] [facility] [address] [id number] [place] [address] Jun, [facility] [place] [facility] [address] [id number] [place] [address] 26 May, 2012 [facility] [place] [facility] [address] [id number] [place] [address] 20 Sep2011 [facility] [place] [facility] [address] [id number] [place] [address] 18 May, 2012 [facility] [place] [facility] [address] [id number] [place] [address] 46[address] 09 May, 2012 [facility] [place] [facility] [address] [id number] [place] [address]85 May, [facility] [place] [facility] [address] [id number] [place] [address] 1984 Apr, [facility] [place] [facility] [address] [id number] [place] [address] 3[address] Apr, [facility] [place] [facility] [address] [id number] [place] [address] 5008 Apr, [facility] [place] [facility] [address] [id number] [place] [address] 5[address] Apr, [facility] [place] [facility] [address] [id number] [place] [address] 0342 Apr, [facility] [place] [facility] [address] [id number] [place] [address]- 0144 Apr, [facility] [place] [facility] [address] [id number] [place] [address] 5426 Apr, [facility] [place] [facility] [address] [id number] [place] [address] 4263 Mar, [facility] [place] [facility] [address] [id number] [place] [address] 4656 Mar, [facility] [place] [facility] [address] [id number] [place] [address]- [address]45 Mar, [facility] [place] [facility] [address] [id number] [place] [address] 9054 Mar, [facility] [place] [facility] [address] [id number] [place] [address] 1824 Jan, [facility] [place] [facility] [address] [id number] [place] [address]- 8884 Jan, [facility] [place] [facility] [address] [id number] [place] [address]- 7088 Jan, [facility] [place] [facility] [address] [id number] [place] [address] 9990 Jan, [facility] [place] [facility] [address] [id number] [place] [address] 0[address] Jan, [facility] [address] [id number] [place] [address] 3168 Jan, [facility] [address] [id number] [place] [address] 4616 December, [facility] [address] [id number] [place] [address] 1296 December, [facility] [address] [id number] [place] [address] 4329 December, [facility] [address] [id number] [place] [address] 4524 December, [facility] [address] [id number] [place] [address] 8871 Dec, [facility] [address] [id number] [place] [address]- 0885 Dec, [facility] [address] [id number] [place] [address]- 3754 Oct, [facility] [address] [id number] [place] [address]- 5263 Oct, [facility] [address] [id number] [place] [address] 3811 Oct, [facility] [address] [id number] [place] [address]- 4606 16 Nov, 2011 [facility] [address] [id number] [place] [address]- 6345 Oct, [facility] [place] [facility] [address] [id number] [place] [address]- 1096 Oct, [facility] [address] [id number] [place] [address]- 2546 Oct, [facility] [address] [id number] [place] [address]- 5516 Oct, [facility] [address] [id number] [place] [address]- 4112 Oct, [facility] [place] [facility] [address] [id number] [place] [address]- 2006 Oct, [facility] [address] [id number] [place] [address]- 4746 Oct, [facility] [address] [id number] [place] [address]- 9906 Sep, [facility] [address] [id number] [place] [address]- 7665 Sep, [facility] [address] [id number] [place] [address]- 6806 Sep, [facility] [address] [id number] [place] [address]- 0826 Sep, [facility] [address] [id number] [place] [address]- 2289 Sep, [facility] [address] [id number] [place] [address]- 4282 Sep, [facility] [address] [id number], [place] [address]- 9[address] Sep, [facility] [address] [id number] [place] [address]- 9086 Sep, [facility] [place] [facility] [address] [id number], [place] [address]- 5441 Aug, [facility] [place] [facility] [address] [id number] [place] [address]- 8226 Aug, [facility] [place] [facility] [address] [id number] [place] [address]- 8436 Aug, [facility] [place] [facility] [address] [id number] [place] [address]- 6176 Jul, [facility] [place] [facility] [address] [id number] [place] [address]- 2689 28 Jul, 2011 [facility] [place] [facility] [address] [id number] [place] [address]- 8471 18 Jul, 2011 [facility] [place] [facility] [address] [id number] [place] [address]- 4753 17 Jul, 2011 [facility] [place] [facility] [address] [id number] [place] [address]- 9176 08 Jul, 2011 [facility] [place] [facility] [address] [id number] [place] [address]- 9877 02 Jul, 2011 [facility] [place] [facility] [address] [id number] [place] [address]- 4021 31 Jun, 2011 [facility] [place] [facility] [address] [id number] [place] [address]- 4927 20 Jun, 2011 [facility] [place] [facility] [address] [id number] [place] [address]- 4843 Mar, [facility] [place] [facility] [address] [id number] [place] [address]- 4623 14 Dec, 2010 [facility] [place] [facility] [address] [id number] [place] [address]- 4975 14 Oct, 2010 [facility] [place] [facility] [address] [id number] [place] [address]- 3343 Aug, [facility] [place] [facility] [address] [id number] [place] [address]- 4367 30 Jul, 2010 [facility] [place] [facility] [address] [id number] [place] [address]- 3535 Jul, [facility] [place] [facility] [address] [id number] [place] [address]- 4869 10 Jul, 2010 [facility] [place] [facility] [address] [id number] [place] [address]- 9179 09 Jul, 2010 [facility] [place] [facility] [address] [id number] [place] [address]- 0451 08 Jul, 2010 [facility] [place] [facility] [id number], [place] [address] Aug, [facility] [id number], [place] [address]- 8644 Aug, [facility] [id number], [place] [address]- 8252 Aug, [facility] [id number], [place] [address]- 5716 Aug, [facility] [id number], [place] [address]- 5528 Jul, [facility] [id number] [place] [address]- 5843 Jul, [facility] [id number], [place] [address]- 4221 Jul, [facility] [id number], [place] [address]- 6904 Jul, [facility] [id number], [place] [address]- 1107 Jun, [facility] [id number], [place] [address]- 7489 Jun, IMMUNIZATIONS No Known Immunizations SOCIAL HISTORY Never Assessed REASON FOR VISIT Triage--ADaviedRN PLAN OF CARE VITAL SIGNS MEDICATIONS Unknown [...]
--- OUTSIDE RECORDS SUMMARY | 2018-03-17 11:30 | XMS REPORT ---
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 Active 32642315 Problem Attention-deficit hyperactivity disorder, predominantly inattentive type F90.0 Active 01851446 Problem Obstructive sleep apnea G47.33 Active 70414416 Problem Primary insomnia F51.01 Active 3325488 Problem Neuralgia M79.2 Active 33148801 Problem Cannabis use disorder, mild, abuse F12.10 Active 30519609 Problem Folic acid deficiency E53.8 Active 720094428 Problem Restless legs G25.81 Active 65288356 Problem Major depressive disorder, recurrent, mild F33.0 Active 53447539 Problem Generalized anxiety disorder F41.1 Active 75820574 Problem Major depressive disorder, recurrent episode, moderate F33.1 Active 526552570 Problem Hypertension I10 Active 08688898 Problem Hyperlipidemia E78.5 Active 55127397 Problem Primary osteoarthritis of both knees M17.0 Active 642353702 Problem Chronic hepatitis K73.9 Active 30835176 Problem Low back pain M54.5 Active 877924072 Problem Chronic viral hepatitis B without delta-agent B18.1 Active 641295006 Problem Insomnia G47.00 Active 609691669 Problem Hypothyroid E03.9 Active 58593806 Problem Depression, major, recurrent, mild F33.0 Active 223712991 Problem Obesity due to excess calories, unspecified obesity severity E66.09 Active [id number] ALLERGIES No Information ENCOUNTERS Encounter Location Date Diagnosis [facility] [address] [facility] [id number] [address] December, [facility] [address] [facility] [id number] [address] Dec, [facility] [id number] [place] [address] 32593- 8778 Dec, [facility] [address] 28632- 7875 Oct, [facility] [id number] [place] [address] 19507- 5032 Oct, Syncope, unspecified syncope type R55 ; Primary insomnia F51.01 ; Dry mouth R68.2 and Cannabis use disorder, mild, abuse F12.10 [facility] [id number] [place] [address] 10747- 5585 Oct, [facility] [address] 39773- 9442 Sep, [facility] [id number] [place] [address] 90970- 4216 Sep, [facility] [id number] [place] [address] 90796- 5876 Sep, [facility] [id number] [place] [address] [id number] Sep, Dental examination Z01.20 [facility] [id number] [place] [address] 74698- 6479 Sep, Dental examination Z01.20 [facility] [id number] [place] [address] 81079- 6548 Sep, Sinus congestion R09.81 ; Mouth sores K13.79 ; Low back pain M54.5 and Mouth swelling R22.0 [facility] [id number] [place] [address] 12217- 0227 Aug, Low back pain M54.5 [facility] [id number] [place] [address] 28236- 7377 Aug, Low back pain M54.5 [facility] [id number] [place] [address] 90253- 8172 Jul, [facility] [address] 08109- 9163 Jul, 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 ; Encounter for immunization Z23 ; Hypothyroid E03.9 ; Decreased renal function N28.9 and Muscle cramps R25.2 [facility] [address] 24733- 9251 Jul, [facility] [address] 55279- 4759 Jul, [facility] [address] 93330- 9550 Jul, [place] [address] 82755- 1564 Jul, Major depressive disorder, recurrent, mild F33.0 [place] [address] 97180- 3508 Jul, Acquired cyst of kidney N28.1 ; Acidosis E87.2 and Hyperkalemia E87.5 [place] [address] 28312- 4530 Jul, Major depressive disorder, recurrent, mild F33.0 ; Attention -deficit hyperactivity disorder, predominantly inattentive type F90.0 and Generalized anxiety disorder F41.1 [place] [address] 57713- 9196 Jul, Low back pain M54.5 [facility] [address] 77402- 3144 Jun, Cough R05 ; Low back pain M54.5 and Pre-syncope R55 [place] [address] 21343- 2650 Jun, Low back pain M54.5 [facility] [address] [id number] Jun, Dental caries K02.9 [facility] [id number] [place] [address] 72954- 8795 Jun, [place] [address] 729119- 5273 Jun, Major depressive disorder, recurrent, mild F33.0 ; Attention -deficit hyperactivity disorder, predominantly inattentive type F90.0 and Generalized anxiety disorder F41.1 [place] [address] 62660- 5486 May, Vertigo R42 ; Confusion R41.0 ; Weakness R53.1 and Vision changes H53.9 [place] [address] 89114- 8614 May, [place] [address] 77253- 3561 May, [place] [address] 54784- 1605 May, Low back pain M54.5 [place] [id number] [place] [address] 05458- 8815 05 May, 2017 Major depressive disorder, recurrent, mild F33.0 ; Attention -deficit hyperactivity disorder, predominantly inattentive type F90.0 and Generalized anxiety disorder F41.1 [place] [id number] [place] [address] 63039- 7529 May, [place] [id number] [place] [address] 91678- 3673 May, Acute worsening of stage 3 chronic kidney disease N18.3 [place] [id number] [place] [address] 46878- 8744 Apr, [place] [address] 10791- 4147 Apr, Acute allergic rhinitis due to pollen, unspecified seasonality J30.1 ; Restless legs G25.81 and Low back pain M54.5 [place] [address] [place] [address] 1715 10 Apr, 2017 Primary osteoarthritis of both knees M17.0 [facility] [id number] [place] [address] 34535- 2128 08 Apr, 2017 Generalized anxiety disorder F41.1 [facility] [id number] [place] [address] 34549- 3665 07 Apr, 2017 Major depressive disorder, recurrent, mild F33.0 ; Attention -deficit hyperactivity disorder, predominantly inattentive type F90.0 and Generalized anxiety disorder F41.1 [facility] [id number] [place] [address] 50956- 2607 Apr, [facility] [id number] [place] [address] 67175- 6228 Mar, Major depressive disorder, recurrent episode, moderate F33.1 ; Generalized anxiety disorder F41.1 and ADHD, predominantly inattentive type F90.0 [facility] [id number] [place] [address] 36626 -7996 Mar, Abscess L02.91 [facility] [id number] [place] [address] 22971- 1217 Mar, Hyperinsulinemia E16.1 [facility] [id number] [place] [address] 98606- 6251 Mar, Decreased renal function N28.9 [facility] [id number] [place] [address] [id number] Mar, Dental examination Z01.20 [facility] [address] [place] [address] 08958- 0310 17 Mar, 2017 Hyperinsulinemia E16.1 [facility] [id number] [place] [address] 80412- 8787 Mar, Hyperinsulinemia E16.1 [facility] [id number] [place] [address] [id number] Mar, Dental examination Z01.20 and Dental caries K02.9 [facility] [address] [place] [address] 73069- 7780 Mar, Chronic viral hepatitis B without delta-agent B18.1 ; Folic acid deficiency E53.8 ; Hyperinsulinemia E16.1 and Decreased renal function N28.9 [place] [id number] [place] [address] 91661- 5505 Mar, Major depressive disorder, recurrent, mild F33.0 [place] [id number] [place] [address] 31119- 7403 Mar, [place] [id number] [place] [address] 75598- 9675 Mar, Chronic hepatitis K73.9 ; Hyperinsulinemia E16.1 ; Localized edema R60.0 ; Illicit drug use F19.90 ; Vision changes H53.9 and Obesity due to excess calories, unspecified obesity severity E66.09 [place] [id number] [place] [address] 76101- 2966 Jan, Major depressive disorder, recurrent, mild F33.0 [place] [id number] [place] [address] 84202- 0035 Jan, Chronic viral hepatitis B without delta-agent B18.1 [place] [id number] [place] [address] 34229- 7641 Jan, [place] [id number] [place] [address] 02954- 3286 Jan, Weight gain R63.5 ; Hypothyroid E03.9 ; Hyperinsulinemia E16.1 ; Decreased renal function N28.9 and Chronic viral hepatitis B without delta-agent B18.1 [place] [id number] [place] [address] 00895- 3036 December, Major depressive disorder, recurrent, mild F33.0 and Generalized anxiety disorder F41.1 [place] [id number] [place] [address] 08690- 3912 December, Obesity due to excess calories, unspecified obesity severity E66.09 and Folic acid deficiency E53.8 [facility] [address] [address]- 7010 December, Folic acid deficiency E53.8 [facility] [address] [place] [address] 54258- 1329 December, Folic acid deficiency E53.8 [facility] [address] [place] [address] 40427- 1615 December, Obesity due to excess calories, unspecified obesity severity E66.09 [facility] [id number] [place] [address] 44555- 0683 December, [facility] [id number] [place] [address] 69420- 4820 December, Folic acid deficiency E53.8 [facility] [id number] [place] [address] [id number] December, Encounter for other administrative examinations Z02.89 [facility] [id number] [place] [address] 94763- 7524 Dec, [facility] [id number] [place] [address] [id number] Dec, Dental caries K02.9 [facility] [address] [place] [address] 08222- 0824 Oct, Bone pain M89.8X9 [facility] [id number] [place] [address] 41745- 1452 Oct, Hypothyroid E03.9 [facility] [address] [place] [address] 06572- 8925 24 Oct, 2016 Hypothyroid E03.9 [facility] [id number] [place] [address] 19707- 7423 13 Oct, 2016 Breast cancer screening Z12.39 [facility] [id number] [place] [address] [id number] 08 Oct, 2016 Dental examination Z01.20 [place] [address] [place] [address] 11391- 7588 Oct, [place] [address] 40144- 6974 Oct, Major depressive disorder, recurrent, mild F33.0 and Generalized anxiety disorder F41.1 [place] [id number] [place] [address] 03032- 8507 Oct, [place] [id number] [place] [address] 15573- 6626 Oct, Hypothyroid E03.9 [place] [address] 77131- 3583 Sep, Hypothyroid E03.9 ; Chronic viral hepatitis B without delta- agent B18.1 and Folic acid deficiency E53.8 [place] [address] 07592- 5000 Sep, Hypothyroidism, unspecified type E03.9 ; Elevated parathyroid hormone E34.9 and Chronic viral hepatitis B without delta-agent B18.1 [place] [address] 83521- 3347 Sep, [place] [id number] [place] [address] 90031- 9043 Sep, Elevated parathyroid hormone E34.9 [place] [id number] [place] [address] 36244- 6342 Sep, [place] [id number] [place] [address] 04674- 6416 Sep, Chronic hepatitis K73.9 ; Bone pain M89.8X9 and Abnormal complete blood count R79.89 [place] [id number] [place] [address] 33006- 5321 Aug, Major depressive disorder, recurrent, mild F33.0 [place] [id number] [place] [address] 82559- 2511 Aug, Bone pain M89.8X9 [facility] [id number] [place] [address] 28954- 2269 Aug, [facility] [id number] [place] [address] 96467- 6507 Jul, Chronic viral hepatitis B without delta-agent B18.1 [facility] [address] 76439- 8232 Jul, Hypothyroidism, unspecified type E03.9 [facility] [address] 42840- 5323 Jul, [facility] [address] 89806- 3042 Jul, Chronic hepatitis K73.9 and Hypothyroid E03.9 [place] [address] 24053- 1381 Jul, Low back pain M54.5 [facility] [address] 01142- 4065 Jun, Depression, major, recurrent, mild F33.0 and ADD (attention deficit disorder) F90.0 [facility] [id number] [place] [address] 18713- 5733 Jun, [facility] [id number] [place] [address] 55122- 8754 Jun, Low back pain M54.5 [facility] [id number] [place] [address] 79171- 5104 Jun, Encounter for immunization Z23 ; Major depressive disorder, recurrent, mild F33.0 and Attention-deficit hyperactivity disorder, predominantly inattentive type F90.0 [facility] [id number] [place] [address] 36641- 8052 Jun, [facility] [address] 38139- 4565 Jun, Low back pain M54.5 [facility] [id number] [place] [address] 92844- 6487 May, [facility] [id number] [place] [address] 09699- 5067 May, [facility] [id number] [place] [address] 30025- 2543 May, Essential (primary) hypertension I10 [facility] [id number] [place] [address] 45736- 9321 May, Low back pain M54.5 [facility] [id number] [place] [address] 73597- 9853 May, Low back pain M54.5 ; Chronic hepatitis K73.9 and Hypothyroid E03.9 [facility] [id number] [place] [address] 32820- 5635 May, Hypothyroidism, unspecified type E03.9 [facility] [id number] [place] [address] 45083- 2031 May, Low back pain M54.5 [facility] [id number] [place] [address] 05667- 5802 May, [facility] [id number] [place] [address] 26385- 0613 May, [facility] [id number] [place] [address] 49437- 7591 May, Major depressive disorder, recurrent, moderate F33.1 ; Generalized anxiety disorder F41.1 ; Insomnia G47.00 and ADD (attention deficit disorder) F90.0 [facility] [id number] [place] [address] 23462- 1642 Apr, Low back pain M54.5 [facility] [id number] [place] [address] 47833- 3503 Apr, [facility] [id number] [place] [address] 24675- 2194 15 Apr, 2016 Low back pain M54.5 [place] [id number] [place] [address] 77929- 3785 Apr, Low back pain M54.5 ; Tooth pain K08.8 and Seasonal allergic rhinitis due to pollen J30.1 [place] [address] 36937- 8436 Apr, Low back pain M54.5 [place] [id number] [place] [address] 51461- 9396 Apr, [facility] Pap smear of vagina R87.622 [place] [id number] [place] [address] 05460- 0157 Apr, Low back pain M54.5 [place] [id number] [place] [address] 30354- 3147 Mar, [place] [id number] [place] [address] 27755- 8488 Mar, Low back pain M54.5 [place] [id number] [place] [address] 78045- 1437 Mar, Encounter for Papanicolaou smear for cervical cancer screening Z12.4 ; Encounter for routine gynecological examination Z01.419 and Breast cancer screening Z12.39 [place] [id number] [place] [address] 47545- 7913 18 Mar, 2016 Hypothyroidism, unspecified type E03.9 [place] [id number] [place] [address] 08962- 6304 14 Mar, 2016 Low back pain M54.5 ; Other chronic pain G89.29 ; Hypothyroid E03.9 and Hypothyroidism, unspecified type E03.9 [place] [id number] [place] [address] 09364- 5822 12 Mar, 2016 Major depressive disorder, recurrent, moderate F33.1 and Attention-deficit hyperactivity disorder, predominantly inattentive type F90.0 [facility] [address] [place] [address] 52983 -6650 Mar, Bronchitis J40 [facility] [id number] [place] [address] 18641- 5169 Jan, [facility] [id number] [place] [address] 38777- 2778 Jan, [facility] [id number] [place] [address] 46218- 3139 Jan, Insomnia G47.00 [facility] [id number] [place] [address] 35521- 6543 December, [facility] [id number] [place] [address] 20321- 4437 December, Major depressive disorder in partial remission F32.4 and Attention-deficit hyperactivity disorder, unspecified type F90.9 [facility] [id number] [place] [address] 03112- 3037 December, [facility] [id number] [place] [address] 83782- 6508 December, [facility] [id number] [place] [address] 35125- 3011 Dec, [facility] [id number] [place] [address] 30368- 1754 Dec, Major depressive disorder, recurrent episode, moderate 296.32 and Attention deficit disorder of childhood without mention of hyperactivity 314.00 [facility] [address] [place] [address] 83410- 9152 Dec, Major depressive disorder, recurrent episode, mild 296.31 ; ADD (attention deficit disorder) F90.0 and Hyperlipidemia E78.5 [facility] [address] [place] [address] 13229- 7049 Dec, Insomnia G47.00 [facility] [id number] [place] [address] 70088- 4562 Dec, Attention-deficit hyperactivity disorder, predominantly inattentive type F90.0 [facility] [address] [place] [address] 07386- 1186 Oct, Restless legs syndrome G25.81 [facility] [id number] [place] [address] 61525- 7944 Oct, Hypothyroidism, unspecified type E03.9 [facility] [id number] [place] [address] 53456- 7605 Oct, [facility] [id number] [place] [address] 87646- 7011 Oct, [facility] [id number] [place] [address] 79765- 9987 15 Nov, 2015 Hypothyroid E03.9 and Chronic hepatitis K73.9 [facility] [id number] [place] [address] 85860- 2482 Oct, [facility] [id number] [place] [address] 47086- 9315 08 Nov, 2015 Restless legs syndrome G25.81 ; Chronic hepatitis K73.9 ; Hypertension I10 ; Hypothyroid E03.9 and Breast cancer screening Z12.39 [facility] [address] [address]- 5179 Oct, [facility] [id number] [place] [address] 56669- 3523 Oct, [facility] [id number] [place] [address] 72249- 7818 Oct, [facility] [id number] [place] [address] 12716- 9451 Oct, [facility] [id number] [place] [address] 77483- 9434 Oct, [facility] [id number] [place] [address] 79142- 1044 10 Oct, 2015 [facility] [address] [address]- 8829 Oct, [facility] [address] [place] [address] 64952- 8593 Sep, [facility] [id number] [place] [address] 67139- 3018 Sep, Attention-deficit hyperactivity disorder, predominantly inattentive type F90.0 and Major depressive disorder in partial remission F32.4 [facility] [address] [place] [address] 86697- 7839 Sep, [facility] [id number] [place] [address] 82535- 1769 Aug, [facility] [id number] [place] [address] 96142- 1911 Aug, [facility] [id number] [place] [address] [phone] 15 Aug, 2015 Major depressive disorder, recurrent, mild F33.0 ; Attention -deficit hyperactivity disorder, unspecified type F90.9 and Generalized anxiety disorder F41.1 [facility] [id number] [place] [address] [phone] 08 Aug, 2015 Chronic hepatitis K73.9 ; Primary osteoarthritis of both knees M17.0 and Neuralgia M79.2 [facility] [id number] [address] Jul, [facility] [id number] [address] Jul, [facility] [id number] [place] [address] [phone] Jul, [facility] [id number] [address] Jul, [facility] [id number] [place] [address] [phone] Jun, [facility] [id number] [place] [address] [phone]- [phone] Jun, Bronchitis J40 and Encounter for immunization Z23 [facility] [id number] [place] [address] [phone] 30 May, 2015 [facility] [id number] [place] [address] [address] May, [facility] [id number] [place] [address] 68405- 6013 May, [facility] [address] [address]34- 5364 May, Hypokalemia 276.8 [facility] [id number] [place] [address] 75539- 2378 08 May, 2015 Major depressive disorder, recurrent episode, mild 296.31 ; Attention deficit disorder of childhood without mention of hyperactivity 314.00 and Generalized anxiety disorder 300.02 [facility] [id number] [place] [address] 06033- 3504 May, Hypertension 401.9 and Hypokalemia 276.8 [facility] [id number] [place] [address] 48166- 1095 May, [facility] [id number] [place] [address] 37679- 9694 Apr, [facility] [id number] [place] [address] 58539- 6997 Apr, [facility] [id number] [place] [address] 76497- 0103 Apr, [facility] [id number] [place] [address] 67973- 0473 Apr, [facility] [id number] [place] [address] 73957- 9134 Mar, [facility] [address] 44144- 0947 Mar, [facility] [id number] [address] 8072 Mar, [facility] [id number] [place] [address] 14408- 1542 Mar, [facility] [id number] [place] [address] 22202- 2352 Mar, Arthritis of both knees 716.96 ; Hepatitis B 070.30 ; Hypertension 401.9 ; Carpal tunnel syndrome 354.0 and Cubital tunnel syndrome 354.2 [facility] [id number] [place] [address] 79394- 7511 Mar, [facility] [id number] [place] [address] 00783- 5843 Mar, [facility] [id number] [place] [address] 23004- 0329 Mar, 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, chronic, without mention of hepatitis delta 070.32 ; Chronic hepatitis C without mention of hepatic coma 070.54 and Major depressive disorder, recurrent episode, moderate 296.32 [facility] [id number] [place] [address] 11054- 8921 Jan, [facility] [id number] [place] [address] 39691- 1328 Jan, Major depressive disorder, recurrent episode, mild 296.31 and Attention deficit disorder of childhood without mention of hyperactivity 314.00 [facility] [id number] [address] 6387 Jan, [facility] [id number] [place] [address] 74332- 6329 Jan, [facility] [id number] [address]- 5590 December, Attention deficit disorder of childhood without mention of hyperactivity 314.00 ; Major depressive disorder, recurrent episode, mild 296.31 and Generalized anxiety disorder 300.02 [facility] [place] [facility] [address] [id number] [place] [address]- 4771 08 Dec, 2014 [facility] [place] [facility] [address] [id number] [place] [address]- 0507 14 Dec, 2014 [facility] [place] [facility] [address] [facility] [id number] [place] [address]- 4877 13 Dec, 2014 [facility] [place] [facility] [address] [id number] [place] [address]- 4766 19 Oct, 2014 [facility] [place] [facility] [address] [id number] [place] [address]- 8952 19 Oct, 2014 [facility] [place] [facility] [address] [facility] [id number] [place] [address]- 1871 18 Oct, 2014 [facility] [place] [facility] [address] [facility] [id number] [place] [address]- 1583 18 Oct, 2014 [facility] [place] [facility] [address] [facility] [id number], [place] [address]- 2666 18 Oct, 2014 [facility] [place] [facility] [address] [facility] [id number] [place] [address]- 9283 18 Oct, 2014 [facility] [place] [facility] [address] [facility] [id number], [place] [address]- 9761 16 Oct, 2014 [facility] [place] [facility] [address] [facility] [id number], [place] [address]- 4626 13 Oct, 2014 [facility] [place] [facility] [address] [facility] [id number] [address]- 8096 13 Oct, 2014 [facility] [place] [facility] [address] [facility] [id number], [place] [address]- 7343 12 Oct, 2014 [facility] [place] [facility] [address] [facility] [id number], [place] [address]- 8498 12 Oct, 2014 [facility] [place] [facility] [address] [facility] [id number], [place] [address]- 2154 10 Oct, 2014 [facility] [place] [facility] [address] [facility] [id number], [place] [address]- 0994 Oct, [facility] [place] [facility] [address] [id number] [place] [address]- 0968 Oct, 2014 [facility] [place] [facility] [address] [id number] [place] [address]- 7213 Oct, 2014 [facility] [place] [facility] [address] [facility] [id number] [place] [address]- 4714 Oct, 2014 [facility] [place] [facility] [address] [facility] [id number] [place] [address]- 9299 Oct, 2014 [facility] [place] [facility] [address] [id number] [place] [address]- 6928 25 Oct, 2014 [facility] [place] [facility] [address] [facility] [id number] [place] [address]- 4779 19 Oct, 2014 [facility] [place] [facility] [address] [facility] [id number] [place] [address]- 1188 18 Oct, 2014 [facility] [place] [facility] [address] [facility] [id number] [place] [address]- 6489 17 Oct, 2014 [facility] [place] [facility] [address] [facility] [id number] [place] [address]- 7067 17 Oct, 2014 [facility] [place] [facility] [address] [facility] [id number] [place] [address]- 6897 11 Oct, 2014 [facility] [place] [facility] [address] [facility] [id number] [place] [address]- 2547 11 Oct, 2014 [facility] [place] [facility] [address] [facility] [id number] [place] [address]- 254 11 Oct, 2014 [facility] [place] [facility] [address] [facility] [id number] [place] [address]- 5811 11 Oct, 2014 [facility] [place] [facility] [address] [facility] [id number] [place] [address]- 2546 10 Oct, 2014 [facility] [place] [facility] [address] [facility] [id number] [place] [address]- 5751 Oct, [facility] [place] [facility] [address] [id number] [place] [address]- 3792 Sep, [facility] [place] [facility] [address] [id number] [place] [address]- 9301 Sep, [facility] [place] [facility] [address] [id number] [place] [address]- 7950 Sep, [facility] [place] [facility] [address] [id number] [place] [address]- 2587 Sep, [facility] [place] [facility] [address] [id number] [place] [address]- 1136 Sep, [facility] [place] [facility] [address] [id number] [place] [address]- 3708 Sep, [facility] [place] [facility] [address] [id number] [place] [address]- 7769 Sep, [facility] [place] [facility] [address] [id number] [place] [address]- 5245 Sep, [facility] [place] [facility] [address] [id number] [place] [address]- 3011 Sep, [facility] [place] [facility] [address] [id number] [place] [address]- 2148 Sep, [facility] [place] [facility] [address] [id number], [place] [address]- 0182 Sep, [facility] [place] [facility] [address] [id number], [place] [address]- 2207 Sep, [facility] [place] [facility] [address] [id number], [place] [address]- 7068 Sep, [facility] [place] [facility] [address] [id number], [place] [address]- 6001 Sep, [facility] [place] [facility] [address] [id number], [place] [address]- 7670 Sep, [facility] [place] [facility] [address] [id number] [place] 0647 Sep, [facility] [address] [id number] [place] [address]- 7266 Aug, [facility] [place] [facility] [address] [id number] [place] [address]- 1296 Aug, [facility] [place] [facility] [address] [id number] [place] [address]- 7556 Aug, [facility] [place] [facility] [address] [id number] [place] [address]- 8608 Aug, [facility] [place] [facility] [address] [id number] [place] [address]- 4677 Aug, [facility] [place] [facility] [address] [id number] [place] [address]- 7365 Aug, [facility] [address] [id number] [place] [address]- 4793 Aug, [facility] [place] [facility] [address] [id number] [place] [address]- 9012 Aug, [facility] [place] [facility] [address] [id number] [place] [address]- 4694 19 Aug, 2014 [facility] [place] [facility] [address] [id number] [place] [address]- 7362 18 Aug, 2014 [facility] [place] [facility] [address] [id number] [place] [address]- 3889 18 Aug, 2014 [facility] [place] [facility] [address] [id number] [place] [address]- 5190 16 Aug, 2014 [facility] [place] [facility] [address] [id number] [place] 1856 16 Aug, 2014 [facility] [place] [facility] [address] [id number] [place] [address]- 1766 15 Aug, 2014 [facility] [place] [facility] [address] [id number] [place] [address]- 3367 15 Aug, 2014 [facility] [place] [facility] [address] [id number] [place] [address]- 0076 Aug, [facility] [place] [facility] [address] [id number] [place] [address]- 2441 Aug, [facility] [place] [facility] [address] [id number] [place] [address]- 0546 Aug, [facility] [place] [facility] [address] [id number] [place] [address]- 2908 Aug, [facility] [place] [facility] [address] [id number] [place] [address]- 1152 Aug, [facility] [place] [facility] [address] [id number] [place] [address]- 3532 Aug, [facility] [place] [facility] [address] [id number] [place] [address]- 0567 Aug, [facility] [place] [facility] [address] [id number] [place] [address]- 3062 Aug, [facility] [place] [facility] [address] [id number] [place] [address]- 6539 Aug, [facility] [place] [facility] [address] [id number] [place] [address]- 9560 Aug, [facility] [place] [facility] [address] [id number] [place] [address]- 1491 Jul, [facility] [place] [facility] [address] [id number] [place] [address]- 6624 Jul, [facility] [place] [facility] [address] [id number] [place] [address]- 1430 Jul, [facility] [place] [facility] [address] [id number] [place] [address]- 7742 Jul, [facility] [place] [facility] [address] [id number] [place] 1755 Jul, [facility] [place] [facility] [address] [id number], [place] [address]- 9912 Jul, [facility] [place] [facility] [address] [id number] [place] [address]- 2468 Jun, [facility] [place] [facility] [address] [id number] [place] [address]- 0051 Jun, [facility] [place] [facility] [address] [id number] [place] [address]- 7464 Jun, [facility] [place] [facility] [address] [id number] [place] [address]- 3903 Jun, [facility] [place] [facility] [address] [id number] [place] [address]- 3197 Jun, [facility] [place] [facility] [address] [id number] [place] [address]- 8681 Jun, [facility] [place] [facility] [address] [id number] [place] [address]- 6096 Jun, [facility] [place] [facility] [address] [id number] [place] [address]- 4875 Jun, [facility] [place] [facility] [address] [id number] [place] [address]- 8942 16 May, 2014 [facility] [place] [facility] [address] [id number] [place] [address]- 7923 16 May, 2013 [facility] [place] [facility] [address] [id number], [place] [address]- 8769 15 May, 2013 [facility] [place] [facility] [address] [id number], [place] [address]- 6735 15 May, 2013 [facility] [place] [facility] [address] [id number] [place] [address]- 6206 08 Sep, 2013 [facility] [place] [facility] [address] [id number] [place] [address]- 8884 08 Sep, 2013 [facility] [place] [facility] [address] [id number] [place] [address]- 0927 08 May, 2013 [facility] [place] [facility] [address] [id number] [place] [address]- 5317 May, [facility] [place] [facility] [address] [id number] [place] [address]- 9553 Apr, [facility] [place] [facility] [address] [id number] [place] [address]- 4333 Apr, [facility] [place] [facility] [address] [id number] [place] [address]- 0279 Apr, [facility] [place] [facility] [address] [id number] [place] [address]- 3780 Apr, [facility] [place] [facility] [address] [id number] [place] [address]- 6593 Apr, [facility] [place] [facility] [address] [id number] [place] [address]- 7460 Apr, [facility] [place] [facility] [address] [id number] [place] [address]- 6771 Apr, [facility] [place] [facility] [address] [id number] [place] [address]- 2332 Apr, [facility] [place] [facility] [address] [id number] [place] [address]- 8094 Apr, [facility] [place] [facility] [address] [id number] [place] [address]- 7196 Apr, [facility] [place] [facility] [address] [id number] [place] [address]- 2544 Apr, [facility] [place] [facility] [address] [id number] [place] [address]- 7488 Apr, [facility] [place] [facility] [address] [id number] [place] [address]- 5485 Apr, [facility] [place] [facility] [address] [id number] [place] [address]- 3801 Mar, [facility] [place] [facility] [address] [id number] [place] [address]- 3239 Mar, [facility] [place] [facility] [address] [id number] [place] [address]- 1299 Mar, [facility] [place] [facility] [address] [id number] [place] [address]- 1010 Mar, [facility] [place] [facility] [address] [id number] [place] [address]- 3638 Jan, [facility] [place] [facility] [address] [id number] [place] [address]- 9030 Jan, [facility] [place] [facility] [address] [id number] [place] [address]- 4123 December, [facility] [place] [facility] [address] [id number] [place] [address]- 6088 December, [facility] [place] [facility] [address] [id number] [place] [address]- 7791 December, [facility] [place] [facility] [address] [id number] [place] [address]- 0299 December, [facility] [place] [facility] [address] [id number] [place] [address]- 4400 December, [facility] [place] [facility] [address] [id number] [place] [address]- 5950 December, [facility] [place] [facility] [address] [id number] [place] [address]- 5418 December, [facility] [place] [facility] [address] [id number] [place] [address]- 1357 December, [facility] [place] [facility] [address] [id number] [place] [address]- 7109 Dec, [facility] [place] [facility] [address] [id number] [place] [address]- 6807 Dec, [facility] [place] [facility] [address] [id number] [place] 4357 Dec, [facility] [place] [facility] [address] [id number] [place] [address]- 9596 24 Dec, 2013 [facility] [place] [facility] [address] [id number] [place] [address]- 3352 Oct, [facility] [place] [facility] [address] [id number] [place] 4315 Oct, [facility] [place] [facility] [address] [id number] [place] [address]- 5726 Oct, [facility] [place] [facility] [address] [id number] [place] [address]- 4622 Oct, [facility] [place] [facility] [address] [id number] [place] [address]- 3028 Oct, [facility] [place] [facility] [address] [id number] [place] [address]- 0391 Oct, [facility] [place] [facility] [address] [id number] [place] [address]- 3544 Oct, [facility] [place] [facility] [address] [id number] [place] [address]- 6978 Oct, [facility] [place] [facility] [address] [id number] [place] [address]- 9566 Oct, [facility] [place] [facility] [address] [facility] [id number] [place] [address]- 8898 Oct, [facility] [place] [facility] [address] [id number] [place] [address]- 4861 Oct, [facility] [place] [facility] [address] [id number] [place] [address]- 4220 Oct, [facility] [place] [facility] [address] [id number] [place] [address]- 5356 Oct, [facility] [place] [facility] [address] [id number] [place] [address]- 5112 Oct, [facility] [place] [facility] [address] [id number] [place] [address]- 2718 Oct, [facility] [place] [facility] [address] [id number] [place] [address]- 6989 Oct, [facility] [place] [facility] [address] [id number] [place] [address]- 6076 Oct, [facility] [place] [facility] [address] [id number] [place] [address]- 1410 Oct, [facility] [place] [facility] [address] [id number] [place] [address]- 1343 Oct, [facility] [place] [facility] [address] [id number] [place] [address]- 7421 Oct, [facility] [place] [facility] [address] [id number] [place] [address]- 0029 Oct, [facility] [place] [facility] [address] [id number] [place] [address]- 6429 Oct, [facility] [place] [facility] [address] [id number] [place] [address]- 9859 Sep, [facility] [place] [facility] [address] [id number] [place] [address]- 4922 Sep, [facility] [place] [facility] [address] [facility] [id number] [place] [address]- 2764 Sep, [facility] [place] [facility] [address] [facility] [id number] [place] [address]- 8790 Sep, [facility] [place] [facility] [address] [id number] [place] [address]- 5043 Aug, [facility] [place] [facility] [address] [id number] [place] [address]- 0395 Aug, [facility] [place] [facility] [address] [facility] [id number] [place] [address]- 6989 Aug, [facility] [place] [facility] [address] [facility] [id number] [place] [address]- 8215 Aug, [facility] [place] [facility] [address] [id number] [place] [address]- 1155 Aug, [facility] [address] [id number] [place] 7533 Aug, [facility] [address] [id number] [place] 8969 Aug, [facility] [address] [id number] [place] [address] Aug, [facility] [address] [id number] [place] [address] Aug, [facility] [address] [id number] [place] [address] Jul, [facility] [address] [id number] [place] [address] Jul, [facility] [address] [id number] [place] [address] Jul, [facility] [address] [id number] [place] [address] Jul, [facility] [address] [facility] [id number] [place] [address] Jul, [facility] [address] [facility] [id number] [place] [address] Jul, [facility] [place] [facility] [address] [id number] [place] [address] Jul, [facility] [address] [id number] [place] [address] Jul, [facility] [place] [facility] [address] [id number] [place] [address] Jun, [facility] [place] [facility] [address] [facility] [id number] [place] [address] Jun, [facility] [place] [facility] [address] [facility] [id number] [place] [address] Jun, [facility] [place] [facility] [address] [id number] [place] [address] Jun, [facility] [place] [facility] [address] [id number] [place] [address] Jun, [facility] [place] [facility] [address] [id number] [place] [address] Jun, [facility] [place] [facility] [address] [id number] [place] [address] Jun, [facility] [place] [facility] [address] [id number] [place] [address] Jun, [facility] [place] [facility] [address] [id number] [place] [address] 30 May, 2013 [facility] [place] [facility] [address] [id number] [place] [address] 26 May, 2013 [facility] [place] [facility] [address] [id number] [place] [address] 23 May, 2013 [facility] [place] [facility] [address] [id number] [place] [address] 19 May, 2013 [facility] [place] [facility] [address] [id number], [place] [address] 12 May, 2013 [facility] [place] [facility] [address] [id number], [place] [address] May, [facility] [place] [facility] [address] [id number], [place] [address] Apr, [facility] [place] [facility] [address] [id number] [place] [address] 58[address] Apr, [facility] [place] [facility] [address] [id number], [place] [address] Apr, [facility] [place] [facility] [address] [id number], [place] [address] Apr, [facility] [place] [facility] [address] [id number], [place] [address] Apr, [facility] [place] [facility] [address] [id number] [place] [address] Apr, [facility] [place] [facility] [address] [id number] [place] [address] Apr, [facility] [place] [facility] [address] [id number] [place] [address] Mar, [facility] [place] [facility] [address] [id number] [place] [address] Mar, [facility] [place] [facility] [address] [id number] [place] [address] Mar, [facility] [place] [facility] [address] [id number] [place] [address]- 277[address] Mar, [facility] [place] [facility] [address] [id number] [place] [address] Mar, [facility] [place] [facility] [address] [id number] [place] [address] Mar, [facility] [place] [facility] [address] [id number] [place] [address] Mar, [facility] [place] [facility] [address] [id number] [place] [address] Jan, [facility] [place] [facility] [address] [id number] [place] [address]- [address] Jan, [facility] [place] [facility] [address] [id number] [place] [address]- [address]268 Jan, [facility] [place] [facility] [address] [id number] [place] [address]- 45[address] Jan, [facility] [place] [facility] [address] [id number] [place] [address]- 6[address] Jan, [facility] [place] [facility] [address] [id number] [place] [address]- [address] Jan, [facility] [place] [facility] [address] [id number] [place] [address] Jan, [facility] [address] [id number] [place] [address]- [address] December, [facility] [address] [id number] [place] [address] December, [facility] [address] [id number] [place] [address] December, [facility] [address] [id number] [place] [address] December, [facility] [address] [id number] [place] [address]- [address] Dec, [facility] [address] [id number] [place] [address]- 20[address] Dec, [facility] [address] [id number] [place] [address]- 97[address] Dec, [facility] [address] [id number] [place] [address] Oct, [facility] [address] [id number] [place] [address]487 Oct, [facility] [address] [id number] [place] [address] 1309 Oct, [facility] [address] [id number] [place] [address]- 2023 Oct, [facility] [address] [id number] [place] [address]- 3467 Oct, [facility] [place] [facility] [address] [id number] [place] [address] Oct, [facility] [place] [facility] [address] [id number] [place] [address] Oct, [facility] [place] [facility] [address] [id number] [place] [address]- 2699 Oct, [facility] [place] [facility] [address] [id number] [place] [address]- 3445 Oct, [facility] [place] [facility] [address] [id number] [place] [address]- 6766 Oct, [facility] [place] [facility] [address] [facility] [id number] [place] [address]- 4736 Oct, [facility] [place] [facility] [address] [id number] [place] [address]- [address]471 Sep, [facility] [place] [facility] [address] [id number] [place] [address] Sep, [facility] [place] [facility] [address] [id number] [place] [address] Sep, [facility] [place] [facility] [address] [id number] [place] [address] Aug, [facility] [place] [facility] [address] [id number] [place] [address] Aug, [facility] [place] [facility] [address] [id number] [place] [address] Aug, [facility] [place] [facility] [address] [facility] [id number] [place] [address] Aug, [facility] [place] [facility] [address] [facility] [id number] [address] Jul, [facility] [place] [facility] [address] [id number], [place] [address] Jul, [facility] [place] [facility] [address] [id number] [place] [address]- [address] Jul, [facility] [place] [facility] [address] [facility] [id number] [place] [address] 79[address] Jul, [facility] [place] [facility] [address] [facility] [id number] [place] [address]- 6[address] Jul, [facility] [place] [facility] [address] [id number] [place] [address] Jul, [facility] [place] [facility] [address] [id number] [place] [address]- 386[address] Jul, [facility] [place] [facility] [address] [id number] [place] [address]- 4[address] Jul, [facility] [place] [facility] [address] [id number] [place] [address]- 17[address] Jun, [facility] [place] [facility] [address] [id number] [place] [address]- 5690 Jun, [facility] [place] [facility] [address] [id number] [place] [address], [place] [address]- [address] Jun, [facility] [place] [facility] [address] [id number] [place] [address]- [address]307 Jun, [facility] [place] [facility] [address] [facility] [id number] [place] [address]- 7714 Jun, [facility] [place] [facility] [address] [id number] [place] [address]- [address] 26 May, 2012 [facility] [place] [facility] [address] [id number] [place] [address]- [address] 20 May, 2012 [facility] [place] [facility] [address] [facility] [id number] [place] [address]- [address] 18 May, 2012 [facility] [place] [facility] [address] [id number] [place] [address] 2543 09 May, 2012 [facility] [place] [facility] [address] [id number] [place] [address]- 0764 May, [facility] [place] [facility] [address] [id number] [place] [address]- [address]366 30 Apr, 2012 [facility] [place] [facility] [address] [facility] [id number] [place] [address]- 4816 Apr, [facility] [place] [facility] [address] [facility] [id number] [place] [address]- 7168 Apr, [facility] [place] [facility] [address] [id number] [place] [address]- 8773 Apr, [facility] [place] [facility] [address] [id number] [place] [address] Apr, [facility] [place] [facility] [address] [id number] [place] [address]- 0[address] Apr, [facility] [place] [facility] [address] [id number] [place] [address]- 8501 Apr, [facility] [place] [facility] [address] [id number] [place] [address]- 8627 Mar, [facility] [place] [facility] [address] [id number] [place] [address]- 1825 Mar, [facility] [place] [facility] [address] [id number] [place] [address]- 60[address] Mar, [facility] [place] [facility] [address] [id number] [place] [address]- 9[address] Mar, [facility] [place] [facility] [address] [id number] [place] [address]- 2974 Jan, [facility] [place] [facility] [address] [id number] [place] [address]- [address] Jan, [facility] [place] [facility] [address] [id number] [place] [address]- 8818 Jan, [facility] [place] [facility] [address] [id number] [place] [address]- [address] Jan, [facility] [place] [facility] [address] [id number] [place] [address]- 8708 Jan, [facility] [place] [facility] [address] [id number] [place] [address]- 6149 Jan, [facility] [place] [facility] [address] [id number] [place] [address]- 6[address] December, [facility] [place] [facility] [address] [id number] [place] [address]- 67[address] December, [facility] [address] [id number] [place] [address]- 8668 December, [facility] [place] [facility] [address] [id number] [place] [address]- 4396 December, [facility] [place] [facility] [address] [id number] [place] [address]- 9176 Dec, [facility] [place] [facility] [address] [id number] [place] [address]- 3706 Dec, [facility] [address] [id number] [place] [address]- 6985 Oct, [facility] [place] [facility] [address] [id number] [place] [address]- 0271 Oct, [facility] [address] [id number] [place] [address]- [address] Oct, [facility] [place] [facility] [address] [facility] [id number] [place] [address]- 7990 Oct, [facility] [place] [facility] [address] [facility] [id number] [place] [address]- 6135 Oct, [facility] [place] [facility] [address] [facility] [id number] [place] [address]- 9455 Oct, [facility] [place] [facility] [address] [facility] [id number] [place] [address]- 1315 Oct, [facility] [place] [facility] [address] [facility] [id number] [place] [address]- 2963 Oct, [facility] [place] [facility] [address] [id number] [place] [address]- 7938 Oct, [facility] [place] [facility] [address] [facility] [id number] [place] [address]- 1749 Oct, [facility] [place] [facility] [address] [id number] [place] [address]- [address]296 Oct, [facility] [place] [facility] [address] [id number] [place] [address]- 4236 Sep, [facility] [address] [id number] [place] [address]- 3027 Sep, [facility] [place] [facility] [address] [id number] [place] [address]- 3245 Sep, [facility] [place] [facility] [address] [id number] [place] [address]- 2946 Sep, [facility] [place] [facility] [address] [id number] [place] [address]- 4556 Sep, [facility] [place] [facility] [address] [id number] [place] [address]- 4649 Sep, [facility] [address] [id number] [place] [address]- 6704 Sep, [facility] [address] [id number] [place] [address]- 6593 Sep, [facility] [address] [id number] [place] [address]- 0517 Aug, [facility] [place] [facility] [address] [id number] [place] [address]- 6443 Aug, [facility] [place] [facility] [address] [id number] [place] [address]- 3236 Aug, [facility] [place] [facility] [address] [id number] [place] [address]- 3976 Jul, [facility] [place] [facility] [address] [id number] [place] [address]- 7635 Jul, [facility] [place] [facility] [address] [id number] [place] [address]- 1038 18 Jul, 2011 [facility] [place] [facility] [address] [id number] [place] [address]- 2808 17 Jul, 2011 [facility] [place] [facility] [address] [id number] [place] [address]- 0103 08 Jul, 2011 [facility] [place] [facility] [address] [id number] [place] [address]- 2168 02 Jul, 2011 [facility] [place] [facility] [address] [id number] [place] [address]- 6096 31 Jun, 2011 [facility] [place] [facility] [address] [id number] [place] [address]- 2299 20 Jun, 2011 [facility] [place] [facility] [address] [id number] [place] [address]- 8935 20 Mar, 2011 [facility] [place] [facility] [address] [id number] [place] [address]- 3953 14 Dec, 2010 [facility] [place] [facility] [address] [id number] [place] [address]- 0781 14 Oct, 2010 [facility] [place] [facility] [address] [id number] [place] [address]- 7868 06 Aug, 2010 [facility] [place] [facility] [address] [id number] [place] [address]- 6252 30 Jul, 2010 [facility] [place] [facility] [address] [id number] [place] [address]- 3993 11 Jul, 2010 [facility] [place] [facility] [address] [id number] [place] [address]- 1803 Jul, [facility] [place] [facility] [address] [id number], [place] [address]- 5432 09 Jul, 2010 [facility] [place] [facility] [address] [id number], [place] [address]- 4097 08 Jul, 2010 [facility] [place] [facility] [address] [id number] [place] [address]- 9057 22 Aug, 2009 [facility] [place] [facility] [address] [id number] [place] [address]- 6448 15 Aug, 2009 [facility] [place] [facility] [address] [id number] [place] [address]- 9012 14 Aug, 2009 [facility] [place] [facility] [address] [facility] [id number], [place] [address]- 1310 Aug, [facility] [address] [facility] [id number], [place] [address]- 4376 Jul, [facility] [address] [id number] [address] 4937 Jul, [facility] [address] [facility] [id number] [address] Jul, [facility] [address] [id number] [address]- 0978 Jul, [facility] [address] [id number], [place] [address]- 9384 Jun, [facility] [address] [id number] [address] Jun, IMMUNIZATIONS No Known Immunizations SOCIAL HISTORY Never Assessed REASON FOR VISIT medical clearance appt PLAN OF CARE VITAL SIGNS MEDICATIONS Unknown [...]
--- OUTSIDE RECORDS SUMMARY | 2018-03-17 11:31 | XMS REPORT ---
Author Author 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 Organization [facility] Address [address] [place] [address] Care Team Providers Care Fulfillment Representative Name Role Phone 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 Unavailable PROBLEMS Type Condition ICD9-CM Code [id number] Code Onset Dates Condition Status SNOMED Code Problem Hyperinsulinemia E16.1 Active 98255591 Problem Attention-deficit hyperactivity disorder, predominantly inattentive type F90.0 Active 71659210 Problem Obstructive sleep apnea G47.33 Active 26441238 Problem Primary insomnia F51.01 Active 1366018 Problem Neuralgia M79.2 Active 76837274 Problem Cannabis use disorder, mild, abuse F12.10 Active 03833229 Problem Folic acid deficiency E53.8 Active 895945133 Problem Restless legs G25.81 Active 68851879 Problem Major depressive disorder, recurrent, mild F33.0 Active 69223545 Problem Generalized anxiety disorder F41.1 Active 47820197 Problem Major depressive disorder, recurrent episode, moderate F33.1 Active 015321281 Problem Hypertension I10 Active 75672847 Problem Hyperlipidemia E78.5 Active 40686879 Problem Primary osteoarthritis of both knees M17.0 Active 294756016 Problem Chronic hepatitis K73.9 Active 91847848 Problem Low back pain M54.5 Active 691720154 Problem Chronic viral hepatitis B without delta-agent B18.1 Active 505146573 Problem Insomnia G47.00 Active 003891470 Problem Hypothyroid E03.9 Active 10862374 Problem Depression, major, recurrent, mild F33.0 Active 033854962 Problem Obesity due to excess calories, unspecified obesity severity E66.09 Active 846793918 ALLERGIES No Information ENCOUNTERS Encounter Location Date Diagnosis [facility] [address] [facility] [id number] [address] December, [facility] [address] [facility] [id number] [address] Dec, Bone pain M89.8X9 [facility] [id number] [place] [address] 55289- 3258 Dec, [facility] [id number] [place] [address] 89724- 2982 Oct, [facility] [id number] [place] [address] 11131- 5376 Oct, Syncope, unspecified syncope type R55 ; Primary insomnia F51.01 ; Dry mouth R68.2 and Cannabis use disorder, mild, abuse F12.10 [facility] [id number] [place] [address] 42530- 8105 Oct, [facility] [id number] [place] [address] 48413- 7901 Sep, [facility] [id number] [place] [address] 70590- 3294 Sep, [facility] [id number] [place] [address] 70041- 4995 Sep, [facility] [address] [id number] Sep, Dental examination Z01.20 [facility] [id number] [place] [address] 14885- 2574 Sep, Dental examination Z01.20 [facility] [id number] [place] [address] 13927- 8146 Sep, Sinus congestion R09.81 ; Mouth sores K13.79 ; Low back pain M54.5 and Mouth swelling R22.0 [facility] [id number] [place] [address] 80768- 7029 Aug, Low back pain M54.5 [facility] [id number] [place] [address] 35499- 8754 Aug, Low back pain M54.5 [facility] [id number] [place] [address] 54679- 4545 Jul, [facility] [address] 47[address]- 1941 Jul, Encounter for immunization Z23 ; Hyperinsulinemia E16.1 ; Hypothyroid E03.9 ; Decreased renal function N28.9 and Muscle cramps R25.2 [facility] [address] 93522- 2271 Jul, [facility] [address] 57309- 9653 Jul, [place] [address] 89626- 5546 Jul, [place] [address] 52372- 5308 Jul, Major depressive disorder, recurrent, mild F33.0 [place] [address] 45304- 0737 Jul, Acquired cyst of kidney N28.1 ; Acidosis E87.2 and Hyperkalemia E87.5 [place] [address] 49020- 3890 Jul, Major depressive disorder, recurrent, mild F33.0 ; Attention -deficit hyperactivity disorder, predominantly inattentive type F90.0 and Generalized anxiety disorder F41.1 [place] [address] 77936- 3401 Jul, Low back pain M54.5 [facility] [address] 72038- 0688 Jun, Cough R05 ; Low back pain M54.5 and Pre-syncope R55 [facility] [address] 84197- 1218 Jun, Low back pain M54.5 [facility] [id number] [place] [address] [id number] Jun, Dental caries K02.9 [place] [address] 33488- 3728 Jun, [place] [address] 125441- 5439 Jun, Major depressive disorder, recurrent, mild F33.0 ; Attention -deficit hyperactivity disorder, predominantly inattentive type F90.0 and Generalized anxiety disorder F41.1 [place] [address] 74042- 1939 May, Vertigo R42 ; Confusion R41.0 ; Weakness R53.1 and Vision changes H53.9 [place] [address] 70446- 8008 May, [place] [address] 44068- 6936 May, [place] [address] 62686- 1986 May, Low back pain M54.5 [place] [id number] [place] [address] 09272- 3948 May, Major depressive disorder, recurrent, mild F33.0 ; Attention -deficit hyperactivity disorder, predominantly inattentive type F90.0 and Generalized anxiety disorder F41.1 [place] [id number] [place] [address] 69282- 6124 May, [place] [address] 49740- 6777 May, Acute worsening of stage 3 chronic kidney disease N18.3 [place] [address] 81848- 1835 Apr, [place] [address] 86188- 1280 Apr, Acute allergic rhinitis due to pollen, unspecified seasonality J30.1 ; Restless legs G25.81 and Low back pain M54.5 [place] [address] [address]- 6800 10 Apr, 2017 Primary osteoarthritis of both knees M17.0 [facility] [id number] [place] [address] 10385- 5779 08 Apr, 2017 Generalized anxiety disorder F41.1 [facility] [id number] [place] [address] 55357- 6733 07 Apr, 2017 Major depressive disorder, recurrent, mild F33.0 ; Attention -deficit hyperactivity disorder, predominantly inattentive type F90.0 and Generalized anxiety disorder F41.1 [facility] [id number] [place] [address] 97504- 6497 Apr, [facility] [id number] [place] [address] 38590- 2085 Mar, Major depressive disorder, recurrent episode, moderate F33.1 ; Generalized anxiety disorder F41.1 and ADHD, predominantly inattentive type F90.0 [facility] [id number] [place] [address] 84228 -7360 Mar, Abscess L02.91 [facility] [id number] [place] [address] 83484- 6421 Mar, Hyperinsulinemia E16.1 [facility] [id number] [place] [address] 57821- 4758 Mar, Decreased renal function N28.9 [facility] [id number] [place] [address] [id number] Mar, Dental examination Z01.20 [facility] [id number] [place] [address] 54320- 2490 17 Mar, 2017 Hyperinsulinemia E16.1 [facility] [id number] [place] [address] 70903- 0834 Mar, Hyperinsulinemia E16.1 [facility] [id number] [place] [address] [id number] Mar, Dental examination Z01.20 and Dental caries K02.9 [place] [address] [address]- 4975 12 Mar, 2017 Chronic viral hepatitis B without delta-agent B18.1 ; Folic acid deficiency E53.8 ; Hyperinsulinemia E16.1 and Decreased renal function N28.9 [place] [address] [address]- 8405 Mar, Major depressive disorder, recurrent, mild F33.0 [place] [id number] [place] [address] 83927- 9358 Mar, [place] [id number] [place] [address] 39448- 1062 Mar, Chronic hepatitis K73.9 ; Hyperinsulinemia E16.1 ; Localized edema R60.0 ; Illicit drug use F19.90 ; Vision changes H53.9 and Obesity due to excess calories, unspecified obesity severity E66.09 [place] [id number] [place] [address] 00356- 5722 Jan, Major depressive disorder, recurrent, mild F33.0 [place] [id number] [place] [address] 76356- 2691 Jan, Chronic viral hepatitis B without delta-agent B18.1 [place] [id number] [place] [address] 19493- 0003 Jan, [place] [id number] [place] [address] 42879- 8024 Jan, Weight gain R63.5 ; Hypothyroid E03.9 ; Hyperinsulinemia E16.1 ; Decreased renal function N28.9 and Chronic viral hepatitis B without delta-agent B18.1 [place] [id number] [place] [address] 92974- 9756 December, Major depressive disorder, recurrent, mild F33.0 and Generalized anxiety disorder F41.1 [place] [id number] [place] [address] 69084- 9097 December, Obesity due to excess calories, unspecified obesity severity E66.09 and Folic acid deficiency E53.8 [facility] [address] [address]- 8334 December, Folic acid deficiency E53.8 [facility] [id number] [place] [address] 58307- 4643 December, Folic acid deficiency E53.8 [facility] [id number] [place] [address] 49188- 5143 December, Obesity due to excess calories, unspecified obesity severity E66.09 [facility] [id number] [place] [address] 45567- 2277 December, [facility] [id number] [place] [address] 10557- 0004 December, Folic acid deficiency E53.8 [facility] [id number] [place] [address] [id number] December, Encounter for other administrative examinations Z02.89 [facility] [id number] [place] [address] 12140- 2496 Dec, [facility] [id number] [place] [address] [id number] Dec, Dental caries K02.9 [facility] [id number] [place] [address] 72569- 1381 Oct, Bone pain M89.8X9 [facility] [id number] [place] [address] 31863- 1932 Oct, Hypothyroid E03.9 [facility] [id number] [place] [address] 43204- 8944 24 Oct, 2016 Hypothyroid E03.9 [facility] [id number] [place] [address] 32230- 2588 13 Oct, 2016 Breast cancer screening Z12.39 [facility] [id number] [place] [address] [id number] Oct, Dental examination Z01.20 [place] [id number] [place] [address] 05151- 8051 Oct, [place] [id number] [place] [address] 71279- 6079 Oct, Major depressive disorder, recurrent, mild F33.0 and Generalized anxiety disorder F41.1 [place] [id number] [place] [address] 71998- 6839 Oct, [place] [id number] [place] [address] 71518- 7270 Oct, Hypothyroid E03.9 [place] [address] 17784- 8027 Sep, Hypothyroid E03.9 ; Chronic viral hepatitis B without delta- agent B18.1 and Folic acid deficiency E53.8 [place] [id number] [place] [address] 93703- 5615 Sep, Hypothyroidism, unspecified type E03.9 ; Elevated parathyroid hormone E34.9 and Chronic viral hepatitis B without delta-agent B18.1 [place] [id number] [place] [address] 87033- 8627 Sep, [place] [id number] [place] [address] 45447- 5006 Sep, Elevated parathyroid hormone E34.9 [place] [id number] [place] [address] 30783- 9541 Sep, [place] [id number] [place] [address] 93098- 2010 Sep, Chronic hepatitis K73.9 ; Bone pain M89.8X9 and Abnormal complete blood count R79.89 [place] [id number] [place] [address] 05166- 4767 Aug, Major depressive disorder, recurrent, mild F33.0 [place] [address] [place] [address]- 4024 Aug, Bone pain M89.8X9 [facility] [address] 93350- 8488 Aug, [facility] [id number] [place] [address] 71239- 0321 Jul, Chronic viral hepatitis B without delta-agent B18.1 [facility] [address] 62832- 3814 Jul, Hypothyroidism, unspecified type E03.9 [facility] [address] 13366- 4486 Jul, [facility] [address] 83413- 3828 Jul, Chronic hepatitis K73.9 and Hypothyroid E03.9 [place] [address] 16809- 9008 Jul, Low back pain M54.5 [facility] [address] 94950- 1478 Jun, Depression, major, recurrent, mild F33.0 and ADD (attention deficit disorder) F90.0 [place] [id number] [place] [address] 08628- 3486 Jun, [facility] [address] 14564- 1764 Jun, Low back pain M54.5 [facility] [id number] [place] [address] 01008- 6192 Jun, Encounter for immunization Z23 ; Major depressive disorder, recurrent, mild F33.0 and Attention-deficit hyperactivity disorder, predominantly inattentive type F90.0 [facility] [id number] [place] [address] 52009- 6409 Jun, [facility] [address] 08219- 7971 Jun, Low back pain M54.5 [facility] [id number] [place] [address] 30378- 9155 May, [facility] [id number] [place] [address] 80572- 8958 May, [facility] [id number] [place] [address] 62117- 5644 May, Essential (primary) hypertension I10 [facility] [id number] [place] [address] 04146- 5066 May, Low back pain M54.5 [facility] [id number] [place] [address] 05023- 1009 May, Low back pain M54.5 ; Chronic hepatitis K73.9 and Hypothyroid E03.9 [facility] [id number] [place] [address] 21417- 2042 May, Hypothyroidism, unspecified type E03.9 [facility] [id number] [place] [address] 53409- 6658 08 May, 2016 Low back pain M54.5 [facility] [id number] [place] [address] 54799- 5425 May, [facility] [id number] [place] [address] 28584- 8814 May, [facility] [id number] [place] [address] 03661- 0425 May, Major depressive disorder, recurrent, moderate F33.1 ; Generalized anxiety disorder F41.1 ; Insomnia G47.00 and ADD (attention deficit disorder) F90.0 [facility] [id number] [place] [address] 71569- 7110 Apr, Low back pain M54.5 [facility] [id number] [place] [address] 79497- 3432 Apr, [place] [address] [place] [address] 96751- 6411 Apr, Low back pain M54.5 [place] [id number] [place] [address] 33263- 3094 Apr, Low back pain M54.5 ; Tooth pain K08.8 and Seasonal allergic rhinitis due to pollen J30.1 [place] [id number] [place] [address] 69728- 6963 Apr, Low back pain M54.5 [place] [id number] [place] [address] 38737- 9367 Apr, LGSIL Pap smear of vagina R87.622 [place] [id number] [place] [address] 15529- 0242 Apr, Low back pain M54.5 [place] [id number] [place] [address] 78524- 7351 Mar, [place] [id number] [place] [address] 77763- 4123 Mar, Low back pain M54.5 [place] [id number] [place] [address] 15620- 2971 Mar, Encounter for Papanicolaou smear for cervical cancer screening Z12.4 ; Encounter for routine gynecological examination Z01.419 and Breast cancer screening Z12.39 [place] [address] [place] [address] 91508- 7591 18 Mar, 2016 Hypothyroidism, unspecified type E03.9 [place] [id number] [place] [address] 18024- 8051 14 Mar, 2016 Low back pain M54.5 ; Other chronic pain G89.29 ; Hypothyroid E03.9 and Hypothyroidism, unspecified type E03.9 [place] [address] [place] [address] 65377- 3921 Mar, Major depressive disorder, recurrent, moderate F33.1 and Attention-deficit hyperactivity disorder, predominantly inattentive type F90.0 [facility] [address] [address] -8359 Mar, Bronchitis J40 [facility] [id number] [place] [address] 12321- 3062 Jan, [facility] [id number] [place] [address] 42865- 5710 Jan, [facility] [id number] [place] [address] 00581- 7993 Jan, Insomnia G47.00 [facility] [id number] [place] [address] 00312- 4916 December, [facility] [id number] [place] [address] 60206- 5122 December, Major depressive disorder in partial remission F32.4 and Attention-deficit hyperactivity disorder, unspecified type F90.9 [facility] [id number] [place] [address] 96748- 9768 December, [facility] [id number] [place] [address] 78409- 2133 December, [facility] [id number] [place] [address] 88677- 2927 Dec, [facility] [id number] [place] [address] 88283- 2019 Dec, Major depressive disorder, recurrent episode, moderate 296.32 and Attention deficit disorder of childhood without mention of hyperactivity 314.00 [facility] [id number] [place] [address] 54486- 2675 Dec, Major depressive disorder, recurrent episode, mild 296.31 ; ADD (attention deficit disorder) F90.0 and Hyperlipidemia E78.5 [facility] [address] [address]- 0051 Dec, Insomnia G47.00 [facility] [address] [place] [address]- 7261 Dec, Attention-deficit hyperactivity disorder, predominantly inattentive type F90.0 [facility] [id number] [place] [address] 06695- 7783 Oct, Restless legs syndrome G25.81 [facility] [address] [address]- 9907 Oct, Hypothyroidism, unspecified type E03.9 [facility] [id number] [address]- 5378 Oct, [facility] [id number] [place] [address] 43775- 6637 Oct, [facility] [id number] [place] [address] 97099- 3009 15 Nov, 2015 Hypothyroid E03.9 and Chronic hepatitis K73.9 [facility] [id number] [place] [address] 26517- 1315 Oct, [facility] [id number] [place] [address] 94349- 1606 Oct, Restless legs syndrome G25.81 ; Chronic hepatitis K73.9 ; Hypertension I10 ; Hypothyroid E03.9 and Breast cancer screening Z12.39 [facility] [address] [address]- 8939 Oct, [facility] [address] [address]- 8522 Oct, [facility] [address] [address]- 9199 Oct, [facility] [address] [address]- 1021 Oct, [facility] [address] [address]- 0279 Oct, [facility] [id number] [address]- 2760 10 Oct, 2015 [facility] [address] [address]- 6066 05 Oct, 2015 [facility] [id number] [place] [address] 65117- 9030 Sep, [facility] [id number] [place] [address] 61104- 0306 Sep, Attention-deficit hyperactivity disorder, predominantly inattentive type F90.0 and Major depressive disorder in partial remission F32.4 [facility] [id number] [place] [address] 05642- 3068 Sep, [facility] [id number] [place] [address] 39650- 8333 Aug, [facility] [id number] [place] [address] 37943- 7245 Aug, [facility] [id number] [place] [address] 06149- 6405 Aug, Major depressive disorder, recurrent, mild F33.0 ; Attention -deficit hyperactivity disorder, unspecified type F90.9 and Generalized anxiety disorder F41.1 [facility] [address] [address]- 5061 08 Aug, 2015 Chronic hepatitis K73.9 ; Primary osteoarthritis of both knees M17.0 and Neuralgia M79.2 [facility] [address] [address]- 0825 Jul, [facility] [address] [address]- 1739 Jul, [facility] [id number] [place] [address] 33593- 7910 Jul, [facility] [id number] [place] [address] 81388- 3074 Jul, [facility] [id number] [place] [address] 89314- 5549 Jun, [facility] [id number] [place] [address] 03995- 2395 Jun, Encounter for immunization Z23 and Bronchitis J40 [facility] [id number] [place] [address] [phone] 30 May, 2015 [facility] [id number] [place] [address] [phone] May, [facility] [id number] [place] [address] [phone] May, [facility] [id number] [place] [address] [phone] May, Hypokalemia 276.8 [facility] [id number] [place] [address] [phone] 08 May, 2015 Major depressive disorder, recurrent episode, mild 296.31 ; Attention deficit disorder of childhood without mention of hyperactivity 314.00 and Generalized anxiety disorder 300.02 [facility] [id number] [place] [address] [phone] May, Hypertension 401.9 and Hypokalemia 276.8 [facility] [id number] [place] [address] 47210- 6134 May, [facility] [id number] [place] [address] 26826- 5860 Apr, [facility] [id number] [place] [address] 30087- 7790 Apr, [facility] [id number] [place] [address] 20194- 8191 Apr, [facility] [id number] [place] [address] 12528- 4468 Apr, [facility] [id number] [address] 3296 Mar, [facility] [id number] [address] 9114 Mar, [facility] [id number] [place] [address] 55840- 3264 Mar, [facility] [id number] [place] [address] 08632- 5033 Mar, [facility] [id number] [place] [address] 81257- 0469 Mar, Arthritis of both knees 716.96 ; Hepatitis B 070.30 ; Hypertension 401.9 ; Carpal tunnel syndrome 354.0 and Cubital tunnel syndrome 354.2 [facility] [id number] [place] [address] 23853- 7768 Mar, [facility] [id number] [place] [address] 96072- 5352 Mar, [facility] [id number] [place] [address] 50405- 0362 Mar, 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, chronic, without mention of hepatitis delta 070.32 ; Chronic hepatitis C without mention of hepatic coma 070.54 and Major depressive disorder, recurrent episode, moderate 296.32 [facility] [id number] [address] 2[address] Jan, [facility] [id number] [place] [address] 49204- 6881 Jan, Major depressive disorder, recurrent episode, mild 296.31 and Attention deficit disorder of childhood without mention of hyperactivity 314.00 [facility] [id number] [address]- 7465 Jan, [facility] [id number] [place] [address] 53033- 1137 Jan, [facility] [address] [address] 4219 December, Attention deficit disorder of childhood without mention of hyperactivity 314.00 ; Major depressive disorder, recurrent episode, mild 296.31 and Generalized anxiety disorder 300.02 [facility] [address] [id number] [place] [address]- 1240 08 Dec, 2014 [facility] [address] [facility] [id number] [place] [address]- 8272 14 Dec, 2014 [facility] [address] [facility] [id number] [place] [address]- 2375 13 Dec, 2014 [facility] [address] [id number] [address]- 0398 19 Oct, 2014 [facility] [address] [facility] [id number] [place] [address]- 9687 19 Oct, 2014 [facility] [address] [facility] [id number] [place] [address]- 3708 18 Oct, 2014 [facility] [id number] [address]- 8238 18 Oct, 2014 [facility] [address] [facility] [id number] [place] [address]- 3422 18 Oct, 2014 [facility] [address] [facility] [id number] [place] [address]- 9158 18 Oct, 2014 [facility] [address] [facility] [id number] [place] [address]- 8444 16 Oct, 2014 [facility] [address] [facility] [id number] [address]- 4423 13 Oct, 2014 [facility] [place] [facility] [address] [facility] [id number] [address]- 1049 13 Oct, 2014 [facility] [place] [facility] [address] [facility] [id number] [address]- 8490 12 Oct, 2014 [facility] [place] [facility] [address] [facility] [id number] [address]- 8423 12 Oct, 2014 [facility] [place] [facility] [address] [facility] [id number] [address]- 4175 10 Oct, 2014 [facility] [address] [facility] [id number] [place] [address]- 3831 10 Oct, 2014 [facility] [place] [facility] [address] [id number] [place] [address]- 0633 Oct, 2014 [facility] [place] [facility] [address] [id number] [place] [address]- 0326 Oct, 2014 [facility] [place] [facility] [address] [id number] [place] [address]- 5698 Oct, 2014 [facility] [place] [facility] [address] [id number] [place] [address]- 3730 Oct, 2014 [facility] [place] [facility] [address] [id number] [place] [address]- 6525 25 Oct, 2014 [facility] [place] [facility] [address] [facility] [id number] [place] [address]- 9834 19 Oct, 2014 [facility] [place] [facility] [address] [facility] [id number] [place] [address]- 3133 18 Oct, 2014 [facility] [place] [facility] [address] [facility] [id number] [place] [address]- 5412 17 Oct, 2014 [facility] [place] [facility] [address] [facility] [id number] [place] [address]- 2794 17 Oct, 2014 [facility] [place] [facility] [address] [facility] [id number] [place] [address]- 4459 11 Oct, 2014 [facility] [place] [facility] [address] [facility] [id number] [address]- 8453 Oct, 2014 [facility] [place] [facility] [address] [facility] [id number] [place] [address]- 1628 Oct, 2014 [facility] [place] [facility] [address] [facility] [id number] [place] [address]- 9224 11 Oct, 2014 [facility] [place] [facility] [address] [facility] [id number] [address]- 1560 10 Oct, 2014 [facility] [place] [facility] [address] [facility] [id number] [address]- 4173 Oct, [facility] [address] [id number] [place] [address]- 8093 Sep, [facility] [place] [facility] [address] [id number] [place] [address]- 3004 Sep, [facility] [place] [facility] [address] [id number] [place] [address]- 8897 Sep, [facility] [place] [facility] [address] [id number] [place] [address]- 1193 Sep, [facility] [place] [facility] [address] [id number] [place] [address]- 3270 Sep, [facility] [place] [facility] [address] [id number] [place] [address]- 6527 Sep, [facility] [place] [facility] [address] [id number] [place] [address]- 3464 Sep, [facility] [place] [facility] [address] [id number] [place] [address]- 2199 Sep, [facility] [place] [facility] [address] [id number] [place] [address]- 6281 Sep, [facility] [place] [facility] [address] [id number] [place] [address]- 6970 Sep, [facility] [place] [facility] [address] [id number] [place] [address]- 5830 Sep, [facility] [place] [facility] [address] [id number] [address]- 5163 Sep, [facility] [place] [facility] [address] [id number] [address]- 9723 Sep, [facility] [place] [facility] [address] [id number] [place] [address]- 5006 Sep, [facility] [place] [facility] [address] [id number] [address]- 3623 Sep, [facility] [place] [facility] [address] [id number] [place] [address]- 9119 Sep, [facility] [place] [facility] [address] [id number] [place] [address]- 8356 Aug, [facility] [place] [facility] [address] [id number] [place] 1206 Aug, [facility] [place] [facility] [address] [id number] [place] [address]- 3776 Aug, [facility] [place] [facility] [address] [id number] [place] [address]- 6539 Aug, [facility] [place] [facility] [address] [id number] [place] [address]- 3501 Aug, [facility] [place] [facility] [address] [id number] [place] [address]- 9055 Aug, [facility] [place] [facility] [address] [id number] [place] [address]- 2650 Aug, [facility] [place] [facility] [address] [id number] [place] [address]- 5319 20 Aug, 2014 [facility] [place] [facility] [address] [id number] [place] [address]- 1302 19 Aug, 2014 [facility] [place] [facility] [address] [id number] [place] [address]- 3848 18 Aug, 2014 [facility] [place] [facility] [address] [id number] [place] [address]- 9943 18 Aug, 2014 [facility] [place] [facility] [address] [id number] [place] [address]- 6206 16 Aug, 2014 [facility] [place] [facility] [address] [id number] [place] 16 Aug, 2014 [facility] [place] [facility] [address] [id number] [place] [address]- 3586 15 Aug, 2014 [facility] [place] [facility] [address] [id number] [place] [address]- 6735 15 Aug, 2014 [facility] [place] [facility] [address] [id number] [place] [address]- 2284 Aug, [facility] [place] [facility] [address] [id number] [place] [address]- 8177 Aug, [facility] [place] [facility] [address] [id number] [place] [address]- 1052 Aug, [facility] [place] [facility] [address] [id number] [place] [address]- 2145 Aug, [facility] [place] [facility] [address] [id number] [place] [address]- 0869 Aug, [facility] [place] [facility] [address] [id number] [place] [address]- 1832 Aug, [facility] [place] [facility] [address] [id number] [place] [address]- 1746 Aug, [facility] [place] [facility] [address] [id number] [place] [address]- 5131 Aug, [facility] [place] [facility] [address] [id number] [place] [address]- 8929 Aug, [facility] [place] [facility] [address] [id number] [place] [address]- 1141 Aug, [facility] [place] [facility] [address] [id number] [address]- 2093 Jul, [facility] [place] [facility] [address] [id number] [address]- 3708 Jul, [facility] [place] [facility] [address] [id number] [place] [address]- 7841 Jul, [facility] [place] [facility] [address] [id number] [place] [address]- 3562 Jul, [facility] [place] [facility] [address] [id number] [place] [address]- 5323 Jul, [facility] [place] [facility] [address] [id number] [place] [address]- 1524 Jul, [facility] [place] [facility] [address] [id number] [place] [address]- 3127 Jun, [facility] [place] [facility] [address] [id number] [place] [address]- 3606 Jun, [facility] [place] [facility] [address] [id number] [place] [address]- 0165 Jun, [facility] [place] [facility] [address] [id number] [place] [address]- 5329 Jun, [facility] [place] [facility] [address] [id number] [place] [address]- 8381 Jun, [facility] [place] [facility] [address] [id number] [place] [address]- 0896 Jun, [facility] [place] [facility] [address] [id number] [place] [address]- 4383 Jun, [facility] [place] [facility] [address] [id number] [place] [address]- 6668 Jun, [facility] [place] [facility] [address] [id number] [place] [address]- 8140 16 May, 2013 [facility] [place] [facility] [address] [id number] [place] [address]- 6638 16 Sep, 2013 [facility] [place] [facility] [address] [id number] [place] [address]- 2543 15 May, 2013 [facility] [place] [facility] [address] [id number] [place] [address]- 1883 15 Sep, 2013 [facility] [place] [facility] [address] [id number] [place] [address]- 1753 08 Sep, 2013 [facility] [place] [facility] [address] [id number] [place] [address]- 9647 08 Sep, 2013 [facility] [place] [facility] [address] [id number] [place] [address]- 0704 May, [facility] [place] [facility] [address] [id number] [place] [address]- 8838 May, [facility] [place] [facility] [address] [id number] [place] [address]- 2882 Apr, [facility] [place] [facility] [address] [id number] [place] [address]- 7720 Apr, [facility] [place] [facility] [address] [id number] [place] [address]- 8402 Apr, [facility] [place] [facility] [address] [id number] [place] [address]- 0353 Apr, [facility] [place] [facility] [address] [id number] [place] [address]- 3366 Apr, [facility] [place] [facility] [address] [id number] [place] [address]- 8817 Apr, [facility] [place] [facility] [address] [id number] [place] [address]- 3514 Apr, [facility] [place] [facility] [address] [id number] [place] [address]- 8350 Apr, [facility] [place] [facility] [address] [id number] [place] [address]- 1203 Apr, [facility] [place] [facility] [address] [id number] [place] [address]- 0090 Apr, [facility] [place] [facility] [address] [id number] [place] [address]- 6562 Apr, [facility] [place] [facility] [address] [id number] [place] [address]- 4570 Apr, [facility] [place] [facility] [address] [id number] [place] [address]- 1291 Apr, [facility] [place] [facility] [address] [id number] [place] [address]- 1196 Mar, [facility] [place] [facility] [address] [id number] [place] [address]- 0008 Mar, [facility] [place] [facility] [address] [id number] [place] [address]- 5410 Mar, [facility] [place] [facility] [address] [id number] [place] [address]- 7964 Mar, [facility] [place] [facility] [address] [id number] [place] [address]- 3063 Jan, [facility] [place] [facility] [address] [id number] [place] [address]- 2047 Jan, [facility] [place] [facility] [address] [id number] [place] [address]- 3952 December, [facility] [place] [facility] [address] [id number] [place] [address]- 9825 December, [facility] [place] [facility] [address] [id number] [place] [address]- 8545 December, [facility] [place] [facility] [address] [id number] [place] [address]- 8406 December, [facility] [place] [facility] [address] [id number] [place] [address]- 0899 December, [facility] [place] [facility] [address] [id number] [place] [address]- 2666 December, [facility] [place] [facility] [address] [id number] [place] [address]- 9254 December, [facility] [place] [facility] [address] [id number] [place] [address]- 0731 December, [facility] [place] [facility] [address] [id number] [place] [address]- 7006 Dec, [facility] [place] [facility] [address] [id number] [place] [address]- 7419 Dec, [facility] [place] [facility] [address] [id number] [place] [address]- 7766 Dec, [facility] [place] [facility] [address] [id number] [place] [address]- 4057 24 Dec, 2013 [facility] [place] [facility] [address] [id number] [place] [address]- 9442 Oct, [facility] [place] [facility] [address] [id number] [place] [address]- 6315 Oct, [facility] [place] [facility] [address] [id number] [place] [address]- 3389 Oct, [facility] [place] [facility] [address] [id number] [place] [address]- 3720 Oct, [facility] [place] [facility] [address] [id number] [place] [address]- 4249 Oct, [facility] [place] [facility] [address] [facility] [id number] [place] [address]- 1781 Oct, [facility] [place] [facility] [address] [id number] [place] [address]- 9908 Oct, [facility] [place] [facility] [address] [id number] [place] [address]- 7490 Oct, [facility] [place] [facility] [address] [id number] [place] [address]- 9661 Oct, [facility] [place] [facility] [address] [facility] [id number] [place] [address]- 6464 Oct, [facility] [place] [facility] [address] [id number] [place] [address]- 5430 Oct, [facility] [place] [facility] [address] [id number] [place] [address]- 6109 Oct, [facility] [place] [facility] [address] [id number] [place] [address]- 5454 Oct, [facility] [place] [facility] [address] [id number] [place] [address]- 4302 Oct, [facility] [place] [facility] [address] [id number] [place] [address]- 5146 Oct, 2013 [facility] [place] [facility] [address] [id number] [place] [address]- 2684 Oct, [facility] [place] [facility] [address] [id number] [place] [address]- 3739 Oct, 2013 [facility] [place] [facility] [address] [id number] [place] [address]- 2175 Oct, 2013 [facility] [place] [facility] [address] [id number] [place] [address]- 8117 Oct, [facility] [place] [facility] [address] [id number] [place] [address]- 9613 Oct, [facility] [place] [facility] [address] [id number] [place] [address]- 2868 Oct, [facility] [place] [facility] [address] [id number] [place] [address]- 4834 Oct, [facility] [place] [facility] [address] [id number] [place] [address]- 2134 Sep, [facility] [place] [facility] [address] [id number] [place] [address]- 4659 Sep, [facility] [place] [facility] [address] [facility] [id number] [place] [address]- 9563 Sep, [facility] [place] [facility] [address] [id number] [place] [address]- 3421 Sep, [facility] [place] [facility] [address] [id number] [place] [address]- 9702 Aug, [facility] [place] [facility] [address] [id number] [place] [address]- 5947 Aug, [facility] [place] [facility] [address] [facility] [id number] [place] [address]- 4413 Aug, [facility] [place] [facility] [address] [id number] [place] [address]- 2131 Aug, [facility] [place] [facility] [address] [id number] [place] [address]- 5505 Aug, [facility] [place] [facility] [address] [id number] [place] [address]- 0185 Aug, [facility] [place] [facility] [address] [id number] [place] [address]- 8709 Aug, [facility] [place] [facility] [address] [id number] [place] 3607 Aug, [facility] [place] [facility] [address] [id number] [place] [address]- 5231 Aug, [facility] [place] [facility] [address] [id number] [place] [address]- 0916 Jul, [facility] [place] [facility] [address] [id number] [place] [address]- 7160 Jul, [facility] [place] [facility] [address] [id number] [place] [address] Jul, [facility] [place] [facility] [address] [id number] [place] [address] Jul, [facility] [place] [facility] [address] [id number] [place] [address] Jul, [facility] [place] [facility] [address] [id number] [place] [address] Jul, [facility] [place] [facility] [address] [id number] [place] [address] Jul, [facility] [place] [facility] [address] [id number] [place] [address] Jul, [facility] [place] [facility] [address] [id number] [place] [address] Jun, [facility] [place] [facility] [address] [id number] [place] [address] Jun, [facility] [place] [facility] [address] [id number] [place] [address] Jun, [facility] [place] [facility] [address] [id number] [place] [address] Jun, [facility] [place] [facility] [address] [id number] [place] [address] Jun, [facility] [place] [facility] [address] [id number] [place] [address] Jun, [facility] [place] [facility] [address] [id number] [place] [address] Jun, [facility] [place] [facility] [address] [id number] [place] [address] Jun, [facility] [place] [facility] [address] [id number] [place] [address] 30 May, 2013 [facility] [place] [facility] [address] [id number] [place] [address] 26 May, 2013 [facility] [place] [facility] [address] [id number] [place] [address] 23 May, 2013 [facility] [place] [facility] [address] [id number] [place] [address] 19 May, 2013 [facility] [place] [facility] [address] [id number] [place] [address] 12 May, 2013 [facility] [place] [facility] [address] [id number] [address] May, [facility] [place] [facility] [address] [id number] [place] [address] Apr, [facility] [place] [facility] [address] [id number] [place] [address]87 Apr, [facility] [place] [facility] [address] [id number] [place] [address] 2814 Apr, [facility] [place] [facility] [address] [id number] [place] [address] 4185 Apr, [facility] [place] [facility] [address] [id number] [place] [address] Apr, [facility] [address] [id number] [place] [address] Apr, [facility] [place] [facility] [address] [id number] [place] [address] Apr, [facility] [address] [id number] [place] [address] Mar, [facility] [place] [facility] [address] [id number] [place] [address] Mar, [facility] [place] [facility] [address] [id number] [place] [address] Mar, [facility] [place] [facility] [address] [id number] [place] [address] Mar, [facility] [place] [facility] [address] [id number] [place] [address]26 Mar, [facility] [address] [id number] [place] [address] Mar, [facility] [place] [facility] [address] [id number] [place] [address] Mar, [facility] [address] [id number] [place] [address] Jan, [facility] [place] [facility] [address] [id number] [place] [address] Jan, [facility] [place] [facility] [address] [id number] [place] [address] Jan, [facility] [place] [facility] [address] [id number] [place] [address] Jan, [facility] [place] [facility] [address] [id number] [place] [address] Jan, [facility] [place] [facility] [address] [id number] [place] [address]- 9[address] Jan, [facility] [address] [id number] [place] [address] Jan, [facility] [address] [id number] [place] [address] December, [facility] [address] [id number] [place] [address] December, [facility] [address] [id number] [place] [address] December, [facility] [address] [id number] [place] [address]- [address] December, [facility] [address] [id number] [place] [address]- [address] 30 Dec, 2012 [facility] [address] [id number] [place] [address]- 47[address] Dec, [facility] [address] [id number] [place] [address]- [address] Dec, [facility] [address] [id number] [place] [address]- [address] 29 Oct, 2012 [facility] [address] [id number] [place] [address]- [address] Oct, [facility] [place] [facility] [address] [id number] [place] [address]- [address] Oct, [facility] [place] [facility] [address] [id number] [place] [address] Oct, [facility] [place] [facility] [address] [id number] [place] [address]- [address] Oct, [facility] [place] [facility] [address] [id number] [place] [address]- [address] Oct, [facility] [place] [facility] [address] [id number] [place] [address] 18 Oct, 2012 [facility] [place] [facility] [address] [id number] [place] [address] Oct, [facility] [facility] [address] [id number] [place] [address] Oct, [facility] [address] [id number] [place] [address] 08 Oct, 2012 [facility] [address] [id number] [place] [address] Oct, [facility] [address] [id number] [place] [address] Sep, [facility] [address] [id number] [place] [address] Sep, [facility] [address] [id number] [place] [address] Sep, [facility] [address] [id number] [place] [address] 07 Aug, 2012 [facility] [address] [id number] [place] [address] Aug, [facility] [address] [id number] [place] [address] Aug, [facility] [address] [facility] [id number] [place] [address] Aug, [facility] [address] [id number] [place] [address] Jul, [facility] [place] [facility] [address] [id number] [place] [address] Jul, [facility] [place] [facility] [address] [id number] [place] [address] Jul, [facility] [place] [facility] [address] [id number] [place] [address] 98[address] Jul, [facility] [address] [id number] [address] Jul, [facility] [place] [facility] [address] [id number] [place] [address] Jul, [facility] [place] [facility] [address] [id number] [place] [address] 1246 Jul, [facility] [place] [facility] [address] [id number] [place] [address] Jul, [facility] [place] [facility] [address] [id number] [place] [address] Jun, [facility] [place] [facility] [address] [id number] [place] [address] Jun, [facility] [place] [facility] [address] [id number] [place] [address]695 Jun, [facility] [place] [facility] [address] [id number] [place] [address] 9[address] Jun, [facility] [place] [facility] [address] [id number] [place] [address] Jun, [facility] [place] [facility] [address] [id number] [place] [address] 9815 May, [facility] [place] [facility] [address] [id number] [place] [address] May, [facility] [place] [facility] [address] [id number] [place] [address] 18[address] 18 May, 2012 [facility] [place] [facility] [address] [id number] [place] [address] 79[address] May, [facility] [place] [facility] [address] [id number] [place] [address] 1101 May, [facility] [place] [facility] [address] [id number] [place] [address] 0385 Apr, [facility] [place] [facility] [address] [id number] [place] [address] Apr, [facility] [place] [facility] [address] [id number] [place] [address] Apr, [facility] [place] [facility] [address] [id number] [place] [address] Apr, [facility] [place] [facility] [address] [id number] [place] [address] 4310 Apr, [facility] [place] [facility] [address] [id number] [place] [address] 9040 Apr, [facility] [place] [facility] [address] [id number] [place] [address] Apr, [facility] [place] [facility] [address] [id number] [place] [address] Mar, [facility] [place] [facility] [address] [id number] [place] [address] 5670 Mar, [facility] [place] [facility] [address] [id number] [place] [address] 74[address] Mar, [facility] [place] [facility] [address] [id number] [place] [address]77 Mar, [facility] [place] [facility] [address] [id number] [place] [address] Jan, [facility] [place] [facility] [address] [id number] [place] [address]609 Jan, [facility] [place] [facility] [address] [id number] [place] [address] 6294 Jan, [facility] [place] [facility] [address] [id number] [place] [address] 53[address] Jan, [facility] [place] [facility] [address] [id number] [place] [address] Jan, [facility] [place] [facility] [address] [id number] [place] [address] Jan, [facility] [place] [facility] [address] [id number] [place] [address] December, [facility] [place] [facility] [address] [id number] [place] [address]476 December, [facility] [address] [id number] [place] [address] 8099 December, [facility] [address] [id number] [place] [address] 59[address] December, [facility] [address] [id number] [place] [address] 7716 Dec, [facility] [address] [id number] [place] [address] 6866 Dec, [facility] [address] [id number] [place] [address] 37[address] Oct, [facility] [address] [id number] [place] [address] 2783 Oct, [facility] [address] [id number] [place] [address]886 Oct, [facility] [address] [id number] [place] [address] 4[address] 16 Nov, 2011 [facility] [address] [id number] [place] [address] Oct, [facility] [address] [facility] [id number] [place] [address] 6[address] Oct, [facility] [address] [id number] [place] [address] 0496 Oct, [facility] [address] [id number] [place] [address] 8606 Oct, [facility] [place] [facility] [address] [id number] [place] [address] 9316 Oct, [facility] [address] [id number] [place] [address] 7776 Oct, [facility] [address] [id number] [place] [address] 9176 Oct, [facility] [address] [id number] [place] [address] 8689 Sep, [facility] [place] [facility] [address] [id number] [place] [address]- 9601 Sep, [facility] [place] [facility] [address] [id number] [place] [address] 1253 Sep, [facility] [place] [facility] [address] [id number] [place] [address]- 4610 Sep, [facility] [place] [facility] [address] [id number] [place] [address] 5061 Sep, [facility] [place] [facility] [address] [id number] [place] [address]- 7029 Sep, [facility] [place] [facility] [address] [id number] [place] [address]- 6895 Sep, [facility] [place] [facility] [address] [id number] [place] [address]- 3021 Sep, [facility] [place] [facility] [address] [id number] [place] [address]- 9790 Aug, [facility] [place] [facility] [address] [id number] [place] [address]- 3784 Aug, [facility] [place] [facility] [address] [id number] [place] [address] 3763 Aug, [facility] [place] [facility] [address] [id number] [address] Jul, [facility] [place] [facility] [address] [id number] [place] [address]- 8528 Jul, [facility] [place] [facility] [address] [id number] [place] [address]- 2382 18 Jul, 2011 [facility] [place] [facility] [address] [id number] [place] [address]- 8131 17 Jul, 2011 [facility] [place] [facility] [address] [id number] [place] [address]- 3962 08 Jul, 2011 [facility] [address] [id number] [place] [address]- 4666 02 Jul, 2011 [facility] [place] [facility] [address] [id number] [place] [address]- 1376 31 Jun, 2011 [facility] [place] [facility] [address] [id number] [place] [address]- 0125 20 Jun, 2011 [facility] [place] [facility] [address] [id number] [place] [address]- 6929 20 Mar, 2011 [facility] [place] [facility] [address] [id number] [place] [address]- 3865 14 Dec, 2010 [facility] [place] [facility] [address] [id number] [place] [address]- 5995 14 Oct, 2010 [facility] [place] [facility] [address] [id number] [place] [address]- 4128 06 Aug, 2010 [facility] [place] [facility] [address] [id number] [place] [address]- 2032 30 Jul, 2010 [facility] [place] [facility] [address] [id number] [place] [address]- 8683 11 Jul, 2010 [facility] [place] [facility] [address] [facility] [id number] [place] [address]- 0745 10 Jul, 2010 [facility] [place] [facility] [address] [id number] [place] [address]- 1650 09 Jul, 2010 [facility] [place] [facility] [address] [id number] [place] [address]- 4010 08 Jul, 2010 [facility] [place] [facility] [address] [id number] [place] [address]- 4939 22 Aug, 2009 [facility] [place] [facility] [address] [id number] [place] [address]- 3035 15 Aug, 2009 [facility] [place] [facility] [address] [id number] [place] [address]- 1380 14 Aug, 2009 [facility] [place] [facility] [address] [id number] Aug, [facility] [id number] [address] Jul, [facility] [id number] [address] 6[address] Jul, [facility] [id number] [address]- 0726 Jul, [facility] [id number] [address] 6363 Jul, [facility] [id number] [address] 8204 Jun, [facility] [address] [id number] [address]- [address] Jun, IMMUNIZATIONS No Known Immunizations SOCIAL HISTORY Never Assessed REASON FOR VISIT Requests return call PLAN OF CARE VITAL SIGNS MEDICATIONS Medication Instructions Dosage Frequency Start Date End Date Duration Status Requip 1 MG Orally 3 times a day 1 tablet 8h 90 days Active RESULTS No Results PROCEDURES [...]
--- OUTSIDE RECORDS SUMMARY | 2018-03-17 11:32 | XMS REPORT ---
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 Active 35850649 Problem Attention-deficit hyperactivity disorder, predominantly inattentive type F90.0 Active 13495113 Problem Obstructive sleep apnea G47.33 Active 37940399 Problem Primary insomnia F51.01 Active 7107231 Problem Neuralgia M79.2 Active 57990762 Problem Cannabis use disorder, mild, abuse F12.10 Active 61633381 Problem Folic acid deficiency E53.8 Active 818588339 Problem Restless legs G25.81 Active 52928894 Problem Major depressive disorder, recurrent, mild F33.0 Active 20628990 Problem Generalized anxiety disorder F41.1 Active 30003816 Problem Major depressive disorder, recurrent episode, moderate F33.1 Active 985277810 Problem Hypertension I10 Active 07012821 Problem Hyperlipidemia E78.5 Active 26587852 Problem Primary osteoarthritis of both knees M17.0 Active 353549218 Problem Chronic hepatitis K73.9 Active 65801028 Problem Low back pain M54.5 Active 178317587 Problem Chronic viral hepatitis B without delta-agent B18.1 Active 191085406 Problem Insomnia G47.00 Active 532307525 Problem Hypothyroid E03.9 Active 92520706 Problem Depression, major, recurrent, mild F33.0 Active 273080871 Problem Obesity due to excess calories, unspecified obesity severity E66.09 Active 538782106 ALLERGIES No Information ENCOUNTERS Encounter Location Date Diagnosis [facility] [address] [facility] [id number] [address] Mar, [facility] [address] [facility] [id number], [place] [address] Jan, [facility] [id number] [place] [address] 24326- 9674 December, [facility] [address] 39555- 0786 December, [facility] [id number] [place] [address] 90763- 3772 Dec, Bone pain M89.8X9 [facility] [address] 09733- 7639 Dec, [facility] [id number] [place] [address] 25932- 6902 Oct, [facility] [id number] [place] [address] 71956- 4300 05 Oct, 2017 Syncope, unspecified syncope type R55 ; Primary insomnia F51.01 ; Dry mouth R68.2 and Cannabis use disorder, mild, abuse F12.10 [facility] [id number] [place] [address] 20798- 8226 Oct, [facility] [id number] [place] [address] 99203- 1147 Sep, [facility] [id number] [place] [address] 76088- 7133 Sep, [facility] [id number] [place] [address] 18626- 6282 Sep, [facility] [id number] [place] [address] [id number] Sep, Dental examination Z01.20 [facility] [id number] [place] [address] 57643- 9488 Sep, Dental examination Z01.20 [facility] [id number] [place] [address] 59818- 5259 Sep, Sinus congestion R09.81 ; Mouth sores K13.79 ; Low back pain M54.5 and Mouth swelling R22.0 [facility] [id number] [place] [address] 40870- 5807 Aug, Low back pain M54.5 [facility] [address] 80756- 8923 Aug, Low back pain M54.5 [facility] [address] 41027- 9521 Jul, [place] [address] 37534- 8869 Jul, Hyperinsulinemia E16.1 ; Encounter for immunization Z23 ; Hypothyroid E03.9 ; Decreased renal function N28.9 and Muscle cramps R25.2 [place] [address] 04982- 0812 Jul, [place] [address] 25782- 5355 Jul, [place] [address] 57477- 7665 Jul, [place] [address] 22024- 1473 Jul, Major depressive disorder, recurrent, mild F33.0 [place] [id number] [place] [address] 43267- 3386 Jul, Acquired cyst of kidney N28.1 ; Acidosis E87.2 and Hyperkalemia E87.5 [place] [id number] [place] [address] 44354- 2128 Jul, Major depressive disorder, recurrent, mild F33.0 ; Attention -deficit hyperactivity disorder, predominantly inattentive type F90.0 and Generalized anxiety disorder F41.1 [facility] [id number] [place] [address] 42644- 8687 Jul, Low back pain M54.5 [facility] [address] 91195- 1926 Jun, Cough R05 ; Low back pain M54.5 and Pre-syncope R55 [facility] [id number] [place] [address] 45833- 5642 Jun, Low back pain M54.5 [facility] [address] [facility] [id number] [place] [address] [id number] Jun, Dental caries K02.9 [facility] [address] 58149- 1756 Jun, [facility] [id number] [place] [address] 78532- 6657 Jun, Major depressive disorder, recurrent, mild F33.0 ; Attention -deficit hyperactivity disorder, predominantly inattentive type F90.0 and Generalized anxiety disorder F41.1 [facility] [id number] [place] [address] 10054- 1868 May, Vertigo R42 ; Confusion R41.0 ; Weakness R53.1 and Vision changes H53.9 [facility] [id number] [place] [address] 96380- 1029 May, [facility] [id number] [place] [address] 10703- 4392 May, [facility] [id number] [place] [address] 96111- 8408 May, Low back pain M54.5 [facility] [id number] [place] [address] 37076- 5196 May, Major depressive disorder, recurrent, mild F33.0 ; Attention -deficit hyperactivity disorder, predominantly inattentive type F90.0 and Generalized anxiety disorder F41.1 [facility] [id number] [place] [address] 88596- 2691 May, [facility] [id number] [place] [address] 53065- 6789 May, Acute worsening of stage 3 chronic kidney disease N18.3 [place] [id number] [place] [address] 13971- 6751 Apr, [place] [address] 64026- 2141 Apr, Acute allergic rhinitis due to pollen, unspecified seasonality J30.1 ; Restless legs G25.81 and Low back pain M54.5 [place] [address] 78158- 9887 Apr, Primary osteoarthritis of both knees M17.0 [place] [address] 27529- 6013 Apr, Generalized anxiety disorder F41.1 [place] [address] 10372- 5157 Apr, Major depressive disorder, recurrent, mild F33.0 ; Attention -deficit hyperactivity disorder, predominantly inattentive type F90.0 and Generalized anxiety disorder F41.1 [place] [address] 38908- 6271 Apr, [place] [address] 48972- 4141 Mar, Major depressive disorder, recurrent episode, moderate F33.1 ; Generalized anxiety disorder F41.1 and ADHD, predominantly inattentive type F90.0 [facility] [id number] [place] [address] 56571 -8870 Mar, Abscess L02.91 [facility] [id number] [place] [address] 90644- 3585 Mar, Hyperinsulinemia E16.1 [facility] [address] 86895- 5552 Mar, Decreased renal function N28.9 [facility] [id number] [place] [address] [id number] Mar, Dental examination Z01.20 [facility] [address] 94824- 6463 Mar, Hyperinsulinemia E16.1 [facility] [address] [address]- 4506 Mar, Hyperinsulinemia E16.1 [facility] [address] [id number] 14 Mar, 2017 Dental examination Z01.20 and Dental caries K02.9 [facility] [id number] [place] [address] 31578- 7646 Mar, Chronic viral hepatitis B without delta-agent B18.1 ; Folic acid deficiency E53.8 ; Hyperinsulinemia E16.1 and Decreased renal function N28.9 [facility] [id number] [place] [address] 55054- 3031 Mar, Major depressive disorder, recurrent, mild F33.0 [place] [id number] [place] [address] 56671- 2342 Mar, [facility] [id number] [place] [address] 31340- 0459 Mar, Chronic hepatitis K73.9 ; Hyperinsulinemia E16.1 ; Localized edema R60.0 ; Illicit drug use F19.90 ; Vision changes H53.9 and Obesity due to excess calories, unspecified obesity severity E66.09 [place] [address] [place] [address] 26505- 5458 Jan, Major depressive disorder, recurrent, mild F33.0 [facility] [id number] [place] [address] 95870- 4132 Jan, Chronic viral hepatitis B without delta-agent B18.1 [facility] [address] [place] [address] 30855- 0235 Jan, [place] [id number] [place] [address] 25419- 0352 Jan, Weight gain R63.5 ; Hypothyroid E03.9 ; Hyperinsulinemia E16.1 ; Decreased renal function N28.9 and Chronic viral hepatitis B without delta-agent B18.1 [facility] [id number] [place] [address] 10867- 0366 December, Major depressive disorder, recurrent, mild F33.0 and Generalized anxiety disorder F41.1 [facility] [id number] [place] [address] 18789- 1374 December, Obesity due to excess calories, unspecified obesity severity E66.09 and Folic acid deficiency E53.8 [facility] [id number] [place] [address] 41395- 4471 December, Folic acid deficiency E53.8 [place] [address] 32196- 4034 December, Folic acid deficiency E53.8 [place] [id number] [place] [address] 19298- 3233 December, Obesity due to excess calories, unspecified obesity severity E66.09 [facility] [id number] [place] [address] 43487- 8191 December, [facility] [id number] [place] [address] 35729- 5938 December, Folic acid deficiency E53.8 [facility] [id number] [place] [address] [id number] December, Encounter for other administrative examinations Z02.89 [place] [id number] [place] [address] 87189- 6851 Dec, [facility] [id number] [place] [address] [id number] Dec, Dental caries K02.9 [place] [id number] [place] [address] 69476- 2268 Oct, Bone pain M89.8X9 [place] [id number] [place] [address] 37506- 4801 Oct, Hypothyroid E03.9 [facility] [id number] [address]- 0823 24 Oct, 2016 Hypothyroid E03.9 [facility] [id number] [place] [address] 90888- 0372 Oct, Breast cancer screening Z12.39 [facility] [address] [id number] 08 Oct, 2016 Dental examination Z01.20 [facility] [id number] [place] [address] 73946- 4653 Oct, [facility] [id number] [place] [address] 19374- 9257 Oct, Major depressive disorder, recurrent, mild F33.0 and Generalized anxiety disorder F41.1 [place] [id number] [place] [address] 40372- 5775 Oct, [facility] [id number] [place] [address] 98195- 1743 Oct, Hypothyroid E03.9 [facility] [id number] [place] [address] 38565- 9686 Sep, Hypothyroid E03.9 ; Chronic viral hepatitis B without delta- agent B18.1 and Folic acid deficiency E53.8 [place] [id number] [place] [address] 37243- 5082 Sep, Hypothyroidism, unspecified type E03.9 ; Elevated parathyroid hormone E34.9 and Chronic viral hepatitis B without delta-agent B18.1 [facility] [address] [place] [address] 33028- 0929 Sep, [facility] [id number] [place] [address] 02127- 5824 Sep, Elevated parathyroid hormone E34.9 [facility] [address] [place] [address] 33470- 2219 Sep, [facility] [id number] [place] [address] 64063- 2238 Sep, Chronic hepatitis K73.9 ; Bone pain M89.8X9 and Abnormal complete blood count R79.89 [facility] [id number] [place] [address] 83489- 8114 27 Aug, 2016 Major depressive disorder, recurrent, mild F33.0 [facility] [id number] [place] [address] 67115- 6276 Aug, Bone pain M89.8X9 [facility] [id number] [place] [address] 88576- 7274 Aug, [place] [address] 85860- 2122 Jul, Chronic viral hepatitis B without delta-agent B18.1 [place] [address] 32808- 4745 Jul, Hypothyroidism, unspecified type E03.9 [place] [id number] [place] [address] 80883- 0705 Jul, [place] [address] 02664- 8317 Jul, Chronic hepatitis K73.9 and Hypothyroid E03.9 [place] [id number] [place] [address] 57229- 3785 Jul, Low back pain M54.5 [place] [id number] [place] [address] 62703- 3556 Jun, Depression, major, recurrent, mild F33.0 and ADD (attention deficit disorder) F90.0 [facility] [id number] [place] [address] 79964- 8168 Jun, [facility] [id number] [place] [address] 17676- 7161 Jun, Low back pain M54.5 [facility] [address] 29141- 5943 Jun, Encounter for immunization Z23 ; Major depressive disorder, recurrent, mild F33.0 and Attention-deficit hyperactivity disorder, predominantly inattentive type F90.0 [facility] [id number] [place] [address] 55283- 9801 Jun, [facility] [id number] [place] [address] 42882- 5391 Jun, Low back pain M54.5 [facility] [id number] [place] [address] 89922- 5012 May, [facility] [address] 07876- 0588 May, [facility] [id number] [place] [address] 01128- 0592 May, Essential (primary) hypertension I10 [facility] [address] 56819- 6572 May, Low back pain M54.5 [facility] [id number] [place] [address] 92817- 2749 May, Low back pain M54.5 ; Chronic hepatitis K73.9 and Hypothyroid E03.9 [facility] [id number] [place] [address] 48539- 2113 May, Hypothyroidism, unspecified type E03.9 [facility] [id number] [place] [address] 02297- 1541 08 May, 2016 Low back pain M54.5 [facility] [id number] [place] [address] 33861- 3615 May, [facility] [id number] [place] [address] 04343- 5781 May, [facility] [id number] [place] [address] 78737- 0557 May, Major depressive disorder, recurrent, moderate F33.1 ; Generalized anxiety disorder F41.1 ; Insomnia G47.00 and ADD (attention deficit disorder) F90.0 [place] [id number] [place] [address] 82082- 2571 Apr, Low back pain M54.5 [facility] [id number] [place] [address] 55476- 6293 Apr, [facility] [address] 49148- 7087 Apr, Low back pain M54.5 [place] [address] 05480- 4314 Apr, Low back pain M54.5 ; Tooth pain K08.8 and Seasonal allergic rhinitis due to pollen J30.1 [place] [address] 37217- 2639 Apr, Low back pain M54.5 [place] [address] 64553- 8495 Apr, LGS[facility] Pap smear of vagina R87.622 [place] [address] 89164- 6696 Apr, Low back pain M54.5 [place] [id number] [place] [address] 33470- 3440 Mar, [place] [address] 78677- 3709 Mar, Low back pain M54.5 [place] [id number] [place] [address] 19118- 2368 Mar, Encounter for Papanicolaou smear for cervical cancer screening Z12.4 ; Encounter for routine gynecological examination Z01.419 and Breast cancer screening Z12.39 [place] [id number] [place] [address] 93604- 9688 18 Mar, 2016 Hypothyroidism, unspecified type E03.9 [place] [address] [place] [address]- 4420 Mar, Low back pain M54.5 ; Other chronic pain G89.29 ; Hypothyroid E03.9 and Hypothyroidism, unspecified type E03.9 [facility] [id number] [place] [address] 05851- 6183 Mar, Major depressive disorder, recurrent, moderate F33.1 and Attention-deficit hyperactivity disorder, predominantly inattentive type F90.0 [facility] [id number] [place] [address] 03677 -7264 Mar, Bronchitis J40 [facility] [id number] [place] [address] 43149- 9499 Jan, [facility] [id number] [place] [address] 45503- 9871 Jan, [facility] [id number] [place] [address] 74305- 8032 Jan, Insomnia G47.00 [facility] [id number] [place] [address] 76047- 0605 December, [facility] [id number] [place] [address] 80907- 6011 December, Major depressive disorder in partial remission F32.4 and Attention-deficit hyperactivity disorder, unspecified type F90.9 [facility] [id number] [place] [address] 26485- 0506 December, [facility] [id number] [place] [address] 61848- 2764 December, [facility] [id number] [place] [address] 41966- 2782 Dec, [facility] [id number] [place] [address] 20202- 7749 Dec, Major depressive disorder, recurrent episode, moderate 296.32 and Attention deficit disorder of childhood without mention of hyperactivity 314.00 [facility] [id number] [place] [address] 93710- 4974 Dec, Major depressive disorder, recurrent episode, mild 296.31 ; ADD (attention deficit disorder) F90.0 and Hyperlipidemia E78.5 [facility] [id number] [place] [address] 87557- 7766 Dec, Insomnia G47.00 [facility] [id number] [place] [address] 59296- 6630 Dec, Attention-deficit hyperactivity disorder, predominantly inattentive type F90.0 [facility] [id number] [place] [address] 85683- 5382 Oct, Restless legs syndrome G25.81 [place] [id number] [place] [address] 62940- 5159 Oct, Hypothyroidism, unspecified type E03.9 [place] [id number] [place] [address] 69586- 4030 Oct, [facility] [id number] [place] [address] 07605- 6387 Oct, [facility] [id number] [place] [address] 98345- 9667 Oct, Hypothyroid E03.9 and Chronic hepatitis K73.9 [facility] [id number] [place] [address] 31537- 8903 Oct, [facility] [id number] [place] [address] 21877- 6994 Oct, Restless legs syndrome G25.81 ; Chronic hepatitis K73.9 ; Hypertension I10 ; Hypothyroid E03.9 and Breast cancer screening Z12.39 [facility] [id number] [place] [address] 05236- 0819 Oct, [facility] [id number] [place] [address] 59331- 3481 Oct, [facility] [id number] [place] [address]- 2546 Oct, [facility] [address] [address]- 7218 Oct, [facility] [address] [address]- 9975 Oct, [facility] [address] [address]- 4567 Oct, [facility] [id number] [place] [address] 32459- 8994 Oct, [facility] [id number] [place] [address] 21237- 2027 Sep, [facility] [id number] [place] [address] 18323- 2786 Sep, Attention-deficit hyperactivity disorder, predominantly inattentive type F90.0 and Major depressive disorder in partial remission F32.4 [facility] [address] [address]- 8693 Sep, [facility] [id number] [place] [address] 41135- 8473 Aug, [facility] [address] [address]- 4928 Aug, [facility] [address] [address]- 2388 Aug, Major depressive disorder, recurrent, mild F33.0 ; Attention -deficit hyperactivity disorder, unspecified type F90.9 and Generalized anxiety disorder F41.1 [facility] [address] [address]- 8764 08 Aug, 2015 Chronic hepatitis K73.9 ; Primary osteoarthritis of both knees M17.0 and Neuralgia M79.2 [facility] [address], [place] [address]- 7233 Jul, [facility] [id number] [place] [address] 61959- 0684 Jul, [facility] [id number] [place] [address] 06616- 2447 Jul, [facility] [id number] [place] [address] 47105- 9294 Jul, [facility] [id number] [place] [address] 01587- 1716 Jun, [facility] [address] [address]- [address] Jun, Bronchitis J40 and Encounter for immunization Z23 [facility] [address] [address]- [address] 30 May, 2015 [facility] [id number] [place] [address] [phone] May, [facility] [address] [address]- [address] May, [facility] [id number] [place] [address] 23363- 7878 May, Hypokalemia 276.8 [facility] [id number] [place] [address] [phone]- [phone] 08 May, 2015 Major depressive disorder, recurrent episode, mild 296.31 ; Attention deficit disorder of childhood without mention of hyperactivity 314.00 and Generalized anxiety disorder 300.02 [facility] [id number] [place] [address] 09499- 4821 May, Hypertension 401.9 and Hypokalemia 276.8 [facility] [id number] [place] [address] [id number]- 2485 May, [facility] [id number] [place] [address] [phone]- 1874 Apr, [facility] [id number] [place] [address] [phone]- 2810 Apr, [facility] [id number] [id number] Apr, [facility] [id number] [address] Apr, [facility] [facility] [id number] [id number] [address] Mar, [facility] [id number] [place] [address]- 2758 Mar, [facility] [id number] [place] [address] 36519- 9889 Mar, [facility] [id number] [place] [address] 16631- 8603 Mar, [facility] [id number] [place] [address] 20875- 6463 Mar, Arthritis of both knees 716.96 ; Hepatitis B 070.30 ; Hypertension 401.9 ; Carpal tunnel syndrome 354.0 and Cubital tunnel syndrome 354.2 [facility] [id number], [place] [address] 3746 Mar, [facility] [id number] [place] [address] 79793- 1076 Mar, [facility] [id number], [place] [address] 0963 Mar, 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, chronic, without mention of hepatitis delta 070.32 ; Chronic hepatitis C without mention of hepatic coma 070.54 and Major depressive disorder, recurrent episode, moderate 296.32 [facility] [id number], [place] [address] 8580 Jan, [facility] [id number] [place] [address] 71613- 2337 Jan, Major depressive disorder, recurrent episode, mild 296.31 and Attention deficit disorder of childhood without mention of hyperactivity 314.00 [facility] [id number] [place] [address] 63415- 6445 Jan, [facility] [address] [facility] [id number], [place] [address] 2133 Jan, [facility] [address], [place] [address] 4125 December, Attention deficit disorder of childhood without mention of hyperactivity 314.00 ; Major depressive disorder, recurrent episode, mild 296.31 and Generalized anxiety disorder 300.02 [facility] [address] [facility] [id number], [place] [address]- 405[address] December, [facility] [address] [facility] [id number], [place] [address] 5304 Dec, [facility] [address] [id number] [address]- 7376 Dec, [facility] [address], [place] [address]- 6104 19 Oct, 2014 [facility] [address] [id number] [address]- 0519 19 Oct, 2014 [facility] [address] [id number] [address] 8316 18 Oct, 2014 [facility] [address] [id number] [address]- 3513 18 Oct, 2014 [facility] [address] [id number] [address]- 9963 18 Oct, 2014 [facility] [address] [id number] [address]- 5118 18 Oct, 2014 [facility] [address] [facility] [id number] 3195 16 Oct, 2014 [facility] [address] [facility] [id number] 7469 13 Oct, 2014 [facility] [address] [id number] 2679 13 Oct, 2014 [facility] [address] [id number] [place] [address]- 0042 12 Oct, 2014 [facility] [place] [facility] [address] [id number] [place] [address]- 6730 Oct, [facility] [place] [facility] [address] [id number] [place] [address]- 5029 Oct, [facility] [place] [facility] [address] [facility] [id number] [place] [address]- 1221 Oct, [facility] [place] [facility] [address] [facility] [id number] [place] [address]- 8402 Oct, [facility] [place] [facility] [address] [id number] [place] [address]- 7217 05 Oct, 2014 [facility] [place] [facility] [address] [facility] [id number] [place] [address]- 0239 Oct, [facility] [place] [facility] [address] [facility] [id number] [place] [address]- 4390 26 Oct, 2014 [facility] [place] [facility] [address] [facility] [id number] [place] [address]- 2172 25 Oct, 2014 [facility] [place] [facility] [address] [facility] [id number] [place] [address]- 1028 Oct, [facility] [place] [facility] [address] [facility] [id number] [place] [address]- 6282 18 Oct, 2014 [facility] [place] [facility] [address] [facility] [id number], [place] [address]- 2703 Oct, 2014 [facility] [place] [facility] [address] [facility] [id number] [place] [address]- 5018 17 Oct, 2014 [facility] [place] [facility] [address] [facility] [id number] [place] [address]- 9022 Oct, [facility] [place] [facility] [address] [facility] [id number] [place] [address]- 1489 11 Oct, 2014 [facility] [place] [facility] [address] [facility] [id number], [place] [address]- 5921 Oct, [facility] [place] [facility] [address] [id number] [place] [address]- 4331 Oct, [facility] [place] [facility] [address] [id number] [place] [address]- 4497 Oct, [facility] [place] [facility] [address] [id number] [place] [address]- 2724 Oct, [facility] [place] [facility] [address] [id number] [place] [address]- 6673 Sep, [facility] [place] [facility] [address] [id number] [place] [address]- 3679 Sep, [facility] [place] [facility] [address] [id number] [place] [address]- 1669 Sep, [facility] [place] [facility] [address] [id number] [place] [address]- 4899 Sep, [facility] [place] [facility] [address] [id number] [place] [address]- 4384 Sep, [facility] [place] [facility] [address] [id number] [place] [address]- 8078 Sep, [facility] [place] [facility] [address] [id number] [place] [address]- 6234 Sep, [facility] [place] [facility] [address] [id number] [place] [address]- 6028 Sep, [facility] [place] [facility] [address] [id number], [place] [address]- 0340 Sep, [facility] [place] [facility] [address] [id number] [place] [address]- 7899 Sep, [facility] [place] [facility] [address] [id number] [place] [address]- 5870 Sep, [facility] [place] [facility] [address] [id number], [place] [address]- 3891 Sep, [facility] [place] [facility] [address] [id number] [place] [address]- 6340 Sep, [facility] [place] [facility] [address] [id number] [place] [address]- 9248 Sep, [facility] [place] [facility] [address] [id number] [place] [address]- 9076 Sep, [facility] [place] [facility] [address] [id number] [place] [address]- 8829 Sep, [facility] [place] [facility] [address] [id number] [place] [address]- 7837 Aug, [facility] [place] [facility] [address] [id number] [place] [address]- 0591 Aug, [facility] [place] [facility] [address] [id number] [place] [address]- 8785 Aug, [facility] [place] [facility] [address] [id number] [place] [address]- 8345 Aug, [facility] [place] [facility] [address] [id number] [place] [address]- 2271 Aug, [facility] [place] [facility] [address] [id number] [place] [address]- 8096 Aug, [facility] [place] [facility] [address] [id number] [place] [address]- 6775 Aug, [facility] [place] [facility] [address] [id number] [place] [address]- 2450 Aug, [facility] [place] [facility] [address] [id number] [place] [address]- 2102 Aug, [facility] [place] [facility] [address] [id number] [place] [address]- 6914 Aug, [facility] [place] [facility] [address] [id number] [place] [address]- 4919 18 Aug, 2014 [facility] [place] [facility] [address] [id number] [place] [address]- 5572 16 Aug, 2014 [facility] [place] [facility] [address] [id number] [place] [address]- 5156 16 Aug, 2014 [facility] [place] [facility] [address] [id number] [place] [address]- 0616 15 Aug, 2014 [facility] [place] [facility] [address] [id number] [place] 2062 15 Aug, 2014 [facility] [place] [facility] [address] [id number] [place] [address]- 3573 Aug, [facility] [place] [facility] [address] [id number] [place] [address]- 4547 Aug, [facility] [place] [facility] [address] [id number] [place] [address]- 8527 Aug, [facility] [place] [facility] [address] [id number] [place] [address]- 7621 Aug, [facility] [place] [facility] [address] [id number] [place] [address]- 7063 04 Aug, 2014 [facility] [place] [facility] [address] [id number] [place] [address]- 2589 Aug, [facility] [place] [facility] [address] [id number] [place] [address]- 0910 04 Aug, 2014 [facility] [place] [facility] [address] [id number] [place] [address]- 4612 Aug, [facility] [place] [facility] [address] [id number], [place] [address]- 0695 04 Aug, 2014 [facility] [place] [facility] [address] [id number] [place] [address]- 0131 Aug, [facility] [place] [facility] [address] [id number] [place] [address]- 1247 Jul, [facility] [place] [facility] [address] [id number] [place] [address]- 4775 Jul, [facility] [place] [facility] [address] [id number] [place] [address]- 9425 Jul, [facility] [place] [facility] [address] [id number] [place] [address]- 0986 Jul, [facility] [place] [facility] [address] [id number] [place] [address]- 1635 Jul, [facility] [place] [facility] [address] [id number] [place] [address]- 9185 Jul, [facility] [place] [facility] [address] [id number] [place] [address]- 1633 Jun, [facility] [place] [facility] [address] [id number] [place] [address]- 2616 Jun, [facility] [place] [facility] [address] [id number] [place] [address]- 7504 Jun, [facility] [place] [facility] [address] [id number] [place] [address]- 6487 Jun, [facility] [place] [facility] [address] [id number] [place] [address]- 5964 Jun, [facility] [place] [facility] [address] [id number] [place] [address]- 5354 Jun, [facility] [place] [facility] [address] [facility] [id number] [place] [address]- 4385 Jun, [facility] [place] [facility] [address] [id number] [place] [address]- 1818 Jun, [facility] [place] [facility] [address] [id number] [place] [address]- 8806 16 May, 2014 [facility] [place] [facility] [address] [id number] [place] [address]- 0729 16 May, 2014 [facility] [place] [facility] [address] [id number] [place] [address]- 3790 15 May, 2014 [facility] [place] [facility] [address] [id number] [place] [address]- 3622 May, [facility] [place] [facility] [address] [id number] [place] [address]- 7872 May, [facility] [place] [facility] [address] [id number] [place] [address]- 7008 May, [facility] [place] [facility] [address] [id number] [place] [address]- 1795 May, [facility] [place] [facility] [address] [id number] [place] [address]- 6956 May, [facility] [place] [facility] [address] [id number] [place] [address]- 4882 Apr, [facility] [place] [facility] [address] [id number] [place] [address]- 4857 Apr, [facility] [place] [facility] [address] [id number] [place] [address]- 6535 Apr, [facility] [place] [facility] [address] [id number] [place] [address]- 0120 Apr, [facility] [place] [facility] [address] [id number] [place] [address]- 2869 Apr, [facility] [place] [facility] [address] [id number] [place] [address]- 3830 Apr, [facility] [place] [facility] [address] [id number] [place] [address]- 6118 Apr, [facility] [place] [facility] [address] [id number] [place] [address]- 7755 Apr, [facility] [place] [facility] [address] [id number] [place] [address]- 6368 Apr, [facility] [place] [facility] [address] [id number] [place] [address]- 6387 Apr, [facility] [place] [facility] [address] [id number] [place] [address]- 3421 Apr, [facility] [place] [facility] [address] [id number] [place] [address]- 9207 Apr, [facility] [place] [facility] [address] [id number] [place] 3702 Apr, [facility] [place] [facility] [address] [id number] [place] [address]- 4730 Mar, [facility] [place] [facility] [address] [id number] [place] [address]- 4185 Mar, [facility] [place] [facility] [address] [id number] [place] [address]- 2406 Mar, [facility] [place] [facility] [address] [id number] [place] [address]- 5845 Mar, [facility] [place] [facility] [address] [id number] [place] [address]- 0734 Jan, [facility] [place] [facility] [address] [id number] [place] [address]- 1098 Jan, [facility] [place] [facility] [address] [id number] [place] [address]- 6009 December, [facility] [place] [facility] [address] [id number] [place] [address]- 3341 December, [facility] [place] [facility] [address] [id number] [place] [address]- 2155 December, [facility] [place] [facility] [address] [id number] [place] [address]- 6771 December, [facility] [place] [facility] [address] [id number] [place] [address]- 9168 December, [facility] [place] [facility] [address] [id number] [place] 0372 December, [facility] [place] [facility] [address] [id number] [place] 4539 December, [facility] [place] [facility] [address] [id number] [place] 3977 December, [facility] [place] [facility] [address] [id number] [place] [address]- 4973 Dec, [facility] [place] [facility] [address] [id number] [place] [address]- 8493 Dec, [facility] [place] [facility] [address] [id number] [place] [address]- 6323 Dec, [facility] [place] [facility] [address] [id number] [place] [address]- 9010 Dec, [facility] [place] [facility] [address] [id number] [place] [address]- 6635 Oct, [facility] [place] [facility] [address] [id number] [place] [address]- 6671 Oct, [facility] [place] [facility] [address] [id number] [place] [address]- 0594 Oct, [facility] [place] [facility] [address] [id number] [place] [address]- 3335 Oct, [facility] [place] [facility] [address] [id number] [place] [address]- 4473 Oct, [facility] [place] [facility] [address] [id number] [place] [address]- 8016 Oct, [facility] [place] [facility] [address] [id number] [place] [address]- 2208 Oct, [facility] [place] [facility] [address] [id number] [place] [address]- 7899 Oct, [facility] [place] [facility] [address] [id number] [place] [address]- 4436 Oct, [facility] [place] [facility] [address] [id number] [place] 97[address] Oct, [facility] [place] [facility] [address] [id number] [place] 3206 Oct, [facility] [place] [facility] [address] [id number] [place] [address]- 2580 Oct, [facility] [place] [facility] [address] [id number] [place] [address]- 2257 Oct, [facility] [place] [facility] [address] [id number] [place] [address]- 7610 Oct, [facility] [place] [facility] [address] [facility] [id number] [place] [address]- 3629 Oct, 2013 [facility] [place] [facility] [address] [id number] [place] [address]- 1214 Oct, 2013 [facility] [place] [facility] [address] [id number] [place] [address]- 3733 Oct, [facility] [place] [facility] [address] [facility] [id number] [place] [address]- 0933 Oct, [facility] [place] [facility] [address] [facility] [id number] [place] [address]- 5908 Oct, [facility] [place] [facility] [address] [facility] [id number] [place] [address]- 5709 Oct, [facility] [place] [facility] [address] [facility] [id number] [place] [address]- 4012 Oct, [facility] [place] [facility] [address] [facility] [id number] [place] [address]- 9107 Oct, [facility] [place] [facility] [address] [facility] [id number] [place] [address]- 2426 Sep, [facility] [place] [facility] [address] [facility] [id number] [place] [address]- 2271 Sep, [facility] [place] [facility] [address] [facility] [id number] [place] [address]- 0020 Sep, [facility] [place] [facility] [address] [facility] [id number] [place] [address]- 6314 Sep, [facility] [place] [facility] [address] [facility] [id number] [place] [address]- 2521 Aug, [facility] [place] [facility] [address] [id number] [place] [address]- 3765 Aug, [facility] [address] [id number] [place] [address]- 4627 Aug, [facility] [place] [facility] [address] [id number] [place] 8439 Aug, [facility] [place] [facility] [address] [id number] [place] [address]- 7678 Aug, [facility] [place] [facility] [address] [id number] [place] [address]- 7437 Aug, [facility] [place] [facility] [address] [id number] [place] [address]- 0782 Aug, [facility] [address] [id number] [place] 2632 Aug, [facility] [place] [facility] [address] [id number] [place] [address]- 5347 Aug, [facility] [place] [facility] [address] [id number] [place] [address]- 4712 Jul, [facility] [place] [facility] [address] [id number] [place] [address]- 9089 Jul, [facility] [place] [facility] [address] [id number] [place] [address]- 2858 Jul, [facility] [place] [facility] [address] [id number] [place] [address]- 7129 Jul, [facility] [place] [facility] [address] [id number] [place] [address]- 0987 Jul, [facility] [place] [facility] [address] [id number] [place] [address]- 7113 Jul, [facility] [place] [facility] [address] [id number] [place] [address]- 6428 Jul, [facility] [place] [facility] [address] [id number], [place] [address]- 0855 Jul, [facility] [place] [facility] [address] [id number] [place] [address]- 8970 Jun, [facility] [place] [facility] [address] [id number] [place] [address]- 8705 Jun, [facility] [place] [facility] [address] [id number] [place] [address]- 8297 Jun, [facility] [place] [facility] [address] [id number] [place] [address]- 1820 Jun, [facility] [place] [facility] [address] [id number] [place] [address]- 6143 Jun, [facility] [place] [facility] [address] [id number] [place] [address]- 8567 Jun, [facility] [place] [facility] [address] [id number] [place] [address] Jun, [facility] [place] [facility] [address] [id number], [place] [address] Jun, [facility] [place] [facility] [address] [id number], [place] [address] 30 May, 2013 [facility] [place] [facility] [address] [id number] [place] [address] 26 May, 2013 [facility] [place] [facility] [address] [id number], [place] [address] 23 May, 2013 [facility] [place] [facility] [address] [id number], [place] [address] 19 May, 2013 [facility] [place] [facility] [address] [id number] [place] [address] 12 May, 2013 [facility] [place] [facility] [address] [id number], [place] [address] 11 May, 2013 [facility] [place] [facility] [address] [id number], [place] [address] Apr, [facility] [place] [facility] [address] [id number] [place] [address] Apr, [facility] [address] [id number] [place] [address] Apr, [facility] [place] [facility] [address] [id number] [place] [address] Apr, [facility] [address] [id number] [place] [address]- [address] Apr, [facility] [place] [facility] [address] [id number] [place] [address]- [address] Apr, [facility] [address] [id number] [place] [address]- [address] Apr, [facility] [address] [id number] [place] [address]- [address] Mar, [facility] [place] [facility] [address] [id number] [place] [address] Mar, [facility] [address] [id number] [place] [address]- [address] Mar, [facility] [place] [facility] [address] [id number] [place] [address]- [address]14 Mar, [facility] [address] [id number] [place] [address]- [address] Mar, [facility] [place] [facility] [address] [id number] [place] [address]- 64[address] Mar, [facility] [place] [facility] [address] [id number] [place] [address]- [address] Mar, [facility] [place] [facility] [address] [id number] [place] [address]- [address] Jan, [facility] [place] [facility] [address] [id number] [place] [address]- [address] Jan, [facility] [place] [facility] [address] [id number] [place] [address]- [address]39 Jan, [facility] [address] [id number] [place] [address]- [address] Jan, [facility] [place] [facility] [address] [id number] [place] [address]- 49[address] Jan, [facility] [place] [facility] [address] [id number] [place] [address]- [address]31 Jan, [facility] [place] [facility] [address] [id number] [place] [address]- [address] Jan, [facility] [address] [id number] [place] [address]- [address] December, [facility] [place] [facility] [address] [id number] [place] [address]- 6[address] December, [facility] [address] [id number] [place] [address]- 289[address] December, [facility] [address] [id number] [place] [address]- 8861 December, [facility] [place] [facility] [address] [id number] [place] [address]- [address] Dec, [facility] [place] [facility] [address] [id number] [place] [address]- [address] Dec, [facility] [place] [facility] [address] [id number] [place] [address]- [address] Dec, [facility] [place] [facility] [address] [id number], [place] [address]- [address] 29 Oct, 2012 [facility] [place] [facility] [address] [id number] [place] [address]- [address]35 Oct, [facility] [place] [facility] [address] [id number] [place] [address]- [address] Oct, [facility] [place] [facility] [address] [id number], [place] [address]- [address] Oct, [facility] [place] [facility] [address] [id number], [place] [address]- [address] Oct, [facility] [address] [id number] [place] [address]- [address] Oct, [facility] [address] [id number] [place] [address]- [address] Oct, [facility] [address] [id number] [place] [address]- [address] Oct, [facility] [address] [id number] [place] [address]- 5689 Oct, [facility] [address] [id number] [place] [address]- [address] 08 Oct, 2012 [facility] [address] [id number] [place] [address]- [address] Oct, [facility] [address] [id number] [place] [address] 288[address] Sep, [facility] [address] [id number] [place] [address]- 4081 Sep, [facility] [address] [id number] [place] [address]- [address] Sep, [facility] [address] [id number] [place] [address]- 8529 Aug, [facility] [address] [id number] [place] [address]756 Aug, [facility] [address] [id number] [place] [address]- 1146 Aug, [facility] [address] [id number] [place] [address]- 67[address] Aug, [facility] [place] [facility] [address] [id number] [place] [address] Jul, [facility] [address] [id number], [place] [address] Jul, [facility] [place] [facility] [address] [id number] [place] [address]- 41[address] Jul, [facility] [place] [facility] [address] [id number] [place] [address]- [address]70 Jul, [facility] [place] [facility] [address] [id number] [place] [address]- 27[address] Jul, [facility] [place] [facility] [address] [id number] [place] [address]- 6024 Jul, [facility] [place] [facility] [address] [id number] [place] [address]- [address]136 Jul, [facility] [place] [facility] [address] [id number] [place] [address]- 76[address] Jul, [facility] [place] [facility] [address] [id number] [place] [address]- 7974 Jun, [facility] [place] [facility] [address] [id number] [place] [address] Jun, [facility] [place] [facility] [address] [id number] [place] [address] Jun, [facility] [place] [facility] [address] [id number] [place] [address] Jun, [facility] [place] [facility] [address] [facility] [id number] [place] [address] Jun, [facility] [place] [facility] [address] [id number] [place] [address] 26 May, 2012 [facility] [place] [facility] [address] [id number] [place] [address] 20 Sep2011 [facility] [place] [facility] [address] [id number] [place] [address] 18 May, 2012 [facility] [place] [facility] [address] [id number] [place] [address] 09 May, 2012 [facility] [place] [facility] [address] [id number] [place] [address] May, [facility] [place] [facility] [address] [id number] [place] [address] Apr, [facility] [place] [facility] [address] [id number] [place] [address] Apr, [facility] [place] [facility] [address] [id number] [place] [address] Apr, [facility] [place] [facility] [address] [id number] [place] [address] Apr, [facility] [place] [facility] [address] [id number] [place] [address] Apr, [facility] [place] [facility] [address] [id number] [place] [address] Apr, [facility] [place] [facility] [address] [id number] [place] [address]65 Apr, [facility] [place] [facility] [address] [id number] [place] [address] 114[address] Mar, [facility] [place] [facility] [address] [id number] [place] [address] Mar, [facility] [place] [facility] [address] [id number] [place] [address] 2001 Mar, [facility] [place] [facility] [address] [id number] [place] [address] Mar, [facility] [place] [facility] [address] [id number] [place] [address] Jan, [facility] [place] [facility] [address] [id number] [place] [address] Jan, [facility] [place] [facility] [address] [id number] [place] [address] 49[address] Jan, [facility] [place] [facility] [address] [id number] [place] [address] Jan, [facility] [place] [facility] [address] [id number] [place] [address] Jan, [facility] [address] [id number] [place] [address] Jan, [facility] [address] [id number] [place] [address] December, [facility] [address] [id number] [place] [address] December, [facility] [address] [id number] [place] [address] 80[address] December, [facility] [address] [id number] [place] [address] December, [facility] [address] [id number] [place] [address] Dec, [facility] [address] [id number] [place] [address]- 4[address] Dec, [facility] [address] [id number] [place] [address] Oct, [facility] [address] [id number] [place] [address] Oct, [facility] [address] [id number] [place] [address] Oct, [facility] [address] [id number] [place] [address] 16 Nov, 2011 [facility] [address] [id number] [place] [address] Oct, [facility] [place] [facility] [address] [id number] [place] [address]686 Oct, [facility] [address] [id number] [place] [address]46 Oct, [facility] [address] [id number] [place] [address] Oct, [facility] [address] [id number] [place] [address] Oct, [facility] [place] [facility] [address] [id number] [place] [address]- [address]86 Oct, [facility] [address] [id number] [place] [address] Oct, [facility] [address] [id number] [place] [address] Sep, [facility] [address] [id number] [place] [address] Sep, [facility] [address] [id number] [place] [address]- [address]296 Sep, [facility] [address] [id number] [place] [address]- 7036 Sep, [facility] [address] [id number] [place] [address] Sep, [facility] [address] [id number] [place] [address] 3810 Sep, [facility] [address] [id number], [place] [address] Sep, [facility] [address] [id number] [place] [address] 3516 Sep, [facility] [place] [facility] [address] [id number], [place] [address] Aug, [facility] [place] [facility] [address] [id number] [place] [address]- 1586 Aug, [facility] [place] [facility] [address] [id number] [place] [address]- 1546 Aug, [facility] [place] [facility] [address] [id number] [place] [address] 8596 Jul, [facility] [place] [facility] [address] [id number] [place] [address] 3960 28 Jul, 2011 [facility] [place] [facility] [address] [id number] [place] [address] 33[address] 18 Jul, 2011 [facility] [place] [facility] [address] [id number] [place] [address] 3012 17 Jul, 2011 [facility] [place] [facility] [address] [id number] [place] [address]- 2951 08 Jul, 2011 [facility] [place] [facility] [address] [id number] [place] [address]- [address] 02 Jul, 2011 [facility] [place] [facility] [address] [id number] [place] [address]204 31 Jun, 2011 [facility] [place] [facility] [address] [id number] [place] [address]- 3516 20 Jun, 2011 [facility] [place] [facility] [address] [id number] [place] [address] 9678 Mar, [facility] [place] [facility] [address] [id number] [place] [address]- 5365 14 Dec, 2010 [facility] [place] [facility] [address] [id number] [place] [address]- 7265 14 Oct, 2010 [facility] [place] [facility] [address] [facility] [id number] [place] [address]- 1044 Aug, [facility] [place] [facility] [address] [id number] [place] [address]- 3339 30 Jul, 2010 [facility] [place] [facility] [address] [id number] [place] [address]- 1408 Jul, [facility] [place] [facility] [address] [id number] [place] [address]- 4045 10 Jul, 2010 [facility] [place] [facility] [address] [id number] [place] [address]- 8814 09 Jul, 2010 [facility] [place] [facility] [address] [facility] [id number] [place] [address]- 7174 08 Jul, 2010 [facility] [place] [facility] [id number], [place] [address] Aug, [facility] [id number], [place] [address] 1396 Aug, [facility] [id number], [place] [address] Aug, [facility] [id number], [place] [address] 9314 Aug, [facility] [id number], [place] [address] Jul, [facility] [id number] [place] [address] Jul, [facility] [id number], [place] [address] 9472 Jul, [facility] [id number], [place] [address]279 Jul, [facility] [id number], [place] [address] Jun, [facility] [id number], [place] [address] 7914 Jun, IMMUNIZATIONS No Known Immunizations SOCIAL HISTORY Never Assessed REASON FOR VISIT Controlled Med Refill 09/02/17 PLAN OF CARE VITAL SIGNS MEDICATIONS Medication [...] past psychiatric hospitalization. Hospitalization History [facility]- High BP 09/27/2017
--- OUTSIDE RECORDS SUMMARY | 2018-03-17 11:34 | XMS REPORT ---
Author Author 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 [facility] Address [address] [place] [address] Care Team Providers Care Stamp Collector Name Role Phone 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 Unavailable PROBLEMS Type Condition ICD9-CM Code DZG40-RX Code Onset Dates Condition Status SNOMED Code Problem Hyperinsulinemia E16.1 Active 96722951 Problem Attention-deficit hyperactivity disorder, predominantly inattentive type F90.0 Active 04564722 Problem Obstructive sleep apnea G47.33 Active 03412255 Problem Primary insomnia F51.01 Active 2954116 Problem Neuralgia M79.2 Active 78179023 Problem Cannabis use disorder, mild, abuse F12.10 Active 80631848 Problem Folic acid deficiency E53.8 Active 534977080 Problem Restless legs G25.81 Active 77664612 Problem Major depressive disorder, recurrent, mild F33.0 Active 13724636 Problem Generalized anxiety disorder F41.1 Active 65882102 Problem Major depressive disorder, recurrent episode, moderate F33.1 Active 463900301 Problem Hypertension I10 Active 24827027 Problem Hyperlipidemia E78.5 Active 93803073 Problem Primary osteoarthritis of both knees M17.0 Active 938573013 Problem Chronic hepatitis K73.9 Active 28376339 Problem Low back pain M54.5 Active 610915021 Problem Chronic viral hepatitis B without delta-agent B18.1 Active 832841095 Problem Insomnia G47.00 Active 869778570 Problem Hypothyroid E03.9 Active 08536510 Problem Depression, major, recurrent, mild F33.0 Active 788340121 Problem Obesity due to excess calories, unspecified obesity severity E66.09 Active 621963223 ALLERGIES No Information ENCOUNTERS Encounter Location Date Diagnosis [facility] [address] [facility] [id number] [address] December, [facility] [address] [facility] [id number], [place] [address] Dec, [facility] [id number] [place] [address] 42145- 9161 Oct, [facility] [address] 30805- [address]759 Oct, Syncope, unspecified syncope type R55 ; Primary insomnia F51.01 ; Dry mouth R68.2 and Cannabis use disorder, mild, abuse F12.10 [facility] [address] 70616- 7334 Oct, [facility] [id number] [place] [address] 75182- 4211 Sep, [facility] [address] 0[address]60- 7422 Sep, [facility] [address] 82288- 6490 Sep, [facility] [address] [id number] Sep, Dental examination Z01.20 [facility] [id number] [place] [address] 04046- 5865 Sep, Dental examination Z01.20 [facility] [id number] [place] [address] 12770- 8812 Sep, Sinus congestion R09.81 ; Mouth sores K13.79 ; Low back pain M54.5 and Mouth swelling R22.0 [facility] [id number] [place] [address] 00916- 4572 Aug, Low back pain M54.5 [facility] [id number] [place] [address] 74779- 2664 Aug, Low back pain M54.5 [facility] [id number] [place] [address] 40281- 8968 Jul, [facility] [id number] [place] [address] 18345- 1716 Jul, Hyperinsulinemia E16.1 ; Encounter for immunization Z23 ; Hypothyroid E03.9 ; Decreased renal function N28.9 and Muscle cramps R25.2 [facility] [address] 72750- 7742 Jul, [facility] [address] 58572- 1252 Jul, [facility] [address] 41670- 5581 Jul, [facility] [address] 73296- 4333 Jul, Major depressive disorder, recurrent, mild F33.0 [facility] [address] 99531- 3528 Jul, Acquired cyst of kidney N28.1 ; Acidosis E87.2 and Hyperkalemia E87.5 [facility] [address] 44096- 4612 Jul, Major depressive disorder, recurrent, mild F33.0 ; Attention -deficit hyperactivity disorder, predominantly inattentive type F90.0 and Generalized anxiety disorder F41.1 [facility] [address] 81954- 9657 Jul, Low back pain M54.5 [facility] [address] [place] [address] 13899- 0301 Jun, Cough R05 ; Low back pain M54.5 and Pre-syncope R55 [facility] [address] 03388- 2283 Jun, Low back pain M54.5 [facility] [address] [id number] Jun, Dental caries K02.9 [facility] [address] 74951- 2922 Jun, [facility] [id number] [place] [address] 40509- 3164 Jun, Major depressive disorder, recurrent, mild F33.0 ; Attention -deficit hyperactivity disorder, predominantly inattentive type F90.0 and Generalized anxiety disorder F41.1 [facility] [id number] [place] [address] 26810- 7501 May, Vertigo R42 ; Confusion R41.0 ; Weakness R53.1 and Vision changes H53.9 [facility] [id number] [place] [address] 63765- 3299 May, [facility] [address] 31259- 2152 May, [facility] [id number] [place] [address] 35031- 2276 May, Low back pain M54.5 [facility] [address] 01005- 0963 05 May, 2017 Major depressive disorder, recurrent, mild F33.0 ; Attention -deficit hyperactivity disorder, predominantly inattentive type F90.0 and Generalized anxiety disorder F41.1 [facility] [id number] [place] [address] 18392- 3321 May, [facility] [id number] [place] [address] 93991- 4132 May, Acute worsening of stage 3 chronic kidney disease N18.3 [facility] [id number] [place] [address] 18082- 0798 Apr, [facility] [id number] [place] [address] 08458- 7927 Apr, Acute allergic rhinitis due to pollen, unspecified seasonality J30.1 ; Restless legs G25.81 and Low back pain M54.5 [facility] [id number] [place] [address] 13767- 1443 Apr, Primary osteoarthritis of both knees M17.0 [facility] [id number] [place] [address] 79221- 1957 Apr, Generalized anxiety disorder F41.1 [facility] [id number] [place] [address] Apr, Major depressive disorder, recurrent, mild F33.0 ; Attention -deficit hyperactivity disorder, predominantly inattentive type F90.0 and Generalized anxiety disorder F41.1 [facility] [id number] [place] [address] 41926- 8975 Apr, [facility] [id number] [place] [address] 74096- 5978 Mar, Major depressive disorder, recurrent episode, moderate F33.1 ; Generalized anxiety disorder F41.1 and ADHD, predominantly inattentive type F90.[address] [facility] [id number] [place] [address] 59799 -9470 Mar, Abscess L02.91 [facility] [id number] [place] [address] 44284- 3320 Mar, Hyperinsulinemia E16.1 [facility] [address] 25632- 5207 Mar, Decreased renal function N28.9 [facility] [id number] [place] [address] [id number] Mar, Dental examination Z01.20 [facility] [id number] [place] [address] 49225- 0147 Mar, Hyperinsulinemia E16.1 [facility] [id number] [place] [address] 01348- 8527 Mar, Hyperinsulinemia E16.1 [facility] [address] [id number] Mar, Dental examination Z01.20 and Dental caries K02.9 [facility] [id number] [place] [address] 77446- 2472 Mar, Chronic viral hepatitis B without delta-agent B18.1 ; Folic acid deficiency E53.8 ; Hyperinsulinemia E16.1 and Decreased renal function N28.9 [facility] [id number] [place] [address] 81979- 5001 Mar, Major depressive disorder, recurrent, mild F33.0 [facility] [id number] [place] [address] 04793- 3181 Mar, [facility] [id number] [place] [address] 85754- 9797 Mar, Chronic hepatitis K73.9 ; Hyperinsulinemia E16.1 ; Localized edema R60.0 ; Illicit drug use F19.90 ; Vision changes H53.9 and Obesity due to excess calories, unspecified obesity severity E66.09 [facility] [id number] [place] [address] 75709- 0669 13 Jan, 2017 Major depressive disorder, recurrent, mild F33.0 [facility] [id number] [place] [address] 98977- 0357 Jan, Chronic viral hepatitis B without delta-agent B18.1 [facility] [id number] [place] [address] 60492- 8298 Jan, [facility] [id number] [place] [address] 59809- 6799 Jan, Weight gain R63.5 ; Hypothyroid E03.9 ; Hyperinsulinemia E16.1 ; Decreased renal function N28.9 and Chronic viral hepatitis B without delta-agent B18.1 [facility] [id number] [place] [address] 52617- 6540 December, Major depressive disorder, recurrent, mild F33.0 and Generalized anxiety disorder F41.1 [facility] [id number] [place] [address] 19345- 2670 December, Obesity due to excess calories, unspecified obesity severity E66.09 and Folic acid deficiency E53.8 [facility] [id number] [place] [address] 05900- 9956 December, Folic acid deficiency E53.8 [facility] [id number] [address] 1932 December, Folic acid deficiency E53.8 [facility] [id number] [place] [address] 35754- 2140 December, Obesity due to excess calories, unspecified obesity severity E66.09 [facility] [id number] [place] [address] 13029- 0384 December, [facility] [id number] [place] [address] 84644- 5952 December, Folic acid deficiency E53.8 [facility] [id number] [place] [address] [id number] December, Encounter for other administrative examinations Z02.89 [facility] [id number] [place] [address] 37881- 0959 Dec, [facility] [id number] [place] [address] [id number] Dec, Dental caries K02.9 [facility] [id number] [place] [address] 87536- 0827 Oct, Bone pain M89.8X9 [facility] [id number] [place] [address] 82929- 3058 Oct, Hypothyroid E03.9 [facility] [id number] [place] [address] 58197- 3514 24 Oct, 2016 Hypothyroid E03.9 [facility] [id number] [place] [address] 16760- 0609 13 Oct, 2016 Breast cancer screening Z12.39 [facility] [id number] [place] [address] [id number] 08 Oct, 2016 Dental examination Z01.20 [facility] [id number] [place] [address] 12210- 0571 Oct, [facility] [id number] [place] [address] 65127- 5554 Oct, Major depressive disorder, recurrent, mild F33.0 and Generalized anxiety disorder F41.1 [facility] [id number] [place] [address] 97651- 2072 Oct, [facility] [id number] [place] [address] 76852- 1483 Oct, Hypothyroid E03.9 [facility] [id number] [place] [address] 63153- 1123 Sep, Hypothyroid E03.9 ; Chronic viral hepatitis B without delta- agent B18.1 and Folic acid deficiency E53.8 [facility] [id number] [place] [address] 09358- 6353 Sep, Hypothyroidism, unspecified type E03.9 ; Elevated parathyroid hormone E34.9 and Chronic viral hepatitis B without delta-agent B18.1 [facility] [id number] [place] [address] 73492- 1492 Sep, [facility] [id number] [place] [address] 77236- 6877 Sep, Elevated parathyroid hormone E34.9 [facility] [id number] [place] [address] 06994- 1171 Sep, [facility] [id number] [place] [address] 71140- 2355 Sep, Chronic hepatitis K73.9 ; Bone pain M89.8X9 and Abnormal complete blood count R79.89 [facility] [id number] [place] [address] 14283- 4033 Aug, Major depressive disorder, recurrent, mild F33.0 [facility] [id number] [place] [address] 38211- 3282 15 Aug, 2016 Bone pain M89.8X9 [facility] [id number] [place] [address] 26687- 0962 Aug, [facility] [address] 45674- 3439 Jul, Chronic viral hepatitis B without delta-agent B18.1 [facility] [address] 49970- 7937 Jul, Hypothyroidism, unspecified type E03.9 [facility] [address] 42786- 4602 Jul, [facility] [address] 23738- 2818 Jul, Chronic hepatitis K73.9 and Hypothyroid E03.9 [facility] [address] 52696- 5616 Jul, Low back pain M54.5 [facility] [address] 62709- 8493 Jun, Depression, major, recurrent, mild F33.0 and ADD (attention deficit disorder) F90.0 [facility] [address] 87914- 7868 Jun, [facility] [address] 69787- 1581 Jun, Low back pain M54.5 [facility] [address] 02810- 0033 Jun, Encounter for immunization Z23 ; Major depressive disorder, recurrent, mild F33.0 and Attention-deficit hyperactivity disorder, predominantly inattentive type F90.0 [facility] [address] 49860- 1144 Jun, [facility] [address] 87197- 1689 Jun, Low back pain M54.5 [facility] [address] 51089- 3088 May, 2015 [facility] [id number] [place] [address] 52898- 8911 29 May, 2015 [facility] [id number] [place] [address] 39766- 5551 29 May, 2015 Essential (primary) hypertension I10 [facility] [id number] [place] [address] 78962- 3816 19 May, 2015 Low back pain M54.5 [facility] [id number] [place] [address] 80946- 2248 12 May, 2016 Low back pain M54.5 ; Chronic hepatitis K73.9 and Hypothyroid E03.9 [facility] [id number] [place] [address] 44167- 4360 09 May, 2016 Hypothyroidism, unspecified type E03.9 [facility] [id number] [place] [address] 10722- 7996 08 May, 2015 Low back pain M54.5 [facility] [id number] [place] [address] 53360- 1909 07 May, 2016 [facility] [id number] [place] [address] 82456- 6073 06 May, 2015 [facility] [id number] [place] [address] 71865- 7165 May, Major depressive disorder, recurrent, moderate F33.1 ; Generalized anxiety disorder F41.1 ; Insomnia G47.00 and ADD (attention deficit disorder) F90.0 [facility] [id number] [place] [address] 14823- 4309 Apr, Low back pain M54.5 [facility] [id number] [place] [address] 72722- 8867 Apr, [facility] [id number] [place] [address] 15041- 8943 Apr, Low back pain M54.5 [facility] [id number] [place] [address] 45454- 9520 Apr, Low back pain M54.5 ; Tooth pain K08.8 and Seasonal allergic rhinitis due to pollen J30.1 [facility] [id number] [place] [address] 85943- 2894 Apr, Low back pain M54.5 [facility] [address] 28260- 4028 Apr, [facility] Pap smear of vagina R87.622 [facility] [address] 56797- 6097 Apr, Low back pain M54.5 [facility] [address] 37039- 5935 Mar, [facility] [address] 90960- 8320 Mar, Low back pain M54.5 [facility] [id number] [place] [address] 12343- 2714 Mar, Encounter for Papanicolaou smear for cervical cancer screening Z12.4 ; Encounter for routine gynecological examination Z01.419 and Breast cancer screening Z12.39 [facility] [id number] [place] [address] 35866- 8539 18 Mar, 2016 Hypothyroidism, unspecified type E03.9 [facility] [id number] [place] [address] 44406- 5348 14 Mar, 2016 Low back pain M54.5 ; Other chronic pain G89.29 ; Hypothyroid E03.9 and Hypothyroidism, unspecified type E03.9 [place] [place] [address] 18615- 5645 Mar, Major depressive disorder, recurrent, moderate F33.1 and Attention-deficit hyperactivity disorder, predominantly inattentive type F90.0 [facility] [id number] [place] [address] 45054 -3474 Mar, Bronchitis J40 [facility] [id number] [place] [address] 54341- 3571 Jan, [facility] [id number] [place] [address] 08746- 0226 Jan, [facility] [id number] [place] [address] 59495- 7515 Jan, Insomnia G47.00 [facility] [id number] [place] [address] 00831- 7149 December, [facility] [id number] [place] [address] 14586- 7564 December, Major depressive disorder in partial remission F32.4 and Attention-deficit hyperactivity disorder, unspecified type F90.9 [facility] [id number] [place] [address] 95743- 1441 December, [facility] [id number] [place] [address] 51552- 0815 December, [facility] [id number] [place] [address] 30981- 4428 Dec, [facility] [id number] [place] [address] 12539- 4383 Dec, Major depressive disorder, recurrent episode, moderate 296.32 and Attention deficit disorder of childhood without mention of hyperactivity 314.00 [facility] [id number] [place] [address] 49787- 4650 Dec, Major depressive disorder, recurrent episode, mild 296.31 ; ADD (attention deficit disorder) F90.0 and Hyperlipidemia E78.5 [facility] [id number] [place] [address] 17895- 3894 Dec, Insomnia G47.00 [facility] [id number] [place] [address] 76066- 3951 Dec, Attention-deficit hyperactivity disorder, predominantly inattentive type F90.0 [facility] [id number] [address]- 9910 Oct, Restless legs syndrome G25.81 [facility] [id number] [place] [address] 41924- 0947 Oct, Hypothyroidism, unspecified type E03.9 [facility] [id number] [address]- 0464 Oct, [facility] [id number] [place] [address] 93873- 6859 Oct, [facility] [id number] [place] [address] 46494- 1270 15 Nov, 2015 Hypothyroid E03.9 and Chronic hepatitis K73.9 [facility] [id number] [place] [address] 05672- 2707 14 Nov, 2015 [facility] [id number] [place] [address] 85800- 3811 Oct, Restless legs syndrome G25.81 ; Chronic hepatitis K73.9 ; Hypertension I10 ; Hypothyroid E03.9 and Breast cancer screening Z12.39 [facility] [id number] [address]- 1543 Oct, [facility] [id number], [place] [address]- 3399 Oct, [facility] [id number] [address]- 1313 Oct, [facility] [id number], [place] [address]- 2229 Oct, [facility] [id number] [place] [address] 65434- 8950 Oct, [facility] [id number] [address]- 8623 Oct, [facility] [id number] [place] [address] 15762- 7284 Oct, [facility] [id number] [place] [address] 38727- 8548 Sep, [facility] [id number] [place] [address] 14446- 3357 Sep, Attention-deficit hyperactivity disorder, predominantly inattentive type F90.0 and Major depressive disorder in partial remission F32.4 [facility] [id number] [place] [address] 44914- 3121 Sep, [facility] [id number] [place] [address] 42848- 8835 Aug, [facility] [id number] [place] [address] 62028- 3228 Aug, [facility] [id number] [place] [address] 40242- 0430 Aug, Major depressive disorder, recurrent, mild F33.0 ; Attention -deficit hyperactivity disorder, unspecified type F90.9 and Generalized anxiety disorder F41.1 [facility] [id number] [place] [address] 14229- 0027 Aug, Chronic hepatitis K73.9 ; Primary osteoarthritis of both knees M17.0 and Neuralgia M79.2 [facility] [id number], [place] [address]- [id number] Jul, [facility] [id number] [place] [address] [id number]- [id number] Jul, [facility] [id number] [place] [address] [id number]- [id number] Jul, [facility] [id number] [place] [address] 33241- [id number] Jul, [facility] [id number] [place] [address] [id number]- [phone] Jun, [facility] [id number] [place] [address] [id number]- [id number] Jun, Bronchitis J40 and Encounter for immunization Z23 [facility] [id number] [place] [address] [id number]- [phone] 30 May, 2015 [facility] [address] [address]- [address]4 May, [facility] [address] [address]- 3967 May, [facility] [address] [address]- 1572 May, Hypokalemia 276.8 [facility] [address] [address]- 0225 08 May, 2015 Major depressive disorder, recurrent episode, mild 296.31 ; Attention deficit disorder of childhood without mention of hyperactivity 314.00 and Generalized anxiety disorder 300.02 [facility] [address] [address]67- 2297 May, Hypertension 401.9 and Hypokalemia 276.8 [facility] [id number] [place] [address] 75506- 4846 May, [facility] [id number] [place] [address] 22661- 5553 Apr, [facility] [id number] [place] [address] 02862- 2179 Apr, [facility] [id number] [place] [address] 59031- 8910 Apr, [facility] [id number] [place] [address] 98250- 6948 Apr, [facility] [id number] [place] [address] 60333- 9183 Mar, [facility] [id number] [place] [address] 35214- 4053 Mar, [facility] [id number] [place] [address] 04701- 4395 Mar, [facility] [id number] [place] [address] 98714- 3468 Mar, [facility] [id number] [place] [address] [id number]- 5082 Mar, Arthritis of both knees 716.96 ; Hepatitis B 070.30 ; Hypertension 401.9 ; Carpal tunnel syndrome 354.0 and Cubital tunnel syndrome 354.2 [facility] [id number] [place] [address] 64578- 9124 Mar, [facility] [id number] [place] [address] 44819- 5194 Mar, [facility] [id number] [place] [address] 82066- 5807 Mar, 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, chronic, without mention of hepatitis delta 070.32 ; Chronic hepatitis C without mention of hepatic coma 070.54 and Major depressive disorder, recurrent episode, moderate 296.32 [facility] [id number] [place] [address] 57600- 8059 Jan, [facility] [id number] [place] [address] 68059- 2418 Jan, Major depressive disorder, recurrent episode, mild 296.31 and Attention deficit disorder of childhood without mention of hyperactivity 314.00 [facility] [id number] [address]- 7592 Jan, [facility] [id number] [place] [address] 41344- 0839 Jan, [facility] [id number] [place] [address] 97260- 9384 December, Attention deficit disorder of childhood without mention of hyperactivity 314.00 ; Major depressive disorder, recurrent episode, mild 296.31 and Generalized anxiety disorder 300.02 [facility] [id number] [place] [address] 93588- 6168 December, [facility] [place] [facility] [address] [id number] [place] [address]- 8736 14 Dec, 2014 [facility] [place] [facility] [address] [id number] [place] [address]- 3195 13 Dec, 2014 [facility] [place] [facility] [address] [id number] [place] [address]- 8416 19 Oct, 2014 [facility] [place] [facility] [address] [id number] [place] [address]- 5031 19 Oct, 2014 [facility] [place] [facility] [address] [id number] [place] [address]- 1131 18 Oct, 2014 [facility] [place] [facility] [address] [id number] [place] [address]- 3844 18 Oct, 2014 [facility] [place] [facility] [address] [id number] [place] [address]- 7660 18 Oct, 2014 [facility] [place] [facility] [address] [id number] [place] [address]- 2480 18 Oct, 2014 [facility] [place] [facility] [address] [id number] [place] [address]- 6946 16 Oct, 2014 [facility] [place] [facility] [address] [id number] [place] [address]- 2732 13 Oct, 2014 [facility] [place] [facility] [address] [id number] [place] [address]- 0687 13 Oct, 2014 [facility] [place] [facility] [address] [id number], [place] [address]- 4459 12 Oct, 2014 [facility] [place] [facility] [address] [id number] [place] [address]- 7925 12 Oct, 2014 [facility] [place] [facility] [address] [id number] [place] [address]- 7134 10 Oct, 2014 [facility] [place] [facility] [address] [id number], [place] [address]- 0669 10 Oct, 2014 [facility] [place] [facility] [address] [id number], [place] [address]- 4978 Oct, 2014 [facility] [place] [facility] [address] [id number] [place] [address]- 3017 Oct, 2014 [facility] [place] [facility] [address] [facility] [id number] [place] [address]- 7336 Oct, 2014 [facility] [place] [facility] [address] [facility] [id number] [place] [address]- 9706 Oct, 2014 [facility] [place] [facility] [address] [facility] [id number] [place] [address]- 2089 25 Oct, 2014 [facility] [place] [facility] [address] [facility] [id number] [place] [address]- 1440 Oct, 2014 [facility] [place] [facility] [address] [id number] [place] [address]- 1140 18 Oct, 2014 [facility] [place] [facility] [address] [id number] [place] [address]- 2887 17 Oct, 2014 [facility] [place] [facility] [address] [facility] [id number] [place] [address]- 5322 17 Oct, 2014 [facility] [place] [facility] [address] [id number] [place] [address]- 8033 11 Oct, 2014 [facility] [place] [facility] [address] [id number] [place] [address]- 2996 11 Oct, 2014 [facility] [place] [facility] [address] [facility] [id number] [place] [address]- 2548 11 Oct, 2014 [facility] [place] [facility] [address] [facility] [id number] [place] [address]- 2548 11 Oct, 2014 [facility] [place] [facility] [address] [facility] [id number] [place] [address]- 5296 10 Oct, 2014 [facility] [place] [facility] [address] [facility] [id number], [place] [address]- 2546 10 Oct, 2014 [facility] [place] [facility] [address] [facility] [id number], [place] [address]- 0425 Sep, [facility] [place] [facility] [address] [id number] [place] [address]- 1601 Sep, [facility] [place] [facility] [address] [id number] [place] [address]- 1336 Sep, [facility] [place] [facility] [address] [id number] [place] [address]- 4703 Sep, [facility] [place] [facility] [address] [id number] [place] [address]- 3452 Sep, [facility] [place] [facility] [address] [id number] [place] [address]- 9111 Sep, [facility] [place] [facility] [address] [id number] [place] [address]- 5958 Sep, [facility] [place] [facility] [address] [id number] [place] [address]- 5938 Sep, [facility] [place] [facility] [address] [id number], [place] [address]- 7922 Sep, [facility] [place] [facility] [address] [id number] [place] [address]- 9799 Sep, [facility] [place] [facility] [address] [id number] [place] [address]- 9416 Sep, [facility] [place] [facility] [address] [id number], [place] [address]- 2307 Sep, [facility] [place] [facility] [address] [id number], [place] [address]- 0988 Sep, [facility] [place] [facility] [address] [id number], [place] [address]- 0719 Sep, [facility] [place] [facility] [address] [id number], [place] [address]- 8547 Sep, [facility] [place] [facility] [address] [id number], [place] [address]- 1548 Sep, [facility] [place] [facility] [address] [id number] [place] [address]- 5008 Aug, [facility] [place] [facility] [address] [id number] [place] [address]- 3676 Aug, [facility] [place] [facility] [address] [id number] [place] [address]- 4516 Aug, [facility] [place] [facility] [address] [id number] [place] [address]- 6356 Aug, [facility] [place] [facility] [address] [id number] [place] [address]- 9799 Aug, [facility] [place] [facility] [address] [id number] [place] [address]- 5769 Aug, [facility] [place] [facility] [address] [id number] [place] [address]- 6914 Aug, [facility] [place] [facility] [address] [id number] [place] [address]- 6180 Aug, [facility] [place] [facility] [address] [id number] [place] [address]- 1967 19 Aug, 2014 [facility] [place] [facility] [address] [id number] [place] [address]- 8678 18 Aug, 2014 [facility] [place] [facility] [address] [id number] [place] [address]- 5148 18 Aug, 2014 [facility] [place] [facility] [address] [id number] [place] [address]- 5336 16 Aug, 2014 [facility] [place] [facility] [address] [id number] [place] [address]- 8819 16 Aug, 2014 [facility] [place] [facility] [address] [id number] [place] [address]- 3661 15 Aug, 2014 [facility] [place] [facility] [address] [id number] [place] [address]- 0316 15 Aug, 2014 [facility] [place] [facility] [address] [id number] [place] [address]- 6805 Aug, [facility] [place] [facility] [address] [id number] [place] [address]- 2456 Aug, [facility] [place] [facility] [address] [id number] [place] [address]- 6425 Aug, [facility] [place] [facility] [address] [id number] [place] [address]- 2935 Aug, [facility] [place] [facility] [address] [id number] [place] [address]- 2663 Aug, [facility] [place] [facility] [address] [id number] [place] [address]- 6638 Aug, [facility] [place] [facility] [address] [id number] [place] [address]- 8957 Aug, [facility] [place] [facility] [address] [id number] [place] [address]- 6577 Aug, [facility] [place] [facility] [address] [id number] [place] [address]- 6831 Aug, [facility] [place] [facility] [address] [id number] [place] [address]- 9560 Aug, [facility] [place] [facility] [address] [id number] [place] [address]- 5083 Jul, [facility] [place] [facility] [address] [id number] [place] [address]- 1781 Jul, [facility] [place] [facility] [address] [id number] [place] [address]- 0718 Jul, [facility] [place] [facility] [address] [id number] [place] [address]- 0577 Jul, [facility] [place] [facility] [address] [id number] [place] [address]- 7860 Jul, [facility] [place] [facility] [address] [id number] [place] [address]- 5740 Jul, [facility] [place] [facility] [address] [id number], [place] [address]- 7093 Jun, [facility] [place] [facility] [address] [id number] [place] [address]- 1314 Jun, [facility] [place] [facility] [address] [id number] [place] [address]- 5656 Jun, [facility] [place] [facility] [address] [id number] [place] [address]- 8980 Jun, [facility] [place] [facility] [address] [id number] [place] [address]- 7596 Jun, [facility] [place] [facility] [address] [id number] [place] [address]- 4387 Jun, [facility] [place] [facility] [address] [id number] [place] [address]- 9694 Jun, [facility] [place] [facility] [address] [id number] [place] [address]- 6639 Jun, [facility] [place] [facility] [address] [id number] [place] [address]- 9435 16 May, 2013 [facility] [place] [facility] [address] [id number] [place] [address]- 6521 16 Sep, 2013 [facility] [place] [facility] [address] [id number] [place] [address]- 9583 15 May, 2013 [facility] [place] [facility] [address] [id number], [place] [address]- 3887 15 Sep, 2013 [facility] [place] [facility] [address] [id number], [place] [address]- 1806 08 Sep, 2013 [facility] [place] [facility] [address] [id number] [place] [address]- 3986 08 Sep, 2013 [facility] [place] [facility] [address] [id number] [place] [address]- 5500 08 Sep, 2013 [facility] [place] [facility] [address] [id number] [place] [address]- 9997 08 Sep, 2013 [facility] [place] [facility] [address] [id number] [place] [address]- 3879 Apr, [facility] [place] [facility] [address] [id number] [place] [address]- 0865 Apr, [facility] [place] [facility] [address] [id number] [place] [address]- 2422 Apr, [facility] [place] [facility] [address] [id number] [place] [address]- 9441 Apr, [facility] [place] [facility] [address] [id number] [place] [address]- 3383 Apr, [facility] [place] [facility] [address] [id number] [place] [address]- 8234 Apr, [facility] [place] [facility] [address] [id number] [place] [address]- 9888 Apr, [facility] [place] [facility] [address] [id number] [place] [address]- 0992 Apr, [facility] [place] [facility] [address] [id number] [place] [address]- 7857 Apr, [facility] [place] [facility] [address] [id number] [place] [address]- 0459 Apr, [facility] [place] [facility] [address] [id number] [place] [address]- 0178 Apr, [facility] [place] [facility] [address] [id number] [place] [address]- 5488 Apr, [facility] [place] [facility] [address] [id number] [place] [address]- 9205 Apr, [facility] [place] [facility] [address] [id number] [place] [address]- 1189 Mar, [facility] [place] [facility] [address] [id number] [place] [address]- 4918 Mar, [facility] [place] [facility] [address] [id number] [place] [address]- 8707 Mar, [facility] [place] [facility] [address] [id number] [place] [address]- 0082 Mar, [facility] [place] [facility] [address] [id number] [place] [address]- 8903 Jan, [facility] [place] [facility] [address] [id number] [place] [address]- 5720 Jan, [facility] [place] [facility] [address] [id number] [place] [address]- 7844 December, [facility] [place] [facility] [address] [id number] [place] [address]- 9228 December, [facility] [place] [facility] [address] [id number] [place] [address]- 9468 December, [facility] [place] [facility] [address] [id number] [place] [address]- 9992 December, [facility] [place] [facility] [address] [id number] [place] [address]- 4340 December, [facility] [place] [facility] [address] [id number] [place] [address]- 8827 December, [facility] [place] [facility] [address] [id number] [place] [address]- 0386 December, [facility] [place] [facility] [address] [id number] [place] [address]- 2347 December, [facility] [place] [facility] [address] [id number] [place] [address]- 4672 Dec, [facility] [place] [facility] [address] [id number] [place] [address]- 7989 Dec, [facility] [place] [facility] [address] [id number] [place] [address]- 0076 Dec, [facility] [place] [facility] [address] [id number] [place] [address]- 1137 Dec, [facility] [place] [facility] [address] [id number] [place] [address]- 7360 Oct, [facility] [place] [facility] [address] [id number] [place] [address]- 2530 Oct, [facility] [place] [facility] [address] [id number] [place] 9151 Oct, [facility] [place] [facility] [address] [id number] [place] [address]- 5648 Oct, [facility] [place] [facility] [address] [id number] [place] [address]- 7416 Oct, [facility] [place] [facility] [address] [id number] [place] [address]- 7918 Oct, [facility] [place] [facility] [address] [id number] [place] [address]- 5878 Oct, [facility] [place] [facility] [address] [facility] [id number] [place] [address]- 1319 Oct, [facility] [place] [facility] [address] [id number] [place] [address]- 5107 Oct, [facility] [place] [facility] [address] [id number] [place] [address]- 8229 Oct, [facility] [place] [facility] [address] [facility] [id number] [place] [address]- 3218 Oct, [facility] [place] [facility] [address] [facility] [id number] [place] [address]- 6906 Oct, [facility] [place] [facility] [address] [facility] [id number] [place] [address]- 1768 Oct, [facility] [place] [facility] [address] [id number] [place] [address]- 7935 Oct, [facility] [place] [facility] [address] [facility] [id number] [place] [address]- 2502 Oct, [facility] [place] [facility] [address] [facility] [id number] [place] [address]- 1425 Oct, [facility] [place] [facility] [address] [id number] [place] [address]- 4039 Oct, [facility] [place] [facility] [address] [id number] [place] [address]- 8183 Oct, [facility] [place] [facility] [address] [id number] [place] [address]- 1339 Oct, [facility] [place] [facility] [address] [id number] [place] [address]- 7183 Oct, [facility] [place] [facility] [address] [id number] [place] [address]- 4068 Oct, [facility] [place] [facility] [address] [id number] [place] [address]- 2397 Oct, [facility] [place] [facility] [address] [id number] [place] [address]- 3971 Sep, [facility] [place] [facility] [address] [id number] [place] [address]- 5958 Sep, [facility] [place] [facility] [address] [id number] [place] [address]- 3694 Sep, [facility] [place] [facility] [address] [facility] [id number] [place] [address]- 3354 Sep, [facility] [place] [facility] [address] [facility] [id number] [place] [address]- 7560 Aug, [facility] [place] [facility] [address] [id number] [place] [address]- 4375 Aug, [facility] [place] [facility] [address] [id number] [place] [address]- 2318 Aug, [facility] [place] [facility] [address] [facility] [id number] [place] [address] Aug, [facility] [place] [facility] [address] [facility] [id number] [place] [address] Aug, [facility] [place] [facility] [address] [id number] [place] [address] Aug, [facility] [address] [id number] [place] [address] Aug, [facility] [address] [id number] [place] [address] Aug, [facility] [address] [id number] [place] [address] Aug, [facility] [address] [id number] [place] [address] Jul, [facility] [address] [id number] [place] [address] Jul, [facility] [address] [id number] [place] [address] Jul, [facility] [address] [id number] [place] [address] Jul, [facility] [address] [id number] [place] [address] Jul, [facility] [address] [facility] [id number] [place] [address] Jul, [facility] [address] [facility] [id number] [place] [address] Jul, [facility] [place] [facility] [address] [id number] [place] [address] Jul, [facility] [address] [id number] [place] [address] Jun, [facility] [place] [facility] [address] [id number] [place] [address] Jun, [facility] [place] [facility] [address] [facility] [id number] [place] [address] Jun, [facility] [place] [facility] [address] [id number] [place] [address] Jun, [facility] [place] [facility] [address] [id number] [place] [address] Jun, [facility] [place] [facility] [address] [id number] [place] [address] Jun, [facility] [place] [facility] [address] [id number] [place] [address] Jun, [facility] [place] [facility] [address] [id number] [place] [address] Jun, [facility] [place] [facility] [address] [id number] [place] [address] 30 May, 2013 [facility] [place] [facility] [address] [id number] [place] [address] 26 May, 2013 [facility] [place] [facility] [address] [id number] [place] [address] 23 May, 2013 [facility] [place] [facility] [address] [id number] [place] [address] 19 May, 2013 [facility] [place] [facility] [address] [id number] [place] [address] May, [facility] [place] [facility] [address] [id number], [place] [address] May, [facility] [place] [facility] [address] [id number], [place] [address] Apr, [facility] [place] [facility] [address] [id number], [place] [address] Apr, [facility] [place] [facility] [address] [id number] [place] [address] Apr, [facility] [place] [facility] [address] [id number], [place] [address] Apr, [facility] [place] [facility] [address] [id number], [place] [address] Apr, [facility] [place] [facility] [address] [id number], [place] [address] Apr, [facility] [place] [facility] [address] [id number] [place] [address]- [address] Apr, [facility] [place] [facility] [address] [id number] [place] [address] Mar, [facility] [place] [facility] [address] [id number] [place] [address] 1660 Mar, [facility] [place] [facility] [address] [id number] [place] [address]- [address] Mar, [facility] [place] [facility] [address] [id number] [place] [address]- [address] Mar, [facility] [place] [facility] [address] [id number] [place] [address] Mar, [facility] [place] [facility] [address] [id number] [place] [address]- [address] Mar, [facility] [place] [facility] [address] [id number] [place] [address] Mar, [facility] [place] [facility] [address] [id number] [place] [address]- [address] Jan, [facility] [place] [facility] [address] [id number] [place] [address]- [address] Jan, [facility] [place] [facility] [address] [id number] [place] [address] Jan, [facility] [place] [facility] [address] [id number] [place] [address]- 1314 Jan, [facility] [place] [facility] [address] [id number] [place] [address]- [address] Jan, [facility] [place] [facility] [address] [id number] [place] [address]- 4184 Jan, [facility] [place] [facility] [address] [id number] [place] [address]- [address]955 Jan, [facility] [place] [facility] [address] [id number] [place] [address]- 1413 December, [facility] [address] [id number] [place] [address]- [address] December, [facility] [address] [id number] [place] [address] December, [facility] [address] [id number] [place] [address] December, [facility] [address] [id number] [place] [address]- [address] 30 Dec, 2012 [facility] [address] [id number] [place] [address] Dec, [facility] [address] [id number] [place] [address] Dec, [facility] [address] [id number] [place] [address]- [address] Oct, [facility] [address] [id number] [place], [place] [address] Oct, [facility] [address] [id number] [place] [address] Oct, [facility] [address] [id number] [place] [address] 290[address] Oct, [facility] [address] [id number] [place] [address] Oct, [facility] [address] [id number] [place] [address] 79[address] Oct, [facility] [place] [facility] [address] [id number] [place] [address] Oct, [facility] [place] [facility] [address] [id number] [place] [address] Oct, [facility] [place] [facility] [address] [id number] [place] [address] Oct, [facility] [place] [facility] [address] [id number] [place] [address]- 9066 Oct, [facility] [place] [facility] [address] [id number] [place] [address] 4689 Oct, [facility] [place] [facility] [address] [facility] [id number] [place] [address] Sep, [facility] [place] [facility] [address] [id number] [place] [address]- 6[address] Sep, [facility] [place] [facility] [address] [id number] [place] [address] 56[address] Sep, [facility] [place] [facility] [address] [facility] [id number] [place] [address] 7201 Aug, [facility] [place] [facility] [address] [facility] [id number] [place] [address]- 0283 Aug, [facility] [place] [facility] [address] [id number] [place] [address]- 9549 Aug, [facility] [place] [facility] [address] [id number] [place] [address]- 30[address] Aug, [facility] [place] [facility] [address] [facility] [id number] [place] [address] Jul, [facility] [place] [facility] [address] [facility] [id number], [place] [address] Jul, [facility] [place] [facility] [address] [id number], [place] [address] Jul, [facility] [place] [facility] [address] [id number] [place] [address]- 4637 Jul, [facility] [place] [facility] [address] [facility] [id number] [place] [address]- 1570 Jul, [facility] [place] [facility] [address] [facility] [id number] [place] [address]- 8711 Jul, [facility] [place] [facility] [address] [id number] [place] [address]- 5871 Jul, [facility] [place] [facility] [address] [id number] [place] [address]- 8328 Jul, [facility] [place] [facility] [address] [id number] [place] [address] 0998 Jun, [facility] [place] [facility] [address] [id number] [place] [address]- 3[address] Jun, [facility] [place] [facility] [address] [id number] [place] [address]- 1360 Jun, [facility] [place] [facility] [address] [id number] [place] [address]- 2452 Jun, [facility] [place] [facility] [address] [id number] [place] [address]- 3471 Jun, [facility] [place] [facility] [address] [id number] [place] [address]- 6496 26 May, 2012 [facility] [place] [facility] [address] [id number] [place] [address]- 3278 20 May, 2012 [facility] [place] [facility] [address] [id number] [place] [address] 4022 18 May, 2012 [facility] [place] [facility] [address] [facility] [id number] [place] [address]- 3789 09 May, 2012 [facility] [place] [facility] [address] [id number] [place] [address]- 2540 04 May, 2012 [facility] [place] [facility] [address] [id number] [place] [address]- 5414 30 Apr, 2012 [facility] [place] [facility] [address] [id number] [place] [address]- 3058 29 Apr, 2012 [facility] [place] [facility] [address] [facility] [id number] [place] [address]- 0908 16 Apr, 2012 [facility] [place] [facility] [address] [facility] [id number] [place] [address]- 3774 Apr, [facility] [place] [facility] [address] [id number] [place] [address]- 3217 Apr, [facility] [place] [facility] [address] [id number] [place] [address]- 0357 Apr, [facility] [place] [facility] [address] [id number] [place] [address]- 4147 Apr, [facility] [place] [facility] [address] [id number] [place] [address]- 9809 Mar, [facility] [place] [facility] [address] [id number] [place] [address]- 3341 Mar, [facility] [place] [facility] [address] [id number] [place] [address]- 4066 Mar, [facility] [place] [facility] [address] [id number] [place] [address]- 2556 Mar, [facility] [place] [facility] [address] [id number] [place] [address]- 8914 Jan, [facility] [place] [facility] [address] [id number] [place] [address]- 9704 Jan, [facility] [place] [facility] [address] [id number] [place] [address]- 7939 Jan, [facility] [place] [facility] [address] [id number] [place] [address]- 2363 Jan, [facility] [place] [facility] [address] [id number] [place] [address]- 8487 Jan, [facility] [place] [facility] [address] [id number] [place] [address]- 8046 Jan, [facility] [place] [facility] [address] [id number] [place] [address]- 9776 December, [facility] [place] [facility] [address] [id number] [place] [address]- 8117 December, [facility] [place] [facility] [address] [id number] [place] [address]- 2970 December, [facility] [address] [id number] [place] [address]- 2066 December, [facility] [place] [facility] [address] [id number] [place] [address]- 7906 Dec, [facility] [place] [facility] [address] [id number] [place] [address]- 3106 Dec, [facility] [place] [facility] [address] [id number] [place] [address]- 7445 30 Nov, 2011 [facility] [place] [facility] [address] [id number] [place] [address]- 1323 Oct, [facility] [place] [facility] [address] [id number] [place] [address]- 7230 Oct, [facility] [address] [place] [place] [id number] [place] [address]- [address]273 Oct, [facility] [place] [facility] [address] [facility] [id number] [place] [address]- 2436 Oct, [facility] [address] [facility] [id number] [place] [address]- 8486 Oct, [facility] [place] [facility] [address] [facility] [id number] [place] [address]- 1221 Oct, [facility] [place] [facility] [address] [id number] [place] [address]- 4992 Oct, [facility] [place] [facility] [address] [id number] [place] [address]- 1502 Oct, [facility] [place] [facility] [address] [id number] [place] [address]- 3604 Oct, [facility] [place] [facility] [address] [id number] [place] [address]- 3316 Oct, [facility] [place] [facility] [address] [facility] [id number] [place] [address]- 1900 Sep, [facility] [place] [facility] [address] [id number] [place] [address]- 0989 Sep, [facility] [place] [facility] [address] [id number] [place] [address]- 5891 Sep, [facility] [place] [facility] [address] [id number] [place] [address]- 1305 Sep, [facility] [place] [facility] [address] [id number] [place] [address]- 4351 Sep, [facility] [place] [facility] [address] [id number] [place] [address]- 3336 Sep, [facility] [place] [facility] [address] [id number] [place] [address]- 0218 Sep, [facility] [place] [facility] [address] [id number] [place] [address]- 1865 Sep, [facility] [address] [id number] [place] [address]- 4436 Aug, [facility] [place] [facility] [address] [id number] [place] [address]- 5994 Aug, [facility] [place] [facility] [address] [id number] [place] [address]- 9352 Aug, [facility] [place] [facility] [address] [id number] [place] [address]- 1896 Jul, [facility] [place] [facility] [address] [id number] [place] [address]- 0042 Jul, [facility] [place] [facility] [address] [id number] [place] [address]- 6497 18 Jul, 2011 [facility] [place] [facility] [address] [id number] [place] [address]- 5700 17 Jul, 2011 [facility] [place] [facility] [address] [id number] [place] [address]- 7167 08 Jul, 2011 [facility] [place] [facility] [address] [id number] [place] [address]- 4216 Jul, [facility] [place] [facility] [address] [id number] [place] [address]- 2770 31 Jun, 2011 [facility] [place] [facility] [address] [id number] [place] [address]- 9467 20 Jun, 2011 [facility] [place] [facility] [address] [id number] [place] [address]- 3289 Mar, [facility] [place] [facility] [address] [id number] [place] [address]- 2227 14 Dec, 2010 [facility] [place] [facility] [address] [id number] [place] [address]- 7597 14 Oct, 2010 [facility] [place] [facility] [address] [id number] [place] [address]- 4390 06 Aug, 2010 [facility] [place] [facility] [address] [id number] [place] [address]- 3650 30 Jul, 2010 [facility] [place] [facility] [address] [id number] [place] [address]- 9006 Jul, [facility] [place] [facility] [address] [id number] [place] [address]- 5667 Jul, [facility] [place] [facility] [address] [id number] [place] [address]- 0006 Jul, [facility] [place] [facility] [address] [id number], [place] [address]- 8500 Jul, [facility] [place] [facility] [address] [id number], [place] [address]- 9855 22 Aug, 2009 [facility] [place] [facility] [address] [id number] [place] [address]- 5760 15 Aug, 2009 [facility] [place] [facility] [address] [id number] [place] [address]- 4372 14 Aug, 2009 [facility] [place] [facility] [address] [id number] [place] [address]- 3909 07 Aug, 2009 [facility] [place] [facility] [address] [facility] [id number] [place] [address] 2546 Jul, [facility] [address] [facility] [id number][place] [address]13 Jul, [facility] [address] [facility] [id number], [place] [address]- 5293 Jul, [facility] [address] [facility] [id number], [place] [address]- 5191 Jul, [facility] [address] [facility] [id number][place]- 1050 Jun, [facility] [address] [facility] [id number][place] [address] Jun, IMMUNIZATIONS No Known Immunizations SOCIAL HISTORY Never Assessed REASON FOR VISIT Lab (walk-in) PLAN OF CARE VITAL SIGNS MEDICATIONS Unknown Medications RESULTS No Results PROCEDURES Procedure Date Ordered Result Body Site LAB NOT BILLED BY [facility] March 18, 2017 MONICA, ROUTINE* March 18, 2017 INSTRUCTIONS MEDICATIONS ADMINISTERED No Known Medications [...]
--- OUTSIDE RECORDS SUMMARY | 2018-03-17 11:38 | XMS REPORT ---
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 Role Phone MEGAANNETTELISA Unavailable PROBLEMS Type Condition ICD9-CM Code FOP00-WC Code Onset Dates Condition Status SNOMED Code Problem Hyperinsulinemia E16.1 Active 00323910 Problem Attention-deficit hyperactivity disorder, predominantly inattentive type F90.0 Active 18751772 Problem Obstructive sleep apnea G47.33 Active 17922014 Problem Primary insomnia F51.01 Active 3568933 Problem Neuralgia M79.2 Active 88342251 Problem Cannabis use disorder, mild, abuse F12.10 Active 47943596 Problem Folic acid deficiency E53.8 Active 658509615 Problem Restless legs G25.81 Active 12781594 Problem Major depressive disorder, recurrent, mild F33.0 Active 94958708 Problem Generalized anxiety disorder F41.1 Active 87246146 Problem Major depressive disorder, recurrent episode, moderate F33.1 Active 915882762 Problem Hypertension I10 Active 63947376 Problem Hyperlipidemia E78.5 Active 81227333 Problem Primary osteoarthritis of both knees M17.0 Active 274689712 Problem Chronic hepatitis K73.9 Active 80874876 Problem Low back pain M54.5 Active 304434980 Problem Chronic viral hepatitis B without delta-agent B18.1 Active 440060554 Problem Insomnia G47.00 Active 045741011 Problem Hypothyroid E03.9 Active 79160771 Problem Depression, major, recurrent, mild F33.0 Active 710306593 Problem Obesity due to excess calories, unspecified obesity severity E66.09 Active 630713553 ALLERGIES No Information ENCOUNTERS Encounter Location Date Diagnosis [facility] [address] [facility] [id number] [address] December, [facility] [address] [id number] [address] Dec, [facility] [id number] [place] [address] 01733- 1344 Oct, [facility] [address] 7[address]98- 8237 Oct, Syncope, unspecified syncope type R55 ; Primary insomnia F51.01 ; Dry mouth R68.2 and Cannabis use disorder, mild, abuse F12.10 [facility] [address] 13103- 9647 Oct, [facility] [address] 10673- 2487 Sep, [facility] [address] 82896- 7834 Sep, [facility] [address] 15863- 5222 Sep, [facility] [address] [id number] Sep, Dental examination Z01.20 [facility] [id number] [place] [address] 37056- 4299 Sep, Dental examination Z01.20 [facility] [id number] [place] [address] 11640- 3332 Sep, Sinus congestion R09.81 ; Mouth sores K13.79 ; Low back pain M54.5 and Mouth swelling R22.0 [facility] [id number] [place] [address] 07691- 9953 Aug, Low back pain M54.5 [facility] [address] 55070- 3009 Aug, Low back pain M54.5 [facility] [id number] [place] [address] 65273- 6398 Jul, [facility] [address] 85180- 1152 Jul, Hyperinsulinemia E16.1 ; Encounter for immunization Z23 ; Hypothyroid E03.9 ; Decreased renal function N28.9 and Muscle cramps R25.2 [facility] [address] 46277- 4185 Jul, [facility] [address] 59455- 7277 Jul, [facility] [address] 15600- 4829 Jul, [facility] [address] 42500- 8324 Jul, Major depressive disorder, recurrent, mild F33.0 [place] [address] [address] 35576- 6872 Jul, Acquired cyst of kidney N28.1 ; Acidosis E87.2 and Hyperkalemia E87.5 [place] [address] 68563- 7673 Jul, Major depressive disorder, recurrent, mild F33.0 ; Attention -deficit hyperactivity disorder, predominantly inattentive type F90.0 and Generalized anxiety disorder F41.1 [facility] [address] 17983- 9695 Jul, Low back pain M54.5 [facility] [address] [place] [id number] [place] [address] 17182- 0650 Jun, Cough R05 ; Low back pain M54.5 and Pre-syncope R55 [facility] [address] 53083- 4376 Jun, Low back pain M54.5 [facility] [address] [id number] Jun, Dental caries K02.9 [facility] [id number] [place] [address] 29819- 7494 Jun, [facility] [id number] [place] [address] 43864- 3888 Jun, Major depressive disorder, recurrent, mild F33.0 ; Attention -deficit hyperactivity disorder, predominantly inattentive type F90.0 and Generalized anxiety disorder F41.1 [facility] [id number] [place] [address] 39694- 2300 13 May, 2017 Vertigo R42 ; Confusion R41.0 ; Weakness R53.1 and Vision changes H53.9 [facility] [id number] [place] [address] 03197- 5412 May, [place] [address] 02597- 3584 May, [facility] [id number] [place] [address] 69767- 0153 08 May, 2017 Low back pain M54.5 [facility] [address] 02690- 0486 05 May, 2017 Major depressive disorder, recurrent, mild F33.0 ; Attention -deficit hyperactivity disorder, predominantly inattentive type F90.0 and Generalized anxiety disorder F41.1 [facility] [id number] [place] [address] 20952- 4892 May, [facility] [id number] [place] [address] 31771- 1659 May, Acute worsening of stage 3 chronic kidney disease N18.3 [facility] [id number] [place] [address] 38053- 8088 Apr, [facility] [id number] [place] [address] 52975- 5485 Apr, Acute allergic rhinitis due to pollen, unspecified seasonality J30.1 ; Restless legs G25.81 and Low back pain M54.5 [facility] [id number] [place] [address] 37407- 7399 Apr, Primary osteoarthritis of both knees M17.0 [facility] [id number] [place] [address] 87894- 8004 Apr, Generalized anxiety disorder F41.1 [facility] [id number] [place] [address] [address] Apr, Major depressive disorder, recurrent, mild F33.0 ; Attention -deficit hyperactivity disorder, predominantly inattentive type F90.0 and Generalized anxiety disorder F41.1 [facility] [id number] [place] [address] 86439- 1214 Apr, [facility] [id number] [place] [address] 86095- 5949 Mar, Major depressive disorder, recurrent episode, moderate F33.1 ; Generalized anxiety disorder F41.1 and ADHD, predominantly inattentive type F90.0 [facility] [id number] [place] [address] 36134 -5702 Mar, Abscess L02.91 [facility] [id number] [place] [address] 22171- 2419 Mar, Hyperinsulinemia E16.1 [facility] [id number] [place] [address] 78292- 8779 Mar, Decreased renal function N28.9 [facility] [id number] [place] [address] [id number] Mar, Dental examination Z01.20 [facility] [id number] [place] [address] 02523- 9553 Mar, Hyperinsulinemia E16.1 [facility] [id number] [place] [address] 38843- 1309 Mar, Hyperinsulinemia E16.1 [facility] [address] [id number] Mar, Dental examination Z01.20 and Dental caries K02.9 [facility] [id number] [place] [address] 50508- 2359 Mar, Chronic viral hepatitis B without delta-agent B18.1 ; Folic acid deficiency E53.8 ; Hyperinsulinemia E16.1 and Decreased renal function N28.9 [facility] [id number] [place] [address] 16196- 2323 Mar, Major depressive disorder, recurrent, mild F33.0 [facility] [id number] [place] [address] 77800- 3542 Mar, [place] [address] 76344- 1660 Mar, Chronic hepatitis K73.9 ; Hyperinsulinemia E16.1 ; Localized edema R60.0 ; Illicit drug use F19.90 ; Vision changes H53.9 and Obesity due to excess calories, unspecified obesity severity E66.09 [facility] [id number] [place] [address] 61179- 4354 Jan, Major depressive disorder, recurrent, mild F33.0 [facility] [id number] [place] [address] 56659- 4316 Jan, Chronic viral hepatitis B without delta-agent B18.1 [facility] [id number] [place] [address] 56474- 5053 Jan, [facility] [id number] [place] [address] 62134- 5329 Jan, Weight gain R63.5 ; Hypothyroid E03.9 ; Hyperinsulinemia E16.1 ; Decreased renal function N28.9 and Chronic viral hepatitis B without delta-agent B18.1 [facility] [id number] [place] [address] 63666- 6135 December, Major depressive disorder, recurrent, mild F33.0 and Generalized anxiety disorder F41.1 [facility] [id number] [place] [address] 20152- 7417 December, Obesity due to excess calories, unspecified obesity severity E66.09 and Folic acid deficiency E53.8 [facility] [id number] [place] [address] 05899- 4750 December, Folic acid deficiency E53.8 [facility] [id number] [place] [address] 87668- 3125 December, Folic acid deficiency E53.8 [facility] [id number] [place] [address] 79646- 4856 December, Obesity due to excess calories, unspecified obesity severity E66.09 [facility] [address] 58566- 4648 December, [facility] [address] 14217- 3338 December, Folic acid deficiency E53.8 [facility] [address] [id number] December, Encounter for other administrative examinations Z02.89 [facility] [address] 19441- 1975 Dec, [facility] [address] [id number] Dec, Dental caries K02.9 [facility] [address] 10909- 3498 Oct, Bone pain M89.8X9 [facility] [id number] [place] [address] 84552- 7275 Oct, Hypothyroid E03.9 [facility] [id number] [place] [address] 99313- 7664 Oct, Hypothyroid E03.9 [facility] [id number] [place] [address] 15565- 7830 Oct, Breast cancer screening Z12.39 [facility] [id number] [place] [address] [id number] Oct, Dental examination Z01.20 [facility] [id number] [place] [address] 76750- 9311 Oct, [place] [id number] [place] [address] 27067- 3101 Oct, Major depressive disorder, recurrent, mild F33.0 and Generalized anxiety disorder F41.1 [place] [address] [place] [address] 96763- 8636 Oct, [place] [id number] [place] [address] 60219- 1388 Oct, Hypothyroid E03.9 [facility] [id number] [place] [address] 02770- 2230 Sep, Hypothyroid E03.9 ; Chronic viral hepatitis B without delta- agent B18.1 and Folic acid deficiency E53.8 [facility] [place] [id number] [place] [address] 97083- 1459 Sep, Hypothyroidism, unspecified type E03.9 ; Elevated parathyroid hormone E34.9 and Chronic viral hepatitis B without delta-agent B18.1 [place] [id number] [place] [address] 17443- 9941 Sep, [facility] [id number] [place] [address] 42150- 1544 Sep, Elevated parathyroid hormone E34.9 [facility] [id number] [place] [address] 12272- 0494 Sep, [facility] [id number] [place] [address] 73980- 1675 Sep, Chronic hepatitis K73.9 ; Bone pain M89.8X9 and Abnormal complete blood count R79.89 [facility] [id number] [place] [address] 66351- 1038 Aug, Major depressive disorder, recurrent, mild F33.0 [facility] [address] [place] [address] 62352- 0042 Aug, Bone pain M89.8X9 [facility] [id number] [place] [address] 33154- 9401 Aug, [facility] [address] [place] [address] 18480- 1412 Jul, Chronic viral hepatitis B without delta-agent B18.1 [facility] [id number] [place] [address] 29753- 9423 Jul, Hypothyroidism, unspecified type E03.9 [facility] [id number] [place] [address] 59873- 5952 Jul, [facility] [id number] [place] [address] 90189- 7215 Jul, Chronic hepatitis K73.9 and Hypothyroid E03.9 [facility] [id number] [place] [address] 73855- 6340 Jul, Low back pain M54.5 [facility] [id number] [place] [address] 89419- 2256 Jun, Depression, major, recurrent, mild F33.0 and ADD (attention deficit disorder) F90.0 [facility] [id number] [place] [address] 05959- 5608 Jun, [facility] [id number] [place] [address] 28196- 9970 Jun, Low back pain M54.5 [facility] [id number] [place] [address] 25690- 2366 Jun, Encounter for immunization Z23 ; Major depressive disorder, recurrent, mild F33.0 and Attention-deficit hyperactivity disorder, predominantly inattentive type F90.0 [facility] [place] [id number] [place] [address] 37600- 6095 Jun, [facility] [id number] [place] [address] 24038- 6619 Jun, Low back pain M54.5 [facility] [id number] [place] [address] 03039- 2376 May, [facility] [id number] [place] [address] 84820- 8837 May, [facility] [address] 95546- 8942 29 May, 2016 Essential (primary) hypertension I10 [facility] [address] 09040- 4255 May, Low back pain M54.5 [facility] [id number] [place] [address] 03995- 6213 12 May, 2016 Low back pain M54.5 ; Chronic hepatitis K73.9 and Hypothyroid E03.9 [facility] [id number] [place] [address] 63596- 4990 09 May, 2016 Hypothyroidism, unspecified type E03.9 [facility] [address] 67902- 7238 08 May, 2016 Low back pain M54.5 [facility] [id number] [place] [address] 62858- 9556 07 May, 2016 [facility] [address] 17255- 3651 06 May, 2016 [facility] [id number] [place] [address] 97945- 2434 May, Major depressive disorder, recurrent, moderate F33.1 ; Generalized anxiety disorder F41.1 ; Insomnia G47.00 and ADD (attention deficit disorder) F90.0 [facility] [id number] [place] [address] 18275- 8359 Apr, Low back pain M54.5 [facility] [id number] [place] [address] 62865- 3674 Apr, [facility] [id number] [place] [address] 13180- 8750 Apr, Low back pain M54.5 [facility] [id number] [place] [address] 54158- 6078 Apr, Low back pain M54.5 ; Tooth pain K08.8 and Seasonal allergic rhinitis due to pollen J30.1 [facility] [id number] [place] [address] 14052- 6100 Apr, Low back pain M54.5 [facility] [id number] [place] [address] 24806- 2800 Apr, [facility] Pap smear of vagina R87.622 [place] [address] 39852- 2291 Apr, Low back pain M54.5 [facility] [place] [id number] [place] [address] 11227- 2497 Mar, [place] [address] 31965- 1966 Mar, Low back pain M54.5 [facility] [id number] [place] [address] 69246- 7120 Mar, Encounter for Papanicolaou smear for cervical cancer screening Z12.4 ; Encounter for routine gynecological examination Z01.419 and Breast cancer screening Z12.39 [facility] [id number] [place] [address] 81922- 3539 18 Mar, 2016 Hypothyroidism, unspecified type E03.9 [facility] [id number] [place] [address] 37128- 7916 14 Mar, 2016 Low back pain M54.5 ; Other chronic pain G89.29 ; Hypothyroid E03.9 and Hypothyroidism, unspecified type E03.9 [facility] [address] 38756- 6619 Mar, Major depressive disorder, recurrent, moderate F33.1 and Attention-deficit hyperactivity disorder, predominantly inattentive type F90.0 [facility] [id number] [place] [address] 38461 -7974 Mar, Bronchitis J40 [facility] [address] [address]- 9864 Jan, [facility] [id number] [place] [address] 08878- 4131 Jan, [facility] [address] [place] [address] 94279- 2088 Jan, Insomnia G47.00 [facility] [id number] [place] [address] 94422- 9399 December, [facility] [id number] [place] [address] 95193- 9492 December, Major depressive disorder in partial remission F32.4 and Attention-deficit hyperactivity disorder, unspecified type F90.9 [facility] [id number] [place] [address] 99156- 7282 December, [facility] [id number] [place] [address] 65357- 8769 December, [facility] [address] [place] [address] 19328- 3079 Dec, [facility] [address] [place] [address] 86131- 6637 Dec, Major depressive disorder, recurrent episode, moderate 296.32 and Attention deficit disorder of childhood without mention of hyperactivity 314.00 [facility] [address] [place] [address] 38426- 8624 Dec, Major depressive disorder, recurrent episode, mild 296.31 ; ADD (attention deficit disorder) F90.0 and Hyperlipidemia E78.5 [facility] [id number] [place] [address] 07232- 3439 Dec, Insomnia G47.00 [facility] [address] [address]- 0012 Dec, Attention-deficit hyperactivity disorder, predominantly inattentive type F90.0 [facility] [id number] [address]- 4450 Oct, Restless legs syndrome G25.81 [facility] [id number] [place] [address] 32737- 0209 Oct, Hypothyroidism, unspecified type E03.9 [facility] [address] [address]- 2536 Oct, [facility] [id number] [place] [address] 29004- 0722 16 Nov, 2015 [facility] [id number] [place] [address] 90439- 4531 15 Nov, 2015 Hypothyroid E03.9 and Chronic hepatitis K73.9 [facility] [id number] [place] [address] 13516- 4169 14 Nov, 2015 [facility] [id number] [place] [address] 36797- 1053 08 Nov, 2015 Restless legs syndrome G25.81 ; Chronic hepatitis K73.9 ; Hypertension I10 ; Hypothyroid E03.9 and Breast cancer screening Z12.39 [facility] [address] [place] [address] 94457- 2785 Oct, [facility] [address] [address]- 6922 Oct, [facility] [address] [address]- 0234 Oct, [facility] [id number] [address]- 6247 Oct, [facility] [id number] [place] [address] 67020- 9066 Oct, [facility] [address] [address]- 3226 Oct, [facility] [id number] [place] [address] 39411- 0814 Oct, [facility] [address] [place] [address] 17966- 4252 Sep, [facility] [id number] [place] [address] 12755- 4524 Sep, Attention-deficit hyperactivity disorder, predominantly inattentive type F90.0 and Major depressive disorder in partial remission F32.4 [facility] [id number] [place] [address] 65770- 4822 Sep, [facility] [id number] [place] [address] 65925- 2406 Aug, [facility] [id number] [place] [address] 30102- 5635 Aug, [facility] [id number] [place] [address] 49781- 0525 Aug, Major depressive disorder, recurrent, mild F33.0 ; Attention -deficit hyperactivity disorder, unspecified type F90.9 and Generalized anxiety disorder F41.1 [facility] [id number] [place] [address] 19490- 6696 Aug, Chronic hepatitis K73.9 ; Primary osteoarthritis of both knees M17.0 and Neuralgia M79.2 [facility] [address] [address]- 3137 Jul, [facility] [id number] [place] [address] 09791- 8953 Jul, [facility] [address] [place] [address] 82005- 9183 Jul, [facility] [id number] [place] [address] 00599- 2014 Jul, [facility] [address] [address]- 8846 Jun, [facility] [id number] [place] [address] 33281- 3860 Jun, Bronchitis J40 and Encounter for immunization Z23 [facility] [id number] [place] [address] 38617- 4392 May, [facility] [address] 63349- 8322 May, [facility] [address] [address] May, [facility] [address] [address] May, Hypokalemia 276.8 [facility] [address] [address] 08 May, 2015 Major depressive disorder, recurrent episode, mild 296.31 ; Attention deficit disorder of childhood without mention of hyperactivity 314.00 and Generalized anxiety disorder 300.02 [facility] [address] [address] May, Hypertension 401.9 and Hypokalemia 276.8 [facility] [id number] [place] [address]- [address] May, [facility] [address] [address] Apr, [facility] [id number] [place] [address]- [address] Apr, [facility] [id number] [place] [address] 84551- 1655 Apr, [facility] [id number] [place] [address] 13637- [address]666 Apr, [facility] [address] [address] Mar, [facility] [id number] [place] [address]- [address] Mar, [facility] [address] [address]- [address] Mar, [facility] [address] [id number] [place] [address] 09669- 7613 Mar, [facility] [id number] [place] [address] 957749- 0774 Mar, Arthritis of both knees 716.96 ; Hepatitis B 070.30 ; Hypertension 401.9 ; Carpal tunnel syndrome 354.0 and Cubital tunnel syndrome 354.2 [facility] [id number] [place] [address] 65207- 3579 Mar, [facility] [id number] [place] [address] 55251- 1887 Mar, [facility] [id number] [place] [address] 20805- 6763 Mar, 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, chronic, without mention of hepatitis delta 070.32 ; Chronic hepatitis C without mention of hepatic coma 070.54 and Major depressive disorder, recurrent episode, moderate 296.32 [facility] [id number] [place] [address] 48191- 0267 Jan, [facility] [id number] [place] [address] 29497- 7073 Jan, Major depressive disorder, recurrent episode, mild 296.31 and Attention deficit disorder of childhood without mention of hyperactivity 314.00 [facility] [id number] [place] [address] 55330- 3424 Jan, [facility] [id number] [place] [address] 77091- 8263 Jan, [facility] [id number] [place] [address] 89170- 7738 December, Attention deficit disorder of childhood without mention of hyperactivity 314.00 ; Major depressive disorder, recurrent episode, mild 296.31 and Generalized anxiety disorder 300.02 [facility] [id number] [place] [address] 42480- 7946 December, [facility] [place] [facility] [address] [id number] [place] [address]- 1667 14 Dec, 2014 [facility] [place] [facility] [address] [id number] [place] [address]- 3308 13 Dec, 2014 [facility] [place] [facility] [address] [id number] [place] [address]- 0769 19 Oct, 2014 [facility] [place] [facility] [address] [id number] [place] [address]- 1168 19 Oct, 2014 [facility] [place] [facility] [address] [id number] [place] [address]- 2051 18 Oct, 2014 [facility] [place] [facility] [address] [id number] [place] [address]- 4875 18 Oct, 2014 [facility] [place] [facility] [address] [id number] [place] [address]- 9978 18 Oct, 2014 [facility] [place] [facility] [address] [id number] [place] [address]- 4995 18 Oct, 2014 [facility] [place] [facility] [address] [id number] [place] [address]- 9424 16 Oct, 2014 [facility] [place] [facility] [address] [id number] [place] [address]- 4842 13 Oct, 2014 [facility] [place] [facility] [address] [id number] [place] [address]- 1535 13 Oct, 2014 [facility] [place] [facility] [address] [id number] [place] [address]- 7501 12 Oct, 2014 [facility] [place] [facility] [address] [id number] [place] [address]- 2277 12 Oct, 2014 [facility] [place] [facility] [address] [id number] [place] [address]- 9884 10 Oct, 2014 [facility] [place] [facility] [address] [id number] [place] [address]- 5356 10 Oct, 2014 [facility] [place] [facility] [address] [id number] [place] [address]- 8671 Oct, 2014 [facility] [place] [facility] [address] [facility] [id number] [place] [address]- 1502 Oct, [facility] [place] [facility] [address] [facility] [id number] [place] [address]- 1676 Oct, 2014 [facility] [place] [facility] [address] [facility] [id number] [place] [address]- 4956 Oct, 2014 [facility] [place] [facility] [address] [facility] [id number] [place] [address]- 2428 Oct, 2014 [facility] [place] [facility] [address] [facility] [id number] [place] [address]- 4576 Oct, 2014 [facility] [place] [facility] [address] [facility] [id number] [place] [address]- 2206 18 Oct, 2014 [facility] [place] [facility] [address] [facility] [id number] [place] [address]- 8039 Oct, 2014 [facility] [place] [facility] [address] [facility] [id number] [place] [address]- 2542 Oct, 2014 [facility] [place] [facility] [address] [facility] [id number] [place] [address]- 4421 Oct, 2014 [facility] [place] [facility] [address] [facility] [id number] [place] [address]- 2118 Oct, 2014 [facility] [place] [facility] [address] [facility] [id number] [place] [address] 2546 Oct, 2014 [facility] [place] [facility] [address] [facility] [id number] [place] [address]- 2548 Oct, 2014 [facility] [place] [facility] [address] [facility] [id number] [place] [address]- 5246 Oct, 2014 [facility] [place] [facility] [address] [facility] [id number] [place] [address]- 254 Oct, 2014 [facility] [place] [facility] [address] [facility] [id number] [place] [address]- 8094 Sep, [facility] [place] [facility] [address] [id number] [place] [address]- 9051 Sep, [facility] [place] [facility] [address] [id number] [place] [address]- 4475 Sep, [facility] [place] [facility] [address] [id number] [place] [address]- 0339 Sep, [facility] [place] [facility] [address] [id number] [place] [address]- 1428 Sep, [facility] [place] [facility] [address] [id number] [place] [address]- 6959 Sep, [facility] [place] [facility] [address] [id number] [place] [address]- 3336 Sep, [facility] [place] [facility] [address] [id number] [place] [address]- 5751 Sep, [facility] [place] [facility] [address] [id number] [place] [address]- 6536 Sep, [facility] [place] [facility] [address] [id number] [place] [address]- 9103 Sep, [facility] [place] [facility] [address] [id number] [place] [address]- 8774 Sep, [facility] [place] [facility] [address] [id number] [place] [address]- 1439 Sep, [facility] [place] [facility] [address] [id number] [address]- 5491 Sep, [facility] [place] [facility] [address] [id number] [place] [address]- 4897 Sep, [facility] [place] [facility] [address] [id number] [place] [address]- 3701 Sep, [facility] [place] [facility] [address] [id number] [place] [address]- 2234 Sep, [facility] [place] [facility] [address] [id number] [place] [address]- 9182 Aug, [facility] [place] [facility] [address] [id number] [place] [address]- 2136 Aug, [facility] [place] [facility] [address] [id number] [place] [address]- 3766 Aug, [facility] [place] [facility] [address] [id number] [place] [address]- 7776 Aug, [facility] [place] [facility] [address] [id number] [place] [address]- 2416 Aug, [facility] [place] [facility] [address] [id number] [place] [address]- 5644 Aug, [facility] [place] [facility] [address] [id number] [place] [address]- 5645 Aug, [facility] [place] [facility] [address] [id number] [place] [address]- 2736 20 Aug, 2014 [facility] [place] [facility] [address] [id number] [place] [address]- 3731 19 Aug, 2014 [facility] [place] [facility] [address] [id number] [place] [address]- 3362 18 Aug, 2014 [facility] [place] [facility] [address] [id number] [place] [address]- 9631 18 Aug, 2014 [facility] [place] [facility] [address] [id number] [place] [address]- 2753 16 Aug, 2014 [facility] [place] [facility] [address] [id number] [place] [address]- 3007 16 Aug, 2014 [facility] [place] [facility] [address] [id number] [place] [address]- 0725 15 Aug, 2014 [facility] [place] [facility] [address] [id number] [place] [address]- 2662 15 Aug, 2014 [facility] [place] [facility] [address] [id number] [place] [address]- 9271 10 Aug, 2014 [facility] [place] [facility] [address] [id number] [place] [address]- 7795 Aug, [facility] [place] [facility] [address] [id number] [place] [address]- 2232 Aug, [facility] [place] [facility] [address] [id number] [place] [address]- 1329 Aug, [facility] [place] [facility] [address] [id number] [place] [address]- 1749 Aug, [facility] [place] [facility] [address] [id number] [place] [address]- 7754 Aug, [facility] [place] [facility] [address] [id number] [place] [address]- 3864 Aug, [facility] [place] [facility] [address] [id number] [place] [address]- 9410 Aug, [facility] [place] [facility] [address] [id number] [place] [address]- 0729 Aug, [facility] [place] [facility] [address] [id number] [place] [address]- 4240 Aug, [facility] [place] [facility] [address] [id number] [place] [address]- 7997 Jul, [facility] [place] [facility] [address] [id number] [place] [address]- 8818 Jul, [facility] [place] [facility] [address] [id number] [place] [address]- 8193 Jul, [facility] [place] [facility] [address] [id number] [place] [address]- 8840 Jul, [facility] [place] [facility] [address] [id number] [place] [address]- 8130 Jul, [facility] [place] [facility] [address] [id number] [place] [address]- 7136 Jul, [facility] [place] [facility] [address] [id number] [place] [address]- 0211 Jun, [facility] [place] [facility] [address] [id number] [place] [address]- 1115 Jun, [facility] [place] [facility] [address] [id number] [place] [address]- 2074 Jun, [facility] [place] [facility] [address] [id number] [place] [address]- 6745 Jun, [facility] [place] [facility] [address] [id number] [place] [address]- 8001 Jun, [facility] [place] [facility] [address] [id number] [place] [address]- 1767 Jun, [facility] [place] [facility] [address] [id number] [place] [address]- 8798 Jun, [facility] [place] [facility] [address] [id number] [place] [address]- 2719 Jun, [facility] [place] [facility] [address] [id number] [address]- 2364 16 May, 2013 [facility] [place] [facility] [address] [id number] [place] [address]- 1132 16 Sep, 2013 [facility] [place] [facility] [address] [id number] [address]- 9284 15 May, 2013 [facility] [place] [facility] [address] [id number] [address]- 1827 15 Sep, 2013 [facility] [place] [facility] [address] [id number] [address]- 8997 08 Sep, 2013 [facility] [place] [facility] [address] [id number] [address]- 3306 08 Sep, 2013 [facility] [place] [facility] [address] [id number] [place] [address]- 7130 08 Sep, 2013 [facility] [place] [facility] [address] [id number] [address]- 2140 08 Sep, 2013 [facility] [place] [facility] [address] [id number] [place] [address]- 4627 Apr, [facility] [place] [facility] [address] [id number] [facility] [place] [address]- 3608 Apr, [facility] [place] [facility] [address] [id number] [place] [address]- 9742 Apr, [facility] [place] [facility] [address] [id number] [place] [address]- 2048 Apr, [facility] [place] [facility] [address] [id number] [place] [address]- 3200 Apr, [facility] [place] [facility] [address] [id number] [place] [address]- 2066 Apr, [facility] [place] [facility] [address] [id number] [place] [address]- 7434 Apr, [facility] [place] [facility] [address] [id number] [place] [address]- 1054 Apr, [facility] [place] [facility] [address] [id number] [place] [address]- 9413 Apr, [facility] [place] [facility] [address] [id number] [place] [address]- 2431 Apr, [facility] [place] [facility] [address] [id number] [place] [address]- 0682 Apr, [facility] [place] [facility] [address] [id number] [place] [address]- 9153 Apr, [facility] [place] [facility] [address] [id number] [place] [address]- 9827 Apr, [facility] [place] [facility] [address] [id number] [place] [address]- 6592 Mar, [facility] [place] [facility] [address] [id number] [place] [address]- 8406 Mar, [facility] [place] [facility] [address] [id number] [place] [address]- 0092 Mar, [facility] [place] [facility] [address] [id number] [place] [address]- 6648 Mar, [facility] [place] [facility] [address] [id number] [place] [address]- 6815 Jan, [facility] [place] [facility] [address] [id number] [place] [address]- 3326 Jan, [facility] [place] [facility] [address] [id number] [place] [address]- 6278 December, [facility] [place] [facility] [address] [id number] [place] [address]- 8624 December, [facility] [place] [facility] [address] [id number] [place] [address]- 0081 December, [facility] [place] [facility] [address] [id number] [place] [address]- 0467 December, [facility] [place] [facility] [address] [id number] [place] [address]- 9613 December, [facility] [place] [facility] [address] [id number] [place] [address]- 1162 December, [facility] [place] [facility] [address] [id number] [place] [address]- 0260 December, [facility] [place] [facility] [address] [id number] [place] [address]- 3629 December, [facility] [place] [facility] [address] [id number] [place] [address]- 0061 Dec, [facility] [place] [facility] [address] [id number] [place] [address]- 0978 Dec, [facility] [place] [facility] [address] [id number] [place] [address]- 7300 Dec, [facility] [place] [facility] [address] [id number] [place] [address]- 1199 Dec, [facility] [place] [facility] [address] [id number] [place] [address]- 9886 Oct, [facility] [place] [facility] [address] [id number] [place] [address]- 6725 Oct, [facility] [place] [facility] [address] [id number] [place] [address]- 1063 Oct, [facility] [place] [facility] [address] [facility] [id number] [place] [address]- 1550 Oct, [facility] [place] [facility] [address] [id number] [place] [address]- 2704 Oct, [facility] [place] [facility] [address] [id number] [place] [address]- 8255 Oct, [facility] [place] [facility] [address] [facility] [id number] [place] [address]- 2976 Oct, [facility] [place] [facility] [address] [facility] [id number] [place] [address]- 8915 Oct, [facility] [place] [facility] [address] [facility] [id number] [place] [address]- 2516 Oct, [facility] [place] [facility] [address] [facility] [id number] [place] [address]- 8332 Oct, [facility] [place] [facility] [address] [facility] [id number] [place] [address]- 3355 Oct, [facility] [place] [facility] [address] [facility] [id number] [place] [address]- 9140 Oct, [facility] [place] [facility] [address] [facility] [id number] [place] [address]- 2192 Oct, [facility] [place] [facility] [address] [id number] [place] [address]- 6191 Oct, [facility] [place] [facility] [address] [facility] [id number] [place] [address]- 0576 Oct, [facility] [place] [facility] [address] [facility] [id number] [place] [address]- 2023 Oct, [facility] [place] [facility] [address] [id number] [place] [address]- 5899 Oct, [facility] [place] [facility] [address] [id number] [place] [address]- 4354 Oct, [facility] [place] [facility] [address] [id number] [place] [address]- 9495 Oct, [facility] [place] [facility] [address] [id number] [place] [address]- 1556 Oct, [facility] [place] [facility] [address] [id number] [place] [address]- 3396 Oct, [facility] [place] [facility] [address] [id number] [place] [address]- 7525 Oct, [facility] [place] [facility] [address] [id number] [place] [address]- 7206 Sep, [facility] [place] [facility] [address] [id number] [place] [address]- 7405 Sep, [facility] [place] [facility] [address] [id number] [place] [address]- 8922 Sep, [facility] [place] [facility] [address] [id number] [place] [address]- 6224 Sep, [facility] [place] [facility] [address] [id number] [place] [address]- 9412 Aug, [facility] [place] [facility] [address] [id number] [place] [address]- 2799 Aug, [facility] [place] [facility] [address] [id number] [place] [address]- 2439 Aug, [facility] [place] [facility] [address] [id number] [place] [address]- 1835 Aug, [facility] [place] [facility] [address] [id number] [place] [address]- 0517 Aug, [facility] [place] [facility] [address] [id number] [place] [address]- 7415 Aug, [facility] [address] [id number] [place] [address]- 9201 Aug, [facility] [place] [facility] [address] [id number] [place]10 Aug, [facility] [place] [facility] [address] [id number] [place] 6898 Aug, [facility] [place] [facility] [address] [id number] [place] [address]- 7169 Jul, [facility] [place] [facility] [address] [id number] [place] [address]- 3657 Jul, [facility] [place] [facility] [address] [id number] [place] [address]- 0624 Jul, [facility] [place] [facility] [address] [id number] [place] [address]- 5487 Jul, [facility] [place] [facility] [address] [id number] [place] [address]- 9941 Jul, [facility] [place] [facility] [address] [id number] [place] [address]- 3000 Jul, [facility] [place] [facility] [address] [facility] [id number] [place] [address]- 6038 Jul, [facility] [place] [facility] [address] [id number] [place] [address]- 6985 Jul, [facility] [place] [facility] [address] [id number] [place] [address]- 0629 Jun, [facility] [place] [facility] [address] [id number] [place] [address]- 5718 Jun, [facility] [place] [facility] [address] [id number] [place] [address]- 3736 Jun, [facility] [place] [facility] [address] [id number] [place] [address]- 7574 Jun, [facility] [place] [facility] [address] [id number] [place] [address]- 1035 Jun, [facility] [place] [facility] [address] [id number] [place] [address]- 9845 Jun, [facility] [place] [facility] [address] [id number] [place] [address]- 1480 Jun, [facility] [place] [facility] [address] [id number] [place] [address]- 0255 Jun, [facility] [place] [facility] [address] [id number] [place] [address]- 7377 30 May, 2013 [facility] [place] [facility] [address] [id number] [place] [address]- 0076 26 May, 2013 [facility] [place] [facility] [address] [id number] [place] [address]- 7377 23 May, 2013 [facility] [place] [facility] [address] [id number] [place] [address]- [address] 19 May, 2013 [facility] [place] [facility] [address] [id number] [place] [address] 12 May, 2013 [facility] [place] [facility] [address] [id number] [place] [address] May, [facility] [place] [facility] [address] [id number] [place] [address] Apr, [facility] [place] [facility] [address] [id number] [place] [address] Apr, [facility] [place] [facility] [address] [id number] [place] [address] Apr, [facility] [place] [facility] [address] [id number] [place] [address] Apr, [facility] [place] [facility] [address] [id number] [place] [address] Apr, [facility] [place] [facility] [address] [id number] [place] [address] Apr, [facility] [place] [facility] [address] [id number] [place] [address] Apr, [facility] [place] [facility] [address] [id number] [place] [address] Mar, [facility] [place] [facility] [address] [id number] [place] [address] Mar, [facility] [place] [facility] [address] [id number] [place] [address]40 Mar, [facility] [place] [facility] [address] [id number] [place] [address] Mar, [facility] [place] [facility] [address] [id number] [place] [address] Mar, [facility] [place] [facility] [address] [id number] [place] [address]52 Mar, [facility] [place] [facility] [address] [id number] [place] [address] Mar, [facility] [place] [facility] [address] [id number] [place] [address] Jan, [facility] [place] [facility] [address] [id number] [place] [address]- [address] Jan, [facility] [place] [facility] [address] [id number] [place] [address]- [address] Jan, [facility] [place] [facility] [address] [id number] [place] [address]- [address] Jan, [facility] [place] [facility] [address] [id number] [place] [address] Jan, [facility] [place] [facility] [address] [id number] [place] [address]- [address] Jan, [facility] [place] [facility] [address] [id number] [place] [address] Jan, [facility] [place] [facility] [address] [id number] [place] [address]- [address] December, [facility] [address] [id number] [place] [address] December, [facility] [address] [id number] [place] [address] 74[address] December, [facility] [address] [id number] [place] [address] December, [facility] [address] [id number] [place] [address] 30 Dec, 2012 [facility] [address] [id number] [place] [address] Dec, [facility] [address] [id number] [place] [address]60 Dec, [facility] [address] [id number] [place] [address] Oct, [facility] [address] [id number] [place] [address]38 Oct, [facility] [address] [id number] [place] [address] Oct, [facility] [address] [id number] [place] [address] Oct, [facility] [address] [id number] [place] [address] Oct, [facility] [address] [id number] [place] [address]85 Oct, [facility] [address] [id number] [place] [address]995 Oct, [facility] [address] [id number] [place] [address] Oct, [facility] [address] [id number] [place] [address] Oct, [facility] [address] [id number] [place] [address] 08 Oct, 2012 [facility] [place] [facility] [address] [id number] [place] [address] 97[address] Oct, [facility] [place] [facility] [address] [id number] [place] [address]- 69[address] Sep, [facility] [place] [facility] [address] [id number] [place] [address] Sep, [facility] [place] [facility] [address] [id number] [place] [address]- [address]361 Sep, [facility] [place] [facility] [address] [id number] [place] [address]- 3070 Aug, [facility] [place] [facility] [address] [facility] [id number] [place] [address]48 Aug, [facility] [place] [facility] [address] [id number] [address] Aug, [facility] [place] [facility] [address] [id number] [place] [address] Aug, [facility] [place] [facility] [address] [facility] [id number] [place] [address] Jul, [facility] [place] [facility] [address] [facility] [id number] [address] Jul, [facility] [place] [facility] [address] [id number] [address] Jul, [facility] [place] [facility] [address] [id number] [place] [address]- 46[address] Jul, [facility] [place] [facility] [address] [id number] [place] [address]- 280[address] Jul, [facility] [place] [facility] [address] [facility] [id number] [place] [address]643 Jul, [facility] [place] [facility] [address] [id number] [place] [address]331 Jul, [facility] [place] [facility] [address] [id number] [place] [address] 5839 Jul, [facility] [place] [facility] [address] [id number] [place] [address] 9756 Jun, [facility] [place] [facility] [address] [id number] [place] [address]- [address] Jun, [facility] [place] [facility] [address] [id number] [place] [address]127 Jun, [facility] [place] [facility] [address] [id number] [place] [address] Jun, [facility] [place] [facility] [address] [id number] [place] [address]- 4714 Jun, [facility] [place] [facility] [address] [id number] [place] [address]- 6720 26 May, 2012 [facility] [place] [facility] [address] [id number] [place] [address]- 6581 20 May, 2012 [facility] [place] [facility] [address] [id number] [place] [id number] 18 May, 2012 [facility] [place] [facility] [address] [id number] [place] [address] 09 May, 2012 [facility] [place] [facility] [address] [id number] [place] [address] 04 May, 2012 [facility] [place] [facility] [address] [id number] [place] [address] 30 Apr, 2012 [facility] [place] [facility] [address] [id number] [place] [address] 29 Apr, 2012 [facility] [place] [facility] [address] [id number] [place] [address] Apr, [facility] [place] [facility] [address] [id number] [place] [address] 15 Apr, 2012 [facility] [place] [facility] [address] [id number] [place] [address] Apr, [facility] [place] [facility] [address] [id number] [place] [address] Apr, [facility] [place] [facility] [address] [id number] [place] [address] Apr, [facility] [place] [facility] [address] [id number] [place] [address] Mar, [facility] [place] [facility] [address] [id number] [place] [address] Mar, [facility] [place] [facility] [address] [id number] [place] [address] Mar, [facility] [place] [facility] [address] [id number] [place] [address]761 Mar, [facility] [place] [facility] [address] [id number] [place] [address] Jan, [facility] [place] [facility] [address] [id number] [place] [address] Jan, [facility] [place] [facility] [address] [id number] [place] [address] Jan, [facility] [place] [facility] [address] [id number] [place] [address] Jan, [facility] [place] [facility] [address] [id number] [place] [address]- [address] Jan, [facility] [place] [facility] [address] [id number] [place] [address] Jan, [facility] [place] [facility] [address] [id number] [place] [address] December, [facility] [place] [facility] [address] [id number] [place] [address]- [address] December, [facility] [place] [facility] [address] [id number] [place] [address]- 118[address] December, [facility] [place] [facility] [address] [id number] [place] [address] December, [facility] [place] [facility] [address] [id number] [place] [address]6 Dec, [facility] [place] [facility] [address] [id number] [place] [address] Dec, [facility] [place] [facility] [address] [id number] [place] [address] 30 Nov, 2011 [facility] [place] [facility] [address] [id number] [place] [address] Oct, [facility] [place] [facility] [address] [id number] [place] [address] Oct, [facility] [place] [facility] [address] [id number] [place] [address] Oct, [facility] [place] [facility] [address] [id number] [place] [address] Oct, [facility] [place] [facility] [address] [id number] [place] [address]- 8074 Oct, [facility] [place] [facility] [address] [id number] [place] [address] 9968 Oct, [facility] [place] [facility] [address] [id number] [place] [address] Oct, [facility] [place] [facility] [address] [id number] [place] [address]- [address]247 Oct, [facility] [place] [facility] [address] [id number] [place] [address]- 5624 Oct, [facility] [place] [facility] [address] [id number] [place] [address] Oct, [facility] [place] [facility] [address] [id number] [place] [address] Sep, [facility] [place] [facility] [address] [id number] [place] [address]- [address] Sep, [facility] [address] [id number] [place] [address] Sep, [facility] [place] [facility] [address] [id number] [place] [address] 59[address] Sep, [facility] [address] [id number] [place] [address]- [address] Sep, [facility] [place] [facility] [address] [id number] [place] [address] Sep, [facility] [address] [id number] [place] [address]- [address]145 Sep, [facility] [address] [id number] [place] [address] Sep, [facility] [address] [id number] [place] [address]- [address]28 Aug, [facility] [address] [id number] [place] [address] 6064 Aug, [facility] [address] [id number] [place] [address] 3501 Aug, [facility] [address] [id number] [place] [address]697 Jul, [facility] [place] [facility] [address] [id number] [place] [address] Jul, [facility] [place] [facility] [address] [id number] [place] [address] 8064 Jul[facility] [place] [facility] [address] [id number] [place] [address]- 5484 Jul, [facility] [place] [facility] [address] [id number] [place] [address]- 2546 Jul, [facility] [place] [facility] [address] [id number] [place] [address]- 4265 Jul, [facility] [place] [facility] [address] [id number] [place] [address] 2740 31 Jun, 2011 [facility] [place] [facility] [address] [id number] [place] [address]- [address]249 Jun, [facility] [place] [facility] [address] [id number] [place] [address] 8134 Mar, [facility] [place] [facility] [address] [id number] [place] [address] 7933 14 Dec, 2010 [facility] [place] [facility] [address] [id number] [place] [address] 4703 Oct, [facility] [place] [facility] [address] [id number] [place] [address]- 9885 06 Aug, 2010 [facility] [place] [facility] [address] [id number] [place] [address]- 3049 30 Jul, 2010 [facility] [place] [facility] [address] [id number] [place] [address]- 9239 Jul, [facility] [place] [facility] [address] [id number] [place] [address]- 6461 Jul, [facility] [place] [facility] [address] [id number] [place] [address]- 480[address] Jul, [facility] [place] [facility] [address] [id number] [place] [address]- 2275 Jul, [facility] [place] [facility] [address] [id number] [address] 22 Aug, 2009 [facility] [place] [facility] [address] [id number] [place] [address]- 0798 15 Aug, 2009 [facility] [place] [facility] [address] [id number] [place] [address]- 7690 14 Aug, 2009 [facility] [place] [facility] [address] [id number] [place] [address]- 9915 07 Aug, 2009 [facility] [place] [facility] [address] [facility] [id number] [place] [id number] Jul, [facility] [address] [id number] [address] Jul, [facility] [address] [id number] [address] Jul, [facility] [address] [facility] [id number] [address] Jul, [facility] [address] [id number] [address] Jun, [facility] [address] [facility] [id number] [address] Jun, IMMUNIZATIONS No Known Immunizations SOCIAL HISTORY Never Assessed REASON FOR VISIT ATS-Brief PLAN OF CARE VITAL SIGNS MEDICATIONS Unknown Medications RESULTS No Results PROCEDURES Procedure Date Ordered Result Body Site Alcohol and/or drug services March 06, 2017 INSTRUCTIONS MEDICATIONS ADMINISTERED No Known [...]
--- OUTSIDE RECORDS SUMMARY | 2018-03-17 11:42 | XMS REPORT ---
Author Author 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 Organization [facility] Address [address] [place] [address] Care Team Providers Care Director Corporate Compliance Name Role Phone 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 Unavailable PROBLEMS Type Condition ICD9-CM Code IVF11-PT Code Onset Dates Condition Status SNOMED Code Problem Hyperinsulinemia E16.1 Active 11190501 Problem Attention-deficit hyperactivity disorder, predominantly inattentive type F90.0 Active 20669905 Problem Obstructive sleep apnea G47.33 Active 94346606 Problem Primary insomnia F51.01 Active 4495247 Problem Neuralgia M79.2 Active 03934467 Problem Cannabis use disorder, mild, abuse F12.10 Active 06789241 Problem Folic acid deficiency E53.8 Active 521736474 Problem Restless legs G25.81 Active 61474856 Problem Major depressive disorder, recurrent, mild F33.0 Active 99044167 Problem Generalized anxiety disorder F41.1 Active 99556024 Problem Major depressive disorder, recurrent episode, moderate F33.1 Active 577957456 Problem Hypertension I10 Active 11143709 Problem Hyperlipidemia E78.5 Active 04248585 Problem Primary osteoarthritis of both knees M17.0 Active 834336473 Problem Chronic hepatitis K73.9 Active 70871555 Problem Low back pain M54.5 Active 636492784 Problem Chronic viral hepatitis B without delta-agent B18.1 Active 115531168 Problem Insomnia G47.00 Active 582756560 Problem Hypothyroid E03.9 Active 71665327 Problem Depression, major, recurrent, mild F33.0 Active 295153113 Problem Obesity due to excess calories, unspecified obesity severity E66.09 Active 159347341 ALLERGIES No Information ENCOUNTERS Encounter Location Date Diagnosis [facility] [address] [facility] [id number] [address] December, [facility] [address] [facility] [id number] [address] Dec, Bone pain M89.8X9 [facility] [id number] [place] [address] 81484- 9767 Dec, [facility] [id number] [place] [address] 26461- 1194 Oct, [facility] [id number] [place] [address] 87843- 7480 Oct, Syncope, unspecified syncope type R55 ; Primary insomnia F51.01 ; Dry mouth R68.2 and Cannabis use disorder, mild, abuse F12.10 [facility] [id number] [place] [address] 94137- 8128 Oct, [facility] [id number] [place] [address] 01149- 7059 Sep, [facility] [id number] [place] [address] 76564- 1418 Sep, [facility] [id number] [place] [address] 37659- 0771 Sep, [facility] [address] [id number] Sep, Dental examination Z01.20 [facility] [id number] [place] [address] 84042- 6879 Sep, Dental examination Z01.20 [facility] [id number] [place] [address] 11697- 9176 Sep, Sinus congestion R09.81 ; Mouth sores K13.79 ; Low back pain M54.5 and Mouth swelling R22.0 [facility] [id number] [place] [address] 51830- 7664 Aug, Low back pain M54.5 [facility] [id number] [place] [address] 52313- 3125 Aug, Low back pain M54.5 [facility] [id number] [place] [address] 72643- 6867 Jul, [facility] [address] 41684- 8879 Jul, Encounter for immunization Z23 ; Hyperinsulinemia E16.1 ; Hypothyroid E03.9 ; Decreased renal function N28.9 and Muscle cramps R25.2 [facility] [address] 92207- 6718 Jul, [facility] [address] 77179- 8703 Jul, [facility] [facility] [address] 06451- 2933 Jul, [place] [address] 12901- 4409 Jul, Major depressive disorder, recurrent, mild F33.0 [facility] [facility] [address] 71071- 7645 Jul, Acquired cyst of kidney N28.1 ; Acidosis E87.2 and Hyperkalemia E87.5 [facility] [facility] [address] 96205- 9098 Jul, Major depressive disorder, recurrent, mild F33.0 ; Attention -deficit hyperactivity disorder, predominantly inattentive type F90.0 and Generalized anxiety disorder F41.1 [facility] [address] 44704- 5377 Jul, Low back pain M54.5 [facility] [address] 72922- 7359 Jun, Cough R05 ; Low back pain M54.5 and Pre-syncope R55 [facility] [address] 51025- 7189 Jun, Low back pain M54.5 [facility] [id number] [place] [address] [id number] Jun, Dental caries K02.9 [facility] [place] [address] 45296- 5695 Jun, [place] [address] [place] 951048- 4271 Jun, Major depressive disorder, recurrent, mild F33.0 ; Attention -deficit hyperactivity disorder, predominantly inattentive type F90.0 and Generalized anxiety disorder F41.1 [facility] [address] 83208- 4558 May, Vertigo R42 ; Confusion R41.0 ; Weakness R53.1 and Vision changes H53.9 [facility] [address] 62901- 1640 May, [facility] [facility] [address] 98860- 4374 May, [facility] [address] 54420- 0876 May, Low back pain M54.5 [facility] [id number] [place] [address] 03740- 7703 May, Major depressive disorder, recurrent, mild F33.0 ; Attention -deficit hyperactivity disorder, predominantly inattentive type F90.0 and Generalized anxiety disorder F41.1 [facility] [id number] [place] [address] 00248- 3218 May, [facility] [address] 80124- 5439 May, Acute worsening of stage 3 chronic kidney disease N18.3 [facility] [address] 69633- 8340 Apr, [place] [address] 97794- 7744 Apr, Acute allergic rhinitis due to pollen, unspecified seasonality J30.1 ; Restless legs G25.81 and Low back pain M54.5 [facility] [address] [address]- 7930 10 Apr, 2017 Primary osteoarthritis of both knees M17.0 [facility] [id number] [place] [address] 70390- 4766 08 Apr, 2017 Generalized anxiety disorder F41.1 [facility] [id number] [place] [address] 27771- 5265 07 Apr, 2017 Major depressive disorder, recurrent, mild F33.0 ; Attention -deficit hyperactivity disorder, predominantly inattentive type F90.0 and Generalized anxiety disorder F41.1 [facility] [id number] [place] [address] 79764- 6166 Apr, [facility] [id number] [place] [address] 46790- 6525 Mar, Major depressive disorder, recurrent episode, moderate F33.1 ; Generalized anxiety disorder F41.1 and ADHD, predominantly inattentive type F90.0 [facility] [id number] [place] [address] 83234 -0127 Mar, Abscess L02.91 [facility] [id number] [place] [address] 03449- 8830 Mar, Hyperinsulinemia E16.1 [facility] [id number] [place] [address] 20794- 9007 Mar, Decreased renal function N28.9 [facility] [id number] [place] [address] [id number] Mar, Dental examination Z01.20 [facility] [id number] [place] [address] 72445- 9891 17 Mar, 2017 Hyperinsulinemia E16.1 [facility] [id number] [place] [address] 20197- 5822 Mar, Hyperinsulinemia E16.1 [facility] [id number] [place] [address] [phone] Mar, Dental examination Z01.20 and Dental caries K02.9 [place] [address] [address]- 9819 12 Mar, 2017 Chronic viral hepatitis B without delta-agent B18.1 ; Folic acid deficiency E53.8 ; Hyperinsulinemia E16.1 and Decreased renal function N28.9 [facility] [address] [address]- 8278 Mar, Major depressive disorder, recurrent, mild F33.0 [facility] [id number] [place] [address] 75641- 8548 Mar, [facility] [id number] [place] [address] 59098- 6229 Mar, Chronic hepatitis K73.9 ; Hyperinsulinemia E16.1 ; Localized edema R60.0 ; Illicit drug use F19.90 ; Vision changes H53.9 and Obesity due to excess calories, unspecified obesity severity E66.09 [place] [id number] [place] [address] 23058- 8641 Jan, Major depressive disorder, recurrent, mild F33.0 [facility] [id number] [place] [address] 63632- 8065 Jan, Chronic viral hepatitis B without delta-agent B18.1 [facility] [id number] [place] [address] 94542- 8971 Jan, [facility] [facility] [id number] [place] [address] 46700- 4759 Jan, Weight gain R63.5 ; Hypothyroid E03.9 ; Hyperinsulinemia E16.1 ; Decreased renal function N28.9 and Chronic viral hepatitis B without delta-agent B18.1 [facility] [id number] [place] [address] 64074- 3357 December, Major depressive disorder, recurrent, mild F33.0 and Generalized anxiety disorder F41.1 [place] [id number] [place] [address] 32221- 8108 December, Obesity due to excess calories, unspecified obesity severity E66.09 and Folic acid deficiency E53.8 [facility] [address] [address]- 8892 December, Folic acid deficiency E53.8 [facility] [id number] [place] [address] 17355- 6744 December, Folic acid deficiency E53.8 [facility] [id number] [place] [address] 36426- 3627 December, Obesity due to excess calories, unspecified obesity severity E66.09 [facility] [id number] [place] [address] 96194- 6131 December, [facility] [id number] [place] [address] 01028- 5822 December, Folic acid deficiency E53.8 [facility] [id number] [place] [address] [id number] December, Encounter for other administrative examinations Z02.89 [facility] [id number] [place] [address] 56339- 7520 Dec, [facility] [id number] [place] [address] [id number] Dec, Dental caries K02.9 [facility] [id number] [place] [address] 66789- 2135 Oct, Bone pain M89.8X9 [facility] [id number] [place] [address] 96565- 9063 Oct, Hypothyroid E03.9 [facility] [id number] [place] [address] 73289- 0949 24 Oct, 2016 Hypothyroid E03.9 [facility] [id number] [place] [address] 34572- 9660 13 Oct, 2016 Breast cancer screening Z12.39 [facility] [id number] [place] [address] [id number] Oct, Dental examination Z01.20 [facility] [id number] [place] [address] 25382- 0860 Oct, [place] [id number] [place] [address] 06711- 8028 Oct, Major depressive disorder, recurrent, mild F33.0 and Generalized anxiety disorder F41.1 [facility] [facility] [id number] [place] [address] 81122- 0086 Oct, [place] [id number] [place] [address] 16935- 8770 Oct, Hypothyroid E03.9 [place] [address] 10151- 1979 Sep, Hypothyroid E03.9 ; Chronic viral hepatitis B without delta- agent B18.1 and Folic acid deficiency E53.8 [place] [id number] [place] [address] 54627- 4310 Sep, Hypothyroidism, unspecified type E03.9 ; Elevated parathyroid hormone E34.9 and Chronic viral hepatitis B without delta-agent B18.1 [facility] [id number] [place] [address] 70746- 8595 Sep, [facility] [id number] [place] [address] 50409- 9940 Sep, Elevated parathyroid hormone E34.9 [facility] [facility] [id number] [place] [address] 66482- 8560 Sep, [facility] [id number] [place] [address] 73968- 5396 Sep, Chronic hepatitis K73.9 ; Bone pain M89.8X9 and Abnormal complete blood count R79.89 [facility] [id number] [place] [address] 75787- 6804 Aug, Major depressive disorder, recurrent, mild F33.0 [place] [address] [place] [address]- 7549 Aug, Bone pain M89.8X9 [facility] [address] 85043- 2050 Aug, [facility] [id number] [place] [address] 85741- 4905 Jul, Chronic viral hepatitis B without delta-agent B18.1 [facility] [address] 55695- 2584 Jul, Hypothyroidism, unspecified type E03.9 [facility] [address] 15152- 1124 Jul, [facility] [address] 33059- 9715 Jul, Chronic hepatitis K73.9 and Hypothyroid E03.9 [place] [address] 22089- 4845 Jul, Low back pain M54.5 [facility] [address] 46551- 8325 Jun, Depression, major, recurrent, mild F33.0 and ADD (attention deficit disorder) F90.0 [facility] [id number] [place] [address] 83099- 1658 Jun, [facility] [address] 53198- 6997 Jun, Low back pain M54.5 [facility] [id number] [place] [address] 21337- 7183 Jun, Encounter for immunization Z23 ; Major depressive disorder, recurrent, mild F33.0 and Attention-deficit hyperactivity disorder, predominantly inattentive type F90.0 [facility] [id number] [place] [address] 31593- 2997 Jun, [facility] [address] 64342- 7110 Jun, Low back pain M54.5 [facility] [id number] [place] [address] 09997- 8116 May, [facility] [id number] [place] [address] 21755- 2775 May, [facility] [id number] [place] [address] 01905- 9450 May, Essential (primary) hypertension I10 [facility] [id number] [place] [address] 42500- 4960 May, Low back pain M54.5 [facility] [id number] [place] [address] 09026- 8052 May, Low back pain M54.5 ; Chronic hepatitis K73.9 and Hypothyroid E03.9 [facility] [id number] [place] [address] 94086- 1618 May, Hypothyroidism, unspecified type E03.9 [facility] [id number] [place] [address] 03113- 9737 08 May, 2016 Low back pain M54.5 [facility] [id number] [place] [address] 58057- 9196 May, [facility] [id number] [place] [address] 29975- 2873 May, [facility] [id number] [place] [address] 21758- 7136 May, Major depressive disorder, recurrent, moderate F33.1 ; Generalized anxiety disorder F41.1 ; Insomnia G47.00 and ADD (attention deficit disorder) F90.0 [facility] [id number] [place] [address] 77657- 0034 Apr, Low back pain M54.5 [facility] [id number] [place] [address] 05057- 3843 Apr, [place] [id number] [place] [address] 46355- 3665 Apr, Low back pain M54.5 [place] [id number] [place] [address] 21351- 6255 Apr, Low back pain M54.5 ; Tooth pain K08.8 and Seasonal allergic rhinitis due to pollen J30.1 [place] [id number] [place] [address] 89321- 3454 Apr, Low back pain M54.5 [facility] [id number] [place] [address] 18820- 4347 Apr, [facility]GS[facility] Pap smear of vagina R87.622 [place] [id number] [place] [address] 82585- 2342 Apr, Low back pain M54.5 [place] [id number] [place] [address] 88402- 1690 Mar, [place] [id number] [place] [address] 62174- 3973 Mar, Low back pain M54.5 [facility] [id number] [place] [address] 49541- 2319 Mar, Encounter for Papanicolaou smear for cervical cancer screening Z12.4 ; Encounter for routine gynecological examination Z01.419 and Breast cancer screening Z12.39 [place] [id number] [place] [address] 51529- 0656 18 Mar, 2016 Hypothyroidism, unspecified type E03.9 [facility] [facility] [id number] [place] [address] 93812- 5184 14 Mar, 2016 Low back pain M54.5 ; Other chronic pain G89.29 ; Hypothyroid E03.9 and Hypothyroidism, unspecified type E03.9 [place] [id number] [place] [address] 96185- 5393 Mar, Major depressive disorder, recurrent, moderate F33.1 and Attention-deficit hyperactivity disorder, predominantly inattentive type F90.0 [facility] [address] [address] -0088 Mar, Bronchitis J40 [facility] [id number] [place] [address] 13259- 8487 Jan, [facility] [id number] [place] [address] 77814- 5583 Jan, [facility] [id number] [place] [address] 22098- 8781 Jan, Insomnia G47.00 [facility] [id number] [place] [address] 36593- 4420 December, [facility] [id number] [place] [address] 99237- 7063 December, Major depressive disorder in partial remission F32.4 and Attention-deficit hyperactivity disorder, unspecified type F90.9 [facility] [id number] [place] [address] 30219- 6003 December, [facility] [id number] [place] [address] 69077- 6841 December, [facility] [id number] [place] [address] 92759- 1602 Dec, [facility] [id number] [place] [address] 54491- 2836 Dec, Major depressive disorder, recurrent episode, moderate 296.32 and Attention deficit disorder of childhood without mention of hyperactivity 314.00 [facility] [id number] [place] [address] 94514- 3803 Dec, Major depressive disorder, recurrent episode, mild 296.31 ; ADD (attention deficit disorder) F90.0 and Hyperlipidemia E78.5 [facility] [address] [address]- 3207 Dec, Insomnia G47.00 [facility] [address] [place] [address]- 7432 Dec, Attention-deficit hyperactivity disorder, predominantly inattentive type F90.0 [facility] [id number] [place] [address] 37526- 6637 Oct, Restless legs syndrome G25.81 [facility] [address] [address]- 6218 Oct, Hypothyroidism, unspecified type E03.9 [facility] [id number] [address]- 4768 Oct, [facility] [id number] [place] [address] 56512- 8419 Oct, [facility] [id number] [place] [address] 32289- 3124 15 Nov, 2015 Hypothyroid E03.9 and Chronic hepatitis K73.9 [facility] [id number] [place] [address] 16791- 7071 Oct, [facility] [id number] [place] [address] 17888- 9245 Oct, Restless legs syndrome G25.81 ; Chronic hepatitis K73.9 ; Hypertension I10 ; Hypothyroid E03.9 and Breast cancer screening Z12.39 [facility] [address] [address]- 2485 Oct, [facility] [address] [address]- 1039 Oct, [facility] [address] [address]- 0211 Oct, [facility] [address] [address]- 1494 Oct, [facility] [address] [address]- 0690 Oct, [facility] [id number] [address]- 5813 10 Oct, 2015 [facility] [address] [address]- 3234 05 Oct, 2015 [facility] [id number] [place] [address] 93364- 2325 Sep, [facility] [id number] [place] [address] 62356- 1091 Sep, Attention-deficit hyperactivity disorder, predominantly inattentive type F90.0 and Major depressive disorder in partial remission F32.4 [facility] [id number] [place] [address] 01684- 1239 Sep, [facility] [id number] [place] [address] 50020- 3459 Aug, [facility] [id number] [place] [address] 30910- 9346 Aug, [facility] [id number] [place] [address] [id number]- [id number] Aug, Major depressive disorder, recurrent, mild F33.0 ; Attention -deficit hyperactivity disorder, unspecified type F90.9 and Generalized anxiety disorder F41.1 [facility] [id number] [address] Aug, 2015 Chronic hepatitis K73.9 ; Primary osteoarthritis of both knees M17.0 and Neuralgia M79.2 [facility] [address] [address] Jul, [facility] [id number] [address] Jul, [facility] [address] [id number] [place] [address] 47686- 9674 Jul, [facility] [id number] [place] [address] 71320- 9663 Jul, [facility] [id number] [place] [address] 51603- 6547 Jun, [facility] [id number] [place] [address] 47323- 1707 Jun, Encounter for immunization Z23 and Bronchitis J40 [facility] [id number] [place] [address] 17616- 8486 30 May, 2015 [facility] [id number] [place] [address] 67533- 5476 May, [facility] [id number] [place] [address] 37548- 6934 May, [facility] [id number] [place] [address] 14513- 6530 May, Hypokalemia 276.8 [facility] [id number] [place] [address] 64401- 6835 08 May, 2015 Major depressive disorder, recurrent episode, mild 296.31 ; Attention deficit disorder of childhood without mention of hyperactivity 314.00 and Generalized anxiety disorder 300.02 [facility] [id number] [place] [address] 72991- 2346 May, Hypertension 401.9 and Hypokalemia 276.8 [facility] [id number] [place] [address] 12226- 5609 May, [facility] [id number] [place] [address] 50992- 7364 Apr, [facility] [id number] [place] [address] 52647- 9559 Apr, [facility] [id number] [place] [address] 34856- 4433 Apr, [facility] [id number] [place] [address] 74923- 2009 Apr, [facility] [address] [address] 9869 Mar, [facility] [address] [address]- 3633 Mar, [facility] [id number] [place] [address] 42539- 5426 Mar, [facility] [id number] [place] [address] 06515- 0551 Mar, [facility] [id number] [place] [address] 44036- 2257 Mar, Arthritis of both knees 716.96 ; Hepatitis B 070.30 ; Hypertension 401.9 ; Carpal tunnel syndrome 354.0 and Cubital tunnel syndrome 354.2 [facility] [id number] [place] [address] 44000- 2727 Mar, [facility] [id number] [place] [address] 53372- 8969 Mar, [facility] [id number] [place] [address] 43698- 3493 Mar, 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, chronic, without mention of hepatitis delta 070.32 ; Chronic hepatitis C without mention of hepatic coma 070.54 and Major depressive disorder, recurrent episode, moderate 296.32 [facility] [address] [address] 1083 Jan, [facility] [id number] [place] [address] 20017- 4202 Jan, Major depressive disorder, recurrent episode, mild 296.31 and Attention deficit disorder of childhood without mention of hyperactivity 314.00 [facility] [address] [address]- 7770 Jan, [facility] [id number] [place] [address] 40944- 1112 Jan, [facility] [address] [address]- 3475 December, Attention deficit disorder of childhood without mention of hyperactivity 314.00 ; Major depressive disorder, recurrent episode, mild 296.31 and Generalized anxiety disorder 300.02 [facility] [address] [id number] [place] [address]- 0613 08 Dec, 2014 [facility] [address] [facility] [id number] [place] [address]- 2003 14 Dec, 2014 [facility] [address] [facility] [id number] [place] [address]- 2241 13 Dec, 2014 [facility] [address] [id number] [address]- 5225 19 Oct, 2014 [facility] [address] [facility] [id number] [place] [address]- 0313 19 Oct, 2014 [facility] [address] [facility] [id number] [place] [address]- 5322 18 Oct, 2014 [facility] [id number] [place] [address]- 0722 18 Oct, 2014 [facility] [address] [facility] [id number] [place] [address]- 4767 18 Oct, 2014 [facility] [address] [facility] [id number] [place] [address]- 6207 18 Oct, 2014 [facility] [address] [facility] [id number] [place] [address]- 2103 16 Oct, 2014 [facility] [address] [facility] [id number] [address]- 7872 13 Oct, 2014 [facility] [place] [facility] [address] [facility] [id number] [address]- 6819 13 Oct, 2014 [facility] [place] [facility] [address] [facility] [id number] [place] [address]- 6067 12 Oct, 2014 [facility] [place] [facility] [address] [facility] [id number] [place] [address]- 5911 12 Oct, 2014 [facility] [place] [facility] [address] [facility] [id number] [address]- 8415 10 Oct, 2014 [facility] [address] [facility] [id number] [place] [address]- 3959 10 Oct, 2014 [facility] [place] [facility] [address] [id number] [place] [address]- 9563 Oct, 2014 [facility] [place] [facility] [address] [id number] [place] [address]- 3831 Oct, 2014 [facility] [place] [facility] [address] [id number] [place] [address]- 0509 Oct, 2014 [facility] [place] [facility] [address] [id number] [place] [address]- 9979 Oct, 2014 [facility] [place] [facility] [address] [id number] [place] [address]- 1059 25 Oct, 2014 [facility] [place] [facility] [address] [facility] [id number] [place] [address]- 6095 19 Oct, 2014 [facility] [place] [facility] [address] [facility] [id number] [place] [address]- 5133 18 Oct, 2014 [facility] [place] [facility] [address] [facility] [id number] [place] [address]- 4420 17 Oct, 2014 [facility] [place] [facility] [address] [facility] [id number] [place] [address]- 9089 17 Oct, 2014 [facility] [place] [facility] [address] [facility] [id number] [place] [address]- 8313 11 Oct, 2014 [facility] [place] [facility] [address] [facility] [id number] [address]- 9869 Oct, 2014 [facility] [place] [facility] [address] [facility] [id number] [place] [address]- 4358 Oct, 2014 [facility] [place] [facility] [address] [facility] [id number] [place] [address]- 2101 11 Oct, 2014 [facility] [place] [facility] [address] [facility] [id number] [place] [address]- 9918 10 Oct, 2014 [facility] [place] [facility] [address] [facility] [id number] [place] [address]- 6829 Oct, [facility] [address] [id number] [place] [address]- 4016 Sep, [facility] [place] [facility] [address] [id number] [place] [address]- 6683 Sep, [facility] [place] [facility] [address] [id number] [place] [address]- 0394 Sep, [facility] [place] [facility] [address] [id number] [place] [address]- 4307 Sep, [facility] [place] [facility] [address] [id number] [place] [address]- 4775 Sep, [facility] [place] [facility] [address] [id number] [place] [address]- 7574 Sep, [facility] [place] [facility] [address] [id number] [place] [address]- 8922 Sep, [facility] [place] [facility] [address] [id number] [place] [address]- 8568 Sep, [facility] [place] [facility] [address] [id number] [place] [address]- 7413 Sep, [facility] [place] [facility] [address] [id number] [place] [address]- 6263 Sep, [facility] [place] [facility] [address] [id number] [place] [address]- 5815 Sep, [facility] [place] [facility] [address] [id number] [address]- 1600 Sep, [facility] [place] [facility] [address] [id number] [place] [address]- 1336 Sep, [facility] [place] [facility] [address] [id number] [place] [address]- 3406 Sep, [facility] [place] [facility] [address] [id number] [address]- 4968 Sep, [facility] [place] [facility] [address] [id number] [place] [address]- 4222 Sep, [facility] [place] [facility] [address] [id number] [place] [address]- 7066 Aug, [facility] [place] [facility] [address] [id number] [place] 6866 Aug, [facility] [place] [facility] [address] [id number] [place] [address]- 0676 Aug, [facility] [place] [facility] [address] [id number] [place] [address]- 0577 Aug, [facility] [place] [facility] [address] [id number] [place] [address]- 2090 Aug, [facility] [place] [facility] [address] [id number] [place] [address]- 9455 Aug, [facility] [place] [facility] [address] [id number] [place] [address]- 4123 Aug, [facility] [place] [facility] [address] [id number] [place] [address]- 5499 20 Aug, 2014 [facility] [place] [facility] [address] [id number] [place] [address]- 0264 19 Aug, 2014 [facility] [place] [facility] [address] [id number] [place] [address]- 9594 18 Aug, 2014 [facility] [place] [facility] [address] [id number] [place] [address]- 5370 18 Aug, 2014 [facility] [place] [facility] [address] [id number] [place] [address]- 6396 16 Aug, 2014 [facility] [place] [facility] [address] [id number] [place] 5146 16 Aug, 2014 [facility] [place] [facility] [address] [id number] [place] [address]- 4456 15 Aug, 2014 [facility] [place] [facility] [address] [id number] [place] [address]- 8994 15 Aug, 2014 [facility] [place] [facility] [address] [id number] [place] [address]- 2107 Aug, [facility] [place] [facility] [address] [id number] [place] [address]- 1093 Aug, [facility] [place] [facility] [address] [id number] [place] [address]- 6070 Aug, [facility] [place] [facility] [address] [id number] [place] [address]- 7508 Aug, [facility] [place] [facility] [address] [id number] [place] [address]- 3148 Aug, [facility] [place] [facility] [address] [id number] [place] [address]- 9746 Aug, [facility] [place] [facility] [address] [id number] [place] [address]- 4083 Aug, [facility] [place] [facility] [address] [id number] [place] [address]- 3252 Aug, [facility] [place] [facility] [address] [id number] [place] [address]- 8589 Aug, [facility] [place] [facility] [address] [id number] [place] [address]- 0269 Aug, [facility] [place] [facility] [address] [id number] [address]- 4542 Jul, [facility] [place] [facility] [address] [id number] [place] [address]- 4611 Jul, [facility] [place] [facility] [address] [id number] [place] [address]- 0133 Jul, [facility] [place] [facility] [address] [id number] [place] [address]- 3790 Jul, [facility] [place] [facility] [address] [id number] [place] [address]- 0221 Jul, [facility] [place] [facility] [address] [id number] [place] [address]- 9792 Jul, [facility] [place] [facility] [address] [id number] [place] [address]- 4474 Jun, [facility] [place] [facility] [address] [id number] [place] [address]- 7812 Jun, [facility] [place] [facility] [address] [id number] [place] [address]- 2130 Jun, [facility] [place] [facility] [address] [id number] [place] [address]- 2237 Jun, [facility] [place] [facility] [address] [id number] [place] [address]- 5486 Jun, [facility] [place] [facility] [address] [id number] [place] [address]- 8202 Jun, [facility] [place] [facility] [address] [id number] [place] [address]- 6147 Jun, [facility] [place] [facility] [address] [id number] [place] [address]- 4527 Jun, [facility] [place] [facility] [address] [id number] [place] [address]- 1085 16 May, 2013 [facility] [place] [facility] [address] [id number] [place] [address]- 2173 16 Sep, 2013 [facility] [place] [facility] [address] [id number] [place] [address]- 2548 15 May, 2013 [facility] [place] [facility] [address] [id number] [place] [address]- 7546 15 Sep, 2013 [facility] [place] [facility] [address] [id number] [place] [address]- 1834 08 Sep, 2013 [facility] [place] [facility] [address] [id number] [place] [address]- 2214 08 Sep, 2013 [facility] [place] [facility] [address] [id number] [place] [address]- 7793 May, [facility] [place] [facility] [address] [id number] [place] [address]- 9286 May, [facility] [place] [facility] [address] [id number] [place] [address]- 4841 Apr, [facility] [place] [facility] [address] [id number] [place] [address]- 2717 Apr, [facility] [place] [facility] [address] [id number] [place] [address]- 1769 Apr, [facility] [place] [facility] [address] [id number] [place] [address]- 3404 Apr, [facility] [place] [facility] [address] [id number] [place] [address]- 6336 Apr, [facility] [place] [facility] [address] [id number] [place] [address]- 9741 Apr, [facility] [place] [facility] [address] [id number] [place] [address]- 7221 Apr, [facility] [place] [facility] [address] [id number] [place] [address]- 3213 Apr, [facility] [place] [facility] [address] [id number] [place] [address]- 0357 Apr, [facility] [place] [facility] [address] [id number] [place] [address]- 6984 Apr, [facility] [place] [facility] [address] [id number] [place] [address]- 9258 Apr, [facility] [place] [facility] [address] [id number] [place] [address]- 2067 Apr, [facility] [place] [facility] [address] [id number] [place] [address]- 1335 Apr, [facility] [place] [facility] [address] [id number] [place] [address]- 3961 Mar, [facility] [place] [facility] [address] [id number] [place] [address]- 8310 Mar, [facility] [place] [facility] [address] [id number] [place] [address]- 9503 Mar, [facility] [place] [facility] [address] [id number] [place] [address]- 3150 Mar, [facility] [place] [facility] [address] [id number] [place] [address]- 2304 Jan, [facility] [place] [facility] [address] [id number] [place] [address]- 6162 Jan, [facility] [place] [facility] [address] [id number] [place] [address]- 4763 December, [facility] [place] [facility] [address] [id number] [place] [address]- 1578 December, [facility] [place] [facility] [address] [id number] [place] [address]- 5446 December, [facility] [place] [facility] [address] [id number] [place] [address]- 3358 December, [facility] [place] [facility] [address] [id number] [place] [address]- 4524 December, [facility] [place] [facility] [address] [id number] [place] [address]- 4972 December, [facility] [place] [facility] [address] [id number] [place] [address]- 2534 December, [facility] [place] [facility] [address] [id number] [place] [address]- 0984 December, [facility] [place] [facility] [address] [id number] [place] [address]- 6854 Dec, [facility] [place] [facility] [address] [id number] [place] [address]- 6756 Dec, [facility] [place] [facility] [address] [id number] [place] [address]- 1894 Dec, [facility] [place] [facility] [address] [id number] [place] [address]- 7813 24 Dec, 2013 [facility] [place] [facility] [address] [id number] [place] [address]- 7353 Oct, [facility] [place] [facility] [address] [id number] [place] [address]- 8576 Oct, [facility] [place] [facility] [address] [id number] [place] [address]- 3277 Oct, [facility] [place] [facility] [address] [id number] [place] [address]- 4386 Oct, [facility] [place] [facility] [address] [id number] [place] [address]- 2602 Oct, [facility] [place] [facility] [address] [facility] [id number] [place] [address]- 4887 Oct, [facility] [place] [facility] [address] [id number] [place] [address]- 2634 Oct, [facility] [place] [facility] [address] [id number] [place] [address]- 0840 Oct, [facility] [place] [facility] [address] [id number] [place] [address]- 9512 Oct, [facility] [place] [facility] [address] [facility] [id number] [place] [address]- 8528 Oct, [facility] [place] [facility] [address] [id number] [place] [address]- 6128 Oct, [facility] [place] [facility] [address] [id number] [place] [address]- 5778 Oct, [facility] [place] [facility] [address] [id number] [place] [address]- 1593 Oct, [facility] [place] [facility] [address] [id number] [place] [address]- 1663 Oct, [facility] [place] [facility] [address] [id number] [place] [address]- 5373 Oct, 2013 [facility] [place] [facility] [address] [id number] [place] [address]- 7431 Oct, [facility] [place] [facility] [address] [id number] [place] [address]- 6051 Oct, 2013 [facility] [place] [facility] [address] [id number] [place] [address]- 6683 Oct, 2013 [facility] [place] [facility] [address] [id number] [place] [address]- 2458 Oct, [facility] [place] [facility] [address] [id number] [place] [address]- 2386 Oct, [facility] [place] [facility] [address] [id number] [place] [address]- 3396 Oct, [facility] [place] [facility] [address] [id number] [place] [address] Oct, [facility] [place] [facility] [address] [id number] [place] [address] Sep, [facility] [place] [facility] [address] [id number] [place] [address] Sep, [facility] [place] [facility] [address] [facility] [id number] [place] [address] Sep, [facility] [place] [facility] [address] [id number] [place] [address] Sep, [facility] [place] [facility] [address] [id number] [address] Aug, [facility] [place] [facility] [address] [id number] [place] [address] Aug, [facility] [place] [facility] [address] [facility] [id number] [place] [address] Aug, [facility] [place] [facility] [address] [id number] [address] Aug, [facility] [place] [facility] [address] [id number] [place] [address] Aug, [facility] [place] [facility] [address] [id number] [place] [address] 9826 Aug, [facility] [place] [facility] [address] [id number] [place] [address] Aug, [facility] [place] [facility] [address] [id number] [place] [address] Aug, [facility] [place] [facility] [address] [id number] [place] [address]- [address]185 Aug, [facility] [place] [facility] [address] [id number] [place] [address] Jul, [facility] [place] [facility] [address] [id number] [place] [address] Jul, [facility] [place] [facility] [address] [id number] [place] [address]- [address] Jul, [facility] [place] [facility] [address] [id number] [place] [address]146 Jul, [facility] [place] [facility] [address] [id number] [place] [address]- [address] Jul, [facility] [place] [facility] [address] [id number] [place] [address]- [address] Jul, [facility] [place] [facility] [address] [id number] [place] [address]- 4[address] Jul, [facility] [place] [facility] [address] [id number] [place] [address]- [address] Jul, [facility] [place] [facility] [address] [id number] [place] [address] Jun, [facility] [place] [facility] [address] [id number] [place] [address]- 1768 Jun, [facility] [place] [facility] [address] [id number] [place] [address]- 1518 Jun, [facility] [place] [facility] [address] [id number] [place] [address]- [address] Jun, [facility] [place] [facility] [address] [id number] [place] [address]- [address] Jun, [facility] [place] [facility] [address] [id number] [place] [address]- [address] Jun, [facility] [place] [facility] [address] [id number] [place] [address]- [address] Jun, [facility] [place] [facility] [address] [id number] [place] [address]- [address]562 Jun, [facility] [place] [facility] [address] [id number] [place] [address]- [address] 30 May, 2013 [facility] [place] [facility] [address] [id number] [place] [address] 26 May, 2013 [facility] [place] [facility] [address] [id number] [place] [address]- [address] 23 May, 2013 [facility] [place] [facility] [address] [id number] [place] [address]- 9310 19 May, 2013 [facility] [place] [facility] [address] [id number] [place] [address]- [address]99 12 May, 2013 [facility] [place] [facility] [address] [id number] [address] May, [facility] [place] [facility] [address] [id number] [place] [address] Apr, [facility] [place] [facility] [address] [id number] [place] [address]- 5567 Apr, [facility] [place] [facility] [address] [id number] [place] [address]- [address] Apr, [facility] [place] [facility] [address] [id number] [place] [address]- 9583 Apr, [facility] [place] [facility] [address] [id number] [place] [address]58 Apr, [facility] [address] [id number] [place] [address]- [address]326 Apr, [facility] [place] [facility] [address] [id number] [place] [address]- 1697 Apr, [facility] [address] [id number] [place] [address]- [address] Mar, [facility] [place] [facility] [address] [id number] [place] [address]- 4[address] Mar, [facility] [place] [facility] [address] [id number] [place] [address]- [address]647 Mar, [facility] [place] [facility] [address] [id number] [place] [address]- 3673 Mar, [facility] [place] [facility] [address] [id number] [place] [address]- 1299 Mar, [facility] [address] [id number] [place] [address]- 6542 Mar, [facility] [place] [facility] [address] [id number] [place] [address]- 9500 Mar, [facility] [address] [id number] [place] [address]- 7961 Jan, [facility] [place] [facility] [address] [id number] [place] [address]- 67[address] Jan, [facility] [place] [facility] [address] [id number] [place] [address] Jan, [facility] [place] [facility] [address] [id number] [place] [address]- [address] Jan, [facility] [place] [facility] [address] [id number] [place] [address]- 4089 Jan, [facility] [place] [facility] [address] [id number] [place] [address] Jan, [facility] [address] [id number] [place] [address]- 655[address] Jan, [facility] [address] [id number] [place] [address]- 9134 December, [facility] [address] [id number] [place] [address]- [address] December, [facility] [address] [id number] [place] [address] December, [facility] [address] [id number] [place] [address] December, [facility] [address] [id number] [place] [address] 30 Dec, 2012 [facility] [address] [id number] [place] [address] Dec, [facility] [address] [id number] [place] [address] Dec, [facility] [address] [id number] [place] [address] 29 Oct, 2012 [facility] [address] [id number] [place] [address] Oct, [facility] [place] [facility] [address] [id number] [place] [address] Oct, [facility] [place] [facility] [address] [id number] [address] Oct, [facility] [place] [facility] [address] [id number] [place] [address] 16[address] Oct, [facility] [place] [facility] [address] [id number] [place] [address]- 60[address] Oct, [facility] [place] [facility] [address] [id number] [place] [address] 18 Oct, 2012 [facility] [place] [facility] [address] [id number] [place] [address] Oct, [facility] [address] [id number] [place] [address] Oct, [facility] [address] [id number] [place] [address]- 4076 08 Oct, 2012 [facility] [address] [id number] [place] [address]- 1306 Oct, [facility] [address] [id number] [place] [address]- [address] Sep, [facility] [address] [id number] [place] [address] Sep, [facility] [address] [id number] [place] [address]77 Sep, [facility] [address] [id number] [place] [address] 07 Aug, 2012 [facility] [address] [id number] [place] [address] 6[address] Aug, [facility] [address] [id number] [place] [address]- 17[address] Aug, [facility] [address] [facility] [id number] [place] [address]- 1606 Aug, [facility] [address] [id number] [place] [address]- [address] Jul, [facility] [place] [facility] [address] [id number] [place] [address]- 18[address] Jul, [facility] [place] [facility] [address] [id number] [place] [address]- [address] Jul, [facility] [place] [facility] [address] [id number] [place] [address]- [address]286 Jul, [facility] [address] [id number] [address] Jul, [facility] [place] [facility] [address] [id number] [place] [address] Jul, [facility] [place] [facility] [address] [id number] [place] [address]- [address]369 Jul, [facility] [place] [facility] [address] [id number] [place] [address]- 67[address] Jul, [facility] [place] [facility] [address] [id number] [place] [address]- 9835 Jun, [facility] [place] [facility] [address] [id number] [place] [address]- 74[address] Jun, [facility] [place] [facility] [address] [id number] [place] [address]- [address]97 Jun, [facility] [place] [facility] [address] [id number] [place] [address]- 4690 Jun, [facility] [place] [facility] [address] [id number] [place] [address]- 1845 Jun, [facility] [place] [facility] [address] [id number] [place] [address]- [address] May, [facility] [place] [facility] [address] [id number] [place] [address]- [address] May, [facility] [place] [facility] [address] [id number] [place] [address]- [address] 18 May, 2012 [facility] [place] [facility] [address] [id number] [place] [address]- 8107 May, [facility] [place] [facility] [address] [id number] [place] [address]- 8920 May, [facility] [place] [facility] [address] [id number] [place] [address]- 1252 Apr, [facility] [place] [facility] [address] [id number] [place] [address]- 1708 Apr, [facility] [place] [facility] [address] [id number] [place] [address]- 2103 Apr, [facility] [place] [facility] [address] [id number] [place] [address]- 6718 Apr, [facility] [place] [facility] [address] [id number] [place] [address]- 9013 Apr, [facility] [place] [facility] [address] [id number] [place] [address]- 0110 Apr, [facility] [place] [facility] [address] [id number] [place] [address]- 8465 Apr, [facility] [place] [facility] [address] [id number] [place] [address]- 4756 Mar, [facility] [place] [facility] [address] [id number] [place] [address]- 6065 Mar, [facility] [place] [facility] [address] [id number] [place] [address]- 4[address] Mar, [facility] [place] [facility] [address] [id number] [place] [address]- 2571 Mar, [facility] [place] [facility] [address] [id number] [place] [address]- 6725 Jan, [facility] [place] [facility] [address] [id number] [place] [address]- 7669 Jan, [facility] [place] [facility] [address] [id number] [place] [address]- 5631 Jan, [facility] [place] [facility] [address] [id number] [place] [address]- 2849 Jan, [facility] [place] [facility] [address] [id number] [place] [address]- 7907 Jan, [facility] [place] [facility] [address] [id number] [place] [address]- 3231 Jan, [facility] [place] [facility] [address] [id number] [place] [address]- 8215 December, [facility] [place] [facility] [address] [id number] [place] [address]- 7966 December, [facility] [address] [id number] [place] [address]- 4886 December, [facility] [address] [id number] [place] [address]- 8116 December, [facility] [address] [id number] [place] [address]- 5866 Dec, [facility] [address] [id number] [place] [address]- 5388 Dec, [facility] [address] [id number] [place] [address]- 0619 Oct, [facility] [address] [id number] [place] [address]- 4504 Oct, [facility] [address] [id number] [place] [address]- 9201 Oct, [facility] [address] [id number] [place] [address]- 6877 16 Nov, 2011 [facility] [address] [id number] [place] [address]- 7636 Oct, [facility] [address] [facility] [id number] [place] [address]- 0692 Oct, [facility] [address] [id number] [place] [address]- 0486 Oct, [facility] [address] [id number] [place] [address]- 9436 Oct, [facility] [place] [facility] [address] [id number] [place] [address]- 7216 Oct, [facility] [address] [id number] [place] [address]- 9626 Oct, [facility] [address] [id number] [place] [address]- 3816 Oct, [facility] [address] [id number] [place] [address]- 5542 Sep, [facility] [place] [facility] [address] [id number] [place] [address]- 5122 Sep, [facility] [place] [facility] [address] [id number] [place] [address]- 8555 Sep, [facility] [place] [facility] [address] [id number] [place] [address]- 4078 Sep, [facility] [place] [facility] [address] [id number] [place] [address]- 0456 Sep, [facility] [place] [facility] [address] [id number] [place] [address]- 9311 Sep, [facility] [place] [facility] [address] [id number] [place] [address]- 9959 Sep, [facility] [place] [facility] [address] [id number] [place] [address]- 9155 Sep, [facility] [place] [facility] [address] [id number] [place] [address]- 4217 Aug, [facility] [place] [facility] [address] [id number] [place] [address]- 8975 Aug, [facility] [place] [facility] [address] [id number] [place] [address]- 2665 Aug, [facility] [place] [facility] [address] [id number] [address]- 8980 Jul, [facility] [place] [facility] [address] [id number] [place] [address]- 6309 Jul, [facility] [place] [facility] [address] [id number] [place] [address]- 2435 18 Jul, 2011 [facility] [place] [facility] [address] [id number] [place] [address]- 6486 17 Jul, 2011 [facility] [place] [facility] [address] [id number] [place] [address]- 7739 08 Jul, 2011 [facility] [address] [id number] [place] [address]- 7761 02 Jul, 2011 [facility] [place] [facility] [address] [id number] [place] [address]- 7856 31 Jun, 2011 [facility] [place] [facility] [address] [id number] [place] [address]- 0694 20 Jun, 2011 [facility] [place] [facility] [address] [id number] [place] [address]- 3277 20 Mar, 2011 [facility] [place] [facility] [address] [id number] [place] [address]- 0078 14 Dec, 2010 [facility] [place] [facility] [address] [id number] [place] [address]- 6978 14 Oct, 2010 [facility] [place] [facility] [address] [id number] [place] [address]- 9430 06 Aug, 2010 [facility] [place] [facility] [address] [id number] [place] [address]- 7223 30 Jul, 2010 [facility] [place] [facility] [address] [id number] [place] [address]- 2479 11 Jul, 2010 [facility] [place] [facility] [address] [facility] [id number] [place] [address]- 3413 10 Jul, 2010 [facility] [place] [facility] [address] [id number] [place] [address]- 4375 09 Jul, 2010 [facility] [place] [facility] [address] [id number] [place] [address]- 3583 08 Jul, 2010 [facility] [place] [facility] [address] [id number] [place] [address]- 5014 22 Aug, 2009 [facility] [place] [facility] [address] [id number] [place] [address]- 9586 15 Aug, 2009 [facility] [place] [facility] [address] [id number] [place] [address]- 0305 14 Aug, 2009 [facility] [place] [facility] [address] [id number] [address] Aug, [facility] [address] [address] 6[address] Jul, [facility] [address] [address]- 7053 Jul, [facility] [address] [address]- 7809 Jul, [facility] [address] [address]- 1174 Jul, [facility] [address] [address]- 0497 Jun, [facility] [address] [id number] [address]11 Jun, IMMUNIZATIONS No Known Immunizations SOCIAL HISTORY Never Assessed REASON FOR VISIT Rx request PLAN OF CARE VITAL SIGNS MEDICATIONS Medication Instructions Dosage Frequency Start Date End Date Duration Status Ondansetron HCl 4 MG Orally Once a day 1 tablet 24h May, 30 day (s) Active RESULTS No Results PROCEDURES No Known [...]
--- OUTSIDE RECORDS SUMMARY | 2018-03-17 11:44 | XMS REPORT ---
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 Active 89532144 Problem Attention-deficit hyperactivity disorder, predominantly inattentive type F90.0 Active 33752383 Problem Obstructive sleep apnea G47.33 Active 45324865 Problem Primary insomnia F51.01 Active 6986599 Problem Neuralgia M79.2 Active 66158003 Problem Cannabis use disorder, mild, abuse F12.10 Active 47276306 Problem Folic acid deficiency E53.8 Active 691509358 Problem Restless legs G25.81 Active 95868732 Problem Major depressive disorder, recurrent, mild F33.0 Active 32553543 Problem Generalized anxiety disorder F41.1 Active 10537369 Problem Major depressive disorder, recurrent episode, moderate F33.1 Active 551644557 Problem Hypertension I10 Active 50986401 Problem Hyperlipidemia E78.5 Active 37461966 Problem Primary osteoarthritis of both knees M17.0 Active 409126308 Problem Chronic hepatitis K73.9 Active 69353176 Problem Low back pain M54.5 Active 915566863 Problem Chronic viral hepatitis B without delta-agent B18.1 Active 199733489 Problem Insomnia G47.00 Active 945893319 Problem Hypothyroid E03.9 Active 20385499 Problem Depression, major, recurrent, mild F33.0 Active 415003030 Problem Obesity due to excess calories, unspecified obesity severity E66.09 Active 840429917 ALLERGIES No Information ENCOUNTERS Encounter Location Date Diagnosis [facility] [address] [facility] [id number] [address] December, [facility] [address] [facility] [id number], [place] [address] Dec, Bone pain M89.8X9 [facility] [id number] [place] [address] 65728- 3532 Dec, [facility] [id number] [place] [address] 84506- 8811 Oct, [facility] [id number] [place] [address] 66997- 7970 Oct, Syncope, unspecified syncope type R55 ; Primary insomnia F51.01 ; Dry mouth R68.2 and Cannabis use disorder, mild, abuse F12.10 [facility] [id number] [place] [address] 50919- 7489 Oct, [facility] [id number] [place] [address] 79136- 2418 Sep, [facility] [id number] [place] [address] 44986- 5105 Sep, [facility] [id number] [place] [address] 91232- 7914 Sep, [facility] [address] [id number] Sep, Dental examination Z01.20 [facility] [id number] [place] [address] 55039- 0138 Sep, Dental examination Z01.20 [facility] [id number] [place] [address] 00051- 0650 Sep, Sinus congestion R09.81 ; Mouth sores K13.79 ; Low back pain M54.5 and Mouth swelling R22.0 [facility] [id number] [place] [address] 09303- 7473 Aug, Low back pain M54.5 [facility] [id number] [place] [address] 29820- 7516 Aug, Low back pain M54.5 [facility] [id number] [place] [address] 41041- 8921 Jul, [facility] [address] 07429- 9429 Jul, Encounter for immunization Z23 ; Hyperinsulinemia E16.1 ; Hypothyroid E03.9 ; Decreased renal function N28.9 and Muscle cramps R25.2 [facility] [address] 54399- 9597 Jul, [facility] [address] 99029- 2761 Jul, [place] [address] 03880- 9938 Jul, [place] [address] 44650- 8474 Jul, Major depressive disorder, recurrent, mild F33.0 [place] [address] 63773- 6081 Jul, Acquired cyst of kidney N28.1 ; Acidosis E87.2 and Hyperkalemia E87.5 [place] [address] 09489- 7198 Jul, Major depressive disorder, recurrent, mild F33.0 ; Attention -deficit hyperactivity disorder, predominantly inattentive type F90.0 and Generalized anxiety disorder F41.1 [place] [address] 96437- 1428 Jul, Low back pain M54.5 [facility] [address] 29172- 2550 Jun, Cough R05 ; Low back pain M54.5 and Pre-syncope R55 [facility] [address] 13393- 1566 Jun, Low back pain M54.5 [facility] [id number] [place] [address] [id number] Jun, Dental caries K02.9 [place] [address] 30093- 1670 Jun, [place] [address] [place] 220915- 4533 Jun, Major depressive disorder, recurrent, mild F33.0 ; Attention -deficit hyperactivity disorder, predominantly inattentive type F90.0 and Generalized anxiety disorder F41.1 [place] [address] 75645- 9357 May, Vertigo R42 ; Confusion R41.0 ; Weakness R53.1 and Vision changes H53.9 [place] [address] 02101- 3088 May, [place] [address] 27442- 1867 May, [place] [address] 64014- 6428 May, Low back pain M54.5 [place] [id number] [place] [address] 19609- 8754 May, Major depressive disorder, recurrent, mild F33.0 ; Attention -deficit hyperactivity disorder, predominantly inattentive type F90.0 and Generalized anxiety disorder F41.1 [place] [id number] [place] [address] 80106- 8192 May, [place] [address] 00469- 0970 May, Acute worsening of stage 3 chronic kidney disease N18.3 [place] [address] 53050- 1693 Apr, [place] [address] 00501- 4214 Apr, Acute allergic rhinitis due to pollen, unspecified seasonality J30.1 ; Restless legs G25.81 and Low back pain M54.5 [place] [address], [place] [address] 4[address] 10 Apr, 2017 Primary osteoarthritis of both knees M17.0 [facility] [id number] [place] [address] 26331- 3672 08 Apr, 2017 Generalized anxiety disorder F41.1 [facility] [id number] [place] [address] 83269- 3363 07 Apr, 2017 Major depressive disorder, recurrent, mild F33.0 ; Attention -deficit hyperactivity disorder, predominantly inattentive type F90.0 and Generalized anxiety disorder F41.1 [facility] [id number] [place] [address] 72757- 9141 Apr, [facility] [id number] [place] [address] 69075- 0977 Mar, Major depressive disorder, recurrent episode, moderate F33.1 ; Generalized anxiety disorder F41.1 and ADHD, predominantly inattentive type F90.0 [facility] [id number] [place] [address] 76089 -0751 Mar, Abscess L02.91 [facility] [id number] [place] [address] 59334- 6361 Mar, Hyperinsulinemia E16.1 [facility] [id number] [place] [address] 21214- 4177 Mar, Decreased renal function N28.9 [facility] [id number] [place] [address] [id number] Mar, Dental examination Z01.20 [facility] [address] [place] [address] 06703- 4197 17 Mar, 2017 Hyperinsulinemia E16.1 [facility] [id number] [place] [address] 74406- 8148 Mar, Hyperinsulinemia E16.1 [facility] [id number] [place] [address] [id number] Mar, Dental examination Z01.20 and Dental caries K02.9 [place] [address] [address]- 7330 12 Mar, 2017 Chronic viral hepatitis B without delta-agent B18.1 ; Folic acid deficiency E53.8 ; Hyperinsulinemia E16.1 and Decreased renal function N28.9 [place] [address], [place] [address]- 0244 Mar, Major depressive disorder, recurrent, mild F33.0 [place] [id number] [place] [address] 11107- 7648 Mar, [place] [address] [place] [address] 16512- 6437 Mar, Chronic hepatitis K73.9 ; Hyperinsulinemia E16.1 ; Localized edema R60.0 ; Illicit drug use F19.90 ; Vision changes H53.9 and Obesity due to excess calories, unspecified obesity severity E66.09 [place] [id number] [place] [address] 64358- 4228 Jan, Major depressive disorder, recurrent, mild F33.0 [place] [id number] [place] [address] 80732- 0774 Jan, Chronic viral hepatitis B without delta-agent B18.1 [place] [address] [place] [address] 48119- 6219 Jan, [place] [id number] [place] [address] 86263- 5728 Jan, Weight gain R63.5 ; Hypothyroid E03.9 ; Hyperinsulinemia E16.1 ; Decreased renal function N28.9 and Chronic viral hepatitis B without delta-agent B18.1 [place] [address] [place] [address] 97046- 5794 December, Major depressive disorder, recurrent, mild F33.0 and Generalized anxiety disorder F41.1 [place] [address] [place] [address] 29147- 6133 December, Obesity due to excess calories, unspecified obesity severity E66.09 and Folic acid deficiency E53.8 [facility] [address], [place] [address]- 6265 December, Folic acid deficiency E53.8 [facility] [address] [place] [address] 50535- 5632 December, Folic acid deficiency E53.8 [facility] [id number] [place] [address] 05553- 1968 December, Obesity due to excess calories, unspecified obesity severity E66.09 [facility] [address] [place] [address] 25585- 6152 December, [facility] [id number] [place] [address] 10162- 6072 December, Folic acid deficiency E53.8 [facility] [id number] [place] [address] [id number] December, Encounter for other administrative examinations Z02.89 [facility] [id number] [place] [address] 06988- 1543 Dec, [facility] [id number] [place] [address] [id number] Dec, Dental caries K02.9 [facility] [address] [place] [address] 21543- 9330 Oct, Bone pain M89.8X9 [facility] [id number] [place] [address] 58034- 1295 Oct, Hypothyroid E03.9 [facility] [address] [place] [address] 04573- 3836 24 Oct, 2016 Hypothyroid E03.9 [facility] [id number] [place] [address] 96981- 4059 13 Oct, 2016 Breast cancer screening Z12.39 [facility] [id number] [place] [address] [phone] Oct, Dental examination Z01.20 [place] [id number] [place] [address] 04896- 6672 Oct, [place] [id number] [place] [address] 83130- 5902 Oct, Major depressive disorder, recurrent, mild F33.0 and Generalized anxiety disorder F41.1 [place] [id number] [place] [address] 74220- 9689 Oct, [place] [id number] [place] [address] 09533- 7541 Oct, Hypothyroid E03.9 [place] [address] 25468- 2367 Sep, Hypothyroid E03.9 ; Chronic viral hepatitis B without delta- agent B18.1 and Folic acid deficiency E53.8 [place] [address] [place] [address] 03720- 7748 Sep, Hypothyroidism, unspecified type E03.9 ; Elevated parathyroid hormone E34.9 and Chronic viral hepatitis B without delta-agent B18.1 [place] [address] [place] [address] 68303- 1762 Sep, [place] [id number] [place] [address] 67439- 1832 Sep, Elevated parathyroid hormone E34.9 [place] [address] [place] [address] 59090- 1711 Sep, [place] [address] [place] [address] 46474- 0251 Sep, Chronic hepatitis K73.9 ; Bone pain M89.8X9 and Abnormal complete blood count R79.89 [place] [address] [place] [address] 16879- 2700 Aug, Major depressive disorder, recurrent, mild F33.0 [place] [address] [place] [address]- 0871 Aug, Bone pain M89.8X9 [facility] [address] 19518- 8423 Aug, [facility] [id number] [place] [address] 36870- 4160 Jul, Chronic viral hepatitis B without delta-agent B18.1 [facility] [address] 61846- 8179 Jul, Hypothyroidism, unspecified type E03.9 [facility] [address] 16383- 5950 Jul, [facility] [address] 11699- 8003 Jul, Chronic hepatitis K73.9 and Hypothyroid E03.9 [place] [address] 48419- 9910 Jul, Low back pain M54.5 [facility] [address] 40613- 7383 Jun, Depression, major, recurrent, mild F33.0 and ADD (attention deficit disorder) F90.0 [place] [id number] [place] [address] 33949- 1022 Jun, [facility] [address] 11853- 5672 Jun, Low back pain M54.5 [facility] [id number] [place] [address] 75638- 7799 Jun, Encounter for immunization Z23 ; Major depressive disorder, recurrent, mild F33.0 and Attention-deficit hyperactivity disorder, predominantly inattentive type F90.0 [facility] [id number] [place] [address] 46583- 5578 Jun, [facility] [address] 78379- 5080 Jun, Low back pain M54.5 [facility] [id number] [place] [address] 54005- 0434 May, [facility] [id number] [place] [address] 14495- 8807 May, [facility] [id number] [place] [address] 76402- 3387 May, Essential (primary) hypertension I10 [facility] [id number] [place] [address] 45507- 1515 May, Low back pain M54.5 [facility] [id number] [place] [address] 10806- 4460 May, Low back pain M54.5 ; Chronic hepatitis K73.9 and Hypothyroid E03.9 [facility] [address] [place] [address] 50850- 6161 May, Hypothyroidism, unspecified type E03.9 [facility] [id number] [place] [address] 25750- 9590 08 May, 2016 Low back pain M54.5 [facility] [id number] [place] [address] 36562- 3520 May, [facility] [id number] [place] [address] 82477- 4269 May, [facility] [id number] [place] [address] 29940- 9930 May, Major depressive disorder, recurrent, moderate F33.1 ; Generalized anxiety disorder F41.1 ; Insomnia G47.00 and ADD (attention deficit disorder) F90.0 [facility] [id number] [place] [address] 69542- 9760 Apr, Low back pain M54.5 [facility] [id number] [place] [address] 11607- 7392 Apr, [place] [address] [place] [address] 86418- 9745 Apr, Low back pain M54.5 [place] [address] [place] [address] 81272- 3293 Apr, Low back pain M54.5 ; Tooth pain K08.8 and Seasonal allergic rhinitis due to pollen J30.1 [place] [address] [place] [address] 74907- 6184 Apr, Low back pain M54.5 [place] [address] [place] [address] 69090- 1510 Apr, [facility] Pap smear of vagina R87.622 [place] [address] [place] [address] 76640- 5194 Apr, Low back pain M54.5 [place] [address] [place] [address] 50905- 5041 Mar, [place] [address] [place] [address] 52911- 4193 Mar, Low back pain M54.5 [place] [address] [place] [address] 43098- 9660 Mar, Encounter for Papanicolaou smear for cervical cancer screening Z12.4 ; Encounter for routine gynecological examination Z01.419 and Breast cancer screening Z12.39 [place] [address] [place] [address] 22315- 9222 18 Mar, 2016 Hypothyroidism, unspecified type E03.9 [place] [address] [place] [address] 49283- 8864 14 Mar, 2016 Low back pain M54.5 ; Other chronic pain G89.29 ; Hypothyroid E03.9 and Hypothyroidism, unspecified type E03.9 [place] [address] [place] [address] 64671- 3220 Mar, Major depressive disorder, recurrent, moderate F33.1 and Attention-deficit hyperactivity disorder, predominantly inattentive type F90.0 [facility] [address], [place] [address] -6161 Mar, Bronchitis J40 [facility] [id number] [place] [address] 20216- 8248 Jan, [facility] [id number] [place] [address] 43219- 5050 Jan, [facility] [id number] [place] [address] 24182- 7103 Jan, Insomnia G47.00 [facility] [address] [place] [address] 61426- 5354 December, [facility] [address] [place] [address] 27123- 6110 December, Major depressive disorder in partial remission F32.4 and Attention-deficit hyperactivity disorder, unspecified type F90.9 [facility] [address] [place] [address] 24295- 0270 December, [facility] [id number] [place] [address] 20327- 6818 December, [facility] [id number] [place] [address] 72872- 9644 Dec, [facility] [address] [place] [address] 54138- 1971 Dec, Major depressive disorder, recurrent episode, moderate 296.32 and Attention deficit disorder of childhood without mention of hyperactivity 314.00 [facility] [address] [place] [address] 73613- 8900 Dec, Major depressive disorder, recurrent episode, mild 296.31 ; ADD (attention deficit disorder) F90.0 and Hyperlipidemia E78.5 [facility] [address], [place] [address]- 2432 Dec, Insomnia G47.00 [facility] [address] [place] [address]- 8745 Dec, Attention-deficit hyperactivity disorder, predominantly inattentive type F90.0 [facility] [id number] [place] [address] 28604- 2326 Oct, Restless legs syndrome G25.81 [facility] [address], [place] [address]- 8134 Oct, Hypothyroidism, unspecified type E03.9 [facility] [address] [address]- 3746 Oct, [facility] [id number] [place] [address] 99797- 6871 Oct, [facility] [address] [place] [address] 29413- 6290 15 Nov, 2015 Hypothyroid E03.9 and Chronic hepatitis K73.9 [facility] [id number] [place] [address] 39850- 3777 Oct, [facility] [address] [place] [address] 69690- 8408 Oct, Restless legs syndrome G25.81 ; Chronic hepatitis K73.9 ; Hypertension I10 ; Hypothyroid E03.9 and Breast cancer screening Z12.39 [facility] [address], [place] [address]- 3033 Oct, [facility] [address], [place] [address]- 7288 Oct, [facility] [address], [place] [address]- 8670 Oct, [facility] [address], [place] [address]- 8001 Oct, [facility] [address], [place] [address]- 5773 Oct, [facility] [address] [address]- 6562 10 Oct, 2015 [facility] [address], [place] [address]- 2909 05 Oct, 2015 [facility] [id number] [place] [address] 20157- 6147 Sep, [facility] [address] [place] [address] 55515- 4414 Sep, Attention-deficit hyperactivity disorder, predominantly inattentive type F90.0 and Major depressive disorder in partial remission F32.4 [facility] [address] [place] [address] 50734- 4332 Sep, [facility] [id number] [place] [address] 45858- 1336 Aug, [facility] [id number] [place] [address] 29580- 1271 Aug, [facility] [id number] [place] [address] 46103- 1150 Aug, Major depressive disorder, recurrent, mild F33.0 ; Attention -deficit hyperactivity disorder, unspecified type F90.9 and Generalized anxiety disorder F41.1 [facility] [id number], [place] [address] 08 Aug, 2015 Chronic hepatitis K73.9 ; Primary osteoarthritis of both knees M17.0 and Neuralgia M79.2 [facility] [id number], [place] [address] Jul, [facility] [id number], [place] [address] Jul, [facility] [id number] [place] [address] 36220- 9254 Jul, [facility] [id number] [place] [address] 40301- 9698 Jul, [facility] [id number] [place] [address] 83801- 6321 Jun, [facility] [id number] [place] [address] 59299- 6810 Jun, Encounter for immunization Z23 and Bronchitis J40 [facility] [id number] [place] [address] [id number]- 6713 30 May, 2015 [facility] [id number] [place] [address] 18502- 9248 May, [facility] [id number] [place] [address] 92321- 9351 May, [facility] [id number] [place] [address] 70470- 0950 May, Hypokalemia 276.8 [facility] [id number] [place] [address] 87867- 3247 08 May, 2015 Major depressive disorder, recurrent episode, mild 296.31 ; Attention deficit disorder of childhood without mention of hyperactivity 314.00 and Generalized anxiety disorder 300.02 [facility] [id number] [place] [address] 93531- 2794 May, Hypertension 401.9 and Hypokalemia 276.8 [facility] [id number] [place] [address] 81505- 1437 May, [facility] [id number] [place] [address] 58377- 6734 Apr, [facility] [id number] [place] [address] 54551- 7399 Apr, [facility] [id number] [place] [address] 08950- 7996 Apr, [facility] [id number] [place] [address] 96549- 5638 Apr, [facility] [id number], [place] [address] 2309 Mar, [facility] [address], [place] [address]- 0291 Mar, [facility] [id number] [place] [address] 68331- 6426 Mar, [facility] [id number] [place] [address] 51664- 6080 Mar, [facility] [id number] [place] [address] 69090- 5961 Mar, Arthritis of both knees 716.96 ; Hepatitis B 070.30 ; Hypertension 401.9 ; Carpal tunnel syndrome 354.0 and Cubital tunnel syndrome 354.2 [facility] [id number] [place] [address] 68957- 9073 Mar, [facility] [id number] [place] [address] 83298- 6654 Mar, [facility] [id number] [place] [address] 85071- 0713 Mar, 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, chronic, without mention of hepatitis delta 070.32 ; Chronic hepatitis C without mention of hepatic coma 070.54 and Major depressive disorder, recurrent episode, moderate 296.32 [facility] [address], [place] [address]- 54[address] Jan, [facility] [id number] [place] [address] 21816- 4736 Jan, Major depressive disorder, recurrent episode, mild 296.31 and Attention deficit disorder of childhood without mention of hyperactivity 314.00 [facility] [address], [place] [address] 0651 Jan, [facility] [id number] [place] [address] 66985- 5678 Jan, [facility] [address], [place] [address]- 3442 December, Attention deficit disorder of childhood without mention of hyperactivity 314.00 ; Major depressive disorder, recurrent episode, mild 296.31 and Generalized anxiety disorder 300.02 [facility] [address] [id number] [place] [address]- 6796 08 Dec, 2014 [facility] [address] [facility] [id number] [place] [address]- 4689 14 Dec, 2014 [facility] [address] [facility] [id number] [place] [address]- 8503 13 Dec, 2014 [facility] [address] [id number], [place] [address]- 0686 19 Oct, 2014 [facility] [address] [facility] [id number] [place] [address]- 2390 19 Oct, 2014 [facility] [address] [facility] [id number] [place] [address]- 3551 18 Oct, 2014 [facility] [id number] [place] [address]- 5661 18 Oct, 2014 [facility] [address] [facility] [id number] [place] [address]- 9870 18 Oct, 2014 [facility] [address] [facility] [id number] [place] [address]- 6460 18 Oct, 2014 [facility] [address] [facility] [id number] [place] [address]- 9406 16 Oct, 2014 [facility] [address] [facility] [id number], [place] [address]- 0729 13 Oct, 2014 [facility] [place] [facility] [address] [facility] [id number], [place] [address]- 2173 13 Oct, 2014 [facility] [place] [facility] [address] [facility] [id number], [place] [address]- 3819 12 Oct, 2014 [facility] [place] [facility] [address] [facility] [id number], [place] [address]- 2218 12 Oct, 2014 [facility] [place] [facility] [address] [facility] [id number], [place] [address]- 3426 10 Oct, 2014 [facility] [address] [facility] [id number] [place] [address]- 1176 10 Oct, 2014 [facility] [place] [facility] [address] [id number] [place] [address]- 5783 Oct, 2014 [facility] [place] [facility] [address] [id number] [place] [address]- 6737 Oct, 2014 [facility] [place] [facility] [address] [id number] [place] [address]- 9188 Oct, 2014 [facility] [place] [facility] [address] [id number] [place] [address]- 9385 Oct, 2014 [facility] [place] [facility] [address] [id number] [place] [address]- 2046 25 Oct, 2014 [facility] [place] [facility] [address] [facility] [id number] [place] [address]- 8674 19 Oct, 2014 [facility] [place] [facility] [address] [facility] [id number] [place] [address]- 6488 18 Oct, 2014 [facility] [place] [facility] [address] [facility] [id number] [place] [address]- 8390 17 Oct, 2014 [facility] [place] [facility] [address] [facility] [id number] [place] [address]- 2645 17 Oct, 2014 [facility] [place] [facility] [address] [facility] [id number] [place] [address]- 5708 11 Oct, 2014 [facility] [place] [facility] [address] [facility] [id number], [place] [address]- 2987 Oct, 2014 [facility] [place] [facility] [address] [facility] [id number] [place] [address]- 9274 Oct, 2014 [facility] [place] [facility] [address] [facility] [id number] [place] [address]- 1880 11 Oct, 2014 [facility] [place] [facility] [address] [facility] [id number], [place] [address]- 8568 10 Oct, 2014 [facility] [place] [facility] [address] [facility] [id number], [place] [address]- 3703 Oct, [facility] [address] [id number] [place] [address]- 0437 Sep, [facility] [place] [facility] [address] [id number] [place] [address]- 1714 Sep, [facility] [place] [facility] [address] [id number] [place] [address]- 9546 Sep, [facility] [place] [facility] [address] [id number] [place] [address]- 4829 Sep, [facility] [place] [facility] [address] [id number] [place] [address]- 9923 Sep, [facility] [place] [facility] [address] [id number] [place] [address]- 3218 Sep, [facility] [place] [facility] [address] [id number] [place] [address]- 1448 Sep, [facility] [place] [facility] [address] [id number] [place] [address]- 6517 Sep, [facility] [place] [facility] [address] [id number] [place] [address]- 4638 Sep, [facility] [place] [facility] [address] [id number] [place] [address]- 9846 Sep, [facility] [place] [facility] [address] [id number] [place] [address]- 9957 Sep, [facility] [place] [facility] [address] [id number], [place] [address]- 6114 Sep, [facility] [place] [facility] [address] [id number], [place] [address]- 1121 Sep, [facility] [place] [facility] [address] [id number] [place] [address]- 8518 Sep, [facility] [place] [facility] [address] [id number], [place] [address]- 2637 Sep, [facility] [place] [facility] [address] [id number] [place] [address]- 7296 Sep, [facility] [place] [facility] [address] [id number] [place] [address]- 0726 Aug, [facility] [place] [facility] [address] [id number] [place] 2716 Aug, [facility] [place] [facility] [address] [id number] [place] [address]- 2906 Aug, [facility] [place] [facility] [address] [id number] [place] [address]- 6869 Aug, [facility] [place] [facility] [address] [id number] [place] [address]- 6911 Aug, [facility] [place] [facility] [address] [id number] [place] [address]- 7739 Aug, [facility] [place] [facility] [address] [id number] [place] [address]- 1700 Aug, [facility] [place] [facility] [address] [id number] [place] [address]- 9641 20 Aug, 2014 [facility] [place] [facility] [address] [id number] [place] [address]- 5890 19 Aug, 2014 [facility] [place] [facility] [address] [id number] [place] [address]- 6191 18 Aug, 2014 [facility] [place] [facility] [address] [id number] [place] [address]- 4605 18 Aug, 2014 [facility] [place] [facility] [address] [id number] [place] [address]- 8416 16 Aug, 2014 [facility] [place] [facility] [address] [id number] [place] 4546 16 Aug, 2014 [facility] [place] [facility] [address] [id number] [place] [address]- 6316 15 Aug, 2014 [facility] [place] [facility] [address] [id number] [place] [address]- 6203 15 Aug, 2014 [facility] [place] [facility] [address] [id number] [place] [address]- 9271 Aug, [facility] [place] [facility] [address] [id number] [place] [address]- 1673 Aug, [facility] [place] [facility] [address] [id number] [place] [address]- 8559 Aug, [facility] [place] [facility] [address] [id number] [place] [address]- 0419 Aug, [facility] [place] [facility] [address] [id number] [place] [address]- 0566 Aug, [facility] [place] [facility] [address] [id number] [place] [address]- 6180 Aug, [facility] [place] [facility] [address] [id number] [place] [address]- 1202 Aug, [facility] [place] [facility] [address] [id number] [place] [address]- 6645 Aug, [facility] [place] [facility] [address] [id number] [place] [address]- 6596 Aug, [facility] [place] [facility] [address] [id number] [place] [address]- 6865 Aug, [facility] [place] [facility] [address] [id number], [place] [address]- 7742 Jul, [facility] [place] [facility] [address] [id number], [place] [address]- 5531 Jul, [facility] [place] [facility] [address] [id number] [place] [address]- 9791 Jul, [facility] [place] [facility] [address] [id number] [place] [address]- 2204 Jul, [facility] [place] [facility] [address] [id number] [place] [address]- 5231 Jul, [facility] [place] [facility] [address] [id number] [place] [address]- 6269 Jul, [facility] [place] [facility] [address] [id number] [place] [address]- 3705 Jun, [facility] [place] [facility] [address] [id number] [place] [address]- 3367 Jun, [facility] [place] [facility] [address] [id number] [place] [address]- 6988 Jun, [facility] [place] [facility] [address] [id number] [place] [address]- 3623 Jun, [facility] [place] [facility] [address] [id number] [place] [address]- 8159 Jun, [facility] [place] [facility] [address] [id number] [place] [address]- 3792 Jun, [facility] [place] [facility] [address] [id number] [place] [address]- 5561 Jun, [facility] [place] [facility] [address] [id number] [place] [address]- 7181 Jun, [facility] [place] [facility] [address] [id number] [place] [address]- 6670 16 May, 2013 [facility] [place] [facility] [address] [id number] [place] [address]- 8928 16 Sep, 2013 [facility] [place] [facility] [address] [id number] [place] [address]- 2543 15 May, 2013 [facility] [place] [facility] [address] [id number] [place] [address]- 9697 15 Sep, 2013 [facility] [place] [facility] [address] [id number] [place] [address]- 9148 08 Sep, 2013 [facility] [place] [facility] [address] [id number] [place] [address]- 1881 08 Sep, 2013 [facility] [place] [facility] [address] [id number] [place] [address]- 3041 May, [facility] [place] [facility] [address] [id number] [place] [address]- 2117 May, [facility] [place] [facility] [address] [id number] [place] [address]- 5703 Apr, [facility] [place] [facility] [address] [id number] [place] [address]- 2399 Apr, [facility] [place] [facility] [address] [id number] [place] [address]- 7625 Apr, [facility] [place] [facility] [address] [id number] [place] [address]- 7969 Apr, [facility] [place] [facility] [address] [id number] [place] [address]- 0969 Apr, [facility] [place] [facility] [address] [id number] [place] [address]- 8504 Apr, [facility] [place] [facility] [address] [id number] [place] [address]- 1974 Apr, [facility] [place] [facility] [address] [id number] [place] [address]- 4614 Apr, [facility] [place] [facility] [address] [id number] [place] [address]- 2223 Apr, [facility] [place] [facility] [address] [id number] [place] [address]- 2183 Apr, [facility] [place] [facility] [address] [id number] [place] [address]- 9022 Apr, [facility] [place] [facility] [address] [id number] [place] [address]- 3187 Apr, [facility] [place] [facility] [address] [id number] [place] [address]- 1831 Apr, [facility] [place] [facility] [address] [id number] [place] [address]- 4066 Mar, [facility] [place] [facility] [address] [id number] [place] [address]- 0311 Mar, [facility] [place] [facility] [address] [id number] [place] [address]- 9513 Mar, [facility] [place] [facility] [address] [id number] [place] [address]- 1693 Mar, [facility] [place] [facility] [address] [id number] [place] [address]- 6721 Jan, [facility] [place] [facility] [address] [id number] [place] [address]- 3399 Jan, [facility] [place] [facility] [address] [id number] [place] [address]- 3127 December, [facility] [place] [facility] [address] [id number] [place] [address]- 7899 December, [facility] [place] [facility] [address] [id number] [place] [address]- 8678 December, [facility] [place] [facility] [address] [id number] [place] [address]- 9142 December, [facility] [place] [facility] [address] [id number] [place] [address]- 0088 December, [facility] [place] [facility] [address] [id number] [place] [address]- 2824 December, [facility] [place] [facility] [address] [id number] [place] [address]- 7813 December, [facility] [place] [facility] [address] [id number] [place] [address]- 8449 December, [facility] [place] [facility] [address] [id number] [place] [address]- 4686 Dec, [facility] [place] [facility] [address] [id number] [place] [address]- 4073 Dec, [facility] [place] [facility] [address] [id number] [place] [address]- 1508 Dec, [facility] [place] [facility] [address] [id number] [place] [address]- 3179 24 Dec, 2013 [facility] [place] [facility] [address] [id number] [place] [address]- 8024 Oct, [facility] [place] [facility] [address] [id number] [place] [address]- 6051 Oct, [facility] [place] [facility] [address] [id number] [place] [address]- 2272 Oct, [facility] [place] [facility] [address] [id number] [place] [address]- 4198 Oct, [facility] [place] [facility] [address] [id number] [place] [address]- 3534 Oct, [facility] [place] [facility] [address] [facility] [id number] [place] [address]- 4785 Oct, [facility] [place] [facility] [address] [id number] [place] [address]- 1156 Oct, [facility] [place] [facility] [address] [id number] [place] [address]- 4481 Oct, [facility] [place] [facility] [address] [id number] [place] [address]- 8760 Oct, [facility] [place] [facility] [address] [facility] [id number] [place] [address]- 6598 Oct, [facility] [place] [facility] [address] [id number] [place] [address]- 8654 Oct, [facility] [place] [facility] [address] [id number] [place] [address]- 9230 Oct, [facility] [place] [facility] [address] [id number] [place] [address]- 5646 Oct, [facility] [place] [facility] [address] [id number] [place] [address]- 4394 Oct, [facility] [place] [facility] [address] [id number] [place] [address]- 0087 Oct, 2013 [facility] [place] [facility] [address] [id number] [place] [address]- 9934 Oct, [facility] [place] [facility] [address] [id number] [place] [address]- 6729 Oct, 2013 [facility] [place] [facility] [address] [id number] [place] [address]- 0153 Oct, 2013 [facility] [place] [facility] [address] [id number] [place] [address]- 5279 Oct, [facility] [place] [facility] [address] [id number] [place] [address]- 7543 Oct, [facility] [place] [facility] [address] [id number] [place] [address]- 9235 Oct, [facility] [place] [facility] [address] [id number] [place] [address]- 2066 Oct, [facility] [place] [facility] [address] [id number] [place] [address]- 1763 Sep, [facility] [place] [facility] [address] [id number] [place] [address]- 2236 Sep, [facility] [place] [facility] [address] [facility] [id number] [place] [address]- 3385 Sep, [facility] [place] [facility] [address] [id number] [place] [address]- 7129 Sep, [facility] [place] [facility] [address] [id number], [place] [address]- 5595 Aug, [facility] [place] [facility] [address] [id number] [place] [address]- 5777 Aug, [facility] [place] [facility] [address] [facility] [id number] [place] [address]- 1712 Aug, [facility] [place] [facility] [address] [id number], [place] [address]- 6679 Aug, [facility] [place] [facility] [address] [id number] [place] [address]- 1632 Aug, [facility] [place] [facility] [address] [id number] [place] [address]- 2753 Aug, [facility] [place] [facility] [address] [id number] [place] [address]- 4950 Aug, [facility] [place] [facility] [address] [id number] [place] 2750 Aug, [facility] [place] [facility] [address] [id number] [place] [address]- 6137 Aug, [facility] [place] [facility] [address] [id number] [place] [address]- 6857 Jul, [facility] [place] [facility] [address] [id number] [place] [address]- 3937 Jul, [facility] [place] [facility] [address] [id number] [place] [address]- 0584 Jul, [facility] [place] [facility] [address] [id number] [place] [address]- 9822 Jul, [facility] [place] [facility] [address] [id number] [place] [address]- 7172 Jul, [facility] [place] [facility] [address] [id number] [place] [address]- 3260 Jul, [facility] [place] [facility] [address] [id number] [place] [address]- 4525 Jul, [facility] [place] [facility] [address] [id number] [place] [address]- 6194 Jul, [facility] [place] [facility] [address] [id number] [place] [address]- 6366 Jun, [facility] [place] [facility] [address] [id number] [place] [address]- 2000 Jun, [facility] [place] [facility] [address] [id number] [place] [address]- 8804 Jun, [facility] [place] [facility] [address] [id number] [place] [address]- 9000 Jun, [facility] [place] [facility] [address] [id number] [place] [address] Jun, [facility] [place] [facility] [address] [id number] [place] [address] Jun, [facility] [place] [facility] [address] [id number] [place] [address] Jun, [facility] [place] [facility] [address] [id number] [place] [address] Jun, [facility] [place] [facility] [address] [id number] [place] [address] 30 May, 2013 [facility] [place] [facility] [address] [id number] [place] [address] 26 May, 2013 [facility] [place] [facility] [address] [id number] [place] [address] 23 May, 2013 [facility] [place] [facility] [address] [id number] [place] [address] 19 May, 2013 [facility] [place] [facility] [address] [id number] [place] [address] 12 May, 2013 [facility] [place] [facility] [address] [id number], [place] [address] May, [facility] [place] [facility] [address] [id number], [place] [address] Apr, [facility] [place] [facility] [address] [id number] [place] [address] Apr, [facility] [place] [facility] [address] [id number] [place] [address] Apr, [facility] [place] [facility] [address] [id number] [place] [address] Apr, [facility] [place] [facility] [address] [id number] [place] [address] Apr, [facility] [address] [id number] [place] [address] Apr, [facility] [place] [facility] [address] [id number] [place] [address] Apr, [facility] [address] [id number] [place] [address] Mar, [facility] [place] [facility] [address] [id number] [place] [address] Mar, [facility] [place] [facility] [address] [id number] [place] [address] Mar, [facility] [place] [facility] [address] [id number] [place] [address] Mar, [facility] [place] [facility] [address] [id number] [place] [address] Mar, [facility] [address] [id number] [place] [address] Mar, [facility] [place] [facility] [address] [id number] [place] [address] 65[address] Mar, [facility] [address] [id number] [place] [address] Jan, [facility] [place] [facility] [address] [id number] [place] [address] Jan, [facility] [place] [facility] [address] [id number] [place] [address] Jan, [facility] [place] [facility] [address] [id number] [place] [address] Jan, [facility] [place] [facility] [address] [id number] [place] [address] Jan, [facility] [place] [facility] [address] [id number] [place] [address] Jan, [facility] [address] [id number] [place] [address] Jan, [facility] [address] [id number] [place] [address] December, [facility] [address] [id number] [place] [address] December, [facility] [address] [id number] [place] [address] December, [facility] [address] [id number] [place] [address] December, [facility] [address] [id number] [place] [address] 30 Dec, 2012 [facility] [address] [id number] [place] [address] Dec, [facility] [address] [id number] [place] [address] Dec, [facility] [address] [id number] [place] [address] 29 Oct, 2012 [facility] [address] [id number] [place] [address] 164[address] Oct, [facility] [place] [facility] [address] [id number] [place] [address] Oct, [facility] [place] [facility] [address] [id number], [place] [address] Oct, [facility] [place] [facility] [address] [id number] [place] [address] Oct, [facility] [place] [facility] [address] [id number] [place] [address] Oct, [facility] [place] [facility] [address] [id number], [place] [address] 18 Oct, 2012 [facility] [place] [facility] [address] [id number], [place] [address] Oct, [facility] [address] [id number] [place] [address] Oct, [facility] [address] [id number] [place] [address]- [address] 08 Oct, 2012 [facility] [address] [id number] [place] [address]- 98[address] Oct, [facility] [address] [id number] [place] [address]- [address] Sep, [facility] [address] [id number] [place] [address] Sep, [facility] [address] [id number] [place] [address]- [address] Sep, [facility] [address] [id number] [place] [address] 07 Aug, 2012 [facility] [address] [id number] [place] [address]- [address] Aug, [facility] [address] [id number] [place] [address]- 28[address] Aug, [facility] [address] [facility] [id number] [place] [address] Aug, [facility] [address] [id number] [place] [address] Jul, [facility] [place] [facility] [address] [id number] [place] [address]- [address] Jul, [facility] [place] [facility] [address] [id number] [place] [address]- [address] Jul, [facility] [place] [facility] [address] [id number] [place] [address]- [address] Jul, [facility] [address] [id number], [place] [address] Jul, [facility] [place] [facility] [address] [id number] [place] [address]- 6060 Jul, [facility] [place] [facility] [address] [id number] [place] [address]- [address] Jul, [facility] [place] [facility] [address] [id number] [place] [address]- 45[address] Jul, [facility] [place] [facility] [address] [id number] [place] [address]- 34[address] Jun, [facility] [place] [facility] [address] [id number] [place] [address]- 480[address] Jun, [facility] [place] [facility] [address] [id number] [place] [address]- [address] Jun, [facility] [place] [facility] [address] [id number] [place] [address]- [address] Jun, [facility] [place] [facility] [address] [id number] [place] [address] Jun, [facility] [place] [facility] [address] [id number] [place] [address] May, [facility] [place] [facility] [address] [id number] [place] [address] May, [facility] [place] [facility] [address] [id number] [place] [address] 18 May, 2012 [facility] [place] [facility] [address] [id number] [place] [address] May, [facility] [place] [facility] [address] [id number] [place] [address] May, [facility] [place] [facility] [address] [id number] [place] [address] Apr, [facility] [place] [facility] [address] [id number] [place] [address] Apr, [facility] [place] [facility] [address] [id number] [place] [address] Apr, [facility] [place] [facility] [address] [id number] [place] [address] Apr, [facility] [place] [facility] [address] [id number] [place] [address] Apr, [facility] [place] [facility] [address] [id number] [place] [address] Apr, [facility] [place] [facility] [address] [id number] [place] [address] Apr, [facility] [place] [facility] [address] [id number] [place] [address] Mar, [facility] [place] [facility] [address] [id number] [place] [address] Mar, [facility] [place] [facility] [address] [id number] [place] [address] Mar, [facility] [place] [facility] [address] [id number] [place] [address] Mar, [facility] [place] [facility] [address] [id number] [place] [address] Jan, [facility] [place] [facility] [address] [id number] [place] [address] Jan, [facility] [place] [facility] [address] [id number] [place] [address] Jan, [facility] [place] [facility] [address] [id number] [place] [address] Jan, [facility] [place] [facility] [address] [id number] [place] [address] Jan, [facility] [place] [facility] [address] [id number] [place] [address] Jan, [facility] [place] [facility] [address] [id number] [place] [address] December, [facility] [place] [facility] [address] [id number] [place] [address] December, [facility] [address] [id number] [place] [address] December, [facility] [address] [id number] [place] [address] December, [facility] [address] [id number] [place] [address] Dec, [facility] [address] [id number] [place] [address] Dec, [facility] [address] [id number] [place] [address] Oct, [facility] [address] [id number] [place] [address] Oct, [facility] [address] [id number] [place] [address] Oct, [facility] [address] [id number] [place] [address] 16 Nov, 2011 [facility] [address] [id number] [place] [address] Oct, [facility] [address] [facility] [id number] [place] [address] Oct, [facility] [address] [id number] [place] [address] Oct, [facility] [address] [id number] [place] [address] Oct, [facility] [place] [facility] [address] [id number] [place] [address] Oct, [facility] [address] [id number] [place] [address] Oct, [facility] [address] [id number] [place] [address] Oct, [facility] [address] [id number] [place] [address] Sep, [facility] [place] [facility] [address] [id number] [place] [address] Sep, [facility] [place] [facility] [address] [id number] [place] [address] Sep, [facility] [place] [facility] [address] [id number] [place] [address] Sep, [facility] [place] [facility] [address] [id number] [place] [address] Sep, [facility] [place] [facility] [address] [id number] [place] [address] Sep, [facility] [place] [facility] [address] [id number] [place] [address] Sep, [facility] [place] [facility] [address] [id number] [place] [address] Sep, [facility] [place] [facility] [address] [id number] [place] [address] Aug, [facility] [place] [facility] [address] [id number] [place] [address] Aug, [facility] [place] [facility] [address] [id number] [place] [address] Aug, [facility] [place] [facility] [address] [id number], [place] [address] Jul, [facility] [place] [facility] [address] [id number] [place] [address] Jul, [facility] [place] [facility] [address] [id number] [place] [address] 18 Jul, 2011 [facility] [place] [facility] [address] [id number] [place] [address] 17 Jul, 2011 [facility] [place] [facility] [address] [id number] [place] [address] 08 Jul, 2011 [facility] [address] [id number] [place] [address] 02 Jul, 2011 [facility] [place] [facility] [address] [id number] [place] [address] 31 Jun, 2011 [facility] [place] [facility] [address] [id number] [place] [address] 20 Jun, 2011 [facility] [place] [facility] [address] [id number] [place] [address] 20 Mar, 2011 [facility] [place] [facility] [address] [id number] [place] [address] 14 Dec, 2010 [facility] [place] [facility] [address] [id number] [place] [address] 14 Oct, 2010 [facility] [place] [facility] [address] [id number] [place] [address] 06 Aug, 2010 [facility] [place] [facility] [address] [id number] [place] [address] 97[address] 30 Jul, 2010 [facility] [place] [facility] [address] [id number] [place] [address] 7671 11 Jul, 2010 [facility] [place] [facility] [address] [facility] [id number] [place] [address] 10 Jul, 2010 [facility] [place] [facility] [address] [id number] [place] [address]387 09 Jul, 2010 [facility] [place] [facility] [address] [id number] [place] [address] 7654 08 Jul, 2010 [facility] [place] [facility] [address] [id number] [place] [address]- 5964 22 Aug, 2009 [facility] [place] [facility] [address] [id number] [place] [address]- 7259 15 Aug, 2009 [facility] [place] [facility] [address] [id number] [place] [address]- 5089 14 Aug, 2009 [facility] [place] [facility] [address] [id number] [address] Aug, [facility] [id number] [place] [address] Jul, [facility] [id number], [place] [address] Jul, [facility] [id number] [address] Jul, [facility] [id number] [place] [address] Jul, [facility] [id number], [place] [address] Jun, [facility] [address] [id number] [address] Jun, IMMUNIZATIONS No Known Immunizations SOCIAL HISTORY Never Assessed REASON FOR VISIT PLAN OF CARE VITAL SIGNS MEDICATIONS Unknown [...]
--- OUTSIDE RECORDS SUMMARY | 2018-03-17 11:45 | XMS REPORT ---
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 Active 54702853 Problem Attention-deficit hyperactivity disorder, predominantly inattentive type F90.0 Active 42896673 Problem Obstructive sleep apnea G47.33 Active 67421445 Problem Primary insomnia F51.01 Active 6962089 Problem Neuralgia M79.2 Active 91404769 Problem Cannabis use disorder, mild, abuse F12.10 Active 04179149 Problem Folic acid deficiency E53.8 Active 899131354 Problem Restless legs G25.81 Active 95954564 Problem Major depressive disorder, recurrent, mild F33.0 Active 91198562 Problem Generalized anxiety disorder F41.1 Active 43675751 Problem Major depressive disorder, recurrent episode, moderate F33.1 Active 418301420 Problem Hypertension I10 Active 05356662 Problem Hyperlipidemia E78.5 Active 84123118 Problem Primary osteoarthritis of both knees M17.0 Active 188558927 Problem Chronic hepatitis K73.9 Active 07403846 Problem Low back pain M54.5 Active 461729290 Problem Chronic viral hepatitis B without delta-agent B18.1 Active 822848615 Problem Insomnia G47.00 Active 266453244 Problem Hypothyroid E03.9 Active 27015068 Problem Depression, major, recurrent, mild F33.0 Active 510213213 Problem Obesity due to excess calories, unspecified obesity severity E66.09 Active 739109254 ALLERGIES Substance Reaction Event Type Date Status Trazodone HCl "weird dreams" Drug Allergy May, Active ENCOUNTERS Encounter Location Date Diagnosis [facility] [place] [address] [facility] [id number] [address] December, [facility] [place] [id number] [place] [address] 06085- 3895 Dec, Bone pain M89.8X9 [facility] [place] [address] [address]- [address] Dec, [facility] [place] [id number] [place] [address] 41783- 7655 Oct, [facility] [place] [address] [address]68- [address]5 Oct, Syncope, unspecified syncope type R55 ; Primary insomnia F51.01 ; Dry mouth R68.2 and Cannabis use disorder, mild, abuse F12.10 [facility] [place] [address] [address]- 0931 Oct, [facility] [place] [address] 89791- 0037 Sep, [facility] [place] [address] 66700- 4550 Sep, [facility] [place] [id number] [place] [address] 20144- 0911 Sep, [facility] [address] [id number] Sep, Dental examination Z01.20 [facility] [place] [id number] [place] [address] 17321- 5554 Sep, Dental examination Z01.20 [facility] [place] [address] 42536- 7673 Sep, Sinus congestion R09.81 ; Mouth sores K13.79 ; Low back pain M54.5 and Mouth swelling R22.0 [facility] [place] [id number] [place] [address] 53117- 2424 Aug, Low back pain M54.5 [facility] [place] [id number] [place] [address] 64547- 9507 Aug, Low back pain M54.5 [facility] [place] [address] 04991- 2151 Jul, [facility] [place] [address] 50536- 9263 Jul, Encounter for immunization Z23 ; Hyperinsulinemia E16.1 ; Hypothyroid E03.9 ; Decreased renal function N28.9 and Muscle cramps R25.2 [facility] [place] [address] 36621- 3563 Jul, [facility] [place] [address] 39322- 3761 Jul, [place] [address] 82516- 3400 Jul, [place] [address] 25883- 5926 Jul, Major depressive disorder, recurrent, mild F33.0 [facility] [place] [address] 54639- 8161 Jul, Acquired cyst of kidney N28.1 ; Acidosis E87.2 and Hyperkalemia E87.5 [place] [address] 82634- 8857 Jul, Major depressive disorder, recurrent, mild F33.0 ; Attention -deficit hyperactivity disorder, predominantly inattentive type F90.0 and Generalized anxiety disorder F41.1 [facility] [place] [id number] [place] [address] 57738- 0687 02 Jul, 2017 Low back pain M54.5 [facility] [place] [address] 64215- 8842 Jun, Cough R05 ; Low back pain M54.5 and Pre-syncope R55 [facility] [place] [address] 09610- 4637 Jun, Low back pain M54.5 [facility] [address] [place] [id number] 04 Jun, 2017 Dental caries K02.9 [place] [id number] [place] [address] 23862- 0397 Jun, [place] [id number] [place] [address] 09789- 7410 Jun, Major depressive disorder, recurrent, mild F33.0 ; Attention -deficit hyperactivity disorder, predominantly inattentive type F90.0 and Generalized anxiety disorder F41.1 [place] [id number] [place] [address] 20134- 1957 13 May, 2017 Vertigo R42 ; Confusion R41.0 ; Weakness R53.1 and Vision changes H53.9 [place] [id number] [place] [address] 56401- 7114 May, [place] [id number] [place] [address] 99297- 0276 May, [place] [id number] [place] [address] 35395- 9269 08 May, 2017 Low back pain M54.5 [place] [id number] [place] [address] 99517- 0520 05 May, 2017 Major depressive disorder, recurrent, mild F33.0 ; Attention -deficit hyperactivity disorder, predominantly inattentive type F90.0 and Generalized anxiety disorder F41.1 [place] [id number] [place] [address] 94088- 4696 May, [place] [id number] [place] [address] 55424- 7904 May, Acute worsening of stage 3 chronic kidney disease N18.3 [place] [id number] [place] [address] 71407- 8718 Apr, [place] [id number] [place] [address] 14161- 4008 Apr, Acute allergic rhinitis due to pollen, unspecified seasonality J30.1 ; Restless legs G25.81 and Low back pain M54.5 [facility] [place] [id number] [place] [address] 96314- 9538 10 Apr, 2017 Primary osteoarthritis of both knees M17.0 [facility] [place] [id number] [place] [address] 15709- 3850 08 Apr, 2017 Generalized anxiety disorder F41.1 [facility] [place] [address] 67506- 5015 Apr, Major depressive disorder, recurrent, mild F33.0 ; Attention -deficit hyperactivity disorder, predominantly inattentive type F90.0 and Generalized anxiety disorder F41.1 [facility] [place] [address] 99787- 9445 Apr, [facility] [place] [address] 25866- 7792 Mar, Major depressive disorder, recurrent episode, moderate F33.1 ; Generalized anxiety disorder F41.1 and ADHD, predominantly inattentive type F90.0 [facility] [address] [address]70 -4623 Mar, Abscess L02.91 [facility] [place] [address] 20495- 5154 Mar, Hyperinsulinemia E16.1 [facility] [place] [id number] [place] [address] 10068- 9115 Mar, Decreased renal function N28.9 [facility] [address] [id number] Mar, Dental examination Z01.20 [facility] [place] [address] 76713- 3464 Mar, Hyperinsulinemia E16.1 [facility] [place] [id number] [place] [address] 01080- 2302 Mar, Hyperinsulinemia E16.1 [facility] [address] [id number] Mar, 2017 Dental examination Z01.20 and Dental caries K02.9 [place] [id number] [place] [address] 78169- 3357 Mar, Chronic viral hepatitis B without delta-agent B18.1 ; Folic acid deficiency E53.8 ; Hyperinsulinemia E16.1 and Decreased renal function N28.9 [place] [address] 95284- 5573 Mar, Major depressive disorder, recurrent, mild F33.0 [place] [address] 31859- 7544 Mar, [place] [address] 52186- 0042 Mar, Chronic hepatitis K73.9 ; Hyperinsulinemia E16.1 ; Localized edema R60.0 ; Illicit drug use F19.90 ; Vision changes H53.9 and Obesity due to excess calories, unspecified obesity severity E66.09 [place] [id number] [place] [address] 33703- 9807 Jan, Major depressive disorder, recurrent, mild F33.0 [place] [id number] [place] [address] 12210- 0042 Jan, Chronic viral hepatitis B without delta-agent B18.1 [place] [id number] [place] [address] 86434- 8981 Jan, [place] [id number] [place] [address] 22701- 3616 Jan, Weight gain R63.5 ; Hypothyroid E03.9 ; Hyperinsulinemia E16.1 ; Decreased renal function N28.9 and Chronic viral hepatitis B without delta-agent B18.1 [place] [id number] [place] [address] 07078- 4468 December, Major depressive disorder, recurrent, mild F33.0 and Generalized anxiety disorder F41.1 [place] [id number] [place] [address] 89877- 1147 December, Obesity due to excess calories, unspecified obesity severity E66.09 and Folic acid deficiency E53.8 [facility] [place] [address] [place] [address] 05967- 2920 December, Folic acid deficiency E53.8 [facility] [place] [address] [place] [address] 84475- 2971 December, Folic acid deficiency E53.8 [facility] [place] [id number] [place] [address] 84562- 9150 December, Obesity due to excess calories, unspecified obesity severity E66.09 [facility] [place] [id number] [place] [address] 79174- 7956 December, [facility] [place] [id number] [place] [address] 58363- 9470 December, Folic acid deficiency E53.8 [facility] [id number] [place] [address] [id number] December, Encounter for other administrative examinations Z02.89 [facility] [place] [id number] [place] [address] 91868- 3078 Dec, [facility] [id number] [place] [address] [id number] Dec, Dental caries K02.9 [facility] [place] [id number] [place] [address] 63469- 2523 Oct, Bone pain M89.8X9 [facility] [place] [address] [place] [address] 96325- 9246 Oct, Hypothyroid E03.9 [facility] [place] [id number] [place] [address] 46012- 0939 24 Oct, 2016 Hypothyroid E03.9 [facility] [place] [id number] [place] [address] 25561- 2819 13 Oct, 2016 Breast cancer screening Z12.39 [facility] [address] [id number] 08 Oct, 2016 Dental examination Z01.20 [place] [id number] [place] [address] 98996- 5286 Oct, [facility] [place] [address] [place] [address] 20226- 7133 Oct, Major depressive disorder, recurrent, mild F33.0 and Generalized anxiety disorder F41.1 [place] [id number] [place] [address] 05536- 0069 Oct, [place] [id number] [place] [address] 82299- 7516 Oct, Hypothyroid E03.9 [place] [id number] [place] [address] 90957- 4137 Sep, Hypothyroid E03.9 ; Chronic viral hepatitis B without delta- agent B18.1 and Folic acid deficiency E53.8 [place] [address] [place] [address] 23732- 7234 Sep, Hypothyroidism, unspecified type E03.9 ; Elevated parathyroid hormone E34.9 and Chronic viral hepatitis B without delta-agent B18.1 [place] [address] [place] [address] 92219- 7653 Sep, [place] [id number] [place] [address] 83646- 3545 Sep, Elevated parathyroid hormone E34.9 [place] [address] [place] [address] 51804- 8163 Sep, [place] [id number] [place] [address] 48942- 7633 Sep, Chronic hepatitis K73.9 ; Bone pain M89.8X9 and Abnormal complete blood count R79.89 [place] [id number] [place] [address] 72844- 0383 Aug, Major depressive disorder, recurrent, mild F33.0 [facility] [place] [address] [place] [address] 98059- 0679 Aug, Bone pain M89.8X9 [facility] [place] [id number] [place] [address] 48526- 3791 Aug, [facility] [place] [id number] [place] [address] 95003- 7215 Jul, Chronic viral hepatitis B without delta-agent B18.1 [facility] [place] [id number] [place] [address] 84663- 3253 Jul, Hypothyroidism, unspecified type E03.9 [place] [id number] [place] [address] 99054- 9974 Jul, [place] [address] 76973- 4805 Jul, Chronic hepatitis K73.9 and Hypothyroid E03.9 [place] [id number] [place] [address] 58948- 4838 Jul, Low back pain M54.5 [place] [id number] [place] [address] 55287- 7182 Jun, Depression, major, recurrent, mild F33.0 and ADD (attention deficit disorder) F90.0 [place] [id number] [place] [address] 19839- 5848 Jun, [facility] [place] [id number] [place] [address] 25832- 3583 Jun, Low back pain M54.5 [facility] [place] [address] 47114- 6047 Jun, Encounter for immunization Z23 ; Major depressive disorder, recurrent, mild F33.0 and Attention-deficit hyperactivity disorder, predominantly inattentive type F90.0 [facility] [place] [id number] [place] [address] 02395- 0807 Jun, [facility] [place] [id number] [place] [address] 61283- 0379 Jun, Low back pain M54.5 [facility] [place] [address] 17238- 0109 May, [facility] [place] [address] 18797- 8751 May, [facility] [place] [address] 76847- 1931 May, Essential (primary) hypertension I10 [facility] [place] [address] 21171- 0030 May, Low back pain M54.5 [facility] [place] [id number] [place] [address] 84990- 6263 May, Low back pain M54.5 ; Chronic hepatitis K73.9 and Hypothyroid E03.9 [facility] [place] [address] 05063- 8663 May, Hypothyroidism, unspecified type E03.9 [facility] [place] [address] 66019- 0216 May, Low back pain M54.5 [facility] [place] [id number] [place] [address] 60132- 2990 May, [facility] [place] [address] 97039- 6743 May, [facility] [place] [id number] [place] [address] 06351- 2946 May, Major depressive disorder, recurrent, moderate F33.1 ; Generalized anxiety disorder F41.1 ; Insomnia G47.00 and ADD (attention deficit disorder) F90.0 [facility] [place] [id number] [place] [address] 34753- 0169 Apr, Low back pain M54.5 [facility] [place] [address] [place] [address]- 4455 Apr, [facility] [place] [id number] [place] [address] 78830- 7847 Apr, Low back pain M54.5 [place] [id number] [place] [address] 89264- 7659 Apr, Low back pain M54.5 ; Tooth pain K08.8 and Seasonal allergic rhinitis due to pollen J30.1 [place] [id number] [place] [address] 39149- 9989 Apr, Low back pain M54.5 [place] [id number] [place] [address] 69997- 3726 Apr, LGSIL Pap smear of vagina R87.622 [place] [id number] [place] [address] 06166- 4223 Apr, Low back pain M54.5 [place] [id number] [place] [address] 14146- 7665 Mar, [place] [id number] [place] [address] 82543- 5939 Mar, Low back pain M54.5 [place] [id number] [place] [address] 09464- 3439 Mar, Encounter for Papanicolaou smear for cervical cancer screening Z12.4 ; Encounter for routine gynecological examination Z01.419 and Breast cancer screening Z12.39 [place] [id number] [place] [address] 82472- 2051 18 Mar, 2016 Hypothyroidism, unspecified type E03.9 [place] [id number] [place] [address] 89073- 0366 14 Mar, 2016 Low back pain M54.5 ; Other chronic pain G89.29 ; Hypothyroid E03.9 and Hypothyroidism, unspecified type E03.9 [place] [id number] [place] [address] 28700- 8502 Mar, Major depressive disorder, recurrent, moderate F33.1 and Attention-deficit hyperactivity disorder, predominantly inattentive type F90.0 [facility] [id number] [place] [address] 19225 -9805 Mar, Bronchitis J40 [facility] [place] [id number] [place] [address] 89857- 2016 Jan, [facility] [place] [address] 08700- 1448 Jan, [facility] [place] [address] 60236- 0678 Jan, Insomnia G47.00 [place] [address] 56041- 1597 December, [facility] [place] [address] 66360- 6361 December, Major depressive disorder in partial remission F32.4 and Attention-deficit hyperactivity disorder, unspecified type F90.9 [facility] [place] [id number] [place] [address] 20290- 4205 December, [place] [id number] [place] [address] 27970- 2813 December, [facility] [place] [id number] [place] [address] 60846- 2773 Dec, [facility] [place] [id number] [place] [address] 59796- 7106 Dec, Major depressive disorder, recurrent episode, moderate 296.32 and Attention deficit disorder of childhood without mention of hyperactivity 314.00 [place] [id number] [place] [address] 71578- 7798 Dec, Major depressive disorder, recurrent episode, mild 296.31 ; ADD (attention deficit disorder) F90.0 and Hyperlipidemia E78.5 [facility] [place] [address] [address] Dec, Insomnia G47.00 [facility] [place] [id number] [address] Dec, Attention-deficit hyperactivity disorder, predominantly inattentive type F90.0 [facility] [place] [id number], [place] [address] Oct, Restless legs syndrome G25.81 [facility] [place] [id number] [place] [id number] Oct, Hypothyroidism, unspecified type E03.9 [facility] [place] [id number] [place] [address] Oct, [facility] [place] [id number] [place] [address] Oct, [facility] [place] [id number] [place] [address] Oct, Hypothyroid E03.9 and Chronic hepatitis K73.9 [facility] [place] [id number] [place], [place] [address] 36160- 2664 Oct, [facility] [place] [id number] [place] [address] 66396- 7303 08 Nov, 2015 Restless legs syndrome G25.81 ; Chronic hepatitis K73.9 ; Hypertension I10 ; Hypothyroid E03.9 and Breast cancer screening Z12.39 [facility] [place] [address], [place] [address] 6[address] Oct, [facility] [place] [address], [place] [address] 1238 Oct, [facility] [place] [id number] [place] [address] 62570- 6699 Oct, [facility] [place] [address], [place] [address] 6590 Oct, [facility] [place] [id number] [place] [address] 46741- 1848 Oct, [facility] [place] [address], [place] [address] 2351 Oct, [facility] [place] [address], [place] [address] 7056 Oct, [facility] [place] [address], [place] [address]- 0868 Sep, [facility] [place] [id number] [place] [address] 20713- 3779 Sep, Attention-deficit hyperactivity disorder, predominantly inattentive type F90.0 and Major depressive disorder in partial remission F32.4 [facility] [place] [id number] [place] [address] 69336- 3610 Sep, [facility] [place] [id number] [place] [address] 87651- 4141 Aug, [facility] [place] [id number] [place] [address] 13447- 5108 Aug, [facility] [place] [address], [place] [address]- 7531 Aug, Major depressive disorder, recurrent, mild F33.0 ; Attention -deficit hyperactivity disorder, unspecified type F90.9 and Generalized anxiety disorder F41.1 [facility] [place] [address], [place] [address] 6800 Aug, Chronic hepatitis K73.9 ; Primary osteoarthritis of both knees M17.0 and Neuralgia M79.2 [facility] [place] [address], [place] [address] 8301 Jul, [facility] [place] [id number] [place] [address] 15718- 9466 Jul, [facility] [place] [address], [place] [address] 1800 Jul, [facility] [place] [address], [place] [address]- 9715 Jul, [facility] [place] [id number] [place] [address] 25236- 2050 Jun, [facility] [place] [address] [address]- 7156 Jun, Encounter for immunization Z23 and Bronchitis J40 [facility] [place] [address] 18900- 2598 30 May, 2015 [facility] [place] [address] 90978- 5379 May, [facility] [place] [address] 58499- 7219 May, [facility] [place] [address] 96261- 0368 May, Hypokalemia 276.8 [facility] [place] [address] 47514- 6923 08 May, 2015 Major depressive disorder, recurrent episode, mild 296.31 ; Attention deficit disorder of childhood without mention of hyperactivity 314.00 and Generalized anxiety disorder 300.02 [facility] [place] [address] 25847- 0584 May, Hypertension 401.9 and Hypokalemia 276.8 [facility] [place] [id number] [place] [address] 20236- 6223 May, [facility] [place] [id number] [place] [address] 70387- 8808 Apr, [facility] [place] [id number] [place] [address] 12726- 9357 Apr, [facility] [place] [address] 05055- 8995 Apr, [facility] [place] [id number] [place] [address] 13226- 5814 Apr, [facility] [place] [address] 67594- 9566 Mar, [facility] [place] [address], [place] [address]- 1451 Mar, [facility] [place] [address], [place] [address]- 8840 Mar, [facility] [place] [address], [place] [address]- 9498 Mar, [facility] [place] [id number] [place] [address] 30080- 7855 Mar, Arthritis of both knees 716.96 ; Hepatitis B 070.30 ; Hypertension 401.9 ; Carpal tunnel syndrome 354.0 and Cubital tunnel syndrome 354.2 [facility] [place] [address], [place] [address]- 2438 Mar, [facility] [place] [id number] [place] [address] 95695- 1673 Mar, [facility] [place] [address], [place] [address]- 1901 Mar, 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, chronic, without mention of hepatitis delta 070.32 ; Chronic hepatitis C without mention of hepatic coma 070.54 and Major depressive disorder, recurrent episode, moderate 296.32 [facility] [place] [address], [place] [address]- 0371 Jan, [facility] [place] [address], [place] [address]- 8151 Jan, Major depressive disorder, recurrent episode, mild 296.31 and Attention deficit disorder of childhood without mention of hyperactivity 314.00 [facility] [place] [address], [place] [address]- 8198 Jan, [facility] [place] [address], [place] [address]- 9275 Jan, [facility] [place] [address], [place] [address]- 3403 December, Attention deficit disorder of childhood without mention of hyperactivity 314.00 ; Major depressive disorder, recurrent episode, mild 296.31 and Generalized anxiety disorder 300.02 [facility] [place] [address] 9906 08 Dec, 2014 [facility] [place] [address] 4135 14 Dec, 2014 [facility] [place] [id number] [place] [address] 294138- 4497 Dec, [facility] [place] [id number] [place] [address] 47905- 5162 19 Oct, 2014 [facility] [place] [id number] [place] [address] 35801- 4211 19 Oct, 2014 [facility] [place] [id number] [place] [address] 39159- 7052 18 Oct, 2014 [facility] [place] [id number] [place] [address] 65989- 7249 18 Oct, 2014 [facility] [place] [address], [place] [address]- 5856 18 Oct, 2014 [facility] [place] [address], [place] [address]- 9865 18 Oct, 2014 [facility] [place] [address], [place] [address]- 5420 16 Oct, 2014 [facility] [place] [address], [place] [address]- 2402 13 Oct, 2014 [facility] [place] [id number] [address]- 4781 13 Oct, 2014 [facility] [place] [id number] [id number]- 0289 12 Oct, 2014 [facility] [place] [id number]- 6411 Oct, [facility] [place] [address], [place] [address]- 0443 Oct, [facility] [place] [facility] [address] [facility] [id number] [place] [address]- 1217 Oct, [facility] [place] [facility] [address] [facility] [id number] [place] [address]- 8936 Oct, [facility] [place] [facility] [address] [facility] [id number] [place] [address]- 9040 Oct, [facility] [place] [facility] [address] [facility] [id number] [place] [address]- 6793 Oct, 2014 [facility] [place] [facility] [address] [facility] [id number] [place] [address]- 6114 Oct, 2014 [facility] [place] [facility] [address] [facility] [id number] [place] [address]- 1126 25 Oct, 2014 [facility] [place] [facility] [address] [facility] [id number] [place] [address]- 7022 19 Oct, 2014 [facility] [place] [facility] [address] [facility] [id number] [place] [address]- 2782 18 Oct, 2014 [facility] [place] [facility] [address] [facility] [id number] [place] [address]- 0721 17 Oct, 2014 [facility] [place] [facility] [address] [facility] [id number] [place] [address]- 5055 17 Oct, 2014 [facility] [place] [facility] [address] [facility] [id number] [place] [address]- 2185 11 Oct, 2014 [facility] [place] [facility] [address] [facility] [id number] [place] [address]- 7887 11 Oct, 2014 [facility] [place] [facility] [address] [facility] [id number] [place] [address]- 3824 11 Oct, 2014 [facility] [place] [facility] [address] [facility] [id number] [place] [address]- 7558 11 Oct, 2014 [facility] [place] [facility] [address] [facility] [id number] [place] [address]- 9762 Oct, [facility] [place] [facility] [address] [id number] [place] [address]- 3007 Oct, [facility] [place] [facility] [address] [id number] [place] [address]- 1245 Sep, [facility] [place] [facility] [address] [id number] [place] [address]- 3276 Sep, [facility] [place] [facility] [address] [id number] [place] [address]- 9460 Sep, [facility] [place] [facility] [address] [id number] [place] [address]- 6074 Sep, [facility] [place] [facility] [address] [id number] [place] [address]- 9506 Sep, [facility] [place] [facility] [address] [id number] [place] [address]- 8214 Sep, [facility] [place] [facility] [address] [id number] [place] [address]- 4660 Sep, [facility] [place] [facility] [address] [id number] [place] [address]- 4866 Sep, [facility] [place] [facility] [address] [id number] [place] [address]- 9780 Sep, [facility] [place] [facility] [address] [id number] [place] [address]- 2343 Sep, [facility] [place] [facility] [address] [id number], [place] [address]- 3803 Sep, [facility] [place] [facility] [address] [id number] [place] [address]- 7968 Sep, [facility] [place] [facility] [address] [id number], [place] [address]- 9452 Sep, [facility] [place] [facility] [address] [id number] [place] [address]- 0230 Sep, [facility] [place] [facility] [address] [id number] [place] [address]- 9266 Sep, [facility] [address] [id number] [place] [address]- 4211 Sep, [facility] [place] [facility] [address] [id number] [place] [address]- 2500 Aug, [facility] [place] [facility] [address] [id number] [place] [address]- 7645 Aug, [facility] [place] [facility] [address] [id number] [place] [address]- 3612 Aug, [facility] [place] [facility] [address] [id number] [place] [address]- 4379 Aug, [facility] [place] [facility] [address] [id number] [place] [address]- 0973 Aug, [facility] [place] [facility] [address] [id number] [place] [address]- 9003 Aug, [facility] [place] [facility] [address] [id number] [place] [address]- 1162 Aug, [facility] [place] [facility] [address] [id number] [place] [address]- 4289 20 Aug, 2014 [facility] [place] [facility] [address] [id number] [place] [address]- 6319 19 Aug, 2014 [facility] [place] [facility] [address] [id number] [place] [address]- 2536 18 Aug, 2014 [facility] [place] [facility] [address] [id number] [place] [address]- 1183 18 Aug, 2014 [facility] [place] [facility] [address] [id number] [place] [address]- 5665 16 Aug, 2014 [facility] [place] [facility] [address] [id number] [place] [address]- 8592 16 Aug, 2014 [facility] [place] [facility] [address] [id number] [place] 6029 15 Aug, 2014 [facility] [place] [facility] [address] [id number] [place] [address]- 7614 15 Aug, 2014 [facility] [place] [facility] [address] [id number] [place] [address]- 1264 Aug, [facility] [place] [facility] [address] [id number] [place] [address]- 6733 Aug, [facility] [place] [facility] [address] [id number] [place] [address]- 1142 Aug, [facility] [place] [facility] [address] [id number] [place] [address]- 0274 Aug, [facility] [place] [facility] [address] [id number] [place] [address]- 8900 Aug, [facility] [place] [facility] [address] [id number] [place] [address]- 6392 Aug, [facility] [place] [facility] [address] [id number] [place] [address]- 9296 Aug, [facility] [place] [facility] [address] [id number] [place] [address]- 4298 Aug, [facility] [place] [facility] [address] [id number] [place] [address]- 6968 Aug, [facility] [place] [facility] [address] [id number] [place] [address]- 1595 Aug, [facility] [place] [facility] [address] [id number] [place] [address]- 5316 Jul, [facility] [place] [facility] [address] [id number] [place] [address]- 7209 Jul, [facility] [place] [facility] [address] [id number] [place] [address]- 8015 Jul, [facility] [place] [facility] [address] [id number] [place] [address]- 9071 Jul, [facility] [place] [facility] [address] [id number] [place] [address]- 4202 Jul, [facility] [place] [facility] [address] [id number] [place] [address]- 5478 Jul, [facility] [place] [facility] [address] [id number] [place] [address]- 2695 Jun, [facility] [place] [facility] [address] [id number] [place] [address]- 7398 Jun, [facility] [place] [facility] [address] [id number] [place] [address]- 1187 Jun, [facility] [place] [facility] [address] [id number] [place] [address]- 9152 Jun, [facility] [place] [facility] [address] [id number] [place] [address]- 5804 Jun, [facility] [place] [facility] [address] [id number] [place] [address]- 5904 Jun, [facility] [place] [facility] [address] [id number] [place] [address]- 3416 Jun, [facility] [place] [facility] [address] [id number] [place] [address]- 8499 Jun, [facility] [place] [facility] [address] [id number] [place] [address]- 0639 16 May, 2014 [facility] [place] [facility] [address] [id number], [place] [address]- 2401 16 May, 2014 [facility] [place] [facility] [address] [id number], [place] [address]- 2495 15 May, 2013 [facility] [place] [facility] [address] [id number] [place] [address]- 8153 15 May, 2014 [facility] [place] [facility] [address] [id number] [place] [address]- 3013 08 May, 2014 [facility] [place] [facility] [address] [id number] [place] [address]- 9335 08 May, 2013 [facility] [place] [facility] [address] [id number] [place] [address]- 4159 08 May, 2014 [facility] [place] [facility] [address] [id number] [place] [address]- 0402 May, [facility] [place] [facility] [address] [id number] [place] [address]- 2655 Apr, [facility] [place] [facility] [address] [id number] [place] [address]- 7372 Apr, [facility] [place] [facility] [address] [id number] [place] [address]- 6935 Apr, [facility] [place] [facility] [address] [id number] [place] [address]- 8064 Apr, [facility] [place] [facility] [address] [id number] [place] [address]- 6122 Apr, [facility] [place] [facility] [address] [id number] [place] [address]- 6772 Apr, [facility] [place] [facility] [address] [id number] [place] [address]- 5709 Apr, [facility] [place] [facility] [address] [id number] [place] [address]- 5557 Apr, [facility] [place] [facility] [address] [id number] [place] [address]- 2225 Apr, [facility] [place] [facility] [address] [id number] [place] [address]- 9430 Apr, [facility] [place] [facility] [address] [id number] [place] [address]- 3453 Apr, [facility] [place] [facility] [address] [id number] [place] [address]- 3705 Apr, [facility] [place] [facility] [address] [id number] [place] [address]- 2729 Apr, [facility] [place] [facility] [address] [id number] [place] [address]- 5919 Mar, [facility] [place] [facility] [address] [id number] [place] [address]- 5865 Mar, [facility] [place] [facility] [address] [id number] [place] [address]- 6270 Mar, [facility] [place] [facility] [address] [id number] [place] [address]- 1349 Mar, [facility] [place] [facility] [address] [id number] [place] [address]- 7915 Jan, [facility] [place] [facility] [address] [id number] [place] [address]- 3082 Jan, [facility] [place] [facility] [address] [id number] [place] [address]- [address] December, [facility] [place] [facility] [address] [id number] [place] [address] December, [facility] [place] [facility] [address] [id number] [place] [address] December, [facility] [place] [facility] [address] [id number] [place] [address] December, [facility] [place] [facility] [address] [id number] [place] [address] December, [facility] [place] [facility] [address] [id number] [place] [address] December, [facility] [place] [facility] [address] [id number] [place] [address] December, [facility] [place] [facility] [address] [id number] [place] [address] December, [facility] [place] [facility] [address] [id number] [place] [address] Dec, [facility] [place] [facility] [address] [id number] [place] [address] Dec, [facility] [place] [facility] [address] [id number], [place] [address] Dec, [facility] [place] [facility] [address] [id number] [place] [address] Dec, [facility] [place] [facility] [address] [id number] [place] [address] Oct, [facility] [place] [facility] [address] [facility] [id number] [place] [address] Oct, [facility] [place] [facility] [address] [id number] [place] [address] Oct, [facility] [place] [facility] [address] [id number] [place] [address] Oct, [facility] [place] [facility] [address] [facility] [id number] [place] [address] Oct, [facility] [place] [facility] [address] [facility] [id number] [place] [address] Oct, [facility] [place] [facility] [address] [facility] [id number] [place] [address] Oct, [facility] [place] [facility] [address] [facility] [id number] [place] [address] Oct, [facility] [place] [facility] [address] [facility] [id number] [place] [address] Oct, [facility] [place] [facility] [address] [id number] [place] [address] Oct, [facility] [place] [facility] [address] [facility] [id number] [place] [address] Oct, [facility] [place] [facility] [address] [id number] [place] [address] Oct, [facility] [place] [facility] [address] [facility] [id number] [place] [address] Oct, [facility] [place] [facility] [address] [facility] [id number], [place] [address] Oct, [facility] [place] [facility] [address] [id number] [place] [address] Oct, [facility] [place] [facility] [address] [id number] [place] [address] Oct, [facility] [place] [facility] [address] [id number] [place] [address] Oct, [facility] [place] [facility] [address] [id number] [place] [address] Oct, [facility] [place] [facility] [address] [id number] [place] [address] Oct, [facility] [place] [facility] [address] [id number] [place] [address] Oct, [facility] [place] [facility] [address] [id number] [place] [address] Oct, [facility] [place] [facility] [address] [id number] [place] [address] Oct, [facility] [place] [facility] [address] [id number] [place] [address] Sep, [facility] [place] [facility] [address] [id number] [place] [address] Sep, [facility] [place] [facility] [address] [id number] [place] [address] Sep, [facility] [place] [facility] [address] [id number] [place] [address] Sep, [facility] [place] [facility] [address] [id number] [place] [address] Aug, [facility] [place] [facility] [address] [id number] [place] [address] Aug, [facility] [place] [facility] [address] [id number] [place] [address] Aug, [facility] [place] [facility] [address] [id number] [place] [address] Aug, [facility] [address] [id number] [place] [address] Aug, [facility] [place] [facility] [address] [id number] [place] [address] Aug, [facility] [address] [id number] [place] [address] Aug, [facility] [place] [facility] [address] [id number] [place] [address]- [address] Aug, [facility] [address] [id number] [place] [address] Aug, [facility] [place] [facility] [address] [id number] [place] [address] Jul, [facility] [address] [id number] [place] [address]- [address] Jul, [facility] [place] [facility] [address] [id number] [place] [address] Jul, [facility] [place] [facility] [address] [id number] [place] [address]- [address] Jul, [facility] [place] [facility] [address] [facility] [id number] [place] [address]- [address] Jul, [facility] [place] [facility] [address] [id number] [place] [address] Jul, [facility] [place] [facility] [address] [id number], [place] [address] Jul, [facility] [place] [facility] [address] [id number] [place] [address] Jul, [facility] [place] [facility] [address] [facility] [facility] [id number] [place] [address] Jun, [facility] [place] [facility] [address] [id number] [address] Jun, [facility] [place] [facility] [address] [id number] [place] [address] Jun, [facility] [place] [facility] [address] [id number] [place] [address] Jun, [facility] [place] [facility] [address] [id number] [place] [address] Jun, [facility] [place] [facility] [address] [id number] [place] [address] 67[address] Jun, [facility] [place] [facility] [address] [id number] [place] [address] Jun, [facility] [place] [facility] [address] [id number] [place] [address]37 Jun, [facility] [place] [facility] [address] [id number] [place] [address] 30 May, 2013 [facility] [place] [facility] [address] [id number] [place] [address] 78[address] 26 May, 2013 [facility] [place] [facility] [address] [id number] [place] [address] 9[address] 23 May, 2013 [facility] [place] [facility] [address] [id number] [place] [address] 19 May, 2013 [facility] [place] [facility] [address] [id number] [place] [address] 4219 12 May, 2013 [facility] [place] [facility] [address] [id number] [place] [address] 3797 May, [facility] [place] [facility] [address] [id number] [place] [address] 6702 Apr, [facility] [place] [facility] [address] [id number] [place] [address]- 1675 Apr, [facility] [place] [facility] [address] [id number] [place] [address] 8860 Apr, [facility] [place] [facility] [address] [id number] [place] [address]- 2546 Apr, [facility] [place] [facility] [address] [id number] [place] [address]- 89[address] Apr, [facility] [place] [facility] [address] [id number] [place] [address]- 0880 Apr, [facility] [place] [facility] [address] [id number] [place] [address] 7453 Apr, [facility] [place] [facility] [address] [id number] [place] [address] 4159 Mar, [facility] [place] [facility] [address] [id number] [place] [address] 6120 Mar, [facility] [place] [facility] [address] [id number] [place] [address]- 7962 Mar, [facility] [place] [facility] [address] [id number] [place] [address]- 4952 Mar, [facility] [place] [facility] [address] [id number] [place] [address] 9701 Mar, [facility] [place] [facility] [address] [id number] [place] [address]- 6960 Mar, [facility] [place] [facility] [address] [id number] [place] [address] 4845 Mar, [facility] [place] [facility] [address] [id number] [place] [address]- 9418 Jan, [facility] [place] [facility] [address] [id number] [place] [address]- 0167 Jan, [facility] [place] [facility] [address] [id number] [place] [address] 0672 Jan, [facility] [place] [facility] [address] [id number] [place] [address] 8[address] Jan, [facility] [place] [facility] [address] [id number] [place] [address]- 4836 Jan, [facility] [place] [facility] [address] [id number] [place] [address]- 6786 11 Jan, 2013 [facility] [address] [id number] [place] [address] 7053 Jan, [facility] [address] [id number] [place] [address] 2926 December, [facility] [address] [id number] [place] [address] 5[address] December, [facility] [address] [id number] [place] [address] 6196 December, [facility] [address] [id number] [place] [address] 2216 December, [facility] [address] [id number] [place] [address]- 3947 30 Dec, 2012 [facility] [address] [id number] [place] [address] 4842 Dec, [facility] [address] [id number] [place] [address] 8631 Dec, [facility] [address] [id number] [place] [address]- 1611 29 Oct, 2012 [facility] [address] [id number] [place] [address]- 9808 26 Oct, 2012 [facility] [address] [id number] [place] [address] 6849 Oct, [facility] [address] [id number] [place] [address] 7428 Oct, [facility] [address] [id number] [place] [address] 7112 Oct, [facility] [address] [id number] [place] [address]- 8669 Oct, [facility] [address] [id number] [place] [address]- 1183 Oct, [facility] [address] [id number] [place] [address]- 5083 Oct, [facility] [place] [facility] [address] [id number] [place] [address]- 4120 Oct, [facility] [address] [id number] [place] [address]- 6337 08 Oct, 2012 [facility] [place] [facility] [address] [id number] [place] [address]- 4897 Oct, [facility] [address] [id number] [place] [address]- 9694 Sep, [facility] [address] [id number] [place] [address]- 8649 Sep, [facility] [address] [id number] [place] [address]- 3915 Sep, [facility] [place] [facility] [address] [id number] [place] [address]- 7402 Aug, [facility] [place] [facility] [address] [id number] [place] [address]- 4770 Aug, [facility] [place] [facility] [address] [facility] [id number] [place] [address]- 5556 Aug, [facility] [place] [facility] [address] [id number], [place] [address] 37[address] Aug, [facility] [place] [facility] [address] [id number], [place] [address] 1508 Jul, [facility] [place] [facility] [address] [id number] [place] [address]- 6108 Jul, [facility] [place] [facility] [address] [id number] [place] [address]- 6731 Jul, [facility] [place] [facility] [address] [facility] [id number] [place] [address]- 2431 Jul, [facility] [place] [facility] [address] [id number] [place] [address]- 9202 Jul, [facility] [place] [facility] [address] [id number] [place] [address]- 9946 Jul, [facility] [place] [facility] [address] [id number] [place] [address]- 6076 Jul, [facility] [place] [facility] [address] [id number] [place] [address]- 0126 Jul, [facility] [place] [facility] [address] [id number] [place] [address]- 1106 Jun, [facility] [place] [facility] [address] [id number] [place] [address]- 0908 Jun, [facility] [place] [facility] [address] [id number] [place] [address]- 5897 Jun, [facility] [place] [facility] [address] [facility] [id number] [place] [address]- 8144 Jun, [facility] [place] [facility] [address] [id number] [place] [address]- 1805 Jun, [facility] [place] [facility] [address] [id number] [place] [address]- 5866 26 May, 2012 [facility] [place] [facility] [address] [facility] [id number] [place] [address]- 3058 May, [facility] [place] [facility] [address] [id number] [place] [address]- 4736 18 May, 2012 [facility] [place] [facility] [address] [id number] [place] [address] 2543 09 May, 2012 [facility] [place] [facility] [address] [id number] [place] [address]- 8292 May, [facility] [place] [facility] [address] [facility] [id number] [place] [address]- 2046 Apr, [facility] [place] [facility] [address] [id number] [place] [address]- 5544 Apr, [facility] [place] [facility] [address] [id number] [place] [address]- 3302 Apr, [facility] [place] [facility] [address] [id number] [place] [address]- 9952 Apr, [facility] [place] [facility] [address] [id number] [place] [address]- 9407 Apr, [facility] [place] [facility] [address] [id number] [place] [address]- 9379 Apr, [facility] [place] [facility] [address] [id number] [place] [address]- 3925 Apr, [facility] [place] [facility] [address] [id number] [place] [address]- 8680 Mar, [facility] [place] [facility] [address] [id number] [place] [address]- 2800 Mar, [facility] [place] [facility] [address] [id number] [place] [address]- 7543 Mar, [facility] [place] [facility] [address] [id number] [place] [address]- 3309 Mar, [facility] [place] [facility] [address] [id number] [place] [address]- 5614 Jan, [facility] [place] [facility] [address] [id number] [place] [address]- 0794 Jan, [facility] [place] [facility] [address] [id number] [place] [address]- 5871 Jan, [facility] [place] [facility] [address] [id number] [place] [address]- 1979 Jan, [facility] [place] [facility] [address] [id number] [place] [address]- 4650 Jan, [facility] [place] [facility] [address] [id number] [place] [address]- 9413 Jan, [facility] [place] [facility] [address] [id number] [place] [address]- 2546 December, [facility] [place] [facility] [address] [id number] [place] [address]- 2926 December, [facility] [place] [facility] [address] [id number] [place] [address]- 7496 December, [facility] [place] [facility] [address] [id number] [place] [address]- 3746 December, [facility] [place] [facility] [address] [id number] [place] [address]- 2410 Dec, [facility] [place] [facility] [address] [id number] [place] [address]- 2114 Dec, [facility] [place] [facility] [address] [id number] [place] [address]- 0623 Oct, [facility] [place] [facility] [address] [id number] [place] [address]- 5510 Oct, [facility] [place] [facility] [address] [id number] [place] [address]- 1567 Oct, [facility] [place] [facility] [address] [id number] [place] [address]- 9620 Oct, [facility] [place] [facility] [address] [id number] [place] [address]- 4991 Oct, [facility] [place] [facility] [address] [id number] [place] [address]- 6918 Oct, [facility] [place] [facility] [address] [id number] [place] [address]- 5288 Oct, [facility] [place] [facility] [address] [id number] [place] [address]- 8859 Oct, [facility] [place] [facility] [address] [id number] [place] [address]- 5423 Oct, [facility] [place] [facility] [address] [id number] [place] [address]- 1556 Oct, [facility] [place] [facility] [address] [id number] [place] [address]- 8496 Oct, [facility] [address] [id number] [place] [address]- 1816 Sep, [facility] [place] [facility] [address] [id number] [place] [address] 2546 Sep, [facility] [address] [id number] [place] [address]- 3156 Sep, [facility] [place] [facility] [address] [id number] [place] [address]- 3276 Sep, [facility] [address] [id number] [place] [address]- 7516 Sep, [facility] [place] [facility] [address] [id number] [place] [address]- 3666 Sep, [facility] [place] [facility] [address] [id number] [place] [address]- 5554 Sep, [facility] [address] [id number] [place] [address]- 5019 Sep, [facility] [address] [id number] [place] [address]- 9252 Aug, [facility] [address] [id number] [place] [address]- 4846 Aug, [facility] [place] [facility] [address] [id number] [place] [address]- 3566 Aug, [facility] [place] [facility] [address] [id number] [place] [address]- 4550 Jul, [facility] [place] [facility] [address] [id number] [place] [address]- 0266 Jul, [facility] [place] [facility] [address] [id number] [place] [address]- 2546 Jul, [facility] [place] [facility] [address] [id number] [place] [address]- 4505 17 Jul, 2011 [facility] [place] [facility] [address] [id number] [place] [address]- 2271 08 Jul, 2011 [facility] [place] [facility] [address] [id number] [place] [address]- 4170 02 Jul, 2011 [facility] [place] [facility] [address] [id number] [place] [address]- 4514 31 Jun, 2011 [facility] [place] [facility] [address] [id number] [place] [address]- 0166 Jun, [facility] [place] [facility] [address] [id number] [place] [address]- 7213 Mar, [facility] [place] [facility] [address] [id number] [place] [address]- 8971 14 Dec, 2010 [facility] [place] [facility] [address] [id number] [place] [address]- 5072 Oct, [facility] [place] [facility] [address] [id number] [place] [address]- 4689 06 Aug, 2010 [facility] [place] [facility] [address] [id number] [place] [address]- 2122 30 Jul, 2010 [facility] [place] [facility] [address] [id number] [place] [address]- 2635 11 Jul, 2010 [facility] [place] [facility] [address] [id number], [place] [address]- 0641 Jul, [facility] [place] [facility] [address] [id number], [place] [address]- 6002 Jul, [facility] [place] [facility] [address] [id number] [place] [address]- 5588 Jul, [facility] [place] [facility] [address] [id number] [place] [address]- 4048 22 Aug, 2009 [facility] [place] [facility] [address] [id number] [place] [address]- 4885 15 Aug, 2009 [facility] [place] [facility] [address] [id number], [place] [address] 4366 Aug, [facility] [place] [id number] Aug, [facility] [place] [id number], [place] [address] 1905 Jul, [facility] [place] [id number], [place] [address]- 9321 Jul, [facility] [place] [id number], [place] [address]- 3494 Jul, [facility] [place] [id number], [place] [address]- 1719 Jul, [facility] [place] [id number] [address] Jun, [facility] [place] [id number] [address] Jun, IMMUNIZATIONS No Known Immunizations SOCIAL HISTORY Never Assessed REASON FOR VISIT f/u PLAN OF CARE Activity Details Follow Up 4 Weeks Reason: f/u VITAL SIGNS Height 64 in 2017-05-07 Weight 215.6 lbs 2017-05-07 Heart Rate 80 bpm 2017-05-07 Respiratory Rate 20 2017-05-07 BMI 37.00 kg/m2 2017-05-07 Blood pressure systolic 118 mmHg 2017-05-07 Blood pressure diastolic 76 mmHg 2017-05-07 MEDICATIONS Medication Instructions Dosage Frequency Start Date End Date Duration Status Effexor XR 150 MG Orally Once a day 2 capsule with food 24h Active Pantoprazole Sodium 40 MG Orally Once a day 1 tablet 24h 90 Active Pravastatin Sodium 80 MG TAKE ONE TABLET BY MOUTH AT BEDTIME (AVOID GRAPEFRUIT JUICE AND PRODUCTS WITH GRAPEFRUIT) 90 Active Fish Oil 1000 MG Orally 3 times a day 1 capsule 8h Active Toprol XL 100 MG Orally Once a day 1 tablet at bedtime 24h 90 Active Levothyroxine Sodium 100 MCG Orally Once a day 1 tablet 24h 30 Active Singulair 10 mg Orally Once a day 1 tablet in the evening 24h Apr, 30 day(s) Active Folic Acid 1 MG Orally Once a day 1 tablet 24h December, December, 90 days Active Cyclobenzaprine HCl 10 mg Orally 2 times a day prn back pain 1 tablet as needed Oct, 10 Active Lidocaine 5 % Externally 4 times a day Apply 2 grams to affected area as needed 6h Apr, 90 days Active Loratadine 10 mg Orally Once a day as needed for allergies 1 tablet Apr, Active Doxepin HCl 25 MG Orally Once a day 1-2 capsules at bedtime 24h Active Ritalin 10 mg Orally Twice a day 1 tablet 12h May, Jun, 28 days Active Requip 1 MG Orally twice a day 1 tablet 12h 90 days Active Hydrocodone-Acetaminophen 7.5-325 MG Orally 2 times a day 1 tablet as needed 12h 14 Apr, 2017 May, 28 days Active RESULTS No Results PROCEDURES Procedure Date Ordered Result Body Site [facility] VISIT ESTABLISHED PATIENT May 07, 2017 INSTRUCTIONS MEDICATIONS ADMINISTERED No Known Medications [...]
--- OUTSIDE RECORDS SUMMARY | 2018-03-17 11:47 | XMS REPORT ---
Author Author TONE IGNACIO [facility] Address [address] [place] [address] Care Team Providers Care Budget Director Name Role Phone IGNACIOTONE Unavailable PROBLEMS Type Condition ICD9-CM Code [id number] Code Onset Dates Condition Status SNOMED Code Problem Hyperinsulinemia E16.1 Active 05897305 Problem Attention-deficit hyperactivity disorder, predominantly inattentive type F90.0 Active 27487749 Problem Obstructive sleep apnea G47.33 Active 91769896 Problem Primary insomnia F51.01 Active 5059105 Problem Neuralgia M79.2 Active 01163508 Problem Cannabis use disorder, mild, abuse F12.10 Active 65458675 Problem Folic acid deficiency E53.8 Active 409593278 Problem Restless legs G25.81 Active 63193190 Problem Major depressive disorder, recurrent, mild F33.0 Active 56449655 Problem Generalized anxiety disorder F41.1 Active 36199370 Problem Major depressive disorder, recurrent episode, moderate F33.1 Active 479547872 Problem Hypertension I10 Active 24522251 Problem Hyperlipidemia E78.5 Active 51477963 Problem Primary osteoarthritis of both knees M17.0 Active 761457485 Problem Chronic hepatitis K73.9 Active 31712620 Problem Low back pain M54.5 Active 222417901 Problem Chronic viral hepatitis B without delta-agent B18.1 Active 440066078 Problem Insomnia G47.00 Active 313429726 Problem Hypothyroid E03.9 Active 35088146 Problem Depression, major, recurrent, mild F33.0 Active 114890976 Problem Obesity due to excess calories, unspecified obesity severity E66.09 Active 741546947 ALLERGIES No Information ENCOUNTERS Encounter Location Date Diagnosis [facility] [id number], [place] [address] Dec, Bone pain M89.8X9 [facility] [id number] [address] Dec, [facility] [id number] [place] [address] 80155- 5926 Oct, [facility] [address] [address]- [address] Oct, Syncope, unspecified syncope type R55 ; Primary insomnia F51.01 ; Dry mouth R68.2 and Cannabis use disorder, mild, abuse F12.10 [facility] [address] [address]- [address] Oct, [facility] [address] 32640- 2917 Sep, [facility] [address] 85134- 1335 Sep, [facility] [address] [address] Sep, [facility] [address] [id number] Sep, Dental examination Z01.20 [facility] [id number] [place] [address] 92268- 0298 Sep, Dental examination Z01.20 [facility] [id number] [place] [address] 02575- 1002 Sep, Sinus congestion R09.81 ; Mouth sores K13.79 ; Low back pain M54.5 and Mouth swelling R22.0 [facility] [id number] [place] [address] 14137- 1588 Aug, Low back pain M54.5 [facility] [address] 04104- 2519 Aug, Low back pain M54.5 [facility] [id number] [place] [address] 87330- 3601 Jul, [facility] [id number] [place] [address] 46672- 7974 Jul, Hyperinsulinemia E16.1 ; Encounter for immunization Z23 ; Hypothyroid E03.9 ; Decreased renal function N28.9 and Muscle cramps R25.2 [facility] [address] 0[address]93- 3498 Jul, [facility] [address] 33996- 1934 Jul, [facility] [address] 56180- 2867 Jul, [place] [address] 77473- 7677 Jul, Major depressive disorder, recurrent, mild F33.0 [place] [address] 8[address]14- 7444 08 Jul, 2017 Acquired cyst of kidney N28.1 ; Acidosis E87.2 and Hyperkalemia E87.5 [place] [address] 39847- 3851 Jul, Major depressive disorder, recurrent, mild F33.0 ; Attention -deficit hyperactivity disorder, predominantly inattentive type F90.0 and Generalized anxiety disorder F41.1 [place] [address] 9[address]12- 3026 Jul, Low back pain M54.5 [place] [id number] [address]- 2297 Jun, Cough R05 ; Low back pain M54.5 and Pre-syncope R55 [facility] [address] 07393- 7813 Jun, Low back pain M54.5 [facility] [address] [id number] Jun, Dental caries K02.9 [facility] [address] 24426- 8279 Jun, [place] [id number] [place] [address] 65912- 3246 Jun, Major depressive disorder, recurrent, mild F33.0 ; Attention -deficit hyperactivity disorder, predominantly inattentive type F90.0 and Generalized anxiety disorder F41.1 [place] [id number] [place] [address] 56773- 5638 13 May, 2017 Vertigo R42 ; Confusion R41.0 ; Weakness R53.1 and Vision changes H53.9 [place] [id number] [place] [address] 51941- 3177 May, [place] [address] 19512- 0077 May, [place] [id number] [place] [address] 33760- 0654 May, Low back pain M54.5 [place] [address] 61186- 3252 05 May, 2017 Major depressive disorder, recurrent, mild F33.0 ; Attention -deficit hyperactivity disorder, predominantly inattentive type F90.0 and Generalized anxiety disorder F41.1 [place] [id number] [place] [address] 76006- 9983 May, [place] [id number] [place] [address] 03476- 6198 May, Acute worsening of stage 3 chronic kidney disease N18.3 [place] [id number] [place] [address] 52335- 0270 Apr, [place] [id number] [place] [address] 28175- 2288 Apr, Acute allergic rhinitis due to pollen, unspecified seasonality J30.1 ; Restless legs G25.81 and Low back pain M54.5 [place] [id number] [place] [address] 65963- 3828 Apr, Primary osteoarthritis of both knees M17.0 [place] [address] [place] [address] 63990- 5300 Apr, Generalized anxiety disorder F41.1 [facility] [id number] [place] [address] 07383- 6183 Apr, Major depressive disorder, recurrent, mild F33.0 ; Attention -deficit hyperactivity disorder, predominantly inattentive type F90.0 and Generalized anxiety disorder F41.1 [facility] [id number] [place] [address] 29498- 6111 Apr, [facility] [id number] [place] [address] 98769- 7239 Mar, Major depressive disorder, recurrent episode, moderate F33.1 ; Generalized anxiety disorder F41.1 and ADHD, predominantly inattentive type F90.0 [facility] [id number] [place] [address] 51219 -1848 Mar, Abscess L02.91 [facility] [id number] [place] [address] 21749- 3409 Mar, Hyperinsulinemia E16.1 [facility] [id number] [place] [address] 87323- 5643 Mar, Decreased renal function N28.9 [facility] [id number] [place] [address] [id number] Mar, Dental examination Z01.20 [facility] [id number] [place] [address] 54633- 1660 Mar, Hyperinsulinemia E16.1 [facility] [id number] [place] [address] 85210- 4880 Mar, Hyperinsulinemia E16.[address] [facility] [id number] [place] [address] [id number] Mar, Dental examination Z01.20 and Dental caries K02.9 [facility] [id number] [place] [address] 22699- 1159 Mar, Chronic viral hepatitis B without delta-agent B18.1 ; Folic acid deficiency E53.8 ; Hyperinsulinemia E16.1 and Decreased renal function N28.9 [place] [id number] [place] [address] 72305- 1918 Mar, Major depressive disorder, recurrent, mild F33.0 [place] [id number] [place] [address] 65417- 8803 Mar, [place] [address] 39864- 6707 Mar, Chronic hepatitis K73.9 ; Hyperinsulinemia E16.1 ; Localized edema R60.0 ; Illicit drug use F19.90 ; Vision changes H53.9 and Obesity due to excess calories, unspecified obesity severity E66.09 [place] [id number] [place] [address] 38467- 1459 Jan, Major depressive disorder, recurrent, mild F33.0 [place] [id number] [place] [address] 75401- 8090 Jan, Chronic viral hepatitis B without delta-agent B18.1 [place] [id number] [place] [address] 92314- 0198 Jan, [place] [id number] [place] [address] 07556- 5498 Jan, Weight gain R63.5 ; Hypothyroid E03.9 ; Hyperinsulinemia E16.1 ; Decreased renal function N28.9 and Chronic viral hepatitis B without delta-agent B18.1 [place] [id number] [place] [address] 90518- 2046 December, Major depressive disorder, recurrent, mild F33.0 and Generalized anxiety disorder F41.1 [place] [id number] [place] [address] 56290- 1082 December, Obesity due to excess calories, unspecified obesity severity E66.09 and Folic acid deficiency E53.8 [place] [id number] [place] [address] 38985- 9140 December, Folic acid deficiency E53.8 [facility] [id number] [place] [address] 53410- 9644 December, Folic acid deficiency E53.8 [facility] [id number] [place] [address] 33716- 1308 December, Obesity due to excess calories, unspecified obesity severity E66.09 [facility] [id number] [place] [address] 81182- 4526 December, [facility] [id number] [place] [address] 72040- 8562 December, Folic acid deficiency E53.8 [facility] [id number] [place] [address] [phone] December, Encounter for other administrative examinations Z02.89 [facility] [address] 26769- 4666 Dec, [facility] [id number] [place] [address] [id number] Dec, Dental caries K02.9 [place] [address] 05354- 2284 Oct, Bone pain M89.8X9 [place] [id number] [place] [address] 26570- 0814 Oct, Hypothyroid E03.9 [facility] [id number] [place] [address] 09135- 5659 24 Oct, 2016 Hypothyroid E03.9 [facility] [id number] [place] [address] 25365- 9063 13 Oct, 2016 Breast cancer screening Z12.39 [facility] [id number] [place] [address] [id number] 08 Oct, 2016 Dental examination Z01.20 [facility] [id number] [place] [address] 42355- 3614 Oct, [place] [id number] [place] [address] 26031- 7404 Oct, Major depressive disorder, recurrent, mild F33.0 and Generalized anxiety disorder F41.1 [place] [id number] [place] [address] 29884- 6369 Oct, [place] [id number] [place] [address] 96178- 6960 Oct, Hypothyroid E03.9 [place] [id number] [place] [address] 01364- 6713 Sep, Hypothyroid E03.9 ; Chronic viral hepatitis B without delta- agent B18.1 and Folic acid deficiency E53.8 [place] [id number] [place] [address] 47576- 9896 Sep, Hypothyroidism, unspecified type E03.9 ; Elevated parathyroid hormone E34.9 and Chronic viral hepatitis B without delta-agent B18.1 [place] [id number] [place] [address] 67284- 1549 Sep, [place] [id number] [place] [address] 49236- 1830 Sep, Elevated parathyroid hormone E34.9 [place] [id number] [place] [address] 89997- 6610 Sep, [place] [id number] [place] [address] 52175- 4420 Sep, Chronic hepatitis K73.9 ; Bone pain M89.8X9 and Abnormal complete blood count R79.89 [place] [id number] [place] [address] 03120- 4133 Aug, Major depressive disorder, recurrent, mild F33.0 [place] [address] [place] [address] 67128- 4632 Aug, Bone pain M89.8X9 [place] [address] [place] [address]- 7609 Aug, [facility] [id number] [place] [address] 42498- 8291 Jul, Chronic viral hepatitis B without delta-agent B18.1 [facility] [id number] [place] [address] 63925- 4999 Jul, Hypothyroidism, unspecified type E03.9 [facility] [address] 08523- 3261 Jul, [facility] [address] 74994- 0952 Jul, Chronic hepatitis K73.9 and Hypothyroid E03.9 [place] [id number] [place] [address] 33494- 6168 Jul, Low back pain M54.5 [place] [address] 15201- 6688 Jun, Depression, major, recurrent, mild F33.0 and ADD (attention deficit disorder) F90.0 [place] [id number] [place] [address] 55701- 5645 Jun, [facility] [id number] [place] [address] 89339- 7941 Jun, Low back pain M54.5 [facility] [id number] [place] [address] 98161- 0337 Jun, Encounter for immunization Z23 ; Major depressive disorder, recurrent, mild F33.0 and Attention-deficit hyperactivity disorder, predominantly inattentive type F90.0 [place] [id number] [place] [address] 71085- 7040 Jun, [facility] [id number] [place] [address] 70577- 2785 Jun, Low back pain M54.5 [facility] [address] 93298- 1844 May, [facility] [id number] [place] [address] 87119- 9355 May, [facility] [id number] [place] [address] 88901- 1862 May, Essential (primary) hypertension I10 [facility] [id number] [place] [address] 94073- 7379 May, 2015 Low back pain M54.5 [facility] [id number] [place] [address] 22303- 4549 12 May, 2016 Low back pain M54.5 ; Chronic hepatitis K73.9 and Hypothyroid E03.9 [facility] [id number] [place] [address] 01843- 5287 09 May, 2016 Hypothyroidism, unspecified type E03.9 [facility] [id number] [place] [address] 64673- 6844 08 May, 2016 Low back pain M54.5 [facility] [id number] [place] [address] 62228- 9052 07 May, 2016 [facility] [id number] [place] [address] 24533- 4766 06 May, 2016 [facility] [id number] [place] [address] 68715- 7398 May, Major depressive disorder, recurrent, moderate F33.1 ; Generalized anxiety disorder F41.1 ; Insomnia G47.00 and ADD (attention deficit disorder) F90.0 [facility] [address] [place] [address] 72576- 3954 Apr, Low back pain M54.5 [facility] [id number] [place] [address] 17794- 6439 Apr, [facility] [id number] [place] [address] 44285- 3576 Apr, Low back pain M54.5 [place] [id number] [place] [address] 42554- 6461 11 Apr, 2016 Low back pain M54.5 ; Tooth pain K08.8 and Seasonal allergic rhinitis due to pollen J30.1 [place] [id number] [place] [address] 43828- 9240 11 Apr, 2016 Low back pain M54.5 [place] [address] 43866- 8984 10 Apr, 2016 LGS[facility] Pap smear of vagina R87.622 [place] [address] 38351- 6185 Apr, Low back pain M54.5 [place] [id number] [place] [address] 70637- 7891 Mar, [place] [address] 28002- 0228 Mar, Low back pain M54.5 [place] [id number] [place] [address] 95246- 0001 20 Mar, 2016 Encounter for Papanicolaou smear for cervical cancer screening Z12.4 ; Encounter for routine gynecological examination Z01.419 and Breast cancer screening Z12.39 [place] [id number] [place] [address] 70478- 4227 18 Mar, 2016 Hypothyroidism, unspecified type E03.9 [place] [id number] [place] [address] 72150- 9795 14 Mar, 2016 Low back pain M54.5 ; Other chronic pain G89.29 ; Hypothyroid E03.9 and Hypothyroidism, unspecified type E03.9 [place] [id number] [place] [address] 29768- 6722 12 Mar, 2016 Major depressive disorder, recurrent, moderate F33.1 and Attention-deficit hyperactivity disorder, predominantly inattentive type F90.0 [facility] [id number] [place] [address] 82451 -6400 Mar, Bronchitis J40 [facility] [id number] [address]- 3848 Jan, [facility] [id number] [place] [address] 79172- 2484 Jan, [facility] [id number] [place] [address] 48273- 1704 Jan, Insomnia G47.00 [facility] [id number] [place] [address] 03424- 6236 December, [facility] [id number] [place] [address] 18908- 7858 December, Major depressive disorder in partial remission F32.4 and Attention-deficit hyperactivity disorder, unspecified type F90.9 [place] [id number] [place] [address] 54439- 1123 December, [facility] [id number] [place] [address] 60605- 3013 December, [facility] [id number] [place] [address] 04197- 5015 Dec, [facility] [id number] [place] [address] 70309- 4870 Dec, Major depressive disorder, recurrent episode, moderate 296.32 and Attention deficit disorder of childhood without mention of hyperactivity 314.00 [facility] [address] [place] [address] 08551- 0507 Dec, Major depressive disorder, recurrent episode, mild 296.31 ; ADD (attention deficit disorder) F90.0 and Hyperlipidemia E78.5 [facility] [id number] [place] [address] 75311- 4130 Dec, Insomnia G47.00 [facility] [id number] [place] [address] 64808- 9518 Dec, Attention-deficit hyperactivity disorder, predominantly inattentive type F90.0 [place] [address] [address]- 7628 Oct, Restless legs syndrome G25.81 [facility] [address] [address]- 9052 Oct, Hypothyroidism, unspecified type E03.9 [facility] [id number] [address]- 4311 Oct, [facility] [id number] [place] [address] 91090- 2183 Oct, [facility] [id number] [place] [address] 88231- 1921 15 Nov, 2015 Hypothyroid E03.9 and Chronic hepatitis K73.9 [facility] [id number] [place] [address] 13252- 1220 Oct, [facility] [id number] [place] [address] 86272- 2657 Oct, Restless legs syndrome G25.81 ; Chronic hepatitis K73.9 ; Hypertension I10 ; Hypothyroid E03.9 and Breast cancer screening Z12.39 [facility] [id number] [place] [address] 80294- 8653 Oct, [facility] [address] [address]- 4290 Oct, [facility] [id number] [place] [address]- 3018 Oct, [facility] [id number] [place] [address]- 7501 Oct, [facility] [id number] [place] [address] 58339- 3839 Oct, [facility] [id number] [place] [address]- 5072 Oct, [facility] [id number] [place] [address] 24389- 5102 Oct, [facility] [address] [place] [address]- 8279 Sep, [facility] [id number] [place] [address] 91659- 9444 Sep, Attention-deficit hyperactivity disorder, predominantly inattentive type F90.0 and Major depressive disorder in partial remission F32.4 [facility] [id number] [place] [address] 40927- 8384 Sep, [facility] [id number] [place] [address] 41348- 2605 Aug, [facility] [id number] [place] [address] 92019- 6130 Aug, [facility] [id number] [place] [address] [phone]- 9603 Aug, Major depressive disorder, recurrent, mild F33.0 ; Attention -deficit hyperactivity disorder, unspecified type F90.9 and Generalized anxiety disorder F41.1 [facility] [id number] [place] [address] [phone]- 7696 Aug, Chronic hepatitis K73.9 ; Primary osteoarthritis of both knees M17.0 and Neuralgia M79.2 [facility] [id number] [place] [address] 24542- 0465 Jul, [facility] [id number] [place] [address] 22821- 2474 Jul, [facility] [id number] [place] [address] [id number]- 1133 Jul, [facility] [id number] [place] [address] [id number]- 0666 Jul, [facility] [id number] [place] [address] 32331- 3091 Jun, [facility] [id number] [place] [address] [phone]- [phone] Jun, Bronchitis J40 and Encounter for immunization Z23 [facility] [id number] [place] [address] [id number]- [phone] 30 May, 2015 [facility] [address] [id number]- [phone] May, [facility] [id number] [place] [address] 46544- 8321 May, [facility] [address] 39227- 5646 May, Hypokalemia 276.8 [facility] [address] 25432- 0378 08 May, 2015 Major depressive disorder, recurrent episode, mild 296.31 ; Attention deficit disorder of childhood without mention of hyperactivity 314.00 and Generalized anxiety disorder 300.02 [facility] [address] 48355- 5875 May, Hypertension 401.9 and Hypokalemia 276.8 [facility] [facility] [id number] [place] [address] 63232- 0679 May, [facility] [id number] [place] [address] 15408- 9939 Apr, [facility] [id number] [place] [address] 70956- 6963 Apr, [facility] [id number] [place] [address] 02054- 3729 Apr, [facility] [id number] [place] [address] 82002- 9884 Apr, [facility] [id number] [place] [address] 50232- 1802 Mar, [facility] [id number] [place] [address] 71952- 4695 Mar, [facility] [address] [place] [address]- 2274 Mar, [facility] [id number] [place] [address] 62149- 6142 Mar, [facility] [id number] [place] [address] 84594- 6376 Mar, Arthritis of both knees 716.96 ; Hepatitis B 070.30 ; Hypertension 401.9 ; Carpal tunnel syndrome 354.0 and Cubital tunnel syndrome 354.2 [facility] [id number] [place] [address] 74564- 2778 Mar, [facility] [id number] [place] [address] 13413- 0836 Mar, [facility] [id number] [place] [address] 14562- 8542 Mar, 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, chronic, without mention of hepatitis delta 070.32 ; Chronic hepatitis C without mention of hepatic coma 070.54 and Major depressive disorder, recurrent episode, moderate 296.32 [facility] [id number] [place] [address] 95552- 3877 Jan, [facility] [id number] [place] [address] 78863- 9606 Jan, Major depressive disorder, recurrent episode, mild 296.31 and Attention deficit disorder of childhood without mention of hyperactivity 314.00 [facility] [id number] [place] [address] 90340- 9161 Jan, [facility] [id number] [place] [address] 16954- 6591 Jan, [facility] [id number] [place] [address] 89817- 6099 December, Attention deficit disorder of childhood without mention of hyperactivity 314.00 ; Major depressive disorder, recurrent episode, mild 296.31 and Generalized anxiety disorder 300.02 [facility] [id number] [place] [address] 91199- 8087 December, [facility] [place] [facility] [address] [id number] [place] [address]- 0809 14 Dec, 2014 [facility] [place] [facility] [address] [id number] [place] [address]- 4912 13 Dec, 2014 [facility] [place] [facility] [address] [id number] [place] [address]- 3815 19 Oct, 2014 [facility] [place] [facility] [address] [id number] [place] [address]- 5958 19 Oct, 2014 [facility] [place] [facility] [address] [id number] [place] [address]- 5165 18 Oct, 2014 [facility] [place] [facility] [address] [id number] [place] [address]- 2800 18 Oct, 2014 [facility] [place] [facility] [address] [id number] [place] [address]- 9909 18 Oct, 2014 [facility] [place] [facility] [address] [id number] [place] [address]- 8601 18 Oct, 2014 [facility] [place] [facility] [address] [id number] [place] [address]- 8488 16 Oct, 2014 [facility] [place] [facility] [address] [id number] [place] [address]- 8539 13 Oct, 2014 [facility] [place] [facility] [address] [id number] [place] [address]- 1693 13 Oct, 2014 [facility] [place] [facility] [address] [id number], [place] [address]- 5576 12 Oct, 2014 [facility] [place] [facility] [address] [id number] [place] [address]- 2127 12 Oct, 2014 [facility] [place] [facility] [address] [id number] [place] [address]- 0636 10 Oct, 2014 [facility] [place] [facility] [address] [id number] [place] [address]- 7243 10 Oct, 2014 [facility] [place] [facility] [address] [id number] [place] [address]- 6225 05 Oct, 2014 [facility] [place] [facility] [address] [id number] [place] [address]- 4961 Oct, 2014 [facility] [place] [facility] [address] [facility] [id number] [place] [address]- 6611 Oct, 2014 [facility] [place] [facility] [address] [facility] [id number] [place] [address]- 3224 Oct, 2014 [facility] [place] [facility] [address] [id number] [place] [address]- 3374 25 Oct, 2014 [facility] [place] [facility] [address] [id number] [place] [address]- 0266 19 Oct, 2014 [facility] [place] [facility] [address] [facility] [id number] [place] [address]- 1260 18 Oct, 2014 [facility] [place] [facility] [address] [id number] [address]- 6024 17 Oct, 2014 [facility] [place] [facility] [address] [facility] [id number] [place] [address]- 4423 17 Oct, 2014 [facility] [place] [facility] [address] [facility] [id number] [place] [address]- 5423 11 Oct, 2014 [facility] [place] [facility] [address] [facility] [id number] [place] [address]- 4796 11 Oct, 2014 [facility] [place] [facility] [address] [facility] [id number] [place] [address]- 6786 11 Oct, 2014 [facility] [place] [facility] [address] [facility] [id number] [place] [address]- 2541 11 Oct, 2014 [facility] [place] [facility] [address] [facility] [id number] [place] [address]- 9694 10 Oct, 2014 [facility] [place] [facility] [address] [facility] [id number] [place] [address]- 4489 10 Oct, 2014 [facility] [place] [facility] [address] [facility] [id number] [place] [address]- 5596 Sep, [facility] [place] [facility] [address] [id number] [place] [address]- 1558 Sep, [facility] [place] [facility] [address] [id number] [place] [address]- 2527 Sep, [facility] [place] [facility] [address] [id number] [place] [address]- 8430 Sep, [facility] [place] [facility] [address] [id number] [place] [address]- 9534 Sep, [facility] [place] [facility] [address] [id number] [place] [address]- 5877 Sep, [facility] [place] [facility] [address] [id number] [place] [address]- 4171 Sep, [facility] [place] [facility] [address] [id number] [place] [address]- 7517 Sep, [facility] [place] [facility] [address] [id number] [place] [address]- 2720 Sep, [facility] [place] [facility] [address] [id number] [place] [address]- 3283 Sep, [facility] [place] [facility] [address] [id number] [place] [address]- 9466 Sep, [facility] [place] [facility] [address] [id number], [place] [address]- 1396 Sep, [facility] [place] [facility] [address] [id number], [place] [address]- 1971 Sep, [facility] [place] [facility] [address] [id number] [place] [address]- 6504 Sep, [facility] [place] [facility] [address] [id number] [place] [address]- 6108 Sep, [facility] [place] [facility] [address] [id number] [place] [address]- 7267 Sep, [facility] [place] [facility] [address] [id number] [place] [address]- 2975 Aug, [facility] [address] [id number] [place] [address]- 6196 Aug, [facility] [place] [facility] [address] [id number] [place] [address]- 3246 Aug, [facility] [address] [id number] [place] [address]- 8806 Aug, [facility] [place] [facility] [address] [id number] [place] [address]- 4095 Aug, [facility] [place] [address] [id number] [place] [address]- 3209 Aug, [facility] [address] [id number] [place] [address]- 6147 Aug, [facility] [address] [id number] [place] [address]- 2255 Aug, [facility] [address] [id number] [place] [address]- 7808 19 Aug, 2014 [facility] [address] [id number] [place] [address]- 7245 18 Aug, 2014 [facility] [address] [id number] [place] [address]- 5770 18 Aug, 2014 [facility] [place] [facility] [address] [id number] [place] [address]- 2496 16 Aug, 2014 [facility] [address] [id number] [place] [address]- 9971 16 Aug, 2014 [facility] [place] [facility] [address] [id number] [place] [address]- 1566 15 Aug, 2014 [facility] [place] [facility] [address] [id number] [place] [address]- 6046 15 Aug, 2014 [facility] [place] [facility] [address] [id number] [place] [address]- 6877 Aug, [facility] [place] [facility] [address] [id number] [place] [address]- 3144 Aug, [facility] [place] [facility] [address] [id number] [place] [address]- 5906 Aug, [facility] [place] [facility] [address] [id number] [place] [address]- 5010 Aug, [facility] [place] [facility] [address] [id number] [place] [address]- 7479 Aug, [facility] [place] [facility] [address] [id number] [place] [address]- 5744 Aug, [facility] [place] [facility] [address] [id number] [place] [address]- 6465 Aug, [facility] [place] [facility] [address] [id number] [place] [address]- 1327 Aug, [facility] [place] [facility] [address] [id number] [place] [address]- 9094 Aug, [facility] [place] [facility] [address] [id number] [place] [address]- 2481 Aug, [facility] [place] [facility] [address] [id number] [place] [address]- 0936 Jul, [facility] [place] [facility] [address] [id number] [place] [address]- 4171 Jul, [facility] [place] [facility] [address] [id number], [place] [address]- 7777 Jul, [facility] [place] [facility] [address] [id number] [place] [address]- 9417 Jul, [facility] [place] [facility] [address] [id number] [place] [address]- 2954 Jul, [facility] [place] [facility] [address] [id number], [place] [address]- 2718 Jul, [facility] [place] [facility] [address] [id number], [place] [address]- 0807 Jun, [facility] [place] [facility] [address] [id number] [place] [address]- 2734 Jun, [facility] [place] [facility] [address] [id number] [place] [address]- 1650 Jun, [facility] [place] [facility] [address] [id number] [place] [address]- 3839 Jun, [facility] [place] [facility] [address] [id number] [place] [address]- 2422 Jun, [facility] [place] [facility] [address] [id number] [place] [address]- 1311 Jun, [facility] [place] [facility] [address] [id number] [place] [address]- 8645 Jun, [facility] [place] [facility] [address] [facility] [id number] [place] [address]- 1812 Jun, [facility] [place] [facility] [address] [id number] [place] [address]- 6251 16 May, 2013 [facility] [place] [facility] [address] [id number] [place] [address]- 8826 16 Sep, 2013 [facility] [place] [facility] [address] [facility] [id number] [place] [address]- 5632 15 May, 2013 [facility] [place] [facility] [address] [id number], [place] [address]- 8437 15 Sep, 2013 [facility] [place] [facility] [address] [id number], [place] [address]- 6241 08 Sep, 2013 [facility] [place] [facility] [address] [id number] [place] [address]- 1442 08 Sep, 2013 [facility] [place] [facility] [address] [facility] [id number] [place] [address]- 9602 08 Sep, 2013 [facility] [place] [facility] [address] [facility] [id number] [place] [address]- 7899 08 Sep, 2013 [facility] [place] [facility] [address] [id number] [place] [address]- 2430 Apr, [facility] [place] [facility] [address] [id number] [place] [address]- 7136 Apr, [facility] [place] [facility] [address] [id number] [place] [address]- 3627 Apr, [facility] [place] [facility] [address] [id number] [place] [address]- 0964 Apr, [facility] [place] [facility] [address] [id number] [place] [address]- 4539 Apr, [facility] [place] [facility] [address] [id number] [place] [address]- 6416 Apr, [facility] [place] [facility] [address] [id number] [place] [address]- 8429 Apr, [facility] [place] [facility] [address] [id number] [place] [address]- 3738 Apr, [facility] [place] [facility] [address] [id number] [place] [address]- 6521 Apr, [facility] [place] [facility] [address] [id number] [place] [address]- 8514 Apr, [facility] [place] [facility] [address] [id number] [place] [address]- 3617 Apr, [facility] [place] [facility] [address] [id number] [place] [address]- 6839 Apr, [facility] [place] [facility] [address] [id number] [place] [address]- 4493 Apr, [facility] [place] [facility] [address] [id number] [place] [address]- 4371 Mar, [facility] [place] [facility] [address] [id number] [place] [address]- 6040 Mar, [facility] [place] [facility] [address] [id number] [place] [address]- 6957 Mar, [facility] [place] [facility] [address] [id number] [place] [address]- 2567 Mar, [facility] [place] [facility] [address] [id number] [place] [address]- 9050 Jan, [facility] [place] [facility] [address] [id number] [place] [address]- 7997 Jan, [facility] [place] [facility] [address] [id number] [place] [address]- 5793 December, [facility] [place] [facility] [address] [id number] [place] [address]- 6101 December, [facility] [place] [facility] [address] [id number] [place] [address]- 3537 December, [facility] [place] [facility] [address] [id number] [place] [address]- 9575 December, [facility] [place] [facility] [address] [id number] [place] [address]- 1818 December, [facility] [place] [facility] [address] [id number] [place] [address]- 5503 December, [facility] [place] [facility] [address] [id number] [place] [address]- 0642 December, [facility] [place] [facility] [address] [id number] [place] [address]- 5089 December, [facility] [place] [facility] [address] [id number] [place] [address]- 1294 Dec, [facility] [place] [facility] [address] [id number] [place] [address]- 4211 Dec, [facility] [place] [facility] [address] [id number] [place] [address]- 6816 Dec, [facility] [place] [facility] [address] [id number] [place] [address]- 7200 Dec, [facility] [place] [facility] [address] [id number] [place] [address]- 8774 Oct, [facility] [place] [facility] [address] [id number] [place] 9382 Oct, [facility] [place] [facility] [address] [id number] [place] 7546 Oct, [facility] [place] [facility] [address] [id number] [place] [address]- 0456 Oct, [facility] [place] [facility] [address] [id number] [place] [address]- 6767 Oct, [facility] [place] [facility] [address] [id number] [place] [address]- 1107 Oct, [facility] [place] [facility] [address] [id number] [place] [address]- 4824 Oct, [facility] [place] [facility] [address] [id number] [place] [address]- 3504 Oct, [facility] [place] [facility] [address] [id number] [place] [address]- 8926 Oct, [facility] [place] [facility] [address] [id number] [place] [address]- 9730 Oct, [facility] [place] [facility] [address] [facility] [id number] [place] [address]- 7661 Oct, [facility] [place] [facility] [address] [id number] [place] [address]- 2546 Oct, [facility] [place] [facility] [address] [id number] [place] [address]- 2546 Oct, [facility] [place] [facility] [address] [id number] [place] 0606 Oct, [facility] [place] [facility] [address] [id number] [place] [address]- 4366 Oct, [facility] [place] [facility] [address] [facility] [id number] [place] [address]- 1937 Oct, [facility] [place] [facility] [address] [id number] [place] [address]- 0172 Oct, [facility] [place] [facility] [address] [id number] [place] [address]- 3845 Oct, [facility] [place] [facility] [address] [id number] [place] [address]- 8976 Oct, [facility] [place] [facility] [address] [id number] [place] [address]- 2471 Oct, [facility] [place] [facility] [address] [id number] [place] [address]- 3183 Oct, [facility] [place] [facility] [address] [id number] [place] [address]- 3480 Oct, [facility] [place] [facility] [address] [id number] [place] [address]- 7084 Sep, [facility] [place] [facility] [address] [id number] [place] [address]- 6309 Sep, [facility] [place] [facility] [address] [id number] [place] [address]- 9682 Sep, [facility] [place] [facility] [address] [id number] [place] [address]- 7517 Sep, [facility] [place] [facility] [address] [id number] [place] [address]- 9261 Aug, [facility] [place] [facility] [address] [id number] [place] [address]- 7873 Aug, [facility] [place] [facility] [address] [id number] [place] [address]- 9164 Aug, [facility] [place] [facility] [address] [id number] [place] [address]- 2716 Aug, [facility] [place] [facility] [address] [id number] [place] [address]- 9208 Aug, [facility] [place] [facility] [address] [id number] [place] [address]- 2222 Aug, [facility] [address] [id number] [place] [address]- 3785 Aug, [facility] [place] [facility] [address] [id number] [place] [address] Aug, [facility] [address] [id number] [place] [address] Aug, [facility] [place] [facility] [address] [id number] [place] [address] Jul, [facility] [address] [id number] [place] [address] Jul, [facility] [address] [id number] [place] [address] Jul, [facility] [address] [id number] [place] [address] Jul, [facility] [address] [id number] [place] [address] Jul, [facility] [place] [facility] [address] [id number] [place] [address] Jul, [facility] [address] [id number] [place] [address] Jul, [facility] [place] [facility] [address] [id number] [place] [address] Jul, [facility] [place] [facility] [address] [id number], [place] [address] Jun, [facility] [place] [facility] [address] [id number] [place] [address] Jun, [facility] [place] [facility] [address] [id number] [place] [address] Jun, [facility] [place] [facility] [address] [id number] [place] [id number] [address] Jun, [facility] [place] [facility] [address] [id number] [place] [address] Jun, [facility] [place] [facility] [address] [id number] [place] [address] Jun, [facility] [place] [facility] [address] [id number] [place] [address] Jun, [facility] [place] [facility] [address] [id number] [place] [address] Jun, [facility] [place] [facility] [address] [id number] [place] [address] 30 May, 2013 [facility] [place] [facility] [address] [id number] [place] [address] 26 May, 2013 [facility] [place] [facility] [address] [id number] [place] [address] 23 May, 2013 [facility] [place] [facility] [address] [id number] [place] [address] 19 May, 2013 [facility] [place] [facility] [address] [id number] [place] [address] 12 May, 2013 [facility] [place] [facility] [address] [id number] [place] [address] May, [facility] [place] [facility] [address] [id number] [place] [address] Apr, [facility] [place] [facility] [address] [id number], [place] [address] Apr, [facility] [place] [facility] [address] [id number] [place] [address] Apr, [facility] [place] [facility] [address] [id number] [place] [address] Apr, [facility] [place] [facility] [address] [id number] [place] [address] Apr, [facility] [place] [facility] [address] [id number] [place] [address] Apr, [facility] [place] [facility] [address] [id number] [place] [address] Apr, [facility] [place] [facility] [address] [id number] [place] [address] Mar, [facility] [place] [facility] [address] [id number] [place] [address] Mar, [facility] [place] [facility] [address] [id number] [place] [address] Mar, [facility] [place] [facility] [address] [id number] [place] [address] Mar, [facility] [place] [facility] [address] [id number] [place] [address] Mar, [facility] [place] [facility] [address] [id number] [place] [address] Mar, [facility] [place] [facility] [address] [id number] [place] [address] Mar, [facility] [place] [facility] [address] [id number] [place] [address] Jan, [facility] [place] [facility] [address] [id number] [place] [address] Jan, [facility] [place] [facility] [address] [id number] [place] [address] Jan, [facility] [place] [facility] [address] [id number] [place] [address] Jan, [facility] [place] [facility] [address] [id number] [place] [address] Jan, [facility] [place] [facility] [address] [id number] [place] [address] Jan, [facility] [place] [facility] [address] [id number] [place] [address] Jan, [facility] [place] [facility] [address] [id number] [place] [address] December, [facility] [address] [id number] [place] [address] December, [facility] [address] [id number] [place] [address] December, [facility] [address] [id number] [place] [address] December, [facility] [address] [id number] [place] [address] 30 Dec, 2012 [facility] [address] [id number] [place] [address] Dec, [facility] [address] [id number] [place] [address] Dec, [facility] [address] [id number] [place] [address] Oct, [facility] [address] [id number] [place] [address] Oct, [facility] [address] [id number] [place] [address] Oct, [facility] [address] [id number] [place] [address] Oct, [facility] [address] [id number] [place] [address] Oct, [facility] [address] [id number] [place] [address] Oct, [facility] [place] [facility] [address] [id number] [place] [address] Oct, [facility] [place] [facility] [address] [id number] [place] [address] Oct, [facility] [place] [facility] [address] [id number] [place] [address] Oct, [facility] [place] [facility] [address] [id number] [place] [address] Oct, [facility] [place] [facility] [address] [id number] [place] [address] Oct, [facility] [place] [facility] [address] [id number] [place] [address] Sep, [facility] [place] [facility] [address] [id number] [place] [address] Sep, [facility] [place] [facility] [address] [id number] [place] [address] Sep, [facility] [place] [facility] [address] [id number] [place] [address] Aug, [facility] [place] [facility] [address] [id number] [place] [address] Aug, [facility] [place] [facility] [address] [id number] [place] [address] Aug, [facility] [place] [facility] [address] [id number] [place] [address] 9[address] Aug, [facility] [place] [facility] [address] [id number] [place] [address] Jul, [facility] [place] [facility] [address] [id number], [place] [address] Jul, [facility] [place] [facility] [address] [id number], [place] [address] Jul, [facility] [place] [facility] [address] [id number] [place] [address] Jul, [facility] [place] [facility] [address] [id number] [place] [address] Jul, [facility] [place] [facility] [address] [id number] [place] [address] Jul, [facility] [place] [facility] [address] [id number] [place] [address] 67[address] Jul, [facility] [place] [facility] [address] [id number] [place] [address] 7[address] Jul, [facility] [place] [facility] [address] [id number] [place] [address] Jun, [facility] [place] [facility] [address] [id number] [place] [address] 99[address] Jun, [facility] [place] [facility] [address] [id number] [place] [address] 15[address] Jun, [facility] [place] [facility] [address] [id number] [place] [address] Jun, [facility] [place] [facility] [address] [id number] [place] [address]32 Jun, [facility] [place] [facility] [address] [id number] [place] [address] 26 May, 2012 [facility] [place] [facility] [address] [id number] [place] [address] 20 May, 2012 [facility] [place] [facility] [address] [id number] [place] [address] 18 May, 2012 [facility] [place] [facility] [address] [id number] [place] [address] 09 May, 2012 [facility] [place] [facility] [address] [id number] [place] [address] 04 May, 2012 [facility] [place] [facility] [address] [id number] [place] [address] 47[address] 30 Apr, 2012 [facility] [place] [facility] [address] [id number] [place] [address] 29 Apr, 2012 [facility] [place] [facility] [address] [id number] [place] [address] 0016 16 Apr, 2012 [facility] [place] [facility] [address] [id number] [place] [address] 5[address] Apr, [facility] [place] [facility] [address] [id number] [place] [address] 9[address] Apr, [facility] [place] [facility] [address] [id number] [place] [address] 5[address] Apr, [facility] [place] [facility] [address] [id number] [place] [address] 6872 Apr, [facility] [place] [facility] [address] [id number] [place] [address] 30[address] Mar, [facility] [place] [facility] [address] [id number] [place] [address] Mar, [facility] [place] [facility] [address] [id number] [place] [address] 5482 Mar, [facility] [place] [facility] [address] [id number] [place] [address] 6289 Mar, [facility] [place] [facility] [address] [id number] [place] [address] 9253 Jan, [facility] [place] [facility] [address] [id number] [place] [address] 6193 Jan, [facility] [place] [facility] [address] [id number] [place] [address] 3788 Jan, [facility] [place] [facility] [address] [id number] [place] [address]- 3760 Jan, [facility] [place] [facility] [address] [id number] [place] [address]- 3053 Jan, [facility] [place] [facility] [address] [id number] [place] [address] 4316 Jan, [facility] [place] [facility] [address] [id number] [place] [address] 0017 December, [facility] [place] [facility] [address] [id number] [place] [address]- 6688 December, [facility] [place] [facility] [address] [id number] [place] [address]- 6120 December, [facility] [address] [id number] [place] [address]- 1470 December, [facility] [place] [facility] [address] [id number] [place] [address]- 3095 Dec, [facility] [place] [facility] [address] [id number] [place] [address]- 4646 Dec, [facility] [place] [facility] [address] [id number] [place] [address]- 7778 30 Nov, 2011 [facility] [place] [facility] [address] [id number] [place] [address] 8353 Oct, [facility] [place] [facility] [address] [id number] [place] [address]- 8484 Oct, [facility] [address] [id number] [place] [address]- 4300 Oct, [facility] [place] [facility] [address] [id number] [place] [address]- 3812 Oct, [facility] [place] [facility] [address] [id number] [place] [address]- 7608 Oct, [facility] [place] [facility] [address] [id number] [place] [address]- 1342 Oct, [facility] [place] [facility] [address] [id number] [place] [address]- 2289 Oct, [facility] [place] [facility] [address] [id number] [place] [address]- 0127 Oct, [facility] [place] [facility] [address] [id number] [place] [address]- 7717 Oct, [facility] [place] [facility] [address] [id number] [place] [address]- 7376 Oct, [facility] [place] [facility] [address] [id number] [place] [address]- 1608 Sep, [facility] [place] [facility] [address] [id number] [place] [address]- 6404 Sep, [facility] [address] [id number] [place] [address]- 5505 Sep, [facility] [address] [id number] [place] [address]- 8686 Sep, [facility] [address] [id number] [place] [address]- 2848 Sep, [facility] [address] [id number] [place] [address]- 1719 Sep, [facility] [address] [id number] [place] [address]- 8540 Sep, [facility] [address] [id number] [place] [address]- 1554 Sep, [facility] [address] [id number] [place] [address]- 5796 Aug, [facility] [address] [id number] [place] [address]- 3463 Aug, [facility] [address] [id number] [place] [address]- 2304 Aug, [facility] [address] [id number] [place] [address]- 4421 Jul, [facility] [address] [id number] [place] [address]- 3891 Jul, [facility] [place] [facility] [address] [id number] [place] [address]- 6947 18 Jul, 2011 [facility] [place] [facility] [address] [id number] [place] [address]- 1344 17 Jul, 2011 [facility] [place] [facility] [address] [id number] [place] [address]- 2367 08 Jul, 2011 [facility] [address] [id number] [place] [address]- 1502 Jul, [facility] [place] [facility] [address] [id number] [place] [address]- 1276 31 Jun, 2011 [facility] [place] [facility] [address] [id number] [place] [address]- 2615 Jun, [facility] [place] [facility] [address] [id number] [place] [address]- 1203 Mar, [facility] [place] [facility] [address] [id number] [place] [address]- 8706 14 Dec, 2010 [facility] [place] [facility] [address] [id number] [place] [address]- 4194 Oct, [facility] [place] [facility] [address] [id number] [place] [address]- 3236 06 Aug, 2010 [facility] [place] [facility] [address] [id number] [place] [address]- 0053 30 Jul, 2010 [facility] [place] [facility] [address] [id number] [place] [address]- 2970 Jul, [facility] [place] [facility] [address] [id number] [place] [address]- 8696 Jul, [facility] [place] [facility] [address] [id number] [place] [address]- 1199 Jul, [facility] [place] [facility] [address] [id number] [place] [address]- 8998 Jul, [facility] [place] [facility] [address] [id number] [place] [address]- 1286 22 Aug, 2009 [facility] [place] [facility] [address] [id number] [place] [address]- 6773 15 Aug, 2009 [facility] [place] [facility] [address] [id number] [place] [address]- 5903 14 Aug, 2009 [facility] [place] [facility] [address] [id number] [place] [address] 07 Aug, 2009 [facility] [place] [facility] [address] [facility] [id number] [place] [address] Jul, [facility] [address] [id number], [place] [address] Jul, [facility] [address] [id number], [place] [address] 74[address] Jul, [facility] [address] [id number], [place] [address] Jul, [facility] [address] [id number], [place] [address]- 3036 Jun, [facility] [address] [id number], [place] [address] 9[address] Jun, IMMUNIZATIONS No Known Immunizations SOCIAL HISTORY Never Assessed REASON FOR VISIT Eye Exam PLAN OF CARE VITAL SIGNS MEDICATIONS Unknown [...]
--- OUTSIDE RECORDS SUMMARY | 2018-03-17 11:52 | XMS REPORT | Continuity of Care Document ---
Author Author Formerly [facility] Address Unknown Phone Unavailable Allergies Active Description [...] MD V58.69 TAKING HIGH-RISK MEDICATION 03/24/2008 HOWARD CUSTOMER SUCCESS SPECIALIST, BILLY 244.9 HYPOTHYROIDISM 03/24/2008 HOWARD CUSTOMER SUCCESS SPECIALIST, BILLY 338.4 PAIN CHRONIC SYNDROME 03/24/2008 HOWARD CUSTOMER SUCCESS SPECIALIST, BILLY V58.69 TAKING HIGH-RISK MEDICATION 03/24/2008 HOWARD CUSTOMER SUCCESS SPECIALIST, BILLY 244.9 HYPOTHYROIDISM 03/24/2008 HOWARD CUSTOMER SUCCESS SPECIALIST, BILLY 338.4 PAIN CHRONIC SYNDROME 03/24/2008 HOWARD [...] A V58.69 TAKING HIGH-RISK MEDICATION 03/24/2008 HOWARD CUSTOMER SUCCESS SPECIALIST, BILLY 244.9 HYPOTHYROIDISM 03/24/2008 HOWARD CUSTOMER SUCCESS SPECIALIST, BILLY 338.4 PAIN CHRONIC SYNDROME 03/24/2008 SLIME LAWRENCE APRNETTE V58.69 TAKING HIGH-RISK MEDICATION 03/24/2008 FABY CUNNINGHAM SERAFIN S 244.9 HYPOTHYROIDISM 03/24/2008 FABY CUNNING[place]AM SERAFIN S 338.4 PAIN CHRONIC SYNDROME 03/24/2008 RADHA HOBBS APRNNDA S V58.69 TAKING HIGH-RISK MEDICATION 03/24/2008 HOWARD CUSTOMER SUCCESS SPECIALIST, BILLY 244.9 HYPOTHYROIDISM 03/24/2008 HOWARD CUSTOMER SUCCESS SPECIALIST, BILLY 338.4 PAIN CHRONIC SYNDROME 03/24/2008 HOWARD CUSTOMER SUCCESS SPECIALIST, BILLY V58.69 TAKING HIGH-RISK MEDICATION 03/24/2008 FABY [...] APRN 729.5 PAIN IN LIMB 06/04/2008 IGNACIO DOTNOE K 729.5 PAIN IN LIMB 06/04/2008 IGNACIO [...] S 729.5 PAIN IN LIMB 06/04/2008 HOWARD CUSTOMER SUCCESS SPECIALIST BILLY 729.5 PAIN IN LIMB 06/04/2008 GELY [...] APRN 719.40 joint pain, localized 10/07/2008 IGNACIO DOANEULA K 401.1 ESSENTIAL HYPERTENSION BENIGN 10/07/2008 IGNACIO [...] BILLY 401.1 ESSENTIAL HYPERTENSION BENIGN 10/07/2008 HOWARD CUSTOMER SUCCESS SPECIALIST, BILLY 719.40 joint pain, localized 10/07/2008 HOWARD CUSTOMER SUCCESS SPECIALIST, BILLY 401.1 ESSENTIAL HYPERTENSION BENIGN 10/07/2008 HOWARD [place]NING[place]AM, BILLY 719.40 joint pain, localized 10/07/2008 TAYLOR CARVAJAL MD 401.1 ESSENTIAL HYPERTENSION BENIGN 10/07/2008 TAYLOR CARVAJAL MD9.40 JOINT PAIN, LOCALIZED 10/07/2008 HOWARD CUNNING[place]AM BILLY 401.1 ESSENTIAL HYPERTENSION BENIGN 10/07/2008 HOWARD CUSTOMER SUCCESS SPECIALIST, BILLY 719.40 JOINT PAIN, LOCALIZED 10/07/2008 HOWARD CUSTOMER SUCCESS SPECIALIST, BILLY 401.1 ESSENTIAL HYPERTENSION BENIGN 10/07/2008 HOWARD CUSTOMER SUCCESS SPECIALIST, BILLY 719.40 JOINT PAIN, LOCALIZED 10/07/2008 TAYLOR CARVAJAL MD 401.1 ESSENTIAL HYPERTENSION BENIGN 10/07/2008 TAYLOR CARVAJAL MD 719.40 JOINT PAIN, LOCALIZED 10/07/2008 JEMMA CUSTOMER SUCCESS SPECIALIST, CRISTIANE A 401.1 ESSENTIAL HYPERTENSION BENIGN 10/07/2008 JEMMA CUSTOMER SUCCESS SPECIALIST, CRISTIANE A 719.40 JOINT PAIN, LOCALIZED 10/07/2008 JEMMA CUSTOMER SUCCESS SPECIALIST, CRISTIANE A 401.1 ESSENTIAL HYPERTENSION BENIGN 10/07/2008 JEMMA CUSTOMER SUCCESS SPECIALIST, CRISTIANE A 719.40 JOINT PAIN, LOCALIZED 10/07/2008 HOWARD CUSTOMER SUCCESS SPECIALIST, BILLY 401.1 ESSENTIAL HYPERTENSION BENIGN 10/07/2008 HOWARD CUSTOMER SUCCESS SPECIALIST, BILLY 719.40 JOINT PAIN, LOCALIZED 10/07/2008 FABY CUSTOMER SUCCESS SPECIALIST, SERAFIN S 401.1 ESSENTIAL HYPERTENSION BENIGN 10/07/2008 FABY CUSTOMER SUCCESS SPECIALIST, SERAFIN S 719.40 JOINT PAIN, LOCALIZED 10/07/2008 HOWARD CUSTOMER SUCCESS SPECIALIST, BILLY 401.1 ESSENTIAL HYPERTENSION BENIGN 10/07/2008 HOWARD CUSTOMER SUCCESS SPECIALIST, BILLY 719.40 JOINT PAIN, LOCALIZED 10/07/2008 FABY CUSTOMER SUCCESS SPECIALIST, SERAFIN S 401.1 ESSENTIAL HYPERTENSION BENIGN 10/07/2008 FABY CUSTOMER SUCCESS SPECIALIST, SERAFIN S 719.40 JOINT PAIN, LOCALIZED 10/07/2008 SACHA PITT APRN D 401.1 ESSENTIAL HYPERTENSION BENIGN 10/07/2008 SACHA PITT APRN D 719.40 JOINT PAIN, LOCALIZED 10/07/2008 FABY CUSTOMER SUCCESS SPECIALIST, SERAFIN S 401.1 ESSENTIAL HYPERTENSION BENIGN 10/07/2008 FABY CUSTOMER SUCCESS SPECIALIST, SERAFIN S 719.40 JOINT PAIN, LOCALIZED 10/07/2008 HOWARD CUSTOMER SUCCESS SPECIALIST, BILLY 401.1 ESSENTIAL HYPERTENSION BENIGN 10/07/2008 HOWARD CUSTOMER SUCCESS SPECIALIST, BILLY 719.40 JOINT PAIN, LOCALIZED 10/07/2008 FABY CUSTOMER SUCCESS SPECIALIST, SERAFIN S 401.1 ESSENTIAL HYPERTENSION BENIGN 10/07/2008 FABY CUSTOMER SUCCESS SPECIALIST, SERAFIN S 719.40 JOINT PAIN, LOCALIZED 11/04/2008 [...] 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 11/04/2008 GINACIO DO, TONE K 401.9 Combined Systolic And [...] COMBINED SYSTOLIC AND DIASTOLIC ELEVATION 11/04/2008 HOWARD CUSTOMER SUCCESS SPECIALIST, BILLY 401.9 COMBINED SYSTOLIC AND DIASTOLIC ELEVATION 11/04/2008 HOWARD CUSTOMER SUCCESS SPECIALIST, BILLY 401.9 COMBINED SYSTOLIC AND DIASTOLIC ELEVATION 11/04/2008 WEI LINDO, TAYLOR 401.9 COMBINED SYSTOLIC AND DIASTOLIC ELEVATION 11/04/2008 JEMMA CUSTOMER SUCCESS SPECIALIST, CRISTIANE A 401.9 COMBINED SYSTOLIC AND DIASTOLIC ELEVATION 11/04/2008 JEMMA CUSTOMER SUCCESS SPECIALIST, CRISTIANE A 401.9 COMBINED SYSTOLIC AND DIASTOLIC ELEVATION 11/04/2008 HOWARD CUSTOMER SUCCESS SPECIALIST, BILLY 401.9 COMBINED SYSTOLIC AND DIASTOLIC ELEVATION 11/04/2008 FABY CUSTOMER SUCCESS SPECIALIST, SERAFIN S 401.9 COMBINED SYSTOLIC AND DIASTOLIC ELEVATION 11/04/2008 HOWARD CUSTOMER SUCCESS SPECIALIST, BILLY 401.9 COMBINED SYSTOLIC AND DIASTOLIC ELEVATION 11/04/2008 FABY CUSTOMER SUCCESS SPECIALIST, SERAFIN S 401.9 COMBINED SYSTOLIC AND DIASTOLIC ELEVATION 11/04/2008 SACHA PITT APRN 401.9 COMBINED SYSTOLIC AND DIASTOLIC ELEVATION 11/04/2008 FABY CUSTOMER SUCCESS SPECIALIST, SERAFIN S 401.9 COMBINED SYSTOLIC AND DIASTOLIC ELEVATION 11/04/2008 HOWARD CUSTOMER SUCCESS SPECIALIST, BILLY 401.9 COMBINED SYSTOLIC AND DIASTOLIC ELEVATION 11/04/2008 FABY CUSTOMER SUCCESS SPECIALIST, SERAFIN S 401.9 COMBINED SYSTOLIC AND DIASTOLIC [...] ESPINOSA APRN 842.10 SPRAIN/STRAIN HAND 02/07/2009 GARTON CUSTOMER SUCCESS SPECIALIST, KARMEN Spann 842.10 SPRAIN/STRAIN HAND 02/07/2009 IGNACIO DO, TONE K 842.10 SPRAIN/STRAIN HAND 02/07/2009 IGNACIO DO, TONE K 842.10 SPRAIN/STRAIN HAND 02/07/2009 GARTON CUSTOMER SUCCESS SPECIALIST, KARMEN Spann 842.10 SPRAIN/STRAIN HAND 02/07/2009 GARTON CUSTOMER SUCCESS SPECIALIST, KARMEN Spann 842.10 SPRAIN/STRAIN HAND 02/07/2009 IGNACIO DO, TONE K 842.10 SPRAIN/STRAIN HAND 02/07/2009 WEI LINDO, TAYLRO 842.10 SPRAIN/STRAIN HAND 02/07/2009 WEI LINDO, TAYLOR 842.10 SPRAIN/STRAIN HAND 02/07/2009 GLENNTON CUSTOMER SUCCESS SPECIALIST, KARMEN Spann 842.10 SPRAIN/STRAIN HAND 02/07/2009 FRANCISCA CUNNINGHAM, KARMEN Spann 842.10 SPRAIN/STRAIN HAND 02/07/2009 WEI LINDO, TAYLOR 842.10 SPRAIN/STRAIN HAND 02/07/2009 HOWARD CUSTOMER SUCCESS SPECIALIST, BILLY 842.10 SPRAIN/STRAIN HAND 02/07/2009 HOWARD OCTAVIO, BILLY 842.10 SPRAIN/STRAIN HAND 02/07/2009 TAYLOR CARVAJAL MD 842.10 SPRAIN/STRAIN HAND 02/07/2009 HOWARD CUSTOMER SUCCESS SPECIALIST, BILLY 842.10 SPRAIN/STRAIN HAND 02/07/2009 HOWARD CUSTOMER SUCCESS SPECIALIST, BILLY 842.10 SPRAIN/STRAIN HAND 02/07/2009 TAYLOR CARVAJAL MD 842.10 SPRAIN/STRAIN HAND 02/07/2009 JEMMA APRN, CRISTIANE A 842.10 SPRAIN/STRAIN HAND 02/07/2009 JEMMA OCTAVIO, CRISTIANE A 842.10 SPRAIN/STRAIN HAND 02/07/2009 HOWARD CUSTOMER SUCCESS SPECIALIST, BILLY 842.10 SPRAIN/STRAIN HAND 02/07/2009 FABY CUNNING[place]AM SERAFIN S 842.10 SPRAIN/STRAIN HAND 02/07/2009 HOWARD CUSTOMER SUCCESS SPECIALIST, BILLY 842.10 SPRAIN/STRAIN HAND 02/07/2009 FABYSERAFIN MADDOX [...] BILLY LAWRENCE APRN 716.90 ARTHRITIS 02/21/2009 HOWARD CUSTOMER SUCCESS SPECIALIST, BILLY 716.90 ARTHRITIS 02/21/2009 TAYLOR CARVAJAL MD 716.90 ARTHRITIS 02/21/2009 HOWARD CUSTOMER SUCCESS SPECIALIST, BILLY 716.90 ARTHRITIS 02/21/2009 HOWARD CUSTOMER SUCCESS SPECIALIST, BILLY 716.90 ARTHRITIS 02/21/2009 TAYLOR CARVAJAL MD 716.90 ARTHRITIS 02/21/2009 JEMMA CUSTOMER SUCCESS SPECIALIST, CRISTIANE A 716.90 ARTHRITIS 02/21/2009 JEMMA CUSTOMER SUCCESS SPECIALIST, CRISTIANE A 716.90 ARTHRITIS 02/21/2009 HOWARD CUSTOMER SUCCESS SPECIALIST, BILLY 716.90 ARTHRITIS 02/21/2009 FABY CUSTOMER SUCCESS SPECIALIST, SERAFIN S 716.90 ARTHRITIS 02/21/2009 HOWARD CUSTOMER SUCCESS SPECIALIST, BILLY 716.90 ARTHRITIS 02/21/2009 FABY CUSTOMER SUCCESS SPECIALIST, SERAFIN S 716.90 ARTHRITIS 02/21/2009 ANDREA PITT APRNON D 716.90 ARTHRITIS 02/21/2009 FABY CUSTOMER SUCCESS SPECIALIST, SERAFIN S 716.90 ARTHRITIS 02/21/2009 HOWARD CUSTOMER SUCCESS SPECIALIST, BILLY 716.90 ARTHRITIS 02/21/2009 FABY CUSTOMER SUCCESS SPECIALIST, SERAFIN S 716.90 ARTHRITIS 07/12/2009 MATEUS POZO TONE K 530.81 ESOPHAGEAL REFLUX 07/12/2009 MATEUS POZO TONE K 530.81 ESOPHAGEAL REFLUX 07/12/2009 KARMEN ESPINOSA APRN 530.81 ESOPHAGEAL REFLUX 07/12/2009 MATEUS POZO TONE K 530.81 ESOPHAGEAL REFLUX 07/12/2009 KARMNE ESPINOSA APRN 530.81 ESOPHAGEAL REFLUX 07/12/2009 530.81 [...] CARVAJAL MD 530.81 ESOPHAGEAL REFLUX 07/12/2009 HOWARD CUSTOMER SUCCESS SPECIALIST, BILLY 530.81 ESOPHAGEAL REFLUX 07/12/2009 HOWARD OCTAVIO, BILLY 530.81 ESOPHAGEAL REFLUX 07/12/2009 TAYLOR CARVAJAL MD 530.81 ESOPHAGEAL REFLUX 07/12/2009 HOWARD CUSTOMER SUCCESS SPECIALIST, BILLY 530.81 ESOPHAGEAL REFLUX 07/12/2009 HOWARDBISI CUNNINGHAM, BILLY 530.81 ESOPHAGEAL REFLUX 07/12/2009 TAYLOR CARVAJAL MD 530.81 ESOPHAGEAL REFLUX 07/12/2009 JEMMA CUSTOMER SUCCESS SPECIALIST, CRISTIANE A 530.81 ESOPHAGEAL REFLUX 07/12/2009 JEMMA OCTAVIO, CRISTIANE A 530.81 ESOPHAGEAL REFLUX 07/12/2009 HOWARD CUSTOMER SUCCESS SPECIALIST, BILLY 530.81 ESOPHAGEAL REFLUX 07/12/2009 FABY APRN, SERAFIN S 530.81 ESOPHAGEAL REFLUX 07/12/2009 HOWARD CUSTOMER SUCCESS SPECIALIST, BILLY 530.81 ESOPHAGEAL REFLUX 07/12/2009 FABY CUNNING[place]AM, SERAFIN S 530.81 ESOPHAGEAL REFLUX 07/12/2009 SACHA PITT APRN 530.81 ESOPHAGEAL REFLUX 07/12/2009 FABY CUNNING[place]AM, SERAFIN S 530.81 ESOPHAGEAL REFLUX 07/12/2009 HOWARD CUSTOMER SUCCESS SPECIALIST, BILLY 530.81 ESOPHAGEAL REFLUX 07/12/2009 FABY CUNNING[place], [...] 04/03/2010 TAYLOR CARVAJAL MD 272.4 DYSLIPIDEMIA 04/03/2010 TAYLOR CARVAJAL MD 272.4 DYSLIPIDEMIA 04/03/2010 KARMEN ESPINOSA APRN 272.4 DYSLIPIDEMIA 04/03/2010 KARMEN ESPINOSA APRN 272.4 DYSLIPIDEMIA 04/03/2010 TAYLOR CARVAJAL MD 272.4 DYSLIPIDEMIA 04/03/2010 HOWARD CUSTOMER SUCCESS SPECIALIST, BILLY 272.4 DYSLIPIDEMIA 04/03/2010 HOWARD CUSTOMER SUCCESS SPECIALIST, BILLY 272.4 DYSLIPIDEMIA 04/03/2010 TAYLOR CARVAJAL MD 272.4 DYSLIPIDEMIA 04/03/2010 HOWARD CUSTOMER SUCCESS SPECIALIST, BILLY 272.4 DYSLIPIDEMIA 04/03/2010 HOWARD CUSTOMER SUCCESS SPECIALIST, BILLY 272.4 DYSLIPIDEMIA 04/03/2010 TAYLOR CARVAJAL MD 272.4 DYSLIPIDEMIA 04/03/2010 JEMMA CUSTOMER SUCCESS SPECIALIST, CRISTIANE A 272.4 DYSLIPIDEMIA 04/03/2010 JEMMA CUSTOMER SUCCESS SPECIALIST, CRISTIANE A 272.4 DYSLIPIDEMIA 04/03/2010 HOWARD CUSTOMER SUCCESS SPECIALIST, BILLY 272.4 DYSLIPIDEMIA 04/03/2010 FABY CUNNINGHAM, SERAFIN S 272.4 DYSLIPIDEMIA 04/03/2010 HOWARD CUSTOMER SUCCESS SPECIALIST, BILLY 272.4 DYSLIPIDEMIA 04/03/2010 FABY CUNNING[place], SERAFIN S 272.4 DYSLIPIDEMIA 04/03/2010 SACHA PITT APRN 272.4 DYSLIPIDEMIA 04/03/2010 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 APRN S 272.4 DYSLIPIDEMIA 04/03/2010 HOWARD CUSTOMER SUCCESS SPECIALIST, BILLY 272.4 DYSLIPIDEMIA 04/03/2010 GELY HOBBS APRNA S 272.4 DYSLIPIDEMIA 08/07/2010 IGNACIO DOANUELA K 278.00 OBESITY UNSPECIFIED 08/07/2010 IGNACIO DO TONE K 278.00 OBESITY UNSPECIFIED 08/07/2010 KARMEN ESPINOSA APRN 278.00 OBESITY UNSPECIFIED 08/07/2010 IGNACIO DOANUELA K 278.00 OBESITY UNSPECIFIED 08/07/2010 KARMEN ESPNIOSA APRN 278.00 OBESITY UNSPECIFIED 08/07/2010 278.00 OBESITY [...] TAYLOR CARVAJAL MD 278.00 OBESITY UNSPECIFIED 08/07/2010 HOWARD CUSTOMER SUCCESS SPECIALIST, BILLY 278.00 OBESITY UNSPECIFIED 08/07/2010 HOWARD CUSTOMER SUCCESS SPECIALIST, BILLY 278.00 OBESITY UNSPECIFIED 08/07/2010 WEI LINDO, TAYLOR 278.00 OBESITY UNSPECIFIED 08/07/2010 JEMMA CUSTOMER SUCCESS SPECIALIST, CRISTIANE A 278.00 OBESITY UNSPECIFIED 08/07/2010 JEMMA CUSTOMER SUCCESS SPECIALIST, CRISTIANE A 278.00 OBESITY UNSPECIFIED 08/07/2010 HOWARD CUSTOMER SUCCESS SPECIALIST, BILLY 278.00 OBESITY UNSPECIFIED 08/07/2010 FABY CUSTOMER SUCCESS SPECIALIST, SERAFIN S 278.00 OBESITY UNSPECIFIED 08/07/2010 HOWARD CUSTOMER SUCCESS SPECIALIST, BILLY 278.00 OBESITY UNSPECIFIED 08/07/2010 FABY CUSTOMER SUCCESS SPECIALIST, SERAFIN S 278.00 OBESITY UNSPECIFIED 08/07/2010 SWEETIE CUSTOMER SUCCESS SPECIALIST, SACHA Spann 278.00 OBESITY UNSPECIFIED 08/07/2010 FABY CUSTOMER SUCCESS SPECIALIST, SERAFIN S 278.00 OBESITY UNSPECIFIED 08/07/2010 HOWARD CUSTOMER SUCCESS SPECIALIST, BILLY 278.00 OBESITY UNSPECIFIED 08/07/2010 FABY CUSTOMER SUCCESS SPECIALIST, SERAFIN S 278.00 OBESITY UNSPECIFIED 09/11/2010 Ot [...] OR MENISCUS OF KNEE CURRENT 01/11/2011 HOWARD CUSTOMER SUCCESS SPECIALIST, BILLY 836.0 TEAR OF MEDIAL CARTILAGE OR MENISCUS OF KNEE CURRENT 01/11/2011 HOWARD CUSTOMER SUCCESS SPECIALIST, BILLY 836.0 TEAR OF MEDIAL CARTILAGE OR MENISCUS OF KNEE CURRENT 01/11/2011 TAYLOR CARVAJAL MD 836.0 TEAR OF MEDIAL CARTILAGE OR MENISCUS OF KNEE CURRENT 01/11/2011 HOWARD CUSTOMER SUCCESS SPECIALIST, BILLY 836.0 TEAR OF MEDIAL CARTILAGE OR MENISCUS OF KNEE CURRENT 01/11/2011 HOWARD CUSTOMER SUCCESS SPECIALIST, BILLY 836.0 TEAR OF MEDIAL CARTILAGE OR MENISCUS OF KNEE CURRENT 01/11/2011 TAYLOR CARVAJAL MD 836.0 TEAR OF MEDIAL CARTILAGE OR MENISCUS OF KNEE CURRENT 01/11/2011 JEMMA CUSTOMER SUCCESS SPECIALIST, CRISTIANE A 836.0 TEAR OF MEDIAL CARTILAGE OR MENISCUS OF KNEE CURRENT 01/11/2011 JEMMA CUSTOMER SUCCESS SPECIALIST, CRISTIANE A 836.0 TEAR OF MEDIAL CARTILAGE OR MENISCUS OF KNEE CURRENT 01/11/2011 HOWARD CUSTOMER SUCCESS SPECIALIST, BILLY 836.0 TEAR OF MEDIAL CARTILAGE OR MENISCUS OF KNEE CURRENT 01/11/2011 FABY CUSTOMER SUCCESS SPECIALIST, SERAFIN S 836.0 TEAR OF MEDIAL CARTILAGE OR MENISCUS OF KNEE CURRENT 01/11/2011 HOWARD CUSTOMER SUCCESS SPECIALIST, BILLY 836.0 TEAR OF MEDIAL CARTILAGE OR MENISCUS OF KNEE CURRENT 01/11/2011 GELY HOBBS APRNA S 836.0 TEAR OF MEDIAL CARTILAGE OR MENISCUS OF KNEE CURRENT 01/11/2011 SACHA PITT APRN 836.0 TEAR OF MEDIAL CARTILAGE OR MENISCUS OF KNEE CURRENT 01/11/2011 FABY CUSTOMER SUCCESS SPECIALIST, SERAFIN S 836.0 TEAR OF MEDIAL CARTILAGE OR MENISCUS OF KNEE CURRENT 01/11/2011 HOWARD CUSTOMER SUCCESS SPECIALIST, BILLY 836.0 TEAR OF MEDIAL CARTILAGE OR MENISCUS OF KNEE CURRENT 01/11/2011 FABY CUSTOMER SUCCESS SPECIALIST, SERAFIN S 836.0 TEAR OF MEDIAL CARTILAGE [...] RECURRENT SEVERE W/O PSYCHOTIC BEHAVIOR 03/21/2011 TAYLOR ACRVAJAL MD 300.02 AN GEN ANXIETY 03/21/2011 KARMEN [...] APRNETTE 300.02 AN GEN ANXIETY 03/21/2011 SLIME ALWRENCE APRNETTE 296.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 SEVERE W/O [...] RECURRENT SEVERE W/O PSYCHOTIC BEHAVIOR 03/21/2011 JEMMA CUSTOMER SUCCESS SPECIALIST, CRISTIANE A 300.02 AN GEN ANXIETY 03/21/2011 JEMMA CUSTOMER SUCCESS SPECIALIST, CRISTIANE A 296.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 SEVERE W/O PSYCHOTIC BEHAVIOR 03/21/2011 JEMMA CUSTOMER SUCCESS SPECIALIST, CRISTIANE A 300.02 AN GEN ANXIETY 03/21/2011 [...] KARMEN ESPINOSA APRN 786.07 Wheezing 05/31/2011 KARMEN ESPINSOA APRN 786.2 Cough 05/31/2011 KARMEN ESPINOSA APRN [...] (3 Yrs And Above, Im) 05/31/2011 GARTON CUSTOMER SUCCESS SPECIALIST, KARMEN D 461.9 Sinusitis Acute 05/31/2011 KIRA ESPINOSA APRNBETH D 786.07 Wheezing 05/31/2011 LOY ESPINOSA APRNTH D 786.2 Cough 05/31/2011 KIRA ESPINOSA APRNBETH D V04.81 Flu Dx (3 Yrs And Above, Im) 05/31/2011 LOY ESPINOSA APRNTH D 461.9 Sinusitis Acute 05/31/2011 KIRA ESPINOSA APRNBETH D 786.07 Wheezing 05/31/2011 KIRA ESPINOSA APRNBETH [...] (3 Yrs And Above, Im) 05/31/2011 HOWARD CUSTOMER SUCCESS SPECIALIST, BILLY 461.9 Sinusitis Acute 05/31/2011 HOWARD CUSTOMER SUCCESS SPECIALIST, BILLY 786.07 Wheezing 05/31/2011 HOWARD CUSTOMER SUCCESS SPECIALIST, BILLY 786.2 Cough 05/31/2011 HOWARD CUSTOMER SUCCESS SPECIALIST, BILLY V04.81 Flu Dx (3 Yrs And Above, Im) 05/31/2011 HOWARD CUSTOMER SUCCESS SPECIALIST, BILLY 461.9 Sinusitis Acute 05/31/2011 HOWARD CUSTOMER SUCCESS SPECIALIST, BILLY 786.07 Wheezing 05/31/2011 HOWARD CUSTOMER SUCCESS SPECIALIST, BILLY 786.2 Cough 05/31/2011 HOWARD CUSTOMER SUCCESS SPECIALIST, BILLY V04.81 Flu Dx (3 Yrs And Above, Im) 05/31/2011 TAYLOR CARVAJAL MD 461.9 Sinusitis Acute 05/31/2011 TAYLOR CARVAJAL MD 786.07 Wheezing 05/31/2011 TAYLOR CARVAJAL MD 786.2 Cough 05/31/2011 TAYLOR CARVAJAL MD V04.81 Flu Dx (3 Yrs And Above, Im) 05/31/2011 OHWARD CUSTOMER SUCCESS SPECIALIST, BILLY 461.9 Sinusitis Acute 05/31/2011 HOWARD CUSTOMER SUCCESS SPECIALIST, BILLY 786.07 Wheezing 05/31/2011 HOWARD CUSTOMER SUCCESS SPECIALIST, BILLY 786.2 Cough 05/31/2011 HOWARD CUSTOMER SUCCESS SPECIALIST, BILLY V04.81 Flu Dx (3 Yrs And Above, Im) 05/31/2011 HOWARD CUSTOMER SUCCESS SPECIALIST, BILLY 461.9 Sinusitis Acute 05/31/2011 HOWARD CUSTOMER SUCCESS SPECIALIST, BILLY 786.07 Wheezing 05/31/2011 HOWARD CUSTOMER SUCCESS SPECIALIST, BILLY 786.2 Cough 05/31/2011 HOWARD CUSTOMER SUCCESS SPECIALIST, BILLY V04.81 Flu Dx (3 Yrs And Above, Im) 05/31/2011 WEI LINDO, TAYLOR 461.9 Sinusitis Acute 05/31/2011 WEI LINDO, TAYLOR 786.07 Wheezing 05/31/2011 WEI LINDO, TAYLOR 786.2 Cough 05/31/2011 WEI LINDO, TAYLOR V04.81 Flu Dx (3 Yrs And Above, Im) 05/31/2011 JEMMA CUSTOMER SUCCESS SPECIALIST, CRISTIANE A 461.9 Sinusitis Acute 05/31/2011 JEMMA CUSTOMER SUCCESS SPECIALIST, CRISTIANE A 786.07 Wheezing 05/31/2011 JEMMA CUSTOMER SUCCESS SPECIALIST, CRISTIANE A 786.2 Cough 05/31/2011 JEMMA CUSTOMER SUCCESS SPECIALIST, CRISTIANE A V04.81 Flu Dx (3 Yrs And Above, Im) 05/31/2011 JEMMA CUSTOMER SUCCESS SPECIALIST, CRISTIANE A 461.9 Sinusitis Acute 05/31/2011 JEMMA CUSTOMER SUCCESS SPECIALIST, CRISTIANE A 786.07 Wheezing 05/31/2011 JEMMA CUSTOMER SUCCESS SPECIALIST, CRISTIANE A 786.2 Cough 05/31/2011 JEMMA CUSTOMER SUCCESS SPECIALIST, CRISTIANE A V04.81 Flu Dx (3 Yrs And Above, Im) 05/31/2011 HOWARD CUSTOMER SUCCESS SPECIALIST, BILLY 461.9 Sinusitis Acute 05/31/2011 HOWARD CUSTOMER SUCCESS SPECIALIST, BILLY 786.07 Wheezing 05/31/2011 HOWARD CUSTOMER SUCCESS SPECIALIST, BILLY 786.2 Cough 05/31/2011 HOWARD CUSTOMER SUCCESS SPECIALIST, BILLY V04.81 Flu Dx (3 Yrs And Above, Im) 05/31/2011 FABY CUSTOMER SUCCESS SPECIALIST, SERAFIN S 461.9 Sinusitis Acute 05/31/2011 FABY CUSTOMER SUCCESS SPECIALIST, SERAFIN S 786.07 Wheezing 05/31/2011 FABY CUSTOMER SUCCESS SPECIALIST, SERAFIN S 786.2 Cough 05/31/2011 FABY CUSTOMER SUCCESS SPECIALIST, SERAFIN S V04.81 Flu Dx (3 Yrs And Above, Im) 05/31/2011 HOWARD CUSTOMER SUCCESS SPECIALIST, BILLY 461.9 Sinusitis Acute 05/31/2011 OHWARD CUSTOMER SUCCESS SPECIALIST, BILLY 786.07 Wheezing 05/31/2011 HOWARD CUSTOMER SUCCESS SPECIALIST, BILYL 786.2 Cough 05/31/2011 HOWARD CUSTOMER SUCCESS SPECIALIST, BILLY V04.81 Flu Dx (3 Yrs And Above, Im) 05/31/2011 FABY CUSTOMER SUCCESS SPECIALIST, SERAFIN S 461.9 Sinusitis Acute 05/31/2011 FABY CUSTOMER SUCCESS SPECIALIST, SERAFIN S 786.07 Wheezing 05/31/2011 FABY CUSTOMER SUCCESS SPECIALIST, SERAFIN S 786.2 Cough 05/31/2011 FABY CUSTOMER SUCCESS SPECIALIST, SERAFIN S V04.81 Flu Dx (3 Yrs And Above, Im) 05/31/2011 PITT CUSTOMER SUCCESS SPECIALIST, SACHA D 461.9 Sinusitis Acute 05/31/2011 PITT CUSTOMER SUCCESS SPECIALIST, SACHA D 786.07 Wheezing 05/31/2011 PITT CUSTOMER SUCCESS SPECIALIST, SACHA D 786.2 Cough 05/31/2011 PITT CUSTOMER SUCCESS SPECIALIST, SACHA D V04.81 Flu Dx (3 Yrs And Above, Im) 05/31/2011 FABY CUSTOMER SUCCESS SPECIALIST, SERAFIN S 461.9 Sinusitis Acute 05/31/2011 FABY CUSTOMER SUCCESS SPECIALIST, SERAFIN S 786.07 Wheezing 05/31/2011 FABY CUSTOMER SUCCESS SPECIALIST, SERAFIN S 786.2 Cough 05/31/2011 FABY CUSTOMER SUCCESS SPECIALIST, SERAFIN S V04.81 Flu Dx (3 Yrs And Above, Im) 05/31/2011 HOWARD CUSTOMER SUCCESS SPECIALIST, BILLY 461.9 Sinusitis Acute 05/31/2011 HOWARD CUSTOMER SUCCESS SPECIALIST, BILLY 786.07 Wheezing 05/31/2011 HOWARD CUSTOMER SUCCESS SPECIALIST, BILLY 786.2 Cough 05/31/2011 HOWARD CUSTOMER SUCCESS SPECIALIST, BILLY V04.81 Flu Dx (3 Yrs And Above, Im) 05/31/2011 FABY CUSTOMER SUCCESS SPECIALIST, SERAFIN S 461.9 Sinusitis Acute 05/31/2011 FABY CUSTOMER SUCCESS SPECIALIST, SERAFIN S 786.07 Wheezing 05/31/2011 FABY CUSTOMER SUCCESS SPECIALIST, SERAFIN S 786.2 Cough 05/31/2011 FABY CUSTOMER SUCCESS SPECIALIST, SERAFIN S V04.81 Flu Dx (3 Yrs [...] APRN 268.9 VITAMIN D DEFICIENCY 10/22/2011 FABY CUSTOMER SUCCESS SPECIALIST, SERAFIN S 268.9 VITAMIN D DEFICIENCY 10/22/2011 BILLY [...] CARVAJAL MD 780.57 SLEEP APNEA 11/16/2011 HOWARD C[employer]ER SUCCESS SPECIALIST, BILLY 780.57 SLEEP APNEA 11/16/2011 HOWARD C[employer]ER SUCCESS SPECIALIST, BILLY 780.57 SLEEP APNEA 11/16/2011 TAYLOR CARVAJAL MD 780.57 SLEEP APNEA 11/16/2011 HOWARD C[employer]ER SUCCESS SPECIALIST, BILLY 780.57 SLEEP APNEA 11/16/2011 HOWARD C[employer]ER SUCCESS SPECIALIST, BILLY 780.57 SLEEP APNEA 11/16/2011 TAYLOR CARVAJAL MD 780.57 SLEEP APNEA 11/16/2011 JEMMA CUSTOMER SUCCESS SPECIALIST, CRISTIANE A 780.57 SLEEP APNEA 11/16/2011 JEMMA C[employer]OMER SUCCESS SPECIALIST, CRISTIANE A 780.57 SLEEP APNEA 11/16/2011 HOWARD C[employer]ER SUCCESS SPECIALIST, BILLY 780.57 SLEEP APNEA 11/16/2011 FABY C[employer]ER SUCCESS SPECIALIST, SERAFIN S 780.57 SLEEP APNEA 11/16/2011 HOWARD C[employer]ER SUCCESS SPECIALIST, BILLY 780.57 SLEEP APNEA 11/16/2011 FABY C[employer]ER SUCCESS SPECIALIST, SERAFIN S 780.57 SLEEP APNEA 11/16/2011 ANDREA PITT APRNON Zana 780.57 SLEEP APNEA 11/16/2011 FABY C[employer]ER SUCCESS SPECIALIST, SERAFIN S 780.57 SLEEP APNEA 11/16/2011 HOWARD C[employer]ER SUCCESS SPECIALIST, BILLY 780.57 SLEEP APNEA 11/16/2011 FABY C[employer]ER SUCCESS SPECIALIST, SERAFIN S 780.57 SLEEP APNEA 02/20/2012 TONE [...] V76.47 Vaginal Pap Smear Screening 02/20/2012 HOWARD C[employer]ER SUCCESS SPECIALIST, BILLY 627.9 MENOPAUSAL AND POSTMENOPAUSAL DISORDER UNSPECIFIED 02/20/2012 HOWARD C[employer]ER SUCCESS SPECIALIST, BILLY V76.10 Breast Cancer Screening 02/20/2012 HOWARD C[employer]ER SUCCESS SPECIALIST, BILLY V76.47 Vaginal Pap Smear Screening 02/20/2012 HOWARD C[employer]ER SUCCESS SPECIALIST, BILLY 627.9 MENOPAUSAL AND POSTMENOPAUSAL DISORDER UNSPECIFIED 02/20/2012 HOWARD C[employer]ER SUCCESS SPECIALIST, BILLY V76.10 Breast Cancer Screening 02/20/2012 HOWARD C[employer]ER SUCCESS SPECIALIST, BILLY V76.47 Vaginal Pap Smear Screening 02/20/2012 TAYLOR CARVAJAL MD 62Ting.9 MENOPAUSAL AND POSTMENOPAUSAL DISORDER UNSPECIFIED 02/20/2012 TAYLOR CARVAJAL MD V76.10 Breast Cancer Screening 02/20/2012 TAYLOR CARVAJAL MD V76.47 Vaginal Pap Smear Screening 02/20/2012 HOWARD C[employer]ER SUCCESS SPECIALIST, BILLY 627.9 MENOPAUSAL AND POSTMENOPAUSAL DISORDER UNSPECIFIED 02/20/2012 HOWARD C[employer]ER SUCCESS SPECIALIST, BILLY V76.10 Breast Cancer Screening 02/20/2012 HOWARD C[employer]ER SUCCESS SPECIALIST, BILLY V76.47 Vaginal Pap Smear Screening 02/20/2012 HOWARD C[employer]ER SUCCESS SPECIALIST, BILLY 627.9 MENOPAUSAL AND POSTMENOPAUSAL DISORDER UNSPECIFIED 02/20/2012 HOWARD C[employer]ER SUCCESS SPECIALIST, BILLY V76.10 Breast Cancer Screening 02/20/2012 HOWARD C[employer]ER SUCCESS SPECIALIST, BILLY V76.47 Vaginal Pap Smear Screening 02/20/2012 TAYLOR CARVAJAL MD 627.9 MENOPAUSAL AND POSTMENOPAUSAL DISORDER UNSPECIFIED 02/20/2012 TAYLOR CARVAJAL MD V76.10 Breast Cancer Screening 02/20/2012 TAYLOR CARVAJAL MD V76.47 Vaginal Pap Smear Screening 02/20/2012 JEMMA C[employer]OMER SUCCESS SPECIALIST, CRISTIANE A 627.9 MENOPAUSAL AND POSTMENOPAUSAL DISORDER UNSPECIFIED 02/20/2012 JEMMA C[employer]OMER SUCCESS SPECIALIST, CRISTIANE A V76.10 Breast Cancer Screening 02/20/2012 JEMMA C[employer]OMER SUCCESS SPECIALIST, CRISTIANE A V76.47 Vaginal Pap Smear Screening 02/20/2012 JEMMA RAMOSN, CRISTIANE A 627.9 MENOPAUSAL AND POSTMENOPAUSAL DISORDER UNSPECIFIED 02/20/2012 JEMMA C[employer]ER SUCCESS SPECIALIST, CRISTIANE A V76.10 Breast Cancer Screening 02/20/2012 JEMMA C[employer]OMER SUCCESS SPECIALIST, CRISTIANE A V76.47 Vaginal Pap Smear Screening 02/20/2012 HOWARD C[employer]ER SUCCESS SPECIALIST, BILYL 627.9 MENOPAUSAL AND POSTMENOPAUSAL DISORDER UNSPECIFIED 02/20/2012 HOWARD C[employer]ER SUCCESS SPECIALIST, BILLY V76.10 Breast Cancer Screening 02/20/2012 HOWARD C[employer]ER SUCCESS SPECIALIST, BILLY V76.47 Vaginal Pap Smear Screening 02/20/2012 GELY HOBBS APRNA S 627.9 MENOPAUSAL AND POSTMENOPAUSAL DISORDER UNSPECIFIED 02/20/2012 FABY [place] SERAFIN S V76.10 Breast Cancer Screening 02/20/2012 FABY [place] SERAFIN S V76.47 Vaginal Pap Smear Screening 02/20/2012 HOWARD [place] BILLY 627.9 MENOPAUSAL AND POSTMENOPAUSAL DISORDER UNSPECIFIED 02/20/2012 HOWARD CUSTOMER SUCCESS SPECIALIST, BILLY V76.10 Breast Cancer Screening 02/20/2012 HOWARD CUSTOMER SUCCESS SPECIALIST, BILLY V76.47 Vaginal Pap Smear Screening 02/20/2012 [...] 03/11/2012 KARMEN ESPINOSA APRN 079.4 HPV 03/11/2012 KARMNE ESPINOSA APRN 795.01 ABNORMAL PAP - ASCUS [...] TAYLOR CARVAJAL MD 079.4 HPV 03/11/2012 TAYLOR CARVAAJL MD 795.01 ABNORMAL PAP - ASCUS 03/11/2012 [...] 795.01 ABNORMAL PAP - ASCUS 03/11/2012 HOWARD CUSTOMER SUCCESS SPECIALIST, BILLY 079.4 HPV 03/11/2012 HOWARD CUSTOMER SUCCESS SPECIALIST, BILLY 795.01 ABNORMAL PAP - ASCUS 03/11/2012 HOWARD CUSTOMER SUCCESS SPECIALIST, BILLY 079.4 HPV 03/11/2012 HWOARD CUSTOMER SUCCESS SPECIALIST, BILLY 795.01 ABNORMAL PAP - ASCUS 03/11/2012 TAYLOR CARVAJAL MD 079.4 HPV 03/11/2012 TAYLOR CARVAJAL MD 795.01 ABNORMAL PAP - ASCUS 03/11/2012 HOWARD CUSTOMER SUCCESS SPECIALIST, BILLY 079.4 HPV 03/11/2012 HOWARD CUSTOMER SUCCESS SPECIALIST, BILLY 795.01 ABNORMAL PAP - ASCUS 03/11/2012 HOWARD CUSTOMER SUCCESS SPECIALIST, BILLY 079.4 HPV 03/11/2012 HOWARD CUSTOMER SUCCESS SPECIALIST, BILLY 795.01 ABNORMAL PAP - ASCUS 03/11/2012 TAYLOR CARVAJAL MD 079.4 HPV 03/11/2012 TAYLOR CARVAJAL MD 795.01 ABNORMAL PAP - ASCUS 03/11/2012 JEMMA CUSTOMER SUCCESS SPECIALIST, CRISTIANE A 079.4 HPV 03/11/2012 JEMMA CUSTOMER SUCCESS SPECIALIST, CRISTIANE A 795.01 ABNORMAL PAP - ASCUS 03/11/2012 JEMMA CUSTOMER SUCCESS SPECIALIST, CRISTIANE A 079.4 HPV 03/11/2012 JEMMA CUSTOMER SUCCESS SPECIALIST, CRISTIANE A 795.01 ABNORMAL PAP - ASCUS 03/11/2012 HOWARD CUSTOMER SUCCESS SPECIALIST, BILLY 079.4 HPV 03/11/2012 HOWARD CUSTOMER SUCCESS SPECIALIST, BILLY 795.01 ABNORMAL PAP - ASCUS 03/11/2012 FABY CUSTOMER SUCCESS SPECIALIST, SERAFIN S 079.4 HPV 03/11/2012 FABY CUSTOMER SUCCESS SPECIALIST, SERAFIN S 795.01 ABNORMAL PAP - ASCUS 03/11/2012 HOWARD CUSTOMER SUCCESS SPECIALIST, BILLY 079.4 HPV 03/11/2012 HOWARD CUSTOMER SUCCESS SPECIALIST, BILLY 795.01 ABNORMAL PAP - ASCUS 03/11/2012 FABY CUSTOMER SUCCESS SPECIALIST, SERAFIN S 079.4 HPV 03/11/2012 FABY CUSTOMER SUCCESS SPECIALIST, SERAFIN S 795.01 ABNORMAL PAP - ASCUS [...] BRONCHITIS AECB 02/19/2013 491.21 BRONCHITIS AECB 02/19/2013 KARMEN ESPINOSA APRN [...] CARVAJAL MD 491.21 BRONCHITIS AECB 02/19/2013 HOWARD CUSTOMER SUCCESS SPECIALIST, BILLY 491.21 BRONCHITIS AECB 02/19/2013 HOWARD CUSTOMER SUCCESS SPECIALIST, BILLY 491.21 BRONCHITIS AECB 02/19/2013 TAYLOR CARVAJAL MD 491.21 BRONCHITIS AECB 02/19/2013 HOWARD CUSTOMER SUCCESS SPECIALIST, BILLY 491.21 BRONCHITIS AECB 02/19/2013 HOWARD CUSTOMER SUCCESS SPECIALIST, BILLY 491.21 BRONCHITIS AECB 02/19/2013 TAYLOR CARVAJAL MD 491.21 BRONCHITIS AECB 02/19/2013 JEMMA APRN, CRISTIANE A 491.21 BRONCHITIS AECB 02/19/2013 JEMMATao [place] CRISTIANE A 491.21 BRONCHITIS AECB 02/19/2013 HOWARD CUSTOMER SUCCESS SPECIALIST, BILLY 491.21 BRONCHITIS AECB 02/19/2013 GELY HOBBS APRNA S 491.21 BRONCHITIS AECB 02/19/2013 HOWARD CUSTOMER SUCCESS SPECIALIST, BILLY 491.21 BRONCHITIS AECB 02/19/2013 FABY [place] SERAFIN S 491.21 BRONCHITIS AECB 02/19/2013 SACHA PITT APRN 491.21 BRONCHITIS AECB 02/19/2013 FABY [place] SERAFIN S 491.21 BRONCHITIS AECB 02/19/2013 HOWARD CUSTOMER SUCCESS SPECIALIST, BILLY 491.21 BRONCHITIS AECB 02/19/2013 RADHA HOBBS [...] MD V76.51 COLON CANCER SCREENING 03/24/2013 HOWARD CUSTOMER SUCCESS SPECIALIST, BILLY V65.49 OTHER SPECIFIED COUNSELING 03/24/2013 HOWARD CUSTOMER SUCCESS SPECIALIST, BILLY V73.81 HPV SCREENING 03/24/2013 HOWARD CUSTOMER SUCCESS SPECIALIST, BILLY V76.51 COLON CANCER SCREENING 03/24/2013 HOWARD CUSTOMER SUCCESS SPECIALIST, BILLY V65.49 OTHER SPECIFIED COUNSELING 03/24/2013 HOWARD CUSTOMER SUCCESS SPECIALIST, BILLY V73.81 HPV SCREENING 03/24/2013 HOWARD CUSTOMER SUCCESS SPECIALIST, BILLY V76.51 COLON CANCER SCREENING 03/24/2013 TAYLOR CARVAJAL MD V65.49 OTHER SPECIFIED COUNSELING 03/24/2013 TAYLOR CARVAJAL MD V73.81 HPV SCREENING 03/24/2013 TAYLOR CARVAJAL MD V76.51 COLON CANCER SCREENING 03/24/2013 HOWARD CUSTOMER SUCCESS SPECIALIST, BILLY V65.49 OTHER SPECIFIED COUNSELING 03/24/2013 HOWARD CUSTOMER SUCCESS SPECIALIST, BILLY V73.81 HPV SCREENING 03/24/2013 HOWRAD CUSTOMER SUCCESS SPECIALIST, BILLY V76.51 COLON CANCER SCREENING 03/24/2013 HOWARD CUSTOMER SUCCESS SPECIALIST, BILLY V65.49 OTHER SPECIFIED COUNSELING 03/24/2013 HOWARD CUSTOMER SUCCESS SPECIALIST, BILLY V73.81 HPV SCREENING 03/24/2013 HOWARD CUSTOMER SUCCESS SPECIALIST, BILLY V76.51 COLON CANCER SCREENING 03/24/2013 TAYLOR CARVAJAL MD V65.49 OTHER SPECIFIED COUNSELING 03/24/2013 TAYLOR CARVAJAL MD V73.81 HPV SCREENING 03/24/2013 TAYLOR CARVAJAL MD V76.51 COLON CANCER SCREENING 03/24/2013 JEMMA RAMOSN, CRISTIANE A V65.49 OTHER SPECIFIED COUNSELING 03/24/2013 JEMMA CUSTOMER SUCCESS SPECIALIST, CRISTIANE A V73.81 HPV SCREENING 03/24/2013 JEMMA RAMOSN, CRISTIANE A V76.51 COLON CANCER SCREENING 03/24/2013 JEMMA RAMOSN, CRISTIANE A V65.49 OTHER SPECIFIED COUNSELING 03/24/2013 JEMMA CUSTOMER SUCCESS SPECIALIST, CRISTIANE A V73.81 HPV SCREENING 03/24/2013 JEMMA RAMOSN, CRISTIANE A V76.51 COLON CANCER SCREENING 03/24/2013 HOWARD CUSTOMER SUCCESS SPECIALIST, BILLY V65.49 OTHER SPECIFIED COUNSELING 03/24/2013 HOWARD CUSTOMER SUCCESS SPECIALIST, BILLY V73.81 HPV SCREENING 03/24/2013 HOWARD CUSTOMER SUCCESS SPECIALIST, BILLY V76.51 COLON CANCER SCREENING 03/24/2013 FABY [place] SERAFIN S V65.49 OTHER SPECIFIED COUNSELING 03/24/2013 FABY [place] SERAFIN S V73.81 HPV SCREENING 03/24/2013 FABY [place] SERAFIN S V76.51 COLON CANCER SCREENING 03/24/2013 HOWARD CUSTOMER SUCCESS SPECIALIST, BILLY V65.49 OTHER SPECIFIED COUNSELING 03/24/2013 HOWARD CUSTOMER SUCCESS SPECIALIST, BILLY V73.81 HPV SCREENING 03/24/2013 HOWARD CUSTOMER SUCCESS SPECIALIST, BILLY V76.51 COLON CANCER SCREENING 03/24/2013 FABY [...] S V76.51 COLON CANCER SCREENING 03/24/2013 HOWARD CUSTOMER SUCCESS SPECIALIST, BILLY V65.49 OTHER SPECIFIED COUNSELING 03/24/2013 HOWARD [...] 782.0 DISTURBANCE OF SKIN SENSATION 04/08/2013 HOWARD CUSTOMER SUCCESS SPECIALIST, BILLY 719.43 PAIN IN JOINT INVOLVING FOREARM 04/08/2013 HOWARD CUSTOMER SUCCESS SPECIALIST, BILLY 782.0 DISTURBANCE OF SKIN SENSATION 04/08/2013 HOWARD CUSTOMER SUCCESS SPECIALIST, BILLY 719.43 PAIN IN JOINT INVOLVING FOREARM 04/08/2013 HOWARD CUSTOMER SUCCESS SPECIALIST, BILLY 782.0 DISTURBANCE OF SKIN SENSATION 04/08/2013 TAYLOR CARVAJAL MD 719.43 PAIN IN JOINT INVOLVING FOREARM 04/08/2013 TAYLOR CARVAJAL MD 782.0 DISTURBANCE OF SKIN SENSATION 04/08/2013 HOWARD CUSTOMER SUCCESS SPECIALIST, BILLY 719.43 PAIN IN JOINT INVOLVING FOREARM 04/08/2013 HOWARD CUSTOMER SUCCESS SPECIALIST, BILLY 782.0 DISTURBANCE OF SKIN SENSATION 04/08/2013 HOWARD CUSTOMER SUCCESS SPECIALIST, BILLY 719.43 PAIN IN JOINT INVOLVING FOREARM 04/08/2013 HOWARD CUSTOMER SUCCESS SPECIALIST, BILLY 782.0 DISTURBANCE OF SKIN SENSATION 04/08/2013 [...] 782.0 DISTURBANCE OF SKIN SENSATION 04/08/2013 HOWARD CUSTOMER SUCCESS SPECIALIST, BILLY 719.43 PAIN IN JOINT INVOLVING FOREARM 04/08/2013 HOWARD CUSTOMER SUCCESS SPECIALIST, BILLY 782.0 DISTURBANCE OF SKIN SENSATION 04/08/2013 FABY CUSTOMER SUCCESS SPECIALIST, SERAFIN S 719.43 PAIN IN JOINT INVOLVING FOREARM 04/08/2013 FABY CUSTOMER SUCCESS SPECIALIST, SERAFIN S 782.0 DISTURBANCE OF SKIN SENSATION 04/08/2013 HOWARD CUSTOMER SUCCESS SPECIALIST, BILLY 719.43 PAIN IN JOINT INVOLVING FOREARM 04/08/2013 HOWARD CUSTOMER SUCCESS SPECIALIST, BILLY 782.0 DISTURBANCE OF SKIN SENSATION 04/08/2013 FABY CUSTOMER SUCCESS SPECIALIST, SERAFIN S 719.43 PAIN IN JOINT INVOLVING FOREARM 04/08/2013 FABY CUSTOMER SUCCESS SPECIALIST, SERAFIN S 782.0 DISTURBANCE OF SKIN SENSATION 04/08/2013 SACHA PITT APRN 719.43 PAIN IN JOINT INVOLVING FOREARM 04/08/2013 SACHA PITT APRN 782.0 DISTURBANCE OF SKIN SENSATION 04/08/2013 FABY CUSTOMER SUCCESS SPECIALIST, SERAFIN S 719.43 PAIN IN JOINT INVOLVING FOREARM 04/08/2013 FABY CUSTOMER SUCCESS SPECIALIST, SERAFIN S 782.0 DISTURBANCE OF SKIN SENSATION 04/08/2013 HOWARD CUSTOMER SUCCESS SPECIALIST, BILLY 719.43 PAIN IN JOINT INVOLVING FOREARM 04/08/2013 HOWARD CUSTOMER SUCCESS SPECIALIST, BILLY 782.0 DISTURBANCE OF SKIN SENSATION 04/08/2013 FABY CUSTOMER SUCCESS SPECIALIST, SERAFIN S 719.43 PAIN IN JOINT INVOLVING FOREARM 04/08/2013 FABY CUSTOMER SUCCESS SPECIALIST, SERAFIN S 782.0 DISTURBANCE OF SKIN SENSATION [...] SCALP AND NECK EXCEPT EYE(S) 06/22/2013 HOWARD CUSTOMER SUCCESS SPECIALIST, BILLY 920 CONTUSION OF FACE SCALP AND NECK EXCEPT EYE(S) 06/22/2013 HOWARD CUSTOMER SUCCESS SPECIALIST, BILLY 920 CONTUSION OF FACE SCALP AND NECK EXCEPT EYE(S) 06/22/2013 TAYLOR CARVAJAL MD 920 CONTUSION OF FACE SCALP AND NECK EXCEPT EYE(S) 06/22/2013 HOWARD CUSTOMER SUCCESS SPECIALIST, BILLY 920 CONTUSION OF FACE SCALP AND NECK EXCEPT EYE(S) 06/22/2013 HOWARD CUSTOMER SUCCESS SPECIALIST, BILLY 920 CONTUSION OF FACE SCALP AND NECK EXCEPT EYE(S) 06/22/2013 TAYLOR CARVAJAL MD 920 CONTUSION OF FACE SCALP AND NECK EXCEPT EYE(S) 06/22/2013 JEMMA OCTAVIO, CRISTIANE A 920 CONTUSION OF FACE SCALP AND NECK EXCEPT EYE(S) 06/22/2013 JEMMA CUSTOMER SUCCESS SPECIALIST, CRISTIANE A 920 CONTUSION OF FACE SCALP AND NECK EXCEPT EYE(S) 06/22/2013 HOWARD CUSTOMER SUCCESS SPECIALIST, BILLY 920 CONTUSION OF FACE SCALP AND [...] 790.6 OTHER ABNORMAL BLOOD CHEMISTRY 10/09/2013 HOWARD CUSTOMER SUCCESS SPECIALIST, BILLY 790.6 OTHER ABNORMAL BLOOD CHEMISTRY 10/09/2013 HOWARD [place] BILLY 790.6 OTHER ABNORMAL BLOOD CHEMISTRY 10/09/2013 TAYLOR CARVAJAL MD 790.6 OTHER ABNORMAL BLOOD CHEMISTRY 10/09/2013 HOWARD CUSTOMER SUCCESS SPECIALIST, BILLY 790.6 OTHER ABNORMAL BLOOD CHEMISTRY 10/09/2013 HOWARD CUSTOMER SUCCESS SPECIALIST, BILLY 790.6 OTHER ABNORMAL BLOOD CHEMISTRY 10/09/2013 TAYLRO CARVAJAL MD 790.6 OTHER ABNORMAL BLOOD CHEMISTRY 10/09/2013 JEMMA CUSTOMER SUCCESS SPECIALIST, CRISTIANE A 790.6 OTHER ABNORMAL BLOOD CHEMISTRY 10/09/2013 JEMMA CUSTOMER SUCCESS SPECIALIST, CRISTIANE A 790.6 OTHER ABNORMAL BLOOD CHEMISTRY 10/09/2013 HOWARD [place] BILLY 790.6 OTHER ABNORMAL BLOOD CHEMISTRY 10/09/2013 FABY [place], SERAFIN S 790.6 OTHER ABNORMAL BLOOD CHEMISTRY 10/09/2013 HOWARD CUSTOMER SUCCESS SPECIALIST, BILLY 790.6 OTHER ABNORMAL BLOOD CHEMISTRY 10/09/2013 FABY [place] SERAFIN S 790.6 OTHER ABNORMAL BLOOD CHEMISTRY 10/09/2013 SACHA PITT APRN 790.6 OTHER ABNORMAL BLOOD CHEMISTRY 10/09/2013 FABY [place], SERAFIN S 790.6 OTHER ABNORMAL BLOOD CHEMISTRY 10/09/2013 HOWARD CUSTOMER SUCCESS SPECIALIST, BILLY 790.6 OTHER ABNORMAL BLOOD CHEMISTRY 10/09/2013 FABY [place] SERAFIN S 790.6 OTHER ABNORMAL BLOOD CHEMISTRY 02/16/2014 HOWARD [place] BILLY 296.32 MO DEPRESSIVE RECURRENT MODERATE 02/16/2014 HOWARD [place] BILLY 296.32 MO DEPRESSIVE RECURRENT MODERATE 02/16/2014 TAYLOR CARVAJAL MD 296.32 MO DEPRESSIVE RECURRENT MODERATE 02/16/2014 HOWARD CUSTOMER SUCCESS SPECIALIST, BILLY 296.32 MO DEPRESSIVE RECURRENT MODERATE 02/16/2014 HOWARD CUSTOMER SUCCESS SPECIALIST, BILLY 296.32 MO DEPRESSIVE RECURRENT MODERATE 02/16/2014 TAYLOR CARVAJAL MD 296.32 MO DEPRESSIVE RECURRENT MODERATE 02/16/2014 JEMMA CUSTOMER SUCCESS SPECIALIST, CRISTIANE A 296.32 MO DEPRESSIVE RECURRENT MODERATE 02/16/2014 JEMMA CUSTOMER SUCCESS SPECIALIST, CRISTIANE A 296.32 MO DEPRESSIVE RECURRENT MODERATE 02/16/2014 HOWARD CUSTOMER SUCCESS SPECIALIST, BILLY 296.32 MO DEPRESSIVE RECURRENT MODERATE 02/16/2014 FABY CUSTOMER SUCCESS SPECIALIST, SERAFIN S 296.32 MO DEPRESSIVE RECURRENT MODERATE 02/16/2014 HOWARD CUSTOMER SUCCESS SPECIALIST, BILLY 296.32 MO DEPRESSIVE RECURRENT MODERATE 02/16/2014 FABY CUSTOMER SUCCESS SPECIALIST SERAFIN S 296.32 MO DEPRESSIVE RECURRENT MODERATE 02/16/2014 SACHA PITT APRN 296.32 MO DEPRESSIVE RECURRENT MODERATE 02/16/2014 FABY CUSTOMER SUCCESS SPECIALIST SERAFIN S 296.32 MO DEPRESSIVE RECURRENT MODERATE 02/16/2014 HOWARD CUSTOMER SUCCESS SPECIALIST, BILLY 296.32 MO DEPRESSIVE RECURRENT MODERATE 02/16/2014 FABY CUSTOMER SUCCESS SPECIALIST, SERAFIN S 296.32 MO DEPRESSIVE RECURRENT MODERATE 06/21/2014 TAYLOR CARVAJAL MD 477.9 ALLERGIC RHINITIS CAUSE UNSPECIFIED 06/21/2014 TAYLOR CARVAJAL MD V04.81 FLU SHOT 06/21/2014 JEMMA CUSTOMER SUCCESS SPECIALIST, CRISTIANE A 477.9 ALLERGIC RHINITIS CAUSE UNSPECIFIED 06/21/2014 JEMMA CUSTOMER SUCCESS SPECIALIST, CRISTIANE A V04.81 FLU SHOT 06/21/2014 JEMMA CUSTOMER SUCCESS SPECIALIST, CRISTIANE A 477.9 ALLERGIC RHINITIS CAUSE UNSPECIFIED 06/21/2014 JEMMA CUSTOMER SUCCESS SPECIALIST, CRISTIANE A V04.81 FLU SHOT 06/21/2014 HOWARD CUSTOMER SUCCESS SPECIALIST, BILLY 477.9 ALLERGIC RHINITIS CAUSE UNSPECIFIED 06/21/2014 HOWARD CUSTOMER SUCCESS SPECIALIST, BILLY V04.81 FLU SHOT 06/21/2014 FABY CUSTOMER SUCCESS SPECIALIST, SERAFIN S 477.9 ALLERGIC RHINITIS CAUSE UNSPECIFIED 06/21/2014 FABY CUSTOMER SUCCESS SPECIALIST, SERAFIN S V04.81 FLU SHOT 06/21/2014 HOWARD CUSTOMER SUCCESS SPECIALIST, BILLY 477.9 ALLERGIC RHINITIS CAUSE UNSPECIFIED 06/21/2014 HOWARD CUSTOMER SUCCESS SPECIALIST, BILLY V04.81 FLU SHOT 06/21/2014 FABY CUSTOMER SUCCESS SPECIALIST, SERAFIN S 477.9 ALLERGIC RHINITIS CAUSE UNSPECIFIED 06/21/2014 FABY CUSTOMER SUCCESS SPECIALIST, SERAFIN S V04.81 FLU SHOT 06/21/2014 PITT CUSTOMER SUCCESS SPECIALISTSACHA D 477.9 ALLERGIC RHINITIS CAUSE UNSPECIFIED 06/21/2014 PITT CUSTOMER SUCCESS SPECIALISTSACHA D V04.81 FLU SHOT 06/21/2014 FABY CUSTOMER SUCCESS SPECIALIST, SERAFIN S 477.9 ALLERGIC RHINITIS CAUSE UNSPECIFIED 06/21/2014 FABY CUSTOMER SUCCESS SPECIALIST, SERAFIN S V04.81 FLU SHOT 06/21/2014 HOWARD CUSTOMER SUCCESS SPECIALIST, BILLY 477.9 ALLERGIC RHINITIS CAUSE UNSPECIFIED 06/21/2014 HOWARD CUSTOMER SUCCESS SPECIALIST, BILLY V04.81 FLU SHOT 06/21/2014 FABY CUSTOMER SUCCESS SPECIALIST, SERAFIN S 477.9 ALLERGIC RHINITIS CAUSE UNSPECIFIED 06/21/2014 FABY CUSTOMER SUCCESS SPECIALIST, SERAFIN S V04.81 FLU SHOT 08/05/2014 JEMAM CUSTOMER SUCCESS SPECIALIST, CRISTIANE A V65.42 COUNSELING - SMOKING CESSATION 08/05/2014 JEMMA CUSTOMER SUCCESS SPECIALIST, CRISTIANE A V72.31 VISITING PROFESSOR EXAM, ROUTINE 08/05/2014 JEMMA CUSTOMER SUCCESS SPECIALIST, CRISTIANE A V76.10 BREAST CANCER SCREENING 08/05/2014 JEMMA CUSTOMER SUCCESS SPECIALIST, CRISTIANE A V76.51 COLON CANCER SCREENING 08/05/2014 JEMMA CUSTOMER SUCCESS SPECIALIST, CRISTIANE A V65.42 COUNSELING - SMOKING CESSATION 08/05/2014 JEMMA CUSTOMER SUCCESS SPECIALIST, CRISTIANE A V72.31 VISITING PROFESSOR EXAM, ROUTINE 08/05/2014 JEMMA CUSTOMER SUCCESS SPECIALIST, CRISTIANE A V76.10 BREAST CANCER SCREENING 08/05/2014 JEMMA CUSTOMER SUCCESS SPECIALIST, CRISTIANE A V76.51 COLON CANCER SCREENING 08/05/2014 HOWARD CUSTOMER SUCCESS SPECIALIST, BILLY V65.42 COUNSELING - SMOKING CESSATION 08/05/2014 HOWARD CUSTOMER SUCCESS SPECIALIST, BILLY V72.31 VISITING PROFESSOR EXAM, ROUTINE 08/05/2014 HOWARD CUSTOMER SUCCESS SPECIALIST, BILLY V76.10 BREAST CANCER SCREENING 08/05/2014 HOWARD CUSTOMER SUCCESS SPECIALIST, BILLY V76.51 COLON CANCER SCREENING 08/05/2014 FABY CUSTOMER SUCCESS SPECIALIST SERAFIN S V65.42 COUNSELING - SMOKING CESSATION 08/05/2014 FABY [place], SERAFIN S V72.31 VISITING PROFESSOR EXAM, ROUTINE 08/05/2014 FABY [place], SERAFIN S V76.10 BREAST CANCER SCREENING 08/05/2014 FABY CUSTOMER SUCCESS SPECIALIST, SERAFIN S V76.51 COLON CANCER SCREENING 08/05/2014 HOWARD CUSTOMER SUCCESS SPECIALIST, BILLY V65.42 COUNSELING - SMOKING CESSATION 08/05/2014 HOWARD CUSTOMER SUCCESS SPECIALIST, BILLY V72.31 VISITING PROFESSOR EXAM, ROUTINE 08/05/2014 HOWARD CUSTOMER SUCCESS SPECIALIST, BILLY V76.10 BREAST CANCER SCREENING 08/05/2014 HOWARD CUSTOMER SUCCESS SPECIALIST, BILLY V76.51 COLON CANCER SCREENING 08/05/2014 FABY [place] SERAFIN S V65.42 COUNSELING - SMOKING CESSATION 08/05/2014 FABY CUSTOMER SUCCESS SPECIALIST, SERAFIN S V72.31 VISITING PROFESSOR EXAM, ROUTINE 08/05/2014 FABY CUSTOMER SUCCESS SPECIALIST, SERAFIN S V76.10 BREAST CANCER SCREENING 08/05/2014 FABY [place], SERAFIN S V76.51 COLON CANCER SCREENING 08/05/2014 SACHA PITT APRN V65.42 COUNSELING - SMOKING CESSATION 08/05/2014 SACHA PITT APRN V72.31 VISITING PROFESSOR EXAM, ROUTINE 08/05/2014 SACHA PITT APRN V76.10 BREAST CANCER SCREENING 08/05/2014 SACHA PITT APRN V76.51 COLON CANCER SCREENING 08/05/2014 FABY [place], SERAFIN S V65.42 COUNSELING - SMOKING CESSATION 08/05/2014 FABY [place] SERAFIN S V72.31 VISITING PROFESSOR EXAM, ROUTINE 08/05/2014 FABY CUSTOMER SUCCESS SPECIALIST, SERAFIN S V76.10 BREAST CANCER SCREENING 08/05/2014 FABY CUSTOMER SUCCESS SPECIALIST, SERAFIN S V76.51 COLON CANCER SCREENING 08/05/2014 HOWARD CUSTOMER SUCCESS SPECIALIST, BILLY V65.42 COUNSELING - SMOKING CESSATION 08/05/2014 HOWARD CUSTOMER SUCCESS SPECIALIST, BILLY V72.31 VISITING PROFESSOR EXAM, ROUTINE 08/05/2014 HOWARD CUSTOMER SUCCESS SPECIALIST, BILLY V76.10 BREAST CANCER SCREENING 08/05/2014 HOWARD CUSTOMER SUCCESS SPECIALIST, BILLY V76.51 COLON CANCER SCREENING 08/05/2014 FABY [place] SERAFIN S V65.42 COUNSELING - SMOKING CESSATION 08/05/2014 RADHA HOBBS APRNNDA S V72.31 VISITING PROFESSOR EXAM, ROUTINE 08/05/2014 RADHA HOBBS APRNNDA S V76.10 BREAST CANCER SCREENING 08/05/2014 RADHA HOBBS APRNNDA S V76.51 COLON CANCER SCREENING 08/11/2014 JEMMA [place], CRISTIANE A 792.1 HEMOCCULT POSITIVE STOOL 08/11/2014 HOWARD CUSTOMER SUCCESS SPECIALIST, BILLY 792.1 HEMOCCULT POSITIVE STOOL 08/11/2014 RADHA HOBBS APRNNDA S 792.1 HEMOCCULT POSITIVE STOOL 08/11/2014 HOWARD CUSTOMER SUCCESS SPECIALIST, BILLY 792.1 HEMOCCULT POSITIVE STOOL 08/11/2014 RADHA HOBBS APRNNDA S 792.1 HEMOCCULT POSITIVE STOOL 08/11/2014 SACHA PITT APRN 792.1 HEMOCCULT POSITIVE STOOL 08/11/2014 RAHDA HOBBS APRNNDA S 792.1 HEMOCCULT POSITIVE STOOL 08/11/2014 HOWARD CUSTOMER SUCCESS SPECIALIST, BILLY 792.1 HEMOCCULT POSITIVE STOOL 08/11/2014 RADHA HOBBS APRNNDA S 792.1 HEMOCCULT POSITIVE STOOL 08/16/2014 CRISTIANE EASTON A CUSTOMER SUCCESS SPECIALIST Ot V76.12 08/17/2014 HOWARD CUSTOMER SUCCESS SPECIALIST, BILLY 314.00 ADHD INATTENTIVE 08/17/2014 RADHA HOBBS APRNNDA S 314.00 ADHD INATTENTIVE 08/17/2014 HOWARD CUSTOMER SUCCESS SPECIALIST, BILLY 314.00 ADHD INATTENTIVE 08/17/2014 RADHA HOBBS APRNNDA S 314.00 ADHD INATTENTIVE 08/17/2014 SACHA PITT APRN 314.00 ADHD INATTENTIVE 08/17/2014 RADHA HOBBS APRNNDA S 314.00 ADHD INATTENTIVE 08/17/2014 HOWARD CUSTOMER SUCCESS SPECIALIST, BILLY 314.00 ADHD INATTENTIVE 08/17/2014 FABY [place] SERAFIN S 314.00 ADHD INATTENTIVE 08/19/2014 RADHA HOBBS APRNNDA S 681.02 ONYCHIA AND PARONYCHIA OF FINGER 08/19/2014 FABY CUSTOMER SUCCESS SPECIALIST, SERAFIN S 719.47 PAIN- ANKLE 08/19/2014 FABY [place], SERAFIN S 724.2 LUMBAGO/ LOW BACK PAIN 08/19/2014 RADHA HOBBS APRNNDA S 729.5 PAIN- FINGERS 08/19/2014 FABY [place], SERAFIN S 790.6 ABNORMAL LFT (LIVER FUNCTION TEST) 08/19/2014 HOWARD CUSTOMER SUCCESS SPECIALIST, BILLY 681.02 ONYCHIA AND PARONYCHIA OF FINGER 08/19/2014 HOWARD CUSTOMER SUCCESS SPECIALIST, BILLY 719.47 PAIN- ANKLE 08/19/2014 HOWARD CUSTOMER SUCCESS SPECIALIST, BILLY 724.2 LUMBAGO/ LOW BACK PAIN 08/19/2014 HOWARD CUSTOMER SUCCESS SPECIALIST, BILLY 729.5 PAIN- FINGERS 08/19/2014 HOWARD CUSTOMER SUCCESS SPECIALIST, BILLY 790.6 ABNORMAL LFT (LIVER FUNCTION TEST) [...] APRNA S 719.47 PAIN- ANKLE 08/19/2014 FABY CUSTOMER SUCCESS SPECIALIST, SERAFIN S 724.2 LUMBAGO/ LOW BACK PAIN 08/19/2014 FABY CUSTOMER SUCCESS SPECIALIST, SERAFIN S 729.5 PAIN- FINGERS 08/19/2014 FABY CUSTOMER SUCCESS SPECIALIST, SERAFIN S 790.6 ABNORMAL LFT (LIVER FUNCTION TEST) 08/19/2014 HOWARD CUSTOMER SUCCESS SPECIALIST, BILLY 681.02 ONYCHIA AND PARONYCHIA OF FINGER 08/19/2014 HOWARD CUSTOMER SUCCESS SPECIALIST, BILLY 719.47 PAIN- ANKLE 08/19/2014 HOWARD CUSTOMER SUCCESS SPECIALIST, BILLY 724.2 LUMBAGO/ LOW BACK PAIN 08/19/2014 HOWARD CUSTOMER SUCCESS SPECIALIST, BILLY 729.5 PAIN- FINGERS 08/19/2014 HOWARD CUSTOMER SUCCESS SPECIALIST, BILLY 790.6 ABNORMAL LFT (LIVER FUNCTION TEST) 08/19/2014 FABY CUSTOMER SUCCESS SPECIALIST, SERAFIN S 681.02 ONYCHIA AND PARONYCHIA OF FINGER 08/19/2014 FABY CUSTOMER SUCCESS SPECIALIST, SERAFIN S 719.47 PAIN- ANKLE 08/19/2014 FABY CUSTOMER SUCCESS SPECIALIST, SERAFIN S 724.2 LUMBAGO/ LOW BACK PAIN 08/19/2014 FABY CUSTOMER SUCCESS SPECIALIST, SERAFIN S 729.5 PAIN- FINGERS 08/19/2014 FABY CUSTOMER SUCCESS SPECIALIST, SERAFIN S 790.6 ABNORMAL LFT (LIVER FUNCTION TEST) 09/01/2014 CRISTIANE EASTON CUSTOMER SUCCESS SPECIALIST Ot V76.12 09/09/2014 FABY CUSTOMER SUCCESS SPECIALIST, SERAFIN S 486 PNEUMONIA UNSPECIFIED 09/09/2014 SACHA PITT APRN 486 PNEUMONIA UNSPECIFIED 09/09/2014 FABY CUNNINGHAM, SERAFIN S 486 PNEUMONIA UNSPECIFIED 09/09/2014 HOWARD CUSTOMER SUCCESS SPECIALIST, BILLY 486 PNEUMONIA UNSPECIFIED 09/09/2014 FABY RAMOSN, SERAFIN S 486 PNEUMONIA UNSPECIFIED 09/23/2014 SACHA PITT APRN 070.54 HEPATITIS C CHRONIC 09/23/2014 FABY CUNNINGHAM SERAFIN S 070.54 HEPATITIS C CHRONIC 09/23/2014 HOWARD CUSTOMER SUCCESS SPECIALIST BILLY 070.54 HEPATITIS C CHRONIC 09/23/2014 RADHA [...] AND TENDONS IN SHOULDER REGION 09/30/2014 SERAFIN HBOBS APRN S 726.19 OTHER SPECIFIED DISORDERS OF [...] HOBBS APRN S 786.2 COUGH 11/17/2014 HOWARD CUSTOMER SUCCESS SPECIALIST, BILLY 070.20 VIRAL HEPATITIS B WITH HEPATIC [...] 717.2 11/15/2015 Ot V76.12 11/15/2015 CRISTIANE EASTON CUSTOMER SUCCESS SPECIALIST Ot V76.12 11/15/2015 Ot V72.84 11/15/2015 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 PSYCH ARNP Ot Z12.31 12/06/2015 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P Ot Z12.31 12/16/2015 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 PSYCH ARNP Ot Z12.31 ENCNTR SCREEN MAMMOGRAM FOR MALIGNANT NE 12/16/2015 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 PSYCH ARNP Ot Z12.31 ENCNTR SCREEN MAMMOGRAM FOR MALIGNANT NE 11/23/2016 Ot V76.12 OTH SCREEN MAMMO-MALIGN NEOPLASM OF MJ 11/23/2016 CRISTIANE EASTON CUSTOMER SUCCESS SPECIALIST Ot V76.12 OTH SCREEN MAMMO-MALIGN NEOPLASM OF MJ 11/23/2016 Ot V72.84 EXAM PRE- OPERATIVE NOS 11/23/2016 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 PSYCH ARNP Ot Z12.31 ENCNTR SCREEN MAMMOGRAM FOR MALIGNANT NE 11/23/2016 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 PSYCH ARNP Ot Z12.31 ENCNTR SCREEN MAMMOGRAM FOR MALIGNANT NE 11/23/2016 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 PSYCH ARNP Ot Z12.31 ENCNTR SCREEN MAMMOGRAM FOR MALIGNANT NE 12/14/2016 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 PSYCH ARNP Ot Z12.31 ENCNTR SCREEN MAMMOGRAM FOR MALIGNANT NE 01/23/2017 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P Ot Z12.31 ENCNTR SCREEN MAMMOGRAM FOR MALIGNANT NE 05/10/2017 E11.21 Type 2 diabetes mellitus with diabetic nephropathy KACY SOLER MD 05/10/2017 E87.2 Acidosis RYDER LINDO, KACY 05/10/2017 E87.5 Hyperkalemia RYDER LINDO, KACY 05/10/2017 I10 Essential ( primary) hypertension RYDER LINDO, KACY 05/10/2017 N28.1 Cyst of kidney , acquired RYDER LINDO, [place] 05/21/2017 FBAYGELY MADDOXA PSYCH ARNP Ot I65.23 OCCLUSION AND STENOSIS OF BILATERAL [place]OR[place] 05/21/2017 GELY HOBBSA PSYCH ARNP Ot R41.0 DISORIENTATION, UNSPECIFIED 05/21/2017 GELY HOBBSA PSYCH ARNP Ot R42 DIZZINESS AND GIDDINESS 05/21/2017 GELY HOBBSA PSYCH ARNP Ot R53.1 WEAKNESS 06/07/2017 GELY HOBBSA PSYCH ARNP Ot I65.23 OCCLUSION AND STENOSIS OF BILATERAL [place] 06/07/2017 GELY HOBBSA PSYCH ARNP Ot R41.0 DISORIENTATION, UNSPECIFIED 06/07/2017 FABYGELY MADDOXA PSYCH ARNP Ot R42 DIZZINESS AND GIDDINESS 06/07/2017 GELY HOBBSA PSYCH ARNP Ot R53.1 WEAKNESS 06/17/2017 FABYRADHA MADDOXNDA PSYCH ARNP Ot I65.23 OCCLUSION AND STENOSIS OF BILATERAL [place] 06/17/2017 GELY HOBBSA PSYCH ARNP Ot R41.0 DISORIENTATION, UNSPECIFIED 06/17/2017 GELY HOBBSA PSYCH ARNP Ot R42 DIZZINESS AND GIDDINESS 06/17/2017 GELY HOBBSA PSYCH ARNP Ot R53.1 WEAKNESS 07/29/2017 E11.22 Type 2 diabetes mellitus with diabetic chronic kidney disease RYDER LINDO, KACY 07/29/2017 E87.2 Acidosis RYDER LINDO, KACY 07/29/2017 I12.9 Hypertensive chronic kidney disease with stage 1 through stage 4 chronic kidney disease, or unspecified chronic kidney disease RYDER LINDO, [place] 07/29/2017 N18.2 Chronic kidney disease, stage 2 (mild) RYDER LINDO, [place] 08/06/2017 000.00 NO SHOW/ CANCEL/RESCHEDULE RYDER LINDO, KACY 09/27/2017 JIMBO RODRIGUEZ Ot E86.9 VOLUME DEPLETION, UNSPECIFIED 09/27/2017 JIMBO RODRIGUEZ Ot F12.90 CANNABIS USE, UNSPECIFIED, UNCOMPLICATED 09/27/2017 JIMBO RODRIGUEZ Ot G47.9 SLEEP DISORDER, UNSPECIFIED 09/27/2017 JIMBO RODRIGUEZ Ot I10 ESSENTIAL (PRIMARY) HYPERTENSION 09/27/2017 JIMBO RODRIGUEZ L Ot S09.90XA UNSPECIFIED INJURY OF HEAD, INITIAL ENCO 09/27/2017 JIMBO RODRIGUEZ Ot W06.XXXA FALL FROM BED, INITIAL ENCOUNTER 09/27/2017 JIMBO RODRIGUEZ Ot Z87.09 PERSONAL HISTORY OF OTHER DISEASES OF TH 09/27/2017 JIMBO RODRIGUEZ Ot Z87.891 PERSONAL HISTORY OF NICOTINE DEPENDENCE 09/27/2017 JIMBO RODRIGUEZ Ot Z90.710 ACQUIRED ABSENCE OF BOTH CERVIX AND UTER 09/27/2017 JIMBO RODRIGUEZ Ot Z91.81 HISTORY OF FALLING 09/30/2017 JIMBO RODRIGUEZ Ot E86.9 VOLUME DEPLETION, UNSPECIFIED 09/30/2017 JIMBO RODRIGUEZ Ot F12.90 CANNABIS USE, UNSPECIFIED, UNCOMPLICATED 09/30/2017 JIMBO RODRIGUEZ Ot G47.9 SLEEP DISORDER, UNSPECIFIED 09/30/2017 JIMBO RODRIGUEZ Ot I10 ESSENTIAL (PRIMARY) HYPERTENSION 09/30/2017 JIMBO RODRIGUEZ Ot S09.90XA UNSPECIFIED INJURY OF HEAD, INITIAL ENCO 09/30/2017 JIMBO RODRIGUEZ Ot W06.XXXA FALL FROM BED, INITIAL ENCOUNTER 09/30/2017 JIMBO RODRIGUEZ Ot Z87.09 PERSONAL HISTORY OF OTHER DISEASES OF TH 09/30/2017 JIMBO RODRIGUEZ Ot Z87.891 PERSONAL HISTORY OF NICOTINE DEPENDENCE 09/30/2017 JIMBO RODRIGUEZ L Ot Z90.710 ACQUIRED ABSENCE OF BOTH CERVIX AND UTER 09/30/2017 JIMBO RODRIGUEZ L Ot Z91.81 HISTORY OF FALLING 10/08/2017 JIMBO RODRIGUEZ Ot E86.9 VOLUME DEPLETION, UNSPECIFIED 10/08/2017 JIMBO RODRIGUEZ Ot F12.90 CANNABIS USE, UNSPECIFIED, UNCOMPLICATED 10/08/2017 JIMBO RODRIGUEZ Ot G47.9 SLEEP DISORDER, UNSPECIFIED 10/08/2017 JIMBO RODRIGUEZ Ot I10 ESSENTIAL (PRIMARY) HYPERTENSION 10/08/2017 JIMBO RODRIGUEZ Ot S09.90XA UNSPECIFIED INJURY OF HEAD, INITIAL ENCO 10/08/2017 JIMBO RODRIGUEZ Ot W06.XXXA FALL FROM BED, INITIAL ENCOUNTER 10/08/2017 JIMBO RODRIGUEZ Ot Z87.09 PERSONAL HISTORY OF OTHER DISEASES OF TH 10/08/2017 JIMBO RODRIGUEZ Ot Z87.891 PERSONAL HISTORY OF NICOTINE DEPENDENCE 10/08/2017 JIMBO RODRIGUEZ Ot Z90.710 ACQUIRED ABSENCE OF BOTH CERVIX AND UTER 10/08/2017 JIMBO RODRIGUEZ Ot Z91.81 HISTORY OF FALLING Procedures Code [place] [address] PSYCH PHARM MGMT 07/04/2012 20634 ROUTINE VENIPUNCTURE 11/24/2012 05206 CBC 11/24/2012 57322 CMP 11/24/2012 41109 LIPID PANEL 11/24/2012 0816849 GFR CALC (RESULT ONLY) 11/24/2012 72800 TSH 11/24/2012 60324 VITAMIN D 25-HYDROXY (D2,D3 , TOTAL) 11/24/2012 91841 URINE DRUG SCREEN (IN-HOUSE ) 01/12/2013 11374 ROUTINE VENIPUNCTURE 02/10/2013 74052 CMP 02/10/2013 70471 LIPID PANEL 02/10/2013 4249238 GFR CALC (RESULT ONLY) 02/10/2013 35216 VITAMIN D 25-HYDROXY (D2,D3 , TOTAL) 02/10/2013 62671 OXIMETRY 02/19/2013 08406 ROUTINE VENIPUNCTURE 05/28/2013 66521 LIVER PANEL (LFT) 05/28/2013 82806 LIPID PANEL 05/28/2013 G0008 FLU ADMINISTRATION ( MEDICARE ONLY) 06/22/2013 74261 ROUTINE VENIPUNCTURE 09/10/2013 4351325 GFR CALC (RESULT ONLY) 09/10/2013 25530 CMP 09/10/2013 21807 LIPID PANEL 09/10/2013 89344 ROUTINE VENIPUNCTURE 10/09/2013 95717 LIVER PANEL (LFT) 10/09/2013 81530 ROUTINE VENIPUNCTURE 11/30/2013 76759 A1C (IN-HOUSE) 11/30/2013 18821 URINE DRUG SCREEN (IN-HOUSE ) 11/30/2013 86076 CMP 12/08/2013 09029 LIPID PANEL 12/08/2013 82886 TSH 12/08/2013 26015 CBC 12/08/2013 95960 URINE DRUG SCREEN (IN-HOUSE ) 02/16/2014 29854 URINE DRUG SCREEN (IN-HOUSE ) 06/10/2014 37452 MAMMOGRAM, SCREENING 08/05/2014 10278 HEMOCCULT 08/11/2014 81311 HEMOCCULT 08/11/2014 General S BellRadha fernandeztt 08/17/2014 33329 ROUTINE VENIPUNCTURE 08/19/2014 08400 XRAY LUMBAR SPINE 2 OR 3 VIEWS 08/19/2014 36970 XRAY KNEE RIGHT 1 OR 2 VIEWS 08/19/2014 57084 HEPATITIS PROFILE 08/19/2014 1423211 GFR CALC (RESULT ONLY) 08/19/2014 60562 CMP 08/19/2014 23882 LIPID PANEL 08/19/2014 54723 CBC 08/19/2014 71938 TSH 08/19/2014 2024994 HCV INDEX (RESULT ONLY) 08/20/2014 71388 ROUTINE VENIPUNCTURE 10/19/2014 27872 HIV ANTIBODIES (RML) 10/20/2014 18720 PT/INR 10/20/2014 61756 HEP C PCR QUANT W/RO[place]IE 10/21/2014 28848 HEP B DNA (QUANT) 10/27/2014 99535 ROUTINE VENIPUNCTURE 12/16/2014 39639 HEP B DNA (QUANT) 12/16/2014 90869 CMP 12/16/2014 1253202 GFR CALC (RESULT ONLY) 12/16/2014 51534 TSH 12/16/2014 78937 No Show/Cancel/Reschedule KACY SOLER MD 08/06/2017 11137 Office or other outpatient visit for the evaluation and management of a new patient, which requires KACY SOLER MD 12/03/2017 53720 Office or other outpatient visit for the evaluation and management of an established patient, which KACY SOLER MD 12/03/2017 44762 Office or other outpatient visit for the evaluation and management of a new patient, which requires KACY SOLER MD 12/04/2017 49544 Office or other outpatient visit for the evaluation and management of an established patient, which KACY SOLER MD 12/04/2017 Results Test Result Range TSH - 05/11/16 10:30 TSH 0.031 uIU/mL 0.450-4.500 TSH - 07/17/16 11:20 TSH 0.122 uIU/mL 0.450-4.500 HBV Real-Time PCR, Quant - 07/17/16 11:20 HBV IU/mL HBV DNA not detected IU/mL log10 HBV IU/mL TNP [id number]/mL Test Information: Comment CBC With Differential/Platelet - 08/16/16 17:40 WBC 10.1 x10E3/uL 3.4-10.8 RBC 4.55 x10E6/uL 3.77-5.28 Hemoglobin 15.7 g/dL 11.1-15.9 Hematocrit 45.3 % 34.0-46.6 MCV 100 fL 79-97 MCH 34.5 pg 26.6-33.0 MCHC 34.7 g/dL 31.5-35.7 RDW 14.9 % 12.3-15.4 Platelets 252 x10E3/uL 150-379 Neutrophils 58 % Lymphs 31 % Monocytes 8 % Eos 3 % Basos 0 % Neutrophils (Absolute) 5.8 x10E3/uL 1.4-7.0 Lymphs (Absolute) 3.1 x10E3/uL 0.7-3.1 Monocytes(Absolute) 0.8 x10E3/uL 0.1-0.9 Eos (Absolute) 0.3 x10E3/uL 0.0-0.4 Baso (Absolute) 0.0 x10E3/uL 0.0-0.2 Immature Granulocytes 0 % Immature Grans (Abs) 0.0 x10E3/uL 0.0-0.1 Renal Panel (10) - 08/16/16 17:40 Glucose, Serum 97 mg/dL 65-99 BUN 14 mg/dL 6-24 Creatinine, Serum 1.28 mg/dL 0.57-1.00 eGFR If NonAfricn Am 47 mL/min/1.73 >59 eGFR If Africn Am 54 mL/min/1.73 >59 BUN/Creatinine Ratio 11 9-23 Sodium, Serum 141 mmol/L 134-144 Potassium, Serum 4.0 mmol/L 3.5-5.2 Chloride, Serum 100 mmol/L 96-106 Carbon Dioxide, Total 23 mmol/L 18-29 Calcium, Serum 9.1 mg/dL 8.7-10.2 Albumin, Serum 4.3 g/dL 3.5-5.5 Phosphorus, Serum 2.7 mg/dL 2.5-4.5 Hepatic Function Panel (7) - 08/16/16 17:40 Protein, Total, Serum 7.6 g/dL 6.0-8.5 Bilirubin, Total 0.3 mg/dL 0.0-1.2 Alkaline Phosphatase, S 177 IU/L 39-117 AST (SGOT) 21 IU/L 0-40 ALT (SGPT) 7 IU/L 0-32 Bilirubin, Direct 0.12 mg/dL 0.00-0.40 PTH, Intact - 08/16/16 17:40 PTH, Intact 79 pg/mL 15-65 HBV Real-Time PCR, Quant - 09/17/16 13:49 HBV IU/mL 10 IU/mL log10 HBV IU/mL 1.000 [id number]/mL Test Information: Comment Folate (Folic Acid), Serum - 09/17/16 13:49 Folate (Folic Acid), Serum 2.1 ng/mL >3.0 Vitamin B12 - 09/17/16 13:49 Vitamin B12 285 pg/mL 211-946 PTH, Intact - 09/17/16 13:49 PTH, Intact 87 pg/mL 15-65 Comp. Metabolic Panel (14) - 09/28/16 09:20 Glucose, Serum 110 mg/dL 65-99 BUN 14 mg/dL 6-24 Creatinine, Serum 1.34 mg/dL 0.57-1.00 eGFR If NonAfricn Am 44 mL/min/1.73 >59 eGFR If Africn Am 51 mL/min/1.73 >59 BUN/Creatinine Ratio 10 9-23 Sodium, Serum 140 mmol/L 134-144 Potassium, Serum 3.8 mmol/L 3.5-5.2 Chloride, Serum 100 mmol/L 96-106 Carbon Dioxide, Total 22 mmol/L 18-29 Calcium, Serum 9.6 mg/dL 8.7-10.2 Protein, Total, Serum 6.9 g/dL 6.0-8.5 Albumin, Serum 3.9 g/dL 3.5-5.5 Globulin, Total 3.0 g/dL 1.5-4.5 A/G Ratio 1.3 1.1-2.5 Bilirubin, Total 0.2 mg/dL 0.0-1.2 Alkaline Phosphatase, S 141 IU/L 39-117 AST (SGOT) 9 IU/L 0-40 ALT (SGPT) <5 IU/L 0-32 HBV Real-Time PCR, Quant - 09/28/16 09:20 HBV IU/mL TNP IU/mL Test Information: Comment TSH - 09/28/16 09:20 TSH 46.670 uIU/mL 0.450-4.500 PTH, Intact - 09/28/16 09:20 PTH, Intact 24 pg/mL 15-65 Request Problem - 09/28/16 09:20 Request Problem TNP TSH - 11/23/16 10:41 TSH 3.820 uIU/mL 0.450-4.500 Folate (Folic Acid), Serum - 01/08/17 09:06 Folate (Folic Acid), Serum 2.4 ng/mL >3.0 Comp. Metabolic Panel (14) - 01/17/17 09:00 Glucose, Serum 94 mg/dL 65-99 BUN 17 mg/dL 6-24 Creatinine, Serum 1.47 mg/dL 0.57-1.00 eGFR If NonAfricn Am 39 mL/min/1.73 >59 eGFR If Africn Am 45 mL/min/1.73 >59 BUN/Creatinine Ratio 12 9-23 Sodium, Serum 141 mmol/L 134-144 Potassium, Serum 4.6 mmol/L 3.5-5.2 Chloride, Serum 101 mmol/L 96-106 Carbon Dioxide, Total 22 mmol/L 18-29 Calcium, Serum 9.0 mg/dL 8.7-10.2 Protein, Total, Serum 7.4 g/dL 6.0-8.5 Albumin, Serum 3.9 g/dL 3.5-5.5 Globulin, Total 3.5 g/dL 1.5-4.5 A/G Ratio 1.1 1.2-2.2 Bilirubin, Total 0.3 mg/dL 0.0-1.2 Alkaline Phosphatase, S 148 IU/L 39-117 AST (SGOT) 15 IU/L 0-40 ALT (SGPT) 5 IU/L 0-32 Insulin - 01/17/17 09:00 Insulin 30.0 uIU/mL 2.6-24.9 TSH - 02/06/17 11:54 TSH 1.610 uIU/mL 0.450-4.500 Hep B Surface Ab - 02/06/17 11:54 Hep B Surface Ab, Qual Non Reactive Comp. Metabolic Panel (14) - 03/13/17 09:50 Glucose, Serum 111 mg/dL 65-99 BUN 31 mg/dL 6-24 Creatinine, Serum 1.80 mg/dL 0.57-1.00 eGFR If NonAfricn Am 31 mL/min/1.73 >59 eGFR If Africn Am 35 mL/min/1.73 >59 BUN/Creatinine Ratio 17 9-23 Sodium, Serum 138 mmol/L 134-144 Potassium, Serum 5.3 mmol/L 3.5-5.2 Chloride, Serum 100 mmol/L 96-106 Carbon Dioxide, Total 18 mmol/L 18-29 Calcium, Serum 9.6 mg/dL 8.7-10.2 Protein, Total, Serum 7.5 g/dL 6.0-8.5 Albumin, Serum 4.1 g/dL 3.5-5.5 Globulin, Total 3.4 g/dL 1.5-4.5 A/G Ratio 1.2 1.2-2.2 Bilirubin, Total <0.2 mg/dL 0.0-1.2 Alkaline Phosphatase, S 148 IU/L 39-117 AST (SGOT) 12 IU/L 0-40 ALT (SGPT) 7 IU/L 0-32 Folate (Folic Acid), Serum - 03/13/17 09:50 Folate (Folic Acid), Serum >20.0 ng/mL >3.0 HBsAb Quant HBIG Assessment - 03/13/17 09:50 HBsAb Quant HBIG Assessment 5.6 mIU/mL Insulin - 03/13/17 09:50 Insulin 269.9 uIU/mL 2.6-24.9 Insulin - 03/18/17 10:34 Insulin 28.3 uIU/mL 2.6-24.9 CBC+Platelet+Hem Review - 05/03/17 14:34 WBC 6.6 x10E3/uL 3.4-10.8 RBC 4.65 x10E6/uL 3.77-5.28 Hemoglobin 15.2 g/dL 11.1-15.9 Hematocrit 45.4 % 34.0-46.6 MCV 98 fL 79-97 MCH 32.7 pg 26.6-33.0 MCHC 33.5 g/dL 31.5-35.7 RDW 13.9 % 12.3-15.4 Platelets 240 x10E3/uL 150-379 Neutrophils 68 % Lymphs 25 % Monocytes 6 % Eos 1 % Basos 0 % Neutrophils Absolute 4.5 X10E3/uL 1.4-7.0 Lymphs (Absolute) 1.6 X10E3/uL 0.7-3.1 Monocytes(Absolute) 0.4 X10E3/uL 0.1-0.9 Eos (Absolute Value) 0.1 X10E3/uL 0.0-0.4 Baso(Absolute) 0.0 X10E3/uL 0.0-0.2 Differential Comment Note: RBC Comment Note: Normal Platelet Comment Note: Adequate Comp. Metabolic Panel (14) - 05/03/17 14:34 Glucose, Serum 104 mg/dL 65-99 BUN 10 mg/dL 6-24 Creatinine, Serum 1.30 mg/dL 0.57-1.00 eGFR If NonAfricn Am 45 mL/min/1.73 >59 eGFR If Africn Am 52 mL/min/1.73 >59 BUN/Creatinine Ratio 8 9-23 Sodium, Serum 138 mmol/L 134-144 Potassium, Serum 4.1 mmol/L 3.5-5.2 Chloride, Serum 98 mmol/L 96-106 Carbon Dioxide, Total 23 mmol/L 18-29 Calcium, Serum 9.1 mg/dL 8.7-10.2 Protein, Total, Serum 7.3 g/dL 6.0-8.5 Albumin, Serum 3.8 g/dL 3.5-5.5 Globulin, Total 3.5 g/dL 1.5-4.5 A/G Ratio 1.1 1.2-2.2 Bilirubin, Total 0.2 mg/dL 0.0-1.2 Alkaline Phosphatase, S 139 IU/L 39-117 AST (SGOT) 14 IU/L 0-40 ALT (SGPT) 5 IU/L 0-32 Urinalysis, Complete - 05/03/17 14:34 Specific [place] 1.016 1.005-1.030 pH 6.0 5.0-7.5 Urine-Color Yellow Yellow Appearance Clear Clear WBC Esterase Negative Negative Protein Trace Negative/Trace Glucose Negative Negative Ketones Negative Negative Occult Blood Negative Negative Bilirubin Negative Negative Urobilinogen,Semi-Qn 1.0 mg/dL 0.2-1.0 Nitrite, Urine Negative Negative Microscopic Examination Comment Microscopic Examination See below: Microscopic Examination - 05/03/17 14:34 WBC 0-5 /hpf 0 - 5 RBC 0-2 /hpf 0 - 2 Epithelial Cells (non renal) >10 /hpf 0 - 10 Mucus Threads Present Not Estab. Bacteria Moderate None seen/Few Prot+CreatU (Random) - 05/03/17 14:34 Creatinine, Urine 123.5 mg/dL Not Estab. Protein,Total,Urine 48.6 mg/dL Not Estab. Protein/Creat Ratio 394 mg/g creat 0-200 CBC w/ MANUAL DIFF - 05/03/17 14:34 WBC 6.6 x10E3/uL 3.4-10.8 RBC 4.65 x10E6/uL 3.77-5.28 Hemoglobin 15.2 g/dL 11.1-15.9 Hematocrit 45.4 % 34.0-46.6 MCV 98 fL 79-97 MCH 32.7 pg 26.6-33.0 MCHC 33.5 g/dL 31.5-35.7 RDW 13.9 % 12.3-15.4 Platelets 240 x10E3/uL 150-379 Neutrophils 68 % NRG Lymphs 25 % NRG Monocytes 6 % NRG Eos 1 % NRG Basos 0 % NRG Neutrophils Absolute 4.5 X10E3/uL 1.4-7.0 Lymphs (Absolute) 1.6 X10E3/uL 0.7-3.1 Monocytes(Absolute) 0.4 X10E3/uL 0.1-0.9 Eos (Absolute Value) 0.1 X10E3/uL 0.0-0.4 Baso(Absolute) 0.0 X10E3/uL 0.0-0.2 Differential Comment Note: NRG RBC Comment Note: Normal Platelet Comment Note: Adequate URIC ACID, SERUM - 07/10/17 09:56 URIC ACID 4.3 mg/dL 2.5-7.0 CBC w/MANUAL DIFF - 07/10/17 09:56 WHITE BLOOD CELL COUNT 8.9 Thousand/uL 3.8-10.8 RED BLOOD CELL COUNT 4.89 Million/uL 3.80-5.10 HEMOGLOBIN 15.3 g/dL 11.7-15.5 HEMATOCRIT 46.3 % 35.0-45.0 MCV 94.7 fL 80.0-100.0 MCH 31.3 pg 27.0-33.0 MCHC 33.0 g/dL 32.0-36.0 RDW 13.2 % 11.0-15.0 PLATELET COUNT 217 Thousand/uL 140-400 MPV 11.3 fL 7.5-12.5 COMMENT(S) NRG TSH - 07/24/17 10:42 TSH 3.93 mIU/L 0.40-4.50 INSULIN LEVEL - 07/24/17 10:42 INSULIN 38.8 uIU/mL 2.0-19.6 Capillary blood glucose measurement by glucometer (mass/volume) [...] urinalysis with reflex to culture NO NRG CRP - 03/03/18 17:26 C-REACTIVE PROTEIN 20.6 mg/L <8.0 Complete blood count (CBC) with automated white blood cell (WBC) differential - 03/16/18 12:42 Blood leukocytes automated count (number/volume) 12.6 10*3/uL 4.3-11.0 Blood erythrocytes automated count (number/volume) 4.75 10*6/uL 4.35-5.85 Venous blood hemoglobin measurement (mass/volume) 14.6 g/dL 11.5-16.0 Blood hematocrit (volume fraction) 44 % 35-52 Automated erythrocyte mean corpuscular volume 92 [foz_us] 80-99 Automated erythrocyte mean corpuscular hemoglobin (mass per erythrocyte) 31 pg 25-34 Automated erythrocyte mean corpuscular hemoglobin concentration measurement ( mass/volume) 34 g/dL 32-36 Automated erythrocyte distribution width ratio 15.2 % 10.0-14.5 Automated blood platelet count (count/volume) 236 10*3/uL 130-400 Automated blood platelet mean volume measurement 10.5 [foz_us] 7.4-10.4 Automated blood neutrophils/100 leukocytes 68 % 42-75 Automated blood lymphocytes/100 leukocytes 20 % 12-44 Blood monocytes/100 leukocytes 10 % 0-12 Automated blood eosinophils/100 leukocytes 1 % 0-10 Automated blood basophils/100 leukocytes 0 % 0-10 Blood neutrophils automated count (number/volume) 8.6 10*3 1.8-7.8 Blood lymphocytes automated count (number/volume) 2.5 10*3 1.0-4.0 Blood monocytes automated count (number/volume) 1.3 10*3 0.0-1.0 Automated eosinophil count 0.2 10*3/uL 0.0-0.3 Automated blood basophil count (count/volume) 0.0 10*3/uL 0.0-0.1 Encounters ACCT No. Visit Date/Time Discharge Status Pt. Type Provider Facility Loc./Unit Complaint [id number] 12/16/2014 09:10:00 12/16/2014 23:59:59 CLS Outpatient 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 APRN [id number] 11/17/2014 15:34:00 11/17/2014 23:59:59 CLS Outpatient 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 APRN [id number] 11/12/2014 09:35:00 11/12/2014 23:59:59 CLS Outpatient BILLY LAWRENCE APRN [id number] 09/30/2014 14:17:00 09/30/2014 23:59:59 CLS Outpatient SACHA PITT APRN [id number] 09/09/2014 10:51:00 09/09/2014 23:59:59 CLS Outpatient 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 APRN [id number] 08/19/2014 10:49:00 08/19/2014 23:59:59 CLS Outpatient 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 APRN [id number] 08/17/2014 09:34:00 08/17/2014 23:59:59 CLS Outpatient BILLY LAWRENCE APRN [id number] 08/17/2014 09:34:00 08/17/2014 23:59:59 CLS Outpatient BILLY LAWRENCE APRN [id number] 08/11/2014 10:47:00 08/11/2014 23:59:59 CLS Outpatient CRISTIANE EASTON APRN [id number] 08/05/2014 13:01:00 08/05/2014 23:59:59 CLS Outpatient CRISTIANE EASTON APRN [id number] 06/21/2014 09:59:00 06/21/2014 23:59:59 CLS Outpatient TAYLOR CARVAJAL MD [id number] 06/10/2014 10:03:00 06/10/2014 23:59:59 CLS Outpatient BILLY LAWRENCE APRN [id number] 05/18/2014 09:35:00 05/18/2014 23:59:59 CLS Outpatient BILLY LAWRENCE APRN [id number] 04/12/2014 10:40:00 04/12/2014 23:59:59 CLS Outpatient TAYLOR CARVAJAL MD [id number] 02/16/2014 10:27:00 02/16/2014 23:59:59 CLS Outpatient BILLY LAWRENCE APRN [id number] 02/16/2014 10:27:00 02/16/2014 23:59:59 CLS Outpatient BILLY LAWRENCE APRN [id number] 01/29/2014 14:00:00 01/29/2014 23:59:59 CLS Outpatient TAYLOR CARVAJAL MD [id number] 11/17/2013 10:05:00 11/17/2013 23:59:59 CLS Outpatient KARMEN ESPINOSA APRN [id number] 11/17/2013 10:05:00 11/17/2013 23:59:59 CLS Outpatient KARMEN ESPINOSA APRN [id number] 10/09/2013 14:51:00 10/09/2013 23:59:59 CLS Outpatient TAYLOR CARVAJAL MD [id number] 10/09/2013 14:51:00 10/09/2013 23:59:59 CLS Outpatient TAYLOR CARVAJAL MD [id number] 09/10/2013 14:33:00 09/10/2013 23:59:59 CLS Outpatient TONE IGNACIO DO [id number] 07/07/2013 14:17:00 07/07/2013 23:59:59 CLS Outpatient KARMEN ESPINOSA APRN [id number] 06/22/2013 09:21:00 06/22/2013 23:59:59 CLS Outpatient TONE IGNACIO DO [id number] 05/28/2013 11:49:00 05/28/2013 23:59:59 CLS Outpatient TONE IGNACIO DO [id number] 04/14/2013 08:54:00 04/14/2013 23:59:59 CLS Outpatient FRANCISCA CUNNINGHAM KARMEN D [id number] 04/14/2013 08:54:00 04/14/2013 23:59:59 CLS Outpatient FRANCISCA CUNNINGHAM KARMEN D [id number] 11/28/2012 10:48:00 11/28/2012 23:59:59 CLS Outpatient KIRA ESPINOSA APRNBETH Zana [id number] 11/24/2012 09:54:00 11/24/2012 23:59:59 CLS Outpatient TONE IGNACIO DO David [id number] 08/04/2012 09:54:00 08/04/2012 23:59:59 CLS Outpatient TONE IGNACIO DO David [id number] 07/04/2012 00:00:00 07/04/2012 23:59:59 CLS Outpatient FRANCISCA CUNNINGHAM KARMEN D [id number] 06/06/2012 12:52:00 06/06/2012 23:59:59 CLS Outpatient FRANCISCA CUNNINGHAM KARMEN D [id number] 09/20/2011 08:50:00 09/20/2011 23:59:59 CLS Outpatient TONE IGNACIO DO David [id number] 04/08/2013 11:04:00 Document Registration [id number] 02/19/2013 14:04:00 Document Registration [id number] 02/19/2013 14:04:00 Document Registration [id number] 02/10/2013 10:27:00 Document Registration [id number] 01/15/2013 14:36:00 Document Registration [id number] 01/15/2013 14:36:00 Document Registration [id number] 01/12/2013 10:30:00 Document Registration [id number] 07/18/2016 10:05:00 Document Registration [id number] 11/24/2016 08:35:00 Document Registration [id number] 05/06/2017 22:06:00 Document Registration [id number] 03/15/2017 15:09:00 Document Registration [id number] 03/14/2017 14:09:00 Document Registration [id number] 07/20/2016 05:05:00 Document Registration [id number] 12/03/2017 14:59:51 Document Registration [id number] 02/07/2017 11:08:00 Document Registration [id number] 08/17/2016 13:05:00 Document Registration [id number] 01/18/2017 11:08:00 Document Registration [id number] 09/27/2017 11:52:00 09/27/2017 18:27:00 DIS Emergency JIMBO RODRIGUEZ [facility] ER HIGH BP [id number] 05/17/2017 12:34:00 05/17/2017 23:59:59 CLS Outpatient FABYSERAFIN MADDOX PSYCH ARNP [facility] RAD R42 [id number] 03/28/2017 10:08:00 03/28/2017 23:59:59 CLS Preadmit GEOVANNI WOLFE MD [facility] RAD REFLUX [id number] 11/23/2016 10:58:00 11/23/2016 23:59:59 CLS Outpatient FABY, SERAFIN PSYCH ARNP [facility] RAD SCREENING [id number] 11/15/2015 09:36:00 11/15/2015 23:59:59 CLS Outpatient RADHA HOBBSNDA PSYCH ARNP [facility] RAD SCREENING [id number] 01/08/2015 19:01:00 01/08/2015 19:24:00 DIS Emergency MALIA PIÑA MD [facility] ER STITCHES CAME OUT L ARM [id number] 08/11/2014 09:53:00 08/11/2014 23:59:59 CLS Outpatient CRISTIANE EASTON APRN [facility] RAD ROUTINE [id number] 03/16/2018 12:47:00 Document Registration [id number] 10/26/2014 12:15:00 Document Registration [id number] 10/26/2014 11:40:00 Document Registration [id number] 10/21/2014 06:14:00 Document Registration [id number] 04/13/2012 08:32:00 Document Registration [id number] 03/13/2012 10:22:00 Document Registration [id number] 01/17/2011 07:34:00 Document Registration [id number] 09/11/2010 14:52:00 Document Registration [id number] 10/08/2016 10:06:00 Document Registration [id number] 03/12/2018 11:40:00 03/12/2018 23:59:59 [facility] Outpatient 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 APRN [facility] [id number] 03/03/2018 16:40:00 Document Registration [id number] 07/24/2017 09:40:00 Document Registration [id number] 07/10/2017 09:20:00 Document Registration [id number] 05/03/2017 14:00:00 Document Registration [id number] 05/12/2016 13:05:00 Document Registration [id number] 01/09/2015 02:10:32 ACT Document Registration [id number] 03/19/2017 10:08:00 Document Registration [id number] 09/19/2016 13:06:00 Document Registration [id number] 01/09/2017 10:10:00 Document Registration
== END 2018-03-16 13:54 | disposition home or self-care (01) ==
LOC: EDUNIT# 11:40 → ER 11:42
DX: J06.9 Acute upper respiratory infection, unspecified (principal); I10 Essential (primary) hypertension; E78.00 Pure hypercholesterolemia, unspecified; E03.9 Hypothyroidism, unspecified; F17.200 Nicotine dependence, unspecified, uncomplicated; Z91.09 Other allergy status, other than to drugs and biological substances; Z90.710 Acquired absence of both cervix and uterus
CPT/HCPCS: 36415; 71045; 85025; 94640

== ENCOUNTER → 2019-02-03 | Outpatient (CLI) | payer MEDICARE ==
--- NOTE | 2019-02-03 13:56 | Diagnostic Imaging Report ---
INDICATION: Postmenopausal screening for osteoporosis. COMPARISON: None. FINDINGS: AP Spine L1-L4: [BMD (g/cm2): 1.283] [T-Score: 0.7] [Z-Score: 1.0] [BMD Previous: N/A] [BMD % Change: N/A] LT Hip Neck: [BMD (g/cm2): 1.058] [T-Score: 0.1] [Z-Score: 0.8] LT Hip Total: [BMD (g/cm2):1.145] [T-Score:1.1] [Z-Score: 1.4] [BMD Previous: N/A] [BMD % Change: N/A] RT Hip Neck: [BMD (g/cm2):1.008] [T-Score:-0.2] [Z-Score:0.5] RT Hip Total: [BMD (g/cm2):1.060] [T-score:0.4] [Z-Score:0.7] [BMD Previous:N/A] [BMD % Change:N/A] *Indicates significant change from prior examination based on 95% confidence level. World Health Organization criteria for BMD interpretation classify patients as Normal (T-score at or above -1.0), Osteopenic (T-score between -1.0 and -2.5) or Osteoporotic (T-score at or below -2.5). LIMITATIONS AND MODIFICATION: None. FRACTURE RISK (FRAX SCORE): The ten year probability of (%): Major Osteoporotic Fracture: [N/A] Hip Fracture: [N/A] IMPRESSION: 1. Normal bone mineral density. 2. Baseline examination. 3. See below National Osteoporosis Foundation guidelines on when to potentially initiate pharmacologic therapy. Based on the National Osteoporosis Foundation Guidelines, pharmacologic treatment should be initiated in any of the following, unless clinical conditions suggest otherwise: * Any patient with prior fragility fracture of the hip or vertebrae. A spine fracture indicates 5X risk for subsequent spine fracture and 2X risk for subsequent hip fracture. * Osteoporosis (T-score <-2.5). * Postmenopausal women and men age 50 and older with low bone mass/osteopenia (T-score between -1.0 and -2.5) by DXA and 10-year major osteoporotic fracture greater than 20% or a 10-year probability of hip fracture greater than 3%. These fracture risks are supplied above in the FRAX score, if applicable. * Clinician judgement and/or patient preferences may indicate treatment for people with 10-year fracture probabilities above or below these levels. Dictated by: Dictated on workstation # [id number]
== END ==
LOC: RAD 10:26
PROVIDERS: ATTEND Nurse Practitioner Community Health
DX: M81.0 Age-related osteoporosis without current pathological fracture (principal); Z78.0 Asymptomatic menopausal state
CPT/HCPCS: 77080

== ENCOUNTER → 2019-02-23 | Outpatient (CLI) | payer MEDICARE | LOC: CARD 09:19 | PROVIDERS: ATTEND Internal Medicine Cardiovascular Disease | DX: I10 Essential (primary) hypertension (principal); E78.2 Mixed hyperlipidemia; B18.1 Chronic viral hepatitis B without delta-agent; I07.1 Rheumatic tricuspid insufficiency | CPT/HCPCS: 93306 ==

== ENCOUNTER 2019-04-11 10:51 | Emergency (ER) | payer MEDICARE ==
[~2019-04-11] VITALS: Ht 160 cm; Wt 90.7 kg
--- NOTE | 2019-04-11 11:02 | NUR ---
PT HERE BY SELF. ALERT GCS 15. PT RELATES " I GOT A KNOT THERE" PT POINTS TO AREA OF LEFT KNEE ANTERIALLY AND LEFT POSTERIOR KNEE ALSO. 2 DIFFERENT AREAS. PT REMEMBERS RECENT INJURY 2 WEEKS AGO FELL OFF STEP STOOL AND BEEN HAVING PAIN SINCE THE FALL. NEG HIT HEAD AND NEG LOC. PT RELATES " HURTS TO WALK". PAIN RATING 8. ON EXAM 2 DIFFERENT SMALL AREAS OF PUFFY SWELLING NOTED TO BOTH PAIN AREAS LEFT KNEE ANTERIALLY AND POSTERIORY. BOTH LEGS EQUALLY SWOLLEN AND NO SIGHNS OF DVT NOTED.POSITIVE PULSE AND SENSATION LEFT FOOT.PT DENIES DYSPNEA AND NO ACUTE SIGHNS OF DYSPNEA NOTED. LUNGS EQUAL TA BILATERALLY.DONE [facility] PT 1109.
--- NOTE | 2019-04-11 11:51 | ED Lower Extremity ---
General Chief Complaint: Lower Extremity Stated Complaint: L LEG PAIN Nursing Triage Note: LEFT KNEE PAIN BOTH ANTERIALLY AND POSTERIALLY. H/O RECENT INJURY Nursing Sepsis Screen: No Definite Risk Source: patient Exam Limitations: no limitations History of Present Illness Date Seen by Provider: Apr 11, 2019 Time Seen by Provider: 11:51 Initial Comments 59-year-old female patient presents to the emergency department with complaints of left knee pain after twisting the knee while getting out of a step stool approximately 2 weeks ago. She does report mild swelling. Pain radiates to the left ankle. Denies numbness or tingling. Location Injury Occurred: home Onset: other (2 weeks) Pain/Injury Location: left leg, left knee Method of Injury: twisted Modifying Factors: Worse With Movement Allergies and Home Medications Allergies Uncoded Allergies: DYE (Allergy, Unknown, 10/26/14) Home Medications Alprazolam 1 Mg Tablet, 1 PO PRN, (Reported) Aripiprazole 2 Mg Tablet, 2 MG PO DAILY, (Reported) Cholecalciferol (Vitamin D3) 2,000 Unit Capsule, 2,000 UNIT PO DAILY, (Reported) Levothyroxine Sodium 175 Mcg Tablet, 100 MCG PO DAILY, (Reported) Lisinopril/Hydrochlorothiazide 1 Tab Tablet, 1 TAB PO DAILY, (Reported) Meloxicam 7.5 Mg Tablet, 15 MG PO DAILY, (Reported) Methylphenidate Hcl 5 Mg Tablet, 5 MG PO BID, (Reported) Aurora-3/Dha/Epa/Fish Oil 1 Each Capsule.dr, 1 EACH PO TID, (Reported) Pantoprazole Sod 40 Mg Tab, 40 MG PO DAILY, (Reported) Potassium Chloride 10 Meq Capsule.sa, 10 MEQ PO DAILY, (Reported) Pravastatin Sodium 80 Mg Tablet, 40 MG PO DAILY, (Reported) Quetiapine Fumarate 100 Mg Tablet, 100 MG PO HS, (Reported) Trazodone Hcl 150 Mg Tablet, 150 MG PO DAILY, (Reported) Trimethoprim/Sulfamethoxazole 1 Ea Tablet, 1 EA PO BID Prescribed by: MALIA PIÑA on 01/08/151920 Venlafaxine HCl 75 Mg Cap.er.24h, 75 MG PO DAILY, (Reported) Venlafaxine Hcl 150 Mg Cap.sr.24h, 1 EACH PO DAILY, (Reported) [Abilify] , 5 MG PO DAILY, (Reported) [Albuterol Sulfate ] , 90 MCG IH Q6H, (Reported) [Estrogen Cream] , 0.625 MG VG DAILY, (Reported) Patient Home Medication List Home Medication List Reviewed: Yes Review of Systems Constitutional: no symptoms reported Respiratory: no symptoms reported Cardiovascular: no symptoms reported Musculoskeletal: No back pain; joint pain, joint swelling (left knee); No muscle pain, No neck pain Skin: No change in color, No lesions, No lumps, No rash Psychiatric/Neurological: Denies Numbness, Denies Paresthesia, Denies Tingling, Denies Weakness All Other Systems Reviewed Negative Unless Noted: Yes (Negative excepted noted.) Past Zwruimk-Ntbdop-Axzjpc Hx Past Med/Social Hx: Reviewed Nursing Past Med/Soc Hx Patient Social History Alcohol Use: Denies Use Recreational Drug Use: Yes (" POT") Smoking Status: Current Everyday Smoker 2nd Hand Smoke Exposure: No Recent Foreign Travel: No Contact w/Someone Who Travel: No Recent Infectious Disease Expo: No Recent Hopitalizations: No Physical Abuse: No Sexual Abuse: No Immunizations Up To Date Date of Influenza Vaccine: Jul 26, 2014 Past Medical History Surgeries: Yes (LT ELBOW REPAIR) Hysterectomy Respiratory: Yes (HX OF BRONCHITIS) Cardiac: Yes High Cholesterol, Hypertension Neurological: No PATIENT COMPANION History: Hysterectomy Gastrointestinal: No Musculoskeletal: No Endocrine: Yes (PARTIAL THYROID) Hypothyroidsim Family Medical History Reviewed Nursing Family Hx No Pertinent Family Hx Physical Exam Vital Signs Vital Signs - First Documented 04/11/19 11:02 Temp 97.5 Pulse 60 Resp 20 B/P (MAP) 94/63 (73) Pulse Ox 96 O2 Delivery Room Air Capillary Refill : Less Than 3 Seconds Height, Weight, BMI Height: 5'3.00" Weight: 200lbs. oz. 90.041619fm; 30.89 BMI Method:Stated General Appearance: WD/WN, no apparent distress Cardiovascular: normal peripheral pulses, regular rate, rhythm, no edema, no murmur Respiratory: lungs clear, normal breath sounds, no respiratory distress, no accessory muscle use Hips: bilateral hip non-tender, bilateral hip normal inspection, bilateral hip normal range of motion, bilateral hip no evidence of injury Legs: right leg non-tender; bilateral leg normal inspection, bilateral leg normal range of motion, bilateral leg no evidence of injury; left leg bone t enderness (lateral tibial tendon), left leg pain, left leg soft tissue tenderness (lateral distal leg) Knees: right knee non-tender, right knee normal inspection, right knee normal range of motion, right knee no evidence of injury; left knee bone tenderness (lateral left knee), left knee joint effusion, left knee pain, left knee soft tissue tenderness, left knee swelling (mild swelling) Ankles: right ankle non-tender; bilateral ankle normal inspection, bilateral a nkle normal range of motion, bilateral ankle no evidence of injury; left ankle bone tenderness (left lateral), left ankle pain, left ankle soft tissue tenderness Feet: bilateral foot non-tender, bilateral foot normal inspection, bilateral foot normal range of motion, bilateral foot no evidence of injury Neurologic/Tendon: normal sensation, normal motor functions, normal tendon functions, responds to pain, no evidence tendon injury Neurologic/Psychiatric: alert, normal mood/affect, oriented x 3 Skin: normal color, warm/dry Progress/Results/Core Measures Results/Orders My Orders Orders - JIMBO TEJEDA Knee, Left, 3 Views (04/11/19 12:00) Ketorolac Injection (Toradol Injection) (04/11/19 12:00) Tibia/Fibula, Left, 2 Views (04/11/19 12:00) Vital Signs/I&O 04/11/19 11:02 Temp 97.5 Pulse 60 Resp 20 B/P (MAP) 94/63 (73) Pulse Ox 96 O2 Delivery Room Air Blood Pressure Mean: 73 Diagnostic Imaging Diagonstic Imaging: Xray Plain Films/CT/US/NM/MRI: knee Comments Date of Exam:04/11/19 KNEE, LEFT, 3 VIEWS INDICATION: Missed last step of step stool two weeks ago. Pain. TECHNIQUE: Three views of the left knee. CORRELATION STUDY: None. FINDINGS: No evidence for acute fracture. Alignment is anatomic. There is joint space narrowing. Prominent marginal osteophyte formation particularly medially. Narrowing of patellofemoral compartment with spurring off both superior and inferior pole of the patella. Suprapatellar joint effusion is present. IMPRESSION: 1. Negative for acute bony abnormality of the knee. Mildly advanced degenerative changes, left knee. Suprapatellar joint effusion. If further assessment is desired, MRI may be of additional benefit. Dictated on workstation # [id number] Reviewed: Reviewed by Me (radiology report reviewed) Diagonstic Imaging: Xray Plain Films/CT/US/NM/MRI: leg Comments Date of Exam:04/11/19 TIBIA/FIBULA, LEFT, 2 VIEWS Indication: Left lower leg pain AP and lateral views of left tibia fibula show no fracture or dislocation. Impression: Negative left tibia fibula. Dictated on workstation # [id number] Reviewed: Reviewed by Me (radiology report reviewed by me) Departure Communication (Admissions) Patient evaluated. X-rays obtained. Patient is driving self home from the emergency department. Toradol 60mg IM 1 dose given with improvement in symptoms. Diagnostic findings discussed with the patient. Left knee vishal wrapped with a 4 inch Vishal bandage. Discharge to home. Impression Primary Impression: Knee pain Qualified Codes: M25.562 - Pain in left knee Additional Impression: Knee effusion, left Disposition: HOME, SELF-CARE Condition: Improved Departure-Patient Inst. Decision time for Depature: 12:36 Referrals: [facility]/ (PCP) Primary Care Physician 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 (Family) Primary Care Physician Patient Instructions: Knee Pain Add. Discharge Instructions: All discharge instructions reviewed with patient and/or family. Voiced understanding. Medications as instructed. Tylenol Extra Strength over-the-co unter as directed for pain. Vishal wrap as instructed. Ice pack as needed for pain and swelling. Avoid walking long distances, standing for long periods of time, and repetitive squatting. Follow-up with your family practitioner as an outpatient if no improvement in symptoms in 7-10 days. Return to the emergency department for worsened symptoms or any other concerns. Scripts Ibuprofen (Ibuprofen) 800 Mg Tablet 800 MG PO Q8H PRN for PAIN, #20 TAB 0 Refills Prov: JIMBO TEJEDA 04/11/19 Prednisone (Prednisone) 20 Mg Tab 40 MG PO DAILY, #10 TAB 0 Refills Prov: JIMBO TEJEDA 04/11/19 JIMBO TEJEDA Apr 11, 2019 11:51
[2019-04-11] MEDS ORDERED: KETOROLAC 60 MG/2 ML VIAL IM STA (12:00)
--- NOTE | 2019-04-11 12:28 | Diagnostic Imaging Report ---
Indication: Left lower leg pain AP and lateral views of left tibia fibula show no fracture or dislocation. Impression: Negative left tibia fibula. Dictated by: Dictated on workstation # [id number]
--- NOTE | 2019-04-11 12:29 | Diagnostic Imaging Report ---
INDICATION: Missed last step of step stool two weeks ago. Pain. TECHNIQUE: Three views of the left knee. CORRELATION STUDY: None. FINDINGS: No evidence for acute fracture. Alignment is anatomic. There is joint space narrowing. Prominent marginal osteophyte formation particularly medially. Narrowing of patellofemoral compartment with spurring off both superior and inferior pole of the patella. Suprapatellar joint effusion is present. IMPRESSION: 1. Negative for acute bony abnormality of the knee. Mildly advanced degenerative changes, left knee. Suprapatellar joint effusion. If further assessment is desired, MRI may be of additional benefit. Dictated by: Dictated on workstation # [id number]
--- NOTE | 2019-04-11 12:39 | NUR ---
pt remains here by self alert gcs 15. pt relates pain decreased " little bit" but remains at 8. bp machine is 110/64 ausc hr 64 reg ausc resp 20 normal recheck temp 97.7 p ox r/a is 97.
[2019-04-11] MEDS ORDERED: IBUP-1780 PO (12:48)
[2019-04-11] MEDS ORDERED: PRD20T PO (12:48)
[2019-04-11 13:08] VITALS: BP 110/64
--- NOTE | 2019-04-11 13:08 | NUR ---
d/c instructions to pt. told to read all papers. scripts fax only. pt left ambulatory by self. pt knows f/u. i went over the handtyped by dr information on the chart. pt had no iv. must have applied laurie bandage to left knee.
== END 2019-04-11 13:08 | disposition home or self-care (01) ==
LOC: EDUNIT# 10:51 → ER 10:52
DX: M25.462 Effusion, left knee (principal); I10 Essential (primary) hypertension; E78.00 Pure hypercholesterolemia, unspecified; E03.9 Hypothyroidism, unspecified; F17.200 Nicotine dependence, unspecified, uncomplicated; Z90.710 Acquired absence of both cervix and uterus; X50.1XXA Overexertion from prolonged static or awkward postures, initial encounter
CPT/HCPCS: 73562; 73590